=== PATIENT | male | born 1955 | race Caucasian/White ===

== ENCOUNTER 2016-12-20 23:29 | Inpatient (IN) ==
[2016-12-20] MEDS ORDERED: 0.9 % Sodium Chloride 500 ML IVC ONE (23:38)
[2016-12-20] MEDS ORDERED: Ondansetron 4 MG/2 ML VIAL IVP ONE (23:39)
[2016-12-20] MEDS ORDERED: *HR* HYDROmorphone (PF) 1 MG/ML SYRINGE IVP ONE (23:39)
--- NOTE | 2016-12-20 23:40 | Emergency Department Note ---
Disposition Clinical Impression: Combative behavior, Mood disorder, Altered mental status Abdominal pain Qualifiers: Abdominal location: generalized Qualified Code(s): R10.84 - Generalized abdominal pain Alcohol intoxication Qualifiers: Complication of substance-induced condition: uncomplicated Qualified Code(s): F10.120 - Alcohol abuse with intoxication, uncomplicated Disposition: Admitted As Inpatient Condition: Fair Time of Disposition: 03:30 Abdominal Pain HPI - General Stated Complaint: ETOH, R knee pain Time Seen by Provider: 12/20/16 23:35 Nursing Notes Reviewed: Yes Vital Signs Reviewed: Yes - History of Present Illness HPI Narrative: 61-year-old male presented initially with abdominal pain, patient was very loud and angry yelling, stating that he is really triggered his pain. Per EMS brought him in, he had not had any pain or complaints he was initially seen at his right leg hurt, and started complaining of abdominal pain 3 minutes prior to ED arrival. The patient has a history of small bowel obstruction on records review. Also multiple psychiatric issues. The patient then was very loud and angry and agitated in the ER, threatening violence and threatening self-harm, he is transported to the psychiatric side, he proceeded to strip naked, call our nurses and staff, threatening violence Pt Subjective Complaint: abdominal pain Location: diffuse Pain Scale: 10 Quality: cramping, stabbing Radiation: none Improves with: nothing Worsens with: nothing Context: other (hx of SBO, drinking) Associated symptoms: Reports: denies other symptoms Treatments prior to arrival: none - Related Data Previous Rx's Medication Instructions Recorded Acetaminophen/Butalbital/Caffe 1 each PO Q6HR PRN 30 Days 10/04/16 [Fioricet] Aspirin 81 mg PO DAILY 30 Days 10/04/16 Chlordiazepoxide [Librium] 25 mg PO QID 7 Days 10/04/16 Folic Acid 1 mg PO DAILY #30 tablet 10/04/16 Gabapentin [Neurontin] 300 mg PO TID #90 capsule 10/04/16 HydrOXYzine Pamoate 25 - 50 mg PO Q6HR PRN #20 capsule 10/04/16 LORazepam [Lorazepam] 2 mg PO Q4H PRN 7 Days 10/04/16 Lipase/Protease/Amylase [Creon Dr 6 each PO TID 30 Days 10/04/16 6,000 Units Capsule] Quetiapine Fumarate [Seroquel] 200 mg PO HS 30 Days 10/04/16 Thiamine (B-1) [Vitamin B-1] 100 mg PO DAILY #30 tablet 10/04/16 Allergies Allergy/AdvReac Type Severity Reaction Status Date / Time No Known Allergies Allergy Verified 10/12/16 03:54 Limitations: ROS unobtainable due to patients medical condition (Agitated and combative, review of systems was not able to be obtained prior) Cardiovascular: Denies: chest pain Gastrointestinal: Reports: abdominal pain Abdominal Pain PMH - Past Medical History Medical history: Reports: COPD, coronary artery disease, CVA, hyperlipidemia, hypertension, myocardial infarction, TIA, other Male Surgical History: Reports: herniorrhaphy, other Psychiatric history: Reports: anxiety, bipolar, depression, previous psychiatric hospitalization - Social History Smoking status: Current every day smoker Alcohol use: Reports: heavy, recent Drug use: Reports: none, cocaine, marijuana, methamphetamine Physical Exam Constitutional: Presents, agitated and combative patient Resp: Tachypneic CTA bilaterally, no resp distress CV: RRR, no m/g/r GI: Multiple postsurgical changes, abdomen is diffusely tender to palpation which is very distractible Back: normal inspection, no tenderness to palpation Neuro: A&O3, no gross motor or sensory deficits bilaterally MSK: normal inspection, bilateral UE and LE with normal ROM Psych: Agitative, aggressive, threatening suicidal ideation. Skin: No rashes, skin warm, dry, intact - General Limitations: altered mental status (Agitated combative) Course Course Narrative: 61 male with abdominal pain complaint, deteriorated rapidly to combativeness anger, is visibly intoxicated, alcohol on breath, patient is yelling and hostile towards staff moved to the behavioral side of the emergency department chest pain workup ordered - Reevaluation(s) Reevaluation #1: B-52 ordered for agitation, patient took off his clothes, was yelling violently at the tach, a pink slip was already ordered by the attending physician Dr. Gutierres, please documentation. Vital Signs Temperature 97.2 F L 12/20/16 23:36 Pulse Rate 106 12/20/16 23:36 Respiratory Rate 18 12/20/16 23:36 Blood Pressure 169/104 12/20/16 23:36 O2 Sat by Pulse Oximetry 99 12/20/16 23:36 Temperature 0 F L 12/21/16 00:05 Pulse Rate 93 12/21/16 03:07 Respiratory Rate 16 12/21/16 03:07 Blood Pressure 131/96 12/21/16 03:07 O2 Sat by Pulse Oximetry 97 12/21/16 03:07 Oxygen Delivery Oxygen Delivery Room Air Abdominal Pain - MDM Narrative Medical decision making narrative: 52-year-old male requiring medical sedation and restraints, both physical and chemical, with a drill Haldol Ativan, and then Geodon this did result in good sedation of the patient, 11 sitter admitted to medicine service for sobriety and then one a evaluation - Lab Data Result diagrams: 12/21/16 01:01 12/21/16 01:01 Lab Results 12/21/16 12/21/16 12/21/16 Range/Units 01:01 01:01 01:01 WBC 5.1 (4.3-11.1) K/mcL RBC 4.74 (4.19-5.50) M/mcL Hgb 11.7 L (12.9-16.9) g/dL Hct 38.6 (37.5-50.1) % MCV 81.4 L (83.0-100.0) fL MCH 24.7 L (28.0-33.3) pg MCHC 30.3 L (31.6-35.5) g/dL RDW 16.9 H (11.5-14.5) % Plt Count 148 (140-400) K/mcL MPV 9.9 (9.4-12.4) fL Immature Gran % 0.2 (0-4) % Seg Neutrophils % 62.5 % Lymphocytes % 30.0 % Monocytes % 5.3 % Eosinophils % 1.6 % Basophils % 0.4 % Neutrophils # 3.2 (1.6-8.9) K/mcL Lymphocytes # 1.5 (0.6-4.6) K/mcL Monocytes # 0.3 (0.0-1.3) K/mcL Eosinophils # 0.1 (0.0-0.6) K/mcL Basophils # 0.0 (0.0-0.2) K/mcL Platelet Estimate Normal (Normal) Immature Plt Fraction 3.0 (1.1-6.1) % Anisocytosis 1+ A (Not Present) PT 11.5 (9.4-12.1) Seconds INR 1.1 APTT 28.6 (26.0-36.0) Seconds Sodium 142 (136-145) mEq/L Potassium 3.2 L (3.5-4.5) mEq/L Chloride 109 (98-109) mEq/L Carbon Dioxide 19 (19-29) mEq/L BUN 16 (8-26) mg/dL Creatinine 0.92 (0.72-1.25) mg/dL Est GFR ( Amer) > 60 (> 60) Est GFR (Non-Af Amer) > 60 (> 60) BUN/Creatinine Ratio 17 (6-26) Glucose 101 H (70-99) mg/dL Calculated Osmolality 295 (280-300) Calcium 8.1 L (8.6-10.8) mg/dL Total Bilirubin 0.4 (0.2-1.2) mg/dL AST 58 H (5-34) Units/L ALT 50 (0-55) Units/L Alkaline Phosphatase 75 (38-126) Units/L Troponin I (0-0.03) ng/mL Serum Total Protein 7.3 (6.0-8.3) g/dL Albumin 3.8 (3.5-5.0) g/dL Globulin 3.5 (2.4-3.5) g/dL Albumin/Globulin Ratio 1.1 (1.1-2.2) Lipase 36 (8-78) Units/L Salicylates (15-30) mg/dL Acetaminophen (10-30) mcg/mL Ethyl Alcohol (0-10) mg/dL 12/21/16 12/21/16 Range/Units 01:01 01:01 WBC (4.3-11.1) K/mcL RBC (4.19-5.50) M/mcL Hgb (12.9-16.9) g/dL Hct (37.5-50.1) % MCV (83.0-100.0) fL MCH (28.0-33.3) pg MCHC (31.6-35.5) g/dL RDW (11.5-14.5) % Plt Count (140-400) K/mcL MPV (9.4-12.4) fL Immature Gran % (0-4) % Seg Neutrophils % % Lymphocytes % % Monocytes % % Eosinophils % % Basophils % % Neutrophils # (1.6-8.9) K/mcL Lymphocytes # (0.6-4.6) K/mcL Monocytes # (0.0-1.3) K/mcL Eosinophils # (0.0-0.6) K/mcL Basophils # (0.0-0.2) K/mcL Platelet Estimate (Normal) Immature Plt Fraction (1.1-6.1) % Anisocytosis (Not Present) PT (9.4-12.1) Seconds INR APTT (26.0-36.0) Seconds Sodium (136-145) mEq/L Potassium (3.5-4.5) mEq/L Chloride (98-109) mEq/L Carbon Dioxide (19-29) mEq/L BUN (8-26) mg/dL Creatinine (0.72-1.25) mg/dL Est GFR ( Amer) (> 60) Est GFR (Non-Af Amer) (> 60) BUN/Creatinine Ratio (6-26) Glucose (70-99) mg/dL Calculated Osmolality (280-300) Calcium (8.6-10.8) mg/dL Total Bilirubin (0.2-1.2) mg/dL AST (5-34) Units/L ALT (0-55) Units/L Alkaline Phosphatase (38-126) Units/L Troponin I 0.01 (0-0.03) ng/mL Serum Total Protein (6.0-8.3) g/dL Albumin (3.5-5.0) g/dL Globulin (2.4-3.5) g/dL Albumin/Globulin Ratio (1.1-2.2) Lipase (8-78) Units/L Salicylates < 5.0 L (15-30) mg/dL Acetaminophen < 1.0 L (10-30) mcg/mL Ethyl Alcohol 279 H (0-10) mg/dL Critical Care Time Critical Care Time: Yes Total Critical Care Time: 40 Attestation: Critical care performed: Time is exclusive of separately billable procedures. Time includes: direct patient care, patient reassessment, coordination of patient care, interpretation of data (laboratory data, radiology data, and respiratory data), review of patient's medical records, medical consultation and documentation of patient care. Procedures included in critical care time: Procedures excluded from critical care time: Attestation Statement - Attestation Attestation: I, Pito Gutierres MD, personally performed a history and physical exam of the patient and discussed their management with the resident. I reviewed the resident's note and agree with the documented findings, medical decision making , and plan of care. 61-year-old male presents to the emergency department by EMS with a complaint of sudden onset of severe epigastric abdominal pain shortly prior to arrival. Patient had been drinking alcohol. This patient is well known and is seen here frequently. On arrival patient is yelling and screaming and uncooperative. Odor of alcohol on breath and he appears intoxicated. Patient later became more abusive and uncooperative and threatening staff. Patient also making suicidal statements and threats. On examination patient is a well-developed well-nourished male who appears intoxicated. He is awake and alert. No cyanosis or diaphoresis. Chest is nontender to palpation. Breath sounds are equal bilaterally. Heart regular with a mild tachycardia. Abdomen soft with normal bowel sounds. Epigastric tenderness. Labs reviewed and unremarkable other then alcohol level of 279. Troponin normal. No acute changes on EKG. Obstruction series showed a nonspecific nonobstructive bowel gas pattern. Patient had to be physically restrained and received chemical sedation. The hospitalist, Dr. Carranza, was consulted and accepted admission of the patient.
[2016-12-21] MEDS ORDERED: *HR* LORazepam 2 MG/ML VIAL ONE (00:02)
[2016-12-21] MEDS ORDERED: *HR* LORazepam 2 MG/ML VIAL IM ONE (00:02)
[2016-12-21] MEDS ORDERED: Haloperidol Lactate 5 MG/ML VIAL ONE (00:02)
[2016-12-21] MEDS ORDERED: Haloperidol Lactate 5 MG/ML VIAL IM ONE (00:02)
[2016-12-21] MEDS ORDERED: Ziprasidone injection 20 MG/ML VIAL IM ONE ×2 (00:19→00:21)
[2016-12-21 01:09] LABS: Basophils % 0.4 %; Eosinophils # 0.1 K/mcL (0.0-0.6); Eosinophils % 1.6 %; Hematocrit 38.6 % (37.5-50.1); Hemoglobin 11.7 g/dL (12.9-16.9); Immature Granulocytes % 0.2 % (0-4); Lymphocytes # 1.5 K/mcL (0.6-4.6); Mean Corpuscular HGB Conc 30.3 g/dL (31.6-35.5); Mean Corpuscular Hemoglobin 24.7 pg (28.0-33.3); Mean Corpuscular Volume 81.4 fL (83.0-100.0); Mean Platelet Volume 9.9 fL (9.4-12.4); Monocytes # 0.3 K/mcL (0.0-1.3); Monocytes % 5.3 %; Neutrophils # 3.2 K/mcL (1.6-8.9); Platelet Count 148 K/mcL (140-400); Red Blood Count 4.74 M/mcL (4.19-5.50); Red Cell Distribution Width 16.9 % (11.5-14.5); Segmented Neutrophils % 62.5 %
[2016-12-21 01:16] LABS: INR 1.1; Prothrombin Time 11.5 Seconds (9.4-12.1)
[2016-12-21 01:19] LABS: Activated Partial Thrombo Time 28.6 Seconds (26.0-36.0)
[2016-12-21 01:26] LABS: Acetaminophen < 1.0 mcg/mL (10-30); Alanine Aminotransferase 50 Units/L (0-55); Albumin 3.8 g/dL (3.5-5.0); Albumin/Globulin Ratio 1.1 (1.1-2.2); Alkaline Phosphatase 75 Units/L (38-126); Aspartate Amino Transferase 58 Units/L (5-34); BUN/Creatinine Ratio 17 (6-26); Bilirubin,Total 0.4 mg/dL (0.2-1.2); Blood Urea Nitrogen 16 mg/dL (8-26); Calcium 8.1 mg/dL (8.6-10.8); Carbon Dioxide 19 mEq/L (19-29); Chloride 109 mEq/L (98-109); Ethanol 279 mg/dL (0-10); Globulin 3.5 g/dL (2.4-3.5); Glucose 101 mg/dL (70-99); Lipase 36 Units/L (8-78); Osmolality,Calculated 295 (280-300); Potassium 3.2 mEq/L (3.5-4.5); Salicylate < 5.0 mg/dL (15-30); Sodium 142 mEq/L (136-145); Total Protein 7.3 g/dL (6.0-8.3); eGFR For African Americans > 60 (> 60); eGFR For Non-African Americans > 60 (> 60)
[2016-12-21 01:30] LABS: Anisocytosis 1+ (Not Present)
[2016-12-21 01:32] LABS: Platelet Estimate Normal (Normal)
[2016-12-21] MEDS ORDERED: *HR* LORazepam 2 MG/ML VIAL IVP PRN (04:57)
[2016-12-21] MEDS ORDERED: Benzonatate 100 MG CAPSULE PO PRN (04:57)
[2016-12-21] MEDS ORDERED: Ipratropium/Albuterol Neb 3 ML IH PRN (04:57)
[2016-12-21] MEDS ORDERED: Haloperidol Lactate 5 MG/ML VIAL IVP PRN (04:57)
[2016-12-21] MEDS ORDERED: Naloxone 0.4 MG/ML INJ IVP PRN (04:57)
[2016-12-21] MEDS ORDERED: Mag Hydrox/Al Hydrox/Simeth 30 ML UDC PO PRN (04:57)
[2016-12-21] MEDS ORDERED: *HR* Promethazine 25 MG/ML VIAL IVP PRN ×2 (04:57)
[2016-12-21] MEDS ORDERED: *HR* Morphine 2 MG/ML SYRINGE IVP PRN (04:57)
[2016-12-21] MEDS ORDERED: 0.9 % Sodium Chloride 1,000 ML IVC SCH (05:00)
[2016-12-21] MEDS ORDERED: Potassium Chloride 40 MEQ, Lidocaine 1% 2 ML in D5% in Water 500 ML IVPB ONE (05:17)
[2016-12-21] MEDS: *HR* Heparin 5,000 UNIT/ML VIAL SQ SCH ×3 (05:59→23:04)
[2016-12-21 07:35] LABS: Hemoglobin A1C 4.9 %
[2016-12-21 08:11] LABS: Thyroid Stimulating Hormone 1.077 mcIU/mL (0.350-4.840)
[2016-12-21] MEDS: Vitamin B Complex/Vit C/Vit E 1 EACH TABLET PO SCH (08:56)
[2016-12-21] MEDS: Folic Acid 1 MG TABLET PO SCH (08:56)
[2016-12-21] MEDS: Gabapentin 300 MG CAPSULE PO SCH ×3 (08:56→21:44)
[2016-12-21] MEDS: Aspirin 81 MG TAB.CHEW PO SCH (08:56)
[2016-12-21] MEDS: Famotidine 20 MG TABLET PO SCH ×2 (08:56→21:43)
[2016-12-21] MEDS: Thiamine (B-1) 100 MG TABLET PO SCH (08:56)
[2016-12-21] MEDS: *HR* OxyCODONE Immed Rel 5 MG TABLET PO PRN (09:06)
[2016-12-21] MEDS: Thiamine (B-1) 100 MG in D5% in Water 50 ML IVPB SCH (11:28)
[2016-12-21] MEDS: Nicotine 21 MG PATCH.TD24 TD SCH (11:28)
--- NOTE | 2016-12-21 12:44 | Consult Note ---
Date of Encounter: 12/21/16 Time of Encounter: 12:40 Assessment & Recommendation (1) Alcohol dependence Current visit: Yes Status: Acute Assessment & Recommendation: Patient does endorse of having extensive history of alcohol dependence. He is going through some withdrawal and will require detox on the MedSurg floor. Patient is currently denying any suicidal or homicidal ideations. He is an established patient at [facility]. He is planning on calling [facility] tomorrow and setting up rehabilitation treatment appointments for himself. At this point there is no further psychiatric intervention needed. Qualifiers: Substance use status: uncomplicated Qualified Code(s): F10.20 - Alcohol dependence, uncomplicated (2) Alcohol intoxication Current visit: Yes Status: Acute Assessment & Recommendation: Patient is sobered up and cleared and coherent and denies any suicidal or homicidal ideations. Counseled extensively regarding his alcohol use and his psychological and physiological impact and is encouraged to receive outpatient or inpatient rehabilitation treatment from the [facility] as patient is established client over there Qualifiers: Complication of substance-induced condition: uncomplicated Qualified Code(s ): F10.120 - Alcohol abuse with intoxication, uncomplicated (3) Bipolar disorder in remission Current visit: Yes Status: Acute Assessment & Recommendation: Patient bipolar disorders symptoms are under good control. Patient is denying any depression or sulaiman. He is hopeful positive and future oriented. He is denying any suicidal homicidal ideations. He does have a psychiatrist at the [facility] and will continue with his bipolar treatment over there. No further psychiatric intervention is needed. History of Present Illness Patient: known to practice within the last 3 years Requesting Physician: Natty Yuan MD Reason for consult: To assess patient for suicidality History of present illness: Mr. Chen is a 61 year old male He was admitted on a MedSurg floor after he showed up in the emergency department in an intoxicated state. A psychiatry consult was given to assess patient for suicidality since he reported suicidal ideation when he presented in the emergency department and also because patient is noted to have a diagnosis of bipolar disorder. Patient is known to us from prior hospitalization which was last year. He is established patient at the [facility]. He is diagnosed with bipolar disorder and is receiving treatment from the [facility]. Patient also has extensive history of alcohol abuse and dependence. He reported that he has been drinking regularly. He does not remember last minute and reporting suicidal ideations. Upon interview today he is denying any suicidal ideation he appears to be cooperative and in good spirits. He does have some withdrawal symptoms. He is denying any depressive symptoms he feels he is fairly stable on his medications. He did not does share her desire of receiving alcohol treatment from [facility]. Patient reported that he has the phone numbers to call and set up outpatient rehabilitation for himself or alcohol related issues at the [facility]. He is currently denying any suicidal or homicidal ideations she does not appear to be manic or psychotic. He is future oriented and is able to verbalize a safety plan. CC: Natty Yuan MD Past Med Surg Social Fam HX - Past Medical History Medical history: COPD, coronary artery disease, CVA, hyperlipidemia, hypertension, myocardial infarction, TIA, other - Past Psychiatric History Psychiatric history: Reports: bipolar, previous psychiatric hospitalization Family psychiatric history: Yes Family Psychiatric History Details: Aunt suffers from bipolar disorder Family History of Suicide: None - Past Surgical History Surgical History: appendectomy, cholecystectomy, other (Partial Pancreatectomy, surgeries for partial bowel resection, PEG insertion, temporary ileostomy and reversal.) - Social History Smoking Status: Current every day smoker Smokeless Tobacco Status: No Alcohol use: heavy, recent Drug use: none Additional substance use detail: Patient does have a history of drug use cocaine marijuana and amphetamine in the past Occupational status: disabled Current living situation: Home Activity Level: Independent ambulation Recent Out of Country Travel Within the Last 8 Weeks: No Exposure or Possible Exposure to Illness During Travel: No - Family History Mother Family Member Ethnicity: Non- Living Status: Still Living Hx Family Cardiac Disorders: Yes (htn) Hx Family Respiratory Disorders: No Hx Family Cancer: Yes (Colon) Hx Family GI Disorders: No Hx Family Endocrine Disorder: No Hx Family Neuromuscular Disorders: Yes (Neuropathy) Hx Family Neurologic Disorders: No Hx Family HEENT Disorders: No Hx Family Autoimmune Disorders: No Father Living Status: Medications & Allergies Acetaminophen/Butalbital/Caffe [Fioricet] 1 each PO Q6HR PRN 30 Days 10/04/16 [ Rx] Aspirin 81 mg PO DAILY 30 Days 10/04/16 [Rx] Chlordiazepoxide [Librium] 25 mg PO QID 7 Days 10/04/16 [Rx] Folic Acid 1 mg PO DAILY #30 tablet 10/04/16 [Rx] Gabapentin [Neurontin] 300 mg PO TID #90 capsule 10/04/16 [Rx] HydrOXYzine Pamoate 25 - 50 mg PO Q6HR PRN #20 capsule 10/04/16 [Rx] LORazepam [Lorazepam] 2 mg PO Q4H PRN 7 Days 10/04/16 [Rx] Lipase/Protease/Amylase [Creon Dr 6,000 Units Capsule] 6 each PO TID 30 Days [Rx] Quetiapine Fumarate [Seroquel] 200 mg PO HS 30 Days 10/04/16 [Rx] Thiamine (B-1) [Vitamin B-1] 100 mg PO DAILY #30 tablet 10/04/16 [Rx] Allergies No Known Allergies Allergy (Verified 10/12/16 03:54) Mental Status Exam Patient orientation: Yes Person, Yes Time, Yes Place Level of alertness: Alert Patient appearance: Appropriate, Well Groomed Behavior: calm, cooperative Psychomotor activity: Normal Eye contact: Maintains Eye Contact Mood description: Anxious Affect description: congruent with mood, full range Speech pattern: Normal rate, Normal rhythm, Normal tone Speech volume: Normal Thought process: Linear, Goal Oriented Thought content: No Suicidal ideation, No Homicidal ideation, No Overt delusions Perceptual disturbances: No Auditory hallucinations, No Visual hallucinations Attention span: Capable of Focused Attention Memory description: Grossly Intact Patient reliability: Reliable Historian Intelligence estimate: Average Judgment: Limited Insight: Partial Results - Vital Signs Vital signs: Temp Pulse Resp BP Pulse Ox 97.9 F 94 16 166/93 94 L 12/21/16 08:45 12/21/16 08:45 12/21/16 08:45 12/21/16 08:45 12/21/16 09:00 - Labs Labs: Laboratory Last Values WBC 5.1 K/mcL (4.3-11.1) 12/21/16 01:01 RBC 4.74 M/mcL (4.19-5.50) 12/21/16 01:01 Hgb 11.7 g/dL (12.9-16.9) L 12/21/16 01:01 Hct 38.6 % (37.5-50.1) 12/21/16 01:01 MCV 81.4 fL (83.0-100.0) L 12/21/16 01:01 MCH 24.7 pg (28.0-33.3) L 12/21/16 01:01 MCHC 30.3 g/dL (31.6-35.5) L 12/21/16 01:01 RDW 16.9 % (11.5-14.5) H 12/21/16 01:01 Plt Count 148 K/mcL (140-400) 12/21/16 01:01 MPV 9.9 fL (9.4-12.4) 12/21/16 01:01 Immature Gran % 0.2 % (0-4) 12/21/16 01:01 Seg Neutrophils % 62.5 % 12/21/16 01:01 Lymphocytes % 30.0 % 12/21/16 01:01 Monocytes % 5.3 % 12/21/16 01:01 Eosinophils % 1.6 % 12/21/16 01:01 Basophils % 0.4 % 12/21/16 01:01 Neutrophils # 3.2 K/mcL (1.6-8.9) 12/21/16 01:01 Lymphocytes # 1.5 K/mcL (0.6-4.6) 12/21/16 01:01 Monocytes # 0.3 K/mcL (0.0-1.3) 12/21/16 01:01 Eosinophils # 0.1 K/mcL (0.0-0.6) 12/21/16 01:01 Basophils # 0.0 K/mcL (0.0-0.2) 12/21/16 01:01 Platelet Estimate Normal (Normal) 12/21/16 01:01 Immature Plt Fraction 3.0 % (1.1-6.1) 12/21/16 01:01 Anisocytosis 1+ (Not Present) A 12/21/16 01:01 PT 11.5 Seconds (9.4-12.1) 12/21/16 01:01 INR 1.1 12/21/16 01:01 APTT 28.6 Seconds (26.0-36.0) 12/21/16 01:01 Sodium 142 mEq/L (136-145) 12/21/16 01:01 Potassium 3.2 mEq/L (3.5-4.5) L 12/21/16 01:01 Chloride 109 mEq/L (98-109) 12/21/16 01:01 Carbon Dioxide 19 mEq/L (19-29) 12/21/16 01:01 BUN 16 mg/dL (8-26) 12/21/16 01:01 Creatinine 0.92 mg/dL (0.72-1.25) 12/21/16 01:01 Est GFR ( Amer) > 60 (> 60) 12/21/16 01:01 Est GFR (Non-Af Amer) > 60 (> 60) 12/21/16 01:01 BUN/Creatinine Ratio 17 (6-26) 12/21/16 01:01 Glucose 101 mg/dL (70-99) H 12/21/16 01:01 Est Mean Plasma Glucose 94 mg/dl 12/21/16 07:05 Hemoglobin A1c 4.9 % (-5.6) 12/21/16 07:05 Calculated Osmolality 295 (280-300) 12/21/16 01:01 Calcium 8.1 mg/dL (8.6-10.8) L 12/21/16 01:01 Total Bilirubin 0.4 mg/dL (0.2-1.2) 12/21/16 01:01 AST 58 Units/L (5-34) H 12/21/16 01:01 ALT 50 Units/L (0-55) 12/21/16 01:01 Alkaline Phosphatase 75 Units/L (38-126) 12/21/16 01:01 Ammonia 30 mcmol/L (18-72) 12/21/16 07:05 Troponin I 0.01 ng/mL (0-0.03) 12/21/16 01:01 Serum Total Protein 7.3 g/dL (6.0-8.3) 12/21/16 01:01 Albumin 3.8 g/dL (3.5-5.0) 12/21/16 01:01 Globulin 3.5 g/dL (2.4-3.5) 12/21/16 01:01 Albumin/Globulin Ratio 1.1 (1.1-2.2) 12/21/16 01:01 Amylase 66 Units/L (25-125) 12/21/16 07:05 Lipase 131 Units/L (8-78) H 12/21/16 07:05 TSH 1.077 mcIU/mL (0.350-4.840) 12/21/16 07:05 Salicylates < 5.0 mg/dL (15-30) L 12/21/16 01:01 Acetaminophen < 1.0 mcg/mL (10-30) L 12/21/16 01:01 Ethyl Alcohol 279 mg/dL (0-10) H 12/21/16 01:01 Consult Discharge Plan - Plan
[2016-12-21] MEDS: *HR* LORazepam 2 MG/ML VIAL IVP PRN ×2 (13:03→15:14)
[2016-12-21] MEDS ORDERED: MVI, adult with vitamin K 10 ML in 0.9 % Sodium Chloride 1,000 ML IVC ONE (14:03)
--- NOTE | 2016-12-21 14:09 | Internal Med Progress Note ---
Date of Encounter: 12/21/16 Time of Encounter: 14:07 - Assessment and plan (1) Alcohol intoxication Current Visit: Yes Status: Acute Assessment and plan: Mental status at baseline Concern for alcohol withdrawal continue CIWA monitoring Ativan as per CIWA score continue IV fluids (banana bag) Folate and Thiamine Extensive alcohol cessation counseling provided. Patient willing to speak to medical social worker in regards to possible available options for detox programs correction worker eval requested Psychiatry eval appreciated Qualifiers: Complication of substance-induced condition: uncomplicated Qualified Code(s ): F10.120 - Alcohol abuse with intoxication, uncomplicated (2) Alcohol dependence Current Visit: Yes Status: Acute Assessment and plan: plan as listed above Qualifiers: Substance use status: uncomplicated Qualified Code(s): F10.20 - Alcohol dependence, uncomplicated (3) HTN (hypertension) Current Visit: No Status: Chronic Assessment and plan: Noted to have history of hypertension but not on any medications Will start Lisinopril 5mg PO qd Hydralazine 10mg IV q6h prn SBP>150 will continue to closely monitor BP Qualifiers: Hypertension type: essential hypertension Qualified Code(s): I10 - Essential (primary) hypertension (4) Hypokalemia Current Visit: No Status: Acute Assessment and plan: K supplemented will continue to monitor electrolytes and replace as needed (5) COPD (chronic obstructive pulmonary disease) Current Visit: No Status: Chronic Assessment and plan: Not in acute exacerbation will continue bronchodilator support O2 supplementation as needed Qualifiers: COPD type: chronic bronchitis Chronic bronchitis type: unspecified Qualified Code(s): J42 - Unspecified chronic bronchitis (6) Tobacco abuse Current Visit: No Status: Chronic Assessment and plan: Smoking cessation counselling provided patient not ready to quit at this time (7) Bipolar disorder in remission Current Visit: Yes Status: Chronic (8) DVT prophylaxis Current Visit: Yes Status: Acute Assessment and plan: Heparin SQ - Subjective Interval history: Patient is a 61-year-old who was admitted for evaluation of suicidal ideation status post alcohol intoxication. Patient was noted to verbally state that he wanted to hurt himself when he was intoxicated which prompted his admission. At this time, he is resting in bed and appears to be going through alcohol withdrawal. He states he has been trying to quit for years but is not able to get into any rehab program at the [place]. He is interested in learning about the inpatient rehab programs but states he is not 100% sure if he will be able to go to one. At this time he denies any suicidal/homicidal ideation. No pain or sob reported at this time. However noted to have tremors in bilateral upper extremities. - Constitutional Vitals: Temp Pulse Resp BP Pulse Ox 98.4 F 88 16 177/91 100 12/21/16 12:44 12/21/16 12:44 12/21/16 12:44 12/21/16 12:44 12/21/16 12:44 General appearance: Present: disheveled, A&O X 3, no acute distress, answers questions appropriately - Head Head exam: Present: atraumatic, normocephalic - Respiratory Respiratory exam: Present: CTAB. Absent: accessory muscle use, rales, rhonchi, wheezes - Cardiovascular Cardiovascular exam: Present: RRR, +S1, +S2. Absent: diastolic murmur, gallop, rubs, systolic murmur - GI/Abdominal GI/Abdominal exam: Present: normal bowel sounds, soft, no peritoneal signs. Absent: distended, tenderness - Extremities Exam Extremities exam: Present: pedal edema, warm. Absent: calf tenderness, tenderness, radial pulses palpable and symetrical - Neurological Exam Neurological exam: Present: alert, oriented X3 - Psychiatric Psychiatric exam: Present: normal affect, normal mood. Absent: suicidal ideation Internal Medicine: Result - Labs CBC & Chem 7: 12/21/16 01:01 12/21/16 01:01 - ABG Interpretation ABG results: PT/INR, D-dimer PT 11.5 Seconds (9.4-12.1) 12/21/16 01:01 Consult Discharge Plan - Plan Referrals: NO,PCP [Primary Care Provider] -
[2016-12-21] MEDS: MVI, adult with vitamin K 10 ML in 0.9 % Sodium Chloride 1,000 ML IVC SCH ×2 (15:19→23:00)
[2016-12-21] MEDS: Acetaminophen 325 MG TABLET PO PRN (21:43)
[2016-12-22] MEDS: *HR* OxyCODONE Immed Rel 5 MG TABLET PO PRN ×3 (01:59→18:52)
[2016-12-22 04:44] LABS: Basophils % 0.3 %; Eosinophils # 0.1 K/mcL (0.0-0.6); Eosinophils % 1.5 %; Hematocrit 36.6 % (37.5-50.1); Hemoglobin 11.6 g/dL (12.9-16.9); Immature Granulocytes % 0.3 % (0-4); Immature Platelets 3.6 % (1.1-6.1); Lymphocytes # 0.9 K/mcL (0.6-4.6); Lymphocytes % 27.8 %; Mean Corpuscular HGB Conc 31.7 g/dL (31.6-35.5); Mean Corpuscular Hemoglobin 25.7 pg (28.0-33.3); Mean Platelet Volume 11.4 fL (9.4-12.4); Monocytes # 0.3 K/mcL (0.0-1.3); Monocytes % 7.8 %; Neutrophils # 2.1 K/mcL (1.6-8.9); Platelet Count 107 K/mcL (140-400); Red Blood Count 4.52 M/mcL (4.19-5.50); Red Cell Distribution Width 16.9 % (11.5-14.5); Segmented Neutrophils % 62.3 %
[2016-12-22 05:01] LABS: BUN/Creatinine Ratio 13 (6-26); Blood Urea Nitrogen 11 mg/dL (8-26); Calcium 8.4 mg/dL (8.6-10.8); Carbon Dioxide 24 mEq/L (19-29); Chloride 106 mEq/L (98-109); Glucose 96 mg/dL (70-99); Magnesium 1.6 mg/dL (1.6-2.6); Osmolality,Calculated 287 (280-300); Phosphorous 3.2 mg/dL (2.3-4.7); Potassium 3.7 mEq/L (3.5-4.5); Sodium 139 mEq/L (136-145); eGFR For African Americans > 60 (> 60); eGFR For Non-African Americans > 60 (> 60)
[2016-12-22] MEDS: Acetaminophen 325 MG TABLET PO PRN (06:26)
[2016-12-22] MEDS: *HR* Heparin 5,000 UNIT/ML VIAL SQ SCH ×3 (06:27→21:48)
[2016-12-22 07:16] LABS: Amphetamine Screen,Urine Negative ng/mL (Cutoff=1000); Barbiturate Screen,Urine Negative ng/mL (Cutoff=200); Benzodiazepines Screen,Urine Negative ng/mL (Cutoff=200); Cannabinoid Screen,Urine Negative ng/mL (Cutoff = 50); Cocaine Screen,Urine Negative ng/mL (Cutoff= 300); Opiate Screen,Urine Negative ng/mL (Cutoff=300); Phencyclidine Screen,Urine Negative ng/mL (Cutoff=25)
[2016-12-22 07:36] LABS: Bilirubin,Urine Negative (Negative); Blood,Urine Negative (Negative); Clarity,Urine Clear (Clear); Color,Urine Yellow (Yellow); Glucose,Urine (UA) Normal (Normal); Ketones,Urine Negative (Negative); Leukocyte Esterase,Urine Negative (Negative); Nitrite,Urine Negative (Negative); Protein,Urine Negative (Neg-Trace); Specific Gravity,Urine 1.009 (1.010-1.025); Urobilinogen,Urine Normal (Normal)
[2016-12-22] MEDS: Gabapentin 300 MG CAPSULE PO SCH ×4 (08:37→21:05)
[2016-12-22] MEDS: Famotidine 20 MG TABLET PO SCH ×2 (08:37→21:05)
[2016-12-22] MEDS: Nicotine 21 MG PATCH.TD24 TD SCH (08:40)
[2016-12-22] MEDS: Thiamine (B-1) 100 MG TABLET PO SCH ×2 (08:40→18:27)
[2016-12-22] MEDS: Aspirin 81 MG TAB.CHEW PO SCH (08:40)
[2016-12-22] MEDS: Vitamin B Complex/Vit C/Vit E 1 EACH TABLET PO SCH (08:40)
[2016-12-22] MEDS: Folic Acid 1 MG TABLET PO SCH (08:40)
[2016-12-22] MEDS: *HR* LORazepam 2 MG/ML VIAL IVP PRN ×4 (08:41→20:59)
[2016-12-22] MEDS: MVI, adult with vitamin K 10 ML in 0.9 % Sodium Chloride 1,000 ML IVC SCH (08:54)
[2016-12-22] MEDS: Thiamine (B-1) 100 MG in D5% in Water 50 ML IVPB SCH (10:46)
[2016-12-22] MEDS: amLODIPine 5 MG TABLET PO SCH (13:31)
[2016-12-22] MEDS: traZODone 50 MG TABLET PO SCH ×2 (13:31→21:04)
[2016-12-22] MEDS ORDERED: MVI, adult with vitamin K 10 ML in 0.9 % Sodium Chloride 1,000 ML IVC SCH (16:00)
--- NOTE | 2016-12-22 16:00 | Internal Med Progress Note ---
Date of Encounter: 12/22/16 Time of Encounter: 15:00 - Assessment and plan (1) Alcohol intoxication Current Visit: Yes Status: Acute Assessment and plan: Mental status at baseline Concern for alcohol withdrawal continue CIWA monitoring Ativan as per CIWA score continue IV fluids (banana bag) Folate and Thiamine Extensive alcohol cessation counseling provided. Patient willing to speak to social work manager in regards to possible available options for detox programs draw off worker eval requested Psychiatry eval appreciated Qualifiers: Complication of substance-induced condition: uncomplicated Qualified Code(s ): F10.120 - Alcohol abuse with intoxication, uncomplicated (2) Alcohol dependence Current Visit: Yes Status: Acute Assessment and plan: plan as listed above Qualifiers: Substance use status: uncomplicated Qualified Code(s): F10.20 - Alcohol dependence, uncomplicated (3) HTN (hypertension) Current Visit: No Status: Chronic Assessment and plan: Restarted home dose of Amlodipine Increased Metoprolol to 50mg PO q12h Increased Lisinopril to 10mg PO qd Hydralazine 10mg IVP q6h prn SBP>150 Qualifiers: Hypertension type: essential hypertension Qualified Code(s): I10 - Essential (primary) hypertension (4) Hypokalemia Current Visit: No Status: Acute Assessment and plan: Resolved will continue to monitor electrolytes and replace as needed (5) COPD (chronic obstructive pulmonary disease) Current Visit: No Status: Chronic Assessment and plan: Not in acute exacerbation will continue bronchodilator support O2 supplementation as needed Qualifiers: COPD type: chronic bronchitis Chronic bronchitis type: unspecified Qualified Code(s): J42 - Unspecified chronic bronchitis (6) Tobacco abuse Current Visit: No Status: Chronic Assessment and plan: Smoking cessation counselling provided patient not ready to quit at this time (7) Bipolar disorder in remission Current Visit: Yes Status: Chronic (8) DVT prophylaxis Current Visit: Yes Status: Acute Assessment and plan: Heparin SQ - Subjective Interval history: Patient is a 61-year-old who was admitted for evaluation of suicidal ideation status post alcohol intoxication. Patient was noted to verbally state that he wanted to hurt himself when he was intoxicated which prompted his admission. Patient seen and examined, resting in chair. Patient noted to have alcohol withdrawal symptoms starting yesterday requiring Ativan. Symptoms improved today however still continues to require Ativan, however, dosages required today have decreased from the prior day. Reports of taking Imitrex for his headache and states he has been chronically having elevated blood pressure and [facility] As per the social work manager, during patient's last hospitalization, [facility], however patient never followed up. Patient gets agitated when confronted about his noncompliance. - Constitutional Vitals: Temp Pulse Resp BP Pulse Ox 97.5 F L 93 16 175/103 98 12/22/16 11:52 12/22/16 15:35 12/22/16 15:35 12/22/16 15:35 12/22/16 15:35 General appearance: Present: disheveled, A&O X 3, morbidly obese, no acute distress, answers questions appropriately - Head Head exam: Present: atraumatic, normocephalic - Eye Eye exam: Present: PERRL, conjuntiva pink, sclera anicteric - Respiratory Respiratory exam: Present: CTAB. Absent: accessory muscle use, rales, rhonchi, wheezes - Cardiovascular Cardiovascular exam: Present: RRR, +S1, +S2 - GI/Abdominal GI/Abdominal exam: Present: normal bowel sounds, soft. Absent: tenderness - Extremities Exam Extremities exam: Present: warm, radial pulses palpable and symetrical. Absent : calf tenderness, pedal edema - Neurological Exam Neurological exam: Present: alert, oriented X3 - Psychiatric Psychiatric exam: Present: agitated. Absent: suicidal ideation Internal Medicine: Result - Labs CBC & Chem 7: 12/22/16 04:14 12/22/16 04:14 Labs: Short CBC 12/22/16 Range/Units 04:14 WBC 3.4 L (4.3-11.1) K/mcL Hgb 11.6 L (12.9-16.9) g/dL Hct 36.6 L (37.5-50.1) % Plt Count 107 L (140-400) K/mcL Neutrophils # 2.1 (1.6-8.9) K/mcL BMP 12/22/16 04:14 Sodium 139 Potassium 3.7 Chloride 106 Carbon Dioxide 24 BUN 11 Creatinine 0.88 Glucose 96 Calcium 8.4 L Urine 12/22/16 Range/Units 06:30 Urine Color Yellow (Yellow) Urine Clarity Clear (Clear) Urine pH 7.0 (5.0-8.0) pH Units Ur Specific [place] 1.009 L (1.010-1.025) Urine Protein Negative (Neg-Trace) mg/dL Urine Glucose (UA) Normal (Normal) mg/dL - ABG Interpretation ABG results: PT/INR, D-dimer PT 11.5 Seconds (9.4-12.1) 12/21/16 01:01 Consult Discharge Plan - Plan Referrals: NO,PCP [Primary Care Provider] -
[2016-12-22] MEDS: SUMAtriptan 6 MG/0.5 ML SQ PRN ×2 (16:07→22:39)
--- NOTE | 2016-12-22 16:28 | Electrocardiograph Report ---
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
[2016-12-22] MEDS: Thiamine (B-1) 100 MG, Folic Acid 1 MG, MVI, adult with vitamin K 10 ML in 0.9 % Sodi... IVPB SCH (18:45)
[2016-12-22] MEDS: Budesonide/Formoterol 160/4.5 MDI IH SCH (20:01)
[2016-12-22] MEDS ORDERED: Water for inj. (sterile) 10 ML IV ONE (20:55)
[2016-12-22] MEDS: Magnesium Oxide 400 MG TABLET PO SCH (21:04)
[2016-12-22] MEDS: Divalproex (24 HR) 250 MG TABLET PO SCH (21:05)
[2016-12-22] MEDS: Mirtazapine 15 MG TABLET PO SCH (21:06)
[2016-12-23] MEDS: Thiamine (B-1) 100 MG, Folic Acid 1 MG, MVI, adult with vitamin K 10 ML in 0.9 % Sodi... IVPB SCH (04:08)
[2016-12-23] MEDS: *HR* LORazepam 2 MG/ML VIAL IVP PRN ×4 (04:19→12:48)
[2016-12-23] MEDS: *HR* Heparin 5,000 UNIT/ML VIAL SQ SCH ×3 (04:40→21:51)
[2016-12-23 05:17] LABS: Basophils % 0.2 %; Eosinophils # 0.1 K/mcL (0.0-0.6); Eosinophils % 1.7 %; Hematocrit 37.1 % (37.5-50.1); Hemoglobin 11.8 g/dL (12.9-16.9); Immature Granulocytes % 0.4 % (0-4); Mean Corpuscular HGB Conc 31.8 g/dL (31.6-35.5); Mean Corpuscular Hemoglobin 25.4 pg (28.0-33.3); Mean Corpuscular Volume 79.8 fL (83.0-100.0); Mean Platelet Volume 11.5 fL (9.4-12.4); Monocytes # 0.4 K/mcL (0.0-1.3); Monocytes % 8.3 %; Neutrophils # 3.6 K/mcL (1.6-8.9); Platelet Count 131 K/mcL (140-400); Red Blood Count 4.65 M/mcL (4.19-5.50); Red Cell Distribution Width 17.1 % (11.5-14.5); Segmented Neutrophils % 69.4 %
[2016-12-23 05:30] LABS: BUN/Creatinine Ratio 11 (6-26); Blood Urea Nitrogen 12 mg/dL (8-26); Calcium 8.7 mg/dL (8.6-10.8); Carbon Dioxide 18 mEq/L (19-29); Chloride 104 mEq/L (98-109); Glucose 110 mg/dL (70-99); Magnesium 1.9 mg/dL (1.6-2.6); Osmolality,Calculated 280 (280-300); Phosphorous 3.9 mg/dL (2.3-4.7); Potassium 3.8 mEq/L (3.5-4.5); Sodium 135 mEq/L (136-145); eGFR For African Americans > 60 (> 60); eGFR For Non-African Americans > 60 (> 60)
[2016-12-23] MEDS: Folic Acid 1 MG TABLET PO SCH (08:32)
[2016-12-23] MEDS: Vitamin B Complex/Vit C/Vit E 1 EACH TABLET PO SCH (08:32)
[2016-12-23] MEDS: traZODone 50 MG TABLET PO SCH ×3 (08:32→21:50)
[2016-12-23] MEDS: Magnesium Oxide 400 MG TABLET PO SCH ×2 (08:33→21:50)
[2016-12-23] MEDS: Aspirin 81 MG TAB.CHEW PO SCH (08:33)
[2016-12-23] MEDS: Thiamine (B-1) 100 MG TABLET PO SCH ×2 (08:33→08:34)
[2016-12-23] MEDS: Famotidine 20 MG TABLET PO SCH ×2 (08:33→21:49)
[2016-12-23] MEDS: Gabapentin 300 MG CAPSULE PO SCH ×3 (08:33→21:49)
[2016-12-23] MEDS: amLODIPine 5 MG TABLET PO SCH (08:34)
[2016-12-23] MEDS: Nicotine 21 MG PATCH.TD24 TD SCH (08:34)
[2016-12-23] MEDS: Thiamine (B-1) 100 MG in D5% in Water 50 ML IVPB SCH (08:34)
[2016-12-23] MEDS: *HR* OxyCODONE Immed Rel 5 MG TABLET PO PRN ×3 (08:51→23:24)
[2016-12-23] MEDS ORDERED: Water for inj. (sterile) 10 ML IV ONE ×2 (10:50→12:44)
[2016-12-23] MEDS: Budesonide/Formoterol 160/4.5 MDI IH SCH ×2 (11:27→22:13)
[2016-12-23] MEDS: SUMAtriptan 6 MG/0.5 ML SQ PRN (12:49)
--- NOTE | 2016-12-23 17:04 | Internal Med Progress Note ---
Date of Encounter: 12/23/16 Time of Encounter: 16:00 - Assessment and plan (1) Alcohol intoxication Current Visit: Yes Status: Acute Assessment and plan: Mental status at baseline Concern for alcohol withdrawal continue IV fluids Folate and Thiamine D/C Ativan and Started Librium 50mg PO QID Extensive alcohol cessation counseling provided. acid conditioning worker vincent requested Qualifiers: Complication of substance-induced condition: uncomplicated Qualified Code(s ): F10.120 - Alcohol abuse with intoxication, uncomplicated (2) Alcohol dependence Current Visit: Yes Status: Acute Assessment and plan: plan as listed above Qualifiers: Substance use status: uncomplicated Qualified Code(s): F10.20 - Alcohol dependence, uncomplicated (3) HTN (hypertension) Current Visit: No Status: Chronic Assessment and plan: Continue Amlodipine Continue Metoprolol to 50mg PO q12h, Lisinopril to 10mg PO qd Hydralazine 10mg IVP q6h prn SBP>150 Qualifiers: Hypertension type: essential hypertension Qualified Code(s): I10 - Essential (primary) hypertension (4) Hypokalemia Current Visit: No Status: Acute Assessment and plan: Resolved will continue to monitor electrolytes and replace as needed (5) COPD (chronic obstructive pulmonary disease) Current Visit: No Status: Chronic Assessment and plan: Not in acute exacerbation will continue bronchodilator support O2 supplementation as needed Qualifiers: COPD type: chronic bronchitis Chronic bronchitis type: unspecified Qualified Code(s): J42 - Unspecified chronic bronchitis (6) Tobacco abuse Current Visit: No Status: Chronic Assessment and plan: Smoking cessation counselling provided patient not ready to quit at this time (7) Bipolar disorder in remission Current Visit: Yes Status: Chronic (8) DVT prophylaxis Current Visit: Yes Status: Acute Assessment and plan: Heparin SQ - Subjective Interval history: Patient is a 61-year-old who was admitted for evaluation of suicidal ideation status post alcohol intoxication. Patient was noted to verbally state that he wanted to hurt himself when he was intoxicated which prompted his admission. Patient seen and examined, resting in chair. Pt noted to have drug seeking behavior and asking for Ativan and became upset threatening to leave when he was told about transitioning from Ativan to Librium. As per the social welfare research worker, during patient's last hospitalization, [facility] however patient never followed [facility]. Patient gets agitated when confronted about his noncompliance. - Constitutional Vitals: Temp Pulse Resp BP Pulse Ox 97.7 F 89 16 168/97 90 L 12/23/16 07:48 12/23/16 07:48 12/23/16 11:27 12/23/16 07:48 12/23/16 11:27 General appearance: Present: disheveled, A&O X 3, morbidly obese, no acute distress, answers questions appropriately - Head Head exam: Present: atraumatic, normocephalic - Eye Eye exam: Present: conjuntiva pink, sclera anicteric - Respiratory Respiratory exam: Present: CTAB. Absent: respiratory distress, wheezes - Cardiovascular Cardiovascular exam: Present: RRR, +S1, +S2 - GI/Abdominal GI/Abdominal exam: Present: normal bowel sounds, soft. Absent: distended, tenderness - Extremities Exam Extremities exam: Present: warm, radial pulses palpable and symetrical. Absent : calf tenderness, pedal edema - Neurological Exam Neurological exam: Present: alert, oriented X3, no focal deficits - Psychiatric Psychiatric exam: Present: normal affect, normal mood Internal Medicine: Result - Labs CBC & Chem 7: 12/23/16 04:22 12/23/16 04:22 Labs: Short CBC 12/23/16 Range/Units 04:22 WBC 5.2 D (4.3-11.1) K/mcL Hgb 11.8 L (12.9-16.9) g/dL Hct 37.1 L (37.5-50.1) % Plt Count 131 L (140-400) K/mcL Neutrophils # 3.6 (1.6-8.9) K/mcL BMP 12/23/16 04:22 Sodium 135 L Potassium 3.8 Chloride 104 Carbon Dioxide 18 L BUN 12 Creatinine 1.14 Glucose 110 H Calcium 8.7 - ABG Interpretation ABG results: PT/INR, D-dimer PT 11.5 Seconds (9.4-12.1) 12/21/16 01:01 - VTE Documentation of Mechanical Device: Graduated compression elastic hosiery Consult Discharge Plan - Plan Referrals: NO,PCP [Non-Partnered Physician] -
[2016-12-23] MEDS ORDERED: Thiamine (B-1) 100 MG, Folic Acid 1 MG, MVI, adult with vitamin K 10 ML in 0.9 % Sodi... IVPB SCH (18:00)
[2016-12-23 19:54] LABS: Amphetamines NEGATIVE ng/mL (Cutoff 30); Barbiturates NEGATIVE ng/mL (Cutoff 75); Benzodiazepines NEGATIVE ng/mL (Cutoff 75); Cocaine NEGATIVE ng/mL (Cutoff 30); Methadone NEGATIVE ng/mL (Cutoff 40); Methamphetamines NEGATIVE ng/mL (Cutoff 30); Opiates NEGATIVE ng/mL (Cutoff 30); Phencyclidine NEGATIVE ng/mL (Cutoff 15)
[2016-12-23] MEDS: Divalproex (24 HR) 250 MG TABLET PO SCH (21:49)
[2016-12-23] MEDS: Mirtazapine 15 MG TABLET PO SCH (21:51)
[2016-12-24] MEDS: *HR* Heparin 5,000 UNIT/ML VIAL SQ SCH ×2 (05:02→15:43)
[2016-12-24] MEDS: *HR* OxyCODONE Immed Rel 5 MG TABLET PO PRN (05:04)
[2016-12-24 05:25] LABS: Basophils % 0.2 %; Eosinophils # 0.2 K/mcL (0.0-0.6); Eosinophils % 3.7 %; Hematocrit 36.9 % (37.5-50.1); Hemoglobin 11.5 g/dL (12.9-16.9); Immature Granulocytes % 0.6 % (0-4); Lymphocytes # 1.2 K/mcL (0.6-4.6); Lymphocytes % 25.3 %; Mean Corpuscular HGB Conc 31.2 g/dL (31.6-35.5); Mean Corpuscular Hemoglobin 25.5 pg (28.0-33.3); Mean Corpuscular Volume 81.8 fL (83.0-100.0); Mean Platelet Volume 11.7 fL (9.4-12.4); Monocytes # 0.5 K/mcL (0.0-1.3); Monocytes % 9.7 %; Neutrophils # 2.9 K/mcL (1.6-8.9); Platelet Count 120 K/mcL (140-400); Red Blood Count 4.51 M/mcL (4.19-5.50); Red Cell Distribution Width 17.5 % (11.5-14.5); Segmented Neutrophils % 60.5 %
[2016-12-24 05:46] LABS: BUN/Creatinine Ratio 13 (6-26); Blood Urea Nitrogen 13 mg/dL (8-26); Calcium 8.9 mg/dL (8.6-10.8); Carbon Dioxide 21 mEq/L (19-29); Chloride 109 mEq/L (98-109); Glucose 97 mg/dL (70-99); Magnesium 1.9 mg/dL (1.6-2.6); Osmolality,Calculated 286 (280-300); Phosphorous 3.7 mg/dL (2.3-4.7); Potassium 4.2 mEq/L (3.5-4.5); Sodium 138 mEq/L (136-145); eGFR For African Americans > 60 (> 60); eGFR For Non-African Americans > 60 (> 60)
[2016-12-24] MEDS: Budesonide/Formoterol 160/4.5 MDI IH SCH ×2 (07:47→21:35)
--- NOTE | 2016-12-24 08:52 | Internal Med History&Physical ---
Date of Encounter: 12/21/16 (late entry:12/24/16) Time of Encounter: 04:00 (08:48) Assessment and Plan (1) Toxic metabolic encephalopathy Current visit: Yes Status: Acute . (2) Delirium due to conditions classified elsewhere Current visit: Yes Status: Acute . (3) Alcohol abuse with alcohol-induced disorder Current visit: Yes Status: Acute . (4) Alcohol dependence with acute alcoholic intoxication and delirium Current visit: Yes Status: Acute . (5) Alcohol dependence with acute alcoholic intoxication with complication Current visit: Yes Status: Acute . (6) Morbid obesity with BMI of 40.0-44.9, adult Current visit: Yes Status: Chronic . (7) Combative behavior Current visit: Yes Status: Acute . (8) Adjustment reaction with anxiety and depression Current visit: Yes Status: Acute . (9) Bipolar disorder, unspecified Current visit: Yes Status: Chronic . Qualifiers: Active/Remission status: currently active Current bipolar episode type: mixed Current episode severity: unspecified Qualified Code(s): F31.60 - Bipolar disorder, current episode mixed, unspecified (10) COPD (chronic obstructive pulmonary disease) Current visit: No Status: Chronic . Qualifiers: COPD type: chronic bronchitis Chronic bronchitis type: unspecified Qualified Code(s): J42 - Unspecified chronic bronchitis (11) Chronic back pain Current visit: Yes Status: Chronic . Qualifiers: Back pain location: back pain in unspecified location Back pain laterality : unspecified Qualified Code(s): M54.9 - Dorsalgia, unspecified; G89.29 - Other chronic pain (12) Coronary artery disease Current visit: Yes Status: Chronic . Qualifiers: Coronary Disease-Associated Artery/Lesion type: [place] artery [place] vs. transplanted heart: [place] heart Associated angina: without angina Qualified Code(s): I25.10 - Atherosclerotic heart disease of [place] coronary artery without angina pectoris (13) HTN (hypertension) Current visit: Yes Status: Chronic Qualifiers: Hypertension type: essential hypertension Qualified Code(s): I10 - Essential (primary) hypertension (14) Pancreatic insufficiency Current visit: Yes Status: Chronic . (15) Physical deconditioning Current visit: Yes Status: Chronic . (16) Suicidal ideation Current visit: Yes Status: Acute . (17) Toxic effect of alcohol, intentional self-harm Current visit: Yes Status: Acute . Qualifiers: Encounter type: initial encounter Qualified Code(s): T51.92XA - Toxic effect of unspecified alcohol, intentional self-harm, initial encounter Internal Medicine - H&P: HPI Chief complaint: Altered mental status/suicide ideation/intoxication. Admitted From: Emergency Dept Plans for Post Hospital Care: Home History of present illness: Mr. Chen is a 61 year old male [facility] patient with history significant for COPD, CAD/AMI, h/o CVA/TIAs, hypertension, dyslipidemia, alcohol dependency and abuse , pancreatic insuff/partial pancreatectomy, mood disorder/RODY/bipolar dis/ schizophrenia, chronic tension vascular headaches, morbid obesity, nicotine dependency Patient was visited and interviewed and examined. Patient was admitted to the pharmacy via the emergency department when he presented by EMS services with multiple complaints of pain. He reported acute onset of epigastric abdominal pain shortly before his arrival to the ED. He had been drinking alcohol heavily. In the ED the patient became agitated, angry , loud, uncooperative and threatening. He threatened violence to others as well as self. Neurologic right psychiatric evaluation he stripped naked and continued to the nurses and staff. He rated his pain focusing primarily on his abdomen as diffuse and 10/10 severity cramping stabbing. Patient's history was notable for previous resection of small bowel obstruction. The patient also was apparent in overt intoxication of alcohol. Findings in the ED: Temperature 97.2 pulse 93-106 respiration 16-18 BP 131-169/ 96-104. O2 saturation 99% room air. WBC 5.1 hemoglobin 11.7 platelets 148,000. MCV 81.4 MCH 24.7. Differential normal. PT 11.5 INR 1.1 PTT 28.6. Metabolic panel notes a potassium of 3.2. BUN 16 creatinine 0.92. Glucose 101 osmolality 295. Carbon dioxide 19. Calcium 8.1. Hepatic function ast of 58. Albumin 3.8 total 7.3. Lipase 36. Troponin 0.01. Salicylates less than 5 acetaminophen less than 1. Ethyl alcohol 279. Acute abdominal series demonstrated a nonspecific nonobstructive bowel gas pattern. Surgical clips were present within the upper abdomen. No free air identified. Preliminary impression suggests acute on chronic toxic metabolic encephalopathy with delirium in a patient with long-standing complex mood disorder and alcoholism. He presents acutely intoxicated. Uncertain whether or not there has been polysubstance abuse at the time of presentation due to the aggressive pain behaviors requiring medical sedation and restraints. He threatened suicide ideation as well as physical threatening staff. Hospitalized in the past for psychiatric inpatient management as well as acute alcohol intoxication and alcohol withdrawal. He presents further risk for acute clinical decline and morbidity given his present findings and comorbidities. Workup and treatment will proceed comparatively. Cumulative laboratory and radiographic data base was reviewed,considered and discussed. Pertinent ancillary medical records including ECW and PCI documentation was reviewed and considered. Given the patient's presenting concerns, past medical history, clinical findings and symptoms, he is admitted at this time will undergo further evaluation and disposition. Orders were written as per the computerized physician back order clerk system.......................................................................... .................... Consultative opinions will be sought as clinical circumstances justify. Initial consultative opinion has been requested of psychiatry. Pain management needs will be addressed. Laboratory and radiographic data base will be updated as appropriate. Studies include: UA,UDS, ethyl alcohol, ASA, APAP, cardiac injury panel, BNP, CPK, metabolic and hematologic panel, magnesium, phosphorus, ionized calcium, thyroid panel, lipid profile, ammonia, A1c, C-peptide, CRP, sedimentation rate, blood gas, lactic acid, amylase, lipase, serologies, etc. Precautions: Aspiration, fall, seizure, delirium protocol/surveillance initiated. Alcohol withdrawal/detoxification from alcohol/surveillance initiated. CIWA/SAS guidelines. Fluid rehydration therapy with correction of metabolic and acid base deficits. Vitamin supplementation includes B12, folate, thiamine, MVI + minerals. Telemetry with continuous hemodynamic monitoring and pulse oximetry initiated. Orthostatic vital signs. Empiric antibiotic coverage: pending diagnostics/culture data. Special studies: x-ray acute abd series, chest x-ray, telemetry, EKG. Pulmonary toilet: Incentive spirometry, aerosol bronchodilator, mucolytic, antitussive, supplemental oxygen. Corticosteroid therapyPRN. CPAP/BiPAP supplemental oxygenPRN. Aerosol Mucomyst therapyPRN. Fluid and electrolyte repletion efforts will proceed. Careful attention to fluid balance and renal recovery will be emphasized. Avoidance of nephrotoxic exposure and adverse drug drug interaction in the setting of impaired renal function will be monitored closely. Acute coronary syndrome protocol/surveillance initiated. DVT and PUD prophylaxis initiated: PPI therapy, intermittent pneumatic cuffs. Subcutaneous heparin. Early ambulation will be encouraged. Immunization updates recommended. Influenza and pneumococcal vaccinations as part of ongoing preventative healthcare recommendations strongly recommended. Smoking cessation counseling briefly addressed. Patient will receive nicotine substitution during this admission. Advanced care directive discussion briefly addressed. Patient does not declare any healthcare restrictions at this time. Cardiovascular risk appraisal and cardiovascular risk reduction efforts will be emphasized. Physical and occupational therapy may be consulted to evaluate patient's functional capacity and progress mobility if circumstances justify. Nutrition/dietary education counseling may be considered as circumstances justify. Outpatient medication schedules will be reviewed, confirmed and facilitated as appropriate. Reconciliation of home treatments including adjustments, substitutions and reintroduction into the treatment regimen will address necessary maintenance therapies for chronic pre-existing medical conditions. Plan of care has been reviewed and discussed in detail with the patient. Questions addressed. Hospital course dictated by clinical findings, treatment response and potential consultative interventions. Patient is at risk for further acute clinical decline and morbidity due to presenting chief complaints, findings and comorbid conditions. Condition is serious. Prognosis is guarded. CODE STATUS is full.. Past Med Surg Social Fam HX - Past Medical History Source: old records reviewed Medical history: arthritis, COPD, coronary artery disease, CVA, hyperlipidemia, hypertension, migraine, myocardial infarction, TIA, other Psychiatric history: anxiety, bipolar, depression, previous psychiatric hospitalization, other - Past Surgical History Surgical History: appendectomy, cholecystectomy, other (Partial Pancreatectomy, surgeries for partial bowel resection, PEG insertion, temporary ileostomy and reversal.) - Social History Smoking Status: Current every day smoker Packs per day: 1 Smokeless Tobacco Status: No Alcohol use: heavy, recent Drug use: none Occupational status: disabled Current living situation: Home - Independent Activity Level: Independent ambulation, Mostly sedentary Recent Out of Country Travel Within the Last 8 Weeks: No Exposure or Possible Exposure to Illness During Travel: No - Family History Mother Family Member Ethnicity: Non- Living Status: Still Living Hx Family Cardiac Disorders: Yes (htn) Hx Family Respiratory Disorders: No Hx Family Cancer: Yes (Colon) Hx Family GI Disorders: No Hx Family Endocrine Disorder: No Hx Family Neuromuscular Disorders: Yes (Neuropathy) Hx Family Neurologic Disorders: No Hx Family HEENT Disorders: No Hx Family Autoimmune Disorders: No Father Living Status: Internal Medicine - H&P: Meds Albuterol Sulfate [Proair Hfa] 2 puff IH Q6H PRN 12/21/16 [History] Amlodipine Besylate 10 mg PO DAILY 12/21/16 [History] Budesonide/Formoterol 160/4.5 [Symbicort 160/4.5] 1 puff IH BID 12/21/16 [ History] Cholecalciferol (D-3) [Vitamin D] 1,000 unit PO DAILY 12/21/16 [History] Cyanocobalamin (Vitamin B-12) [Vitamin B12] 500 mcg PO DAILY 12/21/16 [History] Divalproex (24 HR) [Depakote ER (24 HR)] 1,250 mg PO HS 12/21/16 [History] Ergocalciferol (VITAMIN D2) [Vitamin D2] 50,000 unit PO QWEEK 12/21/16 [History] Folic Acid 2 mg PO DAILY 12/21/16 [History] Gabapentin [Neurontin] 600 mg PO TID 12/21/16 [History] Lipase/Protease/Amylase [Creon Dr 36,000 Units Capsule] 36,000 unit PO TID 12/21 [History] Magnesium Oxide [Mag-Ox] 400 mg PO BID 12/21/16 [History] Mirtazapine 7.5 mg PO HS 12/21/16 [History] Omeprazole [PriLOSEC] 20 mg PO DAILY 12/21/16 [History] Quetiapine Fumarate [SEROquel] 300 mg PO HS 12/21/16 [History] SUMAtriptan [Imitrex] 6 mg SQ BID PRN 12/21/16 [History] Thiamine (B-1) [Vitamin B-1] 100 mg PO BID 12/21/16 [History] TraZODone 50 mg PO TID 12/21/16 [History] Allergies No Known Allergies Allergy (Verified 10/12/16 03:54) ROS unobtainable: due to mental status All Systems PM: A 10-system review of systems was performed and is negative for pertinent findings except as documented above in the HPI. Patient cannot participate in review of system survey is presenting chief complaint and medical condition. - Constitutional Constitutional: as per HPI - EENT Eyes: as per HPI Ears: as per HPI Nose, mouth and throat: as per HPI - Cardiovascular Cardiovascular ROS IM: as per HPI - Respiratory Respiratory: as per HPI - Gastrointestinal Gastrointestinal: as per HPI - Genitourinary Genitourinary ROS male: as per HPI - Musculoskeletal Musculoskeletal ROS IM: as per HPI - Integumentary Integumentary IM: as per HPI - Neurological Neurological ROS: as per HPI - Psychiatric Psychiatric: as per HPI - Endocrine Endocrine IM: as per HPI - Hematologic/Lymphatic Hematologic/Lymphatic: as per HPI - Allergic/Immunologic Allergic/Immunologic: as per HPI - Constitutional Vitals: Temp Pulse Resp BP Pulse Ox 98.4 F 88 14 116/77 95 12/24/16 08:14 12/24/16 08:14 12/24/16 08:14 12/24/16 08:14 12/24/16 08:14 General appearance: Present: disheveled, A&O X 3, morbidly obese, no acute distress. Absent: cooperative, answers questions appropriately Exam: Patient presented acutely agitated and combative in presentation. He received both medical sedation and restraints in the ED. - Head Head exam: Present: atraumatic, normocephalic - Eye Eye exam: Present: EOMI, PERRL, conjuntiva pink, sclera anicteric Pupils: Present: PERRL - ENT ENT exam: Present: mucous membranes moist, normal oropharynx - Neck Neck exam general surgery: Present: full ROM, supple, trachea midline. Absent: lymphadenopathy - Respiratory Respiratory exam: Present: decreased breath sounds, CTAB. Absent: accessory muscle use, rales, rhonchi, wheezes - Cardiovascular Cardiovascular exam: Present: distant heart sounds, RRR, +S1, +S2. Absent: diastolic murmur, gallop, rubs, systolic murmur - GI/Abdominal GI/Abdominal exam: Present: normal bowel sounds, soft, tenderness, no peritoneal signs. Absent: distended Additional comments: Multiple postsurgical scars apparent - Extremities Exam Extremities exam: Present: full ROM, warm, radial pulses palpable and symetrical. Absent: calf tenderness, cyanotic, pedal edema - Neurological Exam Neurological exam: Present: alert, altered, CN II-XII intact, oriented X3, no focal deficits. Absent: pronater drift, facial droop, speech deficit - Psychiatric Psychiatric exam: Present: agitated, anxious, suicidal ideation - Expanded Psychiatric Exam Focused psych exam: Present: restlessness - Skin Skin exam: Present: dry, intact Internal Med - H&P Results - Labs CBC & Chem 7: 12/24/16 05:13 12/24/16 05:13 Labs: Short CBC 12/24/16 Range/Units 05:13 WBC 4.8 (4.3-11.1) K/mcL Hgb 11.5 L (12.9-16.9) g/dL Hct 36.9 L (37.5-50.1) % Plt Count 120 L (140-400) K/mcL Neutrophils # 2.9 (1.6-8.9) K/mcL BMP 12/24/16 05:13 Sodium 138 Potassium 4.2 Chloride 109 Carbon Dioxide 21 BUN 13 Creatinine 1.01 Glucose 97 Calcium 8.9 - Impressions Vital Signs Temp Pulse Resp BP Pulse Ox 12/24/16 08:14 98.4 F 88 14 116/77 95 12/24/16 07:52 17 98 12/23/16 19:51 97.8 F 96 17 159/99 98 12/23/16 17:53 97.4 F L 95 16 145/95 95 12/23/16 11:27 16 90 L Intake and Output 12/23/16 12/24/16 12/24/16 23:59 07:59 15:59 Intake Total 1640 / 1640 240 / 240 Balance 1640 / 1640 240 / 240 Intake: IV Fluids 1000 / 1000 0.45% Sodium Chloride 1000 / 1000 1000 Ml 1000 Ml 1,000 ML @ 75 mls/hr IVC .[id number] [facility] Rx#:[id number] Oral 640 / 640 240 / 240 Other: Meal Breakfast Percent of Meal Consumed 100% # Voids 1 1 Short CBC 12/24/16 Range/Units 05:13 WBC 4.8 (4.3-11.1) K/mcL Hgb 11.5 L (12.9-16.9) g/dL Hct 36.9 L (37.5-50.1) % Plt Count 120 L (140-400) K/mcL Neutrophils # 2.9 (1.6-8.9) K/mcL BMP 12/24/16 Range/Units 05:13 Sodium 138 (136-145) mEq/L Potassium 4.2 (3.5-4.5) mEq/L Chloride 109 (98-109) mEq/L Carbon Dioxide 21 (19-29) mEq/L BUN 13 (8-26) mg/dL Creatinine 1.01 (0.72-1.25) mg/dL Glucose 97 (70-99) mg/dL Calcium 8.9 (8.6-10.8) mg/dL Abnormal lab results Hgb 11.5 g/dL (12.9-16.9) L 12/24/16 05:13 Hct 36.9 % (37.5-50.1) L 12/24/16 05:13 MCV 81.8 fL (83.0-100.0) L 12/24/16 05:13 MCH 25.5 pg (28.0-33.3) L 12/24/16 05:13 MCHC 31.2 g/dL (31.6-35.5) L 12/24/16 05:13 RDW 17.5 % (11.5-14.5) H 12/24/16 05:13 Plt Count 120 K/mcL (140-400) L 12/24/16 05:13 Anisocytosis 1+ (Not Present) A 12/21/16 01:01 POC Glucose 104 (58-89) H 12/22/16 07:54 AST 58 Units/L (5-34) H 12/21/16 01:01 Lipase 131 Units/L (8-78) H 12/21/16 07:05 Ur Specific [place] 1.009 (1.010-1.025) L 12/22/16 06:30 Salicylates < 5.0 mg/dL (15-30) L 12/21/16 01:01 Acetaminophen < 1.0 mcg/mL (10-30) L 12/21/16 01:01 Ethyl Alcohol 279 mg/dL (0-10) H 12/21/16 01:01 Laboratory Results WBC 4.8 K/mcL (4.3-11.1) 12/24/16 05:13 RBC 4.51 M/mcL (4.19-5.50) 12/24/16 05:13 Hgb 11.5 g/dL (12.9-16.9) L 12/24/16 05:13 Hct 36.9 % (37.5-50.1) L 12/24/16 05:13 MCV 81.8 fL (83.0-100.0) L 12/24/16 05:13 MCH 25.5 pg (28.0-33.3) L 12/24/16 05:13 MCHC 31.2 g/dL (31.6-35.5) L 12/24/16 05:13 RDW 17.5 % (11.5-14.5) H 12/24/16 05:13 Plt Count 120 K/mcL (140-400) L 12/24/16 05:13 MPV 11.7 fL (9.4-12.4) 12/24/16 05:13 Immature Gran % 0.6 % (0-4) 12/24/16 05:13 Seg Neutrophils % 60.5 % 12/24/16 05:13 Lymphocytes % 25.3 % 12/24/16 05:13 Monocytes % 9.7 % 12/24/16 05:13 Eosinophils % 3.7 % 12/24/16 05:13 Basophils % 0.2 % 12/24/16 05:13 Neutrophils # 2.9 K/mcL (1.6-8.9) 12/24/16 05:13 Lymphocytes # 1.2 K/mcL (0.6-4.6) 12/24/16 05:13 Monocytes # 0.5 K/mcL (0.0-1.3) 12/24/16 05:13 Eosinophils # 0.2 K/mcL (0.0-0.6) 12/24/16 05:13 Basophils # 0.0 K/mcL (0.0-0.2) 12/24/16 05:13 Platelet Estimate Normal (Normal) 12/21/16 01:01 Immature Plt Fraction 3.6 % (1.1-6.1) 12/22/16 04:14 Anisocytosis 1+ (Not Present) A 12/21/16 01:01 PT 11.5 Seconds (9.4-12.1) 12/21/16 01:01 INR 1.1 12/21/16 01:01 APTT 28.6 Seconds (26.0-36.0) 12/21/16 01:01 Sodium 138 mEq/L (136-145) 12/24/16 05:13 Potassium 4.2 mEq/L (3.5-4.5) 12/24/16 05:13 Chloride 109 mEq/L (98-109) 12/24/16 05:13 Carbon Dioxide 21 mEq/L (19-29) 12/24/16 05:13 BUN 13 mg/dL (8-26) 12/24/16 05:13 Creatinine 1.01 mg/dL (0.72-1.25) 12/24/16 05:13 Est GFR ( Amer) > 60 (> 60) 12/24/16 05:13 Est GFR (Non-Af Amer) > 60 (> 60) 12/24/16 05:13 BUN/Creatinine Ratio 13 (6-26) 12/24/16 05:13 Glucose 97 mg/dL (70-99) 12/24/16 05:13 POC Glucose 104 (58-89) H 12/22/16 07:54 Est Mean Plasma Glucose 94 mg/dl 12/21/16 07:05 Hemoglobin A1c 4.9 % (-5.6) 12/21/16 07:05 Calculated Osmolality 286 (280-300) 12/24/16 05:13 Calcium 8.9 mg/dL (8.6-10.8) 12/24/16 05:13 Phosphorus 3.7 mg/dL (2.3-4.7) 12/24/16 05:13 Magnesium 1.9 mg/dL (1.6-2.6) 12/24/16 05:13 Total Bilirubin 0.4 mg/dL (0.2-1.2) 12/21/16 01:01 AST 58 Units/L (5-34) H 12/21/16 01:01 ALT 50 Units/L (0-55) 12/21/16 01:01 Alkaline Phosphatase 75 Units/L (38-126) 12/21/16 01:01 Ammonia 30 mcmol/L (18-72) 12/21/16 07:05 Troponin I 0.01 ng/mL (0-0.03) 12/21/16 01:01 Serum Total Protein 7.3 g/dL (6.0-8.3) 12/21/16 01:01 Albumin 3.8 g/dL (3.5-5.0) 12/21/16 01:01 Globulin 3.5 g/dL (2.4-3.5) 12/21/16 01:01 Albumin/Globulin Ratio 1.1 (1.1-2.2) 12/21/16 01:01 Amylase 66 Units/L (25-125) 12/21/16 07:05 Lipase 131 Units/L (8-78) H 12/21/16 07:05 TSH 1.077 mcIU/mL (0.350-4.840) 12/21/16 07:05 Urine Color Yellow (Yellow) 12/22/16 06:30 Urine Clarity Clear (Clear) 12/22/16 06:30 Urine pH 7.0 pH Units (5.0-8.0) 12/22/16 06:30 Ur Specific [place] 1.009 (1.010-1.025) L 12/22/16 06:30 Urine Protein Negative mg/dL (Neg-Trace) 12/22/16 06:30 Urine Glucose (UA) Normal mg/dL (Normal) 12/22/16 06:30 Urine Ketones Negative mg/dL (Negative) 12/22/16 06:30 Urine Blood Negative (Negative) 12/22/16 06:30 Urine Nitrite Negative (Negative) 12/22/16 06:30 Urine Bilirubin Negative (Negative) 12/22/16 06:30 Urine Urobilinogen Normal mg/dL (Normal) 12/22/16 06:30 Ur Leukocyte Esterase Negative (Negative) 12/22/16 06:30 Ur Culture Indicated? NO (NO) 12/22/16 06:30 Salicylates < 5.0 mg/dL (15-30) L 12/21/16 01:01 Blood Opiate Screen NEGATIVE ng/mL (Cutoff 30) 12/21/16 07:05 Urine Opiates Screen Negative ng/mL (Rshhdw=086) 12/22/16 06:30 Buprenorphine & Metab NEGATIVE ng/mL (Cutoff 1) 12/21/16 07:05 Blood Oxycodone Screen POSITIVE ng/mL (Cutoff 30) 12/21/16 07:05 Blood Methadone Screen NEGATIVE ng/mL (Cutoff 40) 12/21/16 07:05 Acetaminophen < 1.0 mcg/mL (10-30) L 12/21/16 01:01 Bld Barbiturates Scrn NEGATIVE ng/mL (Cutoff 75) 12/21/16 07:05 Ur Barbiturates Screen Negative ng/mL (Lxmbnb=048) 12/22/16 06:30 Bld Phencyclidine Scrn NEGATIVE ng/mL (Cutoff 15) 12/21/16 07:05 Ur Phencyclidine Scrn Negative ng/mL (Cutoff=25) 12/22/16 06:30 Bld Amphetamines Scrn NEGATIVE ng/mL (Cutoff 30) 12/21/16 07:05 Ur Amphetamines Screen Negative ng/mL (Rwwqok=9125) 12/22/16 06:30 Bl Methamphetamines Sn NEGATIVE ng/mL (Cutoff 30) 12/21/16 07:05 Bl Benzodiazepine Scrn NEGATIVE ng/mL (Cutoff 75) 12/21/16 07:05 U Benzodiazepines Scrn Negative ng/mL (Frstrm=461) 12/22/16 06:30 Bld Cocaine/Metab Scrn NEGATIVE ng/mL (Cutoff 30) 12/21/16 07:05 Urine Cocaine Screen Negative ng/mL (Cutoff= 300) 12/22/16 06:30 Bld Cannabinoid Screen NEGATIVE ng/mL (Cutoff 30) 12/21/16 07:05 U Marijuana (THC) Screen Negative ng/mL (Cutoff = 50) 12/22/16 06:30 Bld Drug Screen Commnt SEE NOTE 12/21/16 07:05 Ethyl Alcohol 279 mg/dL (0-10) H 12/21/16 01:01 Impressions Chest/Abdomen X-ray 12/21/16 00:00 IMPRESSION: Nonspecific nonobstructive bowel gas pattern. D/ / Scott Lora MD / Scott Lora MD Interpreting Provider: Scott Lora MD - VTE Documentation of Mechanical Device: Graduated compression elastic hosiery
[2016-12-24] MEDS: Aspirin 81 MG TAB.CHEW PO SCH (09:45)
[2016-12-24] MEDS: amLODIPine 5 MG TABLET PO SCH (09:46)
[2016-12-24] MEDS: Thiamine (B-1) 100 MG TABLET PO SCH (09:47)
[2016-12-24] MEDS: Magnesium Oxide 400 MG TABLET PO SCH ×2 (09:47→21:48)
[2016-12-24] MEDS: Folic Acid 1 MG TABLET PO SCH (09:47)
[2016-12-24] MEDS: Famotidine 20 MG TABLET PO SCH ×2 (09:48→21:48)
[2016-12-24] MEDS: Nicotine 21 MG PATCH.TD24 TD SCH (09:48)
[2016-12-24] MEDS: Vitamin B Complex/Vit C/Vit E 1 EACH TABLET PO SCH (09:51)
[2016-12-24] MEDS: Gabapentin 300 MG CAPSULE PO SCH ×2 (09:55→15:46)
[2016-12-24] MEDS: traZODone 50 MG TABLET PO SCH ×2 (09:56→15:46)
--- NOTE | 2016-12-24 15:09 | Internal Med Progress Note ---
Date of Encounter: 12/24/16 Time of Encounter: 13:30 - Assessment and plan (1) Alcohol intoxication Current Visit: Yes Status: Acute Assessment and plan: Mental status at baseline Concern for alcohol withdrawal continue IV fluids Folate and Thiamine Librium prn hold sedative agents given mental statu will obtain CT head to r/o any acute intracranial etiology Extensive alcohol cessation counseling provided. refractory worker vincent appreciated-patient refusing rehab at this time Once mental status stabilizes, will discharge the patient Qualifiers: Complication of substance-induced condition: uncomplicated Qualified Code(s ): F10.120 - Alcohol abuse with intoxication, uncomplicated (2) Alcohol dependence Current Visit: Yes Status: Acute Assessment and plan: plan as listed above Qualifiers: Substance use status: uncomplicated Qualified Code(s): F10.20 - Alcohol dependence, uncomplicated (3) HTN (hypertension) Current Visit: Yes Status: Chronic Assessment and plan: Continue Amlodipine Continue Metoprolol to 50mg PO q12h, Lisinopril 10mg PO qd Hydralazine 10mg IVP q6h prn SBP>150 Qualifiers: Hypertension type: essential hypertension Qualified Code(s): I10 - Essential (primary) hypertension (4) Hypokalemia Current Visit: No Status: Resolved (5) COPD (chronic obstructive pulmonary disease) Current Visit: No Status: Chronic Assessment and plan: Not in acute exacerbation will continue bronchodilator support O2 supplementation as needed Qualifiers: COPD type: chronic bronchitis Chronic bronchitis type: unspecified Qualified Code(s): J42 - Unspecified chronic bronchitis (6) Tobacco abuse Current Visit: No Status: Chronic Assessment and plan: Smoking cessation counselling provided patient not ready to quit at this time (7) Bipolar disorder in remission Current Visit: Yes Status: Chronic (8) DVT prophylaxis Current Visit: Yes Status: Acute Assessment and plan: Heparin SQ - Subjective Interval history: Patient is a 61-year-old who was admitted for evaluation of suicidal ideation status post alcohol intoxication. Patient was noted to verbally state that he wanted to hurt himself when he was intoxicated which prompted his admission. Patient seen and examined. Patient was reported to be lethargic and unsteady all throughout today requiring assistance to go to the bathroom and to ambulate around the room. overnight patient was reported of stating that he is never going to stop drinking and will continue to drink alcohol after discharge, however patient denies making such statements at this time. As per the manager social responsibility, during patient's last hospitalization, [facility] however patient never followed up. Patient gets agitated when confronted about his noncompliance. He is refusing detox at this time as well. - Constitutional Vitals: Temp Pulse Resp BP Pulse Ox 97.6 F 92 14 110/74 96 12/24/16 11:16 12/24/16 11:16 12/24/16 11:16 12/24/16 11:16 12/24/16 11:16 General appearance: Present: disheveled, A&O X 3, morbidly obese, no acute distress. Absent: cooperative, answers questions appropriately - Head Head exam: Present: atraumatic, normocephalic - Eye Eye exam: Present: normal appearance, conjuntiva pink, sclera anicteric - Respiratory Respiratory exam: Present: CTAB. Absent: accessory muscle use, rales, rhonchi, wheezes - Cardiovascular Cardiovascular exam: Present: RRR, +S1, +S2. Absent: diastolic murmur, gallop, rubs, systolic murmur - GI/Abdominal GI/Abdominal exam: Present: normal bowel sounds, soft. Absent: distended, tenderness - Extremities Exam Extremities exam: Present: warm, radial pulses palpable and symetrical. Absent : calf tenderness, cyanotic, pedal edema - Neurological Exam Neurological exam: Present: alert, oriented X3. Absent: normal gait (unsteady gait) - Psychiatric Psychiatric exam: Present: normal affect, normal mood Internal Medicine: Result - Labs CBC & Chem 7: 12/24/16 05:13 12/24/16 05:13 Labs: Short CBC 12/24/16 Range/Units 05:13 WBC 4.8 (4.3-11.1) K/mcL Hgb 11.5 L (12.9-16.9) g/dL Hct 36.9 L (37.5-50.1) % Plt Count 120 L (140-400) K/mcL Neutrophils # 2.9 (1.6-8.9) K/mcL BMP 12/24/16 05:13 Sodium 138 Potassium 4.2 Chloride 109 Carbon Dioxide 21 BUN 13 Creatinine 1.01 Glucose 97 Calcium 8.9 - ABG Interpretation ABG results: PT/INR, D-dimer PT 11.5 Seconds (9.4-12.1) 12/21/16 01:01 - VTE Documentation of Mechanical Device: Graduated compression elastic hosiery Consult Discharge Plan - Plan Referrals: NO,PCP [Non-Partnered Physician] -
[2016-12-24] MEDS: Mirtazapine 15 MG TABLET PO SCH (21:48)
[2016-12-24] MEDS: Divalproex (24 HR) 250 MG TABLET PO SCH (21:48)
[2016-12-24] MEDS: SUMAtriptan 6 MG/0.5 ML SQ PRN (21:49)
[2016-12-25] MEDS: *HR* OxyCODONE Immed Rel 5 MG TABLET PO PRN ×2 (02:11→10:06)
[2016-12-25 02:35] LABS: Basophils % 0.3 %; Eosinophils # 0.2 K/mcL (0.0-0.6); Eosinophils % 2.5 %; Hematocrit 35.9 % (37.5-50.1); Hemoglobin 11.1 g/dL (12.9-16.9); Immature Granulocytes % 0.5 % (0-4); Immature Platelets 6.5 % (1.1-6.1); Lymphocytes # 1.2 K/mcL (0.6-4.6); Lymphocytes % 19.7 %; Mean Corpuscular HGB Conc 30.9 g/dL (31.6-35.5); Mean Corpuscular Hemoglobin 25.2 pg (28.0-33.3); Mean Corpuscular Volume 81.6 fL (83.0-100.0); Mean Platelet Volume 11.5 fL (9.4-12.4); Monocytes # 0.5 K/mcL (0.0-1.3); Monocytes % 8.4 %; Neutrophils # 4.2 K/mcL (1.6-8.9); Platelet Count 114 K/mcL (140-400); Red Cell Distribution Width 17.9 % (11.5-14.5); Segmented Neutrophils % 68.6 %
[2016-12-25 02:46] LABS: BUN/Creatinine Ratio 14 (6-26); Blood Urea Nitrogen 13 mg/dL (8-26); Calcium 9.2 mg/dL (8.6-10.8); Carbon Dioxide 19 mEq/L (19-29); Chloride 110 mEq/L (98-109); Glucose 112 mg/dL (70-99); Magnesium 1.9 mg/dL (1.6-2.6); Osmolality,Calculated 287 (280-300); Phosphorous 4.3 mg/dL (2.3-4.7); Potassium 4.1 mEq/L (3.5-4.5); Sodium 138 mEq/L (136-145); eGFR For African Americans > 60 (> 60); eGFR For Non-African Americans > 60 (> 60)
[2016-12-25] MEDS: *HR* Heparin 5,000 UNIT/ML VIAL SQ SCH ×2 (05:46)
[2016-12-25] MEDS: Budesonide/Formoterol 160/4.5 MDI IH SCH (07:59)
[2016-12-25] MEDS: Vitamin B Complex/Vit C/Vit E 1 EACH TABLET PO SCH (10:04)
[2016-12-25] MEDS: amLODIPine 5 MG TABLET PO SCH (10:05)
[2016-12-25] MEDS: Aspirin 81 MG TAB.CHEW PO SCH (10:05)
[2016-12-25] MEDS: Famotidine 20 MG TABLET PO SCH (10:05)
[2016-12-25] MEDS: Folic Acid 1 MG TABLET PO SCH (10:05)
[2016-12-25] MEDS: Magnesium Oxide 400 MG TABLET PO SCH (10:05)
[2016-12-25] MEDS: Thiamine (B-1) 100 MG TABLET PO SCH (10:05)
[2016-12-25] MEDS: Nicotine 21 MG PATCH.TD24 TD SCH (10:06)
[2016-12-25 11:48] VITALS: BP 129/75
--- NOTE | 2016-12-25 12:07 | Discharge Summary ---
Date of Encounter: 12/25/16 Time of Encounter: 12:03 - Discharge Diagnosis (1) Alcohol intoxication Priority: Primary Status: Acute Qualifiers: Complication of substance-induced condition: uncomplicated Qualified Code(s ): F10.120 - Alcohol abuse with intoxication, uncomplicated (2) Alcohol dependence Priority: Primary Status: Acute Qualifiers: Substance use status: uncomplicated Qualified Code(s): F10.20 - Alcohol dependence, uncomplicated (3) HTN (hypertension) Priority: Secondary Status: Chronic Qualifiers: Hypertension type: essential hypertension Qualified Code(s): I10 - Essential (primary) hypertension (4) Hypokalemia Priority: Secondary Status: Resolved (5) COPD (chronic obstructive pulmonary disease) Priority: Secondary Status: Chronic Qualifiers: COPD type: chronic bronchitis Chronic bronchitis type: unspecified Qualified Code(s): J42 - Unspecified chronic bronchitis (6) Tobacco abuse Priority: Secondary Status: Chronic (7) Bipolar disorder in remission Priority: Secondary Status: Chronic (8) DVT prophylaxis Priority: Secondary Status: Acute - Discharge Medications Prescriptions: Chlordiazepoxide [Librium] 25 mg PO TID PRN #40 capsule PRN Reason: alcohol withdrawal symptoms Lisinopril [Zestril] 10 mg PO DAILY #30 tablet Metoprolol [Lopressor] 50 mg PO BID #30 tablet Home Medications: Albuterol Sulfate [Proair Hfa] 2 puff IH Q6H PRN 12/21/16 [History] Amlodipine Besylate 10 mg PO DAILY 12/21/16 [History] Budesonide/Formoterol 160/4.5 [Symbicort 160/4.5] 1 puff IH BID 12/21/16 [ History] Cholecalciferol (D-3) [Vitamin D] 1,000 unit PO DAILY 12/21/16 [History] Cyanocobalamin (Vitamin B-12) [Vitamin B12] 500 mcg PO DAILY 12/21/16 [History] Divalproex (24 HR) [Depakote ER (24 HR)] 1,250 mg PO HS 12/21/16 [History] Ergocalciferol (VITAMIN D2) [Vitamin D2] 50,000 unit PO QWEEK 12/21/16 [History] Folic Acid 2 mg PO DAILY 12/21/16 [History] Gabapentin [Neurontin] 600 mg PO TID 12/21/16 [History] Lipase/Protease/Amylase [Ananya Kern 36,000 Units Capsule] 36,000 unit PO TID 12/21 [History] Magnesium Oxide [Mag-Ox] 400 mg PO BID 12/21/16 [History] Mirtazapine 7.5 mg PO HS 12/21/16 [History] Omeprazole [PriLOSEC] 20 mg PO DAILY 12/21/16 [History] Quetiapine Fumarate [Seroquel] 300 mg PO HS 12/21/16 [History] SUMAtriptan [Imitrex] 6 mg SQ BID PRN 12/21/16 [History] Thiamine (B-1) [Vitamin B-1] 100 mg PO BID 12/21/16 [History] TraZODone 50 mg PO TID 12/21/16 [History] Chlordiazepoxide [Librium] 25 mg PO TID PRN #40 capsule 12/25/16 [Rx] Lisinopril [Zestril] 10 mg PO DAILY #30 tablet 12/25/16 [Rx] Metoprolol [Lopressor] 50 mg PO BID #30 tablet 12/25/16 [Rx] Allergies/Adverse Reactions: Allergies No Known Allergies Allergy (Verified 10/12/16 03:54) Procedures/tests Complete & Pending: Procedures Performed prior 72 hours Category Date Time Status CT head/brain wo con [CT] Stat Cat Scan 12/24/16 15:07 Completed Date of admission: 12/22/16 16:14 Primary care physician: Scott Fairbanks DO Consults: 12/23/16 08:13 Consult to Invasive Line Access Team [CONS] Routine Reason for Consult: Limited IV accessed on CIWA Line Type: EPIV Discharging clinician: Natty Yuan Anticipated date of discharge: 12/25/16 - Patient Status Disposition: Home, Self-Care Condition: Good Functional capacity at discharge: independent ambulation - Discharge Instructions Instructions: Metoprolol (By mouth), Chlordiazepoxide (By mouth), Lisinopril ( By mouth), Alcohol Intoxication (DC), Abuse of Alcohol (DC) Follow Up With: Emmanuel Gonzalez DO [Resident] - 02/24/17 2:00 pm (The office will mail you a new patient packet. Please arrive 15 minutes early for your appointment, bring a copy of your insurance card, and any current medications you are taking. If you need to cancel your appointment please call 24 hours in advance to notify the office at [phone].) Additional Instructions: Please follow-up with your primary care physician within 5 days after discharge from the hospital. Please do not drink any alcohol after discharge from the hospital. You are given a prescription for Librium, please do not drink alcohol after discharge and do not drink alcohol if you are taking Librium. Your blood pressure medications have been adjusted, metoprolol and lisinopril has been added to your home medications in addition to amlodipine for better blood pressure control Please continue all your home medications as prescribed by her primary care physician - Diet and Activity Activity: resume usual activities as tolerated Diet: advance to your usual diet Hospital course: Mr. Chen is a 61 year old male with history significant for COPD, CAD/AMI, h/o CVA/TIAs, hypertension, dyslipidemia, alcohol dependency and abuse, pancreatic insuff/partial pancreatectomy, mood disorder/RODY/bipolar dis/schizophrenia, chronic tension vascular headaches, morbid obesity, nicotine dependency who was admitted for concern for suicidal ideation with alcohol intoxication. She was evaluated by psychiatry once patient was self referred, at that time patient denies any suicidal ideation or any intent to harm himself. However the patient 's hospital course course was complicated with initiation of alcohol withdrawal symptoms. He was started on Ativan without adequate improvement due to which Ativan was discontinued and Librium was started. Patient was noted to have change in mental status yesterday with unsteady gait due to which all sedative agents were placed on hold. Patient's mental status improved and currently is at baseline. He is hemodynamically stable and will be discharged home. workers compensation legal secretary vincent was also placed for possible arrangement of detox program after discharge. Patient refused group social worker at this time however states he will not drink after discharge and requested a Librium prescription. Patient was also noted to be hypertensive during this hospitalization and his home meds were readjusted. At this time patient is hemodynamically stable and will be discharged to home with follow-up with his PCP. - Time Spent with Patient Total time spent providing and/or coordinating discharge services: Less than 30 minutes - Constitutional Vitals: Temp Pulse Resp BP Pulse Ox 98 F 83 18 129/75 96 12/25/16 11:47 12/25/16 11:47 12/25/16 11:47 12/25/16 11:47 12/25/16 11:47 General appearance: Present: A&O X 3, morbidly obese, no acute distress, answers questions appropriately. Absent: cooperative - Head Head exam: Present: atraumatic, normocephalic - Eye Eye exam: Present: normal appearance, conjuntiva pink, sclera anicteric - Respiratory Respiratory exam: Present: CTAB. Absent: accessory muscle use, rales, rhonchi, wheezes - Cardiovascular Cardiovascular exam: Present: RRR, +S1, +S2. Absent: diastolic murmur, gallop, rubs, systolic murmur - GI/Abdominal GI/Abdominal exam: Present: normal bowel sounds, soft, no peritoneal signs. Absent: distended, tenderness - Extremities Exam Extremities exam: Present: warm, radial pulses palpable and symetrical. Absent : calf tenderness, cyanotic, pedal edema - Neurological Exam Neurological exam: Present: alert, oriented X3, no focal deficits - Psychiatric Psychiatric exam: Present: normal affect, normal mood - VTE Documentation of Mechanical Device: Graduated compression elastic hosiery
[2016-12-25 22:23] LABS: Hydrocodone Confirmation <2 ng/mL
[2016-12-26 07:35] LABS: 6_Acetylmorphine Confirmation <2 ng/mL; Oxymorphone Confirmation <2 ng/mL
== END 2016-12-25 13:26 | disposition home or self-care (01) | DRG 896 ==
LOC: 3BNU 23:29 → EMEROO 23:29 → SUATTDRO 12-21 03:39 → 3BNU 12-21 03:53
PROVIDERS: ADMIT Internal Medicine; ATTEND Internal Medicine

== ENCOUNTER 2017-02-01 18:35 | Inpatient (IN) ==
[2017-02-01] MEDS ORDERED: *HR* LORazepam 2 MG/ML VIAL IVP ONE ×2 (18:45→19:54)
[2017-02-01] MEDS ORDERED: *HR* Morphine 2 MG/ML SYRINGE IVP ONE (18:45)
--- NOTE | 2017-02-01 18:54 | Emergency Department Note ---
Disposition Clinical Impression: Angina at rest, Alcohol withdrawal, Tremor Disposition: Admitted As Inpatient Condition: Critical Referrals: NO,PCP [Primary Care Provider] - Forms: ED Satisfaction Letter Time of Disposition: 20:05 Chest Pain HPI - General Chief Complaint: ED Chest Pain Stated Complaint: chest pain Time Seen by Provider: 02/01/17 18:37 Source: patient, EMS Vital Signs Reviewed: Yes Nursing Notes Reviewed: Yes - History of Present Illness HPI Narrative: 61-year-old male presents from injury of chest pain. Onset last evening. Lasted 45 minutes last night. Returned again this evening. Associated with diaphoresis and nausea and shakiness. Patient states he does not feel well. He denies any documented history of coronary artery disease. He denies any drug use. His last alcohol use was last evening. He does drink alcohol daily. Has not had any alcohol today. The chest pain is substernal. No radiation. No modifying factors. Was given nitroglycerin in route with little relief. He also was given aspirin. Patient denies any illicit drug use. Pt complaint: chest pain Onset (ago): Just [employer] Duration: constant Onset: during rest Pain Location: substernal Severity: moderate Severity scale (1-10): 6 Quality: tightness, aching Pain Radiation: none Improves with: nothing Worsens with: nothing Associated symptoms: Reports: nausea Treatments prior to arrival chest pain: aspirin, nitroglycerin - Related Data Home Medications Medication Instructions Recorded Confirmed Albuterol Sulfate [Proair Hfa] 2 puff IH Q6H PRN 12/21/16 12/21/16 Amlodipine Besylate 10 mg PO DAILY 12/21/16 12/21/16 Budesonide/Formoterol 160/4.5 1 puff IH BID 12/21/16 12/21/16 [Symbicort 160/4.5] Cholecalciferol (D-3) [Vitamin D] 1,000 unit PO DAILY 12/21/16 12/21/16 Cyanocobalamin (Vitamin B-12) 500 mcg PO DAILY 12/21/16 12/21/16 [Vitamin B12] Divalproex (24 HR) [Depakote ER 1,250 mg PO HS 12/21/16 12/21/16 (24 HR)] Ergocalciferol (VITAMIN D2) 50,000 unit PO QWEEK 12/21/16 12/21/16 [Vitamin D2] Folic Acid 2 mg PO DAILY 12/21/16 12/21/16 Gabapentin [Neurontin] 600 mg PO TID 12/21/16 12/21/16 Lipase/Protease/Amylase [[place] Dr 36,000 unit PO TID 12/21/16 12/21/16 36,000 Units Capsule] Magnesium Oxide [Mag-Ox] 400 mg PO BID 12/21/16 12/21/16 Mirtazapine 7.5 mg PO HS 12/21/16 12/21/16 Omeprazole [PriLOSEC] 20 mg PO DAILY 12/21/16 12/21/16 Quetiapine Fumarate [Seroquel] 300 mg PO HS 12/21/16 12/21/16 SUMAtriptan [Imitrex] 6 mg SQ BID PRN 12/21/16 12/21/16 Thiamine (B-1) [Vitamin B-1] 100 mg PO BID 12/21/16 12/21/16 TraZODone 50 mg PO TID 12/21/16 12/21/16 Previous Rx's Medication Instructions Recorded Chlordiazepoxide [Librium] 25 mg PO TID PRN #40 capsule 12/25/16 Lisinopril [Zestril] 10 mg PO DAILY #30 tablet 12/25/16 Metoprolol [Lopressor] 50 mg PO BID #30 tablet 12/25/16 Allergies Allergy/AdvReac Type Severity Reaction Status Date / Time No Known Allergies Allergy Verified 10/12/16 03:54 All systems ED: reviewed and negative except as stated. Constitutional: Reports: as per HPI Eyes: Reports: as per HPI ENT ED: Reports: as per HPI Cardiovascular: Reports: chest pain Respiratory: Reports: as per HPI Gastrointestinal: Reports: as per HPI Genitourinary: Reports: as per HPI Neurological: Reports: as per HPI Psychiatric: Reports: as per HPI Hematological/Lymphatic: Reports: as per HPI Allergic/Immunologic: Reports: as per HPI Chest Pain PMH - Past Medical History Medical history: Reports: arthritis, COPD, coronary artery disease, CVA, hyperlipidemia, hypertension, migraine, myocardial infarction, TIA, other Surgical history: Reports: appendectomy, cholecystectomy, other (Partial Pancreatectomy, surgeries for partial bowel resection, PEG insertion, temporary ileostomy and reversal.) Psychiatric history: Reports: anxiety, bipolar, depression, previous psychiatric hospitalization, other - Social History Smoking Status: Current every day smoker Alcohol use: Reports: heavy, recent Drug use: Reports: none Physical Exam - General Limitations: no limitations - Head Head exam: atraumatic, normocephalic - Chest Chest inspection: Present: normal inspection, symmetric chest wall rise, tenderness - Respiratory Respiratory exam: Present: normal lung sounds bilaterally - Cardiovascular Cardiovascular exam: Present: normal rhythm, tachycardia, normal heart sounds - Abdominal Exam Abdominal exam: Present: soft, Non-Tender. Absent: tenderness, distention - Extremities Exam Extremities exam: Present: normal inspection - Expanded Lower Extremity Exam Hip/Pelvis exam: Present: normal inspection - Back Exam Back exam: Present: normal inspection - Neurological Exam Neurological exam: Present: alert, oriented X3, other (+shakiness to bilat arms) - Psychiatric Psychiatric exam: Present: normal affect, agitated, anxious - Skin Skin exam: Present: warm, intact, normal color, diaphoresis Course Course Narrative: Patient's chest pain and symptoms are likely related to alcohol withdrawal. It has been approximately 24 hours since his last drink. He drinks around 800 mL a day of vodka. His last drink again was last evening around 7 PM. He is now having increasing tremors and shakiness. He is hypertensive. We gave him fluids as well as IV Ativan and some morphine. His heart rate has come down into the high 80s and low 90s. He is alert and oriented. He again is still hypertensive. Patient will need to be admitted for alcohol withdrawal. His EKG does not show any signs of ischemia. His troponins negative. Tox screen and alcohol were also negative Vital Signs Temperature 98.1 F 02/01/17 18:36 Pulse Rate 106 02/01/17 18:36 Respiratory Rate 32 02/01/17 18:36 Blood Pressure 158/107 02/01/17 18:36 O2 Sat by Pulse Oximetry 100 02/01/17 18:36 Temperature 98.1 F 02/01/17 18:36 Pulse Rate 89 02/01/17 19:37 Respiratory Rate 22 02/01/17 19:37 Blood Pressure 160/102 02/01/17 19:37 O2 Sat by Pulse Oximetry 100 02/01/17 19:37 Oxygen Delivery Oxygen Delivery Room Air Chest Pain - MDM Narrative Medical decision making narrative: Patient is on a second dose of IV Ativan and 4 mg. His tremors have improved. He remains hypertensive however his heart rate has come down nicely. Will supplement also with multivitamin and thiamine. Continue to run lactated Ringer 's. - Medical Records Medical records reviewed: Yes I reviewed the patient's medical records. - Lab Data Lab results reviewed: Yes I reviewed the patient's lab results. Result diagrams: 02/01/17 19:13 02/01/17 19:13 Lab Results 02/01/17 02/01/17 02/01/17 Range/Units 19:00 19:13 19:13 WBC 5.8 (4.3-11.1) K/mcL RBC 5.44 (4.19-5.50) M/mcL Hgb 14.1 (12.9-16.9) g/dL Hct 43.8 (37.5-50.1) % MCV 80.5 L (83.0-100.0) fL MCH 25.9 L (28.0-33.3) pg MCHC 32.2 (31.6-35.5) g/dL RDW 20.4 H (11.5-14.5) % Plt Count 198 (140-400) K/mcL MPV 10.2 (9.4-12.4) fL Immature Gran % 0.3 (0-4) % Seg Neutrophils % 63.5 % Lymphocytes % 24.8 % Monocytes % 9.1 % Eosinophils % 1.4 % Basophils % 0.9 % Neutrophils # 3.7 (1.6-8.9) K/mcL Lymphocytes # 1.4 (0.6-4.6) K/mcL Monocytes # 0.5 (0.0-1.3) K/mcL Eosinophils # 0.1 (0.0-0.6) K/mcL Basophils # 0.1 (0.0-0.2) K/mcL Sodium 138 (136-145) mEq/L Potassium 3.8 (3.5-4.5) mEq/L Chloride 102 (98-109) mEq/L Carbon Dioxide 22 (19-29) mEq/L BUN 16 (8-26) mg/dL Creatinine 0.99 (0.72-1.25) mg/dL Est GFR ( Amer) > 60 (> 60) Est GFR (Non-Af Amer) > 60 (> 60) BUN/Creatinine Ratio 16 (6-26) Glucose 101 H (70-99) mg/dL Calculated Osmolality 287 (280-300) Calcium 10.1 (8.6-10.8) mg/dL Troponin I (0-0.03) ng/mL Urine Opiates Screen Negative (Ugoxnp=743) ng/mL Ur Barbiturates Screen Negative (Ktbmfh=522) ng/mL Ur Phencyclidine Scrn Negative (Cutoff=25) ng/mL Ur Amphetamines Screen Negative (Rnspvi=1533) ng/mL U Benzodiazepines Scrn Negative (Tukcti=243) ng/mL Urine Cocaine Screen Negative (Cutoff= 300) ng/mL U Marijuana (THC) Screen Negative (Cutoff = 50) ng/mL Ethyl Alcohol < 10 (0-10) mg/dL 02/01/17 Range/Units 19:13 WBC (4.3-11.1) K/mcL RBC (4.19-5.50) M/mcL Hgb (12.9-16.9) g/dL Hct (37.5-50.1) % MCV (83.0-100.0) fL MCH (28.0-33.3) pg MCHC (31.6-35.5) g/dL RDW (11.5-14.5) % Plt Count (140-400) K/mcL MPV (9.4-12.4) fL Immature Gran % (0-4) % Seg Neutrophils % % Lymphocytes % % Monocytes % % Eosinophils % % Basophils % % Neutrophils # (1.6-8.9) K/mcL Lymphocytes # (0.6-4.6) K/mcL Monocytes # (0.0-1.3) K/mcL Eosinophils # (0.0-0.6) K/mcL Basophils # (0.0-0.2) K/mcL Sodium (136-145) mEq/L Potassium (3.5-4.5) mEq/L Chloride (98-109) mEq/L Carbon Dioxide (19-29) mEq/L BUN (8-26) mg/dL Creatinine (0.72-1.25) mg/dL Est GFR ( Amer) (> 60) Est GFR (Non-Af Amer) (> 60) BUN/Creatinine Ratio (6-26) Glucose (70-99) mg/dL Calculated Osmolality (280-300) Calcium (8.6-10.8) mg/dL Troponin I 0.01 (0-0.03) ng/mL Urine Opiates Screen (Zgqntf=635) ng/mL Ur Barbiturates Screen (Jgdzes=291) ng/mL Ur Phencyclidine Scrn (Cutoff=25) ng/mL Ur Amphetamines Screen (Gpkmqx=1145) ng/mL U Benzodiazepines Scrn (Btzecm=203) ng/mL Urine Cocaine Screen (Cutoff= 300) ng/mL U Marijuana (THC) Screen (Cutoff = 50) ng/mL Ethyl Alcohol (0-10) mg/dL - Radiology Data Radiology results reviewed: Yes I reviewed the patient's radiology results. - EKG Data EKG attestation: Yes I reviewed and interpreted this EKG. EKG results narrative: Review of 87. No sinus rhythm. Left axis deviation. TX interval 144. QRS 70. QT 397. No signs of acute ischemia. EKG shows normal: sinus rhythm Critical Care Time Critical Care Time: Yes Total Critical Care Time: 35 Attestation: Critical care time spent on medical management, fluid resuscitation, tremor management and alcohol withdrawal management.
[2017-02-01] MEDS ORDERED: Ringers Solution, Lactated 1,000 ML IVC ONE (19:03)
[2017-02-01 19:15] LABS: Amphetamine Screen,Urine Negative ng/mL (Cutoff=1000); Barbiturate Screen,Urine Negative ng/mL (Cutoff=200); Benzodiazepines Screen,Urine Negative ng/mL (Cutoff=200); Cannabinoid Screen,Urine Negative ng/mL (Cutoff = 50); Cocaine Screen,Urine Negative ng/mL (Cutoff= 300); Opiate Screen,Urine Negative ng/mL (Cutoff=300); Phencyclidine Screen,Urine Negative ng/mL (Cutoff=25)
[2017-02-01] MEDS ORDERED: Ondansetron 4 MG/2 ML VIAL IVP ONE (19:20)
[2017-02-01 19:46] LABS: Basophils # 0.1 K/mcL (0.0-0.2); Basophils % 0.9 %; Eosinophils # 0.1 K/mcL (0.0-0.6); Eosinophils % 1.4 %; Hematocrit 43.8 % (37.5-50.1); Immature Granulocytes % 0.3 % (0-4); Lymphocytes # 1.4 K/mcL (0.6-4.6); Lymphocytes % 24.8 %; Mean Corpuscular HGB Conc 32.2 g/dL (31.6-35.5); Mean Corpuscular Hemoglobin 25.9 pg (28.0-33.3); Mean Platelet Volume 10.2 fL (9.4-12.4); Monocytes # 0.5 K/mcL (0.0-1.3); Monocytes % 9.1 %; Neutrophils # 3.7 K/mcL (1.6-8.9); Platelet Count 198 K/mcL (140-400); Red Blood Count 5.44 M/mcL (4.19-5.50); Red Cell Distribution Width 20.4 % (11.5-14.5); Segmented Neutrophils % 63.5 %
[2017-02-01 19:47] LABS: BUN/Creatinine Ratio 16 (6-26); Blood Urea Nitrogen 16 mg/dL (8-26); Calcium 10.1 mg/dL (8.6-10.8); Carbon Dioxide 22 mEq/L (19-29); Chloride 102 mEq/L (98-109); Glucose 101 mg/dL (70-99); Osmolality,Calculated 287 (280-300); Potassium 3.8 mEq/L (3.5-4.5); Sodium 138 mEq/L (136-145); eGFR For African Americans > 60 (> 60); eGFR For Non-African Americans > 60 (> 60)
[2017-02-01 19:48] LABS: Ethanol < 10 mg/dL (0-10)
[2017-02-01 19:56] LABS: Hemoglobin 14.1 g/dL (12.9-16.9); Mean Corpuscular Volume 80.5 fL (83.0-100.0)
[2017-02-01 20:12] LABS: Prothrombin Time 11.2 Seconds (9.4-12.1)
[2017-02-01 20:15] LABS: Activated Partial Thrombo Time 28.5 Seconds (26.0-36.0)
[2017-02-01] MEDS ORDERED: Pantoprazole 40 MG VIAL IVP STA (20:15)
[2017-02-01] MEDS ORDERED: *HR* Promethazine 25 MG/ML VIAL IVP PRN ×2 (20:15)
[2017-02-01] MEDS ORDERED: *HR* LORazepam 2 MG/ML VIAL IVP PRN ×2 (20:15)
[2017-02-01] MEDS ORDERED: Mag Hydrox/Al Hydrox/Simeth 30 ML UDC PO PRN (20:15)
[2017-02-01] MEDS ORDERED: Naloxone 0.4 MG/ML INJ IVP PRN (20:15)
[2017-02-01] MEDS ORDERED: Acetaminophen 325 MG TABLET PO PRN (20:15)
[2017-02-01] MEDS ORDERED: Ipratropium/Albuterol Neb 3 ML IH PRN (20:34)
[2017-02-01] MEDS ORDERED: Benzonatate 100 MG CAPSULE PO PRN (20:34)
[2017-02-01] MEDS ORDERED: GI Cocktail 40 ML EACH PO ONE (20:37)
[2017-02-01 21:03] LABS: VBG HCO3 22.4 mEq/L (21-27); VBG PH 7.56 pH Units (7.32-7.42)
[2017-02-01 21:19] LABS: Amylase 35 Units/L (25-125); Chol/HDL Ratio 3.3 (0-4.9); Lipase 39 Units/L (8-78); Magnesium 1.6 mg/dL (1.6-2.6); Phosphorous 2.2 mg/dL (2.3-4.7)
--- NOTE | 2017-02-01 21:45 | Internal Med History&Physical ---
Date of Encounter: 02/01/17 Time of Encounter: 21:00 Assessment and Plan (1) Acute, mixed level of activity, alcohol withdrawal delirium Current visit: Yes Status: Acute . (2) Chest pain, rule out acute myocardial infarction Current visit: Yes Status: Acute . (3) Chest pain with low risk of acute coronary syndrome Current visit: Yes Status: Acute . (4) Acute chest wall pain Current visit: Yes Status: Acute . (5) Gastritis and duodenitis Current visit: Yes Status: Acute . (6) History of substance abuse Current visit: Yes Status: Chronic . (7) Alcoholic encephalopathy Current visit: Yes Status: Chronic . (8) Schizoaffective disorder, bipolar type without good prognostic features Current visit: Yes Status: Chronic . (9) Pancreatic insufficiency Current visit: Yes Status: Chronic . (10) Tobacco abuse Current visit: Yes Status: Chronic . (11) COPD (chronic obstructive pulmonary disease) Current visit: Yes Status: Chronic . Qualifiers: COPD type: unspecified COPD Qualified Code(s): J44.9 - Chronic obstructive pulmonary disease, unspecified (12) Coronary artery disease Current visit: Yes Status: Chronic . Qualifiers: Coronary Disease-Associated Artery/Lesion type: [place] artery Associated angina: with unspecified angina Qualified Code(s): I25.119 - Atherosclerotic heart disease of [place] coronary artery with unspecified angina pectoris (13) Essential hypertension Current visit: Yes Status: Chronic . (14) Toxic metabolic encephalopathy Current visit: Yes Status: Acute . (15) Delirium due to conditions classified elsewhere Current visit: Yes Status: Acute . (16) Alcohol abuse with alcohol-induced disorder Current visit: Yes Status: Acute . (17) Accelerated secondary hypertension Current visit: Yes Status: Acute . (18) DTs (delirium tremens) Current visit: Yes Status: Acute . Internal Medicine - H&P: HPI Chief complaint: Chest Pain Admitted From: Emergency Dept Plans for Post Hospital Care: Home History of present illness: Mr. 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 The patient is admitted to the [facility] to the emergency department when he presents by EMS services from home with complaints of acute onset of chest pain. Said he had the onset of chest pain while at rest that lasted approximately 45 minutes that began the evening prior to presentation. It was associated with diaphoresis nausea shakiness and lightheadedness and persistent malaise after the fact. Intravenous history of multiple risk factors for cardiovascular disease with history of previous acute myocardial infarction. He denies any active recreational drug use. However he is a long standing chronic alcoholic and presents with evidence of acute alcohol withdrawal and delirium tremens. He reports drinking approximately 800 mL 2000 mL of vodka daily. He missed his usual amount to the presentation due to his general malaise and feeling of ill health from his episode of chest pain. When he presented with substernal and had no radiation he denied any modifying factors present EMS services gave him sublingual nitroglycerin in route to the ED which seemed to help but incompletely. He was also given aspirin. Pain upon arrival to the ED was rated as a 6-8/10 severity constant present. Substernal moderate to severe. He described it as a tightness and aching sensation without radiation. The patient seemed to improve but nothing seemed to worsen at one present. It was associated with some nausea and a feeling of lightheadedness and near-syncope. Vital signs at presentation included a temperature of 98.1 pulse 8906 respirations 20-32 BP 160/102 saturation 100% on room air. He was treated acutely in the ED with intravenous Ativan and morphine and fluid rehydration therapy.. Screening studies showed benign CBC with differential and comprehensive metabolic profile and urine drug screen. Troponin was 0.01. EKG showed no acute ischemic changes. Chest x-ray demonstrated no acute or active cardiopulmonary process. The patient acknowledges increased worry and gross personal stressors currently active. Did not elaborate. Preliminary impression suggests chest pain syndrome with typical and atypical features for angina pectoris cardiac origin. Inducible chest pain component compatible with musculoskeletal /costochondral aggravation patient with market acute anxiety, tremulousness and encephalopathy with mild delirium. Prominent histrionics on exam are apparent. The patient presents at risk for further clinical decline and morbidity in this setting presenting concerns, clinical findings and comorbidities. Rule out protocols for ACS/UA received. CIWA/SAS/ acute delirium protocols have been activated. Workup and treatments will proceed comprehensively. The patient was visited and interviewed and examined. Cumulative laboratory and radiographic database was reviewed and considered. Consultative opinion be sought as clinical circumstances justify. Initial consultative opinion has been requested of cardiology. Acute coronary syndrome/unstable angina pectoris treatment protocols/ surveillance initiated. CIWA/SAS protocols/surveillance initiated. Precautions include: Aspiration, fall, seizure, delirium, etc. Plan of care has been discussed in detail with patient. Questions addressed. Issues concerning treatment and diagnoses were discussed. There were no barriers to patient understanding. the explanation was well received by the patient who then verbalized understanding. Hospital course will be dependent upon clinical findings, treatment response and /or potential consultative interventions. Given the patient's presenting concerns, past medical history, clinical findings and symptoms, he is admitted at this time to undergo further evaluation and disposition. Condition is serious. Prognosis is guarded. CODE STATUS is full. Orders written as per the computerized physician order caller system. Past Med Surg Social Fam HX - Past Medical History Source: old records reviewed Medical history: arthritis, cirrhosis, COPD, coronary artery disease, CVA, GERD , hepatitis, hyperlipidemia, hypertension, liver disease, migraine, myocardial infarction, osteoporosis (Vitamin D deficiency.), syncope, TIA, other ( Pancreatic insufficiency. Chronic musculoskeletal pain syndrome. Chronic alcoholism.) Psychiatric history: anxiety, bipolar, depression, schizophrenia, previous psychiatric hospitalization, other - Past Surgical History Surgical History: appendectomy, cholecystectomy, other (Partial Pancreatectomy, surgeries for partial bowel resection, PEG insertion, temporary ileostomy and reversal.) - Social History Smoking Status: Current every day smoker Smokeless Tobacco Status: No Alcohol use: heavy, recent Drug use: none, unknown Occupational status: unemployed Current living situation: Home - Independent Activity Level: Independent ambulation, Mostly sedentary Recent Out of Country Travel Within the Last 8 Weeks: No Exposure or Possible Exposure to Illness During Travel: No - Family History Mother Family Member Ethnicity: Non- Living Status: Still Living Hx Family Cardiac Disorders: Yes (htn) Hx Family Respiratory Disorders: No Hx Family Cancer: Yes (Colon) Hx Family GI Disorders: No Hx Family Endocrine Disorder: No Hx Family Neuromuscular Disorders: Yes (Neuropathy) Hx Family Neurologic Disorders: No Hx Family HEENT Disorders: No Hx Family Autoimmune Disorders: No Father Living Status: Internal Medicine - H&P: Meds RX: Albuterol Sulfate [Proair Hfa] 2 puff IH Q6H PRN 12/21/16 [History] RX: Amlodipine Besylate 10 mg PO DAILY 12/21/16 [History] RX: Budesonide/Formoterol 160/4.5 [Symbicort 160/4.5] 1 puff IH BID 12/21/16 [ History] RX: Cholecalciferol (D-3) [Vitamin D] 1,000 unit PO DAILY 12/21/16 [History] RX: Cyanocobalamin (Vitamin B-12) [Vitamin B12] 500 mcg PO DAILY 12/21/16 [ History] RX: Divalproex (24 HR) [Depakote ER (24 HR)] 1,250 mg PO HS 12/21/16 [History] RX: Ergocalciferol (VITAMIN D2) [Vitamin D2] 50,000 unit PO QWEEK 12/21/16 [ History] RX: Folic Acid 2 mg PO DAILY 12/21/16 [History] RX: Gabapentin [Neurontin] 600 mg PO TID 12/21/16 [History] RX: Lipase/Protease/Amylase [Creon Dr 36,000 Units Capsule] 36,000 unit PO TID 12/21/16 [History] RX: Magnesium Oxide [Mag-Ox] 400 mg PO BID 12/21/16 [History] RX: Mirtazapine 7.5 mg PO HS 12/21/16 [History] RX: Omeprazole [PriLOSEC] 20 mg PO DAILY 12/21/16 [History] RX: Quetiapine Fumarate [Seroquel] 300 mg PO HS 12/21/16 [History] RX: SUMAtriptan [Imitrex] 6 mg SQ BID PRN 12/21/16 [History] RX: Thiamine (B-1) [Vitamin B-1] 100 mg PO BID 12/21/16 [History] RX: TraZODone 50 mg PO TID 12/21/16 [History] Chlordiazepoxide [Librium] 25 mg PO TID PRN #40 capsule 12/25/16 [Rx] RX: Lisinopril [Zestril] 10 mg PO DAILY #30 tablet 12/25/16 [Rx] RX: Metoprolol [Lopressor] 50 mg PO BID #30 tablet 12/25/16 [Rx] Allergies No Known Allergies Allergy (Verified 10/12/16 03:54) All Systems PM: A 10-system review of systems was performed and is negative for pertinent findings except as documented above in the HPI. - Constitutional Constitutional: as per HPI, fatigue, malaise, weakness, other, no chills, no fever(s), no night sweats - EENT Eyes: as per HPI, no change in vision, no discharge, no pain, no photophobia Ears: as per HPI, no ear discharge, no ear pain, no tinnitus Nose, mouth and throat: as per HPI, no dysphagia, no nasal discharge, no neck pain, no sore throat - Cardiovascular Cardiovascular ROS IM: as per HPI, chest pain, dyspnea on exertion, other, no diaphoresis, no dyspnea, no lightheadedness, no palpitations, no syncope - Respiratory Respiratory: as per HPI, no cough, no dyspnea, no wheezing, no excessive phlegm production - Gastrointestinal Gastrointestinal: as per HPI, abdominal pain, bloating, cramping, nausea, vomiting, no coffee ground emesis, no diarrhea, no hematemesis, no hematochezia , no loose stools, no melena - Genitourinary Genitourinary ROS male: as per HPI - Musculoskeletal Musculoskeletal ROS IM: as per HPI, no numbness, no tingling - Integumentary Integumentary IM: as per HPI, no rash, no unusual bruising - Neurological Neurological ROS: as per HPI, frequent falls, weakness, other, no confusion, no convulsions, no focal weakness, no numbness, no tingling, no tremor(s) - Psychiatric Psychiatric: as per HPI, other - Endocrine Endocrine IM: as per HPI - Hematologic/Lymphatic Hematologic/Lymphatic: as per HPI, no easy bruising - Allergic/Immunologic Allergic/Immunologic: as per HPI - Constitutional Vitals: Temp Pulse Resp BP Pulse Ox 98.9 F 104 16 194/119 94 02/01/17 21:04 02/01/17 21:04 02/01/17 21:04 02/01/17 21:04 02/01/17 21:04 Vital Signs Temp Pulse Resp BP Pulse Ox 02/01/17 21:04 98.9 F 104 16 194/119 94 02/01/17 20:49 20 163/121 02/01/17 20:06 86 22 160/102 99 02/01/17 19:37 89 22 160/102 100 02/01/17 18:36 98.1 F 106 32 158/107 100 Intake and Output 02/01/17 02/01/17 02/01/17 07:59 15:59 23:59 Other: Weight 99.926 kg Patient Weight 02/01/17 23:59 Weight 99.926 kg General appearance: Present: cooperative, disheveled, mild distress, A&O X 3, obese, answers questions appropriately - Head Head exam: Present: atraumatic, normocephalic - Eye Eye exam: Present: EOMI, PERRL, conjuntiva pink, sclera anicteric Pupils: Present: normal accommodation, PERRL - ENT ENT exam: Present: mucous membranes moist, normal oropharynx - Neck Neck exam general surgery: Present: full ROM, supple, trachea midline. Absent: lymphadenopathy, nuchal rigidity - Respiratory Respiratory exam: Present: decreased breath sounds, rhonchi, wheezes. Absent: accessory muscle use, CTAB, rales, stridor - Cardiovascular Cardiovascular exam: Present: distant heart sounds, RRR, +S1, +S2, tachycardia. Absent: diastolic murmur, gallop, rubs, systolic murmur - GI/Abdominal GI/Abdominal exam: Present: diminished bowel sounds, normal bowel sounds, soft, no peritoneal signs. Absent: distended, tenderness - Extremities Exam Extremities exam: Present: full ROM, warm, radial pulses palpable and symetrical. Absent: calf tenderness, cyanotic, pedal edema - Neurological Exam Neurological exam: Present: alert, altered, CN II-XII intact, oriented X3, no focal deficits. Absent: pronater drift, facial droop, speech deficit - Expanded Neurological Exam Neurological exam expanded: Present: ataxia, inattentive, protecting the airway , tremor. Absent: expressive aphasia, receptive aphasia Patient oriented to: Present: person, place, time Speech: Present: garbled Coma Scale Eye Opening: Spontaneous Coma Scale Motor Response: Obeys Commands Coma Scale Verbal Response: Oriented Coma Scale Total: 15 - Psychiatric Psychiatric exam: Present: anxious, normal affect, normal mood - Expanded Psychiatric Exam Focused psych exam: Present: restlessness - Skin Skin exam: Present: dry, intact, warm. Absent: petechiae, rash, urticaria, vesicles Internal Med - H&P Results - Labs CBC & Chem 7: 02/03/17 03:14 02/03/17 03:14 Labs: Short CBC 02/01/17 Range/Units 19:13 WBC 5.8 (4.3-11.1) K/mcL Hgb 14.1 (12.9-16.9) g/dL Hct 43.8 (37.5-50.1) % Plt Count 198 (140-400) K/mcL Neutrophils # 3.7 (1.6-8.9) K/mcL BMP 02/01/17 Range/Units 19:13 Sodium 138 (136-145) mEq/L Potassium 3.8 (3.5-4.5) mEq/L Chloride 102 (98-109) mEq/L Carbon Dioxide 22 (19-29) mEq/L BUN 16 (8-26) mg/dL Creatinine 0.99 (0.72-1.25) mg/dL Glucose 101 H (70-99) mg/dL Calcium 10.1 (8.6-10.8) mg/dL Cardiac Enzymes 02/01/17 02/01/17 Range/Units 20:30 19:13 Troponin I 0.01 0.01 (0-0.03) ng/mL Abnormal lab results MCV 80.5 fL (83.0-100.0) L 02/01/17 19:13 MCH 25.9 pg (28.0-33.3) L 02/01/17 19:13 RDW 20.4 % (11.5-14.5) H 02/01/17 19:13 VBG pH 7.56 pH Units (7.32-7.42) H 02/01/17 20:30 VBG pCO2 25 mmHg (41-51) L 02/01/17 20:30 VBG pO2 111 mmHg (25-40) H 02/01/17 20:30 Glucose 101 mg/dL (70-99) H 02/01/17 19:13 Ionized Calcium 1.04 mmol/L (1.15-1.35) L 02/01/17 20:30 Phosphorus 2.2 mg/dL (2.3-4.7) L 02/01/17 20:30 LDL Cholesterol, Calc 119 mg/dL (0-99) H 02/01/17 20:30 Laboratory Results WBC 5.8 K/mcL (4.3-11.1) 02/01/17 19:13 RBC 5.44 M/mcL (4.19-5.50) 02/01/17 19:13 Hgb 14.1 g/dL (12.9-16.9) 02/01/17 19:13 Hct 43.8 % (37.5-50.1) 02/01/17 19:13 MCV 80.5 fL (83.0-100.0) L 02/01/17 19:13 MCH 25.9 pg (28.0-33.3) L 02/01/17 19:13 MCHC 32.2 g/dL (31.6-35.5) 02/01/17 19:13 RDW 20.4 % (11.5-14.5) H 02/01/17 19:13 Plt Count 198 K/mcL (140-400) 02/01/17 19:13 MPV 10.2 fL (9.4-12.4) 02/01/17 19:13 Immature Gran % 0.3 % (0-4) 02/01/17 19:13 Seg Neutrophils % 63.5 % 02/01/17 19:13 Lymphocytes % 24.8 % 02/01/17 19:13 Monocytes % 9.1 % 02/01/17 19:13 Eosinophils % 1.4 % 02/01/17 19:13 Basophils % 0.9 % 02/01/17 19:13 Neutrophils # 3.7 K/mcL (1.6-8.9) 02/01/17 19:13 Lymphocytes # 1.4 K/mcL (0.6-4.6) 02/01/17 19:13 Monocytes # 0.5 K/mcL (0.0-1.3) 02/01/17 19:13 Eosinophils # 0.1 K/mcL (0.0-0.6) 02/01/17 19:13 Basophils # 0.1 K/mcL (0.0-0.2) 02/01/17 19:13 PT 11.2 Seconds (9.4-12.1) 02/01/17 19:13 INR 1.0 02/01/17 19:13 APTT 28.5 Seconds (26.0-36.0) 02/01/17 19:13 VBG pH 7.56 pH Units (7.32-7.42) H 02/01/17 20:30 VBG pCO2 25 mmHg (41-51) L 02/01/17 20:30 VBG pO2 111 mmHg (25-40) H 02/01/17 20:30 VBG HCO3 22.4 mEq/L (21-27) 02/01/17 20:30 Sodium 138 mEq/L (136-145) 02/01/17 19:13 Potassium 3.8 mEq/L (3.5-4.5) 02/01/17 19:13 Chloride 102 mEq/L (98-109) 02/01/17 19:13 Carbon Dioxide 22 mEq/L (19-29) 02/01/17 19:13 BUN 16 mg/dL (8-26) 02/01/17 19:13 Creatinine 0.99 mg/dL (0.72-1.25) 02/01/17 19:13 Est GFR ( Amer) > 60 (> 60) 02/01/17 19:13 Est GFR (Non-Af Amer) > 60 (> 60) 02/01/17 19:13 BUN/Creatinine Ratio 16 (6-26) 02/01/17 19:13 Glucose 101 mg/dL (70-99) H 02/01/17 19:13 Calculated Osmolality 287 (280-300) 02/01/17 19:13 Lactic Acid 1.0 mmol/L (0.5-2.2) 02/01/17 20:30 Calcium 10.1 mg/dL (8.6-10.8) 02/01/17 19:13 Ionized Calcium 1.04 mmol/L (1.15-1.35) L 02/01/17 20:30 Phosphorus 2.2 mg/dL (2.3-4.7) L 02/01/17 20:30 Magnesium 1.6 mg/dL (1.6-2.6) 02/01/17 20:30 Troponin I 0.01 ng/mL (0-0.03) 02/01/17 20:30 Triglycerides 89 mg/dL (< 150) 02/01/17 20:30 Cholesterol 196 mg/dL (< 200) 02/01/17 20:30 LDL Cholesterol, Calc 119 mg/dL (0-99) H 02/01/17 20:30 VLDL Cholesterol, Calc 18 mg/dL (< 31) 02/01/17 20:30 HDL Cholesterol 59 mg/dL (40-59) 02/01/17 20:30 Cholesterol/HDL Ratio 3.3 (0-4.9) 02/01/17 20:30 Amylase 35 Units/L (25-125) 02/01/17 20:30 Lipase 39 Units/L (8-78) 02/01/17 20:30 Urine Opiates Screen Negative ng/mL (Plodfm=741) 02/01/17 19:00 Ur Barbiturates Screen Negative ng/mL (Wkfpvd=649) 02/01/17 19:00 Ur Phencyclidine Scrn Negative ng/mL (Cutoff=25) 02/01/17 19:00 Ur Amphetamines Screen Negative ng/mL (Aoawos=5516) 02/01/17 19:00 U Benzodiazepines Scrn Negative ng/mL (Nptyzc=824) 02/01/17 19:00 Urine Cocaine Screen Negative ng/mL (Cutoff= 300) 02/01/17 19:00 U Marijuana (THC) Screen Negative ng/mL (Cutoff = 50) 02/01/17 19:00 Ethyl Alcohol < 10 mg/dL (0-10) 02/01/17 19:13 Impressions Chest X-Ray 02/01/17 18:44 IMPRESSION: No acute cardiopulmonary disease. D/ / 02/01/2017 19:55:06 Zachariah Macedo MD / jaimie Interpreting Provider: Zachariah Macedo MD - ABG Interpretation ABG results: 02/01/17 20:30 VBG pH 7.56 H VBG pCO2 25 L VBG pO2 111 H VBG HCO3 22.4
[2017-02-01] MEDS: Divalproex (24 HR) 250 MG TABLET PO SCH (22:26)
[2017-02-01] MEDS: Thiamine (B-1) 100 MG TABLET PO SCH (22:28)
[2017-02-01] MEDS: Melatonin 3 MG TABLET PO SCH (22:32)
[2017-02-01] MEDS: Multivit/Ca/Min/Fe/FA 1 TAB TABLET PO SCH (22:32)
[2017-02-01] MEDS: Magnesium Oxide 400 MG TABLET PO SCH (22:32)
[2017-02-01] MEDS: Nicotine 21 MG PATCH.TD24 TD SCH (22:33)
[2017-02-01] MEDS: Thiamine (B-1) 100 MG, Folic Acid 1 MG, MVI, adult with vitamin K 10 ML in 0.9 % Sodi... IVPB SCH (22:34)
[2017-02-01] MEDS: Gabapentin 300 MG CAPSULE PO SCH (22:34)
[2017-02-01] MEDS: *HR* LORazepam 2 MG/ML VIAL IVP PRN (22:42)
[2017-02-01] MEDS: *HR* OxyCODONE Immed Rel 5 MG TABLET PO PRN (22:47)
[2017-02-02 00:44] LABS: Bilirubin,Urine Negative (Negative); Blood,Urine Negative (Negative); Clarity,Urine Clear (Clear); Color,Urine Yellow (Yellow); Glucose,Urine (UA) Normal (Normal); Ketones,Urine Negative (Negative); Leukocyte Esterase,Urine Negative (Negative); Nitrite,Urine Negative (Negative); Protein,Urine Trace mg/dL (Neg-Trace); Specific Gravity,Urine 1.023 (1.010-1.025); Urobilinogen,Urine Normal (Normal)
[2017-02-02 00:45] LABS: Bacteria,Urine None Seen per hpf (None-Few); Hyaline Casts,Urine None Seen per lpf (None-Few); RBC,Urine 0-3 per hpf (0-3); Squamous Epithelial Cell,Urine Moderate per lpf (None-Few); WBC,Urine 0-3 per hpf (0-3)
[2017-02-02] MEDS ORDERED: Sodium Phosphate 30 MMOL in D5% in Water 100 ML IVPB ONE (00:47)
[2017-02-02] MEDS ORDERED: Calcium Gluconate 1,000 MG in D5% in Water 100 ML IVPB STA (00:47)
[2017-02-02] MEDS ORDERED: Magnesium Sulfate 1 GM in D5% in Water 100 ML IVPB STA (00:47)
[2017-02-02] MEDS: *HR* Morphine 2 MG/ML SYRINGE IVP PRN ×3 (02:10→20:53)
[2017-02-02 03:48] LABS: Hemoglobin A1C 4.9 %
[2017-02-02 03:53] LABS: Alanine Aminotransferase 66 Units/L (0-55); Albumin 3.4 g/dL (3.5-5.0); Alkaline Phosphatase 66 Units/L (38-126); Aspartate Amino Transferase 68 Units/L (5-34); BUN/Creatinine Ratio 17 (6-26); Bilirubin,Total 0.8 mg/dL (0.2-1.2); Blood Urea Nitrogen 17 mg/dL (8-26); Calcium 8.8 mg/dL (8.6-10.8); Carbon Dioxide 24 mEq/L (19-29); Chloride 106 mEq/L (98-109); Globulin 3.3 g/dL (2.4-3.5); Glucose 104 mg/dL (70-99); Osmolality,Calculated 288 (280-300); Potassium 3.6 mEq/L (3.5-4.5); Sodium 138 mEq/L (136-145); Total Protein 6.7 g/dL (6.0-8.3); eGFR For African Americans > 60 (> 60); eGFR For Non-African Americans > 60 (> 60)
[2017-02-02 04:13] LABS: Thyroid Stimulating Hormone 5.937 mcIU/mL (0.350-4.840)
[2017-02-02] MEDS: *HR* Enoxaparin 40 MG/0.4 ML SYRINGE SQ SCH (06:18)
[2017-02-02] MEDS: Pantoprazole 40 MG VIAL IVP SCH ×2 (06:18→16:34)
[2017-02-02] MEDS: amLODIPine 5 MG TABLET PO SCH (09:45)
[2017-02-02] MEDS: Thiamine (B-1) 100 MG TABLET PO SCH (09:45)
[2017-02-02] MEDS: Magnesium Oxide 400 MG TABLET PO SCH ×2 (09:45→23:03)
[2017-02-02] MEDS: Multivit/Ca/Min/Fe/FA 1 TAB TABLET PO SCH (09:46)
[2017-02-02] MEDS: Gabapentin 300 MG CAPSULE PO SCH ×3 (09:46→23:04)
[2017-02-02] MEDS: Nicotine 21 MG PATCH.TD24 TD SCH (09:47)
[2017-02-02] MEDS: *HR* OxyCODONE Immed Rel 5 MG TABLET PO PRN ×2 (10:06→16:34)
--- NOTE | 2017-02-02 14:49 | Internal Med Progress Note ---
Date of Encounter: 02/02/17 Time of Encounter: 09:45 - Assessment and plan (1) Chest pain Current Visit: No Status: Resolved Assessment and plan: Patient reports chest pain that he has had previously "from withdrawal". It began while lying in bed last night at about midnight and lasted until 2 AM. Began again at 6:00 yesterday and is current. It is midsternal with radiation to the back. He reports back pain, shortness of breath, and describes the pain as sharp and pressure. He reports nausea and feeling gassy and having diarrhea. His last echocardiogram was February of last year LVEF is 60% mild concentric left ventricular hypertrophy, mild left ventricular diastolic dysfunction, and normal right ventricular structure and function. There was mild aortic regurgitation, [id number] tricuspid regurgitation and no pulmonary hypertension. History of troponins have been negative 3. Patient had been seen here twice yesterday actually, patient left in return. His initial visit here reported chest pain with diaphoresis and nausea and vomiting. Chest x-ray showed no acute cardiopulmonary process. I have ordered another echo. At this time it is not done. Results will probably not be done by this time I leave at 1900. Telemetry Pain medication as needed Monitor labs Monitor vital signs Pending echo Qualifiers: Chest pain type: unspecified Qualified Code(s): R07.9 - Chest pain, unspecified (2) Chronic headaches Current Visit: Yes Status: Acute Assessment and plan: Patient reports chronic migraine since age 7. He currently has a left frontal headache. His normal headaches are unpredictable and apparently migratory. Patient states that they happen in different places. He says he normally takes sumatriptan 10 for his headaches, however he has been out of it due to transportation issues. I have offered the patient Ultram, Tylenol, Motrin, and his sumatriptan for his headache. He says that morphine is the only thing that is helping. We discussed that narcotics are not a first line treatment for chronic headaches. He is upset with me and wishes to speak with the physician who admitted him. He is aware that that physician is not here and will not return until tonight. Qualifiers: Headache type: unspecified Intractability: not intractable Qualified Code (s): R51 - Headache (3) Alcohol withdrawal Current Visit: Yes Status: Acute Assessment and plan: Patient states that he has not had an drink in over 24 hours. He says that he normally drinks cheap vodka. He normally drinks almost a liter a day. Patient is experiencing headaches, chest pain, diarrhea. He is not interested in rehabilitation this time. He says he will take it "one day at a time". [facility] protocol Monitor labs Monitor patient Qualifiers: Complication of substance-induced condition: with unspecified complication Qualified Code(s): F10.239 - Alcohol dependence with withdrawal, unspecified (4) Psychiatric disorder Current Visit: No Status: Chronic Assessment and plan: Chronic. Bipolar disorder. Patient does not appear to be on medications at this time. During the evaluation patient denies suicidal or homicidal ideations. He says though he does feel helpless and hopeless and as if he were better off on many days. He says he has decreased activity and little enjoyment in things that he does. After patient is medically stable, if patient is agreeable 1 a consult. (5) Hypertension Current Visit: No Status: Acute Assessment and plan: Chronic. Continue home medications. Monitor pt labs and CIWA scale. Medicate per CIWA scale. Hydralazine 10mg IVP q6h prn systolic BP > 180mmHg. Qualifiers: Hypertension type: other secondary hypertension Qualified Code(s): I15.8 - Other secondary hypertension - Subjective Interval history: Patient was seen and assessed about 0945 AM this morning. His primary care nurse was in the room during the exam. Patient sitting up on side of bed and reports headache. He says currently it is left frontal however they are chronic and apparently migratory. He says they are all over the place, unpredictable, and in different locations. He says that he normally takes sumatriptan that was [facility] to [facility], however he has been out of it for several weeks due to transportation issues. Patient states he has had migraines since age 7. He says that morphine is the only thing that is helping his headaches. I told him that there is no indication that narcotics are first line treatment for migraines. He immediately begins asking for the physician who admitted him. 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 I told him I would be glad to give him his sumatriptan, tramadol, Tylenol, or Motrin for his headaches, but morphine is not a treatment for chronic headaches. He told the primary nurse after I left the room that he hated me and never wanted me to come back into the room again. He said the only wants to see Dr. Bowens. Patient reports chest pain that he knows his "from withdrawal ". He says he has this every time he decides to stop drinking. He says by the time he got here last night the chest pain had begun and he had not had a drink for 24 hours. The chest pain is substernal with radiation to his back. It began while lying in bed at rest at midnight last night and lasted until 2 AM. It began again at 4:00 and is current. He reports back pain, shortness of breath, and describes the pain as sharp and pressure. He says that he is nauseated and is gassy and has diarrhea. I attempted to discuss with him rehabilitation and he said he will take it "one day at a time". Last time he was in rehabilitation was 2 years ago and he does not want to return at this time. He is unemployed and homeless. He lives at a [place] [address] [place] [facility]. His sole income SSI and disability. 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 He says he feels helpless and hopeless and like he would be better off many days. He denies suicidal or homicidal ideations. - Constitutional Vitals: Temp Pulse Resp BP Pulse Ox 98.1 F 83 16 151/92 95 02/02/17 11:05 02/02/17 11:05 02/02/17 11:05 02/02/17 11:05 02/02/17 11:05 General appearance: Present: cooperative, disheveled, mild distress, A&O X 3, obese, answers questions appropriately. Absent: pleasant - Head Head exam: Present: normal inspection - Eye Eye exam: Present: normal appearance, conjuntiva pink - ENT ENT exam: Present: mucous membranes moist, normal exam - Neck Neck exam general surgery: Present: normal inspection. Absent: lymphadenopathy , tenderness - Respiratory Respiratory exam: Present: CTAB. Absent: chest wall tenderness, rales, rhonchi , wheezes - Cardiovascular Cardiovascular exam: Present: RRR, +S1, +S2. Absent: bradycardia, diastolic murmur, systolic murmur, tachycardia - GI/Abdominal GI/Abdominal exam: Present: normal bowel sounds, soft. Absent: tenderness - Neurological Exam Neurological exam: Present: alert, oriented X3, no focal deficits, strengths equal and symetr throughout. Absent: facial droop, speech deficit Internal Medicine: Result - Labs CBC & Chem 7: 02/01/17 19:13 02/02/17 02:38 Labs: BMP 02/02/17 02:38 Sodium 138 Potassium 3.6 Chloride 106 Carbon Dioxide 24 BUN 17 Creatinine 1.03 Glucose 104 H Calcium 8.8 Cardiac Enzymes 02/01/17 02/02/17 02/02/17 Range/Units 20:30 02:38 09:28 Troponin I 0.01 0.01 0.01 (0-0.03) ng/mL Liver Function 02/02/17 Range/Units 02:38 Total Bilirubin 0.8 (0.2-1.2) mg/dL AST 68 H (5-34) Units/L ALT 66 H (0-55) Units/L Alkaline Phosphatase 66 (38-126) Units/L Albumin 3.4 L (3.5-5.0) g/dL Urine 02/02/17 Range/Units 00:30 Urine Color Yellow (Yellow) Urine Clarity Clear (Clear) Urine pH 7.0 (5.0-8.0) pH Units Ur Specific [place] 1.023 (1.010-1.025) Urine Protein Trace (Neg-Trace) mg/dL Urine Glucose (UA) Normal (Normal) mg/dL - ABG Interpretation ABG results: PT/INR, D-dimer PT 11.2 Seconds (9.4-12.1) 02/01/17 19:13 - VTE Documentation of Mechanical Device: Graduated compression elastic hosiery Consult Discharge Plan - Plan Referrals: Emmanuel Gonzalez DO [Resident] - 02/24/17 2:00 pm
[2017-02-02] MEDS: *HR* LORazepam 2 MG/ML VIAL IVP PRN (16:35)
[2017-02-02] MEDS: Thiamine (B-1) 100 MG, Folic Acid 1 MG, MVI, adult with vitamin K 10 ML in 0.9 % Sodi... IVPB SCH (16:37)
[2017-02-02] MEDS ORDERED: Simethicone 80 MG TAB.CHEW PO PRN (21:28)
[2017-02-02] MEDS: Divalproex (24 HR) 250 MG TABLET PO SCH (23:03)
[2017-02-02] MEDS: Melatonin 3 MG TABLET PO SCH (23:04)
[2017-02-03] MEDS: *HR* LORazepam 2 MG/ML VIAL IVP PRN ×2 (01:19→23:23)
[2017-02-03] MEDS: *HR* Morphine 2 MG/ML SYRINGE IVP PRN ×3 (02:14→16:52)
[2017-02-03 02:53] LABS: Adenovirus F 40/41 PCR Not detected (Not detect); Astrovirus PCR Not detected (Not detect); Campylobacter by PCR Not detected (Not detect); Cryptosporidium by PCR Not detected (Not detect); Cyclospora cayetanensis PCR Not detected (Not detect); E. coli O157 by PCR Not detected (Not detect); Entamoeba histolytica PCR Not detected (Not detect); Enteroaggregative E.coli(EAEC) Not detected (Not detect); Enteropathogenic E.coli(EPEC) Not detected (Not detect); Enterotoxigenic E.coli (ETEC) Not detected (Not detect); Giardia lamblia PCR Not detected (Not detect); Norovirus GI/GII PCR Not detected (Not detect); Plesiomonas shigelloides PCR Not detected (Not detect); Rotavirus A PCR Not detected (Not detect); Salmonella PCR Not detected (Not detect); Sapovirus PCR Not detected (Not detect); Shig/EnteroinvasiveE coli EIEC Not detected (Not detect); Shigalike tox-prod E coli STEC Not detected (Not detect); Vibrio PCR Not detected (Not detect); Vibrio cholerae PCR Not detected (Not detect); Yersinia enterocolitica PCR Not detected (Not detect)
[2017-02-03 05:26] LABS: Basophils % 0.9 %; Eosinophils # 0.1 K/mcL (0.0-0.6); Eosinophils % 3.2 %; Hematocrit 36.8 % (37.5-50.1); Immature Granulocytes % 0.3 % (0-4); Mean Corpuscular HGB Conc 30.7 g/dL (31.6-35.5); Mean Corpuscular Hemoglobin 25.9 pg (28.0-33.3); Mean Corpuscular Volume 84.2 fL (83.0-100.0); Mean Platelet Volume 10.1 fL (9.4-12.4); Monocytes # 0.3 K/mcL (0.0-1.3); Monocytes % 8.1 %; Platelet Count 111 K/mcL (140-400); Red Blood Count 4.37 M/mcL (4.19-5.50); Segmented Neutrophils % 58.5 %
[2017-02-03 05:29] LABS: Hemoglobin 11.3 g/dL (12.9-16.9)
[2017-02-03 05:42] LABS: BUN/Creatinine Ratio 14 (6-26); Blood Urea Nitrogen 13 mg/dL (8-26); Calcium 8.7 mg/dL (8.6-10.8); Carbon Dioxide 22 mEq/L (19-29); Chloride 109 mEq/L (98-109); Glucose 105 mg/dL (70-99); Osmolality,Calculated 290 (280-300); Potassium 3.7 mEq/L (3.5-4.5); Sodium 140 mEq/L (136-145); eGFR For African Americans > 60 (> 60); eGFR For Non-African Americans > 60 (> 60)
--- NOTE | 2017-02-03 06:34 | Electrocardiograph Report ---
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
[2017-02-03] MEDS: *HR* Enoxaparin 40 MG/0.4 ML SYRINGE SQ SCH (06:57)
[2017-02-03] MEDS: Pantoprazole 40 MG VIAL IVP SCH ×2 (06:57→16:41)
[2017-02-03] MEDS: Nicotine 21 MG PATCH.TD24 TD SCH (07:59)
[2017-02-03] MEDS: Multivit/Ca/Min/Fe/FA 1 TAB TABLET PO SCH (08:02)
[2017-02-03] MEDS: Magnesium Oxide 400 MG TABLET PO SCH ×2 (08:02→21:51)
[2017-02-03] MEDS: Thiamine (B-1) 100 MG TABLET PO SCH (08:02)
[2017-02-03] MEDS: Gabapentin 300 MG CAPSULE PO SCH ×3 (08:03→21:52)
[2017-02-03] MEDS: amLODIPine 5 MG TABLET PO SCH (08:04)
[2017-02-03] MEDS: *HR* OxyCODONE Immed Rel 5 MG TABLET PO PRN ×2 (08:21→20:04)
--- NOTE | 2017-02-03 10:57 | ECHO - Doppler Report ---
Echocardiogram Name: Lauri Chen Date of Study: 02/02/2017 Date: 1955 Ht: 72.0 in Medical Record#: [id number] Age: 61 Wt: 225.0 lb Gender: Male BSA: 2.24 Order #: [id number] Location: [facility] Room #: 3B33 Reading Physician: Nima Johnson DO, EITAN LEONARD Fagoter: Gris Gomez Ordering Physician: Bekah Johnson CNP Primary Physician: None Indications: Chest pain Impressions: LVEF 60%. Normal LV chamber size and function. Mild concentric left ventricular hypertrophy. Mild left ventricular diastolic dysfunction. Normal right ventricular structure and function. Mild aortic regurgitation. No evidence of pulmonary hypertension. Left Ventricular Wall Motion: Rest Echo Findings All wall segments showed normal motion. Findings: Study Quality * Technically adequate exam. ECG Findings * Normal sinus rhythm. Left Ventricle * LVEF 60%. * Normal LV chamber size and function. * Mild concentric left ventricular hypertrophy. * Mild left ventricular diastolic dysfunction. Right Ventricle * Normal right ventricular structure and function. Left Atrium * Mildly dilated left atrium. Right Atrium * Mildly dilated right atrium. Interatrial Septum * Interatrial septum not well evaluated. Aortic Valve * Aortic valve not well visualized. Grossly, it appears sclerotic in some views. * Mild aortic regurgitation. * No aortic stenosis. Mitral Valve * Mild mitral annular calcification, especially posteriorly. * No mitral regurgitation. * No mitral stenosis. Tricuspid Valve * Normal tricuspid valve structure and function. * Trace tricuspid regurgitation. * No evidence of pulmonary hypertension. Pulmonic Valve * Normal pulmonic valve structure and function. * No pulmonic regurgitation. Aorta * Normally sized aortic root. Pericardium * The pericardium appears normal. IVC * Normal IVC dimensions and inspiratory collapse. Pulmonary Artery * Normal visualized portions of the main pulmonary artery. History Hypertension History of Smoking Years 40 Packs 1 Family History of CAD Myocardial Infarction 02/25/2016 a Previous Echo was performed. Measurements: BP: 151/ 99 2D Normal Values RVIDd: 3.10 cm <2.7 cm IVSd: 1.30 cm 0.6 - 1.0 cm LVIDd: 5.40 cm 3.7 - 5.6 cm LVPWd: 1.30 cm 0.6 - 1.1 cm LVIDs: 4.10 cm 1.5 - 3.6 cm AO: 2.40 cm < 4.0 cm LA: 3.50 cm 2.0 - 4.0cm %FS: 33.90 cm >25 % LA volume: 57 Mitral Valve Peak E:.74 m/sec Peak A:1.00 m/sec E/A Ratio:0.7 Aortic Valve AI pressure Half-time: 1286.00 msec Tricuspid Valve TV Regurg Peak Grad: 19.00mmHg TV Regurg Peak Sung: 2.20m/sec Updated by Nima Johnson DO, FACYony, EITAN, FASROSANGELA on 02/03/2017 10:50:27 AM electronically signed on 02/03/2017 10:52:04 AM with status of Final Wall Motion Damon: 1=Normal, 2=Hypokinesis, 3=Akinesis, 4=Dyskinesis, 5=Aneurysmal, 6=Hyperkinetic, X=Not Visualized (Blank)=Missing
--- NOTE | 2017-02-03 13:06 | Internal Med Progress Note ---
Date of Encounter: 02/03/17 Time of Encounter: 09:30 - Assessment and plan (1) Abdominal pain Current Visit: No Status: Chronic Assessment and plan: Patient with severe epigastric abdominal pain. He has extensive surgical history on his abdomen including appendectomy, cholecystectomy, partial pancreatectomy and several surgeries for partial bowel resection. He also formerly had a PEG tube. He also had a temporary ileostomy which was reversed. He currently complains of severe epigastric abdominal pain that is worsened with palpation and radiates straight through to his back. LFTs are unremarkable , will repeat. GI brought on board. Patient is a chronic alcoholic and states that he drinks at least a fifth of vodka per day and drinks chocolate milk and that is pretty much his entire intake. Strong suspicion for an ulcer. Possible EGD at GIs discretion. (2) Encephalopathy Current Visit: No Status: Resolved Assessment and plan: Patient alert and oriented 3. (3) Chest pain Current Visit: No Status: Resolved Assessment and plan: Patient denies chest pain at this time but rather focuses on epigastric abdominal pain. ACS has been ruled out. Chest x-ray negative. Troponins negative 4. Echocardiogram with ejection fraction of 60% and mild diastolic dysfunction. Patient euvolemic on examination. ITS Impressions Chest X-Ray 02/01/17 18:44 IMPRESSION: No acute cardiopulmonary disease. D/ / 02/01/2017 19:55:06 Zachariah Macedo MD / jaimie Interpreting Provider: Zachariah Macedo MD Echocardiogram impressions: LVEF 60%. Normal LV chamber size and function. Mild concentric left ventricular hypertrophy. Mild left ventricular diastolic dysfunction. Normal right ventricular structure and function. Mild aortic regurgitation. No evidence of pulmonary hypertension. Qualifiers: Chest pain type: unspecified Qualified Code(s): R07.9 - Chest pain, unspecified (4) Alcohol withdrawal Current Visit: Yes Status: Acute Assessment and plan: Patient stating he last drank on Thursday, risk for DTs approaching low at this point. Patient continues with withdrawal symptoms. Will schedule Librium with Ativan as needed for breakthrough withdrawal symptoms per protocol. He states he is interested in stopping drinking. He states that he plans to go home with his friend Devi Cast and he plans to stay there for couple weeks that he can attend AA meetings stating that he does not drive but he states his friend Devi lives close enough to meeting sites where he could walk. Qualifiers: Complication of substance-induced condition: with unspecified complication Qualified Code(s): F10.239 - Alcohol dependence with withdrawal, unspecified (5) Microcytic anemia Current Visit: No Status: Chronic Assessment and plan: Chronic, currently at the high end of his normal. We will continue to trend. (6) Psychiatric disorder Current Visit: No Status: Chronic Assessment and plan: Chronic. Bipolar disorder. Mood and affect stable although the patient is clearly employing manipulative behavior. Staff will remain vigilant. He has been strongly cautioned against verbal abuse of staff. He continues to state feelings of hopelessness but denies any suicidal or homicidal ideations at this time. There is no indication for acute inpatient psychiatric evaluation. (7) History of alcohol abuse Current Visit: No Status: Chronic (8) History of substance abuse Current Visit: Yes Status: Chronic Assessment and plan: Tox screen negative (9) Schizophrenia Current Visit: No Status: Chronic Qualifiers: Schizophrenia type: unspecified Qualified Code(s): F20.9 - Schizophrenia, unspecified (10) Bipolar disorder, unspecified Current Visit: No Status: Chronic Qualifiers: Active/Remission status: currently active Current bipolar episode type: mixed Current episode severity: unspecified Qualified Code(s): F31.60 - Bipolar disorder, current episode mixed, unspecified (11) Chronic back pain Current Visit: No Status: Chronic Assessment and plan: Checked his [place] report which is negative for any controlled substances since September 2016. Qualifiers: Back pain location: back pain in unspecified location Back pain laterality : unspecified Qualified Code(s): M54.9 - Dorsalgia, unspecified; G89.29 - Other chronic pain (12) DVT prophylaxis Current Visit: No Status: Acute Assessment and plan: Subcutaneous Lovenox (13) Protein malnutrition Current Visit: No Status: Chronic Assessment and plan: We will add ensure 3 times a day with meals. (14) Pancreatic insufficiency Current Visit: No Status: Chronic (15) Tobacco abuse Current Visit: Yes Status: Chronic Assessment and plan: Continues to smoke 1 pack per day. Nicotine patch. Declines counseling. (16) Paresthesias Current Visit: No Status: Chronic Assessment and plan: According to his [place]AR[place] report, patient has not received prescription for Lyrica since March 2016. This medication he states is very helpful to him but he states that he will not take it if he is drinking because he states alcohol helps his paresthesias just as well as Lyrica does. (17) Withdrawal symptoms, alcohol Current Visit: No Status: Acute Qualifiers: Complication of substance-induced condition: uncomplicated Qualified Code(s ): F10.230 - Alcohol dependence with withdrawal, uncomplicated (18) Hypertension Current Visit: No Status: Chronic Assessment and plan: Controlled. We will continue to trend and adjust medications as indicated. Qualifiers: Hypertension type: other secondary hypertension Qualified Code(s): I15.8 - Other secondary hypertension (19) COPD (chronic obstructive pulmonary disease) Current Visit: Yes Status: Acute Assessment and plan: Patient endorses shortness of breath above his norm. He does appear to be in a mild acute exacerbation. Decreased breath sounds throughout with diffuse expiratory wheezing present with fair aeration. Mild respiratory distress, will schedule his DuoNeb's and add by mouth prednisone Qualifiers: COPD type: COPD with acute exacerbation Qualified Code(s): J44.1 - Chronic obstructive pulmonary disease with (acute) exacerbation (20) Alcohol dependence Current Visit: No Status: Chronic (21) Toxic metabolic encephalopathy Current Visit: Yes Status: Resolved (22) Chronic headaches Current Visit: Yes Status: Chronic Assessment and plan: We will continue his home Imitrex. He currently denies headache. Qualifiers: Headache type: unspecified Intractability: not intractable Qualified Code (s): R51 - Headache - Subjective Interval history: Patient seen and examined. On examination, patient sitting upright on the side of his bed. He complains of severe epigastric pain that is now radiating through to his back. He states the pain is sharp and severe. He states he is eating well. He states at home, and he drinks "cheap vodka" and drinks chocolate milk and that is all of his intake per day typically. He is also endorsing shortness of breath above his norm. - Constitutional Vitals: Temp Pulse Resp BP Pulse Ox 98.0 F 87 16 130/86 97 02/03/17 10:46 02/03/17 10:46 02/03/17 10:46 02/03/17 10:46 02/03/17 10:46 General appearance: Present: cooperative, disheveled, mild distress, A&O X 3, obese, answers questions appropriately - Head Head exam: Present: atraumatic, normocephalic - Eye Eye exam: Present: PERRL, conjuntiva pink, sclera anicteric Pupils: Present: PERRL - Neck Neck exam general surgery: Present: supple, trachea midline. Absent: lymphadenopathy - Respiratory Respiratory exam: Present: accessory muscle use, decreased breath sounds, prolonged expiratory phase, respiratory distress (mild), wheezes. Absent: CTAB , rales, rhonchi - Cardiovascular Cardiovascular exam: Present: RRR, +S1, +S2. Absent: diastolic murmur, gallop, rubs, systolic murmur - GI/Abdominal GI/Abdominal exam: Present: distended, normal bowel sounds, soft, tenderness ( epigasgtric), no peritoneal signs - Extremities Exam Extremities exam: Present: warm, radial pulses palpable and symetrical. Absent : calf tenderness, cyanotic, pedal edema - Neurological Exam Neurological exam: Present: alert, CN II-XII intact, oriented X3, no focal deficits, strengths equal and symetr throughout. Absent: pronater drift, facial droop, speech deficit - Skin Skin exam: Present: dry, intact, normal color, warm Internal Medicine: Result - Labs CBC & Chem 7: 02/03/17 03:14 02/03/17 03:14 Labs: Short CBC 02/03/17 Range/Units 03:14 WBC 3.5 L (4.3-11.1) K/mcL Hgb 11.3 L D (12.9-16.9) g/dL Hct 36.8 L (37.5-50.1) % Plt Count 111 L (140-400) K/mcL Neutrophils # 2.0 (1.6-8.9) K/mcL BMP 02/03/17 03:14 Sodium 140 Potassium 3.7 Chloride 109 Carbon Dioxide 22 BUN 13 Creatinine 0.96 Glucose 105 H Calcium 8.7 - ABG Interpretation ABG results: PT/INR, D-dimer PT 11.2 Seconds (9.4-12.1) 02/01/17 19:13 - VTE Documentation of Mechanical Device: Graduated compression elastic hosiery Consult Discharge Plan - Plan Referrals: Emmanuel Gonzalez DO [Resident] - 02/24/17 2:00 pm
[2017-02-03 14:21] LABS: Albumin 3.9 g/dL (3.5-5.0); Bilirubin,Direct 0.2 mg/dL (0.0-0.5); Bilirubin,Indirect 0.4 mg/dL (0.0-1.2); Bilirubin,Total 0.6 mg/dL (0.2-1.2); Total Protein 7.9 g/dL (6.0-8.3)
[2017-02-03] MEDS: predniSONE 20 MG TABLET PO SCH (14:23)
[2017-02-03] MEDS: traZODone 50 MG TABLET PO SCH ×2 (14:24→21:51)
[2017-02-03 14:42] LABS: Triiodothyronine (T3) Free 3.73 pg/mL (1.71-3.71)
[2017-02-03] MEDS: Ipratropium/Albuterol Neb 3 ML IH SCH ×2 (16:11→21:15)
[2017-02-03] MEDS: Budesonide/Formoterol 160/4.5 MDI IH SCH ×2 (16:11→21:15)
[2017-02-03] MEDS: Thiamine (B-1) 100 MG, Folic Acid 1 MG, MVI, adult with vitamin K 10 ML in 0.9 % Sodi... IVPB SCH (16:41)
[2017-02-03] MEDS: Mirtazapine 15 MG TABLET PO SCH (21:51)
[2017-02-03] MEDS: Divalproex (24 HR) 250 MG TABLET PO SCH (21:52)
[2017-02-03] MEDS: Melatonin 3 MG TABLET PO SCH (21:53)
[2017-02-03] MEDS ORDERED: Water for inj. (sterile) 10 ML IV ONE (23:20)
[2017-02-03] MEDS: SUMAtriptan 6 MG/0.5 ML SQ PRN (23:43)
[2017-02-04] MEDS: Ipratropium/Albuterol Neb 3 ML IH SCH ×5 (04:05→23:03)
[2017-02-04] MEDS: *HR* Morphine 2 MG/ML SYRINGE IVP PRN ×2 (04:21→13:42)
[2017-02-04 05:01] LABS: Eosinophils % 0.2 %; Hematocrit 37.4 % (37.5-50.1); Hemoglobin 11.6 g/dL (12.9-16.9); Immature Granulocytes % 0.2 % (0-4); Lymphocytes # 0.8 K/mcL (0.6-4.6); Lymphocytes % 16.5 %; Mean Corpuscular Hemoglobin 26.1 pg (28.0-33.3); Mean Corpuscular Volume 84.2 fL (83.0-100.0); Mean Platelet Volume 10.8 fL (9.4-12.4); Monocytes # 0.3 K/mcL (0.0-1.3); Monocytes % 5.2 %; Neutrophils # 3.9 K/mcL (1.6-8.9); Platelet Count 114 K/mcL (140-400); Red Blood Count 4.44 M/mcL (4.19-5.50); Red Cell Distribution Width 19.7 % (11.5-14.5); Segmented Neutrophils % 77.9 %
[2017-02-04 05:22] LABS: BUN/Creatinine Ratio 16 (6-26); Blood Urea Nitrogen 16 mg/dL (8-26); Calcium 9.1 mg/dL (8.6-10.8); Carbon Dioxide 20 mEq/L (19-29); Chloride 109 mEq/L (98-109); Glucose 133 mg/dL (70-99); Osmolality,Calculated 289 (280-300); Potassium 3.9 mEq/L (3.5-4.5); Sodium 138 mEq/L (136-145); eGFR For African Americans > 60 (> 60); eGFR For Non-African Americans > 60 (> 60)
[2017-02-04] MEDS: *HR* Enoxaparin 40 MG/0.4 ML SYRINGE SQ SCH (05:29)
[2017-02-04] MEDS: Pantoprazole 40 MG VIAL IVP SCH ×2 (05:29→16:43)
[2017-02-04] MEDS: *HR* OxyCODONE Immed Rel 5 MG TABLET PO PRN ×3 (05:36→21:43)
[2017-02-04] MEDS: SUMAtriptan 6 MG/0.5 ML SQ PRN (08:23)
[2017-02-04] MEDS: Gabapentin 300 MG CAPSULE PO SCH ×3 (08:31→21:02)
[2017-02-04] MEDS: Multivit/Ca/Min/Fe/FA 1 TAB TABLET PO SCH (08:31)
[2017-02-04] MEDS: Thiamine (B-1) 100 MG TABLET PO SCH (08:32)
[2017-02-04] MEDS: traZODone 50 MG TABLET PO SCH ×3 (08:32→21:02)
[2017-02-04] MEDS: amLODIPine 5 MG TABLET PO SCH (08:32)
[2017-02-04] MEDS: Magnesium Oxide 400 MG TABLET PO SCH ×2 (08:33→21:01)
[2017-02-04] MEDS: Nicotine 21 MG PATCH.TD24 TD SCH (08:33)
[2017-02-04] MEDS: predniSONE 20 MG TABLET PO SCH (08:33)
[2017-02-04] MEDS: Budesonide/Formoterol 160/4.5 MDI IH SCH ×2 (10:46→23:03)
--- NOTE | 2017-02-04 12:00 | Gastroenterology Consult Note ---
<Hipolito Mays - Last Filed: 02/04/17 11:58> Date of Encounter: 02/04/17 Time of Encounter: 10:50 - Assessment and plan (1) Abdominal pain Current Visit: No Status: Chronic Assessment and plan: Concern for ulcer. Plan for EGD tomorrow to r/o esophagitis, gastritis, duodenitis, PUD, MW tear, or AVM. Keep NPO at midnight. Ok to eat today. Continue PPI. Qualifiers: Abdominal location: epigastric Qualified Code(s): R10.13 - Epigastric pain (2) Anemia Current Visit: No Status: Chronic Assessment and plan: Continue to monitor CBC and transfuse PRBC as needed. Check iron profile and ferritin. Qualifiers: Anemia type: unspecified type Qualified Code(s): D64.9 - Anemia, unspecified (3) History of alcohol abuse Current Visit: No Status: Chronic Assessment and plan: Drinking a fifth of vodka daily. Concern for cirrhosis. Complete liver work up and liver US. Abstain from all forms of alcohol. (4) Pancreatic insufficiency Current Visit: Yes Status: Chronic Assessment and plan: Continue Creon. (5) COPD (chronic obstructive pulmonary disease) Current Visit: Yes Status: Acute Assessment and plan: Management per primary team. Qualifiers: COPD type: COPD with acute exacerbation Qualified Code(s): J44.1 - Chronic obstructive pulmonary disease with (acute) exacerbation - Time Spent With Patient Total time spent is greater than 50% in coordination of care (as documented) at patient's floor/unit and/or counseling patient: GI History of Present Illness - Data of Consult Patient: new to practice Consult date: 02/04/17 Requesting Physician: Ne Colón - Consult Narrative Reason for consult: Epigastric pain, ETOH abuse History of present illness: Mr. Chen is a 61 year old male with PMHx of pancreatic insufficiency, anemia of chronic disease, HTN, HLD, alcoholism, portal HTN with varices, GERD, COPD, CAD who presented with chest pain. Troponins negative. He denies any active recreational drug use. However he is a long standing chronic alcoholic and presents with evidence of acute alcohol withdrawal and delirium tremens. He reports drinking up to 2 L of vodka daily. He reports severe epigastric abdominal pain that is worsened with palpation and radiates straight through to his back. He has extensive surgical history on his abdomen including appendectomy, cholecystectomy, partial pancreatectomy and several surgeries for partial bowel resection. He also formerly had a PEG tube. He also had a temporary ileostomy which was reversed. Procedures: Colonoscopy 07/31/2013 Dr. Cedeno: Hyperplastic polyp EGD 07/31/2013 Dr. Cedeno: Pathology negative for Rodriguez's, gastritis NSAIDs: None Anticoagulation: None Past Med Surg Social Fam HX - Past Medical History Medical history: arthritis, cirrhosis, COPD, coronary artery disease, CVA, GERD , hepatitis, hyperlipidemia, hypertension, liver disease, migraine, myocardial infarction, osteoporosis (Vitamin D deficiency.), syncope, TIA, other ( Pancreatic insufficiency. Chronic musculoskeletal pain syndrome. Chronic alcoholism.) Psychiatric history: anxiety, bipolar, depression, schizophrenia, previous psychiatric hospitalization, other - Past Surgical History Surgical History: appendectomy, cholecystectomy, other (Partial Pancreatectomy, surgeries for partial bowel resection, PEG insertion, temporary ileostomy and reversal.) - Social History Smoking Status: Current every day smoker Smokeless Tobacco Status: No Alcohol use: heavy, recent Drug use: none, unknown - Family History Mother Family Member Ethnicity: Non- Living Status: Still Living Hx Family Cardiac Disorders: Yes (htn) Hx Family Respiratory Disorders: No Hx Family Cancer: Yes (Colon) Hx Family GI Disorders: No Hx Family Endocrine Disorder: No Hx Family Neuromuscular Disorders: Yes (Neuropathy) Hx Family Neurologic Disorders: No Hx Family HEENT Disorders: No Hx Family Autoimmune Disorders: No Father Living Status: - Gastrointestinal Gastrointestinal: Present: as per HPI - Constitutional Constitutional: as per HPI - EENT Eyes: as per HPI Ears: Present: as per HPI Nose, mouth and throat: Present: as per HPI - Cardiovascular Cardiovascular ROS: Present: as per HPI - Respiratory Respiratory IM: Present: as per HPI - Genitourinary Genitourinary: Absent: change in color, Urinary frequency - Neurological ROS Neurological GI: Present: as per HPI - Hematologic/Lymphatic Hematologic/Lymphatic pediatric: Present: as per HPI - Musculoskeletal Musculoskeletal ROS GI: Present: as per HPI - Integumentary Integumentary GI: Present: as per HPI - Psychiatric ROS Psychiatric GI: Present: as per HPI - Endocrine Endocrine IM: Present: as per HPI - Constitutional Vitals: Temp Pulse Resp BP Pulse Ox 97.4 F L 76 16 147/91 98 02/04/17 11:08 02/04/17 11:08 02/04/17 11:08 02/04/17 11:08 02/04/17 11:08 General appearance: Present: cooperative, A&O X 3, no acute distress, answers questions appropriately - Head Head exam: Present: atraumatic, normocephalic - Eye Eye exam: Present: normal appearance, sclera anicteric - ENT ENT exam: Present: mucous membranes dry - Neck Neck exam general surgery: Present: normal inspection, trachea midline - Respiratory Respiratory exam: Present: CTAB. Absent: rales, rhonchi, wheezes - Cardiovascular Cardiovascular exam: Present: RRR, +S1, +S2 - GI/Abdominal GI/Abdominal exam: Present: distended, normal bowel sounds, soft, tenderness ( midepigstric), no peritoneal signs. Absent: firm, guarding Additional comments: Midline surgical scar, LUQ and RUQ surgical scars - Rectal Rectal exam: Present: deferred - Extremities Exam Extremities exam: Present: warm - Neurological Exam Neurological exam: Present: no focal deficits - Psychiatric Psychiatric exam: Present: normal affect, normal mood - Skin Skin exam: Present: dry, intact, normal color, warm Results - Labs CBC & Chem 7: 02/04/17 04:31 02/04/17 04:31 Labs: Last Result Calcium 9.1 mg/dL (8.6-10.8) 02/04/17 04:31 Troponin I 0.01 ng/mL (0-0.03) 02/02/17 09:28 C-Reactive Protein 1 mg/L (Less than 5) 02/02/17 02:38 Triglycerides 89 mg/dL (< 150) 02/01/17 20:30 Urine Opiates Screen Negative ng/mL ([id number]=412) 02/01/17 19:00 Entire Visit Hgb 11.6 g/dL (12.9-16.9) L 02/04/17 04:31 Hct 37.4 % (37.5-50.1) L 02/04/17 04:31 PT 11.2 Seconds (9.4-12.1) 02/01/17 19:13 Total Bilirubin 0.6 mg/dL (0.2-1.2) 02/03/17 13:25 AST 84 Units/L (5-34) H 02/03/17 13:25 ALT 75 Units/L (0-55) H 02/03/17 13:25 Amylase 35 Units/L (25-125) 02/01/17 20:30 Lipase 24 Units/L (8-78) 02/03/17 13:25 - ABG ABG results: PT/INR, D-dimer PT 11.2 Seconds (9.4-12.1) 02/01/17 19:13 Consult Discharge Plan - Plan Referrals: Emmanuel Gonzalez DO [Resident] - 02/24/17 2:00 pm <Elena Joshi - Last Filed: 02/04/17 18:06> Date of Encounter: 02/04/17 Time of Encounter: 14:00 - Time Spent With Patient Total time spent is greater than 50% in coordination of care (as documented) at patient's floor/unit and/or counseling patient: GI History of Present Illness - Data of Consult Requesting Physician: Ne Colón - Consult Narrative History of present illness: Mr. Chen is a 61 year old male - Constitutional Vitals: Temp Pulse Resp BP Pulse Ox 97.8 F 77 16 118/75 98 02/04/17 14:45 02/04/17 14:45 02/04/17 15:51 02/04/17 14:45 02/04/17 15:51 Results - Labs CBC & Chem 7: 02/04/17 04:31 02/04/17 04:31 Labs: Last Result Calcium 9.1 mg/dL (8.6-10.8) 02/04/17 04:31 Iron 68 mcg/dL (65-175) 02/04/17 12:19 % Saturation 14 % (20-55) L 02/04/17 12:19 Transferrin 344 mg/dL (174-364) 02/04/17 12:19 Ferritin 58 ng/ml (22-275) 02/04/17 12:19 Troponin I 0.01 ng/mL (0-0.03) 02/02/17 09:28 C-Reactive Protein 1 mg/L (Less than 5) 02/02/17 02:38 Triglycerides 89 mg/dL (< 150) 02/01/17 20:30 Urine Opiates Screen Negative ng/mL (Rsrofv=586) 02/01/17 19:00 Entire Visit Hgb 11.6 g/dL (12.9-16.9) L 02/04/17 04:31 Hct 37.4 % (37.5-50.1) L 02/04/17 04:31 PT 11.2 Seconds (9.4-12.1) 02/01/17 19:13 Ferritin 58 ng/ml (22-275) 02/04/17 12:19 Total Bilirubin 0.6 mg/dL (0.2-1.2) 02/03/17 13:25 AST 84 Units/L (5-34) H 02/03/17 13:25 ALT 75 Units/L (0-55) H 02/03/17 13:25 Amylase 35 Units/L (25-125) 02/01/17 20:30 Lipase 24 Units/L (8-78) 02/03/17 13:25 - ABG ABG results: PT/INR, D-dimer PT 11.2 Seconds (9.4-12.1) 02/01/17 19:13 - Attending Attestation I examined this patient and my medical decision-making was reviewed with the [employer]/PA/Advanced Practice Nurse/Resident Physician. I agree with the documented findings, disposition and treatment plan as described except to the extent set forth below.
[2017-02-04 12:44] LABS: Valproate Free <7 ug/mL (7-23)
[2017-02-04 13:41] LABS: % Iron Saturation 14 % (20-55); Iron 68 mcg/dL (65-175); Transferrin 344 mg/dL (174-364)
--- NOTE | 2017-02-04 15:04 | Internal Med Progress Note ---
Date of Encounter: 02/04/17 Time of Encounter: 13:30 - Assessment and plan (1) Medication care plan discussed with patient Current Visit: Yes Status: Acute Assessment and plan: Patient is requesting increased doses on his Seroquel, trazodone, and gabapentin. I have requested an official list of the patient's medications from the [place]. I do not see gabapentin on his [place] report. He states that his dosages of Seroquel and trazodone are far below what he was taking. He states he has not taken any medicine for approximately 3 weeks. I suspect this time without medications may be longer than the patient is admitting. We will adjust medications after receiving official report from the [place]. He is currently on 300 mg of Seroquel at bedtime and he is requesting to have 400 mg 3 times a day. Guarding is trazodone, he is currently on 50 mg 3 times a day and he is requesting 100 mg 3 times a day. He is also requesting to reach maximum gabapentin dosage of 3600 mg per day; he is currently on 600 mg 3 times a day. I will increase his Librium for maximum dosage of 300 per day but will not adjust his other medications until medication list from the [place] is obtained. (2) Abdominal pain Current Visit: No Status: Chronic Assessment and plan: Patient with severe epigastric abdominal pain. He has extensive surgical history on his abdomen including appendectomy, cholecystectomy, partial pancreatectomy and several surgeries for partial bowel resection. He also formerly had a PEG tube. He also had a temporary ileostomy which was reversed. He currently complains of severe epigastric abdominal pain that is worsened with palpation and radiates straight through to his back. LFTs are unremarkable. GI brought on board and have ordered a liver ultrasound and plan on an EGD tomorrow. Patient is a chronic alcoholic and states that he drinks at least a fifth of vodka per day and drinks chocolate milk and that is pretty much his entire intake. Strong suspicion for an ulcer. (3) Encephalopathy Current Visit: No Status: Resolved Assessment and plan: Patient alert and oriented 3. (4) Chest pain Current Visit: No Status: Resolved Assessment and plan: Patient denies chest pain at this time but rather focuses on epigastric abdominal pain. ACS has been ruled out. Chest x-ray negative. Troponins negative 4. Echocardiogram with ejection fraction of 60% and mild diastolic dysfunction. Patient euvolemic on examination. ITS Impressions Chest X-Ray 02/01/17 18:44 IMPRESSION: No acute cardiopulmonary disease. D/ / 02/01/2017 19:55:06 Zachariah Macedo MD / jaimie Interpreting Provider: Zachariah Macedo MD Echocardiogram impressions: LVEF 60%. Normal LV chamber size and function. Mild concentric left ventricular hypertrophy. Mild left ventricular diastolic dysfunction. Normal right ventricular structure and function. Mild aortic regurgitation. No evidence of pulmonary hypertension. Qualifiers: Chest pain type: unspecified Qualified Code(s): R07.9 - Chest pain, unspecified (5) Alcohol withdrawal Current Visit: Yes Status: Acute Assessment and plan: Patient stating he last drank on Thursday- now outside the window for DTs provided he has not drank since thursday. Patient continues with very mild withdrawal symptoms- Librium has helped but he continues with mild tremors. Ativan as needed for breakthrough withdrawal symptoms per protocol. He states he is interested in stopping drinking. He states that he plans to go home with his friend Devi Cast and he plans to stay there for couple weeks that he can attend AA meetings stating that he does not drive but he states his friend Devi lives close enough to meeting sites where he could walk. Qualifiers: Complication of substance-induced condition: with unspecified complication Qualified Code(s): F10.239 - Alcohol dependence with withdrawal, unspecified (6) Microcytic anemia Current Visit: No Status: Chronic Assessment and plan: Chronic, currently at the high end of his normal. We will continue to trend. (7) Psychiatric disorder Current Visit: No Status: Chronic Assessment and plan: Chronic. Bipolar disorder. Mood and affect more stable today. His symptoms are currently consistent with manic behavrior. He states that he cannot shut his brain down and states he cannot sleep. He states that he has been self- medicating with alcohol for many years. He is requesting that his most recent doses of his Trazodone, Gabapentin and Seroquel be continued. He states he has been without these medications for a "few weeks." Gabapentin does not show up on his [place] report for the last year. He had a prescription for Lyrica but most recent was March of 2016. He freely admits that he is not good about getting to his PCP appointments citing lack of transportation. His affect is slightly improved today and he was again reminded not to be callus and disrespectful of staff. Recommend outpatient psychiatric followup. (8) History of alcohol abuse Current Visit: No Status: Chronic (9) History of substance abuse Current Visit: Yes Status: Chronic Assessment and plan: Tox screen negative (10) Schizophrenia Current Visit: No Status: Chronic Qualifiers: Schizophrenia type: unspecified Qualified Code(s): F20.9 - Schizophrenia, unspecified (11) Bipolar disorder, unspecified Current Visit: No Status: Chronic Qualifiers: Active/Remission status: currently active Current bipolar episode type: mixed Current episode severity: unspecified Qualified Code(s): F31.60 - Bipolar disorder, current episode mixed, unspecified (12) Chronic back pain Current Visit: No Status: Chronic Assessment and plan: Checked his [place] report which is negative for any controlled substances since September 2016. Qualifiers: Back pain location: back pain in unspecified location Back pain laterality : unspecified Qualified Code(s): M54.9 - Dorsalgia, unspecified; G89.29 - Other chronic pain (13) DVT prophylaxis Current Visit: No Status: Acute Assessment and plan: Subcutaneous Lovenox (14) Protein malnutrition Current Visit: No Status: Chronic Assessment and plan: We will add ensure 3 times a day with meals. He is eating 100% of his meals and asking for snakcs regularly. Strongly suspect malnutrition 2/2 poor PO intake secondary to alcoholism. (15) Pancreatic insufficiency Current Visit: No Status: Chronic (16) Tobacco abuse Current Visit: Yes Status: Chronic Assessment and plan: Continues to smoke 1 pack per day. Nicotine patch. Declines counseling. (17) Paresthesias Current Visit: No Status: Chronic Assessment and plan: According to his [facility] report, patient has not received prescription for Lyrica since March 2016. This medication he states is very helpful to him but he states that he will not take it if he is drinking because he states alcohol helps his paresthesias just as well as Lyrica does. Gabapentin helping- will continue (18) Withdrawal symptoms, alcohol Current Visit: No Status: Acute Qualifiers: Complication of substance-induced condition: uncomplicated Qualified Code(s ): F10.230 - Alcohol dependence with withdrawal, uncomplicated (19) Hypertension Current Visit: No Status: Chronic Assessment and plan: Controlled. We will continue to trend and adjust medications as indicated. Qualifiers: Hypertension type: other secondary hypertension Qualified Code(s): I15.8 - Other secondary hypertension (20) COPD (chronic obstructive pulmonary disease) Current Visit: Yes Status: Acute Assessment and plan: Patient endorses shortness of breath above his norm. He does appear to be in a mild acute exacerbation. Decreased breath sounds throughout with diffuse expiratory wheezing present with fair aeration. Mild respiratory distress, will schedule his DuoNeb's and add by mouth prednisone Qualifiers: COPD type: COPD with acute exacerbation Qualified Code(s): J44.1 - Chronic obstructive pulmonary disease with (acute) exacerbation (21) Alcohol dependence Current Visit: No Status: Chronic (22) Toxic metabolic encephalopathy Current Visit: Yes Status: Resolved (23) Chronic headaches Current Visit: Yes Status: Chronic Assessment and plan: We will continue his home Imitrex. He currently denies headache. Qualifiers: Headache type: unspecified Intractability: not intractable Qualified Code (s): R51 - Headache - Time Spent With Patient Greater than 35 minutes (pt with multiple complaints and requests; also obtaining outside records) - Subjective Interval history: Patient seen and examined. On examination, patient ambulating around his room stating he is too shaky to get comfortable or to sit down. He is requesting increases in his trazodone, gabapentin, and seroquel. He is upset that he is NPO for his liver U/S. - Constitutional Vitals: Temp Pulse Resp BP Pulse Ox 97.8 F 77 16 118/75 98 02/04/17 14:45 02/04/17 14:45 02/04/17 14:45 02/04/17 14:45 02/04/17 14:45 General appearance: Present: cooperative, disheveled, A&O X 3, no acute distress , obese, answers questions appropriately - Head Head exam: Present: atraumatic, normocephalic - Eye Eye exam: Present: PERRL, conjuntiva pink, sclera anicteric Pupils: Present: PERRL - Neck Neck exam general surgery: Present: supple, trachea midline. Absent: lymphadenopathy - Respiratory Respiratory exam: Present: decreased breath sounds. Absent: accessory muscle use, rales, respiratory distress, rhonchi, wheezes - Cardiovascular Cardiovascular exam: Present: RRR, +S1, +S2. Absent: diastolic murmur, gallop, rubs, systolic murmur - GI/Abdominal GI/Abdominal exam: Present: normal bowel sounds, soft, no peritoneal signs. Absent: distended, tenderness - Extremities Exam Extremities exam: Present: warm, radial pulses palpable and symetrical. Absent : calf tenderness, cyanotic, pedal edema - Neurological Exam Neurological exam: Present: alert, CN II-XII intact, normal gait, oriented X3, no focal deficits, strengths equal and symetr throughout. Absent: pronater drift, facial droop, speech deficit - Expanded Neurological Exam Neurological exam expanded: Present: tremor (mild) - Skin Skin exam: Present: dry, intact, pallor, warm Internal Medicine: Result - Labs CBC & Chem 7: 02/04/17 04:31 02/04/17 04:31 Labs: Short CBC 02/04/17 Range/Units 04:31 WBC 5.0 (4.3-11.1) K/mcL Hgb 11.6 L (12.9-16.9) g/dL Hct 37.4 L (37.5-50.1) % Plt Count 114 L (140-400) K/mcL Neutrophils # 3.9 (1.6-8.9) K/mcL BMP 02/04/17 04:31 Sodium 138 Potassium 3.9 Chloride 109 Carbon Dioxide 20 BUN 16 Creatinine 1.02 Glucose 133 H Calcium 9.1 - ABG Interpretation ABG results: PT/INR, D-dimer PT 11.2 Seconds (9.4-12.1) 02/01/17 19:13 - VTE Documentation of Mechanical Device: Graduated compression elastic hosiery Consult Discharge Plan - Plan Referrals: Emmanuel Gonzalez DO [Resident] - 02/24/17 2:00 pm
[2017-02-04 15:10] LABS: Hepatitis A Antibody IgM Nonreactive (Nonreactive); Hepatitis B Core IgM Nonreactive (Nonreactive); Hepatitis B Surface Antigen Nonreactive (Nonreactive)
[2017-02-04 15:13] LABS: Hepatitis C Virus Antibody Reactive (Nonreactive)
[2017-02-04] MEDS: Divalproex (24 HR) 250 MG TABLET PO SCH (20:59)
[2017-02-04] MEDS: Melatonin 3 MG TABLET PO SCH (21:01)
[2017-02-04] MEDS: Mirtazapine 15 MG TABLET PO SCH (21:02)
[2017-02-05] MEDS: Ipratropium/Albuterol Neb 3 ML IH SCH ×4 (03:54→21:07)
[2017-02-05] MEDS: *HR* Enoxaparin 40 MG/0.4 ML SYRINGE SQ SCH (05:36)
[2017-02-05] MEDS ORDERED: Water for inj. (sterile) 10 ML IV ONE ×3 (06:28→10:41)
[2017-02-05] MEDS: *HR* LORazepam 2 MG/ML VIAL IVP PRN ×3 (06:30→21:44)
[2017-02-05] MEDS: Pantoprazole 40 MG VIAL IVP SCH ×2 (06:40→19:04)
[2017-02-05 07:18] LABS: Valproate Total <7 ug/mL (50-125)
[2017-02-05] MEDS: Nicotine 21 MG PATCH.TD24 TD SCH (08:21)
[2017-02-05] MEDS ORDERED: *HR* LORazepam 2 MG/ML VIAL IVP STA (10:04)
[2017-02-05] MEDS ORDERED: *HR* Promethazine 25 MG/ML VIAL IVP ONE ×2 (10:05→17:29)
[2017-02-05] MEDS ORDERED: *HR* Metoprolol 5 MG/5 ML VIAL IVP PRN (10:07)
[2017-02-05] MEDS: Thiamine (B-1) 100 MG TABLET PO SCH (10:38)
[2017-02-05] MEDS: amLODIPine 5 MG TABLET PO SCH (10:38)
[2017-02-05] MEDS: Multivit/Ca/Min/Fe/FA 1 TAB TABLET PO SCH (10:38)
[2017-02-05] MEDS: Magnesium Oxide 400 MG TABLET PO SCH ×2 (10:38→23:32)
[2017-02-05] MEDS: traZODone 50 MG TABLET PO SCH ×3 (10:38→23:32)
[2017-02-05] MEDS: predniSONE 20 MG TABLET PO SCH (10:38)
[2017-02-05] MEDS: Gabapentin 300 MG CAPSULE PO SCH ×3 (10:38→23:33)
[2017-02-05] MEDS: Budesonide/Formoterol 160/4.5 MDI IH SCH ×2 (11:01→21:07)
[2017-02-05] MEDS: *HR* Morphine 2 MG/ML SYRINGE IVP PRN ×3 (14:44→23:30)
[2017-02-05 15:19] LABS: AFP Tumor Marker Non-Pregnant 3 ng/mL (0-9)
[2017-02-05] MEDS ORDERED: 0.9 % Sodium Chloride 1,000 ML IVC SCH (15:30)
[2017-02-05] MEDS ORDERED: Simethicone 40 MG/0.6 ML MLS IR ONE (17:27)
[2017-02-05] MEDS ORDERED: Tetracaine/Benzocaine/Butamben 200MG/SPRAY (100SPY/BOT) MM ONE (17:27)
[2017-02-05] MEDS ORDERED: *HR* Midazolam HCl 5 MG/5 ML VIAL IVP ONE (17:35)
[2017-02-05] MEDS ORDERED: *HR* FentaNYL (PF) 100 MCG/2 ML VIAL ONE (17:36)
[2017-02-05] MEDS ORDERED: *HR* Promethazine 25 MG/ML VIAL ONE (17:36)
--- NOTE | 2017-02-05 17:55 | Internal Med Progress Note ---
Date of Encounter: 02/05/17 Time of Encounter: 08:30 (1230, and 1430) - Assessment and plan (1) Encephalopathy Current Visit: No Status: Acute Assessment and plan: Patient appeared a bit encephalopathic this morning. Unclear etiology given that if the patient is being truthful, this is now day 6 since he has last had alcohol. He did not require any Ativan yesterday and his symptoms were very well controlled yesterday so acute onset of severe withdrawal from alcohol on day 6 would be highly unlikely. Unclear if the patient has been drinking since admission, no alcohol found in his room. No signs of acute infection. Patient remained oriented 3 throughout this episode but would at times saying inappropriate things. Symptoms were treated with Ativan and Phenergan and his vomiting subsided and his mentation improved. We will continue to monitor his mentation. Vital signs are stable. Patient remains alert and oriented 3. (2) Medication care plan discussed with patient Current Visit: Yes Status: Acute Assessment and plan: [facility] and he is on the appropriate dosages for these medications. 02/04/17 Patient is requesting increased doses on his Seroquel, trazodone, and gabapentin. I have requested an official list of the [facility] the [facility]. I do not see gabapentin on his OAR[facility] report. He states that his dosages of Seroquel and trazodone are far below what he was taking. He states he has not taken any medicine for approximately 3 weeks. I suspect this time without medications may be longer than the patient is admitting. We will adjust medications after receiving official report [facility] the [facility]. He is currently on 300 mg of Seroquel at bedtime and he is requesting to have 400 mg 3 times a day. Guarding is trazodone, he is currently on 50 mg 3 times a day and he is requesting 100 mg 3 times a day. He is also requesting to reach maximum gabapentin dosage of 3600 mg per day; he is currently on 600 mg 3 times a day. I will increase his Librium for maximum dosage of 300 per day but will not adjust his other medications until medication list [facility] the [facility] is obtained. (3) Abdominal pain Current Visit: No Status: Chronic Assessment and plan: Patient with severe epigastric abdominal pain. He has extensive surgical history on his abdomen including appendectomy, cholecystectomy, partial pancreatectomy and several surgeries for partial bowel resection. He also formerly had a PEG tube. He also had a temporary ileostomy which was reversed. He continues to complain of severe epigastric abdominal pain that is worsened with palpation and radiates straight through to his back. LFTs are unremarkable. GI brought on board and have ordered a liver ultrasound which was unremarkable and plan for an EGD later today. Patient is a chronic alcoholic and states that he drinks at least a fifth of vodka per day and drinks chocolate milk and that is pretty much his entire intake. Strong suspicion for an ulcer. (4) Chest pain Current Visit: No Status: Resolved Assessment and plan: Patient denies chest pain at this time but rather focuses on epigastric abdominal pain. ACS has been ruled out. Chest x-ray negative. Troponins negative 4. Echocardiogram with ejection fraction of 60% and mild diastolic dysfunction. Patient euvolemic on examination. ITS Impressions Chest X-Ray 02/01/17 18:44 IMPRESSION: No acute cardiopulmonary disease. D/ / 02/01/2017 19:55:06 Zachariah Macedo MD / [email or web address] Interpreting Provider: Zachariah Macedo MD Echocardiogram impressions: LVEF 60%. Normal LV chamber size and function. Mild concentric left ventricular hypertrophy. Mild left ventricular diastolic dysfunction. Normal right ventricular structure and function. Mild aortic regurgitation. No evidence of pulmonary hypertension. Qualifiers: Chest pain type: unspecified Qualified Code(s): R07.9 - Chest pain, unspecified (5) Alcohol withdrawal Current Visit: Yes Status: Acute Assessment and plan: Unclear causation of the patient's episode this morning at which time he became diaphoretic, pale, and vomited several times. Symptoms subsided with Ativan and Phenergan. We will continue to monitor 02/04/17 Patient stating he last drank on Thursday- now outside the window for DTs provided he has not drank since thursday. Patient continues with very mild withdrawal symptoms- Librium has helped but he continues with mild tremors. Ativan as needed for breakthrough withdrawal symptoms per protocol. He states he is interested in stopping drinking. He states that he plans to go home with his friend Devi Cast and he plans to stay there for couple weeks that he can attend AA meetings stating that he does not drive but he states his friend Devi lives close enough to meeting sites where he could walk. Qualifiers: Complication of substance-induced condition: with unspecified complication Qualified Code(s): F10.239 - Alcohol dependence with withdrawal, unspecified (6) Microcytic anemia Current Visit: No Status: Chronic Assessment and plan: Chronic, currently at the high end of his normal. We will continue to trend. (7) Psychiatric disorder Current Visit: No Status: Chronic Assessment and plan: Chronic. Bipolar disorder. Mood and affect more stable today. His symptoms are currently consistent with manic behavior. He states that he cannot shut his brain down and states he cannot sleep. He states that he has been self- medicating with alcohol for many years. He is requesting that his most recent doses of his Trazodone, Gabapentin and Seroquel be continued- he is on all of these medications and dos[facility]. Recommend outpatient psychiatric followup. (8) History of alcohol abuse Current Visit: No Status: Chronic (9) History of substance abuse Current Visit: Yes Status: Chronic Assessment and plan: Tox screen negative (10) Schizophrenia Current Visit: No Status: Chronic Qualifiers: Schizophrenia type: unspecified Qualified Code(s): F20.9 - Schizophrenia, unspecified (11) Bipolar disorder, unspecified Current Visit: No Status: Chronic Qualifiers: Active/Remission status: currently active Current bipolar episode type: mixed Current episode severity: unspecified Qualified Code(s): F31.60 - Bipolar disorder, current episode mixed, unspecified (12) Chronic back pain Current Visit: No Status: Chronic Assessment and plan: Checked his [place] report which is negative for any controlled substances since September 2016. Qualifiers: Back pain location: back pain in unspecified location Back pain laterality : unspecified Qualified Code(s): M54.9 - Dorsalgia, unspecified; G89.29 - Other chronic pain (13) DVT prophylaxis Current Visit: No Status: Acute Assessment and plan: Subcutaneous Lovenox (14) Protein malnutrition Current Visit: No Status: Chronic Assessment and plan: We will add ensure 3 times a day with meals. He is eating 100% of his meals and asking for snakcs regularly. Strongly suspect malnutrition 2/2 poor PO intake secondary to alcoholism. (15) Pancreatic insufficiency Current Visit: No Status: Chronic (16) Tobacco abuse Current Visit: Yes Status: Chronic Assessment and plan: Continues to smoke 1 pack per day. Nicotine patch. Declines counseling. (17) Paresthesias Current Visit: No Status: Chronic Assessment and plan: According to his OARRS report, patient has not received prescription for Lyrica since March 2016. This medication he states is very helpful to him but he states that he will not take it if he is drinking because he states alcohol helps his paresthesias just as well as Lyrica does. Gabapentin helping- will continue (18) Withdrawal symptoms, alcohol Current Visit: No Status: Acute Qualifiers: Complication of substance-induced condition: uncomplicated Qualified Code(s ): F10.230 - Alcohol dependence with withdrawal, uncomplicated (19) Hypertension Current Visit: No Status: Chronic Assessment and plan: Controlled. We will continue to trend and adjust medications as indicated. Qualifiers: Hypertension type: other secondary hypertension Qualified Code(s): I15.8 - Other secondary hypertension (20) COPD (chronic obstructive pulmonary disease) Current Visit: Yes Status: Acute Assessment and plan: Patient endorses shortness of breath above his norm. He does appear to be in a mild acute exacerbation. Decreased breath sounds throughout with diffuse expiratory wheezing present with fair aeration. No respiratory distress on examination. Continue DuoNeb's and by mouth prednisone Qualifiers: COPD type: COPD with acute exacerbation Qualified Code(s): J44.1 - Chronic obstructive pulmonary disease with (acute) exacerbation (21) Alcohol dependence Current Visit: No Status: Chronic (22) Toxic metabolic encephalopathy Current Visit: Yes Status: Resolved (23) Chronic headaches Current Visit: Yes Status: Chronic Assessment and plan: We will continue his home Imitrex though he has been refusing Imitrex today. He has demanded several times that he be given morphine for his headache which he fully knows is not indicated. He states he has had headaches since he was 7 years old. Morphine not indicated. Continue to offer Imitrex. May consider migraine cocktail, we will continue to monitor Qualifiers: Headache type: unspecified Intractability: not intractable Qualified Code (s): R51 - Headache - Subjective Interval history: Patient seen and examined earlier this morning. Nursing reports that the patient had become diaphoretic and more confused. On examination early this morning, patient was diaphoretic and pale and was actively vomiting. He was alert and oriented 3 but would say inappropriate things at times that were unable to be understood. He was tachycardic with a low-grade fever. He was then seen and reexamined shortly thereafter and was asleep and awakened easily to voice. He has been seen and reexamined several times throughout the day and complains of a severe headache and is continually requesting more morphine and more Ativan. He has remained oriented 3. - Constitutional Vitals: Temp Pulse Resp BP Pulse Ox 98.1 F 97 18 132/86 95 02/05/17 15:18 02/05/17 15:18 02/05/17 16:33 02/05/17 15:18 02/05/17 16:33 General appearance: Present: disheveled, A&O X 3, no acute distress, obese, answers questions appropriately. Absent: cooperative - Head Head exam: Present: atraumatic, normocephalic - Eye Eye exam: Present: PERRL, conjuntiva pink, sclera anicteric Pupils: Present: PERRL - Neck Neck exam general surgery: Present: supple, trachea midline. Absent: lymphadenopathy - Respiratory Respiratory exam: Present: decreased breath sounds, wheezes. Absent: accessory muscle use, rales, respiratory distress, rhonchi - Cardiovascular Cardiovascular exam: Present: RRR, +S1, +S2. Absent: diastolic murmur, gallop, rubs, systolic murmur - GI/Abdominal GI/Abdominal exam: Present: distended, normal bowel sounds, soft, no peritoneal signs. Absent: tenderness - Extremities Exam Extremities exam: Present: warm, radial pulses palpable and symetrical. Absent : calf tenderness, cyanotic, pedal edema - Neurological Exam Neurological exam: Present: alert, CN II-XII intact, oriented X3, no focal deficits, strengths equal and symetr throughout. Absent: pronater drift, facial droop, speech deficit - Skin Skin exam: Present: diaphoretic, intact, pallor, warm Internal Medicine: Result - Labs CBC & Chem 7: 02/04/17 04:31 02/04/17 04:31 - ABG Interpretation ABG results: PT/INR, D-dimer PT 11.2 Seconds (9.4-12.1) 02/01/17 19:13 - Impressions Impressions Liver Ultrasound 02/05/17 09:00 IMPRESSION: Fatty liver. Normal size and morphology of the liver. No sonographic signs of cirrhosis. D/ / 02/05/2017 14:18:42 Nidia Easton MD / [email or web address] Interpreting Provider: Nidia Easton MD - VTE Documentation of Mechanical Device: Graduated compression elastic hosiery Consult Discharge Plan - Plan Referrals: Emmanuel Gonzalez DO [Resident] - 02/24/17 2:00 pm
[2017-02-05] MEDS: *HR* Midazolam HCl 5 MG/5 ML VIAL IVP PRN ×2 (18:09→18:11)
[2017-02-05] MEDS: *HR* FentaNYL (PF) 100 MCG/2 ML VIAL IVP PRN ×2 (18:09→18:11)
[2017-02-05] MEDS ORDERED: *HR* Morphine 2 MG/ML SYRINGE IVP ONE (21:18)
[2017-02-05 22:13] LABS: Bilirubin,Urine Negative (Negative); Blood,Urine Negative (Negative); Clarity,Urine Clear (Clear); Color,Urine Yellow (Yellow); Glucose,Urine (UA) Normal (Normal); Ketones,Urine Negative (Negative); Leukocyte Esterase,Urine Negative (Negative); Nitrite,Urine Negative (Negative); PH,Urine 7.5 pH Units (5.0-8.0); Protein,Urine Negative (Neg-Trace); Specific Gravity,Urine 1.013 (1.010-1.025); Urobilinogen,Urine Normal (Normal)
[2017-02-05 22:15] LABS: Amphetamine Screen,Urine Negative ng/mL (Cutoff=1000); Barbiturate Screen,Urine Negative ng/mL (Cutoff=200); Benzodiazepines Screen,Urine Positive ng/mL (Cutoff=200); Cannabinoid Screen,Urine Negative ng/mL (Cutoff = 50); Cocaine Screen,Urine Negative ng/mL (Cutoff= 300); Opiate Screen,Urine Positive ng/mL (Cutoff=300); Phencyclidine Screen,Urine Negative ng/mL (Cutoff=25)
[2017-02-05] MEDS: Melatonin 3 MG TABLET PO SCH (23:32)
[2017-02-05] MEDS: Divalproex (24 HR) 250 MG TABLET PO SCH (23:32)
[2017-02-05] MEDS: Mirtazapine 15 MG TABLET PO SCH (23:33)
[2017-02-06] MEDS ORDERED: *HR* Metoprolol 5 MG/5 ML VIAL IVP ONE (02:01)
[2017-02-06] MEDS: *HR* Morphine 2 MG/ML SYRINGE IVP PRN ×4 (04:16→23:44)
[2017-02-06] MEDS: Ipratropium/Albuterol Neb 3 ML IH SCH ×4 (04:39→20:58)
[2017-02-06 05:29] LABS: Hemoglobin 11.7 g/dL (12.9-16.9)
[2017-02-06 05:31] LABS: Hematocrit 37.7 % (37.5-50.1); Immature Platelets 7.8 % (1.1-6.1); Mean Corpuscular Hemoglobin 26.8 pg (28.0-33.3); Mean Corpuscular Volume 86.3 fL (83.0-100.0); Mean Platelet Volume 12.1 fL (9.4-12.4); Red Blood Count 4.37 M/mcL (4.19-5.50); Red Cell Distribution Width 21.3 % (11.5-14.5)
[2017-02-06 05:41] LABS: BUN/Creatinine Ratio 16 (6-26); Blood Urea Nitrogen 21 mg/dL (8-26); Calcium 9.3 mg/dL (8.6-10.8); Carbon Dioxide 17 mEq/L (19-29); Chloride 108 mEq/L (98-109); Glucose 102 mg/dL (70-99); Osmolality,Calculated 289 (280-300); Potassium 3.3 mEq/L (3.5-4.5); Sodium 138 mEq/L (136-145); eGFR For African Americans > 60 (> 60); eGFR For Non-African Americans 57 (> 60)
[2017-02-06 05:50] LABS: Platelet Count 83 K/mcL (140-400)
[2017-02-06 05:53] LABS: Anisocytosis 2+ (Not Present); Lymphocytes # 1.8 K/mcL (0.6-4.6); Monocytes # 0.5 K/mcL (0.0-1.3); Platelet Estimate Decreased (Normal)
[2017-02-06] MEDS: Pantoprazole 40 MG VIAL IVP SCH (06:43)
[2017-02-06] MEDS: *HR* Enoxaparin 40 MG/0.4 ML SYRINGE SQ SCH (06:43)
[2017-02-06] MEDS ORDERED: 0.9 % Sodium Chloride 1,000 ML IVC ONE (07:24)
[2017-02-06 07:56] LABS: Alpha-1-Antitrypsin 94 mg/dL (90-200); Ceruloplasmin 22 mg/dL (17-54)
[2017-02-06 07:59] LABS: ABG Base Excess -5.1 mEq/L (-2.0 to 3.0); ABG HCO3 18.2 mEQ/L (21-27); ABG Oxygen Saturation 97 % (95-98); ABG PCO2 28 mmHg (35-45); ABG PH 7.42 pH Units (7.32-7.45); ABG PO2 93 mmHg (85-104); ABG TCO2 19.1 mEq/L (20-26)
[2017-02-06 08:00] LABS: Blood Gas FiO2 50 %
[2017-02-06] MEDS ORDERED: Vancomycin 1,500 MG in D5% in Water 250 ML IVPB SCH ×2 (08:00→21:00)
[2017-02-06] MEDS ORDERED: Piperacillin/Tazobactam 3.375 GM in D5% in Water (Mini-Bag+) 100 ML IVPB SCH (08:00)
[2017-02-06 08:04] LABS: Myeloperoxidase Ab 2 AU/mL (0-19); Serine Protease-3 Antibody 1 AU/mL (0-19)
[2017-02-06 08:05] LABS: ANA IgG by ELISA NONE DETECTED (None Detected); F-Actin (sm muscle) Ab IgG 19 Units (0-19)
[2017-02-06] MEDS ORDERED: Acetaminophen IV 1,000 MG/100 ML INFUS..BTL IVPB ONE (08:08)
--- NOTE | 2017-02-06 08:27 | Internal Med Progress Note ---
Date of Encounter: 02/06/17 Time of Encounter: 07:20 (x1 hour) - Assessment and plan (1) Encephalopathy Current Visit: No Status: Acute Assessment and plan: Starting at approximately 7 AM this morning, patient became acutely confused and short of breath according to nursing staff. I saw the patient at 7:15 and he was on a Ventimask at 15 L and was to. Good aeration throughout with decreased breath sounds noted to right anterior and right posterior lung krishna. Patient is diaphoretic and pale. Capillary refill 3 to all 4 extremities. He is able to answer all orientation questions, he is aware of where he is at, the year, the president. He complains of epigastric abdominal pain and shortness of breath. Stat portable chest x-ray and stat ABGs obtained. Portable chest consistent with suspected aspiration pneumonia. Of note, patient was caught by staff several times while he was allegedly nothing by mouth before his EGD, he was caught several times attempting to drink and drinking fluids. EGD revealed reflux esophagitis and a medium amount of food residue in his stomach. His stomach was biopsied. Recommendation daily PPI and Carafate 3 times a day 10 days. Examination this morning consistent with acute sepsis with suspected acute aspiration pneumonia. Patient was on room air until this episode. Other possibilities would include perforation given that his stomach was biopsied, stat CT of his abdomen and chest have been ordered. He had mild acute kidney injury overnight, no contrast was ordered. Another possibility would be alcohol withdrawal however the patient is being truthful, he has not drank in 7 days and he has been on Librium since admission. Examination not consistent with acute alcohol withdrawal. He was given a bolus of 1 L normal saline this morning as well. Nursing also reports that he was incontinent overnight which is new for this patient. Will put in a Boggs and check a UA. Spoke to Hallie Tinoco and Ariana and the patient will be transferred to the ICU. Bedside signout given to Dr Lane and the patient was transferred to ICU service. (2) Sepsis Current Visit: Yes Status: Acute Assessment and plan: See prior note for encephalopathy. Acute onset early this am around 0700. Possible causative factors: Aspiration pneumonia, perforated bowel, alcohol withdrawal, possible UTI. Patient incontinent overnight, placing a Boggs in checking a UA. We will place a central line and obtain blood cultures. ABGs drawn as well. Portable CXR consistent with possible aspiration pneumonia- EGD last night with moderate food residue in stomach. Started on Vanco and Zosyn this morning. Tachycardic and hypotensive. Febrile up to 103F. Mild leukocytosis. Mild acute kidney injury overnight. Lactic acid pending. Currently tolerating Venti mask at 15L however he is tachypneic with moderate respiratory distress and is displaying signs of pending respiratory failure- BiPap ordered. Patient is still alert and oriented and able to answer questions although his is ill/toxic appearing and listless. CT of chest and abdomen ordered. Low suspicion for PE- has been on DVT prophylaxis since admission. Signout to Dr Lane, transferring to ICU service. (3) Medication care plan discussed with patient Current Visit: Yes Status: Acute Assessment and plan: Patient requested increased doses on his Seroquel, trazodone, and gabapentin. I have reviewed the patient's records from the [place] and he is on his regular dosages for these medications. 02/04/17 I have requested an official list of the patient's medications from the [place]. I do not see gabapentin on his [facility] report. He states that his dosages of Seroquel and trazodone are far below what he was taking. He states he has not taken any medicine for approximately 3 weeks. I suspect this time without medications may be longer than the patient is admitting. We will adjust medications after [facility]. He is currently on 300 mg of Seroquel at bedtime and he is requesting to have 400 mg 3 times a day. Guarding is trazodone, he is currently on 50 mg 3 times a day and he is requesting 100 mg 3 times a day. He is also requesting to reach maximum gabapentin dosage of 3600 mg per day; he is currently on 600 mg 3 times a day. I will increase his Librium for maximum dosage of 300 per day but will not adjust his other medications until [facility] is obtained. (4) Abdominal pain Current Visit: No Status: Chronic Assessment and plan: Patient with severe epigastric abdominal pain. He has extensive surgical history on his abdomen including appendectomy, cholecystectomy, partial pancreatectomy and several surgeries for partial bowel resection. He also formerly had a PEG tube. He also had a temporary ileostomy which was reversed. He continues to complain of severe epigastric abdominal pain that is worsened with palpation and radiates straight through to his back. LFTs are unremarkable. GI brought on board and have ordered a liver ultrasound which was unremarkable and performed an EGD last night that revealed reflux esophagitis, medium amount of food residue in the stomach, and his stomach was biopsied. Patient is a chronic alcoholic and states that he drinks at least a fifth of vodka per day and drinks chocolate milk and that is pretty much his entire intake. This morning, patient is acutely septic and encephalopathic and complaining of severe abdominal pain, will obtain abdominal CT without contrast to rule out possible perforation secondary to biopsy. (5) Chest pain Current Visit: No Status: Resolved Assessment and plan: Patient continues to deny chest pain at this time but rather focuses on epigastric abdominal pain. ACS has been ruled out. Chest x-ray negative. Troponins negative 4. Echocardiogram with ejection fraction of 60% and mild diastolic dysfunction. Patient euvolemic on examination. ITS Impressions Chest X-Ray 02/01/17 18:44 IMPRESSION: No acute cardiopulmonary disease. D/ / 02/01/2017 19:55:06 Zachariah Macedo MD / jaimie Interpreting Provider: Zachariah Macedo MD Echocardiogram impressions: LVEF 60%. Normal LV chamber size and function. Mild concentric left ventricular hypertrophy. Mild left ventricular diastolic dysfunction. Normal right ventricular structure and function. Mild aortic regurgitation. No evidence of pulmonary hypertension. Qualifiers: Chest pain type: unspecified Qualified Code(s): R07.9 - Chest pain, unspecified (6) Alcohol withdrawal Current Visit: Yes Status: Acute Assessment and plan: Patient has been on Librium since admission. This is admission day 5 and he states that he has not drank in 7 days since last Thursday. 2 days ago, on his alleged fifth day sober, patient did not require any Ativan and was doing well. The next day, on his alleged sixth day sober, patient became acutely confused in the morning and required Ativan but remained stable throughout the rest of the day. 02/05/17 Unclear causation of the patient's episode this morning at which time he became diaphoretic, pale, and vomited several times. Symptoms subsided with Ativan and Phenergan. We will continue to monitor 02/04/17 Patient stating he last drank on Thursday- now outside the window for DTs provided he has not drank since thursday. Patient continues with very mild withdrawal symptoms- Librium has helped but he continues with mild tremors. Ativan as needed for breakthrough withdrawal symptoms per protocol. He states he is interested in stopping drinking. He states that he plans to go home with his friend Devi Cast and he plans to stay there for couple weeks that he can attend AA meetings stating that he does not drive but he states his friend Devi lives close enough to meeting sites where he could walk. Qualifiers: Complication of substance-induced condition: with unspecified complication Qualified Code(s): F10.239 - Alcohol dependence with withdrawal, unspecified (7) Microcytic anemia Current Visit: No Status: Chronic Assessment and plan: Chronic, currently at the high end of his normal. We will continue to trend. (8) Psychiatric disorder Current Visit: No Status: Chronic Assessment and plan: Chronic. Bipolar disorder. Mood and affect has been mostly stable during this admission. He does get abrasive and manipulative with staff at times but has been respecting firmly set boundaries. His symptoms have been consistent with manic behavior until this am. He states that he cannot shut his brain down and states he cannot sleep. He states that he has been self-medicating with alcohol for many years. He is requesting that his most recent doses of his Trazodone, Gabapentin and Seroquel be continued- he is on all of these medications and [facility]. Recommend outpatient psychiatric followup. He has denied suicidal ideation since admission. (9) History of alcohol abuse Current Visit: No Status: Chronic (10) History of substance abuse Current Visit: Yes Status: Chronic Assessment and plan: Tox screen negative (11) Schizophrenia Current Visit: No Status: Chronic Qualifiers: Schizophrenia type: unspecified Qualified Code(s): F20.9 - Schizophrenia, unspecified (12) Bipolar disorder, unspecified Current Visit: No Status: Chronic Qualifiers: Active/Remission status: currently active Current bipolar episode type: mixed Current episode severity: unspecified Qualified Code(s): F31.60 - Bipolar disorder, current episode mixed, unspecified (13) Chronic back pain Current Visit: No Status: Chronic Assessment and plan: Checked his [place] report which is negative for any controlled substances since September 2016. Qualifiers: Back pain location: back pain in unspecified location Back pain laterality : unspecified Qualified Code(s): M54.9 - Dorsalgia, unspecified; G89.29 - Other chronic pain (14) DVT prophylaxis Current Visit: No Status: Acute Assessment and plan: Subcutaneous Lovenox (15) Protein malnutrition Current Visit: No Status: Chronic Assessment and plan: Ensure 3 times a day with meals added to his regimen. He is eating 100% of his meals and asking for snacks regularly. Strongly suspect malnutrition 2/2 poor PO intake secondary to alcoholism. (16) Pancreatic insufficiency Current Visit: No Status: Chronic (17) Tobacco abuse Current Visit: Yes Status: Chronic Assessment and plan: Continues to smoke 1 pack per day. Nicotine patch. Declines counseling. (18) Paresthesias Current Visit: No Status: Chronic Assessment and plan: According to his OARRS report, patient has not received prescription for Lyrica since March 2016. This medication he states is very helpful to him but he states that he will not take it if he is drinking because he states alcohol helps his paresthesias just as well as Lyrica does. Gabapentin helping- will continue (19) Withdrawal symptoms, alcohol Current Visit: No Status: Acute Qualifiers: Complication of substance-induced condition: uncomplicated Qualified Code(s ): F10.230 - Alcohol dependence with withdrawal, uncomplicated (20) Hypertension Current Visit: No Status: Chronic Assessment and plan: Controlled until he became hypotensive this am. We will continue to trend and adjust medications as indicated. Holding his ACEI 2/2 SHELLEY overnight Qualifiers: Hypertension type: other secondary hypertension Qualified Code(s): I15.8 - Other secondary hypertension (21) COPD (chronic obstructive pulmonary disease) Current Visit: Yes Status: Acute Assessment and plan: Patient endorses shortness of breath above his norm. Earlier in this admission , he did appear to be in a mild acute exacerbation and he was started on DuoNeb' s and by mouth prednisone. He had been on room air up until this morning. Qualifiers: COPD type: COPD with acute exacerbation Qualified Code(s): J44.1 - Chronic obstructive pulmonary disease with (acute) exacerbation (22) Alcohol dependence Current Visit: No Status: Chronic (23) Toxic metabolic encephalopathy Current Visit: Yes Status: Acute (24) Chronic headaches Current Visit: Yes Status: Chronic Assessment and plan: We will continue his home Imitrex though he has been refusing Imitrex. He has demanded several times that he be given morphine for his headache which he fully knows is not indicated. He states he has had headaches since he was 7 years old. Morphine not indicated. Continue to offer Imitrex. May consider migraine cocktail, we will continue to monitor Qualifiers: Headache type: unspecified Intractability: not intractable Qualified Code (s): R51 - Headache - Time Spent With Patient Greater than 35 minutes - Subjective Interval history: Patient seen and examined early this morning as nursing reported he had become acutely confused and his oxygen levels were decreasing. On examination, patient is sitting in high Chapman's and grunting and tachypneic with moderate respiratory distress. He is able to answer questions regarding orientation and is oriented 4. He is complaining of epigastric abdominal pain and difficulty breathing. - Constitutional Vitals: Temp Pulse Resp BP Pulse Ox 103 F H 115 51 106/70 90 02/06/17 08:05 02/06/17 08:05 02/06/17 08:05 02/06/17 08:05 02/06/17 08:05 General appearance: Present: disheveled, A&O X 3, obese, severe distress ( moderate), answers questions appropriately. Absent: cooperative - Head Head exam: Present: atraumatic, normocephalic - Eye Eye exam: Present: PERRL, conjuntiva pink, sclera anicteric Pupils: Present: PERRL - Neck Neck exam general surgery: Present: supple, trachea midline. Absent: lymphadenopathy - Respiratory Respiratory exam: Present: accessory muscle use, decreased breath sounds, rales , respiratory distress, tachypnea. Absent: rhonchi, stridor, wheezes - Cardiovascular Cardiovascular exam: Present: +S1, +S2, tachycardia. Absent: diastolic murmur, gallop, rubs, systolic murmur - GI/Abdominal GI/Abdominal exam: Present: distended, normal bowel sounds, soft, tenderness, no peritoneal signs - Extremities Exam Extremities exam: Present: warm, radial pulses palpable and symetrical. Absent : calf tenderness, cyanotic, pedal edema - Neurological Exam Neurological exam: Present: alert, altered, CN II-XII intact, oriented X3, no focal deficits, strengths equal and symetr throughout. Absent: pronater drift, facial droop, speech deficit - Skin Skin exam: Present: diaphoretic, intact, pallor Internal Medicine: Result - Labs CBC & Chem 7: 02/06/17 05:03 02/06/17 05:03 Labs: Short CBC 02/06/17 Range/Units 05:03 WBC 11.3 H D (4.3-11.1) K/mcL Hgb 11.7 L (12.9-16.9) g/dL Hct 37.7 (37.5-50.1) % Plt Count 83 L (140-400) K/mcL Neutrophils # 9.0 H (1.6-8.9) K/mcL BMP 02/06/17 05:03 Sodium 138 Potassium 3.3 L Chloride 108 Carbon Dioxide 17 L BUN 21 Creatinine 1.29 H Glucose 102 H Calcium 9.3 Urine 02/05/17 Range/Units 21:05 Urine Color Yellow (Yellow) Urine Clarity Clear (Clear) Urine pH 7.5 (5.0-8.0) pH Units Ur Specific [place] 1.013 (1.010-1.025) Urine Protein Negative (Neg-Trace) mg/dL Urine Glucose (UA) Normal (Normal) mg/dL - ABG Interpretation ABG results: ABG ABG pH 7.42 pH Units (7.32-7.45) 02/06/17 07:52 ABG pCO2 28 mmHg (35-45) L 02/06/17 07:52 ABG pO2 93 mmHg (85-104) 02/06/17 07:52 ABG O2 Saturation 97 % (95-98) 02/06/17 07:52 PT/INR, D-dimer PT 11.2 Seconds (9.4-12.1) 02/01/17 19:13 - Impressions Impressions Liver Ultrasound 02/05/17 09:00 IMPRESSION: Fatty liver. Normal size and morphology of the liver. No sonographic signs of cirrhosis. D/ / 02/05/2017 14:18:42 Nidia Easton MD / [facility] Interpre[facility] Provider: Nidia Easton MD Chest X-Ray 02/06/17 07:23 IMPRESSION: Developing air space opacities in the right lung base which could represent edema or infiltrate. Follow up to resolution is suggested. D/ / 02/06/2017 07:49:44 Ignacia Mohr MD / yer Interpreting Provider: Ignacia Mohr MD - VTE Documentation of Mechanical Device: Graduated compression elastic hosiery Consult Discharge Plan - Plan Referrals: Emmanuel Gonzalez DO [Resident] - 02/24/17 2:00 pm
[2017-02-06] MEDS ORDERED: Vancomycin 2,000 MG in D5% in Water 500 ML IVPB ONE (09:00)
--- NOTE | 2017-02-06 09:06 | Pulmonology History & Physical ---
<KwadwoDinh Ming - Last Filed: 02/06/17 12:35> Date of Encounter: 02/06/17 Time of Encounter: 09:30 Assessment and Plan (1) Sepsis Current visit: No Status: Acute 1. Sepsis SIRS (+) - fever, tachycardia, tachypnea Sepsis from pulmonary source - suspected aspiration pneumonia BP hypotensive with systolic 70's, only venous access was a 22ga in right UE. Unable to place powerwand. Received verbal and written consent for central line. Lactic acid 4.6. - Right IJ central line placed - Levophed titration - Hold antihypertensive medications - Vancomycin day 1 - Zosyn day 1 - Follow lactic acid - 2A sodium bicarb in 1L D5 0.45% NS - Switch NS fluids to LR. 2. Acute respiratory failure Likely secondary to aspiration pneumonia Patient failed bedside swallow study. - Consult to speech therapy 3. Encephalopathy An admission diagnosis; likely due to EtOH withdrawl at that time. Patient currently alert to self, situation, location, year, president. 4. Hx EtOH abuse Last drink was 01/30/17. Was in CIWA protocol while on medical floor. No DTs. - Ativan PRN 5. Hepatitis C Liver ultrasound 02/05/17: hepatosteatosis without cirrhosis. Liver enzymes mildly elevated on intake; likely chronic. 6. Pancreatic insufficiency Secondary to previous partial pancreatectomy. - CREON 7. Schizophrenia - continue home medications 8. BiPolar disorder - continue home medications Qualifiers: Sepsis type: sepsis due to unspecified organism Qualified Code(s): A41.9 - Sepsis, unspecified organism (2) Acute respiratory failure Current visit: No Status: Resolved Qualifiers: Respiratory failure complication: hypoxia Qualified Code(s): J96.01 - Acute respiratory failure with hypoxia (3) Encephalopathy Current visit: No Status: Acute (4) History of alcohol abuse Current visit: No Status: Chronic (5) Hepatitis C Current visit: Yes Status: Acute Qualifiers: Qualified Code(s): B19.20 - Unspecified viral hepatitis C without hepatic coma (6) Pancreatic insufficiency Current visit: No Status: Chronic (7) Schizophrenia Current visit: No Status: Chronic Qualifiers: Schizophrenia type: unspecified Qualified Code(s): F20.9 - Schizophrenia, unspecified (8) Bipolar disorder, unspecified Current visit: No Status: Chronic Qualifiers: Active/Remission status: currently active Current bipolar episode type: mixed Current episode severity: unspecified Qualified Code(s): F31.60 - Bipolar disorder, current episode mixed, unspecified History of Present Illness Chief complaint: MARISEL HPI: Mr. Chen is a 61 year old male being transferred from to the ICU with concerns regarding acute dyspnea requiring high flow O2 as well as acute abdominal pain with distention. Patient was transferred from the [place] to [facility] ER with MARISEL and confusion on . Admitted to the medical floor. Treated chiefly for encephalopathy and EtOH withdrawl. Last EtOH intake was last Thursday; 7 days ago. No DTs while inpatient, CIWA protocol followed. Patient was NPO yesterday for EGD. Nursing found him to be sneaking PO intake - water and food. Nursing noted patient had no gag reflex s/p EGD; likely still anesthetized with cetacaine. Unknown if patient has PO intake thereafter, prior to cetacaine wearing off. Previously patient was on RA and full diet without difficulties swallowing. Patient's past abdominal surgical history is significant. He notes abdominal pain in the right epigastrum with radiation to his back. PMH: COPD, Hep C PSH: appendectomy, cholecystectomhy, partial pancreatectomy, bowel resections, hx PEG tube placement and removal. Psychiatric history: BiPolar, Schizophrenia, hx EtOH dependency, hx tobacco dependency, hx other substance abuse Past Med Surg Social Fam HX - Past Medical History Medical history: arthritis, cirrhosis, COPD, coronary artery disease, CVA, GERD , hepatitis, hyperlipidemia, hypertension, liver disease, migraine, myocardial infarction, osteoporosis (Vitamin D deficiency.), syncope, TIA, other ( Pancreatic insufficiency. Chronic musculoskeletal pain syndrome. Chronic alcoholism.) Psychiatric history: anxiety, bipolar, depression, schizophrenia, previous psychiatric hospitalization, other - Past Surgical History Surgical History: appendectomy, cholecystectomy, other (Partial Pancreatectomy, surgeries for partial bowel resection, PEG insertion, temporary ileostomy and reversal.) - Social History Smoking Status: Current every day smoker Smokeless Tobacco Status: No Alcohol use: heavy, recent Drug use: none, unknown - Family History Mother Family Member Ethnicity: Non- Living Status: Still Living Hx Family Cardiac Disorders: Yes (htn) Hx Family Respiratory Disorders: No Hx Family Cancer: Yes (Colon) Hx Family GI Disorders: No Hx Family Endocrine Disorder: No Hx Family Neuromuscular Disorders: Yes (Neuropathy) Hx Family Neurologic Disorders: No Hx Family HEENT Disorders: No Hx Family Autoimmune Disorders: No Father Living Status: Medications and Allergies Albuterol Sulfate [Proair Hfa] 2 puff IH Q6H PRN 12/21/16 [History] Amlodipine Besylate 10 mg PO DAILY 12/21/16 [History] Budesonide/Formoterol 160/4.5 [Symbicort 160/4.5] 1 puff IH BID 12/21/16 [ History] Cholecalciferol (D-3) [Vitamin D] 1,000 unit PO DAILY 12/21/16 [History] Cyanocobalamin (Vitamin B-12) [Vitamin B12] 500 mcg PO DAILY 12/21/16 [History] Divalproex (24 HR) [Depakote ER (24 HR)] 1,250 mg PO HS 12/21/16 [History] Ergocalciferol (VITAMIN D2) [Vitamin D2] 50,000 unit PO QWEEK 12/21/16 [History] Folic Acid 2 mg PO DAILY 12/21/16 [History] Gabapentin [Neurontin] 600 mg PO TID 12/21/16 [History] Lipase/Protease/Amylase [Creon Dr 36,000 Units Capsule] 36,000 unit PO TID 12/21 [History] Magnesium Oxide [Mag-Ox] 400 mg PO BID 12/21/16 [History] Mirtazapine 7.5 mg PO HS 12/21/16 [History] Omeprazole [PriLOSEC] 20 mg PO DAILY 12/21/16 [History] Quetiapine Fumarate [Seroquel] 300 mg PO HS 12/21/16 [History] SUMAtriptan [Imitrex] 6 mg SQ BID PRN 12/21/16 [History] Thiamine (B-1) [Vitamin B-1] 100 mg PO BID 12/21/16 [History] TraZODone 50 mg PO TID 12/21/16 [History] Chlordiazepoxide [Librium] 25 mg PO TID PRN #40 capsule 12/25/16 [Rx] Lisinopril [Zestril] 10 mg PO DAILY #30 tablet 12/25/16 [Rx] Metoprolol [Lopressor] 50 mg PO BID #30 tablet 12/25/16 [Rx] Allergies No Known Allergies Allergy (Verified 10/12/16 03:54) All Systems: A 10-system review of systems was performed and is negative for pertinent findings except as documented above in the HPI. - Constitutional Constitutional: chills, fever(s), headache(s) - Cardiovascular Cardiovascular: dyspnea, no chest pain - Respiratory Respiratory: dyspnea, no cough, no hemoptysis, no pain on inspirtation - Gastrointestinal Gastrointestinal: abdominal pain, fecal incontinence, vomiting - Psychiatric Psychiatric: anxiety, depression, other (BiPolar, Schizophrenia) Physical Examination Vital Signs: Vital Signs, Last 4 Hours Temp Pulse Resp BP Pulse Ox 02/06/17 08:05 103 F H 115 51 106/70 90 02/06/17 07:20 101.9 F H 118 36 88/47 99 02/06/17 05:17 110/53 General appearance: alert, appears uncomfortable Eyes: nonicteric ENT: oropharynx moist Neck: supple Effort: mildly labored Auscultation: right: clear Results - Laboratory Findings CBC and BMP: 02/06/17 05:03 02/06/17 05:03 ABG ABG pH 7.42 pH Units (7.32-7.45) 02/06/17 07:52 ABG pCO2 28 mmHg (35-45) L 02/06/17 07:52 ABG pO2 93 mmHg (85-104) 02/06/17 07:52 ABG O2 Saturation 97 % (95-98) 02/06/17 07:52 PT/INR, D-dimer PT 11.2 Seconds (9.4-12.1) 02/01/17 19:13 Abnormal lab findings: Abnormal lab results WBC 11.3 K/mcL (4.3-11.1) H D 02/06/17 05:03 Hgb 11.7 g/dL (12.9-16.9) L 02/06/17 05:03 MCH 26.8 pg (28.0-33.3) L 02/06/17 05:03 MCHC 31.0 g/dL (31.6-35.5) L 02/06/17 05:03 RDW 21.3 % (11.5-14.5) H 02/06/17 05:03 Plt Count 83 K/mcL (140-400) L 02/06/17 05:03 Neutrophils # 9.0 K/mcL (1.6-8.9) H 02/06/17 05:03 Platelet Estimate Decreased (Normal) L 02/06/17 05:03 Immature Plt Fraction 7.8 % (1.1-6.1) H 02/06/17 05:03 Anisocytosis 2+ (Not Present) A 02/06/17 05:03 ABG pCO2 28 mmHg (35-45) L 02/06/17 07:52 ABG HCO3 18.2 mEQ/L (21-27) L 02/06/17 07:52 ABG Total CO2 19.1 mEq/L (20-26) L 02/06/17 07:52 ABG Base Excess -5.1 mEq/L (-2.0 to 3.0) L 02/06/17 07:52 VBG pH 7.56 pH Units (7.32-7.42) H 02/01/17 20:30 VBG pCO2 25 mmHg (41-51) L 02/01/17 20:30 VBG pO2 111 mmHg (25-40) H 02/01/17 20:30 Potassium 3.3 mEq/L (3.5-4.5) L 02/06/17 05:03 Carbon Dioxide 17 mEq/L (19-29) L 02/06/17 05:03 Creatinine 1.29 mg/dL (0.72-1.25) H 02/06/17 05:03 Est GFR (Non-Af Amer) 57 (> 60) L 02/06/17 05:03 Glucose 102 mg/dL (70-99) H 02/06/17 05:03 POC Glucose 107 (58-89) H 02/05/17 07:40 Ionized Calcium 1.04 mmol/L (1.15-1.35) L 02/01/17 20:30 Phosphorus 2.2 mg/dL (2.3-4.7) L 02/01/17 20:30 % Saturation 14 % (20-55) L 02/04/17 12:19 AST 84 Units/L (5-34) H 02/03/17 13:25 ALT 75 Units/L (0-55) H 02/03/17 13:25 Globulin 4.0 g/dL (2.4-3.5) H 02/03/17 13:25 Albumin/Globulin Ratio 1.0 (1.1-2.2) L 02/03/17 13:25 LDL Cholesterol, Calc 119 mg/dL (0-99) H 02/01/17 20:30 TSH 5.937 mcIU/mL (0.350-4.840) H 02/02/17 02:38 Free T3 3.73 pg/mL (1.71-3.71) H 02/03/17 13:25 Ur Squamous Epith Cells Moderate per lpf (None-Few) H 02/02/17 00:30 Urine Opiates Screen Positive ng/mL (Pklxtp=069) H 02/05/17 21:05 Free Valproic Acid <7 ug/mL (7-23) L 02/01/17 20:30 Total Valproic Acid <7 ug/mL (50-125) L 02/01/17 20:30 U Benzodiazepines Scrn Positive ng/mL (Yoneho=352) H 02/05/17 21:05 Hepatitis C Ab Screen Reactive (Nonreactive) H 02/04/17 12:19 - Diagnostic Findings Chest x-ray: report reviewed, image reviewed CT scan - chest: report reviewed, image reviewed - VTE Documentation of Mechanical Device: Graduated compression elastic hosiery <Ellie Lane - Last Filed: 02/06/17 14:25> Date of Encounter: 02/06/17 History of Present Illness HPI: Mr. Chen is a 61 year old male All Systems: A 10-system review of systems was performed and is negative for pertinent findings except as documented above in the HPI. Physical Examination Vital Signs: Vital Signs, Last 4 Hours Temp Pulse Resp BP Pulse Ox 02/06/17 14:00 108 32 123/76 96 02/06/17 13:00 99.3 F 100 24 94/54 99 02/06/17 12:00 100 28 88/57 100 02/06/17 11:00 108 28 91/50 98 02/06/17 10:34 18 97 Results - Laboratory Findings CBC and BMP: 02/06/17 05:03 02/06/17 05:03 ABG ABG pH 7.42 pH Units (7.32-7.45) 02/06/17 07:52 ABG pCO2 28 mmHg (35-45) L 02/06/17 07:52 ABG pO2 93 mmHg (85-104) 02/06/17 07:52 ABG O2 Saturation 97 % (95-98) 02/06/17 07:52 PT/INR, D-dimer PT 11.2 Seconds (9.4-12.1) 02/01/17 19:13 Abnormal lab findings: Abnormal lab results WBC 11.3 K/mcL (4.3-11.1) H D 02/06/17 05:03 Hgb 11.7 g/dL (12.9-16.9) L 02/06/17 05:03 MCH 26.8 pg (28.0-33.3) L 02/06/17 05:03 MCHC 31.0 g/dL (31.6-35.5) L 02/06/17 05:03 RDW 21.3 % (11.5-14.5) H 02/06/17 05:03 Plt Count 83 K/mcL (140-400) L 02/06/17 05:03 Neutrophils # 9.0 K/mcL (1.6-8.9) H 02/06/17 05:03 Platelet Estimate Decreased (Normal) L 02/06/17 05:03 Immature Plt Fraction 7.8 % (1.1-6.1) H 02/06/17 05:03 Anisocytosis 2+ (Not Present) A 02/06/17 05:03 ABG pCO2 28 mmHg (35-45) L 02/06/17 07:52 ABG HCO3 18.2 mEQ/L (21-27) L 02/06/17 07:52 ABG Total CO2 19.1 mEq/L (20-26) L 02/06/17 07:52 ABG Base Excess -5.1 mEq/L (-2.0 to 3.0) L 02/06/17 07:52 VBG pH 7.56 pH Units (7.32-7.42) H 02/01/17 20:30 VBG pCO2 25 mmHg (41-51) L 02/01/17 20:30 VBG pO2 111 mmHg (25-40) H 02/01/17 20:30 Potassium 3.3 mEq/L (3.5-4.5) L 02/06/17 05:03 Carbon Dioxide 17 mEq/L (19-29) L 02/06/17 05:03 Creatinine 1.29 mg/dL (0.72-1.25) H 02/06/17 05:03 Est GFR (Non-Af Amer) 57 (> 60) L 02/06/17 05:03 Glucose 102 mg/dL (70-99) H 02/06/17 05:03 POC Glucose 107 (58-89) H 02/05/17 07:40 Lactic Acid 4.6 mmol/L (0.5-2.2) H* 02/06/17 11:14 Ionized Calcium 1.04 mmol/L (1.15-1.35) L 02/01/17 20:30 Phosphorus 2.2 mg/dL (2.3-4.7) L 02/01/17 20:30 % Saturation 14 % (20-55) L 02/04/17 12:19 Direct Bilirubin 0.6 mg/dL (0.0-0.5) H 02/06/17 11:14 Albumin 2.9 g/dL (3.5-5.0) L D 02/06/17 11:14 Albumin/Globulin Ratio 0.8 (1.1-2.2) L 02/06/17 11:14 LDL Cholesterol, Calc 119 mg/dL (0-99) H 02/01/17 20:30 Lipase 5 Units/L (8-78) L 02/06/17 11:14 TSH 5.937 mcIU/mL (0.350-4.840) H 02/02/17 02:38 Free T3 3.73 pg/mL (1.71-3.71) H 02/03/17 13:25 Urine Clarity Cloudy (Clear) A 02/06/17 08:31 Urine Protein 30 mg/dL (Neg-Trace) H 02/06/17 08:31 Urine Ketones Trace mg/dL (Negative) H 02/06/17 08:31 Ur Squamous Epith Cells Many per lpf (None-Few) H 02/06/17 08:31 Urine Opiates Screen Positive ng/mL (Srzdbz=253) H 02/05/17 21:05 Free Valproic Acid <7 ug/mL (7-23) L 02/01/17 20:30 Total Valproic Acid <7 ug/mL (50-125) L 02/01/17 20:30 U Benzodiazepines Scrn Positive ng/mL (Dnhpas=156) H 02/05/17 21:05 Hepatitis C Ab Screen Reactive (Nonreactive) H 02/04/17 12:19 - Attending Attestation I examined this patient and my medical decision-making was reviewed with the P[employer] MAN/PA/Advanced Practice Nurse/Resident Physician. I agree with the documented findings, disposition and treatment plan as described except to the extent set forth below. I was called by the primary team to evaluate this patient for respiratory distress and requiring higher FiO2 with mental status change. Patient was evaluated on 3B unit and then in the ICU. Patient seen and examined. Labs, radiology, chart personally reviewed. Agree with resident's history and physical, assessment, plan with following comments: ACCESS CLERK: Patient follows commands, however still have some confusion. I suspect this is multifactorial encephalopathy from a strong history of alcohol abuse as well as could be metabolic. Pulmonary: Patient is not tolerating noninvasive ventilation and also due to his abdominal distention will try high flow oxygen and there is possibility he could deteriorate and may need invasive mechanical ventilation. ABG was done and reviewed.. Patient has respiratory distress with evidence of metabolic acidosis. Cardiovascular: Patient has hypertensive, sepsis related to fluid resuscitation. Since he has history of alcohol abuse we need to make sure it is not cardiac related. ( GI: Nutrition per dietary and GI prophylaxis per routine Heme: DVT prophylaxis per routine ID: Continue antibiotics and plan to de-escalation. Check lactic acid and fluid resuscitation. Renal; urine out put and renal funtion reviewed.bicarbonate infusion Endorcine: blood glucose is monitored Lines: all lines checked and no evidence of infections. Central line was placed due to difficulty having access and also may need vasopressors. Skin: skin care to prevent pressure ulcers per nursing routine care I spent 35 min of Critical Care time with this patient. It involved decision making of high complexity to assess, manipulate, and support vital organ system failure and/or to prevent further life threatening deterioration of the patient' s condition. The time involved in the performance of separately reportable procedures was not counted toward critical care time.
[2017-02-06 10:13] LABS: Bilirubin,Urine Negative (Negative); Blood,Urine Negative (Negative); Clarity,Urine Cloudy (Clear); Color,Urine Dark Yellow (Yellow); Glucose,Urine (UA) Normal (Normal); Ketones,Urine Trace mg/dL (Negative); Leukocyte Esterase,Urine Negative (Negative); Nitrite,Urine Negative (Negative); PH,Urine 6.5 pH Units (5.0-8.0); Protein,Urine 30 mg/dL (Neg-Trace); Specific Gravity,Urine 1.018 (1.010-1.025); Urobilinogen,Urine Normal (Normal)
[2017-02-06 10:14] LABS: Bacteria,Urine None Seen per hpf (None-Few); Hyaline Casts,Urine None Seen per lpf (None-Few); RBC,Urine 0-3 per hpf (0-3); Squamous Epithelial Cell,Urine Many per lpf (None-Few); WBC,Urine 0-3 per hpf (0-3)
[2017-02-06] MEDS: Nicotine 21 MG PATCH.TD24 TD SCH (10:14)
[2017-02-06] MEDS: amLODIPine 5 MG TABLET PO SCH (10:17)
[2017-02-06] MEDS: Budesonide/Formoterol 160/4.5 MDI IH SCH ×2 (10:34→20:58)
[2017-02-06 10:37] LABS: Amorphous Sediment,Urine Few (Few)
[2017-02-06] MEDS ORDERED: SUMAtriptan 6 MG/0.5 ML SQ PRN (10:43)
[2017-02-06] MEDS ORDERED: *HR* LORazepam 2 MG/ML VIAL IVP PRN ×2 (10:43)
[2017-02-06] MEDS ORDERED: Naloxone 0.4 MG/ML INJ IVP PRN (10:43)
[2017-02-06] MEDS ORDERED: 0.9 % Sodium Chloride 1,000 ML IVC SCH (10:43)
[2017-02-06] MEDS ORDERED: Benzonatate 100 MG CAPSULE PO PRN (10:43)
[2017-02-06] MEDS ORDERED: *HR* Promethazine 25 MG/ML VIAL IVP PRN (10:43)
[2017-02-06] MEDS ORDERED: Ringers Solution, Lactated 1,000 ML IVC ONE (11:20)
[2017-02-06] MEDS ORDERED: NACL IVC SCH (11:30)
[2017-02-06] MEDS ORDERED: SODIUM BICARBONATE IVC SCH (11:30)
[2017-02-06] MEDS ORDERED: D5 IVC SCH (11:30)
[2017-02-06] MEDS ORDERED: Norepinephrine 4 MG in D5% in Water 250 ML IVC SCH (11:30)
[2017-02-06 11:39] LABS: Albumin/Globulin Ratio 0.8 (1.1-2.2); Bilirubin,Direct 0.6 mg/dL (0.0-0.5); Bilirubin,Indirect 0.3 mg/dL (0.0-1.2); Bilirubin,Total 0.9 mg/dL (0.2-1.2); Globulin 3.5 g/dL (2.4-3.5); Total Protein 6.4 g/dL (6.0-8.3)
[2017-02-06 11:41] LABS: Albumin 2.9 g/dL (3.5-5.0)
[2017-02-06] MEDS: Bisacodyl 10 MG RECTAL SUPPOSITORY RC SCH (11:53)
--- NOTE | 2017-02-06 12:41 | Electrocardiograph Report ---
[address] [place] [address] Test Date: 2017-02-05 Pat Name: Lauri Chen Department: 113 Room: [facility] Gender: M Implementation Services Analyst: [id number] : 1955 Requested By: Ne Mathew Order Number: [id number] Reading MD: Lisa Dinero Measurements Intervals [place] Rate: 129 P: 48 CO: 157 QRS: -10 QRSD: 87 T: 31 QT: 274 QTc: 350 Interpretive Statements SINUS TACHYCARDIA INFERIOR MYOCARDIAL INFARCTION, PROBABLY OLD WITH POSTERIOR EXTENSION Electronically Signed On 02-06-2017 12:39:22 EDT by Lisa Dinero
[2017-02-06] MEDS: *HR* LORazepam 2 MG/ML VIAL IVP PRN ×2 (14:00→19:18)
[2017-02-06] MEDS: Piperacillin/Tazobactam 3.375 GM in D5% in Water (Mini-Bag+) 100 ML IVPB SCH ×2 (15:56→23:44)
[2017-02-06] MEDS: Acetaminophen 650 MG RECTAL SUPP RC PRN (16:52)
[2017-02-06] MEDS ORDERED: Pantoprazole 40 MG VIAL IVP SCH (18:00)
[2017-02-06] MEDS: Ringers Solution, Lactated 1,000 ML IVC SCH ×2 (19:19→19:51)
[2017-02-06] MEDS: Divalproex (24 HR) 250 MG TABLET PO SCH (20:03)
[2017-02-06 20:48] LABS: ABG Base Excess -3.6 mEq/L (-2.0 to 3.0); ABG HCO3 20.1 mEQ/L (21-27); ABG Oxygen Saturation 97 % (95-98); ABG PCO2 31 mmHg (35-45); ABG PH 7.42 pH Units (7.32-7.45); ABG PO2 90 mmHg (85-104); ABG TCO2 21.1 mEq/L (20-26)
[2017-02-06 20:49] LABS: Blood Gas FiO2 30 %
[2017-02-07] MEDS: *HR* LORazepam 2 MG/ML VIAL IVP PRN ×2 (01:31)
[2017-02-07] MEDS: Ringers Solution, Lactated 1,000 ML IVC SCH ×3 (02:51→17:01)
[2017-02-07 03:42] LABS: BUN/Creatinine Ratio 17 (6-26); Blood Urea Nitrogen 22 mg/dL (8-26); Calcium 8.2 mg/dL (8.6-10.8); Carbon Dioxide 18 mEq/L (19-29); Chloride 105 mEq/L (98-109); Glucose 96 mg/dL (70-99); Hematocrit 32.4 % (37.5-50.1); Mean Corpuscular Volume 85.5 fL (83.0-100.0); Osmolality,Calculated 291 (280-300); Potassium 3.1 mEq/L (3.5-4.5); Red Blood Count 3.79 M/mcL (4.19-5.50); Sodium 139 mEq/L (136-145); eGFR For African Americans > 60 (> 60); eGFR For Non-African Americans 55 (> 60)
[2017-02-07 03:44] LABS: Basophils % 0.3 %; Immature Granulocytes % 14.5 % (0-4); Immature Platelets 8.1 % (1.1-6.1); Lymphocytes # 0.4 K/mcL (0.6-4.6); Lymphocytes % 4.7 %; Mean Corpuscular HGB Conc 30.9 g/dL (31.6-35.5); Mean Corpuscular Hemoglobin 26.4 pg (28.0-33.3); Mean Platelet Volume 11.8 fL (9.4-12.4); Monocytes # 0.9 K/mcL (0.0-1.3); Monocytes % 11.6 %; Neutrophils # 5.3 K/mcL (1.6-8.9); Red Cell Distribution Width 20.7 % (11.5-14.5); Segmented Neutrophils % 68.9 %
[2017-02-07] MEDS ORDERED: 0.9 % Sodium Chloride 1,000 ML IVC ONE ×3 (04:11→10:23)
[2017-02-07] MEDS ORDERED: 0.9 % Sodium Chloride 1,000 ML IVC SCH (04:15)
[2017-02-07 04:18] LABS: Platelet Count 69 K/mcL (140-400)
[2017-02-07 04:20] LABS: Platelet Estimate Marked Decrease (Normal)
[2017-02-07] MEDS: Ipratropium/Albuterol Neb 3 ML IH SCH ×4 (04:32→21:15)
[2017-02-07] MEDS: *HR* Enoxaparin 40 MG/0.4 ML SYRINGE SQ SCH (05:00)
[2017-02-07 05:43] LABS: ABG Base Excess -8.5 mEq/L (-2.0 to 3.0); ABG HCO3 16.2 mEQ/L (21-27); ABG Oxygen Saturation 94 % (95-98); ABG PCO2 30 mmHg (35-45); ABG PH 7.34 pH Units (7.32-7.45); ABG PO2 76 mmHg (85-104); ABG TCO2 17.1 mEq/L (20-26); Blood Gas FiO2 30 %
[2017-02-07] MEDS ORDERED: Sodium Bicarbonate 100 MEQ in D5% in Water 1,000 ML IVC SCH (06:45)
--- NOTE | 2017-02-07 07:31 | Procedure Note ---
<BurkettDinh Rioslas - Last Filed: 02/07/17 07:29> Date of procedure: 02/06/17 Pre-op diagnosis: Hypotension, poor vascular access Post-op diagnosis: same Procedure: <KwadwoDinh Ming - Last Filed: 02/06/17 12:37> Date of procedure: 02/06/17 Pre-op diagnosis: hypotension, poor IV access Post-op diagnosis: same Procedure: Location: Right IJ A time-out was completed verifying correct patient, procedure, site, positioning , and equipment. The patient was placed supine with head rotated left. Ultrasound was used to straw hat brim cutter operator the area looking for anatomic abnormalities - none were found. The patients left neck and clavicle were prepped and draped in sterile fashion. 1% Lidocaine was used to anesthetize the surrounding skin area. Each lumen of the catheter was evacuated of air and flushed with sterile saline. Under ultrasound guidance, access was obtained in the right IJ. The guide wire was advanced, position confirmed with ultrasound. A triple lumen catheter was introduced into the the right internal jugular vein using the Seldinger technique. The catheter was threaded smoothly over the guide wire and appropriate blood return was obtained. The catheter was then sutured in place to the skin and a sterile dressing applied. Perfusion to the extremity distal to the point of catheter insertion was checked and found to be adequate. Dr. Lane was present for the entire procedure. Placement was confirmed via portable CXR. Estimated Blood Loss: 3mL The patient tolerated the procedure well and there were no complications. Surgeon: Dinh Burkett Estimated blood loss (cc): 3 IV fluids (cc): 0 Urine output (cc): 0 Pathology: none sent Condition: stable Disposition: ICU Anesthesia: local Surgeon: Dinh Burkett Estimated blood loss (cc): 3 IV fluids (cc): 0 Urine output (cc): 0 Pathology: none sent Condition: stable Disposition: ICU <Ellie Lane - Last Filed: 02/07/17 12:40> Procedure: I have personally supervised and assisted in placing central line without immediate complications.
[2017-02-07] MEDS: Piperacillin/Tazobactam 3.375 GM in D5% in Water (Mini-Bag+) 100 ML IVPB SCH ×3 (07:34→23:50)
[2017-02-07] MEDS: Pantoprazole 40 MG VIAL IVP SCH (07:49)
[2017-02-07] MEDS: Nicotine 21 MG PATCH.TD24 TD SCH (07:49)
[2017-02-07] MEDS: Bisacodyl 10 MG RECTAL SUPPOSITORY RC SCH (07:50)
[2017-02-07] MEDS: *HR* Morphine 2 MG/ML SYRINGE IVP PRN (08:21)
[2017-02-07] MEDS: Budesonide/Formoterol 160/4.5 MDI IH SCH ×2 (08:42→21:16)
[2017-02-07] MEDS ORDERED: predniSONE 20 MG TABLET PO SCH (09:00)
[2017-02-07] MEDS ORDERED: *HR* FentaNYL (PF) 100 MCG/2 ML VIAL ONE (09:11)
[2017-02-07] MEDS ORDERED: Aminoglycoside Consult 1 EACH MC ONE (09:24)
[2017-02-07] MEDS ORDERED: Dexmedetomidine HCl 400 MCG/100 ML MLS IVC ONE (09:29)
[2017-02-07] MEDS ORDERED: *HR* FentaNYL (PF) 100 MCG/2 ML VIAL IVP ONE (09:33)
[2017-02-07] MEDS ORDERED: *HR* Etomidate 20 MG/10 ML AMPUL IVP ONE (09:33)
[2017-02-07] MEDS ORDERED: *HR* Propofol 200 MG/20 ML VIAL IVP ONE (09:34)
[2017-02-07] MEDS: Dexmedetomidine HCl 400 MCG/100 ML MLS IVC SCH ×4 (09:40→22:53)
[2017-02-07] MEDS: amLODIPine 5 MG TABLET PO SCH (09:55)
[2017-02-07] MEDS: Thiamine (B-1) 100 MG TABLET PO SCH (09:59)
[2017-02-07 10:18] LABS: ABG Base Excess -7.1 mEq/L (-2.0 to 3.0); ABG HCO3 17.3 mEQ/L (21-27); ABG Oxygen Saturation 95 % (95-98); ABG PCO2 30 mmHg (35-45); ABG PH 7.37 pH Units (7.32-7.45); ABG PO2 78 mmHg (85-104); ABG TCO2 18.2 mEq/L (20-26); Blood Gas FiO2 50 %
[2017-02-07] MEDS: MethylPREDNISolone 40 MG/ML VIAL IVP SCH (10:24)
[2017-02-07] MEDS ORDERED: Phenylephrine 10 MG in D5% in Water 250 ML IVC SCH (10:45)
--- NOTE | 2017-02-07 10:50 | Pulmonology Progress Note ---
<Dinh Burkett - Last Filed: 02/07/17 13:07> Date of Encounter: 02/07/17 Assessment and Plan (1) Sepsis Current Visit: No Status: Acute 1. Sepsis SIRS (+) on ICU intake: fever, tachycardia, tachypnea Sepsis from pulmonary source: suspected aspiration pneumonia BP hypotensive with systolic 70's, only venous access was a 22ga in right UE. Unable to place powerwand. Received verbal and written consent for central line. Lactic acid 4.6 > 7.3 > 7.5 Patient decompensated overnight. He continues to refuse BiPap. Sepsis worsening. Approaching multi-organ failure - lungs, liver (hepatitis), worsening renal function. Tachycardic, tachypnic. No leukocytosis. Lactic acidosis with ABG pH 7.34. Labs: - CBC, BMP, lactic acid, ABG Sedation & pain control: - Precedex IV titrate - Fentanyl IV titrate Abx: - Vancomycin day 2 - Zosyn day 2 Fluids: - 1A sodium bicarb - 2L IV bolus - Maintenance IV fluids = LR Misc: - electrolyte protocol - restraints - DVT prophylaxis - Lovenox - PUD prophylaxis - protonix 2. Acute respiratory failure Likely secondary to aspiration pneumonia Patient failed bedside swallow study. - Consult to speech therapy 3. Encephalopathy An admission diagnosis; likely due to EtOH withdrawl at that time. Patient currently alert to self, situation, location, year, president. 4. Hx EtOH abuse Last drink was 01/30/17. Was in CIWA protocol while on medical floor. No DTs. - Ativan PRN 5. Hepatitis C Liver ultrasound 02/05/17: hepatosteatosis without cirrhosis. Liver enzymes mildly elevated on intake; likely chronic. 6. Pancreatic insufficiency Secondary to previous partial pancreatectomy. - CREON 7. Schizophrenia - continue home medications 8. 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 Sepsis SIRS (+) - fever, tachycardia, tachypnea Sepsis from pulmonary source - suspected aspiration pneumonia BP hypotensive with systolic 70's, only venous access was a 22ga in right UE. Unable to place powerwand. Received verbal and written consent for central line. Lactic acid 4.6. - Right IJ central line placed - Levophed titration - Hold antihypertensive medications - Vancomycin day 1 - Zosyn day 1 - Follow lactic acid - 2A sodium bicarb in 1L D5 0.45% NS - Switch NS fluids to LR. 2. Acute respiratory failure Likely secondary to aspiration pneumonia Patient failed bedside swallow study. - Consult to speech therapy 3. Encephalopathy An admission diagnosis; likely due to EtOH withdrawl at that time. Patient currently alert to self, situation, location, year, president. 4. Hx EtOH abuse Last drink was 01/30/17. Was in CIWA protocol while on medical floor. No DTs. - Ativan PRN 5. Hepatitis C Liver ultrasound 02/05/17: hepatosteatosis without cirrhosis. Liver enzymes mildly elevated on intake; likely chronic. 6. Pancreatic insufficiency Secondary to previous partial pancreatectomy. - CREON 7. Schizophrenia - continue home medications 8. BiPolar disorder - continue home medications Qualifiers: Respiratory failure complication: hypoxia Qualified Code(s): J96.01 - Acute respiratory failure with hypoxia (3) Encephalopathy Current Visit: No Status: Acute (4) History of alcohol abuse Current Visit: No Status: Chronic (5) Hepatitis C Current Visit: Yes Status: Acute Qualifiers: Viral hepatitis chronicity: chronic Qualified Code(s): B18.2 - Chronic viral hepatitis C (6) Pancreatic insufficiency Current Visit: No Status: Chronic (7) Schizophrenia Current Visit: No Status: Chronic Qualifiers: Schizophrenia type: unspecified Qualified Code(s): F20.9 - Schizophrenia, unspecified (8) Bipolar disorder, unspecified Current Visit: No Status: Chronic Qualifiers: Active/Remission status: currently active Current bipolar episode type: mixed Current episode severity: unspecified Qualified Code(s): F31.60 - Bipolar disorder, current episode mixed, unspecified Subjective Principal diagnosis: acute respiratory failure Interval history: Mr. Chen is worsening in his clinical course. He is awake but not alert; spontaneously opens eyes, able to answer questions about his health, confused regarding location (asked to be taken to the ER). Objective PUL Vital signs: Last Vital Signs Temp 100.4 F H 02/07/17 07:18 Pulse 141 02/07/17 10:00 Resp 27 02/07/17 10:00 BP 80/48 02/07/17 10:00 Pulse Ox 98 02/07/17 10:00 General appearance: lethargic Eyes: nonicteric ENT: oropharynx dry Neck: supple Effort: mildly labored Auscultation: right: rales, bilateral: diminished breath sounds, wheezes Cardiovascular: regular rate and rhythm Gastrointestinal: normoactive bowel sounds, soft, non-tender, non-distended Integumentary: normal Extremities: no cyanosis, no edema, pink and warm, pulses normal Musculoskeletal: no deformities pupils equal and round affect normal Ventilator Settings Ventilator Settings: Ventilator Settings, Last 8 Hours Ventilator Mode VC+ Ventilator Tidal Volume 550 Setting Ventilator Respiratory Rate 12 Setting Actual Respiratory Rate 25 Positive End Expiratory 5 Pressure Peak Inspiratory Airway 14 Pressure Results - Laboratory Findings CBC and BMP: 02/07/17 03:20 02/07/17 03:20 ABG ABG pH 7.37 pH Units (7.32-7.45) 02/07/17 10:00 ABG pCO2 30 mmHg (35-45) L 02/07/17 10:00 ABG pO2 78 mmHg (85-104) L 02/07/17 10:00 ABG O2 Saturation 95 % (95-98) 02/07/17 10:00 PT/INR, D-dimer PT 11.2 Seconds (9.4-12.1) 02/01/17 19:13 Abnormal lab findings: Abnormal lab results RBC 3.79 M/mcL (4.19-5.50) L 02/07/17 03:20 Hgb 10.0 g/dL (12.9-16.9) L D 02/07/17 03:20 Hct 32.4 % (37.5-50.1) L 02/07/17 03:20 MCH 26.4 pg (28.0-33.3) L 02/07/17 03:20 MCHC 30.9 g/dL (31.6-35.5) L 02/07/17 03:20 RDW 20.7 % (11.5-14.5) H 02/07/17 03:20 Plt Count 69 K/mcL (140-400) L 02/07/17 03:20 Immature Gran % 14.5 % (0-4) H 02/07/17 03:20 Lymphocytes # 0.4 K/mcL (0.6-4.6) L 02/07/17 03:20 Platelet Estimate Marked Decrease (Normal) L 02/07/17 03:20 Immature Plt Fraction 8.1 % (1.1-6.1) H 02/07/17 03:20 Anisocytosis 2+ (Not Present) A 02/06/17 05:03 ABG pCO2 30 mmHg (35-45) L 02/07/17 10:00 ABG pO2 78 mmHg (85-104) L 02/07/17 10:00 ABG HCO3 17.3 mEQ/L (21-27) L 02/07/17 10:00 ABG Total CO2 18.2 mEq/L (20-26) L 02/07/17 10:00 ABG Base Excess -7.1 mEq/L (-2.0 to 3.0) L 02/07/17 10:00 VBG pH 7.56 pH Units (7.32-7.42) H 02/01/17 20:30 VBG pCO2 25 mmHg (41-51) L 02/01/17 20:30 VBG pO2 111 mmHg (25-40) H 02/01/17 20:30 Potassium 3.1 mEq/L (3.5-4.5) L 02/07/17 03:20 Carbon Dioxide 18 mEq/L (19-29) L 02/07/17 03:20 Creatinine 1.33 mg/dL (0.72-1.25) H 02/07/17 03:20 Est GFR (Non-Af Amer) 55 (> 60) L 02/07/17 03:20 POC Glucose 102 (58-89) H 02/06/17 23:25 Lactic Acid 7.5 mmol/L (0.5-2.2) H* 02/07/17 10:00 Calcium 8.2 mg/dL (8.6-10.8) L 02/07/17 03:20 Ionized Calcium 1.04 mmol/L (1.15-1.35) L 02/01/17 20:30 Phosphorus 2.2 mg/dL (2.3-4.7) L 02/01/17 20:30 % Saturation 14 % (20-55) L 02/04/17 12:19 Direct Bilirubin 0.6 mg/dL (0.0-0.5) H 02/06/17 11:14 Albumin 2.9 g/dL (3.5-5.0) L D 02/06/17 11:14 Albumin/Globulin Ratio 0.8 (1.1-2.2) L 02/06/17 11:14 LDL Cholesterol, Calc 119 mg/dL (0-99) H 02/01/17 20:30 Lipase 5 Units/L (8-78) L 02/06/17 11:14 TSH 5.937 mcIU/mL (0.350-4.840) H 02/02/17 02:38 Free T3 3.73 pg/mL (1.71-3.71) H 02/03/17 13:25 Urine Clarity Cloudy (Clear) A 02/06/17 08:31 Urine Protein 30 mg/dL (Neg-Trace) H 02/06/17 08:31 Urine Ketones Trace mg/dL (Negative) H 02/06/17 08:31 Ur Squamous Epith Cells Many per lpf (None-Few) H 02/06/17 08:31 Urine Opiates Screen Positive ng/mL (Ltqazn=891) H 02/05/17 21:05 Free Valproic Acid <7 ug/mL (7-23) L 02/01/17 20:30 Total Valproic Acid <7 ug/mL (50-125) L 02/01/17 20:30 U Benzodiazepines Scrn Positive ng/mL (Ebjuzn=027) H 02/05/17 21:05 Hepatitis C Ab Screen Reactive (Nonreactive) H 02/04/17 12:19 - Clinical Findings Intake & Output: Intake & Output 02/06/17 02/07/17 02/07/17 23:59 07:59 15:59 Intake Total 2100 / 2100 2500 / 2500 853 / 853 Output Total 1275 / 1275 1300 / 1300 0 / 0 Balance 825 / 825 1200 / 1200 853 / 853 Weight 109.2 kg - VTE Documentation of Mechanical Device: Graduated compression elastic hosiery Consult Discharge Plan - Plan Referrals: Emmanuel Gonzalez DO [Resident] - 02/24/17 2:00 pm <Ellie Lane - Last Filed: 02/07/17 18:17> Date of Encounter: 02/07/17 Time of Encounter: 07:30 Objective PUL Vital signs: Last Vital Signs Temp 100.4 F H 02/07/17 07:18 Pulse 141 04/22/17 10:00 Resp 27 02/07/17 10:00 BP 80/48 02/07/17 10:00 Pulse Ox 98 02/07/17 10:00 Ventilator Settings Ventilator Settings: Ventilator Settings, Last 8 Hours Ventilator Mode VC+ Ventilator Tidal Volume 550 Setting Ventilator Respiratory Rate 12 Setting Actual Respiratory Rate 25 Positive End Expiratory 5 Pressure Peak Inspiratory Airway 14 Pressure Results - Laboratory Findings CBC and BMP: 02/07/17 03:20 02/07/17 14:20 ABG ABG pH 7.37 pH Units (7.32-7.45) 02/07/17 10:00 ABG pCO2 30 mmHg (35-45) L 02/07/17 10:00 ABG pO2 78 mmHg (85-104) L 02/07/17 10:00 ABG O2 Saturation 95 % (95-98) 02/07/17 10:00 PT/INR, D-dimer PT 11.2 Seconds (9.4-12.1) 02/01/17 19:13 Abnormal lab findings: Abnormal lab results RBC 3.79 M/mcL (4.19-5.50) L 02/07/17 03:20 Hgb 10.0 g/dL (12.9-16.9) L D 02/07/17 03:20 Hct 32.4 % (37.5-50.1) L 02/07/17 03:20 MCH 26.4 pg (28.0-33.3) L 02/07/17 03:20 MCHC 30.9 g/dL (31.6-35.5) L 02/07/17 03:20 RDW 20.7 % (11.5-14.5) H 02/07/17 03:20 Plt Count 69 K/mcL (140-400) L 02/07/17 03:20 Immature Gran % 14.5 % (0-4) H 02/07/17 03:20 Lymphocytes # 0.4 K/mcL (0.6-4.6) L 02/07/17 03:20 Platelet Estimate Marked Decrease (Normal) L 02/07/17 03:20 Immature Plt Fraction 8.1 % (1.1-6.1) H 02/07/17 03:20 Anisocytosis 2+ (Not Present) A 02/06/17 05:03 ABG pCO2 30 mmHg (35-45) L 02/07/17 10:00 ABG pO2 78 mmHg (85-104) L 02/07/17 10:00 ABG HCO3 17.3 mEQ/L (21-27) L 02/07/17 10:00 ABG Total CO2 18.2 mEq/L (20-26) L 02/07/17 10:00 ABG Base Excess -7.1 mEq/L (-2.0 to 3.0) L 02/07/17 10:00 VBG pH 7.56 pH Units (7.32-7.42) H 02/01/17 20:30 VBG pCO2 25 mmHg (41-51) L 02/01/17 20:30 VBG pO2 111 mmHg (25-40) H 02/01/17 20:30 Potassium 3.1 mEq/L (3.5-4.5) L 02/07/17 03:20 Carbon Dioxide 18 mEq/L (19-29) L 02/07/17 03:20 Creatinine 1.33 mg/dL (0.72-1.25) H 02/07/17 03:20 Est GFR (Non-Af Amer) 55 (> 60) L 02/07/17 03:20 POC Glucose 102 (58-89) H 02/06/17 23:25 Lactic Acid 7.5 mmol/L (0.5-2.2) H* 02/07/17 10:00 Calcium 8.2 mg/dL (8.6-10.8) L 02/07/17 03:20 Ionized Calcium 1.04 mmol/L (1.15-1.35) L 02/01/17 20:30 Phosphorus 2.2 mg/dL (2.3-4.7) L 02/01/17 20:30 % Saturation 14 % (20-55) L 02/04/17 12:19 Direct Bilirubin 0.6 mg/dL (0.0-0.5) H 02/06/17 11:14 Albumin 2.9 g/dL (3.5-5.0) L D 02/06/17 11:14 Albumin/Globulin Ratio 0.8 (1.1-2.2) L 02/06/17 11:14 LDL Cholesterol, Calc 119 mg/dL (0-99) H 02/01/17 20:30 Lipase 5 Units/L (8-78) L 02/06/17 11:14 TSH 5.937 mcIU/mL (0.350-4.840) H 02/02/17 02:38 Free T3 3.73 pg/mL (1.71-3.71) H 02/03/17 13:25 Urine Clarity Cloudy (Clear) A 02/06/17 08:31 Urine Protein 30 mg/dL (Neg-Trace) H 02/06/17 08:31 Urine Ketones Trace mg/dL (Negative) H 02/06/17 08:31 Ur Squamous Epith Cells Many per lpf (None-Few) H 02/06/17 08:31 Urine Opiates Screen Positive ng/mL (Xpdzil=138) H 02/05/17 21:05 Free Valproic Acid <7 ug/mL (7-23) L 02/01/17 20:30 Total Valproic Acid <7 ug/mL (50-125) L 02/01/17 20:30 U Benzodiazepines Scrn Positive ng/mL (Nffpbg=492) H 02/05/17 21:05 Hepatitis C Ab Screen Reactive (Nonreactive) H 02/04/17 12:19 - Clinical Findings Intake & Output: Intake & Output 02/06/17 02/07/17 02/07/17 23:59 07:59 15:59 Intake Total 2100 / 2100 2500 / 2500 2953 / 2953 Output Total 1275 / 1275 1300 / 1300 0 / 0 Balance 825 / 825 1200 / 1200 2953 / 2953 Weight 109.2 kg - Attending Attestation I examined this patient and my medical decision-making was reviewed with the POWERHOUSE MECHANIC SUPERVISOR/PA/Advanced Practice Nurse/Resident Physician. I agree with the documented findings, disposition and treatment plan as described except to the extent set forth below. Patient seen and examined. Labs, radiology, chart personally reviewed. Agree with resident's history and physical, assessment, plan with following comments: TEMPERATURE CONTROL INSPECTOR: Patient follows commands, but confused before intubation, Pulmonary: Patient had difficulty clearing her airways with respiratory distress and confusion with alcohol withdrawal which was difficult to manage the patient and he was not doing incentive spirometry for that reason we decided for intubation and this was explained to the patient and he agreed. Patient was successfully intubated with significant amount of secretion. Cardiovascular: Hemodynamically stable with supraventricular tachycardia and paroxysmal atrial fibrillation which was treated with low-dose Cardizem. Patient also has increased lactic acid with evidence of septic shock. The patient seen on fluid resuscitation as well as broad-spectrum antibiotic. Patient was started on Levophed as well. GI: Nutrition per dietary and GI prophylaxis per routine Heme: DVT prophylaxis per routine ID: Continue antibiotics and plan to de-escalation Renal; urine out put and renal funtion reviewed Endorcine: blood glucose is monitored Lines: all lines checked and no evidence of infections Skin: skin care to prevent pressure ulcers per nursing routine care I spent 40 min of Critical Care time with this patient. It involved decision making of high complexity to assess, manipulate, and support vital organ system failure and/or to prevent further life threatening deterioration of the patient' s condition. The time involved in the performance of separately reportable procedures was not counted toward critical care time.
--- NOTE | 2017-02-07 10:50 | Procedure Note ---
<Dinh Burkett - Last Filed: 02/07/17 12:27> Date of procedure: 02/07/17 Pre-op diagnosis: respiratory failure, sepsis Post-op diagnosis: same Procedure: Respiratory, nursing, and Dr. Lane were bedside. A time-out was completed verifying correct patient, procedure, positioning, and equipment. Prior to sedation, a difficult airway was expected; patient was adententulous, mallampatti of 4, and large circumference neck. The patient was placed in a supine position. Sedation and pain control were obtained using Fentanyl 100mcg IVP, Etomidate 20mg IVP, and profol 20mL. The patients was easily ventilated using an ambu bag using OPA. The Arnold scope with MAC 3 blade was used and inserted into the oropharynx. Pharynx was occluded by copious secretions which were suctioned. Patient was bag-mouth ventilated. A second attempt was made with the glidescope, chords visualized, and a 8.0-cambodian endotracheal tube was inserted and visualized going through the vocal cords. The stylette was removed. Colorimetric change was visualized on the CO2 meter. Breath sounds were heard in both lung krishna equally and not heard in the epigastrum. The endotracheal tube was placed at 24 cm, measured at the lips. Patient's pulse ox remained above 90% at all times during the procedure. Dr. Lane was present for the entire procedure. A chest x-ray was ordered: ET tube placement confirmed 3.8cm cephalad to the fatou, no pneumothorax. Estimated Blood Loss: 0mL The patient tolerated the procedure well and there were no complications. Post-intubation sedation with Precedex IV titrate. Post-intubation pain confrol with fentanyl IV titrate. Anesthesia: MAC Surgeon: Dinh Burkett Estimated blood loss (cc): 0 IV fluids (cc): 0 Urine output (cc): 0 Pathology: none sent Condition: stable Disposition: ICU <Ellie Lane - Last Filed: 02/07/17 12:42> Procedure: I have personally supervised the resident placing ET tube without immediate complications
[2017-02-07] MEDS: FentaNYL (PF) 1,000 MCG in 0.9 % Sodium Chloride 80 ML IVC SCH (11:33)
[2017-02-07] MEDS ORDERED: Magnesium Sulfate 2 GM in D5% in Water 100 ML IVPB PRN (12:58)
[2017-02-07] MEDS ORDERED: Calcium Gluconate 1,000 MG in D5% in Water 100 ML IVPB PRN (12:58)
[2017-02-07] MEDS ORDERED: Sodium Phosphate 30 MMOL in D5% in Water 100 ML IVPB PRN (12:58)
[2017-02-07] MEDS: Phenylephrine 50 MG in D5% in Water 250 ML IVC SCH (13:54)
[2017-02-07 14:45] LABS: Ionized Calcium 1.07 mmol/L (1.15-1.35); Magnesium 1.7 mg/dL (1.6-2.6); Phosphorous 1.5 mg/dL (2.3-4.7); Potassium 3.2 mEq/L (3.5-4.5)
[2017-02-07] MEDS: Potassium Chloride 40 MEQ/200 ML BAG IVPB PRN (16:00)
[2017-02-07] MEDS ORDERED: Ringers Solution, Lactated 1,000 ML IVC ONE (16:05)
[2017-02-07] MEDS: *HR* Metoprolol 5 MG/5 ML VIAL IVP PRN (21:06)
[2017-02-07] MEDS: Divalproex (24 HR) 250 MG TABLET PO SCH (22:30)
[2017-02-08 00:16] LABS: Ionized Calcium 1.1 mmol/L (1.15-1.35)
[2017-02-08 00:25] LABS: Magnesium 2.1 mg/dL (1.6-2.6); Phosphorous 2.2 mg/dL (2.3-4.7); Potassium 3.9 mEq/L (3.5-4.5)
[2017-02-08] MEDS: Ringers Solution, Lactated 1,000 ML IVC SCH ×4 (01:26→19:33)
[2017-02-08] MEDS: FentaNYL (PF) 1,000 MCG in 0.9 % Sodium Chloride 80 ML IVC SCH ×2 (01:33→13:11)
[2017-02-08] MEDS: Dexmedetomidine HCl 400 MCG/100 ML MLS IVC SCH ×3 (02:57→17:45)
[2017-02-08] MEDS: Acetaminophen 650 MG RECTAL SUPP RC PRN (03:17)
[2017-02-08] MEDS: Ipratropium/Albuterol Neb 3 ML IH SCH ×4 (03:45→21:20)
[2017-02-08 04:31] LABS: ABG Base Excess -2.9 mEq/L (-2.0 to 3.0); ABG HCO3 20.2 mEQ/L (21-27); ABG Oxygen Saturation 92 % (95-98); ABG PCO2 29 mmHg (35-45); ABG PH 7.45 pH Units (7.32-7.45); ABG PO2 60 mmHg (85-104); ABG TCO2 21.1 mEq/L (20-26)
[2017-02-08 04:33] LABS: Blood Gas FiO2 30 %
[2017-02-08] MEDS: *HR* Enoxaparin 40 MG/0.4 ML SYRINGE SQ SCH (06:32)
[2017-02-08] MEDS: MethylPREDNISolone 40 MG/ML VIAL IVP SCH (08:19)
[2017-02-08] MEDS: Pantoprazole 40 MG VIAL IVP SCH (08:19)
[2017-02-08] MEDS: amLODIPine 5 MG TABLET PO SCH (08:19)
[2017-02-08] MEDS: Thiamine (B-1) 100 MG TABLET PO SCH (08:19)
[2017-02-08] MEDS: Nicotine 21 MG PATCH.TD24 TD SCH (08:22)
[2017-02-08] MEDS: Piperacillin/Tazobactam 3.375 GM in D5% in Water (Mini-Bag+) 100 ML IVPB SCH ×2 (08:23→15:45)
[2017-02-08] MEDS: Bisacodyl 10 MG RECTAL SUPPOSITORY RC SCH (08:26)
[2017-02-08] MEDS ORDERED: GuaiFENesin Liq 200 MG/10 ML UDC GTUBE PRN (08:47)
[2017-02-08 08:59] LABS: Hematocrit 32.8 % (37.5-50.1); Hemoglobin 10.3 g/dL (12.9-16.9); Immature Platelets 10.9 % (1.1-6.1); Mean Corpuscular HGB Conc 31.4 g/dL (31.6-35.5); Mean Corpuscular Hemoglobin 26.5 pg (28.0-33.3); Mean Corpuscular Volume 84.3 fL (83.0-100.0); Nucleated Red Blood Cells 0.7 /100 WBC (0); Red Blood Count 3.89 M/mcL (4.19-5.50); Red Cell Distribution Width 20.1 % (11.5-14.5)
[2017-02-08 09:00] LABS: Platelet Count 72 K/mcL (140-400)
[2017-02-08 09:11] LABS: BUN/Creatinine Ratio 24 (6-26); Blood Urea Nitrogen 20 mg/dL (8-26); Calcium 8.7 mg/dL (8.6-10.8); Carbon Dioxide 17 mEq/L (19-29); Chloride 109 mEq/L (98-109); Glucose 128 mg/dL (70-99); Osmolality,Calculated 288 (280-300); Sodium 137 mEq/L (136-145); eGFR For African Americans > 60 (> 60); eGFR For Non-African Americans > 60 (> 60)
[2017-02-08] MEDS: Budesonide/Formoterol 160/4.5 MDI IH SCH ×2 (09:29→21:20)
--- NOTE | 2017-02-08 09:41 | Pulmonology Progress Note ---
<Ellie Lane M - Last Filed: 02/08/17 10:08> Date of Encounter: 02/08/17 Objective PUL Vital signs: Last Vital Signs Temp 99.6 F 02/08/17 07:10 Pulse 85 02/08/17 09:00 Resp 26 02/08/17 09:29 BP 125/84 02/08/17 09:29 Pulse Ox 94 02/08/17 09:29 Ventilator Settings Ventilator Settings: Ventilator Settings, Last 8 Hours Ventilator Mode CPAP Ventilator Mode CPAP Ventilator Mode CPAP Ventilator Mode CPAP Ventilator Mode VC+ Ventilator Mode VC+ Ventilator Mode VC+ Ventilator Mode VC+ Ventilator Mode VC+ Ventilator Mode VC+ Ventilator Mode VC+ Ventilator Tidal Volume 550 Setting Ventilator Tidal Volume 550 Setting Ventilator Tidal Volume 550 Setting Ventilator Tidal Volume 550 Setting Ventilator Tidal Volume 550 Setting Ventilator Tidal Volume 550 Setting Ventilator Tidal Volume 550 Setting Ventilator Respiratory Rate 12 Setting Ventilator Respiratory Rate 12 Setting Ventilator Respiratory Rate 12 Setting Ventilator Respiratory Rate 12 Setting Ventilator Respiratory Rate 12 Setting Ventilator Respiratory Rate 12 Setting Ventilator Respiratory Rate 12 Setting Actual Respiratory Rate 28 Actual Respiratory Rate 30 Actual Respiratory Rate 22 Actual Respiratory Rate 22 Actual Respiratory Rate 20 Actual Respiratory Rate 22 Actual Respiratory Rate 24 Actual Respiratory Rate 23 Actual Respiratory Rate 21 Positive End Expiratory 5 Pressure Positive End Expiratory 5 Pressure Positive End Expiratory 5 Pressure Positive End Expiratory 5 Pressure Positive End Expiratory 5 Pressure Positive End Expiratory 5 Pressure Positive End Expiratory 5 Pressure Positive End Expiratory 5 Pressure Positive End Expiratory 5 Pressure Positive End Expiratory 5 Pressure Positive End Expiratory 5 Pressure Peak Inspiratory Airway 17 Pressure Peak Inspiratory Airway 17 Pressure Peak Inspiratory Airway 17 Pressure Peak Inspiratory Airway 17 Pressure Peak Inspiratory Airway 14 Pressure Peak Inspiratory Airway 16 Pressure Peak Inspiratory Airway 16 Pressure Peak Inspiratory Airway 15 Pressure Peak Inspiratory Airway 17 Pressure Peak Inspiratory Airway 16 Pressure Results - Laboratory Findings CBC and BMP: 02/08/17 08:50 02/08/17 08:50 ABG ABG pH 7.45 pH Units (7.32-7.45) 02/08/17 04:23 ABG pCO2 29 mmHg (35-45) L 02/08/17 04:23 ABG pO2 60 mmHg (85-104) L 02/08/17 04:23 ABG O2 Saturation 92 % (95-98) L 02/08/17 04:23 PT/INR, D-dimer PT 11.2 Seconds (9.4-12.1) 02/01/17 19:13 Abnormal lab findings: Abnormal lab results RBC 3.89 M/mcL (4.19-5.50) L 02/08/17 08:50 Hgb 10.3 g/dL (12.9-16.9) L 02/08/17 08:50 Hct 32.8 % (37.5-50.1) L 02/08/17 08:50 MCH 26.5 pg (28.0-33.3) L 02/08/17 08:50 MCHC 31.4 g/dL (31.6-35.5) L 02/08/17 08:50 RDW 20.1 % (11.5-14.5) H 02/08/17 08:50 Plt Count 72 K/mcL (140-400) L 02/08/17 08:50 Immature Gran % 14.5 % (0-4) H 02/07/17 03:20 Lymphocytes # 0.4 K/mcL (0.6-4.6) L 02/07/17 03:20 Nucleated RBCs/100 WBC 0.7 /100 WBC (0) H 02/08/17 08:50 Platelet Estimate Marked Decrease (Normal) L 02/07/17 03:20 Immature Plt Fraction 10.9 % (1.1-6.1) H 02/08/17 08:50 Anisocytosis 2+ (Not Present) A 02/06/17 05:03 ABG pCO2 29 mmHg (35-45) L 02/08/17 04:23 ABG pO2 60 mmHg (85-104) L 02/08/17 04:23 ABG HCO3 20.2 mEQ/L (21-27) L 02/08/17 04:23 ABG O2 Saturation 92 % (95-98) L 02/08/17 04:23 ABG Base Excess -2.9 mEq/L (-2.0 to 3.0) L 02/08/17 04:23 VBG pH 7.56 pH Units (7.32-7.42) H 02/01/17 20:30 VBG pCO2 25 mmHg (41-51) L 02/01/17 20:30 VBG pO2 111 mmHg (25-40) H 02/01/17 20:30 Carbon Dioxide 17 mEq/L (19-29) L 02/08/17 08:50 Glucose 128 mg/dL (70-99) H 02/08/17 08:50 POC Glucose 153 (58-89) H 02/07/17 23:54 Lactic Acid 3.5 mmol/L (0.5-2.2) H 02/08/17 04:51 Ionized Calcium 1.10 mmol/L (1.15-1.35) L 02/08/17 00:00 Phosphorus 2.2 mg/dL (2.3-4.7) L 02/08/17 00:00 % Saturation 14 % (20-55) L 02/04/17 12:19 Direct Bilirubin 0.6 mg/dL (0.0-0.5) H 02/06/17 11:14 Albumin 2.9 g/dL (3.5-5.0) L D 02/06/17 11:14 Albumin/Globulin Ratio 0.8 (1.1-2.2) L 02/06/17 11:14 LDL Cholesterol, Calc 119 mg/dL (0-99) H 02/01/17 20:30 Lipase 5 Units/L (8-78) L 02/06/17 11:14 TSH 5.937 mcIU/mL (0.350-4.840) H 02/02/17 02:38 Free T3 3.73 pg/mL (1.71-3.71) H 02/03/17 13:25 Urine Clarity Cloudy (Clear) A 02/06/17 08:31 Urine Protein 30 mg/dL (Neg-Trace) H 02/06/17 08:31 Urine Ketones Trace mg/dL (Negative) H 02/06/17 08:31 Ur Squamous Epith Cells Many per lpf (None-Few) H 02/06/17 08:31 Urine Opiates Screen Positive ng/mL (Ahzdfe=468) H 02/05/17 21:05 Free Valproic Acid <7 ug/mL (7-23) L 02/01/17 20:30 Total Valproic Acid <7 ug/mL (50-125) L 02/01/17 20:30 U Benzodiazepines Scrn Positive ng/mL (Zhpncn=389) H 02/05/17 21:05 Hepatitis C Ab Screen Reactive (Nonreactive) H 02/04/17 12:19 - Microbiology Findings Microbiology Findings: Microbiology, Last 48 Hours 02/06/17 11:14 Blood Culture - Preliminary Peripheral Venipuncture No growth. - Clinical Findings Intake & Output: Intake & Output 02/07/17 02/08/17 02/08/17 23:59 07:59 15:59 Intake Total 2001 1275 / 1275 1065 / 1065 Output Total 1150 / 1150 750 / 750 Balance 852 / 852 525 / 525 1065 / 1065 Consult Discharge Plan - Plan Referrals: Emmanuel Gonzalez DO [Resident] - 02/24/17 2:00 pm - Attending Attestation I examined this patient and my medical decision-making was reviewed with the SYR[employer] M[employer]ER ASSISTANT/PA/Advanced Practice Nurse/Resident Physician. I agree with the documented findings, disposition and treatment plan as described except to the extent set forth below. Patient seen and examined. Labs, radiology, chart personally reviewed. Agree with resident's history and physical, assessment, plan with following comments: CAR HIKER: Patient does not follows commands, Pulmonary: Acceptable oxygenation and ventilation. Spontaneous breathing trial is done and he is tolerating it, however with mental status change as well as atrial fibrillation with rapid ventricular response which is paroxysmal , we will decide about extubation when he is more awake especially with alcohol withdrawal. Cardiovascular: Paroxysmal A. fib to be not Cardizem and started on oral Cardizem GI: Nutrition per dietary and GI prophylaxis per routine Heme: DVT prophylaxis per routine ID: Continue antibiotics and plan to de-escalation Renal; urine out put and renal funtion reviewed Endorcine: blood glucose is monitored Lines: all lines checked and no evidence of infections Skin: skin care to prevent pressure ulcers per nursing routine care <Dinh Burkett - Last Filed: 02/08/17 10:55> Date of Encounter: 02/08/17 Time of Encounter: 07:30 Assessment and Plan (1) Sepsis Current Visit: No Status: Acute 1. Sepsis SIRS (+) on ICU intake: fever, tachycardia, tachypnea Sepsis from pulmonary source: suspected aspiration pneumonia BP hypotensive with systolic 70's, only venous access was a 22ga in right UE. Unable to place powerwand. Received verbal and written consent for central line. Lactic acid 4.6 > 7.3 > 7.5 > 3.5 Patient was intubated yesterday, ABG 7.45/29/60/20.2. Labs: - CBC, BMP, lactic acid, ABG Sedation & pain control: - Precedex IV titrate - Fentanyl IV titrate Abx: - Vancomycin day 3 - Zosyn day 3 Fluids: - Maintenance IV fluids = LR @ 100mL/hr - Monitoring urine output Misc: - electrolyte protocol - restraints - DVT prophylaxis - Lovenox - PUD prophylaxis - protonix 2. Acute respiratory failure Likely secondary to aspiration pneumonia Patient failed bedside swallow study. - Consult to speech therapy 3. Atrial fibrillation Patient went into A. Fib yesterday. Now NSR with cardizem IV. - Wean cardizem IV - Begin cardizem PO 4. Encephalopathy An admission diagnosis; likely due to EtOH withdrawl at that time. Patient currently alert to self, situation, location, year, president. 5. Hx EtOH abuse Last drink was 01/30/17. Was in CIWA protocol while on medical floor. No DTs. - Ativan PRN 6. Hepatitis C Liver ultrasound 02/05/17: hepatosteatosis without cirrhosis. Liver enzymes mildly elevated on intake; likely chronic. 7. Pancreatic insufficiency Secondary to previous partial pancreatectomy. - CREON 8. Schizophrenia - continue home medications 9. 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 Sepsis SIRS (+) - fever, tachycardia, tachypnea Sepsis from pulmonary source - suspected aspiration pneumonia BP hypotensive with systolic 70's, only venous access was a 22ga in right UE. Unable to place powerwand. Received verbal and written consent for central line. Lactic acid 4.6. - Right IJ central line placed - Levophed titration - Hold antihypertensive medications - Vancomycin day 1 - Zosyn day 1 - Follow lactic acid - 2A sodium bicarb in 1L D5 0.45% NS - Switch NS fluids to LR. 2. Acute respiratory failure Likely secondary to aspiration pneumonia Patient failed bedside swallow study. - Consult to speech therapy 3. Encephalopathy An admission diagnosis; likely due to EtOH withdrawl at that time. Patient currently alert to self, situation, location, year, president. 4. Hx EtOH abuse Last drink was 01/30/17. Was in CIWA protocol while on medical floor. No DTs. - Ativan PRN 5. Hepatitis C Liver ultrasound 02/05/17: hepatosteatosis without cirrhosis. Liver enzymes mildly elevated on intake; likely chronic. 6. Pancreatic insufficiency Secondary to previous partial pancreatectomy. - CREON 7. Schizophrenia - continue home medications 8. BiPolar disorder - continue home medications Qualifiers: Respiratory failure complication: hypoxia Qualified Code(s): J96.01 - Acute respiratory failure with hypoxia (3) Atrial fibrillation Current Visit: Yes Status: Acute Qualifiers: Qualified Code(s): I48.0 - Paroxysmal atrial fibrillation (4) Encephalopathy Current Visit: No Status: Acute (5) History of alcohol abuse Current Visit: No Status: Chronic (6) Hepatitis C Current Visit: Yes Status: Acute Qualifiers: Viral hepatitis chronicity: chronic Qualified Code(s): B18.2 - Chronic viral hepatitis C (7) Pancreatic insufficiency Current Visit: No Status: Chronic (8) Schizophrenia Current Visit: No Status: Chronic Qualifiers: Schizophrenia type: unspecified Qualified Code(s): F20.9 - Schizophrenia, unspecified (9) Bipolar disorder, unspecified Current Visit: No Status: Chronic Qualifiers: Active/Remission status: currently active Current bipolar episode type: mixed Current episode severity: unspecified Qualified Code(s): F31.60 - Bipolar disorder, current episode mixed, unspecified Subjective Principal diagnosis: acute respiratory failure Interval history: Mr. Chen has stabilized. CPAP trial this morning without sedation - patient's RR intermittantly tachypneic without tachycardia. Sedation was off 3+ hrs this morning, he was attempting to exit the bed. He remains sedated and intubated after CPAP trial. Appears comfortable. No family at bedside. Objective PUL Vital signs: Last Vital Signs Temp 99.6 F 02/08/17 07:10 Pulse 88 02/08/17 06:00 Resp 26 02/08/17 09:29 BP 125/84 02/08/17 09:29 Pulse Ox 94 02/08/17 09:29 General appearance: no acute distress Eyes: nonicteric ENT: oropharynx moist Neck: supple Effort: normal Auscultation: right: diminished breath sounds (RLL), bilateral: wheezes Cardiovascular: regular rate and rhythm (rare intermittant short runs of A. Fib. ) Gastrointestinal: hypoactive bowel sounds, soft, non-tender, non-distended Integumentary: normal Extremities: no cyanosis, no edema, no clubbing, pink and warm, pulses normal Musculoskeletal: no deformities unable to assess due to mental status Ventilator Settings Ventilator Settings: Ventilator Settings, Last 8 Hours Ventilator Mode CPAP Ventilator Mode CPAP Ventilator Mode VC+ Ventilator Mode VC+ Ventilator Mode VC+ Ventilator Mode VC+ Ventilator Mode VC+ Ventilator Mode VC+ Ventilator Mode VC+ Ventilator Mode VC+ Ventilator Tidal Volume 550 Setting Ventilator Tidal Volume 550 Setting Ventilator Tidal Volume 550 Setting Ventilator Tidal Volume 550 Setting Ventilator Tidal Volume 550 Setting Ventilator Tidal Volume 550 Setting Ventilator Tidal Volume 550 Setting Ventilator Tidal Volume 550 Setting Ventilator Respiratory Rate 12 Setting Ventilator Respiratory Rate 12 Setting Ventilator Respiratory Rate 12 Setting Ventilator Respiratory Rate 12 Setting Ventilator Respiratory Rate 12 Setting Ventilator Respiratory Rate 12 Setting Ventilator Respiratory Rate 12 Setting Ventilator Respiratory Rate 12 Setting Actual Respiratory Rate 28 Actual Respiratory Rate 22 Actual Respiratory Rate 22 Actual Respiratory Rate 20 Actual Respiratory Rate 22 Actual Respiratory Rate 24 Actual Respiratory Rate 23 Actual Respiratory Rate 21 Actual Respiratory Rate 26 Positive End Expiratory 5 Pressure Positive End Expiratory 5 Pressure Positive End Expiratory 5 Pressure Positive End Expiratory 5 Pressure Positive End Expiratory 5 Pressure Positive End Expiratory 5 Pressure Positive End Expiratory 5 Pressure Positive End Expiratory 5 Pressure Positive End Expiratory 5 Pressure Positive End Expiratory 5 Pressure Peak Inspiratory Airway 17 Pressure Peak Inspiratory Airway 17 Pressure Peak Inspiratory Airway 14 Pressure Peak Inspiratory Airway 16 Pressure Peak Inspiratory Airway 16 Pressure Peak Inspiratory Airway 15 Pressure Peak Inspiratory Airway 17 Pressure Peak Inspiratory Airway 16 Pressure Peak Inspiratory Airway 19 Pressure Results - Laboratory Findings CBC and BMP: 02/08/17 08:50 02/08/17 08:50 ABG ABG pH 7.45 pH Units (7.32-7.45) 02/08/17 04:23 ABG pCO2 29 mmHg (35-45) L 02/08/17 04:23 ABG pO2 60 mmHg (85-104) L 02/08/17 04:23 ABG O2 Saturation 92 % (95-98) L 02/08/17 04:23 PT/INR, D-dimer PT 11.2 Seconds (9.4-12.1) 02/01/17 19:13 Abnormal lab findings: Abnormal lab results RBC 3.89 M/mcL (4.19-5.50) L 02/08/17 08:50 Hgb 10.3 g/dL (12.9-16.9) L 02/08/17 08:50 Hct 32.8 % (37.5-50.1) L 02/08/17 08:50 MCH 26.5 pg (28.0-33.3) L 02/08/17 08:50 MCHC 31.4 g/dL (31.6-35.5) L 02/08/17 08:50 RDW 20.1 % (11.5-14.5) H 02/08/17 08:50 Plt Count 72 K/mcL (140-400) L 02/08/17 08:50 Immature Gran % 14.5 % (0-4) H 02/07/17 03:20 Lymphocytes # 0.4 K/mcL (0.6-4.6) L 02/07/17 03:20 Nucleated RBCs/100 WBC 0.7 /100 WBC (0) H 02/08/17 08:50 Platelet Estimate Marked Decrease (Normal) L 02/07/17 03:20 Immature Plt Fraction 10.9 % (1.1-6.1) H 02/08/17 08:50 Anisocytosis 2+ (Not Present) A 02/06/17 05:03 ABG pCO2 29 mmHg (35-45) L 02/08/17 04:23 ABG pO2 60 mmHg (85-104) L 02/08/17 04:23 ABG HCO3 20.2 mEQ/L (21-27) L 02/08/17 04:23 ABG O2 Saturation 92 % (95-98) L 02/08/17 04:23 ABG Base Excess -2.9 mEq/L (-2.0 to 3.0) L 02/08/17 04:23 VBG pH 7.56 pH Units (7.32-7.42) H 02/01/17 20:30 VBG pCO2 25 mmHg (41-51) L 02/01/17 20:30 VBG pO2 111 mmHg (25-40) H 02/01/17 20:30 Carbon Dioxide 17 mEq/L (19-29) L 02/08/17 08:50 Glucose 128 mg/dL (70-99) H 02/08/17 08:50 POC Glucose 153 (58-89) H 02/07/17 23:54 Lactic Acid 3.5 mmol/L (0.5-2.2) H 02/08/17 04:51 Ionized Calcium 1.10 mmol/L (1.15-1.35) L 02/08/17 00:00 Phosphorus 2.2 mg/dL (2.3-4.7) L 02/08/17 00:00 % Saturation 14 % (20-55) L 02/04/17 12:19 Direct Bilirubin 0.6 mg/dL (0.0-0.5) H 02/06/17 11:14 Albumin 2.9 g/dL (3.5-5.0) L D 02/06/17 11:14 Albumin/Globulin Ratio 0.8 (1.1-2.2) L 02/06/17 11:14 LDL Cholesterol, Calc 119 mg/dL (0-99) H 02/01/17 20:30 Lipase 5 Units/L (8-78) L 02/06/17 11:14 TSH 5.937 mcIU/mL (0.350-4.840) H 02/02/17 02:38 Free T3 3.73 pg/mL (1.71-3.71) H 02/03/17 13:25 Urine Clarity Cloudy (Clear) A 02/06/17 08:31 Urine Protein 30 mg/dL (Neg-Trace) H 02/06/17 08:31 Urine Ketones Trace mg/dL (Negative) H 02/06/17 08:31 Ur Squamous Epith Cells Many per lpf (None-Few) H 02/06/17 08:31 Urine Opiates Screen Positive ng/mL (Taezcc=497) H 02/05/17 21:05 Free Valproic Acid <7 ug/mL (7-23) L 02/01/17 20:30 Total Valproic Acid <7 ug/mL (50-125) L 02/01/17 20:30 U Benzodiazepines Scrn Positive ng/mL (Aghkaw=924) H 02/05/17 21:05 Hepatitis C Ab Screen Reactive (Nonreactive) H 02/04/17 12:19 - Microbiology Findings Microbiology Findings: Microbiology, Last 48 Hours 02/06/17 11:14 Blood Culture - Preliminary Peripheral Venipuncture No growth. - Clinical Findings Intake & Output: Intake & Output 02/07/17 02/08/17 02/08/17 23:59 07:59 15:59 Intake Total 2001 1275 / 1275 1065 / 1065 Output Total 1150 / 1150 750 / 750 Balance 852 / 852 525 / 525 1065 / 1065 - VTE Documentation of Mechanical Device: Graduated compression elastic hosiery
[2017-02-08 10:10] LABS: Lymphocytes # 0.9 K/mcL (0.6-4.6); Monocytes # 0.6 K/mcL (0.0-1.3); Neutrophils # 8.7 K/mcL (1.6-8.9)
[2017-02-08 10:11] LABS: Platelet Estimate Slight Decrease (Normal)
[2017-02-08] MEDS: Phenylephrine 50 MG in D5% in Water 250 ML IVC SCH (13:00)
[2017-02-08] MEDS: Divalproex (24 HR) 250 MG TABLET PO SCH (20:04)
--- NOTE | 2017-02-08 20:18 | Electrocardiograph Report ---
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
[2017-02-09] MEDS: Dexmedetomidine HCl 400 MCG/100 ML MLS IVC SCH ×3 (00:07→08:23)
[2017-02-09] MEDS: FentaNYL (PF) 1,000 MCG in 0.9 % Sodium Chloride 80 ML IVC SCH ×2 (00:09→08:24)
[2017-02-09] MEDS: Piperacillin/Tazobactam 3.375 GM in D5% in Water (Mini-Bag+) 100 ML IVPB SCH ×3 (00:11→15:38)
[2017-02-09] MEDS: Ipratropium/Albuterol Neb 3 ML IH SCH ×4 (03:39→22:13)
[2017-02-09 04:49] LABS: BUN/Creatinine Ratio 27 (6-26); Blood Urea Nitrogen 23 mg/dL (8-26); Calcium 8.4 mg/dL (8.6-10.8); Carbon Dioxide 20 mEq/L (19-29); Chloride 108 mEq/L (98-109); Glucose 138 mg/dL (70-99); Osmolality,Calculated 288 (280-300); Potassium 3.6 mEq/L (3.5-4.5); Sodium 136 mEq/L (136-145); eGFR For African Americans > 60 (> 60); eGFR For Non-African Americans > 60 (> 60)
[2017-02-09 04:52] LABS: Potassium 3.6 mEq/L (3.5-4.5)
[2017-02-09 05:04] LABS: ABG Base Excess -2.4 mEq/L (-2.0 to 3.0); ABG HCO3 20.4 mEQ/L (21-27); ABG Oxygen Saturation 86 % (95-98); ABG PCO2 28 mmHg (35-45); ABG PH 7.47 pH Units (7.32-7.45); ABG PO2 48 mmHg (85-104); ABG TCO2 21.3 mEq/L (20-26); Blood Gas FiO2 30 %
[2017-02-09] MEDS: *HR* Enoxaparin 40 MG/0.4 ML SYRINGE SQ SCH (06:12)
[2017-02-09] MEDS: Ringers Solution, Lactated 1,000 ML IVC SCH (06:13)
[2017-02-09 07:48] LABS: Hematocrit 32.1 % (37.5-50.1); Hemoglobin 10.3 g/dL (12.9-16.9); Mean Corpuscular HGB Conc 32.1 g/dL (31.6-35.5); Mean Corpuscular Hemoglobin 26.3 pg (28.0-33.3); Mean Corpuscular Volume 82.1 fL (83.0-100.0); Mean Platelet Volume 10.8 fL (9.4-12.4); Platelet Count 115 K/mcL (140-400); Red Blood Count 3.91 M/mcL (4.19-5.50); Red Cell Distribution Width 20.1 % (11.5-14.5)
[2017-02-09] MEDS: Nicotine 21 MG PATCH.TD24 TD SCH (08:05)
[2017-02-09] MEDS: Thiamine (B-1) 100 MG TABLET PO SCH (08:05)
[2017-02-09] MEDS: amLODIPine 5 MG TABLET PO SCH (08:05)
[2017-02-09] MEDS: Bisacodyl 10 MG RECTAL SUPPOSITORY RC SCH (08:05)
[2017-02-09] MEDS: MethylPREDNISolone 40 MG/ML VIAL IVP SCH (08:06)
[2017-02-09] MEDS: Pantoprazole 40 MG VIAL IVP SCH (08:06)
[2017-02-09 08:30] LABS: BUN/Creatinine Ratio 17 (6-26); Blood Urea Nitrogen 19 mg/dL (8-26); Calcium 7.7 mg/dL (8.6-10.8); Carbon Dioxide 18 mEq/L (19-29); Chloride 107 mEq/L (98-109); Glucose 207 mg/dL (70-99); Osmolality,Calculated 292 (280-300); Sodium 137 mEq/L (136-145); eGFR For African Americans > 60 (> 60); eGFR For Non-African Americans > 60 (> 60)
--- NOTE | 2017-02-09 08:52 | Pulmonology Progress Note ---
Date of Encounter: 02/09/17 Time of Encounter: 07:30 Assessment and Plan (1) Sepsis Current Visit: No Status: Acute 1. Sepsis SIRS (+) on ICU intake: fever, tachycardia, tachypnea Sepsis from pulmonary source: suspected aspiration pneumonia Central line placed 02/07/17. Patient was intubated 02/07/17. Lactic acid 4.6 > 7.3 > 7.5 > 3.5 > 1.8 Patient appears mildly fluid overloaded. - CPAP trial, goal is extubation today. Sedation & pain control: - Precedex IV titrate - Fentanyl IV titrate Abx: - Vancomycin day 4 - Zosyn day 4 Fluids: - D/C maintenance fluids - IV Lasix IVP - Monitoring urine output Misc: - electrolyte protocol - restraints - DVT prophylaxis - Lovenox - PUD prophylaxis - protonix 2. Acute respiratory failure Likely secondary to aspiration pneumonia Patient failed bedside swallow study. - speech therapy recommended nectar thick 3. Atrial fibrillation Patient went into A. Fib yesterday. Now NSR with cardizem IV. - Continue cardizem PO 4. Encephalopathy An admission diagnosis; likely due to EtOH withdrawl at that time. 5. Hx EtOH abuse Last drink was 01/30/17. Was in CIWA protocol while on medical floor. No DTs. - Ativan 0.5mg PRN 6. Hepatitis C Liver ultrasound 02/05/17: hepatosteatosis without cirrhosis. Liver enzymes mildly elevated on intake; likely chronic. 7. Pancreatic insufficiency Secondary to previous partial pancreatectomy. - CREON 8. Schizophrenia - continue home medications 9. 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 Sepsis SIRS (+) - fever, tachycardia, tachypnea Sepsis from pulmonary source - suspected aspiration pneumonia BP hypotensive with systolic 70's, only venous access was a 22ga in right UE. Unable to place powerwand. Received verbal and written consent for central line. Lactic acid 4.6. - Right IJ central line placed - Levophed titration - Hold antihypertensive medications - Vancomycin day 1 - Zosyn day 1 - Follow lactic acid - 2A sodium bicarb in 1L D5 0.45% NS - Switch NS fluids to LR. 2. Acute respiratory failure Likely secondary to aspiration pneumonia Patient failed bedside swallow study. - Consult to speech therapy 3. Encephalopathy An admission diagnosis; likely due to EtOH withdrawl at that time. Patient currently alert to self, situation, location, year, president. 4. Hx EtOH abuse Last drink was 01/30/17. Was in CIWA protocol while on medical floor. No DTs. - Ativan PRN 5. Hepatitis C Liver ultrasound 02/05/17: hepatosteatosis without cirrhosis. Liver enzymes mildly elevated on intake; likely chronic. 6. Pancreatic insufficiency Secondary to previous partial pancreatectomy. - CREON 7. Schizophrenia - continue home medications 8. BiPolar disorder - continue home medications Qualifiers: Respiratory failure complication: hypoxia Qualified Code(s): J96.01 - Acute respiratory failure with hypoxia (3) Atrial fibrillation Current Visit: Yes Status: Acute Qualifiers: Qualified Code(s): I48.0 - Paroxysmal atrial fibrillation (4) Encephalopathy Current Visit: No Status: Acute (5) History of alcohol abuse Current Visit: No Status: Chronic (6) Hepatitis C Current Visit: Yes Status: Acute Qualifiers: Viral hepatitis chronicity: chronic Hepatic coma status: without hepatic coma Qualified Code(s): B18.2 - Chronic viral hepatitis C (7) Pancreatic insufficiency Current Visit: No Status: Chronic (8) Schizophrenia Current Visit: No Status: Chronic Qualifiers: Schizophrenia type: unspecified Qualified Code(s): F20.9 - Schizophrenia, unspecified (9) Bipolar disorder, unspecified Current Visit: No Status: Chronic Qualifiers: Active/Remission status: currently active Current bipolar episode type: mixed Current episode severity: unspecified Qualified Code(s): F31.60 - Bipolar disorder, current episode mixed, unspecified Subjective Principal diagnosis: acute respiratory failure Interval history: Mr. Chen continues to be stable; no events overnight. Appears comfortable. He remains sedated and intubated. CPAP trial this morning without sedation. No family at bedside. Objective PUL Vital signs: Last Vital Signs Temp 99.9 F H 02/09/17 07:39 Pulse 87 02/09/17 08:00 Resp 25 02/09/17 08:00 BP 134/86 02/09/17 08:00 Pulse Ox 93 02/09/17 08:00 General appearance: no acute distress, other (intubated sedated) Eyes: nonicteric ENT: oropharynx dry Neck: supple Effort: normal Auscultation: bilateral: diminished breath sounds, rales (mild bibasilar) Cardiovascular: regular rate and rhythm Gastrointestinal: normoactive bowel sounds, soft, non-tender, non-distended Integumentary: normal Extremities: no cyanosis, no clubbing, pink and warm, pulses normal, edema ( trace pedal edema, trace hand edema) Musculoskeletal: no deformities pupils equal and round, unable to assess due to mental status mood appropriate, affect normal Ventilator Settings Ventilator Settings: Ventilator Settings, Last 8 Hours Ventilator Mode VC+ Ventilator Mode VC+ Ventilator Mode VC+ Ventilator Mode VC+ Ventilator Mode VC+ Ventilator Mode VC+ Ventilator Mode VC+ Ventilator Mode VC+ Ventilator Mode VC+ Ventilator Mode VC+ Ventilator Mode VC+ Ventilator Tidal Volume 550 Setting Ventilator Tidal Volume 550 Setting Ventilator Tidal Volume 550 Setting Ventilator Tidal Volume 550 Setting Ventilator Tidal Volume 550 Setting Ventilator Tidal Volume 550 Setting Ventilator Tidal Volume 550 Setting Ventilator Tidal Volume 550 Setting Ventilator Tidal Volume 550 Setting Ventilator Tidal Volume 550 Setting Ventilator Tidal Volume 550 Setting Ventilator Respiratory Rate 12 Setting Ventilator Respiratory Rate 12 Setting Ventilator Respiratory Rate 12 Setting Ventilator Respiratory Rate 12 Setting Ventilator Respiratory Rate 12 Setting Ventilator Respiratory Rate 12 Setting Ventilator Respiratory Rate 12 Setting Ventilator Respiratory Rate 12 Setting Ventilator Respiratory Rate 12 Setting Ventilator Respiratory Rate 12 Setting Ventilator Respiratory Rate 12 Setting Actual Respiratory Rate 22 Actual Respiratory Rate 24 Actual Respiratory Rate 24 Actual Respiratory Rate 25 Actual Respiratory Rate 23 Actual Respiratory Rate 23 Actual Respiratory Rate 25 Actual Respiratory Rate 23 Actual Respiratory Rate 27 Actual Respiratory Rate 24 Positive End Expiratory 5 Pressure Positive End Expiratory 5 Pressure Positive End Expiratory 5 Pressure Positive End Expiratory 5 Pressure Positive End Expiratory 5 Pressure Positive End Expiratory 5 Pressure Positive End Expiratory 5 Pressure Positive End Expiratory 5 Pressure Positive End Expiratory 5 Pressure Positive End Expiratory 5 Pressure Positive End Expiratory 5 Pressure Peak Inspiratory Airway 15 Pressure Peak Inspiratory Airway 15 Pressure Peak Inspiratory Airway 16 Pressure Peak Inspiratory Airway 15 Pressure Peak Inspiratory Airway 24 Pressure Peak Inspiratory Airway 24 Pressure Peak Inspiratory Airway 17 Pressure Peak Inspiratory Airway 15 Pressure Peak Inspiratory Airway 17 Pressure Peak Inspiratory Airway 15 Pressure Results - Laboratory Findings CBC and BMP: 02/09/17 07:30 02/09/17 04:11 ABG ABG pH 7.47 pH Units (7.32-7.45) H 02/09/17 04:50 ABG pCO2 28 mmHg (35-45) L 02/09/17 04:50 ABG pO2 48 mmHg (85-104) L* 02/09/17 04:50 ABG O2 Saturation 86 % (95-98) L 02/09/17 04:50 PT/INR, D-dimer PT 11.2 Seconds (9.4-12.1) 02/01/17 19:13 Abnormal lab findings: Abnormal lab results WBC 11.9 K/mcL (4.3-11.1) H 02/09/17 07:30 RBC 3.91 M/mcL (4.19-5.50) L 02/09/17 07:30 Hgb 10.3 g/dL (12.9-16.9) L 02/09/17 07:30 Hct 32.1 % (37.5-50.1) L 02/09/17 07:30 MCV 82.1 fL (83.0-100.0) L 02/09/17 07:30 MCH 26.3 pg (28.0-33.3) L 02/09/17 07:30 RDW 20.1 % (11.5-14.5) H 02/09/17 07:30 Plt Count 115 K/mcL (140-400) L D 02/09/17 07:30 Immature Gran % 14.5 % (0-4) H 02/07/17 03:20 Nucleated RBCs/100 WBC 0.7 /100 WBC (0) H 02/08/17 08:50 Platelet Estimate Slight Decrease (Normal) L 02/08/17 08:50 Immature Plt Fraction 10.9 % (1.1-6.1) H 02/08/17 08:50 Anisocytosis 2+ (Not Present) A 02/06/17 05:03 ABG pH 7.47 pH Units (7.32-7.45) H 02/09/17 04:50 ABG pCO2 28 mmHg (35-45) L 02/09/17 04:50 ABG pO2 48 mmHg (85-104) L* 02/09/17 04:50 ABG HCO3 20.4 mEQ/L (21-27) L 02/09/17 04:50 ABG O2 Saturation 86 % (95-98) L 02/09/17 04:50 ABG Base Excess -2.4 mEq/L (-2.0 to 3.0) L 02/09/17 04:50 VBG pH 7.56 pH Units (7.32-7.42) H 02/01/17 20:30 VBG pCO2 25 mmHg (41-51) L 02/01/17 20:30 VBG pO2 111 mmHg (25-40) H 02/01/17 20:30 BUN/Creatinine Ratio 27 (6-26) H 02/09/17 04:11 Glucose 138 mg/dL (70-99) H 02/09/17 04:11 POC Glucose 127 (58-89) H 02/08/17 23:09 Calcium 8.4 mg/dL (8.6-10.8) L 02/09/17 04:11 Ionized Calcium 1.10 mmol/L (1.15-1.35) L 02/08/17 00:00 Phosphorus 2.0 mg/dL (2.3-4.7) L 02/09/17 04:11 % Saturation 14 % (20-55) L 02/04/17 12:19 Direct Bilirubin 0.6 mg/dL (0.0-0.5) H 02/06/17 11:14 Albumin 2.9 g/dL (3.5-5.0) L D 02/06/17 11:14 Albumin/Globulin Ratio 0.8 (1.1-2.2) L 02/06/17 11:14 LDL Cholesterol, Calc 119 mg/dL (0-99) H 02/01/17 20:30 Lipase 5 Units/L (8-78) L 02/06/17 11:14 TSH 5.937 mcIU/mL (0.350-4.840) H 02/02/17 02:38 Free T3 3.73 pg/mL (1.71-3.71) H 02/03/17 13:25 Urine Clarity Cloudy (Clear) A 02/06/17 08:31 Urine Protein 30 mg/dL (Neg-Trace) H 02/06/17 08:31 Urine Ketones Trace mg/dL (Negative) H 02/06/17 08:31 Ur Squamous Epith Cells Many per lpf (None-Few) H 02/06/17 08:31 Urine Opiates Screen Positive ng/mL (Azgwws=550) H 02/05/17 21:05 Free Valproic Acid <7 ug/mL (7-23) L 02/01/17 20:30 Total Valproic Acid <7 ug/mL (50-125) L 02/01/17 20:30 U Benzodiazepines Scrn Positive ng/mL (Ykohbq=094) H 02/05/17 21:05 Hepatitis C Ab Screen Reactive (Nonreactive) H 02/04/17 12:19 - Microbiology Findings Microbiology Findings: Microbiology, Last 48 Hours 02/06/17 11:14 Blood Culture - Preliminary Peripheral Venipuncture No growth. - Clinical Findings Intake & Output: Intake & Output 02/08/17 02/09/17 02/09/17 23:59 07:59 15:59 Intake Total 3083 / 3083 1442 / 1442 200 / 200 Output Total 1300 / 1300 2325 / 2325 Balance 1783 / 1783 -883 / -883 200 / 200 Weight 111.1 kg - VTE Documentation of Mechanical Device: Graduated compression elastic hosiery Consult Discharge Plan - Plan Referrals: Emmanuel Gonzalez DO [Resident] - 02/24/17 2:00 pm
[2017-02-09] MEDS ORDERED: Docusate Oral Soln 100 MG/10 ML UDC PO PRN (10:03)
[2017-02-09] MEDS: Budesonide/Formoterol 160/4.5 MDI IH SCH ×3 (11:03→22:13)
[2017-02-09] MEDS: Potassium Phosphate 44 MEQ in 0.9 % Sodium Chloride 250 ML IVPB PRN (11:25)
[2017-02-09] MEDS ORDERED: Ringers Solution, Lactated 1,000 ML IVC SCH (11:30)
[2017-02-09] MEDS: Potassium Chloride 40 MEQ/200 ML BAG IVPB PRN (11:31)
[2017-02-09] MEDS: Furosemide 40 MG/4 ML VIAL IVP SCH (12:37)
[2017-02-09] MEDS: SODIUM CHLORIDE 0.9% IVPB SCH ×2 (12:45→22:54)
[2017-02-09] MEDS: VALPROIC ACID IVPB SCH ×2 (12:45→22:54)
--- NOTE | 2017-02-09 12:45 | Event Note ---
Date of Encounter: 02/09/17 Time of Encounter: 08:00 Patient examined, chart and all data reviewed as well as recent imaging studies. The patient is currently intubated and requires low level ventilatory support. He did tolerate spontaneous breathing trial with low level pressure support ventilation modality although apparently did become agitated and hence the nursing staff escalated Precedex infusion as well as a fentanyl infusion. Examination reveals an obese male is orally intubated is responsive to simple questions and moves all extremities he is awake alert in no distress vitals reviewed. He is currently orally intubated. Auscultation of the chest reveals reduced breath sounds with rhonchi right greater than left. Cardiac exam regular rate and rhythm. Abdominal exam central obesity there is no obvious abdominal findings suggesting ascites. His extremities were warm to touch pulses are intact he does have mild edema. The neurologic exam is somewhat limited but the patient does not have focal deficits. Lasix chest imaging reviewed and notable for small right pleural effusion and atelectasis. There is no compelling imaging studies suggesting focal infiltrate. Current microbiological results reveal absence of any organismal growth. Given the patient's tolerance of breathing trial, he will undergo extubation. More likely acute respiratory failure with hypoxemia and this particular individual is likely due to alcohol related encephalopathy. There is also concern for possible aspiration event although there is no compelling evidence to support a diagnosis of pneumonia at this time. Antibiotics which have been provided empirically for treatment of possible pneumonia will be discontinued within the next 24 hours. Given the severity of input relatively output and clinical findings suggesting mild hypervolemia, Lasix will be provided. Urographic patient's home medications will be reviewed and reinstituted as possible particularly in light of the need for mood stabilization given the patient's history of psychiatric disorders. E Cordasco [phone]
[2017-02-09] MEDS: Phenylephrine 50 MG in D5% in Water 250 ML IVC SCH (13:18)
[2017-02-09] MEDS: *HR* Morphine 2 MG/ML SYRINGE IVP PRN ×2 (18:20→23:02)
[2017-02-09 20:28] LABS: Magnesium 1.6 mg/dL (1.6-2.6); Potassium 3.7 mEq/L (3.5-4.5)
[2017-02-09 23:30] LABS: Ionized Calcium 1.13 mmol/L (1.15-1.35)
[2017-02-09 23:33] LABS: Phosphorous 2.9 mg/dL (2.3-4.7)
[2017-02-09] MEDS: *HR* Metoprolol 5 MG/5 ML VIAL IVP PRN (23:52)
[2017-02-10] MEDS: Piperacillin/Tazobactam 3.375 GM in D5% in Water (Mini-Bag+) 100 ML IVPB SCH ×2 (00:09→08:51)
[2017-02-10] MEDS: Dexmedetomidine HCl 400 MCG/100 ML MLS IVC SCH ×4 (01:35→22:27)
[2017-02-10] MEDS: *HR* LORazepam 2 MG/ML VIAL IVP PRN (01:39)
[2017-02-10] MEDS ORDERED: *HR* Metoprolol 5 MG/5 ML VIAL IVP ONE (02:29)
[2017-02-10] MEDS: Ipratropium/Albuterol Neb 3 ML IH SCH ×5 (04:27→21:22)
[2017-02-10 04:39] LABS: Hematocrit 32.3 % (37.5-50.1); Hemoglobin 10.4 g/dL (12.9-16.9); Mean Corpuscular HGB Conc 32.2 g/dL (31.6-35.5); Mean Corpuscular Hemoglobin 26.5 pg (28.0-33.3); Mean Corpuscular Volume 82.2 fL (83.0-100.0); Nucleated Red Blood Cells 0.3 /100 WBC (0); Platelet Count 134 K/mcL (140-400); Red Blood Count 3.93 M/mcL (4.19-5.50); Red Cell Distribution Width 20.7 % (11.5-14.5)
[2017-02-10 04:53] LABS: Alanine Aminotransferase 26 Units/L (0-55); Albumin/Globulin Ratio 0.5 (1.1-2.2); Alkaline Phosphatase 61 Units/L (38-126); Aspartate Amino Transferase 28 Units/L (5-34); BUN/Creatinine Ratio 29 (6-26); Bilirubin,Total 0.5 mg/dL (0.2-1.2); Blood Urea Nitrogen 24 mg/dL (8-26); Calcium 8.6 mg/dL (8.6-10.8); Carbon Dioxide 22 mEq/L (19-29); Chloride 107 mEq/L (98-109); Globulin 4.4 g/dL (2.4-3.5); Glucose 123 mg/dL (70-99); Osmolality,Calculated 293 (280-300); Phosphorous 2.5 mg/dL (2.3-4.7); Potassium 3.6 mEq/L (3.5-4.5); Sodium 139 mEq/L (136-145); Total Protein 6.4 g/dL (6.0-8.3); eGFR For African Americans > 60 (> 60); eGFR For Non-African Americans > 60 (> 60)
[2017-02-10 05:42] LABS: Anisocytosis 2+ (Not Present); Lymphocytes # 1.4 K/mcL (0.6-4.6); Microcytosis Present (Not Present); Neutrophils # 8.2 K/mcL (1.6-8.9)
[2017-02-10 05:43] LABS: Dohle Bodies Present (Not Present); Platelet Estimate Slight Decrease (Normal); Toxic Granulation Present (Not Present)
[2017-02-10] MEDS: Potassium Chloride 40 MEQ/200 ML BAG IVPB PRN (05:52)
[2017-02-10] MEDS: *HR* Enoxaparin 40 MG/0.4 ML SYRINGE SQ SCH (05:54)
[2017-02-10] MEDS: Potassium Phosphate 44 MEQ in 0.9 % Sodium Chloride 250 ML IVPB PRN (08:15)
[2017-02-10] MEDS: MethylPREDNISolone 40 MG/ML VIAL IVP SCH (08:53)
[2017-02-10] MEDS: Pantoprazole 40 MG VIAL IVP SCH (08:53)
[2017-02-10] MEDS: Furosemide 40 MG/4 ML VIAL IVP SCH (08:53)
[2017-02-10] MEDS: *HR* Metoprolol 5 MG/5 ML VIAL IVP PRN ×2 (08:53→17:35)
[2017-02-10] MEDS: Nicotine 21 MG PATCH.TD24 TD SCH (08:53)
[2017-02-10] MEDS: Bisacodyl 10 MG RECTAL SUPPOSITORY RC SCH (08:54)
[2017-02-10] MEDS: SODIUM CHLORIDE 0.9% IVPB SCH (08:54)
[2017-02-10] MEDS: VALPROIC ACID IVPB SCH (08:54)
[2017-02-10] MEDS: Thiamine (B-1) 100 MG TABLET PO SCH (09:16)
[2017-02-10] MEDS: amLODIPine 5 MG TABLET PO SCH (09:16)
[2017-02-10] MEDS: Budesonide/Formoterol 160/4.5 MDI IH SCH ×2 (10:28→21:23)
--- NOTE | 2017-02-10 10:58 | Event Note ---
Date of Encounter: 02/10/17 Time of Encounter: 09:00 Patient examined, chart and all data reviewed. The patient was successfully extubated 02-09-17. The patient remains confused and is currently receiving a Precedex infusion for treatment of agitation. Overnight, the patient also developed atrial fibrillation with rapid ventricular response and was placed on Cardizem infusion. Overnight, the patient had a very robust response to daily Lasix administration. No acute new events were reported per discussion with the nursing staff otherwise. Examination reveals an obese male he is awake alert he does interact with caregivers foot is obviously confused reportedly has bouts of mild agitation. Vitals were reviewed. Head normocephalic eyes the pupils were reactive sclera clear. Oral pharyngeal exam normal mucosa no oral lesions. Neck exam supple there is no adenopathy a central line is noted. Chest exam note mild use of accessory respiratory muscles auscultation reveals reduced breath sounds and crackles bilaterally. Cardiac exam reveals a regular rate and rhythm. Abdominal exam is notable for central obesity, bowel sounds were noted throughout there is no tenderness to palpation. Extremities were warm to touch pulses are intact, mild lower extremity edema is present. Neurologic exam reveals no obvious focal deficits. The patient is oriented to person only. Impressions #1 acute respiratory failure with hypoxia, resolving with current medical therapies(the patient was successfully extubated 02-09-17)#2 mild pulmonary edema following aggressive fluid resuscitation for possible septic shock (etiology of sepsis was presumptive aspiration pneumonia although no verification of the same and patient has completed antibiotic therapy). #3 altered mental status (agitation perhaps mild delirium and note the patient does have an underlying psychiatric history, reinstitute, adjust home medications for the same plu8s Hx of ETOH abuse but clinically not actively withdrawing). Continue daily diuretic likely to be discontinued within the next 24 hours. Continue Cardizem but transitioned to enteral route and readdress the need for anticoagulation therapy if atrial fibrillation persists. Continue all other supportive medical measures. E Cordasco [phone]
[2017-02-10] MEDS: FentaNYL (PF) 1,000 MCG in 0.9 % Sodium Chloride 80 ML IVC SCH (11:50)
[2017-02-10] MEDS: Phenylephrine 50 MG in D5% in Water 250 ML IVC SCH (13:22)
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
[2017-02-10 18:09] LABS: Phosphorous 3.7 mg/dL (2.3-4.7); Potassium 3.6 mEq/L (3.5-4.5)
[2017-02-10] MEDS ORDERED: Divalproex (24 HR) 250 MG TABLET PO SCH (21:00)
[2017-02-11 02:07] LABS: Phosphorous 3.2 mg/dL (2.3-4.7); Potassium 3.8 mEq/L (3.5-4.5)
[2017-02-11] MEDS: Ipratropium/Albuterol Neb 3 ML IH SCH ×4 (03:59→23:54)
[2017-02-11] MEDS: *HR* Enoxaparin 40 MG/0.4 ML SYRINGE SQ SCH (05:40)
[2017-02-11] MEDS: Dexmedetomidine HCl 400 MCG/100 ML MLS IVC SCH (05:41)
[2017-02-11] MEDS: amLODIPine 5 MG TABLET PO SCH (07:21)
[2017-02-11] MEDS: Furosemide 40 MG/4 ML VIAL IVP SCH (07:21)
[2017-02-11] MEDS: Nicotine 21 MG PATCH.TD24 TD SCH (07:22)
[2017-02-11] MEDS: Thiamine (B-1) 100 MG TABLET PO SCH (07:22)
[2017-02-11] MEDS: Pantoprazole 40 MG VIAL IVP SCH (07:22)
[2017-02-11] MEDS: Bisacodyl 10 MG RECTAL SUPPOSITORY RC SCH (07:22)
[2017-02-11] MEDS ORDERED: dilTIAZem HCl 60 MG TABLET PO SCH (08:00)
[2017-02-11] MEDS: *HR* Metoprolol 5 MG/5 ML VIAL IVP PRN ×4 (08:30→20:24)
--- NOTE | 2017-02-11 09:17 | Event Note ---
Date of Encounter: 02/11/17 Time of Encounter: 09:13 Patient examined, chart and all data reviewed as well as recent imaging studies. Overnight, no acute issues were noted per discussion with nursing staff. Patient remains extubated requires low-flow supplemental oxygen to maintain adequate saturation values. Although he is awake and alert and is very difficult to understand his speech. Is able to follow commands however and is currently not agitated. Examination reveals an obese male he is awake and alert no distress vitals reviewed. Head examination unremarkable. Pupils were reactive normal and sclerotic clear. Neck exam is supple there is no jugular venous distention or adenopathy. Chest exam reveals reduced breath sounds with faint bibasilar crackles. Cardiac exam is notable for an irregular rate and rhythm (atrial fibrillation persists with variable ventricular response control). Abdomen is soft bowel sounds are noted throughout. Extremities reveal trace edema pulses are intact. Neurologically, no obvious focal deficits. His sensorium remains blunted and the patient's speech is quite difficult to understand. Infections acute respiratory failure with hypoxia, resolved. #2 sepsis possibly related to pneumonia although source uncertain, resolved and currently free of antibiotic therapy #3 atrial fibrillation with a controlled ventricular response (the patient is not a candidate for anticoagulation given liver disease cirrhosis propensity for bleeding as a result of the same and underlying psychiatric disease) #4 psychiatric disorder. The patient will be transitioned off Precedex infusion. So long as the patient' s clinical mental status and hemodynamic rhythm status remains stable, he may be transferred out of the intensive care unit later today. Medications will be adjusted to enhance atrial fibrillation ventricular response control. [facility] [place] [phone]
[2017-02-11] MEDS: Budesonide/Formoterol 160/4.5 MDI IH SCH ×2 (09:42→23:54)
[2017-02-11] MEDS: FentaNYL (PF) 1,000 MCG in 0.9 % Sodium Chloride 80 ML IVC SCH (10:26)
[2017-02-11] MEDS: *HR* LORazepam 2 MG/ML VIAL IVP PRN (10:56)
[2017-02-11] MEDS: *HR* Morphine 2 MG/ML SYRINGE IVP PRN ×3 (10:59→17:01)
--- NOTE | 2017-02-11 11:12 | Pulmonology Progress Note ---
Date of Encounter: 02/11/17 Time of Encounter: 07:15 Assessment and Plan (1) Sepsis Current Visit: No Status: Acute 1. Sepsis SIRS (+) on ICU intake: fever, tachycardia, tachypnea Sepsis from pulmonary source: suspected aspiration pneumonia Central line placed 02/07/17, removed 02/10/17. Powerwand placed 02/10/17. Intubated 02/07/17, extubated 02/09/17. Lactic acid 4.6 > 7.3 > 7.5 > 3.5 > 1.8 Resolved 02/09/17 Fluids: - IV Lasix IVP - Monitoring urine output and renal function 2. Acute respiratory failure Likely secondary to aspiration pneumonia Antibiotics discontinued - Continue Albuterol, Symbicort - speech therapy recommended nectar thick liq with texture of mechanically altered. - Transfer today to [facility] bed. - Consult PT/OT 3. Atrial fibrillation Patient poor candidate for anticoagulation given history of hepatic disease and psychiatric diagnoses. Non-compliance and fall risk are additional factors. - Start Lopressor 50mg PO BID - Increase to cardizem PO 60mg BID. - Discontinue cardizem drip. 4. Encephalopathy Underlying psychiatric history Hx EtOH abuse; clinically not actively withdrawing - Continue home medications 5. Hx EtOH abuse Last drink was 01/30/17. Was in CIWA protocol while on medical floor. No DTs. - Ativan 0.5mg PRN 6. Hepatitis C Liver ultrasound 02/05/17: hepatosteatosis without cirrhosis. Liver enzymes mildly elevated on intake; likely chronic. 7. Pancreatic insufficiency Secondary to previous partial pancreatectomy. - CREON 8. Schizophrenia - continue home medications 9. BiPolar disorder - continue home medications Other: - DVT prophylaxis - Lovenox - PUD prophylaxis - protonix Qualifiers: Sepsis type: sepsis due to unspecified organism Qualified Code(s): A41.9 - Sepsis, unspecified organism (2) Acute respiratory failure Current Visit: No Status: Acute 1. Sepsis SIRS (+) - fever, tachycardia, tachypnea Sepsis from pulmonary source - suspected aspiration pneumonia BP hypotensive with systolic 70's, only venous access was a 22ga in right UE. Unable to place powerwand. Received verbal and written consent for central line. Lactic acid 4.6. - Right IJ central line placed - Levophed titration - Hold antihypertensive medications - Vancomycin day 1 - Zosyn day 1 - Follow lactic acid - 2A sodium bicarb in 1L D5 0.45% NS - Switch NS fluids to LR. 2. Acute respiratory failure Likely secondary to aspiration pneumonia Patient failed bedside swallow study. - Consult to speech therapy 3. Encephalopathy An admission diagnosis; likely due to EtOH withdrawl at that time. Patient currently alert to self, situation, location, year, president. 4. Hx EtOH abuse Last drink was 01/30/17. Was in CIWA protocol while on medical floor. No DTs. - Ativan PRN 5. Hepatitis C Liver ultrasound 02/05/17: hepatosteatosis without cirrhosis. Liver enzymes mildly elevated on intake; likely chronic. 6. Pancreatic insufficiency Secondary to previous partial pancreatectomy. - CREON 7. Schizophrenia - continue home medications 8. BiPolar disorder - continue home medications Qualifiers: Respiratory failure complication: hypoxia Qualified Code(s): J96.01 - Acute respiratory failure with hypoxia (3) Atrial fibrillation Current Visit: Yes Status: Acute Qualifiers: Atrial fibrillation type: unspecified Qualified Code(s): I48.91 - Unspecified atrial fibrillation (4) Encephalopathy Current Visit: No Status: Acute (5) History of alcohol abuse Current Visit: No Status: Chronic (6) Hepatitis C Current Visit: Yes Status: Acute Qualifiers: Viral hepatitis chronicity: chronic Hepatic coma status: without hepatic coma Qualified Code(s): B18.2 - Chronic viral hepatitis C (7) Pancreatic insufficiency Current Visit: No Status: Chronic (8) Schizophrenia Current Visit: No Status: Chronic Qualifiers: Schizophrenia type: unspecified Qualified Code(s): F20.9 - Schizophrenia, unspecified (9) Bipolar disorder, unspecified Current Visit: No Status: Chronic Qualifiers: Active/Remission status: currently active Current bipolar episode type: mixed Current episode severity: unspecified Qualified Code(s): F31.60 - Bipolar disorder, current episode mixed, unspecified Subjective Principal diagnosis: acute respiratory failure Interval history: ICU day 6. Mr. Chen continues to be stable; no events overnight. He was extubated and remains on 4L supplemental O2. He is alert to self (Lauri Chen), date of (04/30/17), location ([facility]), year (2016) , and president (Gregory). I sympathized with his frustration over his diet. We discussed in detail his progress both systemically as well as his progression of swallowing as well as speech therapy's findings. He understood we are progressing him as quickly as he shows he is capable of progression. He is satisfied and will be cooperative with us in the interim. During my time with him, he becomes sad and cries; he live at home alone, has little to contact with his family, and his only friend and support is Devi who has visited him here in the ICU. Will call Devi and ask her to visit today. Earlier this morning, patient was not oriented; was oriented to self and birthday, location was [facility], year was 2009. Objective PUL Vital signs: Last Vital Signs Temp 96.9 F L 02/11/17 07:38 Pulse 145 02/11/17 10:00 Resp 20 02/11/17 10:00 BP 100/69 02/11/17 10:00 Pulse Ox 95 02/11/17 10:00 General appearance: no acute distress, alert ENT: oropharynx moist Neck: supple Effort: normal Auscultation: bilateral: diminished breath sounds Cardiovascular: irregular rhythm Gastrointestinal: normoactive bowel sounds, soft, non-tender, non-distended Integumentary: normal Extremities: no cyanosis, no edema, no clubbing, pink and warm, pulses normal, no ischemia or petechiae Musculoskeletal: no deformities normal mental status, pupils equal and round mood appropriate, other (Somnolent, speech difficult to understand) Results - Laboratory Findings CBC and BMP: 02/10/17 04:20 02/11/17 01:25 ABG ABG pH 7.47 pH Units (7.32-7.45) H 02/09/17 04:50 ABG pCO2 28 mmHg (35-45) L 02/09/17 04:50 ABG pO2 48 mmHg (85-104) L* 02/09/17 04:50 ABG O2 Saturation 86 % (95-98) L 02/09/17 04:50 PT/INR, D-dimer PT 11.2 Seconds (9.4-12.1) 02/01/17 19:13 Abnormal lab findings: Abnormal lab results RBC 3.93 M/mcL (4.19-5.50) L 02/10/17 04:20 Hgb 10.4 g/dL (12.9-16.9) L 02/10/17 04:20 Hct 32.3 % (37.5-50.1) L 02/10/17 04:20 MCV 82.2 fL (83.0-100.0) L 02/10/17 04:20 MCH 26.5 pg (28.0-33.3) L 02/10/17 04:20 RDW 20.7 % (11.5-14.5) H 02/10/17 04:20 Plt Count 134 K/mcL (140-400) L 02/10/17 04:20 Immature Gran % 14.5 % (0-4) H 02/07/17 03:20 Metamyelocytes % 2.0 % (0) H 02/10/17 04:20 Myelocytes % 2.0 % (0) H 02/10/17 04:20 Nucleated RBCs/100 WBC 0.3 /100 WBC (0) H 02/10/17 04:20 Toxic Granulation Present (Not Present) A 02/10/17 04:20 Dohle Bodies Present (Not Present) A 02/10/17 04:20 Platelet Estimate Slight Decrease (Normal) L 02/10/17 04:20 Immature Plt Fraction 10.9 % (1.1-6.1) H 02/08/17 08:50 Anisocytosis 2+ (Not Present) A 02/10/17 04:20 Microcytosis Present (Not Present) A 02/10/17 04:20 ABG pH 7.47 pH Units (7.32-7.45) H 02/09/17 04:50 ABG pCO2 28 mmHg (35-45) L 02/09/17 04:50 ABG pO2 48 mmHg (85-104) L* 02/09/17 04:50 ABG HCO3 20.4 mEQ/L (21-27) L 02/09/17 04:50 ABG O2 Saturation 86 % (95-98) L 02/09/17 04:50 ABG Base Excess -2.4 mEq/L (-2.0 to 3.0) L 02/09/17 04:50 VBG pH 7.56 pH Units (7.32-7.42) H 02/01/17 20:30 VBG pCO2 25 mmHg (41-51) L 02/01/17 20:30 VBG pO2 111 mmHg (25-40) H 02/01/17 20:30 BUN/Creatinine Ratio 29 (6-26) H 02/10/17 04:20 Glucose 123 mg/dL (70-99) H 02/10/17 04:20 POC Glucose 133 (58-89) H 02/10/17 06:10 Lactic Acid 2.5 mmol/L (0.5-2.2) H 02/10/17 04:20 % Saturation 14 % (20-55) L 02/04/17 12:19 Direct Bilirubin 0.6 mg/dL (0.0-0.5) H 02/06/17 11:14 Albumin 2.0 g/dL (3.5-5.0) L 02/10/17 04:20 Globulin 4.4 g/dL (2.4-3.5) H 02/10/17 04:20 Albumin/Globulin Ratio 0.5 (1.1-2.2) L 02/10/17 04:20 LDL Cholesterol, Calc 119 mg/dL (0-99) H 02/01/17 20:30 Lipase 5 Units/L (8-78) L 02/06/17 11:14 TSH 5.937 mcIU/mL (0.350-4.840) H 02/02/17 02:38 Free T3 3.73 pg/mL (1.71-3.71) H 02/03/17 13:25 Urine Clarity Cloudy (Clear) A 02/06/17 08:31 Urine Protein 30 mg/dL (Neg-Trace) H 02/06/17 08:31 Urine Ketones Trace mg/dL (Negative) H 02/06/17 08:31 Ur Squamous Epith Cells Many per lpf (None-Few) H 02/06/17 08:31 Urine Opiates Screen Positive ng/mL (Gleagq=757) H 02/05/17 21:05 Free Valproic Acid <7 ug/mL (7-23) L 02/01/17 20:30 Total Valproic Acid <7 ug/mL (50-125) L 02/01/17 20:30 U Benzodiazepines Scrn Positive ng/mL (Eefejj=911) H 02/05/17 21:05 Hepatitis C Ab Screen Reactive (Nonreactive) H 02/04/17 12:19 - Microbiology Findings Microbiology Findings: Microbiology, Last 48 Hours 02/06/17 07:41 Blood Culture - Preliminary Peripheral Venipuncture No growth. - Clinical Findings Intake & Output: Intake & Output 02/10/17 02/11/17 02/11/17 23:59 07:59 15:59 Intake Total 335 / 335 366 / 366 465 / 465 Output Total 375 / 375 400 / 400 1600 / 1600 Balance -40 / -40 -34 / -34 -1135 / -1135 Weight 102.648 kg - VTE Documentation of Mechanical Device: Graduated compression elastic hosiery Consult Discharge Plan - Plan Referrals: Emmanuel Gonzalez DO [Resident] - 02/24/17 2:00 pm
[2017-02-11] MEDS ORDERED: traZODone 50 MG TABLET PO SCH (11:30)
[2017-02-11] MEDS ORDERED: SUMAtriptan 6 MG/0.5 ML SQ PRN (11:51)
[2017-02-11] MEDS ORDERED: Potassium Chloride 40 MEQ/200 ML BAG IVPB PRN (11:51)
[2017-02-11] MEDS ORDERED: Docusate Oral Soln 100 MG/10 ML UDC PO PRN (11:51)
[2017-02-11] MEDS ORDERED: *HR* Promethazine 25 MG/ML VIAL IVP PRN (11:51)
[2017-02-11] MEDS ORDERED: Sodium Phosphate 30 MMOL in D5% in Water 100 ML IVPB PRN (11:51)
[2017-02-11] MEDS ORDERED: Ringers Solution, Lactated 1,000 ML IVC SCH (11:51)
[2017-02-11] MEDS ORDERED: Magnesium Sulfate 2 GM in D5% in Water 100 ML IVPB PRN (11:51)
[2017-02-11] MEDS ORDERED: Potassium Phosphate 44 MEQ in 0.9 % Sodium Chloride 250 ML IVPB PRN (11:51)
[2017-02-11] MEDS ORDERED: Naloxone 0.4 MG/ML INJ IVP PRN (11:51)
[2017-02-11] MEDS ORDERED: traZODone 50 MG TABLET PO STA (12:24)
[2017-02-11] MEDS ORDERED: PROMETHAZINE 50 MG/ML IVP PRN (13:41)
[2017-02-11] MEDS ORDERED: Promethazine 12.5 MG in 0.9 % Sodium Chloride 50 ML IVPB PRN (13:47)
[2017-02-11] MEDS ORDERED: *HR* Metoprolol 5 MG/5 ML VIAL IVP PRN (14:17)
--- NOTE | 2017-02-11 14:27 | Event Note ---
Date of Encounter: 02/11/17 Time of Encounter: 14:20 Mr. Chen was sitting on the bedside and notified nursing he wanted to go to a hospital in [place]. I spoke with him and he thought he was [place] the [place]. He asked to go to "[facility]." I informed him he was at [place] and he confirmed that is where he wishes to be. He has no recollection of being intubated despite having had this same conversation twice yesterday. We discussed the severity of his illness and again touched on his progression of diet. He asked for pain medication but did not remember receiving morphine 10 minutes earlier. He asked for his friend, Devi and does not recollect her visiting 2 days ago. Shortly thereafter, Devi entered the room and the patient did not recognize her. Patient's confusion appears to be waxing and waning as this AM he was oriented x3. No clinical indication of withdrawl. May consider imaging patient's brain. Patient already on electrolyte protocol and thiamine. No leukocytosis. Hepatic and renal function unremarkable. No hypoxia on monitor. Recent ABG did not show hypercapnea. Morphine unlikely a contributing factor as dose was 2mg IVP and patient is not opiate naive. Patient in A. Fib with rate in 160's. - Continue cardizem 60mg PO TID. - Increase lopressor from 50mg BID to 75mg BID - Begin Lopressor 5mg IV Q6hr PRN atrial fibrillation with rate > 120.
[2017-02-11] MEDS: *HR* HYDROcodone/Acet 5/325 mg TABLET PO PRN ×2 (14:31→20:23)
[2017-02-11] MEDS: Sucralfate 1 GM TABLET PO SCH (15:38)
[2017-02-11] MEDS: dilTIAZem HCl 60 MG TABLET PO SCH (15:38)
[2017-02-11] MEDS: Divalproex (24 HR) 250 MG TABLET PO SCH (20:22)
[2017-02-11] MEDS: traZODone 50 MG TABLET PO SCH (20:24)
[2017-02-12] MEDS: *HR* Morphine 2 MG/ML SYRINGE IVP PRN ×2 (00:14→08:41)
[2017-02-12] MEDS: *HR* HYDROcodone/Acet 5/325 mg TABLET PO PRN ×2 (00:14→12:16)
[2017-02-12] MEDS: dilTIAZem HCl 60 MG TABLET PO SCH ×3 (00:15→17:14)
[2017-02-12] MEDS: Ipratropium/Albuterol Neb 3 ML IH SCH ×4 (03:59→22:11)
[2017-02-12] MEDS: *HR* Enoxaparin 40 MG/0.4 ML SYRINGE SQ SCH (05:42)
[2017-02-12 05:46] LABS: BUN/Creatinine Ratio 37 (6-26); Blood Urea Nitrogen 33 mg/dL (8-26); Calcium 8.5 mg/dL (8.6-10.8); Carbon Dioxide 17 mEq/L (19-29); Chloride 115 mEq/L (98-109); Glucose 95 mg/dL (70-99); Osmolality,Calculated 303 (280-300); Potassium 4.6 mEq/L (3.5-4.5); Sodium 143 mEq/L (136-145); eGFR For African Americans > 60 (> 60); eGFR For Non-African Americans > 60 (> 60)
[2017-02-12 05:59] LABS: Hematocrit 38.1 % (37.5-50.1); Mean Corpuscular Hemoglobin 26.5 pg (28.0-33.3); Mean Corpuscular Volume 82.6 fL (83.0-100.0); Mean Platelet Volume 11.5 fL (9.4-12.4); Nucleated Red Blood Cells 0.1 /100 WBC (0); Platelet Count 173 K/mcL (140-400); Red Blood Count 4.61 M/mcL (4.19-5.50); Red Cell Distribution Width 22.1 % (11.5-14.5)
[2017-02-12 06:07] LABS: Hemoglobin 12.2 g/dL (12.9-16.9)
[2017-02-12 06:45] LABS: Lymphocytes # 3.1 K/mcL (0.6-4.6); Monocytes # 1.7 K/mcL (0.0-1.3); Neutrophils # 11.8 K/mcL (1.6-8.9); Platelet Estimate Normal (Normal); Toxic Granulation Present (Not Present)
[2017-02-12 06:46] LABS: Microcytosis Present (Not Present)
--- NOTE | 2017-02-12 07:46 | Pulmonology Progress Note ---
<Dinh Burkett Ming - Last Filed: 02/12/17 08:40> Date of Encounter: 02/12/17 Time of Encounter: 07:44 Assessment and Plan (1) Sepsis Current Visit: No Status: Acute 1. Sepsis SIRS (+) on ICU intake: fever, tachycardia, tachypnea Sepsis from pulmonary source: suspected aspiration pneumonia Central line placed 02/07/17, removed 02/10/17. Powerwand placed 02/10/17. Intubated 02/07/17, extubated 02/09/17. Lactic acid 4.6 > 7.3 > 7.5 > 3.5 > 1.8 Resolved 02/09/17 PT recommends placement to SNF for continued therapy. OT has recommended at-home devices. - Working with SW on placement. Fluids: - IV Lasix IVP - Monitoring urine output and renal function 2. Acute respiratory failure Likely secondary to aspiration pneumonia Antibiotics discontinued - Continue Albuterol, Symbicort - speech therapy recommended nectar thick liq with texture of mechanically altered. 3. Atrial fibrillation Patient poor candidate for anticoagulation given history of hepatic disease and psychiatric diagnoses. Non-compliance and fall risk are additional factors. - Lopressor 50mg PO BID - Cardizem PO 60mg BID - Lopressor 5mg IVP PRN tachydysarrhythmia 4. Encephalopathy Underlying psychiatric history Hx EtOH abuse; clinically not actively withdrawing - Continue home medications 5. Hx EtOH abuse Last drink was 01/30/17. Was in CIWA protocol while on medical floor. No DTs. - Ativan 0.5mg PRN 6. Hepatitis C Liver ultrasound 02/05/17: hepatosteatosis without cirrhosis. Liver enzymes mildly elevated on intake; likely chronic. 7. Pancreatic insufficiency Secondary to previous partial pancreatectomy. - CREON 8. Schizophrenia - continue home medications 9. BiPolar disorder - continue home medications Other: - DVT prophylaxis - Lovenox - PUD prophylaxis - protonix Qualifiers: Sepsis type: sepsis due to unspecified organism Qualified Code(s): A41.9 - Sepsis, unspecified organism (2) Acute respiratory failure Current Visit: No Status: Acute 1. Sepsis SIRS (+) - fever, tachycardia, tachypnea Sepsis from pulmonary source - suspected aspiration pneumonia BP hypotensive with systolic 70's, only venous access was a 22ga in right UE. Unable to place powerwand. Received verbal and written consent for central line. Lactic acid 4.6. - Right IJ central line placed - Levophed titration - Hold antihypertensive medications - Vancomycin day 1 - Zosyn day 1 - Follow lactic acid - 2A sodium bicarb in 1L D5 0.45% NS - Switch NS fluids to LR. 2. Acute respiratory failure Likely secondary to aspiration pneumonia Patient failed bedside swallow study. - Consult to speech therapy 3. Encephalopathy An admission diagnosis; likely due to EtOH withdrawl at that time. Patient currently alert to self, situation, location, year, president. 4. Hx EtOH abuse Last drink was 01/30/17. Was in CIWA protocol while on medical floor. No DTs. - Ativan PRN 5. Hepatitis C Liver ultrasound 02/05/17: hepatosteatosis without cirrhosis. Liver enzymes mildly elevated on intake; likely chronic. 6. Pancreatic insufficiency Secondary to previous partial pancreatectomy. - CREON 7. Schizophrenia - continue home medications 8. BiPolar disorder - continue home medications Qualifiers: Respiratory failure complication: hypoxia Qualified Code(s): J96.01 - Acute respiratory failure with hypoxia (3) Atrial fibrillation Current Visit: Yes Status: Acute Qualifiers: Atrial fibrillation type: unspecified Qualified Code(s): I48.91 - Unspecified atrial fibrillation (4) Encephalopathy Current Visit: No Status: Acute (5) History of alcohol abuse Current Visit: No Status: Chronic (6) Hepatitis C Current Visit: Yes Status: Acute Qualifiers: Viral hepatitis chronicity: chronic Hepatic coma status: without hepatic coma Qualified Code(s): B18.2 - Chronic viral hepatitis C (7) Pancreatic insufficiency Current Visit: No Status: Chronic (8) Schizophrenia Current Visit: No Status: Chronic Qualifiers: Schizophrenia type: unspecified Qualified Code(s): F20.9 - Schizophrenia, unspecified (9) Bipolar disorder, unspecified Current Visit: No Status: Chronic Qualifiers: Active/Remission status: currently active Current bipolar episode type: mixed Current episode severity: unspecified Qualified Code(s): F31.60 - Bipolar disorder, current episode mixed, unspecified Subjective Principal diagnosis: acute respiratory failure Interval history: ICU day 7. Patient transferred to step-down w/tele yesterday. Boarding in ICU due to bed availability. Mr. Chen continues to be stable; no events overnight. He was extubated and remains on 4L supplemental O2. Though alert and oriented yesterday morning, he was confused yesterday evening not knowing where he was, why he was here, or any of the previous conversations we have had regarding the same. This morning, he is again alert and oriented. Though he would prefer to go home , he agrees he is not safe to go home. After discussion, he agrees to go to SNF for further therapy. Discussed with nursing. [facility] Objective PUL Vital signs: Last Vital Signs Temp 96.4 F L 02/12/17 07:20 Pulse 86 02/12/17 06:00 Resp 20 02/12/17 06:00 BP 107/61 02/12/17 06:00 Pulse Ox 92 02/12/17 06:00 General appearance: no acute distress, alert Eyes: nonicteric ENT: oropharynx moist Effort: normal Auscultation: bilateral: diminished breath sounds, wheezes (mild) Cardiovascular: regular rate and rhythm Gastrointestinal: normoactive bowel sounds, soft, tender, non-distended Integumentary: normal Extremities: no cyanosis, no edema, no clubbing, pink and warm, pulses normal Musculoskeletal: no deformities pupils equal and round, other (unsure of patient's basline mentation. His thought process is clear, his speech is mumbled and difficult to understand.) mood appropriate, affect normal Results - Laboratory Findings CBC and BMP: 02/12/17 05:23 02/12/17 05:23 ABG ABG pH 7.47 pH Units (7.32-7.45) H 02/09/17 04:50 ABG pCO2 28 mmHg (35-45) L 02/09/17 04:50 ABG pO2 48 mmHg (85-104) L* 02/09/17 04:50 ABG O2 Saturation 86 % (95-98) L 02/09/17 04:50 PT/INR, D-dimer PT 11.2 Seconds (9.4-12.1) 02/01/17 19:13 Abnormal lab findings: Abnormal lab results WBC 17.4 K/mcL (4.3-11.1) H D 02/12/17 05:23 Hgb 12.2 g/dL (12.9-16.9) L D 02/12/17 05:23 MCV 82.6 fL (83.0-100.0) L 02/12/17 05:23 MCH 26.5 pg (28.0-33.3) L 02/12/17 05:23 RDW 22.1 % (11.5-14.5) H 02/12/17 05:23 Immature Gran % 14.5 % (0-4) H 02/07/17 03:20 Band Neutrophils % 12.0 % (0-4) H 02/12/17 05:23 Metamyelocytes % 2.0 % (0) H 02/10/17 04:20 Myelocytes % 2.0 % (0) H 02/10/17 04:20 Promyelocytes % 4.0 % (0) H 02/12/17 05:23 Neutrophils # 11.8 K/mcL (1.6-8.9) H 02/12/17 05:23 Monocytes # 1.7 K/mcL (0.0-1.3) H 02/12/17 05:23 Nucleated RBCs/100 WBC 0.1 /100 WBC (0) H 02/12/17 05:23 Toxic Granulation Present (Not Present) A 02/12/17 05:23 Dohle Bodies Present (Not Present) A 02/10/17 04:20 Immature Plt Fraction 10.9 % (1.1-6.1) H 02/08/17 08:50 Anisocytosis 2+ (Not Present) A 02/10/17 04:20 Microcytosis Present (Not Present) A 02/12/17 05:23 ABG pH 7.47 pH Units (7.32-7.45) H 02/09/17 04:50 ABG pCO2 28 mmHg (35-45) L 02/09/17 04:50 ABG pO2 48 mmHg (85-104) L* 02/09/17 04:50 ABG HCO3 20.4 mEQ/L (21-27) L 02/09/17 04:50 ABG O2 Saturation 86 % (95-98) L 02/09/17 04:50 ABG Base Excess -2.4 mEq/L (-2.0 to 3.0) L 02/09/17 04:50 VBG pH 7.56 pH Units (7.32-7.42) H 02/01/17 20:30 VBG pCO2 25 mmHg (41-51) L 02/01/17 20:30 VBG pO2 111 mmHg (25-40) H 02/01/17 20:30 Potassium 4.6 mEq/L (3.5-4.5) H 02/12/17 05:23 Chloride 115 mEq/L (98-109) H 02/12/17 05:23 Carbon Dioxide 17 mEq/L (19-29) L 02/12/17 05:23 BUN 33 mg/dL (8-26) H 02/12/17 05:23 BUN/Creatinine Ratio 37 (6-26) H 02/12/17 05:23 POC Glucose 133 (58-89) H 02/10/17 06:10 Calculated Osmolality 303 (280-300) H 02/12/17 05:23 Lactic Acid 2.5 mmol/L (0.5-2.2) H 02/10/17 04:20 Calcium 8.5 mg/dL (8.6-10.8) L 02/12/17 05:23 % Saturation 14 % (20-55) L 02/04/17 12:19 Direct Bilirubin 0.6 mg/dL (0.0-0.5) H 02/06/17 11:14 Albumin 2.0 g/dL (3.5-5.0) L 02/10/17 04:20 Globulin 4.4 g/dL (2.4-3.5) H 02/10/17 04:20 Albumin/Globulin Ratio 0.5 (1.1-2.2) L 02/10/17 04:20 LDL Cholesterol, Calc 119 mg/dL (0-99) H 02/01/17 20:30 Lipase 5 Units/L (8-78) L 02/06/17 11:14 TSH 5.937 mcIU/mL (0.350-4.840) H 02/02/17 02:38 Free T3 3.73 pg/mL (1.71-3.71) H 02/03/17 13:25 Urine Clarity Cloudy (Clear) A 02/06/17 08:31 Urine Protein 30 mg/dL (Neg-Trace) H 02/06/17 08:31 Urine Ketones Trace mg/dL (Negative) H 02/06/17 08:31 Ur Squamous Epith Cells Many per lpf (None-Few) H 02/06/17 08:31 Urine Opiates Screen Positive ng/mL (Mobhnh=755) H 02/05/17 21:05 Free Valproic Acid <7 ug/mL (7-23) L 02/01/17 20:30 Total Valproic Acid <7 ug/mL (50-125) L 02/01/17 20:30 U Benzodiazepines Scrn Positive ng/mL (Sbymev=817) H 02/05/17 21:05 Hepatitis C Ab Screen Reactive (Nonreactive) H 02/04/17 12:19 - Microbiology Findings Microbiology Findings: Microbiology, Last 48 Hours 02/06/17 07:41 Blood Culture - Final Peripheral Venipuncture No growth. 02/06/17 11:14 Blood Culture - Final Peripheral Venipuncture No growth. - Clinical Findings Intake & Output: Intake & Output 02/11/17 02/11/17 02/12/17 15:59 23:59 07:59 Intake Total 465 / 465 100 / 100 Output Total 2250 / 2250 800 / 800 Balance -1785 / -1785 -800 / -800 100 / 100 Weight 99.7 kg - VTE Documentation of Mechanical Device: Graduated compression elastic hosiery Consult Discharge Plan - Plan Referrals: Emmanuel Gonzalez DO [Resident] - 02/24/17 2:00 pm <Juanpablo Mcbride - Last Filed: 02/12/17 09:20> Date of Encounter: 02/12/17 Objective PUL Vital signs: Last Vital Signs Temp 96.4 F L 02/12/17 07:20 Pulse 90 02/12/17 08:30 Resp 23 02/12/17 08:30 BP 107/60 02/12/17 08:30 Pulse Ox 92 02/12/17 06:00 Results - Laboratory Findings CBC and BMP: 02/12/17 05:23 02/12/17 05:23 ABG ABG pH 7.47 pH Units (7.32-7.45) H 02/09/17 04:50 ABG pCO2 28 mmHg (35-45) L 02/09/17 04:50 ABG pO2 48 mmHg (85-104) L* 02/09/17 04:50 ABG O2 Saturation 86 % (95-98) L 02/09/17 04:50 PT/INR, D-dimer PT 11.2 Seconds (9.4-12.1) 02/01/17 19:13 Abnormal lab findings: Abnormal lab results WBC 17.4 K/mcL (4.3-11.1) H D 02/12/17 05:23 Hgb 12.2 g/dL (12.9-16.9) L D 02/12/17 05:23 MCV 82.6 fL (83.0-100.0) L 02/12/17 05:23 MCH 26.5 pg (28.0-33.3) L 02/12/17 05:23 RDW 22.1 % (11.5-14.5) H 02/12/17 05:23 Immature Gran % 14.5 % (0-4) H 02/07/17 03:20 Band Neutrophils % 12.0 % (0-4) H 02/12/17 05:23 Metamyelocytes % 2.0 % (0) H 02/10/17 04:20 Myelocytes % 2.0 % (0) H 02/10/17 04:20 Promyelocytes % 4.0 % (0) H 02/12/17 05:23 Neutrophils # 11.8 K/mcL (1.6-8.9) H 02/12/17 05:23 Monocytes # 1.7 K/mcL (0.0-1.3) H 02/12/17 05:23 Nucleated RBCs/100 WBC 0.1 /100 WBC (0) H 02/12/17 05:23 Toxic Granulation Present (Not Present) A 02/12/17 05:23 Dohle Bodies Present (Not Present) A 02/10/17 04:20 Immature Plt Fraction 10.9 % (1.1-6.1) H 02/08/17 08:50 Anisocytosis 2+ (Not Present) A 02/10/17 04:20 Microcytosis Present (Not Present) A 02/12/17 05:23 ABG pH 7.47 pH Units (7.32-7.45) H 02/09/17 04:50 ABG pCO2 28 mmHg (35-45) L 02/09/17 04:50 ABG pO2 48 mmHg (85-104) L* 02/09/17 04:50 ABG HCO3 20.4 mEQ/L (21-27) L 02/09/17 04:50 ABG O2 Saturation 86 % (95-98) L 02/09/17 04:50 ABG Base Excess -2.4 mEq/L (-2.0 to 3.0) L 02/09/17 04:50 VBG pH 7.56 pH Units (7.32-7.42) H 02/01/17 20:30 VBG pCO2 25 mmHg (41-51) L 02/01/17 20:30 VBG pO2 111 mmHg (25-40) H 02/01/17 20:30 Potassium 4.6 mEq/L (3.5-4.5) H 02/12/17 05:23 Chloride 115 mEq/L (98-109) H 02/12/17 05:23 Carbon Dioxide 17 mEq/L (19-29) L 02/12/17 05:23 BUN 33 mg/dL (8-26) H 02/12/17 05:23 BUN/Creatinine Ratio 37 (6-26) H 02/12/17 05:23 POC Glucose 133 (58-89) H 02/10/17 06:10 Calculated Osmolality 303 (280-300) H 02/12/17 05:23 Lactic Acid 2.5 mmol/L (0.5-2.2) H 02/10/17 04:20 Calcium 8.5 mg/dL (8.6-10.8) L 02/12/17 05:23 % Saturation 14 % (20-55) L 02/04/17 12:19 Direct Bilirubin 0.6 mg/dL (0.0-0.5) H 02/06/17 11:14 Albumin 2.0 g/dL (3.5-5.0) L 02/10/17 04:20 Globulin 4.4 g/dL (2.4-3.5) H 02/10/17 04:20 Albumin/Globulin Ratio 0.5 (1.1-2.2) L 02/10/17 04:20 LDL Cholesterol, Calc 119 mg/dL (0-99) H 02/01/17 20:30 Lipase 5 Units/L (8-78) L 02/06/17 11:14 TSH 5.937 mcIU/mL (0.350-4.840) H 02/02/17 02:38 Free T3 3.73 pg/mL (1.71-3.71) H 02/03/17 13:25 Urine Clarity Cloudy (Clear) A 02/06/17 08:31 Urine Protein 30 mg/dL (Neg-Trace) H 02/06/17 08:31 Urine Ketones Trace mg/dL (Negative) H 02/06/17 08:31 Ur Squamous Epith Cells Many per lpf (None-Few) H 02/06/17 08:31 Urine Opiates Screen Positive ng/mL (Ojgdis=781) H 02/05/17 21:05 Free Valproic Acid <7 ug/mL (7-23) L 02/01/17 20:30 Total Valproic Acid <7 ug/mL (50-125) L 02/01/17 20:30 U Benzodiazepines Scrn Positive ng/mL (Owtgrx=495) H 02/05/17 21:05 Hepatitis C Ab Screen Reactive (Nonreactive) H 02/04/17 12:19 - Microbiology Findings Microbiology Findings: Microbiology, Last 48 Hours 02/06/17 07:41 Blood Culture - Final Peripheral Venipuncture No growth. 02/06/17 11:14 Blood Culture - Final Peripheral Venipuncture No growth. - Clinical Findings Intake & Output: Intake & Output 02/11/17 02/12/17 02/12/17 23:59 07:59 15:59 Intake Total 100 / 100 240 / 240 Output Total 800 / 800 250 / 250 Balance -800 / -800 100 / 100 -10 / -10 Weight 99.7 kg
[2017-02-12] MEDS: amLODIPine 5 MG TABLET PO SCH (08:41)
[2017-02-12] MEDS: traZODone 50 MG TABLET PO SCH ×2 (08:42→22:43)
[2017-02-12] MEDS: Sucralfate 1 GM TABLET PO SCH ×3 (08:42→17:14)
[2017-02-12] MEDS: Thiamine (B-1) 100 MG TABLET PO SCH (08:44)
[2017-02-12] MEDS: Nicotine 21 MG PATCH.TD24 TD SCH (08:44)
[2017-02-12] MEDS: Budesonide/Formoterol 160/4.5 MDI IH SCH ×2 (10:29→22:11)
[2017-02-12] MEDS: Ibuprofen 600 MG TABLET PO PRN (17:14)
[2017-02-12] MEDS ORDERED: 0.9 % Sodium Chloride 1,000 ML IVC ONE (21:53)
[2017-02-12] MEDS ORDERED: Acetaminophen 325 MG TABLET PO ONE (21:57)
[2017-02-12] MEDS: Divalproex (24 HR) 250 MG TABLET PO SCH (22:36)
[2017-02-13] MEDS: dilTIAZem HCl 60 MG TABLET PO SCH ×3 (00:25→16:54)
[2017-02-13] MEDS: *HR* Morphine 2 MG/ML SYRINGE IVP PRN (00:38)
[2017-02-13 01:29] LABS: Hemoglobin 10.9 g/dL (12.9-16.9); Immature Platelets 5.2 % (1.1-6.1); Lymphocytes # 1.2 K/mcL (0.6-4.6); Mean Corpuscular HGB Conc 32.1 g/dL (31.6-35.5); Mean Corpuscular Hemoglobin 27.2 pg (28.0-33.3); Mean Corpuscular Volume 84.8 fL (83.0-100.0); Mean Platelet Volume 10.9 fL (9.4-12.4); Platelet Count 260 K/mcL (140-400); Red Blood Count 4.01 M/mcL (4.19-5.50); Red Cell Distribution Width 21.8 % (11.5-14.5)
[2017-02-13 01:40] LABS: BUN/Creatinine Ratio 34 (6-26); Blood Urea Nitrogen 32 mg/dL (8-26); Calcium 8.2 mg/dL (8.6-10.8); Carbon Dioxide 20 mEq/L (19-29); Chloride 113 mEq/L (98-109); Glucose 126 mg/dL (70-99); Magnesium 2.3 mg/dL (1.6-2.6); Osmolality,Calculated 304 (280-300); Phosphorous 3.6 mg/dL (2.3-4.7); Potassium 3.6 mEq/L (3.5-4.5); Sodium 143 mEq/L (136-145); eGFR For African Americans > 60 (> 60); eGFR For Non-African Americans > 60 (> 60)
[2017-02-13 02:20] LABS: Eosinophils # 0.3 K/mcL (0.0-0.6); Monocytes # 1.5 K/mcL (0.0-1.3)
[2017-02-13 02:22] LABS: Large Platelets Present (Not Present); Platelet Clumps Few (Not Present); Toxic Granulation Present (Not Present)
[2017-02-13] MEDS: Ipratropium/Albuterol Neb 3 ML IH SCH ×4 (03:46→22:40)
[2017-02-13] MEDS ORDERED: Nitroglycerin 0.4 MG TAB.SUBL SL PRN (04:27)
[2017-02-13] MEDS: *HR* Enoxaparin 40 MG/0.4 ML SYRINGE SQ SCH (06:26)
[2017-02-13] MEDS: *HR* HYDROcodone/Acet 5/325 mg TABLET PO PRN ×3 (08:30→22:07)
[2017-02-13] MEDS: Sucralfate 1 GM TABLET PO SCH ×3 (08:30→16:54)
[2017-02-13] MEDS: amLODIPine 5 MG TABLET PO SCH (08:31)
[2017-02-13] MEDS: Thiamine (B-1) 100 MG TABLET PO SCH (08:32)
[2017-02-13] MEDS: traZODone 50 MG TABLET PO SCH ×2 (08:32→23:09)
[2017-02-13] MEDS: Nicotine 21 MG PATCH.TD24 TD SCH (08:33)
[2017-02-13] MEDS: Budesonide/Formoterol 160/4.5 MDI IH SCH ×2 (11:41→22:40)
--- NOTE | 2017-02-13 15:46 | Internal Med Progress Note ---
Date of Encounter: 02/13/17 Time of Encounter: 15:44 - Assessment and plan (1) Alcohol abuse with alcohol-induced disorder Current Visit: Yes Status: Acute Assessment and plan: Alcohol withdrawal precautions. Continue with thiamine and folate. (2) COPD (chronic obstructive pulmonary disease) Current Visit: Yes Status: Acute Assessment and plan: I will continue with DuoNeb's and by mouth prednisone. Oxygen supplementation by nasal cannula to maintain saturation above 92%. Qualifiers: COPD type: COPD with acute exacerbation Qualified Code(s): J44.1 - Chronic obstructive pulmonary disease with (acute) exacerbation (3) Toxic metabolic encephalopathy Current Visit: Yes Status: Acute Assessment and plan: Avoid sedative medication. Frequent reorientation. Treat underlying medical disease. (4) Coronary artery disease Current Visit: Yes Status: Chronic Qualifiers: Coronary Disease-Associated Artery/Lesion type: creek artery Associated angina: with unspecified angina Qualified Code(s): I25.119 - Atherosclerotic heart disease of creek coronary artery with unspecified angina pectoris (5) Essential hypertension Current Visit: Yes Status: Chronic Assessment and plan: Continue with amlodipine and metoprolol. (6) Pancreatic insufficiency Current Visit: Yes Status: Chronic Assessment and plan: Continue Creon with meals. (7) DVT prophylaxis Current Visit: No Status: Acute Assessment and plan: Subcutaneous Lovenox (8) Elevated WBCs Current Visit: Yes Status: Acute Assessment and plan: He recently completed a treatment for pneumonia. I am concerned for empyema given his history of pleural effusion. I will obtain a CT scan of the chest without contrast to further delineate the nature of the effusion and evaluate for any possible complications such as lung abscess. Qualifiers: Leukocytosis type: bandemia Qualified Code(s): D72.825 - Bandemia - Subjective Interval history: Pt cannot provide history due to encephalopathy. Denies body pain, moans, sitting up in bed awake, not coherent - Constitutional Vitals: Temp Pulse Resp BP Pulse Ox 99.1 F 85 16 102/65 96 02/13/17 12:18 02/13/17 12:18 02/13/17 12:18 02/13/17 12:18 02/13/17 12:18 General appearance: Present: A&O X 1, disheveled, obese, severe distress ( moderate), answers questions appropriately. Absent: cooperative - Eye Eye exam: Present: PERRL, conjuntiva pink, sclera anicteric Pupils: Present: PERRL - Neck Neck exam general surgery: Present: supple, trachea midline. Absent: lymphadenopathy - Respiratory Respiratory exam: Present: rales (RLL crackles decreased breath sounds at bases) . Absent: accessory muscle use, rhonchi, wheezes - Cardiovascular Cardiovascular exam: Present: RRR, +S1, +S2. Absent: diastolic murmur, gallop, rubs, systolic murmur - GI/Abdominal GI/Abdominal exam: Present: normal bowel sounds, soft, no peritoneal signs. Absent: distended, tenderness - Extremities Exam Extremities exam: Present: warm, radial pulses palpable and symetrical. Absent : calf tenderness, cyanotic, pedal edema - Skin Skin exam: Present: dry, intact Internal Medicine: Result - Labs CBC & Chem 7: 02/13/17 00:35 02/13/17 00:35 Labs: Short CBC 02/13/17 Range/Units 00:35 WBC 15.0 H (4.3-11.1) K/mcL Hgb 10.9 L (12.9-16.9) g/dL Hct 34.0 L (37.5-50.1) % Plt Count 260 D (140-400) K/mcL Neutrophils # 12.0 H (1.6-8.9) K/mcL BMP 02/13/17 00:35 Sodium 143 Potassium 3.6 D Chloride 113 H Carbon Dioxide 20 BUN 32 H Creatinine 0.93 Glucose 126 H Calcium 8.2 L - ABG Interpretation ABG results: ABG ABG pH 7.47 pH Units (7.32-7.45) H 02/09/17 04:50 ABG pCO2 28 mmHg (35-45) L 02/09/17 04:50 ABG pO2 48 mmHg (85-104) L* 02/09/17 04:50 ABG O2 Saturation 86 % (95-98) L 02/09/17 04:50 PT/INR, D-dimer PT 11.2 Seconds (9.4-12.1) 02/01/17 19:13 - VTE Documentation of Mechanical Device: Graduated compression elastic hosiery Consult Discharge Plan - Plan Referrals: Emmanuel Gonzalez DO [Resident] - 02/24/17 2:00 pm
[2017-02-13 16:23] LABS: Bilirubin,Urine Negative (Negative); Blood,Urine Trace (Negative); Clarity,Urine Clear (Clear); Color,Urine Yellow (Yellow); Glucose,Urine (UA) Normal (Normal); Ketones,Urine Negative (Negative); Leukocyte Esterase,Urine Negative (Negative); Nitrite,Urine Negative (Negative); PH,Urine 6.5 pH Units (5.0-8.0); Protein,Urine 30 mg/dL (Neg-Trace); Specific Gravity,Urine 1.021 (1.010-1.025)
[2017-02-13 16:24] LABS: Bacteria,Urine None Seen per hpf (None-Few); Hyaline Casts,Urine None Seen per lpf (None-Few); WBC,Urine 0-3 per hpf (0-3)
[2017-02-13 16:40] LABS: Renal Epithelial Cells,Urine Few per hpf (None-Few); Squamous Epithelial Cell,Urine Few per lpf (None-Few)
[2017-02-13] MEDS: Divalproex (24 HR) 250 MG TABLET PO SCH (22:07)
[2017-02-14] MEDS: dilTIAZem HCl 60 MG TABLET PO SCH ×3 (00:22→18:05)
[2017-02-14] MEDS: Meropenem 1,000 MG in 0.9 % Sodium Chloride Mini Bag 100 ML IVPB SCH ×3 (00:25→15:58)
[2017-02-14] MEDS: Clindamycin 900 MG/50 ML 900 MG/50 ML IV.SOLN IVPB SCH ×2 (01:23→08:40)
[2017-02-14] MEDS: *HR* HYDROcodone/Acet 5/325 mg TABLET PO PRN ×2 (03:44→18:04)
[2017-02-14] MEDS: Ipratropium/Albuterol Neb 3 ML IH SCH ×4 (04:51→22:41)
[2017-02-14] MEDS: *HR* Enoxaparin 40 MG/0.4 ML SYRINGE SQ SCH (05:56)
[2017-02-14] MEDS: Lactobacillus 1 EACH CAP.SPRINK PO SCH ×2 (08:38→21:39)
[2017-02-14] MEDS: amLODIPine 5 MG TABLET PO SCH (08:38)
[2017-02-14] MEDS: Thiamine (B-1) 100 MG TABLET PO SCH (08:38)
[2017-02-14] MEDS: Sucralfate 1 GM TABLET PO SCH ×3 (08:38→18:04)
[2017-02-14] MEDS: traZODone 50 MG TABLET PO SCH ×2 (08:39→21:48)
[2017-02-14] MEDS: Nicotine 21 MG PATCH.TD24 TD SCH (08:40)
[2017-02-14 09:07] LABS: Hematocrit 34.3 % (37.5-50.1); Hemoglobin 10.9 g/dL (12.9-16.9); Mean Corpuscular HGB Conc 31.8 g/dL (31.6-35.5); Mean Corpuscular Hemoglobin 26.9 pg (28.0-33.3); Mean Corpuscular Volume 84.7 fL (83.0-100.0); Mean Platelet Volume 9.9 fL (9.4-12.4); Nucleated Red Blood Cells 0.2 /100 WBC (0); Platelet Count 313 K/mcL (140-400); Red Blood Count 4.05 M/mcL (4.19-5.50); Red Cell Distribution Width 21.4 % (11.5-14.5)
[2017-02-14 09:19] LABS: BUN/Creatinine Ratio 28 (6-26); Blood Urea Nitrogen 22 mg/dL (8-26); Calcium 9.1 mg/dL (8.6-10.8); Carbon Dioxide 21 mEq/L (19-29); Chloride 114 mEq/L (98-109); Glucose 99 mg/dL (70-99); Osmolality,Calculated 299 (280-300); Potassium 3.5 mEq/L (3.5-4.5); Sodium 143 mEq/L (136-145); eGFR For African Americans > 60 (> 60); eGFR For Non-African Americans > 60 (> 60)
[2017-02-14 09:46] LABS: Lymphocytes # 2.2 K/mcL (0.6-4.6); Neutrophils # 12.4 K/mcL (1.6-8.9)
[2017-02-14 09:47] LABS: Anisocytosis 2+ (Not Present); Toxic Granulation Present (Not Present)
[2017-02-14 09:50] LABS: Platelet Estimate Normal (Normal); Polychromasia 1+ (Not Present)
[2017-02-14] MEDS: Budesonide/Formoterol 160/4.5 MDI IH SCH ×2 (11:25→22:41)
[2017-02-14] MEDS ORDERED: *HR* FentaNYL (PF) 100 MCG/2 ML VIAL ONE (13:58)
[2017-02-14] MEDS ORDERED: *HR* FentaNYL (PF) 100 MCG/2 ML VIAL IVP ONE (15:29)
--- NOTE | 2017-02-14 15:36 | Procedure Note ---
Date of procedure: 02/14/17 Pre-op diagnosis: Parapneumonic pleural effusion Post-op diagnosis: same Procedure: The patient has developed a large right pleural effusion with altered radiographic and ultrasound findings suggesting loculation. This is likely parapneumonic effusion. Situation was reviewed with the patient but more importantly the patient's mother was called and she has agreed to chest tube placement. In total, the patient received 100 g of fentanyl to separate pushes. The right hemithorax was evaluated with ultrasound large complex effusion was noted the appropriate interspace was marked. Maximal sterile barrier technique was utilized. The pleural space was entered with a needle guidewire was placed through the needle dilation over the guidewire was subsequently performed. A 16 -Prydeinig tear-away trocar was introduced into the pleural space and through the trocar a 14-Prydeinig pigtail catheter was placed. The device was affixed to the skin obvious suture. The chest tube was attached to a collection chamber. The device was flushed several times, note minimal output from the chest tube. No obvious untoward events noted. A small volume of fluid was sent for microbiological analysis. A chest x-ray will be obtained. It is the intention to instill TPA through the chest tube enhance drainage of the pleural space.
[2017-02-14] MEDS: 0.9 % Sodium Chloride 1,000 ML IVC SCH (15:58)
--- NOTE | 2017-02-14 16:00 | Pulmonology Progress Note ---
Date of Encounter: 02/14/17 Time of Encounter: 02:45 Assessment and Plan (1) Pleural effusion Current Visit: Yes Status: Acute The large right pleural effusion given its configuration from CT scan likely represents a parapneumonic effusion. Ultrasound evaluation of the chest disclosed multiple tentacles and compartments. A small bore chest tube will be placed for provision of intrapleural lytics. Cardiothoracic surgery is been consulted and conceivably the patient may require decortication next week if he has an unfavorable response intrapleural lytics. In the meantime, the patient will be maintained on meropenem. The management was reviewed with the primary service the patient as well as the patient's mother Mrs. Josue via phone call conversation by myself. Code(s): J90 - Pleural effusion, not elsewhere classified SNOMED Code(s): 57173329 Subjective Principal diagnosis: acute respiratory failure Interval history: Patient was recently transferred out of the intensive care unit where he underwent treatment for hypoxemic respiratory failure and sepsis. Since his transition out of the intensive care unit, Mr. olvera is developed recurrent respiratory issues. Imaging study of the chest was obtained which revealed a large right pleural effusion which is seemingly loculated based on its configuration. Given the patient's clinical status, it is likely this represents a parapneumonic effusion and hence chest tube will be placed. The patient may also require surgical intervention for treatment of this parapneumonic process. The patient admits to breathlessness and mild chest discomfort. He notes a nonproductive cough. Objective PUL Vital signs: Last Vital Signs Temp 99.6 F 02/14/17 13:20 Pulse 81 02/14/17 13:20 Resp 16 02/14/17 15:44 BP 110/57 02/14/17 13:20 Pulse Ox 97 02/14/17 15:44 General appearance: no acute distress Eyes: nonicteric ENT: oropharynx moist Auscultation: right: diminished breath sounds Cardiovascular: regular rate and rhythm Gastrointestinal: normoactive bowel sounds Extremities: no cyanosis Musculoskeletal: no deformities normal mental status, non-focal exam Results - Laboratory Findings CBC and BMP: 02/14/17 09:00 02/14/17 09:00 ABG ABG pH 7.47 pH Units (7.32-7.45) H 02/09/17 04:50 ABG pCO2 28 mmHg (35-45) L 02/09/17 04:50 ABG pO2 48 mmHg (85-104) L* 02/09/17 04:50 ABG O2 Saturation 86 % (95-98) L 02/09/17 04:50 PT/INR, D-dimer PT 11.2 Seconds (9.4-12.1) 02/01/17 19:13 Abnormal lab findings: Abnormal lab results WBC 15.9 K/mcL (4.3-11.1) H 02/14/17 09:00 RBC 4.05 M/mcL (4.19-5.50) L 02/14/17 09:00 Hgb 10.9 g/dL (12.9-16.9) L 02/14/17 09:00 Hct 34.3 % (37.5-50.1) L 02/14/17 09:00 MCH 26.9 pg (28.0-33.3) L 02/14/17 09:00 RDW 21.4 % (11.5-14.5) H 02/14/17 09:00 Immature Gran % 14.5 % (0-4) H 02/07/17 03:20 Band Neutrophils % 8.0 % (0-4) H 02/14/17 09:00 Metamyelocytes % 2.0 % (0) H 02/14/17 09:00 Myelocytes % 2.0 % (0) H 02/10/17 04:20 Promyelocytes % 4.0 % (0) H 02/12/17 05:23 Neutrophils # 12.4 K/mcL (1.6-8.9) H 02/14/17 09:00 Nucleated RBCs/100 WBC 0.2 /100 WBC (0) H 02/14/17 09:00 Toxic Granulation Present (Not Present) A 02/14/17 09:00 Dohle Bodies Present (Not Present) A 02/10/17 04:20 Clumped Platelets Few (Not Present) A 02/13/17 00:35 Large Platelets Present (Not Present) A 02/13/17 00:35 Polychromasia 1+ (Not Present) A 02/14/17 09:00 Anisocytosis 2+ (Not Present) A 02/14/17 09:00 Microcytosis Present (Not Present) A 02/12/17 05:23 ABG pH 7.47 pH Units (7.32-7.45) H 02/09/17 04:50 ABG pCO2 28 mmHg (35-45) L 02/09/17 04:50 ABG pO2 48 mmHg (85-104) L* 02/09/17 04:50 ABG HCO3 20.4 mEQ/L (21-27) L 02/09/17 04:50 ABG O2 Saturation 86 % (95-98) L 02/09/17 04:50 ABG Base Excess -2.4 mEq/L (-2.0 to 3.0) L 02/09/17 04:50 VBG pH 7.56 pH Units (7.32-7.42) H 02/01/17 20:30 VBG pCO2 25 mmHg (41-51) L 02/01/17 20:30 VBG pO2 111 mmHg (25-40) H 02/01/17 20:30 Chloride 114 mEq/L (98-109) H 02/14/17 09:00 BUN/Creatinine Ratio 28 (6-26) H 02/14/17 09:00 POC Glucose 133 (58-89) H 02/10/17 06:10 % Saturation 14 % (20-55) L 02/04/17 12:19 Direct Bilirubin 0.6 mg/dL (0.0-0.5) H 02/06/17 11:14 Albumin 2.0 g/dL (3.5-5.0) L 02/10/17 04:20 Globulin 4.4 g/dL (2.4-3.5) H 02/10/17 04:20 Albumin/Globulin Ratio 0.5 (1.1-2.2) L 02/10/17 04:20 LDL Cholesterol, Calc 119 mg/dL (0-99) H 02/01/17 20:30 Lipase 5 Units/L (8-78) L 02/06/17 11:14 TSH 5.937 mcIU/mL (0.350-4.840) H 02/02/17 02:38 Free T3 3.73 pg/mL (1.71-3.71) H 02/03/17 13:25 Urine Protein 30 mg/dL (Neg-Trace) H 02/13/17 16:00 Urine Blood Trace (Negative) H 02/13/17 16:00 Urine Urobilinogen 2.0 mg/dL (Normal) H 02/13/17 16:00 Urine Microscopic RBC 5-15 per hpf (0-3) H 02/13/17 16:00 Urine Opiates Screen Positive ng/mL (Mtyqjy=031) H 02/05/17 21:05 Free Valproic Acid <7 ug/mL (7-23) L 02/01/17 20:30 Total Valproic Acid <7 ug/mL (50-125) L 02/01/17 20:30 U Benzodiazepines Scrn Positive ng/mL (Jltssc=781) H 02/05/17 21:05 Hepatitis C Ab Screen Reactive (Nonreactive) H 02/04/17 12:19 - Microbiology Findings Microbiology Findings: Microbiology, Last 48 Hours 02/13/17 00:35 Blood Culture - Preliminary Peripheral Venipuncture No growth. 02/13/17 00:37 Blood Culture - Preliminary Peripheral Venipuncture No growth. - Clinical Findings Intake & Output: Intake & Output 02/13/17 02/14/17 02/14/17 23:59 07:59 15:59 Intake Total 150 / 150 150 / 150 Output Total 350 / 350 675 / 675 200 / 200 Balance -350 / -350 -525 / -525 -50 / -50 - VTE Documentation of Mechanical Device: Graduated compression elastic hosiery Consult Discharge Plan - Plan Referrals: Emmanuel Gonzalez DO [Resident] - 02/24/17 2:00 pm
[2017-02-14 16:08] LABS: Amylase,Pleural Fluid 14 Units/L (No Ref Range); Glucose,Pleural Fluid 7 mg/dL (No Ref Range); LDH,Pleural Fluid 803 Units/L (No Ref Range); Total Protein,Pleural Fluid 1.6 g/dL (No Ref Range)
[2017-02-14 16:11] LABS: RBC,Pleural Fluid 0.346 M/mcL
[2017-02-14 16:13] LABS: Appearance of Pleural Fl Bloody (Clear)
--- NOTE | 2017-02-14 16:29 | Internal Med Progress Note ---
<Brenden Zuniga - Last Filed: 02/14/17 17:17> Date of Encounter: 02/14/17 Time of Encounter: 16:22 - Assessment and plan (1) Sepsis Current Visit: Yes Status: Acute Assessment and plan: Patient meets sepsis criteria with Leukocytosis with tachycardia. Source is Pulmonary. There are toxic granulations and bandemia. No organ disfunction. normal lactic acid. Currently he is hemodynamically stable. We were concerned about decompensation overnight. discussed the case with Dr. Mcbride and went ahead and placed a Chest tube. Initial Gram stain shows no bacteria and pH of fluid is 7.41 . However the effusion is loculated. We attempted to get the tube to drain more efficiently with saline flush. I believe the fluid was mixed with saline so the results should be interpreted skeptically. Patient developed this complex fluid collection with possible Air fluid levels and is now septic so I think that this is likely an empyema. We have consulted Dr. Adams. Ultimatley patient may need Decortication. I discussed with Dr. Mcbride and we will attampt TPA in order to help drain the effusion. Patient did have one day of Vancomycin and Zosyn in the ICU. He was started on Meropenem and clindamycin. Now day 2. I think that we can use a single agent here. Meropenem has good anaerobic and Gram negative coverage. We will discontinue the Clindamycin and use meropenem as a single agent. Blood cultures were sent. Follow up with cultures from pleural effusion. Order sputum cultures. currently the patient is hem hemodynamically. we will continue to monitor him very closely. (2) Parapneumonic effusion Current Visit: Yes Status: Acute Assessment and plan: as stated above. we do appreciatate the assistance of Pulmonology and CT surgery. (3) ETOH abuse Current Visit: Yes Status: Acute Assessment and plan: continue Librium and ciwa continue Thiamine. (4) COPD (chronic obstructive pulmonary disease) Current Visit: Yes Status: Acute Assessment and plan: Continue duonebs, (5) Pancreatic insufficiency Current Visit: Yes Status: Acute Assessment and plan: creon (6) Leukocytosis Current Visit: Yes Status: Acute (7) Bandemia Current Visit: Yes Status: Acute (8) Metabolic encephalopathy Current Visit: Yes Status: Acute Assessment and plan: Likely from a combination of Sepsis and ETOH abuse. (9) Hypoalbuminemia Current Visit: Yes Status: Acute (10) DVT prophylaxis Current Visit: Yes Status: Acute Assessment and plan: SQ lovenox (11) Anemia Current Visit: Yes Status: Acute Assessment and plan: iron deficiency anemia. trending down some. Likely from Iv fluids and repeated lab draws. continue to follow Iron supplementation - Subjective Interval history: Mr Olvera who is currently on his 13th day of hospital admission. He was a initially admitted for alcohol withdrawal as well as some abdominal pain. He would undergo EGD which found reflux esophagitis otherwise was normal. His hospitalization has been complicated thus far by aspiration and respiratory failure. He would also have the stay in the intensive care unit requiring ventilatory support. He was intubated on 02/07/2017 and was extubated 2016. He was moved to the general medicine floor on February 12. During the ICU admission he was placed on vancomycin and Zosyn. However these were discontinued as the patient was stable at that time and was afebrile. However the patient has developed leukocytosis and fever. He would undergo a CT scan of the chest which would show what appear to be parapneumonic effusion with complex fluid and possible air-fluid level representing a possible empyema or lung abscess. I did discuss the case with our cook fry Dr. Mcbride. He felt that the patient would probably require a chest tube possibly with intrapleural TPA. He did suggest that we consult cardiothoracic surgery. I did discuss the case with Dr. Adams our cardiothoracic surgeon distribution warehouse manager. He is stated that the patient may need to undergo a decortication. However he stated that he was currently unable to put a chest tube in the patient as he had other critical patients. And suggested possibly pulmonology for interventional radiology if the patient were to just need a chest tube. I discussed the case again with and we have placed place a chest tube. The patient also appeared to be septic on today's exam so he was also transferred to the 2 N. unit. Today Mr. olvera is quite confused. He is orientated only to self. As such she is a poor historian. He does complain of right-sided pleuritic chest pain. He also complains of being sick and unwell. However he is unable to give much further information. The patient's mother was phoned and updated. She also gave consent for chest tube insertion. - Constitutional Vitals: Temp Pulse Resp BP Pulse Ox 98.7 F 88 20 115/66 100 02/14/17 15:56 02/14/17 16:13 02/14/17 15:56 02/14/17 15:56 02/14/17 16:13 Exam: General: This is a well-developed well-nourished 61-year-old male. He is currently alert but oriented only to self. He is lying in bed is somewhat of a toxic appearance. He appears diaphoretic. He is in moderate distress at this time. HEENT: The head is cephalic and atraumatic. Pupils equally round react light and accommodation anicteric sclera, normal external appearance of ears nose and eyes. Moist mucous membranes. Very poor dentition. Trachea is midline. No cervical or submandibular lymphadenopathy palpable. Heart: Regular rate and rhythm without murmurs rubs or gallops. Lungs: He has increased effort of breathing. Does have some mild accessory muscles in use. He is somewhat tachypnea. Upon auscultation he is quite diminished in the right lower lung krishna. Also has some mild audible crepitus bilaterally at the lung bases. Abdomen: Multiple surgical scars present. Abdomen is obese, nondistended, bowel sounds positive all quadrants. Nontender to palpation. Musculoskeletal: Grossly normal for age no gross deformities noted. Extremities: No clubbing or cyanosis. He does have mild pedal edema bilaterally. Integument: No rashes or lesions. Internal Medicine: Result - Labs CBC & Chem 7: 02/14/17 09:00 02/14/17 09:00 Labs: Short CBC 02/14/17 Range/Units 09:00 WBC 15.9 H (4.3-11.1) K/mcL Hgb 10.9 L (12.9-16.9) g/dL Hct 34.3 L (37.5-50.1) % Plt Count 313 (140-400) K/mcL Neutrophils # 12.4 H (1.6-8.9) K/mcL BMP 02/14/17 09:00 Sodium 143 Potassium 3.5 Chloride 114 H Carbon Dioxide 21 BUN 22 D Creatinine 0.79 Glucose 99 Calcium 9.1 Urine 02/13/17 Range/Units 16:00 Urine Color Yellow (Yellow) Urine Clarity Clear (Clear) Urine pH 6.5 (5.0-8.0) pH Units Ur Specific [place] 1.021 (1.010-1.025) Urine Protein 30 H (Neg-Trace) mg/dL Urine Glucose (UA) Normal (Normal) mg/dL - ABG Interpretation ABG results: ABG ABG pH 7.47 pH Units (7.32-7.45) H 02/09/17 04:50 ABG pCO2 28 mmHg (35-45) L 02/09/17 04:50 ABG pO2 48 mmHg (85-104) L* 02/09/17 04:50 ABG O2 Saturation 86 % (95-98) L 02/09/17 04:50 PT/INR, D-dimer PT 11.2 Seconds (9.4-12.1) 02/01/17 19:13 - Impressions Impressions Chest CT 02/13/17 15:41 IMPRESSION: Loculated right pleural effusion, concerning for empyema. Area of cavitation in the right lower lobe consolidation may reflect a lung abscess. Left lower lobe infiltrate is unchanged. New, trace left pleural effusion. D/ / 02/13/2017 17:08:44 Norm Ly MD / sanjay Interpreting Provider: Norm Ly MD Chest X-Ray 02/14/17 15:19 IMPRESSION: Interval placement of right pleural catheter. D/ / Denisse Tyler Cha, MD / Denisse Tyler Cha, MD Interpreting Provider: Denisse Tyler Cha, MD - VTE Documentation of Mechanical Device: Graduated compression elastic hosiery Consult Discharge Plan - Plan Referrals: Emmanuel Gonzalez DO [Resident] - 02/24/17 2:00 pm <Davi Lopez - Last Filed: 02/14/17 18:26> Date of Encounter: 02/14/17 - Assessment and plan (1) Alcohol abuse with alcohol-induced disorder Current Visit: Yes Status: Acute (2) COPD (chronic obstructive pulmonary disease) Current Visit: Yes Status: Acute Qualifiers: COPD type: COPD with acute exacerbation Qualified Code(s): J44.1 - Chronic obstructive pulmonary disease with (acute) exacerbation (3) Toxic metabolic encephalopathy Current Visit: Yes Status: Acute (4) Coronary artery disease Current Visit: Yes Status: Chronic Qualifiers: Coronary Disease-Associated Artery/Lesion type: [place] artery Associated angina: with unspecified angina Qualified Code(s): I25.119 - Atherosclerotic heart disease of [place] coronary artery with unspecified angina pectoris (5) Essential hypertension Current Visit: Yes Status: Chronic (6) Pancreatic insufficiency Current Visit: Yes Status: Chronic (7) DVT prophylaxis Current Visit: No Status: Acute (8) Elevated WBCs Current Visit: Yes Status: Acute Qualifiers: Leukocytosis type: bandemia Qualified Code(s): D72.825 - Bandemia - Constitutional Vitals: Temp Pulse Resp BP Pulse Ox 98.7 F 88 20 115/66 100 02/14/17 15:56 02/14/17 16:13 02/14/17 15:56 02/14/17 15:56 02/14/17 16:13 Internal Medicine: Result - Labs CBC & Chem 7: 02/14/17 09:00 02/14/17 09:00 Labs: Short CBC 02/14/17 Range/Units 09:00 WBC 15.9 H (4.3-11.1) K/mcL Hgb 10.9 L (12.9-16.9) g/dL Hct 34.3 L (37.5-50.1) % Plt Count 313 (140-400) K/mcL Neutrophils # 12.4 H (1.6-8.9) K/mcL BMP 02/14/17 09:00 Sodium 143 Potassium 3.5 Chloride 114 H Carbon Dioxide 21 BUN 22 D Creatinine 0.79 Glucose 99 Calcium 9.1 - ABG Interpretation ABG results: ABG ABG pH 7.47 pH Units (7.32-7.45) H 02/09/17 04:50 ABG pCO2 28 mmHg (35-45) L 02/09/17 04:50 ABG pO2 48 mmHg (85-104) L* 02/09/17 04:50 ABG O2 Saturation 86 % (95-98) L 02/09/17 04:50 PT/INR, D-dimer PT 11.2 Seconds (9.4-12.1) 02/01/17 19:13 - Impressions Impressions Chest X-Ray 02/14/17 15:19 IMPRESSION: Interval placement of right pleural catheter. D/ / Denisse Tyler Cha, MD / Denisse Tyler Cha, MD Interpreting Provider: Denisse Tyler Cha, MD - Attending Attestation I examined this patient and my medical decision-making was reviewed with the Resident Physician, Dr. Zuniga. I agree with the documented findings, disposition and treatment plan as described except to the extent set forth below. On exam the patient appears diaphoretic and tremulous, confused. Heart is tachycardic regular S1-S2. Lungs are with diminished breath sounds in the right base and bilateral crackles. Broad spectrum IV antibiotics. Continue meropenem. Hold clindamycin. Follow- up pleural fluid cultures. Consult CT surgery for decortication in case this is complex empyema. He is at high risk for morbidity mortality and complications due to altered mental status, systemic infection and suspected lung and pleural abscess.
[2017-02-14] MEDS ORDERED: *HR* OxyCODONE Immed Rel 5 MG TABLET PO STA (21:00)
[2017-02-14] MEDS ORDERED: Ketorolac 15 MG/ML VIAL IVP PRN (21:03)
[2017-02-14] MEDS: Divalproex (24 HR) 250 MG TABLET PO SCH (21:39)
--- NOTE | 2017-02-14 21:58 | Cardiothoracic Consult Note ---
Date of Encounter: 02/14/17 Time of Encounter: 21:49 Assessment and Plan (1) Pleural effusion Current Visit: Yes Status: Acute The patient is a 61-year-old hypertensive alcoholic man with multiple medical problems who was transferred to [facility] from the [facility] with confusion. The patient is found to be septic with possible aspiration pneumonia. The patient developed acute respiratory distress required intubation. Follow-up chest x-rays and a chest CT performed yesterday revealed loculated right pleural effusion. The patient has cirrhosis with portal hypertension and is not operative candidate. I agree with the chest tube insertion and lytic therapy to open resolve the effusion. The assessment and plan as outlined above was discussed with the patient and/or family members who expressed understanding and agreement. All questions were answered. - History of Present Illness Consult date: 02/14/17 Requesting physician: Juanpablo Mcbride Consult reason: Loculated right pleural effusion. Chief complaint: Shortness of breath History of present illness: Mr. Chen is a 61 year old hypertensive alcoholic man with multiple medical additions including CAD, hypercholesterolemia, cirrhosis with portal hypertension, COPD, cerebrovascular disease, and pancreatic insufficiency. He was transferred to [facility] from the [facility] on February 01, 2017 with confusion. The patient was septic from presumed aspiration pneumonia. He developed acute respiratory failure and required intubation. He also exhibited alcoholic encephalopathy. A follow-up chest CT performed yesterday revealed a loculated right pleural effusion with right lower lobe air-fluid level. I have been asked to evaluate the patient for possible chest tube placement versus thoracotomy and decortication. Past Med Surg Social Fam HX - Past Medical History Medical history: arthritis, cirrhosis, COPD, coronary artery disease, CVA, GERD , hepatitis, hyperlipidemia, hypertension, liver disease, migraine, myocardial infarction, osteoporosis (Vitamin D deficiency.), syncope, TIA, other ( Pancreatic insufficiency. Chronic musculoskeletal pain syndrome. Chronic alcoholism.) Psychiatric history: anxiety, bipolar, depression, schizophrenia, previous psychiatric hospitalization, other - Past Surgical History Surgical History: appendectomy, cholecystectomy, other (Partial Pancreatectomy, surgeries for partial bowel resection, PEG insertion, temporary ileostomy and reversal.) - Social History Smoking Status: Current every day smoker Smokeless Tobacco Status: No Alcohol use: heavy, recent Drug use: none, unknown Occupational status: unemployed Current living situation: Home - Independent Activity Level: Independent ambulation Recent Out of Country Travel Within the Last 8 Weeks: No Exposure or Possible Exposure to Illness During Travel: No - Family History Mother Family Member Ethnicity: Non- Living Status: Still Living Hx Family Cardiac Disorders: Yes (htn) Hx Family Respiratory Disorders: No Hx Family Cancer: Yes (Colon) Hx Family GI Disorders: No Hx Family Endocrine Disorder: No Hx Family Neuromuscular Disorders: Yes (Neuropathy) Hx Family Neurologic Disorders: No Hx Family HEENT Disorders: No Hx Family Autoimmune Disorders: No Father Living Status: Medications and Allergies Albuterol Sulfate [Proair Hfa] 2 puff IH Q6H PRN 12/21/16 [History] Amlodipine Besylate 10 mg PO DAILY 12/21/16 [History] Budesonide/Formoterol 160/4.5 [Symbicort 160/4.5] 1 puff IH BID 12/21/16 [ History] Cholecalciferol (D-3) [Vitamin D] 1,000 unit PO DAILY 12/21/16 [History] Cyanocobalamin (Vitamin B-12) [Vitamin B12] 500 mcg PO DAILY 12/21/16 [History] Divalproex (24 HR) [Depakote ER (24 HR)] 1,250 mg PO HS 12/21/16 [History] Ergocalciferol (VITAMIN D2) [Vitamin D2] 50,000 unit PO QWEEK 12/21/16 [History] Folic Acid 2 mg PO DAILY 12/21/16 [History] Gabapentin [Neurontin] 600 mg PO TID 12/21/16 [History] Lipase/Protease/Amylase [Ananya Kern 36,000 Units Capsule] 36,000 unit PO TID 12/21 [History] Magnesium Oxide [Mag-Ox] 400 mg PO BID 12/21/16 [History] Mirtazapine 7.5 mg PO HS 12/21/16 [History] Omeprazole [PriLOSEC] 20 mg PO DAILY 12/21/16 [History] Quetiapine Fumarate [Seroquel] 300 mg PO HS 12/21/16 [History] SUMAtriptan [Imitrex] 6 mg SQ BID PRN 12/21/16 [History] Thiamine (B-1) [Vitamin B-1] 100 mg PO BID 12/21/16 [History] TraZODone 50 mg PO TID 12/21/16 [History] Chlordiazepoxide [Librium] 25 mg PO TID PRN #40 capsule 12/25/16 [Rx] Lisinopril [Zestril] 10 mg PO DAILY #30 tablet 12/25/16 [Rx] Metoprolol [Lopressor] 50 mg PO BID #30 tablet 12/25/16 [Rx] Allergies No Known Allergies Allergy (Verified 10/12/16 03:54) All Systems Review: A 10-system review of systems was performed and is negative for pertinent findings except as documented above in the HPI. Physical Examination Vital Signs, Last 4 Hours Temp Pulse Resp BP Pulse Ox 02/14/17 19:12 98.0 F 96 18 109/58 02/14/17 18:47 94 20 98 General: Conversant, No Apparent Distress HEENT: Atraumatic, Normocephaly, Trachea midline Neck: No JVD, Normal carotid pulses Cardiac: Reg Rate and Rhythm, Normal S1 and S2, No Murmur Lungs: Normal Breath Sounds (Left lung krishna.), Decreased breath sounds (Right lung krishna.) Neuro: Alert and responsive, No focal deficits noted Vascular: Normal capillary refill Abdomen: Soft, Non-tender Musculoskeletal: No Chest Wall Tenderness Extremities: No Clubbing, No Cyanosis, No Edema Results 02/14/17 09:00 02/14/17 09:00 Lab Results, Last 24 hours 02/14/17 02/14/17 09:00 09:00 WBC 15.9 H Hgb 10.9 L Hct 34.3 L Plt Count 313 Sodium 143 Potassium 3.5 Chloride 114 H Carbon Dioxide 21 BUN 22 D Creatinine 0.79 Glucose 99 Calcium 9.1 - Imaging Chest Xray: image reviewed (Loculated right pleural effusion.) Consult Discharge Plan - Plan Referrals: Emmanuel Gonzalez DO [Resident] - 02/24/17 2:00 pm
[2017-02-15] MEDS: Meropenem 1,000 MG in 0.9 % Sodium Chloride Mini Bag 100 ML IVPB SCH ×4 (00:01→23:34)
[2017-02-15] MEDS: dilTIAZem HCl 60 MG TABLET PO SCH ×4 (00:01→23:35)
[2017-02-15 04:31] LABS: Hemoglobin 10.3 g/dL (12.9-16.9); Mean Corpuscular HGB Conc 32.2 g/dL (31.6-35.5); Mean Corpuscular Hemoglobin 26.7 pg (28.0-33.3); Mean Corpuscular Volume 82.9 fL (83.0-100.0); Platelet Count 395 K/mcL (140-400); Red Blood Count 3.86 M/mcL (4.19-5.50); Red Cell Distribution Width 21.2 % (11.5-14.5)
[2017-02-15] MEDS: Ipratropium/Albuterol Neb 3 ML IH SCH ×4 (04:34→22:07)
[2017-02-15 04:41] LABS: Alanine Aminotransferase 35 Units/L (0-55); Albumin/Globulin Ratio 0.5 (1.1-2.2); Alkaline Phosphatase 103 Units/L (38-126); Aspartate Amino Transferase 37 Units/L (5-34); BUN/Creatinine Ratio 20 (6-26); Bilirubin,Total 0.8 mg/dL (0.2-1.2); Blood Urea Nitrogen 16 mg/dL (8-26); Calcium 8.5 mg/dL (8.6-10.8); Carbon Dioxide 19 mEq/L (19-29); Chloride 113 mEq/L (98-109); Globulin 4.6 g/dL (2.4-3.5); Glucose 102 mg/dL (70-99); Magnesium 1.8 mg/dL (1.6-2.6); Osmolality,Calculated 295 (280-300); Potassium 3.8 mEq/L (3.5-4.5); Sodium 142 mEq/L (136-145); eGFR For African Americans > 60 (> 60); eGFR For Non-African Americans > 60 (> 60)
[2017-02-15 04:42] LABS: Albumin 2.2 g/dL (3.5-5.0); Total Protein 6.8 g/dL (6.0-8.3)
[2017-02-15 04:49] LABS: Lymphocytes # 2.6 K/mcL (0.6-4.6); Monocytes # 1.5 K/mcL (0.0-1.3); Neutrophils # 14.4 K/mcL (1.6-8.9)
[2017-02-15 04:50] LABS: Platelet Estimate Normal (Normal); Reactive Lymphocytes Present (Not Present); Toxic Granulation Present (Not Present)
[2017-02-15 04:51] LABS: Anisocytosis 1+ (Not Present)
[2017-02-15] MEDS: *HR* Enoxaparin 40 MG/0.4 ML SYRINGE SQ SCH (06:38)
[2017-02-15] MEDS: 0.9 % Sodium Chloride 1,000 ML IVC SCH ×2 (06:38→17:40)
[2017-02-15] MEDS: *HR* OxyCODONE Immed Rel 5 MG TABLET PO PRN ×2 (08:02→20:50)
[2017-02-15] MEDS: Nicotine 21 MG PATCH.TD24 TD SCH (08:02)
[2017-02-15] MEDS: traZODone 50 MG TABLET PO SCH ×2 (08:04→20:50)
[2017-02-15] MEDS: Sucralfate 1 GM TABLET PO SCH ×3 (08:04→15:05)
[2017-02-15] MEDS: Lactobacillus 1 EACH CAP.SPRINK PO SCH ×2 (08:04→20:50)
[2017-02-15] MEDS: Thiamine (B-1) 100 MG TABLET PO SCH (08:05)
[2017-02-15] MEDS: amLODIPine 5 MG TABLET PO SCH (08:05)
[2017-02-15] MEDS ORDERED: *HR* HYDROmorphone (PF) 1 MG/ML SYRINGE IVP PRN (08:25)
--- NOTE | 2017-02-15 08:25 | Internal Med Progress Note ---
<Brenden Zuniga - Last Filed: 02/15/17 09:02> Date of Encounter: 02/15/17 Time of Encounter: 08:22 - Assessment and plan (1) Sepsis Current Visit: Yes Status: Acute Assessment and plan: Patient meets sepsis criteria with Leukocytosis with tachycardia. Source is Pulmonary. There are toxic granulations and bandemia. No organ disfunction. normal lactic acid. Currently he is hemodynamically stable. We were concerned about decompensation overnight. discussed the case with Dr. Mcbride and went ahead and placed a Chest tube. Initial Gram stain shows no bacteria and pH of fluid is 7.41 . However the effusion is loculated. We attempted to get the tube to drain more efficiently with saline flush. I believe the fluid was mixed with saline so the results should be interpreted skeptically. Patient developed this complex fluid collection with possible Air fluid levels and is now septic so I think that this is likely an empyema. We have consulted Dr. Adams. Ultimatley patient may need Decortication. I discussed with Dr. Mcbride and we will attampt TPA in order to help drain the effusion. Patient did have one day of Vancomycin and Zosyn in the ICU. He was started on Meropenem and clindamycin. Now day 2. I think that we can use a single agent here. Meropenem has good anaerobic and Gram negative coverage. We will discontinue the Clindamycin and use meropenem as a single agent. Blood cultures were sent. Follow up with cultures from pleural effusion. Order sputum cultures. currently the patient is hem hemodynamically. we will continue to monitor him very closely. 02/15/17 Patient remains stable. WBC trending up with neutrophilia. However bandemia has resolved. Not much drainage from chest tube. Likely loculated. Pulmonology will infuse TPA. Hopefully this will help us resolve this infection. If TPA dose not work would recommend reconsulting CT surgery. Per documentation patient is not a candidate due to cirrhosis/ portal hypertension. However US of the liver shows fatty liver without sonographic evidence of cirrhosis. this may have been entered in the medical record in error. Also patient is not a reliable historian as he is quite confused at this time. Continue Meropenem. Continue IV fluids. Sputum culutres not sent yesterday. I asked Nursing staff to send this AM. I would recommend interpreting results from pleural fluid skeptically as I believe it was mixed with saline. Initial gram stain and culture of pleural are unrevealing. Currently the patient is hemodynamically stable. He is at risk for further decline. We will continue to keep him in 2N. (2) Parapneumonic effusion Current Visit: Yes Status: Acute Assessment and plan: as stated above. we do appreciatate the assistance of Pulmonology and CT surgery. (3) ETOH abuse Current Visit: Yes Status: Acute Assessment and plan: continue Librium and ciwa continue Thiamine. (4) COPD (chronic obstructive pulmonary disease) Current Visit: Yes Status: Acute Assessment and plan: Continue duonebs, (5) Pancreatic insufficiency Current Visit: Yes Status: Acute Assessment and plan: creon (6) Leukocytosis Current Visit: Yes Status: Acute Assessment and plan: up trending. May be secondary to Chest tube insertion vs. worsening infection. treatment as stated above. (7) Bandemia Current Visit: Yes Status: Resolved (8) Metabolic encephalopathy Current Visit: Yes Status: Acute Assessment and plan: Likely from a combination of Sepsis and ETOH abuse. (9) Hypoalbuminemia Current Visit: Yes Status: Acute (10) DVT prophylaxis Current Visit: Yes Status: Acute Assessment and plan: SQ lovenox (11) Anemia Current Visit: Yes Status: Acute Assessment and plan: iron deficiency anemia. trending down some. Likely from Iv fluids and repeated lab draws. continue to follow Iron supplementation small hematoma around chest tube. I do not think this is contributing much. Continue to monitor closely. (12) Atrial fibrillation Current Visit: Yes Status: Acute Assessment and plan: currently rate controlled on cardizem. I agree with previous assesment that he is not a very good candidate for anticoagulation given his metabolic encephalopathy , chronic ETOH abuse, and high fall risk. (13) Chest tube in place Current Visit: Yes Status: Acute (14) Need for management of chest tube Current Visit: Yes Status: Acute Assessment and plan: appreciate Pulmonology following. (15) Hematoma Current Visit: Yes Status: Acute Assessment and plan: very small around chest tube insertion. continue to monitor. Check PT/INR (16) Fatty liver Current Visit: Yes Status: Acute Assessment and plan: weight loss low fat diet ETOH cessation No stigmata of cirrhosis on exam. normal INR and albumin on admission. No sonographic evidence of cirrhosis on US. (17) Hypoalbuminemia Current Visit: Yes Status: Acute Assessment and plan: normal on admission. This likely is secondary to hypermetabolic state in acute illness rather than from liver disease. - Subjective Interval history: No major events overnight. However ,per Nursin staff, the chest tube suction was set up incorrectly and tube as not draining. After this was corrected there was approximately 10 cc's of drainage. Today Mr Chen states that he is still somewhat short of breath. He feels poorly. He still has pleuritic pain in the right chest. He has no further complaints or concerns at this time. - Constitutional Vitals: Temp Pulse Resp BP Pulse Ox 99.2 F 102 20 106/64 95 02/15/17 08:04 02/15/17 08:04 02/15/17 08:04 02/15/17 08:04 02/15/17 08:04 General appearance: Present: A&O X 1, disheveled, obese, severe distress ( moderate), answers questions appropriately. Absent: cooperative - Head Head exam: Present: atraumatic, normal inspection, normocephalic - Eye Eye exam: Present: PERRL, conjuntiva pink, sclera anicteric Pupils: Present: PERRL - ENT ENT exam: Present: mucous membranes moist - Neck Neck exam general surgery: Present: supple, trachea midline. Absent: lymphadenopathy - Respiratory Respiratory exam: Absent: accessory muscle use, rales, rhonchi, wheezes Additional comments: diminished over right lower lung krishna. crackles at the bases. - Cardiovascular Cardiovascular exam: Present: RRR, +S1, +S2. Absent: diastolic murmur, gallop, rubs, systolic murmur - GI/Abdominal GI/Abdominal exam: Present: normal bowel sounds, soft, no peritoneal signs. Absent: distended, tenderness - Extremities Exam Extremities exam: Present: warm, radial pulses palpable and symetrical. Absent : calf tenderness, cyanotic, pedal edema - Skin Skin exam: Present: dry, intact Internal Medicine: Result - Labs CBC & Chem 7: 02/15/17 03:56 02/15/17 03:56 Labs: Short CBC 02/14/17 02/15/17 Range/Units 09:00 03:56 WBC 15.9 H 18.4 H (4.3-11.1) K/mcL Hgb 10.9 L 10.3 L (12.9-16.9) g/dL Hct 34.3 L 32.0 L (37.5-50.1) % Plt Count 313 395 (140-400) K/mcL Neutrophils # 12.4 H 14.4 H (1.6-8.9) K/mcL BMP 02/14/17 02/15/17 09:00 03:56 Sodium 143 142 Potassium 3.5 3.8 Chloride 114 H 113 H Carbon Dioxide 21 19 BUN 22 D 16 Creatinine 0.79 0.82 Glucose 99 102 H Calcium 9.1 8.5 L Liver Function 02/15/17 Range/Units 03:56 Total Bilirubin 0.8 (0.2-1.2) mg/dL AST 37 H (5-34) Units/L ALT 35 (0-55) Units/L Alkaline Phosphatase 103 (38-126) Units/L Albumin 2.2 L (3.5-5.0) g/dL - ABG Interpretation ABG results: ABG ABG pH 7.47 pH Units (7.32-7.45) H 02/09/17 04:50 ABG pCO2 28 mmHg (35-45) L 02/09/17 04:50 ABG pO2 48 mmHg (85-104) L* 02/09/17 04:50 ABG O2 Saturation 86 % (95-98) L 02/09/17 04:50 PT/INR, D-dimer PT 11.2 Seconds (9.4-12.1) 02/01/17 19:13 - Impressions Impressions Chest X-Ray 02/14/17 15:19 IMPRESSION: Interval placement of right pleural catheter. D/ / Denisse Tyler Cha, MD / Denisse Tyler Cha, MD Interpreting Provider: Denisse Tyler Cha, MD - VTE Documentation of Mechanical Device: Graduated compression elastic hosiery Consult Discharge Plan - Plan Referrals: Emmanuel Gonzalez DO [Resident] - 02/24/17 2:00 pm <Davi Lopez - Last Filed: 02/15/17 16:33> Date of Encounter: 02/15/17 - Assessment and plan (1) Alcohol abuse with alcohol-induced disorder Current Visit: Yes Status: Acute (2) COPD (chronic obstructive pulmonary disease) Current Visit: Yes Status: Acute Qualifiers: COPD type: COPD with acute exacerbation Qualified Code(s): J44.1 - Chronic obstructive pulmonary disease with (acute) exacerbation (3) Toxic metabolic encephalopathy Current Visit: Yes Status: Acute (4) Coronary artery disease Current Visit: Yes Status: Chronic Qualifiers: Coronary Disease-Associated Artery/Lesion type: [place] artery Associated angina: with unspecified angina Qualified Code(s): I25.119 - Atherosclerotic heart disease of [place] coronary artery with unspecified angina pectoris (5) Essential hypertension Current Visit: Yes Status: Chronic (6) Pancreatic insufficiency Current Visit: Yes Status: Chronic (7) DVT prophylaxis Current Visit: No Status: Acute (8) Elevated WBCs Current Visit: Yes Status: Acute Qualifiers: Leukocytosis type: bandemia Qualified Code(s): D72.825 - Bandemia - Constitutional Vitals: Temp Pulse Resp BP Pulse Ox 99.8 F H 91 20 98/56 93 02/15/17 15:39 02/15/17 16:00 02/15/17 15:39 02/15/17 15:39 02/15/17 15:39 Internal Medicine: Result - Labs CBC & Chem 7: 02/15/17 03:56 02/15/17 03:56 Labs: Short CBC 02/15/17 Range/Units 03:56 WBC 18.4 H (4.3-11.1) K/mcL Hgb 10.3 L (12.9-16.9) g/dL Hct 32.0 L (37.5-50.1) % Plt Count 395 (140-400) K/mcL Neutrophils # 14.4 H (1.6-8.9) K/mcL BMP 02/15/17 03:56 Sodium 142 Potassium 3.8 Chloride 113 H Carbon Dioxide 19 BUN 16 Creatinine 0.82 Glucose 102 H Calcium 8.5 L Liver Function 02/15/17 Range/Units 03:56 Total Bilirubin 0.8 (0.2-1.2) mg/dL AST 37 H (5-34) Units/L ALT 35 (0-55) Units/L Alkaline Phosphatase 103 (38-126) Units/L Albumin 2.2 L (3.5-5.0) g/dL - ABG Interpretation ABG results: ABG ABG pH 7.47 pH Units (7.32-7.45) H 02/09/17 04:50 ABG pCO2 28 mmHg (35-45) L 02/09/17 04:50 ABG pO2 48 mmHg (85-104) L* 02/09/17 04:50 ABG O2 Saturation 86 % (95-98) L 02/09/17 04:50 PT/INR, D-dimer PT 15.9 Seconds (9.4-12.1) H 02/15/17 09:40 - Impressions Impressions Chest CT 02/15/17 12:36 IMPRESSION: Moderate size right pleural effusion which is partially loculated. The right thoracic pigtail catheter appears to be within the right lower lobe parenchyma. Repositioning may be considered. Right lower lobe infiltrates which may represent pneumonia versus atelectasis. Borderline enlarged mediastinal lymph nodes likely reactive. D/ / 02/15/2017 13:56:21 Delvis Rodriguez MD / terry Interpreting Provider: Delvis Rodriguez MD - Attending Attestation I examined this patient and my medical decision-making was reviewed with the Resident Physician, Dr. Zuniga. I agree with the documented findings, disposition and treatment plan as described except to the extent set forth below. Patient cannot provide reliable history due to encephalopathy. On exam he is awake alert oriented 1, confused. Heart auscultation reveals regular S1-S2, no murmurs. Lung exam reveals diminished breath sounds at the right base. Bibasilar crackles. We will continue broad-spectrum IV antibiotics to cover gram-positive cocci, gram-negative rods and anaerobes. Follow-up pleural fluid studies. I appreciate input from cardiothoracic surgery. Patient currently has a chest tube. May need decortication because of loculated pleural effusion, possible empyema. Chest tube not draining currently. I will obtain repeat CT chest to eval for change in effusion and tube placement. He is at high risk for complication due to sepsis and altered mental status.
[2017-02-15 09:59] LABS: INR 1.5; Prothrombin Time 15.9 Seconds (9.4-12.1)
[2017-02-15] MEDS: Budesonide/Formoterol 160/4.5 MDI IH SCH ×3 (11:24→22:25)
--- NOTE | 2017-02-15 11:59 | Pulmonology Progress Note ---
Date of Encounter: 02/15/17 Time of Encounter: 09:50 Assessment and Plan (1) Pleural effusion Current Visit: Yes Status: Acute The large right pleural effusion given its configuration from CT scan likely represents a parapneumonic effusion. Ultrasound evaluation of the chest disclosed multiple septations and compartments. A small bore chest tube was placed placed for provision of intrapleural lytics. Cardiothoracic surgery has been consulted and conceivably the patient may require decortication next week if he has an unfavorable response intrapleural lytics. In the meantime, the patient will be maintained on meropenem. Code(s): J90 - Pleural effusion, not elsewhere classified SNOMED Code(s): 13258654 Subjective Principal diagnosis: acute respiratory failure Interval history: Patient was recently transferred out of the intensive care unit where he underwent treatment for hypoxemic respiratory failure and sepsis. Since his transition out of the intensive care unit, Mr. olvera is developed recurrent respiratory issues. Imaging study of the chest was obtained which revealed a large right pleural effusion which is seemingly loculated based on its configuration. Given the patient's clinical status, it is likely this represents a parapneumonic effusion and a small bore chest tube was placed by myself on 02/14/2017. Since placement of that chest tube, there has been minimal output from in spite of the fact that it seemingly functions (flushes easily). The patient may also require surgical intervention for treatment of this parapneumonic process and Dr. Adams has been consulted for his opinion.. The patient admits to breathlessness and mild chest discomfort. Objective PUL Vital signs: Last Vital Signs Temp 99.2 F 02/15/17 11:22 Pulse 80 02/15/17 11:22 Resp 20 02/15/17 11:22 BP 114/62 02/15/17 11:22 Pulse Ox 94 02/15/17 11:22 General appearance: no acute distress Eyes: nonicteric ENT: oropharynx moist Auscultation: bilateral: diminished breath sounds (Smallbore chest tube right hemithorax) Cardiovascular: regular rate and rhythm Gastrointestinal: normoactive bowel sounds, non-distended Extremities: no cyanosis Musculoskeletal: no deformities non-focal exam Results - Laboratory Findings CBC and BMP: 02/15/17 03:56 02/15/17 03:56 ABG ABG pH 7.47 pH Units (7.32-7.45) H 02/09/17 04:50 ABG pCO2 28 mmHg (35-45) L 02/09/17 04:50 ABG pO2 48 mmHg (85-104) L* 02/09/17 04:50 ABG O2 Saturation 86 % (95-98) L 02/09/17 04:50 PT/INR, D-dimer PT 15.9 Seconds (9.4-12.1) H 02/15/17 09:40 Abnormal lab findings: Abnormal lab results WBC 18.4 K/mcL (4.3-11.1) H 02/15/17 03:56 RBC 3.86 M/mcL (4.19-5.50) L 02/15/17 03:56 Hgb 10.3 g/dL (12.9-16.9) L 02/15/17 03:56 Hct 32.0 % (37.5-50.1) L 02/15/17 03:56 MCV 82.9 fL (83.0-100.0) L 02/15/17 03:56 MCH 26.7 pg (28.0-33.3) L 02/15/17 03:56 RDW 21.2 % (11.5-14.5) H 02/15/17 03:56 Immature Gran % 14.5 % (0-4) H 02/07/17 03:20 Metamyelocytes % 2.0 % (0) H 02/14/17 09:00 Myelocytes % 2.0 % (0) H 02/10/17 04:20 Promyelocytes % 4.0 % (0) H 02/12/17 05:23 Neutrophils # 14.4 K/mcL (1.6-8.9) H 02/15/17 03:56 Monocytes # 1.5 K/mcL (0.0-1.3) H 02/15/17 03:56 Nucleated RBCs/100 WBC 0.2 /100 WBC (0) H 02/14/17 09:00 Reactive Lymphocytes Present (Not Present) A 02/15/17 03:56 Toxic Granulation Present (Not Present) A 02/15/17 03:56 Dohle Bodies Present (Not Present) A 02/10/17 04:20 Clumped Platelets Few (Not Present) A 02/13/17 00:35 Large Platelets Present (Not Present) A 02/13/17 00:35 Polychromasia 1+ (Not Present) A 02/14/17 09:00 Anisocytosis 1+ (Not Present) A 02/15/17 03:56 Microcytosis Present (Not Present) A 02/12/17 05:23 PT 15.9 Seconds (9.4-12.1) H 02/15/17 09:40 ABG pH 7.47 pH Units (7.32-7.45) H 02/09/17 04:50 ABG pCO2 28 mmHg (35-45) L 02/09/17 04:50 ABG pO2 48 mmHg (85-104) L* 02/09/17 04:50 ABG HCO3 20.4 mEQ/L (21-27) L 02/09/17 04:50 ABG O2 Saturation 86 % (95-98) L 02/09/17 04:50 ABG Base Excess -2.4 mEq/L (-2.0 to 3.0) L 02/09/17 04:50 VBG pH 7.56 pH Units (7.32-7.42) H 02/01/17 20:30 VBG pCO2 25 mmHg (41-51) L 02/01/17 20:30 VBG pO2 111 mmHg (25-40) H 02/01/17 20:30 Chloride 113 mEq/L (98-109) H 02/15/17 03:56 Glucose 102 mg/dL (70-99) H 02/15/17 03:56 POC Glucose 133 (58-89) H 02/10/17 06:10 Calcium 8.5 mg/dL (8.6-10.8) L 02/15/17 03:56 % Saturation 14 % (20-55) L 02/04/17 12:19 Direct Bilirubin 0.6 mg/dL (0.0-0.5) H 02/06/17 11:14 AST 37 Units/L (5-34) H 02/15/17 03:56 Albumin 2.2 g/dL (3.5-5.0) L 02/15/17 03:56 Globulin 4.6 g/dL (2.4-3.5) H 02/15/17 03:56 Albumin/Globulin Ratio 0.5 (1.1-2.2) L 02/15/17 03:56 LDL Cholesterol, Calc 119 mg/dL (0-99) H 02/01/17 20:30 Lipase 5 Units/L (8-78) L 02/06/17 11:14 TSH 5.937 mcIU/mL (0.350-4.840) H 02/02/17 02:38 Free T3 3.73 pg/mL (1.71-3.71) H 02/03/17 13:25 Urine Protein 30 mg/dL (Neg-Trace) H 02/13/17 16:00 Urine Blood Trace (Negative) H 02/13/17 16:00 Urine Urobilinogen 2.0 mg/dL (Normal) H 02/13/17 16:00 Urine Microscopic RBC 5-15 per hpf (0-3) H 02/13/17 16:00 Pleural Appearance Bloody (Clear) A 02/14/17 15:00 Pleural RBC 0.346 M/mcL (0.000-0.002) H 02/14/17 15:00 Urine Opiates Screen Positive ng/mL (Ejnclf=437) H 02/05/17 21:05 Free Valproic Acid <7 ug/mL (7-23) L 02/01/17 20:30 Total Valproic Acid <7 ug/mL (50-125) L 02/01/17 20:30 U Benzodiazepines Scrn Positive ng/mL (Oyvuvv=348) H 02/05/17 21:05 Hepatitis C Ab Screen Reactive (Nonreactive) H 02/04/17 12:19 - Microbiology Findings Microbiology Findings: Microbiology, Last 48 Hours 02/14/17 15:00 Body Fluid Culture - Preliminary Pleural Fluid 02/14/17 15:00 Gram Stain - Final Pleural Fluid 02/13/17 00:35 Blood Culture - Preliminary Peripheral Venipuncture No growth. 02/13/17 00:37 Blood Culture - Preliminary Peripheral Venipuncture No growth. - Clinical Findings Intake & Output: Intake & Output 02/14/17 02/15/17 02/15/17 23:59 07:59 15:59 Intake Total 480 / 480 1100 / 1100 220 / 220 Output Total 1055 / 1055 450 / 450 407 / 407 Balance -575 / -575 650 / 650 -187 / -187 Weight 99.8 kg - VTE Documentation of Mechanical Device: Graduated compression elastic hosiery Consult Discharge Plan - Plan Referrals: Emmanuel Gonzalez DO [Resident] - 02/24/17 2:00 pm
[2017-02-15 12:22] LABS: Activated Partial Thrombo Time 30.8 Seconds (26.0-36.0)
[2017-02-15 13:34] LABS: Lactate Dehydrogenase 155 Units/L (159-327)
[2017-02-15] MEDS ORDERED: 0.9 % Sodium Chloride 1,000 ML IVC ONE ×2 (15:52→17:48)
[2017-02-15] MEDS ORDERED: *HR* FentaNYL (PF) 100 MCG/2 ML VIAL ONE (16:19)
--- NOTE | 2017-02-15 16:33 | Event Note ---
Date of Encounter: 02/15/17 Time of Encounter: 16:31 Reviewed follow up chest CT, chest tube not in appropriate position. No drainage of pleural fluid with retraction hence device removed. Suggest IR placement of device tomorrow, trial IP lytics thereafter.
[2017-02-15] MEDS ORDERED: *HR* FentaNYL (PF) 100 MCG/2 ML VIAL IVP ONE (16:34)
[2017-02-15 16:57] LABS: Hematocrit 30.7 % (37.5-50.1); Hemoglobin 9.9 g/dL (12.9-16.9)
--- NOTE | 2017-02-15 17:29 | Electrocardiograph Report ---
[address] [address] Test Date: 2017-02-12 Pat Name: Lauri Chen Department: 114 Room: 01 Gender: M Night Monitor: : 1955 Requested By: Davi Lopez Order Number: [id number] Reading MD: Lisa Dinero Measurements Intervals [place] Rate: 101 P: 8 NM: 136 QRS: -6 QRSD: 81 T: 29 QT: 344 QTc: 402 Interpretive Statements SINUS TACHYCARDIA ABNORMAL RHYTHM ECG Electronically Signed On 02-15-2017 17:27:32 EDT by Lisa Dinero
[2017-02-15] MEDS: Divalproex (24 HR) 250 MG TABLET PO SCH (20:50)
[2017-02-16 03:07] LABS: Basophils % 0.2 %; Eosinophils # 0.1 K/mcL (0.0-0.6); Eosinophils % 0.4 %; Hematocrit 30.7 % (37.5-50.1); Hemoglobin 9.8 g/dL (12.9-16.9); Immature Granulocytes % 5.7 % (0-4); Lymphocytes % 11.6 %; Mean Corpuscular HGB Conc 31.9 g/dL (31.6-35.5); Mean Corpuscular Volume 84.6 fL (83.0-100.0); Mean Platelet Volume 10.6 fL (9.4-12.4); Monocytes # 1.7 K/mcL (0.0-1.3); Monocytes % 9.8 %; Neutrophils # 12.4 K/mcL (1.6-8.9); Platelet Count 299 K/mcL (140-400); Red Blood Count 3.63 M/mcL (4.19-5.50); Red Cell Distribution Width 21.1 % (11.5-14.5); Segmented Neutrophils % 72.3 %
[2017-02-16 03:22] LABS: BUN/Creatinine Ratio 20 (6-26); Blood Urea Nitrogen 16 mg/dL (8-26); Calcium 8.4 mg/dL (8.6-10.8); Carbon Dioxide 20 mEq/L (19-29); Chloride 113 mEq/L (98-109); Glucose 98 mg/dL (70-99); Osmolality,Calculated 293 (280-300); Potassium 4.2 mEq/L (3.5-4.5); Sodium 141 mEq/L (136-145); eGFR For African Americans > 60 (> 60); eGFR For Non-African Americans > 60 (> 60)
[2017-02-16 03:51] LABS: Platelet Clumps Few (Not Present)
[2017-02-16 03:52] LABS: Anisocytosis 1+ (Not Present)
[2017-02-16] MEDS: Ipratropium/Albuterol Neb 3 ML IH SCH ×3 (04:13→16:16)
[2017-02-16] MEDS: *HR* Enoxaparin 40 MG/0.4 ML SYRINGE SQ SCH (05:58)
[2017-02-16] MEDS: 0.9 % Sodium Chloride 1,000 ML IVC SCH (06:01)
--- NOTE | 2017-02-16 07:04 | Pulmonology Progress Note ---
Date of Encounter: 02/16/17 Time of Encounter: 16:00 Assessment and Plan (1) Empyema lung Current Visit: Yes Status: Acute 61-year-old gentleman with a history of alcohol abuse and liver cirrhosis with concern for underlying portal hypertension who presented with severe sepsis secondary to right and sided empyema status post surgical decortication today. She underwent procedure without any untoward effects he is currently in the ICU for further monitoring. Requiring only minimal ventilatory support at present hemodynamically stable. We will continue sedation with propofol and fentanyl we can add Precedex if needed We will bolus fluid (crystalloid) as needed to support urine output and keep map greater than 60 He is on broad-spectrum antibiotics for coverage of empyema pending speciation and sensitivities for which we will de-escalate We are appreciative of the cardiothoracic surgery service was also following this patient and managing the chest tubes for removal when appropriate Although he has underlying advanced liver dysfunction there is no evidence of acute decompensation We will make sure the nutrition has seen the patient and make recommendations for ongoing management which may include enteral feeding timing based upon ability to liberate from mechanical ventilation Patient has a history of COPD without acute exacerbation recommend cont ICS/ LABA and prn tyesha/cihn every 4-6hours We will continue DVT prophylaxis and GI prophylaxis per standard recommendations (2) Acute respiratory failure Current Visit: No Status: Acute Qualifiers: Respiratory failure complication: hypoxia Qualified Code(s): J96.01 - Acute respiratory failure with hypoxia (3) Protein malnutrition Current Visit: No Status: Chronic (4) Sepsis Current Visit: Yes Status: Acute Qualifiers: Sepsis type: sepsis due to unspecified organism Qualified Code(s): A41.9 - Sepsis, unspecified organism (5) ETOH abuse Current Visit: Yes Status: Acute Subjective Principal diagnosis: acute respiratory failure Interval history: Patient was seen and examined after surgical decortication for empyema. He underwent atop the procedure without any untoward effects. In the ICU he is maintained on sedation and mechanical ventilator there is no evidence of hemodynamic instability and he is requiring very minimal ventilatory support Objective PUL Vital signs: Last Vital Signs Temp 100.3 F H 02/16/17 03:24 Pulse 101 02/16/17 03:24 Resp 16 02/16/17 04:15 BP 116/69 02/16/17 03:24 Pulse Ox 93 02/16/17 04:15 General appearance: other (Sedated for vent. ) Eyes: nonicteric Neck: supple Auscultation: right: diminished breath sounds Cardiovascular: regular rate and rhythm Gastrointestinal: normoactive bowel sounds Extremities: edema (Trace bilateral) non-focal exam, pupils equal and round Results - Laboratory Findings CBC and BMP: 02/16/17 17:02 02/16/17 02:53 ABG ABG pH 7.47 pH Units (7.32-7.45) H 02/09/17 04:50 ABG pCO2 28 mmHg (35-45) L 02/09/17 04:50 ABG pO2 48 mmHg (85-104) L* 02/09/17 04:50 ABG O2 Saturation 86 % (95-98) L 02/09/17 04:50 PT/INR, D-dimer PT 15.9 Seconds (9.4-12.1) H 02/15/17 09:40 Abnormal lab findings: Abnormal lab results WBC 17.1 K/mcL (4.3-11.1) H 02/16/17 02:53 RBC 3.63 M/mcL (4.19-5.50) L 02/16/17 02:53 Hgb 9.8 g/dL (12.9-16.9) L 02/16/17 02:53 Hct 30.7 % (37.5-50.1) L 02/16/17 02:53 MCH 27.0 pg (28.0-33.3) L 02/16/17 02:53 RDW 21.1 % (11.5-14.5) H 02/16/17 02:53 Immature Gran % 5.7 % (0-4) H 02/16/17 02:53 Metamyelocytes % 2.0 % (0) H 02/14/17 09:00 Myelocytes % 2.0 % (0) H 02/10/17 04:20 Promyelocytes % 4.0 % (0) H 02/12/17 05:23 Neutrophils # 12.4 K/mcL (1.6-8.9) H 02/16/17 02:53 Monocytes # 1.7 K/mcL (0.0-1.3) H 02/16/17 02:53 Nucleated RBCs/100 WBC 0.2 /100 WBC (0) H 02/14/17 09:00 Reactive Lymphocytes Present (Not Present) A 02/15/17 03:56 Toxic Granulation Present (Not Present) A 02/15/17 03:56 Dohle Bodies Present (Not Present) A 02/10/17 04:20 Clumped Platelets Few (Not Present) A 02/16/17 02:53 Large Platelets Present (Not Present) A 02/13/17 00:35 Polychromasia 1+ (Not Present) A 02/14/17 09:00 Anisocytosis 1+ (Not Present) A 02/16/17 02:53 Microcytosis Present (Not Present) A 02/12/17 05:23 PT 15.9 Seconds (9.4-12.1) H 02/15/17 09:40 ABG pH 7.47 pH Units (7.32-7.45) H 02/09/17 04:50 ABG pCO2 28 mmHg (35-45) L 02/09/17 04:50 ABG pO2 48 mmHg (85-104) L* 02/09/17 04:50 ABG HCO3 20.4 mEQ/L (21-27) L 02/09/17 04:50 ABG O2 Saturation 86 % (95-98) L 02/09/17 04:50 ABG Base Excess -2.4 mEq/L (-2.0 to 3.0) L 02/09/17 04:50 VBG pH 7.56 pH Units (7.32-7.42) H 02/01/17 20:30 VBG pCO2 25 mmHg (41-51) L 02/01/17 20:30 VBG pO2 111 mmHg (25-40) H 02/01/17 20:30 Chloride 113 mEq/L (98-109) H 02/16/17 02:53 POC Glucose 133 (58-89) H 02/10/17 06:10 Calcium 8.4 mg/dL (8.6-10.8) L 02/16/17 02:53 % Saturation 14 % (20-55) L 02/04/17 12:19 Direct Bilirubin 0.6 mg/dL (0.0-0.5) H 02/06/17 11:14 AST 37 Units/L (5-34) H 02/15/17 03:56 Lactate Dehydrogenase 155 Units/L (159-327) L 02/15/17 03:56 Albumin 2.2 g/dL (3.5-5.0) L 02/15/17 03:56 Globulin 4.6 g/dL (2.4-3.5) H 02/15/17 03:56 Albumin/Globulin Ratio 0.5 (1.1-2.2) L 02/15/17 03:56 LDL Cholesterol, Calc 119 mg/dL (0-99) H 02/01/17 20:30 Lipase 5 Units/L (8-78) L 02/06/17 11:14 TSH 5.937 mcIU/mL (0.350-4.840) H 02/02/17 02:38 Free T3 3.73 pg/mL (1.71-3.71) H 02/03/17 13:25 Urine Protein 30 mg/dL (Neg-Trace) H 02/13/17 16:00 Urine Blood Trace (Negative) H 02/13/17 16:00 Urine Urobilinogen 2.0 mg/dL (Normal) H 02/13/17 16:00 Urine Microscopic RBC 5-15 per hpf (0-3) H 02/13/17 16:00 Pleural Appearance Bloody (Clear) A 02/14/17 15:00 Pleural RBC 0.346 M/mcL (0.000-0.002) H 02/14/17 15:00 Urine Opiates Screen Positive ng/mL (Kkeaap=665) H 02/05/17 21:05 Free Valproic Acid <7 ug/mL (7-23) L 02/01/17 20:30 Total Valproic Acid <7 ug/mL (50-125) L 02/01/17 20:30 U Benzodiazepines Scrn Positive ng/mL (Fkrbdv=564) H 02/05/17 21:05 Hepatitis C Ab Screen Reactive (Nonreactive) H 02/04/17 12:19 - Microbiology Findings Microbiology Findings: Microbiology, Last 48 Hours 02/14/17 15:00 Body Fluid Culture - Preliminary Pleural Fluid 02/14/17 15:00 Gram Stain - Final Pleural Fluid 02/13/17 00:35 Blood Culture - Preliminary Peripheral Venipuncture No growth. 02/13/17 00:37 Blood Culture - Preliminary Peripheral Venipuncture No growth. - Clinical Findings Intake & Output: Intake & Output 02/15/17 02/15/17 02/16/17 15:59 23:59 07:59 Intake Total 947 / 947 2072 1000 / 1000 Output Total 407 / 407 1350 / 1350 Balance 540 / 540 2066 -350 / -350 - VTE Documentation of Mechanical Device: Graduated compression elastic hosiery Consult Discharge Plan - Plan Referrals: Emmanuel Gonzalez DO [Resident] - 02/24/17 2:00 pm
[2017-02-16] MEDS: Sucralfate 1 GM TABLET PO SCH ×3 (09:50→16:39)
[2017-02-16] MEDS: Budesonide/Formoterol 160/4.5 MDI IH SCH ×2 (09:51→21:53)
[2017-02-16] MEDS: Lactobacillus 1 EACH CAP.SPRINK PO SCH ×2 (09:51→21:49)
[2017-02-16] MEDS: dilTIAZem HCl 60 MG TABLET PO SCH ×2 (10:15→16:39)
--- NOTE | 2017-02-16 10:15 | Anesthesia Evaluation PreOp ---
Date of Encounter: 02/17/17 Time of Encounter: 12:00 - Past History Planned Operation: right thoracotomy with decortication Cardiac History: DE (unknown when), HTN, Hyperlipidemia Pulmonary History: Smoker, Pack/yr (1ppd x years), COPD, Other (current asp[ iration pneumonia) [employer] History: CVA (unknown when, no residual), Syncope (unknown cause or frequency), Other (admitted with alcoholic encephalitis) Other Medical History: Hepatic (hepatitis c, cirrhosis, questionable history portal hypertension), GERD, Other (pancreatic insufficiency) Anesthesia History: No Prior Anesthetic Complications, Past Anesthesia (susannah, partial pancreatectomy, partial small bowel resection, appy) Alcohol Use: heavy, recent Drug use: none, unknown Medications and Allergies Albuterol Sulfate [Proair Hfa] 2 puff IH Q6H PRN 12/21/16 [History] Amlodipine Besylate 10 mg PO DAILY 12/21/16 [History] Budesonide/Formoterol 160/4.5 [Symbicort 160/4.5] 1 puff IH BID 12/21/16 [ History] Cholecalciferol (D-3) [Vitamin D] 1,000 unit PO DAILY 12/21/16 [History] Cyanocobalamin (Vitamin B-12) [Vitamin B12] 500 mcg PO DAILY 12/21/16 [History] Divalproex (24 HR) [Depakote ER (24 HR)] 1,250 mg PO HS 12/21/16 [History] Ergocalciferol (VITAMIN D2) [Vitamin D2] 50,000 unit PO QWEEK 12/21/16 [History] Folic Acid 2 mg PO DAILY 12/21/16 [History] Gabapentin [Neurontin] 600 mg PO TID 12/21/16 [History] Lipase/Protease/Amylase [Ananya Kern 36,000 Units Capsule] 36,000 unit PO TID 12/21 [History] Magnesium Oxide [Mag-Ox] 400 mg PO BID 12/21/16 [History] Mirtazapine 7.5 mg PO HS 12/21/16 [History] Omeprazole [PriLOSEC] 20 mg PO DAILY 12/21/16 [History] Quetiapine Fumarate [Seroquel] 300 mg PO HS 12/21/16 [History] SUMAtriptan [Imitrex] 6 mg SQ BID PRN 12/21/16 [History] Thiamine (B-1) [Vitamin B-1] 100 mg PO BID 12/21/16 [History] TraZODone 50 mg PO TID 12/21/16 [History] Chlordiazepoxide [Librium] 25 mg PO TID PRN #40 capsule 12/25/16 [Rx] Lisinopril [Zestril] 10 mg PO DAILY #30 tablet 12/25/16 [Rx] Metoprolol [Lopressor] 50 mg PO BID #30 tablet 12/25/16 [Rx] Allergies No Known Allergies Allergy (Verified 10/12/16 03:54) - Meds/Allergy Pre-op Review Medications Reviewed: Yes Allergies Reviewed: Yes Beta Blockers on Current Med List: Yes If Beta Blockers taken, Date/Time (Last Dose taken): 1015 today Anesthesia Results - Labs 02/16/17 17:02 02/17/17 03:30 - Imaging Additional studies: echo shows EF60%, nl LV function, no valvular disease CT chest shows loculated fluid right side Anesthesia Exam Selected Entries 02/16/17 07:33 Temperature 98.7 F Pulse Rate 102 Respiratory Rate 16 Blood Pressure 126/76 O2 Sat by Pulse Oximetry 96 Oxygen Flow Rate (LPM) 3 Weight: 100kg - HEENT Pupil (Motor): EOMI Mallampati: II Teeth: Edentulous Oral Opening: Greater than 3 - [employer] LOC: Confused (oriented to name, not procedure. No active hallucinations.) [employer] Motor: Normal RUE, Normal LUE, Normal RLE, Normal LLE, Normal Face [employer] Sensory: Normal: RUE, LUE, RLE, LLE, Face - Cardiac Rhythm: Regular (tachy) Murmur: None - Pulmonary Breath Sounds: bilateral Clear (decreased on right) Respiratory Effort: Symmetrical Anesthesia Assess/Plan ASA Score: 4 Anesthetic Plan: General Monitoring Plan: Standard Monitors, A-Line Recovery Plan: ICU
[2017-02-16] MEDS: Thiamine (B-1) 100 MG TABLET PO SCH (10:16)
[2017-02-16] MEDS: Nicotine 21 MG PATCH.TD24 TD SCH (10:16)
[2017-02-16] MEDS: amLODIPine 5 MG TABLET PO SCH (10:16)
[2017-02-16] MEDS: traZODone 50 MG TABLET PO SCH ×2 (10:16→21:49)
--- NOTE | 2017-02-16 10:21 | Internal Med Progress Note ---
<Brenden Zuniga - Last Filed: 02/16/17 10:19> Date of Encounter: 02/16/17 Time of Encounter: 10:19 - Assessment and plan (1) Sepsis Current Visit: Yes Status: Acute Assessment and plan: Patient continues to meet sepsis criteria. He had a Tmax of 100.3 , remains mildly tachycardic. WBC trending down a little. continues to have neutrophils and immature granulocytes on CBC. Source is secondary to aspiration PNA/Empyema. pleural fluid cultures show no growth to date. However this was a poor sample. Blood culutres show NGTD. I will repeat today given his elevated temperature. Lactic acid has not been elevated. Continue Meropenem. Will adjust antibiotics to speciation and sensitivity if we are able to get growth from blood or intraoperative cultures. appreciate the assistance of Pulmonology and CT surgery. (2) Parapneumonic effusion Current Visit: Yes Status: Acute Assessment and plan: as stated above. Exudative given the markedly elevated LDH. we do appreciatate the assistance of Pulmonology and CT surgery. (3) ETOH abuse Current Visit: Yes Status: Acute Assessment and plan: continue Librium and ciwa monitor closely postoperatively. continue Thiamine. (4) COPD (chronic obstructive pulmonary disease) Current Visit: Yes Status: Acute Assessment and plan: Continue duonebs, (5) Pancreatic insufficiency Current Visit: Yes Status: Acute Assessment and plan: creon (6) Leukocytosis Current Visit: Yes Status: Acute Assessment and plan: down trending treatment as stated above. (7) Bandemia Current Visit: Yes Status: Resolved (8) Metabolic encephalopathy Current Visit: Yes Status: Acute Assessment and plan: Likely from a combination of Sepsis and ETOH abuse. improving some. (9) DVT prophylaxis Current Visit: Yes Status: Acute Assessment and plan: SQ lovenox (10) Anemia Current Visit: Yes Status: Acute Assessment and plan: iron deficiency anemia. trending down slightly. Likely from Iv fluids and repeated lab draws. continue to follow Iron supplementation small hematoma around chest tube. I do not think this is contributing much. Continue to monitor closely. (11) Atrial fibrillation Current Visit: Yes Status: Acute Assessment and plan: currently rate controlled on cardizem. I agree with previous assesment that he is not a very good candidate for anticoagulation given his metabolic encephalopathy , chronic ETOH abuse, and high fall risk. (12) Chest tube in place Current Visit: Yes Status: Acute Assessment and plan: Chest tube pulled 02/15/17 (13) Need for management of chest tube Current Visit: Yes Status: Acute Assessment and plan: chest tube DC'd/resolved (14) Hematoma Current Visit: Yes Status: Acute Assessment and plan: Hg stable continue to monitor. (15) Fatty liver Current Visit: Yes Status: Acute Assessment and plan: weight loss low fat diet ETOH cessation No stigmata of cirrhosis on exam. normal INR and albumin on admission. No sonographic evidence of cirrhosis on US. (16) Hypoalbuminemia Current Visit: Yes Status: Acute Assessment and plan: normal on admission. This likely is secondary to hypermetabolic state in acute illness rather than from liver disease. (17) Acute hypoxemic respiratory failure Current Visit: Yes Status: Acute Assessment and plan: secondary to a combination of underlying COPD, Aspiration PNA and empyema. O2 requirements stable. comfortable on todays exam. - Subjective Interval history: Patient had malfunctioning chest tube yesterday and so this was discontinued. I had spoke with Pulmonology this AM anout having IR place a chest tube. However he is now scheduled for a decortication later this afternoon so I will not consult them. The patient remained hemofynamically stable overnight. However he did have a Tmax of 100.3 and remained mildly tachycardic. Today: Mr. Chen complains of continued pain in the right lower chest wall. This is pleuritic in nature. He has continued dyspnea and cough. He states "it hurts too much to take a deep breath however it is much better and tolerable with the pain medications. He has no further complaints or concerns at this time. - Constitutional Vitals: Temp Pulse Resp BP Pulse Ox 98.7 F 102 18 126/76 95 02/16/17 07:33 02/16/17 07:33 02/16/17 09:53 02/16/17 07:33 02/16/17 09:53 General appearance: Present: disheveled, A&O X 2, obese, severe distress ( moderate), answers questions appropriately. Absent: cooperative - Head Head exam: Present: atraumatic, normocephalic - Eye Eye exam: Present: PERRL, conjuntiva pink, sclera anicteric Pupils: Present: PERRL - ENT ENT exam: Present: normal exam - Neck Neck exam general surgery: Present: supple, trachea midline. Absent: lymphadenopathy - Respiratory Respiratory exam: Absent: accessory muscle use, rales, rhonchi, wheezes Additional comments: He has some mild bilateral crepitus at the bases of the lung. Diminished breath sounds in the right lower field. - Cardiovascular Cardiovascular exam: Present: +S1, +S2, tachycardia (regular. Rate 90-low 100s while in the room. ). Absent: diastolic murmur, gallop, rubs, systolic murmur - GI/Abdominal GI/Abdominal exam: Present: normal bowel sounds, soft, no peritoneal signs. Absent: distended, tenderness Additional comments: multiple surgical scars. - Extremities Exam Extremities exam: Present: warm, radial pulses palpable and symetrical. Absent : calf tenderness, cyanotic, pedal edema - Skin Skin exam: Present: dry, intact Internal Medicine: Result - Labs CBC & Chem 7: 02/16/17 02:53 02/16/17 02:53 Labs: Short CBC 02/15/17 02/16/17 Range/Units 16:46 02:53 WBC 17.1 H (4.3-11.1) K/mcL Hgb 9.9 L 9.8 L (12.9-16.9) g/dL Hct 30.7 L 30.7 L (37.5-50.1) % Plt Count 299 (140-400) K/mcL Neutrophils # 12.4 H (1.6-8.9) K/mcL BMP 02/16/17 02:53 Sodium 141 Potassium 4.2 Chloride 113 H Carbon Dioxide 20 BUN 16 Creatinine 0.80 Glucose 98 Calcium 8.4 L - ABG Interpretation ABG results: ABG ABG pH 7.47 pH Units (7.32-7.45) H 02/09/17 04:50 ABG pCO2 28 mmHg (35-45) L 02/09/17 04:50 ABG pO2 48 mmHg (85-104) L* 02/09/17 04:50 ABG O2 Saturation 86 % (95-98) L 02/09/17 04:50 PT/INR, D-dimer PT 15.9 Seconds (9.4-12.1) H 02/15/17 09:40 - Impressions Impressions Chest CT 02/15/17 12:36 IMPRESSION: Moderate size right pleural effusion which is partially loculated. The right thoracic pigtail catheter appears to be within the right lower lobe parenchyma. Repositioning may be considered. Right lower lobe infiltrates which may represent pneumonia versus atelectasis. Borderline enlarged mediastinal lymph nodes likely reactive. D/ / 02/15/2017 13:56:21 Delvis Rodriguez MD / [email or web address] Interpreting Provider: Delvis Rodriguez MD - VTE Documentation of Mechanical Device: Graduated compression elastic hosiery Consult Discharge Plan - Plan Referrals: Emmanuel Gonzalez DO [Resident] - 02/24/17 2:00 pm <Davi Lopez - Last Filed: 02/17/17 07:25> Date of Encounter: 02/17/17 - Assessment and plan (1) Alcohol abuse with alcohol-induced disorder Current Visit: Yes Status: Acute Assessment and plan: Alcohol withdrawal precautions. Continue with thiamine and folate. (2) COPD (chronic obstructive pulmonary disease) Current Visit: Yes Status: Acute Qualifiers: COPD type: COPD with acute exacerbation Qualified Code(s): J44.1 - Chronic obstructive pulmonary disease with (acute) exacerbation (3) Toxic metabolic encephalopathy Current Visit: Yes Status: Acute (4) Coronary artery disease Current Visit: Yes Status: Chronic Qualifiers: Coronary Disease-Associated Artery/Lesion type: [place] artery [place] vs. transplanted heart: [place] heart Associated angina: with unspecified angina Qualified Code(s): I25.119 - Atherosclerotic heart disease of [place] coronary artery with unspecified angina pectoris (5) Essential hypertension Current Visit: Yes Status: Chronic (6) Pancreatic insufficiency Current Visit: Yes Status: Chronic Assessment and plan: Continue Creon with meals. (7) DVT prophylaxis Current Visit: No Status: Acute (8) Elevated WBCs Current Visit: Yes Status: Acute Qualifiers: Leukocytosis type: bandemia Qualified Code(s): D72.825 - Bandemia - Constitutional Vitals: Temp Pulse Resp BP Pulse Ox 98.6 F 94 23 129/57 98 02/16/17 17:00 02/16/17 18:00 02/16/17 18:00 02/16/17 18:00 02/16/17 18:00 - Respiratory Respiratory exam: Present: CTAB. Absent: accessory muscle use, rales, rhonchi, wheezes - Cardiovascular Cardiovascular exam: Present: RRR, +S1, +S2. Absent: diastolic murmur, gallop, rubs, systolic murmur - GI/Abdominal GI/Abdominal exam: Present: normal bowel sounds, soft, no peritoneal signs. Absent: distended, tenderness Internal Medicine: Result - Labs CBC & Chem 7: 02/16/17 17:02 02/17/17 03:30 Labs: Short CBC 02/16/17 02/16/17 Range/Units 02:53 17:02 WBC 17.1 H 21.2 H (4.3-11.1) K/mcL Hgb 9.8 L 8.4 L (12.9-16.9) g/dL Hct 30.7 L 27.7 L (37.5-50.1) % Plt Count 299 411 H (140-400) K/mcL Neutrophils # 12.4 H 17.4 H (1.6-8.9) K/mcL BMP 02/16/17 02:53 Sodium 141 Potassium 4.2 Chloride 113 H Carbon Dioxide 20 BUN 16 Creatinine 0.80 Glucose 98 Calcium 8.4 L - ABG Interpretation ABG results: ABG ABG pH 7.17 pH Units (7.32-7.45) L* 02/16/17 17:31 ABG pCO2 74 mmHg (35-45) H* 02/16/17 17:31 ABG pO2 87 mmHg (85-104) 02/16/17 17:31 ABG O2 Saturation 94 % (95-98) L 02/16/17 17:31 PT/INR, D-dimer PT 15.9 Seconds (9.4-12.1) H 02/15/17 09:40 - Impressions Impressions Chest X-Ray 02/16/17 16:10 IMPRESSION: Findings described. Residual airspace disease right lung base D/ / Jong Colby MD / Jong Colby MD Interpreting Provider: Jong Colby MD X-Ray 02/16/17 16:49 IMPRESSION: NG tube tip and proximal port are within the stomach D/ / Jong Colby MD / Jong Colby MD Interpreting Provider: Jong Colby MD - Attending Attestation I examined this patient on 02/16/2017 and my medical decision-making was reviewed with the Resident Physician, Dr. Zuniga. I agree with the documented findings, disposition and treatment plan as described except to the extent set forth below. Patient is in no acute distress awake alert oriented 2. He appears tachipneic and anxious. Speaking in short sentences. Lung exam reveals diminished breath sounds at the right base. Lower lung crackles. Heart is regular S1-S2. Plan: The patient will go to the ER for thoracotomy due to suspected empyema. We obtained a lactic acid dehydrogenase level fall and the ratio is greater than 5 between the pleural fluid and serum LDH indicating presence of an exudate. Continue broad-spectrum and IV antibiotics with meropenem. He is a high risk for morbidity mortality and complications due to major surgery today.
[2017-02-16] MEDS: Meropenem 1,000 MG in 0.9 % Sodium Chloride Mini Bag 100 ML IVPB SCH ×3 (10:25→23:41)
[2017-02-16] MEDS ORDERED: 0.9 % Sodium Chloride 250 ML ONE (11:07)
[2017-02-16] MEDS ORDERED: *HR* Phenylephrine 10 MG/ML VIAL ONE (11:49)
[2017-02-16] MEDS ORDERED: *HR* Rocuronium Bromide 50 MG/5 ML VIAL ONE ×4 (11:49→15:40)
[2017-02-16] MEDS ORDERED: *HR* Midazolam HCl 5 MG/5 ML VIAL IVP ONE ×3 (11:50→15:44)
[2017-02-16] MEDS ORDERED: *HR* FentaNYL (PF) 250 MCG/5 ML VIAL ONE (11:50)
[2017-02-16] MEDS ORDERED: *HR* Propofol 200 MG/20 ML VIAL IVP ONE (11:50)
[2017-02-16] MEDS ORDERED: Bupivacaine/EPI 1:200k 0.5%PF 30 ML VIAL ONE (12:08)
[2017-02-16] MEDS ORDERED: Heparin 1,000 UNITS/500 mL NS 500 ML ONE (12:17)
[2017-02-16] MEDS ORDERED: Lidocaine 1% 20 ML MDV ONE (12:56)
--- NOTE | 2017-02-16 13:51 | Anesthesia Procedures ---
Date of Encounter: 02/16/17 Time of Encounter: 12:40 Procedures: Anesthesia - Arterial Line Consent obtained: written consent Time out performed: Yes Sedation: Versed (mg): 5 Sedation: Fentanyl (mcg): 150 Supplemental Oxygen via Nasal Cannula (L/min): 2 Local Anesthetic: Lidocaine 1% Amount of Anesthetic used (mls): 2 Size (Gauge): 20 Length (inches): 5 Technique Used: sterile prep, guide wire technique, direct puncture technique Post-Procedure: line sutured into place, dry sterile dressing placed Patient tolerated procedure: well, no complications Complications: none Site: Brachial L Comments: no pulses felt in either upper extremity. Attempt left radial with US without success after several attempts. Able to access artery but can't advance wire. Attempt left brachial, able to access with use of US. 5 inch 20ga catheter placed. - Central Line Placement Right IJ Consent obtained: written consent Time out performed: Yes Patient placed on monitor/pulse ox: Yes Sedation: Versed (mg): 5 Sedation: Fentanyl (mcg): 150 Supplemental Oxygen via Nasal Cannula (L/min): 2 MD prep: mask, gown, gloves Central line prep: Chlorhexidine scrub Ultrasound used for placement: Yes Technique: Seldinger Lumen Inserted: triple Size / Length: 7 Fr / 16 cm Post procedure: sutured in place, good blood return, all ports aspirated, flushed, capped, sterile dressing applied Patient tolerated procedure: well, no complications Complications: none Comments: Patient has no peripheral access. Has a powerwand in the right arm that doesn't flow well enough to use for this procedure. It appears someone tried right IJ access already. Visualized well and placed easily with first attempt.
[2017-02-16] MEDS ORDERED: *HR* Morphine 10 MG/ML VIAL ONE (14:09)
[2017-02-16] MEDS ORDERED: Albumin Human 5% 25.0 GM/500 ML VIAL ONE (14:28)
[2017-02-16] MEDS ORDERED: *HR* OxyCODONE/APAP 5/325 TABLET PO PRN (16:06)
[2017-02-16] MEDS ORDERED: *HR* Morphine 2 MG/ML SYRINGE IVP PRN (16:06)
[2017-02-16] MEDS ORDERED: 0.9 % Sodium Chloride w KCl 20 MEQ/1,000 ML MLS IVC SCH (16:15)
[2017-02-16] MEDS ORDERED: Albuterol 2.5 MG/3 ML NEBULIZER IH SCH (16:15)
--- NOTE | 2017-02-16 16:33 | Operative Note ---
Date of procedure: 02/16/17 Pre-op diagnosis: Right empyema thoracis Post-op diagnosis: same Procedure: 1. Right posterior lateral thoracotomy. 2. Decortication, complete. Implants: None. Complications: None. Anesthesia: RUDY Surgeon: Silver Adams Specimen: 1. Right pleural peel 2. Right pleural effusion (for culture) Condition: stable Disposition: ICU Procedure in Detail: INDICATIONS FOR OPERATION: The patient maranda 61 year old hypertensive alcoholic man with multiple medical additions including CAD, hypercholesterolemia, COPD, cerebrovascular disease, and pancreatic insufficiency. He was transferred to [facility] from the [facility] on February 01, 2017 with confusion. The patient was septic from presumed aspiration pneumonia. He developed acute respiratory failure and required intubation. He also exhibited alcoholic encephalopathy. A follow-up chest CT performed yesterday revealed a loculated right pleural effusion with right lower lobe air-fluid level. The patient was recommended for right thoracotomy and decortication; however, according to the documentation of the chart the patient had cirrhosis with portal hypertension. Initially, the operation was deemed to be too high risk, but after further examination of the chart and review of the EGD which showed no esophageal varices, it was thought that the patient did not have cirrhosis or portal hypertension. The operation was reconsidered and the patient consents to a right thoracotomy with decortication. FINDINGS AT OPERATION: The patient had a thick (5 mm) pleural peel and multiple loculated fluid collections containing a yellow gelatinous material. No jatin pus was observed. The pleural fluid was cultured and sent for aerobic, anaerobic, fungal, and TB cultures. The pleural peel was sent for permanent section. DESCRIPTION OF OPERATION: After obtaining informed Consent from both the patient and the patient's medical power of insurance attorney, he was taken to the operative tumor satisfactory general orotracheal anesthetic was induced. A double-lumen endotracheal tube was inserted as were other appropriate monitoring lines. The patient was then turned in the left lateral decubitus position and his right chest was prepped and draped in a sterile fashion. A standard posterior lateral thoracotomy incision was made through the skin and subcutaneous tissue. The latissimus dorsi muscle group was divided and the serratus anterior muscle group was reflected medially. The fifth intercostal space was identified and opened. Upon entering the right pleural space a thick pleural peel was identified as were multiple loculated fluid collections. These were broken down and the fluid was yellow and gelatinous without evidence of overt infection. A sample of the fluid was sent for aerobic, anaerobic, fungal, and TB cultures. The parietal pleural peel was dissected from the chest wall and removed. The visceral pleural peel was also moved from the right lower lobe, right middle lobe, and right upper lobe of the lung. This was sent for permanent section. The right pleural space was then irrigated with 3 L of warm saline solution. Two 32 Indonesian chest tubes were placed, one anteriorly and one posteriorly. The ribs were reapproximated using #2 Vicryl suture and the serratus anterior muscle group, latissimus dorsi muscle group, and subcutaneous tissue were reapproximated using running Vicryl sutures. The skin edges were reapproximated using chaz. Sterile dressings were applied. The patient was then transferred to the ICU in satisfactory postoperative condition. He remained intubated from the operating room due to poor respiratory effort. There were no intraoperative complications, and the instrument, needle, and sponge count were correct at end of operation.
[2017-02-16] MEDS: Ketorolac 15 MG/ML VIAL IVP SCH ×2 (17:09→23:41)
[2017-02-16 17:10] LABS: Hematocrit 27.7 % (37.5-50.1); Hemoglobin 8.4 g/dL (12.9-16.9); Mean Corpuscular HGB Conc 30.3 g/dL (31.6-35.5); Mean Corpuscular Hemoglobin 26.4 pg (28.0-33.3); Mean Corpuscular Volume 87.1 fL (83.0-100.0); Mean Platelet Volume 9.2 fL (9.4-12.4); Platelet Count 411 K/mcL (140-400); Red Blood Count 3.18 M/mcL (4.19-5.50); Red Cell Distribution Width 20.9 % (11.5-14.5)
[2017-02-16 17:44] LABS: ABG Base Excess -2.3 mEq/L (-2.0 to 3.0); ABG Oxygen Saturation 94 % (95-98); ABG PO2 87 mmHg (85-104); ABG TCO2 29.3 mEq/L (20-26)
[2017-02-16 17:48] LABS: ABG PCO2 74 mmHg (35-45); ABG PH 7.17 pH Units (7.32-7.45); Blood Gas FiO2 50 %
[2017-02-16 17:52] LABS: Lymphocytes # 1.3 K/mcL (0.6-4.6); Monocytes # 2.5 K/mcL (0.0-1.3); Neutrophils # 17.4 K/mcL (1.6-8.9)
[2017-02-16 17:53] LABS: Reactive Lymphocytes Present (Not Present)
[2017-02-16 17:54] LABS: Platelet Estimate Normal (Normal); Toxic Granulation Present (Not Present)
[2017-02-16] MEDS: FentaNYL (PF) 1,000 MCG in 0.9 % Sodium Chloride 80 ML IVC SCH (18:45)
[2017-02-16 19:56] LABS: ABG Base Excess -0.5 mEq/L (-2.0 to 3.0); ABG HCO3 25.8 mEQ/L (21-27); ABG Oxygen Saturation 97 % (95-98); ABG PCO2 49 mmHg (35-45); ABG PH 7.33 pH Units (7.32-7.45); ABG PO2 100 mmHg (85-104); ABG TCO2 27.3 mEq/L (20-26)
[2017-02-16 19:57] LABS: Blood Gas FiO2 50 %
[2017-02-16] MEDS: Dexmedetomidine HCl 400 MCG/100 ML MLS IVC SCH (20:03)
[2017-02-16] MEDS ORDERED: 0.9 % Sodium Chloride 500 ML IVC ONE (23:33)
[2017-02-16] MEDS: Valproic Acid Oral Soln 250 MG/5 ML UDC GTUBE SCH (23:41)
[2017-02-17] MEDS: dilTIAZem HCl 60 MG TABLET PO SCH ×4 (00:07→22:50)
[2017-02-17] MEDS ORDERED: Acetaminophen 650 MG RECTAL SUPP RC PRN (00:36)
[2017-02-17] MEDS: ceFAZolin 2,000 MG in D5% in Water 100 ML IVPB SCH ×2 (01:03→08:52)
[2017-02-17] MEDS ORDERED: Ketorolac 15 MG/ML VIAL IVP STA (01:13)
[2017-02-17] MEDS ORDERED: Norepinephrine 4 MG in D5% in Water 250 ML IVC SCH (01:15)
[2017-02-17] MEDS: FentaNYL (PF) 1,000 MCG in 0.9 % Sodium Chloride 80 ML IVC SCH ×2 (01:21→19:52)
[2017-02-17 03:44] LABS: Ionized Calcium 0.95 mmol/L (1.15-1.35)
[2017-02-17 04:00] LABS: ABG Base Excess -0.4 mEq/L (-2.0 to 3.0); ABG HCO3 24.8 mEQ/L (21-27); ABG Oxygen Saturation 98 % (95-98); ABG PCO2 42 mmHg (35-45); ABG PH 7.38 pH Units (7.32-7.45); ABG PO2 104 mmHg (85-104); ABG TCO2 26.1 mEq/L (20-26); Blood Gas FiO2 40 %
[2017-02-17 04:54] LABS: Alanine Aminotransferase 78 Units/L (0-55); Albumin 2.5 g/dL (3.5-5.0); Albumin/Globulin Ratio 0.7 (1.1-2.2); Alkaline Phosphatase 155 Units/L (38-126); Aspartate Amino Transferase 141 Units/L (5-34); BUN/Creatinine Ratio 20 (6-26); Blood Urea Nitrogen 18 mg/dL (8-26); Calcium 8.3 mg/dL (8.6-10.8); Carbon Dioxide 22 mEq/L (19-29); Chloride 114 mEq/L (98-109); Globulin 3.8 g/dL (2.4-3.5); Glucose 125 mg/dL (70-99); Magnesium 2.2 mg/dL (1.6-2.6); Osmolality,Calculated 299 (280-300); Potassium 4.1 mEq/L (3.5-4.5); Sodium 143 mEq/L (136-145); Total Protein 6.3 g/dL (6.0-8.3); eGFR For African Americans > 60 (> 60); eGFR For Non-African Americans > 60 (> 60)
[2017-02-17] MEDS: *HR* Enoxaparin 40 MG/0.4 ML SYRINGE SQ SCH (05:00)
[2017-02-17] MEDS: Valproic Acid Oral Soln 250 MG/5 ML UDC GTUBE SCH (05:00)
[2017-02-17] MEDS: Ketorolac 15 MG/ML VIAL IVP SCH ×4 (05:00→23:36)
[2017-02-17] MEDS ORDERED: Calcium Gluconate 2,000 MG in D5% in Water 100 ML IVPB ONE (05:17)
[2017-02-17] MEDS: Dexmedetomidine HCl 400 MCG/100 ML MLS IVC SCH ×2 (06:38→16:30)
--- NOTE | 2017-02-17 06:58 | Cardiothoracic Progress Note ---
Date of Encounter: 02/17/17 Time of Encounter: 06:56 - Assessment and plan (1) Pleural effusion Current Visit: Yes Status: Acute The patient remained hemodynamic stable overnight. He is intubated; however, breathing comfortably and will probably be extubated later this morning. The chest tube should remain in place for several days to allow complete drainage of the remaining/ongoing effusion. He may be transferred to the stepdown unit when appropriate. I agree with the chest tube insertion and lytic therapy to open resolve the effusion. The assessment and plan as outlined above was discussed with the patient and/or family members who expressed understanding and agreement. All questions were answered. - Subjective Procedure(s) Performed: POD #1 S/P Right thoracotomy with decortication Interval history: The patient remained him in a stable overnight. He is currently intubated; however, he is awake, appropriate, and breathing comfortably. Vital Signs, Last 4 Hours Temp Pulse Resp BP Pulse Ox 02/17/17 06:11 79 28 138/67 100 02/17/17 05:46 20 117/59 100 02/17/17 05:02 78 27 101/55 100 02/17/17 04:00 98.6 F 80 19 95/49 98 02/17/17 03:39 21 95/48 99 02/17/17 03:30 79 19 98/50 99 Oxgyen Flow Rate Oxygen Flow Rate (LPM) 3 Clinical Data, last 8 Hours Output, Chest Tube Drainage 180 Amount [Right Lateral Chest #2 ] Output, Chest Tube Drainage 12 Amount [Right] Weight 02/15/17 02/16/17 02/17/17 23:59 23:59 23:59 Weight 99.8 kg 95.481 kg - Physical Examination General: Conversant, No Apparent Distress Neck: No JVD, Normal carotid pulses Cardiac: Reg Rate and Rhythm, Normal S1 and S2, No Murmur Incision: No signs of infection, Dry/intact dressing Chest tubes: Minimal drainage, Other (No air leak.) Lungs: Normal Breath Sounds, No Wheeze, Rales, Rhonchi Neuro: Alert and responsive, No focal deficits noted Vascular: Normal capillary refill Extremities: No Clubbing, No Cyanosis, No Edema - Labs 02/16/17 17:02 02/17/17 03:30 Lab Results, Last 24 hours 02/16/17 02/17/17 17:02 03:30 WBC 21.2 H Hgb 8.4 L Hct 27.7 L Plt Count 411 H Sodium 143 Potassium 4.1 Chloride 114 H Carbon Dioxide 22 BUN 18 Creatinine 0.92 Glucose 125 H Calcium 8.3 L Magnesium 2.2 Total Bilirubin 2.0 H D AST 141 H ALT 78 H Alkaline Phosphatase 155 H - Imaging Chest Xray: image reviewed (No pneumothorax. Right lower lobe atelectasis.) - VTE Documentation of Mechanical Device: Intermittent pneumatic compression device Consult Discharge Plan - Plan Referrals: Emmanuel Gonzalez DO [Resident] - 02/24/17 2:00 pm
[2017-02-17] MEDS: Budesonide/Formoterol 160/4.5 MDI IH SCH ×2 (07:52→20:28)
[2017-02-17] MEDS: traZODone 50 MG TABLET PO SCH ×2 (08:00→19:56)
[2017-02-17] MEDS: amLODIPine 5 MG TABLET PO SCH (08:00)
[2017-02-17] MEDS: Sucralfate 1 GM TABLET PO SCH ×3 (08:00→16:31)
[2017-02-17] MEDS: Thiamine (B-1) 100 MG TABLET PO SCH (08:00)
[2017-02-17] MEDS: Lactobacillus 1 EACH CAP.SPRINK PO SCH ×2 (08:00→19:56)
[2017-02-17] MEDS: Meropenem 1,000 MG in 0.9 % Sodium Chloride Mini Bag 100 ML IVPB SCH ×3 (08:51→22:54)
[2017-02-17] MEDS: Ringers Solution, Lactated 1,000 ML IVC SCH ×3 (08:51→22:57)
[2017-02-17] MEDS: Nicotine 21 MG PATCH.TD24 TD SCH (08:52)
[2017-02-17 09:28] LABS: Eosinophils % 0.1 %; Hematocrit 23.4 % (37.5-50.1); Hemoglobin 7.2 g/dL (12.9-16.9); Immature Granulocytes % 2.2 % (0-4); Lymphocytes # 1.1 K/mcL (0.6-4.6); Lymphocytes % 5.2 %; Mean Corpuscular HGB Conc 30.8 g/dL (31.6-35.5); Mean Corpuscular Volume 87.6 fL (83.0-100.0); Mean Platelet Volume 9.9 fL (9.4-12.4); Monocytes # 1.7 K/mcL (0.0-1.3); Monocytes % 8.2 %; Neutrophils # 17.2 K/mcL (1.6-8.9); Platelet Count 363 K/mcL (140-400); Red Blood Count 2.67 M/mcL (4.19-5.50); Red Cell Distribution Width 20.5 % (11.5-14.5); Segmented Neutrophils % 84.3 %
--- NOTE | 2017-02-17 10:02 | Pulmonology Progress Note ---
Date of Encounter: 02/17/17 Time of Encounter: 10:02 Assessment and Plan (1) Empyema lung Current Visit: Yes Status: Acute 61-year-old gentleman with a history of alcohol abuse and liver cirrhosis with concern for underlying portal hypertension who presented with severe sepsis secondary to right and sided empyema status POD1 riight surgical decortication. Neuropsych: Intermittently confused but can be directable. cont to hold sedatives. Pulm: Right empyema status post surgical drainage chest tubes in place managed by cardiothoracic surgery wean FiO2 to keep saturation greater than 89% continue metered-dose inhaler for COPD along with bronchodilators as needed Cards: Hemodynamically stable continue to monitor FEN-GI: Advance diet as tolerated after bedside speech and swallow eval. Slight elevation in liver transaminases at this point we will monitor. History of ethanol abuse with underlying cirrhosis Renal: No evidence of AK appropriate urine output continue to monitor replace lites per protocol ID: Right empyema has undergone decortication persistent leukocytosis but now actually down trending continue on meropenem for coverage cultures thus far without growth Heme/Onc: Continue DVT prophylaxis with Lovenox. Platelets are stable H&H slightly decreased overnight likely postop effect will transfuse for drop below 7.0 Endo: Glucoses monitored Integ/MSK: Continue ICU nursing protocol for her skin care management to prevent skin ulcers CODE: Full (2) Acute respiratory failure Current Visit: No Status: Acute Qualifiers: Respiratory failure complication: hypoxia Qualified Code(s): J96.01 - Acute respiratory failure with hypoxia (3) Protein malnutrition Current Visit: No Status: Chronic (4) Sepsis Current Visit: Yes Status: Acute Qualifiers: Sepsis type: sepsis due to unspecified organism Qualified Code(s): A41.9 - Sepsis, unspecified organism (5) ETOH abuse Current Visit: Yes Status: Acute Subjective Principal diagnosis: acute respiratory failure Interval history: Patient was liberated from the ventilator this morning to noninvasive positive pressure ventilation and subsequently has been weaned to nasal cannula O2. He is able to tolerate some food at this time. He is intermittently confused and agitated although appears to be improving as well he was noted to earlier tear on his central venous catheter. He is still endorsing some pain at the chest tube site chest tubes remain in situ with modest amount of bloody discharge. He remains afebrile Objective PUL Vital signs: Last Vital Signs Temp 98.1 F 02/17/17 08:01 Pulse 75 02/17/17 09:43 Resp 23 02/17/17 09:43 BP 102/48 02/17/17 09:43 Pulse Ox 98 02/17/17 09:43 General appearance: no acute distress ENT: oropharynx dry Auscultation: right: diminished breath sounds Cardiovascular: regular rate and rhythm Gastrointestinal: normoactive bowel sounds, non-tender Extremities: edema non-focal exam, pupils equal and round, other (Alert to person and self he is confused at times) Ventilator Settings Ventilator Settings: Ventilator Settings, Last 8 Hours Ventilator Mode CPAP Ventilator Mode CPAP Ventilator Mode CPAP Ventilator Mode A/C Ventilator Mode CPAP Ventilator Mode CPAP Ventilator Mode A/C Ventilator Mode A/C Ventilator Mode A/C Ventilator Mode A/C Ventilator Mode A/C Ventilator Mode A/C Ventilator Mode A/C Ventilator Tidal Volume 450 Setting Ventilator Tidal Volume 450 Setting Ventilator Tidal Volume 450 Setting Ventilator Tidal Volume 450 Setting Ventilator Tidal Volume 450 Setting Ventilator Tidal Volume 450 Setting Ventilator Tidal Volume 450 Setting Ventilator Tidal Volume 450 Setting Ventilator Respiratory Rate 12 Setting Ventilator Respiratory Rate 16 Setting Ventilator Respiratory Rate 16 Setting Ventilator Respiratory Rate 16 Setting Ventilator Respiratory Rate 16 Setting Ventilator Respiratory Rate 16 Setting Ventilator Respiratory Rate 16 Setting Ventilator Respiratory Rate 16 Setting Actual Respiratory Rate 14 Actual Respiratory Rate 28 Actual Respiratory Rate 20 Actual Respiratory Rate 26 Actual Respiratory Rate 19 Actual Respiratory Rate 21 Actual Respiratory Rate 19 Actual Respiratory Rate 20 Actual Respiratory Rate 18 Positive End Expiratory 5 Pressure Positive End Expiratory 5 Pressure Positive End Expiratory 5 Pressure Positive End Expiratory 5 Pressure Positive End Expiratory 5 Pressure Positive End Expiratory 5 Pressure Positive End Expiratory 5 Pressure Positive End Expiratory 5 Pressure Positive End Expiratory 5 Pressure Positive End Expiratory 5 Pressure Positive End Expiratory 5 Pressure Peak Inspiratory Airway 11 Pressure Peak Inspiratory Airway 15 Pressure Peak Inspiratory Airway 15 Pressure Peak Inspiratory Airway 14 Pressure Peak Inspiratory Airway 14 Pressure Results - Laboratory Findings CBC and BMP: 02/17/17 09:15 02/17/17 03:30 ABG ABG pH 7.38 pH Units (7.32-7.45) 02/17/17 03:43 ABG pCO2 42 mmHg (35-45) 02/17/17 03:43 ABG pO2 104 mmHg (85-104) 02/17/17 03:43 ABG O2 Saturation 98 % (95-98) 02/17/17 03:43 PT/INR, D-dimer PT 15.9 Seconds (9.4-12.1) H 02/15/17 09:40 Abnormal lab findings: Abnormal lab results WBC 20.3 K/mcL (4.3-11.1) H 02/17/17 09:15 RBC 2.67 M/mcL (4.19-5.50) L 02/17/17 09:15 Hgb 7.2 g/dL (12.9-16.9) L 02/17/17 09:15 Hct 23.4 % (37.5-50.1) L 02/17/17 09:15 MCH 27.0 pg (28.0-33.3) L 02/17/17 09:15 MCHC 30.8 g/dL (31.6-35.5) L 02/17/17 09:15 RDW 20.5 % (11.5-14.5) H 02/17/17 09:15 Metamyelocytes % 2.0 % (0) H 02/14/17 09:00 Myelocytes % 2.0 % (0) H 02/10/17 04:20 Promyelocytes % 4.0 % (0) H 02/12/17 05:23 Neutrophils # 17.2 K/mcL (1.6-8.9) H 02/17/17 09:15 Monocytes # 1.7 K/mcL (0.0-1.3) H 02/17/17 09:15 Nucleated RBCs/100 WBC 0.2 /100 WBC (0) H 02/14/17 09:00 Reactive Lymphocytes Present (Not Present) A 02/16/17 17:02 Toxic Granulation Present (Not Present) A 02/16/17 17:02 Dohle Bodies Present (Not Present) A 02/10/17 04:20 Clumped Platelets Few (Not Present) A 02/16/17 02:53 Large Platelets Present (Not Present) A 02/13/17 00:35 Polychromasia 1+ (Not Present) A 02/14/17 09:00 Anisocytosis 1+ (Not Present) A 02/16/17 02:53 Microcytosis Present (Not Present) A 02/12/17 05:23 PT 15.9 Seconds (9.4-12.1) H 02/15/17 09:40 ABG Total CO2 26.1 mEq/L (20-26) H 02/17/17 03:43 VBG pH 7.56 pH Units (7.32-7.42) H 02/01/17 20:30 VBG pCO2 25 mmHg (41-51) L 02/01/17 20:30 VBG pO2 111 mmHg (25-40) H 02/01/17 20:30 Chloride 114 mEq/L (98-109) H 02/17/17 03:30 Glucose 125 mg/dL (70-99) H 02/17/17 03:30 POC Glucose 122 (58-89) H 02/16/17 16:07 Calcium 8.3 mg/dL (8.6-10.8) L 02/17/17 03:30 Ionized Calcium 0.95 mmol/L (1.15-1.35) L 02/17/17 03:30 % Saturation 14 % (20-55) L 02/04/17 12:19 Total Bilirubin 2.0 mg/dL (0.2-1.2) H D 02/17/17 03:30 Direct Bilirubin 0.6 mg/dL (0.0-0.5) H 02/06/17 11:14 AST 141 Units/L (5-34) H 02/17/17 03:30 ALT 78 Units/L (0-55) H 02/17/17 03:30 Alkaline Phosphatase 155 Units/L (38-126) H 02/17/17 03:30 Lactate Dehydrogenase 155 Units/L (159-327) L 02/15/17 03:56 Albumin 2.5 g/dL (3.5-5.0) L 02/17/17 03:30 Globulin 3.8 g/dL (2.4-3.5) H 02/17/17 03:30 Albumin/Globulin Ratio 0.7 (1.1-2.2) L 02/17/17 03:30 LDL Cholesterol, Calc 119 mg/dL (0-99) H 02/01/17 20:30 Lipase 5 Units/L (8-78) L 02/06/17 11:14 TSH 5.937 mcIU/mL (0.350-4.840) H 02/02/17 02:38 Free T3 3.73 pg/mL (1.71-3.71) H 02/03/17 13:25 Urine Protein 30 mg/dL (Neg-Trace) H 02/13/17 16:00 Urine Blood Trace (Negative) H 02/13/17 16:00 Urine Urobilinogen 2.0 mg/dL (Normal) H 02/13/17 16:00 Urine Microscopic RBC 5-15 per hpf (0-3) H 02/13/17 16:00 Pleural Appearance Bloody (Clear) A 02/14/17 15:00 Pleural RBC 0.346 M/mcL (0.000-0.002) H 02/14/17 15:00 Urine Opiates Screen Positive ng/mL (Anrzxb=559) H 02/05/17 21:05 Free Valproic Acid <7 ug/mL (7-23) L 02/01/17 20:30 Total Valproic Acid <7 ug/mL (50-125) L 02/01/17 20:30 U Benzodiazepines Scrn Positive ng/mL (Mhbgke=444) H 02/05/17 21:05 Hepatitis C Ab Screen Reactive (Nonreactive) H 02/04/17 12:19 - Microbiology Findings Microbiology Findings: Microbiology, Last 48 Hours 02/16/17 Unknown Wound Culture - Preliminary Other-Specify in Comments No growth. 02/14/17 15:00 Body Fluid Culture - Preliminary Pleural Fluid 02/15/17 09:40 Blood Culture - Preliminary Peripheral Venipuncture No growth. 02/14/17 09:00 Blood Culture - Preliminary Peripheral Venipuncture No growth. - Clinical Findings Intake & Output: Intake & Output 02/16/17 02/17/17 02/17/17 23:59 07:59 15:59 Intake Total 255 / 255 1467.6 / 1467.6 Output Total 2543 / 2543 602 / 602 425 / 425 Balance -2288 / -2288 865.6 / 865.6 -425 / -425 Weight 95.481 kg - VTE Documentation of Mechanical Device: Intermittent pneumatic compression device Consult Discharge Plan - Plan Referrals: Emmanuel Gonzalez DO [Resident] - 02/24/17 2:00 pm
[2017-02-17] MEDS: Pantoprazole 40 MG VIAL IVP SCH (11:02)
[2017-02-17] MEDS: Valproic Acid INJ 500 MG in 0.9 % Sodium Chloride 100 ML IVPB SCH ×2 (11:52→23:30)
[2017-02-17] MEDS: *HR* Morphine 2 MG/ML SYRINGE IVP PRN ×2 (14:58→18:20)
[2017-02-17] MEDS ORDERED: 0.9 % Sodium Chloride 1,000 ML IVC ONE (19:41)
[2017-02-18 03:43] LABS: Basophils % 0.1 %; Eosinophils # 0.1 K/mcL (0.0-0.6); Eosinophils % 0.3 %; Hematocrit 21.3 % (37.5-50.1); Hemoglobin 6.7 g/dL (12.9-16.9); Immature Granulocytes % 3.4 % (0-4); Lymphocytes # 1.5 K/mcL (0.6-4.6); Lymphocytes % 8.6 %; Mean Corpuscular HGB Conc 31.5 g/dL (31.6-35.5); Mean Corpuscular Hemoglobin 26.7 pg (28.0-33.3); Mean Corpuscular Volume 84.9 fL (83.0-100.0); Mean Platelet Volume 9.7 fL (9.4-12.4); Monocytes # 1.1 K/mcL (0.0-1.3); Monocytes % 6.2 %; Neutrophils # 14.1 K/mcL (1.6-8.9); Platelet Count 393 K/mcL (140-400); Red Blood Count 2.51 M/mcL (4.19-5.50); Red Cell Distribution Width 19.8 % (11.5-14.5); Segmented Neutrophils % 81.4 %
[2017-02-18 03:45] LABS: BUN/Creatinine Ratio 24 (6-26); Blood Urea Nitrogen 16 mg/dL (8-26); Calcium 7.8 mg/dL (8.6-10.8); Carbon Dioxide 22 mEq/L (19-29); Chloride 110 mEq/L (98-109); Glucose 95 mg/dL (70-99); Osmolality,Calculated 287 (280-300); Potassium 3.5 mEq/L (3.5-4.5); Sodium 138 mEq/L (136-145); eGFR For African Americans > 60 (> 60); eGFR For Non-African Americans > 60 (> 60)
[2017-02-18] MEDS: Ibuprofen 600 MG TABLET PO PRN (04:23)
[2017-02-18] MEDS: *HR* Enoxaparin 40 MG/0.4 ML SYRINGE SQ SCH (04:52)
[2017-02-18] MEDS: Ketorolac 15 MG/ML VIAL IVP SCH ×3 (04:52→18:05)
--- NOTE | 2017-02-18 07:20 | Cardiothoracic Progress Note ---
Date of Encounter: 02/18/17 Time of Encounter: 07:18 - Assessment and plan (1) Pleural effusion Current Visit: Yes Status: Acute The patient remained hemodynamic stable overnight. He is extubated and breathing comfortably. The chest tube should remain in place for several days to allow complete drainage of the remaining/ongoing effusion. He may be transferred to the stepdown unit when appropriate. The assessment and plan as outlined above was discussed with the patient and/or family members who expressed understanding and agreement. All questions were answered. - Subjective Procedure(s) Performed: POD #2 S/P Right thoracotomy with decortication Interval history: The patient remained him in a stable overnight. He is currently extubated and breathing comfortably. He has some postoperative incisional discomfort this morning. Vital Signs, Last 4 Hours Temp Pulse Resp BP Pulse Ox 02/18/17 06:00 98 16 99/43 97 02/18/17 04:49 104 24 98/42 97 02/18/17 03:51 101.9 F H 102 25 117/45 96 Oxgyen Flow Rate Oxygen Flow Rate (LPM) 2 Clinical Data, last 8 Hours Output, Chest Tube Drainage 0 Amount [Right Lateral Chest #2 ] Output, Chest Tube Drainage 20 Amount [Right Lateral Chest #2 ] Output, Chest Tube Drainage 50 Amount [Right Lateral Chest #2 ] Output, Chest Tube Drainage 0 Amount [Right] Output, Chest Tube Drainage 0 Amount [Right] Output, Chest Tube Drainage 0 Amount [Right] Output, Urine Amount [Urethral 300 (Boggs)] Output, Urine Amount [Urethral 300 (Boggs)] Weight 02/16/17 02/17/17 02/18/17 23:59 23:59 23:59 Weight 95.481 kg 99.337 kg - Physical Examination General: Conversant, No Apparent Distress Neck: No JVD, Normal carotid pulses Cardiac: Reg Rate and Rhythm, Normal S1 and S2, No Murmur Incision: No signs of infection, Dry/intact dressing Chest tubes: Minimal drainage, Other (No air leak.) Lungs: Normal Breath Sounds, No Wheeze, Rales, Rhonchi Neuro: Alert and responsive, No focal deficits noted Vascular: Normal capillary refill Extremities: No Clubbing, No Cyanosis, No Edema - Labs 02/18/17 03:23 02/18/17 03:23 Lab Results, Last 24 hours 0502/18/17 02/18/17 09:15 03:23 03:23 WBC 20.3 H 17.4 H Hgb 7.2 L 6.7 L Hct 23.4 L 21.3 L Plt Count 363 393 Sodium 138 Potassium 3.5 Chloride 110 H Carbon Dioxide 22 BUN 16 Creatinine 0.67 L Glucose 95 Calcium 7.8 L - Imaging Chest Xray: image reviewed (No pneumothorax. Right lower lobe atelectasis/ infiltrate, unchanged.) - VTE Documentation of Mechanical Device: Intermittent pneumatic compression device Consult Discharge Plan - Plan Referrals: Emmanuel Gonzalez DO [Resident] - 02/24/17 2:00 pm
[2017-02-18] MEDS: Budesonide/Formoterol 160/4.5 MDI IH SCH ×2 (07:49→20:46)
[2017-02-18] MEDS: Meropenem 1,000 MG in 0.9 % Sodium Chloride Mini Bag 100 ML IVPB SCH ×2 (07:57→17:35)
[2017-02-18] MEDS: Pantoprazole 40 MG VIAL IVP SCH (07:57)
[2017-02-18] MEDS: Sucralfate 1 GM TABLET PO SCH ×3 (07:58→16:19)
[2017-02-18] MEDS: amLODIPine 5 MG TABLET PO SCH (07:58)
[2017-02-18] MEDS: Lactobacillus 1 EACH CAP.SPRINK PO SCH ×2 (07:59→19:56)
[2017-02-18] MEDS: traZODone 50 MG TABLET PO SCH (07:59)
[2017-02-18] MEDS: Thiamine (B-1) 100 MG TABLET PO SCH (07:59)
[2017-02-18] MEDS: dilTIAZem HCl 60 MG TABLET PO SCH (07:59)
[2017-02-18] MEDS: Nicotine 21 MG PATCH.TD24 TD SCH (07:59)
[2017-02-18] MEDS: *HR* Morphine 2 MG/ML SYRINGE IVP PRN (08:03)
[2017-02-18] MEDS: Dexmedetomidine HCl 400 MCG/100 ML MLS IVC SCH (09:26)
--- NOTE | 2017-02-18 09:55 | Pulmonology Progress Note ---
Date of Encounter: 02/18/17 Time of Encounter: 09:55 Assessment and Plan (1) Empyema lung Current Visit: Yes Status: Acute 61-year-old gentleman with a history of alcohol abuse and liver cirrhosis with concern for underlying portal hypertension who presented with severe sepsis secondary to right and sided empyema status POD1 riight surgical decortication. Neuropsych: Awake and alert today continue to focus on sleep-wake cycle continue atypical antipsychotics for agitation control no evidence of withdrawal on exam today. Pulm: Right empyema status post surgical drainage chest tubes in place managed by cardiothoracic surgery wean when FiO2 as able and continue bronchodilator therapy Cards: I have held his calcium channel jo ann for viral hypotension this morning can reinstitute on an as-needed basis FEN-GI: Diet advanced. Slight elevation in liver transaminases with right upper quadrant tenderness I suspect the tenderness is likely more related to chest tube placement and empyema but we will repeat his LFTs today could consider a right upper quadrant ultrasound if clinical suspicion remains later in the day. History of ethanol abuse with underlying cirrhosis Renal: No evidence of SHELLEY appropriate urine output continue to monitor replace lytes per protocol ID: Right empyema has undergone decortication WBC count trending down he remains on meropenem Heme/Onc: Continue DVT prophylaxis with Lovenox. Slight drop in H&H overnight without overt signs of bleeding replacing 2 units PRBCs today Endo: Glucose monitored Integ/MSK: Continue ICU nursing protocol for her skin care management to prevent skin ulcers CODE: Full Stable for transfer to stepdown unit for ongoing care (2) Acute respiratory failure Current Visit: No Status: Acute Qualifiers: Respiratory failure complication: hypoxia Qualified Code(s): J96.01 - Acute respiratory failure with hypoxia (3) Protein malnutrition Current Visit: No Status: Chronic (4) Sepsis Current Visit: Yes Status: Acute Qualifiers: Sepsis type: sepsis due to unspecified organism Qualified Code(s): A41.9 - Sepsis, unspecified organism (5) ETOH abuse Current Visit: Yes Status: Acute Subjective Principal diagnosis: acute respiratory failure Interval history: Did relatively well overnight was borderline hypotensive likely related to medication for blood pressure along with IV pain medication. He is still complaining of significant right sided pain related to chest tube placement. Objective PUL Vital signs: Last Vital Signs Temp 97.7 F 02/18/17 08:29 Pulse 78 02/18/17 09:27 Resp 20 02/18/17 09:27 BP 101/50 02/18/17 09:27 Pulse Ox 95 02/18/17 09:27 General appearance: appears uncomfortable Auscultation: right: diminished breath sounds, bilateral: rhonchi Cardiovascular: regular rate and rhythm Gastrointestinal: normoactive bowel sounds, tender (Right upper quadrant) non-focal exam, pupils equal and round, other (I am able to converse with him today and he is appropriate with answering all my questions he still appears to have some mild amount of ongoing delirium) Results - Laboratory Findings CBC and BMP: 02/18/17 03:23 02/18/17 03:23 ABG ABG pH 7.38 pH Units (7.32-7.45) 02/17/17 03:43 ABG pCO2 42 mmHg (35-45) 02/17/17 03:43 ABG pO2 104 mmHg (85-104) 02/17/17 03:43 ABG O2 Saturation 98 % (95-98) 02/17/17 03:43 PT/INR, D-dimer PT 15.9 Seconds (9.4-12.1) H 02/15/17 09:40 Abnormal lab findings: Abnormal lab results WBC 17.4 K/mcL (4.3-11.1) H 02/18/17 03:23 RBC 2.51 M/mcL (4.19-5.50) L 02/18/17 03:23 Hgb 6.7 g/dL (12.9-16.9) L 02/18/17 03:23 Hct 21.3 % (37.5-50.1) L 02/18/17 03:23 MCH 26.7 pg (28.0-33.3) L 02/18/17 03:23 MCHC 31.5 g/dL (31.6-35.5) L 02/18/17 03:23 RDW 19.8 % (11.5-14.5) H 02/18/17 03:23 Metamyelocytes % 2.0 % (0) H 02/14/17 09:00 Myelocytes % 2.0 % (0) H 02/10/17 04:20 Promyelocytes % 4.0 % (0) H 02/12/17 05:23 Neutrophils # 14.1 K/mcL (1.6-8.9) H 02/18/17 03:23 Nucleated RBCs/100 WBC 0.2 /100 WBC (0) H 02/14/17 09:00 Reactive Lymphocytes Present (Not Present) A 02/16/17 17:02 Toxic Granulation Present (Not Present) A 02/16/17 17:02 Dohle Bodies Present (Not Present) A 02/10/17 04:20 Clumped Platelets Few (Not Present) A 02/16/17 02:53 Large Platelets Present (Not Present) A 02/13/17 00:35 Polychromasia 1+ (Not Present) A 02/14/17 09:00 Anisocytosis 1+ (Not Present) A 02/16/17 02:53 Microcytosis Present (Not Present) A 02/12/17 05:23 PT 15.9 Seconds (9.4-12.1) H 02/15/17 09:40 ABG Total CO2 26.1 mEq/L (20-26) H 02/17/17 03:43 VBG pH 7.56 pH Units (7.32-7.42) H 02/01/17 20:30 VBG pCO2 25 mmHg (41-51) L 02/01/17 20:30 VBG pO2 111 mmHg (25-40) H 02/01/17 20:30 Chloride 110 mEq/L (98-109) H 02/18/17 03:23 Creatinine 0.67 mg/dL (0.72-1.25) L 02/18/17 03:23 POC Glucose 109 (58-89) H 02/17/17 15:39 Calcium 7.8 mg/dL (8.6-10.8) L 02/18/17 03:23 Ionized Calcium 0.95 mmol/L (1.15-1.35) L 02/17/17 03:30 % Saturation 14 % (20-55) L 02/04/17 12:19 Total Bilirubin 2.0 mg/dL (0.2-1.2) H D 02/17/17 03:30 Direct Bilirubin 0.6 mg/dL (0.0-0.5) H 02/06/17 11:14 AST 141 Units/L (5-34) H 02/17/17 03:30 ALT 78 Units/L (0-55) H 02/17/17 03:30 Alkaline Phosphatase 155 Units/L (38-126) H 02/17/17 03:30 Lactate Dehydrogenase 155 Units/L (159-327) L 02/15/17 03:56 Albumin 2.5 g/dL (3.5-5.0) L 02/17/17 03:30 Globulin 3.8 g/dL (2.4-3.5) H 02/17/17 03:30 Albumin/Globulin Ratio 0.7 (1.1-2.2) L 02/17/17 03:30 LDL Cholesterol, Calc 119 mg/dL (0-99) H 02/01/17 20:30 Lipase 5 Units/L (8-78) L 02/06/17 11:14 TSH 5.937 mcIU/mL (0.350-4.840) H 02/02/17 02:38 Free T3 3.73 pg/mL (1.71-3.71) H 02/03/17 13:25 Urine Protein 30 mg/dL (Neg-Trace) H 02/13/17 16:00 Urine Blood Trace (Negative) H 02/13/17 16:00 Urine Urobilinogen 2.0 mg/dL (Normal) H 02/13/17 16:00 Urine Microscopic RBC 5-15 per hpf (0-3) H 02/13/17 16:00 Pleural Appearance Bloody (Clear) A 02/14/17 15:00 Pleural RBC 0.346 M/mcL (0.000-0.002) H 02/14/17 15:00 Urine Opiates Screen Positive ng/mL (Eewuog=012) H 02/05/17 21:05 Free Valproic Acid <7 ug/mL (7-23) L 02/01/17 20:30 Total Valproic Acid <7 ug/mL (50-125) L 02/01/17 20:30 U Benzodiazepines Scrn Positive ng/mL (Fjdrmo=362) H 02/05/17 21:05 Hepatitis C Ab Screen Reactive (Nonreactive) H 02/04/17 12:19 - Microbiology Findings Microbiology Findings: Microbiology, Last 48 Hours 02/13/17 00:35 Blood Culture - Final Peripheral Venipuncture No growth. 02/13/17 00:37 Blood Culture - Final Peripheral Venipuncture No growth. 05/01/17 10:43 Blood Culture - Preliminary Peripheral Venipuncture No growth. 02/16/17 10:43 Blood Culture - Preliminary Peripheral Venipuncture No growth. 02/14/17 15:00 Body Fluid Culture - Final Pleural Fluid 02/16/17 Unknown Wound Culture - Preliminary Other-Specify in Comments No growth. 02/15/17 09:40 Blood Culture - Preliminary Peripheral Venipuncture No growth. 02/14/17 09:00 Blood Culture - Preliminary Peripheral Venipuncture No growth. - Clinical Findings Intake & Output: Intake & Output 02/17/17 02/18/17 02/18/17 23:59 07:59 15:59 Intake Total 4420 / 4420 165 / 165 Output Total 1060 / 1060 370 / 370 330 / 330 Balance 3360 / 3360 -205 / -205 -330 / -330 Weight 99.337 kg - VTE Documentation of Mechanical Device: Intermittent pneumatic compression device Consult Discharge Plan - Plan Referrals: Emmanuel Gonzalez DO [Resident] - 02/24/17 2:00 pm
[2017-02-18] MEDS ORDERED: Ringers Solution, Lactated 1,000 ML IVC SCH (10:09)
[2017-02-18] MEDS ORDERED: Acetaminophen 650 MG RECTAL SUPP RC PRN (10:09)
[2017-02-18] MEDS ORDERED: *HR* Morphine 2 MG/ML SYRINGE IVP PRN (10:09)
[2017-02-18] MEDS ORDERED: Naloxone 0.4 MG/ML INJ IVP PRN (10:09)
[2017-02-18] MEDS ORDERED: SUMAtriptan 6 MG/0.5 ML SQ PRN (10:09)
[2017-02-18] MEDS ORDERED: Nitroglycerin 0.4 MG TAB.SUBL SL PRN (10:09)
[2017-02-18] MEDS ORDERED: 0.9 % Sodium Chloride 250 ML ONE (10:30)
[2017-02-18] MEDS: *HR* OxyCODONE/APAP 5/325 TABLET PO PRN ×2 (11:42→18:05)
[2017-02-18 13:51] LABS: ABG HCO3 23.4 mEQ/L (21-27); ABG PCO2 51 mmHg (35-45); ABG PH 7.27 pH Units (7.32-7.45); ABG PO2 60 mmHg (85-104)
[2017-02-18 13:52] LABS: ABG Base Excess -3.7 mEq/L (-2.0 to 3.0); ABG Glucose 103 mg/dL (60-95); ABG Hematocrit 32 % (35-51); ABG Ionized Calcium 1.16 mmol/L (1.15-1.35); ABG Oxygen Saturation 87 % (95-98)
[2017-02-18 13:54] LABS: Alanine Aminotransferase 92 Units/L (0-55); Albumin/Globulin Ratio 0.5 (1.1-2.2); Alkaline Phosphatase 128 Units/L (38-126); Aspartate Amino Transferase 108 Units/L (5-34); Bilirubin,Direct 0.7 mg/dL (0.0-0.5); Bilirubin,Indirect 0.2 mg/dL (0.0-1.2); Globulin 3.8 g/dL (2.4-3.5); Total Protein 5.7 g/dL (6.0-8.3)
[2017-02-18 13:56] LABS: Albumin 1.9 g/dL (3.5-5.0); Bilirubin,Total 0.9 mg/dL (0.2-1.2)
[2017-02-18] MEDS ORDERED: Ibuprofen 600 MG TABLET PO PRN (18:01)
[2017-02-18] MEDS: Valproic Acid INJ 500 MG in 0.9 % Sodium Chloride 100 ML IVPB SCH (18:06)
[2017-02-19] MEDS: Meropenem 1,000 MG in 0.9 % Sodium Chloride Mini Bag 100 ML IVPB SCH ×4 (00:29→23:04)
[2017-02-19] MEDS: Valproic Acid INJ 500 MG in 0.9 % Sodium Chloride 100 ML IVPB SCH (01:05)
[2017-02-19] MEDS: *HR* OxyCODONE/APAP 5/325 TABLET PO PRN ×4 (03:10→23:48)
[2017-02-19 04:40] LABS: Basophils % 0.2 %; Eosinophils % 0.1 %; Hematocrit 27.2 % (37.5-50.1); Hemoglobin 9.1 g/dL (12.9-16.9); Immature Granulocytes % 1.4 % (0-4); Lymphocytes # 1.3 K/mcL (0.6-4.6); Mean Corpuscular HGB Conc 33.5 g/dL (31.6-35.5); Mean Corpuscular Hemoglobin 27.6 pg (28.0-33.3); Mean Corpuscular Volume 82.4 fL (83.0-100.0); Mean Platelet Volume 9.6 fL (9.4-12.4); Monocytes # 0.8 K/mcL (0.0-1.3); Monocytes % 4.8 %; Neutrophils # 14.2 K/mcL (1.6-8.9); Platelet Count 410 K/mcL (140-400); Red Cell Distribution Width 18.1 % (11.5-14.5); Segmented Neutrophils % 85.5 %
[2017-02-19] MEDS: *HR* Enoxaparin 40 MG/0.4 ML SYRINGE SQ SCH (04:44)
--- NOTE | 2017-02-19 08:51 | Cardiothoracic Progress Note ---
Date of Encounter: 02/19/17 Time of Encounter: 08:49 - Assessment and plan (1) Pleural effusion Current Visit: Yes Status: Acute The patient remained hemodynamic stable overnight. He is breathing comfortably. The chest tubes should remain in place for at least 2 more days to allow complete drainage of the effusion. He may be transferred to the stepdown unit when appropriate. The assessment and plan as outlined above was discussed with the patient and/or family members who expressed understanding and agreement. All questions were answered. - Subjective Procedure(s) Performed: POD #3 S/P Right thoracotomy with decortication Interval history: The patient remained him in a stable overnight. He is breathing comfortably. He has some postoperative incisional discomfort this morning. Vital Signs, Last 4 Hours Temp 02/19/17 08:41 97.6 F 02/19/17 04:58 102.2 F H Oxgyen Flow Rate Oxygen Flow Rate (LPM) 2 Weight 02/17/17 02/18/17 02/19/17 23:59 23:59 23:59 Weight 99.337 kg 95.3 kg - Physical Examination General: Conversant, No Apparent Distress Neck: No JVD, Normal carotid pulses Cardiac: Reg Rate and Rhythm Incision: No signs of infection, Dry/intact dressing Chest tubes: Minimal drainage, Other (No air leak.) Lungs: Normal Breath Sounds, No Wheeze, Rales, Rhonchi Neuro: Alert and responsive, No focal deficits noted Vascular: Normal capillary refill Extremities: No Clubbing, No Cyanosis, No Edema - Labs 02/19/17 04:30 02/18/17 03:23 Lab Results, Last 24 hours 02/18/17 02/19/17 03:23 04:30 WBC 16.6 H Hgb 9.1 L D Hct 27.2 L Plt Count 410 H Sodium 138 Potassium 3.5 Chloride 110 H Carbon Dioxide 22 BUN 16 Creatinine 0.67 L Glucose 95 Calcium 7.8 L Total Bilirubin 0.9 D AST 108 H ALT 92 H Alkaline Phosphatase 128 H - Imaging Chest Xray: image reviewed (No pneumothorax. No change in right basilar atelectasis.) - VTE Documentation of Mechanical Device: Intermittent pneumatic compression device Consult Discharge Plan - Plan Referrals: Emmanuel Gonzalez DO [Resident] - 02/24/17 2:00 pm
[2017-02-19] MEDS: Sucralfate 1 GM TABLET PO SCH ×3 (08:54→17:32)
[2017-02-19] MEDS: Lactobacillus 1 EACH CAP.SPRINK PO SCH ×2 (08:54→20:34)
[2017-02-19] MEDS: Nicotine 21 MG PATCH.TD24 TD SCH (08:55)
[2017-02-19] MEDS: Thiamine (B-1) 100 MG TABLET PO SCH (08:55)
[2017-02-19] MEDS: Pantoprazole 40 MG VIAL IVP SCH (08:56)
[2017-02-19] MEDS: amLODIPine 5 MG TABLET PO SCH (08:56)
[2017-02-19] MEDS: Budesonide/Formoterol 160/4.5 MDI IH SCH ×2 (09:55→21:46)
[2017-02-19] MEDS ORDERED: RINGERS LACTATED IVC ONE (11:13)
[2017-02-19] MEDS: Ketorolac 15 MG/ML VIAL IVP SCH ×3 (11:47→23:04)
--- NOTE | 2017-02-19 13:39 | Pulmonology Progress Note ---
Date of Encounter: 02/19/17 Time of Encounter: 13:38 Assessment and Plan (1) Empyema lung Current Visit: Yes Status: Acute 61-year-old gentleman with a history of alcohol abuse and liver cirrhosis right and sided empyema status post right surgical decortication. Neuropsych: Remains delirious intermittently agitated. He is on multiple non- benzodiazepine medications for agitation which I have continued a virtually continues to receive narcotics for pain control and I suspect this is having some impact on his overall mental status which baseline is not the best. Would also focus on reestablishing sleep-wake cycle. Pulm: Right empyema status post surgical drainage chest tubes in place managed by cardiothoracic surgery wean when FiO2 as able and continue bronchodilator therapy. Acceptable oxygenation on minimal FiO2 support Cards: I have held his calcium channel jo ann for viral hypotension this morning can reinstitute on an as-needed basis. His blood pressure is more acceptable today FEN-GI: Diet advanced. Slight elevation in liver transaminases which has resolved Renal: No evidence of SHELLEY appropriate urine output continue to monitor replace lytes per protocol. (-)1.5 liters overnight. Starting crystalloid infusion to match i/o high metabolic demand. Cont to encourage PO intake. ID: Right empyema has undergone decortication WBC count trending down he remains on meropenem He did have a couple episodes of fever will reculture if evidence of further Panorex area could consider broadening out to add MRSA coverage otherwise remains on appropriate antimicrobial coverage continues to spike fever and white count begins to rise would also consider repeat CT scan of the chest Heme/Onc: Continue DVT prophylaxis with Lovenox. H&H stable after PRBC transfusion Endo: Glucose monitored Integ/MSK: Continue ICU nursing protocol for her skin care management to prevent skin ulcers CODE: Full Stable for transfer to stepdown unit for ongoing care (2) Acute respiratory failure Current Visit: No Status: Acute Qualifiers: Respiratory failure complication: hypoxia Qualified Code(s): J96.01 - Acute respiratory failure with hypoxia (3) Protein malnutrition Current Visit: No Status: Chronic (4) Sepsis Current Visit: Yes Status: Acute Qualifiers: Sepsis type: sepsis due to unspecified organism Qualified Code(s): A41.9 - Sepsis, unspecified organism (5) ETOH abuse Current Visit: Yes Status: Acute Subjective Principal diagnosis: acute respiratory failure Interval history: Remains confused at times with intermittent periods of agitation generally he is really orientable. Spiked a fever overnight was given antipyretic no cultures obtained he is no longer febrile this morning. He is relating to me that his grandmother is "coming to pick him up to take him to another hospital" this could not be immediately verified Objective PUL Vital signs: Last Vital Signs Temp 99.1 F 02/19/17 13:03 Pulse 115 02/19/17 13:27 Resp 25 02/19/17 09:55 BP 120/52 02/19/17 09:00 Pulse Ox 97 02/19/17 09:55 General appearance: no acute distress, other Auscultation: right: diminished breath sounds, bilateral: rhonchi Cardiovascular: regular rate and rhythm Gastrointestinal: normoactive bowel sounds non-focal exam, pupils equal and round anxious Results - Laboratory Findings CBC and BMP: 02/19/17 04:30 02/18/17 03:23 ABG ABG pH 7.38 pH Units (7.32-7.45) 02/17/17 03:43 ABG pCO2 42 mmHg (35-45) 02/17/17 03:43 ABG pO2 104 mmHg (85-104) 02/17/17 03:43 ABG O2 Saturation 98 % (95-98) 02/17/17 03:43 PT/INR, D-dimer PT 15.9 Seconds (9.4-12.1) H 02/15/17 09:40 Abnormal lab findings: Abnormal lab results WBC 16.6 K/mcL (4.3-11.1) H 02/19/17 04:30 RBC 3.30 M/mcL (4.19-5.50) L 02/19/17 04:30 Hgb 9.1 g/dL (12.9-16.9) L D 02/19/17 04:30 Hct 27.2 % (37.5-50.1) L 02/19/17 04:30 MCV 82.4 fL (83.0-100.0) L 02/19/17 04:30 MCH 27.6 pg (28.0-33.3) L 02/19/17 04:30 RDW 18.1 % (11.5-14.5) H 02/19/17 04:30 Plt Count 410 K/mcL (140-400) H 02/19/17 04:30 Metamyelocytes % 2.0 % (0) H 02/14/17 09:00 Myelocytes % 2.0 % (0) H 02/10/17 04:20 Promyelocytes % 4.0 % (0) H 02/12/17 05:23 Neutrophils # 14.2 K/mcL (1.6-8.9) H 02/19/17 04:30 Nucleated RBCs/100 WBC 0.2 /100 WBC (0) H 02/14/17 09:00 Reactive Lymphocytes Present (Not Present) A 02/16/17 17:02 Toxic Granulation Present (Not Present) A 02/16/17 17:02 Dohle Bodies Present (Not Present) A 02/10/17 04:20 Clumped Platelets Few (Not Present) A 02/16/17 02:53 Large Platelets Present (Not Present) A 02/13/17 00:35 Polychromasia 1+ (Not Present) A 02/14/17 09:00 Anisocytosis 1+ (Not Present) A 02/16/17 02:53 Microcytosis Present (Not Present) A 02/12/17 05:23 PT 15.9 Seconds (9.4-12.1) H 02/15/17 09:40 ABG Total CO2 26.1 mEq/L (20-26) H 02/17/17 03:43 ABG Hematocrit 32 % (35-51) L 02/16/17 14:29 VBG pH 7.56 pH Units (7.32-7.42) H 02/01/17 20:30 VBG pCO2 25 mmHg (41-51) L 02/01/17 20:30 VBG pO2 111 mmHg (25-40) H 02/01/17 20:30 Glucose 103 mg/dL (60-95) H 02/16/17 14:29 Chloride 110 mEq/L (98-109) H 02/18/17 03:23 Creatinine 0.67 mg/dL (0.72-1.25) L 02/18/17 03:23 POC Glucose 109 (58-89) H 02/17/17 15:39 Calcium 7.8 mg/dL (8.6-10.8) L 02/18/17 03:23 Ionized Calcium 0.95 mmol/L (1.15-1.35) L 02/17/17 03:30 % Saturation 14 % (20-55) L 02/04/17 12:19 Direct Bilirubin 0.7 mg/dL (0.0-0.5) H 02/18/17 03:23 AST 108 Units/L (5-34) H 02/18/17 03:23 ALT 92 Units/L (0-55) H 02/18/17 03:23 Alkaline Phosphatase 128 Units/L (38-126) H 02/18/17 03:23 Lactate Dehydrogenase 155 Units/L (159-327) L 02/15/17 03:56 Serum Total Protein 5.7 g/dL (6.0-8.3) L 02/18/17 03:23 Albumin 1.9 g/dL (3.5-5.0) L D 02/18/17 03:23 Globulin 3.8 g/dL (2.4-3.5) H 02/18/17 03:23 Albumin/Globulin Ratio 0.5 (1.1-2.2) L 02/18/17 03:23 LDL Cholesterol, Calc 119 mg/dL (0-99) H 02/01/17 20:30 Lipase 5 Units/L (8-78) L 02/06/17 11:14 TSH 5.937 mcIU/mL (0.350-4.840) H 02/02/17 02:38 Free T3 3.73 pg/mL (1.71-3.71) H 02/03/17 13:25 Urine Protein 30 mg/dL (Neg-Trace) H 02/13/17 16:00 Urine Blood Trace (Negative) H 02/13/17 16:00 Urine Urobilinogen 2.0 mg/dL (Normal) H 02/13/17 16:00 Urine Microscopic RBC 5-15 per hpf (0-3) H 02/13/17 16:00 Pleural Appearance Bloody (Clear) A 02/14/17 15:00 Pleural RBC 0.346 M/mcL (0.000-0.002) H 02/14/17 15:00 Urine Opiates Screen Positive ng/mL (Jiwtpw=550) H 02/05/17 21:05 Free Valproic Acid <7 ug/mL (7-23) L 02/01/17 20:30 Total Valproic Acid <7 ug/mL (50-125) L 02/01/17 20:30 U Benzodiazepines Scrn Positive ng/mL (Nafixk=447) H 02/05/17 21:05 Hepatitis C Ab Screen Reactive (Nonreactive) H 02/04/17 12:19 - Microbiology Findings Microbiology Findings: Microbiology, Last 48 Hours 02/16/17 Unknown Anaerobic Culture - Preliminary Pleural Fluid At this time, no anaerobic growth is present. The culture will be finalized after 5 days of incubation. 02/16/17 Unknown Wound Culture - Final Other-Specify in Comments No growth. 02/13/17 00:35 Blood Culture - Final Peripheral Venipuncture No growth. 02/13/17 00:37 Blood Culture - Final Peripheral Venipuncture No growth. 02/16/17 10:43 Blood Culture - Preliminary Peripheral Venipuncture No growth. 02/16/17 10:43 Blood Culture - Preliminary Peripheral Venipuncture No growth. 02/14/17 15:00 Body Fluid Culture - Final Pleural Fluid - Clinical Findings Intake & Output: Intake & Output 02/18/17 02/19/17 02/19/17 23:59 07:59 15:59 Intake Total 585 / 585 205 / 205 100 / 100 Output Total 2066 / 2066 1600 / 1600 1050 / 1050 Balance -1481 / -1481 -1395 / -1395 -950 / -950 Weight 95.3 kg - VTE Documentation of Mechanical Device: Intermittent pneumatic compression device Consult Discharge Plan - Plan Referrals: Emmanuel Gonzalez DO [Resident] - 02/24/17 2:00 pm
[2017-02-19] MEDS: *HR* Morphine 2 MG/ML SYRINGE IVP PRN (17:39)
[2017-02-19] MEDS: Divalproex (24 HR) 250 MG TABLET PO SCH (20:34)
[2017-02-20] MEDS ORDERED: *HR* LORazepam 1 MG TABLET PO ONE (05:24)
[2017-02-20] MEDS: Sucralfate 1 GM TABLET PO SCH ×3 (05:33→17:56)
[2017-02-20] MEDS: Pantoprazole 40 MG VIAL IVP SCH (05:33)
[2017-02-20] MEDS: Ketorolac 15 MG/ML VIAL IVP SCH ×3 (05:33→20:43)
[2017-02-20] MEDS: *HR* Enoxaparin 40 MG/0.4 ML SYRINGE SQ SCH (05:34)
[2017-02-20] MEDS: Budesonide/Formoterol 160/4.5 MDI IH SCH ×2 (08:13→22:37)
--- NOTE | 2017-02-20 08:53 | Cardiothoracic Progress Note ---
Date of Encounter: 02/20/17 Time of Encounter: 08:50 - Assessment and plan (1) Chest pain Current Visit: No Status: Resolved The assessment and plan as outlined above was discussed with the patient and/or family members who expressed understanding and agreement. All questions were answered. I took the chest tubes off suction. We will check a chest x-ray tomorrow morning. I will leave the Boggs catheter until the chest tubes are removed. We will ask social service to see the patient concerning his worries about paying his rent. Qualifiers: Chest pain type: unspecified Qualified Code(s): R07.9 - Chest pain, unspecified - Subjective Interval history: The patient has no complaints. His Boggs catheter was reinserted yesterday for urinary retention. He is worried about paying his rent. Vital Signs, Last 4 Hours Temp Pulse Resp BP Pulse Ox 02/20/17 07:32 98.7 F 85 19 118/71 100 Oxgyen Flow Rate Oxygen Flow Rate (LPM) 4 Clinical Data, last 8 Hours Output, Urine Amount [Urethral 500 (Boggs)] Weight 02/18/17 02/19/17 02/20/17 23:59 23:59 23:59 Weight 99.337 kg 95.3 kg Lungs are clear to percussion and auscultation. Heart is in a normal sinus rhythm. Chest tube drainage is minimal and there is no air leak. Chest x-ray reveals no pneumothorax, but does reveal subcutaneous emphysema. - Labs 02/19/17 04:30 02/18/17 03:23 - VTE Documentation of Mechanical Device: Intermittent pneumatic compression device Consult Discharge Plan - Plan Referrals: Emmanuel Gonzalez DO [Resident] - 02/24/17 2:00 pm
[2017-02-20] MEDS: *HR* OxyCODONE/APAP 5/325 TABLET PO PRN ×2 (09:31→23:58)
[2017-02-20] MEDS: Thiamine (B-1) 100 MG TABLET PO SCH (09:31)
[2017-02-20] MEDS: amLODIPine 5 MG TABLET PO SCH (09:32)
[2017-02-20] MEDS: Meropenem 1,000 MG in 0.9 % Sodium Chloride Mini Bag 100 ML IVPB SCH ×2 (09:33→17:56)
[2017-02-20] MEDS: Nicotine 21 MG PATCH.TD24 TD SCH (09:33)
[2017-02-20] MEDS: Lactobacillus 1 EACH CAP.SPRINK PO SCH ×2 (09:33→20:42)
[2017-02-20 10:34] LABS: Basophils % 0.2 %; Eosinophils # 0.1 K/mcL (0.0-0.6); Eosinophils % 0.6 %; Hematocrit 27.9 % (37.5-50.1); Hemoglobin 9.1 g/dL (12.9-16.9); Immature Granulocytes % 1.6 % (0-4); Lymphocytes % 10.9 %; Mean Corpuscular HGB Conc 32.6 g/dL (31.6-35.5); Mean Corpuscular Hemoglobin 27.7 pg (28.0-33.3); Mean Corpuscular Volume 85.1 fL (83.0-100.0); Mean Platelet Volume 10.5 fL (9.4-12.4); Monocytes # 0.4 K/mcL (0.0-1.3); Monocytes % 4.4 %; Neutrophils # 7.3 K/mcL (1.6-8.9); Platelet Count 327 K/mcL (140-400); Red Blood Count 3.28 M/mcL (4.19-5.50); Red Cell Distribution Width 18.5 % (11.5-14.5); Segmented Neutrophils % 82.3 %
[2017-02-20 10:38] LABS: BUN/Creatinine Ratio 24 (6-26); Blood Urea Nitrogen 18 mg/dL (8-26); Calcium 8.1 mg/dL (8.6-10.8); Carbon Dioxide 20 mEq/L (19-29); Chloride 105 mEq/L (98-109); Glucose 86 mg/dL (70-99); Osmolality,Calculated 281 (280-300); Potassium 3.9 mEq/L (3.5-4.5); Sodium 135 mEq/L (136-145); eGFR For African Americans > 60 (> 60); eGFR For Non-African Americans > 60 (> 60)
--- NOTE | 2017-02-20 11:07 | Internal Med Progress Note ---
<Brenden Zuniga - Last Filed: 02/20/17 11:04> Date of Encounter: 02/20/17 Time of Encounter: 11:04 - Assessment and plan (1) Sepsis Current Visit: Yes Status: Acute Assessment and plan: Mark still meets sepsis criteria. He continue s to have leukocytosis, fever, tachycardia, and tachypnea. Spurce is likely from Aspiration pneumonia. Parameters may be elevated secondary to inflamation/ recent surgery. However with new finding of SQ air we will need to r/o gas producing organisms. We will get CT of the chest with contrast to evaluate for abscess/ infection. If only air present likely air leak. We will call CT surgery for recommendations if this is the case If abscess withair formation we will add clindamycin ( for toxin binding) and discuss with surgery Qualifiers: Sepsis type: sepsis due to unspecified organism Qualified Code(s): A41.9 - Sepsis, unspecified organism (2) Parapneumonic effusion Current Visit: Yes Status: Acute Assessment and plan: POD # 4 decroticaiton of right lunbg. Appreciate CT surgery managing chest tubes. (3) ETOH abuse Current Visit: Yes Status: Acute Assessment and plan: continue Librium and ciwa (4) COPD (chronic obstructive pulmonary disease) Current Visit: Yes Status: Acute Assessment and plan: Continue duonebs, (5) Pancreatic insufficiency Current Visit: Yes Status: Acute Assessment and plan: creon (6) Leukocytosis Current Visit: Yes Status: Acute Assessment and plan: down trending however CBC from today pending. (7) Bandemia Current Visit: Yes Status: Resolved (8) Metabolic encephalopathy Current Visit: Yes Status: Acute Assessment and plan: resolved. (9) DVT prophylaxis Current Visit: Yes Status: Acute Assessment and plan: SQ lovenox (10) Anemia Current Visit: Yes Status: Acute Assessment and plan: iron deficiency/ post operative. Received 2 units PRBC in the ICU. Follow up with pending CBC from today. (11) Atrial fibrillation Current Visit: Yes Status: Acute Assessment and plan: currently rate controlled on cardizem. I agree with previous assesment that he is not a very good candidate for anticoagulation given his metabolic encephalopathy , chronic ETOH abuse, and high fall risk. (12) Chest tube in place Current Visit: Yes Status: Acute Assessment and plan: [address] surgery following. (13) Need for management of chest tube Current Visit: Yes Status: Acute Assessment and plan: appreciate CT surgery. (14) Fatty liver Current Visit: Yes Status: Acute (15) Hypoalbuminemia Current Visit: Yes Status: Acute Assessment and plan: normal on admission. This likely is secondary to hypermetabolic state in acute illness rather than from liver disease. (16) Acute hypoxemic respiratory failure Current Visit: Yes Status: Acute Assessment and plan: secondary to a combination of underlying COPD, Aspiration PNA and empyema. O2 requirements stable. comfortable on todays exam. (17) Subcutaneous emphysema Current Visit: Yes Status: Acute Assessment and plan: as stated above. - Subjective Interval history: Patient was transferred from the ICU yesterday. He is Post op Day 4 for decortication of the right lung. Today the patient complains of pain and swelling in the right chest wall. He states the pain is moderate and is increased with palpation. He admits to a non productive cough and fever. He denies any abdominal pain. He has no further complaints or concerns at this time. - Constitutional Vitals: Temp Pulse Resp BP Pulse Ox 98.7 F 85 19 118/71 100 02/20/17 07:32 02/20/17 07:32 02/20/17 07:32 02/20/17 07:32 02/20/17 09:00 General appearance: Present: disheveled, A&O X 2, obese, severe distress (mild) , answers questions appropriately. Absent: cooperative - Head Head exam: Present: atraumatic, normal inspection, normocephalic - Eye Eye exam: Present: PERRL, conjuntiva pink, sclera anicteric Pupils: Present: PERRL - ENT ENT exam: Present: mucous membranes moist - Neck Neck exam general surgery: Present: supple, trachea midline. Absent: lymphadenopathy - Respiratory Respiratory exam: Present: CTAB. Absent: accessory muscle use, rales, rhonchi, wheezes Additional comments: Decrease breath sounds right lower. Chest tubes in place without suction He has notable swelling and subcutaneous emphesyma on exam. - Cardiovascular Cardiovascular exam: Present: RRR, +S1, +S2. Absent: diastolic murmur, gallop, rubs, systolic murmur - GI/Abdominal GI/Abdominal exam: Present: normal bowel sounds, soft, no peritoneal signs. Absent: distended, tenderness - Extremities Exam Extremities exam: Present: pedal edema, warm, radial pulses palpable and symetrical. Absent: calf tenderness, cyanotic Internal Medicine: Result - Labs CBC & Chem 7: 02/19/17 04:30 02/20/17 10:18 Labs: BMP 02/20/17 10:18 Sodium 135 L Potassium 3.9 Chloride 105 Carbon Dioxide 20 BUN 18 Creatinine 0.76 Glucose 86 Calcium 8.1 L - ABG Interpretation ABG results: ABG ABG pH 7.38 pH Units (7.32-7.45) 02/17/17 03:43 ABG pCO2 42 mmHg (35-45) 02/17/17 03:43 ABG pO2 104 mmHg (85-104) 02/17/17 03:43 ABG O2 Saturation 98 % (95-98) 02/17/17 03:43 PT/INR, D-dimer PT 15.9 Seconds (9.4-12.1) H 02/15/17 09:40 - Impressions Impressions Chest X-Ray 02/20/17 06:00 IMPRESSION: 1. No discernible pneumothorax. There is increasing subcutaneous gas in the right chest wall. 2. Stable right basilar airspace disease. D/ / Arben Lyons MD / Arben Lyons MD Interpreting Provider: Arben Lyons MD - VTE Documentation of Mechanical Device: Intermittent pneumatic compression device Consult Discharge Plan - Plan Referrals: Emmanuel Gonzalez DO [Resident] - 02/24/17 2:00 pm <Davi Lopez - Last Filed: 02/20/17 17:36> Date of Encounter: 02/20/17 - Assessment and plan (1) Alcohol abuse with alcohol-induced disorder Current Visit: Yes Status: Acute (2) COPD (chronic obstructive pulmonary disease) Current Visit: Yes Status: Acute Qualifiers: COPD type: COPD with acute exacerbation Qualified Code(s): J44.1 - Chronic obstructive pulmonary disease with (acute) exacerbation (3) Toxic metabolic encephalopathy Current Visit: Yes Status: Acute (4) Coronary artery disease Current Visit: Yes Status: Chronic Qualifiers: Coronary Disease-Associated Artery/Lesion type: [place] artery [place] vs. transplanted heart: [place] heart Associated angina: with unspecified angina Qualified Code(s): I25.119 - Atherosclerotic heart disease of [place] coronary artery with unspecified angina pectoris (5) Essential hypertension Current Visit: Yes Status: Chronic (6) Pancreatic insufficiency Current Visit: Yes Status: Chronic (7) DVT prophylaxis Current Visit: No Status: Acute (8) Elevated WBCs Current Visit: Yes Status: Acute Qualifiers: Leukocytosis type: bandemia Qualified Code(s): D72.825 - Bandemia - Constitutional Vitals: Temp Pulse Resp BP Pulse Ox 100.6 F H 90 17 107/68 100 02/20/17 15:38 02/20/17 15:38 02/20/17 15:38 02/20/17 15:38 02/20/17 15:38 Internal Medicine: Result - Labs CBC & Chem 7: 02/20/17 10:18 02/20/17 10:18 Labs: Short CBC 02/20/17 Range/Units 10:18 WBC 8.9 (4.3-11.1) K/mcL Hgb 9.1 L (12.9-16.9) g/dL Hct 27.9 L (37.5-50.1) % Plt Count 327 (140-400) K/mcL Neutrophils # 7.3 (1.6-8.9) K/mcL BMP 02/20/17 10:18 Sodium 135 L Potassium 3.9 Chloride 105 Carbon Dioxide 20 BUN 18 Creatinine 0.76 Glucose 86 Calcium 8.1 L - ABG Interpretation ABG results: ABG ABG pH 7.38 pH Units (7.32-7.45) 02/17/17 03:43 ABG pCO2 42 mmHg (35-45) 02/17/17 03:43 ABG pO2 104 mmHg (85-104) 02/17/17 03:43 ABG O2 Saturation 98 % (95-98) 02/17/17 03:43 PT/INR, D-dimer PT 15.9 Seconds (9.4-12.1) H 02/15/17 09:40 - Impressions Impressions Chest X-Ray 02/20/17 06:00 IMPRESSION: 1. No discernible pneumothorax. There is increasing subcutaneous gas in the right chest wall. 2. Stable right basilar airspace disease. D/ / Arben Lyons MD / Arben Lyons MD Interpreting Provider: Arben Lyons MD Chest CT 02/20/17 10:48 IMPRESSION: 1. Anterior-lateral right lower lobe approximately 5 cm gas-filled cavity has developed in the area of consolidation on previous CT 02/06/2017. Findings are concerning for lung abscess. There appears to be communication of this cavity into the pleural space, likely accounting for the hydropneumothorax. 2. New 2.5 cm collection in the right lower lobe with fluid and small amount a gas concerning for an additional lung abscess. 3. Small right hydropneumothorax. Mild dependent atelectasis in the right lower lobe. 4. Postoperative changes in the right chest wall. Gas and fluid in the right chest wall soft tissues, deep to the serratus muscle. D/ / 02/20/2017 12:22:26 Good Mendiola MD / terry Interpreting Provider: Good Mendiola MD - Attending Attestation I examined this patient and my medical decision-making was reviewed with the Resident Physician, Dr. Zuniga. I agree with the documented findings, disposition and treatment plan as described except to the extent set forth below. Patient reports right-sided chest pain, worse with movement of his right upper extremity and deep breathing. Moderate shortness of breath associated with it. Denies cough. Exam reveals significant edema of the right side of the chest mainly involving the right pectoral area. There is no significant crepitus palpated over the right upper chest. Chest tubes are in place. Lung auscultation reveals Rales and rhonchi on the right. Plan: Empyema and possible right lower lobe lung abscess: We will continue treatment with antibiotics. I appreciate CT surgery input. I have discussed the case with CT surgery and they recommended reconnecting the chest tube to suction. No further acute intervention was indicated. She remains at high risk for morbidity or mortality and complications due to systemic infection and treatment with IV controlled substances.
[2017-02-20 11:28] LABS: Anisocytosis 1+ (Not Present); Platelet Estimate Normal (Normal); Polychromasia 1+ (Not Present)
[2017-02-20] MEDS: *HR* Morphine 2 MG/ML SYRINGE IVP PRN ×3 (12:10→17:57)
[2017-02-20] MEDS ORDERED: Acetaminophen 325 MG TABLET PO PRN (17:54)
[2017-02-20] MEDS: Divalproex (24 HR) 250 MG TABLET PO SCH (20:42)
[2017-02-20] MEDS: *HR* LORazepam 2 MG/ML VIAL IVP SCH (20:43)
[2017-02-20] MEDS: traZODone 50 MG TABLET PO SCH (23:58)
[2017-02-21] MEDS: Meropenem 1,000 MG in 0.9 % Sodium Chloride Mini Bag 100 ML IVPB SCH ×3 (00:09→16:43)
[2017-02-21] MEDS: *HR* LORazepam 2 MG/ML VIAL IVP SCH ×4 (01:30→12:25)
[2017-02-21] MEDS: Ketorolac 15 MG/ML VIAL IVP SCH ×4 (01:30→18:34)
[2017-02-21] MEDS: *HR* Enoxaparin 40 MG/0.4 ML SYRINGE SQ SCH (05:02)
[2017-02-21 06:20] LABS: Basophils % 0.4 %; Eosinophils % 0.5 %; Hemoglobin 8.7 g/dL (12.9-16.9); Immature Granulocytes % 1.3 % (0-4); Lymphocytes # 1.3 K/mcL (0.6-4.6); Lymphocytes % 15.5 %; Mean Corpuscular HGB Conc 32.2 g/dL (31.6-35.5); Mean Corpuscular Hemoglobin 27.5 pg (28.0-33.3); Mean Corpuscular Volume 85.4 fL (83.0-100.0); Mean Platelet Volume 10.3 fL (9.4-12.4); Monocytes # 0.4 K/mcL (0.0-1.3); Monocytes % 5.3 %; Neutrophils # 6.4 K/mcL (1.6-8.9); Platelet Count 301 K/mcL (140-400); Red Blood Count 3.16 M/mcL (4.19-5.50); Red Cell Distribution Width 18.1 % (11.5-14.5)
[2017-02-21 06:32] LABS: BUN/Creatinine Ratio 22 (6-26); Blood Urea Nitrogen 16 mg/dL (8-26); Calcium 8.2 mg/dL (8.6-10.8); Carbon Dioxide 23 mEq/L (19-29); Chloride 104 mEq/L (98-109); Glucose 89 mg/dL (70-99); Osmolality,Calculated 279 (280-300); Potassium 4.2 mEq/L (3.5-4.5); Sodium 134 mEq/L (136-145); eGFR For African Americans > 60 (> 60); eGFR For Non-African Americans > 60 (> 60)
[2017-02-21 06:40] LABS: Platelet Estimate Normal (Normal); Reactive Lymphocytes Present (Not Present)
[2017-02-21 06:42] LABS: Anisocytosis 1+ (Not Present); Stomatocytes 1+ (Not Present)
[2017-02-21] MEDS: *HR* Morphine 2 MG/ML SYRINGE IVP PRN ×2 (06:49→16:34)
[2017-02-21] MEDS: Nicotine 21 MG PATCH.TD24 TD SCH (08:33)
[2017-02-21] MEDS: amLODIPine 5 MG TABLET PO SCH (08:34)
[2017-02-21] MEDS: traZODone 50 MG TABLET PO SCH ×2 (08:34→21:58)
[2017-02-21] MEDS: Thiamine (B-1) 100 MG TABLET PO SCH (08:34)
[2017-02-21] MEDS: Lactobacillus 1 EACH CAP.SPRINK PO SCH ×2 (08:34→21:58)
[2017-02-21] MEDS: Sucralfate 1 GM TABLET PO SCH ×3 (08:34→16:43)
[2017-02-21] MEDS: Pantoprazole 40 MG VIAL IVP SCH (08:35)
--- NOTE | 2017-02-21 09:35 | Cardiothoracic Progress Note ---
Date of Encounter: 02/21/17 Time of Encounter: 09:31 - Assessment and plan (1) Chest pain Current Visit: No Status: Resolved The CT scan of the chest done yesterday reveals the possibility of a pulmonary abscess. I disagree with this. There is an air-fluid level and air in the possible abscess with to nearby chest tubes, so this is well drained in any event. I feel that this most likely represents trauma either from the initial chest tube placement or from surgery. The patient is afebrile and his white blood cell count is 8000. He has no sputum production. The subcutaneous air and changes on the CT scan should resolve spontaneously. We will leave the Boggs catheter until the chest tubes are removed as it had to be replaced for urinary retention. Qualifiers: Chest pain type: unspecified Qualified Code(s): R07.9 - Chest pain, unspecified - Subjective Interval history: The patient complains of generalized aches and pains. His O2 saturation is 96% on room air. Vital Signs, Last 4 Hours Temp Pulse Resp BP Pulse Ox 02/21/17 08:50 98 02/21/17 07:33 98.7 F 86 20 135/79 98 Oxgyen Flow Rate Oxygen Flow Rate (LPM) 2 Clinical Data, last 8 Hours Output, Chest Tube Drainage 0 Amount [Right Lateral Chest #2 ] Output, Chest Tube Drainage 10 Amount [Right Lateral Chest #2 ] Output, Chest Tube Drainage 0 Amount [Right] Output, Chest Tube Drainage 0 Amount [Right] Weight 02/19/17 02/20/17 02/21/17 23:59 23:59 23:59 Weight 95.3 kg 94.1 kg Lungs are clear to percussion and auscultation. His incision is healing well without signs of infection. He does have some crepitus over his right chest wall which appears stable. Chest tube drainage is minimal and there is no air leak. Chest x-ray reveals subcutaneous air with no pneumothorax. A CT scan of the chest done yesterday for the subcutaneous air reveals what I consider to be the usual postoperative changes. - Labs 02/21/17 06:10 02/21/17 06:10 Lab Results, Last 24 hours 02/20/17 02/20/17 02/21/17 10:18 10:18 06:10 WBC 8.9 8.3 Hgb 9.1 L 8.7 L Hct 27.9 L 27.0 L Plt Count 327 301 Sodium 135 L Potassium 3.9 Chloride 105 Carbon Dioxide 20 BUN 18 Creatinine 0.76 Glucose 86 Calcium 8.1 L 02/21/17 06:10 WBC Hgb Hct Plt Count Sodium 134 L Potassium 4.2 Chloride 104 Carbon Dioxide 23 BUN 16 Creatinine 0.74 Glucose 89 Calcium 8.2 L - VTE Documentation of Mechanical Device: Intermittent pneumatic compression device Consult Discharge Plan - Plan Referrals: Emmanuel Gonzalez DO [Resident] - 02/24/17 2:00 pm
--- NOTE | 2017-02-21 10:35 | Event Note ---
Date of Encounter: 02/21/17 Time of Encounter: 10:33 CT chest reviewed there is concern about right-sided pulmonary abscess. I discussed the case with Dr. Cedric Warren thoracic surgery and I concur with his assessment that pulmonary abscess is much less likely given clinical improvement and this is likely postoperative changes and regardless area has been drained effectively both for surgical decortication and chest tube. Recommend prolonged course of antimicrobials (for PO med Consider Clindamycin or Augmentin) for 3 weeks and repeat imaging at that time. Chest tube management per cardiothoracic surgery Pulmonary will sign off please call with any questions thank you
[2017-02-21] MEDS: Budesonide/Formoterol 160/4.5 MDI IH SCH ×2 (11:30→22:50)
[2017-02-21] MEDS: *HR* OxyCODONE/APAP 5/325 TABLET PO PRN ×2 (14:51→22:09)
[2017-02-21] MEDS: *HR* LORazepam 2 MG/ML VIAL IVP PRN (16:42)
--- NOTE | 2017-02-21 18:47 | Internal Med Progress Note ---
Date of Encounter: 02/21/17 Time of Encounter: 11:00 - Assessment and plan (1) Alcohol abuse with alcohol-induced disorder Current Visit: Yes Status: Acute Assessment and plan: Alcohol withdrawal protocol. Start IV Ativan as needed for anxiety. High risk for morbidity and mortality and complications due to treatment with IV controlled substances. (2) COPD (chronic obstructive pulmonary disease) Current Visit: Yes Status: Acute Assessment and plan: I will continue with DuoNeb's and by mouth prednisone. Oxygen supplementation by nasal cannula to maintain saturation above 92%. Qualifiers: COPD type: COPD with acute exacerbation Qualified Code(s): J44.1 - Chronic obstructive pulmonary disease with (acute) exacerbation (3) Coronary artery disease Current Visit: Yes Status: Chronic Qualifiers: Coronary Disease-Associated Artery/Lesion type: [place] artery [place] vs. transplanted heart: [place] heart Associated angina: with unspecified angina Qualified Code(s): I25.119 - Atherosclerotic heart disease of [place] coronary artery with unspecified angina pectoris (4) Essential hypertension Current Visit: Yes Status: Chronic Assessment and plan: Continue with amlodipine and metoprolol. (5) Pancreatic insufficiency Current Visit: Yes Status: Chronic Assessment and plan: Continue Creon with meals. (6) DVT prophylaxis Current Visit: No Status: Acute Assessment and plan: Subcutaneous Lovenox (7) Chest tube in place Current Visit: Yes Status: Acute Assessment and plan: 2 chest tubes to suction. I have replaced the dressing which was saturated with fluid. Thoracotomy surgical incision is closed with chaz appears clean with no dehiscence no drainage. Dressing change daily. CT surgery following. IV morphine for pain. (8) Empyema lung Current Visit: Yes Status: Acute Assessment and plan: Management chest tube. Appreciate CT surgery input. There is some leak and subcutaneous tissue. No clinically evident or radiological evidence of pneumothorax. We will continue with broad-spectrum IV antibiotics. Follow-up cultures, currently negative. (9) Subcutaneous emphysema Current Visit: Yes Status: Acute Assessment and plan: Conservative management. Monitor clinically. Qualifiers: Encounter type: subsequent encounter Qualified Code(s): T79.7XXD - Traumatic subcutaneous emphysema, subsequent encounter - Subjective Interval history: Patient reports right-sided chest pain, sharp, worse with movement and deep inspiration, improved with IV morphine. Denies cough and sputum production. - Constitutional Vitals: Temp Pulse Resp BP Pulse Ox 97.8 F 88 18 112/67 97 02/21/17 18:32 02/21/17 18:32 02/21/17 18:32 02/21/17 18:32 02/21/17 18:32 General appearance: Present: cooperative, A&O X 3, answers questions appropriately - Head Head exam: Present: atraumatic, normocephalic - Eye Eye exam: Present: PERRL, conjuntiva pink, sclera anicteric Pupils: Present: PERRL - Neck Neck exam general surgery: Present: supple, trachea midline. Absent: lymphadenopathy - Respiratory Respiratory exam: Absent: accessory muscle use, rales, rhonchi, wheezes Additional comments: Right-sided chest tubes connected to suction with insertion site covered with dressing is saturated with serous sanguinous secretions. There is subcutaneous edema and emphysema in the right chest, improved from yesterday. Diminished breath sounds at right base. - Cardiovascular Cardiovascular exam: Present: RRR, +S1, +S2. Absent: diastolic murmur, gallop, rubs, systolic murmur - GI/Abdominal GI/Abdominal exam: Present: normal bowel sounds, soft, no peritoneal signs. Absent: distended, tenderness - Extremities Exam Extremities exam: Present: warm, radial pulses palpable and symetrical. Absent : calf tenderness, cyanotic, pedal edema - Skin Skin exam: Present: dry, intact Internal Medicine: Result - Labs CBC & Chem 7: 02/21/17 06:10 02/21/17 06:10 Labs: Short CBC 02/21/17 Range/Units 06:10 WBC 8.3 (4.3-11.1) K/mcL Hgb 8.7 L (12.9-16.9) g/dL Hct 27.0 L (37.5-50.1) % Plt Count 301 (140-400) K/mcL Neutrophils # 6.4 (1.6-8.9) K/mcL BMP 02/21/17 06:10 Sodium 134 L Potassium 4.2 Chloride 104 Carbon Dioxide 23 BUN 16 Creatinine 0.74 Glucose 89 Calcium 8.2 L - ABG Interpretation ABG results: ABG ABG pH 7.38 pH Units (7.32-7.45) 02/17/17 03:43 ABG pCO2 42 mmHg (35-45) 02/17/17 03:43 ABG pO2 104 mmHg (85-104) 02/17/17 03:43 ABG O2 Saturation 98 % (95-98) 02/17/17 03:43 PT/INR, D-dimer PT 15.9 Seconds (9.4-12.1) H 02/15/17 09:40 - Impressions Impressions Chest X-Ray 02/21/17 00:01 IMPRESSION: Unchanged positioning of right thoracostomy tubes. No definite pneumothorax visualized. D/ / Marco Jackson MD / Marco Jackson MD Interpreting Provider: Marco Jackson MD - VTE Documentation of Mechanical Device: Intermittent pneumatic compression device Consult Discharge Plan - Plan Referrals: Emmanuel Gonzalez DO [Resident] - 02/24/17 2:00 pm
[2017-02-21] MEDS: Divalproex (24 HR) 250 MG TABLET PO SCH (21:58)
[2017-02-22] MEDS: Meropenem 1,000 MG in 0.9 % Sodium Chloride Mini Bag 100 ML IVPB SCH ×3 (02:03→17:29)
[2017-02-22] MEDS: Ketorolac 15 MG/ML VIAL IVP SCH ×2 (02:15→06:41)
[2017-02-22] MEDS: *HR* OxyCODONE/APAP 5/325 TABLET PO PRN ×2 (04:26→22:07)
[2017-02-22 04:54] LABS: Basophils % 0.4 %; Eosinophils # 0.1 K/mcL (0.0-0.6); Eosinophils % 0.7 %; Hematocrit 32.3 % (37.5-50.1); Immature Granulocytes % 1.4 % (0-4); Lymphocytes % 17.6 %; Mean Corpuscular Hemoglobin 26.7 pg (28.0-33.3); Mean Corpuscular Volume 86.4 fL (83.0-100.0); Mean Platelet Volume 10.7 fL (9.4-12.4); Monocytes # 0.4 K/mcL (0.0-1.3); Monocytes % 5.1 %; Neutrophils # 5.3 K/mcL (1.6-8.9); Platelet Count 230 K/mcL (140-400); Red Blood Count 3.74 M/mcL (4.19-5.50); Segmented Neutrophils % 74.8 %
[2017-02-22 05:04] LABS: Lymphocytes # 1.3 K/mcL (0.6-4.6)
[2017-02-22 05:05] LABS: BUN/Creatinine Ratio 19 (6-26); Blood Urea Nitrogen 13 mg/dL (8-26); Calcium 8.5 mg/dL (8.6-10.8); Carbon Dioxide 20 mEq/L (19-29); Chloride 105 mEq/L (98-109); Glucose 91 mg/dL (70-99); Osmolality,Calculated 278 (280-300); Potassium 4.4 mEq/L (3.5-4.5); Sodium 134 mEq/L (136-145); eGFR For African Americans > 60 (> 60); eGFR For Non-African Americans > 60 (> 60)
[2017-02-22 05:31] LABS: Anisocytosis 2+ (Not Present); Microcytosis Present (Not Present)
[2017-02-22 05:33] LABS: Large Platelets Present (Not Present); Platelet Estimate Normal (Normal); Reactive Lymphocytes Present (Not Present)
[2017-02-22] MEDS: Sucralfate 1 GM TABLET PO SCH ×3 (06:40→17:29)
[2017-02-22] MEDS: *HR* Enoxaparin 40 MG/0.4 ML SYRINGE SQ SCH (06:40)
[2017-02-22] MEDS: Pantoprazole 40 MG VIAL IVP SCH (06:40)
--- NOTE | 2017-02-22 08:28 | Cardiothoracic Progress Note ---
Date of Encounter: 02/22/17 Time of Encounter: 08:26 - Assessment and plan (1) Chest pain Current Visit: No Status: Resolved I will leave the chest tubes to suction today. Hopefully, I can take them off suction tomorrow and the chest tubes can be removed on Thursday. We will leave the Boggs in until the chest tubes are removed as the patient had urinary retention requiring replacement of the Boggs. Qualifiers: Chest pain type: unspecified Qualified Code(s): R07.9 - Chest pain, unspecified - Subjective Interval history: The patient complains of generalized weakness and fatigue. Vital Signs, Last 4 Hours Temp Pulse Resp BP 02/22/17 06:00 98.3 F 86 16 119/70 Oxgyen Flow Rate Oxygen Flow Rate (LPM) 2 Weight 02/20/17 02/21/17 02/22/17 23:59 23:59 23:59 Weight 94.1 kg 92.7 kg Lungs are clear to percussion and auscultation. Heart is in a normal sinus rhythm. The incision is healing well without signs of infection. Chest tube drainage is minimal and there is no air leak. Chest x-ray reveals subcutaneous air, but no pneumothorax. - Labs 02/22/17 04:28 02/22/17 04:28 Lab Results, Last 24 hours 02/22/17 02/22/17 04:28 04:28 WBC 7.1 Hgb 10.0 L Hct 32.3 L Plt Count 230 Sodium 134 L Potassium 4.4 Chloride 105 Carbon Dioxide 20 BUN 13 Creatinine 0.69 L Glucose 91 Calcium 8.5 L - VTE Documentation of Mechanical Device: Intermittent pneumatic compression device Consult Discharge Plan - Plan Referrals: Emmanuel Gonzalez DO [Resident] - 02/24/17 2:00 pm
[2017-02-22] MEDS: traZODone 50 MG TABLET PO SCH ×2 (09:14→22:03)
[2017-02-22] MEDS: Lactobacillus 1 EACH CAP.SPRINK PO SCH ×2 (09:14→22:00)
[2017-02-22] MEDS: Thiamine (B-1) 100 MG TABLET PO SCH (09:14)
[2017-02-22] MEDS: amLODIPine 5 MG TABLET PO SCH (09:15)
[2017-02-22] MEDS: Nicotine 21 MG PATCH.TD24 TD SCH (09:16)
[2017-02-22] MEDS: Budesonide/Formoterol 160/4.5 MDI IH SCH ×2 (10:56→21:06)
[2017-02-22] MEDS: *HR* LORazepam 2 MG/ML VIAL IVP PRN ×2 (11:29→19:27)
--- NOTE | 2017-02-22 11:48 | Internal Med Progress Note ---
Date of Encounter: 02/22/17 Time of Encounter: 09:00 - Assessment and plan (1) Alcohol abuse with alcohol-induced disorder Current Visit: Yes Status: Acute Assessment and plan: Alcohol withdrawal protocol. Start IV Ativan as needed for anxiety. High risk for morbidity and mortality and complications due to treatment with IV controlled substances. (2) COPD (chronic obstructive pulmonary disease) Current Visit: Yes Status: Acute Assessment and plan: Not actively wheezing, no acute exacerbation I will continue with DuoNeb's . He completed a course of steroids.. Oxygen supplementation by nasal cannula to maintain saturation above 92%. Qualifiers: COPD type: COPD with acute exacerbation Qualified Code(s): J44.1 - Chronic obstructive pulmonary disease with (acute) exacerbation (3) Essential hypertension Current Visit: Yes Status: Chronic Assessment and plan: Continue with amlodipine and metoprolol. (4) Pancreatic insufficiency Current Visit: Yes Status: Chronic Assessment and plan: Continue Creon with meals. (5) DVT prophylaxis Current Visit: No Status: Acute Assessment and plan: Subcutaneous Lovenox (6) Chest tube in place Current Visit: Yes Status: Acute Assessment and plan: 02/22/2017: Continue chest tube to suction today. Daily dressing changes. Appreciated CT surgery and put. 02/21/2017: 2 chest tubes to suction. I have replaced the dressing which was saturated with fluid. Thoracotomy surgical incision is closed with chaz appears clean with no dehiscence no drainage. Dressing change daily. CT surgery following. IV morphine for pain. He is at high risk for morbidity and complications due to treatment with IV controlled substances for pain and anxiety. (7) Empyema lung Current Visit: Yes Status: Acute Assessment and plan: Appreciate pulmonary input. We will continue with IV antibiotics. Plan for oral antibiotics with a prolonged course and follow-up with pulmonary. Management chest tube. Appreciate CT surgery input. There is some leak and subcutaneous tissue. No clinically evident or radiological evidence of pneumothorax. We will continue with broad-spectrum IV antibiotics. Follow-up cultures, currently negative. (8) Subcutaneous emphysema Current Visit: Yes Status: Acute Assessment and plan: Conservative management. Monitor clinically. Qualifiers: Encounter type: subsequent encounter Qualified Code(s): T79.7XXD - Traumatic subcutaneous emphysema, subsequent encounter - Subjective Interval history: Patient reports right-sided chest pain, sharp, worse with movement and deep inspiration, improved with IV morphine. He reports associated generalized weakness and fatigue. He states that pain gets worse between 2-3 in the morning and a changes with position. Denies subjective fevers and chills. Had urinary retention and Boggs catheter had to be reinserted 2 days ago. - Constitutional Vitals: Temp Pulse Resp BP Pulse Ox 98.3 F 86 16 119/70 92 02/22/17 06:00 02/22/17 06:00 02/22/17 06:00 02/22/17 06:00 02/22/17 02:43 General appearance: Present: cooperative, A&O X 3, answers questions appropriately - Eye Eye exam: Present: PERRL, conjuntiva pink, sclera anicteric Pupils: Present: PERRL - Neck Neck exam general surgery: Present: supple, trachea midline. Absent: lymphadenopathy - Respiratory Respiratory exam: Absent: accessory muscle use, rales, rhonchi, wheezes Additional comments: Decreased breath sounds at the right base. Subcutaneous emphysema and soft tissue swelling of the right chest and right pectoral area. Similar in size as yesterday. Chest tubes are in place covered with dressing. - Cardiovascular Cardiovascular exam: Present: RRR, +S1, +S2. Absent: diastolic murmur, gallop, rubs, systolic murmur - GI/Abdominal GI/Abdominal exam: Present: normal bowel sounds, soft, no peritoneal signs. Absent: distended, tenderness - Extremities Exam Extremities exam: Present: warm, radial pulses palpable and symetrical. Absent : calf tenderness, cyanotic, pedal edema - Neurological Exam Neurological exam: Present: CN II-XII intact, oriented X3, no focal deficits. Absent: pronater drift, facial droop, speech deficit - Skin Skin exam: Present: dry, intact Internal Medicine: Result - Labs CBC & Chem 7: 02/22/17 04:28 02/22/17 04:28 Labs: Short CBC 02/22/17 Range/Units 04:28 WBC 7.1 (4.3-11.1) K/mcL Hgb 10.0 L (12.9-16.9) g/dL Hct 32.3 L (37.5-50.1) % Plt Count 230 (140-400) K/mcL Neutrophils # 5.3 (1.6-8.9) K/mcL BMP 02/22/17 04:28 Sodium 134 L Potassium 4.4 Chloride 105 Carbon Dioxide 20 BUN 13 Creatinine 0.69 L Glucose 91 Calcium 8.5 L - ABG Interpretation ABG results: ABG ABG pH 7.38 pH Units (7.32-7.45) 02/17/17 03:43 ABG pCO2 42 mmHg (35-45) 02/17/17 03:43 ABG pO2 104 mmHg (85-104) 02/17/17 03:43 ABG O2 Saturation 98 % (95-98) 02/17/17 03:43 PT/INR, D-dimer PT 15.9 Seconds (9.4-12.1) H 02/15/17 09:40 - Impressions Impressions Chest X-Ray 02/22/17 00:01 IMPRESSION: Persisting right basilar airspace disease following thoracotomy. No significant pneumothorax with 2 chest tubes remaining in good position. D/ / Kin Rosenberg MD / Kin Rosenberg MD Interpreting Provider: Kin Rosenberg MD - VTE Documentation of Mechanical Device: Intermittent pneumatic compression device Consult Discharge Plan - Plan Referrals: Emmanuel Gonzalez DO [Resident] - 02/24/17 2:00 pm
[2017-02-22] MEDS: *HR* Morphine 2 MG/ML SYRINGE IVP PRN ×3 (14:28→19:27)
[2017-02-22] MEDS: Ipratropium/Albuterol Neb 3 ML IH PRN (16:58)
[2017-02-22] MEDS: Divalproex (24 HR) 250 MG TABLET PO SCH (21:59)
[2017-02-23] MEDS: Meropenem 1,000 MG in 0.9 % Sodium Chloride Mini Bag 100 ML IVPB SCH ×4 (00:46→23:21)
[2017-02-23] MEDS: *HR* LORazepam 2 MG/ML VIAL IVP PRN ×4 (00:51→17:18)
[2017-02-23 05:23] LABS: Hematocrit 29.8 % (37.5-50.1); Hemoglobin 9.5 g/dL (12.9-16.9); Mean Corpuscular HGB Conc 31.9 g/dL (31.6-35.5); Mean Corpuscular Hemoglobin 26.9 pg (28.0-33.3); Mean Corpuscular Volume 84.4 fL (83.0-100.0); Mean Platelet Volume 9.9 fL (9.4-12.4); Platelet Count 250 K/mcL (140-400); Red Blood Count 3.53 M/mcL (4.19-5.50); Red Cell Distribution Width 17.2 % (11.5-14.5)
[2017-02-23 05:48] LABS: BUN/Creatinine Ratio 17 (6-26); Blood Urea Nitrogen 12 mg/dL (8-26); Calcium 8.7 mg/dL (8.6-10.8); Carbon Dioxide 24 mEq/L (19-29); Chloride 101 mEq/L (98-109); Glucose 99 mg/dL (70-99); Osmolality,Calculated 274 (280-300); Potassium 4.2 mEq/L (3.5-4.5); Sodium 132 mEq/L (136-145); eGFR For African Americans > 60 (> 60); eGFR For Non-African Americans > 60 (> 60)
[2017-02-23 06:03] LABS: Monocytes # 0.2 K/mcL (0.0-1.3)
[2017-02-23 06:04] LABS: Anisocytosis 1+ (Not Present); Platelet Estimate Normal (Normal); Reactive Lymphocytes Present (Not Present)
[2017-02-23] MEDS: *HR* Enoxaparin 40 MG/0.4 ML SYRINGE SQ SCH (06:36)
[2017-02-23] MEDS: Sucralfate 1 GM TABLET PO SCH ×3 (06:39→17:18)
[2017-02-23] MEDS: Pantoprazole 40 MG VIAL IVP SCH (06:40)
[2017-02-23] MEDS: *HR* OxyCODONE/APAP 5/325 TABLET PO PRN ×3 (06:46→17:18)
--- NOTE | 2017-02-23 08:39 | Cardiothoracic Progress Note ---
Date of Encounter: 02/23/17 Time of Encounter: 08:37 - Assessment and plan (1) Chest pain Current Visit: No Status: Resolved I discontinued the chest tube suction. We will check a chest x-ray tomorrow morning. Hopefully, the chest tubes and Boggs can be removed tomorrow. The patient is afebrile and his white blood cell count is down to 7000. Qualifiers: Chest pain type: unspecified Qualified Code(s): R07.9 - Chest pain, unspecified - Subjective Interval history: The patient complains of generalized aches and pains. Vital Signs, Last 4 Hours Temp Pulse Resp BP Pulse Ox 02/23/17 08:30 95 02/23/17 07:22 98.0 F 89 18 112/75 95 Oxgyen Flow Rate Oxygen Flow Rate (LPM) 2 Clinical Data, last 8 Hours Output, Chest Tube Drainage 0 Amount [Right Lateral Chest #2 ] Weight 02/21/17 02/22/17 02/23/17 23:59 23:59 23:59 Weight 94.1 kg 92.7 kg Lungs are clear to percussion and auscultation. His subcutaneous emphysema is stable to improved. Chest tubes have minimal drainage and no air leak. - Labs 02/23/17 05:16 02/23/17 05:16 Lab Results, Last 24 hours 02/23/17 02/23/17 05:16 05:16 WBC 7.3 Hgb 9.5 L Hct 29.8 L Plt Count 250 Sodium 132 L Potassium 4.2 Chloride 101 Carbon Dioxide 24 BUN 12 Creatinine 0.71 L Glucose 99 Calcium 8.7 - VTE Documentation of Mechanical Device: Intermittent pneumatic compression device Consult Discharge Plan - Plan Referrals: Emmanuel Gonzalez DO [Resident] - 02/24/17 2:00 pm
[2017-02-23] MEDS: traZODone 50 MG TABLET PO SCH ×2 (08:50→20:01)
[2017-02-23] MEDS: Lactobacillus 1 EACH CAP.SPRINK PO SCH ×2 (08:50→20:01)
[2017-02-23] MEDS: amLODIPine 5 MG TABLET PO SCH (08:50)
[2017-02-23] MEDS: Thiamine (B-1) 100 MG TABLET PO SCH (08:50)
[2017-02-23] MEDS: Nicotine 21 MG PATCH.TD24 TD SCH (08:51)
[2017-02-23] MEDS: *HR* Morphine 2 MG/ML SYRINGE IVP PRN ×6 (08:52→23:26)
[2017-02-23] MEDS ORDERED: *HR* LORazepam 2 MG/ML VIAL IVP ONE (09:31)
[2017-02-23] MEDS: Budesonide/Formoterol 160/4.5 MDI IH SCH ×2 (10:56→21:45)
--- NOTE | 2017-02-23 17:51 | Internal Med Progress Note ---
Date of Encounter: 02/23/17 Time of Encounter: 09:00 - Assessment and plan (1) Alcohol abuse with alcohol-induced disorder Current Visit: Yes Status: Acute Assessment and plan: Alcohol withdrawal protocol. Start IV Ativan as needed for anxiety. High risk for morbidity and mortality and complications due to treatment with IV controlled substances. (2) COPD (chronic obstructive pulmonary disease) Current Visit: Yes Status: Acute Assessment and plan: Not actively wheezing, no acute exacerbation I will continue with DuoNeb's . He completed a course of steroids.. Oxygen supplementation by nasal cannula to maintain saturation above 92%. Qualifiers: COPD type: COPD with acute exacerbation Qualified Code(s): J44.1 - Chronic obstructive pulmonary disease with (acute) exacerbation (3) Essential hypertension Current Visit: Yes Status: Chronic Assessment and plan: Continue with amlodipine and metoprolol. (4) Pancreatic insufficiency Current Visit: Yes Status: Chronic Assessment and plan: Continue Creon with meals. (5) DVT prophylaxis Current Visit: No Status: Acute Assessment and plan: Subcutaneous Lovenox (6) Chest tube in place Current Visit: Yes Status: Acute Assessment and plan: 02/23/2017: Appreciate CT surgery input. The chest tube was water-sealed today. We will obtain chest x-ray in the morning. 02/22/2017: Continue chest tube to suction today. Daily dressing changes. Appreciated CT surgery and put. 02/21/2017: 2 chest tubes to suction. I have replaced the dressing which was saturated with fluid. Thoracotomy surgical incision is closed with chaz appears clean with no dehiscence no drainage. Dressing change daily. CT surgery following. IV morphine for pain. He is at high risk for morbidity and complications due to treatment with IV opiates and benzodiazepines for pain and anxiety respectively. (7) Empyema lung Current Visit: Yes Status: Acute Assessment and plan: 02/23/2017: Day 10 of 14 of meropenem. Last dose on 02/27/2017. Then switch to Augmentin and continue for 1-2 weeks and follow-up with outpatient pulmonary. Patient currently afebrile and white blood cell count has normalized. 02/22/2017: Appreciate pulmonary input. We will continue with IV antibiotics. Plan for oral antibiotics with a prolonged course and follow-up with pulmonary. Management chest tube. Appreciate CT surgery input. There is some leak and subcutaneous tissue. No clinically evident or radiological evidence of pneumothorax. We will continue with broad-spectrum IV antibiotics. Follow-up cultures, currently negative. (8) Subcutaneous emphysema Current Visit: Yes Status: Acute Assessment and plan: Conservative management. Monitor clinically. Qualifiers: Encounter type: subsequent encounter Qualified Code(s): T79.7XXD - Traumatic subcutaneous emphysema, subsequent encounter - Subjective Interval history: 02/23/2017: Patient reports right-sided sharp chest pain, unchanged from yesterday. 02/22/2017: Patient reports right-sided chest pain, sharp, worse with movement and deep inspiration, improved with IV morphine. He reports associated generalized weakness and fatigue. He states that pain gets worse between 2-3 in the morning and a changes with position. Denies subjective fevers and chills. Had urinary retention and Boggs catheter had to be reinserted 2 days ago. - Constitutional Vitals: Temp Pulse Resp BP Pulse Ox 97.9 F 94 18 106/70 93 02/23/17 15:13 02/23/17 15:13 02/23/17 15:13 02/23/17 15:13 02/23/17 15:13 General appearance: Present: cooperative, A&O X 3, answers questions appropriately - Respiratory Respiratory exam: Present: decreased breath sounds (At right base), CTAB. Absent: accessory muscle use, rales, rhonchi, wheezes Additional comments: Chest tubes present in place covered with dressing. - Cardiovascular Cardiovascular exam: Present: RRR, +S1, +S2. Absent: diastolic murmur, gallop, rubs, systolic murmur - GI/Abdominal GI/Abdominal exam: Present: normal bowel sounds, soft, no peritoneal signs. Absent: distended, tenderness - Extremities Exam Extremities exam: Present: warm, radial pulses palpable and symetrical. Absent : calf tenderness, cyanotic, pedal edema - Neurological Exam Neurological exam: Present: CN II-XII intact, oriented X3, no focal deficits. Absent: pronater drift, facial droop, speech deficit - Skin Skin exam: Present: dry, intact Internal Medicine: Result - Labs CBC & Chem 7: 02/23/17 05:16 02/23/17 05:16 Labs: Short CBC 02/23/17 Range/Units 05:16 WBC 7.3 (4.3-11.1) K/mcL Hgb 9.5 L (12.9-16.9) g/dL Hct 29.8 L (37.5-50.1) % Plt Count 250 (140-400) K/mcL Neutrophils # 6.0 (1.6-8.9) K/mcL BMP 02/23/17 05:16 Sodium 132 L Potassium 4.2 Chloride 101 Carbon Dioxide 24 BUN 12 Creatinine 0.71 L Glucose 99 Calcium 8.7 - ABG Interpretation ABG results: ABG ABG pH 7.38 pH Units (7.32-7.45) 02/17/17 03:43 ABG pCO2 42 mmHg (35-45) 02/17/17 03:43 ABG pO2 104 mmHg (85-104) 02/17/17 03:43 ABG O2 Saturation 98 % (95-98) 02/17/17 03:43 PT/INR, D-dimer PT 15.9 Seconds (9.4-12.1) H 02/15/17 09:40 - VTE Documentation of Mechanical Device: Intermittent pneumatic compression device Consult Discharge Plan - Plan Referrals: Emmanuel Gonzalez DO [Resident] - 02/24/17 2:00 pm
[2017-02-23] MEDS: Divalproex (24 HR) 250 MG TABLET PO SCH (20:01)
[2017-02-24] MEDS: *HR* Morphine 2 MG/ML SYRINGE IVP PRN ×6 (02:46→20:21)
[2017-02-24] MEDS: Ipratropium/Albuterol Neb 3 ML IH PRN (03:15)
[2017-02-24 05:24] LABS: Basophils % 0.4 %; Eosinophils # 0.1 K/mcL (0.0-0.6); Hematocrit 29.3 % (37.5-50.1); Hemoglobin 9.3 g/dL (12.9-16.9); Lymphocytes # 1.2 K/mcL (0.6-4.6); Lymphocytes % 16.1 %; Mean Corpuscular HGB Conc 31.7 g/dL (31.6-35.5); Mean Corpuscular Hemoglobin 27.1 pg (28.0-33.3); Mean Corpuscular Volume 85.4 fL (83.0-100.0); Mean Platelet Volume 10.8 fL (9.4-12.4); Monocytes # 0.4 K/mcL (0.0-1.3); Monocytes % 5.3 %; Neutrophils # 5.5 K/mcL (1.6-8.9); Platelet Count 249 K/mcL (140-400); Red Blood Count 3.43 M/mcL (4.19-5.50); Red Cell Distribution Width 17.3 % (11.5-14.5); Segmented Neutrophils % 76.2 %
[2017-02-24 05:35] LABS: BUN/Creatinine Ratio 22 (6-26); Blood Urea Nitrogen 16 mg/dL (8-26); Calcium 8.6 mg/dL (8.6-10.8); Carbon Dioxide 22 mEq/L (19-29); Chloride 102 mEq/L (98-109); Glucose 120 mg/dL (70-99); Osmolality,Calculated 276 (280-300); Potassium 3.8 mEq/L (3.5-4.5); Sodium 132 mEq/L (136-145); eGFR For African Americans > 60 (> 60); eGFR For Non-African Americans > 60 (> 60)
[2017-02-24] MEDS: *HR* Enoxaparin 40 MG/0.4 ML SYRINGE SQ SCH (06:22)
[2017-02-24] MEDS: *HR* LORazepam 2 MG/ML VIAL IVP PRN ×2 (06:51→15:23)
[2017-02-24] MEDS: Budesonide/Formoterol 160/4.5 MDI IH SCH ×2 (07:51→19:59)
[2017-02-24] MEDS: Pantoprazole 40 MG VIAL IVP SCH (09:16)
[2017-02-24] MEDS: Meropenem 1,000 MG in 0.9 % Sodium Chloride Mini Bag 100 ML IVPB SCH ×3 (09:16→23:58)
[2017-02-24] MEDS: Lactobacillus 1 EACH CAP.SPRINK PO SCH ×2 (09:17→20:20)
[2017-02-24] MEDS: traZODone 50 MG TABLET PO SCH ×2 (09:17→20:20)
[2017-02-24] MEDS: Nicotine 21 MG PATCH.TD24 TD SCH (09:17)
[2017-02-24] MEDS: Thiamine (B-1) 100 MG TABLET PO SCH (09:17)
[2017-02-24] MEDS: amLODIPine 5 MG TABLET PO SCH (09:18)
[2017-02-24] MEDS: Sucralfate 1 GM TABLET PO SCH ×3 (09:19→15:23)
--- NOTE | 2017-02-24 16:49 | Cardiothoracic Progress Note ---
Date of Encounter: 02/24/17 Time of Encounter: 16:47 - Assessment and plan (1) Pleural effusion Current Visit: Yes Status: Acute The patient remained stable that evidence of sepsis. The chest tubes on waterseal without evidence of air leak. If the chest tube drainage remains low, the chest tubes will be removed tomorrow morning. The assessment and plan as outlined above was discussed with the patient and/or family members who expressed understanding and agreement. All questions were answered. - Subjective Procedure(s) Performed: POD #8 S/P Right thoracotomy with decortication Interval history: The patient remains hemodynamically stable without evidence of sepsis. He is breathing comfortably. He has some postoperative incisional discomfort. Vital Signs, Last 4 Hours Temp Pulse Resp BP Pulse Ox 02/24/17 16:01 100.9 F H 90 18 130/83 97 Oxgyen Flow Rate Oxygen Flow Rate (LPM) 2 Clinical Data, last 8 Hours Output, Chest Tube Drainage 0 Amount [Right Lateral Chest #2 ] Output, Chest Tube Drainage 10 Amount [Right Lateral Chest #2 ] Output, Chest Tube Drainage 10 Amount [Right] Output, Chest Tube Drainage 20 Amount [Right] Weight 02/22/17 02/23/17 02/24/17 23:59 23:59 23:59 Weight 92.7 kg 91.9 kg - Physical Examination General: Conversant, No Apparent Distress Neck: No JVD, Normal carotid pulses Cardiac: Reg Rate and Rhythm, Normal S1 and S2, No Murmur Incision: No signs of infection, Dry/intact dressing Chest tubes: Minimal drainage, Other (No air leak.) Lungs: Normal Breath Sounds, No Wheeze, Rales, Rhonchi Neuro: Alert and responsive, No focal deficits noted Vascular: Normal capillary refill Extremities: No Clubbing, No Cyanosis, No Edema - Labs 02/24/17 04:53 02/24/17 04:53 Lab Results, Last 24 hours 02/24/17 02/24/17 04:53 04:53 WBC 7.2 Hgb 9.3 L Hct 29.3 L Plt Count 249 Sodium 132 L Potassium 3.8 Chloride 102 Carbon Dioxide 22 BUN 16 Creatinine 0.74 Glucose 120 H Calcium 8.6 - Imaging Chest Xray: image reviewed (No pneumothorax. Resolving right lower lobe infiltrative process.) - VTE Documentation of Mechanical Device: Intermittent pneumatic compression device Consult Discharge Plan - Plan Referrals: Geosling,Emmanuel Hipolito, DO [Resident] - 02/24/17 2:00 pm
[2017-02-24] MEDS: *HR* OxyCODONE Immed Rel 5 MG TABLET PO PRN (16:57)
[2017-02-24 17:44] LABS: ABG Base Excess 5.6 mEq/L (-2.0 to 3.0); ABG Glucose 96 mg/dL (60-95); ABG HCO3 30.6 mEQ/L (21-27); ABG Hematocrit 39 % (35-51); ABG Ionized Calcium 1.17 mmol/L (1.15-1.35); ABG Oxygen Saturation 96 % (95-98); ABG PCO2 45 mmHg (35-45); ABG PH 7.44 pH Units (7.32-7.45); ABG PO2 78 mmHg (85-104)
[2017-02-24 17:48] LABS: ABG Base Excess 8.1 mEq/L (-2.0 to 3.0); ABG Glucose 149 mg/dL (60-95); ABG Hematocrit 25 % (35-51); ABG Ionized Calcium 0.97 mmol/L (1.15-1.35); ABG Oxygen Saturation 100 % (95-98); ABG PCO2 41 mmHg (35-45); ABG PO2 390 mmHg (85-104); ABG TCO2 33.3 mEq/L (20-26)
[2017-02-24 17:48] LABS: ABG Base Excess 6.1 mEq/L (-2.0 to 3.0); ABG Glucose 120 mg/dL (60-95); ABG HCO3 30.6 mEQ/L (21-27); ABG Hematocrit 36 % (35-51); ABG Oxygen Saturation 100 % (95-98); ABG PCO2 43 mmHg (35-45); ABG PH 7.46 pH Units (7.32-7.45); ABG PO2 556 mmHg (85-104); ABG TCO2 31.9 mEq/L (20-26)
[2017-02-24 17:49] LABS: ABG Base Excess 6.2 mEq/L (-2.0 to 3.0); ABG Glucose 129 mg/dL (60-95); ABG HCO3 31.2 mEQ/L (21-27); ABG Hematocrit 26 % (35-51); ABG Ionized Calcium 1.04 mmol/L (1.15-1.35); ABG Oxygen Saturation 100 % (95-98); ABG PCO2 47 mmHg (35-45); ABG PH 7.43 pH Units (7.32-7.45); ABG PO2 258 mmHg (85-104); ABG TCO2 32.6 mEq/L (20-26)
[2017-02-24 17:50] LABS: ABG Base Excess 5.6 mEq/L (-2.0 to 3.0); ABG Glucose 102 mg/dL (60-95); ABG HCO3 29.8 mEQ/L (21-27); ABG Hematocrit 23 % (35-51); ABG Ionized Calcium 1.05 mmol/L (1.15-1.35); ABG Oxygen Saturation 100 % (95-98); ABG PCO2 41 mmHg (35-45); ABG PH 7.47 pH Units (7.32-7.45); ABG PO2 382 mmHg (85-104); ABG TCO2 31.1 mEq/L (20-26)
--- NOTE | 2017-02-24 19:13 | Internal Med Progress Note ---
Date of Encounter: 02/24/17 Time of Encounter: 08:00 - Assessment and plan (1) Empyema lung Current Visit: Yes Status: Acute Assessment and plan: 02/24 - Day 11 of 14 of Merrem. Tolerating medication. Remains afebrile. WBC normal. CTs in place. 02/23/2017: Day 10 of 14 of meropenem. Last dose on 02/27/2017. Then switch to Augmentin and continue for 1-2 weeks and follow-up with outpatient pulmonary. Patient currently afebrile and white blood cell count has normalized. 02/22/2017: Appreciate pulmonary input. We will continue with IV antibiotics. Plan for oral antibiotics with a prolonged course and follow-up with pulmonary. Management chest tube. Appreciate CT surgery input. There is some leak and subcutaneous tissue. No clinically evident or radiological evidence of pneumothorax. We will continue with broad-spectrum IV antibiotics. Follow-up cultures, currently negative. (2) Subcutaneous emphysema Current Visit: Yes Status: Acute Assessment and plan: Conservative management. Monitor clinically. Qualifiers: Encounter type: subsequent encounter Qualified Code(s): T79.7XXD - Traumatic subcutaneous emphysema, subsequent encounter (3) Chest tube in place Current Visit: Yes Status: Acute Assessment and plan: 02/24: Appreciate CT surgery. Plan for removal tomorrow. 02/23/2017: Appreciate CT surgery input. The chest tube was water-sealed today. We will obtain chest x-ray in the morning. 02/22/2017: Continue chest tube to suction today. Daily dressing changes. Appreciated CT surgery and put. 02/21/2017: 2 chest tubes to suction. I have replaced the dressing which was saturated with fluid. Thoracotomy surgical incision is closed with chaz appears clean with no dehiscence no drainage. Dressing change daily. CT surgery following. IV morphine for pain. He is at high risk for morbidity and complications due to treatment with IV opiates and benzodiazepines for pain and anxiety respectively. (4) Pancreatic insufficiency Current Visit: Yes Status: Chronic Assessment and plan: Continue Creon with meals. (5) Essential hypertension Current Visit: Yes Status: Chronic Assessment and plan: Continue with amlodipine and metoprolol. (6) Alcohol abuse with alcohol-induced disorder Current Visit: Yes Status: Acute Assessment and plan: Continue PRN meds for any agitation. - Subjective Interval history: Mr. Chen is currently admitted for acute ETOH withdrawl as well as multiple medical issues. He currently has 2 R side chest tubes. He remains moderate to high risk due to potentially for worsening resp issues. Mr. Chen is only complaining of pain. No dyspnea. No fever or chills. Denies abd pain. Bowels and appetite OK. - Constitutional Vitals: Temp Pulse Resp BP Pulse Ox 100.9 F H 90 18 130/83 97 02/24/17 16:01 02/24/17 16:01 02/24/17 16:01 02/24/17 16:01 02/24/17 16:01 General appearance: Present: cooperative, A&O X 3, answers questions appropriately - Head Head exam: Present: normocephalic - Eye Eye exam: Present: conjuntiva pink - ENT ENT exam: Present: mucous membranes dry - Respiratory Respiratory exam: Present: decreased breath sounds, prolonged expiratory phase, rhonchi - Cardiovascular Cardiovascular exam: Present: distant heart sounds, RRR. Absent: systolic murmur, tachycardia - GI/Abdominal GI/Abdominal exam: Present: soft. Absent: tenderness - Extremities Exam Extremities exam: Present: warm. Absent: tenderness - Neurological Exam Neurological exam: Present: alert, oriented X3 - Skin Skin exam: Present: warm. Absent: rash Internal Medicine: Result - Labs CBC & Chem 7: 02/24/17 04:53 02/24/17 04:53 Labs: Short CBC 02/24/17 Range/Units 04:53 WBC 7.2 (4.3-11.1) K/mcL Hgb 9.3 L (12.9-16.9) g/dL Hct 29.3 L (37.5-50.1) % Plt Count 249 (140-400) K/mcL Neutrophils # 5.5 (1.6-8.9) K/mcL BMP 02/24/17 04:53 Sodium 132 L Potassium 3.8 Chloride 102 Carbon Dioxide 22 BUN 16 Creatinine 0.74 Glucose 120 H Calcium 8.6 - ABG Interpretation ABG results: ABG ABG pH 7.47 pH Units (7.32-7.45) H 02/24/17 10:11 ABG pCO2 41 mmHg (35-45) 02/24/17 10:11 ABG pO2 382 mmHg (85-104) H 02/24/17 10:11 ABG O2 Saturation 100 % (95-98) H 02/24/17 10:11 PT/INR, D-dimer PT 15.9 Seconds (9.4-12.1) H 02/15/17 09:40 - Impressions Impressions Chest CT 02/20/17 10:48 IMPRESSION: 1. Anterior-lateral right lower lobe approximately 5 cm gas-filled cavity has developed in the area of consolidation on previous CT 02/06/2017. Findings are concerning for lung abscess. There appears to be communication of this cavity into the pleural space, likely accounting for the hydropneumothorax. 2. New 2.5 cm collection in the right lower lobe with fluid and small amount a gas concerning for an additional lung abscess. 3. Small right hydropneumothorax. Mild dependent atelectasis in the right lower lobe. 4. Postoperative changes in the right chest wall. Gas and fluid in the right chest wall soft tissues, deep to the serratus muscle. Findings were discussed with Brenden Zuniga at 12:10 p.m. on 02/20/2017 D/ / 02/20/2017 12:22:26 Good Mendiola MD / [email or web address] Interpreting Provider: Good Mendiola MD Chest X-Ray 02/24/17 00:01 IMPRESSION: Improving aeration, right lower lung with mild residual airspace disease. Decreasing right lateral chest wall emphysema. No pneumothorax with 2 chest tubes remaining in good position towards the apex. D/ / Kin Rosenberg MD / Kin Rosenberg MD Interpreting Provider: Kin Rosenberg MD - VTE Documentation of Mechanical Device: Intermittent pneumatic compression device Consult Discharge Plan - Plan Referrals: Emmanuel Gonzalez DO [Resident] - 02/24/17 2:00 pm
[2017-02-24] MEDS ORDERED: Mag Hydrox/Al Hydrox/Simeth 30 ML UDC PO PRN (20:08)
[2017-02-24] MEDS: Divalproex (24 HR) 250 MG TABLET PO SCH (20:17)
[2017-02-24] MEDS: *HR* OxyCODONE/APAP 5/325 TABLET PO PRN (23:59)
[2017-02-25] MEDS: *HR* Morphine 2 MG/ML SYRINGE IVP PRN ×2 (04:28→07:54)
[2017-02-25] MEDS: *HR* Enoxaparin 40 MG/0.4 ML SYRINGE SQ SCH (06:00)
[2017-02-25] MEDS: *HR* OxyCODONE/APAP 5/325 TABLET PO PRN ×3 (06:04→19:51)
[2017-02-25] MEDS: Budesonide/Formoterol 160/4.5 MDI IH SCH ×2 (07:51→21:32)
--- NOTE | 2017-02-25 08:09 | Cardiothoracic Progress Note ---
Date of Encounter: 02/25/17 Time of Encounter: 08:08 - Assessment and plan (1) Pleural effusion Current Visit: Yes Status: Acute The patient remained stable that evidence of sepsis. The chest tubes were removed. The assessment and plan as outlined above was discussed with the patient and/or family members who expressed understanding and agreement. All questions were answered. - Subjective Procedure(s) Performed: POD #9 S/P Right thoracotomy with decortication Interval history: The patient remains hemodynamically stable without evidence of sepsis. He is breathing comfortably. He has some postoperative incisional discomfort. Vital Signs, Last 4 Hours Temp Pulse Resp BP Pulse Ox 02/25/17 07:53 16 98 02/25/17 07:00 84 16 107/70 98 02/25/17 04:28 98.2 F 81 18 104/61 97 Oxgyen Flow Rate Oxygen Flow Rate (LPM) 2 Clinical Data, last 8 Hours Output, Chest Tube Drainage 0 Amount [Right Lateral Chest #2 ] Output, Chest Tube Drainage 0 Amount [Right] Output, Chest Tube Drainage 10 Amount [Right] Weight 02/23/17 02/24/17 02/25/17 23:59 23:59 23:59 Weight 91.9 kg - Physical Examination General: Conversant, No Apparent Distress Neck: No JVD, Normal carotid pulses Cardiac: Reg Rate and Rhythm, Normal S1 and S2, No Murmur Incision: No signs of infection, Dry/intact dressing Chest tubes: Minimal drainage, Other (No air leak.) Lungs: Normal Breath Sounds, No Wheeze, Rales, Rhonchi Neuro: Alert and responsive, No focal deficits noted Vascular: Normal capillary refill Extremities: No Clubbing, No Cyanosis, No Edema - Labs 02/24/17 04:53 02/24/17 04:53 - VTE Documentation of Mechanical Device: Intermittent pneumatic compression device Consult Discharge Plan - Plan Referrals: Emmanuel Gonzalez DO [Resident] - 02/24/17 2:00 pm
[2017-02-25] MEDS: Meropenem 1,000 MG in 0.9 % Sodium Chloride Mini Bag 100 ML IVPB SCH ×2 (09:41→15:21)
[2017-02-25] MEDS: *HR* LORazepam 2 MG/ML VIAL IVP PRN ×3 (09:44→19:50)
[2017-02-25] MEDS: *HR* OxyCODONE Immed Rel 5 MG TABLET PO PRN ×2 (09:44→15:22)
[2017-02-25] MEDS: Thiamine (B-1) 100 MG TABLET PO SCH (09:45)
[2017-02-25] MEDS: Lactobacillus 1 EACH CAP.SPRINK PO SCH ×2 (09:45→19:49)
[2017-02-25] MEDS: amLODIPine 5 MG TABLET PO SCH (09:45)
[2017-02-25] MEDS: traZODone 50 MG TABLET PO SCH ×2 (09:45→19:50)
[2017-02-25] MEDS: Nicotine 21 MG PATCH.TD24 TD SCH (09:46)
[2017-02-25] MEDS: Sucralfate 1 GM TABLET PO SCH ×3 (09:49→15:22)
--- NOTE | 2017-02-25 19:25 | Internal Med Progress Note ---
Date of Encounter: 02/25/17 Time of Encounter: 09:30 - Assessment and plan (1) Empyema lung Current Visit: Yes Status: Acute Assessment and plan: Changed to PO abx. CTs removed today. No new acute symptoms. 02/24 - Day 11 of 12 of Merrem. Tolerating medication. Remains afebrile. WBC normal. CTs in place. 02/23/2017: Day 10 of 14 of meropenem. Last dose on 02/27/2017. Then switch to Augmentin and continue for 1-2 weeks and follow-up with outpatient pulmonary. Patient currently afebrile and white blood cell count has normalized. 02/22/2017: Appreciate pulmonary input. We will continue with IV antibiotics. Plan for oral antibiotics with a prolonged course and follow-up with pulmonary. Management chest tube. Appreciate CT surgery input. There is some leak and subcutaneous tissue. No clinically evident or radiological evidence of pneumothorax. We will continue with broad-spectrum IV antibiotics. Follow-up cultures, currently negative. (2) Subcutaneous emphysema Current Visit: Yes Status: Acute Assessment and plan: Conservative management. Monitor clinically. Qualifiers: Encounter type: subsequent encounter Qualified Code(s): T79.7XXD - Traumatic subcutaneous emphysema, subsequent encounter (3) Chest tube in place Current Visit: Yes Status: Acute Assessment and plan: 02/25 - chest tubes removed. No issue at this time. Continue to monitor. 02/24: Appreciate CT surgery. Plan for removal tomorrow. 02/23/2017: Appreciate CT surgery input. The chest tube was water-sealed today. We will obtain chest x-ray in the morning. 02/22/2017: Continue chest tube to suction today. Daily dressing changes. Appreciated CT surgery and put. 02/21/2017: 2 chest tubes to suction. I have replaced the dressing which was saturated with fluid. Thoracotomy surgical incision is closed with chaz appears clean with no dehiscence no drainage. Dressing change daily. CT surgery following. IV morphine for pain. He is at high risk for morbidity and complications due to treatment with IV opiates and benzodiazepines for pain and anxiety respectively. (4) Pancreatic insufficiency Current Visit: Yes Status: Chronic Assessment and plan: Continue Creon with meals. (5) Essential hypertension Current Visit: Yes Status: Chronic Assessment and plan: Continue with amlodipine and metoprolol. (6) Alcohol abuse with alcohol-induced disorder Current Visit: Yes Status: Acute Assessment and plan: Continue PRN meds for any agitation. PT/OT evals for d/c planning. - Subjective Interval history: Mr. Chen is currently admitted for acute ETOH withdrawl as well as multiple medical issues. He currently has 2 R side chest tubes. He remains moderate to high risk due to potentially for worsening resp issues. Mr. Chen is upset that the IV pain med has been stopped. I explained that the PO is actually stronger. He insists he is going to go home and his 87 year old grandmother is going to care for him. Chest tubes removed today. No fever or chills. Agrees to get up to chair and work with therapy. - Constitutional Vitals: Temp Pulse Resp BP Pulse Ox 98.2 F 95 18 107/72 95 02/25/17 04:28 02/25/17 15:42 02/25/17 15:42 02/25/17 15:42 02/25/17 15:42 General appearance: Present: cooperative, A&O X 3, answers questions appropriately - Head Head exam: Present: normocephalic - Eye Eye exam: Present: conjuntiva pink - ENT ENT exam: Present: mucous membranes moist - Respiratory Respiratory exam: Present: decreased breath sounds, CTAB. Absent: rales, wheezes - Cardiovascular Cardiovascular exam: Present: RRR. Absent: tachycardia - GI/Abdominal GI/Abdominal exam: Present: soft. Absent: tenderness - Extremities Exam Extremities exam: Present: warm. Absent: pedal edema - Neurological Exam Neurological exam: Present: alert, oriented X3 Internal Medicine: Result - Labs CBC & Chem 7: 02/24/17 04:53 02/24/17 04:53 - ABG Interpretation ABG results: ABG ABG pH 7.47 pH Units (7.32-7.45) H 02/24/17 10:11 ABG pCO2 41 mmHg (35-45) 02/24/17 10:11 ABG pO2 382 mmHg (85-104) H 02/24/17 10:11 ABG O2 Saturation 100 % (95-98) H 02/24/17 10:11 PT/INR, D-dimer PT 15.9 Seconds (9.4-12.1) H 02/15/17 09:40 - VTE Documentation of Mechanical Device: Intermittent pneumatic compression device Consult Discharge Plan - Plan Referrals: Emmanuel Gonzalez DO [Resident] - 02/24/17 2:00 pm
[2017-02-25] MEDS: Divalproex (24 HR) 250 MG TABLET PO SCH (19:49)
[2017-02-26] MEDS: *HR* OxyCODONE Immed Rel 5 MG TABLET PO PRN ×3 (00:08→20:59)
[2017-02-26] MEDS: *HR* LORazepam 2 MG/ML VIAL IVP PRN ×3 (00:45→22:48)
[2017-02-26] MEDS: *HR* OxyCODONE/APAP 5/325 TABLET PO PRN ×2 (01:30→09:09)
[2017-02-26] MEDS: *HR* Enoxaparin 40 MG/0.4 ML SYRINGE SQ SCH (05:40)
[2017-02-26] MEDS: Budesonide/Formoterol 160/4.5 MDI IH SCH ×2 (08:24→21:17)
[2017-02-26] MEDS: Sucralfate 1 GM TABLET PO SCH ×3 (09:07→17:29)
[2017-02-26] MEDS: Thiamine (B-1) 100 MG TABLET PO SCH (09:07)
[2017-02-26] MEDS: Nicotine 21 MG PATCH.TD24 TD SCH (09:07)
[2017-02-26] MEDS: amLODIPine 5 MG TABLET PO SCH (09:08)
[2017-02-26] MEDS: Lactobacillus 1 EACH CAP.SPRINK PO SCH ×2 (09:08→20:57)
[2017-02-26] MEDS: traZODone 50 MG TABLET PO SCH ×2 (09:08→20:58)
--- NOTE | 2017-02-26 09:37 | Cardiothoracic Progress Note ---
Date of Encounter: 02/26/17 Time of Encounter: 09:35 - Assessment and plan (1) Pleural effusion Current Visit: Yes Status: Acute The patient remains hemodynamically stable without evidence of sepsis. The patient has chaz in his incision which will need to be removed. He should see me in the office on , March 12, 2017. The assessment and plan as outlined above was discussed with the patient and/or family members who expressed understanding and agreement. All questions were answered. - Subjective Procedure(s) Performed: POD#10 S/P Right thoracotomy with decortication Interval history: The patient remains hemodynamically stable without evidence of sepsis. He is breathing comfortably. He has some postoperative incisional discomfort. Vital Signs, Last 4 Hours Temp Pulse Resp BP Pulse Ox 02/26/17 08:24 12 93 02/26/17 07:05 97.9 F 94 18 119/68 99 Oxgyen Flow Rate Oxygen Flow Rate (LPM) 2 Weight 02/24/17 02/25/17 02/26/17 23:59 23:59 23:59 Weight 91.9 kg - Physical Examination General: Conversant, No Apparent Distress Neck: No JVD, Normal carotid pulses Cardiac: Reg Rate and Rhythm, Normal S1 and S2, No Murmur Incision: No signs of infection, Dry/intact dressing Lungs: Normal Breath Sounds, No Wheeze, Rales, Rhonchi Neuro: Alert and responsive, No focal deficits noted Vascular: Normal capillary refill Extremities: No Clubbing, No Cyanosis, No Edema - Labs 02/24/17 04:53 02/24/17 04:53 - VTE Documentation of Mechanical Device: Intermittent pneumatic compression device Consult Discharge Plan - Plan Referrals: Emmanuel Gonzalez DO [Resident] - 02/24/17 2:00 pm
--- NOTE | 2017-02-26 18:40 | Internal Med Progress Note ---
Date of Encounter: 02/26/17 Time of Encounter: 13:30 - Assessment and plan (1) Empyema lung Current Visit: Yes Status: Acute Assessment and plan: Continues on PO abx. To follow up with CTS. (2) Subcutaneous emphysema Current Visit: Yes Status: Resolved Assessment and plan: Conservative management. Monitor clinically. Qualifiers: Encounter type: subsequent encounter Qualified Code(s): T79.7XXD - Traumatic subcutaneous emphysema, subsequent encounter (3) Chest tube in place Current Visit: Yes Status: Resolved Assessment and plan: No issues after removal of chest tubes. Pain control. (4) Pancreatic insufficiency Current Visit: Yes Status: Chronic Assessment and plan: Continue Creon with meals. (5) Essential hypertension Current Visit: Yes Status: Chronic Assessment and plan: Continue with amlodipine and metoprolol. (6) Alcohol abuse with alcohol-induced disorder Current Visit: Yes Status: Acute Assessment and plan: Continue PRN meds for any agitation. PT/OT evals for d/c planning. Will be going to SNF. Sitter d/c today. - Subjective Interval history: Mr. Chen is currently admitted for acute ETOH withdrawl as well as multiple medical issues. He remains moderate to high risk due to potentially for worsening resp issues. Mr. Chen is having incisional discomfort but otherwise breathing is OK. No GI issues. No fever or chills. Has been getting up to chair. Working on d/c planning. - Constitutional Vitals: Temp Pulse Resp BP Pulse Ox 97.8 F 88 16 104/65 94 02/26/17 16:27 02/26/17 16:27 02/26/17 16:27 02/26/17 16:27 02/26/17 16:27 General appearance: Present: cooperative, A&O X 3, answers questions appropriately - Head Head exam: Present: normocephalic - Eye Eye exam: Present: conjuntiva pink - ENT ENT exam: Present: mucous membranes moist - Respiratory Respiratory exam: Present: decreased breath sounds, CTAB - Cardiovascular Cardiovascular exam: Present: RRR. Absent: tachycardia - GI/Abdominal GI/Abdominal exam: Present: soft. Absent: tenderness - Extremities Exam Extremities exam: Present: warm. Absent: pedal edema - Neurological Exam Neurological exam: Present: alert, oriented X3, no focal deficits - Skin Skin exam: Present: warm. Absent: rash Internal Medicine: Result - Labs CBC & Chem 7: 02/24/17 04:53 02/24/17 04:53 - ABG Interpretation ABG results: ABG ABG pH 7.47 pH Units (7.32-7.45) H 02/24/17 10:11 ABG pCO2 41 mmHg (35-45) 02/24/17 10:11 ABG pO2 382 mmHg (85-104) H 02/24/17 10:11 ABG O2 Saturation 100 % (95-98) H 02/24/17 10:11 PT/INR, D-dimer PT 15.9 Seconds (9.4-12.1) H 02/15/17 09:40 - VTE Documentation of Mechanical Device: Intermittent pneumatic compression device Consult Discharge Plan - Plan Referrals: Emmanuel Gonzalez DO [Resident] - 02/24/17 2:00 pm
[2017-02-26] MEDS: *HR* OxyCODONE/APAP 10/325 TABLET PO PRN (18:41)
[2017-02-26] MEDS: Divalproex (24 HR) 250 MG TABLET PO SCH (20:57)
[2017-02-27] MEDS: *HR* OxyCODONE/APAP 10/325 TABLET PO PRN ×3 (04:16→21:40)
[2017-02-27] MEDS: *HR* Enoxaparin 40 MG/0.4 ML SYRINGE SQ SCH (05:02)
[2017-02-27] MEDS: *HR* LORazepam 2 MG/ML VIAL IVP PRN (08:01)
[2017-02-27] MEDS: Sucralfate 1 GM TABLET PO SCH ×3 (08:01→16:03)
[2017-02-27] MEDS: *HR* OxyCODONE Immed Rel 5 MG TABLET PO PRN ×2 (08:02→16:03)
[2017-02-27] MEDS: traZODone 50 MG TABLET PO SCH ×2 (08:02→21:41)
[2017-02-27] MEDS: Thiamine (B-1) 100 MG TABLET PO SCH (08:02)
[2017-02-27] MEDS: Lactobacillus 1 EACH CAP.SPRINK PO SCH ×2 (08:02→21:42)
[2017-02-27] MEDS: Nicotine 21 MG PATCH.TD24 TD SCH (08:03)
[2017-02-27] MEDS: amLODIPine 5 MG TABLET PO SCH (08:03)
[2017-02-27 09:11] LABS: Alanine Aminotransferase 47 Units/L (0-55); Albumin 2.2 g/dL (3.5-5.0); Albumin/Globulin Ratio 0.3 (1.1-2.2); Alkaline Phosphatase 205 Units/L (38-126); Aspartate Amino Transferase 60 Units/L (5-34); BUN/Creatinine Ratio 17 (6-26); Bilirubin,Total 0.5 mg/dL (0.2-1.2); Blood Urea Nitrogen 13 mg/dL (8-26); Calcium 8.9 mg/dL (8.6-10.8); Carbon Dioxide 22 mEq/L (19-29); Chloride 101 mEq/L (98-109); Globulin 6.6 g/dL (2.4-3.5); Glucose 97 mg/dL (70-99); Magnesium 1.9 mg/dL (1.6-2.6); Osmolality,Calculated 276 (280-300); Potassium 4.1 mEq/L (3.5-4.5); Sodium 133 mEq/L (136-145); Total Protein 8.8 g/dL (6.0-8.3); eGFR For African Americans > 60 (> 60); eGFR For Non-African Americans > 60 (> 60)
[2017-02-27 09:16] LABS: Hematocrit 29.1 % (37.5-50.1); Hemoglobin 9.3 g/dL (12.9-16.9); Mean Corpuscular Hemoglobin 27.3 pg (28.0-33.3); Mean Corpuscular Volume 85.3 fL (83.0-100.0); Mean Platelet Volume 10.9 fL (9.4-12.4); Platelet Count 256 K/mcL (140-400); Red Blood Count 3.41 M/mcL (4.19-5.50)
[2017-02-27] MEDS: Budesonide/Formoterol 160/4.5 MDI IH SCH ×2 (11:53→20:44)
[2017-02-27] MEDS ORDERED: *HR* LORazepam 2 MG/ML VIAL IVP PRN (14:22)
[2017-02-27] MEDS: diazePAM 2 MG TABLET PO PRN (16:03)
--- NOTE | 2017-02-27 17:27 | Internal Med Progress Note ---
Date of Encounter: 02/27/17 Time of Encounter: 13:15 - Assessment and plan (1) Empyema lung Current Visit: Yes Status: Acute Assessment and plan: Continues on PO abx. To follow up with CTS. No acute issues at this time. (2) Chest tube in place Current Visit: Yes Status: Resolved Assessment and plan: No issues after removal of chest tubes. Pain control. (3) Pancreatic insufficiency Current Visit: Yes Status: Chronic Assessment and plan: Continue Creon with meals. (4) Essential hypertension Current Visit: Yes Status: Chronic Assessment and plan: Continue with amlodipine and metoprolol. (5) Alcohol abuse with alcohol-induced disorder Current Visit: Yes Status: Acute Assessment and plan: Continue PRN meds for any agitation. He remains OK without sitter. Plan for d/c to SNF on Thursday if no issues. Low dose PO Valium added. - Subjective Interval history: Mr. Chen is currently admitted for acute ETOH withdrawl as well as multiple medical issues. He remains moderate to high risk due to potentially for worsening resp issues. Mr. Chen has no new issues. Sitter stopped yesterday and he has been OK. Continues to ask for pain meds. Wants Valium. No other complaints at this time. - Constitutional Vitals: Temp Pulse Resp BP Pulse Ox 97.8 F 85 18 116/67 95 02/27/17 16:00 02/27/17 16:00 02/27/17 16:00 02/27/17 16:00 02/27/17 16:00 General appearance: Present: cooperative, A&O X 3, answers questions appropriately - Head Head exam: Present: normocephalic - Eye Eye exam: Present: conjuntiva pink - Respiratory Respiratory exam: Present: decreased breath sounds, CTAB - Cardiovascular Cardiovascular exam: Present: RRR. Absent: tachycardia - GI/Abdominal GI/Abdominal exam: Present: soft. Absent: tenderness - Extremities Exam Extremities exam: Present: warm. Absent: pedal edema, tenderness - Neurological Exam Neurological exam: Present: alert, no focal deficits - Skin Skin exam: Present: warm. Absent: rash Internal Medicine: Result - Labs CBC & Chem 7: 02/27/17 08:51 02/27/17 08:51 Labs: Short CBC 02/27/17 Range/Units 08:51 WBC 6.2 (4.3-11.1) K/mcL Hgb 9.3 L (12.9-16.9) g/dL Hct 29.1 L (37.5-50.1) % Plt Count 256 (140-400) K/mcL BMP 02/27/17 08:51 Sodium 133 L Potassium 4.1 Chloride 101 Carbon Dioxide 22 BUN 13 Creatinine 0.78 Glucose 97 Calcium 8.9 Liver Function 02/27/17 Range/Units 08:51 Total Bilirubin 0.5 (0.2-1.2) mg/dL AST 60 H (5-34) Units/L ALT 47 (0-55) Units/L Alkaline Phosphatase 205 H (38-126) Units/L Albumin 2.2 L (3.5-5.0) g/dL - ABG Interpretation ABG results: ABG ABG pH 7.47 pH Units (7.32-7.45) H 02/24/17 10:11 ABG pCO2 41 mmHg (35-45) 02/24/17 10:11 ABG pO2 382 mmHg (85-104) H 02/24/17 10:11 ABG O2 Saturation 100 % (95-98) H 02/24/17 10:11 PT/INR, D-dimer PT 15.9 Seconds (9.4-12.1) H 02/15/17 09:40 - VTE Documentation of Mechanical Device: Intermittent pneumatic compression device Consult Discharge Plan - Plan Referrals: Emmanuel Gonzalez DO [Resident] - 03/05/17 4:00 pm
[2017-02-27] MEDS: Divalproex (24 HR) 250 MG TABLET PO SCH (21:40)
[2017-02-27] MEDS ORDERED: *HR* Morphine 2 MG/ML SYRINGE IVP ONE (22:20)
[2017-02-28] MEDS: *HR* Enoxaparin 40 MG/0.4 ML SYRINGE SQ SCH (06:48)
[2017-02-28] MEDS: *HR* OxyCODONE/APAP 10/325 TABLET PO PRN (06:49)
[2017-02-28] MEDS: Sucralfate 1 GM TABLET PO SCH ×3 (06:49→16:59)
[2017-02-28] MEDS: Budesonide/Formoterol 160/4.5 MDI IH SCH ×2 (07:51→22:14)
[2017-02-28] MEDS ORDERED: *HR* Morphine 2 MG/ML SYRINGE IVP PRN (08:42)
[2017-02-28] MEDS ORDERED: *HR* OxyCODONE Immed Rel 5 MG TABLET PO PRN (08:46)
--- NOTE | 2017-02-28 09:43 | Internal Med Progress Note ---
Date of Encounter: 02/28/17 Time of Encounter: 08:45 - Assessment and plan (1) Pain Current Visit: Yes Status: Chronic Assessment and plan: Pt continues to have issues with pain (chronic pain as well as pain from thoracotomy and chest tubes). He has hx of substance abuse. I have elected to adjust his PO regimen to Oxy IR 5mg q4h mod pain Oxy IR 10mg q4h severe pain Oxy IR 2.5mg q2h breakthrough pain Morphine 2mg IV q8h unrelieved by PO meds. (2) Empyema lung Current Visit: Yes Status: Acute Assessment and plan: On PO abx. No new acute issues at this time. (3) Chest tube in place Current Visit: Yes Status: Resolved Assessment and plan: Has chaz in place from thoracotomy. Will need to check for when to remove. (4) Pancreatic insufficiency Current Visit: Yes Status: Chronic Assessment and plan: Continue Creon with meals. (5) Essential hypertension Current Visit: Yes Status: Chronic Assessment and plan: Continue with amlodipine and metoprolol. (6) Alcohol abuse with alcohol-induced disorder Current Visit: Yes Status: Chronic Assessment and plan: Continue PRN meds for any agitation. He remains OK without sitter. Plan for d/c to SNF on Thursday if no issues. Low dose PO Valium added. (7) COPD (chronic obstructive pulmonary disease) Current Visit: Yes Status: Chronic Assessment and plan: Continue duonebs, Qualifiers: COPD type: emphysema Emphysema type: panlobular Qualified Code(s): J43.1 - Panlobular emphysema - Subjective Interval history: Mr. Chen is currently admitted for acute ETOH withdrawl as well as multiple medical issues. He remains moderate to high risk due to potentially for worsening resp issues. Mr. Chen medically is unchanged. He had pain last night and was requesting IV meds. Ultimately he received a dose of Morphine. Currently he is resting comfortably. No fever or chills. No GI symptoms. - Constitutional Vitals: Temp Pulse Resp BP Pulse Ox 98.2 F 80 18 103/56 96 02/28/17 07:13 02/28/17 07:13 02/28/17 07:51 02/28/17 07:13 02/28/17 07:51 General appearance: Present: cooperative, A&O X 3, answers questions appropriately - Head Head exam: Present: normocephalic - Eye Eye exam: Present: EOMI, conjuntiva pink - ENT ENT exam: Present: mucous membranes moist - Respiratory Respiratory exam: Present: decreased breath sounds, rales (Scattered on R). Absent: rhonchi, wheezes - Cardiovascular Cardiovascular exam: Absent: tachycardia - GI/Abdominal GI/Abdominal exam: Present: normal bowel sounds, soft - Extremities Exam Extremities exam: Present: warm. Absent: pedal edema, tenderness - Neurological Exam Neurological exam: Present: alert, oriented X3, no focal deficits - Skin Skin exam: Present: dry, warm. Absent: rash Internal Medicine: Result - Labs CBC & Chem 7: 02/27/17 08:51 02/27/17 08:51 - ABG Interpretation ABG results: ABG ABG pH 7.47 pH Units (7.32-7.45) H 02/24/17 10:11 ABG pCO2 41 mmHg (35-45) 02/24/17 10:11 ABG pO2 382 mmHg (85-104) H 02/24/17 10:11 ABG O2 Saturation 100 % (95-98) H 02/24/17 10:11 PT/INR, D-dimer PT 15.9 Seconds (9.4-12.1) H 02/15/17 09:40 - Impressions Impressions Chest X-Ray 02/27/17 22:23 IMPRESSION: Interval removal of 2 right chest tubes. No definite pneumothorax visualized. There is redemonstration of small right effusion with persistent unchanged right mid and lower lung zone airspace opacities. Stable large amount of subcutaneous gas in the right chest wall. D/ / Camden Dobson MD / Camden Dobson MD Interpreting Provider: Camden Dobson MD - VTE Documentation of Mechanical Device: Intermittent pneumatic compression device Consult Discharge Plan - Plan Referrals: Emmanuel Gonzalez DO [Resident] - 03/05/17 4:00 pm
[2017-02-28] MEDS: Thiamine (B-1) 100 MG TABLET PO SCH (10:04)
[2017-02-28] MEDS: Lactobacillus 1 EACH CAP.SPRINK PO SCH ×2 (10:04→21:16)
[2017-02-28] MEDS: Nicotine 21 MG PATCH.TD24 TD SCH (10:05)
[2017-02-28] MEDS: amLODIPine 5 MG TABLET PO SCH (10:05)
[2017-02-28] MEDS: *HR* OxyCODONE Immed Rel 5 MG TABLET PO PRN ×3 (10:15→21:33)
[2017-02-28] MEDS: traZODone 50 MG TABLET PO SCH ×2 (12:10→21:16)
[2017-02-28] MEDS: *HR* Morphine 2 MG/ML SYRINGE IVP PRN ×2 (15:13→23:48)
[2017-02-28] MEDS: Divalproex (24 HR) 250 MG TABLET PO SCH (21:16)
[2017-02-28] MEDS: diazePAM 2 MG TABLET PO PRN (21:16)
[2017-03-01] MEDS: *HR* OxyCODONE Immed Rel 5 MG TABLET PO PRN ×4 (02:29→21:38)
[2017-03-01 03:23] LABS: Hematocrit 28.8 % (37.5-50.1); Mean Corpuscular HGB Conc 31.3 g/dL (31.6-35.5); Mean Corpuscular Hemoglobin 26.8 pg (28.0-33.3); Mean Corpuscular Volume 85.7 fL (83.0-100.0); Mean Platelet Volume 9.8 fL (9.4-12.4); Platelet Count 253 K/mcL (140-400); Red Blood Count 3.36 M/mcL (4.19-5.50)
[2017-03-01 03:32] LABS: Alanine Aminotransferase 38 Units/L (0-55); Albumin 2.2 g/dL (3.5-5.0); Albumin/Globulin Ratio 0.4 (1.1-2.2); Alkaline Phosphatase 176 Units/L (38-126); Aspartate Amino Transferase 42 Units/L (5-34); BUN/Creatinine Ratio 13 (6-26); Bilirubin,Total 0.5 mg/dL (0.2-1.2); Blood Urea Nitrogen 9 mg/dL (8-26); Calcium 8.7 mg/dL (8.6-10.8); Carbon Dioxide 22 mEq/L (19-29); Chloride 102 mEq/L (98-109); Globulin 6.1 g/dL (2.4-3.5); Glucose 95 mg/dL (70-99); Magnesium 1.6 mg/dL (1.6-2.6); Osmolality,Calculated 276 (280-300); Potassium 3.9 mEq/L (3.5-4.5); Sodium 134 mEq/L (136-145); Total Protein 8.3 g/dL (6.0-8.3); eGFR For African Americans > 60 (> 60); eGFR For Non-African Americans > 60 (> 60)
[2017-03-01] MEDS: *HR* Enoxaparin 40 MG/0.4 ML SYRINGE SQ SCH (06:23)
[2017-03-01] MEDS: Budesonide/Formoterol 160/4.5 MDI IH SCH ×2 (07:55→20:22)
[2017-03-01] MEDS: amLODIPine 5 MG TABLET PO SCH (09:23)
[2017-03-01] MEDS: traZODone 50 MG TABLET PO SCH ×2 (09:24→21:38)
[2017-03-01] MEDS: Sucralfate 1 GM TABLET PO SCH ×3 (09:24→18:53)
[2017-03-01] MEDS: Lactobacillus 1 EACH CAP.SPRINK PO SCH ×2 (09:24→21:38)
[2017-03-01] MEDS: Thiamine (B-1) 100 MG TABLET PO SCH (09:24)
[2017-03-01] MEDS: Nicotine 21 MG PATCH.TD24 TD SCH (09:25)
[2017-03-01] MEDS: *HR* Morphine 2 MG/ML SYRINGE IVP PRN ×2 (09:36→17:06)
--- NOTE | 2017-03-01 17:10 | Internal Med Progress Note ---
Date of Encounter: 03/01/17 Time of Encounter: 08:00 - Assessment and plan (1) Pain Current Visit: Yes Status: Chronic Assessment and plan: Pt continues to have issues with pain (chronic pain as well as pain from thoracotomy and chest tubes). He has hx of substance abuse. Continue current pain regimen: Oxy IR 5mg q4h mod pain Oxy IR 10mg q4h severe pain Oxy IR 2.5mg q2h breakthrough pain Morphine 2mg IV q8h unrelieved by PO meds. (2) Empyema lung Current Visit: Yes Status: Acute Assessment and plan: Karthik removed without difficulty yesterday. Incision looked good. (3) Pancreatic insufficiency Current Visit: Yes Status: Chronic Assessment and plan: Continue Creon with meals. (4) Essential hypertension Current Visit: Yes Status: Chronic Assessment and plan: Continue with amlodipine and metoprolol. (5) Alcohol abuse with alcohol-induced disorder Current Visit: Yes Status: Chronic Assessment and plan: Continue PRN meds for any agitation. He remains OK without sitter. Plan for d/c to SNF on Thursday if no issues. Low dose PO Valium added. (6) COPD (chronic obstructive pulmonary disease) Current Visit: Yes Status: Chronic Assessment and plan: Continue duonebs, Qualifiers: COPD type: emphysema Emphysema type: panlobular Qualified Code(s): J43.1 - Panlobular emphysema - Subjective Interval history: Mr. Chen is currently admitted for acute ETOH withdrawl as well as multiple medical issues. He remains moderate to high risk due to potentially for worsening resp issues. Mr. Chen is ok. He is resting comfortably. Karthik out yesterday. Site looked good. No other new issues. - Constitutional Vitals: Temp Pulse Resp BP Pulse Ox 98.5 F 78 18 109/68 94 03/01/17 15:48 03/01/17 15:48 03/01/17 15:48 03/01/17 15:48 03/01/17 15:48 General appearance: Present: cooperative, A&O X 3, answers questions appropriately - Head Head exam: Present: normocephalic - Eye Eye exam: Present: conjuntiva pink - ENT ENT exam: Present: mucous membranes moist - Respiratory Respiratory exam: Present: decreased breath sounds, CTAB - Cardiovascular Cardiovascular exam: Present: RRR. Absent: tachycardia - GI/Abdominal GI/Abdominal exam: Present: soft. Absent: tenderness - Extremities Exam Extremities exam: Present: warm. Absent: tenderness - Neurological Exam Neurological exam: Present: alert, oriented X3 Internal Medicine: Result - Labs CBC & Chem 7: 03/01/17 03:07 03/01/17 03:07 Labs: Short CBC 03/01/17 Range/Units 03:07 WBC 6.1 (4.3-11.1) K/mcL Hgb 9.0 L (12.9-16.9) g/dL Hct 28.8 L (37.5-50.1) % Plt Count 253 (140-400) K/mcL BMP 03/01/17 03:07 Sodium 134 L Potassium 3.9 Chloride 102 Carbon Dioxide 22 BUN 9 Creatinine 0.72 Glucose 95 Calcium 8.7 Liver Function 03/01/17 Range/Units 03:07 Total Bilirubin 0.5 (0.2-1.2) mg/dL AST 42 H (5-34) Units/L ALT 38 (0-55) Units/L Alkaline Phosphatase 176 H (38-126) Units/L Albumin 2.2 L (3.5-5.0) g/dL - ABG Interpretation ABG results: ABG ABG pH 7.47 pH Units (7.32-7.45) H 02/24/17 10:11 ABG pCO2 41 mmHg (35-45) 02/24/17 10:11 ABG pO2 382 mmHg (85-104) H 02/24/17 10:11 ABG O2 Saturation 100 % (95-98) H 02/24/17 10:11 PT/INR, D-dimer PT 15.9 Seconds (9.4-12.1) H 02/15/17 09:40 - VTE Documentation of Mechanical Device: Intermittent pneumatic compression device Consult Discharge Plan - Plan Referrals: Emmanuel Gonzalez DO [Resident] - 03/05/17 4:00 pm
[2017-03-01] MEDS: Divalproex (24 HR) 250 MG TABLET PO SCH (21:37)
[2017-03-01] MEDS: diazePAM 2 MG TABLET PO PRN (21:38)
[2017-03-02] MEDS: *HR* Morphine 2 MG/ML SYRINGE IVP PRN ×3 (01:00→17:35)
[2017-03-02] MEDS: *HR* OxyCODONE Immed Rel 5 MG TABLET PO PRN ×4 (03:35→18:46)
[2017-03-02] MEDS: *HR* Enoxaparin 40 MG/0.4 ML SYRINGE SQ SCH (07:38)
[2017-03-02] MEDS: Budesonide/Formoterol 160/4.5 MDI IH SCH ×2 (08:08→20:06)
[2017-03-02] MEDS: Sucralfate 1 GM TABLET PO SCH ×3 (09:45→15:38)
[2017-03-02] MEDS: Lactobacillus 1 EACH CAP.SPRINK PO SCH ×2 (09:45→21:30)
[2017-03-02] MEDS: Thiamine (B-1) 100 MG TABLET PO SCH (09:46)
[2017-03-02] MEDS: traZODone 50 MG TABLET PO SCH ×2 (09:46→21:30)
[2017-03-02] MEDS: amLODIPine 5 MG TABLET PO SCH (09:46)
[2017-03-02] MEDS: Nicotine 21 MG PATCH.TD24 TD SCH (09:46)
[2017-03-02] MEDS: diazePAM 2 MG TABLET PO PRN ×2 (09:47→18:47)
[2017-03-02] MEDS ORDERED: *HR* OxyCODONE Immed Rel 5 MG TABLET PO PRN ×2 (11:54)
--- NOTE | 2017-03-02 18:33 | Internal Med Progress Note ---
Date of Encounter: 03/02/17 Time of Encounter: 08:15 - Assessment and plan (1) Pain Current Visit: Yes Status: Chronic Assessment and plan: Pt continues to have issues with pain (chronic pain as well as pain from thoracotomy and chest tubes). He has hx of substance abuse. New regimen ordered: Oxy IR 10mg q4h mod pain Oxy IR 15mg q4h severe pain Oxy IR 5mg q2h breakthrough pain Morphine 2mg IV q8h unrelieved by PO meds. (2) Empyema lung Current Visit: Yes Status: Acute Assessment and plan: Repeat CT reviewed. D/W CTS. Will take months to resolve. Pain will be present for weeks. (3) Pancreatic insufficiency Current Visit: Yes Status: Chronic Assessment and plan: Continue Creon with meals. (4) Essential hypertension Current Visit: Yes Status: Chronic Assessment and plan: Continue with amlodipine and metoprolol. (5) Alcohol abuse with alcohol-induced disorder Current Visit: Yes Status: Chronic Assessment and plan: Continue PRN meds for any agitation. He remains OK without sitter. Plan for d/c to SNF. (6) COPD (chronic obstructive pulmonary disease) Current Visit: Yes Status: Chronic Assessment and plan: Continue duonebs, Qualifiers: COPD type: emphysema Emphysema type: panlobular Qualified Code(s): J43.1 - Panlobular emphysema - Subjective Interval history: Mr. Chen is currently admitted for acute ETOH withdrawl as well as multiple medical issues. He remains moderate to high risk due to potentially for worsening resp issues. Mr. Chen is ok. Continues to complain of pain. Pain med to be increased today. - Constitutional Vitals: Temp Pulse Resp BP Pulse Ox 98.2 F 77 20 122/76 96 03/02/17 15:14 03/02/17 16:00 03/02/17 16:00 03/02/17 16:00 03/02/17 16:00 General appearance: Present: cooperative, A&O X 3, answers questions appropriately - Head Head exam: Present: normocephalic - Eye Eye exam: Present: EOMI, conjuntiva pink - ENT ENT exam: Present: mucous membranes moist - Respiratory Respiratory exam: Present: decreased breath sounds, rhonchi - Cardiovascular Cardiovascular exam: Present: RRR. Absent: tachycardia - GI/Abdominal GI/Abdominal exam: Present: soft. Absent: tenderness - Extremities Exam Extremities exam: Present: warm. Absent: tenderness - Neurological Exam Neurological exam: Present: alert, oriented X3 - Skin Skin exam: Present: warm. Absent: rash Internal Medicine: Result - Labs CBC & Chem 7: 03/01/17 03:07 03/01/17 03:07 - ABG Interpretation ABG results: ABG ABG pH 7.47 pH Units (7.32-7.45) H 02/24/17 10:11 ABG pCO2 41 mmHg (35-45) 02/24/17 10:11 ABG pO2 382 mmHg (85-104) H 02/24/17 10:11 ABG O2 Saturation 100 % (95-98) H 02/24/17 10:11 PT/INR, D-dimer PT 15.9 Seconds (9.4-12.1) H 02/15/17 09:40 - Impressions Impressions Abdomen/Pelvis CT 03/01/17 20:30 IMPRESSION: 1. Interval removal of right chest tube. 2. Grossly stable appearance of the complex right hydropneumothorax with thickened rind of enhancing pleura that communicates with a dominant right lower lobe cavity/abscess. 3. The adjacent satellite abscess identified on the prior CT is smaller in size, measuring 17 mm, previously 23 mm. 4. Persistent but decreased areas of right chest wall subcutaneous emphysema and pneumomediastinum. 5. No acute findings within the abdomen pelvis. Stable chronic findings as above. D/ / 03/02/2017 05:27:08 Camden Dobson MD / iva Interpreting Provider: Camden Dobson MD Chest CT 03/01/17 20:30 IMPRESSION: 1. Interval removal of right chest tube. 2. Grossly stable appearance of the complex right hydropneumothorax with thickened rind of enhancing pleura that communicates with a dominant right lower lobe cavity/abscess. 3. The adjacent satellite abscess identified on the prior CT is smaller in size, measuring 17 mm, previously 23 mm. 4. Persistent but decreased areas of right chest wall subcutaneous emphysema and pneumomediastinum. 5. No acute findings within the abdomen pelvis. Stable chronic findings as above. D/ 03/02/2017 05:27:08 Camden Dobson MD / tkyer Interpreting Provider: Camden Dobson MD - VTE Documentation of Mechanical Device: Intermittent pneumatic compression device Consult Discharge Plan - Plan Referrals: Emmanuel Gonzalez DO [Resident] - 03/05/17 4:00 pm
[2017-03-02] MEDS: Divalproex (24 HR) 250 MG TABLET PO SCH (21:28)
[2017-03-03] MEDS: *HR* Morphine 2 MG/ML SYRINGE IVP PRN (02:05)
[2017-03-03] MEDS: *HR* OxyCODONE Immed Rel 5 MG TABLET PO PRN ×2 (05:36→08:53)
[2017-03-03] MEDS: *HR* Enoxaparin 40 MG/0.4 ML SYRINGE SQ SCH (05:36)
[2017-03-03] MEDS: Budesonide/Formoterol 160/4.5 MDI IH SCH (07:59)
[2017-03-03 08:42] VITALS: BP 112/69
[2017-03-03] MEDS: Thiamine (B-1) 100 MG TABLET PO SCH (08:56)
[2017-03-03] MEDS: traZODone 50 MG TABLET PO SCH (08:56)
[2017-03-03] MEDS: Lactobacillus 1 EACH CAP.SPRINK PO SCH (08:56)
[2017-03-03] MEDS: amLODIPine 5 MG TABLET PO SCH (08:56)
[2017-03-03] MEDS: Nicotine 21 MG PATCH.TD24 TD SCH (08:57)
[2017-03-03] MEDS: Sucralfate 1 GM TABLET PO SCH ×2 (08:57→12:11)
--- NOTE | 2017-03-03 10:01 | Discharge Summary ---
Date of Encounter: 03/03/17 Time of Encounter: 09:15 - Discharge Diagnosis (1) Sepsis Priority: Primary Status: Resolved Qualifiers: Sepsis type: sepsis due to unspecified organism Qualified Code(s): A41.9 - Sepsis, unspecified organism (2) Acute hypoxemic respiratory failure Priority: Primary Status: Resolved (3) Alcohol abuse with alcohol-induced disorder Priority: Primary Status: Chronic (4) Empyema lung Priority: Primary Status: Acute (5) Subcutaneous emphysema Priority: Secondary Status: Resolved Qualifiers: Encounter type: subsequent encounter Qualified Code(s): T79.7XXD - Traumatic subcutaneous emphysema, subsequent encounter (6) Pain Priority: Secondary Status: Chronic (7) Pancreatic insufficiency Priority: Secondary Status: Chronic (8) Essential hypertension Priority: Secondary Status: Chronic (9) COPD (chronic obstructive pulmonary disease) Priority: Secondary Status: Chronic Qualifiers: COPD type: emphysema Emphysema type: panlobular Qualified Code(s): J43.1 - Panlobular emphysema (10) Hypoalbuminemia Priority: Secondary Status: Chronic (11) Chest tube in place Priority: Secondary Status: Resolved (12) Hepatitis C Priority: Secondary Status: Chronic Qualifiers: Viral hepatitis chronicity: chronic Hepatic coma status: without hepatic coma Qualified Code(s): B18.2 - Chronic viral hepatitis C (13) Depression Priority: Secondary Status: Chronic Qualifiers: Depression Type: unspecified Qualified Code(s): F32.9 - Major depressive disorder, single episode, unspecified (14) Anemia Priority: Secondary Status: Chronic Qualifiers: Anemia type: other cause Other causes of anemia: chronic disease, other Qualified Code(s): D63.8 - Anemia in other chronic diseases classified elsewhere (15) Protein malnutrition Priority: Secondary Status: Chronic (16) Hypokalemia Priority: Secondary Status: Resolved (17) Hypertension Priority: Secondary Status: Chronic Qualifiers: Hypertension type: other secondary hypertension Qualified Code(s): I15.8 - Other secondary hypertension - Discharge Medications Prescriptions: OxyCODONE Immed Rel [Roxicodone 5 MG] 15 mg PO Q4HR PRN #40 tablet PRN Reason: Severe Pain Amoxicillin/Clavulanate [Augmentin] 875 mg PO BIDWM #20 tablet diazePAM [Valium] 2 mg PO TID PRN #6 tablet PRN Reason: Anxiety Megestrol Acetate [Megace] 400 mg PO BID #4 [facility] [place] Medications: Albuterol Sulfate [Proair Hfa] 2 puff IH Q6H PRN 12/21/16 [History] Amlodipine Besylate 10 mg PO DAILY 12/21/16 [History] Budesonide/Formoterol 160/4.5 [Symbicort 160/4.5] 1 puff IH BID 12/21/16 [ History] Cholecalciferol (D-3) [Vitamin D] 1,000 unit PO DAILY 12/21/16 [History] Cyanocobalamin (Vitamin B-12) [Vitamin B12] 500 mcg PO DAILY 12/21/16 [History] Divalproex (24 HR) [Depakote ER (24 HR)] 1,250 mg PO HS 12/21/16 [History] Ergocalciferol (VITAMIN D2) [Vitamin D2] 50,000 unit PO QWEEK 12/21/16 [History] Folic Acid 2 mg PO DAILY 12/21/16 [History] Gabapentin [Neurontin] 600 mg PO TID 12/21/16 [History] Lipase/Protease/Amylase [Creon Dr 36,000 Units Capsule] 36,000 unit PO TID 12/21 [History] Magnesium Oxide [Mag-Ox] 400 mg PO BID 12/21/16 [History] Mirtazapine 7.5 mg PO HS 12/21/16 [History] Omeprazole [PriLOSEC] 20 mg PO DAILY 12/21/16 [History] Quetiapine Fumarate [Seroquel] 300 mg PO HS 12/21/16 [History] SUMAtriptan [Imitrex] 6 mg SQ BID PRN 12/21/16 [History] Acetaminophen [Tylenol] 650 mg PO Q6HR PRN #0 tablet 03/03/17 [Rx] Amoxicillin/Clavulanate [Augmentin] 875 mg PO BIDWM #20 tablet 03/03/17 [Rx] Docusate [Colace] 100 mg PO BID PRN #0 capsule 03/03/17 [Rx] Ibuprofen [Motrin] 600 mg PO Q6HR PRN #0 tablet 03/03/17 [Rx] Ipratropium/Albuterol Neb [Duoneb] 3 ml IH [id number] PRN #0 inhsol 03/03/17 [Rx] Lactobacillus [Culturelle] 1 each PO BID cap.sprink 03/03/17 [Rx] Lipase/Protease/Amylase [Ananya Kern 6,000 Units Capsule] 6 each PO TIDWM capsule. 03/03/17 [Rx] Megestrol Acetate [Megace] 400 mg PO BID #4 udc 03/03/17 [Rx] Metoprolol [Lopressor] 75 mg PO BID tablet 03/03/17 [Rx] Nicotine Patch [Nicoderm] 21 mg TD DAILY patch.td24 03/03/17 [Rx] Nitroglycerin 0.4 mg SL Q5MIN PRN #0 tab.subl 03/03/17 [Rx] Omeprazole [PriLOSEC] 20 mg PO DAILY@0630 capsule. 03/03/17 [Rx] OxyCODONE Immed Rel [Roxicodone 5 MG] 15 mg PO Q4HR PRN #40 tablet 03/03/17 [Rx] Sucralfate [Carafate] 1 gm PO TIDAC tablet 03/03/17 [Rx] Thiamine (B-1) [Vitamin B-1] 100 mg PO DAILY tablet 03/03/17 [Rx] diazePAM [Valium] 2 mg PO TID PRN #6 tablet 03/03/17 [Rx] traZODone [TraZODone] 50 mg PO BID tablet 03/03/17 [Rx] Allergies/Adverse Reactions: Allergies No Known Allergies Allergy (Verified 10/12/16 03:54) Procedures/tests Complete & Pending: Procedures Performed prior 72 hours Category Date Time Status CT abd pelvis w iv and oral [CT] Routine Cat Scan 03/01/17 20:[address] chest w con [CT] Routine Cat Scan 03/01/17 20:30 Completed Date of admission: 02/02/17 16:30 Primary care physician: PCP NO Consults: 02/06/17 11:41 Consult to Speech Therapy [CONS] Routine Comment: Evaluate, develop and implement POC Reason for Consult: Swallow eval. Failed bedside. Suspected aspiration PNA. Call Completed: No 02/07/17 12:03 consult to leach runner [Consult to Nutrition] [CONS] Routine Comment: Consulting Provider: NUTRITION Reason for Dietary Consult: TF Start and Manage 02/09/17 13:59 Consult to Speech Therapy [CONS] Routine Comment: Evaluate, develop and implement POC Reason for Consult: Patient extubated. Increasing alertness. Formal bedside swallow study please. Call Completed: No 02/11/17 11:30 Consult to Occupational Therapy [CONS] Routine Comment: Evaluate, develop and implement POC Consult to Physical Therapy [CONS] Routine Comment: Evaluate, develop and implement POC 02/14/17 08:59 Consult to Cardiothoracic Surgery [CONS] Routine Consulting Provider: Cardiothoracic Surgery [place] Reason for Consult: Complex fluid collection in the right lung. this developed after aspiration pneumonia. PAtient was also on ventilator for 2 days. Discussed with Pulmonology. Patient will most likely need a chest tube. I have paged Dr. Adams and will discuss with him. Call Completed: Yes Discharging clinician: Shemar Tinoco Anticipated date of discharge: 03/03/17 - Patient Status Disposition: Transfer SNF Condition: Fair Functional capacity at discharge: uses cane/walker Overall status at discharge: patient is progressing back to baseline - Discharge Instructions Instructions: Oxycodone/Acetaminophen (By mouth), Diazepam (By mouth), Amoxicillin/Clavulanate Potassium (By mouth), Megestrol Acetate (By mouth), Atrial Fibrillation (DC), Thoracotomy (DC), Viral Hepatitis C (DC), Viral Hepatitis C (GEN), Gastroenteritis (DC), Chronic Obstructive Pulmonary Disease ( DC), Sepsis (DC), Abuse of Alcohol (DC), Abuse of Alcohol (GEN), Chronic Hypertension (DC), Cigarette Smoking and Your Health, [place] (GEN) Follow Up With: Emmanuel Gonzalez DO [Resident] - 03/05/17 4:00 pm Silver Adams MD [Partnered Physician] - - Diet and Activity Activity: as per physical therapy, increase activity as tolerated Diet: advance to your usual diet Hospital course: Mr. Chen is a 61 year old male with multiple admissions presented to ED with complaints of chest pain. He was evaluated and subsequently admitted. Mr. Chen was initially admitted for acute chest pain r/o NE versus anxiety. CIWA protocol started as well. It was felt that a lot of his pain initially was chest wall and anxiety. His cardiac work up was negative initially and he had multiple pain complaints and requested IV morphine. He began complaining of abdominal pain and was seen by GI service and had EGD showing esophagitis. He was requesting multiple different medications and changes in doses. On 02/05 he appeared to be more confused and by 02/06 he was short of breath and appeared to be septic. He had vomited the day before. At that time he was transferred to the ICU for further care. In ICU he was felt to have aspiration pneumonia. He had central line placed on 02/07 and was intubated on 02/08. He did well and was extubated successfully. He developed atrial fibrillation but not a candidate for anticoagulation due to liver disease, cirrhosis,). He was kept on rate control medications and abx. He was transferred out of the ICU. On 02/13 he was evaluated on [facility] [employer] and due to elevated WBC he underwent a CT of his lungs due to concern for empyema. CT showed large pleural effusion and there was concern for empyema. Chest tube was placed on 02/14. Initially he was managed with intrapleural lytics. He was evaluated by CT surgery and underwent R thoracotomy and decortication on 02/16/17. He remained on the ventilator the first night and then was extubated. On 02/20 he was noted to have subqutaneous air and a CT showed findings consistent with air leak. He was transferred to [facility] with [address] The patient's issue was pain. He was given multiple pain meds during the time the chest tubes were in place. When chest tubes were removed IV morphine was stopped and PO meds used. He was very upset and asking for IV morphine again. His pain medications were adjusted and ultimately he was transitioned to PO abx. It was recommended he go to SNF. It took nearly a week to arrange for somewhere to take him. His pain medications were adjusted. Karthik were removed. on 03/01 (32) without issue. He had repeat CT and will need to be followed for resolution. He remained afebrile with normal WBC. On 03/03 he was hemodynamically stable and afebrile. At that time he was discharged to SNF on PO pain meds and abx. - Time Spent with Patient Total time spent providing and/or coordinating discharge services: 45min - Constitutional Vitals: Temp Pulse Resp BP Pulse Ox 98.0 F 77 14 112/69 93 03/03/17 08:39 03/03/17 08:39 03/03/17 08:39 03/03/17 08:39 03/03/17 08:39 General appearance: Present: cooperative, A&O X 3, answers questions appropriately - Head Head exam: Present: normocephalic - Eye Eye exam: Present: conjuntiva pink - ENT ENT exam: Present: mucous membranes moist - Respiratory Respiratory exam: Present: decreased breath sounds, rhonchi - Cardiovascular Cardiovascular exam: Present: RRR. Absent: tachycardia - GI/Abdominal GI/Abdominal exam: Present: soft. Absent: tenderness - Extremities Exam Extremities exam: Present: warm. Absent: tenderness - Neurological Exam Neurological exam: Present: alert, oriented X3 - Skin Skin exam: Present: warm. Absent: rash - VTE Documentation of Mechanical Device: Intermittent pneumatic compression device
--- NOTE | 2017-03-03 10:11 | Physician Discharge Referral ---
ExtendedCare Referral Info Provider in Charge: Shemar Tinoco DO Provider in Charge after Transfer: PCP Institutional Level of Care: Skilled - Diagnosis (1) Sepsis Priority: Primary Status: Resolved (2) Acute hypoxemic respiratory failure Priority: Primary Status: Resolved (3) Alcohol abuse with alcohol-induced disorder Priority: Primary Status: Chronic (4) Empyema lung Priority: Primary Status: Acute (5) Subcutaneous emphysema Priority: Primary Status: Resolved (6) Pain Priority: Secondary Status: Chronic (7) Pancreatic insufficiency Priority: Secondary Status: Chronic (8) Essential hypertension Priority: Secondary Status: Chronic (9) COPD (chronic obstructive pulmonary disease) Priority: Secondary Status: Chronic (10) Hypoalbuminemia Priority: Secondary Status: Chronic (11) Chest tube in place Priority: Secondary Status: Resolved (12) Hepatitis C Priority: Secondary Status: Chronic (13) Depression Priority: Secondary Status: Chronic (14) Anemia Priority: Secondary Status: Chronic (15) HTN (hypertension) Priority: Secondary Status: Chronic (16) Protein malnutrition Priority: Secondary Status: Chronic (17) Hypokalemia Priority: Secondary Status: Resolved Expected Duration of Placement: Less than 30 days Prognosis: Fair Aware of Diagnosis: Patient Aware of Prognosis: Patient - Transfer Medications Prescriptions: OxyCODONE Immed Rel [Roxicodone 5 MG] 15 mg PO Q4HR PRN #40 tablet PRN Reason: Severe Pain Amoxicillin/Clavulanate [Augmentin] 875 mg PO BIDWM #20 tablet diazePAM [Valium] 2 mg PO TID PRN #6 tablet PRN Reason: Anxiety Megestrol Acetate [Megace] 400 mg PO BID #4 c Home Medications: Albuterol Sulfate [Proair Hfa] 2 puff IH Q6H PRN 12/21/16 [History] Amlodipine Besylate 10 mg PO DAILY 12/21/16 [History] Budesonide/Formoterol 160/4.5 [Symbicort 160/4.5] 1 puff IH BID 12/21/16 [ History] Cholecalciferol (D-3) [Vitamin D] 1,000 unit PO DAILY 12/21/16 [History] Cyanocobalamin (Vitamin B-12) [Vitamin B12] 500 mcg PO DAILY 12/21/16 [History] Divalproex (24 HR) [Depakote ER (24 HR)] 1,250 mg PO HS 12/21/16 [History] Ergocalciferol (VITAMIN D2) [Vitamin D2] 50,000 unit PO QWEEK 12/21/16 [History] Folic Acid 2 mg PO DAILY 12/21/16 [History] Gabapentin [Neurontin] 600 mg PO TID 12/21/16 [History] Lipase/Protease/Amylase [Ananya Kern 36,000 Units Capsule] 36,000 unit PO TID 12/21 [History] Magnesium Oxide [Mag-Ox] 400 mg PO BID 12/21/16 [History] Mirtazapine 7.5 mg PO HS 12/21/16 [History] Omeprazole [PriLOSEC] 20 mg PO DAILY 12/21/16 [History] Quetiapine Fumarate [Seroquel] 300 mg PO HS 12/21/16 [History] SUMAtriptan [Imitrex] 6 mg SQ BID PRN 12/21/16 [History] Acetaminophen [Tylenol] 650 mg PO Q6HR PRN #0 tablet 03/03/17 [Rx] Amoxicillin/Clavulanate [Augmentin] 875 mg PO BIDWM #20 tablet 03/03/17 [Rx] Docusate [Colace] 100 mg PO BID PRN #0 capsule 03/03/17 [Rx] Ibuprofen [Motrin] 600 mg PO Q6HR PRN #0 tablet 03/03/17 [Rx] Ipratropium/Albuterol Neb [Duoneb] 3 ml IH [id number] PRN #0 inhsol 03/03/17 [Rx] Lactobacillus [Culturelle] 1 each PO BID cap.sprink 03/03/17 [Rx] Lipase/Protease/Amylase [Ananya Kern 6,000 Units Capsule] 6 each PO TIDWM capsule. 03/03/17 [Rx] Megestrol Acetate [Megace] 400 mg PO BID #4 udc 03/03/17 [Rx] Metoprolol [Lopressor] 75 mg PO BID tablet 03/03/17 [Rx] Nicotine Patch [Nicoderm] 21 mg TD DAILY patch.td24 03/03/17 [Rx] Nitroglycerin 0.4 mg SL Q5MIN PRN #0 tab.subl 03/03/17 [Rx] Omeprazole [PriLOSEC] 20 mg PO DAILY@0630 capsule.dr 03/03/17 [Rx] OxyCODONE Immed Rel [Roxicodone 5 MG] 15 mg PO Q4HR PRN #40 tablet 03/03/17 [Rx] Sucralfate [Carafate] 1 gm PO TIDAC tablet 03/03/17 [Rx] Thiamine (B-1) [Vitamin B-1] 100 mg PO DAILY tablet 03/03/17 [Rx] diazePAM [Valium] 2 mg PO TID PRN #6 tablet 03/03/17 [Rx] traZODone [TraZODone] 50 mg PO BID tablet 03/03/17 [Rx] Allergies/Adverse Reactions: Allergies No Known Allergies Allergy (Verified 10/12/16 03:54) - Respiratory Orders Oxygen / L per min (Keep saturation greater than 92%) Smoking Cessation: Smoking cessation has been advised. For more information, call the [place] Tobacco Quit Line at 1-832-FFAZ-NOW. - Lab Orders Lab Orders: 2 Step Mantoux Test per State regulation - Ancillary Orders May use pressure relief devices daily prn, May consult with Dentist, Industrial Truck Operator, Nurse Anesthetist PRN - Advance Directives Code Status: Full Code - History and Physical History/Physical reviewed & approved w/add comments: Pt now with healing thoracotomy and chest tube sites on R chest - Mobility Orders Ambulate - Rehabiliation Orders Rehab Potential: Good Rehab Orders: Evaluation for Physical Therapy, Evaluation for Occupational Therapy - Treatments Skin tear care topically daily PRN per policy, May check for fecal impaction rectally daily PRN, Fleet enema rectally every other day PRN cleansing purposes - Diet Orders Regular House Supplement per Dietary: Ensure Clear TID between meals CERTIFICATION: I certify that the transfer of the above named patient to an Extended Care Facility is necessary for the continuing treatment of the diagnosis listed. The above information is true and accurate reflection of patient's current condition. Confidential - Redisclosure prohibited without a patient's written consent.
== END 2017-03-03 13:35 | DRG 981 ==
LOC: 3BNU 18:35 → EMEROO 18:35 → 3BNU 20:50 → SUATTDRO 02-02 16:30 → ICNU 02-06 08:35 → 3NENU 02-12 15:17 → 2NNU 02-14 13:03 → ICNU 02-16 14:28 → 2NENU 02-19 16:29
PROVIDERS: ADMIT Internal Medicine; ATTEND Internal Medicine

== ENCOUNTER 2017-03-15 15:02 | Inpatient (IN) ==
[2017-03-15] MEDS ORDERED: *HR* HYDROmorphone (PF) 1 MG/ML SYRINGE IVP ONE (15:07)
[2017-03-15] MEDS ORDERED: Ondansetron 4 MG/2 ML VIAL IVP ONE (15:07)
--- NOTE | 2017-03-15 15:13 | Emergency Department Note ---
Disposition Clinical Impression: Atypical pneumonia Disposition: Admitted As Inpatient Condition: Good Referrals: NO,PCP [Primary Care Provider] - Forms: ED Satisfaction Letter Time of Disposition: 16:41 Chest Pain HPI - General Chief Complaint: ED Chest Pain Stated Complaint: CP Time Seen by Provider: 03/15/17 15:03 Source: patient, EMS Mode of arrival: EMS Limitations: no limitations Vital Signs Reviewed: Yes Nursing Notes Reviewed: Yes - History of Present Illness HPI Narrative: 61-year-old who 1 month ago had an empyema requiring chest tube. Patient has had chronic pain since. Patient was seen yesterday for similar complaints had a chest x-ray that was negative. Patient continues with the pain in his chest. Pt complaint: chest pain Onset (ago): week(s) Duration: constant (4) Onset: during rest Pain Location: right chest Severity scale (1-10): 10 Quality: aching, sharp Pain Radiation: none Improves with: nothing Worsens with: movement Context: recent surgery - Related Data Home Medications Medication Instructions Recorded Confirmed Albuterol Sulfate [Proair Hfa] 2 puff IH Q6H PRN 12/21/16 03/14/17 Gabapentin [Neurontin] 600 mg PO TID 12/21/16 03/14/17 Quetiapine Fumarate [Seroquel] 300 mg PO HS 12/21/16 03/14/17 SUMAtriptan [Imitrex] 6 mg SQ BID PRN 12/21/16 03/14/17 Previous Rx's Medication Instructions Recorded Ibuprofen [Motrin] 600 mg PO Q6HR PRN #0 tablet 03/03/17 diazePAM [Valium] 2 mg PO TID PRN #6 tablet 03/03/17 Meloxicam [Mobic] 15 mg PO DAILY #7 tab 03/14/17 Allergies Allergy/AdvReac Type Severity Reaction Status Date / Time No Known Allergies Allergy Verified 03/14/17 17:28 Constitutional: Denies: fever, chills, weakness, weight change Eyes: Denies: eye pain, eye discharge, vision change ENT ED: Denies: ear pain, throat pain, dental pain, hearing loss, epistaxis, congestion, dysphagia Cardiovascular: Reports: chest pain. Denies: palpitations, dyspnea on exertion , edema, syncope Respiratory: Denies: cough, dyspnea, wheezes, hemoptysis, stridor Gastrointestinal: Denies: abdominal pain, nausea, vomiting, diarrhea, constipation, hematemesis, melena, hematochezia Genitourinary: Denies: urgency, dysuria, frequency, hematuria Musculoskeletal: Denies: back pain, neck pain, arthralgia, myalgia Integumentary: Denies: rash, abrasion, lesions Neurological: Denies: headache, weakness, numbness, paresthesias, confusion, abnormal gait, vertigo Psychiatric: Denies: anxiety, depression, suicidal thoughts, homicidal thoughts , auditory hallucinations, visual hallucinations Endocrine: Denies: fatigue Hematological/Lymphatic: Denies: easy bleeding, easy bruising Allergic/Immunologic: Denies: facial swelling, urticaria Chest Pain PMH - Past Medical History Medical history: Reports: COPD, CVA, GERD, hypertension, migraine, myocardial infarction, other Surgical history: Reports: appendectomy, cholecystectomy, other (Partial Pancreatectomy, surgeries for partial bowel resection, PEG insertion, temporary ileostomy and reversal.) Psychiatric history: Reports: anxiety, bipolar, depression, schizophrenia, previous psychiatric hospitalization, other - Social History Smoking Status: Current every day smoker Alcohol use: Reports: heavy Drug use: Reports: none Physical Exam - General Limitations: no limitations General appearance: alert, in no apparent distress - Head Head exam: atraumatic, normocephalic, normal inspection - Eye Eye exam: Present: normal appearance, PERRL, EOMI - ENT ENT exam: normal exam, normal oropharynx, mucous membranes moist - Neck Neck exam: Present: normal inspection, full ROM, trachea midline - Chest Chest inspection: Present: normal inspection, symmetric chest wall rise - Respiratory Respiratory exam: Present: normal lung sounds bilaterally - Cardiovascular Cardiovascular exam: Present: regular rate, normal rhythm, normal heart sounds - Abdominal Exam Abdominal exam: Present: soft, Non-Tender. Absent: tenderness, distention, guarding, rebound, rigidity - Extremities Exam Extremities exam: Present: normal inspection, full ROM. Absent: tenderness, pedal edema - Back Exam Back exam: Present: normal inspection, full ROM. Absent: tenderness - Neurological Exam Neurological exam: Present: alert - Psychiatric Psychiatric exam: Present: normal affect, normal mood - Skin Skin exam: Present: warm, dry, intact, normal color Course - Reevaluation(s) Reevaluation #1: 61-year-old who had previous empyema drained by chest tube comes in with some increasing pain in his chest and cough has had some shortness of breath. Patient is not sure whether he's run a fever or not. CT scan shows new multifocal atypical pneumonia. Admitted. Time: 16:40 - Consultations Consultation #1: Discussed with , admit. Time: 16:40 Vital Signs Temperature 98.3 F 03/15/17 15:04 Pulse Rate 94 03/15/17 15:04 Respiratory Rate 14 03/15/17 15:04 Blood Pressure 125/79 03/15/17 15:04 O2 Sat by Pulse Oximetry 96 03/15/17 15:04 Temperature 98.3 F 03/15/17 15:04 Pulse Rate 94 03/15/17 15:04 Respiratory Rate 14 03/15/17 15:04 Blood Pressure 125/79 03/15/17 15:04 O2 Sat by Pulse Oximetry 96 03/15/17 15:09 Oxygen Delivery Oxygen Delivery Room Air Chest Pain - Lab Data Lab results reviewed: Yes I reviewed the patient's lab results. Result diagrams: 03/15/17 15:39 03/15/17 15:39 Lab Results 03/15/17 03/15/17 03/15/17 Range/Units 15:39 15:39 15:39 WBC 8.6 (4.3-11.1) K/mcL RBC 3.91 L (4.19-5.50) M/mcL Hgb 10.2 L (12.9-16.9) g/dL Hct 32.4 L (37.5-50.1) % MCV 82.9 L (83.0-100.0) fL MCH 26.1 L (28.0-33.3) pg MCHC 31.5 L (31.6-35.5) g/dL RDW 19.0 H (11.5-14.5) % Plt Count 256 (140-400) K/mcL MPV 9.1 L (9.4-12.4) fL Seg Neutrophils % 79.0 % Band Neutrophils % 5.0 H (0-4) % Lymphocytes % 14.0 % Monocytes % 2.0 % Neutrophils # 7.2 (1.6-8.9) K/mcL Lymphocytes # 1.2 (0.6-4.6) K/mcL Monocytes # 0.2 (0.0-1.3) K/mcL Nucleated RBCs/100 WBC 0.2 H (0) /100 WBC Platelet Estimate Normal (Normal) PT 14.0 H (9.4-12.1) Seconds INR 1.3 APTT 27.0 (26.0-36.0) Seconds Sodium 137 (136-145) mEq/L Potassium 3.6 (3.5-4.5) mEq/L Chloride 108 (98-109) mEq/L Carbon Dioxide 18 L (19-29) mEq/L BUN 10 (8-26) mg/dL Creatinine 0.79 (0.72-1.25) mg/dL Est GFR ( Amer) > 60 (> 60) Est GFR (Non-Af Amer) > 60 (> 60) BUN/Creatinine Ratio 13 (6-26) Glucose 95 (70-99) mg/dL Calculated Osmolality 283 (280-300) Calcium 8.3 L (8.6-10.8) mg/dL Total Bilirubin (0.2-1.2) mg/dL Direct Bilirubin (0.0-0.5) mg/dL Indirect Bilirubin (0.0-1.2) mg/dL AST (5-34) Units/L ALT (0-55) Units/L Alkaline Phosphatase (38-126) Units/L Troponin I (0-0.03) ng/mL Serum Total Protein (6.0-8.3) g/dL Albumin (3.5-5.0) g/dL Globulin (2.4-3.5) g/dL Albumin/Globulin Ratio (1.1-2.2) Amylase (25-125) Units/L Lipase (8-78) Units/L 03/15/17 03/15/17 Range/Units 15:39 15:39 WBC (4.3-11.1) K/mcL RBC (4.19-5.50) M/mcL Hgb (12.9-16.9) g/dL Hct (37.5-50.1) % MCV (83.0-100.0) fL MCH (28.0-33.3) pg MCHC (31.6-35.5) g/dL RDW (11.5-14.5) % Plt Count (140-400) K/mcL MPV (9.4-12.4) fL Seg Neutrophils % % Band Neutrophils % (0-4) % Lymphocytes % % Monocytes % % Neutrophils # (1.6-8.9) K/mcL Lymphocytes # (0.6-4.6) K/mcL Monocytes # (0.0-1.3) K/mcL Nucleated RBCs/100 WBC (0) /100 WBC Platelet Estimate (Normal) PT (9.4-12.1) Seconds INR APTT (26.0-36.0) Seconds Sodium (136-145) mEq/L Potassium (3.5-4.5) mEq/L Chloride (98-109) mEq/L Carbon Dioxide (19-29) mEq/L BUN (8-26) mg/dL Creatinine (0.72-1.25) mg/dL Est GFR ( Amer) (> 60) Est GFR (Non-Af Amer) (> 60) BUN/Creatinine Ratio (6-26) Glucose (70-99) mg/dL Calculated Osmolality (280-300) Calcium (8.6-10.8) mg/dL Total Bilirubin 0.3 (0.2-1.2) mg/dL Direct Bilirubin 0.2 (0.0-0.5) mg/dL Indirect Bilirubin 0.1 (0.0-1.2) mg/dL AST 35 H (5-34) Units/L ALT 24 (0-55) Units/L Alkaline Phosphatase 111 (38-126) Units/L Troponin I 0.00 (0-0.03) ng/mL Serum Total Protein 8.1 (6.0-8.3) g/dL Albumin 2.1 L (3.5-5.0) g/dL Globulin 6.0 H (2.4-3.5) g/dL Albumin/Globulin Ratio 0.4 L (1.1-2.2) Amylase 92 (25-125) Units/L Lipase 71 (8-78) Units/L - Radiology Data Radiology results reviewed: Yes I reviewed the patient's radiology results. Chest CT 03/15/17 15:10 IMPRESSION: 1. Re- demonstration of loculated right-sided head and pneumothorax, communicating with a right lower lobe cavitation/abscess. These are slightly decreased in size compared to the previous exam of 03/01/2017. 2. Significant interval improvement right-sided chest wall emphysema 3. There has been interval development of numerous, multifocal ground-glass nodular densities scattered throughout both lungs, concerning for an atypical bronchopneumonia. Follow-up recommended to assure resolution 4. Emphysema 5. Splenomegaly, stable D/ / Luke Tellez MD / Luke Tellez MD Interpreting Provider: Luke Tellez MD - EKG Data EKG attestation: Yes I reviewed and interpreted this EKG. EKG shows normal: sinus rhythm Rate: normal Rhythm: NSR Interpretation: no acute changes
[2017-03-15 15:52] LABS: Hematocrit 32.4 % (37.5-50.1); Hemoglobin 10.2 g/dL (12.9-16.9); Mean Corpuscular HGB Conc 31.5 g/dL (31.6-35.5); Mean Corpuscular Hemoglobin 26.1 pg (28.0-33.3); Mean Corpuscular Volume 82.9 fL (83.0-100.0); Mean Platelet Volume 9.1 fL (9.4-12.4); Nucleated Red Blood Cells 0.2 /100 WBC (0); Platelet Count 256 K/mcL (140-400); Red Blood Count 3.91 M/mcL (4.19-5.50)
[2017-03-15 15:58] LABS: INR 1.3
[2017-03-15 16:09] LABS: BUN/Creatinine Ratio 13 (6-26); Blood Urea Nitrogen 10 mg/dL (8-26); Calcium 8.3 mg/dL (8.6-10.8); Carbon Dioxide 18 mEq/L (19-29); Chloride 108 mEq/L (98-109); Glucose 95 mg/dL (70-99); Osmolality,Calculated 283 (280-300); Potassium 3.6 mEq/L (3.5-4.5); Sodium 137 mEq/L (136-145); eGFR For African Americans > 60 (> 60); eGFR For Non-African Americans > 60 (> 60)
[2017-03-15 16:11] LABS: Albumin 2.1 g/dL (3.5-5.0); Albumin/Globulin Ratio 0.4 (1.1-2.2); Bilirubin,Direct 0.2 mg/dL (0.0-0.5); Bilirubin,Indirect 0.1 mg/dL (0.0-1.2); Bilirubin,Total 0.3 mg/dL (0.2-1.2); Total Protein 8.1 g/dL (6.0-8.3)
[2017-03-15 16:13] LABS: Lymphocytes # 1.2 K/mcL (0.6-4.6); Monocytes # 0.2 K/mcL (0.0-1.3); Neutrophils # 7.2 K/mcL (1.6-8.9); Platelet Estimate Normal (Normal)
[2017-03-15] MEDS ORDERED: Piperacillin/Tazobactam 3.375 GM in D5% in Water (Mini-Bag+) 100 ML IVPB ONE (16:31)
[2017-03-15] MEDS ORDERED: *HR* LORazepam 2 MG/ML VIAL IVP PRN (17:25)
[2017-03-15] MEDS ORDERED: Acetaminophen 325 MG TABLET PO PRN (17:27)
[2017-03-15] MEDS ORDERED: Naloxone 0.4 MG/ML INJ IVP PRN (17:27)
--- NOTE | 2017-03-15 17:33 | Internal Med History&Physical ---
Date of Encounter: 03/15/17 Time of Encounter: 17:30 Assessment and Plan (1) Lung abscess Current visit: Yes Status: Acute Right lower lobe cavitation/abscess decreased in size communicating with small right loculated hydropneumothorax, possible atypical pneumonia Order pulmonology consult Blood culture Continue Zosyn and Levaquin, sputum culture Continue IV fluids Omeprazole for GI prophylaxis and subcutaneous heparin for DVT prophylaxis. The patient will be admitted as inpatient. Expected to stay more than 2 midnights. Full code. Time spent on this admission 40 minutes. High risk for complications of lung abscess Qualifiers: Pulmonary abscess pneumonia presence: with pneumonia Laterality: right Lung location: middle lobe of lung Qualified Code(s): J85.1 - Abscess of lung with pneumonia (2) Atypical pneumonia Current visit: Yes Status: Acute (3) Alcohol dependence Current visit: No Status: Acute Continue Ativan as needed per CIWA scale Qualifiers: Substance use status: in withdrawal Complication of substance-induced condition: uncomplicated Qualified Code(s): F10.230 - Alcohol dependence with withdrawal, uncomplicated (4) Atrial fibrillation Current visit: No Status: Acute Stable Qualifiers: Atrial fibrillation type: paroxysmal Qualified Code(s): I48.0 - Paroxysmal atrial fibrillation (5) COPD (chronic obstructive pulmonary disease) Current visit: No Status: Acute No exacerbation Continue duo nebs and oxygen therapy as needed Qualifiers: COPD type: COPD with acute exacerbation Qualified Code(s): J44.1 - Chronic obstructive pulmonary disease with (acute) exacerbation (6) Coronary artery disease Current visit: No Status: Acute Continue aspirin Qualifiers: Coronary Disease-Associated Artery/Lesion type: [place] artery [place] vs. transplanted heart: [place] heart Associated angina: without angina Qualified Code(s): I25.10 - Atherosclerotic heart disease of [place] coronary artery without angina pectoris (7) Bipolar disorder in remission Current visit: No Status: Chronic (8) Hepatitis C Current visit: No Status: Chronic Qualifiers: Viral hepatitis chronicity: chronic Hepatic coma status: without hepatic coma Qualified Code(s): B18.2 - Chronic viral hepatitis C (9) Protein malnutrition Current visit: No Status: Chronic (10) Tobacco abuse Current visit: No Status: Chronic Nicotine patch, smoking cessation counseling given for 5 min Internal Medicine - H&P: HPI Chief complaint: Right-sided pleuritic pain Admitted From: Emergency Dept History of present illness: Mr. Chen is a 61 year old male with a past medical history of alcohol abuse and withdrawal in the past, suicidal ideation, COPD not oxygen dependent recently discharged from the hospital on 03/03/2017 when he was treated for pneumonia and empyema had a chest tube placed. The patient says that he has been complaining of right-sided pleuritic type of pain ever since he was discharged. Denies any fevers or chills but complains of a 10 out of 10 Of pain mainly in the right lower chest. Heart rate is 94. CT scan shows redemonstration of a delayed a small right-sided hydropneumothorax communicating with a right lower lobe cavitation/abscess decreased in size compared to the prior exam of 03/01/2017. Improvement of the right-sided chest wall emphysema. New development of multifocal groundglass nodular densities scattered throughout both lungs concerning for atypical bronchopneumonia. The patient was started on Levaquin and Zosyn in the emergency room. Feels very weak, denies any other complaint at the moment Past Med Surg Social Fam HX - Past Medical History Medical history: COPD (Not oxygen dependent), CVA, GERD, hypertension, migraine , myocardial infarction, other (Alcohol abuse and alcohol withdrawal, acute renal failure, suicidal ideation, COPD, TIAs, CVA, anxiety and bipolar disorder , hepatitis C, neuropathy, migraines, tobacco use, diastolic CHF, schizophrenia , empyema, subcutaneous emphysema, pancreatic insufficiency) Psychiatric history: anxiety, bipolar, depression, schizophrenia, previous psychiatric hospitalization, other - Past Surgical History Surgical History: appendectomy, cholecystectomy, other (Partial Pancreatectomy, surgeries for partial bowel resection, PEG insertion, temporary ileostomy and reversal.) - Social History Smoking Status: Current every day smoker Packs per day: One pack per day Smokeless Tobacco Status: No Alcohol use: heavy (Used to drink 1 pint of vodka but has not drunk recently) Drug use: none - Family History Mother Family Member Ethnicity: Non- Living Status: Still Living Hx Family Cardiac Disorders: Yes (htn) Hx Family Respiratory Disorders: No Hx Family Cancer: Yes (Colon) Hx Family GI Disorders: No Hx Family Endocrine Disorder: No Hx Family Neuromuscular Disorders: Yes (Neuropathy) Hx Family Neurologic Disorders: No Hx Family HEENT Disorders: No Hx Family Autoimmune Disorders: No Father Living Status: - Additional Family History Additional family history: 5 with anxiety and mother with neuropathy Internal Medicine - H&P: Meds Albuterol Sulfate [Proair Hfa] 2 puff IH Q6H PRN 12/21/16 [History] Gabapentin [Neurontin] 600 mg PO TID 12/21/16 [History] Quetiapine Fumarate [Seroquel] 300 mg PO HS 12/21/16 [History] SUMAtriptan [Imitrex] 6 mg SQ AD PRN 12/21/16 [History] Ibuprofen [Motrin] 600 mg PO Q6HR PRN #0 tablet 03/03/17 [Rx] diazePAM [Valium] 2 mg PO TID PRN #6 tablet 03/03/17 [Rx] Divalproex Sodium [Depakote] 250 mg PO TID 03/15/17 [History] Lipase/Protease/Amylase [Creon Dr 12,000 Units Capsule] 3 cap PO TID 03/15/17 [ History] Omeprazole [PriLOSEC] 20 mg PO DAILY 03/15/17 [History] Allergies No Known Allergies Allergy (Verified 03/14/17 17:28) All Systems PM: A 10-system review of systems was performed and is negative for pertinent findings except as documented above in the HPI. Review of systems: Right pleuritic pain, no nausea vomiting or diarrhea no dysuria. Other systems out of the 10 reviewed were negative - Constitutional Vitals: Temp Pulse Resp BP Pulse Ox 98.3 F 94 14 119/79 96 03/15/17 15:04 03/15/17 15:04 03/15/17 17:08 03/15/17 17:08 03/15/17 15:09 General appearance: Present: A&O X 3, underweight - Head Head exam: Present: atraumatic, normocephalic - Eye Eye exam: Present: PERRL, conjuntiva pink, sclera anicteric Pupils: Present: PERRL - Neck Neck exam general surgery: Present: supple, trachea midline. Absent: lymphadenopathy - Respiratory Respiratory exam: Present: decreased breath sounds, CTAB, rales (Fine right basilar crackles). Absent: accessory muscle use, rhonchi, wheezes - Cardiovascular Cardiovascular exam: Present: RRR, +S1, +S2. Absent: diastolic murmur, gallop, rubs, systolic murmur - GI/Abdominal GI/Abdominal exam: Present: normal bowel sounds, soft, no peritoneal signs. Absent: distended, tenderness - Extremities Exam Extremities exam: Present: warm, radial pulses palpable and symetrical. Absent : calf tenderness, cyanotic, pedal edema - Neurological Exam Neurological exam: Present: CN II-XII intact, oriented X3, no focal deficits. Absent: pronater drift, facial droop, speech deficit - Skin Skin exam: Present: dry, intact Internal Med - H&P Results - Labs CBC & Chem 7: 03/15/17 15:39 03/15/17 15:39
[2017-03-15] MEDS: *HR* HYDROmorphone (PF) 1 MG/ML SYRINGE IVP PRN ×2 (17:51→23:33)
[2017-03-15] MEDS: Gabapentin 300 MG CAPSULE PO SCH ×2 (17:51→20:50)
[2017-03-15] MEDS: Folic Acid 1 MG TABLET PO SCH (17:52)
[2017-03-15] MEDS: Aspirin Enteric Coated 81 MG Tablet PO SCH (17:52)
[2017-03-15] MEDS: Vitamin B Complex/Vit C/Vit E 1 EACH TABLET PO SCH (17:52)
[2017-03-15] MEDS: Nicotine 21 MG PATCH.TD24 TD SCH (17:52)
[2017-03-15] MEDS: 0.9 % Sodium Chloride 1,000 ML IVC SCH (17:52)
[2017-03-15] MEDS: *HR* LORazepam 2 MG/ML VIAL IVP PRN (18:06)
[2017-03-15] MEDS: Thiamine (B-1) 100 MG TABLET PO SCH (20:32)
[2017-03-15] MEDS: Divalproex (12 HR) 250 MG TABLET PO SCH (20:32)
[2017-03-15] MEDS: *HR* Heparin 5,000 UNIT/ML VIAL SQ SCH (20:32)
[2017-03-15] MEDS: Ketorolac 30 MG/ML VIAL IVP PRN (20:40)
[2017-03-15] MEDS ORDERED: Ipratropium/Albuterol Neb 3 ML IH SCH (22:00)
[2017-03-16] MEDS: 0.9 % Sodium Chloride 1,000 ML IVC SCH ×2 (02:35→19:57)
[2017-03-16] MEDS ORDERED: Piperacillin/Tazobactam 3.375 GM in D5% in Water (Mini-Bag+) 100 ML IVPB SCH (03:00)
[2017-03-16] MEDS: *HR* HYDROmorphone (PF) 1 MG/ML SYRINGE IVP PRN ×6 (03:15→19:58)
[2017-03-16] MEDS: Ipratropium/Albuterol Neb 3 ML IH SCH ×7 (04:34→23:40)
[2017-03-16] MEDS: *HR* Heparin 5,000 UNIT/ML VIAL SQ SCH ×3 (05:14→21:59)
[2017-03-16] MEDS: Ketorolac 30 MG/ML VIAL IVP PRN ×3 (05:18→21:58)
[2017-03-16] MEDS: *HR* LORazepam 2 MG/ML VIAL IVP PRN ×2 (05:28→20:07)
[2017-03-16] MEDS: Ondansetron 4 MG/2 ML VIAL IVP PRN (05:28)
[2017-03-16 06:10] LABS: Hematocrit 28.7 % (37.5-50.1); Hemoglobin 8.9 g/dL (12.9-16.9); Mean Corpuscular Hemoglobin 25.9 pg (28.0-33.3); Mean Corpuscular Volume 83.4 fL (83.0-100.0); Mean Platelet Volume 8.9 fL (9.4-12.4); Platelet Count 247 K/mcL (140-400); Red Blood Count 3.44 M/mcL (4.19-5.50); Red Cell Distribution Width 19.1 % (11.5-14.5)
[2017-03-16 06:29] LABS: BUN/Creatinine Ratio 16 (6-26); Blood Urea Nitrogen 13 mg/dL (8-26); Calcium 7.9 mg/dL (8.6-10.8); Carbon Dioxide 18 mEq/L (19-29); Chloride 111 mEq/L (98-109); Glucose 112 mg/dL (70-99); Osmolality,Calculated 283 (280-300); Potassium 3.8 mEq/L (3.5-4.5); Sodium 136 mEq/L (136-145); eGFR For African Americans > 60 (> 60); eGFR For Non-African Americans > 60 (> 60)
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
[2017-03-16] MEDS: Folic Acid 1 MG TABLET PO SCH (09:30)
[2017-03-16] MEDS: Gabapentin 300 MG CAPSULE PO SCH ×3 (09:30→19:58)
[2017-03-16] MEDS: Nicotine 21 MG PATCH.TD24 TD SCH (09:31)
[2017-03-16] MEDS: Thiamine (B-1) 100 MG TABLET PO SCH (09:31)
[2017-03-16] MEDS: Vitamin B Complex/Vit C/Vit E 1 EACH TABLET PO SCH (09:31)
[2017-03-16] MEDS: Divalproex (12 HR) 250 MG TABLET PO SCH ×3 (09:31→19:58)
[2017-03-16] MEDS: Aspirin Enteric Coated 81 MG Tablet PO SCH (09:31)
[2017-03-16] MEDS: Levofloxacin 750 MG/150 ML 750 MG/150 ML BAG IVPB SCH (09:33)
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
[2017-03-16] MEDS ORDERED: Melatonin 3 MG TABLET PO PRN (21:57)
[2017-03-17] MEDS: *HR* HYDROmorphone (PF) 1 MG/ML SYRINGE IVP PRN ×6 (00:41→21:21)
[2017-03-17] MEDS: Ipratropium/Albuterol Neb 3 ML IH SCH ×5 (03:28→21:11)
[2017-03-17] MEDS: *HR* Heparin 5,000 UNIT/ML VIAL SQ SCH ×3 (05:11→19:42)
[2017-03-17 05:57] LABS: Basophils % 0.4 %; Eosinophils % 0.4 %; Hematocrit 28.4 % (37.5-50.1); Hemoglobin 8.6 g/dL (12.9-16.9); Immature Granulocytes % 5.9 % (0-4); Lymphocytes % 27.6 %; Mean Corpuscular HGB Conc 30.3 g/dL (31.6-35.5); Mean Corpuscular Hemoglobin 25.7 pg (28.0-33.3); Mean Platelet Volume 9.7 fL (9.4-12.4); Monocytes # 0.5 K/mcL (0.0-1.3); Monocytes % 6.4 %; Neutrophils # 4.3 K/mcL (1.6-8.9); Platelet Count 249 K/mcL (140-400); Red Blood Count 3.34 M/mcL (4.19-5.50); Red Cell Distribution Width 19.1 % (11.5-14.5); Segmented Neutrophils % 59.3 %
[2017-03-17 06:06] LABS: BUN/Creatinine Ratio 11 (6-26); Blood Urea Nitrogen 8 mg/dL (8-26); C-Reactive Protein 21 mg/L (Less than 5); Calcium 8.2 mg/dL (8.6-10.8); Carbon Dioxide 17 mEq/L (19-29); Chloride 114 mEq/L (98-109); Glucose 93 mg/dL (70-99); Osmolality,Calculated 286 (280-300); Potassium 4.1 mEq/L (3.5-4.5); Sodium 139 mEq/L (136-145); eGFR For African Americans > 60 (> 60); eGFR For Non-African Americans > 60 (> 60)
[2017-03-17 06:22] LABS: Platelet Estimate Normal (Normal)
[2017-03-17 06:23] LABS: Anisocytosis 1+ (Not Present); Hypochromasia Present (Not Present); Reactive Lymphocytes Present (Not Present)
[2017-03-17] MEDS: *HR* LORazepam 2 MG/ML VIAL IVP PRN ×2 (07:02→19:42)
[2017-03-17] MEDS: Ketorolac 30 MG/ML VIAL IVP PRN (07:02)
--- NOTE | 2017-03-17 07:38 | History & Physical Report ---
Date of Encounter: 03/17/17 Time of Encounter: 07:50 24 Hour HP Update - Instructions Instructions: If the History and Physical is less than 30 days old and was completed prior to A.M. admission and or procedure and has NOT been updated on calendar day of procedure please complete this update prior to performing procedure. - Update Patient reports changes in Medical Condition: No Changes in examination, assessment, or condition: No Changes in Medication: No Preop tests/diagnostics Reviewed: Yes Surgery Remains Indicated: Yes Consent for Planned Operative Procedure(s) Verified: Yes
[2017-03-17] MEDS ORDERED: Tetracaine/Benzocaine/Butamben 200MG/SPRAY (100SPY/BOT) MM ONE (07:39)
[2017-03-17] MEDS ORDERED: Albuterol 2.5 MG/3 ML NEBULIZER IH ONE (07:39)
[2017-03-17] MEDS ORDERED: *HR* EPINEPHrine 1 MG/10 ML SYRINGE INTRATRACH PRN (07:39)
[2017-03-17] MEDS ORDERED: Lidocaine Viscous Oral Soln 15 ML SOLUTION MM ONE (07:39)
--- NOTE | 2017-03-17 07:39 | Pre-Sedation Evaluation ---
Pre-sedation evaluation - Pre-sedation checklist Date of procedure: 03/17/17 Procedure: Bronchoscopy Recent Vitals: Last Vital Signs Temp 98.8 F 03/17/17 07:04 Pulse 96 03/17/17 07:04 Resp 18 03/17/17 07:04 BP 147/93 03/17/17 07:04 Pulse Ox 97 03/17/17 07:04 H&P (including ROS) documented in medical record: Yes Previous reaction to sedatives/anesthetics: No Dietary Status: NPO after Midnight Possible difficult airway: No ASA Classification *see protocol: CLASS III-Severe systemic disease Plan of Care: Pt appropriate candidate for procedure/moderate/conscious sedation , Risks/benefits of procedure/sedation discussed w/ patient/family
[2017-03-17] MEDS ORDERED: 0.9 % Sodium Chloride 1,000 ML IVC SCH (07:45)
[2017-03-17] MEDS: Nicotine 21 MG PATCH.TD24 TD SCH (08:06)
[2017-03-17] MEDS: Levofloxacin 750 MG/150 ML 750 MG/150 ML BAG IVPB SCH (08:07)
[2017-03-17] MEDS: Divalproex (12 HR) 250 MG TABLET PO SCH ×3 (10:02→19:42)
[2017-03-17] MEDS: Gabapentin 300 MG CAPSULE PO SCH ×3 (10:03→19:42)
[2017-03-17] MEDS ORDERED: *HR* FentaNYL (PF) 100 MCG/2 ML VIAL ONE (12:12)
[2017-03-17] MEDS ORDERED: *HR* Midazolam HCl 5 MG/5 ML VIAL IVP ONE (12:12)
[2017-03-17] MEDS ORDERED: Lidocaine Viscous Oral Soln 15 ML SOLUTION ONE (12:16)
[2017-03-17] MEDS: *HR* FentaNYL (PF) 100 MCG/2 ML VIAL IVP PRN ×4 (12:50→12:55)
[2017-03-17] MEDS: *HR* Midazolam HCl 5 MG/5 ML VIAL IVP PRN ×3 (12:51→12:55)
--- NOTE | 2017-03-17 13:41 | Internal Med Progress Note ---
<Matt Orourke - Last Filed: 03/17/17 16:58> Date of Encounter: 03/17/17 Time of Encounter: 13:40 - Assessment and plan (1) Abnormal CT of the chest Current Visit: Yes Status: Acute Assessment and plan: Seen by Dr. Lane, pulmonology. Patient previously completed course of Augmentin. Fluid collection appears to be improving from prior CT. New ground glass opacities noted, greater in the left lung. Etiologies include infectious vs non infectious etiologies. Patient is a poor historian as well. Started on Zosyn with Levofloxacin for atypical coverage. 03/17/17 Antibiotics day 2-levaquin continued Continue supportive care and pain management. Bronchoscopy this AM: copious, mucopurulent, thick secretions in tracheobronchial tree, mucus plugs in RLL and PEREZ, bronchoalveolar lavage performed. (2) Chest wall pain following surgery Current Visit: No Status: Acute Assessment and plan: Patient had thoracotomy on 02/16/17. Patient states pain is uncontrolled. Currently has tylenol 650mg PO Q6H, dilaudid 1mg IV Q3H, toradol 30mg IV Q6H, and lidocaine patch. REceived fentanyl for bronchoscopy. Pulm suggested post thoracotomy pain syndrome if this persists. However patient reports additional trauma to this area. If pain persist may consider consultating pain management for possible nerve block. (3) Atrial fibrillation Current Visit: No Status: Acute Assessment and plan: stable. Qualifiers: Atrial fibrillation type: paroxysmal Qualified Code(s): I48.0 - Paroxysmal atrial fibrillation (4) COPD (chronic obstructive pulmonary disease) Current Visit: No Status: Chronic Assessment and plan: Stable, no acute exacerbation. Qualifiers: COPD type: emphysema Emphysema type: panlobular Qualified Code(s): J43.1 - Panlobular emphysema (5) Coronary artery disease Current Visit: No Status: Acute Assessment and plan: continue ASA Qualifiers: Coronary Disease-Associated Artery/Lesion type: [place] artery [place] vs. transplanted heart: [place] heart Associated angina: without angina Qualified Code(s): I25.10 - Atherosclerotic heart disease of [place] coronary artery without angina pectoris (6) ETOH abuse Current Visit: Yes Status: Acute Assessment and plan: on CIWA (7) Hepatitis C Current Visit: No Status: Chronic Qualifiers: Viral hepatitis chronicity: chronic Hepatic coma status: without hepatic coma Qualified Code(s): B18.2 - Chronic viral hepatitis C (8) Protein malnutrition Current Visit: No Status: Chronic (9) Tobacco abuse Current Visit: No Status: Chronic Assessment and plan: nicotine patch. - Time Spent With Patient less than 15 minutes - Subjective Interval history: Patient seen and examined sitting on bedside. Patient reports pain in his right laternal chest and RUQ of his abdomen are still present, pain not managed by medication, but slightly better with pain medication. Patient underwent bronchoscopy today, tolerating procedure well. No acute distress currently. - Constitutional Vitals: Temp Pulse Resp BP Pulse Ox 98.3 F 101 18 129/81 93 03/17/17 12:28 03/17/17 13:08 03/17/17 13:08 03/17/17 13:08 03/17/17 13:08 General appearance: Present: cooperative, A&O X 3, underweight, answers questions appropriately - Head Head exam: Present: atraumatic, normocephalic - Eye Eye exam: Present: EOMI, conjuntiva pink - ENT ENT exam: Present: mucous membranes moist - Neck Neck exam general surgery: Present: full ROM - Respiratory Respiratory exam: Present: decreased breath sounds (decreased right lung breath sounds.). Absent: rhonchi, wheezes - Cardiovascular Cardiovascular exam: Present: tachycardia - GI/Abdominal GI/Abdominal exam: Present: soft, tenderness (RUQ). Absent: distended, firm - Back Exam Additional comments: Noted diffuse tenderness of right back and lateral chest. No discoloration noted , no swelling, no ecchymosis, no pus or drainage. Well healing incisions from thoracotomy and chest tube placement in right chest wall. - Neurological Exam Neurological exam: Present: alert, oriented X3, no focal deficits - Skin Skin exam: Present: dry, intact, normal color Internal Medicine: Result - Labs CBC & Chem 7: 03/17/17 05:13 03/17/17 05:13 Labs: Short CBC 03/17/17 Range/Units 05:13 WBC 7.3 (4.3-11.1) K/mcL Hgb 8.6 L (12.9-16.9) g/dL Hct 28.4 L (37.5-50.1) % Plt Count 249 (140-400) K/mcL Neutrophils # 4.3 (1.6-8.9) K/mcL [facility] 03/17/17 05:13 Sodium 139 Potassium 4.1 Chloride 114 H Carbon Dioxide 17 L BUN 8 Creatinine 0.73 Glucose 93 Calcium 8.2 L - ABG Interpretation ABG results: PT/INR, D-dimer PT 14.0 Seconds (9.4-12.1) H 03/15/17 15:39 Consult Discharge Plan - Plan Referrals: NO,PCP [Primary Care Provider] - <Ashwin Pennington P - Last Filed: 03/17/17 17:36> Date of Encounter: 03/17/17 - Constitutional Vitals: Temp Pulse Resp BP Pulse Ox 98.3 F 100 14 137/89 98 03/17/17 16:04 03/17/17 16:04 03/17/17 16:28 03/17/17 16:04 03/17/17 16:28 Internal Medicine: Result - Labs CBC & Chem 7: 03/17/17 05:13 03/17/17 05:13 Labs: Short CBC 03/17/17 Range/Units 05:13 WBC 7.3 (4.3-11.1) K/mcL Hgb 8.6 L (12.9-16.9) g/dL Hct 28.4 L (37.5-50.1) % Plt Count 249 (140-400) K/mcL Neutrophils # 4.3 (1.6-8.9) K/mcL [facility] 03/17/17 05:13 Sodium 139 Potassium 4.1 Chloride 114 H Carbon Dioxide 17 L BUN 8 Creatinine 0.73 Glucose 93 Calcium 8.2 L - ABG Interpretation ABG results: PT/INR, D-dimer PT 14.0 Seconds (9.4-12.1) H 03/15/17 15:39 - Attending Attestation I examined this patient and my medical decision-making was reviewed with the SEMICONDUCTOR ENGINEER/PA/Advanced Practice Nurse/Resident Physician. I agree with the documented findings, disposition and treatment plan as described except to the extent set forth below.
[2017-03-17] MEDS: Aspirin Enteric Coated 81 MG Tablet PO SCH (14:58)
[2017-03-17] MEDS: Folic Acid 1 MG TABLET PO SCH (14:58)
[2017-03-17] MEDS: Thiamine (B-1) 100 MG TABLET PO SCH (14:58)
[2017-03-17] MEDS: Vitamin B Complex/Vit C/Vit E 1 EACH TABLET PO SCH (14:58)
[2017-03-17 15:43] LABS: Appearance of Body Fluid Slightly Hazy (Clear)
[2017-03-17 16:00] LABS: Appearance of Body Fluid Cloudy (Clear); Volume of Body Fluid 24 mL
--- NOTE | 2017-03-17 17:48 | Electrocardiograph Report ---
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
[2017-03-17] MEDS: 0.9 % Sodium Chloride 1,000 ML IVC SCH (18:07)
[2017-03-18] MEDS: Ipratropium/Albuterol Neb 3 ML IH SCH ×8 (00:01→23:07)
[2017-03-18] MEDS: *HR* HYDROmorphone (PF) 1 MG/ML SYRINGE IVP PRN ×6 (00:25→16:52)
[2017-03-18] MEDS: Ketorolac 30 MG/ML VIAL IVP PRN (02:41)
[2017-03-18] MEDS: 0.9 % Sodium Chloride 1,000 ML IVC SCH ×2 (02:43→19:55)
[2017-03-18 04:02] LABS: Basophils % 0.3 %; Eosinophils % 0.4 %; Hematocrit 27.4 % (37.5-50.1); Hemoglobin 8.6 g/dL (12.9-16.9); Immature Granulocytes % 4.2 % (0-4); Lymphocytes # 1.9 K/mcL (0.6-4.6); Lymphocytes % 24.4 %; Mean Corpuscular HGB Conc 31.4 g/dL (31.6-35.5); Mean Corpuscular Hemoglobin 26.1 pg (28.0-33.3); Monocytes # 0.5 K/mcL (0.0-1.3); Monocytes % 6.1 %; Neutrophils # 5.1 K/mcL (1.6-8.9); Platelet Count 246 K/mcL (140-400); Red Cell Distribution Width 19.5 % (11.5-14.5); Segmented Neutrophils % 64.6 %
[2017-03-18 04:15] LABS: BUN/Creatinine Ratio 11 (6-26); Blood Urea Nitrogen 8 mg/dL (8-26); Calcium 8.2 mg/dL (8.6-10.8); Carbon Dioxide 17 mEq/L (19-29); Chloride 113 mEq/L (98-109); Glucose 126 mg/dL (70-99); Osmolality,Calculated 286 (280-300); Potassium 3.7 mEq/L (3.5-4.5); Sodium 138 mEq/L (136-145); eGFR For African Americans > 60 (> 60); eGFR For Non-African Americans > 60 (> 60)
[2017-03-18] MEDS: *HR* Heparin 5,000 UNIT/ML VIAL SQ SCH ×3 (05:01→22:00)
[2017-03-18] MEDS: Thiamine (B-1) 100 MG TABLET PO SCH (08:31)
[2017-03-18] MEDS: Vitamin B Complex/Vit C/Vit E 1 EACH TABLET PO SCH (08:31)
[2017-03-18] MEDS: Divalproex (12 HR) 250 MG TABLET PO SCH ×3 (08:32→19:54)
[2017-03-18] MEDS: Gabapentin 300 MG CAPSULE PO SCH ×3 (08:32→19:54)
[2017-03-18] MEDS: Folic Acid 1 MG TABLET PO SCH (08:32)
[2017-03-18] MEDS: Nicotine 21 MG PATCH.TD24 TD SCH (08:32)
[2017-03-18] MEDS: Aspirin Enteric Coated 81 MG Tablet PO SCH (08:32)
[2017-03-18] MEDS: Levofloxacin 750 MG/150 ML 750 MG/150 ML BAG IVPB SCH (08:38)
--- NOTE | 2017-03-18 11:08 | Pulmonology Progress Note ---
<Brenden Zuniga - Last Filed: 03/18/17 11:15> Date of Encounter: 03/18/17 Time of Encounter: 11:06 Assessment and Plan (1) Abnormal CT of the chest Current Visit: Yes Status: Acute Patient has fluid collection in RLL. this appears to be improving from prior CT. He dose have multiple ground glass opacities> left lung. He has been deescalated to levofloxacin. Blood cultures show NGTD. BAL shows few GPC in the RLL LLL shows WBC but no bacteria on gram stain. ESR elevated 11 RF negative RAOUL pending. AFB and fungal cultures pending. Currently on Room air. Given patients history I doubt this is secondary to an inflamatory condition. I would lean more toward an infectious process. Continue current antibiotic regimen Follow up with culture results. May consider testing for Cdiff if patient has continued loose stools. 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 continue with analgesics and lidoderm patches. would consider pain management referral upon discharge. (3) ETOH abuse Current Visit: Yes Status: Acute on CIWA Subjective Principal diagnosis: Pneumonia Interval history: No major events overnight. Patient complains of continued pain in the right thoracic area. It is worsened by palpation and very deep breathing. He has had some releif with the lidoderm patches and IV pain medications. However eh stated that his pain is still 7-8/10 at times. He complains of having 3-4 loose bowel movements today. Denies any increased dyspnea, cough or wheeze. HE has no further complaints or concerns at this time. Objective PUL Vital signs: Last Vital Signs Temp 96.8 F L 03/18/17 08:18 Pulse 103 03/18/17 08:18 Resp 18 03/18/17 08:18 BP 121/86 03/18/17 08:18 Pulse Ox 97 03/18/17 08:18 General appearance: no acute distress Eyes: nonicteric ENT: oropharynx moist Neck: supple, no lymphadenopathy, no JVD Effort: normal, other (diminished RLL) Auscultation: bilateral: clear Cardiovascular: regular rate and rhythm Gastrointestinal: normoactive bowel sounds, tender (mild RLL. Tender with mild touch to the skin. No rebound or gaurding. ), other (multiple surgical scars. ) Integumentary: normal Extremities: no cyanosis, no edema, no clubbing Musculoskeletal: no deformities Results - Laboratory Findings CBC and BMP: 03/18/17 03:48 03/18/17 03:48 PT/INR, D-dimer PT 14.0 Seconds (9.4-12.1) H 03/15/17 15:39 Abnormal lab findings: Abnormal lab results RBC 3.30 M/mcL (4.19-5.50) L 03/18/17 03:48 Hgb 8.6 g/dL (12.9-16.9) L 03/18/17 03:48 Hct 27.4 % (37.5-50.1) L 03/18/17 03:48 MCH 26.1 pg (28.0-33.3) L 03/18/17 03:48 MCHC 31.4 g/dL (31.6-35.5) L 03/18/17 03:48 RDW 19.5 % (11.5-14.5) H 03/18/17 03:48 MPV 9.0 fL (9.4-12.4) L 03/18/17 03:48 Immature Gran % 4.2 % (0-4) H 03/18/17 03:48 Band Neutrophils % 5.0 % (0-4) H 03/15/17 15:39 Nucleated RBCs/100 WBC 0.2 /100 WBC (0) H 03/15/17 15:39 Reactive Lymphocytes Present (Not Present) A 03/17/17 05:13 Hypochromasia Present (Not Present) A 03/17/17 05:13 Anisocytosis 1+ (Not Present) A 03/17/17 05:13 ESR 111 mm/hr (0-10) H 03/17/17 05:13 PT 14.0 Seconds (9.4-12.1) H 03/15/17 15:39 Chloride 113 mEq/L (98-109) H 03/18/17 03:48 Carbon Dioxide 17 mEq/L (19-29) L 03/18/17 03:48 Creatinine 0.71 mg/dL (0.72-1.25) L 03/18/17 03:48 Glucose 126 mg/dL (70-99) H 03/18/17 03:48 Calcium 8.2 mg/dL (8.6-10.8) L 03/18/17 03:48 AST 35 Units/L (5-34) H 03/15/17 15:39 C-Reactive Protein 21 mg/L (Less than 5) H 03/17/17 05:13 Albumin 2.1 g/dL (3.5-5.0) L 03/15/17 15:39 Globulin 6.0 g/dL (2.4-3.5) H 03/15/17 15:39 Albumin/Globulin Ratio 0.4 (1.1-2.2) L 03/15/17 15:39 Fluid Appearance Cloudy (Clear) A 03/17/17 13:19 - Microbiology Findings Microbiology Findings: Microbiology, Last 48 Hours 03/17/17 13:00 Respiratory Culture - Preliminary Left Lower Lobe Lung Normal upper respiratory tract alexsandra. No apparent pathogens isolated. 03/17/17 13:19 Gram Stain - Final Right Lower Lobe Lung Respiratory Culture - Preliminary Normal upper respiratory tract alexsandra. No apparent pathogens isolated. 03/17/17 13:19 Gram Stain - Final Left Lower Lobe Lung - Clinical Findings Intake & Output: Intake & Output 03/17/17 03/18/17 03/18/17 23:59 07:59 15:59 Intake Total 440 / 440 1960 / 1960 360 / 360 Output Total 1400 / 1400 975 / 975 1000 / 1000 Balance -960 / -960 985 / 985 -640 / -640 Weight 89.5 kg Consult Discharge Plan - Plan Referrals: NO,PCP [Primary Care Provider] - <Ellie Lane - Last Filed: 03/18/17 12:23> Date of Encounter: 03/18/17 Objective PUL Vital signs: Last Vital Signs Temp 96.8 F L 03/18/17 08:18 Pulse 103 03/18/17 08:18 Resp 18 03/18/17 08:18 BP 121/86 03/18/17 08:18 Pulse Ox 97 03/18/17 08:18 Results - Laboratory Findings CBC and BMP: 03/18/17 03:48 03/18/17 03:48 PT/INR, D-dimer PT 14.0 Seconds (9.4-12.1) H 03/15/17 15:39 Abnormal lab findings: Abnormal lab results RBC 3.30 M/mcL (4.19-5.50) L 03/18/17 03:48 Hgb 8.6 g/dL (12.9-16.9) L 03/18/17 03:48 Hct 27.4 % (37.5-50.1) L 03/18/17 03:48 MCH 26.1 pg (28.0-33.3) L 03/18/17 03:48 MCHC 31.4 g/dL (31.6-35.5) L 03/18/17 03:48 RDW 19.5 % (11.5-14.5) H 03/18/17 03:48 MPV 9.0 fL (9.4-12.4) L 03/18/17 03:48 Immature Gran % 4.2 % (0-4) H 03/18/17 03:48 Band Neutrophils % 5.0 % (0-4) H 03/15/17 15:39 Nucleated RBCs/100 WBC 0.2 /100 WBC (0) H 03/15/17 15:39 Reactive Lymphocytes Present (Not Present) A 03/17/17 05:13 Hypochromasia Present (Not Present) A 03/17/17 05:13 Anisocytosis 1+ (Not Present) A 03/17/17 05:13 ESR 111 mm/hr (0-10) H 03/17/17 05:13 PT 14.0 Seconds (9.4-12.1) H 03/15/17 15:39 Chloride 113 mEq/L (98-109) H 03/18/17 03:48 Carbon Dioxide 17 mEq/L (19-29) L 03/18/17 03:48 Creatinine 0.71 mg/dL (0.72-1.25) L 03/18/17 03:48 Glucose 126 mg/dL (70-99) H 03/18/17 03:48 Calcium 8.2 mg/dL (8.6-10.8) L 03/18/17 03:48 AST 35 Units/L (5-34) H 03/15/17 15:39 C-Reactive Protein 21 mg/L (Less than 5) H 03/17/17 05:13 Albumin 2.1 g/dL (3.5-5.0) L 03/15/17 15:39 Globulin 6.0 g/dL (2.4-3.5) H 03/15/17 15:39 Albumin/Globulin Ratio 0.4 (1.1-2.2) L 03/15/17 15:39 Fluid Appearance Cloudy (Clear) A 03/17/17 13:19 - Microbiology Findings Microbiology Findings: Microbiology, Last 48 Hours 03/17/17 13:00 Respiratory Culture - Preliminary Left Lower Lobe Lung Normal upper respiratory tract alexsandra. No apparent pathogens isolated. 03/17/17 13:19 Gram Stain - Final Right Lower Lobe Lung Respiratory Culture - Preliminary Normal upper respiratory tract alexsandra. No apparent pathogens isolated. 03/17/17 13:19 Gram Stain - Final Left Lower Lobe Lung - Clinical Findings Intake & Output: Intake & Output 03/17/17 03/18/17 03/18/17 23:59 07:59 15:59 Intake Total 440 / 440 1960 / 1960 360 / 360 Output Total 1400 / 1400 975 / 975 1000 / 1000 Balance -960 / -960 985 / 985 -640 / -640 Weight 89.5 kg - Attending Attestation I examined this patient and my medical decision-making was reviewed with the KING MAKER/PA/Advanced Practice Nurse/Resident Physician. I agree with the documented findings, disposition and treatment plan as described except to the extent set forth below. Patient seen and examined. Labs, radiology, chart personally reviewed. Agree with resident's history and physical, assessment, plan with following comments: LINE WELDER: Patient follows commands, Pulmonary: Acceptable oxygenation and ventilation. Agree with plan of care and de-escalation with continuation of a course of Levaquin for 7 days.
[2017-03-18] MEDS: Ondansetron 4 MG/2 ML VIAL IVP PRN (12:33)
--- NOTE | 2017-03-18 13:54 | Internal Med Progress Note ---
<Ashwin Pennington - Last Filed: 03/18/17 14:43> Date of Encounter: 03/18/17 - Constitutional Vitals: Temp Pulse Resp BP Pulse Ox 96.8 F L 103 18 121/86 97 03/18/17 08:18 03/18/17 08:18 03/18/17 08:18 03/18/17 08:18 03/18/17 08:18 Internal Medicine: Result - Labs CBC & Chem 7: 03/18/17 03:48 03/18/17 03:48 Labs: Short CBC 03/18/17 Range/Units 03:48 WBC 7.9 (4.3-11.1) K/mcL Hgb 8.6 L (12.9-16.9) g/dL Hct 27.4 L (37.5-50.1) % Plt Count 246 (140-400) K/mcL Neutrophils # 5.1 (1.6-8.9) K/mcL BMP 03/18/17 03:48 Sodium 138 Potassium 3.7 Chloride 113 H Carbon Dioxide 17 L BUN 8 Creatinine 0.71 L Glucose 126 H Calcium 8.2 L - ABG Interpretation ABG results: PT/INR, D-dimer PT 14.0 Seconds (9.4-12.1) H 03/15/17 15:39 Consult Discharge Plan - Plan Referrals: NO,PCP [Primary Care Provider] - - Attending Attestation I examined this patient and my medical decision-making was reviewed with the FISH FARM MANAGER/PA/Advanced Practice Nurse/Resident Physician. I agree with the documented findings, disposition and treatment plan as described except to the extent set forth below. <Matt Orourke - Last Filed: 03/18/17 19:06> Date of Encounter: 03/18/17 Time of Encounter: 10:25 - Assessment and plan (1) Abnormal CT of the chest Current Visit: Yes Status: Acute Assessment and plan: Seen by Dr. Lane, pulmonology. Patient previously completed course of Augmentin. Fluid collection appears to be improving from prior CT. New ground glass opacities noted, greater in the left lung. Etiologies include infectious vs non infectious etiologies. Patient is a poor historian as well. Started on Zosyn with Levofloxacin for atypical coverage. 03/17/17 Antibiotics day 2-levaquin continued Continue supportive care and pain management. Bronchoscopy this AM: copious, mucopurulent, thick secretions in tracheobronchial tree, mucus plugs in RLL and PEREZ, bronchoalveolar lavage performed. 03/18 Antibiotics- levaquin (consider discontinuation tomorrow) Continue supportive care and pain management. Bronchoscopy revealed normal alexsandra (2) Chest wall pain following surgery Current Visit: No Status: Acute Assessment and plan: Pain not well controlled. Patient had thoracotomy on 02/16/17. Also notes physical alternation with his neighbors prior to admission. Patient states pain is slightly better with medication, but that it is uncontrolled because improvement only lasts 1.5-2 hours. Currently has tylenol 650mg PO Q6H, dilaudid 1mg IV Q3H, toradol 30mg IV Q6H, and lidocaine patch. Will switch dilaudid to percocet. Pulm suggested post thoracotomy pain syndrome if this persists. If pain persist may consider consultating pain management for possible nerve block. (3) Atrial fibrillation Current Visit: No Status: Acute Assessment and plan: stable. Qualifiers: Atrial fibrillation type: paroxysmal Qualified Code(s): I48.0 - Paroxysmal atrial fibrillation (4) COPD (chronic obstructive pulmonary disease) Current Visit: No Status: Chronic Assessment and plan: Stable, no acute exacerbation. Qualifiers: COPD type: emphysema Emphysema type: panlobular Qualified Code(s): J43.1 - Panlobular emphysema (5) Coronary artery disease Current Visit: No Status: Acute Assessment and plan: continue ASA Qualifiers: Coronary Disease-Associated Artery/Lesion type: [place] artery [place] vs. transplanted heart: [place] heart Associated angina: without angina Qualified Code(s): I25.10 - Atherosclerotic heart disease of [place] coronary artery without angina pectoris (6) ETOH abuse Current Visit: Yes Status: Acute Assessment and plan: on CIWA (7) Hepatitis C Current Visit: No Status: Chronic Qualifiers: Viral hepatitis chronicity: chronic Hepatic coma status: without hepatic coma Qualified Code(s): B18.2 - Chronic viral hepatitis C (8) Protein malnutrition Current Visit: No Status: Chronic (9) Tobacco abuse Current Visit: No Status: Chronic Assessment and plan: nicotine patch. (10) Diarrhea Current Visit: Yes Status: Acute Assessment and plan: Patient notes new onset diarrhea, black in appearance and approx 5 times in the past 12-18hours. There is no record of bowel movements. Nursing made aware, if patient is having new onset diarrhea we will check for c. diff. and consider occult blood test. Will continue to monitor Hgb. Qualifiers: Diarrhea type: unspecified type Qualified Code(s): R19.7 - Diarrhea, unspecified - Time Spent With Patient less than 15 minutes - Subjective Interval history: Patient seen and examined lying in bed. Patient reports pain in his right laternal chest and RUQ of his abdomen are still present, pain not managed by medication, but slightly better with pain medication. Notes BLE neuropathy ( burning and tingling) worse than his baseline. He noted black diarrhea that began last night, reports approx 5 episodes thus far. - Constitutional Vitals: Temp Pulse Resp BP Pulse Ox 96.8 F L 103 18 121/86 97 03/18/17 08:18 03/18/17 08:18 03/18/17 08:18 03/18/17 08:18 03/18/17 08:18 General appearance: Present: cooperative, A&O X 3, underweight, answers questions appropriately - Head Head exam: Present: atraumatic, normocephalic - Eye Eye exam: Present: EOMI, conjuntiva pink - ENT ENT exam: Present: mucous membranes moist - Respiratory Respiratory exam: Present: chest wall tenderness (diffuse right chest wall tenderness to palpation.), decreased breath sounds (on the right), CTAB. Absent : rhonchi, wheezes - Cardiovascular Cardiovascular exam: Present: tachycardia - GI/Abdominal GI/Abdominal exam: Present: soft, tenderness (RUQ). Absent: firm - Extremities Exam Extremities exam: Absent: cyanotic, pedal edema, tenderness - Neurological Exam Neurological exam: Present: alert, no focal deficits. Absent: speech deficit - Psychiatric Psychiatric exam: Present: anxious, depressed - Skin Skin exam: Present: dry, intact, warm Internal Medicine: Result - Labs CBC & Chem 7: 03/18/17 03:48 03/18/17 03:48 Labs: Short CBC 03/18/17 Range/Units 03:48 WBC 7.9 (4.3-11.1) K/mcL Hgb 8.6 L (12.9-16.9) g/dL Hct 27.4 L (37.5-50.1) % Plt Count 246 (140-400) K/mcL Neutrophils # 5.1 (1.6-8.9) K/mcL BMP 03/18/17 03:48 Sodium 138 Potassium 3.7 Chloride 113 H Carbon Dioxide 17 L BUN 8 Creatinine 0.71 L Glucose 126 H Calcium 8.2 L - ABG Interpretation ABG results: PT/INR, D-dimer PT 14.0 Seconds (9.4-12.1) H 03/15/17 15:39
[2017-03-18] MEDS: *HR* OxyCODONE/APAP 5/325 TABLET PO PRN (19:54)
[2017-03-19] MEDS: *HR* OxyCODONE/APAP 5/325 TABLET PO PRN ×2 (02:41→08:55)
[2017-03-19] MEDS: 0.9 % Sodium Chloride 1,000 ML IVC SCH (02:47)
[2017-03-19] MEDS: Ipratropium/Albuterol Neb 3 ML IH SCH ×3 (04:28→11:16)
[2017-03-19] MEDS: *HR* Heparin 5,000 UNIT/ML VIAL SQ SCH (05:48)
[2017-03-19 06:20] LABS: Basophils % 0.3 %; Eosinophils % 0.7 %; Hematocrit 33.8 % (37.5-50.1); Immature Granulocytes % 3.3 % (0-4); Lymphocytes % 32.2 %; Mean Corpuscular HGB Conc 31.1 g/dL (31.6-35.5); Mean Corpuscular Hemoglobin 26.1 pg (28.0-33.3); Mean Corpuscular Volume 83.9 fL (83.0-100.0); Mean Platelet Volume 8.6 fL (9.4-12.4); Monocytes # 0.4 K/mcL (0.0-1.3); Monocytes % 7.1 %; Neutrophils # 3.4 K/mcL (1.6-8.9); Platelet Count 234 K/mcL (140-400); Red Blood Count 4.03 M/mcL (4.19-5.50); Red Cell Distribution Width 19.7 % (11.5-14.5); Segmented Neutrophils % 56.4 %
[2017-03-19 06:22] LABS: Hemoglobin 10.5 g/dL (12.9-16.9)
[2017-03-19] MEDS: Folic Acid 1 MG TABLET PO SCH (08:55)
[2017-03-19] MEDS: Aspirin Enteric Coated 81 MG Tablet PO SCH (08:55)
[2017-03-19] MEDS: Vitamin B Complex/Vit C/Vit E 1 EACH TABLET PO SCH (08:55)
[2017-03-19] MEDS: Thiamine (B-1) 100 MG TABLET PO SCH (08:55)
[2017-03-19] MEDS: Levofloxacin 750 MG/150 ML 750 MG/150 ML BAG IVPB SCH (08:56)
[2017-03-19] MEDS: Gabapentin 300 MG CAPSULE PO SCH (08:56)
[2017-03-19] MEDS: Divalproex (12 HR) 250 MG TABLET PO SCH (08:57)
[2017-03-19] MEDS: Nicotine 21 MG PATCH.TD24 TD SCH (08:57)
--- NOTE | 2017-03-19 08:58 | Pulmonology Progress Note ---
<Brenden Zuniga - Last Filed: 03/19/17 08:56> Date of Encounter: 03/19/17 Time of Encounter: 08:56 Assessment and Plan (1) Abnormal CT of the chest Current Visit: Yes Status: Acute Patient has fluid collection in RLL. this appears to be improving from prior CT. He dose have multiple ground glass opacities> left lung. He has been deescalated to levofloxacin. Blood cultures show NGTD. BAL shows few GPC in the RLL. Final report states normal repsiratory alexsandra. LLL shows WBC but no bacteria on gram stain. ESR elevated 11 RF negative RAOUL pending. AFB and fungal cultures pending. Currently on Room air. Given patients history I doubt this is secondary to an inflamatory condition. I would lean more toward an infectious process. Continue current antibiotic regimen. Yeast species did grow from BAL. However I think this is likely contaminant as candidal pneumonia is typicall found in the setting of hematogenous spread in patients who are immunocomprimised or have hematologic malignancies. Additionally patient is doing well and is on room air. I would not recommend an antifungal at this time. May consider testing for Cdiff if patient has continued loose stools. However Nursing staff is not reporting bowel movements. Will defer to primary team. 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 continue with analgesics and lidoderm patches. would consider pain management referral upon discharge. (3) ETOH abuse Current Visit: Yes Status: Acute on CIWA Subjective Principal diagnosis: Pneumonia Interval history: No major events overnight. Patient complains of continued pain in the right thoracic area. He states it is worse today after his medications were changed. He complains of having 3 loose bowel movements overnight. complains of bilateral lower abdomonimal pain that is mild and crampy. Denies any increased dyspnea, cough or wheeze. HE has no further complaints or concerns at this time. Objective PUL Vital signs: Last Vital Signs Temp 98.1 F 03/19/17 06:29 Pulse 100 03/19/17 06:29 Resp 16 03/19/17 06:29 BP 103/67 03/19/17 06:29 Pulse Ox 96 03/19/17 06:29 General appearance: no acute distress Eyes: nonicteric ENT: oropharynx moist Neck: supple Effort: normal Auscultation: bilateral: clear Percussion: bilateral: not dull Tactile fremitus: bilateral: normal Cardiovascular: regular rate and rhythm Gastrointestinal: normoactive bowel sounds, tender (mild lower quadrants. ), non -distended Integumentary: normal Extremities: no cyanosis, no edema, no clubbing Musculoskeletal: no deformities, ROM normal Results - Laboratory Findings CBC and BMP: 03/19/17 06:11 03/18/17 03:48 PT/INR, D-dimer PT 14.0 Seconds (9.4-12.1) H 03/15/17 15:39 Abnormal lab findings: Abnormal lab results RBC 4.03 M/mcL (4.19-5.50) L 03/19/17 06:11 Hgb 10.5 g/dL (12.9-16.9) L D 03/19/17 06:11 Hct 33.8 % (37.5-50.1) L 03/19/17 06:11 MCH 26.1 pg (28.0-33.3) L 03/19/17 06:11 MCHC 31.1 g/dL (31.6-35.5) L 03/19/17 06:11 RDW 19.7 % (11.5-14.5) H 03/19/17 06:11 MPV 8.6 fL (9.4-12.4) L 03/19/17 06:11 Band Neutrophils % 5.0 % (0-4) H 03/15/17 15:39 Nucleated RBCs/100 WBC 0.2 /100 WBC (0) H 03/15/17 15:39 Reactive Lymphocytes Present (Not Present) A 03/17/17 05:13 Hypochromasia Present (Not Present) A 03/17/17 05:13 Anisocytosis 1+ (Not Present) A 03/17/17 05:13 ESR 111 mm/hr (0-10) H 03/17/17 05:13 PT 14.0 Seconds (9.4-12.1) H 03/15/17 15:39 Chloride 113 mEq/L (98-109) H 03/18/17 03:48 Carbon Dioxide 17 mEq/L (19-29) L 03/18/17 03:48 Creatinine 0.71 mg/dL (0.72-1.25) L 03/18/17 03:48 Glucose 126 mg/dL (70-99) H 03/18/17 03:48 Calcium 8.2 mg/dL (8.6-10.8) L 03/18/17 03:48 AST 35 Units/L (5-34) H 03/15/17 15:39 C-Reactive Protein 21 mg/L (Less than 5) H 03/17/17 05:13 Albumin 2.1 g/dL (3.5-5.0) L 03/15/17 15:39 Globulin 6.0 g/dL (2.4-3.5) H 03/15/17 15:39 Albumin/Globulin Ratio 0.4 (1.1-2.2) L 03/15/17 15:39 Fluid Appearance Cloudy (Clear) A 03/17/17 13:19 - Microbiology Findings Microbiology Findings: Microbiology, Last 48 Hours 03/17/17 13:19 Acid Fast Stain - Final Right Lower Lobe Lung 03/17/17 13:19 Acid Fast Stain - Final Left Lower Lobe Lung 03/17/17 13:00 Respiratory Culture - Preliminary Left Lower Lobe Lung Yeast Species 03/17/17 13:19 Gram Stain - Final Right Lower Lobe Lung Respiratory Culture - Final Normal upper respiratory tract alexsandra. No apparent pathogens isolated. 03/17/17 13:19 Gram Stain - Final Left Lower Lobe Lung - Clinical Findings Intake & Output: Intake & Output 03/18/17 03/19/17 03/19/17 23:59 07:59 15:59 Intake Total 0 / 0 1000 / 1000 Output Total 2400 / 2400 Balance -2400 / -2400 1000 / 1000 Weight 89.2 kg Consult Discharge Plan - Plan Referrals: NO,PCP [Primary Care Provider] - <Ellie Lane - Last Filed: 03/19/17 12:46> Date of Encounter: 03/19/17 Objective PUL Vital signs: Last Vital Signs Temp 98.5 F 03/19/17 11:46 Pulse 105 03/19/17 11:46 Resp 16 03/19/17 11:46 BP 106/88 03/19/17 11:46 Pulse Ox 97 03/19/17 11:46 Results - Laboratory Findings CBC and BMP: 03/19/17 06:11 03/18/17 03:48 PT/INR, D-dimer PT 14.0 Seconds (9.4-12.1) H 03/15/17 15:39 Abnormal lab findings: Abnormal lab results RBC 4.03 M/mcL (4.19-5.50) L 03/19/17 06:11 Hgb 10.5 g/dL (12.9-16.9) L D 03/19/17 06:11 Hct 33.8 % (37.5-50.1) L 03/19/17 06:11 MCH 26.1 pg (28.0-33.3) L 03/19/17 06:11 MCHC 31.1 g/dL (31.6-35.5) L 03/19/17 06:11 RDW 19.7 % (11.5-14.5) H 03/19/17 06:11 MPV 8.6 fL (9.4-12.4) L 03/19/17 06:11 Band Neutrophils % 5.0 % (0-4) H 03/15/17 15:39 Nucleated RBCs/100 WBC 0.2 /100 WBC (0) H 03/15/17 15:39 Reactive Lymphocytes Present (Not Present) A 03/17/17 05:13 Hypochromasia Present (Not Present) A 03/17/17 05:13 Anisocytosis 1+ (Not Present) A 03/17/17 05:13 ESR 111 mm/hr (0-10) H 03/17/17 05:13 PT 14.0 Seconds (9.4-12.1) H 03/15/17 15:39 Chloride 113 mEq/L (98-109) H 03/18/17 03:48 Carbon Dioxide 17 mEq/L (19-29) L 03/18/17 03:48 Creatinine 0.71 mg/dL (0.72-1.25) L 03/18/17 03:48 Glucose 126 mg/dL (70-99) H 03/18/17 03:48 Calcium 8.2 mg/dL (8.6-10.8) L 03/18/17 03:48 AST 35 Units/L (5-34) H 03/15/17 15:39 C-Reactive Protein 21 mg/L (Less than 5) H 03/17/17 05:13 Albumin 2.1 g/dL (3.5-5.0) L 03/15/17 15:39 Globulin 6.0 g/dL (2.4-3.5) H 03/15/17 15:39 Albumin/Globulin Ratio 0.4 (1.1-2.2) L 03/15/17 15:39 Fluid Appearance Cloudy (Clear) A 03/17/17 13:19 - Microbiology Findings Microbiology Findings: Microbiology, Last 48 Hours 03/17/17 13:19 Acid Fast Stain - Final Right Lower Lobe Lung 03/17/17 13:19 Acid Fast Stain - Final Left Lower Lobe Lung 03/17/17 13:00 Respiratory Culture - Preliminary Left Lower Lobe Lung Yeast Species 03/17/17 13:19 Gram Stain - Final Right Lower Lobe Lung Respiratory Culture - Final Normal upper respiratory tract alexsandra. No apparent pathogens isolated. 03/17/17 13:19 Gram Stain - Final Left Lower Lobe Lung - Clinical Findings Intake & Output: Intake & Output 03/18/17 03/19/17 03/19/17 23:59 07:59 15:59 Intake Total 0 / 0 1240 / 1240 Output Total 2400 / 2400 Balance -2400 / -2400 1240 / 1240 Weight 89.2 kg - Attending Attestation I examined this patient and my medical decision-making was reviewed with the LOCAL COMPANY TANKER DRIVER/PA/Advanced Practice Nurse/Resident Physician. I agree with the documented findings, disposition and treatment plan as described except to the extent set forth below. Patient seen and examined. Labs, radiology, chart personally reviewed. Agree with resident's history and physical, assessment, plan with following comments: MEDICAL BILLING SUPERVISOR: Patient follows commands, Pulmonary: Acceptable oxygenation and ventilation. Patient will need to follow -up CT chest as outpatient in 2-3 months and then follow-up. Follow-up when necessary and thank you for the consult please call for any questions.
[2017-03-19 11:48] VITALS: BP 106/88
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
[2017-03-19 12:15] LABS: ANA IgG by ELISA NONE DETECTED (None Detected)
== END 2017-03-19 14:00 | disposition home or self-care (01) | DRG 166 ==
LOC: 2NENU 15:02 → EMEROO 15:02 → 2NENU 17:20
PROVIDERS: ADMIT Internal Medicine; ATTEND Internal Medicine

== ENCOUNTER 2017-03-27 09:35 | Observation (INO) ==
--- NOTE | 2017-03-27 09:54 | Emergency Department Note ---
Disposition Clinical Impression: Abdominal pain Qualifiers: Abdominal location: right upper quadrant Qualified Code(s): R10.11 - Right upper quadrant pain Disposition: Still a Patient Condition: Fair Referrals: NO,PCP [Primary Care Provider] - Forms: Work/School Release, ED Satisfaction Letter Time of Disposition: 11:08 General Adult HPI - General Chief complaint: ED Abdominal Pain Stated complaint: abdominal pain Time Seen by Provider: 03/27/17 09:44 Source: patient Limitations: no limitations Nursing Notes Reviewed: Yes Vital Signs Reviewed: Yes - History of Present Illness HPI Narrative: Alert and oriented nontoxic appearing 61-year-old male presents to the emergency department by EMS for evaluation of: Right upper quadrant abdominal pain/right anterior chest wall pain, nausea, vomiting, headache that began yesterday evening and has gradually worsened since. He denies any fevers, chills, diarrhea, urinary symptoms, chest pain, cough, or sputum production. He complains of a "bruise" just below his right nipple region. He states that he was drinking vodka yesterday evening and does not remember falling or "running into something" but then goes on to state "that is what it feels like" . He states the pain is worsened with movement, palpation, and deep inspiration. He rates his pain a 10 out of 10 on a 10 point scale describes it as sharp in nature. He denies any blood-tinged or dark colored sputum. He denies any urinary symptoms. He denies any blood in his urine or blood in his stool. He does complain of a slight headache, however states he feels this may be from the recent episodes of vomiting. Pt Subjective Complaint: Abdominal pain, right flank pain, pain with inspiration , shortness of breat Onset (ago): hour(s) (Yesterday evening) Pain Scale: 10 Quality: sharp Consistency: Worsening Improves with: nothing Worsens with: movement, other (Patient, inspiration) Associated symptoms: Reports: headaches, nausea/vomiting. Denies: chest pain, cough, diaphoresis, fever/chills Treatments Prior to Arrival: none - Related Data Home Medications Medication Instructions Recorded Confirmed Albuterol Sulfate [Proair Hfa] 2 puff IH Q6H PRN 12/21/16 03/15/17 Gabapentin [Neurontin] 600 mg PO TID 12/21/16 03/15/17 Quetiapine Fumarate [Seroquel] 300 mg PO HS 12/21/16 03/15/17 SUMAtriptan [Imitrex] 6 mg SQ AD PRN 12/21/16 03/15/17 Divalproex Sodium [Depakote] 250 mg PO TID 03/15/17 03/15/17 Lipase/Protease/Amylase [[place] Dr 3 cap PO TID 03/15/17 03/15/17 12,000 Units Capsule] Omeprazole [PriLOSEC] 20 mg PO DAILY 03/15/17 03/15/17 Previous Rx's Medication Instructions Recorded Ibuprofen [Motrin] 600 mg PO Q6HR PRN #0 tablet 03/03/17 diazePAM [Valium] 2 mg PO TID PRN #6 tablet 03/03/17 Levofloxacin [Levaquin] 750 mg PO DAILY #3 tablet 03/19/17 OxyCODONE/APAP 5/325 [Percocet 1 each PO Q6HR PRN #7 tablet 03/19/17 5/325 MG] Allergies Allergy/AdvReac Type Severity Reaction Status Date / Time No Known Allergies Allergy Verified 03/14/17 17:28 All systems ED: reviewed and negative except as stated. Constitutional: Denies: fever, chills, weakness, weight change Eyes: Denies: eye pain, eye discharge, vision change ENT ED: Denies: ear pain, throat pain, dental pain, hearing loss, epistaxis, congestion, dysphagia Cardiovascular: Denies: chest pain, palpitations, dyspnea on exertion, edema, syncope Respiratory: Denies: cough, dyspnea, wheezes, hemoptysis, stridor Gastrointestinal: Reports: as per HPI, abdominal pain, nausea, vomiting. Denies : diarrhea, constipation, hematemesis, melena, hematochezia Genitourinary: Denies: urgency, dysuria, frequency, hematuria Musculoskeletal: Reports: as per HPI, other (Right anterior chest wall pain). Denies: back pain, neck pain, arthralgia, myalgia Integumentary: Denies: rash, abrasion, lesions Neurological: Denies: headache, weakness, numbness, paresthesias, confusion, abnormal gait, vertigo Psychiatric: Denies: anxiety, depression, suicidal thoughts, homicidal thoughts , auditory hallucinations, visual hallucinations Endocrine: Denies: fatigue Hematological/Lymphatic: Denies: easy bleeding, easy bruising Allergic/Immunologic: Denies: facial swelling, urticaria Past Medical History - Past Medical History Attestation: Yes The following information was validated with the patient. Source: patient, nursing notes reviewed Medical history: Reports: COPD, CVA, GERD, hypertension, migraine, myocardial infarction, other Surgical history: Reports: appendectomy, cholecystectomy, other (Partial Pancreatectomy, surgeries for partial bowel resection, PEG insertion, temporary ileostomy and reversal.) Psychiatric history: Reports: anxiety, bipolar, depression, schizophrenia, previous psychiatric hospitalization, other - Social History Smoking Status: Current every day smoker Smokeless Tobacco Status: No Alcohol use: Reports: heavy Drug use: Reports: none Physical Exam - General Limitations: no limitations General appearance: alert - Head Head exam: atraumatic, normocephalic, normal inspection - Eye Eye exam: Present: normal appearance, PERRL, EOMI. Absent: nystagmus - ENT ENT exam: mucous membranes moist - Neck Neck exam: Present: normal inspection, full ROM, trachea midline - Chest Chest inspection: Present: normal inspection, symmetric chest wall rise, tenderness (The patient is exquisitely tender to palpation of the right anterior /lateral chest wall, below the nipple. No obvious ecchymosis, abrasion, or deformity.). Absent: abscess - Respiratory Respiratory exam: Present: normal lung sounds bilaterally. Absent: respiratory distress, wheezes, stridor, accessory muscle use, prolonged expiratory phase - Cardiovascular Cardiovascular exam: Present: regular rate, normal rhythm, normal heart sounds - Abdominal Exam Abdominal exam: Present: soft, Non-Tender, normal bowel sounds. Absent: tenderness, distention, guarding, rebound, rigidity, organomegaly, Chan's sign , tenderness at McBurney's Point, mass - Extremities Exam Extremities exam: Present: normal inspection, full ROM. Absent: tenderness, pedal edema - Back Exam Back exam: Present: normal inspection, full ROM. Absent: tenderness - Neurological Exam Neurological exam: Present: alert, oriented X3 - Psychiatric Psychiatric exam: Present: normal affect, normal mood - Skin Skin exam: Present: warm, dry, intact, normal color Course Vital Signs Temperature 99.5 F 03/27/17 09:38 Pulse Rate 110 03/27/17 09:38 Respiratory Rate 25 03/27/17 09:38 Blood Pressure 167/110 03/27/17 09:38 O2 Sat by Pulse Oximetry 96 03/27/17 09:38 Temperature 99.5 F 03/27/17 09:38 Pulse Rate 109 03/27/17 11:20 Respiratory Rate 21 03/27/17 11:20 Blood Pressure 167/102 03/27/17 11:20 O2 Sat by Pulse Oximetry 98 03/27/17 11:20 Oxygen Delivery Oxygen Delivery Room Air Medical Decision Making - Medical Records Medical records reviewed: Yes I reviewed the patient's medical records. - Lab Data Lab results reviewed: Yes I reviewed the patient's lab results. Result diagrams: 03/27/17 10:08 03/27/17 10:08 Lab Results 03/27/17 03/27/17 03/27/17 Range/Units 10:08 10:08 10:08 WBC 9.1 (4.3-11.1) K/mcL RBC 4.45 (4.19-5.50) M/mcL Hgb 11.6 L (12.9-16.9) g/dL Hct 36.5 L (37.5-50.1) % MCV 82.0 L (83.0-100.0) fL MCH 26.1 L (28.0-33.3) pg MCHC 31.8 (31.6-35.5) g/dL RDW 18.6 H (11.5-14.5) % Plt Count 231 (140-400) K/mcL MPV 9.2 L (9.4-12.4) fL Immature Gran % 0.2 (0-4) % Seg Neutrophils % 70.6 % Lymphocytes % 24.9 % Monocytes % 3.4 % Eosinophils % 0.3 % Basophils % 0.6 % Neutrophils # 6.4 (1.6-8.9) K/mcL Lymphocytes # 2.3 (0.6-4.6) K/mcL Monocytes # 0.3 (0.0-1.3) K/mcL Eosinophils # 0.0 (0.0-0.6) K/mcL Basophils # 0.1 (0.0-0.2) K/mcL Platelet Estimate Normal (Normal) Immature Plt Fraction 1.3 (1.1-6.1) % Anisocytosis 1+ A (Not Present) D-Dimer 2052 H (0-500) ng/mLFEU Sodium 135 L (136-145) mEq/L Potassium 3.3 L (3.5-4.5) mEq/L Chloride 105 (98-109) mEq/L Carbon Dioxide 15 L (19-29) mEq/L BUN 12 (8-26) mg/dL Creatinine 0.67 L (0.72-1.25) mg/dL Est GFR ( Amer) > 60 (> 60) Est GFR (Non-Af Amer) > 60 (> 60) BUN/Creatinine Ratio 18 (6-26) Glucose 108 H (70-99) mg/dL Calculated Osmolality 280 (280-300) Calcium 8.8 (8.6-10.8) mg/dL Total Bilirubin 0.7 (0.2-1.2) mg/dL Direct Bilirubin 0.4 (0.0-0.5) mg/dL Indirect Bilirubin 0.3 (0.0-1.2) mg/dL AST 74 H (5-34) Units/L ALT 41 (0-55) Units/L Alkaline Phosphatase 285 H (38-126) Units/L Troponin I (0-0.03) ng/mL C-Reactive Protein 4 (Less than 5) mg/L Serum Total Protein 8.6 H (6.0-8.3) g/dL Albumin 3.0 L (3.5-5.0) g/dL Globulin 5.6 H (2.4-3.5) g/dL Albumin/Globulin Ratio 0.5 L (1.1-2.2) Amylase 449 H (25-125) Units/L Lipase 729 H (8-78) Units/L 03/27/17 Range/Units 10:08 WBC (4.3-11.1) K/mcL RBC (4.19-5.50) M/mcL Hgb (12.9-16.9) g/dL Hct (37.5-50.1) % MCV (83.0-100.0) fL MCH (28.0-33.3) pg MCHC (31.6-35.5) g/dL RDW (11.5-14.5) % Plt Count (140-400) K/mcL MPV (9.4-12.4) fL Immature Gran % (0-4) % Seg Neutrophils % % Lymphocytes % % Monocytes % % Eosinophils % % Basophils % % Neutrophils # (1.6-8.9) K/mcL Lymphocytes # (0.6-4.6) K/mcL Monocytes # (0.0-1.3) K/mcL Eosinophils # (0.0-0.6) K/mcL Basophils # (0.0-0.2) K/mcL Platelet Estimate (Normal) Immature Plt Fraction (1.1-6.1) % Anisocytosis (Not Present) D-Dimer (0-500) ng/mLFEU Sodium (136-145) mEq/L Potassium (3.5-4.5) mEq/L Chloride (98-109) mEq/L Carbon Dioxide (19-29) mEq/L BUN (8-26) mg/dL Creatinine (0.72-1.25) mg/dL Est GFR ( Amer) (> 60) Est GFR (Non-Af Amer) (> 60) BUN/Creatinine Ratio (6-26) Glucose (70-99) mg/dL Calculated Osmolality (280-300) Calcium (8.6-10.8) mg/dL Total Bilirubin (0.2-1.2) mg/dL Direct Bilirubin (0.0-0.5) mg/dL Indirect Bilirubin (0.0-1.2) mg/dL AST (5-34) Units/L ALT (0-55) Units/L Alkaline Phosphatase (38-126) Units/L Troponin I 0.00 (0-0.03) ng/mL C-Reactive Protein (Less than 5) mg/L Serum Total Protein (6.0-8.3) g/dL Albumin (3.5-5.0) g/dL Globulin (2.4-3.5) g/dL Albumin/Globulin Ratio (1.1-2.2) Amylase (25-125) Units/L Lipase (8-78) Units/L - Radiology Data Radiology results reviewed: Yes I reviewed the patient's radiology results. - EKG Data EKG #1 EKG attestation: Yes I reviewed and interpreted this EKG. EKG results narrative: EKG reviewed by Dr. John as well. EKG shows a sinus tachycardia at a rate of [address] depression. No ectopy noted. No STEMI. S.B.A.R. - Lanny Transition of Care: Care of this patient has been transferred to Dr. Chowdary due to mid-level shift change. Situation: Demographics, MOA Background: Presenting Complaint, Relevant PMH, Meds, & Allergies Assessment: Vital Signs, Course and respsone to treatment, Exam Concerns, Patient/Family Expectation, Pertinant Lab Results, Outstanding Labs Recommendation: Barrier(s) to disposition, Recommendation based on pending studies, treatments, or consults S.B.Brandan Report Given to: Dr. Ricarda Ca Repor Time: 11:08
[2017-03-27 10:16] LABS: Basophils # 0.1 K/mcL (0.0-0.2); Basophils % 0.6 %; Eosinophils % 0.3 %; Hematocrit 36.5 % (37.5-50.1); Hemoglobin 11.6 g/dL (12.9-16.9); Immature Granulocytes % 0.2 % (0-4); Immature Platelets 1.3 % (1.1-6.1); Lymphocytes # 2.3 K/mcL (0.6-4.6); Lymphocytes % 24.9 %; Mean Corpuscular HGB Conc 31.8 g/dL (31.6-35.5); Mean Corpuscular Hemoglobin 26.1 pg (28.0-33.3); Mean Platelet Volume 9.2 fL (9.4-12.4); Monocytes # 0.3 K/mcL (0.0-1.3); Monocytes % 3.4 %; Neutrophils # 6.4 K/mcL (1.6-8.9); Platelet Count 231 K/mcL (140-400); Red Blood Count 4.45 M/mcL (4.19-5.50); Red Cell Distribution Width 18.6 % (11.5-14.5); Segmented Neutrophils % 70.6 %
[2017-03-27 10:30] LABS: Alanine Aminotransferase 41 Units/L (0-55); Albumin/Globulin Ratio 0.5 (1.1-2.2); Alkaline Phosphatase 285 Units/L (38-126); Amylase 449 Units/L (25-125); Aspartate Amino Transferase 74 Units/L (5-34); BUN/Creatinine Ratio 18 (6-26); Bilirubin,Direct 0.4 mg/dL (0.0-0.5); Bilirubin,Indirect 0.3 mg/dL (0.0-1.2); Bilirubin,Total 0.7 mg/dL (0.2-1.2); Blood Urea Nitrogen 12 mg/dL (8-26); Calcium 8.8 mg/dL (8.6-10.8); Carbon Dioxide 15 mEq/L (19-29); Chloride 105 mEq/L (98-109); Globulin 5.6 g/dL (2.4-3.5); Glucose 108 mg/dL (70-99); Lipase 729 Units/L (8-78); Osmolality,Calculated 280 (280-300); Potassium 3.3 mEq/L (3.5-4.5); Sodium 135 mEq/L (136-145); Total Protein 8.6 g/dL (6.0-8.3); eGFR For African Americans > 60 (> 60); eGFR For Non-African Americans > 60 (> 60)
[2017-03-27 10:36] LABS: Anisocytosis 1+ (Not Present); Platelet Estimate Normal (Normal)
[2017-03-27 11:32] LABS: C-Reactive Protein 4 mg/L (Less than 5)
[2017-03-27] MEDS ORDERED: *HR* LORazepam 2 MG/ML VIAL IVP ONE ×2 (11:58→14:58)
[2017-03-27] MEDS ORDERED: 0.9 % Sodium Chloride 1,000 ML IVC ONE ×2 (12:01→13:17)
--- NOTE | 2017-03-27 12:07 | Emergency Department Note ---
START Narrative - START START: Agree with H&P as documented per APC. 61-year-old male with a history of chronic alcoholism and recent discharged in the hospital reports emergency department complaining of abdominal pain and chest pain. The chest pain is on the right side. Hurts with movement. He also has some abdominal pain which is on the right side. He states he got up late last night and my to fall onto his right side he is not sure. He denies head trauma or neck pain or back pain. He describes right rib and right abdominal pain. There is no history of diarrhea or bloody stool. He is not anticoagulated. The patient states he has had some vomiting. The patient reports he has chronic headaches. No history of convulsion or confusion or any trouble moving the arms or legs independently. No bowel or bladder problems or upper or lower extremity pain or injury. The patient has not had a fever. There is no history of coughing or anterior chest pain. No radiating pain to the arms or jaw. The patient reports he last drank alcohol yesterday. He describes significant anxiety. There is no history of fever. No convulsions or confusion. No unilateral arm or leg weakness or numbness. There is no history of jatin syncope. No leg swelling or pain or coughing up blood. Review of systems a complete review of systems was reviewed and is otherwise negative or noncontributory. Physical exam Gen. this is an age-appropriate male lying supine he appears to be somewhat anxious. He answers questions properly. He does not appear to be in jatin distress. HEENT normocephalic/atraumatic tympanic membrane is clear or mucosa moist neck is supple no pain to palpation of the cervical spinous processes. Inspection of the back revealed no acute trauma no pain to palpation rectal lumbar area or CVA region. Chest wall shows no crepitus step- off or flail chest. No jatin bruising some tenderness right rib area. Exposed skin warm and dry without petechial purpura. Abdomen soft nondistended no rebound rigidity or guarding multiple postsurgical scars are noted. Clean dry intact well healed. Cardiovascular S1 and S2 audible somewhat rapid no JVD or externally cyanosis or edema noted. Lungs clear to auscultation bilaterally without jatin wheezes rhonchi rales or crackles. Neurologic muscle strength and sensation are generally intact in all 4 extremities. Cranial nerves II through XII grossly intact. Extremities show good range of motion throughout the ankles knees and hips Rosa shoulders no evidence of trauma. Impression: Chronic alcoholism Anxiety Pancreatitis Right rib pain Right upper abdominal pain Aortic aneurysm History of multiple abdominal surgeries Anemia Hypokalemia Hematuria CAD COPD Abnormal chest CT suggestive of inflammatory or infectious change The patient is currently stable, he seems to be significantly anxious, Ativan was given in the ED, he may be an early alcohol withdrawal. He does have significant changes on his CT suggestive defamatory or infectious lung disease. He also has evidence of pancreatitis on CT scan or by laboratory analysis. Based on the patient's presentation and findings, I think it would be appropriate to admit the patient to the hospital. Blood cultures were sent. Lactic acid negative. The patient has been somewhat tachycardic and tachypneic which may be secondary to anxiety, pain, or alcohol withdrawal, sepsis could be considered. IV fluids were given as well as broad-spectrum antibiotic coverage. The patient is currently stable pending admission. I reviewed the case with the hospitalist on-call who has accepted the patient to their care.
[2017-03-27] MEDS ORDERED: *HR* Promethazine 25 MG/ML VIAL IVP ONE (12:12)
[2017-03-27] MEDS ORDERED: Levofloxacin 750 MG/150 ML 750 MG/150 ML BAG IVPB ONE (12:29)
[2017-03-27] MEDS ORDERED: Piperacillin/Tazobactam 3.375 GM in D5% in Water (Mini-Bag+) 100 ML IVPB ONE (12:29)
[2017-03-27] MEDS ORDERED: Vancomycin 1,000 MG in D5% in Water 250 ML IVPB ONE (12:29)
[2017-03-27 12:32] LABS: Bilirubin,Urine Negative (Negative); Blood,Urine Negative (Negative); Clarity,Urine Cloudy (Clear); Color,Urine Yellow (Yellow); Glucose,Urine (UA) Normal (Normal); Ketones,Urine Negative (Negative); Leukocyte Esterase,Urine Negative (Negative); Nitrite,Urine Negative (Negative); PH,Urine 6.5 pH Units (5.0-8.0); Protein,Urine 30 mg/dL (Neg-Trace); Specific Gravity,Urine 1.025 (1.010-1.025); Urobilinogen,Urine Normal (Normal)
[2017-03-27 12:36] LABS: Amphetamine Screen,Urine Negative ng/mL (Cutoff=1000); Bacteria,Urine None Seen per hpf (None-Few); Barbiturate Screen,Urine Negative ng/mL (Cutoff=200); Benzodiazepines Screen,Urine Positive ng/mL (Cutoff=200); Cannabinoid Screen,Urine Negative ng/mL (Cutoff = 50); Cocaine Screen,Urine Negative ng/mL (Cutoff= 300); Hyaline Casts,Urine None Seen per lpf (None-Few); Opiate Screen,Urine Negative ng/mL (Cutoff=300); Phencyclidine Screen,Urine Negative ng/mL (Cutoff=25); Squamous Epithelial Cell,Urine Few per lpf (None-Few); WBC,Urine 0-3 per hpf (0-3)
[2017-03-27] MEDS ORDERED: *HR* HYDROmorphone (PF) 1 MG/ML SYRINGE IVP ONE ×2 (13:28→19:44)
[2017-03-27] MEDS ORDERED: Ondansetron 4 MG/2 ML VIAL IVP PRN (14:50)
[2017-03-27] MEDS ORDERED: *HR* LORazepam 2 MG/ML VIAL IVP PRN (14:50)
[2017-03-27] MEDS ORDERED: Naloxone 0.4 MG/ML INJ IVP PRN (14:50)
[2017-03-27] MEDS ORDERED: *HR* Morphine 2 MG/ML SYRINGE IVP PRN (14:50)
[2017-03-27] MEDS ORDERED: Pantoprazole 40 MG VIAL IVP SCH (14:52)
[2017-03-27] MEDS ORDERED: 0.9 % Sodium Chloride 1,000 ML IVC SCH (15:00)
--- NOTE | 2017-03-27 15:36 | Internal Med History&Physical ---
Date of Encounter: 03/27/17 Time of Encounter: 15:46 Assessment and Plan (1) Pancreatitis, alcoholic, acute Current visit: Yes Status: Acute presented with severe ABD pain. 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 Amylase 449, lipase 729. Likely secondary to etoh use. Cont IV fluids, ATB started in the ED. Hx partial pancreatectomy at [facility] 2014. With patient's hx and concern for pancreatic necrosis, decision made to transfer to [facility]. 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 Last drink evening prior to admission. Tremulous and in acute withdrawal on arrival. IV ativan given in the ED. Monitor with CIWA, would have low threshold for precedex. Monitor closely in step down Qualifiers: Complication of substance-induced condition: uncomplicated Qualified Code(s ): F10.230 - Alcohol dependence with withdrawal, uncomplicated (3) Accelerated essential hypertension Current visit: No Status: Acute BP elevated in the ED. Holding home BP medications with NPO. Add IV hydralazine (4) Bipolar disorder, unspecified Current visit: No Status: Chronic per hx. Resume psychiatric medications when able Qualifiers: Active/Remission status: currently active Current bipolar episode type: mixed Current episode severity: unspecified Qualified Code(s): F31.60 - Bipolar disorder, current episode mixed, unspecified Internal Medicine - H&P: HPI Chief complaint: abdominal pain Admitted From: Home Plans for Post Hospital Care: Home History of present illness: Mr. Chen is a 61 year old male with PMH Etoh abuse, cirrhosis, and bipolar who presented to [facility] on 03/26/2017 with complaints of abdominal pain. ABD CT with acute pancreatitis with concern for pancreatic necrosis. Case discussed with Dr. Ziegler and patient had extensive stay at [facility] 2014 requiring multiple abdominal surgeries including partial pancreatectomy, small bowel, and ostomy with reversal. Information obtained form chart review and patient report. Patient says he woke up in the middle of the night and fell, landed on right side. Says he woke up this morning with rideed pain and severe abdominal pain. He is in acute alcohol withdrawal, last drink at 1700 evening prior to admission. Past Med Surg Social Fam HX - Past Medical History Medical history: COPD, CVA, GERD, hypertension, migraine, myocardial infarction , other Psychiatric history: anxiety, bipolar, depression, schizophrenia, previous psychiatric hospitalization, other - Past Surgical History Surgical History: appendectomy, cholecystectomy, other (Partial Pancreatectomy, surgeries for partial bowel resection, PEG insertion, temporary ileostomy and reversal.) - Social History Smoking Status: Current every day smoker Smokeless Tobacco Status: No Alcohol use: heavy Drug use: none - Family History Mother Family Member Ethnicity: Non- Living Status: Still Living Hx Family Cardiac Disorders: Yes (htn) Hx Family Respiratory Disorders: No Hx Family Cancer: Yes (Colon) Hx Family GI Disorders: No Hx Family Endocrine Disorder: No Hx Family Neuromuscular Disorders: Yes (Neuropathy) Hx Family Neurologic Disorders: No Hx Family HEENT Disorders: No Hx Family Autoimmune Disorders: No Father Living Status: Internal Medicine - H&P: Meds Albuterol Sulfate [Proair Hfa] 2 puff IH Q6H PRN 12/21/16 [History] Gabapentin [Neurontin] 600 mg PO TID 12/21/16 [History] Quetiapine Fumarate [Seroquel] 300 mg PO HS 12/21/16 [History] SUMAtriptan [Imitrex] 6 mg SQ AD PRN 12/21/16 [History] Ibuprofen [Motrin] 600 mg PO Q6HR PRN #0 tablet 03/03/17 [Rx] diazePAM [Valium] 2 mg PO TID PRN #6 tablet 03/03/17 [Rx] Divalproex Sodium [Depakote] 250 mg PO TID 03/15/17 [History] Lipase/Protease/Amylase [Creon Dr 12,000 Units Capsule] 3 cap PO TID 03/15/17 [ History] Omeprazole [PriLOSEC] 20 mg PO DAILY 03/15/17 [History] Levofloxacin [Levaquin] 750 mg PO DAILY #3 tablet 03/19/17 [Rx] OxyCODONE/APAP 5/325 [Percocet 5/325 MG] 1 each PO Q6HR PRN #7 tablet 03/19/17 [ Rx] Allergies No Known Allergies Allergy (Verified 03/14/17 17:28) All Systems PM: A 10-system review of systems was performed and is negative for pertinent findings except as documented above in the HPI. - Constitutional Constitutional: no chills, no fever(s), no night sweats - EENT Eyes: no change in vision, no discharge, no pain, no photophobia Ears: no ear discharge, no ear pain, no tinnitus Nose, mouth and throat: no dysphagia, no nasal discharge, no neck pain, no sore throat - Cardiovascular Cardiovascular ROS IM: no chest pain, no diaphoresis, no dyspnea, no lightheadedness, no palpitations, no syncope - Respiratory Respiratory: no cough, no dyspnea, no wheezing, no excessive phlegm production - Gastrointestinal Gastrointestinal: abdominal pain, no diarrhea, no hematemesis, no hematochezia, no melena, no nausea, no vomiting - Musculoskeletal Musculoskeletal ROS IM: no numbness, no tingling Additional comments: right side pain - Integumentary Integumentary IM: no rash, no unusual bruising - Neurological Neurological ROS: no confusion, no convulsions, no focal weakness, no numbness, no tingling, no tremor(s) - Hematologic/Lymphatic Hematologic/Lymphatic: no easy bruising - Constitutional Vitals: Temp Pulse Resp BP Pulse Ox 99.5 F 120 20 170/108 98 03/27/17 09:38 03/27/17 14:00 03/27/17 15:33 03/27/17 15:33 03/27/17 14:00 General appearance: Present: mild distress, A&O X 3 - Head Head exam: Present: atraumatic, normocephalic - Eye Eye exam: Present: PERRL, conjuntiva pink, sclera anicteric Pupils: Present: PERRL - Neck Neck exam general surgery: Present: supple, trachea midline. Absent: lymphadenopathy - Respiratory Respiratory exam: Present: CTAB. Absent: accessory muscle use, rales, rhonchi, wheezes - Cardiovascular Cardiovascular exam: Present: +S1, +S2, tachycardia. Absent: diastolic murmur, gallop, rubs, systolic murmur - GI/Abdominal GI/Abdominal exam: Present: diminished bowel sounds, guarding, normal bowel sounds, soft, tenderness, no peritoneal signs. Absent: distended - Extremities Exam Extremities exam: Present: warm, radial pulses palpable and symetrical. Absent : calf tenderness, cyanotic, pedal edema - Neurological Exam Neurological exam: Present: CN II-XII intact, oriented X3, no focal deficits. Absent: pronater drift, facial droop, speech deficit - Psychiatric Psychiatric exam: Present: anxious - Skin Skin exam: Present: dry, intact Internal Med - H&P Results - Labs CBC & Chem 7: 03/27/17 10:08 03/27/17 10:08
[2017-03-27] MEDS ORDERED: Vancomycin 1,250 MG in D5% in Water 250 ML IVPB SCH (16:00)
[2017-03-27] MEDS ORDERED: Piperacillin/Tazobactam 3.375 GM in D5% in Water (Mini-Bag+) 100 ML IVPB SCH (18:00)
[2017-03-27] MEDS ORDERED: Thiamine (B-1) 100 MG, Folic Acid 1 MG, MVI, adult with vitamin K 10 ML in 0.9 % Sodi... IVPB SCH (18:00)
[2017-03-27] MEDS ORDERED: Ondansetron 4 MG/2 ML VIAL ONE (22:15)
[2017-03-27] MEDS ORDERED: Ondansetron 4 MG/2 ML VIAL IVP ONE (22:25)
[2017-03-27] MEDS ORDERED: Aminoglycoside Consult 1 EACH MC ONE (22:27)
[2017-03-27 22:46] VITALS: BP 128/81
[2017-03-28] MEDS ORDERED: *HR* LORazepam 2 MG/ML VIAL IVP SCH
--- NOTE | 2017-03-29 08:39 | Electrocardiograph Report ---
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
== END 2017-03-27 22:28 | disposition short-term general hospital (02) ==
LOC: EMEROO 09:35 → 2NNU 09:35
PROVIDERS: ADMIT Internal Medicine; ATTEND Family Medicine

== ENCOUNTER 2017-04-23 16:58 | Inpatient (IN) ==
[~2017-04-23 16:58] MED LIST: *HR* LORazepam 2 MG/ML VIAL IVP ONE
--- NOTE | 2017-04-23 17:03 | Emergency Department Note ---
Disposition Clinical Impression: Chest pain Qualifiers: Chest pain type: unspecified Qualified Code(s): R07.9 - Chest pain, unspecified Alcohol intoxication Qualifiers: Complication of substance-induced condition: uncomplicated Qualified Code(s): F10.920 - Alcohol use, unspecified with intoxication, uncomplicated Disposition: Admitted As Inpatient Condition: Fair Referrals: Unassigned,Provider [Non-Partnered Physician] - Forms: ED Satisfaction Letter Time of Disposition: 17:53 Chest Pain HPI - General Chief Complaint: ED Chest Pain Stated Complaint: chest pain Time Seen by Provider: 04/23/17 17:00 Source: patient, EMS Mode of arrival: EMS Limitations: altered mental status (Intoxicated) Vital Signs Reviewed: Yes Nursing Notes Reviewed: Yes - History of Present Illness HPI Narrative: 61-year-old who comes in complaining of chest pain that started yesterday. Patient states he has drank over a fifth of vodka today. Pt complaint: chest pain Onset (ago): day(s) Duration: constant (1) Onset: during rest Pain Location: substernal Severity: moderate Quality: tightness, aching Pain Radiation: none Improves with: nothing Worsens with: nothing Context: recent illness Treatments prior to arrival chest pain: none - Related Data Home Medications Medication Instructions Recorded Confirmed Albuterol Sulfate [Proair Hfa] 2 puff IH Q6H PRN 12/21/16 03/27/17 Gabapentin [Neurontin] 600 mg PO TID 12/21/16 03/27/17 Quetiapine Fumarate [Seroquel] 300 mg PO HS 12/21/16 03/27/17 SUMAtriptan [Imitrex] 6 mg SQ AD PRN 12/21/16 03/27/17 Lipase/Protease/Amylase [Creon Dr 3 cap PO TIDWM 03/15/17 03/27/17 12,000 Units Capsule] Omeprazole [PriLOSEC] 20 mg PO DAILY 03/15/17 03/27/17 Amitriptyline HCl 75 mg PO HS 03/27/17 03/27/17 Amlodipine Besylate 10 mg PO DAILY 03/27/17 03/27/17 Budesonide/Formoterol 160/4.5 1 puff IH BIDR 03/27/17 03/27/17 [Symbicort 160/4.5] Cyanocobalamin (Vitamin B-12) 500 mcg PO DAILY 03/27/17 03/27/17 [Vitamin B-12] Desonide [Tridesilon] 1 appl TP BID PRN 03/27/17 03/27/17 Divalproex (24 HR) [Depakote ER 1,250 mg PO HS 03/27/17 03/27/17 (24 HR)] Folic Acid 2 mg PO DAILY 03/27/17 03/27/17 Hydrocortisone 1% CREAM [Cortaid] 1 appl TP BID PRN 03/27/17 03/27/17 Ketoconazole Shampoo [Nizoral 1 appl TP 3XW 03/27/17 03/27/17 Shampoo] Magnesium Oxide [Mag-Ox] 400 mg PO BID 03/27/17 03/27/17 Propylene Glycol/Peg 400 [Systane 1 drop BOTH EYES QID 03/27/17 03/27/17 0.3-0.4% Eye Drops] Thiamine (B-1) [Vitamin B-1] 100 mg PO BID 03/27/17 03/27/17 traZODone [TraZODone] 50 mg PO TID 03/27/17 03/27/17 Allergies Allergy/AdvReac Type Severity Reaction Status Date / Time Buspirone [From BuSpar] AdvReac See Verified 03/27/17 16:46 Comments tramadol AdvReac See Verified 03/27/17 16:46 Comments Constitutional: Denies: fever, chills, weakness, weight change Eyes: Denies: eye pain, eye discharge, vision change ENT ED: Denies: ear pain, throat pain, dental pain, hearing loss, epistaxis, congestion, dysphagia Cardiovascular: Reports: chest pain. Denies: palpitations, dyspnea on exertion , edema, syncope Respiratory: Denies: cough, dyspnea, wheezes, hemoptysis, stridor Gastrointestinal: Denies: abdominal pain, nausea, vomiting, diarrhea, constipation, hematemesis, melena, hematochezia Genitourinary: Denies: urgency, dysuria, frequency, hematuria Musculoskeletal: Denies: back pain, neck pain, arthralgia, myalgia Integumentary: Denies: rash, abrasion, lesions Neurological: Denies: headache, weakness, numbness, paresthesias, confusion, abnormal gait, vertigo Psychiatric: Denies: anxiety, depression, suicidal thoughts, homicidal thoughts , auditory hallucinations, visual hallucinations Endocrine: Denies: fatigue Hematological/Lymphatic: Denies: easy bleeding, easy bruising Allergic/Immunologic: Denies: facial swelling, urticaria Chest Pain PMH - Past Medical History Medical history: Reports: COPD, CVA, GERD, hypertension, migraine, myocardial infarction, other Surgical history: Reports: appendectomy, cholecystectomy, other Psychiatric history: Reports: anxiety, bipolar, depression, schizophrenia, previous psychiatric hospitalization, other - Social History Smoking Status: Current every day smoker Alcohol use: Reports: heavy Drug use: Reports: none Physical Exam - General Limitations: no limitations General appearance: alert, in no apparent distress - Head Head exam: atraumatic, normocephalic, normal inspection - Eye Eye exam: Present: normal appearance, PERRL, EOMI - ENT ENT exam: normal exam, normal oropharynx, mucous membranes moist - Neck Neck exam: Present: normal inspection - Chest Chest inspection: Present: normal inspection, symmetric chest wall rise - Respiratory Respiratory exam: Present: normal lung sounds bilaterally - Cardiovascular Cardiovascular exam: Present: regular rate, normal rhythm, normal heart sounds - Extremities Exam Extremities exam: Present: normal inspection, full ROM. Absent: tenderness, pedal edema - Expanded Lower Extremity Exam Neurovascular/Tendon exam: Absent: motor deficit, sensory deficit, tendon deficit Gait: observed and normal - Back Exam Back exam: Present: normal inspection, full ROM. Absent: tenderness - Neurological Exam Neurological exam: Present: alert, oriented X3 - Psychiatric Psychiatric exam: Present: normal affect, normal mood - Skin Skin exam: Present: warm, dry, intact, normal color Course - Reevaluation(s) Reevaluation #1: 61-year-old with complaints of chest pain. Workup included a negative troponin nonspecific changes on EKG. Patient was found to have an alcohol level CCCXX. He is a slight elevation in his lipase which may indicate he is developing pancreatitis. Patient did have an episode of pancreatitis 4 years ago. Patient will be admitted for further evaluation and treatment. Time: 18:36 - Consultations Consultation #1: Discussed with Dr. Rodriguez, admit. Time: 18:36 Vital Signs Temperature 98.2 F 04/23/17 17:01 Pulse Rate 114 04/23/17 17:01 Respiratory Rate 16 04/23/17 17:01 Blood Pressure 128/96 04/23/17 17:01 O2 Sat by Pulse Oximetry 93 04/23/17 17:01 Temperature 98.2 F 04/23/17 17:01 Pulse Rate 102 04/23/17 18:24 Respiratory Rate 20 04/23/17 18:24 Blood Pressure 119/86 04/23/17 18:24 O2 Sat by Pulse Oximetry 99 04/23/17 18:24 Oxygen Delivery Oxygen Delivery Nasal Cannula Chest Pain - Lab Data Lab results reviewed: Yes I reviewed the patient's lab results. Result diagrams: 04/23/17 17:21 04/23/17 17:21 Lab Results 04/23/17 04/23/17 04/23/17 Range/Units 17:21 17:21 17:21 WBC 9.0 (4.3-11.1) K/mcL RBC 5.53 H (4.19-5.50) M/mcL Hgb 14.6 (12.9-16.9) g/dL Hct 45.4 (37.5-50.1) % MCV 82.1 L (83.0-100.0) fL MCH 26.4 L (28.0-33.3) pg MCHC 32.2 (31.6-35.5) g/dL RDW 18.0 H (11.5-14.5) % Plt Count 126 L (140-400) K/mcL MPV 9.8 (9.4-12.4) fL Immature Gran % 0.2 (0-4) % Seg Neutrophils % 42.1 % Lymphocytes % 50.4 % Monocytes % 6.7 % Eosinophils % 0.4 % Basophils % 0.2 % Neutrophils # 3.8 (1.6-8.9) K/mcL Lymphocytes # 4.5 (0.6-4.6) K/mcL Monocytes # 0.6 (0.0-1.3) K/mcL Eosinophils # 0.0 (0.0-0.6) K/mcL Basophils # 0.0 (0.0-0.2) K/mcL PT 11.0 (9.4-12.1) Seconds INR 1.0 APTT 32.4 (26.0-36.0) Seconds Sodium 137 (136-145) mEq/L Potassium 2.9 L (3.5-4.5) mEq/L Chloride 95 L (98-109) mEq/L Carbon Dioxide 25 (19-29) mEq/L BUN 10 (8-26) mg/dL Creatinine 0.99 (0.72-1.25) mg/dL Est GFR ( Amer) > 60 (> 60) Est GFR (Non-Af Amer) > 60 (> 60) BUN/Creatinine Ratio 10 (6-26) Glucose 103 H (70-99) mg/dL Calculated Osmolality 283 (280-300) Calcium 9.5 (8.6-10.8) mg/dL Troponin I (0-0.03) ng/mL Amylase 94 (25-125) Units/L Lipase 121 H (8-78) Units/L Ethyl Alcohol 320 H (0-10) mg/dL 04/23/17 Range/Units 17:21 WBC (4.3-11.1) K/mcL RBC (4.19-5.50) M/mcL Hgb (12.9-16.9) g/dL Hct (37.5-50.1) % MCV (83.0-100.0) fL MCH (28.0-33.3) pg MCHC (31.6-35.5) g/dL RDW (11.5-14.5) % Plt Count (140-400) K/mcL MPV (9.4-12.4) fL Immature Gran % (0-4) % Seg Neutrophils % % Lymphocytes % % Monocytes % % Eosinophils % % Basophils % % Neutrophils # (1.6-8.9) K/mcL Lymphocytes # (0.6-4.6) K/mcL Monocytes # (0.0-1.3) K/mcL Eosinophils # (0.0-0.6) K/mcL Basophils # (0.0-0.2) K/mcL PT (9.4-12.1) Seconds INR APTT (26.0-36.0) Seconds Sodium (136-145) mEq/L Potassium (3.5-4.5) mEq/L Chloride (98-109) mEq/L Carbon Dioxide (19-29) mEq/L BUN (8-26) mg/dL Creatinine (0.72-1.25) mg/dL Est GFR ( Amer) (> 60) Est GFR (Non-Af Amer) (> 60) BUN/Creatinine Ratio (6-26) Glucose (70-99) mg/dL Calculated Osmolality (280-300) Calcium (8.6-10.8) mg/dL Troponin I 0.01 (0-0.03) ng/mL Amylase (25-125) Units/L Lipase (8-78) Units/L Ethyl Alcohol (0-10) mg/dL - Radiology Data Radiology results reviewed: Yes I reviewed the patient's radiology results. Chest X-Ray 04/23/17 17:01 IMPRESSION: Blunting of the right costophrenic angle may reflect pleural thickening versus small pleural effusion. D/ / 04/23/2017 17:20:00 Norm Ly MD / [facility] Interpreting Provider: Norm Ly MD - EKG Data EKG attestation: Yes I reviewed and interpreted this EKG. EKG shows normal: sinus rhythm Rate: normal Rhythm: NSR Interpretation: nonspecific ST-T wave changes Heart Score - Score History: Slightly Suspicious EKG: Non Specific repolarisation Disturbance Age: 45-65 Risk Factors: Equal/Greater than 3 risk factor or history of atherosclerotic disease Troponin: Less than normal limit HEART Score Total: 4
[2017-04-23 17:31] LABS: Basophils % 0.2 %; Eosinophils % 0.4 %; Hematocrit 45.4 % (37.5-50.1); Hemoglobin 14.6 g/dL (12.9-16.9); Immature Granulocytes % 0.2 % (0-4); Lymphocytes # 4.5 K/mcL (0.6-4.6); Lymphocytes % 50.4 %; Mean Corpuscular HGB Conc 32.2 g/dL (31.6-35.5); Mean Corpuscular Hemoglobin 26.4 pg (28.0-33.3); Mean Corpuscular Volume 82.1 fL (83.0-100.0); Mean Platelet Volume 9.8 fL (9.4-12.4); Monocytes # 0.6 K/mcL (0.0-1.3); Monocytes % 6.7 %; Neutrophils # 3.8 K/mcL (1.6-8.9); Platelet Count 126 K/mcL (140-400); Red Blood Count 5.53 M/mcL (4.19-5.50); Segmented Neutrophils % 42.1 %
[2017-04-23 17:41] LABS: Activated Partial Thrombo Time 32.4 Seconds (26.0-36.0)
[2017-04-23 17:45] LABS: Amylase 94 Units/L (25-125); BUN/Creatinine Ratio 10 (6-26); Blood Urea Nitrogen 10 mg/dL (8-26); Calcium 9.5 mg/dL (8.6-10.8); Carbon Dioxide 25 mEq/L (19-29); Chloride 95 mEq/L (98-109); Ethanol 320 mg/dL (0-10); Glucose 103 mg/dL (70-99); Lipase 121 Units/L (8-78); Osmolality,Calculated 283 (280-300); Potassium 2.9 mEq/L (3.5-4.5); Sodium 137 mEq/L (136-145); eGFR For African Americans > 60 (> 60); eGFR For Non-African Americans > 60 (> 60)
[2017-04-23] MEDS ORDERED: Potassium Chloride Elixir 20 MEQ/15 ML UDC PO ONE (19:54)
[2017-04-23] MEDS: Magnesium Sulfate 2 GM in D5% in Water 100 ML IVPB SCH ×2 (21:06→22:47)
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
[2017-04-23] MEDS ORDERED: *HR* LORazepam 2 MG/ML VIAL IVP PRN (22:15)
[2017-04-23] MEDS ORDERED: Naloxone 0.4 MG/ML INJ IVP PRN (22:15)
[2017-04-23] MEDS ORDERED: *HR* OxyCODONE Immed Rel 5 MG TABLET PO ONE (22:53)
[2017-04-24] MEDS ORDERED: *HR* Adenosine 6 MG/2 ML VIAL IVP ONE ×2 (01:29→01:31)
[2017-04-24] MEDS ORDERED: *HR* Metoprolol 5 MG/5 ML VIAL IVP ONE ×2 (01:36→01:40)
[2017-04-24] MEDS ORDERED: 0.9 % Sodium Chloride 1,000 ML IVC ONE (01:45)
[2017-04-24] MEDS ORDERED: 0.9 % Sodium Chloride 500 ML IVC ONE ×3 (03:16→06:17)
[2017-04-24] MEDS ORDERED: 0.9 % Sodium Chloride 500 ML ONE (03:17)
[2017-04-24] MEDS ORDERED: Amiodarone Premix 360 MG/200 ML BAG IVC ONE (03:30)
[2017-04-24] MEDS ORDERED: Amiodarone Premix 150 MG/100 ML BAG IVPB ONE (03:39)
--- NOTE | 2017-04-24 03:53 | Event Note ---
<Jameson Chaney - Last Filed: 04/24/17 03:43> Date of Encounter: 04/24/17 Time of Encounter: 01:30 Rapid response called at 1:21 AM on Louisa olvera in room 2A51. Upon arrival to the room Mr. olvera was laying supine in his patient bed with bedside heart monitor exhibiting a heart rate of 169. Nursing staff had an EKG ready at the time of evaluation which demonstrated narrow complex tachycardic rhythm that appeared to be irregular. Crash cart was brought to the patient room the patient was placed on the monitor and pads were placed on the patient. The patient was alert and interactive, blood pressure at the time of initial evaluation was roughly 101 systolically. The patient at baseline is intoxicated and already poorly responsive. 6 mg of amiodarone was administered with slowing of the patient's heart rate demonstrating an underlying rhythm of atrial flutter. The patient was admitted in normal sinus rhythm. After the adenosine administration the patient's heart rate return to 170-212. The patient's systolic blood pressure decreased to the low 90s. The patient is provided 2 mg Ativan and 100 J synchronized shock was applied. The rhythm remained rapid and irregular around 169. 5 mg of Lopressor was administered without any improvement in the patient's heart rate. Following the patient was given 825 mg bolus of Cardizem which improved his heart rate to roughly 140- 150. The patient only had 1 IV access and his blood pressure was hypotensive after the administration of Cardizem. The patient was placed in Trendelenburg and IV access was obtained in his right lower extremity. He was placed on a Cardizem drip and at the same time given a bolus of normal saline. The patient' s heart rate improved to the low 100s. He was transferred to ICU stepdown for further more intensive monitoring and care. Patient was on a Cardizem drip and became hypotensive. Cardiology was consulted and recommended switching to amiodarone drip. Dr. Raghav Cartagena (attending physician) was present during the entirety of the rapid response. <Raghav Cartagena - Last Filed: 04/24/17 04:30> Date of Encounter: 04/24/17
[2017-04-24 04:32] LABS: Alanine Aminotransferase 36 Units/L (0-55); Albumin 3.1 g/dL (3.5-5.0); Albumin/Globulin Ratio 0.8 (1.1-2.2); Alkaline Phosphatase 153 Units/L (38-126); Aspartate Amino Transferase 86 Units/L (5-34); BUN/Creatinine Ratio 13 (6-26); Bilirubin,Total 0.6 mg/dL (0.2-1.2); Blood Urea Nitrogen 11 mg/dL (8-26); Calcium 8.1 mg/dL (8.6-10.8); Carbon Dioxide 20 mEq/L (19-29); Chloride 103 mEq/L (98-109); Chol/HDL Ratio 2.5 (0-4.9); Cholesterol 172 mg/dL (< 200); Globulin 3.9 g/dL (2.4-3.5); Glucose 98 mg/dL (70-99); HDL Cholesterol 70 mg/dL (40-59); LDL Cholesterol,Calculated 71 mg/dL (0-99); Magnesium 2.4 mg/dL (1.6-2.6); Osmolality,Calculated 281 (280-300); Phosphorous 3.1 mg/dL (2.3-4.7); Potassium 3.4 mEq/L (3.5-4.5); Sodium 136 mEq/L (136-145); Triglycerides 154 mg/dL (< 150); eGFR For African Americans > 60 (> 60); eGFR For Non-African Americans > 60 (> 60)
[2017-04-24 05:18] LABS: Basophils % 0.4 %; Eosinophils # 0.1 K/mcL (0.0-0.6); Eosinophils % 1.1 %; Hematocrit 37.7 % (37.5-50.1); Hemoglobin 12.2 g/dL (12.9-16.9); Immature Granulocytes % 1.3 % (0-4); Immature Platelets 4.8 % (1.1-6.1); Lymphocytes # 1.4 K/mcL (0.6-4.6); Lymphocytes % 30.8 %; Mean Corpuscular HGB Conc 32.4 g/dL (31.6-35.5); Mean Corpuscular Hemoglobin 26.9 pg (28.0-33.3); Mean Platelet Volume 9.8 fL (9.4-12.4); Monocytes # 0.3 K/mcL (0.0-1.3); Monocytes % 7.5 %; Neutrophils # 2.7 K/mcL (1.6-8.9); Nucleated Red Blood Cells 0.4 /100 WBC (0); Red Blood Count 4.54 M/mcL (4.19-5.50); Red Cell Distribution Width 17.6 % (11.5-14.5); Segmented Neutrophils % 58.9 %
[2017-04-24 05:20] LABS: Platelet Count 69 K/mcL (140-400)
[2017-04-24] MEDS ORDERED: *HR* Heparin 5,000 UNIT/ML VIAL SQ SCH (06:00)
[2017-04-24] MEDS ORDERED: *HR* LORazepam 2 MG/ML VIAL IVP PRN (09:51)
[2017-04-24] MEDS ORDERED: Thiamine (B-1) 100 MG TABLET PO SCH (10:00)
[2017-04-24] MEDS ORDERED: Folic Acid 1 MG TABLET PO SCH (10:00)
[2017-04-24] MEDS: *HR* LORazepam 2 MG/ML VIAL IVP PRN ×4 (10:12→19:38)
[2017-04-24] MEDS: 0.9 % Sodium Chloride 1,000 ML IVC SCH ×4 (10:30→19:25)
[2017-04-24] MEDS: Amiodarone Premix 360 MG/200 ML BAG IVC SCH ×2 (10:31→21:41)
[2017-04-24] MEDS: Budesonide/Formoterol 160/4.5 MDI IH SCH ×2 (10:57→22:08)
[2017-04-24] MEDS: Thiamine (B-1) 100 MG TABLET PO SCH ×2 (11:22→21:38)
[2017-04-24] MEDS: Folic Acid 1 MG TABLET PO SCH (11:22)
[2017-04-24] MEDS: Nicotine 14 MG PATCH.TD24 TD SCH (11:22)
[2017-04-24] MEDS: traZODone 50 MG TABLET PO SCH ×3 (11:22→21:38)
[2017-04-24] MEDS: Vitamin B Complex/Vit C/Vit E 1 EACH TABLET PO SCH (11:23)
[2017-04-24] MEDS ORDERED: Potassium Chloride 40 MEQ, Lidocaine 1% 2 ML in D5% in Water 500 ML IVPB ONE (11:57)
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
[2017-04-24] MEDS ORDERED: *HR* LORazepam 2 MG/ML VIAL IVP ONE (12:34)
[2017-04-24] MEDS ORDERED: *HR* Adenosine 6 MG/2 ML SYRINGE IVP ONE (12:35)
[2017-04-24] MEDS ORDERED: *HR* Adenosine 12 MG/4 ML VIAL IV ONE (12:35)
[2017-04-24] MEDS: Ibuprofen 400 MG TABLET PO PRN (13:03)
[2017-04-24] MEDS: Pantoprazole 40 MG VIAL IVP SCH (13:04)
[2017-04-24] MEDS ORDERED: *HR* Heparin 5,000 UNIT/ML VIAL IVP PRN ×2 (13:21)
[2017-04-24] MEDS ORDERED: Heparin 25,000 UNIT/500 ML D5W 25,000 UNIT/500 ML MLS IVC SCH (13:30)
[2017-04-24] MEDS ORDERED: Dextrose Gel 15 GM PO PRN ×2 (14:42)
[2017-04-24] MEDS ORDERED: *HR* Dextrose 50 % in Water (Syg) 50 ML SYRINGE IVP PRN (14:42)
[2017-04-24] MEDS ORDERED: D5% in Water 1,000 ML IVC PRN (14:42)
[2017-04-24] MEDS: *HR* HYDROcodone/Acet 5/325 mg TABLET PO PRN ×2 (15:15→21:38)
--- NOTE | 2017-04-24 17:36 | Electrocardiograph Report ---
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
--- NOTE | 2017-04-24 19:21 | Electrocardiograph Report ---
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
[2017-04-24] MEDS: Divalproex (24 HR) 250 MG TABLET PO SCH (21:37)
[2017-04-25] MEDS: *HR* LORazepam 2 MG/ML VIAL IVP PRN ×4 (01:02→21:01)
[2017-04-25] MEDS: 0.9 % Sodium Chloride 1,000 ML IVC SCH ×2 (01:30→09:22)
[2017-04-25 04:37] LABS: Hemoglobin 10.9 g/dL (12.9-16.9); Immature Granulocytes % 0.3 % (0-4)
[2017-04-25 04:39] LABS: Eosinophils # 0.1 K/mcL (0.0-0.6); Eosinophils % 1.4 %; Hematocrit 34.7 % (37.5-50.1); Immature Platelets 4.3 % (1.1-6.1); Lymphocytes # 1.2 K/mcL (0.6-4.6); Lymphocytes % 31.9 %; Mean Corpuscular HGB Conc 31.4 g/dL (31.6-35.5); Mean Corpuscular Hemoglobin 27.3 pg (28.0-33.3); Mean Corpuscular Volume 86.8 fL (83.0-100.0); Mean Platelet Volume 11.5 fL (9.4-12.4); Monocytes # 0.1 K/mcL (0.0-1.3); Monocytes % 3.3 %; Neutrophils # 2.3 K/mcL (1.6-8.9); Red Cell Distribution Width 17.3 % (11.5-14.5); Segmented Neutrophils % 63.1 %
[2017-04-25 04:45] LABS: Platelet Count 49 K/mcL (140-400)
[2017-04-25 04:56] LABS: Alanine Aminotransferase 25 Units/L (0-55); Albumin 2.7 g/dL (3.5-5.0); Albumin/Globulin Ratio 0.8 (1.1-2.2); Alkaline Phosphatase 127 Units/L (38-126); Amylase 41 Units/L (25-125); Aspartate Amino Transferase 44 Units/L (5-34); BUN/Creatinine Ratio 13 (6-26); Bilirubin,Total 0.5 mg/dL (0.2-1.2); Blood Urea Nitrogen 10 mg/dL (8-26); Calcium 7.8 mg/dL (8.6-10.8); Carbon Dioxide 24 mEq/L (19-29); Chloride 110 mEq/L (98-109); Globulin 3.4 g/dL (2.4-3.5); Glucose 111 mg/dL (70-99); Lipase 61 Units/L (8-78); Magnesium 1.4 mg/dL (1.6-2.6); Osmolality,Calculated 290 (280-300); Potassium 3.6 mEq/L (3.5-4.5); Sodium 140 mEq/L (136-145); Total Protein 6.1 g/dL (6.0-8.3); eGFR For African Americans > 60 (> 60); eGFR For Non-African Americans > 60 (> 60)
[2017-04-25] MEDS ORDERED: Magnesium Sulfate 2 GM in D5% in Water 100 ML IVPB ONE ×2 (08:15→09:01)
[2017-04-25] MEDS: Budesonide/Formoterol 160/4.5 MDI IH SCH ×2 (08:43→22:11)
--- NOTE | 2017-04-25 08:54 | Cardiology Progress Note ---
Date of Encounter: 04/25/17 Time of Encounter: 07:40 Assessment and Plan (1) Atrial flutter with rapid ventricular response Current Visit: Yes Status: Acute Suspected new onset atrial fib/flutter with RVR in the setting of ETOH withdraw. ECG from RR reviewed with EP--fib/flutter. Episodes of afib/flutter with RVR noted throughout telemetry review. Will replace Mag today, recommend Mag >2.0, K >4.0 Rate remains poorly controlled--continue to increase cardizem gtt as BP will tolerate, continue amiodarone gtt. BP improved; unable to utilize betablocker therapy d/t polysubstance abuse including cocaine. Increase cardizem gtt to keep HR less than 100 as BP will tolerate. Reports reproducible chest wall/rib pain; anticipate difficulty to control rate with pain and also ETOH withdraw. CHA2Ds Vasc= 1 (HTN). He is a poor candidate for full anticoagulation given ETOH abuse (Fifth vodka every day). Continue asa only for CVA prevention. Will not start AC as inpatient due to acute thrombocytopenia--PLT continue to downtrend, 40's today 126 upon admission). Will defer further work-up to primary service. (2) Alcohol withdrawal Current Visit: Yes Status: Acute CIWA protocol. Defer further mgmt per primary service. Qualifiers: Complication of substance-induced condition: uncomplicated Qualified Code(s ): F10.230 - Alcohol dependence with withdrawal, uncomplicated (3) Chest pain Current Visit: Yes Status: Acute Atypical chest pain; likely musculoskeletal in etiology as pain is reproducible. No ischemic ECG changes upon admission. No further inpatient testing from Cardiology standpoint recommended at this time. Qualifiers: Chest pain type: chest pain on breathing Qualified Code(s): R07.1 - Chest pain on breathing Discussion w patient/family: The assessment and plan as outlined above was discussed with the patient and/or family members who expressed understanding and agreement. All questions were answered. Thank you for involving us in the care of your patient. Please call with any questions. The patient will be discussed and reviewed with Dr. Parra; changes to be made accordingly. Subjective Principal diagnosis: Afib/flutter Interval history: Seen and examined. Continues to have reproducible chest wall tenderness and weakness. Objective Vital Signs, Last 4 Hours Temp Pulse Resp BP Pulse Ox 04/25/17 08:33 98.0 F 120 16 114/90 95 04/25/17 08:00 125 04/25/17 05:00 125 103/76 General: Conversant, Other (disoriented this AM upon exam) HEENT: Atraumatic, Normocephaly Cardiac: Other (irregularly irregular) Lungs: Normal Breath Sounds Neuro: Alert and responsive Abdomen: Soft Skin: No rashes noted on visualized skin Musculoskeletal: Other (chest wall tenderness) Extremities: No Edema, Normal Pulses Results 04/25/17 03:45 04/25/17 03:45 Lab Results 04/24/17 04/25/17 04/25/17 13:25 03:45 03:45 WBC 3.6 L Hgb 10.9 L Hct 34.7 L Plt Count 49 L Sodium 140 Potassium 3.6 Chloride 110 H Carbon Dioxide 24 BUN 10 Creatinine 0.75 Glucose 111 H Calcium 7.8 L Magnesium 1.4 L Total Bilirubin 0.5 AST 44 H ALT 25 Alkaline Phosphatase 127 H Troponin I 0.02 Amylase 41 Lipase 61 - Imaging and Cardiology Echo: report reviewed Other Results: 12 hour tele: avg ML=122 afib/flutter - EKG Interpretation EKG results cardiology: personally reviewed Consult Discharge Plan - Plan Referrals: Terence Barahona MD [Non-Partnered Physician] - 05/06/17 10:00 am (PLEASE SHOW UP 30 MINS EARLY, TAKE PICTURE ID, INSURANCE CARDS, ALL MEDS IN THE BOTTLES. TAKE YOUR DISCHARGE INFORMATION WITH YOU TO YOUR APPOINTMENT. PLEASE TAKE YOUR NEW PATIENT PACKET WITH YOU FILLED OUT TO YOUR APPOINTMENT. THE PACKET WILL BE SENT IN THE MAIL. IF YOU HAVE TO CANCEL PLEASE CALL WITHIN 24 HOURS OF YOUR APPOINTMENT AT [phone]. THIS IS A NEW PATIENT VISIT)
[2017-04-25] MEDS ORDERED: Potassium Chloride 40 MEQ, Lidocaine 1% 2 ML in D5% in Water 500 ML IVPB ONE (09:01)
[2017-04-25] MEDS: Pantoprazole 40 MG VIAL IVP SCH (09:22)
[2017-04-25] MEDS: Amiodarone Premix 360 MG/200 ML BAG IVC SCH ×2 (09:22→21:01)
[2017-04-25] MEDS: Vitamin B Complex/Vit C/Vit E 1 EACH TABLET PO SCH (09:23)
[2017-04-25] MEDS: Folic Acid 1 MG TABLET PO SCH (09:23)
[2017-04-25] MEDS: Thiamine (B-1) 100 MG TABLET PO SCH ×2 (09:23→20:32)
[2017-04-25] MEDS: traZODone 50 MG TABLET PO SCH ×3 (09:23→20:33)
[2017-04-25] MEDS: Nicotine 14 MG PATCH.TD24 TD SCH (09:24)
[2017-04-25] MEDS ORDERED: *HR* Metoprolol 5 MG/5 ML VIAL IVP PRN (09:51)
[2017-04-25] MEDS: *HR* HYDROcodone/Acet 5/325 mg TABLET PO PRN ×2 (12:18→18:43)
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
[2017-04-25] MEDS: Ondansetron ODT 4 MG TAB.RAPDIS SL PRN (15:57)
[2017-04-25] MEDS: Ibuprofen 400 MG TABLET PO PRN (15:57)
[2017-04-25] MEDS: Menthol 9.1 MG LOZENGE PO PRN (15:57)
[2017-04-25] MEDS: Divalproex (24 HR) 250 MG TABLET PO SCH (20:32)
[2017-04-26] MEDS: 0.9 % Sodium Chloride 1,000 ML IVC SCH (04:25)
[2017-04-26 04:58] LABS: Basophils % 0.2 %; Eosinophils # 0.1 K/mcL (0.0-0.6); Eosinophils % 1.8 %; Hematocrit 36.6 % (37.5-50.1); Hemoglobin 11.2 g/dL (12.9-16.9); Immature Granulocytes % 0.4 % (0-4); Immature Platelets 5.9 % (1.1-6.1); Lymphocytes # 1.1 K/mcL (0.6-4.6); Lymphocytes % 23.8 %; Mean Corpuscular HGB Conc 30.6 g/dL (31.6-35.5); Mean Corpuscular Hemoglobin 26.9 pg (28.0-33.3); Mean Corpuscular Volume 87.8 fL (83.0-100.0); Mean Platelet Volume 11.3 fL (9.4-12.4); Monocytes # 0.2 K/mcL (0.0-1.3); Monocytes % 4.7 %; Neutrophils # 3.1 K/mcL (1.6-8.9); Red Blood Count 4.17 M/mcL (4.19-5.50); Red Cell Distribution Width 17.8 % (11.5-14.5); Segmented Neutrophils % 69.1 %
[2017-04-26 05:00] LABS: Platelet Count 55 K/mcL (140-400)
[2017-04-26 05:10] LABS: Alanine Aminotransferase 28 Units/L (0-55); Albumin 2.7 g/dL (3.5-5.0); Albumin/Globulin Ratio 0.7 (1.1-2.2); Alkaline Phosphatase 132 Units/L (38-126); Aspartate Amino Transferase 57 Units/L (5-34); BUN/Creatinine Ratio 9 (6-26); Bilirubin,Total 0.4 mg/dL (0.2-1.2); Blood Urea Nitrogen 7 mg/dL (8-26); Calcium 8.5 mg/dL (8.6-10.8); Carbon Dioxide 26 mEq/L (19-29); Chloride 109 mEq/L (98-109); Globulin 3.9 g/dL (2.4-3.5); Glucose 92 mg/dL (70-99); Magnesium 1.7 mg/dL (1.6-2.6); Osmolality,Calculated 284 (280-300); Sodium 138 mEq/L (136-145); Total Protein 6.6 g/dL (6.0-8.3); eGFR For African Americans > 60 (> 60); eGFR For Non-African Americans > 60 (> 60)
[2017-04-26 05:12] LABS: Potassium 4.2 mEq/L (3.5-4.5)
[2017-04-26] MEDS: traZODone 50 MG TABLET PO SCH ×3 (07:45→20:46)
[2017-04-26] MEDS: Pantoprazole 40 MG VIAL IVP SCH (07:45)
[2017-04-26] MEDS: Thiamine (B-1) 100 MG TABLET PO SCH ×2 (07:45→20:46)
[2017-04-26] MEDS: Nicotine 14 MG PATCH.TD24 TD SCH (07:45)
[2017-04-26] MEDS: Vitamin B Complex/Vit C/Vit E 1 EACH TABLET PO SCH (07:45)
[2017-04-26] MEDS: Folic Acid 1 MG TABLET PO SCH (07:45)
[2017-04-26] MEDS: *HR* HYDROcodone/Acet 5/325 mg TABLET PO PRN ×3 (07:48→20:46)
[2017-04-26] MEDS: Menthol 9.1 MG LOZENGE PO PRN (07:49)
[2017-04-26] MEDS: Amiodarone Premix 360 MG/200 ML BAG IVC SCH (09:03)
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
[2017-04-26] MEDS: Budesonide/Formoterol 160/4.5 MDI IH SCH ×2 (10:39→23:21)
--- NOTE | 2017-04-26 11:09 | Cardiology Progress Note ---
Date of Encounter: 04/26/17 Time of Encounter: 10:20 Assessment and Plan (1) Atrial flutter with rapid ventricular response Current Visit: Yes Status: Acute Suspected new onset atrial fib/flutter with RVR in the setting of polysubstance/ ETOH withdraw. ECG from RR reviewed with EP--fib/flutter. Recommend Mag >2.0, K >4.0. Patient now in SR--stop IV amiodarone gtt and will IV cardizem gtt and change to oral. Unable to utilize betablocker therapy d/t polysubstance abuse including cocaine. Reports reproducible chest wall/rib pain. CHA2Ds Vasc= 1 (HTN). He is a poor candidate for full anticoagulation given ETOH abuse (Fifth vodka every day). Continue asa only for CVA prevention. Will not start AC as inpatient due to acute thrombocytopenia--PLT are stable today, 55 (126 upon admission). Will defer further work-up to primary service. No further inpatient recommendations from Cardiology standpoint. Continue supportive care as per IM. (2) Alcohol withdrawal Current Visit: Yes Status: Acute CIWA protocol. Defer further mgmt per primary service. Qualifiers: Complication of substance-induced condition: uncomplicated Qualified Code(s ): F10.230 - Alcohol dependence with withdrawal, uncomplicated (3) Chest pain Current Visit: Yes Status: Acute Atypical chest pain; likely musculoskeletal in etiology as pain is reproducible. No ischemic ECG changes upon admission. No further inpatient testing from Cardiology standpoint recommended at this time. Qualifiers: Chest pain type: chest pain on breathing Qualified Code(s): R07.1 - Chest pain on breathing Discussion w patient/family: The assessment and plan as outlined above was discussed with the patient and/or family members who expressed understanding and agreement. All questions were answered. Thank you for involving us in the care of your patient. Please call with any questions. The patient was discussed and reviewed with Dr. Parra; Cardiology will sign-off , please call with questions. Subjective Principal diagnosis: Afib/flutter Interval history: Seen and examined. Continues to be confused/disoriented at times. Appears more comfortable today. Continues to have reproducible chest wall tenderness and weakness. Objective Vital Signs, Last 4 Hours Pulse Resp BP Pulse Ox 04/26/17 10:41 18 96 04/26/17 09:00 92 114/78 04/26/17 08:00 88 107/84 04/26/17 07:55 106 General: Conversant, No Apparent Distress HEENT: Atraumatic, Normocephaly, Mucus Membranes Moist Cardiac: Reg Rate and Rhythm, Normal S1 and S2 Lungs: Normal Breath Sounds Neuro: Alert and responsive Abdomen: Soft Skin: No rashes noted on visualized skin Musculoskeletal: No Chest Wall Tenderness Extremities: No Edema, Normal Pulses Results 04/26/17 04:45 04/26/17 04:45 Lab Results 04/26/17 04/26/17 04:45 04:45 WBC 4.5 Hgb 11.2 L Hct 36.6 L Plt Count 55 L Sodium 138 Potassium 4.2 Chloride 109 Carbon Dioxide 26 BUN 7 L Creatinine 0.79 Glucose 92 Calcium 8.5 L Magnesium 1.7 Total Bilirubin 0.4 AST 57 H ALT 28 Alkaline Phosphatase 132 H Active Medications Hydrocodone Bitart/Acetaminophen (Bybee 5-325 Mg) 1 tab PO Q6H PRN PRN Reason: PAIN 4-10 Stop: 10/24/17 14:41 Last Admin: 04/26/17 07:48 Dose: 1 tab Albuterol Sulfate (Albuterol Inhaler) 2 puff IH [id number] ERASMO Stop: 10/24/17 04:01 Last Admin: 04/26/17 10:39 Dose: 2 puff Amitriptyline HCl (Elavil) 75 mg PO HS [facility] Stop: 10/24/17 21:01 Last Admin: 04/25/17 20:33 Dose: 75 mg Lipase/Protease/Amylase (Creon Dr 6,000 Units Capsule) 2 each PO TIDWM [facility] Stop: 10/24/17 08:01 Last Admin: 04/26/17 11:10 Dose: 2 each Budesonide/Formoterol Fumarate (Symbicort) 1 puff IH BIDR ERASMO PRN Reason: Protocol Stop: 10/24/17 10:01 Last Admin: 04/26/17 10:39 Dose: 1 puff Dextrose/Water (Dextrose 50% (Syg)) 25 ml IVP AD PRN PRN Reason: Hypoglycemia Stop: 10/24/17 14:43 Diltiazem HCl (Cardizem Cd) 240 mg PO DAILY [facility] Stop: 10/26/17 11:16 Divalproex Sodium (Depakote Er (24 Hr)) 1,250 mg PO HS ERASMO Stop: 10/24/17 21:01 Last Admin: 04/25/17 20:32 Dose: 1,250 mg Docusate Sodium (Colace) 100 mg PO BID PRN PRN Reason: Constipation Stop: 10/23/17 22:16 Folic Acid (Folic Acid) 2 mg PO DAILY ERASMO Stop: 10/24/17 09:01 Last Admin: 04/26/17 07:45 Dose: 2 mg Glucagon (Glucagen) 1 mg IM ONCE PRN PRN Reason: Hypoglycemia Stop: 10/24/17 14:43 Glucose (Gluctose) 15 gm PO ONCE PRN PRN Reason: Hypoglycemia Stop: 10/24/17 14:43 Glucose (Gluctose) 30 gm PO ONCE PRN PRN Reason: Hypoglycemia Stop: 10/24/17 14:43 Dextrose (Dextrose 5%) 1,000 mls @ 100 mls/hr IVC .Q10H PRN PRN Reason: HYPOGLYCEMIA Stop: 10/24/17 14:43 Ibuprofen (Motrin) 400 mg PO Q6HR PRN PRN Reason: Mild Pain (1-3) Stop: 10/23/17 22:16 Last Admin: 04/25/17 15:57 Dose: 400 mg Lorazepam (Ativan) 1 mg IVP Q1H PRN PRN Reason: Alcohol Withdrawal Stop: 10/23/17 22:16 Last Admin: 04/26/17 11:10 Dose: 1 mg Lorazepam (Ativan) 4 mg IVP Q4HR PRN PRN Reason: CIWA Score of 22-45 Stop: 10/23/17 22:16 Last Admin: 04/24/17 13:10 Dose: 4 mg Lorazepam (Ativan) 2 mg IVP Q4HR PRN PRN Reason: CIWA Score of 10-21 Stop: 10/24/17 14:42 Last Admin: 04/25/17 18:46 Dose: 2 mg Menthol (Cough Drops) 9.1 mg PO Q2H PRN PRN Reason: Cough Stop: 10/25/17 15:36 Last Admin: 04/26/17 07:49 Dose: 9.1 mg Naloxone HCl (Narcan) 0.4 mg IVP Q2MIN PRN PRN Reason: Opioid Reversal Stop: 10/23/17 22:16 Nicotine (Nicoderm) 14 mg TD DAILY ERASMO PRN Reason: Protocol Stop: 10/24/17 09:01 Last Admin: 04/26/17 07:45 Dose: 14 mg Ondansetron HCl (Zofran Odt) 4 mg SL Q8HR PRN PRN Reason: Nausea And Vomiting Stop: 10/23/17 22:16 Last Admin: 04/25/17 15:57 Dose: 4 mg Pantoprazole Sodium (Protonix) 40 mg IVP DAILY ERASMO Stop: 10/24/17 12:16 Last Admin: 04/26/17 07:45 Dose: 40 mg Quetiapine Fumarate (Seroquel) 300 mg PO HS ERASMO PRN Reason: Protocol Stop: 10/23/17 22:31 Last Admin: 04/25/17 20:32 Dose: 300 mg Thiamine HCl (Vitamin B-1) 100 mg PO BID ERASMO Stop: 10/24/17 09:01 Last Admin: 04/26/17 07:45 Dose: 100 mg Trazodone HCl (Trazodone) 50 mg PO TID ERASMO Stop: 10/24/17 09:01 Last Admin: 04/26/17 07:45 Dose: 50 mg Vitamin B Complex/Vit C/Vit E (Stresstab) 1 each PO DAILY ERASMO Stop: 10/24/17 10:01 Last Admin: 04/26/17 07:45 Dose: 1 each - EKG Interpretation EKG results cardiology: personally reviewed Consult Discharge Plan - Plan Referrals: Terence Barahona MD [Non-Partnered Physician] - 05/06/17 10:00 am (PLEASE SHOW UP 30 MINS EARLY, TAKE PICTURE ID, INSURANCE CARDS, ALL MEDS IN THE BOTTLES. TAKE YOUR DISCHARGE INFORMATION WITH YOU TO YOUR APPOINTMENT. PLEASE TAKE YOUR NEW PATIENT PACKET WITH YOU FILLED OUT TO YOUR APPOINTMENT. THE PACKET WILL BE SENT IN THE MAIL. IF YOU HAVE TO CANCEL PLEASE CALL WITHIN 24 HOURS OF YOUR APPOINTMENT AT [phone]. THIS IS A NEW PATIENT VISIT)
[2017-04-26] MEDS: *HR* LORazepam 2 MG/ML VIAL IVP PRN ×3 (11:10→19:33)
[2017-04-26] MEDS: Diltiazem CD (24hr) 240 MG CAPSULE PO SCH (11:15)
[2017-04-26] MEDS: Divalproex (24 HR) 250 MG TABLET PO SCH (20:45)
[2017-04-27 04:47] LABS: Basophils % 0.1 %; Immature Granulocytes % 0.6 % (0-4); Mean Corpuscular HGB Conc 31.7 g/dL (31.6-35.5)
[2017-04-27 04:50] LABS: Eosinophils # 0.1 K/mcL (0.0-0.6); Eosinophils % 1.3 %; Hemoglobin 11.4 g/dL (12.9-16.9); Immature Platelets 5.8 % (1.1-6.1); Lymphocytes # 1.4 K/mcL (0.6-4.6); Mean Corpuscular Hemoglobin 27.5 pg (28.0-33.3); Mean Platelet Volume 11.1 fL (9.4-12.4); Monocytes # 0.5 K/mcL (0.0-1.3); Monocytes % 6.5 %; Neutrophils # 6.1 K/mcL (1.6-8.9); Red Blood Count 4.14 M/mcL (4.19-5.50); Red Cell Distribution Width 18.5 % (11.5-14.5); Segmented Neutrophils % 74.5 %
[2017-04-27 04:53] LABS: Platelet Count 63 K/mcL (140-400)
[2017-04-27 05:05] LABS: Alanine Aminotransferase 31 Units/L (0-55); Albumin 2.9 g/dL (3.5-5.0); Albumin/Globulin Ratio 0.7 (1.1-2.2); Alkaline Phosphatase 129 Units/L (38-126); Aspartate Amino Transferase 52 Units/L (5-34); BUN/Creatinine Ratio 8 (6-26); Blood Urea Nitrogen 6 mg/dL (8-26); Carbon Dioxide 23 mEq/L (19-29); Chloride 104 mEq/L (98-109); Globulin 4.3 g/dL (2.4-3.5); Glucose 81 mg/dL (70-99); Magnesium 1.7 mg/dL (1.6-2.6); Osmolality,Calculated 279 (280-300); Potassium 3.9 mEq/L (3.5-4.5); Sodium 136 mEq/L (136-145); Total Protein 7.2 g/dL (6.0-8.3); eGFR For African Americans > 60 (> 60); eGFR For Non-African Americans > 60 (> 60)
[2017-04-27 05:13] LABS: Bilirubin,Total 0.7 mg/dL (0.2-1.2)
[2017-04-27 05:45] LABS: Platelet Estimate Decreased (Normal); Reactive Lymphocytes Present (Not Present)
[2017-04-27] MEDS: *HR* LORazepam 2 MG/ML VIAL IVP PRN ×3 (08:31→22:02)
[2017-04-27] MEDS: traZODone 50 MG TABLET PO SCH ×3 (08:31→20:20)
[2017-04-27] MEDS: Vitamin B Complex/Vit C/Vit E 1 EACH TABLET PO SCH (08:31)
[2017-04-27] MEDS: Thiamine (B-1) 100 MG TABLET PO SCH ×2 (08:32→20:21)
[2017-04-27] MEDS: Pantoprazole 40 MG VIAL IVP SCH (08:32)
[2017-04-27] MEDS: Nicotine 14 MG PATCH.TD24 TD SCH (08:32)
[2017-04-27] MEDS: Diltiazem CD (24hr) 240 MG CAPSULE PO SCH (08:32)
[2017-04-27] MEDS: Folic Acid 1 MG TABLET PO SCH (08:32)
[2017-04-27] MEDS: Budesonide/Formoterol 160/4.5 MDI IH SCH ×2 (11:03→22:09)
[2017-04-27] MEDS: *HR* HYDROcodone/Acet 5/325 mg TABLET PO PRN ×2 (13:08→20:21)
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
[2017-04-27] MEDS: Divalproex (24 HR) 250 MG TABLET PO SCH (20:20)
[2017-04-27] MEDS: Ondansetron ODT 4 MG TAB.RAPDIS SL PRN (21:12)
[2017-04-27] MEDS ORDERED: Haloperidol Lactate 5 MG/ML VIAL IVP ONE (22:52)
[2017-04-27] MEDS ORDERED: *HR* LORazepam 2 MG/ML VIAL IVP ONE (22:53)
[2017-04-28 07:53] LABS: Hemoglobin 11.4 g/dL (12.9-16.9); Immature Platelets 5.1 % (1.1-6.1); Mean Corpuscular HGB Conc 30.8 g/dL (31.6-35.5); Mean Corpuscular Hemoglobin 26.6 pg (28.0-33.3); Mean Corpuscular Volume 86.4 fL (83.0-100.0); Mean Platelet Volume 10.1 fL (9.4-12.4); Platelet Count 82 K/mcL (140-400); Red Blood Count 4.28 M/mcL (4.19-5.50); Red Cell Distribution Width 18.6 % (11.5-14.5)
[2017-04-28 08:04] LABS: Alanine Aminotransferase 24 Units/L (0-55); Albumin 2.8 g/dL (3.5-5.0); Albumin/Globulin Ratio 0.6 (1.1-2.2); Alkaline Phosphatase 124 Units/L (38-126); Aspartate Amino Transferase 28 Units/L (5-34); BUN/Creatinine Ratio 16 (6-26); Bilirubin,Total 0.8 mg/dL (0.2-1.2); Blood Urea Nitrogen 14 mg/dL (8-26); Calcium 9.2 mg/dL (8.6-10.8); Carbon Dioxide 18 mEq/L (19-29); Chloride 107 mEq/L (98-109); Globulin 4.5 g/dL (2.4-3.5); Glucose 87 mg/dL (70-99); Osmolality,Calculated 278 (280-300); Potassium 4.3 mEq/L (3.5-4.5); Sodium 134 mEq/L (136-145); Total Protein 7.3 g/dL (6.0-8.3); eGFR For African Americans > 60 (> 60); eGFR For Non-African Americans > 60 (> 60)
[2017-04-28 08:40] LABS: Lymphocytes # 1.8 K/mcL (0.6-4.6); Monocytes # 0.9 K/mcL (0.0-1.3); Neutrophils # 6.2 K/mcL (1.6-8.9); Platelet Estimate Slight Decrease (Normal)
[2017-04-28] MEDS: Budesonide/Formoterol 160/4.5 MDI IH SCH ×2 (10:41→21:33)
[2017-04-28] MEDS: Nicotine 14 MG PATCH.TD24 TD SCH (11:06)
[2017-04-28] MEDS: Pantoprazole 40 MG VIAL IVP SCH (11:08)
[2017-04-28] MEDS: Diltiazem CD (24hr) 240 MG CAPSULE PO SCH (11:08)
[2017-04-28] MEDS: Folic Acid 1 MG TABLET PO SCH (11:08)
[2017-04-28] MEDS: Vitamin B Complex/Vit C/Vit E 1 EACH TABLET PO SCH (11:09)
[2017-04-28] MEDS: traZODone 50 MG TABLET PO SCH ×3 (11:09→19:48)
[2017-04-28] MEDS: Thiamine (B-1) 100 MG TABLET PO SCH ×2 (11:09→19:48)
[2017-04-28] MEDS: *HR* HYDROcodone/Acet 5/325 mg TABLET PO PRN (13:39)
[2017-04-28] MEDS: *HR* LORazepam 1 MG TABLET PO PRN ×2 (16:56→22:30)
--- NOTE | 2017-04-28 17:16 | Internal Med Progress Note ---
Date of Encounter: 04/28/17 Time of Encounter: 08:00 - Assessment and plan (1) Atrial fib/flutter, transient Current Visit: Yes Status: Acute Assessment and plan: Resolved doing well on PO Cardizem continue aspirin 81 mg for anticoagulation his current episode could be due to alcohol intoxication and DTs (2) Alcohol withdrawal delirium Current Visit: Yes Status: Acute Assessment and plan: Improving with switch him to PO Ativan as needed continue CIWA assessment (3) Atypical chest pain Current Visit: Yes Status: Acute Assessment and plan: Seems to be atypical chest pain no further work needed continue aspirin (4) Physical deconditioning Current Visit: Yes Status: Acute Assessment and plan: due to DT's improved d/c 1 on 1 sitter cont PT / OT eval (5) Anxiety disorder Current Visit: No Status: Chronic Assessment and plan: Resumed home meds cont Ativan PRN Qualifiers: Anxiety disorder type: unspecified anxiety disorder Qualified Code(s): F41.9 - Anxiety disorder, unspecified (6) DVT prophylaxis Current Visit: No Status: Acute Assessment and plan: on SQ heparin (7) Alcohol dependence Current Visit: No Status: Acute Qualifiers: Substance use status: in withdrawal Complication of substance-induced condition: uncomplicated Qualified Code(s): F10.230 - Alcohol dependence with withdrawal, uncomplicated (8) Alcohol dependence with acute alcoholic intoxication and delirium Current Visit: No Status: Acute Assessment and plan: Counseled to quit drinking cont thiamine, folic acid and MVT (9) COPD (chronic obstructive pulmonary disease) Current Visit: No Status: Chronic Assessment and plan: Stable with home regimen not in exacerbation Qualifiers: COPD type: emphysema Emphysema type: panlobular Qualified Code(s): J43.1 - Panlobular emphysema - Subjective Interval history: This is a 61-year-old gentleman known past medical history of HTN, Asthma, Anxiety / depression, chronic alcohol dependence and tobacco dependence initially admitted to ICU due to severe DT's. No patient was transferred to the regular floor yesterday, since his DT's seems to be improved. Today patient is more alert and oriented to time place person. Patient still has some hand tremors and looks lethargic - Constitutional Vitals: Temp Pulse Resp BP Pulse Ox 98.3 F 100 16 100/61 100 04/28/17 15:16 04/28/17 15:16 04/28/17 15:36 04/28/17 15:16 04/28/17 15:36 General appearance: Present: cooperative, A&O X 3, pleasant, no acute distress, answers questions appropriately - Head Head exam: Present: atraumatic, normal inspection - Respiratory Respiratory exam: Present: CTAB. Absent: accessory muscle use, rales, rhonchi, wheezes - Cardiovascular Cardiovascular exam: Present: RRR, +S1, +S2. Absent: diastolic murmur, gallop, rubs, systolic murmur - GI/Abdominal GI/Abdominal exam: Present: normal bowel sounds, soft. Absent: distended, guarding, rebound, rigid, tenderness - Psychiatric Psychiatric exam: Present: anxious. Absent: suicidal ideation Internal Medicine: Result - Labs CBC & Chem 7: 04/28/17 07:32 04/28/17 07:32 Labs: Short CBC 04/28/17 Range/Units 07:32 WBC 8.8 (4.3-11.1) K/mcL Hgb 11.4 L (12.9-16.9) g/dL Hct 37.0 L (37.5-50.1) % Plt Count 82 L (140-400) K/mcL Neutrophils # 6.2 (1.6-8.9) K/mcL BMP 04/28/17 07:32 Sodium 134 L Potassium 4.3 Chloride 107 Carbon Dioxide 18 L BUN 14 Creatinine 0.86 Glucose 87 Calcium 9.2 Liver Function 04/28/17 Range/Units 07:32 Total Bilirubin 0.8 (0.2-1.2) mg/dL AST 28 (5-34) Units/L ALT 24 (0-55) Units/L Alkaline Phosphatase 124 (38-126) Units/L Albumin 2.8 L (3.5-5.0) g/dL - ABG Interpretation ABG results: PT/INR, D-dimer PT 11.0 Seconds (9.4-12.1) 04/23/17 17:21 Consult Discharge Plan - Plan Referrals: Terence Barahona MD [Non-Partnered Physician] - 05/06/17 10:00 am (PLEASE SHOW UP 30 MINS EARLY, TAKE PICTURE ID, INSURANCE CARDS, ALL MEDS IN THE BOTTLES. TAKE YOUR DISCHARGE INFORMATION WITH YOU TO YOUR APPOINTMENT. PLEASE TAKE YOUR NEW PATIENT PACKET WITH YOU FILLED OUT TO YOUR APPOINTMENT. THE PACKET WILL BE SENT IN THE MAIL. IF YOU HAVE TO CANCEL PLEASE CALL WITHIN 24 HOURS OF YOUR APPOINTMENT AT [phone]. THIS IS A NEW PATIENT VISIT)
[2017-04-28] MEDS: Ibuprofen 400 MG TABLET PO PRN (19:47)
[2017-04-28] MEDS: Divalproex (24 HR) 250 MG TABLET PO SCH (19:48)
[2017-04-29 04:07] LABS: Basophils % 0.2 %; Eosinophils # 0.1 K/mcL (0.0-0.6); Eosinophils % 2.3 %; Hematocrit 34.4 % (37.5-50.1); Hemoglobin 10.5 g/dL (12.9-16.9); Immature Granulocytes % 1.6 % (0-4); Lymphocytes # 1.2 K/mcL (0.6-4.6); Mean Corpuscular HGB Conc 30.5 g/dL (31.6-35.5); Mean Corpuscular Hemoglobin 26.9 pg (28.0-33.3); Mean Platelet Volume 9.4 fL (9.4-12.4); Monocytes # 0.6 K/mcL (0.0-1.3); Monocytes % 11.1 %; Neutrophils # 3.1 K/mcL (1.6-8.9); Red Blood Count 3.91 M/mcL (4.19-5.50); Red Cell Distribution Width 18.3 % (11.5-14.5); Segmented Neutrophils % 60.8 %
[2017-04-29 04:09] LABS: Platelet Count 81 K/mcL (140-400)
[2017-04-29 04:25] LABS: Alanine Aminotransferase 20 Units/L (0-55); Albumin 2.6 g/dL (3.5-5.0); Albumin/Globulin Ratio 0.6 (1.1-2.2); Alkaline Phosphatase 110 Units/L (38-126); Aspartate Amino Transferase 21 Units/L (5-34); BUN/Creatinine Ratio 18 (6-26); Bilirubin,Total 0.4 mg/dL (0.2-1.2); Blood Urea Nitrogen 16 mg/dL (8-26); Calcium 9.3 mg/dL (8.6-10.8); Carbon Dioxide 24 mEq/L (19-29); Chloride 107 mEq/L (98-109); Globulin 4.2 g/dL (2.4-3.5); Glucose 102 mg/dL (70-99); Osmolality,Calculated 287 (280-300); Potassium 3.8 mEq/L (3.5-4.5); Sodium 138 mEq/L (136-145); Total Protein 6.8 g/dL (6.0-8.3); eGFR For African Americans > 60 (> 60); eGFR For Non-African Americans > 60 (> 60)
[2017-04-29] MEDS: Nicotine 14 MG PATCH.TD24 TD SCH (07:43)
[2017-04-29] MEDS: Thiamine (B-1) 100 MG TABLET PO SCH (07:44)
[2017-04-29] MEDS: Diltiazem CD (24hr) 240 MG CAPSULE PO SCH (07:44)
[2017-04-29] MEDS: Pantoprazole 40 MG VIAL IVP SCH (07:44)
[2017-04-29] MEDS: Folic Acid 1 MG TABLET PO SCH (07:44)
[2017-04-29] MEDS: Vitamin B Complex/Vit C/Vit E 1 EACH TABLET PO SCH (07:44)
[2017-04-29] MEDS: traZODone 50 MG TABLET PO SCH (07:44)
[2017-04-29] MEDS: *HR* HYDROcodone/Acet 5/325 mg TABLET PO PRN (07:59)
--- NOTE | 2017-04-29 09:06 | Discharge Summary ---
Date of Encounter: 04/29/17 Time of Encounter: 09:01 - Discharge Diagnosis (1) Alcohol withdrawal delirium Priority: Primary Status: Acute (2) Atrial fib/flutter, transient Priority: Secondary Status: Acute (3) Atypical chest pain Priority: Secondary Status: Acute (4) Physical deconditioning Priority: Secondary Status: Acute (5) Anxiety disorder Priority: Secondary Status: Chronic Qualifiers: Anxiety disorder type: unspecified anxiety disorder Qualified Code(s): F41.9 - Anxiety disorder, unspecified (6) Alcohol dependence Priority: Primary Status: Acute Qualifiers: Substance use status: in withdrawal Complication of substance-induced condition: uncomplicated Qualified Code(s): F10.230 - Alcohol dependence with withdrawal, uncomplicated (7) Alcohol dependence with acute alcoholic intoxication and delirium Priority: Primary Status: Acute (8) COPD (chronic obstructive pulmonary disease) Priority: Secondary Status: Chronic Qualifiers: COPD type: emphysema Emphysema type: panlobular Qualified Code(s): J43.1 - Panlobular emphysema - Discharge Medications Prescriptions: Diltiazem CD (24hr) [Cardizem CD] 240 mg PO DAILY 30 Days LORazepam [Ativan] 0.5 mg PO TID PRN #10 tablet PRN Reason: Alcohol Withdrawal Nicotine Patch [Nicoderm] 14 mg TD DAILY 28 Days Home Medications: Albuterol Sulfate [Proair Hfa] 2 puff IH Q6H PRN 12/21/16 [History] Quetiapine Fumarate [Seroquel] 300 mg PO HS 12/21/16 [History] SUMAtriptan [Imitrex] 6 mg SQ AD PRN 12/21/16 [History] Lipase/Protease/Amylase [Ananya Dr 12,000 Units Capsule] 3 cap PO TIDWM 03/15/17 [History] Omeprazole [PriLOSEC] 20 mg PO DAILY 03/15/17 [History] Amitriptyline HCl 75 mg PO HS 03/27/17 [History] Amlodipine Besylate 10 mg PO DAILY 03/27/17 [History] Budesonide/Formoterol 160/4.5 [Symbicort 160/4.5] 1 puff IH BIDR 03/27/17 [ History] Desonide [Tridesilon] 1 appl TP BID PRN 03/27/17 [History] Divalproex (24 HR) [Depakote ER (24 HR)] 1,250 mg PO HS 03/27/17 [History] Folic Acid 2 mg PO DAILY 03/27/17 [History] Hydrocortisone 1% CREAM [Cortaid] 1 appl TP BID PRN 03/27/17 [History] Magnesium Oxide [Mag-Ox] 400 mg PO BID 03/27/17 [History] Thiamine (B-1) [Vitamin B-1] 100 mg PO BID 03/27/17 [History] traZODone [TraZODone] 50 mg PO TID 03/27/17 [History] Cholecalciferol (Vitamin D3) [Vitamin D3] 1,000 unit PO DAILY 04/23/17 [History] Diltiazem CD (24hr) [Cardizem CD] 240 mg PO DAILY 30 Days 04/29/17 [Rx] Docusate [Colace] 100 mg PO BID PRN #0 capsule 04/29/17 [Rx] LORazepam [Ativan] 0.5 mg PO TID PRN #10 tablet 04/29/17 [Rx] Nicotine Patch [Nicoderm] 14 mg TD DAILY 28 Days 04/29/17 [Rx] Allergies/Adverse Reactions: Allergies Buspirone [From BuSpar] Adverse Reaction (Verified 03/27/17 16:46) See Comments per [facility] list tramadol Adverse Reaction (Verified 03/27/17 16:46) See Comments per va list Date of admission: 04/23/17 19:55 Primary care physician: PCP NO Consults: 04/23/17 20:47 Consult to Nutrition [CONS] Routine Comment: Consulting Provider: NUTRITION Reason for Dietary Consult: MST Score 04/23/17 22:16 Consult to Credit Risk Manager [CONS] Routine Reason for SW Consult: chronic alcohol abuser 04/24/17 03:48 Consult to Cardiology [CONS] Routine Comment: Consulting Provider: Cardiology Jack Reason for Consult: AFlutter RVR, on amio drip Time Notified: 03:48 Call Completed: Yes 04/24/17 09:51 Consult to Credit Risk Manager [CONS] Routine Reason for SW Consult: alcoholism 04/24/17 10:11 Consult to Invasive Line Access Team [CONS] Routine Reason for Consult: poor vascular access Line Type: EPIV 04/27/17 09:20 Consult to Physical Therapy [CONS] Routine Comment: Evaluate, develop and implement POC Reason for Consult: Rehab Assessment OT [Consult to Occupational Therapy] [CONS] Routine Comment: Evaluate, develop and implement POC Reason for Consult: Rehab assessment Anticipated date of discharge: 04/29/17 - Patient Status Disposition: Home Health Service Condition: Fair - Discharge Instructions Follow Up With: Terence Barahona MD [Non-Partnered Physician] - 05/06/17 10:00 am (PLEASE SHOW UP 30 MINS EARLY, TAKE PICTURE ID, INSURANCE CARDS, ALL MEDS IN THE BOTTLES. TAKE YOUR DISCHARGE INFORMATION WITH YOU TO YOUR APPOINTMENT. PLEASE TAKE YOUR NEW PATIENT PACKET WITH YOU FILLED OUT TO YOUR APPOINTMENT. THE PACKET WILL BE SENT IN THE MAIL. IF YOU HAVE TO CANCEL PLEASE CALL WITHIN 24 HOURS OF YOUR APPOINTMENT AT [phone]. THIS IS A NEW PATIENT VISIT) Hospital course: Mr. Chen is a 61-year-old gentleman known past medical history of HTN , Asthma, Anxiety / depression, chronic alcohol dependence and tobacco dependence initially admitted to ICU due to severe DT's. Pt happened to have A fib / atrial flutter with RVR due to severe DT's. Pt was placed on Precedex gtt initially for sedation for his alcohol withdrawl symptoms. His HR was well controlled with Cardizem. he was transferred to telemetry 2 days ago. Since then pt has been doing well, he is off the Precedex for more than 3 days and currently required very little PO ativan only. He does not have tremors any more. PT / OT evaluated him, recommend home health services with PT / OT to d/c home. Will d/c him home today in stable condition - Time Spent with Patient Total time spent providing and/or coordinating discharge services: Greater than 30 minutes (spent 45 minutes on this p's discharge summary due to his multiple medical problems and did required lot of counseling) - Constitutional Vitals: Temp Pulse Resp BP Pulse Ox 98.0 F 72 14 120/79 94 04/29/17 05:58 04/29/17 05:58 04/29/17 05:58 04/29/17 05:58 04/29/17 05:58 General appearance: Present: cooperative, A&O X 3, pleasant, no acute distress, answers questions appropriately - Head Head exam: Present: atraumatic, normal inspection - Respiratory Respiratory exam: Present: CTAB. Absent: accessory muscle use, rales, rhonchi, wheezes - Cardiovascular Cardiovascular exam: Present: RRR, +S1, +S2. Absent: diastolic murmur, gallop, rubs, systolic murmur - GI/Abdominal GI/Abdominal exam: Present: normal bowel sounds, soft. Absent: firm, guarding, tenderness - Psychiatric Psychiatric exam: Present: normal affect, normal mood
[2017-04-29] MEDS: Budesonide/Formoterol 160/4.5 MDI IH SCH (11:14)
[2017-04-29 12:12] VITALS: BP 114/75
[2017-04-29] MEDS: *HR* LORazepam 1 MG TABLET PO PRN (12:21)
--- NOTE | 2017-04-29 13:20 | Physician Discharge Referral ---
Home Health/Hosp Referral Info Transfer to: Home Health Provider in Charge Post Discharge: PCP (Does require home visiting nurse, home PT / OT services) - Diagnosis (1) Alcohol withdrawal delirium Status: Acute (2) Atrial fib/flutter, transient Status: Acute (3) Atypical chest pain Status: Acute (4) Physical deconditioning Status: Acute (5) Anxiety disorder Status: Chronic (6) Alcohol dependence Status: Acute (7) Alcohol dependence with acute alcoholic intoxication and delirium Status: Acute (8) COPD (chronic obstructive pulmonary disease) Status: Chronic - Respiratory Orders Smoking Cessation: Smoking cessation has been advised. For more information, call the [place] Tobacco Quit Line at 7-941-ITFK-NOW. - Transfer Medications Prescriptions: Diltiazem CD (24hr) [Cardizem CD] 240 mg PO DAILY 30 Days LORazepam [Ativan] 0.5 mg PO TID PRN #10 tablet PRN Reason: Alcohol Withdrawal Nicotine Patch [Nicoderm] 14 mg TD DAILY 28 Days Home Medications: Albuterol Sulfate [Proair Hfa] 2 puff IH Q6H PRN 12/21/16 [History] Quetiapine Fumarate [Seroquel] 300 mg PO HS 12/21/16 [History] SUMAtriptan [Imitrex] 6 mg SQ AD PRN 12/21/16 [History] Lipase/Protease/Amylase [Creon Dr 12,000 Units Capsule] 3 cap PO TIDWM 03/15/17 [History] Omeprazole [PriLOSEC] 20 mg PO DAILY 03/15/17 [History] Amitriptyline HCl 75 mg PO HS 03/27/17 [History] Amlodipine Besylate 10 mg PO DAILY 03/27/17 [History] Budesonide/Formoterol 160/4.5 [Symbicort 160/4.5] 1 puff IH BIDR 03/27/17 [ History] Desonide [Tridesilon] 1 appl TP BID PRN 03/27/17 [History] Divalproex (24 HR) [Depakote ER (24 HR)] 1,250 mg PO HS 03/27/17 [History] Folic Acid 2 mg PO DAILY 03/27/17 [History] Hydrocortisone 1% CREAM [Cortaid] 1 appl TP BID PRN 03/27/17 [History] Magnesium Oxide [Mag-Ox] 400 mg PO BID 03/27/17 [History] Thiamine (B-1) [Vitamin B-1] 100 mg PO BID 03/27/17 [History] traZODone [TraZODone] 50 mg PO TID 03/27/17 [History] Cholecalciferol (Vitamin D3) [Vitamin D3] 1,000 unit PO DAILY 04/23/17 [History] Diltiazem CD (24hr) [Cardizem CD] 240 mg PO DAILY 30 Days 04/29/17 [Rx] Docusate [Colace] 100 mg PO BID PRN #0 capsule 04/29/17 [Rx] LORazepam [Ativan] 0.5 mg PO TID PRN #10 tablet 04/29/17 [Rx] Nicotine Patch [Nicoderm] 14 mg TD DAILY 28 Days 04/29/17 [Rx] Allergies/Adverse Reactions: Allergies Buspirone [From BuSpar] Adverse Reaction (Verified 03/27/17 16:46) See Comments per va list tramadol Adverse Reaction (Verified 03/27/17 16:46) See Comments per va list Certification: Further, I certify that my clinical findings support that this patient is homebound (i.e. absences from home require considerable and taxing effort and are for medical reasons or cheondoism services or infrequently or short duration when for other reasons) because: Homebound Reason: Patient requires assistance of a person or device to safely leave home Attestation: My signature below is to certify that this patient is under my care and that I, or nurse practitioner, or a physician's veterinary technician assistant working with me, has a face-to -face encounter with this patient.
== END 2017-04-29 14:42 | disposition home health service (06) | DRG 309 ==
LOC: 2ANU 16:58 → EMEROO 16:58 → 2ANU 20:00 → 2NNU 04-24 02:24 → 3ANU 04-27 17:04
PROVIDERS: ADMIT Family Medicine; ATTEND Internal Medicine

== ENCOUNTER 2017-05-10 18:56 | Inpatient (IN) ==
--- NOTE | 2017-05-10 19:25 | Emergency Department Note ---
Disposition Clinical Impression: Chronic schizophrenia, Suicidal ideation, CAP (community acquired pneumonia) Alcohol intoxication Qualifiers: Complication of substance-induced condition: uncomplicated Qualified Code(s): F10.920 - Alcohol use, unspecified with intoxication, uncomplicated Disposition: Admitted As Inpatient Condition: Fair Referrals: NO,PCP [Primary Care Provider] - Forms: ED Satisfaction Letter Time of Disposition: 21:23 Psych HPI - General Chief Complaint: ED Alcohol Abuse Stated Complaint: ETOH SI Time Seen by Provider: 05/10/17 19:00 Source: patient, EMS Mode of arrival: ambulatory Limitations: no limitations Nursing Notes Reviewed: Yes Vital Signs Reviewed: Yes - History of Present Illness HPI Narrative: 62-year-old male with history of uncontrolled bipolar and schizophrenia presents complaining of suicidal ideation, had a gun to his head, called EMS, was going "blow his brains out" he was crying and drinking heavily, at home he states he has been drinking for the last week and "I just want to end it all, I don't want pain anymore.'" Denies homicidal ideation, denies hallucinations. Patient has been diagnosed with multiple mental health disorders but is noncompliant and states "I do not want to take any medications". He currently reports some reproducible right chest pain. And some right abdominal pain. Denies fever chills, dysuria, hematuria, hematochezia. 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 Duration: intermittent History of similar episodes: Yes - Related Data Home Medications Medication Instructions Recorded Confirmed Albuterol Sulfate [Proair Hfa] 2 puff IH Q6H PRN 12/21/16 04/23/17 Quetiapine Fumarate [Seroquel] 300 mg PO HS 12/21/16 04/23/17 SUMAtriptan succinate [Imitrex] 6 mg SQ AD PRN 12/21/16 04/23/17 Lipase/Protease/Amylase [Ananya Kern 3 cap PO TIDWM 03/15/17 04/23/17 12,000 Units Capsule] Omeprazole [PriLOSEC] 20 mg PO DAILY 03/15/17 04/23/17 Amitriptyline HCl 75 mg PO HS 03/27/17 04/23/17 Amlodipine Besylate 10 mg PO DAILY 03/27/17 04/23/17 Budesonide/Formoterol 160/4.5 1 puff IH BIDR 03/27/17 04/23/17 [Symbicort 160/4.5] Desonide [Tridesilon] 1 appl TP BID PRN 03/27/17 04/23/17 Divalproex (24 HR) [Depakote ER 1,250 mg PO HS 03/27/17 04/23/17 (24 HR)] Folic Acid 2 mg PO DAILY 03/27/17 04/23/17 Hydrocortisone 1% CREAM [Cortaid] 1 appl TP BID PRN 03/27/17 04/23/17 Magnesium Oxide [Mag-Ox] 400 mg PO BID 03/27/17 04/23/17 Thiamine (B-1) [Vitamin B-1] 100 mg PO BID 03/27/17 04/23/17 traZODone [TraZODone] 50 mg PO TID 03/27/17 04/23/17 Cholecalciferol (Vitamin D3) 1,000 unit PO DAILY 04/23/17 04/23/17 [Vitamin D3] Previous Rx's Medication Instructions Recorded Diltiazem CD (24hr) [Cardizem CD] 240 mg PO DAILY 30 Days 04/29/17 Docusate [Colace] 100 mg PO BID PRN #0 capsule 04/29/17 LORazepam [Ativan] 0.5 mg PO TID PRN #10 tablet 04/29/17 Nicotine Patch [Nicoderm] 14 mg TD DAILY 28 Days 04/29/17 Allergies Allergy/AdvReac Type Severity Reaction Status Date / Time Buspirone [From BuSpar] AdvReac See Verified 03/27/17 16:46 Comments tramadol AdvReac See Verified 03/27/17 16:46 Comments All systems ED: reviewed and negative except as stated. Review of Systems: As Per HPI Constitutional: Denies: fever, chills Cardiovascular: Reports: as per HPI, chest pain. Denies: paroxysmal nocturnal dyspnea Respiratory: Denies: cough, dyspnea Gastrointestinal: Reports: as per HPI, abdominal pain. Denies: nausea, vomiting , hematemesis, melena, hematochezia Genitourinary: Denies: urgency, dysuria, frequency Musculoskeletal: Denies: back pain, neck pain Integumentary: Denies: rash Psychiatric: Reports: as per HPI, suicidal thoughts. Denies: homicidal thoughts , auditory hallucinations, visual hallucinations Endocrine: Denies: fatigue Past Medical History - Past Medical History Attestation: Yes The following information was validated with the patient. Source: patient Medical history: Reports: COPD, GERD, hypertension, migraine, myocardial infarction, other Surgical history: Reports: appendectomy, cholecystectomy Psychiatric history: Reports: anxiety, bipolar, depression, schizophrenia, previous psychiatric hospitalization, other - Social History Smoking Status: Current every day smoker Smokeless Tobacco Status: No Alcohol use: Reports: heavy Drug use: Reports: none Physical Exam Constitutional: Tearful middle-aged male appears very uncomfortable and upset Eyes: PERRLA, sclera anicteric ENT & Mouth: NCAT, normal external ears bilaterally, MMM Neck: normal inspection, neck is supple Resp: CTA bilaterally, no resp distress CV: RRR, no m/g/r GI: normal inspection, soft, no guarding or rigidity Back: normal inspection, no tenderness to palpation Neuro: A&O3, CNII-XII grossly intact, DALE Psych: +SI, no HI or hallucinations MSK: no gross deformities, normal ROM UE and LE Skin: on limited exam, skin intact with no rashes or lesions - General Limitations: no limitations General appearance: alert Course Course Narrative: 62-year-old male with suicidal ideation, very high risk considering heavy drinking, uncontrolled mental health disorder, age and male gender, concerning for high risk, we will get a pink slip complaining one A workup and psychiatric eval. - Reevaluation(s) Reevaluation #1: Blood alcohol of 286, admitted to medicine service in stable condition, also has a small right pleural effusion, started empirically on ceftriaxone and azithromycin place an IV line just for pneumonia, needs to have a blood alcohol less than 80 for psychiatric evaluation Time: 21:21 Vital Signs Temperature 99.0 F 05/10/17 18:58 Pulse Rate 90 05/10/17 18:58 Respiratory Rate 18 05/10/17 18:58 Blood Pressure 100/63 05/10/17 18:58 O2 Sat by Pulse Oximetry 96 05/10/17 18:58 Temperature 99.0 F 05/10/17 18:58 Pulse Rate 90 05/10/17 18:58 Respiratory Rate 18 05/10/17 18:58 Blood Pressure 100/63 05/10/17 18:58 O2 Sat by Pulse Oximetry 96 05/10/17 18:58 Oxygen Delivery Oxygen Delivery Room Air Psych - MDM Narrative Medical decision making narrative: 62-year-old male with possible right pleural effusion and leukocytosis, treated for community acquired pneumonia and suicidal ideation, but alcohol is 286. Admission for medical clearance prior to psychiatric admission, pink slipped. - Lab Data Result diagrams: 05/10/17 19:34 05/10/17 19:34 Lab Results 05/10/17 05/10/17 05/10/17 Range/Units 19:34 19:34 19:34 WBC 14.3 H (4.3-11.1) K/mcL RBC 4.42 (4.19-5.50) M/mcL Hgb 12.1 L (12.9-16.9) g/dL Hct 38.8 (37.5-50.1) % MCV 87.8 (83.0-100.0) fL MCH 27.4 L (28.0-33.3) pg MCHC 31.2 L (31.6-35.5) g/dL RDW 18.4 H (11.5-14.5) % Plt Count 286 (140-400) K/mcL MPV 9.2 L (9.4-12.4) fL Immature Gran % 0.4 (0-4) % Seg Neutrophils % 77.5 % Lymphocytes % 16.7 % Monocytes % 4.5 % Eosinophils % 0.6 % Basophils % 0.3 % Neutrophils # 11.1 H (1.6-8.9) K/mcL Lymphocytes # 2.4 (0.6-4.6) K/mcL Monocytes # 0.7 (0.0-1.3) K/mcL Eosinophils # 0.1 (0.0-0.6) K/mcL Basophils # 0.1 (0.0-0.2) K/mcL Sodium 141 (136-145) mEq/L Potassium 3.8 (3.5-4.5) mEq/L Chloride 110 H (98-109) mEq/L Carbon Dioxide 23 (19-29) mEq/L BUN 8 (8-26) mg/dL Creatinine 0.84 (0.72-1.25) mg/dL Est GFR ( Amer) > 60 (> 60) Est GFR (Non-Af Amer) > 60 (> 60) BUN/Creatinine Ratio 10 (6-26) Glucose 91 (70-99) mg/dL Calculated Osmolality 290 (280-300) Calcium 8.6 (8.6-10.8) mg/dL Troponin I 0.00 (0-0.03) ng/mL Urine Color (Yellow) Urine Clarity (Clear) Urine pH (5.0-8.0) pH Units Ur Specific [place] (1.010-1.025) Urine Protein (Neg-Trace) mg/dL Urine Glucose (UA) (Normal) mg/dL Urine Ketones (Negative) mg/dL Urine Blood (Negative) Urine Nitrite (Negative) Urine Bilirubin (Negative) Urine Urobilinogen (Normal) mg/dL Ur Leukocyte Esterase (Negative) Urine Microscopic RBC (0-3) per hpf Urine Microscopic WBC (0-3) per hpf Ur Squamous Epith Cells (None-Few) per lpf Urine Bacteria (None-Few) per hpf Hyaline Casts (None-Few) per lpf Salicylates < 5.0 L (15-30) mg/dL Urine Opiates Screen (Yfoepr=279) ng/mL Acetaminophen < 1.0 L (10-30) mcg/mL Ur Barbiturates Screen (Vdjucy=421) ng/mL Ur Phencyclidine Scrn (Cutoff=25) ng/mL Ur Amphetamines Screen (Avvynt=1589) ng/mL U Benzodiazepines Scrn (Orbfli=944) ng/mL Urine Cocaine Screen (Cutoff= 300) ng/mL U Marijuana (THC) Screen (Cutoff = 50) ng/mL Ethyl Alcohol 286 H (0-10) mg/dL 05/10/17 05/10/17 Range/Units 20:19 20:19 WBC (4.3-11.1) K/mcL RBC (4.19-5.50) M/mcL Hgb (12.9-16.9) g/dL Hct (37.5-50.1) % MCV (83.0-100.0) fL MCH (28.0-33.3) pg MCHC (31.6-35.5) g/dL RDW (11.5-14.5) % Plt Count (140-400) K/mcL MPV (9.4-12.4) fL Immature Gran % (0-4) % Seg Neutrophils % % Lymphocytes % % Monocytes % % Eosinophils % % Basophils % % Neutrophils # (1.6-8.9) K/mcL Lymphocytes # (0.6-4.6) K/mcL Monocytes # (0.0-1.3) K/mcL Eosinophils # (0.0-0.6) K/mcL Basophils # (0.0-0.2) K/mcL Sodium (136-145) mEq/L Potassium (3.5-4.5) mEq/L Chloride (98-109) mEq/L Carbon Dioxide (19-29) mEq/L BUN (8-26) mg/dL Creatinine (0.72-1.25) mg/dL Est GFR ( Amer) (> 60) Est GFR (Non-Af Amer) (> 60) BUN/Creatinine Ratio (6-26) Glucose (70-99) mg/dL Calculated Osmolality (280-300) Calcium (8.6-10.8) mg/dL Troponin I (0-0.03) ng/mL Urine Color Yellow (Yellow) Urine Clarity Clear (Clear) Urine pH 6.0 (5.0-8.0) pH Units Ur Specific [place] 1.012 (1.010-1.025) Urine Protein Negative (Neg-Trace) mg/dL Urine Glucose (UA) Normal (Normal) mg/dL Urine Ketones Negative (Negative) mg/dL Urine Blood Negative (Negative) Urine Nitrite Negative (Negative) Urine Bilirubin Negative (Negative) Urine Urobilinogen Normal (Normal) mg/dL Ur Leukocyte Esterase Trace H (Negative) Urine Microscopic RBC 0-3 (0-3) per hpf Urine Microscopic WBC 3-5 H (0-3) per hpf Ur Squamous Epith Cells Moderate H (None-Few) per lpf Urine Bacteria None Seen (None-Few) per hpf Hyaline Casts None Seen (None-Few) per lpf Salicylates (15-30) mg/dL Urine Opiates Screen Negative (Arnzpq=878) ng/mL Acetaminophen (10-30) mcg/mL Ur Barbiturates Screen Negative (Xkxhtn=324) ng/mL Ur Phencyclidine Scrn Negative (Cutoff=25) ng/mL Ur Amphetamines Screen Negative (Cqcoaq=5263) ng/mL U Benzodiazepines Scrn Negative (Buggor=330) ng/mL Urine Cocaine Screen Negative (Cutoff= 300) ng/mL U Marijuana (THC) Screen Negative (Cutoff = 50) ng/mL Ethyl Alcohol (0-10) mg/dL - EKG Data EKG attestation: Yes I reviewed and interpreted this EKG. EKG shows normal: sinus rhythm (90 bpm DE 159 QRS [address] segment elevations or depressions) Rate: normal Rhythm: NSR (90 bpm, DE 159 QRS 86 QTC within normal limits no ST segment elevations or depressions) Interpretation: no acute changes Psychiatric Medical Clearance - Medical Clearance Checklist Does the patient have a NEW psychiatric condition?: Yes Any abnormalities indicating possible medical illness?: No Any history of medical issues?: No Medical History: No Social History Section defined Any abnormal vital signs prior to transfer?: No Current Vitals: Last Vital Signs Temp 99.0 F 05/10/17 18:58 Pulse 90 05/10/17 18:58 Resp 18 05/10/17 18:58 BP 100/63 05/10/17 18:58 Pulse Ox 96 05/10/17 18:58 Is the patient intoxicated or cognitively impaired?: No Psychiatric Lab Panel: Drug Levels and Toxicity 05/10/17 05/10/17 19:34 20:19 Urine Opiates Screen Negative Acetaminophen < 1.0 L Ur Barbiturates Screen Negative Ur Phencyclidine Scrn Negative Ur Amphetamines Screen Negative U Benzodiazepines Scrn Negative Urine Cocaine Screen Negative U Marijuana (THC) Screen Negative Ethyl Alcohol 286 H Any abnormalities on the physical exam?: No Any abnormal labs?: Yes Abnormal Labs: Abnormal lab results WBC 14.3 K/mcL (4.3-11.1) H 05/10/17 19:34 Hgb 12.1 g/dL (12.9-16.9) L 05/10/17 19:34 MCH 27.4 pg (28.0-33.3) L 05/10/17 19:34 MCHC 31.2 g/dL (31.6-35.5) L 05/10/17 19:34 RDW 18.4 % (11.5-14.5) H 05/10/17 19:34 MPV 9.2 fL (9.4-12.4) L 05/10/17 19:34 Neutrophils # 11.1 K/mcL (1.6-8.9) H 05/10/17 19:34 Chloride 110 mEq/L (98-109) H 05/10/17 19:34 Ur Leukocyte Esterase Trace (Negative) H 05/10/17 20:19 Urine Microscopic WBC 3-5 per hpf (0-3) H 05/10/17 20:19 Ur Squamous Epith Cells Moderate per lpf (None-Few) H 05/10/17 20:19 Salicylates < 5.0 mg/dL (15-30) L 05/10/17 19:34 Acetaminophen < 1.0 mcg/mL (10-30) L 05/10/17 19:34 Ethyl Alcohol 286 mg/dL (0-10) H 05/10/17 19:34 Does the patient require durable medical equiptment?: No Is the patient ambulatory?: Yes Is the patient a fall risk?: Yes Has the patient been medically cleared?: No Any acute medical condition require Tx prior to transfer?: Yes Statement of Medical Clearance: I have evaluated the patient, reviewed diagnostic information, and certify that the patient's medical condition is sufficiently stable that transfer to the psychiatric unit does not pose a significant risk of deterioration.
--- NOTE | 2017-05-10 19:44 | Emergency Department Note ---
START Narrative - START START: I examined this patient and my medical decision-making was reviewed with the TRAFFIC SUPERVISOR/PA/Advanced Practice Nurse/Resident Physician. I agree with the documented findings, disposition and treatment plan as described except to the extent set forth below. ED attending note: Patient seen with emergency medicine resident Dr DENNIS. We independently evaluated the patient. We independently had [id number] contact with the patient. Please see a copy of his note for details of the history and physical, evaluation, management and disposition of this emergency Department patient. 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 Patient is in flat affect hemogram and stable physical examination is otherwise benign awaiting for screening labs and then mental health evaluation. Patient has been pink slipped. Disposition pending.
[2017-05-10 19:53] LABS: Basophils # 0.1 K/mcL (0.0-0.2); Basophils % 0.3 %; Eosinophils # 0.1 K/mcL (0.0-0.6); Eosinophils % 0.6 %; Hematocrit 38.8 % (37.5-50.1); Hemoglobin 12.1 g/dL (12.9-16.9); Immature Granulocytes % 0.4 % (0-4); Lymphocytes # 2.4 K/mcL (0.6-4.6); Lymphocytes % 16.7 %; Mean Corpuscular HGB Conc 31.2 g/dL (31.6-35.5); Mean Corpuscular Hemoglobin 27.4 pg (28.0-33.3); Mean Corpuscular Volume 87.8 fL (83.0-100.0); Mean Platelet Volume 9.2 fL (9.4-12.4); Monocytes # 0.7 K/mcL (0.0-1.3); Monocytes % 4.5 %; Neutrophils # 11.1 K/mcL (1.6-8.9); Platelet Count 286 K/mcL (140-400); Red Blood Count 4.42 M/mcL (4.19-5.50); Red Cell Distribution Width 18.4 % (11.5-14.5); Segmented Neutrophils % 77.5 %
[2017-05-10] MEDS ORDERED: Ketorolac 30 MG/ML VIAL IM ONE (19:53)
[2017-05-10 20:07] LABS: BUN/Creatinine Ratio 10 (6-26); Blood Urea Nitrogen 8 mg/dL (8-26); Calcium 8.6 mg/dL (8.6-10.8); Carbon Dioxide 23 mEq/L (19-29); Chloride 110 mEq/L (98-109); Ethanol 286 mg/dL (0-10); Glucose 91 mg/dL (70-99); Osmolality,Calculated 290 (280-300); Potassium 3.8 mEq/L (3.5-4.5); Sodium 141 mEq/L (136-145); eGFR For African Americans > 60 (> 60); eGFR For Non-African Americans > 60 (> 60)
[2017-05-10 20:08] LABS: Acetaminophen < 1.0 mcg/mL (10-30); Salicylate < 5.0 mg/dL (15-30)
[2017-05-10 20:27] LABS: Bilirubin,Urine Negative (Negative); Blood,Urine Negative (Negative); Clarity,Urine Clear (Clear); Color,Urine Yellow (Yellow); Glucose,Urine (UA) Normal (Normal); Ketones,Urine Negative (Negative); Leukocyte Esterase,Urine Trace (Negative); Nitrite,Urine Negative (Negative); Protein,Urine Negative (Neg-Trace); Specific Gravity,Urine 1.012 (1.010-1.025); Urobilinogen,Urine Normal (Normal)
[2017-05-10] MEDS ORDERED: *HR* FentaNYL (PF) 100 MCG/2 ML VIAL IM ONE (20:28)
[2017-05-10 20:30] LABS: Bacteria,Urine None Seen per hpf (None-Few); Hyaline Casts,Urine None Seen per lpf (None-Few); RBC,Urine 0-3 per hpf (0-3); Squamous Epithelial Cell,Urine Moderate per lpf (None-Few)
[2017-05-10 20:33] LABS: Amphetamine Screen,Urine Negative ng/mL (Cutoff=1000); Barbiturate Screen,Urine Negative ng/mL (Cutoff=200); Benzodiazepines Screen,Urine Negative ng/mL (Cutoff=200); Cannabinoid Screen,Urine Negative ng/mL (Cutoff = 50); Cocaine Screen,Urine Negative ng/mL (Cutoff= 300); Opiate Screen,Urine Negative ng/mL (Cutoff=300); Phencyclidine Screen,Urine Negative ng/mL (Cutoff=25)
[2017-05-10] MEDS ORDERED: Azithromycin 500 MG in D5% in Water 250 ML IVPB ONE (21:20)
[2017-05-10] MEDS ORDERED: CefTRIAXone 1,000 MG VIAL IM ONE (21:46)
[2017-05-10] MEDS ORDERED: Azithromycin 250 MG TABLET PO ONE (21:47)
[2017-05-10] MEDS ORDERED: Lidocaine -MPF 1% 2 ML VIAL ONE (22:00)
[2017-05-10] MEDS ORDERED: Ondansetron 4 MG/2 ML VIAL IVP PRN (22:21)
[2017-05-10] MEDS ORDERED: Naloxone 0.4 MG/ML INJ IVP PRN (22:21)
[2017-05-10] MEDS ORDERED: DESONIDE APPL TP PRN (22:24)
--- NOTE | 2017-05-10 22:31 | Internal Med History&Physical ---
Date of Encounter: 05/10/17 Time of Encounter: 23:30 Assessment and Plan (1) Suicidal ideation Current visit: Yes Status: Acute Suicidal ideation - high risk due to alcohol use, untreated bipolar disorder Patient called EMS stating that he had a gun to his head and was going to blow his brains out Patient has been pink slipped in the ED Blood alcohol level - 286 Continue IV fluids, supportive care, patient sitter Psychiatry consult, transfer to psych unit once medically stable (2) Alcohol dependence Current visit: No Status: Chronic Alcohol intoxication - blood alcohol level XXVI Alcohol abuse, dependence - patient drinks about 1 bottle of vodka daily Counseled about cessation IV fluids, continue IV thiamine, folic acid, IV Ativan when necessary for agitation Qualifiers: Substance use status: in withdrawal Complication of substance-induced condition: with unspecified complication Qualified Code(s): F10.239 - Alcohol dependence with withdrawal, unspecified (3) CAP (community acquired pneumonia) Current visit: Yes Status: Acute Suspicion for community-acquired pneumonia, bacterial, present on admission Continue IV empiric Rocephin and IV azithromycin, DuoNeb breathing treatment Cultures pending Chest x-ray - persistent blunting of right costophrenic angle probable pleural thickening or small pleural effusion (4) Bipolar disorder Current visit: Yes Status: Chronic Bipolar disorder - patient has stopped taking meds almost one year ago Continue Seroquel Consult psychiatry Qualifiers: Active/Remission status: currently active Current bipolar episode type: depressed Psychotic features: without psychotic features Qualified Code(s): F31.4 - Bipolar disorder, current episode depressed, severe, without psychotic features (5) Chronic schizophrenia Current visit: Yes Status: Acute Chronic schizophrenia - patient stopped taking medications about one year ago Continue Seroquel Consult psychiatry (6) COPD (chronic obstructive pulmonary disease) Current visit: No Status: Chronic COPD, stable - not in exacerbation Continue Symbicort, DuoNeb when necessary Qualifiers: COPD type: unspecified COPD Qualified Code(s): J44.9 - Chronic obstructive pulmonary disease, unspecified (7) Essential hypertension Current visit: No Status: Chronic Essential hypertension, controlled, Continue home meds, monitor (8) DVT prophylaxis Current visit: No Status: Acute Continue heparin subcutaneous Internal Medicine - H&P: HPI Chief complaint: Suicidal ideation Admitted From: Emergency Dept Plans for Post Hospital Care: Transfer Psych Facility History of present illness: Mr. Chen is a 62 year old male with past medical history of hypertension, COPD , anxiety, depression, bipolar disorder, schizophrenia and GERD. Patient presents to the ED for suicidal ideation. On examination patient is awake and alert. Not in any distress. Able to provide history. He is emotionally labile and seems anxious. No family members at bedside. Patient states he is he is an alcoholic and drinks 1 bottle of vodka daily. He states that over the past 3 days he has been feeling more depressed. States he has been drinking more alcohol than usual. Today he called the EMS stating that he had a gun to his head and was "going to blow his brains out". Patient has initially stated that "I just want to end it all". Denies homicidal ideation and no hallucinations. Patient states he is not taking any of his meds for his bipolar disorder or schizophrenia in almost one year. He is not followed up with a psychiatrist in almost one year. Patient complains of mild right sided abdominal pain. His injury or fall. No fever or shortness of breath or palpitations or headache or dizziness. Denies fever or vomiting or cough. He initially complained of some right-sided chest pain which seems to have improved. Initial evaluation in the ED revealed alcohol level at 26 and elevated white count. Chest x-ray shows blunting of the right costophrenic angle possible pleural effusion. EKG shows normal sinus rhythm. Patient has been pink slipped in the ED. Patient is being admitted for suicidal ideation and alcohol intoxication. He is at high risk considering alcohol use and uncontrolled bipolar disorder and schizophrenia. Patient will be on IV fluids and supportive care. We will restart his home medications. Psych consult is pending. Transfer to psych unit once patient medically stable. Patient has been explained about his condition and plan of care. Understood and agreed. No unanswered questions. CODE STATUS full code. Past Med Surg Social Fam HX - Past Medical History Medical history: COPD, GERD, hypertension, migraine, myocardial infarction, other Psychiatric history: anxiety, bipolar, depression, schizophrenia, previous psychiatric hospitalization, other - Past Surgical History Surgical History: appendectomy, cholecystectomy, other (History of partial colectomy and pancreas surgery) - Social History Smoking Status: Current every day smoker Smokeless Tobacco Status: No Alcohol use: heavy Drug use: none - Family History Mother Adopted: No Family Member Ethnicity: Non- Living Status: Still Living Hx Family Cardiac Disorders: Yes (htn) Hx Family Respiratory Disorders: No Hx Family Cancer: No Hx Family GI Disorders: No Hx Family Endocrine Disorder: No Hx Family Neuromuscular Disorders: Yes (Neuropathy) Hx Family Neurologic Disorders: No Hx Family HEENT Disorders: No Hx Family Autoimmune Disorders: No Father Living Status: Internal Medicine - H&P: Meds Albuterol Sulfate [Proair Hfa] 2 puff IH Q6H PRN 12/21/16 [History] Quetiapine Fumarate [Seroquel] 300 mg PO HS 12/21/16 [History] SUMAtriptan succinate [Imitrex] 6 mg SQ AD PRN 12/21/16 [History] Lipase/Protease/Amylase [Creon Dr 12,000 Units Capsule] 3 cap PO TIDWM 03/15/17 [History] Omeprazole [PriLOSEC] 20 mg PO DAILY 03/15/17 [History] Amitriptyline HCl 75 mg PO HS 03/27/17 [History] Amlodipine Besylate 10 mg PO DAILY 03/27/17 [History] Budesonide/Formoterol 160/4.5 [Symbicort 160/4.5] 1 puff IH BIDR 03/27/17 [ History] Desonide [Tridesilon] 1 appl TP BID PRN 03/27/17 [History] Divalproex (24 HR) [Depakote ER (24 HR)] 1,250 mg PO HS 03/27/17 [History] Folic Acid 2 mg PO DAILY 03/27/17 [History] Hydrocortisone 1% CREAM [Cortaid] 1 appl TP BID PRN 03/27/17 [History] Magnesium Oxide [Mag-Ox] 400 mg PO BID 03/27/17 [History] Thiamine (B-1) [Vitamin B-1] 100 mg PO BID 03/27/17 [History] traZODone [TraZODone] 50 mg PO TID 03/27/17 [History] Cholecalciferol (Vitamin D3) [Vitamin D3] 1,000 unit PO DAILY 04/23/17 [History] Diltiazem CD (24hr) [Cardizem CD] 240 mg PO DAILY 30 Days 04/29/17 [Rx] Docusate [Colace] 100 mg PO BID PRN #0 capsule 04/29/17 [Rx] LORazepam [Ativan] 0.5 mg PO TID PRN #10 tablet 04/29/17 [Rx] Nicotine Patch [Nicoderm] 14 mg TD DAILY 28 Days 04/29/17 [Rx] Allergies Buspirone [From BuSpar] Adverse Reaction (Verified 03/27/17 16:46) See Comments per [facility] list tramadol Adverse Reaction (Verified 03/27/17 16:46) See Comments per va list All Systems PM: A 10-system review of systems was performed and is negative for pertinent findings except as documented above in the HPI. - Constitutional Constitutional: fatigue, weakness, no fever(s) - EENT Eyes: no blurry vision - Cardiovascular Cardiovascular ROS IM: no chest pain, no dyspnea, no dyspnea on exertion, no edema, no lightheadedness, no orthopnea, no syncope - Respiratory Respiratory: no cough, no dyspnea, no dyspnea on exertion, no wheezing, no chest congestion - Gastrointestinal Gastrointestinal: abdominal pain (Mild right-sided abdominal pain), no bloating , no cramping, no diarrhea, no melena, no nausea, no vomiting - Genitourinary Genitourinary ROS male: no dysuria - Musculoskeletal Musculoskeletal ROS IM: no arthralgias - Neurological Neurological ROS: no abnormal gait, no abnormal speech, no dizziness, no focal weakness, no numbness, no tingling - Psychiatric Psychiatric: anxiety, depression, hopelessness, suicidal ideation - Constitutional Vitals: Temp Pulse Resp BP Pulse Ox 99.0 F 90 18 100/63 96 05/10/17 18:58 05/10/17 18:58 05/10/17 18:58 05/10/17 18:58 05/10/17 18:58 General appearance: Present: A&O X 3, no acute distress, answers questions appropriately Exam: Patient is emotionally labile, seems anxious - Head Head exam: Present: atraumatic - Eye Eye exam: Present: EOMI - ENT ENT exam: Present: mucous membranes dry - Neck Neck exam general surgery: Present: supple - Respiratory Respiratory exam: Present: CTAB. Absent: rales, rhonchi, stridor, wheezes, tachypnea - Cardiovascular Cardiovascular exam: Present: RRR, +S1, +S2 - GI/Abdominal GI/Abdominal exam: Present: soft, no peritoneal signs. Absent: firm, guarding, hernia, rigid, tenderness - Extremities Exam Extremities exam: Present: radial pulses palpable and symetrical. Absent: cyanotic, pedal edema, tenderness - Neurological Exam Neurological exam: Present: alert, oriented X3, no focal deficits. Absent: facial droop, speech deficit - Psychiatric Psychiatric exam: Present: anxious, suicidal ideation Internal Med - H&P Results - Labs CBC & Chem 7: 05/10/17 19:34 05/10/17 19:34
[2017-05-10] MEDS: Nicotine 14 MG PATCH.TD24 TD SCH (23:16)
[2017-05-10] MEDS: 0.9 % Sodium Chloride 1,000 ML IVC SCH (23:17)
[2017-05-10] MEDS: Divalproex (24 HR) 250 MG TABLET PO SCH (23:29)
[2017-05-10] MEDS: Thiamine (B-1) 100 MG in D5% in Water 50 ML IVPB SCH (23:29)
[2017-05-10] MEDS: *HR* LORazepam 2 MG/ML VIAL IVP PRN (23:29)
[2017-05-11 01:15] LABS: Basophils % 0.3 %; Eosinophils # 0.1 K/mcL (0.0-0.6); Eosinophils % 0.7 %; Hematocrit 38.7 % (37.5-50.1); Hemoglobin 11.5 g/dL (12.9-16.9); Immature Granulocytes % 0.3 % (0-4); Lymphocytes # 1.8 K/mcL (0.6-4.6); Lymphocytes % 20.5 %; Mean Corpuscular HGB Conc 29.7 g/dL (31.6-35.5); Mean Corpuscular Hemoglobin 26.1 pg (28.0-33.3); Mean Corpuscular Volume 87.8 fL (83.0-100.0); Mean Platelet Volume 8.9 fL (9.4-12.4); Monocytes # 0.3 K/mcL (0.0-1.3); Monocytes % 3.8 %; Neutrophils # 6.7 K/mcL (1.6-8.9); Platelet Count 262 K/mcL (140-400); Red Blood Count 4.41 M/mcL (4.19-5.50); Red Cell Distribution Width 18.3 % (11.5-14.5); Segmented Neutrophils % 74.4 %
[2017-05-11 01:19] LABS: INR 1.1; Prothrombin Time 11.8 Seconds (9.4-12.1)
[2017-05-11 01:33] LABS: Alanine Aminotransferase 43 Units/L (0-55); Albumin 3.2 g/dL (3.5-5.0); Albumin/Globulin Ratio 0.8 (1.1-2.2); Alkaline Phosphatase 95 Units/L (38-126); Aspartate Amino Transferase 55 Units/L (5-34); BUN/Creatinine Ratio 11 (6-26); Bilirubin,Total 0.3 mg/dL (0.2-1.2); Blood Urea Nitrogen 9 mg/dL (8-26); Calcium 8.6 mg/dL (8.6-10.8); Carbon Dioxide 20 mEq/L (19-29); Chloride 110 mEq/L (98-109); Globulin 4.1 g/dL (2.4-3.5); Glucose 113 mg/dL (70-99); Osmolality,Calculated 293 (280-300); Potassium 3.4 mEq/L (3.5-4.5); Sodium 142 mEq/L (136-145); Total Protein 7.3 g/dL (6.0-8.3); eGFR For African Americans > 60 (> 60); eGFR For Non-African Americans > 60 (> 60)
[2017-05-11] MEDS: Ipratropium/Albuterol Neb 3 ML IH SCH ×4 (03:59→22:20)
[2017-05-11] MEDS: *HR* LORazepam 2 MG/ML VIAL IVP PRN ×3 (05:31→21:41)
[2017-05-11] MEDS: Famotidine 20 MG/2 ML VIAL IVP SCH ×2 (05:32→18:02)
[2017-05-11] MEDS: Ketorolac 30 MG/ML VIAL IVP PRN ×2 (05:32→18:37)
[2017-05-11] MEDS: *HR* Heparin 5,000 UNIT/ML VIAL SQ SCH ×2 (05:32→18:02)
[2017-05-11] MEDS ORDERED: *HR* LORazepam 2 MG/ML VIAL IVP PRN (07:49)
[2017-05-11] MEDS: Nicotine 14 MG PATCH.TD24 TD SCH (08:56)
[2017-05-11] MEDS: Acetaminophen 325 MG TABLET PO PRN ×3 (08:56→21:48)
[2017-05-11] MEDS: Diltiazem CD (24hr) 240 MG CAPSULE PO SCH (08:57)
[2017-05-11] MEDS: Cholecalciferol (D-3) 1,000 UNIT TABLET PO SCH (08:57)
[2017-05-11] MEDS: Folic Acid 1 MG TABLET PO SCH (08:57)
[2017-05-11] MEDS: amLODIPine 5 MG TABLET PO SCH (08:57)
[2017-05-11] MEDS: Magnesium Oxide 400 MG TABLET PO SCH ×2 (08:58→21:12)
[2017-05-11] MEDS: traZODone 50 MG TABLET PO SCH ×3 (08:58→21:12)
[2017-05-11] MEDS: Thiamine (B-1) 100 MG in D5% in Water 50 ML IVPB SCH (08:58)
[2017-05-11] MEDS ORDERED: Azithromycin 250 MG in D5% in Water 250 ML IVPB SCH ×2 (09:00→12:30)
[2017-05-11] MEDS: Budesonide/Formoterol 160/4.5 MDI IH SCH ×2 (10:07→22:21)
[2017-05-11] MEDS ORDERED: Ondansetron 4 MG/2 ML VIAL IVP ONE (11:49)
[2017-05-11] MEDS ORDERED: Ketorolac 30 MG/ML VIAL IVP ONE (11:51)
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
[2017-05-11] MEDS ORDERED: Water for inj. (sterile) 10 ML IV ONE (13:23)
--- NOTE | 2017-05-11 16:22 | Electrocardiograph Report ---
[address] [address] Test Date: 2017-05-10 Pat Name: Lauri Chen Department: 103 Room: 3B Gender: M Pediatric Registered Nurse: KEDAR : 1955 Requested By: Jeancarlos Zavaleta Order Number: [id number] Reading MD: Red Covington MD Measurements Intervals [place] Rate: 90 P: 46 [place]: 159 QRS: -1 QRSD: 86 T: 56 QT: 342 QTc: 390 Interpretive Statements SINUS RHYTHM Electronically Signed On 05-11-2017 16:21:09 EDT by Red Covington MD
--- NOTE | 2017-05-11 17:54 | Consult Note ---
Date of Encounter: 05/11/17 Time of Encounter: 12:10 Assessment & Recommendation (1) Bipolar 1 disorder, depressed, moderate Current visit: Yes Status: Acute (2) Alcohol withdrawal Current visit: No Status: Acute Qualifiers: Complication of substance-induced condition: uncomplicated Qualified Code(s ): F10.230 - Alcohol dependence with withdrawal, uncomplicated (3) Alcohol use disorder Current visit: Yes Status: Acute History of Present Illness Requesting Physician: Bekah Johnson CNP Reason for consult: suicidal ideation and alcohol intoxication History of present illness: Mr. Chen is a 62 year old Single White male evaluated today for suicidal ideations and h/o bipolar and alcohol use disorder. as per notes patient called EMS stating he has gun to his head and was going to blow his brains out. Patient at present examined in his room , he was in his bed , able to give history , had tremors of both hands, somewhat anxious and restless. he has been drinking daily 1 liter of vodka for last 3 months as per him and has multiple hospitalizations for withdrawl stabilization since beginning of this year. he has been drinking since age 16 and excessive since last 1 year. He has h/o bipolar has been treated as per him at [facility] and had been going for 14 years off and on taking psych meds but none for more than a year, admits being feeling sad a lot , anxious, guilty, no motivation, decrease sleep and has no support except one friend. He at present denies any suicide ideation, states he does not even own a gun, he stated he would have killed himself if he wanted to , he needed help, denies any ideation to hurt others and no psychosis. CC: Bekah Johnson CNP Past Med Surg Social Fam HX - Past Medical History Medical history: COPD, GERD, hypertension, migraine, myocardial infarction, other - Past Psychiatric History Psychiatric history: Reports: anxiety, bipolar, other (alcohol use disorder) Family psychiatric history: Yes Family History of Suicide: None (history of substance abuse on paternal side of family.) - Past Surgical History Surgical History: appendectomy, cholecystectomy, other (History of partial colectomy and pancreas surgery) - Social History Smoking Status: Current every day smoker Smokeless Tobacco Status: No Alcohol use: heavy Drug use: none - Family History Mother Adopted: No Family Member Ethnicity: Non- Living Status: Still Living Hx Family Cardiac Disorders: Yes (htn) Hx Family Respiratory Disorders: No Hx Family Cancer: No Hx Family GI Disorders: No Hx Family Endocrine Disorder: No Hx Family Neuromuscular Disorders: Yes (Neuropathy) Hx Family Neurologic Disorders: No Hx Family HEENT Disorders: No Hx Family Autoimmune Disorders: No Father Living Status: Medications & Allergies Albuterol Sulfate [Proair Hfa] 2 puff IH Q6H PRN 12/21/16 [History] Quetiapine Fumarate [Seroquel] 300 mg PO HS 12/21/16 [History] SUMAtriptan succinate [Imitrex] 6 mg SQ AD PRN 12/21/16 [History] Lipase/Protease/Amylase [Creon Dr 12,000 Units Capsule] 3 cap PO TIDWM 03/15/17 [History] Omeprazole [PriLOSEC] 20 mg PO DAILY 03/15/17 [History] Amitriptyline HCl 75 mg PO HS 03/27/17 [History] Amlodipine Besylate 10 mg PO DAILY 03/27/17 [History] Budesonide/Formoterol 160/4.5 [Symbicort 160/4.5] 1 puff IH BIDR 03/27/17 [ History] Desonide [Tridesilon] 1 appl TP BID PRN 03/27/17 [History] Divalproex (24 HR) [Depakote ER (24 HR)] 1,250 mg PO HS 03/27/17 [History] Folic Acid 2 mg PO DAILY 03/27/17 [History] Hydrocortisone 1% CREAM [Cortaid] 1 appl TP BID PRN 03/27/17 [History] Magnesium Oxide [Mag-Ox] 400 mg PO BID 03/27/17 [History] Thiamine (B-1) [Vitamin B-1] 100 mg PO BID 03/27/17 [History] traZODone [TraZODone] 50 mg PO TID 03/27/17 [History] Cholecalciferol (Vitamin D3) [Vitamin D3] 1,000 unit PO DAILY 04/23/17 [History] Diltiazem CD (24hr) [Cardizem CD] 240 mg PO DAILY 30 Days 04/29/17 [Rx] Docusate [Colace] 100 mg PO BID PRN #0 capsule 04/29/17 [Rx] LORazepam [Ativan] 0.5 mg PO TID PRN #10 tablet 04/29/17 [Rx] Nicotine Patch [Nicoderm] 14 mg TD DAILY 28 Days 04/29/17 [Rx] Allergies Buspirone [From BuSpar] Adverse Reaction (Verified 05/11/17 12:41) See Comments ears ringing Review of Systems Psychiatric: Reports: anxiety, abnormal sleep pattern, difficulty concentrating , mood swings Mental Status Exam Patient orientation: Yes Time, Yes Place Level of alertness: Alert Patient appearance: Obese Behavior: nervous, anxious Psychomotor activity: Increased Eye contact: Minimal Contact Mood description: Depressed, Anxious, Irritable Affect description: congruent with mood Speech pattern: Coherent Speech volume: Loud Thought process: Circumstantial Thought content: Yes Intact Attention span: Unable to Sustain Attention Memory description: Recent Impaired Patient reliability: Questionable Historian Intelligence estimate: Average Judgment: Limited Insight: Minimal Results - Vital Signs Vital signs: Temp Pulse Resp BP Pulse Ox 98.2 F 98 18 144/91 97 05/11/17 14:54 05/11/17 14:54 05/11/17 14:54 05/11/17 14:54 05/11/17 14:54 - Labs Labs: Laboratory Last Values WBC 9.0 K/mcL (4.3-11.1) 05/11/17 00:37 RBC 4.41 M/mcL (4.19-5.50) 05/11/17 00:37 Hgb 11.5 g/dL (12.9-16.9) L 05/11/17 00:37 Hct 38.7 % (37.5-50.1) 05/11/17 00:37 MCV 87.8 fL (83.0-100.0) 05/11/17 00:37 MCH 26.1 pg (28.0-33.3) L 05/11/17 00:37 MCHC 29.7 g/dL (31.6-35.5) L 05/11/17 00:37 RDW 18.3 % (11.5-14.5) H 05/11/17 00:37 Plt Count 262 K/mcL (140-400) 05/11/17 00:37 MPV 8.9 fL (9.4-12.4) L 05/11/17 00:37 Immature Gran % 0.3 % (0-4) 05/11/17 00:37 Seg Neutrophils % 74.4 % 05/11/17 00:37 Lymphocytes % 20.5 % 05/11/17 00:37 Monocytes % 3.8 % 05/11/17 00:37 Eosinophils % 0.7 % 05/11/17 00:37 Basophils % 0.3 % 05/11/17 00:37 Neutrophils # 6.7 K/mcL (1.6-8.9) 05/11/17 00:37 Lymphocytes # 1.8 K/mcL (0.6-4.6) 05/11/17 00:37 Monocytes # 0.3 K/mcL (0.0-1.3) 05/11/17 00:37 Eosinophils # 0.1 K/mcL (0.0-0.6) 05/11/17 00:37 Basophils # 0.0 K/mcL (0.0-0.2) 05/11/17 00:37 PT 11.8 Seconds (9.4-12.1) 05/11/17 00:37 INR 1.1 05/11/17 00:37 Sodium 142 mEq/L (136-145) 05/11/17 00:37 Potassium 3.4 mEq/L (3.5-4.5) L 05/11/17 00:37 Chloride 110 mEq/L (98-109) H 05/11/17 00:37 Carbon Dioxide 20 mEq/L (19-29) 05/11/17 00:37 BUN 9 mg/dL (8-26) 05/11/17 00:37 Creatinine 0.84 mg/dL (0.72-1.25) 05/11/17 00:37 Est GFR ( Amer) > 60 (> 60) 05/11/17 00:37 Est GFR (Non-Af Amer) > 60 (> 60) 05/11/17 00:37 BUN/Creatinine Ratio 11 (6-26) 05/11/17 00:37 Glucose 113 mg/dL (70-99) H 05/11/17 00:37 POC Glucose 114 (58-89) H 05/11/17 12:05 Calculated Osmolality 293 (280-300) 05/11/17 00:37 Calcium 8.6 mg/dL (8.6-10.8) 05/11/17 00:37 Total Bilirubin 0.3 mg/dL (0.2-1.2) 05/11/17 00:37 AST 55 Units/L (5-34) H 05/11/17 00:37 ALT 43 Units/L (0-55) 05/11/17 00:37 Alkaline Phosphatase 95 Units/L (38-126) 05/11/17 00:37 Troponin I 0.00 ng/mL (0-0.03) 05/10/17 19:34 Serum Total Protein 7.3 g/dL (6.0-8.3) 05/11/17 00:37 Albumin 3.2 g/dL (3.5-5.0) L 05/11/17 00:37 Globulin 4.1 g/dL (2.4-3.5) H 05/11/17 00:37 Albumin/Globulin Ratio 0.8 (1.1-2.2) L 05/11/17 00:37 Urine Color Yellow (Yellow) 05/10/17 20:19 Urine Clarity Clear (Clear) 05/10/17 20:19 Urine pH 6.0 pH Units (5.0-8.0) 05/10/17 20:19 Ur Specific [place] 1.012 (1.010-1.025) 05/10/17 20:19 Urine Protein Negative mg/dL (Neg-Trace) 05/10/17 20:19 Urine Glucose (UA) Normal mg/dL (Normal) 05/10/17 20:19 Urine Ketones Negative mg/dL (Negative) 05/10/17 20:19 Urine Blood Negative (Negative) 05/10/17 20:19 Urine Nitrite Negative (Negative) 05/10/17 20:19 Urine Bilirubin Negative (Negative) 05/10/17 20:19 Urine Urobilinogen Normal mg/dL (Normal) 05/10/17 20:19 Ur Leukocyte Esterase Trace (Negative) H 05/10/17 20:19 Urine Microscopic RBC 0-3 per hpf (0-3) 05/10/17 20:19 Urine Microscopic WBC 3-5 per hpf (0-3) H 05/10/17 20:19 Ur Squamous Epith Cells Moderate per lpf (None-Few) H 05/10/17 20:19 Urine Bacteria None Seen per hpf (None-Few) 05/10/17 20:19 Hyaline Casts None Seen per lpf (None-Few) 05/10/17 20:19 Salicylates < 5.0 mg/dL (15-30) L 05/10/17 19:34 Urine Opiates Screen Negative ng/mL (Rlxmlb=625) 05/10/17 20:19 Acetaminophen < 1.0 mcg/mL (10-30) L 05/10/17 19:34 Ur Barbiturates Screen Negative ng/mL (Bihpjz=977) 05/10/17 20:19 Ur Phencyclidine Scrn Negative ng/mL (Cutoff=25) 05/10/17 20:19 Ur Amphetamines Screen Negative ng/mL (Yzffwe=7676) 05/10/17 20:19 U Benzodiazepines Scrn Negative ng/mL (Bttdbm=372) 05/10/17 20:19 Urine Cocaine Screen Negative ng/mL (Cutoff= 300) 05/10/17 20:19 U Marijuana (THC) Screen Negative ng/mL (Cutoff = 50) 05/10/17 20:19 Ethyl Alcohol 286 mg/dL (0-10) H 05/10/17 19:34 Consult Discharge Plan - Plan Additional Instructions: Patient at present not having suicidal ideation continue withdrawl stabilzation and medical stabilization . continue seroquel 300 mg hs. will recomend to increase depakote er to 1500 mg hs. continue elavil and trazodone. once medically stabilized will reaccess for psychiatric in patient . Thank you for consult. Referrals: NO,PCP [Primary Care Provider] -
[2017-05-11] MEDS: 0.9 % Sodium Chloride 1,000 ML IVC SCH ×2 (18:01→19:46)
[2017-05-11] MEDS: Divalproex (24 HR) 250 MG TABLET PO SCH (21:12)
[2017-05-12] MEDS: Ketorolac 30 MG/ML VIAL IVP PRN ×3 (00:11→16:29)
[2017-05-12] MEDS: *HR* LORazepam 2 MG/ML VIAL IVP PRN ×5 (03:42→20:25)
[2017-05-12] MEDS: 0.9 % Sodium Chloride 1,000 ML IVC SCH ×2 (03:46→16:27)
[2017-05-12 04:00] LABS: Basophils % 0.8 %; Eosinophils # 0.1 K/mcL (0.0-0.6); Eosinophils % 2.1 %; Hematocrit 34.5 % (37.5-50.1); Hemoglobin 10.6 g/dL (12.9-16.9); Immature Granulocytes % 0.3 % (0-4); Lymphocytes # 1.2 K/mcL (0.6-4.6); Lymphocytes % 30.8 %; Mean Corpuscular HGB Conc 30.7 g/dL (31.6-35.5); Monocytes # 0.2 K/mcL (0.0-1.3); Monocytes % 5.7 %; Platelet Count 215 K/mcL (140-400); Red Blood Count 3.92 M/mcL (4.19-5.50); Red Cell Distribution Width 17.7 % (11.5-14.5); Segmented Neutrophils % 60.3 %
[2017-05-12] MEDS: Acetaminophen/Butalbital/CaffeineTABLET PO PRN ×2 (04:02→20:04)
[2017-05-12 04:03] LABS: Neutrophils # 2.4 K/mcL (1.6-8.9)
[2017-05-12 04:13] LABS: BUN/Creatinine Ratio 12 (6-26); Blood Urea Nitrogen 10 mg/dL (8-26); Calcium 8.6 mg/dL (8.6-10.8); Carbon Dioxide 24 mEq/L (19-29); Chloride 108 mEq/L (98-109); Glucose 98 mg/dL (70-99); Magnesium 1.9 mg/dL (1.6-2.6); Osmolality,Calculated 289 (280-300); Potassium 3.8 mEq/L (3.5-4.5); Sodium 140 mEq/L (136-145); eGFR For African Americans > 60 (> 60); eGFR For Non-African Americans > 60 (> 60)
[2017-05-12] MEDS: Ipratropium/Albuterol Neb 3 ML IH SCH ×4 (04:16→21:31)
[2017-05-12] MEDS: Famotidine 20 MG/2 ML VIAL IVP SCH ×2 (05:50→18:28)
[2017-05-12] MEDS: *HR* Heparin 5,000 UNIT/ML VIAL SQ SCH ×2 (05:50→18:28)
[2017-05-12] MEDS: Cholecalciferol (D-3) 1,000 UNIT TABLET PO SCH (08:08)
[2017-05-12] MEDS: amLODIPine 5 MG TABLET PO SCH (08:08)
[2017-05-12] MEDS: Nicotine 14 MG PATCH.TD24 TD SCH (08:08)
[2017-05-12] MEDS: Folic Acid 1 MG TABLET PO SCH (08:09)
[2017-05-12] MEDS: Diltiazem CD (24hr) 240 MG CAPSULE PO SCH (08:09)
[2017-05-12] MEDS: traZODone 50 MG TABLET PO SCH ×3 (08:09→20:04)
[2017-05-12] MEDS: Magnesium Oxide 400 MG TABLET PO SCH ×2 (08:20→20:05)
[2017-05-12] MEDS ORDERED: Water for inj. (sterile) 10 ML IV ONE (08:21)
[2017-05-12] MEDS: Thiamine (B-1) 100 MG in D5% in Water 50 ML IVPB SCH (08:22)
[2017-05-12] MEDS: Budesonide/Formoterol 160/4.5 MDI IH SCH ×2 (10:30→21:31)
[2017-05-12] MEDS: Azithromycin 250 MG in D5% in Water 250 ML IVPB SCH (13:41)
[2017-05-12] MEDS: Gabapentin 300 MG CAPSULE PO SCH ×2 (15:01→20:05)
--- NOTE | 2017-05-12 17:12 | Internal Med Progress Note ---
Date of Encounter: 05/12/17 Time of Encounter: 10:00 - Assessment and plan (1) Alcohol intoxication Current Visit: Yes Status: Chronic Assessment and plan: Blood alcohol is 286. We will continue to monitor. IV fluids Monitor labs. Patient is more awake alert today. Qualifiers: Complication of substance-induced condition: with delirium Qualified Code(s ): F10.921 - Alcohol use, unspecified with intoxication delirium (2) Psychiatric disorder Current Visit: No Status: Chronic Assessment and plan: Psychiatry consult appreciated. Medication has been adjusted per psych recommendation. (3) History of alcohol abuse Current Visit: No Status: Chronic Assessment and plan: Place patient on CIWA protocol to prevent withdrawal. - Continue thiamine, folate treatment. (4) Suicidal ideation Current Visit: No Status: Acute Assessment and plan: Psychiatry consult saw patient. Patient denies suicidal ideas at this point. May reconsult when patient is medically stabilized. (5) Tobacco abuse Current Visit: Yes Status: Chronic Assessment and plan: We will discuss smoking cessation closer to discharge. (6) DVT prophylaxis Current Visit: No Status: Acute Assessment and plan: Heparin subcutaneously (7) COPD (chronic obstructive pulmonary disease) Current Visit: No Status: Chronic Assessment and plan: Mild exacerbation. Place patient on antibiotic. DuoNeb treatment Qualifiers: COPD type: unspecified COPD Qualified Code(s): J44.9 - Chronic obstructive pulmonary disease, unspecified (8) CAP (community acquired pneumonia) Current Visit: Yes Status: Acute Assessment and plan: Continue azithromycin and Rocephin. Patient has no shortness of breath, no cough. Symptoms has improved. Continue oxygen as needed. (9) Hypertension Current Visit: Yes Status: Acute Assessment and plan: Continue home medications. BP is stable. Qualifiers: Hypertension type: essential hypertension Qualified Code(s): I10 - Essential (primary) hypertension - Time Spent With Patient 25 - 35 minutes - Subjective Interval history: Patient is a 62-year-old male admitted for alcoholism, pneumonia, and suicidal idea. Past medical history is significant for alcoholism, bipolar disorder, chronic schizophrenia, hypertension and COPD. He was seen and examined. He complains of right lower rib pain, which he explains is having injury recently. Vital signs stable. No signs of alcohol withdrawal. - Constitutional Vitals: Temp Pulse Resp BP Pulse Ox 98.3 F 91 16 125/85 99 05/12/17 14:53 05/12/17 14:53 05/12/17 16:05 05/12/17 14:53 05/12/17 16:05 General appearance: Present: cooperative, A&O X 3, pleasant, no acute distress, answers questions appropriately - Head Head exam: Present: atraumatic, normocephalic - Eye Eye exam: Present: PERRL, conjuntiva pink, sclera anicteric Pupils: Present: PERRL - Neck Neck exam general surgery: Present: supple, trachea midline. Absent: lymphadenopathy - Respiratory Respiratory exam: Present: CTAB. Absent: accessory muscle use, rales, rhonchi, wheezes - Cardiovascular Cardiovascular exam: Present: RRR, +S1, +S2. Absent: diastolic murmur, gallop, rubs, systolic murmur - GI/Abdominal GI/Abdominal exam: Present: normal bowel sounds, soft, tenderness (Mild tenderness on right side, no rebound or guarding), no peritoneal signs. Absent : distended - Extremities Exam Extremities exam: Present: warm, radial pulses palpable and symetrical. Absent : calf tenderness, cyanotic, pedal edema - Neurological Exam Neurological exam: Present: CN II-XII intact, oriented X3, no focal deficits. Absent: pronater drift, facial droop, speech deficit - Skin Skin exam: Present: dry, intact Internal Medicine: Result - Labs CBC & Chem 7: 05/12/17 03:52 05/12/17 03:52 Labs: Short CBC 05/12/17 Range/Units 03:52 WBC 3.9 L D (4.3-11.1) K/mcL Hgb 10.6 L (12.9-16.9) g/dL Hct 34.5 L (37.5-50.1) % Plt Count 215 (140-400) K/mcL Neutrophils # 2.4 (1.6-8.9) K/mcL BMP 05/12/17 03:52 Sodium 140 Potassium 3.8 Chloride 108 Carbon Dioxide 24 BUN 10 Creatinine 0.81 Glucose 98 Calcium 8.6 - ABG Interpretation ABG results: PT/INR, D-dimer PT 11.8 Seconds (9.4-12.1) 05/11/17 00:37 Consult Discharge Plan - Plan Additional Instructions: Patient at present not having suicidal ideation continue withdrawl stabilzation and medical stabilization . continue seroquel 300 mg hs. will recomend to increase depakote er to 1500 mg hs. continue elavil and trazodone. once medically stabilized will reaccess for psychiatric in patient . Thank you for consult. Referrals: NO,PCP [Primary Care Provider] -
[2017-05-12] MEDS: Divalproex (24 HR) 250 MG TABLET PO SCH (20:04)
[2017-05-13] MEDS: Ketorolac 30 MG/ML VIAL IVP PRN ×2 (01:05→13:11)
[2017-05-13] MEDS: *HR* LORazepam 2 MG/ML VIAL IVP PRN ×5 (01:06→21:41)
[2017-05-13] MEDS: Ipratropium/Albuterol Neb 3 ML IH SCH ×4 (04:16→23:37)
[2017-05-13] MEDS: 0.9 % Sodium Chloride 1,000 ML IVC SCH (04:42)
[2017-05-13] MEDS: Famotidine 20 MG/2 ML VIAL IVP SCH ×2 (05:04→17:21)
[2017-05-13] MEDS: *HR* Heparin 5,000 UNIT/ML VIAL SQ SCH ×2 (05:04→17:21)
[2017-05-13 05:22] LABS: Basophils % 0.6 %; Eosinophils # 0.1 K/mcL (0.0-0.6); Eosinophils % 3.3 %; Hematocrit 36.5 % (37.5-50.1); Hemoglobin 11.2 g/dL (12.9-16.9); Immature Granulocytes % 0.3 % (0-4); Lymphocytes # 1.1 K/mcL (0.6-4.6); Lymphocytes % 32.4 %; Mean Corpuscular HGB Conc 30.7 g/dL (31.6-35.5); Mean Corpuscular Hemoglobin 27.5 pg (28.0-33.3); Mean Corpuscular Volume 89.7 fL (83.0-100.0); Mean Platelet Volume 9.5 fL (9.4-12.4); Monocytes # 0.2 K/mcL (0.0-1.3); Monocytes % 4.8 %; Platelet Count 187 K/mcL (140-400); Red Blood Count 4.07 M/mcL (4.19-5.50); Red Cell Distribution Width 17.9 % (11.5-14.5); Segmented Neutrophils % 58.6 %
[2017-05-13 05:44] LABS: BUN/Creatinine Ratio 11 (6-26); Blood Urea Nitrogen 10 mg/dL (8-26); Carbon Dioxide 25 mEq/L (19-29); Chloride 110 mEq/L (98-109); Glucose 140 mg/dL (70-99); Osmolality,Calculated 295 (280-300); Potassium 3.9 mEq/L (3.5-4.5); Sodium 142 mEq/L (136-145); eGFR For African Americans > 60 (> 60); eGFR For Non-African Americans > 60 (> 60)
[2017-05-13] MEDS: Magnesium Oxide 400 MG TABLET PO SCH ×2 (10:11→21:40)
[2017-05-13] MEDS: Folic Acid 1 MG TABLET PO SCH (10:11)
[2017-05-13] MEDS: traZODone 50 MG TABLET PO SCH ×3 (10:11→21:40)
[2017-05-13] MEDS: Cholecalciferol (D-3) 1,000 UNIT TABLET PO SCH (10:11)
[2017-05-13] MEDS: amLODIPine 5 MG TABLET PO SCH (10:12)
[2017-05-13] MEDS: Nicotine 14 MG PATCH.TD24 TD SCH (10:12)
[2017-05-13] MEDS: Diltiazem CD (24hr) 240 MG CAPSULE PO SCH (10:12)
[2017-05-13] MEDS: Gabapentin 300 MG CAPSULE PO SCH ×3 (10:12→21:40)
[2017-05-13] MEDS: Budesonide/Formoterol 160/4.5 MDI IH SCH ×2 (10:31→23:37)
[2017-05-13] MEDS: Thiamine (B-1) 100 MG in D5% in Water 50 ML IVPB SCH (13:02)
[2017-05-13] MEDS: Azithromycin 250 MG in D5% in Water 250 ML IVPB SCH (14:46)
[2017-05-13] MEDS: Acetaminophen/Butalbital/CaffeineTABLET PO PRN (14:56)
--- NOTE | 2017-05-13 17:08 | Internal Med Progress Note ---
Date of Encounter: 05/13/17 Time of Encounter: 10:00 - Assessment and plan (1) Alcohol intoxication Current Visit: Yes Status: Chronic Assessment and plan: Blood alcohol is 286 on admission. We will continue to monitor. Monitor labs. Patient is completely awake alert today. Dc IVF. Qualifiers: Complication of substance-induced condition: with delirium Qualified Code(s ): F10.921 - Alcohol use, unspecified with intoxication delirium (2) Psychiatric disorder Current Visit: No Status: Chronic Assessment and plan: Psychiatry consult appreciated. Medication has been adjusted per psych recommendation. (3) History of alcohol abuse Current Visit: No Status: Chronic Assessment and plan: Place patient on CIWA protocol to prevent withdrawal. - Continue thiamine, folate treatment. (4) Suicidal ideation Current Visit: No Status: Acute Assessment and plan: Psychiatry consult saw patient. Patient denies suicidal ideas at this point. May re-consult when patient is medically stabilized. (5) Tobacco abuse Current Visit: Yes Status: Chronic Assessment and plan: We will discuss smoking cessation closer to discharge. (6) DVT prophylaxis Current Visit: No Status: Acute Assessment and plan: Heparin subcutaneously (7) COPD (chronic obstructive pulmonary disease) Current Visit: No Status: Chronic Assessment and plan: No wheezing now. Place patient on antibiotic for pneumonia. DuoNeb treatment as needed Qualifiers: COPD type: unspecified COPD Qualified Code(s): J44.9 - Chronic obstructive pulmonary disease, unspecified (8) CAP (community acquired pneumonia) Current Visit: Yes Status: Acute Assessment and plan: Continue azithromycin and Rocephin. Patient has no shortness of breath, no cough. Symptoms has improved. Continue oxygen as needed. - Repeat a CT chest shows improvement of lung infiltrate and cavity. (9) Hypertension Current Visit: Yes Status: Acute Assessment and plan: Continue home medications. BP is stable. Qualifiers: Hypertension type: essential hypertension Qualified Code(s): I10 - Essential (primary) hypertension - Time Spent With Patient 25 - 35 minutes - Subjective Interval history: Patient is a 62-year-old male admitted for alcoholism, pneumonia, and suicidal idea. Past medical history is significant for alcoholism, bipolar disorder, chronic schizophrenia, hypertension and COPD. He was seen and examined. Pt has mild withdrawal symptoms last night with anxiety. Denies nausea or vomiting or diaphoresis. Vitals are stable. Repeated CAT scan shows right pleural thickening, right lung cavity shrink compare with previous chest CT. Resolution of opacity. Patient in no acute respiratory distress. SpO2 97% in RA. - Constitutional Vitals: Temp Pulse Resp BP Pulse Ox 98.3 F 98 18 135/88 97 05/13/17 15:01 05/13/17 15:01 05/13/17 15:01 05/13/17 15:01 05/13/17 15:01 General appearance: Present: cooperative, A&O X 3, pleasant, no acute distress, answers questions appropriately - Head Head exam: Present: atraumatic, normocephalic - Eye Eye exam: Present: PERRL, conjuntiva pink, sclera anicteric Pupils: Present: PERRL - Neck Neck exam general surgery: Present: supple, trachea midline. Absent: lymphadenopathy - Respiratory Respiratory exam: Present: CTAB. Absent: accessory muscle use, rales, rhonchi, wheezes - Cardiovascular Cardiovascular exam: Present: RRR, +S1, +S2. Absent: diastolic murmur, gallop, rubs, systolic murmur - GI/Abdominal GI/Abdominal exam: Present: normal bowel sounds, soft, no peritoneal signs. Absent: distended, tenderness - Extremities Exam Extremities exam: Present: warm, radial pulses palpable and symetrical. Absent : calf tenderness, cyanotic, pedal edema - Neurological Exam Neurological exam: Present: CN II-XII intact, oriented X3, no focal deficits. Absent: pronater drift, facial droop, speech deficit - Skin Skin exam: Present: dry, intact Internal Medicine: Result - Labs CBC & Chem 7: 05/13/17 05:05 05/13/17 05:05 Labs: Short CBC 05/13/17 Range/Units 05:05 WBC 3.3 L (4.3-11.1) K/mcL Hgb 11.2 L (12.9-16.9) g/dL Hct 36.5 L (37.5-50.1) % Plt Count 187 (140-400) K/mcL Neutrophils # 2.0 (1.6-8.9) K/mcL BMP 05/13/17 05:05 Sodium 142 Potassium 3.9 Chloride 110 H Carbon Dioxide 25 BUN 10 Creatinine 0.92 Glucose 140 H Calcium 9.0 - ABG Interpretation ABG results: PT/INR, D-dimer PT 11.8 Seconds (9.4-12.1) 05/11/17 00:37 - Impressions Impressions Chest CT 05/13/17 09:00 IMPRESSION: 1. There is trace right pleural effusion with pleural thickening. Cavitary lesion in the right lower lobe has decreased in size and is now completely fluid filled. 2. Multifocal bilateral ground-glass infiltrates have the appearance of an atypical infectious process. There has been interval improvement in appearance of diffuse small irregular lung opacities having a typical appearance of bronchiolitis 3. Right nephrolithiasis D/ / Shawn Melton MD / Shawn Melton MD Interpreting Provider: Shawn Melton MD Consult Discharge Plan - Plan Additional Instructions: Patient at present not having suicidal ideation continue withdrawl stabilzation and medical stabilization . continue seroquel 300 mg hs. will recomend to increase depakote er to 1500 mg hs. continue elavil and trazodone. once medically stabilized will reaccess for psychiatric in patient . Thank you for consult. Referrals: NO,PCP [Primary Care Provider] -
[2017-05-13] MEDS: Divalproex (24 HR) 250 MG TABLET PO SCH (21:40)
[2017-05-14] MEDS: *HR* LORazepam 2 MG/ML VIAL IVP PRN ×5 (00:10→21:30)
[2017-05-14] MEDS: Ketorolac 30 MG/ML VIAL IVP PRN ×2 (00:10→08:39)
[2017-05-14 05:04] LABS: Basophils % 1.1 %; Hemoglobin 11.6 g/dL (12.9-16.9); Mean Corpuscular Volume 89.6 fL (83.0-100.0); Platelet Count 165 K/mcL (140-400); Red Cell Distribution Width 17.7 % (11.5-14.5)
[2017-05-14 05:10] LABS: Eosinophils # 0.1 K/mcL (0.0-0.6); Eosinophils % 3.9 %; Hematocrit 38.6 % (37.5-50.1); Immature Granulocytes % 0.6 % (0-4); Immature Platelets 2.3 % (1.1-6.1); Lymphocytes # 1.1 K/mcL (0.6-4.6); Lymphocytes % 30.6 %; Mean Corpuscular HGB Conc 30.1 g/dL (31.6-35.5); Mean Corpuscular Hemoglobin 26.9 pg (28.0-33.3); Mean Platelet Volume 10.2 fL (9.4-12.4); Monocytes # 0.2 K/mcL (0.0-1.3); Monocytes % 5.3 %; Neutrophils # 2.1 K/mcL (1.6-8.9); Red Blood Count 4.31 M/mcL (4.19-5.50); Segmented Neutrophils % 58.5 %
[2017-05-14 05:17] LABS: BUN/Creatinine Ratio 14 (6-26); Blood Urea Nitrogen 12 mg/dL (8-26); Calcium 9.2 mg/dL (8.6-10.8); Carbon Dioxide 23 mEq/L (19-29); Chloride 109 mEq/L (98-109); Glucose 96 mg/dL (70-99); Osmolality,Calculated 288 (280-300); Sodium 139 mEq/L (136-145); eGFR For African Americans > 60 (> 60); eGFR For Non-African Americans > 60 (> 60)
[2017-05-14] MEDS: Ipratropium/Albuterol Neb 3 ML IH SCH ×4 (05:21→22:43)
[2017-05-14 05:28] LABS: Potassium 4.9 mEq/L (3.5-4.5)
[2017-05-14 05:49] LABS: Platelet Clumps Few (Not Present); Platelet Estimate Normal (Normal)
[2017-05-14] MEDS: *HR* Heparin 5,000 UNIT/ML VIAL SQ SCH ×2 (05:57→17:31)
[2017-05-14] MEDS: Famotidine 20 MG/2 ML VIAL IVP SCH (05:58)
[2017-05-14] MEDS: Magnesium Oxide 400 MG TABLET PO SCH ×2 (08:19→21:24)
[2017-05-14] MEDS: amLODIPine 5 MG TABLET PO SCH (08:20)
[2017-05-14] MEDS: Folic Acid 1 MG TABLET PO SCH (08:21)
[2017-05-14] MEDS: traZODone 50 MG TABLET PO SCH ×3 (08:21→21:24)
[2017-05-14] MEDS: Cholecalciferol (D-3) 1,000 UNIT TABLET PO SCH (08:21)
[2017-05-14] MEDS: Diltiazem CD (24hr) 240 MG CAPSULE PO SCH (08:21)
[2017-05-14] MEDS: Gabapentin 300 MG CAPSULE PO SCH ×3 (08:21→21:24)
[2017-05-14] MEDS: Nicotine 14 MG PATCH.TD24 TD SCH (08:22)
[2017-05-14] MEDS: Thiamine (B-1) 100 MG in D5% in Water 50 ML IVPB SCH (08:39)
[2017-05-14] MEDS: Budesonide/Formoterol 160/4.5 MDI IH SCH ×2 (09:16→22:43)
--- NOTE | 2017-05-14 09:20 | Consult Note ---
Date of Encounter: 05/14/17 Time of Encounter: 08:45 Assessment & Recommendation (1) Bipolar 1 disorder, depressed, moderate Current visit: Yes Status: Acute (2) Alcohol withdrawal Current visit: No Status: Acute Qualifiers: Complication of substance-induced condition: uncomplicated Qualified Code(s ): F10.230 - Alcohol dependence with withdrawal, uncomplicated (3) Alcohol use disorder Current visit: Yes Status: Acute History of Present Illness Requesting Physician: Dara Miranda MD History of present illness: Mr. Chen is a 62 year old male seen today for follow up consult, patient states sad about his situation , but denies any other significant depressive symptoms, he denies any suicidal ideation , no psychosis, no sulaiman. some insight in his alcohol use, denies cravings. continue same rx plan and recomend outpatient substance use treatment programme with psychiatric follow up. will discharge patient from psych. thanks for consult. CC: Dara Miranda MD Past Med Surg Social Fam HX - Past Medical History Medical history: COPD, GERD, hypertension, migraine, myocardial infarction, other - Past Surgical History Surgical History: appendectomy, cholecystectomy, other (History of partial colectomy and pancreas surgery) - Social History Smoking Status: Current every day smoker Smokeless Tobacco Status: No Alcohol use: heavy Drug use: none - Family History Mother Adopted: No Family Member Ethnicity: Non- Living Status: Still Living Hx Family Cardiac Disorders: Yes (htn) Hx Family Respiratory Disorders: No Hx Family Cancer: No Hx Family GI Disorders: No Hx Family Endocrine Disorder: No Hx Family Neuromuscular Disorders: Yes (Neuropathy) Hx Family Neurologic Disorders: No Hx Family HEENT Disorders: No Hx Family Autoimmune Disorders: No Father Living Status: Medications & Allergies Albuterol Sulfate [Proair Hfa] 2 puff IH Q6H PRN 12/21/16 [History] Quetiapine Fumarate [Seroquel] 300 mg PO HS 12/21/16 [History] SUMAtriptan succinate [Imitrex] 6 mg SQ AD PRN 12/21/16 [History] Lipase/Protease/Amylase [Ananya Kern 12,000 Units Capsule] 3 cap PO TIDWM 03/15/17 [History] Omeprazole [PriLOSEC] 20 mg PO DAILY 03/15/17 [History] Amitriptyline HCl 75 mg PO HS 03/27/17 [History] Amlodipine Besylate 10 mg PO DAILY 03/27/17 [History] Budesonide/Formoterol 160/4.5 [Symbicort 160/4.5] 1 puff IH BIDR 03/27/17 [ History] Desonide [Tridesilon] 1 appl TP BID PRN 03/27/17 [History] Divalproex (24 HR) [Depakote ER (24 HR)] 1,250 mg PO HS 03/27/17 [History] Folic Acid 2 mg PO DAILY 03/27/17 [History] Hydrocortisone 1% CREAM [Cortaid] 1 appl TP BID PRN 03/27/17 [History] Magnesium Oxide [Mag-Ox] 400 mg PO BID 03/27/17 [History] Thiamine (B-1) [Vitamin B-1] 100 mg PO BID 03/27/17 [History] traZODone [TraZODone] 50 mg PO TID 03/27/17 [History] Cholecalciferol (Vitamin D3) [Vitamin D3] 1,000 unit PO DAILY 04/23/17 [History] Diltiazem CD (24hr) [Cardizem CD] 240 mg PO DAILY 30 Days 04/29/17 [Rx] Docusate [Colace] 100 mg PO BID PRN #0 capsule 04/29/17 [Rx] LORazepam [Ativan] 0.5 mg PO TID PRN #10 tablet 04/29/17 [Rx] Nicotine Patch [Nicoderm] 14 mg TD DAILY 28 Days 04/29/17 [Rx] Allergies Buspirone [From BuSpar] Adverse Reaction (Verified 05/11/17 12:41) See Comments ears ringing Review of Systems Psychiatric: Reports: anxiety, abnormal sleep pattern, difficulty concentrating , mood swings Mental Status Exam Level of alertness: Alert Patient appearance: Appropriate Behavior: cooperative Psychomotor activity: Normal Eye contact: Maintains Eye Contact Mood description: Euthymic/stable Affect description: euthymic Speech pattern: Normal rate Speech volume: Normal Thought process: Intact Thought content: Yes Intact Attention span: Capable of Focused Attention Memory description: Grossly Intact Patient reliability: Questionable Historian Intelligence estimate: Average Judgment: Good Insight: Partial Results - Vital Signs Vital signs: Temp Pulse Resp BP Pulse Ox 96.1 F L 95 16 117/83 97 05/14/17 07:25 05/14/17 07:25 05/14/17 07:25 05/14/17 07:25 05/14/17 07:25 - Labs Labs: Laboratory Last Values WBC 3.6 K/mcL (4.3-11.1) L 05/14/17 04:48 RBC 4.31 M/mcL (4.19-5.50) 05/14/17 04:48 Hgb 11.6 g/dL (12.9-16.9) L 05/14/17 04:48 Hct 38.6 % (37.5-50.1) 05/14/17 04:48 MCV 89.6 fL (83.0-100.0) 05/14/17 04:48 MCH 26.9 pg (28.0-33.3) L 05/14/17 04:48 MCHC 30.1 g/dL (31.6-35.5) L 05/14/17 04:48 RDW 17.7 % (11.5-14.5) H 05/14/17 04:48 Plt Count 165 K/mcL (140-400) 05/14/17 04:48 MPV 10.2 fL (9.4-12.4) 05/14/17 04:48 Immature Gran % 0.6 % (0-4) 05/14/17 04:48 Seg Neutrophils % 58.5 % 05/14/17 04:48 Lymphocytes % 30.6 % 05/14/17 04:48 Monocytes % 5.3 % 05/14/17 04:48 Eosinophils % 3.9 % 05/14/17 04:48 Basophils % 1.1 % 05/14/17 04:48 Neutrophils # 2.1 K/mcL (1.6-8.9) 05/14/17 04:48 Lymphocytes # 1.1 K/mcL (0.6-4.6) 05/14/17 04:48 Monocytes # 0.2 K/mcL (0.0-1.3) 05/14/17 04:48 Eosinophils # 0.1 K/mcL (0.0-0.6) 05/14/17 04:48 Basophils # 0.0 K/mcL (0.0-0.2) 05/14/17 04:48 Platelet Estimate Normal (Normal) 05/14/17 04:48 Clumped Platelets Few (Not Present) A 05/14/17 04:48 Immature Plt Fraction 2.3 % (1.1-6.1) 05/14/17 04:48 PT 11.8 Seconds (9.4-12.1) 05/11/17 00:37 INR 1.1 05/11/17 00:37 Sodium 139 mEq/L (136-145) 05/14/17 04:48 Potassium 4.9 mEq/L (3.5-4.5) H D 05/14/17 04:48 Chloride 109 mEq/L (98-109) 05/14/17 04:48 Carbon Dioxide 23 mEq/L (19-29) 05/14/17 04:48 BUN 12 mg/dL (8-26) 05/14/17 04:48 Creatinine 0.83 mg/dL (0.72-1.25) 05/14/17 04:48 Est GFR ( Amer) > 60 (> 60) 05/14/17 04:48 Est GFR (Non-Af Amer) > 60 (> 60) 05/14/17 04:48 BUN/Creatinine Ratio 14 (6-26) 05/14/17 04:48 Glucose 96 mg/dL (70-99) 05/14/17 04:48 POC Glucose 171 (58-89) H 05/13/17 19:35 Calculated Osmolality 288 (280-300) 05/14/17 04:48 Calcium 9.2 mg/dL (8.6-10.8) 05/14/17 04:48 Magnesium 1.9 mg/dL (1.6-2.6) 05/12/17 03:52 Total Bilirubin 0.3 mg/dL (0.2-1.2) 05/11/17 00:37 AST 55 Units/L (5-34) H 05/11/17 00:37 ALT 43 Units/L (0-55) 05/11/17 00:37 Alkaline Phosphatase 95 Units/L (38-126) 05/11/17 00:37 Troponin I 0.00 ng/mL (0-0.03) 05/10/17 19:34 Serum Total Protein 7.3 g/dL (6.0-8.3) 05/11/17 00:37 Albumin 3.2 g/dL (3.5-5.0) L 05/11/17 00:37 Globulin 4.1 g/dL (2.4-3.5) H 05/11/17 00:37 Albumin/Globulin Ratio 0.8 (1.1-2.2) L 05/11/17 00:37 Urine Color Yellow (Yellow) 05/10/17 20:19 Urine Clarity Clear (Clear) 05/10/17 20:19 Urine pH 6.0 pH Units (5.0-8.0) 05/10/17 20:19 Ur Specific [place] 1.012 (1.010-1.025) 05/10/17 20:19 Urine Protein Negative mg/dL (Neg-Trace) 05/10/17 20:19 Urine Glucose (UA) Normal mg/dL (Normal) 05/10/17 20:19 Urine Ketones Negative mg/dL (Negative) 05/10/17 20:19 Urine Blood Negative (Negative) 05/10/17 20:19 Urine Nitrite Negative (Negative) 05/10/17 20:19 Urine Bilirubin Negative (Negative) 05/10/17 20:19 Urine Urobilinogen Normal mg/dL (Normal) 05/10/17 20:19 Ur Leukocyte Esterase Trace (Negative) H 05/10/17 20:19 Urine Microscopic RBC 0-3 per hpf (0-3) 05/10/17 20:19 Urine Microscopic WBC 3-5 per hpf (0-3) H 05/10/17 20:19 Ur Squamous Epith Cells Moderate per lpf (None-Few) H 05/10/17 20:19 Urine Bacteria None Seen per hpf (None-Few) 05/10/17 20:19 Hyaline Casts None Seen per lpf (None-Few) 05/10/17 20:19 Salicylates < 5.0 mg/dL (15-30) L 05/10/17 19:34 Urine Opiates Screen Negative ng/mL (Nsuxcd=064) 05/10/17 20:19 Acetaminophen < 1.0 mcg/mL (10-30) L 05/10/17 19:34 Ur Barbiturates Screen Negative ng/mL (Nydkkw=470) 05/10/17 20:19 Ur Phencyclidine Scrn Negative ng/mL (Cutoff=25) 05/10/17 20:19 Ur Amphetamines Screen Negative ng/mL (Zdihwj=2890) 05/10/17 20:19 U Benzodiazepines Scrn Negative ng/mL (Ezdygm=396) 05/10/17 20:19 Urine Cocaine Screen Negative ng/mL (Cutoff= 300) 05/10/17 20:19 U Marijuana (THC) Screen Negative ng/mL (Cutoff = 50) 05/10/17 20:19 Ethyl Alcohol 286 mg/dL (0-10) H 05/10/17 19:34 - Impressions Impressions Chest CT 05/13/17 09:00 IMPRESSION: 1. There is trace right pleural effusion with pleural thickening. Cavitary lesion in the right lower lobe has decreased in size and is now completely fluid filled. 2. Multifocal bilateral ground-glass infiltrates have the appearance of an atypical infectious process. There has been interval improvement in appearance of diffuse small irregular lung opacities having a typical appearance of bronchiolitis 3. Right nephrolithiasis D/ / Shawn Melton MD / Shawn Melton MD Interpreting Provider: Shawn Melton MD Consult Discharge Plan - Plan Additional Instructions: Patient at present not having suicidal ideation continue withdrawl stabilzation and medical stabilization . continue seroquel 300 mg hs. will recomend to increase depakote er to 1500 mg hs. continue elavil and trazodone. once medically stabilized will reaccess for psychiatric in patient . Thank you for consult. Referrals: NO,PCP [Primary Care Provider] -
[2017-05-14] MEDS: Azithromycin 250 MG in D5% in Water 250 ML IVPB SCH (11:07)
--- NOTE | 2017-05-14 17:13 | Internal Med Progress Note ---
Date of Encounter: 05/14/17 Time of Encounter: 10:00 - Assessment and plan (1) Alcohol intoxication Current Visit: Yes Status: Chronic Assessment and plan: Blood alcohol is 286 on admission. We will continue to monitor. Monitor labs. Patient is completely awake alert now. Qualifiers: Complication of substance-induced condition: with delirium Qualified Code(s ): F10.921 - Alcohol use, unspecified with intoxication delirium (2) Psychiatric disorder Current Visit: No Status: Chronic Assessment and plan: Psychiatry consult appreciated. Medication has been adjusted per psych recommendation. Pt needs f/u psych as outpatient. (3) History of alcohol abuse Current Visit: No Status: Chronic Assessment and plan: Place patient on CIWA protocol to prevent withdrawal. - Continue thiamine, folate treatment. - Taper down librium (4) Suicidal ideation Current Visit: No Status: Acute Assessment and plan: Psychiatry consult saw patient. Patient denies suicidal ideas at this point. Psych f/u appreciated. Pt need see psychiatrist as outpatient after discharge. (5) Tobacco abuse Current Visit: Yes Status: Chronic Assessment and plan: We will discuss smoking cessation closer to discharge. (6) DVT prophylaxis Current Visit: No Status: Acute Assessment and plan: Heparin subcutaneously (7) COPD (chronic obstructive pulmonary disease) Current Visit: No Status: Chronic Assessment and plan: No wheezing now. Place patient on antibiotic for pneumonia. DuoNeb treatment as needed Qualifiers: COPD type: unspecified COPD Qualified Code(s): J44.9 - Chronic obstructive pulmonary disease, unspecified (8) CAP (community acquired pneumonia) Current Visit: Yes Status: Acute Assessment and plan: Switch abx to po clindamycin, add probiotics to prevent C Diff. Patient has no shortness of breath, no cough. Symptoms has improved. Continue oxygen as needed. - Repeat a CT chest shows improvement of lung infiltrate and cavity. (9) Hypertension Current Visit: Yes Status: Acute Assessment and plan: Continue home medications. BP is stable. Qualifiers: Hypertension type: essential hypertension Qualified Code(s): I10 - Essential (primary) hypertension - Time Spent With Patient 25 - 35 minutes - Subjective Interval history: Patient is a 62-year-old male admitted for alcoholism, pneumonia, and suicidal idea. Past medical history is significant for alcoholism, bipolar disorder, chronic schizophrenia, hypertension and COPD. He was seen and examined. Pt has no withdrawal symptoms last night with anxiety. Denies nausea or vomiting or diaphoresis. C/o right pleural pain c/w CT chest finding. Vitals are stable. Switch abx to po clindamycin as pt possibly has anaerobic infection considering his alcoholism and possibility of aspiration. Psych f/u appreciated. Plan for placement. - Constitutional Vitals: Temp Pulse Resp BP Pulse Ox 97.6 F 97 17 144/88 93 05/14/17 16:37 05/14/17 16:37 05/14/17 16:37 05/14/17 16:37 05/14/17 16:37 General appearance: Present: cooperative, A&O X 3, pleasant, no acute distress, answers questions appropriately - Head Head exam: Present: atraumatic, normocephalic - Eye Eye exam: Present: PERRL, conjuntiva pink, sclera anicteric Pupils: Present: PERRL - Neck Neck exam general surgery: Present: supple, trachea midline. Absent: lymphadenopathy - Respiratory Respiratory exam: Present: CTAB. Absent: accessory muscle use, rales, rhonchi, wheezes - Cardiovascular Cardiovascular exam: Present: RRR, +S1, +S2. Absent: diastolic murmur, gallop, rubs, systolic murmur - GI/Abdominal GI/Abdominal exam: Present: normal bowel sounds, soft, no peritoneal signs. Absent: distended, tenderness - Extremities Exam Extremities exam: Present: warm, radial pulses palpable and symetrical. Absent : calf tenderness, cyanotic, pedal edema - Neurological Exam Neurological exam: Present: CN II-XII intact, oriented X3, no focal deficits. Absent: pronater drift, facial droop, speech deficit - Skin Skin exam: Present: dry, intact Internal Medicine: Result - Labs CBC & Chem 7: 05/14/17 04:48 05/14/17 04:48 Labs: Short CBC 05/14/17 Range/Units 04:48 WBC 3.6 L (4.3-11.1) K/mcL Hgb 11.6 L (12.9-16.9) g/dL Hct 38.6 (37.5-50.1) % Plt Count 165 (140-400) K/mcL Neutrophils # 2.1 (1.6-8.9) K/mcL BMP 05/14/17 04:48 Sodium 139 Potassium 4.9 H D Chloride 109 Carbon Dioxide 23 BUN 12 Creatinine 0.83 Glucose 96 Calcium 9.2 - ABG Interpretation ABG results: PT/INR, D-dimer PT 11.8 Seconds (9.4-12.1) 05/11/17 00:37 Consult Discharge Plan - Plan Additional Instructions: Patient at present not having suicidal ideation continue withdrawl stabilzation and medical stabilization . continue seroquel 300 mg hs. will recomend to increase depakote er to 1500 mg hs. continue elavil and trazodone. once medically stabilized will reaccess for psychiatric in patient . Thank you for consult. Referrals: NO,PCP [Primary Care Provider] -
[2017-05-14] MEDS: Famotidine 20 MG TABLET PO SCH (17:31)
[2017-05-14] MEDS: Lactobacillus 1 EACH CAP.SPRINK PO SCH (17:31)
[2017-05-14] MEDS: Divalproex (24 HR) 250 MG TABLET PO SCH (21:24)
[2017-05-15] MEDS: Ipratropium/Albuterol Neb 3 ML IH SCH ×2 (03:00→11:19)
[2017-05-15] MEDS: *HR* Heparin 5,000 UNIT/ML VIAL SQ SCH (05:56)
[2017-05-15 06:46] LABS: Eosinophils # 0.2 K/mcL (0.0-0.6); Eosinophils % 4.1 %; Hematocrit 39.1 % (37.5-50.1); Hemoglobin 11.7 g/dL (12.9-16.9); Immature Granulocytes % 0.5 % (0-4); Lymphocytes # 1.2 K/mcL (0.6-4.6); Lymphocytes % 29.3 %; Mean Corpuscular HGB Conc 29.9 g/dL (31.6-35.5); Mean Corpuscular Hemoglobin 26.6 pg (28.0-33.3); Mean Corpuscular Volume 88.9 fL (83.0-100.0); Mean Platelet Volume 9.2 fL (9.4-12.4); Monocytes # 0.2 K/mcL (0.0-1.3); Monocytes % 5.3 %; Neutrophils # 2.5 K/mcL (1.6-8.9); Platelet Count 171 K/mcL (140-400); Red Cell Distribution Width 17.6 % (11.5-14.5); Segmented Neutrophils % 59.8 %
[2017-05-15 07:00] LABS: BUN/Creatinine Ratio 18 (6-26); Blood Urea Nitrogen 15 mg/dL (8-26); Calcium 9.4 mg/dL (8.6-10.8); Carbon Dioxide 26 mEq/L (19-29); Chloride 106 mEq/L (98-109); Glucose 130 mg/dL (70-99); Osmolality,Calculated 291 (280-300); Potassium 4.1 mEq/L (3.5-4.5); Sodium 139 mEq/L (136-145); eGFR For African Americans > 60 (> 60); eGFR For Non-African Americans > 60 (> 60)
[2017-05-15] MEDS: Lactobacillus 1 EACH CAP.SPRINK PO SCH (08:28)
[2017-05-15] MEDS: amLODIPine 5 MG TABLET PO SCH (08:29)
[2017-05-15] MEDS: Folic Acid 1 MG TABLET PO SCH (08:29)
[2017-05-15] MEDS: traZODone 50 MG TABLET PO SCH (08:29)
[2017-05-15] MEDS: Nicotine 14 MG PATCH.TD24 TD SCH (08:29)
[2017-05-15] MEDS: *HR* LORazepam 2 MG/ML VIAL IVP PRN ×2 (08:29→11:12)
[2017-05-15] MEDS: Gabapentin 300 MG CAPSULE PO SCH (08:29)
[2017-05-15] MEDS: Cholecalciferol (D-3) 1,000 UNIT TABLET PO SCH (08:29)
[2017-05-15] MEDS: Ketorolac 30 MG/ML VIAL IVP PRN (08:30)
[2017-05-15] MEDS: Diltiazem CD (24hr) 240 MG CAPSULE PO SCH (08:30)
[2017-05-15] MEDS: Famotidine 20 MG TABLET PO SCH (08:30)
[2017-05-15] MEDS: Magnesium Oxide 400 MG TABLET PO SCH (08:30)
[2017-05-15] MEDS: Thiamine (B-1) 100 MG in D5% in Water 50 ML IVPB SCH (08:48)
[2017-05-15] MEDS: Budesonide/Formoterol 160/4.5 MDI IH SCH (11:20)
[2017-05-15 12:06] VITALS: BP 134/84
--- NOTE | 2017-05-15 12:21 | Discharge Summary ---
Date of Encounter: 05/15/17 Time of Encounter: 11:00 - Discharge Diagnosis (1) Alcohol intoxication Priority: Primary Status: Chronic Qualifiers: Complication of substance-induced condition: with delirium Qualified Code(s ): F10.921 - Alcohol use, unspecified with intoxication delirium (2) Psychiatric disorder Priority: Primary Status: Chronic (3) History of alcohol abuse Priority: Primary Status: Chronic (4) Suicidal ideation Priority: Primary Status: Acute (5) Tobacco abuse Priority: Secondary Status: Chronic (6) DVT prophylaxis Priority: Secondary Status: Acute (7) COPD (chronic obstructive pulmonary disease) Priority: Secondary Status: Chronic Qualifiers: COPD type: unspecified COPD Qualified Code(s): J44.9 - Chronic obstructive pulmonary disease, unspecified (8) CAP (community acquired pneumonia) Priority: Primary Status: Acute (9) Hypertension Priority: Secondary Status: Acute Qualifiers: Hypertension type: essential hypertension Qualified Code(s): I10 - Essential (primary) hypertension - Discharge Medications Prescriptions: Clindamycin [Cleocin] 300 mg PO Q8HR #42 Chlordiazepoxide [Librium] 25 mg PO BID #6 Divalproex (24 HR) [Depakote ER (24 HR)] 1,500 mg PO HS #120 Gabapentin [Neurontin] 300 mg PO TID #90 Lactobacillus [Culturelle] 2 each PO DAILY #60 Home Medications: Albuterol Sulfate [Proair Hfa] 2 puff IH Q6H PRN 12/21/16 [History] Quetiapine Fumarate [Seroquel] 300 mg PO HS 12/21/16 [History] SUMAtriptan succinate [Imitrex] 6 mg SQ AD PRN 12/21/16 [History] Lipase/Protease/Amylase [Creon Dr 12,000 Units Capsule] 3 cap PO TIDWM 03/15/17 [History] Omeprazole [PriLOSEC] 20 mg PO DAILY 03/15/17 [History] Amitriptyline HCl 75 mg PO HS 03/27/17 [History] Amlodipine Besylate 10 mg PO DAILY 03/27/17 [History] Budesonide/Formoterol 160/4.5 [Symbicort 160/4.5] 1 puff IH BIDR 03/27/17 [ History] Desonide [Tridesilon] 1 appl TP BID PRN 03/27/17 [History] Folic Acid 2 mg PO DAILY 03/27/17 [History] Hydrocortisone 1% CREAM [Cortaid] 1 appl TP BID PRN 03/27/17 [History] Magnesium Oxide [Mag-Ox] 400 mg PO BID 03/27/17 [History] Thiamine (B-1) [Vitamin B-1] 100 mg PO BID 03/27/17 [History] traZODone [TraZODone] 50 mg PO TID 03/27/17 [History] Cholecalciferol (Vitamin D3) [Vitamin D3] 1,000 unit PO DAILY 04/23/17 [History] Diltiazem CD (24hr) [Cardizem CD] 240 mg PO DAILY 30 Days 04/29/17 [Rx] Docusate [Colace] 100 mg PO BID PRN #0 capsule 04/29/17 [Rx] LORazepam [Ativan] 0.5 mg PO TID PRN #10 tablet 04/29/17 [Rx] Nicotine Patch [Nicoderm] 14 mg TD DAILY 28 Days 04/29/17 [Rx] Chlordiazepoxide [Librium] 25 mg PO BID #6 05/15/17 [Rx] Clindamycin [Cleocin] 300 mg PO Q8HR #42 05/15/17 [Rx] Divalproex (24 HR) [Depakote ER (24 HR)] 1,500 mg PO HS #120 05/15/17 [Rx] Gabapentin [Neurontin] 300 mg PO TID #90 05/15/17 [Rx] Lactobacillus [Culturelle] 2 each PO DAILY #60 05/15/17 [Rx] Allergies/Adverse Reactions: Allergies Buspirone [From BuSpar] Adverse Reaction (Verified 05/11/17 12:41) See Comments ears ringing Procedures/tests Complete & Pending: Procedures Performed prior 72 hours Category Date Time Status CT chest wo con [CT] Routine Cat Scan 05/13/17 09:00 Completed - Notes to Outpatient Provider 1. Continue clindamycin 300 by mouth 3 times a day for 7 more days. Please will follow-up with PCP and to see if needed further treatment. CT Scan shows right-sided cavity shrinked compatible with February 2017. 2. Home medication change: Add gabapentin 300 mg 3 times a day for neuropathy. Librium 25 twice a day for 3 more days (taper down). Depakote ER increased from 1250 mg to 1500mg by mouth daily per psychiatry recommendation. Date of admission: 05/10/17 22:21 Primary care physician: PCP NONE Consults: 05/10/17 22:27 Consult to Psychiatry [CONS] Routine Consulting Provider: Francesca Lara Reason for Consult: Suicidal ideation Call Completed: No 05/11/17 07:47 Consult to Invasive Line Access Team [CONS] Routine Reason for Consult: Limited access Line Type: EPIV 05/11/17 07:49 Consult to Kitchen Cleaner [CONS] Routine Reason for SW Consult: Discharge planning Discharging clinician: Dara Miranda Anticipated date of discharge: 05/15/17 - Patient Status Disposition: Home, Self-Care Condition: Good Functional capacity at discharge: independent ambulation Overall status at discharge: patient is progressing back to baseline - Discharge Instructions Instructions: Alcohol Intoxication (DC), Abuse of Alcohol (DC) Follow Up With: NONE,PCP [Primary Care Provider] - Additional Instructions: Patient at present not having suicidal ideation continue withdrawl stabilzation and medical stabilization . continue seroquel 300 mg hs. will recomend to increase depakote er to 1500 mg hs. continue elavil and trazodone. once medically stabilized will reaccess for psychiatric in patient . Thank you for consult. - Diet and Activity Activity: increase activity as tolerated Diet: low fat, low cholesterol, low salt diet Interval History: HPI: Mr. Chen is a 62 year old male with past medical history of hypertension, COPD , anxiety, depression, bipolar disorder, schizophrenia and GERD. Patient presents to the ED for suicidal ideation. On examination patient is awake and alert. Not in any distress. Able to provide history. He is emotionally labile and seems anxious. No family members at bedside. Patient states he is he is an alcoholic and drinks 1 bottle of vodka daily. He states that over the past 3 days he has been feeling more depressed. States he has been drinking more alcohol than usual. Today he called the EMS stating that he had a gun to his head and was "going to blow his brains out". Patient has initially stated that "I just want to end it all". Denies homicidal ideation and no hallucinations. Patient states he is not taking any of his meds for his bipolar disorder or schizophrenia in almost one year. He is not followed up with a psychiatrist in almost one year. Patient complains of mild right sided abdominal pain. His injury or fall. No fever or shortness of breath or palpitations or headache or dizziness. Denies fever or vomiting or cough. He initially complained of some right-sided chest pain which seems to have improved. Initial evaluation in the ED revealed alcohol level at 26 and elevated white count. Chest x-ray shows blunting of the right costophrenic angle possible pleural effusion. EKG shows normal sinus rhythm. Patient has been pink slipped in the ED. Patient is being admitted for suicidal ideation and alcohol intoxication. He is at high risk considering alcohol use and uncontrolled bipolar disorder and schizophrenia. Patient will be on IV fluids and supportive care. We will restart his home medications. Psych consult is pending. Transfer to psych unit once patient medically stable. Patient has been explained about his condition and plan of care. Understood and agreed. No unanswered questions. CODE STATUS full code. Hospital course: Mr. Chen is a 62 year old male admitted for alcoholism, pneumonia, suicidal idea. Patient was placed on one-to-one sitter, antibiotic, and CIWA protocol. Psychiatry consult was called and the saw patient, and follow-up patient. Patient denies a suicide idea laterly. Patient does not need inpatient psychiatry treatment per psych consult. Patient was treated with antibiotic, and his pneumonia has improved. Patient has minimal withdrawal symptoms, well controlled by medication. Now patient has been hospitalized for 5 days, no further withdrawal symptoms. I saw and examined the patient today. He is awake alert, oriented 3, complaining of minimal right-sided pleural pain. Vitals are stable. No fever. Oxygen saturation 95% in room air. Patient with discharge home with by mouth antibiotic and to follow-up with PCP as outpatient. Patient also needed to follow up with outpatient psychiatry, patient understand and agrees. Time spent discussing smoking cessation with patient: 3 to 10 minutes - Time Spent with Patient Total time spent providing and/or coordinating discharge services: 40 minutes Greater than 30 minutes - Constitutional Vitals: Temp Pulse Resp BP Pulse Ox 97.7 F 103 16 134/84 95 05/15/17 12:04 05/15/17 12:04 05/15/17 12:04 05/15/17 12:04 05/15/17 12:04 General appearance: Present: cooperative, A&O X 3, pleasant, no acute distress, answers questions appropriately - Head Head exam: Present: atraumatic, normocephalic - Eye Eye exam: Present: PERRL, conjuntiva pink, sclera anicteric Pupils: Present: PERRL - Neck Neck exam general surgery: Present: supple, trachea midline. Absent: lymphadenopathy - Respiratory Respiratory exam: Present: CTAB. Absent: accessory muscle use, rales, rhonchi, wheezes - Cardiovascular Cardiovascular exam: Present: RRR, +S1, +S2. Absent: diastolic murmur, gallop, rubs, systolic murmur - GI/Abdominal GI/Abdominal exam: Present: normal bowel sounds, soft, no peritoneal signs. Absent: distended, tenderness - Extremities Exam Extremities exam: Present: warm, radial pulses palpable and symetrical. Absent : calf tenderness, cyanotic, pedal edema - Neurological Exam Neurological exam: Present: CN II-XII intact, oriented X3, no focal deficits. Absent: pronater drift, facial droop, speech deficit - Skin Skin exam: Present: dry, intact
== END 2017-05-15 13:03 | disposition home or self-care (01) | DRG 896 ==
LOC: 3BNU 18:56 → EMEROO 18:56 → SUATTDRO 22:21 → 3BNU 23:21
PROVIDERS: ADMIT Family Medicine; ATTEND Internal Medicine

== ENCOUNTER 2017-06-03 17:48 | Inpatient (IN) ==
[2017-06-03] MEDS ORDERED: *HR* LORazepam 2 MG/ML VIAL IVP ONE ×4 (18:13→22:04)
--- NOTE | 2017-06-03 18:49 | Emergency Department Note ---
Disposition Clinical Impression: Tremor Alcohol dependence Qualifiers: Substance use status: in withdrawal Complication of substance-induced condition : with unspecified complication Qualified Code(s): F10.239 - Alcohol dependence with withdrawal, unspecified Alcohol withdrawal Qualifiers: Complication of substance-induced condition: with unspecified complication Qualified Code(s): F10.239 - Alcohol dependence with withdrawal, unspecified Disposition: Admitted As Inpatient Condition: Fair Referrals: NONE,PCP [Non-Partnered Physician] - Forms: ED Satisfaction Letter Time of Disposition: 21:40 Alcohol HPI - General Chief Complaint: ED Alcohol Abuse Stated Complaint: Alcohol withdrawl Time Seen by Provider: 06/03/17 17:53 Source: patient, EMS Limitations: no limitations Nursing Notes Reviewed: Yes Vital Signs Reviewed: Yes - History of Present Illness HPI Narrative: 62-year-old male history of alcohol abuse presenting for alcohol withdrawal. States he drinks about a 5th of vodka every day for past 30 years or so. Yesterday decided he was going to quit. Currently experiencing tremors started this afternoon. History of delirium tremens in the past. States his last drink was noon yesterday. Currently very tremulous. Denies any other complaints such as headache, chest pain, shortness of breath, abdominal pain, nausea or vomiting. Denies any suicidal or homicidal ideations. Reports seeing some spots but denies any other hallucinations. States been very stress lately he does live alone. He is alert and oriented person place time. Will get medical screening labs and likely need admission. Will reassess and reevaluates, disposition pending workup. Pt Subjective Complaint: alcohol withdrawal, alcohol dependence Last Drink: hours (ago) Alcohol Type: Liquor Chronic Alcohol Use: Yes Previous Visits for Alcohol Intoxication?: Yes Recent Trauma: No - Related Data Home Medications Medication Instructions Recorded Confirmed Albuterol Sulfate [Proair Hfa] 2 puff IH Q4H PRN 12/21/16 06/03/17 Quetiapine Fumarate [Seroquel] 300 mg PO HS 12/21/16 06/03/17 SUMAtriptan succinate [Imitrex] 6 mg SQ AD PRN 12/21/16 06/03/17 Lipase/Protease/Amylase [Creon Dr 3 cap PO TIDWM 03/15/17 06/03/17 12,000 Units Capsule] Omeprazole [PriLOSEC] 20 mg PO DAILY 03/15/17 06/03/17 Amitriptyline HCl 75 mg PO HS 03/27/17 06/03/17 Amlodipine Besylate 10 mg PO DAILY 03/27/17 06/03/17 Budesonide/Formoterol 160/4.5 1 puff IH BIDR 03/27/17 06/03/17 [Symbicort 160/4.5] Desonide [Tridesilon] 1 appl TP BID PRN 03/27/17 06/03/17 Folic Acid 2 mg PO DAILY 03/27/17 06/03/17 Hydrocortisone 1% CREAM [Cortaid] 1 appl TP BID PRN 03/27/17 06/03/17 Magnesium Oxide [Mag-Ox] 400 mg PO BID 03/27/17 06/03/17 Thiamine (B-1) [Vitamin B-1] 100 mg PO BID 03/27/17 06/03/17 traZODone [TraZODone] 50 mg PO TID 03/27/17 06/03/17 Cholecalciferol (Vitamin D3) 1,000 unit PO DAILY 04/23/17 06/03/17 [Vitamin D3] Cyanocobalamin (Vitamin B-12) 500 mcg PO DAILY 06/03/17 06/03/17 [Vitamin B-12] Divalproex (24 HR) [Depakote ER 1,250 mg PO HS 06/03/17 06/03/17 (24 HR)] Gabapentin [Neurontin] 600 mg PO TID 06/03/17 06/03/17 Ketoconazole Shampoo [Nizoral 1 appl TP 2XW 06/03/17 06/03/17 Shampoo] Lactobacillus [Culturelle] 1 each PO BID 06/03/17 06/03/17 Allergies Allergy/AdvReac Type Severity Reaction Status Date / Time Buspirone [From BuSpar] AdvReac See Verified 05/11/17 12:41 Comments tramadol AdvReac See Verified 06/03/17 22:13 Comments All systems ED: reviewed and negative except as stated. Review of Systems: As Per HPI Constitutional: Reports: chills, weakness. Denies: fever Cardiovascular: Reports: palpitations. Denies: chest pain Respiratory: Denies: cough, wheezes Gastrointestinal: Reports: nausea. Denies: abdominal pain, vomiting Genitourinary: Denies: urgency, dysuria Musculoskeletal: Denies: back pain, neck pain Integumentary: Denies: rash, abrasion, lesions Neurological: Reports: weakness. Denies: headache Past Medical History - Past Medical History Attestation: Yes The following information was validated with the patient. Source: patient Medical history: Reports: COPD, GERD, hypertension, migraine, myocardial infarction, other Surgical history: Reports: appendectomy, cholecystectomy, other (History of partial colectomy and pancreas surgery) Psychiatric history: Reports: anxiety, bipolar, other - Social History Smoking Status: Current every day smoker Smokeless Tobacco Status: No Alcohol use: Reports: heavy Drug use: Reports: none Physical Exam - General Limitations: no limitations General appearance: alert, anxious, in distress, other (tremulous) - Head Head exam: atraumatic, normocephalic, normal inspection - Eye Eye exam: Present: normal appearance, PERRL, EOMI - ENT ENT exam: normal exam, normal oropharynx, mucous membranes moist - Neck Neck exam: Present: normal inspection, full ROM, trachea midline - Chest Chest inspection: Present: normal inspection, symmetric chest wall rise - Respiratory Respiratory exam: Present: normal lung sounds bilaterally - Cardiovascular Cardiovascular exam: Present: regular rate, normal rhythm, tachycardia, normal heart sounds - Expanded Cardiovascular Exam Peripheral pulses: 2+: radial (R), radial (L) - Abdominal Exam Abdominal exam: Present: soft, Non-Tender, normal bowel sounds. Absent: tenderness, distention, guarding, rebound, rigidity - Extremities Exam Extremities exam: Present: normal inspection, full ROM, normal capillary refill. Absent: tenderness, pedal edema, calf tenderness - Back Exam Back exam: Present: normal inspection, full ROM. Absent: tenderness - Neurological Exam Neurological exam: Present: alert, oriented X3 - Psychiatric Psychiatric exam: Present: agitated, anxious - Skin Skin exam: Present: warm, dry, intact, normal color Course - Reevaluation(s) Reevaluation #1: Patient continues to be tremulous after a total of 3 mg Ativan with multiple doses. His ethanol level is 22. Urine is positive for benzo. Patient was unable to initially urinate required straight catheterization after receiving benzo. He has a slight elevation in his liver enzymes and bilirubin. He does not have any abdominal tenderness it continues to be soft and nondistended. Due to his severe symptoms he would benefit from admission and monitor for alcohol withdrawal concerning for delirium tremens. Patient is in agreement with this plan. Impression is alcohol withdrawal. He remains alert oriented to person place and time. - Consultations Consultation #1: Spoke with on-call hospitalist lary Canchola to admit for alcohol withdrawal and tremors. Due to the continuous tremors recommends giving a dose of 50 mg Librium at this time. He remains tachycardic. EKG was performed which shows sinus tachycardia 114 bpm. Otherwise no other orders at this time. Time: 21:52 Vital Signs Temperature 98.5 F 06/03/17 17:49 Pulse Rate 123 06/03/17 17:49 Respiratory Rate 18 06/03/17 17:49 Blood Pressure 128/101 06/03/17 17:49 O2 Sat by Pulse Oximetry 96 06/03/17 17:49 Temperature 98.5 F 06/03/17 17:49 Pulse Rate 110 06/03/17 22:40 Respiratory Rate 20 06/03/17 22:40 Blood Pressure 147/108 06/03/17 22:40 O2 Sat by Pulse Oximetry 95 06/03/17 22:40 Oxygen Delivery Oxygen Delivery Room Air Alcohol - Medical Records Medical records reviewed: Yes I reviewed the patient's medical records. - Lab Data Lab results reviewed: Yes I reviewed the patient's lab results. Result diagrams: 06/03/17 19:10 06/03/17 19:10 Lab Results 06/03/17 06/03/17 06/03/17 Range/Units 19:10 19:10 19:10 WBC 6.4 (4.3-11.1) K/mcL RBC 5.56 H (4.19-5.50) M/mcL Hgb 14.9 (12.9-16.9) g/dL Hct 45.7 (37.5-50.1) % MCV 82.2 L D (83.0-100.0) fL MCH 26.8 L (28.0-33.3) pg MCHC 32.6 (31.6-35.5) g/dL RDW 16.0 H (11.5-14.5) % Plt Count 157 (140-400) K/mcL MPV 9.7 (9.4-12.4) fL Immature Gran % 0.2 (0-4) % Seg Neutrophils % 58.6 % Lymphocytes % 30.6 % Monocytes % 9.9 % Eosinophils % 0.2 % Basophils % 0.5 % Neutrophils # 3.7 (1.6-8.9) K/mcL Lymphocytes # 2.0 (0.6-4.6) K/mcL Monocytes # 0.6 (0.0-1.3) K/mcL Eosinophils # 0.0 (0.0-0.6) K/mcL Basophils # 0.0 (0.0-0.2) K/mcL PT 11.4 (9.4-12.1) Seconds INR 1.1 APTT 29.2 (26.0-36.0) Seconds Sodium 137 (136-145) mEq/L Potassium 3.4 L (3.5-4.5) mEq/L Chloride 101 (98-109) mEq/L Carbon Dioxide 16 L (19-29) mEq/L BUN 9 (8-26) mg/dL Creatinine 0.86 (0.72-1.25) mg/dL Est GFR ( Amer) > 60 (> 60) Est GFR (Non-Af Amer) > 60 (> 60) BUN/Creatinine Ratio 10 (6-26) Glucose 92 (70-99) mg/dL Calculated Osmolality 282 (280-300) Calcium 10.1 (8.6-10.8) mg/dL Total Bilirubin 1.5 H (0.2-1.2) mg/dL Direct Bilirubin 0.7 H (0.0-0.5) mg/dL Indirect Bilirubin 0.8 (0.0-1.2) mg/dL AST 76 H (5-34) Units/L ALT 44 (0-55) Units/L Alkaline Phosphatase 122 (38-126) Units/L Serum Total Protein 9.4 H (6.0-8.3) g/dL Albumin 4.7 (3.5-5.0) g/dL Globulin 4.7 H (2.4-3.5) g/dL Albumin/Globulin Ratio 1.0 L (1.1-2.2) Urine Color (Yellow) Urine Clarity (Clear) Urine pH (5.0-8.0) pH Units Ur Specific Calvin (1.010-1.025) Urine Protein (Neg-Trace) mg/dL Urine Glucose (UA) (Normal) mg/dL Urine Ketones (Negative) mg/dL Urine Blood (Negative) Urine Nitrite (Negative) Urine Bilirubin (Negative) Urine Urobilinogen (Normal) mg/dL Ur Leukocyte Esterase (Negative) Urine Microscopic RBC (0-3) per hpf Urine Microscopic WBC (0-3) per hpf Ur Squamous Epith Cells (None-Few) per lpf Urine Bacteria (None-Few) per hpf Hyaline Casts (None-Few) per lpf Ur Culture Indicated? (NO) Urine Opiates Screen (Kgffak=307) ng/mL Ur Barbiturates Screen (Lmwiuz=287) ng/mL Ur Phencyclidine Scrn (Cutoff=25) ng/mL Ur Amphetamines Screen (Rirpio=3223) ng/mL U Benzodiazepines Scrn (Uqedns=221) ng/mL Urine Cocaine Screen (Cutoff= 300) ng/mL U Marijuana (THC) Screen (Cutoff = 50) ng/mL Ethyl Alcohol 22 H (0-10) mg/dL 06/03/17 06/03/17 Range/Units 21:00 21:00 WBC (4.3-11.1) K/mcL RBC (4.19-5.50) M/mcL Hgb (12.9-16.9) g/dL Hct (37.5-50.1) % MCV (83.0-100.0) fL MCH (28.0-33.3) pg MCHC (31.6-35.5) g/dL RDW (11.5-14.5) % Plt Count (140-400) K/mcL MPV (9.4-12.4) fL Immature Gran % (0-4) % Seg Neutrophils % % Lymphocytes % % Monocytes % % Eosinophils % % Basophils % % Neutrophils # (1.6-8.9) K/mcL Lymphocytes # (0.6-4.6) K/mcL Monocytes # (0.0-1.3) K/mcL Eosinophils # (0.0-0.6) K/mcL Basophils # (0.0-0.2) K/mcL PT (9.4-12.1) Seconds INR APTT (26.0-36.0) Seconds Sodium (136-145) mEq/L Potassium (3.5-4.5) mEq/L Chloride (98-109) mEq/L Carbon Dioxide (19-29) mEq/L BUN (8-26) mg/dL Creatinine (0.72-1.25) mg/dL Est GFR ( Amer) (> 60) Est GFR (Non-Af Amer) (> 60) BUN/Creatinine Ratio (6-26) Glucose (70-99) mg/dL Calculated Osmolality (280-300) Calcium (8.6-10.8) mg/dL Total Bilirubin (0.2-1.2) mg/dL Direct Bilirubin (0.0-0.5) mg/dL Indirect Bilirubin (0.0-1.2) mg/dL AST (5-34) Units/L ALT (0-55) Units/L Alkaline Phosphatase (38-126) Units/L Serum Total Protein (6.0-8.3) g/dL Albumin (3.5-5.0) g/dL Globulin (2.4-3.5) g/dL Albumin/Globulin Ratio (1.1-2.2) Urine Color Dark Yellow (Yellow) Urine Clarity Clear (Clear) Urine pH 7.0 (5.0-8.0) pH Units Ur Specific Calvin 1.019 (1.010-1.025) Urine Protein 100 H (Neg-Trace) mg/dL Urine Glucose (UA) Normal (Normal) mg/dL Urine Ketones 80 H (Negative) mg/dL Urine Blood Negative (Negative) Urine Nitrite Negative (Negative) Urine Bilirubin Small H (Negative) Urine Urobilinogen Normal (Normal) mg/dL Ur Leukocyte Esterase Trace H (Negative) Urine Microscopic RBC 5-15 H (0-3) per hpf Urine Microscopic WBC 0-3 (0-3) per hpf Ur Squamous Epith Cells Moderate H (None-Few) per lpf Urine Bacteria None Seen (None-Few) per hpf Hyaline Casts None Seen (None-Few) per lpf Ur Culture Indicated? YES A (NO) Urine Opiates Screen Negative (Tfnedv=224) ng/mL Ur Barbiturates Screen Negative (Wmxczp=147) ng/mL Ur Phencyclidine Scrn Negative (Cutoff=25) ng/mL Ur Amphetamines Screen Negative (Skdxrj=1627) ng/mL U Benzodiazepines Scrn Positive H (Sgwexz=021) ng/mL Urine Cocaine Screen Negative (Cutoff= 300) ng/mL U Marijuana (THC) Screen Negative (Cutoff = 50) ng/mL Ethyl Alcohol (0-10) mg/dL - EKG Data EKG attestation: Yes I reviewed and interpreted this EKG. EKG results narrative: EKG performed 2238 sinus tachycardia 114 bpm, good R-R wave progression, normal axis, there are no ST elevations or depressions, no T-wave inversions. Intervals are within normal limits [place] interval 177 QRS 78 QT QTC 325 392. There is a lot of baseline artifact likely from his tremors. Compared to old EKG performed 05/10/2017 shows consistent findings of sinus rhythm. No acute ischemic changes.
[2017-06-03 19:21] LABS: Basophils % 0.5 %; Eosinophils % 0.2 %; Hematocrit 45.7 % (37.5-50.1); Hemoglobin 14.9 g/dL (12.9-16.9); Immature Granulocytes % 0.2 % (0-4); Lymphocytes % 30.6 %; Mean Corpuscular HGB Conc 32.6 g/dL (31.6-35.5); Mean Corpuscular Hemoglobin 26.8 pg (28.0-33.3); Mean Platelet Volume 9.7 fL (9.4-12.4); Monocytes # 0.6 K/mcL (0.0-1.3); Monocytes % 9.9 %; Neutrophils # 3.7 K/mcL (1.6-8.9); Platelet Count 157 K/mcL (140-400); Red Blood Count 5.56 M/mcL (4.19-5.50); Segmented Neutrophils % 58.6 %
[2017-06-03 19:25] LABS: INR 1.1; Prothrombin Time 11.4 Seconds (9.4-12.1)
[2017-06-03] MEDS ORDERED: Ondansetron 4 MG/2 ML VIAL IVP ONE ×2 (19:25→22:22)
[2017-06-03 19:27] LABS: Mean Corpuscular Volume 82.2 fL (83.0-100.0)
[2017-06-03 19:28] LABS: Activated Partial Thrombo Time 29.2 Seconds (26.0-36.0)
[2017-06-03 19:34] LABS: Alanine Aminotransferase 44 Units/L (0-55); Albumin 4.7 g/dL (3.5-5.0); Alkaline Phosphatase 122 Units/L (38-126); Aspartate Amino Transferase 76 Units/L (5-34); BUN/Creatinine Ratio 10 (6-26); Bilirubin,Direct 0.7 mg/dL (0.0-0.5); Bilirubin,Indirect 0.8 mg/dL (0.0-1.2); Bilirubin,Total 1.5 mg/dL (0.2-1.2); Blood Urea Nitrogen 9 mg/dL (8-26); Calcium 10.1 mg/dL (8.6-10.8); Carbon Dioxide 16 mEq/L (19-29); Chloride 101 mEq/L (98-109); Ethanol 22 mg/dL (0-10); Globulin 4.7 g/dL (2.4-3.5); Glucose 92 mg/dL (70-99); Osmolality,Calculated 282 (280-300); Potassium 3.4 mEq/L (3.5-4.5); Sodium 137 mEq/L (136-145); Total Protein 9.4 g/dL (6.0-8.3); eGFR For African Americans > 60 (> 60); eGFR For Non-African Americans > 60 (> 60)
[2017-06-03 21:07] LABS: Bilirubin,Urine Small (Negative); Blood,Urine Negative (Negative); Clarity,Urine Clear (Clear); Color,Urine Dark Yellow (Yellow); Glucose,Urine (UA) Normal (Normal); Ketones,Urine 80 mg/dL (Negative); Leukocyte Esterase,Urine Trace (Negative); Nitrite,Urine Negative (Negative); Protein,Urine 100 mg/dL (Neg-Trace); Specific Gravity,Urine 1.019 (1.010-1.025); Urobilinogen,Urine Normal (Normal)
[2017-06-03 21:08] LABS: Bacteria,Urine None Seen per hpf (None-Few); Hyaline Casts,Urine None Seen per lpf (None-Few); Squamous Epithelial Cell,Urine Moderate per lpf (None-Few); WBC,Urine 0-3 per hpf (0-3)
[2017-06-03 21:15] LABS: Amphetamine Screen,Urine Negative ng/mL (Cutoff=1000); Barbiturate Screen,Urine Negative ng/mL (Cutoff=200); Benzodiazepines Screen,Urine Positive ng/mL (Cutoff=200); Cannabinoid Screen,Urine Negative ng/mL (Cutoff = 50); Cocaine Screen,Urine Negative ng/mL (Cutoff= 300); Opiate Screen,Urine Negative ng/mL (Cutoff=300); Phencyclidine Screen,Urine Negative ng/mL (Cutoff=25)
--- NOTE | 2017-06-03 21:43 | Emergency Department Note ---
Disposition Clinical Impression: Tremor Alcohol dependence Qualifiers: Substance use status: in withdrawal Complication of substance-induced condition : with unspecified complication Qualified Code(s): F10.239 - Alcohol dependence with withdrawal, unspecified Alcohol withdrawal Qualifiers: Complication of substance-induced condition: with unspecified complication Qualified Code(s): F10.239 - Alcohol dependence with withdrawal, unspecified Disposition: Admitted As Inpatient Condition: Fair Referrals: NONE,PCP [Non-Partnered Physician] - Forms: ED Satisfaction Letter General Adult HPI - General Chief complaint: ED Alcohol Abuse Stated complaint: Alcohol withdrawl Time Seen by Provider: 06/03/17 17:53 Source: patient, EMS Limitations: no limitations - History of Present Illness Pain Scale: 10 - Related Data Home Medications Medication Instructions Recorded Confirmed Albuterol Sulfate [Proair Hfa] 2 puff IH Q6H PRN 12/21/16 04/23/17 Quetiapine Fumarate [Seroquel] 300 mg PO HS 12/21/16 04/23/17 SUMAtriptan succinate [Imitrex] 6 mg SQ AD PRN 12/21/16 04/23/17 Lipase/Protease/Amylase [Creon Dr 3 cap PO TIDWM 03/15/17 05/11/17 12,000 Units Capsule] Omeprazole [PriLOSEC] 20 mg PO DAILY 03/15/17 04/23/17 Amitriptyline HCl 75 mg PO HS 03/27/17 04/23/17 Amlodipine Besylate 10 mg PO DAILY 03/27/17 05/11/17 Budesonide/Formoterol 160/4.5 1 puff IH BIDR 03/27/17 04/23/17 [Symbicort 160/4.5] Desonide [Tridesilon] 1 appl TP BID PRN 03/27/17 04/23/17 Folic Acid 2 mg PO DAILY 03/27/17 04/23/17 Hydrocortisone 1% CREAM [Cortaid] 1 appl TP BID PRN 03/27/17 04/23/17 Magnesium Oxide [Mag-Ox] 400 mg PO BID 03/27/17 04/23/17 Thiamine (B-1) [Vitamin B-1] 100 mg PO BID 03/27/17 04/23/17 traZODone [TraZODone] 50 mg PO TID 03/27/17 04/23/17 Cholecalciferol (Vitamin D3) 1,000 unit PO DAILY 04/23/17 05/11/17 [Vitamin D3] Previous Rx's Medication Instructions Recorded Diltiazem CD (24hr) [Cardizem CD] 240 mg PO DAILY 30 Days 04/29/17 Docusate [Colace] 100 mg PO BID PRN #0 capsule 04/29/17 LORazepam [Ativan] 0.5 mg PO TID PRN #10 tablet 04/29/17 Nicotine Patch [Nicoderm] 14 mg TD DAILY 28 Days 04/29/17 Chlordiazepoxide [Librium] 25 mg PO BID #6 05/15/17 Clindamycin [Cleocin] 300 mg PO Q8HR #42 05/15/17 Divalproex (24 HR) [Depakote ER 1,500 mg PO HS #120 05/15/17 (24 HR)] Gabapentin [Neurontin] 300 mg PO TID #90 05/15/17 Lactobacillus [Culturelle] 2 each PO DAILY #60 05/15/17 Allergies Allergy/AdvReac Type Severity Reaction Status Date / Time Buspirone [From BuSpar] AdvReac See Verified 05/11/17 12:41 Comments Past Medical History - Past Medical History Medical history: Reports: COPD, GERD, hypertension, migraine, myocardial infarction, other Surgical history: Reports: appendectomy, cholecystectomy, other (History of partial colectomy and pancreas surgery) Psychiatric history: Reports: anxiety, bipolar, other - Social History Smoking Status: Current every day smoker Smokeless Tobacco Status: No Alcohol use: Reports: heavy Drug use: Reports: none Physical Exam - General Limitations: no limitations General appearance: alert, in no apparent distress Course - Reevaluation(s) Reevaluation #1: I have been following the patient with the resident, Dr. Ham. Patient presented with a complaint of alcohol withdrawal. He is shown tremulousness. He has been vomiting as well. Both of these things have been witnessed here in the emergency department. We have given several doses of Ativan and anti-medic but patient continues to breakthrough with more tremors and more vomiting. He is to be admitted to the hospital for management of this alcohol withdrawal before it gets worse. We will talk to the hospitalist and arranged admission. Time: 21:42 Vital Signs Temperature 98.5 F 06/03/17 17:49 Pulse Rate 123 06/03/17 17:49 Respiratory Rate 18 06/03/17 17:49 Blood Pressure 128/101 06/03/17 17:49 O2 Sat by Pulse Oximetry 96 06/03/17 17:49 Temperature 98.5 F 06/03/17 17:49 Pulse Rate 118 06/03/17 18:49 Respiratory Rate 18 06/03/17 18:49 Blood Pressure 160/111 06/03/17 18:49 O2 Sat by Pulse Oximetry 97 06/03/17 18:49 Oxygen Delivery Oxygen Delivery Room Air Medical Decision Making - Lab Data Result diagrams: 06/03/17 19:10 06/03/17 19:10 Lab Results 06/03/17 06/03/17 06/03/17 Range/Units 19:10 19:10 19:10 WBC 6.4 (4.3-11.1) K/mcL RBC 5.56 H (4.19-5.50) M/mcL Hgb 14.9 (12.9-16.9) g/dL Hct 45.7 (37.5-50.1) % MCV 82.2 L D (83.0-100.0) fL MCH 26.8 L (28.0-33.3) pg MCHC 32.6 (31.6-35.5) g/dL RDW 16.0 H (11.5-14.5) % Plt Count 157 (140-400) K/mcL MPV 9.7 (9.4-12.4) fL Immature Gran % 0.2 (0-4) % Seg Neutrophils % 58.6 % Lymphocytes % 30.6 % Monocytes % 9.9 % Eosinophils % 0.2 % Basophils % 0.5 % Neutrophils # 3.7 (1.6-8.9) K/mcL Lymphocytes # 2.0 (0.6-4.6) K/mcL Monocytes # 0.6 (0.0-1.3) K/mcL Eosinophils # 0.0 (0.0-0.6) K/mcL Basophils # 0.0 (0.0-0.2) K/mcL PT 11.4 (9.4-12.1) Seconds INR 1.1 APTT 29.2 (26.0-36.0) Seconds Sodium 137 (136-145) mEq/L Potassium 3.4 L (3.5-4.5) mEq/L Chloride 101 (98-109) mEq/L Carbon Dioxide 16 L (19-29) mEq/L BUN 9 (8-26) mg/dL Creatinine 0.86 (0.72-1.25) mg/dL Est GFR ( Amer) > 60 (> 60) Est GFR (Non-Af Amer) > 60 (> 60) BUN/Creatinine Ratio 10 (6-26) Glucose 92 (70-99) mg/dL Calculated Osmolality 282 (280-300) Calcium 10.1 (8.6-10.8) mg/dL Total Bilirubin 1.5 H (0.2-1.2) mg/dL Direct Bilirubin 0.7 H (0.0-0.5) mg/dL Indirect Bilirubin 0.8 (0.0-1.2) mg/dL AST 76 H (5-34) Units/L ALT 44 (0-55) Units/L Alkaline Phosphatase 122 (38-126) Units/L Serum Total Protein 9.4 H (6.0-8.3) g/dL Albumin 4.7 (3.5-5.0) g/dL Globulin 4.7 H (2.4-3.5) g/dL Albumin/Globulin Ratio 1.0 L (1.1-2.2) Urine Color (Yellow) Urine Clarity (Clear) Urine pH (5.0-8.0) pH Units Ur Specific Calvin (1.010-1.025) Urine Protein (Neg-Trace) mg/dL Urine Glucose (UA) (Normal) mg/dL Urine Ketones (Negative) mg/dL Urine Blood (Negative) Urine Nitrite (Negative) Urine Bilirubin (Negative) Urine Urobilinogen (Normal) mg/dL Ur Leukocyte Esterase (Negative) Urine Microscopic RBC (0-3) per hpf Urine Microscopic WBC (0-3) per hpf Ur Squamous Epith Cells (None-Few) per lpf Urine Bacteria (None-Few) per hpf Hyaline Casts (None-Few) per lpf Ur Culture Indicated? (NO) Urine Opiates Screen (Nvufxl=532) ng/mL Ur Barbiturates Screen (Yedkrq=224) ng/mL Ur Phencyclidine Scrn (Cutoff=25) ng/mL Ur Amphetamines Screen (Njywwf=4563) ng/mL U Benzodiazepines Scrn (Jnvhgm=414) ng/mL Urine Cocaine Screen (Cutoff= 300) ng/mL U Marijuana (THC) Screen (Cutoff = 50) ng/mL Ethyl Alcohol 22 H (0-10) mg/dL 06/03/17 06/03/17 Range/Units 21:00 21:00 WBC (4.3-11.1) K/mcL RBC (4.19-5.50) M/mcL Hgb (12.9-16.9) g/dL Hct (37.5-50.1) % MCV (83.0-100.0) fL MCH (28.0-33.3) pg MCHC (31.6-35.5) g/dL RDW (11.5-14.5) % Plt Count (140-400) K/mcL MPV (9.4-12.4) fL Immature Gran % (0-4) % Seg Neutrophils % % Lymphocytes % % Monocytes % % Eosinophils % % Basophils % % Neutrophils # (1.6-8.9) K/mcL Lymphocytes # (0.6-4.6) K/mcL Monocytes # (0.0-1.3) K/mcL Eosinophils # (0.0-0.6) K/mcL Basophils # (0.0-0.2) K/mcL PT (9.4-12.1) Seconds INR APTT (26.0-36.0) Seconds Sodium (136-145) mEq/L Potassium (3.5-4.5) mEq/L Chloride (98-109) mEq/L Carbon Dioxide (19-29) mEq/L BUN (8-26) mg/dL Creatinine (0.72-1.25) mg/dL Est GFR ( Amer) (> 60) Est GFR (Non-Af Amer) (> 60) BUN/Creatinine Ratio (6-26) Glucose (70-99) mg/dL Calculated Osmolality (280-300) Calcium (8.6-10.8) mg/dL Total Bilirubin (0.2-1.2) mg/dL Direct Bilirubin (0.0-0.5) mg/dL Indirect Bilirubin (0.0-1.2) mg/dL AST (5-34) Units/L ALT (0-55) Units/L Alkaline Phosphatase (38-126) Units/L Serum Total Protein (6.0-8.3) g/dL Albumin (3.5-5.0) g/dL Globulin (2.4-3.5) g/dL Albumin/Globulin Ratio (1.1-2.2) Urine Color Dark Yellow (Yellow) Urine Clarity Clear (Clear) Urine pH 7.0 (5.0-8.0) pH Units Ur Specific Calvin 1.019 (1.010-1.025) Urine Protein 100 H (Neg-Trace) mg/dL Urine Glucose (UA) Normal (Normal) mg/dL Urine Ketones 80 H (Negative) mg/dL Urine Blood Negative (Negative) Urine Nitrite Negative (Negative) Urine Bilirubin Small H (Negative) Urine Urobilinogen Normal (Normal) mg/dL Ur Leukocyte Esterase Trace H (Negative) Urine Microscopic RBC 5-15 H (0-3) per hpf Urine Microscopic WBC 0-3 (0-3) per hpf Ur Squamous Epith Cells Moderate H (None-Few) per lpf Urine Bacteria None Seen (None-Few) per hpf Hyaline Casts None Seen (None-Few) per lpf Ur Culture Indicated? YES A (NO) Urine Opiates Screen Negative (Etalnv=633) ng/mL Ur Barbiturates Screen Negative (Msvmvu=348) ng/mL Ur Phencyclidine Scrn Negative (Cutoff=25) ng/mL Ur Amphetamines Screen Negative (Uecrlc=9490) ng/mL U Benzodiazepines Scrn Positive H (Tgkevy=069) ng/mL Urine Cocaine Screen Negative (Cutoff= 300) ng/mL U Marijuana (THC) Screen Negative (Cutoff = 50) ng/mL Ethyl Alcohol (0-10) mg/dL Attestation Statement - Attestation Attestation: I, Dr. Quevedo, examined this patient [id number] and my medical decision- making was reviewed with the Resident Physician, Dr. Ham. I agree with the documented findings, disposition and treatment plan as described except to the extent set forth below. Please see my progress note for details.
[2017-06-03] MEDS ORDERED: 0.9 % Sodium Chloride 1,000 ML IVC ONE (21:51)
[2017-06-03] MEDS ORDERED: Ketorolac 30 MG/ML VIAL IVP PRN (22:59)
[2017-06-03] MEDS ORDERED: Naloxone 0.4 MG/ML INJ IVP PRN (22:59)
[2017-06-03] MEDS ORDERED: *HR* Promethazine 25 MG/ML VIAL IVP PRN (22:59)
[2017-06-03] MEDS ORDERED: Ondansetron 4 MG/2 ML VIAL IVP PRN (22:59)
[2017-06-03] MEDS ORDERED: *HR* LORazepam 2 MG/ML VIAL IVP PRN ×2 (23:01)
[2017-06-03 23:16] LABS: Magnesium 1.8 mg/dL (1.6-2.6)
--- NOTE | 2017-06-03 23:21 | Internal Med History&Physical ---
<Castro Gonzalez - Last Filed: 06/04/17 00:22> Date of Encounter: 06/04/17 Time of Encounter: 23:15 Assessment and Plan (1) Alcohol withdrawal Current visit: Yes Status: Acute 62 y/o male presents with cc of alcohol withdrawal last drink on 06/02 at 12PM drinks 1/5 vodka 40 proof per day reports wanting to quit due to turning 62 and wants to live longer reports diaphoresis, tremors, N/V four hours after stopped drinking denies passing out, seizures, hallucinations fever afebrile, sinus tachycardic. HR 120s, BP 140/100 given 6mg ativan and 50mg libirum in ER GCS 15 plan: [facility] protocol Q4h neuro check, head of bed elevated ativan per ciwa protocol libirum 75mg QID x24 hours which can be then tapered according to ativan required as per ciwa protocol banana bag regular diet GI and DVT prophylaxis Qualifiers: Complication of substance-induced condition: uncomplicated Qualified Code(s ): F10.230 - Alcohol dependence with withdrawal, uncomplicated (2) Bipolar 1 disorder, depressed, moderate Current visit: Yes Status: Acute stable, continue home medications (3) Chronic schizophrenia Current visit: Yes Status: Acute stable, continue home medications (4) DVT prophylaxis Current visit: Yes Status: Acute heparin SQ EPCD (5) Pancreatic insufficiency Current visit: Yes Status: Acute denies abdominal pain on creon regular diet continue creon Internal Medicine - H&P: HPI Chief complaint: alcohol withdraal Admitted From: Home Plans for Post Hospital Care: Home History of present illness: Mr. Chen is a 62 year old male hx of alcohol abuse presents with cc of alcohol withdrawal. Patient is awake, conversing, and tremulous on presentation. Patient drink 1/5 of vodka 40 proof everyday. States he stopped drinking on the afternoon of 06/02/2017. Four hours later he started have tremors, nausea, vomiting, and diaphoresis. N/V transitioned to dry heaving. He denies hematemesis, visual/ auditory hallucination, fevers. He denies chest pain, sob. Reports headache. Reports previous hx of DTs, alcohol withdrawal. Denies passing out, fall. Patient states since he is now 62 he wants to quit so he can live longer life. Previous admission for alcohol withdrawl was complicated by acute respiratory failure 2nd to pneumonia and loculated euffusions, patient was intubated, underwent thoracotomy with decortication. Furthermore, he has had duodenal perforation in the past. Last EGD did not show any signs of esophageal varices. Past Med Surg Social Fam HX - Past Medical History Medical history: COPD, GERD, hypertension, migraine, myocardial infarction, other Psychiatric history: anxiety, bipolar, other - Past Surgical History Surgical History: appendectomy, cholecystectomy, other (History of partial colectomy and pancreas surgery) - Social History Smoking Status: Current every day smoker Smokeless Tobacco Status: No Alcohol use: heavy Drug use: none - Family History Mother Adopted: No Family Member Ethnicity: Non- Living Status: Still Living Hx Family Cardiac Disorders: Yes (htn) Hx Family Respiratory Disorders: No Hx Family Cancer: No Hx Family GI Disorders: No Hx Family Endocrine Disorder: No Hx Family Neuromuscular Disorders: Yes (Neuropathy) Hx Family Neurologic Disorders: No Hx Family HEENT Disorders: No Hx Family Autoimmune Disorders: No Father Living Status: Internal Medicine - H&P: Meds Albuterol Sulfate [Proair Hfa] 2 puff IH Q4H PRN 12/21/16 [History] Quetiapine Fumarate [Seroquel] 300 mg PO HS 12/21/16 [History] SUMAtriptan succinate [Imitrex] 6 mg SQ AD PRN 12/21/16 [History] Lipase/Protease/Amylase [Creon Dr 12,000 Units Capsule] 3 cap PO TIDWM 03/15/17 [History] Omeprazole [PriLOSEC] 20 mg PO DAILY 03/15/17 [History] Amitriptyline HCl 75 mg PO HS 03/27/17 [History] Amlodipine Besylate 10 mg PO DAILY 03/27/17 [History] Budesonide/Formoterol 160/4.5 [Symbicort 160/4.5] 1 puff IH BIDR 03/27/17 [ History] Desonide [Tridesilon] 1 appl TP BID PRN 03/27/17 [History] Folic Acid 2 mg PO DAILY 03/27/17 [History] Hydrocortisone 1% CREAM [Cortaid] 1 appl TP BID PRN 03/27/17 [History] Magnesium Oxide [Mag-Ox] 400 mg PO BID 03/27/17 [History] Thiamine (B-1) [Vitamin B-1] 100 mg PO BID 03/27/17 [History] traZODone [TraZODone] 50 mg PO TID 03/27/17 [History] Cholecalciferol (Vitamin D3) [Vitamin D3] 1,000 unit PO DAILY 04/23/17 [History] Cyanocobalamin (Vitamin B-12) [Vitamin B-12] 500 mcg PO DAILY 06/03/17 [History] Divalproex (24 HR) [Depakote ER (24 HR)] 1,250 mg PO HS 06/03/17 [History] Gabapentin [Neurontin] 600 mg PO TID 06/03/17 [History] Ketoconazole Shampoo [Nizoral Shampoo] 1 appl TP 2XW 06/03/17 [History] Lactobacillus [Culturelle] 1 each PO BID 06/03/17 [History] Buspirone [From BuSpar] Adverse Reaction (Verified 05/11/17 12:41) See Comments ears ringing tramadol Adverse Reaction (Verified 06/03/17 22:13) See Comments va list All Systems PM: A 10-system review of systems was performed and is negative for pertinent findings except as documented above in the HPI. Review of systems: Constitutional: Denies fever, chills, reports diaphoresis, tremors HEENT: Denies vision changes, neck pain, sore throat, rhinorrhea, reports blurry vision Heart: Denies chest pain palpitations Lungs: Denies shortness of breath cough Abdomen: Denies abdominal pain . Reports nausea, vomiting, diarrhea Back: Denies back pain Kidney: Denies dysuria, hematuria Extremities: Denies swelling, pain Neuro: Reports chronic numbness and tingling in bilateral feet and hands. - Constitutional Vitals: Temp Pulse Resp BP Pulse Ox 98.5 F 110 20 147/108 95 06/03/17 17:49 06/03/17 22:40 06/03/17 22:58 06/03/17 22:58 06/03/17 22:40 - Other Additional findings: General: Alert and oriented to place time and situation. Tremulous on appearance, diaphoretic. GCS 15 HEENT: Head atraumatic, normocephalic, EOMI, PERRLA, neck nontender to palpation , dry mucous membranes, Heart: Sinus tachycardia without murmur Lungs: Clear to auscultation bilaterally Chest: previous scarring from chest tubes placement Abdomen: Soft nontender, nondistended positive bowel sounds, no organomegaly, previous scar Xiphoid midline for duodenal perforation surgery Extremities: Absent pedal edema, Neuro: Cranial nerves II through XII intact, sensation equal bilaterally, strength upper and lower extremity 5/5, alert oriented 3 Vascular: Pedal and radialpulses 2 out of 4 Internal Med - H&P Results - Labs CBC & Chem 7: 06/03/17 19:10 06/03/17 19:10 <Bharathi Vasquez - Last Filed: 06/04/17 02:43> Date of Encounter: 06/04/17 Time of Encounter: 00:45 - Constitutional Constitutional: no chills, no fever(s) - EENT Eyes: no blurry vision, no diplopia Ears: no tinnitus - Cardiovascular Cardiovascular ROS IM: diaphoresis, no chest pain, no dyspnea - Respiratory Respiratory: no cough, no dyspnea - Gastrointestinal Gastrointestinal: nausea, no abdominal pain, no diarrhea, no vomiting - Genitourinary Genitourinary ROS male: no dysuria - Neurological Neurological ROS: lack of coordination, tremor(s), weakness, no convulsions, no headache(s) - Psychiatric Psychiatric: abnormal sleep pattern, anxiety, no auditory hallucinations, no visual hallucinations - Endocrine Endocrine IM: no polydipsia, no polyuria - Constitutional Vitals: Temp Pulse Resp BP Pulse Ox 98.6 F 114 18 163/101 97 06/04/17 00:36 06/04/17 00:36 06/04/17 00:36 06/04/17 00:36 06/04/17 00:36 General appearance: Present: cooperative, A&O X 3, severe distress (anxious, nervous, tremulous, agitated but no combative or hallucinating) - Head Head exam: Present: atraumatic - Eye Eye exam: Present: EOMI, normal appearance, PERRL. Absent: scleral icterus Pupils: Present: normal accommodation - ENT ENT exam: Present: mucous membranes dry, normal exam - Neck Neck exam general surgery: Present: supple. Absent: tenderness - Respiratory Respiratory exam: Present: CTAB. Absent: chest wall tenderness, rales, rhonchi , wheezes - Cardiovascular Cardiovascular exam: Present: RRR, +S1, +S2, tachycardia. Absent: diastolic murmur, systolic murmur - GI/Abdominal GI/Abdominal exam: Present: soft. Absent: mass, tenderness - Back Exam Back exam: Absent: CVA tenderness (L), CVA tenderness (R) - Neurological Exam Neurological exam: Present: altered, oriented X3, no focal deficits - Psychiatric Psychiatric exam: Present: agitated, anxious - Skin Skin exam: Present: dry, warm Internal Med - H&P Results - Labs CBC & Chem 7: 06/03/17 19:10 06/03/17 19:10 - Attending Attestation I discussed the patient [place], PMH, ROS, lab data, and exam findings with Dr. Gonzalez. I then saw and examined patient independently as well. I have previously cared for Mr. Chen in the past, and he is currently in a much more severe withdrawal state than previous episodes I've encountered with him. He is hypertensive, tachycardic, and very tremulous. He is not hallucinating, delusional, or febrile. I asked Dr. Gonzalez to increase his scheduled Librium to 100 mg QID and to continue CIWA protocol. We will continue his Folate, Thiamine , and MVI. If his EtOH withdrawal worsens and we can not treat it effectively, he may need continuous IV benzodiazapene infusion in the ICU or step-down unit. For now, we will continue the plan as above and monitor closely. Other than my comments above and noted exam findings, I agree with Dr. Gonzalez's assessment and plan.
[2017-06-04] MEDS: Pantoprazole 40 MG VIAL IVP SCH ×2 (00:10→07:56)
[2017-06-04] MEDS ORDERED: Acetaminophen 325 MG TABLET PO PRN (00:21)
[2017-06-04] MEDS ORDERED: SUMAtriptan 6 MG/0.5 ML SQ PRN (01:41)
[2017-06-04] MEDS ORDERED: *HR* LORazepam 2 MG/ML VIAL IVP PRN (01:41)
[2017-06-04] MEDS: *HR* LORazepam 2 MG/ML VIAL IVP PRN ×5 (02:10→20:15)
[2017-06-04] MEDS ORDERED: *HR* OxyCODONE Immed Rel 5 MG TABLET PO PRN (02:37)
[2017-06-04 04:00] LABS: Basophils % 0.5 %; Eosinophils % 0.5 %; Hematocrit 40.8 % (37.5-50.1); Immature Granulocytes % 0.3 % (0-4); Lymphocytes # 1.8 K/mcL (0.6-4.6); Lymphocytes % 28.7 %; Mean Corpuscular HGB Conc 31.6 g/dL (31.6-35.5); Mean Corpuscular Hemoglobin 26.5 pg (28.0-33.3); Mean Platelet Volume 9.3 fL (9.4-12.4); Monocytes # 0.6 K/mcL (0.0-1.3); Monocytes % 9.5 %; Neutrophils # 3.8 K/mcL (1.6-8.9); Platelet Count 119 K/mcL (140-400); Red Blood Count 4.86 M/mcL (4.19-5.50); Red Cell Distribution Width 15.9 % (11.5-14.5); Segmented Neutrophils % 60.5 %
[2017-06-04 04:07] LABS: Hemoglobin 12.9 g/dL (12.9-16.9)
[2017-06-04 04:13] LABS: Alanine Aminotransferase 34 Units/L (0-55); Alkaline Phosphatase 98 Units/L (38-126); Aspartate Amino Transferase 52 Units/L (5-34); BUN/Creatinine Ratio 15 (6-26); Bilirubin,Total 1.5 mg/dL (0.2-1.2); Blood Urea Nitrogen 12 mg/dL (8-26); Carbon Dioxide 21 mEq/L (19-29); Chloride 104 mEq/L (98-109); Glucose 101 mg/dL (70-99); Osmolality,Calculated 282 (280-300); Sodium 136 mEq/L (136-145); eGFR For African Americans > 60 (> 60); eGFR For Non-African Americans > 60 (> 60)
[2017-06-04 04:19] LABS: Potassium 3.5 mEq/L (3.5-4.5)
[2017-06-04] MEDS: *HR* Heparin 5,000 UNIT/ML VIAL SQ SCH ×3 (05:48→20:09)
[2017-06-04] MEDS: traZODone 50 MG TABLET PO SCH ×3 (07:56→20:08)
[2017-06-04] MEDS: Gabapentin 300 MG CAPSULE PO SCH ×3 (07:56→20:08)
[2017-06-04] MEDS: amLODIPine 5 MG TABLET PO SCH (07:56)
[2017-06-04] MEDS: Magnesium Oxide 400 MG TABLET PO SCH ×2 (07:56→20:07)
[2017-06-04] MEDS ORDERED: *HR* LORazepam 2 MG/ML VIAL IM PRN (08:24)
[2017-06-04] MEDS: Budesonide/Formoterol 160/4.5 MDI IH SCH ×2 (10:48→20:17)
[2017-06-04] MEDS ORDERED: diazePAM 10 MG/2 ML SYRINGE IVP ONE (12:06)
[2017-06-04] MEDS ORDERED: diazePAM 10 MG/2 ML SYRINGE IVP PRN (14:04)
--- NOTE | 2017-06-04 15:36 | Electrocardiograph Report ---
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
--- NOTE | 2017-06-04 16:19 | Internal Med Progress Note ---
Date of Encounter: 06/04/17 Time of Encounter: 16:17 - Assessment and plan (1) Alcohol withdrawal Current Visit: Yes Status: Acute Qualifiers: Complication of substance-induced condition: uncomplicated Qualified Code(s ): F10.230 - Alcohol dependence with withdrawal, uncomplicated (2) Alcohol intoxication Current Visit: Yes Status: Chronic Qualifiers: Complication of substance-induced condition: with delirium Qualified Code(s ): F10.921 - Alcohol use, unspecified with intoxication delirium (3) COPD (chronic obstructive pulmonary disease) Current Visit: No Status: Chronic Qualifiers: COPD type: unspecified COPD Qualified Code(s): J44.9 - Chronic obstructive pulmonary disease, unspecified (4) Psychiatric disorder Current Visit: No Status: Chronic (5) Bipolar disorder, unspecified Current Visit: No Status: Chronic Qualifiers: Active/Remission status: currently active Current bipolar episode type: mixed Current episode severity: unspecified Qualified Code(s): F31.60 - Bipolar disorder, current episode mixed, unspecified (6) Schizophrenia Current Visit: No Status: Chronic Qualifiers: Schizophrenia type: unspecified Qualified Code(s): F20.9 - Schizophrenia, unspecified (7) DVT prophylaxis Current Visit: Yes Status: Acute - Subjective Interval history: Mr. Lauri Temple is a 62-year-old male who has history of alcoholism with several relapses and multiple attempts of rehabilitation. He has returned with the same problem. He is very tremulous shaking badly. He does have a tendency to to exaggerate his symptoms as we know from our. Previous experience. Nursing CIWA scores have been running high in the range of 20-27. I gave him Valium 10 mg IV and that seems to have put him to sleep and he feels calm. I think we can continue using when necessary Ativan according to CIWA but if is a scores are high then Valium can be used. He is on IV fluid and time and multivitamin folic acid. Patient has underlying bipolar disorder and schizophrenia - Constitutional Vitals: Temp Pulse Resp BP Pulse Ox 98.2 F 89 18 126/77 94 06/04/17 15:21 06/04/17 15:21 06/04/17 15:21 06/04/17 15:21 06/04/17 15:21 General appearance: Present: cooperative, A&O X 3, severe distress (anxious, nervous, tremulous, agitated but no combative or hallucinating) - Head Head exam: Present: atraumatic, normocephalic - Eye Eye exam: Present: PERRL, conjuntiva pink, sclera anicteric Pupils: Present: PERRL - Neck Neck exam general surgery: Present: supple, trachea midline. Absent: lymphadenopathy - Respiratory Respiratory exam: Present: CTAB. Absent: accessory muscle use, rales, rhonchi, wheezes - Cardiovascular Cardiovascular exam: Present: RRR, +S1, +S2. Absent: diastolic murmur, gallop, rubs, systolic murmur - GI/Abdominal GI/Abdominal exam: Present: normal bowel sounds, soft, no peritoneal signs. Absent: distended, tenderness Additional comments: Abdomen is slightly firm and mildly tender in lower abdomen but no rebound tenderness bowel sounds active certainly not an acute abdomen - Extremities Exam Extremities exam: Present: warm, radial pulses palpable and symmetrical. Absent : calf tenderness, cyanotic, pedal edema - Neurological Exam Neurological exam: Present: CN II-XII intact, oriented X3, no focal deficits. Absent: pronater drift, facial droop, speech deficit Additional comments: Tremulous bilateral upper extremity tremors DTRs symmetrical awake and alert and oriented to time place and person with no focal finding - Skin Skin exam: Present: dry, intact Internal Medicine: Result - Labs CBC & Chem 7: 06/04/17 03:17 06/04/17 03:17 - ABG Interpretation ABG results: PT/INR, D-dimer PT 11.4 Seconds (9.4-12.1) 06/03/17 19:10 Consult Discharge Plan - Plan Referrals: Terence Barahona MD [Primary Care Provider] - 06/11/17 10:15 am
[2017-06-04] MEDS: 0.9 % Sodium Chloride 1,000 ML IVC SCH (18:01)
[2017-06-04] MEDS: Nicotine 21 MG PATCH.TD24 TD SCH (18:02)
[2017-06-04] MEDS: Thiamine (B-1) 100 MG, Folic Acid 1 MG, MVI, adult with vitamin K 10 ML in 0.9 % Sodi... IVPB SCH (18:02)
[2017-06-04] MEDS: Divalproex (24 HR) 250 MG TABLET PO SCH (20:07)
[2017-06-05 03:28] LABS: Basophils % 0.5 %; Eosinophils # 0.1 K/mcL (0.0-0.6); Eosinophils % 1.6 %; Immature Granulocytes % 0.5 % (0-4); Immature Platelets 3.4 % (1.1-6.1); Lymphocytes # 1.2 K/mcL (0.6-4.6); Lymphocytes % 27.8 %; Mean Corpuscular HGB Conc 30.6 g/dL (31.6-35.5); Mean Corpuscular Hemoglobin 26.7 pg (28.0-33.3); Mean Corpuscular Volume 87.4 fL (83.0-100.0); Mean Platelet Volume 9.3 fL (9.4-12.4); Monocytes # 0.3 K/mcL (0.0-1.3); Monocytes % 6.2 %; Neutrophils # 2.8 K/mcL (1.6-8.9); Red Blood Count 4.12 M/mcL (4.19-5.50); Red Cell Distribution Width 15.6 % (11.5-14.5); Segmented Neutrophils % 63.4 %
[2017-06-05 03:31] LABS: Platelet Count 74 K/mcL (140-400)
[2017-06-05 03:46] LABS: Alanine Aminotransferase 30 Units/L (0-55); Albumin 3.3 g/dL (3.5-5.0); Alkaline Phosphatase 84 Units/L (38-126); Aspartate Amino Transferase 48 Units/L (5-34); BUN/Creatinine Ratio 15 (6-26); Blood Urea Nitrogen 12 mg/dL (8-26); Calcium 8.7 mg/dL (8.6-10.8); Carbon Dioxide 25 mEq/L (19-29); Chloride 106 mEq/L (98-109); Globulin 3.4 g/dL (2.4-3.5); Glucose 87 mg/dL (70-99); Magnesium 1.9 mg/dL (1.6-2.6); Osmolality,Calculated 285 (280-300); Phosphorous 3.5 mg/dL (2.3-4.7); Sodium 138 mEq/L (136-145); Total Protein 6.7 g/dL (6.0-8.3); eGFR For African Americans > 60 (> 60); eGFR For Non-African Americans > 60 (> 60)
[2017-06-05] MEDS: *HR* Heparin 5,000 UNIT/ML VIAL SQ SCH ×3 (06:03→21:00)
[2017-06-05] MEDS: 0.9 % Sodium Chloride 1,000 ML IVC SCH ×2 (06:03→18:44)
[2017-06-05] MEDS: Budesonide/Formoterol 160/4.5 MDI IH SCH ×2 (07:50→20:03)
[2017-06-05] MEDS: amLODIPine 5 MG TABLET PO SCH (10:48)
[2017-06-05] MEDS: Gabapentin 300 MG CAPSULE PO SCH ×3 (10:48→21:03)
[2017-06-05] MEDS: Nicotine 21 MG PATCH.TD24 TD SCH (10:48)
[2017-06-05] MEDS: Pantoprazole 40 MG VIAL IVP SCH (10:49)
[2017-06-05] MEDS: traZODone 50 MG TABLET PO SCH ×3 (10:49→21:03)
[2017-06-05] MEDS: Magnesium Oxide 400 MG TABLET PO SCH ×2 (10:49→21:02)
[2017-06-05 10:53] LABS: Amylase 28 Units/L (25-125); Lipase 25 Units/L (8-78)
[2017-06-05] MEDS: *HR* LORazepam 2 MG/ML VIAL IVP PRN ×3 (11:12→23:11)
[2017-06-05] MEDS ORDERED: Acetaminophen 325 MG TABLET PO PRN (11:37)
[2017-06-05] MEDS ORDERED: *HR* OxyCODONE Immed Rel 5 MG TABLET PO PRN (11:38)
--- NOTE | 2017-06-05 17:57 | Internal Med Progress Note ---
Date of Encounter: 06/05/17 Time of Encounter: 17:55 - Assessment and plan (1) Alcohol withdrawal Current Visit: Yes Status: Acute Qualifiers: Complication of substance-induced condition: uncomplicated Qualified Code(s ): F10.230 - Alcohol dependence with withdrawal, uncomplicated (2) Alcohol intoxication Current Visit: Yes Status: Chronic Qualifiers: Complication of substance-induced condition: with delirium Qualified Code(s ): F10.921 - Alcohol use, unspecified with intoxication delirium (3) COPD (chronic obstructive pulmonary disease) Current Visit: No Status: Chronic Qualifiers: COPD type: unspecified COPD Qualified Code(s): J44.9 - Chronic obstructive pulmonary disease, unspecified (4) Psychiatric disorder Current Visit: No Status: Chronic (5) Bipolar disorder, unspecified Current Visit: No Status: Chronic Qualifiers: Active/Remission status: currently active Current bipolar episode type: mixed Current episode severity: unspecified Qualified Code(s): F31.60 - Bipolar disorder, current episode mixed, unspecified (6) Schizophrenia Current Visit: No Status: Chronic Qualifiers: Schizophrenia type: unspecified Qualified Code(s): F20.9 - Schizophrenia, unspecified (7) DVT prophylaxis Current Visit: Yes Status: Acute - Subjective Interval history: Mr. Lauri Temple is a 62-year-old male who has history of alcoholism with several relapses and multiple attempts of rehabilitation. He has returned with the same problem. He is very tremulous shaking badly. He does have a tendency to to exaggerate his symptoms as we know from our. Previous experience. Nursing CIWA scores have been running high in the range of 20-27. I gave him Valium 10 mg IV and that seems to have put him to sleep and he feels calm. I think we can continue using when necessary Ativan according to CIWA but if is a scores are high then Valium can be used. He is on IV fluid and time and multivitamin folic acid. Patient has underlying bipolar disorder and schizophrenia 06/05 patient sleeping easily arousable complaining of generalized abdominal pain. Amylase and lipase were checked and they are negative. Ultrasound is ordered. He will continue to be in by mouth. His tremulousness has gone and it seems like that he is doing much better regarding his alcohol withdrawal. - Constitutional Vitals: Temp Pulse Resp BP Pulse Ox 97.9 F 84 20 114/72 96 06/05/17 15:10 06/05/17 15:10 06/05/17 15:10 06/05/17 15:10 06/05/17 15:10 General appearance: Present: cooperative, A&O X 3, severe distress (anxious, nervous, tremulous, agitated but no combative or hallucinating) - Head Head exam: Present: atraumatic, normocephalic - Eye Eye exam: Present: PERRL, conjuntiva pink, sclera anicteric Pupils: Present: PERRL - Neck Neck exam general surgery: Present: supple, trachea midline. Absent: lymphadenopathy - Respiratory Respiratory exam: Present: CTAB. Absent: accessory muscle use, rales, rhonchi, wheezes - Cardiovascular Cardiovascular exam: Present: RRR, +S1, +S2. Absent: diastolic murmur, gallop, rubs, systolic murmur - GI/Abdominal GI/Abdominal exam: Present: diminished bowel sounds, soft, tenderness, no peritoneal signs. Absent: distended - Extremities Exam Extremities exam: Present: warm, radial pulses palpable and symmetrical. Absent : calf tenderness, cyanotic, pedal edema - Neurological Exam Neurological exam: Present: CN II-XII intact, oriented X3, no focal deficits. Absent: pronater drift, facial droop, speech deficit - Skin Skin exam: Present: dry, intact Internal Medicine: Result - Labs CBC & Chem 7: 06/05/17 03:20 06/05/17 03:20 Labs: Short CBC 06/05/17 Range/Units 03:20 WBC 4.4 (4.3-11.1) K/mcL Hgb 11.0 L D (12.9-16.9) g/dL Hct 36.0 L (37.5-50.1) % Plt Count 74 L (140-400) K/mcL Neutrophils # 2.8 (1.6-8.9) K/mcL BMP 06/05/17 03:20 Sodium 138 Potassium 3.0 L Chloride 106 Carbon Dioxide 25 BUN 12 Creatinine 0.80 Glucose 87 Calcium 8.7 Liver Function 06/05/17 Range/Units 03:20 Total Bilirubin 1.0 (0.2-1.2) mg/dL AST 48 H (5-34) Units/L ALT 30 (0-55) Units/L Alkaline Phosphatase 84 (38-126) Units/L Albumin 3.3 L (3.5-5.0) g/dL - ABG Interpretation ABG results: PT/INR, D-dimer PT 11.4 Seconds (9.4-12.1) 06/03/17 19:10 Consult Discharge Plan - Plan Referrals: Terence Barahona MD [Primary Care Provider] - 06/11/17 10:15 am
[2017-06-05] MEDS: Thiamine (B-1) 100 MG, Folic Acid 1 MG, MVI, adult with vitamin K 10 ML in 0.9 % Sodi... IVPB SCH (18:42)
[2017-06-05] MEDS: Divalproex (24 HR) 250 MG TABLET PO SCH (21:01)
[2017-06-06 04:19] LABS: Basophils % 0.4 %; Hemoglobin 11.2 g/dL (12.9-16.9); Immature Granulocytes % 0.4 % (0-4); Mean Corpuscular Hemoglobin 26.9 pg (28.0-33.3)
[2017-06-06 04:21] LABS: Eosinophils # 0.1 K/mcL (0.0-0.6); Eosinophils % 3.2 %; Hematocrit 36.5 % (37.5-50.1); Lymphocytes % 36.7 %; Mean Corpuscular HGB Conc 30.7 g/dL (31.6-35.5); Mean Corpuscular Volume 87.7 fL (83.0-100.0); Mean Platelet Volume 10.2 fL (9.4-12.4); Monocytes # 0.2 K/mcL (0.0-1.3); Neutrophils # 1.5 K/mcL (1.6-8.9); Red Blood Count 4.16 M/mcL (4.19-5.50); Red Cell Distribution Width 15.6 % (11.5-14.5); Segmented Neutrophils % 53.3 %
[2017-06-06 04:23] LABS: Platelet Count 69 K/mcL (140-400)
[2017-06-06 04:33] LABS: Alanine Aminotransferase 32 Units/L (0-55); Albumin 3.3 g/dL (3.5-5.0); Albumin/Globulin Ratio 0.9 (1.1-2.2); Alkaline Phosphatase 86 Units/L (38-126); Aspartate Amino Transferase 49 Units/L (5-34); BUN/Creatinine Ratio 9 (6-26); Bilirubin,Total 0.5 mg/dL (0.2-1.2); Blood Urea Nitrogen 7 mg/dL (8-26); Calcium 8.6 mg/dL (8.6-10.8); Carbon Dioxide 23 mEq/L (19-29); Chloride 114 mEq/L (98-109); Globulin 3.5 g/dL (2.4-3.5); Glucose 77 mg/dL (70-99); Magnesium 2.1 mg/dL (1.6-2.6); Osmolality,Calculated 295 (280-300); Phosphorous 3.4 mg/dL (2.3-4.7); Potassium 3.5 mEq/L (3.5-4.5); Sodium 144 mEq/L (136-145); Total Protein 6.8 g/dL (6.0-8.3); eGFR For African Americans > 60 (> 60); eGFR For Non-African Americans > 60 (> 60)
[2017-06-06 04:34] LABS: Amylase 26 Units/L (25-125); Lipase 16 Units/L (8-78)
[2017-06-06] MEDS: *HR* Heparin 5,000 UNIT/ML VIAL SQ SCH ×3 (06:24→21:28)
[2017-06-06] MEDS: Budesonide/Formoterol 160/4.5 MDI IH SCH ×2 (08:00→21:22)
[2017-06-06] MEDS: amLODIPine 5 MG TABLET PO SCH (08:38)
[2017-06-06] MEDS: Magnesium Oxide 400 MG TABLET PO SCH ×2 (08:39→21:27)
[2017-06-06] MEDS: Gabapentin 300 MG CAPSULE PO SCH ×3 (08:39→21:28)
[2017-06-06] MEDS: Nicotine 21 MG PATCH.TD24 TD SCH (08:47)
[2017-06-06] MEDS: Pantoprazole 40 MG VIAL IVP SCH (08:49)
[2017-06-06] MEDS: traZODone 50 MG TABLET PO SCH ×3 (08:50→21:28)
--- NOTE | 2017-06-06 08:50 | Discharge Summary ---
Date of Encounter: 06/06/17 Time of Encounter: 08:47 - Discharge Diagnosis (1) Alcohol withdrawal Priority: Primary Status: Acute Qualifiers: Complication of substance-induced condition: uncomplicated Qualified Code(s ): F10.230 - Alcohol dependence with withdrawal, uncomplicated (2) Alcohol intoxication Priority: Secondary Status: Chronic Qualifiers: Complication of substance-induced condition: with delirium Qualified Code(s ): F10.921 - Alcohol use, unspecified with intoxication delirium (3) COPD (chronic obstructive pulmonary disease) Priority: Secondary Status: Chronic Qualifiers: COPD type: unspecified COPD Qualified Code(s): J44.9 - Chronic obstructive pulmonary disease, unspecified (4) Psychiatric disorder Priority: Secondary Status: Chronic (5) Bipolar disorder, unspecified Priority: Secondary Status: Chronic Qualifiers: Active/Remission status: currently active Current bipolar episode type: mixed Current episode severity: unspecified Qualified Code(s): F31.60 - Bipolar disorder, current episode mixed, unspecified (6) Schizophrenia Priority: Secondary Status: Chronic Qualifiers: Schizophrenia type: unspecified Qualified Code(s): F20.9 - Schizophrenia, unspecified (7) DVT prophylaxis Priority: Secondary Status: Acute - Discharge Medications Home Medications: Albuterol Sulfate [Proair Hfa] 2 puff IH Q4H PRN 12/21/16 [History] Quetiapine Fumarate [Seroquel] 300 mg PO HS 12/21/16 [History] SUMAtriptan succinate [Imitrex] 6 mg SQ AD PRN 12/21/16 [History] Lipase/Protease/Amylase [Creon Dr 12,000 Units Capsule] 3 cap PO TIDWM 03/15/17 [History] Omeprazole [PriLOSEC] 20 mg PO DAILY 03/15/17 [History] Amitriptyline HCl 75 mg PO HS 03/27/17 [History] Amlodipine Besylate 10 mg PO DAILY 03/27/17 [History] Budesonide/Formoterol 160/4.5 [Symbicort 160/4.5] 1 puff IH BIDR 03/27/17 [ History] Desonide [Tridesilon] 1 appl TP BID PRN 03/27/17 [History] Folic Acid 2 mg PO DAILY 03/27/17 [History] Hydrocortisone 1% CREAM [Cortaid] 1 appl TP BID PRN 03/27/17 [History] Magnesium Oxide [Mag-Ox] 400 mg PO BID 03/27/17 [History] Thiamine (B-1) [Vitamin B-1] 100 mg PO BID 03/27/17 [History] traZODone [TraZODone] 50 mg PO TID 03/27/17 [History] Cholecalciferol (Vitamin D3) [Vitamin D3] 1,000 unit PO DAILY 04/23/17 [History] Cyanocobalamin (Vitamin B-12) [Vitamin B-12] 500 mcg PO DAILY 06/03/17 [History] Divalproex (24 HR) [Depakote ER (24 HR)] 1,250 mg PO HS 06/03/17 [History] Gabapentin [Neurontin] 600 mg PO TID 06/03/17 [History] Ketoconazole Shampoo [Nizoral Shampoo] 1 appl TP 2XW 06/03/17 [History] Lactobacillus [Culturelle] 1 each PO BID 06/03/17 [History] Nicotine Patch [Nicoderm] 21 mg TD DAILY 06/06/17 [Rx] Allergies/Adverse Reactions: 3 Allergy/AdvReac Type Severity Reaction Status Date / Time Buspirone [From BuSpar] AdvReac See Verified 05/11/17 12:41 Comments tramadol AdvReac See Verified 06/03/17 22:13 Comments Procedures/tests Complete & Pending: Procedures Performed prior 72 hours Category Date Time Status abdominal ultrasound - limited [US abdomen limited] [US Exams 06/05/17 19:00 Completed ] Routine Date of admission: 06/04/17 03:39 Primary care physician: Terence Barahona MD Consults: 06/04/17 08:20 PICC LINE [Consult to Invasive Line Access Team] [CONS] Stat Reason for Consult: no iv access very poor Line Type: Midline PICC line indications: Limited vascular access Call Completed: No 06/04/17 11:57 Consult to Director Client Services [CONS] Routine Reason for SW Consult: BC ALREADY SPOKE W/RAYMUNDO CAMPUZANO Discharging clinician: Gera Albarran Anticipated date of discharge: 06/06/17 - Patient Status Disposition: Home, Self-Care Condition: Fair Overall status at discharge: patient is progressing back to baseline - Discharge Instructions Follow Up With: Terence Barahona MD [Primary Care Provider] - 06/11/17 10:15 am - Diet and Activity Activity: resume usual activities as tolerated Diet: advance to your usual diet Hospital course: Mr. Lauri Temple is a 62-year-old male who has history of alcoholism with several relapses and multiple attempts of rehabilitation. He has returned with the same problem. He was treated with benzodiazepine and IV fluid and supportive treatment according to [facility] her to call. A banana bag was given every day. Patient has underlying bipolar disorder and schizophrenia. Nursing staff has informed me that he has not have any benzodiazepines since last night and he seems to have recovered reasonably well therefore we will start feeding him and if he tolerates full diet and remain without benzodiazepines for 24 hour he can be discharged. He was complaining of abdominal pain therefore ultrasound and blood chemistries as well as amylase and lipase were checked and they were all unremarkable. Pain has settled down. Counseling provided both regarding alcohol and nicotine. He had multiple failures in the past. He has been given all the necessary outpatient rehabilitation and formation advised to follow-up with his family doctor in this regard for further that. - Time Spent with Patient Total time spent providing and/or coordinating discharge services: Greater than 30 minutes - Constitutional Vitals: Temp Pulse Resp BP Pulse Ox 97.6 F 85 20 127/79 94 06/06/17 07:33 06/06/17 07:33 06/06/17 08:00 06/06/17 07:33 06/06/17 08:00 General appearance: Present: cooperative, A&O X 3, severe distress (anxious, nervous, tremulous, agitated but no combative or hallucinating) - Head Head exam: Present: atraumatic, normocephalic - Eye Eye exam: Present: PERRL, conjuntiva pink, sclera anicteric Pupils: Present: PERRL - Neck Neck exam general surgery: Present: supple, trachea midline. Absent: lymphadenopathy - Respiratory Respiratory exam: Present: CTAB. Absent: accessory muscle use, rales, rhonchi, wheezes - Cardiovascular Cardiovascular exam: Present: RRR, +S1, +S2. Absent: diastolic murmur, gallop, rubs, systolic murmur - GI/Abdominal GI/Abdominal exam: Present: normal bowel sounds, soft, no peritoneal signs. Absent: distended, tenderness - Extremities Exam Extremities exam: Present: warm, radial pulses palpable and symmetrical. Absent : calf tenderness, cyanotic, pedal edema - Neurological Exam Neurological exam: Present: CN II-XII intact, oriented X3, no focal deficits. Absent: pronater drift, facial droop, speech deficit - Skin Skin exam: Present: dry, intact
[2017-06-06] MEDS: 0.9 % Sodium Chloride 1,000 ML IVC SCH (12:34)
[2017-06-06] MEDS: Thiamine (B-1) 100 MG, Folic Acid 1 MG, MVI, adult with vitamin K 10 ML in 0.9 % Sodi... IVPB SCH (17:18)
[2017-06-06] MEDS: Divalproex (24 HR) 250 MG TABLET PO SCH (21:27)
[2017-06-07] MEDS: 0.9 % Sodium Chloride 1,000 ML IVC SCH (02:35)
[2017-06-07] MEDS: *HR* Heparin 5,000 UNIT/ML VIAL SQ SCH ×3 (05:52→21:14)
[2017-06-07] MEDS: Budesonide/Formoterol 160/4.5 MDI IH SCH ×2 (08:00→20:58)
[2017-06-07] MEDS: Nicotine 21 MG PATCH.TD24 TD SCH (08:24)
[2017-06-07] MEDS: Magnesium Oxide 400 MG TABLET PO SCH ×2 (08:24→21:13)
[2017-06-07] MEDS: amLODIPine 5 MG TABLET PO SCH (08:24)
[2017-06-07] MEDS: traZODone 50 MG TABLET PO SCH ×3 (08:24→21:13)
[2017-06-07] MEDS: Gabapentin 300 MG CAPSULE PO SCH ×3 (08:24→21:13)
[2017-06-07] MEDS: Pantoprazole 40 MG VIAL IVP SCH (08:24)
[2017-06-07 08:31] LABS: Basophils % 0.2 %; Eosinophils % 1.9 %; Hematocrit 36.6 % (37.5-50.1); Hemoglobin 11.1 g/dL (12.9-16.9); Immature Granulocytes % 0.2 % (0-4); Lymphocytes % 25.3 %; Mean Corpuscular HGB Conc 30.3 g/dL (31.6-35.5); Mean Corpuscular Volume 89.1 fL (83.0-100.0); Mean Platelet Volume 9.8 fL (9.4-12.4); Monocytes % 5.4 %; Red Blood Count 4.11 M/mcL (4.19-5.50); Red Cell Distribution Width 15.9 % (11.5-14.5)
[2017-06-07 08:32] LABS: Eosinophils # 0.1 K/mcL (0.0-0.6); Lymphocytes # 1.4 K/mcL (0.6-4.6); Monocytes # 0.3 K/mcL (0.0-1.3); Neutrophils # 3.8 K/mcL (1.6-8.9); Platelet Count 71 K/mcL (140-400)
[2017-06-07 08:49] LABS: Amylase 30 Units/L (25-125); Lipase 19 Units/L (8-78)
[2017-06-07 08:50] LABS: Alanine Aminotransferase 29 Units/L (0-55); Albumin 3.4 g/dL (3.5-5.0); Albumin/Globulin Ratio 0.9 (1.1-2.2); Alkaline Phosphatase 85 Units/L (38-126); Aspartate Amino Transferase 39 Units/L (5-34); BUN/Creatinine Ratio 8 (6-26); Bilirubin,Total 0.5 mg/dL (0.2-1.2); Blood Urea Nitrogen 8 mg/dL (8-26); Calcium 9.1 mg/dL (8.6-10.8); Carbon Dioxide 23 mEq/L (19-29); Chloride 112 mEq/L (98-109); Globulin 3.8 g/dL (2.4-3.5); Glucose 84 mg/dL (70-99); Magnesium 1.9 mg/dL (1.6-2.6); Osmolality,Calculated 292 (280-300); Phosphorous 2.4 mg/dL (2.3-4.7); Potassium 3.5 mEq/L (3.5-4.5); Sodium 142 mEq/L (136-145); Total Protein 7.2 g/dL (6.0-8.3); eGFR For African Americans > 60 (> 60); eGFR For Non-African Americans > 60 (> 60)
--- NOTE | 2017-06-07 10:41 | Internal Med Progress Note ---
Date of Encounter: 06/07/17 Time of Encounter: 10:39 - Assessment and plan (1) Alcohol withdrawal Current Visit: Yes Status: Acute Qualifiers: Complication of substance-induced condition: uncomplicated Qualified Code(s ): F10.230 - Alcohol dependence with withdrawal, uncomplicated (2) Alcohol intoxication Current Visit: Yes Status: Chronic Qualifiers: Complication of substance-induced condition: with delirium Qualified Code(s ): F10.921 - Alcohol use, unspecified with intoxication delirium (3) COPD (chronic obstructive pulmonary disease) Current Visit: No Status: Chronic Qualifiers: COPD type: unspecified COPD Qualified Code(s): J44.9 - Chronic obstructive pulmonary disease, unspecified (4) Psychiatric disorder Current Visit: No Status: Chronic (5) Bipolar disorder, unspecified Current Visit: No Status: Chronic Qualifiers: Active/Remission status: currently active Current bipolar episode type: mixed Current episode severity: unspecified Qualified Code(s): F31.60 - Bipolar disorder, current episode mixed, unspecified (6) Schizophrenia Current Visit: No Status: Chronic Qualifiers: Schizophrenia type: unspecified Qualified Code(s): F20.9 - Schizophrenia, unspecified (7) DVT prophylaxis Current Visit: Yes Status: Acute - Subjective Interval history: Mr. Lauri Temple is a 62-year-old male who has history of alcoholism with several relapses and multiple attempts of rehabilitation. He has returned with the same problem. He is very tremulous shaking badly. He does have a tendency to to exaggerate his symptoms as we know from our. Previous experience. Nursing CIWA scores have been running high in the range of 20-27. I gave him Valium 10 mg IV and that seems to have put him to sleep and he feels calm. I think we can continue using when necessary Ativan according to CIWA but if is a scores are high then Valium can be used. He is on IV fluid and time and multivitamin folic acid. Patient has underlying bipolar disorder and schizophrenia 06/05 patient sleeping easily arousable complaining of generalized abdominal pain. Amylase and lipase were checked and they are negative. Ultrasound is ordered. He will continue to be in by mouth. His tremulousness has gone and it seems like that he is doing much better regarding his alcohol withdrawal. 06/06 discharge summary dictated 06/07 Mr. olvera was taken off CIWA protocol yesterday. On our examination he has been doing pretty well and he was discharged however patient has refused to leave claiming that to he is unsteady on his gait. His IV fluids and daily labs will be stopped as he appears quite dehydrated and lab work is quite stable reflecting his stable pancytopenia known to be secondary to alcoholism as well as his LFTs which have also shown improvement. I will stop all benzodiazepines and narcotics to see if his unsteadiness improves and also asked physical therapy to evaluate to see if he is a candidate for rehabilitation. As noted above his WBC count amylase and lipase and ultrasound of the abdomen all were negative and we suspect that his abdominal discomfort was mainly due to dyspepsia related to possible gastritis secondary to alcoholism. His hemoglobin remained stable. - Constitutional Vitals: Temp Pulse Resp BP Pulse Ox 97.7 F 89 16 131/93 97 06/07/17 07:42 06/07/17 07:42 06/07/17 08:00 06/07/17 07:42 06/07/17 08:00 General appearance: Present: cooperative, A&O X 3, severe distress (anxious, nervous, tremulous, agitated but no combative or hallucinating) - Head Head exam: Present: atraumatic, normocephalic - Eye Eye exam: Present: PERRL, conjuntiva pink, sclera anicteric Pupils: Present: PERRL - Neck Neck exam general surgery: Present: supple, trachea midline. Absent: lymphadenopathy - Respiratory Respiratory exam: Present: CTAB. Absent: accessory muscle use, rales, rhonchi, wheezes - Cardiovascular Cardiovascular exam: Present: RRR, +S1, +S2. Absent: diastolic murmur, gallop, rubs, systolic murmur - GI/Abdominal GI/Abdominal exam: Present: normal bowel sounds, soft, no peritoneal signs. Absent: distended, tenderness - Extremities Exam Extremities exam: Present: warm, radial pulses palpable and symmetrical. Absent : calf tenderness, cyanotic, pedal edema - Neurological Exam Neurological exam: Present: CN II-XII intact, oriented X3, no focal deficits. Absent: pronater drift, facial droop, speech deficit - Skin Skin exam: Present: dry, intact Internal Medicine: Result - Labs CBC & Chem 7: 06/07/17 08:14 06/07/17 08:14 Labs: Short CBC 06/07/17 Range/Units 08:14 WBC 5.7 D (4.3-11.1) K/mcL Hgb 11.1 L (12.9-16.9) g/dL Hct 36.6 L (37.5-50.1) % Plt Count 71 L (140-400) K/mcL Neutrophils # 3.8 (1.6-8.9) K/mcL BMP 06/07/17 08:14 Sodium 142 Potassium 3.5 Chloride 112 H Carbon Dioxide 23 BUN 8 Creatinine 0.96 Glucose 84 Calcium 9.1 Liver Function 06/07/17 Range/Units 08:14 Total Bilirubin 0.5 (0.2-1.2) mg/dL AST 39 H (5-34) Units/L ALT 29 (0-55) Units/L Alkaline Phosphatase 85 (38-126) Units/L Albumin 3.4 L (3.5-5.0) g/dL - ABG Interpretation ABG results: PT/INR, D-dimer PT 11.4 Seconds (9.4-12.1) 06/03/17 19:10 Consult Discharge Plan - Plan Instructions: Atrial Fibrillation (DC), Chronic Obstructive Pulmonary Disease ( DC), Alcohol Intoxication (DC), Alcohol Intoxication (GEN), Abuse of Alcohol (DC ), Abuse of Alcohol (GEN), Chronic Hypertension (DC) Referrals: Terence Barahona MD [Primary Care Provider] - 06/11/17 10:15 am
[2017-06-07] MEDS: Divalproex (24 HR) 250 MG TABLET PO SCH (22:47)
[2017-06-08] MEDS: *HR* Heparin 5,000 UNIT/ML VIAL SQ SCH ×3 (05:42→21:45)
[2017-06-08] MEDS: Budesonide/Formoterol 160/4.5 MDI IH SCH ×2 (07:43→20:17)
--- NOTE | 2017-06-08 14:18 | Internal Med Progress Note ---
Date of Encounter: 06/08/17 Time of Encounter: 14:16 - Assessment and plan (1) Alcohol withdrawal Current Visit: Yes Status: Acute Qualifiers: Complication of substance-induced condition: uncomplicated Qualified Code(s ): F10.230 - Alcohol dependence with withdrawal, uncomplicated (2) Alcohol intoxication Current Visit: Yes Status: Chronic Qualifiers: Complication of substance-induced condition: with delirium Qualified Code(s ): F10.921 - Alcohol use, unspecified with intoxication delirium (3) COPD (chronic obstructive pulmonary disease) Current Visit: No Status: Chronic Qualifiers: COPD type: unspecified COPD Qualified Code(s): J44.9 - Chronic obstructive pulmonary disease, unspecified (4) Psychiatric disorder Current Visit: No Status: Chronic (5) Bipolar disorder, unspecified Current Visit: No Status: Chronic Qualifiers: Active/Remission status: currently active Current bipolar episode type: mixed Current episode severity: unspecified Qualified Code(s): F31.60 - Bipolar disorder, current episode mixed, unspecified (6) Schizophrenia Current Visit: No Status: Chronic Qualifiers: Schizophrenia type: unspecified Qualified Code(s): F20.9 - Schizophrenia, unspecified (7) DVT prophylaxis Current Visit: Yes Status: Acute - Subjective Interval history: Mr. Lauri Temple is a 62-year-old male who has history of alcoholism with several relapses and multiple attempts of rehabilitation. He has returned with the same problem. He is very tremulous shaking badly. He does have a tendency to to exaggerate his symptoms as we know from our. Previous experience. Nursing CIWA scores have been running high in the range of 20-27. I gave him Valium 10 mg IV and that seems to have put him to sleep and he feels calm. I think we can continue using when necessary Ativan according to CIWA but if is a scores are high then Valium can be used. He is on IV fluid and time and multivitamin folic acid. Patient has underlying bipolar disorder and schizophrenia 06/05 patient sleeping easily arousable complaining of generalized abdominal pain. Amylase and lipase were checked and they are negative. Ultrasound is ordered. He will continue to be in by mouth. His tremulousness has gone and it seems like that he is doing much better regarding his alcohol withdrawal. 06/06 discharge summary dictated 06/07 Mr. olvera was taken off CIWA protocol yesterday. On our examination he has been doing pretty well and he was discharged however patient has refused to leave claiming that to he is unsteady on his gait. His IV fluids and daily labs will be stopped as he appears quite dehydrated and lab work is quite stable reflecting his stable pancytopenia known to be secondary to alcoholism as well as his LFTs which have also shown improvement. I will stop all benzodiazepines and narcotics to see if his unsteadiness improves and also asked physical therapy to evaluate to see if he is a candidate for rehabilitation. As noted above his WBC count amylase and lipase and ultrasound of the abdomen all were negative and we suspect that his abdominal discomfort was mainly due to dyspepsia related to possible gastritis secondary to alcoholism. His hemoglobin remained stable. 06/08 patient is very sleepy he would open his eyes after several time I called him and noted to have food in his mouth. But he is hemodynamically stable and breathing okay and we did a CT head this morning which is negative. He seems to withdraw his extremities well. Lab work is okay. Except for his scheduled medicine he did not get any benzodiazepine sedatives or pain medicines. At this point we are observing will check on him again. - Constitutional Vitals: Temp Pulse Resp BP Pulse Ox 98.3 F 86 19 102/71 96 06/08/17 11:52 06/08/17 11:52 06/08/17 11:52 06/08/17 11:52 06/08/17 11:52 Exam: Very sleepy and groggy - Head Head exam: Present: atraumatic, normocephalic - Eye Eye exam: Present: PERRL, conjuntiva pink, sclera anicteric Pupils: Present: PERRL - Neck Neck exam general surgery: Present: supple, trachea midline. Absent: lymphadenopathy - Respiratory Respiratory exam: Present: CTAB. Absent: accessory muscle use, rales, rhonchi, wheezes - Cardiovascular Cardiovascular exam: Present: RRR, +S1, +S2. Absent: diastolic murmur, gallop, rubs, systolic murmur - GI/Abdominal GI/Abdominal exam: Present: normal bowel sounds, soft, no peritoneal signs. Absent: distended, tenderness - Extremities Exam Extremities exam: Present: warm, radial pulses palpable and symmetrical. Absent : calf tenderness, cyanotic, pedal edema - Neurological Exam Neurological exam: Present: CN II-XII intact, oriented X3, no focal deficits. Absent: pronater drift, facial droop, speech deficit - Skin Skin exam: Present: dry, intact Internal Medicine: Result - Labs CBC & Chem 7: 06/07/17 08:14 06/07/17 08:14 - ABG Interpretation ABG results: PT/INR, D-dimer PT 11.4 Seconds (9.4-12.1) 06/03/17 19:10 - Impressions Impressions Head CT 06/08/17 09:07 IMPRESSION: 1. No acute intracranial abnormality. 2. Diffuse cerebral atrophy. D/ / Abdirashid Sosa MD / Abdirashid Sosa MD Interpreting Provider: Abdirashid Sosa MD Consult Discharge Plan - Plan Instructions: Atrial Fibrillation (DC), Chronic Obstructive Pulmonary Disease ( DC), Alcohol Intoxication (DC), Alcohol Intoxication (GEN), Abuse of Alcohol (DC ), Abuse of Alcohol (GEN), Chronic Hypertension (DC) Referrals: Terence Barahona MD [Primary Care Provider] - 06/11/17 10:15 am
[2017-06-08] MEDS: Gabapentin 300 MG CAPSULE PO SCH ×3 (14:44→21:39)
[2017-06-08] MEDS: amLODIPine 5 MG TABLET PO SCH (14:44)
[2017-06-08] MEDS: Nicotine 21 MG PATCH.TD24 TD SCH (14:44)
[2017-06-08] MEDS: Magnesium Oxide 400 MG TABLET PO SCH ×2 (14:44→21:39)
[2017-06-08] MEDS: traZODone 50 MG TABLET PO SCH ×3 (14:44→21:41)
[2017-06-08] MEDS: Divalproex (24 HR) 250 MG TABLET PO SCH (21:34)
[2017-06-09] MEDS: *HR* Heparin 5,000 UNIT/ML VIAL SQ SCH ×3 (05:22→22:26)
[2017-06-09] MEDS: Budesonide/Formoterol 160/4.5 MDI IH SCH ×2 (07:43→21:30)
[2017-06-09 09:41] LABS: Basophils % 0.4 %; Eosinophils # 0.1 K/mcL (0.0-0.6); Eosinophils % 3.1 %; Hematocrit 35.3 % (37.5-50.1); Hemoglobin 10.9 g/dL (12.9-16.9); Immature Granulocytes % 0.4 % (0-4); Lymphocytes # 1.4 K/mcL (0.6-4.6); Lymphocytes % 30.2 %; Mean Corpuscular HGB Conc 30.9 g/dL (31.6-35.5); Mean Corpuscular Hemoglobin 27.3 pg (28.0-33.3); Mean Corpuscular Volume 88.3 fL (83.0-100.0); Mean Platelet Volume 10.3 fL (9.4-12.4); Monocytes # 0.3 K/mcL (0.0-1.3); Monocytes % 7.4 %; Neutrophils # 2.6 K/mcL (1.6-8.9); Red Cell Distribution Width 16.2 % (11.5-14.5); Segmented Neutrophils % 58.5 %
[2017-06-09 09:42] LABS: Platelet Count 88 K/mcL (140-400)
[2017-06-09 09:58] LABS: Alanine Aminotransferase 26 Units/L (0-55); Albumin 3.2 g/dL (3.5-5.0); Albumin/Globulin Ratio 0.8 (1.1-2.2); Alkaline Phosphatase 76 Units/L (38-126); Aspartate Amino Transferase 32 Units/L (5-34); BUN/Creatinine Ratio 12 (6-26); Bilirubin,Total 0.5 mg/dL (0.2-1.2); Blood Urea Nitrogen 10 mg/dL (8-26); Calcium 9.1 mg/dL (8.6-10.8); Carbon Dioxide 24 mEq/L (19-29); Chloride 110 mEq/L (98-109); Globulin 3.9 g/dL (2.4-3.5); Glucose 78 mg/dL (70-99); Osmolality,Calculated 288 (280-300); Potassium 3.7 mEq/L (3.5-4.5); Sodium 140 mEq/L (136-145); Total Protein 7.1 g/dL (6.0-8.3); eGFR For African Americans > 60 (> 60); eGFR For Non-African Americans > 60 (> 60)
[2017-06-09] MEDS: Magnesium Oxide 400 MG TABLET PO SCH ×2 (11:57→22:27)
[2017-06-09] MEDS: Gabapentin 300 MG CAPSULE PO SCH (11:57)
[2017-06-09] MEDS: Nicotine 21 MG PATCH.TD24 TD SCH (11:57)
[2017-06-09] MEDS: amLODIPine 5 MG TABLET PO SCH (11:57)
[2017-06-09] MEDS: traZODone 50 MG TABLET PO SCH (11:58)
--- NOTE | 2017-06-09 16:19 | Internal Med Progress Note ---
Date of Encounter: 06/09/17 Time of Encounter: 16:17 - Assessment and plan (1) Alcohol withdrawal Current Visit: Yes Status: Acute Qualifiers: Complication of substance-induced condition: uncomplicated Qualified Code(s ): F10.230 - Alcohol dependence with withdrawal, uncomplicated (2) Alcohol intoxication Current Visit: Yes Status: Chronic Qualifiers: Complication of substance-induced condition: with delirium Qualified Code(s ): F10.921 - Alcohol use, unspecified with intoxication delirium (3) COPD (chronic obstructive pulmonary disease) Current Visit: No Status: Chronic Qualifiers: COPD type: unspecified COPD Qualified Code(s): J44.9 - Chronic obstructive pulmonary disease, unspecified (4) Psychiatric disorder Current Visit: No Status: Chronic (5) Bipolar disorder, unspecified Current Visit: No Status: Chronic Qualifiers: Active/Remission status: currently active Current bipolar episode type: mixed Current episode severity: unspecified Qualified Code(s): F31.60 - Bipolar disorder, current episode mixed, unspecified (6) Schizophrenia Current Visit: No Status: Chronic Qualifiers: Schizophrenia type: unspecified Qualified Code(s): F20.9 - Schizophrenia, unspecified (7) DVT prophylaxis Current Visit: Yes Status: Acute - Subjective Interval history: Mr. Lauri Temple is a 62-year-old male who has history of alcoholism with several relapses and multiple attempts of rehabilitation. He has returned with the same problem. He is very tremulous shaking badly. He does have a tendency to to exaggerate his symptoms as we know from our. Previous experience. Nursing CIWA scores have been running high in the range of 20-27. I gave him Valium 10 mg IV and that seems to have put him to sleep and he feels calm. I think we can continue using when necessary Ativan according to CIWA but if is a scores are high then Valium can be used. He is on IV fluid and time and multivitamin folic acid. Patient has underlying bipolar disorder and schizophrenia 06/05 patient sleeping easily arousable complaining of generalized abdominal pain. Amylase and lipase were checked and they are negative. Ultrasound is ordered. He will continue to be in by mouth. His tremulousness has gone and it seems like that he is doing much better regarding his alcohol withdrawal. 06/06 discharge summary dictated 06/07 Mr. olvera was taken off CIWA protocol yesterday. On our examination he has been doing pretty well and he was discharged however patient has refused to leave claiming that to he is unsteady on his gait. His IV fluids and daily labs will be stopped as he appears quite dehydrated and lab work is quite stable reflecting his stable pancytopenia known to be secondary to alcoholism as well as his LFTs which have also shown improvement. I will stop all benzodiazepines and narcotics to see if his unsteadiness improves and also asked physical therapy to evaluate to see if he is a candidate for rehabilitation. As noted above his WBC count amylase and lipase and ultrasound of the abdomen all were negative and we suspect that his abdominal discomfort was mainly due to dyspepsia related to possible gastritis secondary to alcoholism. His hemoglobin remained stable. 06/08 patient is very sleepy he would open his eyes after several time I called him and noted to have food in his mouth. But he is hemodynamically stable and breathing okay and we did a CT head this morning which is negative. He seems to withdraw his extremities well. Lab work is okay. Except for his scheduled medicine he did not get any benzodiazepine sedatives or pain medicines. At this point we are observing will check on him again. 06/09 is still quite drowsy. Arousable with verbal command. Seems otherwise quite comfortable and hemodynamically stable. Stop trazodone and amytryptaline. - Constitutional Vitals: Temp Pulse Resp BP Pulse Ox 97.7 F 82 16 122/86 98 06/09/17 04:04 06/09/17 16:00 06/09/17 16:00 06/09/17 16:00 06/09/17 16:00 General appearance: Present: cooperative, A&O X 3, severe distress (anxious, nervous, tremulous, agitated but no combative or hallucinating) - Head Head exam: Present: atraumatic, normocephalic - Eye Eye exam: Present: PERRL, conjuntiva pink, sclera anicteric Pupils: Present: PERRL - Neck Neck exam general surgery: Present: supple, trachea midline. Absent: lymphadenopathy - Respiratory Respiratory exam: Present: CTAB. Absent: accessory muscle use, rales, rhonchi, wheezes - Cardiovascular Cardiovascular exam: Present: RRR, +S1, +S2. Absent: diastolic murmur, gallop, rubs, systolic murmur - GI/Abdominal GI/Abdominal exam: Present: normal bowel sounds, soft, no peritoneal signs. Absent: distended, tenderness - Extremities Exam Extremities exam: Present: warm, radial pulses palpable and symmetrical. Absent : calf tenderness, cyanotic, pedal edema - Neurological Exam Neurological exam: Present: no focal deficits. Absent: pronater drift, facial droop, speech deficit Additional comments: Somnolent otherwise nonfocal exam - Skin Skin exam: Present: dry, intact Internal Medicine: Result - Labs CBC & Chem 7: 06/09/17 09:39 06/09/17 09:39 Labs: Short CBC 06/09/17 Range/Units 09:39 WBC 4.5 (4.3-11.1) K/mcL Hgb 10.9 L (12.9-16.9) g/dL Hct 35.3 L (37.5-50.1) % Plt Count 88 L (140-400) K/mcL Neutrophils # 2.6 (1.6-8.9) K/mcL BMP 06/09/17 09:39 Sodium 140 Potassium 3.7 Chloride 110 H Carbon Dioxide 24 BUN 10 Creatinine 0.82 Glucose 78 Calcium 9.1 Liver Function 06/09/17 Range/Units 09:39 Total Bilirubin 0.5 (0.2-1.2) mg/dL AST 32 (5-34) Units/L ALT 26 (0-55) Units/L Alkaline Phosphatase 76 (38-126) Units/L Albumin 3.2 L (3.5-5.0) g/dL - ABG Interpretation ABG results: PT/INR, D-dimer PT 11.4 Seconds (9.4-12.1) 06/03/17 19:10 Consult Discharge Plan - Plan Instructions: Atrial Fibrillation (DC), Chronic Obstructive Pulmonary Disease ( DC), Alcohol Intoxication (DC), Alcohol Intoxication (GEN), Abuse of Alcohol (DC ), Abuse of Alcohol (GEN), Chronic Hypertension (DC) Referrals: Terence Barahona MD [Primary Care Provider] - 06/11/17 10:15 am
[2017-06-09] MEDS: Folic Acid 1 MG TABLET PO SCH (17:30)
[2017-06-09] MEDS: Vitamin B Complex/Vit C/Vit E 1 EACH TABLET PO SCH (17:30)
[2017-06-09] MEDS: Thiamine (B-1) 100 MG TABLET PO SCH (17:30)
[2017-06-09] MEDS: Divalproex (24 HR) 250 MG TABLET PO SCH (22:26)
[2017-06-10] MEDS: *HR* Heparin 5,000 UNIT/ML VIAL SQ SCH (06:46)
[2017-06-10] MEDS: Thiamine (B-1) 100 MG TABLET PO SCH (08:37)
[2017-06-10] MEDS: amLODIPine 5 MG TABLET PO SCH (08:37)
[2017-06-10] MEDS: Magnesium Oxide 400 MG TABLET PO SCH (08:37)
[2017-06-10] MEDS: Vitamin B Complex/Vit C/Vit E 1 EACH TABLET PO SCH (08:38)
[2017-06-10] MEDS: Nicotine 21 MG PATCH.TD24 TD SCH (08:38)
[2017-06-10] MEDS: Folic Acid 1 MG TABLET PO SCH (08:38)
[2017-06-10] MEDS: Budesonide/Formoterol 160/4.5 MDI IH SCH (11:20)
[2017-06-10 11:32] VITALS: BP 122/83
--- NOTE | 2017-06-10 14:44 | Discharge Summary ---
Date of Encounter: 06/10/17 Time of Encounter: 14:36 - Discharge Diagnosis (1) Alcohol withdrawal Priority: Primary Status: Acute Qualifiers: Complication of substance-induced condition: uncomplicated Qualified Code(s ): F10.230 - Alcohol dependence with withdrawal, uncomplicated (2) Alcohol intoxication Priority: Secondary Status: Chronic Qualifiers: Complication of substance-induced condition: with delirium Qualified Code(s ): F10.921 - Alcohol use, unspecified with intoxication delirium (3) COPD (chronic obstructive pulmonary disease) Priority: Secondary Status: Chronic Qualifiers: COPD type: unspecified COPD Qualified Code(s): J44.9 - Chronic obstructive pulmonary disease, unspecified (4) Psychiatric disorder Priority: Secondary Status: Chronic (5) Bipolar disorder, unspecified Priority: Secondary Status: Chronic Qualifiers: Active/Remission status: currently active Current bipolar episode type: mixed Current episode severity: unspecified Qualified Code(s): F31.60 - Bipolar disorder, current episode mixed, unspecified (6) Schizophrenia Priority: Secondary Status: Chronic Qualifiers: Schizophrenia type: unspecified Qualified Code(s): F20.9 - Schizophrenia, unspecified (7) DVT prophylaxis Priority: Secondary Status: Acute - Discharge Medications Home Medications: Albuterol Sulfate [Proair Hfa] 2 puff IH Q4H PRN 12/21/16 [History] Quetiapine Fumarate [Seroquel] 300 mg PO HS 12/21/16 [History] SUMAtriptan succinate [Imitrex] 6 mg SQ AD PRN 12/21/16 [History] Lipase/Protease/Amylase [Creon Dr 12,000 Units Capsule] 3 cap PO TIDWM 03/15/17 [History] Omeprazole [PriLOSEC] 20 mg PO DAILY 03/15/17 [History] Amitriptyline HCl 75 mg PO HS 03/27/17 [History] Amlodipine Besylate 10 mg PO DAILY 03/27/17 [History] Budesonide/Formoterol 160/4.5 [Symbicort 160/4.5] 1 puff IH BIDR 03/27/17 [ History] Desonide [Tridesilon] 1 appl TP BID PRN 03/27/17 [History] Folic Acid 2 mg PO DAILY 03/27/17 [History] Hydrocortisone 1% CREAM [Cortaid] 1 appl TP BID PRN 03/27/17 [History] Magnesium Oxide [Mag-Ox] 400 mg PO BID 03/27/17 [History] Thiamine (B-1) [Vitamin B-1] 100 mg PO BID 03/27/17 [History] traZODone [TraZODone] 50 mg PO TID 03/27/17 [History] Cholecalciferol (Vitamin D3) [Vitamin D3] 1,000 unit PO DAILY 04/23/17 [History] Cyanocobalamin (Vitamin B-12) [Vitamin B-12] 500 mcg PO DAILY 06/03/17 [History] Divalproex (24 HR) [Depakote ER (24 HR)] 1,250 mg PO HS 06/03/17 [History] Gabapentin [Neurontin] 600 mg PO TID 06/03/17 [History] Ketoconazole Shampoo [Nizoral Shampoo] 1 appl TP 2XW 06/03/17 [History] Lactobacillus [Culturelle] 1 each PO BID 06/03/17 [History] Nicotine Patch [Nicoderm] 21 mg TD DAILY 06/06/17 [Rx] Allergies/Adverse Reactions: 3 Allergy/AdvReac Type Severity Reaction Status Date / Time Buspirone [From BuSpar] AdvReac See Verified 05/11/17 12:41 Comments tramadol AdvReac See Verified 06/03/17 22:13 Comments Procedures/tests Complete & Pending: Procedures Performed prior 72 hours Category Date Time Status CT head/brain wo con [CT] Stat Cat Scan 06/08/17 09:07 Completed Date of admission: 06/04/17 03:39 Primary care physician: Terence Barahona MD Consults: 06/04/17 08:20 PICC LINE [Consult to Invasive Line Access Team] [CONS] Stat Reason for Consult: no iv access very poor Line Type: Midline PICC line indications: Limited vascular access Call Completed: No 06/04/17 11:57 Consult to [employer] Sales Director [CONS] Routine Reason for SW Consult: BC ALREADY SPOKE W/TATIANNA,SW 06/07/17 07:49 PT [Consult to Physical Therapy] [CONS] Routine Comment: Evaluate, develop and implement POC Reason for Consult: Patient states he is weak and does not feel safe going home. 06/07/17 10:33 Consult to Physical Therapy [CONS] Routine Comment: Evaluate, develop and implement POC Reason for Consult: Patient claims that he is unsteady on his gait and concern about his safety please evaluate and treat 06/08/17 09:01 OT [Consult to Occupational Therapy] [CONS] Routine Comment: Evaluate, develop and implement POC Reason for Consult: Patient having difficulty with ADL's Discharging clinician: Gera Albarran Anticipated date of discharge: 06/10/17 - Patient Status Disposition: Transfer SNF Condition: Fair Overall status at discharge: patient is progressing back to baseline - Discharge Instructions Instructions: Atrial Fibrillation (DC), Chronic Obstructive Pulmonary Disease ( DC), Alcohol Intoxication (DC), Alcohol Intoxication (GEN), Abuse of Alcohol (DC ), Abuse of Alcohol (GEN), Chronic Hypertension (DC) Follow Up With: Terence Barahona MD [Primary Care Provider] - 06/11/17 10:15 am - Diet and Activity Activity: as per physical therapy Diet: advance to your usual diet Hospital course: Mr. Lauri Temple is a 62-year-old male who has history of alcoholism with several relapses and multiple attempts of rehabilitation. He has returned with the same problem. Patient was treated conservatively according to CIWA scale. Patient condition improved. He complained of some abdominal pain and therefore amylase lipase and ultrasound of the abdomen done which were unremarkable. As he improved his own medication was started but he becomes very drowsy therefore we had to stop trazodone and nortriptyline. He is quite stable on Seroquel. He was complaining of weakness therefore be due to liver was obtained and is recommended to go to nursing facility. - Time Spent with Patient Total time spent providing and/or coordinating discharge services: Greater than 30 minutes - Constitutional Vitals: Temp Pulse Resp BP Pulse Ox 97.6 F 84 14 122/83 92 06/10/17 11:27 06/10/17 11:27 06/10/17 11:27 06/10/17 11:27 06/10/17 11:27 General appearance: Present: cooperative, A&O X 3, severe distress (anxious, nervous, tremulous, agitated but no combative or hallucinating) - Head Head exam: Present: atraumatic, normocephalic - Eye Eye exam: Present: PERRL, conjuntiva pink, sclera anicteric Pupils: Present: PERRL - Neck Neck exam general surgery: Present: supple, trachea midline. Absent: lymphadenopathy - Respiratory Respiratory exam: Present: CTAB. Absent: accessory muscle use, rales, rhonchi, wheezes - Cardiovascular Cardiovascular exam: Present: RRR, +S1, +S2. Absent: diastolic murmur, gallop, rubs, systolic murmur - GI/Abdominal GI/Abdominal exam: Present: normal bowel sounds, soft, no peritoneal signs. Absent: distended, tenderness - Extremities Exam Extremities exam: Present: warm, radial pulses palpable and symmetrical. Absent : calf tenderness, cyanotic, pedal edema - Neurological Exam Neurological exam: Present: CN II-XII intact, oriented X3, no focal deficits. Absent: pronater drift, facial droop, speech deficit - Skin Skin exam: Present: dry, intact
--- NOTE | 2017-06-10 14:52 | Physician Discharge Referral ---
ExtendedCare Referral Info Transfer To: SNF Provider in Charge: jayme Provider in Charge after Transfer: PCP Institutional Level of Care: Skilled - Diagnosis (1) Alcohol withdrawal Status: Acute (2) Alcohol intoxication Status: Chronic (3) COPD (chronic obstructive pulmonary disease) Status: Chronic (4) Psychiatric disorder Status: Chronic (5) Bipolar disorder, unspecified Status: Chronic (6) Schizophrenia Status: Chronic (7) DVT prophylaxis Status: Acute - Transfer Medications Home Medications: Albuterol Sulfate [Proair Hfa] 2 puff IH Q4H PRN 12/21/16 [History] Quetiapine Fumarate [Seroquel] 300 mg PO HS 12/21/16 [History] SUMAtriptan succinate [Imitrex] 6 mg SQ AD PRN 12/21/16 [History] Lipase/Protease/Amylase [Creon Dr 12,000 Units Capsule] 3 cap PO TIDWM 03/15/17 [History] Omeprazole [PriLOSEC] 20 mg PO DAILY 03/15/17 [History] Amlodipine Besylate 10 mg PO DAILY 03/27/17 [History] Budesonide/Formoterol 160/4.5 [Symbicort 160/4.5] 1 puff IH BIDR 03/27/17 [ History] Desonide [Tridesilon] 1 appl TP BID PRN 03/27/17 [History] Folic Acid 2 mg PO DAILY 03/27/17 [History] Hydrocortisone 1% CREAM [Cortaid] 1 appl TP BID PRN 03/27/17 [History] Magnesium Oxide [Mag-Ox] 400 mg PO BID 03/27/17 [History] Thiamine (B-1) [Vitamin B-1] 100 mg PO BID 03/27/17 [History] Cholecalciferol (Vitamin D3) [Vitamin D3] 1,000 unit PO DAILY 04/23/17 [History] Cyanocobalamin (Vitamin B-12) [Vitamin B-12] 500 mcg PO DAILY 06/03/17 [History] Divalproex (24 HR) [Depakote ER (24 HR)] 1,250 mg PO HS 06/03/17 [History] Gabapentin [Neurontin] 600 mg PO TID 06/03/17 [History] Ketoconazole Shampoo [Nizoral Shampoo] 1 appl TP 2XW 06/03/17 [History] Lactobacillus [Culturelle] 1 each PO BID 06/03/17 [History] Nicotine Patch [Nicoderm] 21 mg TD DAILY 06/06/17 [Rx] Omeprazole [PriLOSEC] 20 mg PO DAILY@0730 06/10/17 [Rx] Allergies/Adverse Reactions: 3 Allergy/AdvReac Type Severity Reaction Status Date / Time Buspirone [From BuSpar] AdvReac See Verified 05/11/17 12:41 Comments tramadol AdvReac See Verified 06/03/17 22:13 Comments - Respiratory Orders Smoking Cessation: Smoking cessation has been advised. For more information, call the [place] Tobacco Quit Line at 6-793-QZEV-NOW. - Rehabiliation Orders Rehab Orders: ROM Exercises, Evaluation for Physical Therapy, Evaluation for Occupational Therapy, Evaluation for Speech Therapy CERTIFICATION: I certify that the transfer of the above named patient to an Extended Care Facility is necessary for the continuing treatment of the diagnosis listed. The above information is true and accurate reflection of patient's current condition. Confidential - Redisclosure prohibited without a patient's written consent.
== END 2017-06-10 17:52 | DRG 897 ==
LOC: EMEROO 17:48 → 2NENU 17:48
PROVIDERS: ADMIT Internal Medicine; ATTEND Internal Medicine

== ENCOUNTER 2017-06-28 15:52 | Inpatient (IN) ==
[2017-06-28] MEDS ORDERED: Nitroglycerin 0.4 MG TAB.SUBL SL ONE (15:54)
[2017-06-28] MEDS ORDERED: Aspirin 81 MG TAB.CHEW PO ONE (15:54)
[2017-06-28] MEDS ORDERED: Thiamine (B-1) 100 MG in D5% in Water 50 ML IVPB ONE (16:05)
[2017-06-28] MEDS ORDERED: Folic Acid 1 MG in D5% in Water 50 ML IVPB ONE (16:05)
[2017-06-28] MEDS ORDERED: *HR* LORazepam 2 MG/ML VIAL IVP ONE (16:05)
[2017-06-28] MEDS ORDERED: MVI, adult with vitamin K 10 ML in 0.9 % Sodium Chloride 1,000 ML IVC ONE (16:05)
--- NOTE | 2017-06-28 16:18 | Emergency Department Note ---
Disposition Clinical Impression: Alcohol withdrawal Qualifiers: Complication of substance-induced condition: with unspecified complication Qualified Code(s): F10.239 - Alcohol dependence with withdrawal, unspecified Chest pain Qualifiers: Chest pain type: unspecified Qualified Code(s): R07.9 - Chest pain, unspecified Disposition: Admitted As Inpatient Condition: Good Forms: ED Satisfaction Letter Time of Disposition: 17:39 Chest Pain HPI - General Chief Complaint: ED Chest Pain Stated Complaint: Chest Pain Time Seen by Provider: 06/28/17 15:53 Source: patient, EMS Limitations: no limitations Vital Signs Reviewed: Yes Nursing Notes Reviewed: Yes - History of Present Illness HPI Narrative: 62 year old male who is a chronic alcoholic presents to the ED after having about 4 beers last night and states that he is having incresed midsternal chest pain. He states that he has a pancretic stent as well for his pancreatitis. He states that it assocaited with shortness of breath adn that is pain is sharp and radiates into this back and is associated with nausea and not vomitting. Denies fever, cough, cold, congestion, or increased abdominal pain. Upon review of old records he was mosr recntly admitted for a simliar presentation which was alcohol withdrawl in addition to atrial fibrillation with RVR during his stay at the hospital which reqiuired a cardiology consult. he state he also had cardiac srugery in 2008 without any stents placed. Severity scale (1-10): 9 - Related Data Home Medications Medication Instructions Recorded Confirmed Albuterol Sulfate [Proair Hfa] 2 puff IH Q4H PRN 12/21/16 06/03/17 Quetiapine Fumarate [Seroquel] 300 mg PO HS 12/21/16 06/03/17 SUMAtriptan succinate [Imitrex] 6 mg SQ AD PRN 12/21/16 06/03/17 Lipase/Protease/Amylase [Joeon Dr 3 cap PO TIDWM 03/15/17 06/03/17 12,000 Units Capsule] Omeprazole [PriLOSEC] 20 mg PO DAILY 03/15/17 06/03/17 Amlodipine Besylate 10 mg PO DAILY 03/27/17 06/03/17 Budesonide/Formoterol 160/4.5 1 puff IH BIDR 03/27/17 06/03/17 [Symbicort 160/4.5] Desonide [Tridesilon] 1 appl TP BID PRN 03/27/17 06/03/17 Folic Acid 2 mg PO DAILY 03/27/17 06/03/17 Hydrocortisone 1% CREAM [Cortaid] 1 appl TP BID PRN 03/27/17 06/03/17 Magnesium Oxide [Mag-Ox] 400 mg PO BID 03/27/17 06/03/17 Thiamine (B-1) [Vitamin B-1] 100 mg PO BID 03/27/17 06/03/17 Cholecalciferol (Vitamin D3) 1,000 unit PO DAILY 04/23/17 06/03/17 [Vitamin D3] Cyanocobalamin (Vitamin B-12) 500 mcg PO DAILY 06/03/17 06/03/17 [Vitamin B-12] Divalproex (24 HR) [Depakote ER 1,250 mg PO HS 06/03/17 06/03/17 (24 HR)] Gabapentin [Neurontin] 600 mg PO TID 06/03/17 06/03/17 Ketoconazole Shampoo [Nizoral 1 appl TP 2XW 06/03/17 06/03/17 Shampoo] Lactobacillus [Culturelle] 1 each PO BID 06/03/17 06/03/17 Previous Rx's Medication Instructions Recorded Nicotine Patch [Nicoderm] 21 mg TD DAILY 06/06/17 Omeprazole [PriLOSEC] 20 mg PO DAILY@0730 06/10/17 Allergies Allergy/AdvReac Type Severity Reaction Status Date / Time Buspirone [From BuSpar] AdvReac See Verified 05/11/17 12:41 Comments tramadol AdvReac See Verified 06/03/17 22:13 Comments Constitutional: Reports: weakness. Denies: fever, chills, weight change Eyes: Denies: eye pain, eye discharge, vision change ENT ED: Denies: ear pain, throat pain, dental pain, hearing loss, epistaxis, congestion, dysphagia Cardiovascular: Reports: chest pain, palpitations, dyspnea on exertion. Denies : edema, syncope Respiratory: Denies: cough, dyspnea, wheezes, hemoptysis, stridor Gastrointestinal: Reports: nausea. Denies: abdominal pain, vomiting, diarrhea, constipation, hematemesis, melena, hematochezia Genitourinary: Denies: urgency, dysuria, frequency, hematuria Musculoskeletal: Denies: back pain, neck pain, arthralgia, myalgia Integumentary: Denies: rash, abrasion, lesions Neurological: Denies: headache, weakness, numbness, paresthesias, confusion, abnormal gait, vertigo Psychiatric: Denies: anxiety, depression, suicidal thoughts, homicidal thoughts , auditory hallucinations, visual hallucinations Endocrine: Denies: fatigue Hematological/Lymphatic: Denies: easy bleeding, easy bruising Allergic/Immunologic: Denies: facial swelling, urticaria Chest Pain PMH - Past Medical History Medical history: Reports: COPD, GERD, hypertension, migraine, myocardial infarction, other Surgical history: Reports: appendectomy, cholecystectomy, other (History of partial colectomy and pancreas surgery) Psychiatric history: Reports: anxiety, bipolar, other - Social History Smoking Status: Current every day smoker Alcohol use: Reports: heavy Drug use: Reports: none Physical Exam - General Limitations: no limitations General appearance: alert, in no apparent distress, appears intoxicated - Head Head exam: atraumatic, normocephalic, normal inspection - Eye Eye exam: Present: normal appearance, PERRL, EOMI - Expanded Eye Exam Pupils: Left: reactive - ENT ENT exam: normal exam, normal oropharynx, mucous membranes moist - Expanded ENT Exam External ear exam: Present: normal external inspection Mouth exam: Present: normal external inspection Teeth exam: Present: normal inspection Throat exam: Present: normal inspection - Neck Neck exam: Present: normal inspection, full ROM, trachea midline - Chest Chest inspection: Present: normal inspection, symmetric chest wall rise - Respiratory Respiratory exam: Present: normal lung sounds bilaterally - Cardiovascular Cardiovascular exam: Present: normal rhythm, tachycardia, normal heart sounds - Abdominal Exam Abdominal exam: Present: soft, tenderness, normal bowel sounds. Absent: Non- Tender, distention, guarding, rebound, rigidity, Chan's sign, Rovsing's sign, tenderness at McBurney's Point Abdominal tenderness: Present: epigastrium - Extremities Exam Extremities exam: Present: normal inspection, full ROM. Absent: tenderness, pedal edema - Expanded Upper Extremity Exam Shoulder exam: Present: normal inspection, full ROM Arm exam: Present: normal inspection, full ROM Elbow exam: Present: normal inspection, full ROM Forearm/Wrist exam: Present: normal inspection, full ROM Hand exam: Present: normal inspection, full ROM Vascular exam: Normal: capillary refill, radial pulse - Expanded Lower Extremity Exam Hip/Pelvis exam: Present: normal inspection, full ROM Upper leg exam: Present: normal inspection, full ROM Knee exam: Present: normal inspection, full ROM Lower leg exam: Present: normal inspection, full ROM Ankle exam: Present: normal inspection, full ROM Foot/toe exam: Present: normal inspection, full ROM Neurovascular/Tendon exam: Absent: motor deficit, sensory deficit, tendon deficit - Back Exam Back exam: Present: normal inspection, full ROM. Absent: tenderness - Neurological Exam Neurological exam: Present: alert, oriented X3 - Expanded Neurological Exam Patient oriented to: Present: person, place, time Coma Scale Eye Opening: Spontaneous Coma Scale Motor Response: Obeys Commands Coma Scale Verbal Response: Oriented Coma Scale Total: 15 - Psychiatric Psychiatric exam: Present: normal affect, normal mood - Skin Skin exam: Present: warm, dry, intact, normal color Course Course Narrative: we will do a cardiac workup and treat with banana bag and Multivitamins. - Reevaluation(s) Reevaluation #1: updated patinet and he is agrreable to admission Time: 17:39 - Consultations Consultation #1: discussed case with AARON Sun and he has accepted patinet to medicine service Time: 17:38 Vital Signs Temperature 98.3 F 06/28/17 15:55 Pulse Rate 117 06/28/17 15:55 Respiratory Rate 22 06/28/17 15:55 Blood Pressure 106/95 06/28/17 15:55 O2 Sat by Pulse Oximetry 96 06/28/17 15:55 Temperature 98.3 F 06/28/17 15:55 Pulse Rate 112 06/28/17 17:37 Respiratory Rate 22 06/28/17 15:55 Blood Pressure 145/85 06/28/17 17:37 O2 Sat by Pulse Oximetry 98 06/28/17 17:37 Oxygen Delivery Oxygen Delivery Room Air Chest Pain - Lab Data Result diagrams: 06/28/17 16:20 06/28/17 16:20 Lab Results 06/28/17 06/28/17 06/28/17 Range/Units 16:20 16:20 16:20 WBC (4.3-11.1) K/mcL RBC (4.19-5.50) M/mcL Hgb (12.9-16.9) g/dL Hct (37.5-50.1) % MCV (83.0-100.0) fL MCH (28.0-33.3) pg MCHC (31.6-35.5) g/dL RDW (11.5-14.5) % Plt Count (140-400) K/mcL MPV (9.4-12.4) fL Immature Gran % (0-4) % Seg Neutrophils % % Lymphocytes % % Monocytes % % Eosinophils % % Basophils % % Neutrophils # (1.6-8.9) K/mcL Lymphocytes # (0.6-4.6) K/mcL Monocytes # (0.0-1.3) K/mcL Eosinophils # (0.0-0.6) K/mcL Basophils # (0.0-0.2) K/mcL PT 11.8 (9.4-12.1) Seconds INR 1.1 APTT 31.0 (26.0-36.0) Seconds Sodium 136 (136-145) mEq/L Potassium 3.7 (3.5-4.5) mEq/L Chloride 96 L (98-109) mEq/L Carbon Dioxide 19 (19-29) mEq/L BUN 10 (8-26) mg/dL Creatinine 1.06 (0.72-1.25) mg/dL Est GFR ( Amer) > 60 (> 60) Est GFR (Non-Af Amer) > 60 (> 60) BUN/Creatinine Ratio 9 (6-26) Glucose 87 (70-99) mg/dL Calculated Osmolality 280 (280-300) Calcium 9.8 (8.6-10.8) mg/dL Total Bilirubin 1.3 H (0.2-1.2) mg/dL Direct Bilirubin 0.5 (0.0-0.5) mg/dL Indirect Bilirubin 0.8 (0.0-1.2) mg/dL AST 75 H (5-34) Units/L ALT 63 H (0-55) Units/L Alkaline Phosphatase 119 (38-126) Units/L Troponin I (0-0.03) ng/mL B-Natriuretic Peptide 30 (0-100) pg/mL Serum Total Protein 8.8 H (6.0-8.3) g/dL Albumin 4.1 (3.5-5.0) g/dL Globulin 4.7 H (2.4-3.5) g/dL Albumin/Globulin Ratio 0.9 L (1.1-2.2) Lipase < 10 (8-78) Units/L 06/28/17 06/28/17 Range/Units 16:20 16:20 WBC 4.6 (4.3-11.1) K/mcL RBC 4.66 (4.19-5.50) M/mcL Hgb 12.6 L (12.9-16.9) g/dL Hct 39.3 (37.5-50.1) % MCV 84.3 (83.0-100.0) fL MCH 27.0 L (28.0-33.3) pg MCHC 32.1 (31.6-35.5) g/dL RDW 14.8 H (11.5-14.5) % Plt Count 145 (140-400) K/mcL MPV 9.3 L (9.4-12.4) fL Immature Gran % 0.2 (0-4) % Seg Neutrophils % 67.1 % Lymphocytes % 23.2 % Monocytes % 7.9 % Eosinophils % 0.9 % Basophils % 0.7 % Neutrophils # 3.1 (1.6-8.9) K/mcL Lymphocytes # 1.1 (0.6-4.6) K/mcL Monocytes # 0.4 (0.0-1.3) K/mcL Eosinophils # 0.0 (0.0-0.6) K/mcL Basophils # 0.0 (0.0-0.2) K/mcL PT (9.4-12.1) Seconds INR APTT (26.0-36.0) Seconds Sodium (136-145) mEq/L Potassium (3.5-4.5) mEq/L Chloride (98-109) mEq/L Carbon Dioxide (19-29) mEq/L BUN (8-26) mg/dL Creatinine (0.72-1.25) mg/dL Est GFR ( Amer) (> 60) Est GFR (Non-Af Amer) (> 60) BUN/Creatinine Ratio (6-26) Glucose (70-99) mg/dL Calculated Osmolality (280-300) Calcium (8.6-10.8) mg/dL Total Bilirubin (0.2-1.2) mg/dL Direct Bilirubin (0.0-0.5) mg/dL Indirect Bilirubin (0.0-1.2) mg/dL AST (5-34) Units/L ALT (0-55) Units/L Alkaline Phosphatase (38-126) Units/L Troponin I 0.00 (0-0.03) ng/mL B-Natriuretic Peptide (0-100) pg/mL Serum Total Protein (6.0-8.3) g/dL Albumin (3.5-5.0) g/dL Globulin (2.4-3.5) g/dL Albumin/Globulin Ratio (1.1-2.2) Lipase (8-78) Units/L - EKG Data EKG attestation: Yes I reviewed and interpreted this EKG. EKG results narrative: sinus tachycardia wit rate of 117. NO STEMI. normal interval \. no change from 1555 Heart Score - Score History: Slightly Suspicious EKG: Normal Age: 45-65 Risk Factors: Equal/Greater than 3 risk factor or history of atherosclerotic disease Troponin: Less than normal limit HEART Score Total: 3
[2017-06-28 16:31] LABS: Basophils % 0.7 %; Eosinophils % 0.9 %; Hematocrit 39.3 % (37.5-50.1); Hemoglobin 12.6 g/dL (12.9-16.9); Immature Granulocytes % 0.2 % (0-4); Lymphocytes # 1.1 K/mcL (0.6-4.6); Lymphocytes % 23.2 %; Mean Corpuscular HGB Conc 32.1 g/dL (31.6-35.5); Mean Corpuscular Volume 84.3 fL (83.0-100.0); Mean Platelet Volume 9.3 fL (9.4-12.4); Monocytes # 0.4 K/mcL (0.0-1.3); Monocytes % 7.9 %; Neutrophils # 3.1 K/mcL (1.6-8.9); Platelet Count 145 K/mcL (140-400); Red Blood Count 4.66 M/mcL (4.19-5.50); Red Cell Distribution Width 14.8 % (11.5-14.5); Segmented Neutrophils % 67.1 %
[2017-06-28 16:35] LABS: INR 1.1; Prothrombin Time 11.8 Seconds (9.4-12.1)
[2017-06-28] MEDS ORDERED: Ondansetron 4 MG/2 ML VIAL IVP ONE (16:42)
[2017-06-28 16:44] LABS: Alanine Aminotransferase 63 Units/L (0-55); Albumin 4.1 g/dL (3.5-5.0); Albumin/Globulin Ratio 0.9 (1.1-2.2); Alkaline Phosphatase 119 Units/L (38-126); Aspartate Amino Transferase 75 Units/L (5-34); BUN/Creatinine Ratio 9 (6-26); Bilirubin,Direct 0.5 mg/dL (0.0-0.5); Bilirubin,Indirect 0.8 mg/dL (0.0-1.2); Bilirubin,Total 1.3 mg/dL (0.2-1.2); Blood Urea Nitrogen 10 mg/dL (8-26); Calcium 9.8 mg/dL (8.6-10.8); Carbon Dioxide 19 mEq/L (19-29); Chloride 96 mEq/L (98-109); Globulin 4.7 g/dL (2.4-3.5); Glucose 87 mg/dL (70-99); Lipase < 10 Units/L (8-78); Osmolality,Calculated 280 (280-300); Potassium 3.7 mEq/L (3.5-4.5); Sodium 136 mEq/L (136-145); Total Protein 8.8 g/dL (6.0-8.3); eGFR For African Americans > 60 (> 60); eGFR For Non-African Americans > 60 (> 60)
[2017-06-28 17:51] LABS: Ethanol < 10 mg/dL (0-10)
[2017-06-28] MEDS ORDERED: Naloxone 0.4 MG/ML INJ IVP PRN (18:50)
[2017-06-28] MEDS ORDERED: *HR* LORazepam 2 MG/ML VIAL IVP PRN ×2 (18:50)
[2017-06-28] MEDS ORDERED: *HR* Promethazine 25 MG/ML VIAL IVP PRN (18:50)
[2017-06-28] MEDS ORDERED: SUMAtriptan 6 MG/0.5 ML SQ PRN (19:36)
--- NOTE | 2017-06-28 19:48 | Internal Med History&Physical ---
Date of Encounter: 06/28/17 Time of Encounter: 19:43 Assessment and Plan (1) Chest pain Current visit: Yes Status: Acute Patient admits that he is doing experiencing chest pain since 3 AM this morning is sharp in intensity and increases with respiration. Additionally he admits to some shortness of breath, nausea. Troponin in the emergency department negative at 0.00. Chest x-ray no acute pulmonary process. Does have a history of prior IA and coronary artery disease. Continue to monitor cardiac status and rule out ACS Continuous telemetry Serial troponins first negative at 0.00; chest pain appears to be pleuritic but will continue to rule out IA D-dimer to assess PE risk Oxygen therapy; titrate to maintain SPO2 greater than 92% Qualifiers: Chest pain type: chest pain on breathing Qualified Code(s): R07.1 - Chest pain on breathing (2) Alcohol withdrawal Current visit: Yes Status: Acute Acute etoh withdrawal without delerium at this time. Visible tremmors anxiety and agitation prevalent upon examination. Last drink was 3 beers last evening, but the patient is a chronic 0.5 to 1L/day liquor drinker. ETOH was <10 per ED labs. Metabolic panel and CBC unremarkable in ED. Start CIWA protocol, ativan for management glucose per protocol Banana bag hung in ED. Start daily thiamine, folic acid and B vitamin PO Promethazine for nausea falls precautions as he fell at home x3 episodes today. Qualifiers: Complication of substance-induced condition: uncomplicated Qualified Code(s ): F10.230 - Alcohol dependence with withdrawal, uncomplicated (3) COPD (chronic obstructive pulmonary disease) Current visit: Yes Status: Chronic Chronic h/o COPD. Complains of some acute dyspnea worsening over the last few hours and worse with exertion. Continuous pulse ox, oxygen therapy titrate to maintain SPO2 greater than 92% Continuous telemetry Duo nebs every 4 hours scheduled Assessment d-dimer to assess for risk of PE Qualifiers: COPD type: unspecified COPD Qualified Code(s): J44.9 - Chronic obstructive pulmonary disease, unspecified (4) Fall Current visit: Yes Status: Acute Fell at home x3 episodes today, denies hitting his head, however he has been drinking Ct head without contrast to r/o head trauma. falls precautions CIWA as withdrawal is likely the culprit for the fall continuous cardiac monitoring Qualifiers: Qualified Code(s): W19.XXXA - Unspecified fall, initial encounter (5) DVT prophylaxis Current visit: Yes Status: Acute At risk for DVT d/t hospital stay and prolonged immobility. Start lovenox 40mg sc daily Internal Medicine - H&P: HPI Chief complaint: chest pain, HTN, withdrawal Admitted From: Home Plans for Post Hospital Care: Home History of present illness: Mr. Chen is a 62 year old male with past medical history of pancreatitis with pancreatic stent, small bowel obstruction, alcohol abuse, migraines, coronary artery disease, GERD, COPD, IA. Patient reports that this morning around 3 AM he again experiencing sharp midsternal chest pain with radiation to the mid back is ongoing. He notes that chest pain was accompanied with shortness of breath and nausea. Denied any diaphoresis, cough, fevers or increased abdominal pain. Workup in the emergency department revealed a stable chest x- ray, normal troponin at 0.00, unremarkable CBC and metabolic panel. Additionally, the patient appears to be going to alcoholic withdrawal, noting tremors, nausea, and agitation. Reports drinking 4 beers this past evening but admits to drinking much more. Was given Ativan in the emergency department which helped decrease the agitation. However upon this assessment the patient appears to be very agitated with obvious tremors, denies any auditory or visual hallucinations. Being admitted to [facility] for further workup and monitoring for ACS rule out and alcohol withdrawal Past Med Surg Social Fam HX - Past Medical History Medical history: COPD, GERD, hypertension, migraine, myocardial infarction, other Psychiatric history: anxiety, bipolar, depression, schizophrenia - Past Surgical History Surgical History: appendectomy, cholecystectomy, other - Social History Smoking Status: Current every day smoker Packs per day: 1 Smokeless Tobacco Status: No Alcohol use: heavy Drug use: none - Family History Mother Adopted: No Family Member Ethnicity: Non- Living Status: Still Living Hx Family Cardiac Disorders: Yes (htn) Hx Family Respiratory Disorders: No Hx Family Cancer: No Hx Family GI Disorders: No Hx Family Endocrine Disorder: No Hx Family Neuromuscular Disorders: Yes (Neuropathy) Hx Family Neurologic Disorders: No Hx Family HEENT Disorders: No Hx Family Autoimmune Disorders: No Father Living Status: Internal Medicine - H&P: Meds Albuterol Sulfate [Proair Hfa] 2 puff IH Q4H PRN 12/21/16 [History] Quetiapine Fumarate [Seroquel] 300 mg PO HS 12/21/16 [History] SUMAtriptan succinate [Imitrex] 6 mg SQ AD PRN 12/21/16 [History] Lipase/Protease/Amylase [Ananya Kern 12,000 Units Capsule] 3 cap PO TIDWM 03/15/17 [History] Omeprazole [PriLOSEC] 20 mg PO DAILY 03/15/17 [History] Amlodipine Besylate 10 mg PO DAILY 03/27/17 [History] Budesonide/Formoterol 160/4.5 [Symbicort 160/4.5] 1 puff IH BIDR 03/27/17 [ History] Desonide [Tridesilon] 1 appl TP BID PRN 03/27/17 [History] Folic Acid 2 mg PO DAILY 03/27/17 [History] Hydrocortisone 1% CREAM [Cortaid] 1 appl TP BID PRN 03/27/17 [History] Magnesium Oxide [Mag-Ox] 400 mg PO BID 03/27/17 [History] Thiamine (B-1) [Vitamin B-1] 100 mg PO BID 03/27/17 [History] Cholecalciferol (Vitamin D3) [Vitamin D3] 1,000 unit PO DAILY 04/23/17 [History] Cyanocobalamin (Vitamin B-12) [Vitamin B-12] 500 mcg PO DAILY 06/03/17 [History] Divalproex (24 HR) [Depakote ER (24 HR)] 1,250 mg PO HS 06/03/17 [History] Gabapentin [Neurontin] 600 mg PO TID 06/03/17 [History] Ketoconazole Shampoo [Nizoral Shampoo] 1 appl TP 2XW 06/03/17 [History] Lactobacillus [Culturelle] 1 each PO BID 06/03/17 [History] Nicotine Patch [Nicoderm] 21 mg TD DAILY 06/06/17 [Rx] Omeprazole [PriLOSEC] 20 mg PO DAILY@0730 06/10/17 [Rx] 3 Allergy/AdvReac Type Severity Reaction Status Date / Time Buspirone [From BuSpar] AdvReac See Verified 05/11/17 12:41 Comments tramadol AdvReac See Verified 06/03/17 22:13 Comments All Systems PM: A 10-system review of systems was performed and is negative for pertinent findings except as documented above in the HPI. - Constitutional Constitutional: fatigue, falls (3 at home today), lethargy, weakness, no chills , no fever(s), no night sweats, no weight gain, no weight loss - EENT Eyes: no change in vision, no discharge, no pain, no photophobia Ears: no ear discharge, no ear pain, no tinnitus Nose, mouth and throat: no dysphagia, no nasal discharge, no neck pain, no sore throat - Cardiovascular Cardiovascular ROS IM: as per HPI, chest pain, dyspnea, lightheadedness, no diaphoresis, no edema, no irregular heart rhythm, no palpitations, no syncope - Respiratory Respiratory: no cough, no dyspnea, no wheezing, no excessive phlegm production - Gastrointestinal Gastrointestinal: diarrhea (Last 24 hours reports 4-6 episodes), nausea (Denies vomiting however), no abdominal pain, no fecal incontinence, no hematemesis, no hematochezia, no melena, no vomiting - Musculoskeletal Musculoskeletal ROS IM: no numbness, no tingling - Integumentary Integumentary IM: no rash, no unusual bruising - Neurological Neurological ROS: disequilibrium, dizziness, no confusion, no convulsions, no focal weakness, no headache(s), no numbness, no tingling, no tremor(s) - Hematologic/Lymphatic Hematologic/Lymphatic: no easy bruising - Constitutional Vitals: Temp Pulse Resp BP Pulse Ox 98.6 F 116 16 113/74 96 06/28/17 18:33 06/28/17 18:33 06/28/17 18:33 06/28/17 18:33 06/28/17 18:33 General appearance: Present: cooperative, mild distress, A&O X 3, answers questions appropriately - Head Head exam: Present: atraumatic, normocephalic - Eye Eye exam: Present: EOMI, PERRL, conjuntiva pink, sclera anicteric Pupils: Present: PERRL - Neck Neck exam general surgery: Present: supple, trachea midline. Absent: lymphadenopathy - Respiratory Respiratory exam: Present: decreased breath sounds, CTAB. Absent: accessory muscle use, rales, rhonchi, wheezes - Cardiovascular Cardiovascular exam: Present: RRR, +S1, +S2. Absent: diastolic murmur, gallop, rubs, systolic murmur - GI/Abdominal GI/Abdominal exam: Present: normal bowel sounds, soft, no peritoneal signs. Absent: distended, tenderness - Extremities Exam Extremities exam: Present: warm, radial pulses palpable and symmetrical. Absent : calf tenderness, cyanotic, pedal edema - Neurological Exam Neurological exam: Present: alert, CN II-XII intact, oriented X3, no focal deficits, strengths equal and symetr throughout. Absent: pronater drift, facial droop, speech deficit Additional comments: The patient has tremor to bilateral hands. And appears anxious upon exam - Expanded Neurological Exam Patient oriented to: Present: person, place, time Coma Scale Eye Opening: Spontaneous Coma Scale Motor Response: Obeys Commands Coma Scale Verbal Response: Oriented Coma Scale Total: 15 - Psychiatric Psychiatric exam: Present: anxious - Skin Skin exam: Present: dry, intact Internal Med - H&P Results - Labs CBC & Chem 7: 06/28/17 16:20 06/28/17 16:20 - Diagnostic Studies Chest x-ray Additional comments: Negative for acute pulmonary process
[2017-06-28] MEDS: SUMAtriptan succinate 50 MG TABLET PO PRN (20:45)
[2017-06-28] MEDS: *HR* LORazepam 2 MG/ML VIAL IVP PRN (20:53)
[2017-06-28] MEDS: Magnesium Oxide 400 MG TABLET PO SCH (21:09)
[2017-06-28] MEDS: Lactobacillus 1 EACH CAP.SPRINK PO SCH (21:09)
[2017-06-28] MEDS: Gabapentin 300 MG CAPSULE PO SCH (21:09)
[2017-06-28] MEDS: Ipratropium/Albuterol Neb 3 ML IH SCH ×2 (21:10→23:28)
[2017-06-28] MEDS: Divalproex (24 HR) 250 MG TABLET PO SCH (21:10)
[2017-06-28] MEDS ORDERED: Ketorolac 30 MG/ML VIAL IVP ONE (22:31)
[2017-06-29] MEDS: *HR* LORazepam 2 MG/ML VIAL IVP PRN ×6 (00:45→20:27)
[2017-06-29 01:17] LABS: Bilirubin,Urine Large (Negative); Blood,Urine Negative (Negative); Clarity,Urine Clear (Clear); Color,Urine Dark Yellow (Yellow); Glucose,Urine (UA) Normal (Normal); Ketones,Urine 80 mg/dL (Negative); Leukocyte Esterase,Urine Small (Negative); Nitrite,Urine Negative (Negative); Protein,Urine 100 mg/dL (Neg-Trace); Specific Gravity,Urine 1.025 (1.010-1.025); Urobilinogen,Urine Normal (Normal)
[2017-06-29 01:26] LABS: Hyaline Casts,Urine Few per lpf (None-Few); Mucus,Urine Few (Few)
[2017-06-29 01:27] LABS: Bacteria,Urine None Seen per hpf (None-Few); RBC,Urine 0-3 per hpf (0-3); Squamous Epithelial Cell,Urine Few per lpf (None-Few)
[2017-06-29 03:23] LABS: Basophils % 0.3 %; Eosinophils # 0.1 K/mcL (0.0-0.6); Hematocrit 36.5 % (37.5-50.1); Hemoglobin 11.6 g/dL (12.9-16.9); Immature Granulocytes % 0.3 % (0-4); Lymphocytes % 28.6 %; Mean Corpuscular HGB Conc 31.8 g/dL (31.6-35.5); Mean Corpuscular Hemoglobin 26.7 pg (28.0-33.3); Mean Corpuscular Volume 84.1 fL (83.0-100.0); Mean Platelet Volume 9.2 fL (9.4-12.4); Monocytes # 0.3 K/mcL (0.0-1.3); Monocytes % 7.6 %; Neutrophils # 2.2 K/mcL (1.6-8.9); Platelet Count 110 K/mcL (140-400); Red Blood Count 4.34 M/mcL (4.19-5.50); Red Cell Distribution Width 14.7 % (11.5-14.5); Segmented Neutrophils % 61.2 %
[2017-06-29 03:37] LABS: Alanine Aminotransferase 47 Units/L (0-55); Albumin 3.6 g/dL (3.5-5.0); Albumin/Globulin Ratio 0.9 (1.1-2.2); Alkaline Phosphatase 102 Units/L (38-126); Aspartate Amino Transferase 50 Units/L (5-34); BUN/Creatinine Ratio 13 (6-26); Bilirubin,Total 0.9 mg/dL (0.2-1.2); Blood Urea Nitrogen 16 mg/dL (8-26); Calcium 9.3 mg/dL (8.6-10.8); Carbon Dioxide 27 mEq/L (19-29); Chloride 102 mEq/L (98-109); Globulin 4.1 g/dL (2.4-3.5); Glucose 103 mg/dL (70-99); Osmolality,Calculated 293 (280-300); Potassium 3.2 mEq/L (3.5-4.5); Sodium 141 mEq/L (136-145); Total Protein 7.7 g/dL (6.0-8.3); eGFR For African Americans > 60 (> 60); eGFR For Non-African Americans > 60 (> 60)
[2017-06-29] MEDS: Ipratropium/Albuterol Neb 3 ML IH SCH ×6 (04:00→23:58)
[2017-06-29] MEDS ORDERED: Acetaminophen/Butalbital/CaffeineTABLET PO ONE (05:01)
[2017-06-29] MEDS: Gabapentin 300 MG CAPSULE PO SCH ×3 (07:48→20:25)
[2017-06-29] MEDS: Cholecalciferol (D-3) 1,000 UNIT TABLET PO SCH (07:49)
[2017-06-29] MEDS: amLODIPine 5 MG TABLET PO SCH (07:49)
[2017-06-29] MEDS: Folic Acid 1 MG TABLET PO SCH (07:49)
[2017-06-29] MEDS: Lactobacillus 1 EACH CAP.SPRINK PO SCH ×2 (07:49→20:27)
[2017-06-29] MEDS: Thiamine (B-1) 100 MG TABLET PO SCH (07:49)
[2017-06-29] MEDS: Vitamin B Complex/Vit C/Vit E 1 EACH TABLET PO SCH (07:49)
[2017-06-29] MEDS: Magnesium Oxide 400 MG TABLET PO SCH ×2 (07:49→20:26)
[2017-06-29] MEDS: Nicotine 21 MG PATCH.TD24 TD SCH (07:52)
[2017-06-29] MEDS: Acetaminophen/Butalbital/CaffeineTABLET PO PRN ×2 (10:49→20:25)
[2017-06-29] MEDS: SUMAtriptan succinate 50 MG TABLET PO PRN (14:12)
[2017-06-29] MEDS ORDERED: Simethicone 80 MG TAB.CHEW PO PRN (14:30)
--- NOTE | 2017-06-29 15:32 | Internal Med Progress Note ---
Date of Encounter: 06/29/17 Time of Encounter: 09:15 - Assessment and plan (1) Alcohol withdrawal Current Visit: Yes Status: Acute Assessment and plan: No signs of delirium at this time. Continue symptomatic care per [facility] protocol with IV Ativan as needed. Will also place patient on Librium scheduled to help ameliorate symptoms. High-risk for complications due to use of intravenous Ativan. Qualifiers: Complication of substance-induced condition: uncomplicated Qualified Code(s ): F10.230 - Alcohol dependence with withdrawal, uncomplicated (2) Acute chest wall pain Current Visit: Yes Status: Acute Assessment and plan: Right sided anterior chest wall pain in the lower ribs. From recent trauma. Symptomatic treatment. Reviewed prior x-rays from April from the time of injury which did not show any acute rib fracture. (3) Chest pain Current Visit: Yes Status: Acute Assessment and plan: Patient reports chest pain anterior chest wall but does also report some burning pain in substernal region. Most likely related to gastric reflux or alcoholic gastritis. Troponins have been negative. D-dimer is also negative. We will treat with PPI Qualifiers: Chest pain type: chest pain on breathing Qualified Code(s): R07.1 - Chest pain on breathing (4) COPD (chronic obstructive pulmonary disease) Current Visit: Yes Status: Chronic Assessment and plan: With mild exacerbation. Continue scheduled bronchodilators. Qualifiers: COPD type: emphysema Emphysema type: panlobular Qualified Code(s): J43.1 - Panlobular emphysema (5) Fall Current Visit: Yes Status: Acute Assessment and plan: Fall precautions. Likely due to alcohol intoxication. Qualifiers: Encounter type: subsequent encounter Qualified Code(s): W19.XXXD - Unspecified fall, subsequent encounter (6) Hypertension Current Visit: Yes Status: Chronic Assessment and plan: Blood pressure elevated this morning. Could be due to due to anxiety and alcohol withdrawal. On amlodipine. If blood pressure remains elevated, will start patient on carvedilol. Qualifiers: Hypertension type: essential hypertension Qualified Code(s): I10 - Essential (primary) hypertension (7) DVT prophylaxis Current Visit: No Status: Acute Assessment and plan: With SCD and subcutaneous Lovenox. Monitor platelet counts - Subjective Interval history: Patient sitting up in chair. Complains of anxiety and increased tremors. No hallucinations or seizure-like activity. Complains of epigastric pain. No hematemesis or melena. - Constitutional Vitals: Temp Pulse Resp BP Pulse Ox 97.5 F L 101 17 147/95 95 06/29/17 11:53 06/29/17 11:53 06/29/17 11:53 06/29/17 11:53 06/29/17 11:53 General appearance: Present: cooperative, mild distress, A&O X 3, answers questions appropriately - Neck Neck exam general surgery: Present: supple, trachea midline. Absent: lymphadenopathy - Respiratory Respiratory exam: Present: CTAB. Absent: accessory muscle use, rales, rhonchi, wheezes - Cardiovascular Cardiovascular exam: Present: RRR, +S1, +S2, tachycardia. Absent: diastolic murmur, gallop, rubs, systolic murmur - GI/Abdominal GI/Abdominal exam: Present: normal bowel sounds, soft, no peritoneal signs. Absent: distended, tenderness - Extremities Exam Extremities exam: Present: warm, radial pulses palpable and symmetrical. Absent : calf tenderness, cyanotic, pedal edema - Neurological Exam Neurological exam: Present: alert, oriented X3, no focal deficits. Absent: facial droop, speech deficit - Skin Skin exam: Present: dry, intact Internal Medicine: Result - Labs CBC & Chem 7: 06/29/17 03:10 06/29/17 03:10 Labs: Short CBC 06/29/17 Range/Units 03:10 WBC 3.6 L (4.3-11.1) K/mcL Hgb 11.6 L (12.9-16.9) g/dL Hct 36.5 L (37.5-50.1) % Plt Count 110 L (140-400) K/mcL Neutrophils # 2.2 (1.6-8.9) K/mcL BMP 06/29/17 03:10 Sodium 141 Potassium 3.2 L Chloride 102 Carbon Dioxide 27 BUN 16 Creatinine 1.21 Glucose 103 H Calcium 9.3 Cardiac Enzymes 06/28/17 06/29/17 Range/Units 22:12 03:10 Troponin I 0.00 0.01 (0-0.03) ng/mL Liver Function 06/29/17 Range/Units 03:10 Total Bilirubin 0.9 (0.2-1.2) mg/dL AST 50 H (5-34) Units/L ALT 47 (0-55) Units/L Alkaline Phosphatase 102 (38-126) Units/L Albumin 3.6 (3.5-5.0) g/dL Urine 06/29/17 Range/Units 00:55 Urine Color Dark Yellow (Yellow) Urine Clarity Clear (Clear) Urine pH 7.0 (5.0-8.0) pH Units Ur Specific [place] 1.025 (1.010-1.025) Urine Protein 100 H (Neg-Trace) mg/dL Urine Glucose (UA) Normal (Normal) mg/dL - ABG Interpretation ABG results: PT/INR, D-dimer PT 11.8 Seconds (9.4-12.1) 06/28/17 16:20 D-Dimer 450 ng/mLFEU (0-500) 06/28/17 22:12 - Impressions Impressions Head CT 06/28/17 19:39 IMPRESSION: 1. No acute intracranial abnormality. D/ / Earnest Hutchins MD / Earnest Hutchins MD Interpreting Provider: Earnest Hutchins MD - VTE Documentation of Mechanical Device: Intermittent pneumatic compression device Consult Discharge Plan - Plan Referrals: NONE,PCP [Primary Care Provider] -
[2017-06-29] MEDS: 0.9 % Sodium Chloride w KCl 20 MEQ/1,000 ML MLS IVC SCH (16:08)
[2017-06-29] MEDS ORDERED: Bisacodyl 10 MG RECTAL SUPPOSITORY RC PRN (17:43)
--- NOTE | 2017-06-29 17:46 | Electrocardiograph Report ---
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
[2017-06-29] MEDS ORDERED: Water for inj. (sterile) 10 ML IV ONE (20:22)
[2017-06-29] MEDS: Divalproex (24 HR) 250 MG TABLET PO SCH (20:26)
[2017-06-30] MEDS: 0.9 % Sodium Chloride w KCl 20 MEQ/1,000 ML MLS IVC SCH ×3 (01:45→23:40)
[2017-06-30] MEDS: *HR* LORazepam 2 MG/ML VIAL IVP PRN ×2 (02:27→06:36)
[2017-06-30] MEDS: Ipratropium/Albuterol Neb 3 ML IH SCH ×6 (03:32→23:21)
[2017-06-30] MEDS: Acetaminophen/Butalbital/CaffeineTABLET PO PRN (06:13)
[2017-06-30] MEDS: *HR* Enoxaparin 40 MG/0.4 ML SYRINGE SQ SCH (06:14)
[2017-06-30] MEDS: Folic Acid 1 MG TABLET PO SCH (09:07)
[2017-06-30] MEDS: Gabapentin 300 MG CAPSULE PO SCH ×3 (09:07→21:38)
[2017-06-30] MEDS: Vitamin B Complex/Vit C/Vit E 1 EACH TABLET PO SCH (09:07)
[2017-06-30] MEDS: Lactobacillus 1 EACH CAP.SPRINK PO SCH ×2 (09:07→21:38)
[2017-06-30] MEDS: amLODIPine 5 MG TABLET PO SCH (09:07)
[2017-06-30] MEDS: Thiamine (B-1) 100 MG TABLET PO SCH (09:07)
[2017-06-30] MEDS: Cholecalciferol (D-3) 1,000 UNIT TABLET PO SCH (09:08)
[2017-06-30] MEDS: Nicotine 21 MG PATCH.TD24 TD SCH (09:08)
[2017-06-30] MEDS: Magnesium Oxide 400 MG TABLET PO SCH ×2 (09:08→21:40)
--- NOTE | 2017-06-30 18:47 | Internal Med Progress Note ---
Date of Encounter: 06/30/17 Time of Encounter: 18:45 - Assessment and plan (1) Chest pain Current Visit: Yes Status: Acute Qualifiers: Chest pain type: unspecified Qualified Code(s): R07.9 - Chest pain, unspecified (2) Alcohol use disorder Current Visit: No Status: Acute (3) Atrial fibrillation and flutter Current Visit: No Status: Acute (4) Fatty liver Current Visit: No Status: Acute (5) Hypertension Current Visit: Yes Status: Chronic Qualifiers: Hypertension type: essential hypertension Qualified Code(s): I10 - Essential (primary) hypertension (6) Bipolar 1 disorder, depressed, moderate Current Visit: No Status: Acute (7) Hypertension Current Visit: No Status: Acute Qualifiers: Hypertension type: essential hypertension Qualified Code(s): I10 - Essential (primary) hypertension - Subjective Interval history: Mr. Lauri Diggs is well known to our service due to his repeated admissions. Presentation is similar as a jatin himself and came with the nonspecific complain of chest pain. He has underlying GERD and cirrhosis of liver. I saw him this morning is not going through withdrawals. He denies any chest pain shortness of breath nausea vomiting or any other symptoms otherwise. He was concerned about his upper extremity shakes but as I look at it it appears to me that he is intentionally shaking his upper body and when attention was diverted shakes slowed down. He was seen by cardiology in the past and he had detailed cardiac workup in recent past. - Constitutional Vitals: Temp Pulse Resp BP Pulse Ox 97.9 F 102 18 130/89 97 06/30/17 07:08 06/30/17 07:08 06/30/17 11:25 06/30/17 07:08 06/30/17 11:25 General appearance: Present: cooperative, mild distress, A&O X 3, answers questions appropriately - Head Head exam: Present: atraumatic, normocephalic - Eye Eye exam: Present: PERRL, conjuntiva pink, sclera anicteric Pupils: Present: PERRL - Neck Neck exam general surgery: Present: supple, trachea midline. Absent: lymphadenopathy - Respiratory Respiratory exam: Present: CTAB. Absent: accessory muscle use, rales, rhonchi, wheezes - Cardiovascular Cardiovascular exam: Present: RRR, +S1, +S2. Absent: diastolic murmur, gallop, rubs, systolic murmur - GI/Abdominal GI/Abdominal exam: Present: normal bowel sounds, soft, no peritoneal signs. Absent: distended, tenderness - Extremities Exam Extremities exam: Present: warm, radial pulses palpable and symmetrical. Absent : calf tenderness, cyanotic, pedal edema - Neurological Exam Neurological exam: Present: CN II-XII intact, oriented X3, no focal deficits. Absent: pronater drift, facial droop, speech deficit - Skin Skin exam: Present: dry, intact Internal Medicine: Result - Labs CBC & Chem 7: 06/29/17 03:10 06/29/17 03:10 - ABG Interpretation ABG results: PT/INR, D-dimer PT 11.8 Seconds (9.4-12.1) 06/28/17 16:20 D-Dimer 450 ng/mLFEU (0-500) 06/28/17 22:12 - VTE Documentation of Mechanical Device: Intermittent pneumatic compression device Consult Discharge Plan - Plan Referrals: NONE,PCP [Primary Care Provider] -
[2017-06-30] MEDS: Divalproex (24 HR) 250 MG TABLET PO SCH (21:38)
[2017-07-01] MEDS: Acetaminophen/Butalbital/CaffeineTABLET PO PRN (00:41)
[2017-07-01] MEDS: Ipratropium/Albuterol Neb 3 ML IH SCH ×3 (03:58→11:02)
[2017-07-01 05:27] LABS: Mean Corpuscular Volume 86.3 fL (83.0-100.0)
[2017-07-01 05:29] LABS: Basophils % 0.7 %; Eosinophils # 0.1 K/mcL (0.0-0.6); Eosinophils % 3.8 %; Hematocrit 34.7 % (37.5-50.1); Hemoglobin 10.6 g/dL (12.9-16.9); Immature Granulocytes % 0.3 % (0-4); Immature Platelets 3.9 % (1.1-6.1); Lymphocytes # 0.9 K/mcL (0.6-4.6); Lymphocytes % 30.4 %; Mean Corpuscular HGB Conc 30.5 g/dL (31.6-35.5); Mean Corpuscular Hemoglobin 26.4 pg (28.0-33.3); Monocytes # 0.2 K/mcL (0.0-1.3); Monocytes % 6.6 %; Neutrophils # 1.7 K/mcL (1.6-8.9); Red Blood Count 4.02 M/mcL (4.19-5.50); Red Cell Distribution Width 15.3 % (11.5-14.5); Segmented Neutrophils % 58.2 %
[2017-07-01 05:32] LABS: Platelet Count 96 K/mcL (140-400)
[2017-07-01 05:51] LABS: Alanine Aminotransferase 43 Units/L (0-55); Albumin 3.2 g/dL (3.5-5.0); Albumin/Globulin Ratio 0.8 (1.1-2.2); Alkaline Phosphatase 87 Units/L (38-126); Aspartate Amino Transferase 47 Units/L (5-34); BUN/Creatinine Ratio 14 (6-26); Bilirubin,Total 0.3 mg/dL (0.2-1.2); Blood Urea Nitrogen 12 mg/dL (8-26); Calcium 9.3 mg/dL (8.6-10.8); Carbon Dioxide 17 mEq/L (19-29); Chloride 111 mEq/L (98-109); Globulin 4.2 g/dL (2.4-3.5); Glucose 114 mg/dL (70-99); Osmolality,Calculated 289 (280-300); Potassium 3.6 mEq/L (3.5-4.5); Sodium 139 mEq/L (136-145); Total Protein 7.4 g/dL (6.0-8.3); eGFR For African Americans > 60 (> 60); eGFR For Non-African Americans > 60 (> 60)
[2017-07-01] MEDS: 0.9 % Sodium Chloride w KCl 20 MEQ/1,000 ML MLS IVC SCH (06:42)
[2017-07-01 07:21] VITALS: BP 161/93
[2017-07-01] MEDS: *HR* Enoxaparin 40 MG/0.4 ML SYRINGE SQ SCH (09:05)
[2017-07-01] MEDS: Folic Acid 1 MG TABLET PO SCH (09:13)
[2017-07-01] MEDS: Vitamin B Complex/Vit C/Vit E 1 EACH TABLET PO SCH (09:13)
[2017-07-01] MEDS: Lactobacillus 1 EACH CAP.SPRINK PO SCH (09:13)
[2017-07-01] MEDS: Thiamine (B-1) 100 MG TABLET PO SCH (09:13)
[2017-07-01] MEDS: amLODIPine 5 MG TABLET PO SCH (09:14)
[2017-07-01] MEDS: Cholecalciferol (D-3) 1,000 UNIT TABLET PO SCH (09:14)
[2017-07-01] MEDS: Magnesium Oxide 400 MG TABLET PO SCH (09:14)
[2017-07-01] MEDS: Nicotine 21 MG PATCH.TD24 TD SCH (09:14)
[2017-07-01] MEDS: Gabapentin 300 MG CAPSULE PO SCH (09:14)
--- NOTE | 2017-07-01 09:25 | Discharge Summary ---
Date of Encounter: 07/01/17 Time of Encounter: 09:18 - Discharge Diagnosis (1) Chest pain Priority: Secondary Status: Acute Qualifiers: Chest pain type: unspecified Qualified Code(s): R07.9 - Chest pain, unspecified (2) Alcohol use disorder Priority: Primary Status: Acute (3) Atrial fibrillation and flutter Priority: Secondary Status: Acute (4) Fatty liver Priority: Secondary Status: Acute (5) Hypertension Priority: Secondary Status: Chronic Qualifiers: Hypertension type: essential hypertension Qualified Code(s): I10 - Essential (primary) hypertension (6) Bipolar 1 disorder, depressed, moderate Priority: Secondary Status: Acute (7) Hypertension Priority: Secondary Status: Acute Qualifiers: Hypertension type: essential hypertension Qualified Code(s): I10 - Essential (primary) hypertension - Discharge Medications Prescriptions: Carvedilol [Coreg] 3.125 mg PO BIDWM #60 tab Home Medications: Albuterol Sulfate [Proair Hfa] 2 puff IH Q4H PRN 12/21/16 [History] Quetiapine Fumarate [Seroquel] 300 mg PO HS 12/21/16 [History] SUMAtriptan succinate [Imitrex] 6 mg SQ AD PRN 12/21/16 [History] Lipase/Protease/Amylase [Creon Dr 12,000 Units Capsule] 3 cap PO TIDWM 03/15/17 [History] Omeprazole [PriLOSEC] 20 mg PO DAILY 03/15/17 [History] Amlodipine Besylate 10 mg PO DAILY 03/27/17 [History] Budesonide/Formoterol 160/4.5 [Symbicort 160/4.5] 1 puff IH BIDR 03/27/17 [ History] Desonide [Tridesilon] 1 appl TP BID PRN 03/27/17 [History] Folic Acid 2 mg PO DAILY 03/27/17 [History] Hydrocortisone 1% CREAM [Cortaid] 1 appl TP BID PRN 03/27/17 [History] Magnesium Oxide [Mag-Ox] 400 mg PO BID 03/27/17 [History] Thiamine (B-1) [Vitamin B-1] 100 mg PO BID 03/27/17 [History] Cholecalciferol (Vitamin D3) [Vitamin D3] 1,000 unit PO DAILY 04/23/17 [History] Cyanocobalamin (Vitamin B-12) [Vitamin B-12] 500 mcg PO DAILY 06/03/17 [History] Divalproex (24 HR) [Depakote ER (24 HR)] 1,250 mg PO HS 06/03/17 [History] Gabapentin [Neurontin] 600 mg PO TID 06/03/17 [History] Ketoconazole Shampoo [Nizoral Shampoo] 1 appl TP 2XW 06/03/17 [History] Lactobacillus [Culturelle] 1 each PO BID 06/03/17 [History] Amitriptyline [Elavil] 75 mg PO HS 06/29/17 [History] Lipase/Protease/Amylase [Creon Dr 12,000 Units Capsule] 3 cap PO TID 06/29/17 [ History] traZODone [TraZODone] 50 mg PO TID 06/29/17 [History] Carvedilol [Coreg] 3.125 mg PO BIDWM #60 tab 07/01/17 [Rx] Nicotine Patch [Nicoderm] 21 mg TD DAILY 07/01/17 [Rx] Allergies/Adverse Reactions: 3 Allergy/AdvReac Type Severity Reaction Status Date / Time Buspirone [From BuSpar] AdvReac See Verified 05/11/17 12:41 Comments tramadol AdvReac See Verified 06/03/17 22:13 Comments Date of admission: 06/29/17 18:29 Primary care physician: PCP NONE Discharging clinician: Gera Albarran Anticipated date of discharge: 07/01/17 - Patient Status Disposition: Home, Self-Care Condition: Good Overall status at discharge: patient is progressing back to baseline - Discharge Instructions Instructions: Alcohol Intoxication (DC), At-Risk Alcohol Use (DC) Follow Up With: NONE,PCP [Primary Care Provider] - - Diet and Activity Activity: resume usual activities as tolerated Diet: advance to your usual diet, low fat, low cholesterol, low salt diet Hospital course: Mr. Lauri Chen is well known to our service due to his repeated admissions for alcoholism and alcohol withdrawal . He came in with the complaint of alcohol withdrawal and nonspecific chest wall pain.. He has underlying GERD and cirrhosis of liver. He was seen by cardiology for similar symptoms last month and after an echocardiogram and careful evaluation cardiology felt that he has noncardiac chest wall pain. His cardiac enzymes were negative during this admission. EKG did not show any ischemic changes. he did not go through the full withdrawal this time as it was anticipated and he was given some benzodiazepines. Now he is without any need of medication for last 24 hours or more and very eager to get out of hospital. He has been provided outpatient resources for alcohol and substance rehabilitation and to follow-up with them. Unfortunately he has very poor compliance. - Time Spent with Patient Total time spent providing and/or coordinating discharge services: Greater than 30 minutes - Constitutional Vitals: Temp Pulse Resp BP Pulse Ox 97.4 F L 91 18 161/93 98 07/01/17 07:15 07/01/17 07:15 07/01/17 07:15 07/01/17 07:15 07/01/17 07:15 General appearance: Present: cooperative, A&O X 3, no acute distress, answers questions appropriately - Head Head exam: Present: atraumatic, normocephalic - Eye Eye exam: Present: PERRL, conjuntiva pink, sclera anicteric Pupils: Present: PERRL - Neck Neck exam general surgery: Present: supple, trachea midline. Absent: lymphadenopathy - Respiratory Respiratory exam: Present: CTAB. Absent: accessory muscle use, rales, rhonchi, wheezes - Cardiovascular Cardiovascular exam: Present: RRR, +S1, +S2. Absent: diastolic murmur, gallop, rubs, systolic murmur - GI/Abdominal GI/Abdominal exam: Present: normal bowel sounds, soft, no peritoneal signs. Absent: distended, tenderness - Extremities Exam Extremities exam: Present: warm, radial pulses palpable and symmetrical. Absent : calf tenderness, cyanotic, pedal edema - Neurological Exam Neurological exam: Present: CN II-XII intact, oriented X3, no focal deficits. Absent: pronater drift, facial droop, speech deficit - Skin Skin exam: Present: dry, intact - VTE Documentation of Mechanical Device: Intermittent pneumatic compression device
== END 2017-07-01 11:43 | disposition home or self-care (01) | DRG 897 ==
LOC: EMEROO 15:52 → 3BNU 15:52 → SUATTDRO 17:57 → 3BNU 18:20
PROVIDERS: ADMIT Nurse Practitioner; ATTEND Internal Medicine

== ENCOUNTER 2017-08-08 05:04 | Inpatient (IN) ==
[2017-08-08] MEDS ORDERED: *HR* LORazepam 2 MG/ML VIAL IVP ONE (05:05)
[2017-08-08] MEDS ORDERED: Thiamine (B-1) 100 MG, Folic Acid 1 MG, MVI, adult with vitamin K 10 ML in 0.9 % Sodi... IVPB ONE (05:11)
--- NOTE | 2017-08-08 05:12 | Emergency Department Note ---
Disposition Clinical Impression: Alcohol withdrawal Qualifiers: Complication of substance-induced condition: with unspecified complication Qualified Code(s): F10.239 - Alcohol dependence with withdrawal, unspecified Disposition: Admitted As Inpatient Condition: Fair Time of Disposition: 06:34 Alcohol HPI - General Chief Complaint: ED Alcohol Abuse Stated Complaint: ETOH Time Seen by Provider: 08/08/17 05:05 Source: patient, EMS Mode of arrival: EMS Limitations: no limitations Nursing Notes Reviewed: Yes Vital Signs Reviewed: Yes - History of Present Illness HPI Narrative: Patient is a 62-year-old male with past medical history of chronic alcohol use. He presents today due to alcohol withdrawal symptoms, tremors, headache. He states that he ran out of money and cannot afford alcohol. His last drink was which is approximately 2 days ago. He usually drinks a fifth of vodka or liquor a day. He admits to a headache as well. Denies any chest pain, shortness breath, nausea, vomiting, diarrhea, change in bowel or bladder habits. - Related Data Home Medications Medication Instructions Recorded Confirmed Albuterol Sulfate [Proair Hfa] 2 puff IH Q4H PRN 12/21/16 06/29/17 Quetiapine Fumarate [Seroquel] 300 mg PO HS 12/21/16 06/29/17 SUMAtriptan succinate [Imitrex] 6 mg SQ AD PRN 12/21/16 06/29/17 Lipase/Protease/Amylase [Ananya Kern 3 cap PO TIDWM 03/15/17 06/29/17 12,000 Units Capsule] Omeprazole [PriLOSEC] 20 mg PO DAILY 03/15/17 06/29/17 Amlodipine Besylate 10 mg PO DAILY 03/27/17 06/29/17 Budesonide/Formoterol 160/4.5 1 puff IH BIDR 03/27/17 06/29/17 [Symbicort 160/4.5] Desonide [Tridesilon] 1 appl TP BID PRN 03/27/17 06/29/17 Folic Acid 2 mg PO DAILY 03/27/17 06/29/17 Hydrocortisone 1% CREAM [Cortaid] 1 appl TP BID PRN 03/27/17 06/29/17 Magnesium Oxide [Mag-Ox] 400 mg PO BID 03/27/17 06/29/17 Thiamine (B-1) [Vitamin B-1] 100 mg PO BID 03/27/17 06/29/17 Cholecalciferol (Vitamin D3) 1,000 unit PO DAILY 04/23/17 06/29/17 [Vitamin D3] Cyanocobalamin (Vitamin B-12) 500 mcg PO DAILY 06/03/17 06/29/17 [Vitamin B-12] Divalproex (24 HR) [Depakote ER 1,250 mg PO HS 06/03/17 06/29/17 (24 HR)] Gabapentin [Neurontin] 600 mg PO TID 06/03/17 06/29/17 Ketoconazole Shampoo [Nizoral 1 appl TP 2XW 06/03/17 06/29/17 Shampoo] Lactobacillus [Culturelle] 1 each PO BID 06/03/17 06/29/17 Amitriptyline [Elavil] 75 mg PO HS 06/29/17 06/29/17 Lipase/Protease/Amylase [Ananya Dr 3 cap PO TID 06/29/17 06/29/17 12,000 Units Capsule] traZODone [TraZODone] 50 mg PO TID 06/29/17 06/29/17 Previous Rx's Medication Instructions Recorded Carvedilol [Coreg] 3.125 mg PO BIDWM #60 tab 07/01/17 Nicotine Patch [Nicoderm] 21 mg TD DAILY 07/01/17 Allergies Allergy/AdvReac Type Severity Reaction Status Date / Time Buspirone [From BuSpar] AdvReac See Verified 08/08/17 05:06 Comments tramadol AdvReac See Verified 08/08/17 05:06 Comments All systems ED: reviewed and negative except as stated. Constitutional: Denies: fever Cardiovascular: Denies: chest pain Respiratory: Denies: cough, dyspnea Gastrointestinal: Denies: abdominal pain, nausea, vomiting, diarrhea Neurological: Reports: headache, other (Shaking). Denies: weakness, numbness, paresthesias Past Medical History - Past Medical History Attestation: Yes The following information was validated with the patient. Source: patient Medical history: Reports: COPD, GERD, hypertension, migraine, myocardial infarction, other Surgical history: Reports: appendectomy, cholecystectomy, other Psychiatric history: Reports: anxiety, bipolar, depression, schizophrenia - Social History Smoking Status: Current every day smoker Smokeless Tobacco Status: No Alcohol use: Reports: heavy Drug use: Reports: none Physical Exam - General Limitations: no limitations General appearance: alert, in no apparent distress - Head Head exam: atraumatic, normocephalic, normal inspection - Eye Eye exam: Present: normal appearance, PERRL, EOMI - ENT ENT exam: normal exam, normal oropharynx, mucous membranes moist - Neck Neck exam: Present: normal inspection, full ROM, trachea midline - Chest Chest inspection: Present: normal inspection, symmetric chest wall rise - Respiratory Respiratory exam: Present: normal lung sounds bilaterally - Cardiovascular Cardiovascular exam: Present: regular rate, normal rhythm, normal heart sounds - Abdominal Exam Abdominal exam: Present: soft, Non-Tender. Absent: tenderness, distention, guarding, rebound, rigidity - Extremities Exam Extremities exam: Present: normal inspection, full ROM. Absent: tenderness, pedal edema - Neurological Exam Neurological exam: Present: alert, oriented X3, CN II-XII intact, other ( tremors of all extremities). Absent: motor sensory deficit - Psychiatric Psychiatric exam: Present: normal affect, anxious - Skin Skin exam: Present: warm, dry, intact, normal color Course Course Narrative: Vitals within normal limits. On physical exam, patient has tremors of all extremities. Otherwise, the rest of the physical exam was benign. No focal neurologic deficits. Heart regular rate and rhythm, lungs clear to auscultation , abdomen soft and nontender. We will obtain basic labs, EKG, chest x-ray, troponin, CT of the head to assess for headache. We will give the patient Ativan for symptomatic control tremors. Will also give banana bag. 06:15 No major abnormality in labs. Troponin negative. EKG normal sinus rhythm without acute ST changes. Head CT negative for any acute intracranial abnormality. We will admit the patient for alcohol withdrawal and further care. Head CT 08/08/17 05:23 IMPRESSION: No acute intracranial abnormality. D/ / Leslie Larson MD / Leslie Larson MD Interpreting Provider: Leslie Larson MD Vital Signs Temperature 98 F 08/08/17 05:06 Pulse Rate 83 08/08/17 05:06 Respiratory Rate 20 08/08/17 05:06 Blood Pressure 123/97 08/08/17 05:06 O2 Sat by Pulse Oximetry 100 08/08/17 05:06 Temperature 98 F 08/08/17 05:06 Pulse Rate 63 08/08/17 05:54 Respiratory Rate 18 08/08/17 05:54 Blood Pressure 110/89 08/08/17 05:54 O2 Sat by Pulse Oximetry 94 08/08/17 05:54 Oxygen Delivery Oxygen Delivery Room Air Alcohol - MDM Narrative Medical decision making narrative: No major abnormality in labs. Troponin negative. EKG normal sinus rhythm without acute ST changes. Head CT negative for any acute intracranial abnormality. We will admit the patient for alcohol withdrawal and further care. - Medical Records Medical records reviewed: Yes I reviewed the patient's medical records. - Lab Data Lab results reviewed: Yes I reviewed the patient's lab results. Result diagrams: 08/08/17 05:40 08/08/17 05:40 Lab Results 08/08/17 08/08/17 08/08/17 Range/Units 05:40 05:40 05:40 WBC 4.8 (4.3-11.1) K/mcL RBC 4.89 (4.19-5.50) M/mcL Hgb 13.1 (12.9-16.9) g/dL Hct 40.4 (37.5-50.1) % MCV 82.6 L (83.0-100.0) fL MCH 26.8 L (28.0-33.3) pg MCHC 32.4 (31.6-35.5) g/dL RDW 15.7 H (11.5-14.5) % Plt Count 178 (140-400) K/mcL MPV 9.2 L (9.4-12.4) fL Immature Gran % 0.2 (0-4) % Seg Neutrophils % 62.6 % Lymphocytes % 27.3 % Monocytes % 8.7 % Eosinophils % 0.6 % Basophils % 0.6 % Neutrophils # 3.0 (1.6-8.9) K/mcL Lymphocytes # 1.3 (0.6-4.6) K/mcL Monocytes # 0.4 (0.0-1.3) K/mcL Eosinophils # 0.0 (0.0-0.6) K/mcL Basophils # 0.0 (0.0-0.2) K/mcL PT 11.2 (9.4-12.1) Seconds INR 1.0 APTT 30.6 (26.0-36.0) Seconds Sodium 137 (136-145) mEq/L Potassium 3.3 L (3.5-4.5) mEq/L Chloride 100 (98-109) mEq/L Carbon Dioxide 20 (19-29) mEq/L BUN 10 (8-26) mg/dL Creatinine 0.83 (0.72-1.25) mg/dL Est GFR ( Amer) > 60 (> 60) Est GFR (Non-Af Amer) > 60 (> 60) BUN/Creatinine Ratio 12 (6-26) Glucose 105 H (70-99) mg/dL Calculated Osmolality 283 (280-300) Calcium 9.6 (8.6-10.8) mg/dL Phosphorus 1.4 L (2.3-4.7) mg/dL Magnesium 1.4 L (1.6-2.6) mg/dL Troponin I (0-0.03) ng/mL 08/08/17 Range/Units 05:40 WBC (4.3-11.1) K/mcL RBC (4.19-5.50) M/mcL Hgb (12.9-16.9) g/dL Hct (37.5-50.1) % MCV (83.0-100.0) fL MCH (28.0-33.3) pg MCHC (31.6-35.5) g/dL RDW (11.5-14.5) % Plt Count (140-400) K/mcL MPV (9.4-12.4) fL Immature Gran % (0-4) % Seg Neutrophils % % Lymphocytes % % Monocytes % % Eosinophils % % Basophils % % Neutrophils # (1.6-8.9) K/mcL Lymphocytes # (0.6-4.6) K/mcL Monocytes # (0.0-1.3) K/mcL Eosinophils # (0.0-0.6) K/mcL Basophils # (0.0-0.2) K/mcL PT (9.4-12.1) Seconds INR APTT (26.0-36.0) Seconds Sodium (136-145) mEq/L Potassium (3.5-4.5) mEq/L Chloride (98-109) mEq/L Carbon Dioxide (19-29) mEq/L BUN (8-26) mg/dL Creatinine (0.72-1.25) mg/dL Est GFR ( Amer) (> 60) Est GFR (Non-Af Amer) (> 60) BUN/Creatinine Ratio (6-26) Glucose (70-99) mg/dL Calculated Osmolality (280-300) Calcium (8.6-10.8) mg/dL Phosphorus (2.3-4.7) mg/dL Magnesium (1.6-2.6) mg/dL Troponin I 0.00 (0-0.03) ng/mL - Radiology Data Radiology results reviewed: Yes I reviewed the patient's radiology results. - EKG Data EKG attestation: Yes I reviewed and interpreted this EKG. EKG results narrative: 08/08/2017 at 05:08. Normal sinus rhythm. Rate 81. MS 149. QRS 78. QTC 402. Left axis deviation. Peaked T waves in lead V3, V4, V5 S.B.A.R. - S.Avani.A.Lucian Situation: Demographics, MOA Background: Presenting Complaint, Relevant PMH, Meds, & Allergies Assessment: Vital Signs, Course and respsone to treatment, Exam Concerns, Patient/Family Expectation, Pertinant Lab Results Recommendation: Barrier(s) to disposition, Recommendation based on pending studies, treatments, or consults S.B.AAmelie Report Given to: Dr. Hao Ca Repor Time: 06:33
--- NOTE | 2017-08-08 05:33 | Emergency Department Note ---
START Narrative - START START: I examined this patient and my medical decision-making was reviewed with the Resident Physician. I agree with the documented findings, disposition and treatment plan as described except to the extent set forth below. 62 year old male known alcoholic states that he has been without alcohol since thrusday because he has didnt have any money to buy alcohol. Patient states that he has had tremors, a headache, and nausea/vomitting for the past 24 hours and is going through withdrawls. WE will start CIWA protocol and HCT and admit to medicne.
[2017-08-08 05:50] LABS: Basophils % 0.6 %; Eosinophils % 0.6 %; Hematocrit 40.4 % (37.5-50.1); Hemoglobin 13.1 g/dL (12.9-16.9); Immature Granulocytes % 0.2 % (0-4); Lymphocytes # 1.3 K/mcL (0.6-4.6); Lymphocytes % 27.3 %; Mean Corpuscular HGB Conc 32.4 g/dL (31.6-35.5); Mean Corpuscular Hemoglobin 26.8 pg (28.0-33.3); Mean Corpuscular Volume 82.6 fL (83.0-100.0); Mean Platelet Volume 9.2 fL (9.4-12.4); Monocytes # 0.4 K/mcL (0.0-1.3); Monocytes % 8.7 %; Platelet Count 178 K/mcL (140-400); Red Blood Count 4.89 M/mcL (4.19-5.50); Red Cell Distribution Width 15.7 % (11.5-14.5); Segmented Neutrophils % 62.6 %
[2017-08-08 05:56] LABS: Prothrombin Time 11.2 Seconds (9.4-12.1)
[2017-08-08 05:58] LABS: Activated Partial Thrombo Time 30.6 Seconds (26.0-36.0)
[2017-08-08] MEDS ORDERED: Ondansetron 4 MG/2 ML VIAL IVP ONE (06:00)
[2017-08-08 06:01] LABS: BUN/Creatinine Ratio 12 (6-26); Blood Urea Nitrogen 10 mg/dL (8-26); Calcium 9.6 mg/dL (8.6-10.8); Carbon Dioxide 20 mEq/L (19-29); Chloride 100 mEq/L (98-109); Glucose 105 mg/dL (70-99); Magnesium 1.4 mg/dL (1.6-2.6); Osmolality,Calculated 283 (280-300); Phosphorous 1.4 mg/dL (2.3-4.7); Potassium 3.3 mEq/L (3.5-4.5); Sodium 137 mEq/L (136-145); eGFR For African Americans > 60 (> 60); eGFR For Non-African Americans > 60 (> 60)
[2017-08-08] MEDS ORDERED: *HR* LORazepam 2 MG/ML VIAL IVP STA (08:05)
--- NOTE | 2017-08-08 09:56 | Internal Med History&Physical ---
Date of Encounter: 08/08/17 Time of Encounter: 09:53 Assessment and Plan (1) Hypomagnesemia Current visit: Yes Status: Acute We will replete magnesium, phosphorus and potassium and recheck levels this afternoon. (2) Hypophosphatemia Current visit: Yes Status: Acute We will replete magnesium, phosphorus and potassium and recheck levels this afternoon. He is at high risk for cardiac arrhythmia and further complications due to alcoholism and electrolyte imbalance. (3) Tobacco abuse Current visit: No Status: Chronic We will provide nicotine replacement therapy. (4) DVT prophylaxis Current visit: No Status: Acute Encourage early ambulation. I will avoid antithrombotic state to high fall risk. (5) ETOH abuse Current visit: No Status: Acute social service consult for outpatient alcohol detox advice. (6) Bipolar disorder Current visit: No Status: Chronic Continue chronic psych meds. Qualifiers: Active/Remission status: currently active Current bipolar episode type: depressed Psychotic features: without psychotic features Qualified Code(s): F31.4 - Bipolar disorder, current episode depressed, severe, without psychotic features (7) Hypertension Current visit: No Status: Acute We will continue Norvasc and Coreg Qualifiers: Hypertension type: essential hypertension Qualified Code(s): I10 - Essential (primary) hypertension (8) Alcohol withdrawal Current visit: Yes Status: Acute He has severe alcohol withdrawal symptoms with excessive tremors, tachycardia and anxiety. He has had severe alcohol withdrawal in the past. He requires medical admission to control his alcohol withdrawal symptoms with IV benzodiazepines. We will start alcohol withdrawal protocol and treat him with oral and IV Ativan. Additionally would start oral Librium scheduled. We will add treatment with IV folate and thiamine and B12. Qualifiers: Complication of substance-induced condition: with unspecified complication Qualified Code(s): F10.239 - Alcohol dependence with withdrawal, unspecified Internal Medicine - H&P: HPI Chief complaint: Alcohol withdrawal symptoms Admitted From: Emergency Dept Plans for Post Hospital Care: Home History of present illness: Mr. Chen is a 62 year old male with history of alcoholism, aspiration pneumonia and empyema who presented to the emergency department for alcohol withdrawal symptoms. Mr. chen reports that he stopped drinking on 3 days ago because he ran out of money to buy alcohol. Yesterday he started experiencing increasing tremors, palpitations and anxiety which have progressively got worse and today his symptoms became severe and he decided to present to the hospital. He also reports bi-temporal migraine headache which is severe, with no aggravating or alleviating factors. Denies nausea vomiting diarrhea and chest pain. Denies cough or shortness of breath. Denies fever. A 10 point review of systems was negative except as above. Past medical history as above. Social history: He smokes one pack of cigarettes a day; reports drinking one fifth of cheap vodka daily, denies IV drug use. Past Med Surg Social Fam HX - Past Medical History Medical history: COPD, GERD, hypertension, migraine, myocardial infarction, other Psychiatric history: anxiety, bipolar, depression, schizophrenia - Past Surgical History Surgical History: appendectomy, cholecystectomy, other - Social History Smoking Status: Current every day smoker Smokeless Tobacco Status: No Alcohol use: heavy Drug use: none - Family History Mother Adopted: No Family Member Ethnicity: Non- Living Status: Still Living Hx Family Cardiac Disorders: Yes (htn) Hx Family Respiratory Disorders: No Hx Family Cancer: No Hx Family GI Disorders: No Hx Family Endocrine Disorder: No Hx Family Neuromuscular Disorders: Yes (Neuropathy) Hx Family Neurologic Disorders: No Hx Family HEENT Disorders: No Hx Family Autoimmune Disorders: No Father Living Status: Internal Medicine - H&P: Meds Albuterol Sulfate [Proair Hfa] 2 puff IH Q4H PRN 12/21/16 [History] Quetiapine Fumarate [Seroquel] 300 mg PO HS 12/21/16 [History] SUMAtriptan succinate [Imitrex] 6 mg SQ AD PRN 12/21/16 [History] Lipase/Protease/Amylase [Ananya Kern 12,000 Units Capsule] 3 cap PO TIDWM 03/15/17 [History] Omeprazole [PriLOSEC] 20 mg PO DAILY 03/15/17 [History] Amlodipine Besylate 10 mg PO DAILY 03/27/17 [History] Budesonide/Formoterol 160/4.5 [Symbicort 160/4.5] 1 puff IH BIDR 03/27/17 [ History] Desonide [Tridesilon] 1 appl TP BID PRN 03/27/17 [History] Folic Acid 2 mg PO DAILY 03/27/17 [History] Hydrocortisone 1% CREAM [Cortaid] 1 appl TP BID PRN 03/27/17 [History] Magnesium Oxide [Mag-Ox] 400 mg PO BID 03/27/17 [History] Thiamine (B-1) [Vitamin B-1] 100 mg PO BID 03/27/17 [History] Cholecalciferol (Vitamin D3) [Vitamin D3] 1,000 unit PO DAILY 04/23/17 [History] Cyanocobalamin (Vitamin B-12) [Vitamin B-12] 500 mcg PO DAILY 06/03/17 [History] Divalproex (24 HR) [Depakote ER (24 HR)] 1,250 mg PO HS 06/03/17 [History] Gabapentin [Neurontin] 600 mg PO TID 06/03/17 [History] Ketoconazole Shampoo [Nizoral Shampoo] 1 appl TP 2XW 06/03/17 [History] Lactobacillus [Culturelle] 1 each PO BID 06/03/17 [History] Amitriptyline [Elavil] 75 mg PO HS 06/29/17 [History] Lipase/Protease/Amylase [Creon Dr 12,000 Units Capsule] 3 cap PO TID 06/29/17 [ History] traZODone [TraZODone] 50 mg PO TID 06/29/17 [History] Carvedilol [Coreg] 3.125 mg PO BIDWM #60 tab 07/01/17 [Rx] Nicotine Patch [Nicoderm] 21 mg TD DAILY 07/01/17 [Rx] 3 Allergy/AdvReac Type Severity Reaction Status Date / Time Buspirone [From BuSpar] AdvReac See Verified 08/08/17 05:06 Comments tramadol AdvReac See Verified 08/08/17 05:06 Comments All Systems PM: A 10-system review of systems was performed and is negative for pertinent findings except as documented above in the HPI. - Constitutional Vitals: Temp Pulse Resp BP Pulse Ox 99.0 F 87 15 178/130 96 08/08/17 08:39 08/08/17 08:39 08/08/17 08:39 08/08/17 08:39 08/08/17 08:39 General appearance: Present: disheveled, mild distress, A&O X 3 - Eye Eye exam: Present: PERRL, conjuntiva pink, sclera anicteric Pupils: Present: PERRL - Respiratory Respiratory exam: Present: CTAB. Absent: accessory muscle use, rales, rhonchi, wheezes - Cardiovascular Cardiovascular exam: Present: RRR, +S1, +S2. Absent: diastolic murmur, gallop, rubs, systolic murmur - GI/Abdominal GI/Abdominal exam: Present: normal bowel sounds, soft, no peritoneal signs. Absent: distended, tenderness - Extremities Exam Extremities exam: Present: warm, radial pulses palpable and symmetrical. Absent : calf tenderness, cyanotic, pedal edema - Neurological Exam Neurological exam: Present: CN II-XII intact, oriented X3, no focal deficits. Absent: facial droop, speech deficit Additional comments: Upper extremity tremors - Skin Skin exam: Present: dry, intact Internal Med - H&P Results - Labs CBC & Chem 7: 08/08/17 05:40 08/08/17 05:40 - EKG Data -: EKG Interpreted by Myself EKG shows normal: sinus rhythm (88 bpm), intervals, QRS complexes, ST-T waves
[2017-08-08] MEDS ORDERED: *HR* Promethazine 25 MG/ML VIAL IVP PRN (10:11)
[2017-08-08] MEDS ORDERED: Naloxone 0.4 MG/ML INJ IVP PRN (10:11)
[2017-08-08] MEDS ORDERED: Ondansetron 4 MG/2 ML VIAL IVP PRN (10:11)
[2017-08-08] MEDS ORDERED: Magnesium Sulfate 2 GM in D5% in Water 100 ML IVPB ONE (10:19)
[2017-08-08] MEDS ORDERED: Potassium Phosphate 44 MEQ in 0.9 % Sodium Chloride 250 ML IVPB ONE (10:20)
[2017-08-08] MEDS: Famotidine 20 MG/2 ML VIAL IVP SCH ×2 (11:48→18:02)
[2017-08-08] MEDS: Acetaminophen 325 MG TABLET PO PRN ×2 (11:48→20:28)
[2017-08-08] MEDS: Pantoprazole 40 MG VIAL IVP SCH (11:48)
[2017-08-08] MEDS: *HR* LORazepam 2 MG/ML VIAL IVP PRN ×3 (11:57→20:38)
[2017-08-08] MEDS: Gabapentin 300 MG CAPSULE PO SCH ×2 (15:36→20:29)
[2017-08-08] MEDS: SUMAtriptan 6 MG/0.5 ML SQ PRN (18:03)
[2017-08-08] MEDS ORDERED: *HR* Metoprolol 5 MG/5 ML VIAL IVP PRN (19:40)
[2017-08-08] MEDS: amLODIPine 5 MG TABLET PO SCH (20:27)
[2017-08-08] MEDS: Budesonide/Formoterol 160/4.5 MDI IH SCH (20:27)
[2017-08-08] MEDS: Magnesium Oxide 400 MG TABLET PO SCH (20:28)
[2017-08-08 20:41] LABS: Magnesium 1.4 mg/dL (1.6-2.6); Potassium 3.1 mEq/L (3.5-4.5)
[2017-08-08 20:57] LABS: Phosphorous 3.9 mg/dL (2.3-4.7)
[2017-08-08] MEDS: Divalproex (24 HR) 250 MG TABLET PO SCH (20:58)
[2017-08-08] MEDS ORDERED: Gabapentin 300 MG CAPSULE PO SCH (21:00)
[2017-08-08] MEDS ORDERED: Divalproex (24 HR) 500 MG TABLET PO SCH (21:00)
[2017-08-08] MEDS ORDERED: Divalproex (24 HR) 250 MG TABLET PO SCH (21:00)
[2017-08-09 02:15] LABS: Basophils % 0.9 %; Eosinophils # 0.1 K/mcL (0.0-0.6); Eosinophils % 1.5 %; Hematocrit 39.6 % (37.5-50.1); Hemoglobin 12.7 g/dL (12.9-16.9); Immature Granulocytes % 0.3 % (0-4); Lymphocytes # 1.3 K/mcL (0.6-4.6); Lymphocytes % 38.7 %; Mean Corpuscular HGB Conc 32.1 g/dL (31.6-35.5); Mean Corpuscular Hemoglobin 26.8 pg (28.0-33.3); Mean Corpuscular Volume 83.7 fL (83.0-100.0); Mean Platelet Volume 9.3 fL (9.4-12.4); Monocytes # 0.3 K/mcL (0.0-1.3); Monocytes % 9.8 %; Neutrophils # 1.6 K/mcL (1.6-8.9); Platelet Count 124 K/mcL (140-400); Red Blood Count 4.73 M/mcL (4.19-5.50); Red Cell Distribution Width 15.6 % (11.5-14.5); Segmented Neutrophils % 48.8 %
[2017-08-09 02:30] LABS: Alanine Aminotransferase 45 Units/L (0-55); Albumin 3.9 g/dL (3.5-5.0); Albumin/Globulin Ratio 0.9 (1.1-2.2); Alkaline Phosphatase 95 Units/L (38-126); Aspartate Amino Transferase 64 Units/L (5-34); BUN/Creatinine Ratio 13 (6-26); Bilirubin,Total 0.8 mg/dL (0.2-1.2); Blood Urea Nitrogen 16 mg/dL (8-26); Calcium 9.1 mg/dL (8.6-10.8); Carbon Dioxide 25 mEq/L (19-29); Chloride 102 mEq/L (98-109); Globulin 4.2 g/dL (2.4-3.5); Glucose 131 mg/dL (70-99); Magnesium 2.6 mg/dL (1.6-2.6); Osmolality,Calculated 289 (280-300); Phosphorous 4.2 mg/dL (2.3-4.7); Potassium 2.9 mEq/L (3.5-4.5); Sodium 138 mEq/L (136-145); Total Protein 8.1 g/dL (6.0-8.3); eGFR For African Americans > 60 (> 60); eGFR For Non-African Americans 59 (> 60)
[2017-08-09] MEDS ORDERED: Potassium Effervescent 25 MEQ TABLET.EFF PO ONE (03:14)
[2017-08-09] MEDS ORDERED: Potassium Chloride 40 MEQ, Lidocaine 1% 2 ML in D5% in Water 500 ML IVPB ONE ×2 (03:30→08:01)
[2017-08-09] MEDS: Ipratropium/Albuterol Neb 3 ML IH SCH ×6 (03:50→23:14)
--- NOTE | 2017-08-09 05:48 | Event Note ---
Date of Encounter: 08/09/17 Time of Encounter: 01:43 Notified by RN at 01:39 that patient is very lethargic and hard to arouse after receiving his evening doses of Seroquel and Elavil. He is on Librium for ETOH withdrawal and has not had any Ativan per CIWA since 20:45. He also had a significant drop in BP from 192/134 to 103/75 during the night. He was not given any pain medication. On exam, patient is arousable to sternal rub, appears somnolent, but is protecting his airway without difficulty. Lung auscultation revealed diffuse wheezing and good air movement. Heart rate was tachycardic with pulse 110. CT brain negative earlier in the day and CXR revealed pleural thickening in the right base. Patient denied fever, chills, CP, SOB, abd pain, or productive cough. Labs revealed pancytopenia, negative lactic acid, and hypokalemia. Potassium was given, Duonebs ordered, and sedative meds put on hold. Recommend continued aspiration precautions, CIWA assessments, and close monitoring. Head CT 08/08/17 05:23 IMPRESSION: No acute intracranial abnormality. D/ / Leslie Larson MD / Leslie Larson MD Interpreting Provider: Leslie Larson MD Chest X-Ray 08/09/17 01:56 IMPRESSION: Questionable density in the right lung base with pleural thickening which could be fluid. Follow up to resolution is suggested. CT could better evaluate lung parenchyma if indicated. D/ / Ignacia Mohr MD / Ignacia Mohr MD Interpreting Provider: Ignacia Mohr MD
[2017-08-09] MEDS: Famotidine 20 MG/2 ML VIAL IVP SCH ×2 (06:28→17:24)
[2017-08-09] MEDS: Budesonide/Formoterol 160/4.5 MDI IH SCH ×2 (07:38→19:43)
[2017-08-09] MEDS: Gabapentin 300 MG CAPSULE PO SCH ×2 (08:12→16:07)
[2017-08-09] MEDS: Pantoprazole 40 MG VIAL IVP SCH (08:12)
[2017-08-09] MEDS: Magnesium Oxide 400 MG TABLET PO SCH ×2 (08:13→20:16)
[2017-08-09] MEDS: amLODIPine 5 MG TABLET PO SCH (08:13)
[2017-08-09] MEDS: Nicotine 21 MG PATCH.TD24 TD SCH (08:13)
[2017-08-09] MEDS: *HR* LORazepam 2 MG/ML VIAL IVP PRN ×3 (08:25→18:16)
[2017-08-09] MEDS: SUMAtriptan 6 MG/0.5 ML SQ PRN (11:20)
[2017-08-09] MEDS: Thiamine (B-1) 100 MG, Folic Acid 1 MG, MVI, adult with vitamin K 10 ML in 0.9 % Sodi... IVPB SCH ×2 (11:33→18:21)
[2017-08-09] MEDS: Acetaminophen 325 MG TABLET PO PRN (14:08)
[2017-08-09 15:30] LABS: Amphetamine Screen,Urine Negative ng/mL (Cutoff=1000); Barbiturate Screen,Urine Negative ng/mL (Cutoff=200); Benzodiazepines Screen,Urine Positive ng/mL (Cutoff=200); Cannabinoid Screen,Urine Negative ng/mL (Cutoff = 50); Cocaine Screen,Urine Negative ng/mL (Cutoff= 300); Opiate Screen,Urine Negative ng/mL (Cutoff=300); Phencyclidine Screen,Urine Negative ng/mL (Cutoff=25)
--- NOTE | 2017-08-09 17:49 | Internal Med Progress Note ---
Date of Encounter: 08/09/17 Time of Encounter: 07:30 - Assessment and plan (1) Alcohol withdrawal Current Visit: No Status: Acute Assessment and plan: Currently on scheduled Librium and CIWA. Will decrease Librium starting tomorrow. Continue supportive care for now. Qualifiers: Complication of substance-induced condition: uncomplicated Qualified Code(s ): F10.230 - Alcohol dependence with withdrawal, uncomplicated (2) Anemia Current Visit: No Status: Chronic Assessment and plan: H/H relatively stable at this time. He appears to have some marrow suppression from ETOH. Qualifiers: Anemia type: other cause Other causes of anemia: chronic disease, other Qualified Code(s): D63.8 - Anemia in other chronic diseases classified elsewhere (3) Tobacco abuse Current Visit: No Status: Chronic Assessment and plan: Cessation counselling. (4) Hypokalemia Current Visit: No Status: Resolved Assessment and plan: Recheck in AM. (5) Hypomagnesemia Current Visit: Yes Status: Acute Assessment and plan: Recheck in AM. (6) Hypertension Current Visit: No Status: Chronic Assessment and plan: Continue home meds. Qualifiers: Hypertension type: essential hypertension Qualified Code(s): I10 - Essential (primary) hypertension (7) Schizoaffective disorder, bipolar type without good prognostic features Current Visit: No Status: Chronic Assessment and plan: Continue home meds. - Subjective Interval history: Mr Chen is currently admitted for acute alcohol abuse and withdrawal. He remains moderate to high risk due to potential for worsening resp status. Mr Chen was very sedated on his meds last night. He now admits that he has not been taking all of them due to the alcohol. He has no new complaints at this time. No fever or chills. - Constitutional Vitals: Temp Pulse Resp BP Pulse Ox 97.7 F 98 14 145/98 96 08/09/17 15:56 08/09/17 15:56 08/09/17 15:56 08/09/17 15:56 08/09/17 15:56 General appearance: Present: disheveled, A&O X 3 - Head Head exam: Present: normocephalic - Eye Eye exam: Present: EOMI, conjuntiva pink - ENT ENT exam: Present: mucous membranes dry - Respiratory Respiratory exam: Present: decreased breath sounds, CTAB - Cardiovascular Cardiovascular exam: Present: RRR. Absent: tachycardia - GI/Abdominal GI/Abdominal exam: Present: soft. Absent: tenderness - Extremities Exam Extremities exam: Present: warm - Neurological Exam Neurological exam: Present: alert, oriented X3 - Skin Skin exam: Present: warm Internal Medicine: Result - Labs CBC & Chem 7: 08/09/17 02:08 08/09/17 08:51 Labs: Short CBC 08/09/17 Range/Units 02:08 WBC 3.4 L (4.3-11.1) K/mcL Hgb 12.7 L (12.9-16.9) g/dL Hct 39.6 (37.5-50.1) % Plt Count 124 L (140-400) K/mcL Neutrophils # 1.6 (1.6-8.9) K/mcL BMP 08/08/17 08/09/17 08/09/17 20:24 02:08 08:51 Sodium 138 Potassium 3.1 L 2.9 L 4.3 D Chloride 102 Carbon Dioxide 25 BUN 16 Creatinine 1.24 Glucose 131 H Calcium 9.1 Liver Function 08/09/17 Range/Units 02:08 Total Bilirubin 0.8 (0.2-1.2) mg/dL AST 64 H (5-34) Units/L ALT 45 (0-55) Units/L Alkaline Phosphatase 95 (38-126) Units/L Albumin 3.9 (3.5-5.0) g/dL - ABG Interpretation ABG results: PT/INR, D-dimer PT 11.2 Seconds (9.4-12.1) 08/08/17 05:40 - Impressions Impressions Chest X-Ray 08/09/17 01:56 IMPRESSION: Questionable density in the right lung base with pleural thickening which could be fluid. Follow up to resolution is suggested. CT could better evaluate lung parenchyma if indicated. D/ / 08/09/2017 08:45:45 Ignacia Mohr MD / iva Interpreting Provider: Ignacia Mohr MD Consult Discharge Plan - Plan Referrals: NONE,PCP [Primary Care Provider] -
[2017-08-09] MEDS: Divalproex (24 HR) 250 MG TABLET PO SCH (20:17)
[2017-08-09] MEDS: Gabapentin 400 MG CAPSULE PO SCH (20:18)
[2017-08-10] MEDS: *HR* LORazepam 2 MG/ML VIAL IVP PRN ×4 (00:43→20:26)
[2017-08-10] MEDS: Ipratropium/Albuterol Neb 3 ML IH SCH ×2 (03:56→07:35)
[2017-08-10] MEDS: Famotidine 20 MG/2 ML VIAL IVP SCH (05:52)
--- NOTE | 2017-08-10 06:19 | Electrocardiograph Report ---
[place] [id number] Test Date: 2017-08-08 Pat Name: Lauri Chen Department: 103 Room: [id number] Gender: M [employer]: LIAM : 1955 Requested By: Ghanshyam Barron Order Number: [id number] Reading MD: Red Covington MD Measurements Intervals [place] Rate: 81 P: 41 NC: 149 QRS: -5 QRSD: 78 T: 44 QT: 364 QTc: 402 Interpretive Statements SINUS RHYTHM BASELINE ARTIFACT COMPLICATES ACCURATE INTERPRETATION Electronically Signed On 08-10-2017 6:17:38 EDT by Red Covington MD
[2017-08-10] MEDS: Budesonide/Formoterol 160/4.5 MDI IH SCH ×2 (07:35→22:33)
[2017-08-10] MEDS: Magnesium Oxide 400 MG TABLET PO SCH ×2 (08:08→20:12)
[2017-08-10] MEDS: Gabapentin 400 MG CAPSULE PO SCH ×3 (08:08→21:00)
[2017-08-10] MEDS: amLODIPine 5 MG TABLET PO SCH (08:09)
[2017-08-10] MEDS: Nicotine 21 MG PATCH.TD24 TD SCH (08:09)
[2017-08-10] MEDS: Pantoprazole 40 MG VIAL IVP SCH (10:01)
[2017-08-10] MEDS: SUMAtriptan 6 MG/0.5 ML SQ PRN (15:11)
--- NOTE | 2017-08-10 16:45 | Internal Med Progress Note ---
Date of Encounter: 08/10/17 Time of Encounter: 12:00 - Assessment and plan (1) Alcohol withdrawal Current Visit: No Status: Acute Assessment and plan: Continue to decrease Librium. Continue CIWA. Change to PO vitamins. Qualifiers: Complication of substance-induced condition: uncomplicated Qualified Code(s ): F10.230 - Alcohol dependence with withdrawal, uncomplicated (2) Anemia Current Visit: No Status: Chronic Assessment and plan: H/H relatively stable at this time. Recheck tomorrow. Qualifiers: Anemia type: other cause Other causes of anemia: chronic disease, other Qualified Code(s): D63.8 - Anemia in other chronic diseases classified elsewhere (3) Tobacco abuse Current Visit: No Status: Chronic Assessment and plan: Cessation counselling. (4) Hypokalemia Current Visit: No Status: Resolved Assessment and plan: Recheck in AM. (5) Hypomagnesemia Current Visit: Yes Status: Acute Assessment and plan: Recheck in AM. (6) Hypertension Current Visit: No Status: Chronic Assessment and plan: Continue home meds. Qualifiers: Hypertension type: essential hypertension Qualified Code(s): I10 - Essential (primary) hypertension (7) Schizoaffective disorder, bipolar type without good prognostic features Current Visit: No Status: Chronic Assessment and plan: Continue home meds. - Subjective Interval history: Mr Chen is currently admitted for acute alcohol abuse and withdrawal. He remains moderate to high risk due to potential for worsening resp status. Mr Chen is eating lunch. He is still shaky. No fever or chills. No SOB. Sleeping OK. No GI issues. - Constitutional Vitals: Temp Pulse Resp BP Pulse Ox 97.8 F 102 15 142/93 97 08/10/17 15:00 08/10/17 15:00 08/10/17 15:00 08/10/17 15:00 08/10/17 15:00 General appearance: Present: disheveled, A&O X 3 - Head Head exam: Present: normocephalic - Eye Eye exam: Present: conjuntiva pink - ENT ENT exam: Present: mucous membranes moist - Respiratory Respiratory exam: Present: decreased breath sounds. Absent: rales, rhonchi, wheezes - Cardiovascular Cardiovascular exam: Present: RRR. Absent: tachycardia - GI/Abdominal GI/Abdominal exam: Present: soft. Absent: tenderness - Extremities Exam Extremities exam: Present: warm. Absent: tenderness - Neurological Exam Neurological exam: Present: alert Additional comments: Tremor noted at rest. - Skin Skin exam: Present: warm. Absent: rash Internal Medicine: Result - Labs CBC & Chem 7: 08/09/17 02:08 08/09/17 08:51 - ABG Interpretation ABG results: PT/INR, D-dimer PT 11.2 Seconds (9.4-12.1) 08/08/17 05:40 Consult Discharge Plan - Plan Referrals: NONE,PCP [Primary Care Provider] -
[2017-08-10] MEDS: Divalproex (24 HR) 250 MG TABLET PO SCH (20:10)
[2017-08-10] MEDS: Acetaminophen 325 MG TABLET PO PRN (20:14)
[2017-08-11] MEDS ORDERED: Artificial Tears SOLN 15 ML BOTTLE BOTH EYES PRN (05:27)
[2017-08-11 05:51] LABS: Hematocrit 38.2 % (37.5-50.1); Hemoglobin 11.9 g/dL (12.9-16.9); Mean Corpuscular HGB Conc 31.2 g/dL (31.6-35.5); Mean Corpuscular Hemoglobin 26.7 pg (28.0-33.3); Mean Corpuscular Volume 85.7 fL (83.0-100.0); Mean Platelet Volume 10.3 fL (9.4-12.4); Platelet Count 110 K/mcL (140-400); Red Blood Count 4.46 M/mcL (4.19-5.50); Red Cell Distribution Width 16.5 % (11.5-14.5)
[2017-08-11] MEDS: *HR* LORazepam 2 MG/ML VIAL IVP PRN ×4 (06:12→22:14)
[2017-08-11 06:14] LABS: Alanine Aminotransferase 43 Units/L (0-55); Albumin 3.5 g/dL (3.5-5.0); Albumin/Globulin Ratio 0.8 (1.1-2.2); Alkaline Phosphatase 84 Units/L (38-126); Aspartate Amino Transferase 54 Units/L (5-34); BUN/Creatinine Ratio 18 (6-26); Bilirubin,Total 0.4 mg/dL (0.2-1.2); Blood Urea Nitrogen 16 mg/dL (8-26); Calcium 9.5 mg/dL (8.6-10.8); Carbon Dioxide 19 mEq/L (19-29); Chloride 109 mEq/L (98-109); Globulin 4.4 g/dL (2.4-3.5); Glucose 102 mg/dL (70-99); Osmolality,Calculated 289 (280-300); Sodium 139 mEq/L (136-145); Total Protein 7.9 g/dL (6.0-8.3); eGFR For African Americans > 60 (> 60); eGFR For Non-African Americans > 60 (> 60)
[2017-08-11 06:21] LABS: Potassium 3.9 mEq/L (3.5-4.5)
[2017-08-11] MEDS: Magnesium Oxide 400 MG TABLET PO SCH ×2 (08:22→20:21)
[2017-08-11] MEDS: amLODIPine 5 MG TABLET PO SCH (08:22)
[2017-08-11] MEDS: Gabapentin 400 MG CAPSULE PO SCH ×3 (08:23→20:21)
[2017-08-11] MEDS: Nicotine 21 MG PATCH.TD24 TD SCH (08:23)
[2017-08-11] MEDS: SUMAtriptan 6 MG/0.5 ML SQ PRN ×2 (09:37→17:39)
[2017-08-11] MEDS: Budesonide/Formoterol 160/4.5 MDI IH SCH ×2 (11:20→20:52)
--- NOTE | 2017-08-11 17:58 | Internal Med Progress Note ---
Date of Encounter: 08/11/17 Time of Encounter: 17:55 - Assessment and plan (1) Alcohol withdrawal Current Visit: No Status: Acute Assessment and plan: CIWA 8 will follow protocol Oral vitamins. right upper extremity has swelling and will get US Qualifiers: Complication of substance-induced condition: uncomplicated Qualified Code(s ): F10.230 - Alcohol dependence with withdrawal, uncomplicated (2) Anemia Current Visit: No Status: Chronic Assessment and plan: H/H relatively stable at this time. Recheck tomorrow. 08/11/2017 stable Hb and Hct Qualifiers: Anemia type: other cause Other causes of anemia: chronic disease, other Qualified Code(s): D63.8 - Anemia in other chronic diseases classified elsewhere (3) Hypertension Current Visit: No Status: Chronic Assessment and plan: Continue home meds. Qualifiers: Hypertension type: essential hypertension Qualified Code(s): I10 - Essential (primary) hypertension - Subjective Interval history: seen and examined. chart reviewed. no new complaints except swelling on right arm - Constitutional Vitals: Temp Pulse Resp BP Pulse Ox 98 F 88 18 151/103 96 08/11/17 15:00 08/11/17 15:00 08/11/17 15:00 08/11/17 15:00 08/11/17 15:00 General appearance: Present: disheveled, A&O X 3 - Head Head exam: Present: atraumatic, normocephalic - Eye Eye exam: Present: PERRL, conjuntiva pink, sclera anicteric Pupils: Present: PERRL - Neck Neck exam general surgery: Present: supple, trachea midline. Absent: lymphadenopathy - Respiratory Respiratory exam: Present: CTAB. Absent: accessory muscle use, rales, rhonchi, wheezes - Cardiovascular Cardiovascular exam: Present: RRR, +S1, +S2. Absent: diastolic murmur, gallop, rubs, systolic murmur - GI/Abdominal GI/Abdominal exam: Present: normal bowel sounds, soft, no peritoneal signs. Absent: distended, tenderness - Extremities Exam Extremities exam: Present: warm, radial pulses palpable and symmetrical. Absent : calf tenderness, cyanotic, pedal edema - Neurological Exam Neurological exam: Present: CN II-XII intact, oriented X3, no focal deficits. Absent: pronater drift, facial droop, speech deficit - Skin Skin exam: Present: dry, intact Internal Medicine: Result - Labs CBC & Chem 7: 08/11/17 05:27 08/11/17 05:27 Labs: Short CBC 08/11/17 Range/Units 05:27 WBC 4.3 (4.3-11.1) K/mcL Hgb 11.9 L (12.9-16.9) g/dL Hct 38.2 (37.5-50.1) % Plt Count 110 L (140-400) K/mcL BMP 08/11/17 05:27 Sodium 139 Potassium 3.9 Chloride 109 Carbon Dioxide 19 BUN 16 Creatinine 0.90 Glucose 102 H Calcium 9.5 Liver Function 08/11/17 Range/Units 05:27 Total Bilirubin 0.4 (0.2-1.2) mg/dL AST 54 H (5-34) Units/L ALT 43 (0-55) Units/L Alkaline Phosphatase 84 (38-126) Units/L Albumin 3.5 (3.5-5.0) g/dL - ABG Interpretation ABG results: PT/INR, D-dimer PT 11.2 Seconds (9.4-12.1) 08/08/17 05:40 Consult Discharge Plan - Plan Instructions: Atrial Fibrillation (DC), Pancreatitis (DC), Viral Hepatitis C ( DC), Gastroenteritis (DC), Chronic Obstructive Pulmonary Disease (DC), Sepsis ( DC), Alcohol Intoxication (DC), Alcohol Intoxication (GEN), Abuse of Alcohol (DC ), Abuse of Alcohol (GEN), Chronic Hypertension (DC), Anemia (GEN), Fall Prevention (DC) Referrals: Scott Fairbanks DO [Resident] - (call their office to make an appointment in 1- 2 weeks if any problems call your doctor or go to er ) NONE,PCP [Primary Care Provider] -
[2017-08-11] MEDS: Divalproex (24 HR) 250 MG TABLET PO SCH (20:22)
[2017-08-12 05:14] LABS: Basophils % 0.4 %; Eosinophils # 0.1 K/mcL (0.0-0.6); Hematocrit 38.4 % (37.5-50.1); Immature Granulocytes % 1.2 % (0-4); Lymphocytes # 1.6 K/mcL (0.6-4.6); Mean Corpuscular HGB Conc 31.3 g/dL (31.6-35.5); Mean Corpuscular Volume 86.3 fL (83.0-100.0); Mean Platelet Volume 10.4 fL (9.4-12.4); Monocytes # 0.4 K/mcL (0.0-1.3); Monocytes % 7.7 %; Neutrophils # 3.1 K/mcL (1.6-8.9); Platelet Count 119 K/mcL (140-400); Red Blood Count 4.45 M/mcL (4.19-5.50); Red Cell Distribution Width 16.6 % (11.5-14.5); Segmented Neutrophils % 58.7 %
[2017-08-12 05:37] LABS: Alanine Aminotransferase 53 Units/L (0-55); Albumin 3.5 g/dL (3.5-5.0); Albumin/Globulin Ratio 0.8 (1.1-2.2); Alkaline Phosphatase 89 Units/L (38-126); Aspartate Amino Transferase 60 Units/L (5-34); BUN/Creatinine Ratio 17 (6-26); Bilirubin,Total 0.4 mg/dL (0.2-1.2); Blood Urea Nitrogen 16 mg/dL (8-26); Calcium 9.6 mg/dL (8.6-10.8); Carbon Dioxide 19 mEq/L (19-29); Chloride 107 mEq/L (98-109); Globulin 4.4 g/dL (2.4-3.5); Glucose 131 mg/dL (70-99); Osmolality,Calculated 287 (280-300); Potassium 3.9 mEq/L (3.5-4.5); Sodium 137 mEq/L (136-145); Total Protein 7.9 g/dL (6.0-8.3); eGFR For African Americans > 60 (> 60); eGFR For Non-African Americans > 60 (> 60)
[2017-08-12] MEDS: Budesonide/Formoterol 160/4.5 MDI IH SCH ×2 (07:40→21:42)
[2017-08-12] MEDS: amLODIPine 5 MG TABLET PO SCH (08:40)
[2017-08-12] MEDS: Magnesium Oxide 400 MG TABLET PO SCH ×2 (08:40→22:37)
[2017-08-12] MEDS: Gabapentin 400 MG CAPSULE PO SCH ×3 (08:40→22:37)
[2017-08-12] MEDS: Nicotine 21 MG PATCH.TD24 TD SCH (08:40)
[2017-08-12] MEDS: *HR* LORazepam 2 MG/ML VIAL IVP PRN ×3 (08:42→23:48)
[2017-08-12] MEDS ORDERED: *HR* LORazepam 2 MG/ML VIAL IVP PRN (11:45)
[2017-08-12] MEDS: SUMAtriptan 6 MG/0.5 ML SQ PRN (15:50)
--- NOTE | 2017-08-12 18:17 | Internal Med Progress Note ---
Date of Encounter: 08/12/17 Time of Encounter: 18:13 - Assessment and plan (1) Alcohol withdrawal Current Visit: No Status: Acute Assessment and plan: CIWA 8 will follow protocol Oral vitamins. right upper extremity has swelling and will get US 08/12/2017 Positive superficial basilic vein and cephalic vein mid bicep area. Negative deep vein thrombosis. Patient feels much better as compared to yesterday. Patient still has occasional tremors. Case discussed with hematology Dr. Olguin Updated regarding superficial venous thrombosis. Informed there is no dependent thrombosis. Discussed regarding alcohol habits of the patient and multiple admissions for alcohol withdrawal. As per hematology: His patient has a increased fall risk and is not suitable candidate for complete anticoagulation. Recommended local wound care and aspirin low-dose. Reassess in 2-3 days. Qualifiers: Complication of substance-induced condition: uncomplicated Qualified Code(s ): F10.230 - Alcohol dependence with withdrawal, uncomplicated (2) Anemia Current Visit: No Status: Chronic Assessment and plan: H/H relatively stable at this time. Recheck tomorrow. 08/11/2017 stable Hb and Hct Qualifiers: Anemia type: other cause Other causes of anemia: chronic disease, other Qualified Code(s): D63.8 - Anemia in other chronic diseases classified elsewhere (3) Hypertension Current Visit: No Status: Chronic Assessment and plan: Continue home meds. Qualifiers: Hypertension type: essential hypertension Qualified Code(s): I10 - Essential (primary) hypertension - Subjective Interval history: seen and examined. chart reviewed. no new complaints except swelling on right arm 08/12/2017. Patient seen and examined. Chart reviewed. Patient is comfortably lying in the bed. Patient denies any chest pain, shortness of breath, nausea, vomiting, abdominal pain and diarrhea. - Constitutional Vitals: Temp Pulse Resp BP Pulse Ox 98.3 F 100 18 153/105 97 08/12/17 15:00 08/12/17 15:00 08/12/17 15:00 08/12/17 15:00 08/12/17 15:00 General appearance: Present: disheveled, A&O X 3 - Head Head exam: Present: atraumatic, normocephalic - Eye Eye exam: Present: PERRL, conjuntiva pink, sclera anicteric Pupils: Present: PERRL - Neck Neck exam general surgery: Present: supple, trachea midline. Absent: lymphadenopathy - Respiratory Respiratory exam: Present: CTAB. Absent: accessory muscle use, rales, rhonchi, wheezes - Cardiovascular Cardiovascular exam: Present: RRR, +S1, +S2. Absent: diastolic murmur, gallop, rubs, systolic murmur - GI/Abdominal GI/Abdominal exam: Present: normal bowel sounds, soft, no peritoneal signs. Absent: distended, tenderness - Extremities Exam Extremities exam: Present: warm, radial pulses palpable and symmetrical. Absent : calf tenderness, cyanotic, pedal edema - Neurological Exam Neurological exam: Present: CN II-XII intact, oriented X3, no focal deficits. Absent: pronater drift, facial droop, speech deficit - Skin Skin exam: Present: dry, intact Internal Medicine: Result - Labs CBC & Chem 7: 08/12/17 04:39 08/12/17 04:39 Labs: Short CBC 08/12/17 Range/Units 04:39 WBC 5.2 (4.3-11.1) K/mcL Hgb 12.0 L (12.9-16.9) g/dL Hct 38.4 (37.5-50.1) % Plt Count 119 L (140-400) K/mcL Neutrophils # 3.1 (1.6-8.9) K/mcL BMP 08/12/17 04:39 Sodium 137 Potassium 3.9 Chloride 107 Carbon Dioxide 19 BUN 16 Creatinine 0.95 Glucose 131 H Calcium 9.6 Liver Function 08/12/17 Range/Units 04:39 Total Bilirubin 0.4 (0.2-1.2) mg/dL AST 60 H (5-34) Units/L ALT 53 (0-55) Units/L Alkaline Phosphatase 89 (38-126) Units/L Albumin 3.5 (3.5-5.0) g/dL - ABG Interpretation ABG results: PT/INR, D-dimer PT 11.2 Seconds (9.4-12.1) 08/08/17 05:40 Consult Discharge Plan - Plan Instructions: Atrial Fibrillation (DC), Pancreatitis (DC), Viral Hepatitis C ( DC), Gastroenteritis (DC), Chronic Obstructive Pulmonary Disease (DC), Sepsis ( DC), Alcohol Intoxication (DC), Alcohol Intoxication (GEN), Abuse of Alcohol (DC ), Abuse of Alcohol (GEN), Chronic Hypertension (DC), Anemia (GEN), Fall Prevention (DC) Referrals: Scott Fairbanks DO [Resident] - (call their office to make an appointment in 1- 2 weeks if any problems call your doctor or go to er ) NONE,PCP [Primary Care Provider] -
[2017-08-12] MEDS: Aspirin Enteric Coated 81 MG Tablet PO SCH (22:37)
[2017-08-12] MEDS: Divalproex (24 HR) 250 MG TABLET PO SCH (22:37)
[2017-08-13 05:28] LABS: Alanine Aminotransferase 71 Units/L (0-55); Albumin 3.6 g/dL (3.5-5.0); Albumin/Globulin Ratio 0.8 (1.1-2.2); Alkaline Phosphatase 88 Units/L (38-126); Aspartate Amino Transferase 87 Units/L (5-34); BUN/Creatinine Ratio 13 (6-26); Bilirubin,Total 0.4 mg/dL (0.2-1.2); Blood Urea Nitrogen 13 mg/dL (8-26); Calcium 9.8 mg/dL (8.6-10.8); Carbon Dioxide 21 mEq/L (19-29); Chloride 105 mEq/L (98-109); Globulin 4.3 g/dL (2.4-3.5); Glucose 105 mg/dL (70-99); Osmolality,Calculated 288 (280-300); Sodium 139 mEq/L (136-145); Total Protein 7.9 g/dL (6.0-8.3); eGFR For African Americans > 60 (> 60); eGFR For Non-African Americans > 60 (> 60)
[2017-08-13 05:37] LABS: Potassium 3.9 mEq/L (3.5-4.5)
[2017-08-13 06:09] LABS: Basophils % 0.7 %; Eosinophils # 0.1 K/mcL (0.0-0.6); Eosinophils % 1.5 %; Hematocrit 40.7 % (37.5-50.1); Hemoglobin 12.6 g/dL (12.9-16.9); Immature Granulocytes % 1.7 % (0-4); Immature Platelets 4.6 % (1.1-6.1); Lymphocytes # 1.6 K/mcL (0.6-4.6); Lymphocytes % 29.1 %; Mean Corpuscular Hemoglobin 27.2 pg (28.0-33.3); Mean Corpuscular Volume 87.9 fL (83.0-100.0); Mean Platelet Volume 11.5 fL (9.4-12.4); Monocytes # 0.6 K/mcL (0.0-1.3); Monocytes % 10.8 %; Red Blood Count 4.63 M/mcL (4.19-5.50); Red Cell Distribution Width 16.9 % (11.5-14.5); Segmented Neutrophils % 56.2 %
[2017-08-13 06:13] LABS: Platelet Count 126 K/mcL (140-400)
[2017-08-13 06:14] LABS: Platelet Estimate Decreased (Normal)
[2017-08-13] MEDS: Nicotine 21 MG PATCH.TD24 TD SCH (08:23)
[2017-08-13] MEDS: Magnesium Oxide 400 MG TABLET PO SCH ×2 (08:24→22:48)
[2017-08-13] MEDS: amLODIPine 5 MG TABLET PO SCH (08:24)
[2017-08-13] MEDS: Gabapentin 400 MG CAPSULE PO SCH ×3 (08:24→22:47)
[2017-08-13] MEDS: Aspirin Enteric Coated 81 MG Tablet PO SCH (08:25)
[2017-08-13] MEDS: *HR* LORazepam 2 MG/ML VIAL IVP PRN ×2 (08:30→16:20)
[2017-08-13] MEDS: Budesonide/Formoterol 160/4.5 MDI IH SCH ×2 (10:37→19:37)
--- NOTE | 2017-08-13 18:15 | Internal Med Progress Note ---
Date of Encounter: 08/13/17 Time of Encounter: 18:13 - Assessment and plan (1) Alcohol withdrawal Current Visit: No Status: Acute Assessment and plan: CIWA 8 will follow protocol Oral vitamins. right upper extremity has swelling and will get US 08/12/2017 Positive superficial basilic vein and cephalic vein mid bicep area. Negative deep vein thrombosis. Patient feels much better as compared to yesterday. Patient still has occasional tremors. Case discussed with hematology Dr. Olguin Updated regarding superficial venous thrombosis. Informed there is no dependent thrombosis. Discussed regarding alcohol habits of the patient and multiple admissions for alcohol withdrawal. As per hematology: His patient has a increased fall risk and is not suitable candidate for complete anticoagulation. Recommended local wound care and aspirin low-dose. Reassess in 2-3 days. 08/13/2017. Right arm swelling is getting better. No new secondary changes. Patient is feeling better Patient is afebrile. We will watch him closely. Plan: Likely home tomorrow. Qualifiers: Complication of substance-induced condition: uncomplicated Qualified Code(s ): F10.230 - Alcohol dependence with withdrawal, uncomplicated (2) Anemia Current Visit: No Status: Chronic Assessment and plan: H/H relatively stable at this time. Recheck tomorrow. 08/11/2017 stable Hb and Hct Qualifiers: Anemia type: other cause Other causes of anemia: chronic disease, other Qualified Code(s): D63.8 - Anemia in other chronic diseases classified elsewhere (3) Hypertension Current Visit: No Status: Chronic Assessment and plan: Continue home meds. Qualifiers: Hypertension type: essential hypertension Qualified Code(s): I10 - Essential (primary) hypertension - Subjective Interval history: seen and examined. chart reviewed. no new complaints except swelling on right arm 08/12/2017. Patient seen and examined. Chart reviewed. Patient is comfortably lying in the bed. Patient denies any chest pain, shortness of breath, nausea, vomiting, abdominal pain and diarrhea. 08/13/2017. Patient seen and examined. Chart reviewed. Patient is comfortably lying in bed. Patient denies chest pain, shortness of breath, nausea, vomiting, abdominal pain and diarrhea. - Constitutional Vitals: Temp Pulse Resp BP Pulse Ox 97.6 F 99 18 129/92 97 08/13/17 15:50 08/13/17 15:50 08/13/17 15:50 08/13/17 15:50 08/13/17 15:50 General appearance: Present: disheveled, A&O X 3 - Head Head exam: Present: atraumatic, normocephalic - Eye Eye exam: Present: PERRL, conjuntiva pink, sclera anicteric Pupils: Present: PERRL - Neck Neck exam general surgery: Present: supple, trachea midline. Absent: lymphadenopathy - Respiratory Respiratory exam: Present: CTAB. Absent: accessory muscle use, rales, rhonchi, wheezes - Cardiovascular Cardiovascular exam: Present: RRR, +S1, +S2. Absent: diastolic murmur, gallop, rubs, systolic murmur - GI/Abdominal GI/Abdominal exam: Present: normal bowel sounds, soft, no peritoneal signs. Absent: distended, tenderness - Extremities Exam Extremities exam: Present: warm, radial pulses palpable and symmetrical. Absent : calf tenderness, cyanotic, pedal edema - Neurological Exam Neurological exam: Present: CN II-XII intact, oriented X3, no focal deficits. Absent: pronater drift, facial droop, speech deficit - Skin Skin exam: Present: dry, intact Internal Medicine: Result - Labs CBC & Chem 7: 08/13/17 03:49 08/13/17 03:49 Labs: Short CBC 08/13/17 Range/Units 03:49 WBC 5.4 (4.3-11.1) K/mcL Hgb 12.6 L (12.9-16.9) g/dL Hct 40.7 (37.5-50.1) % Plt Count 126 L (140-400) K/mcL Neutrophils # 3.0 (1.6-8.9) K/mcL BMP 08/13/17 03:49 Sodium 139 Potassium 3.9 Chloride 105 Carbon Dioxide 21 BUN 13 Creatinine 1.01 Glucose 105 H Calcium 9.8 Liver Function 08/13/17 Range/Units 03:49 Total Bilirubin 0.4 (0.2-1.2) mg/dL AST 87 H (5-34) Units/L ALT 71 H (0-55) Units/L Alkaline Phosphatase 88 (38-126) Units/L Albumin 3.6 (3.5-5.0) g/dL - ABG Interpretation ABG results: PT/INR, D-dimer PT 11.2 Seconds (9.4-12.1) 08/08/17 05:40 Consult Discharge Plan - Plan Instructions: Atrial Fibrillation (DC), Pancreatitis (DC), Viral Hepatitis C ( DC), Gastroenteritis (DC), Chronic Obstructive Pulmonary Disease (DC), Sepsis ( DC), Alcohol Intoxication (DC), Alcohol Intoxication (GEN), Abuse of Alcohol (DC ), Abuse of Alcohol (GEN), Chronic Hypertension (DC), Anemia (GEN), Fall Prevention (DC) Referrals: Scott Fairbanks DO [Resident] - (call their office to make an appointment in 1- 2 weeks if any problems call your doctor or go to er ) NONE,PCP [Primary Care Provider] -
[2017-08-13] MEDS: Divalproex (24 HR) 250 MG TABLET PO SCH (22:48)
[2017-08-14] MEDS: Acetaminophen 325 MG TABLET PO PRN ×3 (05:37→22:15)
[2017-08-14] MEDS: amLODIPine 5 MG TABLET PO SCH (08:30)
[2017-08-14] MEDS: Aspirin Enteric Coated 81 MG Tablet PO SCH (08:30)
[2017-08-14] MEDS: Magnesium Oxide 400 MG TABLET PO SCH ×2 (08:30→22:16)
[2017-08-14] MEDS: Nicotine 21 MG PATCH.TD24 TD SCH (08:30)
[2017-08-14] MEDS: Gabapentin 400 MG CAPSULE PO SCH ×3 (08:30→22:16)
[2017-08-14] MEDS: Budesonide/Formoterol 160/4.5 MDI IH SCH ×2 (12:10→20:15)
--- NOTE | 2017-08-14 17:40 | Internal Med Progress Note ---
Date of Encounter: 08/14/17 Time of Encounter: 17:38 - Assessment and plan (1) Alcohol withdrawal Current Visit: No Status: Acute Assessment and plan: CIWA 8 will follow protocol Oral vitamins. right upper extremity has swelling and will get US 08/12/2017 Positive superficial basilic vein and cephalic vein mid bicep area. Negative deep vein thrombosis. Patient feels much better as compared to yesterday. Patient still has occasional tremors. Case discussed with hematology Dr. Olguin Updated regarding superficial venous thrombosis. Informed there is no dependent thrombosis. Discussed regarding alcohol habits of the patient and multiple admissions for alcohol withdrawal. As per hematology: His patient has a increased fall risk and is not suitable candidate for complete anticoagulation. Recommended local wound care and aspirin low-dose. Reassess in 2-3 days. 08/13/2017. Right arm swelling is getting better. No new secondary changes. Patient is feeling better Patient is afebrile. We will watch him closely. Plan: Likely home tomorrow. 08/14/2017. Patient is ready to go home. Patient does not want to go home. We will talk to him again tomorrow. Qualifiers: Complication of substance-induced condition: uncomplicated Qualified Code(s ): F10.230 - Alcohol dependence with withdrawal, uncomplicated (2) Anemia Current Visit: No Status: Chronic Assessment and plan: H/H relatively stable at this time. Recheck tomorrow. 08/11/2017 stable Hb and Hct Qualifiers: Anemia type: other cause Other causes of anemia: chronic disease, other Qualified Code(s): D63.8 - Anemia in other chronic diseases classified elsewhere (3) Hypertension Current Visit: No Status: Chronic Assessment and plan: Continue home meds. Qualifiers: Hypertension type: essential hypertension Qualified Code(s): I10 - Essential (primary) hypertension - Subjective Interval history: seen and examined. chart reviewed. no new complaints except swelling on right arm 08/12/2017. Patient seen and examined. Chart reviewed. Patient is comfortably lying in the bed. Patient denies any chest pain, shortness of breath, nausea, vomiting, abdominal pain and diarrhea. 08/13/2017. Patient seen and examined. Chart reviewed. Patient is comfortably lying in bed. Patient denies chest pain, shortness of breath, nausea, vomiting, abdominal pain and diarrhea. 08/14/2017. patient seen and examined. Chart reviewed. Patient is comfortably walking around the unit. Patient denies any complaints. Patient does not want to go home. - Constitutional Vitals: Temp Pulse Resp BP Pulse Ox 97.9 F 94 18 143/95 97 08/14/17 08:24 08/14/17 08:24 08/14/17 12:10 08/14/17 08:24 08/14/17 12:10 General appearance: Present: disheveled, A&O X 3 - Head Head exam: Present: atraumatic, normocephalic - Eye Eye exam: Present: PERRL, conjuntiva pink, sclera anicteric Pupils: Present: PERRL - Neck Neck exam general surgery: Present: supple, trachea midline. Absent: lymphadenopathy - Respiratory Respiratory exam: Present: CTAB. Absent: accessory muscle use, rales, rhonchi, wheezes - Cardiovascular Cardiovascular exam: Present: RRR, +S1, +S2. Absent: diastolic murmur, gallop, rubs, systolic murmur - GI/Abdominal GI/Abdominal exam: Present: normal bowel sounds, soft, no peritoneal signs. Absent: distended, tenderness - Extremities Exam Extremities exam: Present: warm, radial pulses palpable and symmetrical. Absent : calf tenderness, cyanotic, pedal edema - Neurological Exam Neurological exam: Present: CN II-XII intact, oriented X3, no focal deficits. Absent: pronater drift, facial droop, speech deficit - Skin Skin exam: Present: dry, intact Internal Medicine: Result - Labs CBC & Chem 7: 08/13/17 03:49 08/13/17 03:49 - ABG Interpretation ABG results: PT/INR, D-dimer PT 11.2 Seconds (9.4-12.1) 08/08/17 05:40 Consult Discharge Plan - Plan Instructions: Atrial Fibrillation (DC), Pancreatitis (DC), Viral Hepatitis C ( DC), Gastroenteritis (DC), Chronic Obstructive Pulmonary Disease (DC), Sepsis ( DC), Alcohol Intoxication (DC), Alcohol Intoxication (GEN), Abuse of Alcohol (DC ), Abuse of Alcohol (GEN), Chronic Hypertension (DC), Anemia (GEN), Fall Prevention (DC) Referrals: Scott Fairbanks DO [Resident] - (call their office to make an appointment in 1- 2 weeks if any problems call your doctor or go to er ) NONE,PCP [Primary Care Provider] -
[2017-08-14] MEDS ORDERED: *HR* LORazepam 0.5 MG TABLET PO ONE (21:23)
[2017-08-14] MEDS: Divalproex (24 HR) 250 MG TABLET PO SCH (22:16)
[2017-08-15] MEDS: Budesonide/Formoterol 160/4.5 MDI IH SCH ×2 (08:28→20:02)
[2017-08-15] MEDS: Aspirin Enteric Coated 81 MG Tablet PO SCH (10:09)
[2017-08-15] MEDS: Gabapentin 400 MG CAPSULE PO SCH ×3 (10:09→20:28)
[2017-08-15] MEDS: Magnesium Oxide 400 MG TABLET PO SCH ×2 (10:09→20:28)
[2017-08-15] MEDS: amLODIPine 5 MG TABLET PO SCH (10:11)
[2017-08-15] MEDS: Nicotine 21 MG PATCH.TD24 TD SCH (10:11)
[2017-08-15] MEDS: Acetaminophen 325 MG TABLET PO PRN ×2 (10:16→16:25)
[2017-08-15] MEDS ORDERED: *HR* LORazepam 0.5 MG TABLET PO ONE (15:05)
--- NOTE | 2017-08-15 18:00 | Internal Med Progress Note ---
Date of Encounter: 08/15/17 Time of Encounter: 17:58 - Assessment and plan (1) Alcohol withdrawal Current Visit: No Status: Acute Assessment and plan: CIWA 8 will follow protocol Oral vitamins. right upper extremity has swelling and will get US 08/12/2017 Positive superficial basilic vein and cephalic vein mid bicep area. Negative deep vein thrombosis. Patient feels much better as compared to yesterday. Patient still has occasional tremors. Case discussed with hematology Dr. Olguin Updated regarding superficial venous thrombosis. Informed there is no dependent thrombosis. Discussed regarding alcohol habits of the patient and multiple admissions for alcohol withdrawal. As per hematology: His patient has a increased fall risk and is not suitable candidate for complete anticoagulation. Recommended local wound care and aspirin low-dose. Reassess in 2-3 days. 08/13/2017. Right arm swelling is getting better. No new secondary changes. Patient is feeling better Patient is afebrile. We will watch him closely. Plan: Likely home tomorrow. 08/14/2017. Patient is ready to go home. Patient does not want to go home. We will talk to him again tomorrow. 08/15/2017. Patient is medically stable and he is stable enough to go home. Patient walks around the unit. Patient is not keen to go home. Patient claims that he would like to stay under 1 or 2 days more. Qualifiers: Complication of substance-induced condition: uncomplicated Qualified Code(s ): F10.230 - Alcohol dependence with withdrawal, uncomplicated (2) Anemia Current Visit: No Status: Chronic Assessment and plan: H/H relatively stable at this time. Recheck tomorrow. 08/11/2017 stable Hb and Hct Qualifiers: Anemia type: other cause Other causes of anemia: chronic disease, other Qualified Code(s): D63.8 - Anemia in other chronic diseases classified elsewhere (3) Hypertension Current Visit: No Status: Chronic Assessment and plan: Continue home meds. Qualifiers: Hypertension type: essential hypertension Qualified Code(s): I10 - Essential (primary) hypertension - Subjective Interval history: seen and examined. chart reviewed. no new complaints except swelling on right arm 08/12/2017. Patient seen and examined. Chart reviewed. Patient is comfortably lying in the bed. Patient denies any chest pain, shortness of breath, nausea, vomiting, abdominal pain and diarrhea. 08/13/2017. Patient seen and examined. Chart reviewed. Patient is comfortably lying in bed. Patient denies chest pain, shortness of breath, nausea, vomiting, abdominal pain and diarrhea. 08/14/2017. patient seen and examined. Chart reviewed. Patient is comfortably walking around the unit. Patient denies any complaints. Patient does not want to go home. 08/07/2017. Patient seen and examined. Chart reviewed. Patient is comfortably walking around the unit he does not have any complaints. - Constitutional Vitals: Temp Pulse Resp BP Pulse Ox 97.7 F 91 15 142/88 98 08/15/17 16:19 08/15/17 16:19 08/15/17 16:19 08/15/17 16:19 08/15/17 16:19 General appearance: Present: disheveled, A&O X 3 - Head Head exam: Present: atraumatic, normocephalic - Eye Eye exam: Present: PERRL, conjuntiva pink, sclera anicteric Pupils: Present: PERRL - Neck Neck exam general surgery: Present: supple, trachea midline. Absent: lymphadenopathy - Respiratory Respiratory exam: Present: CTAB. Absent: accessory muscle use, rales, rhonchi, wheezes - Cardiovascular Cardiovascular exam: Present: RRR, +S1, +S2. Absent: diastolic murmur, gallop, rubs, systolic murmur - GI/Abdominal GI/Abdominal exam: Present: normal bowel sounds, soft, no peritoneal signs. Absent: distended, tenderness - Extremities Exam Extremities exam: Present: warm, radial pulses palpable and symmetrical. Absent : calf tenderness, cyanotic, pedal edema - Neurological Exam Neurological exam: Present: CN II-XII intact, oriented X3, no focal deficits. Absent: pronater drift, facial droop, speech deficit - Skin Skin exam: Present: dry, intact Internal Medicine: Result - Labs CBC & Chem 7: 08/13/17 03:49 08/13/17 03:49 - ABG Interpretation ABG results: PT/INR, D-dimer PT 11.2 Seconds (9.4-12.1) 08/08/17 05:40 Consult Discharge Plan - Plan Instructions: Atrial Fibrillation (DC), Pancreatitis (DC), Viral Hepatitis C ( DC), Gastroenteritis (DC), Chronic Obstructive Pulmonary Disease (DC), Sepsis ( DC), Alcohol Intoxication (DC), Alcohol Intoxication (GEN), Abuse of Alcohol (DC ), Abuse of Alcohol (GEN), Chronic Hypertension (DC), Anemia (GEN), Fall Prevention (DC) Referrals: Scott Fairbanks DO [Resident] - (call their office to make an appointment in 1- 2 weeks if any problems call your doctor or go to er ) NONE,PCP [Primary Care Provider] -
[2017-08-15] MEDS: Divalproex (24 HR) 250 MG TABLET PO SCH (20:28)
[2017-08-16 03:23] LABS: Alanine Aminotransferase 104 Units/L (0-55); Albumin 3.4 g/dL (3.5-5.0); Albumin/Globulin Ratio 0.9 (1.1-2.2); Alkaline Phosphatase 91 Units/L (38-126); Aspartate Amino Transferase 86 Units/L (5-34); BUN/Creatinine Ratio 13 (6-26); Bilirubin,Total 0.3 mg/dL (0.2-1.2); Blood Urea Nitrogen 13 mg/dL (8-26); Calcium 9.1 mg/dL (8.6-10.8); Carbon Dioxide 23 mEq/L (19-29); Chloride 108 mEq/L (98-109); Globulin 3.9 g/dL (2.4-3.5); Glucose 184 mg/dL (70-99); Osmolality,Calculated 293 (280-300); Potassium 4.1 mEq/L (3.5-4.5); Sodium 139 mEq/L (136-145); Total Protein 7.3 g/dL (6.0-8.3); eGFR For African Americans > 60 (> 60); eGFR For Non-African Americans > 60 (> 60)
[2017-08-16 03:26] LABS: Basophils % 0.5 %; Eosinophils # 0.1 K/mcL (0.0-0.6); Eosinophils % 1.7 %; Immature Granulocytes % 1.7 % (0-4); Lymphocytes # 1.3 K/mcL (0.6-4.6); Mean Corpuscular HGB Conc 30.6 g/dL (31.6-35.5); Mean Corpuscular Hemoglobin 26.6 pg (28.0-33.3); Mean Platelet Volume 10.8 fL (9.4-12.4); Monocytes # 0.6 K/mcL (0.0-1.3); Monocytes % 9.8 %; Neutrophils # 3.7 K/mcL (1.6-8.9); Platelet Count 158 K/mcL (140-400); Red Blood Count 4.14 M/mcL (4.19-5.50); Red Cell Distribution Width 16.5 % (11.5-14.5); Segmented Neutrophils % 63.3 %
[2017-08-16] MEDS: Gabapentin 400 MG CAPSULE PO SCH ×3 (08:14→20:30)
[2017-08-16] MEDS: Magnesium Oxide 400 MG TABLET PO SCH ×2 (08:14→20:30)
[2017-08-16] MEDS: Nicotine 21 MG PATCH.TD24 TD SCH (08:15)
[2017-08-16] MEDS: Aspirin Enteric Coated 81 MG Tablet PO SCH (08:15)
[2017-08-16] MEDS: amLODIPine 5 MG TABLET PO SCH (08:15)
[2017-08-16] MEDS: Budesonide/Formoterol 160/4.5 MDI IH SCH ×2 (08:37→20:26)
--- NOTE | 2017-08-16 17:35 | Internal Med Progress Note ---
Date of Encounter: 08/16/17 Time of Encounter: 17:33 - Assessment and plan (1) Alcohol withdrawal Current Visit: No Status: Acute Assessment and plan: CIWA 8 will follow protocol Oral vitamins. right upper extremity has swelling and will get US 08/12/2017 Positive superficial basilic vein and cephalic vein mid bicep area. Negative deep vein thrombosis. Patient feels much better as compared to yesterday. Patient still has occasional tremors. Case discussed with hematology Dr. Olguin Updated regarding superficial venous thrombosis. Informed there is no dependent thrombosis. Discussed regarding alcohol habits of the patient and multiple admissions for alcohol withdrawal. As per hematology: His patient has a increased fall risk and is not suitable candidate for complete anticoagulation. Recommended local wound care and aspirin low-dose. Reassess in 2-3 days. 08/13/2017. Right arm swelling is getting better. No new secondary changes. Patient is feeling better Patient is afebrile. We will watch him closely. Plan: Likely home tomorrow. 08/14/2017. Patient is ready to go home. Patient does not want to go home. We will talk to him again tomorrow. 08/15/2017. Patient is medically stable and he is stable enough to go home. Patient walks around the unit. Patient is not keen to go home. Patient claims that he would like to stay under 1 or 2 days more. 08/16/2017 Patient is medically stable. Patient is not keen to go home today. Patient claims that his right is not here today. We will try to get case management social worker involved tomorrow. Qualifiers: Complication of substance-induced condition: uncomplicated Qualified Code(s ): F10.230 - Alcohol dependence with withdrawal, uncomplicated (2) Anemia Current Visit: No Status: Chronic Assessment and plan: H/H relatively stable at this time. Recheck tomorrow. 08/11/2017 stable Hb and Hct Qualifiers: Anemia type: other cause Other causes of anemia: chronic disease, other Qualified Code(s): D63.8 - Anemia in other chronic diseases classified elsewhere (3) Hypertension Current Visit: No Status: Chronic Assessment and plan: Continue home meds. Qualifiers: Hypertension type: essential hypertension Qualified Code(s): I10 - Essential (primary) hypertension - Subjective Interval history: seen and examined. chart reviewed. no new complaints except swelling on right arm 08/12/2017. Patient seen and examined. Chart reviewed. Patient is comfortably lying in the bed. Patient denies any chest pain, shortness of breath, nausea, vomiting, abdominal pain and diarrhea. 08/13/2017. Patient seen and examined. Chart reviewed. Patient is comfortably lying in bed. Patient denies chest pain, shortness of breath, nausea, vomiting, abdominal pain and diarrhea. 08/14/2017. patient seen and examined. Chart reviewed. Patient is comfortably walking around the unit. Patient denies any complaints. Patient does not want to go home. 08/15/2017. Patient seen and examined. Chart reviewed. Patient is comfortably walking around the unit he does not have any complaints. 08/16/2017 Patient seen and examined. Chart reviewed. Patient is comfortable in walking around the unit. Patient does not have any complaints. Patient does not want to go home today. Patient claims that his right is not here today. - Constitutional Vitals: Temp Pulse Resp BP Pulse Ox 98.2 F 91 18 136/96 98 08/16/17 15:00 08/16/17 15:00 08/16/17 15:00 08/16/17 15:00 08/16/17 15:00 General appearance: Present: disheveled, A&O X 3 - Head Head exam: Present: atraumatic, normocephalic - Eye Eye exam: Present: PERRL, conjuntiva pink, sclera anicteric Pupils: Present: PERRL - Neck Neck exam general surgery: Present: supple, trachea midline. Absent: lymphadenopathy - Respiratory Respiratory exam: Present: CTAB. Absent: accessory muscle use, rales, rhonchi, wheezes - Cardiovascular Cardiovascular exam: Present: RRR, +S1, +S2. Absent: diastolic murmur, gallop, rubs, systolic murmur - GI/Abdominal GI/Abdominal exam: Present: normal bowel sounds, soft, no peritoneal signs. Absent: distended, tenderness - Extremities Exam Extremities exam: Present: warm, radial pulses palpable and symmetrical. Absent : calf tenderness, cyanotic, pedal edema - Neurological Exam Neurological exam: Present: CN II-XII intact, oriented X3, no focal deficits. Absent: pronater drift, facial droop, speech deficit - Skin Skin exam: Present: dry, intact Internal Medicine: Result - Labs CBC & Chem 7: 08/16/17 02:39 08/16/17 02:39 Labs: Short CBC 08/16/17 Range/Units 02:39 WBC 5.8 (4.3-11.1) K/mcL Hgb 11.0 L D (12.9-16.9) g/dL Hct 36.0 L (37.5-50.1) % Plt Count 158 (140-400) K/mcL Neutrophils # 3.7 (1.6-8.9) K/mcL BMP 08/16/17 02:39 Sodium 139 Potassium 4.1 Chloride 108 Carbon Dioxide 23 BUN 13 Creatinine 1.01 Glucose 184 H Calcium 9.1 Liver Function 08/16/17 Range/Units 02:39 Total Bilirubin 0.3 (0.2-1.2) mg/dL AST 86 H (5-34) Units/L ALT 104 H (0-55) Units/L Alkaline Phosphatase 91 (38-126) Units/L Albumin 3.4 L (3.5-5.0) g/dL - ABG Interpretation ABG results: PT/INR, D-dimer PT 11.2 Seconds (9.4-12.1) 08/08/17 05:40 Consult Discharge Plan - Plan Instructions: Atrial Fibrillation (DC), Pancreatitis (DC), Viral Hepatitis C ( DC), Gastroenteritis (DC), Chronic Obstructive Pulmonary Disease (DC), Sepsis ( DC), Alcohol Intoxication (DC), Alcohol Intoxication (GEN), Abuse of Alcohol (DC ), Abuse of Alcohol (GEN), Chronic Hypertension (DC), Anemia (GEN), Fall Prevention (DC) Referrals: Scott Fairbanks DO [Resident] - (call their office to make an appointment in 1- 2 weeks if any problems call your doctor or go to er ) NONE,PCP [Primary Care Provider] -
[2017-08-16] MEDS: Acetaminophen 325 MG TABLET PO PRN (18:10)
[2017-08-16] MEDS: Divalproex (24 HR) 250 MG TABLET PO SCH (20:30)
[2017-08-17 04:16] LABS: Basophils # 0.1 K/mcL (0.0-0.2); Basophils % 0.9 %; Eosinophils # 0.1 K/mcL (0.0-0.6); Eosinophils % 1.7 %; Hematocrit 40.4 % (37.5-50.1); Hemoglobin 12.3 g/dL (12.9-16.9); Immature Granulocytes % 2.4 % (0-4); Lymphocytes # 1.3 K/mcL (0.6-4.6); Lymphocytes % 23.6 %; Mean Corpuscular HGB Conc 30.4 g/dL (31.6-35.5); Mean Corpuscular Hemoglobin 26.6 pg (28.0-33.3); Mean Corpuscular Volume 87.3 fL (83.0-100.0); Mean Platelet Volume 11.1 fL (9.4-12.4); Monocytes # 0.6 K/mcL (0.0-1.3); Monocytes % 11.2 %; Neutrophils # 3.2 K/mcL (1.6-8.9); Platelet Count 189 K/mcL (140-400); Red Blood Count 4.63 M/mcL (4.19-5.50); Red Cell Distribution Width 16.4 % (11.5-14.5); Segmented Neutrophils % 60.2 %
[2017-08-17 04:33] LABS: Alanine Aminotransferase 123 Units/L (0-55); Albumin 3.6 g/dL (3.5-5.0); Albumin/Globulin Ratio 0.9 (1.1-2.2); Alkaline Phosphatase 94 Units/L (38-126); Aspartate Amino Transferase 100 Units/L (5-34); BUN/Creatinine Ratio 17 (6-26); Bilirubin,Total 0.2 mg/dL (0.2-1.2); Blood Urea Nitrogen 17 mg/dL (8-26); Calcium 9.7 mg/dL (8.6-10.8); Carbon Dioxide 24 mEq/L (19-29); Chloride 104 mEq/L (98-109); Globulin 4.2 g/dL (2.4-3.5); Glucose 178 mg/dL (70-99); Osmolality,Calculated 292 (280-300); Potassium 4.1 mEq/L (3.5-4.5); Sodium 138 mEq/L (136-145); Total Protein 7.8 g/dL (6.0-8.3); eGFR For African Americans > 60 (> 60); eGFR For Non-African Americans > 60 (> 60)
[2017-08-17] MEDS: Budesonide/Formoterol 160/4.5 MDI IH SCH (07:45)
[2017-08-17] MEDS: Aspirin Enteric Coated 81 MG Tablet PO SCH (08:30)
[2017-08-17] MEDS: amLODIPine 5 MG TABLET PO SCH (08:30)
[2017-08-17] MEDS: Magnesium Oxide 400 MG TABLET PO SCH (08:30)
[2017-08-17] MEDS: Gabapentin 400 MG CAPSULE PO SCH (08:30)
[2017-08-17] MEDS: Nicotine 21 MG PATCH.TD24 TD SCH (08:31)
[2017-08-17] MEDS: Acetaminophen 325 MG TABLET PO PRN (08:32)
[2017-08-17 11:27] VITALS: BP 135/86
--- NOTE | 2017-08-17 12:31 | Discharge Summary ---
Date of Encounter: 08/17/17 Time of Encounter: 12:27 - Discharge Diagnosis (1) Alcohol withdrawal Priority: Primary Status: Acute Qualifiers: Complication of substance-induced condition: uncomplicated Qualified Code(s ): F10.230 - Alcohol dependence with withdrawal, uncomplicated (2) Anemia Priority: Secondary Status: Chronic Qualifiers: Anemia type: other cause Other causes of anemia: chronic disease, other Qualified Code(s): D63.8 - Anemia in other chronic diseases classified elsewhere (3) Hypertension Priority: Secondary Status: Chronic Qualifiers: Hypertension type: essential hypertension Qualified Code(s): I10 - Essential (primary) hypertension - Discharge Medications Prescriptions: Amitriptyline [Elavil] 25 mg PO HS #30 tablet Aspirin Enteric Coated [Aspirin EC] 81 mg PO DAILY #30 tablet. Gabapentin [Neurontin] 400 mg PO TID #30 capsule Home Medications: Albuterol Sulfate [Proair Hfa] 2 puff IH Q4H PRN 12/21/16 [History] Quetiapine Fumarate [Seroquel] 300 mg PO HS 12/21/16 [History] SUMAtriptan succinate [Imitrex] 6 mg SQ AD PRN 12/21/16 [History] Lipase/Protease/Amylase [Ananya Kern 12,000 Units Capsule] 3 cap PO TIDWM 03/15/17 [History] Omeprazole [PriLOSEC] 20 mg PO DAILY 03/15/17 [History] Amlodipine Besylate 10 mg PO DAILY 03/27/17 [History] Budesonide/Formoterol 160/4.5 [Symbicort 160/4.5] 1 puff IH BIDR 03/27/17 [ History] Desonide [Tridesilon] 1 appl TP BID PRN 03/27/17 [History] Folic Acid 2 mg PO DAILY 03/27/17 [History] Hydrocortisone 1% CREAM [Cortaid] 1 appl TP BID PRN 03/27/17 [History] Magnesium Oxide [Mag-Ox] 400 mg PO BID 03/27/17 [History] Thiamine (B-1) [Vitamin B-1] 100 mg PO BID 03/27/17 [History] Cholecalciferol (Vitamin D3) [Vitamin D3] 1,000 unit PO DAILY 04/23/17 [History] Cyanocobalamin (Vitamin B-12) [Vitamin B-12] 500 mcg PO DAILY 06/03/17 [History] Divalproex (24 HR) [Depakote ER (24 HR)] 1,250 mg PO HS 06/03/17 [History] Ketoconazole Shampoo [Nizoral Shampoo] 1 appl TP 2XW 06/03/17 [History] Lactobacillus [Culturelle] 1 cap PO BID 06/03/17 [History] traZODone [TraZODone] 50 mg PO TID 06/29/17 [History] Amitriptyline [Elavil] 25 mg PO HS #30 tablet 08/17/17 [Rx] Aspirin Enteric Coated [Aspirin EC] 81 mg PO DAILY #30 tablet.dr 08/17/17 [Rx] Gabapentin [Neurontin] 400 mg PO TID #30 capsule 08/17/17 [Rx] Nicotine Patch [Nicoderm] 21 mg TD DAILY patch.td24 08/17/17 [Rx] Allergies/Adverse Reactions: 3 Allergy/AdvReac Type Severity Reaction Status Date / Time Buspirone [From BuSpar] AdvReac See Verified 08/08/17 05:06 Comments tramadol AdvReac See Verified 08/08/17 05:06 Comments Date of admission: 08/08/17 11:07 Primary care physician: PCP NONE Consults: 08/08/17 15:55 Consult to Nutrition [CONS] Routine Comment: Consulting Provider: NUTRITION Reason for Dietary Consult: MST Score Discharging clinician: Ashwin Pennington - Patient Status Disposition: Home, Self-Care Condition: Fair Functional capacity at discharge: independent ambulation Overall status at discharge: patient is progressing back to baseline - Discharge Instructions Instructions: Atrial Fibrillation (DC), Pancreatitis (DC), Viral Hepatitis C ( DC), Gastroenteritis (DC), Chronic Obstructive Pulmonary Disease (DC), Sepsis ( DC), Alcohol Intoxication (DC), Alcohol Intoxication (GEN), Abuse of Alcohol (DC ), Abuse of Alcohol (GEN), Chronic Hypertension (DC), Anemia (GEN), Fall Prevention (DC) Follow Up With: Caroline Barber CNP [Advanced Practice Nurse] - 09/04/17 9:30 am - Diet and Activity Activity: as per physical therapy Diet: low fat, low cholesterol Interval History: Mr. Olvera is a 62 year old male with history of alcoholism, aspiration pneumonia and empyema who presented to the emergency department for alcohol withdrawal symptoms. Mr. olvera reports that he stopped drinking on 3 days ago because he ran out of money to buy alcohol. Yesterday he started experiencing increasing tremors, palpitations and anxiety which have progressively got worse and today his symptoms became severe and he decided to present to the hospital. He also reports bi-temporal migraine headache which is severe, with no aggravating or alleviating factors. Denies nausea vomiting diarrhea and chest pain. Denies cough or shortness of breath. Denies fever. Hospital course: Patient had a ETOH withdrawal. Patient was managed as per [facility] protocol. Patient was started on Librium/to lorazepam. Patient tolerated this treatment very well. Patient everyday was giving some excuse not to go home. Finally today patient told us that he is willing to go home. Patient had a multiple admissions in last 6 months for alcohol withdrawal. Plan: Patient can go home today. Follow-up with the PCP for anemia workup. We did change his medication ie amitriptyline and gabapentin. Reason for change in medication is because patient was too drowsy during the Admission/hospitalization He verbalized understanding of the change of the medication All questions answered. - Time Spent with Patient Total time spent providing and/or coordinating discharge services: - Constitutional Vitals: Temp Pulse Resp BP Pulse Ox 97.8 F 85 18 135/86 97 08/17/17 11:26 08/17/17 11:26 08/17/17 11:26 08/17/17 11:26 08/17/17 11:26 General appearance: Present: disheveled, A&O X 3 - Head Head exam: Present: atraumatic, normocephalic - Eye Eye exam: Present: PERRL, conjuntiva pink, sclera anicteric Pupils: Present: PERRL - Neck Neck exam general surgery: Present: supple, trachea midline. Absent: lymphadenopathy - Respiratory Respiratory exam: Present: CTAB. Absent: accessory muscle use, rales, rhonchi, wheezes - Cardiovascular Cardiovascular exam: Present: RRR, +S1, +S2. Absent: diastolic murmur, gallop, rubs, systolic murmur - GI/Abdominal GI/Abdominal exam: Present: normal bowel sounds, soft, no peritoneal signs. Absent: distended, tenderness - Extremities Exam Extremities exam: Present: warm, radial pulses palpable and symmetrical. Absent : calf tenderness, cyanotic, pedal edema - Neurological Exam Neurological exam: Present: CN II-XII intact, oriented X3, no focal deficits. Absent: pronater drift, facial droop, speech deficit - Skin Skin exam: Present: dry, intact - VTE Documentation of Mechanical Device: Intermittent pneumatic compression device
== END 2017-08-17 13:50 | disposition home or self-care (01) | DRG 897 ==
LOC: 2NENU 05:04 → EMEROO 05:04 → 2NENU 07:30 → SUATTDRO 11:07
PROVIDERS: ADMIT Hospitalist; ATTEND Internal Medicine

== ENCOUNTER 2017-09-13 06:39 | Inpatient (IN) ==
[2017-09-13 07:17] LABS: Basophils % 0.5 %; Eosinophils # 0.2 K/mcL (0.0-0.6); Eosinophils % 3.1 %; Hematocrit 43.6 % (37.5-50.1); Hemoglobin 14.3 g/dL (12.9-16.9); Immature Granulocytes % 0.2 % (0-4); Lymphocytes # 1.7 K/mcL (0.6-4.6); Lymphocytes % 29.7 %; Mean Corpuscular HGB Conc 32.8 g/dL (31.6-35.5); Mean Corpuscular Hemoglobin 27.1 pg (28.0-33.3); Mean Corpuscular Volume 82.7 fL (83.0-100.0); Mean Platelet Volume 10.2 fL (9.4-12.4); Monocytes # 0.5 K/mcL (0.0-1.3); Monocytes % 9.2 %; Neutrophils # 3.3 K/mcL (1.6-8.9); Platelet Count 145 K/mcL (140-400); Red Blood Count 5.27 M/mcL (4.19-5.50); Segmented Neutrophils % 57.3 %
[2017-09-13] MEDS ORDERED: *HR* LORazepam 2 MG/ML VIAL IVP ONE ×3 (07:21→13:03)
[2017-09-13 07:32] LABS: Albumin 4.4 g/dL (3.5-5.0); Albumin/Globulin Ratio 0.9 (1.1-2.2); Bilirubin,Total 1.2 mg/dL (0.2-1.2); Calcium 9.8 mg/dL (8.6-10.8); Globulin 4.8 g/dL (2.4-3.5); Magnesium 2.1 mg/dL (1.6-2.6); Phosphorous 3.4 mg/dL (2.3-4.7); Potassium 3.1 mEq/L (3.5-4.5); Total Protein 9.2 g/dL (6.0-8.3)
--- NOTE | 2017-09-13 07:42 | Emergency Department Note ---
Disposition Clinical Impression: Alcohol withdrawal Disposition: Admitted As Inpatient Condition: Fair Referrals: NONE,PCP [Primary Care Provider] - Forms: ED Satisfaction Letter, Work/School Release General Adult HPI - General Chief complaint: ED Abdominal Pain Stated complaint: "alcohol withdrawl" Time Seen by Provider: 09/13/17 06:45 Source: patient, EMS Limitations: no limitations - History of Present Illness HPI Narrative: This is a 62-year-old male who states that he is here for acute alcohol withdrawal. He is having shaking and his last drink was approximately 3 days ago. He drinks a fifth of vodka every day normally and was not able to do so this weekend. He has had previous admission for DTs. He states that his withdrawal symptoms do get severe at times. He reports multiple episodes of vomiting Pain Scale: 9 - Related Data Home Medications Medication Instructions Recorded Confirmed Albuterol Sulfate [Proair Hfa] 2 puff IH Q4H PRN 12/21/16 08/08/17 Quetiapine Fumarate [Seroquel] 300 mg PO HS 12/21/16 08/08/17 SUMAtriptan succinate [Imitrex] 6 mg SQ AD PRN 12/21/16 08/08/17 Lipase/Protease/Amylase [Creon Dr 3 cap PO TIDWM 03/15/17 08/08/17 12,000 Units Capsule] Omeprazole [PriLOSEC] 20 mg PO DAILY 03/15/17 08/08/17 Amlodipine Besylate 10 mg PO DAILY 03/27/17 08/08/17 Budesonide/Formoterol 160/4.5 1 puff IH BIDR 03/27/17 08/08/17 [Symbicort 160/4.5] Desonide [Tridesilon] 1 appl TP BID PRN 03/27/17 08/08/17 Folic Acid 2 mg PO DAILY 03/27/17 08/08/17 Hydrocortisone 1% CREAM [Cortaid] 1 appl TP BID PRN 03/27/17 08/08/17 Magnesium Oxide [Mag-Ox] 400 mg PO BID 03/27/17 08/08/17 Thiamine (B-1) [Vitamin B-1] 100 mg PO BID 03/27/17 08/08/17 Cholecalciferol (Vitamin D3) 1,000 unit PO DAILY 04/23/17 08/08/17 [Vitamin D3] Cyanocobalamin (Vitamin B-12) 500 mcg PO DAILY 06/03/17 08/08/17 [Vitamin B-12] Divalproex (24 HR) [Depakote ER 1,250 mg PO HS 06/03/17 08/08/17 (24 HR)] Ketoconazole Shampoo [Nizoral 1 appl TP 2XW 06/03/17 08/08/17 Shampoo] Lactobacillus [Culturelle] 1 cap PO BID 06/03/17 08/08/17 traZODone [TraZODone] 50 mg PO TID 06/29/17 08/08/17 Previous Rx's Medication Instructions Recorded Amitriptyline [Elavil] 25 mg PO HS #30 tablet 08/17/17 Aspirin Enteric Coated [Aspirin EC] 81 mg PO DAILY #30 tablet. 08/17/17 Gabapentin [Neurontin] 400 mg PO TID #30 capsule 08/17/17 Nicotine Patch [Nicoderm] 21 mg TD DAILY patch.td24 08/17/17 Allergies Allergy/AdvReac Type Severity Reaction Status Date / Time Buspirone [From BuSpar] AdvReac See Verified 09/13/17 06:46 Comments tramadol AdvReac See Verified 09/13/17 06:46 Comments All systems ED: reviewed and negative except as stated. Constitutional: Denies: fever Cardiovascular: Denies: chest pain Respiratory: Denies: dyspnea Gastrointestinal: Reports: abdominal pain, nausea, vomiting Musculoskeletal: Reports: back pain Past Medical History - Past Medical History Attestation: Yes The following information was validated with the patient. Medical history: Reports: COPD, GERD, hypertension, migraine, myocardial infarction, other Surgical history: Reports: appendectomy, cholecystectomy, other Psychiatric history: Reports: anxiety, bipolar, depression, schizophrenia - Social History Smoking Status: Current every day smoker Smokeless Tobacco Status: No Alcohol use: Reports: heavy Drug use: Reports: none Physical Exam - General Limitations: no limitations General appearance: alert - Head Head exam: atraumatic - Eye Eye exam: Present: PERRL, EOMI - ENT ENT exam: mucous membranes dry - Neck Neck exam: Present: full ROM - Respiratory Respiratory exam: Present: normal lung sounds bilaterally - Cardiovascular Cardiovascular exam: Present: regular rate, tachycardia - Abdominal Exam Abdominal exam: Present: other (old midline urgical scar) - Extremities Exam Extremities exam: Present: normal inspection - Skin Skin exam: Present: warm, dry Course Course Narrative: This patient presents with shaking and appears to have symptoms of early withdrawal. He still has a barely detectable alcohol level. However it is low enough that it is consistent with his presentation. He has multiple electrolyte abnormalities including sodium and potassium. I discussed the case with the hospitalist to arrange for admission. We have ordered a banana bag with thiamine and multivitamin folate. 2 mg of Ativan so far Vital Signs Temperature 98.1 F 09/13/17 06:41 Pulse Rate 101 09/13/17 06:41 Respiratory Rate 20 09/13/17 06:41 Blood Pressure 116/90 09/13/17 06:41 O2 Sat by Pulse Oximetry 95 09/13/17 06:41 Temperature 98.1 F 09/13/17 06:41 Pulse Rate 92 09/13/17 08:05 Respiratory Rate 20 09/13/17 08:05 Blood Pressure 98/76 09/13/17 08:05 O2 Sat by Pulse Oximetry 97 09/13/17 08:05 Oxygen Delivery Oxygen Delivery Room Air Medical Decision Making - Lab Data Result diagrams: 09/13/17 07:10 09/13/17 07:10 Lab Results 09/13/17 09/13/17 Range/Units 07:10 07:10 WBC 5.8 (4.3-11.1) K/mcL RBC 5.27 (4.19-5.50) M/mcL Hgb 14.3 (12.9-16.9) g/dL Hct 43.6 (37.5-50.1) % MCV 82.7 L (83.0-100.0) fL MCH 27.1 L (28.0-33.3) pg MCHC 32.8 (31.6-35.5) g/dL RDW 16.0 H (11.5-14.5) % Plt Count 145 (140-400) K/mcL MPV 10.2 (9.4-12.4) fL Immature Gran % 0.2 (0-4) % Seg Neutrophils % 57.3 % Lymphocytes % 29.7 % Monocytes % 9.2 % Eosinophils % 3.1 % Basophils % 0.5 % Neutrophils # 3.3 (1.6-8.9) K/mcL Lymphocytes # 1.7 (0.6-4.6) K/mcL Monocytes # 0.5 (0.0-1.3) K/mcL Eosinophils # 0.2 (0.0-0.6) K/mcL Basophils # 0.0 (0.0-0.2) K/mcL Sodium 131 L (136-145) mEq/L Potassium 3.1 L (3.5-4.5) mEq/L Chloride 96 L (98-109) mEq/L Carbon Dioxide 10 L* (19-29) mEq/L BUN 29 H (8-26) mg/dL Creatinine 1.48 H (0.72-1.25) mg/dL Est GFR ( Amer) 59 L (> 60) Est GFR (Non-Af Amer) 48 L (> 60) BUN/Creatinine Ratio 20 (6-26) Glucose 69 L (70-99) mg/dL Calculated Osmolality 276 L (280-300) Calcium 9.8 (8.6-10.8) mg/dL Phosphorus 3.4 (2.3-4.7) mg/dL Magnesium 2.1 (1.6-2.6) mg/dL Total Bilirubin 1.2 (0.2-1.2) mg/dL AST 109 H (5-34) Units/L ALT 107 H (0-55) Units/L Alkaline Phosphatase 116 (38-126) Units/L Serum Total Protein 9.2 H (6.0-8.3) g/dL Albumin 4.4 (3.5-5.0) g/dL Globulin 4.8 H (2.4-3.5) g/dL Albumin/Globulin Ratio 0.9 L (1.1-2.2) Lipase 29 (8-78) Units/L Ethyl Alcohol 33 H (0-10) mg/dL - EKG Data EKG #1 EKG attestation: Yes I reviewed and interpreted this EKG. EKG results narrative: EKG interpreted by me showing sinus rhythm at a rate of 93, QRS of 80, QTC of 415 axis 191. Multiple supraventricular complexes noted
[2017-09-13] MEDS: Thiamine (B-1) 100 MG, Folic Acid 1 MG, MVI, adult with vitamin K 10 ML in 0.9 % Sodi... IVPB SCH (08:47)
[2017-09-13] MEDS ORDERED: Naloxone 0.4 MG/ML INJ IVP PRN (13:08)
[2017-09-13] MEDS ORDERED: *HR* LORazepam 2 MG/ML VIAL IVP PRN ×2 (13:15)
--- NOTE | 2017-09-13 13:24 | Internal Med History&Physical ---
Date of Encounter: 09/13/17 Time of Encounter: 13:24 Assessment and Plan (1) Alcohol withdrawal Current visit: Yes Status: Acute 62/male Patient admitted with alcohol withdrawal syndrome. Patient's alcohol level is 33. Patient's creatinine is 1.48. His previous creatinine was 1.02. His potassium is 3.1 Magnesium/phosphorus is within normal limits. AST/ALT elevated but that is consistent with the chronic alcohol use. Patient's lipase is within normal limits. Plan: Admit to the inpatient. We will start CIWA protocol. We will follow the recommendations as per rebekaer". We will replace the potassium. Patient is on IV fluids. We will repeat labs tomorrow. Close monitoring of the patient. Fall precautions. Qualifiers: Complication of substance-induced condition: with unspecified complication Qualified Code(s): F10.239 - Alcohol dependence with withdrawal, unspecified (2) SHELLEY (acute kidney injury) Current visit: Yes Status: Acute Acute kidney injury is likely secondary to dehydration. Patient is presently on IV fluids. We will repeat labs tomorrow. (3) Acute alcohol intoxication Current visit: No Status: Acute Patient has previously multiple admissions for all Intoxication. Present: Level is 33 We will follow-up very closely Qualifiers: Complication of substance-induced condition: with unspecified complication Qualified Code(s): F10.929 - Alcohol use, unspecified with intoxication, unspecified (4) Alcohol dependence Current visit: No Status: Acute Multiple attempts in the past has been done to get this patient to call rehabilitation program. tar worker was actively involved with this patient. Patient refuses to go to the cold rehabilitation program. Qualifiers: Substance use status: in withdrawal Complication of substance-induced condition: uncomplicated Qualified Code(s): F10.230 - Alcohol dependence with withdrawal, uncomplicated (5) Alcohol withdrawal delirium Current visit: No Status: Acute This is likely alcohol withdrawal delirium. We will monitor patient very closely. (6) Bipolar 1 disorder, depressed, moderate Current visit: No Status: Acute (7) DVT prophylaxis Current visit: Yes Status: Acute SCD Medical decision making: This patient has a moderate to severe risk of worsening in spite of being on appropriate medications due to the underlying complex medical conditions. Internal Medicine - H&P: HPI Chief complaint: Alcohol withdrawal Admitted From: Emergency Dept Plans for Post Hospital Care: Home History of present illness: Mr. 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 Mr. chen reported that he stopped drinking 36 hours back and in last 6-8 hours he is worsening in terms of his shakes and experiencing more and more hallucinations. When I asked Mr. Chen in the emergency room why he came to Hospital: His reply was I am having a very withdrawal from alcohol. patient denies chest pain, nausea, abdominal pain, short of breath, diarrhea or dizziness. Reason for hospitalization: Management of a cold withdrawal. Past Med Surg Social Fam HX - Past Medical History Medical history: COPD, GERD, hypertension, migraine, myocardial infarction, other Psychiatric history: anxiety, bipolar, depression, schizophrenia - Past Surgical History Surgical History: appendectomy, cholecystectomy, other - Social History Smoking Status: Current every day smoker Smokeless Tobacco Status: No Alcohol use: heavy Drug use: none - Family History Mother Adopted: No Family Member Ethnicity: Non- Living Status: Still Living Hx Family Cardiac Disorders: Yes Hx Family Respiratory Disorders: No Hx Family Cancer: No Hx Family GI Disorders: No Hx Family Endocrine Disorder: No Hx Family Neuromuscular Disorders: No Hx Family Neurologic Disorders: Yes Hx Family HEENT Disorders: No Hx Family Autoimmune Disorders: No Father Living Status: Internal Medicine - H&P: Meds Albuterol Sulfate [Proair Hfa] 2 puff IH Q4H PRN 12/21/16 [History] Quetiapine Fumarate [Seroquel] 300 mg PO HS 12/21/16 [History] Lipase/Protease/Amylase [Creon Dr 12,000 Units Capsule] 3 cap PO TIDWM 03/15/17 [History] Omeprazole [PriLOSEC] 20 mg PO DAILY 03/15/17 [History] Amlodipine Besylate 10 mg PO DAILY 03/27/17 [History] Budesonide/Formoterol 160/4.5 [Symbicort 160/4.5] 1 puff IH BIDR 03/27/17 [ History] Cyanocobalamin (Vitamin B-12) [Vitamin B-12] 500 mcg PO DAILY 06/03/17 [History] Divalproex (24 HR) [Depakote ER (24 HR)] 1,250 mg PO HS 06/03/17 [History] traZODone [TraZODone] 50 mg PO TID 06/29/17 [History] Amitriptyline [Elavil] 25 mg PO HS #30 tablet 08/17/17 [Rx] Gabapentin [Neurontin] 400 mg PO TID #30 capsule 08/17/17 [Rx] Pregabalin [Lyrica] 150 mg PO BID 09/13/17 [History] 3 Allergy/AdvReac Type Severity Reaction Status Date / Time Buspirone [From BuSpar] AdvReac See Verified 09/13/17 06:46 Comments tramadol AdvReac See Verified 09/13/17 06:46 Comments All Systems PM: A 10-system review of systems was performed and is negative for pertinent findings except as documented above in the HPI. - Constitutional Constitutional: chills, excessive sweating, lethargy, night sweats, weakness, no fever(s) - EENT Eyes: no change in vision, no discharge, no pain, no photophobia Ears: no ear discharge, no ear pain, no tinnitus Nose, mouth and throat: no dysphagia, no nasal discharge, no neck pain, no sore throat - Cardiovascular Cardiovascular ROS IM: no chest pain, no diaphoresis, no dyspnea, no lightheadedness, no palpitations, no syncope - Respiratory Respiratory: no cough, no dyspnea, no wheezing, no excessive phlegm production - Gastrointestinal Gastrointestinal: no abdominal pain, no diarrhea, no hematemesis, no hematochezia, no melena, no nausea, no vomiting - Musculoskeletal Musculoskeletal ROS IM: no numbness, no tingling - Integumentary Integumentary IM: no rash, no unusual bruising - Neurological Neurological ROS: no confusion, no convulsions, no focal weakness, no numbness, no tingling, no tremor(s) - Hematologic/Lymphatic Hematologic/Lymphatic: no easy bruising - Constitutional Vitals: Temp Pulse Resp BP Pulse Ox 98.2 F 93 24 137/79 99 09/13/17 10:09 09/13/17 10:09 09/13/17 10:09 09/13/17 10:09 09/13/17 10:09 General appearance: Present: mild distress, A&O X 3, pleasant, answers questions appropriately - Head Head exam: Present: atraumatic, normocephalic - Eye Eye exam: Present: PERRL, conjuntiva pink, sclera anicteric Pupils: Present: PERRL - Neck Neck exam general surgery: Present: supple, trachea midline. Absent: lymphadenopathy - Respiratory Respiratory exam: Present: CTAB. Absent: accessory muscle use, rales, rhonchi, wheezes - Cardiovascular Cardiovascular exam: Present: RRR, +S1, +S2. Absent: diastolic murmur, gallop, rubs, systolic murmur - GI/Abdominal GI/Abdominal exam: Present: normal bowel sounds, soft, no peritoneal signs. Absent: distended, tenderness - Extremities Exam Extremities exam: Present: warm, radial pulses palpable and symmetrical. Absent : calf tenderness, cyanotic, pedal edema - Neurological Exam Neurological exam: Present: CN II-XII intact, oriented X3, no focal deficits. Absent: pronater drift, facial droop, speech deficit - Skin Skin exam: Present: dry, intact Internal Med - H&P Results - Labs CBC & Chem 7: 09/13/17 07:10 09/13/17 07:10
[2017-09-13 14:14] LABS: Bilirubin,Urine Moderate (Negative); Blood,Urine Negative (Negative); Clarity,Urine Clear (Clear); Color,Urine Dark Yellow (Yellow); Glucose,Urine (UA) Normal (Normal); Ketones,Urine 40 mg/dL (Negative); Leukocyte Esterase,Urine Negative (Negative); Nitrite,Urine Negative (Negative); PH,Urine 6.5 pH Units (5.0-8.0); Protein,Urine 100 mg/dL (Neg-Trace); Specific Gravity,Urine 1.028 (1.010-1.025); Urobilinogen,Urine Normal (Normal)
[2017-09-13 14:16] LABS: Bacteria,Urine None Seen per hpf (None-Few); Squamous Epithelial Cell,Urine Many per lpf (None-Few)
[2017-09-13 14:24] LABS: Amphetamine Screen,Urine Negative ng/mL (Cutoff=1000); Barbiturate Screen,Urine Positive ng/mL (Cutoff=200); Benzodiazepines Screen,Urine Positive ng/mL (Cutoff=200); Cannabinoid Screen,Urine Negative ng/mL (Cutoff = 50); Cocaine Screen,Urine Negative ng/mL (Cutoff= 300); Opiate Screen,Urine Negative ng/mL (Cutoff=300); Phencyclidine Screen,Urine Negative ng/mL (Cutoff=25)
[2017-09-13] MEDS: Gabapentin 400 MG CAPSULE PO SCH ×2 (14:55→21:27)
[2017-09-13] MEDS: traZODone 50 MG TABLET PO SCH ×2 (14:55→21:27)
[2017-09-13] MEDS: *HR* LORazepam 2 MG/ML VIAL IVP PRN ×2 (14:55→18:42)
[2017-09-13] MEDS ORDERED: Thiamine (B-1) 100 MG, Folic Acid 1 MG, MVI, adult with vitamin K 10 ML in 0.9 % Sodi... IVPB SCH (18:00)
[2017-09-13] MEDS: Pregabalin 75 MG CAPSULE PO SCH (21:27)
[2017-09-13] MEDS: Divalproex (24 HR) 250 MG TABLET PO SCH (21:28)
[2017-09-14 04:19] LABS: Activated Partial Thrombo Time 21.1 Seconds (26.0-36.0)
[2017-09-14 04:24] LABS: Alanine Aminotransferase 78 Units/L (0-55); Albumin 3.9 g/dL (3.5-5.0); Alkaline Phosphatase 95 Units/L (38-126); Aspartate Amino Transferase 70 Units/L (5-34); BUN/Creatinine Ratio 29 (6-26); Bilirubin,Total 0.7 mg/dL (0.2-1.2); Blood Urea Nitrogen 33 mg/dL (8-26); Calcium 9.9 mg/dL (8.6-10.8); Carbon Dioxide 22 mEq/L (19-29); Chloride 103 mEq/L (98-109); Glucose 118 mg/dL (70-99); Magnesium 2.3 mg/dL (1.6-2.6); Osmolality,Calculated 288 (280-300); Phosphorous 3.8 mg/dL (2.3-4.7); Sodium 135 mEq/L (136-145); Total Protein 7.9 g/dL (6.0-8.3); eGFR For African Americans > 60 (> 60); eGFR For Non-African Americans > 60 (> 60)
[2017-09-14 04:25] LABS: Basophils % 0.3 %; Eosinophils # 0.1 K/mcL (0.0-0.6); Eosinophils % 1.8 %; Hematocrit 38.4 % (37.5-50.1); Hemoglobin 12.5 g/dL (12.9-16.9); Immature Granulocytes % 0.3 % (0-4); Immature Platelets 5.1 % (1.1-6.1); Lymphocytes # 1.3 K/mcL (0.6-4.6); Lymphocytes % 18.7 %; Mean Corpuscular HGB Conc 32.6 g/dL (31.6-35.5); Mean Corpuscular Hemoglobin 26.7 pg (28.0-33.3); Mean Corpuscular Volume 81.9 fL (83.0-100.0); Mean Platelet Volume 10.3 fL (9.4-12.4); Monocytes # 0.4 K/mcL (0.0-1.3); Neutrophils # 5.2 K/mcL (1.6-8.9); Platelet Count 102 K/mcL (140-400); Red Blood Count 4.69 M/mcL (4.19-5.50); Segmented Neutrophils % 72.9 %
[2017-09-14 04:31] LABS: Potassium 3.3 mEq/L (3.5-4.5)
[2017-09-14] MEDS: *HR* LORazepam 2 MG/ML VIAL IVP PRN ×4 (06:35→19:45)
[2017-09-14] MEDS ORDERED: Potassium Chloride Elixir 20 MEQ/15 ML UDC PO ONE (08:08)
--- NOTE | 2017-09-14 08:11 | Internal Med Progress Note ---
Date of Encounter: 09/14/17 Time of Encounter: 08:09 - Assessment and plan (1) Alcohol withdrawal Current Visit: Yes Status: Acute Assessment and plan: Patient is admitted with alcohol withdrawal. Today's a day 2 of his auscultation. We are following [facility] protocol. Patient is getting his medication as per protocol. Patient feels much better as compared to yesterday. We will continue the same management at this point. Qualifiers: Complication of substance-induced condition: with unspecified complication Qualified Code(s): F10.239 - Alcohol dependence with withdrawal, unspecified (2) SHELLEY (acute kidney injury) Current Visit: Yes Status: Acute Assessment and plan: Patient's creatinine improved significantly. We will continue IV fluids today. We will monitor labs closely. (3) Acute alcohol intoxication Current Visit: No Status: Acute Assessment and plan: Patient's acute intoxication is subsided. Patient has again about acute alcohol intoxication. He promises that he will not drink again. Qualifiers: Complication of substance-induced condition: with unspecified complication Qualified Code(s): F10.929 - Alcohol use, unspecified with intoxication, unspecified (4) Alcohol dependence Current Visit: No Status: Acute Assessment and plan: Patient is alcoholic dependence. Patient might need inpatient rehabilitation for alcohol withdrawal symptoms Qualifiers: Substance use status: in withdrawal Complication of substance-induced condition: uncomplicated Qualified Code(s): F10.230 - Alcohol dependence with withdrawal, uncomplicated (5) Alcohol withdrawal delirium Current Visit: No Status: Acute Assessment and plan: Improving (6) Bipolar 1 disorder, depressed, moderate Current Visit: No Status: Acute Assessment and plan: Stable (7) DVT prophylaxis Current Visit: Yes Status: Acute Assessment and plan: Continue same - Subjective Interval history: Patient seen and examined. Chart reviewed. Patient is comfortably lying in the bed. Patient's shakes have decreased in intensity. Patient feels that he is feeling little better as compared to yesterday. - Constitutional Vitals: Temp Pulse Resp BP Pulse Ox 97.7 F 107 18 129/86 90 09/14/17 07:03 09/14/17 07:03 09/14/17 07:03 09/14/17 07:03 09/14/17 07:03 General appearance: Present: mild distress, A&O X 3, pleasant, answers questions appropriately - Head Head exam: Present: atraumatic, normocephalic - Eye Eye exam: Present: PERRL, conjuntiva pink, sclera anicteric Pupils: Present: PERRL - Neck Neck exam general surgery: Present: supple, trachea midline. Absent: lymphadenopathy - Respiratory Respiratory exam: Present: CTAB. Absent: accessory muscle use, rales, rhonchi, wheezes - Cardiovascular Cardiovascular exam: Present: RRR, +S1, +S2. Absent: diastolic murmur, gallop, rubs, systolic murmur - GI/Abdominal GI/Abdominal exam: Present: normal bowel sounds, soft, no peritoneal signs. Absent: distended, tenderness - Extremities Exam Extremities exam: Present: warm, radial pulses palpable and symmetrical. Absent : calf tenderness, cyanotic, pedal edema - Neurological Exam Neurological exam: Present: CN II-XII intact, oriented X3, no focal deficits. Absent: pronater drift, facial droop, speech deficit - Skin Skin exam: Present: dry, intact Internal Medicine: Result - Labs CBC & Chem 7: 09/14/17 03:57 09/14/17 03:57 Labs: Short CBC 09/14/17 Range/Units 03:57 WBC 7.1 (4.3-11.1) K/mcL Hgb 12.5 L D (12.9-16.9) g/dL Hct 38.4 (37.5-50.1) % Plt Count 102 L (140-400) K/mcL Neutrophils # 5.2 (1.6-8.9) K/mcL BMP 09/14/17 03:57 Sodium 135 L Potassium 3.3 L Chloride 103 Carbon Dioxide 22 BUN 33 H Creatinine 1.15 Glucose 118 H Calcium 9.9 Liver Function 09/14/17 Range/Units 03:57 Total Bilirubin 0.7 (0.2-1.2) mg/dL AST 70 H (5-34) Units/L ALT 78 H (0-55) Units/L Alkaline Phosphatase 95 (38-126) Units/L Albumin 3.9 (3.5-5.0) g/dL Urine 09/13/17 Range/Units 14:05 Urine Color Dark Yellow (Yellow) Urine Clarity Clear (Clear) Urine pH 6.5 (5.0-8.0) pH Units Ur Specific [place] 1.028 H (1.010-1.025) Urine Protein 100 H (Neg-Trace) mg/dL Urine Glucose (UA) Normal (Normal) mg/dL - ABG Interpretation ABG results: PT/INR, D-dimer PT 11.0 Seconds (9.4-12.1) 09/14/17 03:57 Consult Discharge Plan - Plan Referrals: NONE,PCP [Primary Care Provider] -
[2017-09-14] MEDS ORDERED: Folic Acid 1 MG TABLET PO SCH (09:00)
[2017-09-14] MEDS ORDERED: Thiamine (B-1) 100 MG TABLET PO SCH (09:00)
[2017-09-14] MEDS: Gabapentin 400 MG CAPSULE PO SCH ×3 (10:08→19:54)
[2017-09-14] MEDS: Vitamin B Complex/Vit C/Vit E 1 EACH TABLET PO SCH (10:08)
[2017-09-14] MEDS: Pregabalin 75 MG CAPSULE PO SCH ×2 (10:08→19:54)
[2017-09-14] MEDS: amLODIPine 5 MG TABLET PO SCH (10:08)
[2017-09-14] MEDS: traZODone 50 MG TABLET PO SCH ×3 (10:08→19:55)
[2017-09-14] MEDS: Thiamine (B-1) 100 MG, Folic Acid 1 MG, MVI, adult with vitamin K 10 ML in 0.9 % Sodi... IVPB SCH (10:15)
[2017-09-14] MEDS ORDERED: Water for inj. (sterile) 10 ML IV ONE (19:40)
[2017-09-14] MEDS: Divalproex (24 HR) 250 MG TABLET PO SCH (19:53)
--- NOTE | 2017-09-14 20:04 | Electrocardiograph Report ---
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
[2017-09-14] MEDS: Nicotine 21 MG PATCH.TD24 TD SCH (21:29)
[2017-09-15] MEDS: *HR* LORazepam 2 MG/ML VIAL IVP PRN ×6 (00:09→21:45)
[2017-09-15 05:05] LABS: Basophils % 0.3 %; Immature Granulocytes % 0.3 % (0-4)
[2017-09-15 05:07] LABS: Eosinophils # 0.1 K/mcL (0.0-0.6); Eosinophils % 2.7 %; Hematocrit 34.8 % (37.5-50.1); Immature Platelets 6.8 % (1.1-6.1); Lymphocytes # 1.2 K/mcL (0.6-4.6); Lymphocytes % 32.5 %; Mean Corpuscular HGB Conc 31.6 g/dL (31.6-35.5); Mean Corpuscular Hemoglobin 26.9 pg (28.0-33.3); Mean Corpuscular Volume 85.1 fL (83.0-100.0); Mean Platelet Volume 12.3 fL (9.4-12.4); Monocytes # 0.3 K/mcL (0.0-1.3); Neutrophils # 2.1 K/mcL (1.6-8.9); Red Blood Count 4.09 M/mcL (4.19-5.50); Red Cell Distribution Width 16.1 % (11.5-14.5); Segmented Neutrophils % 57.2 %
[2017-09-15 05:23] LABS: Alanine Aminotransferase 74 Units/L (0-55); Albumin 3.2 g/dL (3.5-5.0); Albumin/Globulin Ratio 0.8 (1.1-2.2); Alkaline Phosphatase 87 Units/L (38-126); Aspartate Amino Transferase 73 Units/L (5-34); BUN/Creatinine Ratio 21 (6-26); Bilirubin,Total 0.4 mg/dL (0.2-1.2); Blood Urea Nitrogen 19 mg/dL (8-26); Calcium 8.7 mg/dL (8.6-10.8); Carbon Dioxide 21 mEq/L (19-29); Chloride 110 mEq/L (98-109); Globulin 3.8 g/dL (2.4-3.5); Glucose 86 mg/dL (70-99); Osmolality,Calculated 290 (280-300); Potassium 3.4 mEq/L (3.5-4.5); Sodium 139 mEq/L (136-145); eGFR For African Americans > 60 (> 60); eGFR For Non-African Americans > 60 (> 60)
[2017-09-15 05:25] LABS: Platelet Count 64 K/mcL (140-400)
[2017-09-15] MEDS: Gabapentin 400 MG CAPSULE PO SCH ×3 (08:38→19:54)
[2017-09-15] MEDS: amLODIPine 5 MG TABLET PO SCH (08:38)
[2017-09-15] MEDS: Vitamin B Complex/Vit C/Vit E 1 EACH TABLET PO SCH (08:38)
[2017-09-15] MEDS: Pregabalin 75 MG CAPSULE PO SCH ×2 (08:39→19:53)
[2017-09-15] MEDS: Nicotine 21 MG PATCH.TD24 TD SCH (08:39)
[2017-09-15] MEDS: traZODone 50 MG TABLET PO SCH ×3 (08:39→19:53)
[2017-09-15] MEDS: Thiamine (B-1) 100 MG, Folic Acid 1 MG, MVI, adult with vitamin K 10 ML in 0.9 % Sodi... IVPB SCH (09:52)
[2017-09-15] MEDS ORDERED: Acetaminophen 325 MG TABLET PO PRN (13:18)
--- NOTE | 2017-09-15 14:16 | Internal Med Progress Note ---
Date of Encounter: 09/15/17 Time of Encounter: 14:14 - Assessment and plan (1) Alcohol intoxication Current Visit: No Status: Chronic Assessment and plan: clinically better Qualifiers: Complication of substance-induced condition: with delirium Qualified Code(s ): F10.921 - Alcohol use, unspecified with intoxication delirium (2) Alcohol withdrawal Current Visit: No Status: Acute Assessment and plan: day # 3 clinically better Qualifiers: Complication of substance-induced condition: uncomplicated Qualified Code(s ): F10.230 - Alcohol dependence with withdrawal, uncomplicated (3) History of substance abuse Current Visit: No Status: Chronic Assessment and plan: chronic - Subjective Interval history: Patient with history of COPD, multiple admissions for alcohol related problems patient was admitted due to alcohol withdrawal and intoxication . on alcohol withdrawal protocol Today the patient says he feels better still shaking had a chest x-ray which was unremarkable noted no fracture no pneumonia - Constitutional Vitals: Temp Pulse Resp BP Pulse Ox 97.7 F 96 18 142/87 96 09/15/17 07:34 09/15/17 07:34 09/15/17 07:34 09/15/17 07:34 09/15/17 07:34 General appearance: Present: mild distress, A&O X 3, pleasant, answers questions appropriately - Head Head exam: Present: atraumatic, normocephalic - Eye Eye exam: Present: PERRL, conjuntiva pink, sclera anicteric Pupils: Present: PERRL - Respiratory Respiratory exam: Present: CTAB. Absent: accessory muscle use, rales, rhonchi, wheezes - Cardiovascular Cardiovascular exam: Present: RRR, +S1, +S2. Absent: diastolic murmur, gallop, rubs, systolic murmur - GI/Abdominal GI/Abdominal exam: Present: normal bowel sounds, soft, no peritoneal signs. Absent: distended, tenderness - Extremities Exam Extremities exam: Present: warm, radial pulses palpable and symmetrical. Absent : calf tenderness, cyanotic, pedal edema Internal Medicine: Result - Labs CBC & Chem 7: 09/15/17 04:45 09/15/17 04:45 Labs: Short CBC 09/15/17 Range/Units 04:45 WBC 3.7 L (4.3-11.1) K/mcL Hgb 11.0 L D (12.9-16.9) g/dL Hct 34.8 L (37.5-50.1) % Plt Count 64 L (140-400) K/mcL Neutrophils # 2.1 (1.6-8.9) K/mcL BMP 09/15/17 04:45 Sodium 139 Potassium 3.4 L Chloride 110 H Carbon Dioxide 21 BUN 19 D Creatinine 0.92 Glucose 86 Calcium 8.7 Liver Function 09/15/17 Range/Units 04:45 Total Bilirubin 0.4 (0.2-1.2) mg/dL AST 73 H (5-34) Units/L ALT 74 H (0-55) Units/L Alkaline Phosphatase 87 (38-126) Units/L Albumin 3.2 L (3.5-5.0) g/dL - ABG Interpretation ABG results: PT/INR, D-dimer PT 11.0 Seconds (9.4-12.1) 09/14/17 03:57 - Impressions Impressions Chest X-Ray 09/15/17 10:53 IMPRESSION: Mild bibasilar atelectasis. No acute cardiopulmonary process. D/ : / 09/15/2017 12:39:49 Norm Ly MD / [email or web address] Interpreting Provider: Norm Ly MD Consult Discharge Plan - Plan Referrals: NONE,PCP [Primary Care Provider] -
[2017-09-15] MEDS: Divalproex (24 HR) 250 MG TABLET PO SCH (19:52)
[2017-09-15] MEDS ORDERED: Ipratropium/Albuterol Neb 3 ML IH PRN (22:35)
[2017-09-16 04:51] LABS: Basophils % 0.2 %; Immature Granulocytes % 0.4 % (0-4)
[2017-09-16 04:53] LABS: Eosinophils # 0.1 K/mcL (0.0-0.6); Eosinophils % 2.4 %; Hemoglobin 11.1 g/dL (12.9-16.9); Immature Platelets 7.3 % (1.1-6.1); Lymphocytes # 1.3 K/mcL (0.6-4.6); Lymphocytes % 26.4 %; Mean Corpuscular HGB Conc 30.8 g/dL (31.6-35.5); Mean Corpuscular Hemoglobin 26.6 pg (28.0-33.3); Mean Corpuscular Volume 86.3 fL (83.0-100.0); Mean Platelet Volume 11.1 fL (9.4-12.4); Monocytes # 0.4 K/mcL (0.0-1.3); Monocytes % 7.8 %; Red Blood Count 4.17 M/mcL (4.19-5.50); Red Cell Distribution Width 16.2 % (11.5-14.5); Segmented Neutrophils % 62.8 %
[2017-09-16 05:01] LABS: Alanine Aminotransferase 108 Units/L (0-55); Albumin 3.7 g/dL (3.5-5.0); Alkaline Phosphatase 89 Units/L (38-126); Aspartate Amino Transferase 109 Units/L (5-34); BUN/Creatinine Ratio 14 (6-26); Bilirubin,Total 0.5 mg/dL (0.2-1.2); Blood Urea Nitrogen 14 mg/dL (8-26); Calcium 9.9 mg/dL (8.6-10.8); Carbon Dioxide 20 mEq/L (19-29); Chloride 107 mEq/L (98-109); Globulin 3.8 g/dL (2.4-3.5); Glucose 102 mg/dL (70-99); Osmolality,Calculated 287 (280-300); Potassium 3.7 mEq/L (3.5-4.5); Sodium 138 mEq/L (136-145); Total Protein 7.5 g/dL (6.0-8.3); eGFR For African Americans > 60 (> 60); eGFR For Non-African Americans > 60 (> 60)
[2017-09-16 05:02] LABS: Neutrophils # 3.1 K/mcL (1.6-8.9); Platelet Count 78 K/mcL (140-400)
[2017-09-16] MEDS: *HR* LORazepam 2 MG/ML VIAL IVP PRN ×2 (05:17→09:23)
[2017-09-16] MEDS: traZODone 50 MG TABLET PO SCH (09:23)
[2017-09-16] MEDS: Gabapentin 400 MG CAPSULE PO SCH (09:23)
[2017-09-16] MEDS: Vitamin B Complex/Vit C/Vit E 1 EACH TABLET PO SCH (09:23)
[2017-09-16] MEDS: Nicotine 21 MG PATCH.TD24 TD SCH (09:23)
[2017-09-16] MEDS: amLODIPine 5 MG TABLET PO SCH (09:23)
[2017-09-16] MEDS: Thiamine (B-1) 100 MG, Folic Acid 1 MG, MVI, adult with vitamin K 10 ML in 0.9 % Sodi... IVPB SCH (09:24)
[2017-09-16] MEDS: Pregabalin 75 MG CAPSULE PO SCH (09:24)
[2017-09-16 11:26] VITALS: BP 146/84
--- NOTE | 2017-09-16 11:47 | Discharge Summary ---
Date of Encounter: 09/16/17 Time of Encounter: 11:45 - Discharge Diagnosis (1) Alcohol intoxication Priority: Primary Status: Chronic Comments: clinically better Qualifiers: Complication of substance-induced condition: with delirium Qualified Code(s ): F10.921 - Alcohol use, unspecified with intoxication delirium (2) Alcohol withdrawal Priority: Secondary Status: Acute Comments: now returned back to baseline Qualifiers: Complication of substance-induced condition: uncomplicated Qualified Code(s ): F10.230 - Alcohol dependence with withdrawal, uncomplicated (3) History of substance abuse Priority: Secondary Status: Chronic - Discharge Medications Home Medications: Albuterol Sulfate [Proair Hfa] 2 puff IH Q4H PRN 12/21/16 [History] Quetiapine Fumarate [Seroquel] 300 mg PO HS 12/21/16 [History] Lipase/Protease/Amylase [Creon Dr 12,000 Units Capsule] 3 cap PO TIDWM 03/15/17 [History] Omeprazole [PriLOSEC] 20 mg PO DAILY 03/15/17 [History] Amlodipine Besylate 10 mg PO DAILY 03/27/17 [History] Budesonide/Formoterol 160/4.5 [Symbicort 160/4.5] 1 puff IH BIDR 03/27/17 [ History] Cyanocobalamin (Vitamin B-12) [Vitamin B-12] 500 mcg PO DAILY 06/03/17 [History] Divalproex (24 HR) [Depakote ER (24 HR)] 1,250 mg PO HS 06/03/17 [History] traZODone [TraZODone] 50 mg PO TID 06/29/17 [History] Amitriptyline [Elavil] 25 mg PO HS #30 tablet 08/17/17 [Rx] Gabapentin [Neurontin] 400 mg PO TID #30 capsule 08/17/17 [Rx] Pregabalin [Lyrica] 150 mg PO BID 09/13/17 [History] Allergies/Adverse Reactions: 3 Allergy/AdvReac Type Severity Reaction Status Date / Time Buspirone [From BuSpar] AdvReac See Verified 09/13/17 06:46 Comments tramadol AdvReac See Verified 09/13/17 06:46 Comments Date of admission: 09/13/17 13:08 Primary care physician: PCP NONE Consults: 09/13/17 13:15 Consult to [facility] [CONS] Routine Reason for SW Consult: Alcohol withdrawal Discharging clinician: Hilario De Los Santos Anticipated date of discharge: 09/16/17 - Patient Status Disposition: Home, Self-Care Condition: Good Overall status at discharge: patient is progressing back to baseline - Discharge Instructions Follow Up With: NONE,PCP [Primary Care Provider] - Hospital course: Mr. Chen is a 62 year old male - Time Spent with Patient Total time spent providing and/or coordinating discharge services: - Constitutional Vitals: Temp Pulse Resp BP Pulse Ox 97.3 F L 92 18 146/84 97 09/16/17 11:24 09/16/17 11:24 09/16/17 11:24 09/16/17 11:24 09/16/17 11:24 General appearance: Present: mild distress, A&O X 3, pleasant, answers questions appropriately
== END 2017-09-16 12:20 | disposition home or self-care (01) | DRG 897 ==
LOC: 3BNU 06:39 → EMEROO 06:39 → 3BNU 10:16
PROVIDERS: ADMIT Internal Medicine; ATTEND Registered Nurse

== ENCOUNTER 2017-09-27 10:14 | Inpatient (IN) ==
[2017-09-27] MEDS ORDERED: Beer can PO ONE (10:20)
--- NOTE | 2017-09-27 10:26 | Emergency Department Note ---
Disposition Clinical Impression: Transaminitis Alcohol withdrawal Qualifiers: Complication of substance-induced condition: uncomplicated Qualified Code(s): F10.230 - Alcohol dependence with withdrawal, uncomplicated Disposition: Admitted As Inpatient Condition: Good General Adult HPI - General Chief complaint: ED Chest Pain Stated complaint: alcohol withdrawl/chest pain/MARISEL Time Seen by Provider: 09/27/17 10:19 Source: patient Mode of arrival: EMS Limitations: no limitations Nursing Notes Reviewed: Yes Vital Signs Reviewed: Yes - History of Present Illness HPI Narrative: 62-year-old male who drinks half a gallon of vodka daily. He reports he is out of money and has not drank any alcohol for 2 days. He does not have any desire to quit drinking but is just out of money currently. He reports that he is shaking and is now having right sided lower chest discomfort. He does not have any cardiac history. He has no stents or open heart bypass. He has had part of his pancreas removed along with a piece of the small bowel due to complications from pancreatitis. He denies taking any current medications. Denies any fever. Has not had vomiting. He denies having a cough. Radiation: non-radiation Pain Severity: moderate Consistency: constant Improves with: nothing Worsens with: nothing Associated symptoms: Reports: denies other symptoms Treatments Prior to Arrival: none - Related Data Home Medications Medication Instructions Recorded Confirmed Albuterol Sulfate [Proair Hfa] 2 puff IH Q4H PRN 12/21/16 09/27/17 Quetiapine Fumarate [Seroquel] 300 mg PO HS 12/21/16 09/27/17 Lipase/Protease/Amylase [Ananya Kern 3 cap PO TIDWM 03/15/17 09/27/17 12,000 Units Capsule] Omeprazole [PriLOSEC] 20 mg PO DAILY 03/15/17 09/27/17 Amlodipine Besylate 10 mg PO DAILY 03/27/17 09/27/17 Budesonide/Formoterol 160/4.5 1 puff IH BIDR 03/27/17 09/27/17 [Symbicort 160/4.5] Cyanocobalamin (Vitamin B-12) 500 mcg PO DAILY 06/03/17 09/27/17 [Vitamin B-12] Divalproex (24 HR) [Depakote ER 1,250 mg PO HS 06/03/17 09/27/17 (24 HR)] traZODone [TraZODone] 50 mg PO TID 06/29/17 09/27/17 Gabapentin [Neurontin] 300 mg PO TID 09/27/17 09/27/17 Previous Rx's Medication Instructions Recorded Amitriptyline [Elavil] 25 mg PO HS #30 tablet 08/17/17 Allergies Allergy/AdvReac Type Severity Reaction Status Date / Time Buspirone [From BuSpar] AdvReac See Verified 09/13/17 06:46 Comments tramadol AdvReac See Verified 09/13/17 06:46 Comments All systems ED: reviewed and negative except as stated. Constitutional: Denies: fever Cardiovascular: Reports: chest pain Respiratory: Denies: cough, dyspnea Gastrointestinal: Denies: abdominal pain, diarrhea Musculoskeletal: Denies: back pain Integumentary: Denies: rash Past Medical History - Past Medical History Medical history: Reports: COPD, GERD, hypertension, migraine, myocardial infarction, other Surgical history: Reports: appendectomy, cholecystectomy, other Psychiatric history: Reports: anxiety, bipolar, depression, schizophrenia - Social History Smoking Status: Current every day smoker Smokeless Tobacco Status: No Alcohol use: Reports: heavy Drug use: Reports: none Physical Exam - General Limitations: no limitations General appearance: alert, anxious - Head Head exam: atraumatic - Eye Eye exam: Present: normal appearance - ENT ENT exam: normal exam - Neck Neck exam: Present: normal inspection - Chest Chest inspection: Present: normal inspection - Respiratory Respiratory exam: Present: normal lung sounds bilaterally. Absent: respiratory distress - Cardiovascular Cardiovascular exam: Present: normal rhythm, tachycardia - Abdominal Exam Abdominal exam: Present: soft, Non-Tender, other (numerous surgical scars in upper abdomen) - Extremities Exam Extremities exam: Present: normal inspection - Back Exam Back exam: Present: normal inspection - Neurological Exam Neurological exam: Present: alert, other (confusion as to the year. Knows the month and season and general events.) - Psychiatric Psychiatric exam: Present: agitated, anxious - Skin Skin exam: Present: warm, dry Course Course Narrative: CIWA of 16. Moderate withdrawal. No hx of DT's. Last drink was 48 hours ago. Will give beer and ativan as needed. Significant improvement in symptoms and tremors after 4mg of ativan and a beer. Will admit for alcohol with drawal. ETOH level drawn after beer was given. Vital Signs Temperature 97.8 F 09/27/17 10:22 Pulse Rate 91 09/27/17 10:22 Respiratory Rate 24 09/27/17 10:22 Blood Pressure 98/76 09/27/17 10:22 O2 Sat by Pulse Oximetry 98 09/27/17 10:22 Temperature 98.4 F 09/27/17 15:49 Pulse Rate 77 09/27/17 15:49 Respiratory Rate 16 09/27/17 15:49 Blood Pressure 184/95 09/27/17 15:49 O2 Sat by Pulse Oximetry 95 09/27/17 15:49 Oxygen Delivery Oxygen Delivery Nasal Cannula Medical Decision Making - Medical Records Medical records reviewed: Yes I reviewed the patient's medical records. - Lab Data Lab results reviewed: Yes I reviewed the patient's lab results. Result diagrams: 09/27/17 10:50 09/27/17 11:13 Lab Results 09/27/17 09/27/17 09/27/17 Range/Units 10:50 10:50 11:13 WBC 5.3 (4.3-11.1) K/mcL RBC 5.09 (4.19-5.50) M/mcL Hgb 13.5 (12.9-16.9) g/dL Hct 41.7 (37.5-50.1) % MCV 81.9 L (83.0-100.0) fL MCH 26.5 L (28.0-33.3) pg MCHC 32.4 (31.6-35.5) g/dL RDW 17.2 H (11.5-14.5) % Plt Count 223 (140-400) K/mcL MPV 8.9 L (9.4-12.4) fL Immature Gran % 0.2 (0-4) % Seg Neutrophils % 52.6 % Lymphocytes % 39.8 % Monocytes % 5.1 % Eosinophils % 1.5 % Basophils % 0.8 % Neutrophils # 2.8 (1.6-8.9) K/mcL Lymphocytes # 2.1 (0.6-4.6) K/mcL Monocytes # 0.3 (0.0-1.3) K/mcL Eosinophils # 0.1 (0.0-0.6) K/mcL Basophils # 0.0 (0.0-0.2) K/mcL Sodium 138 (136-145) mEq/L Potassium 3.5 (3.5-4.5) mEq/L Chloride 105 (98-109) mEq/L Carbon Dioxide 15 L (19-29) mEq/L BUN 7 L (8-26) mg/dL Creatinine 0.87 (0.72-1.25) mg/dL Est GFR ( Amer) > 60 (> 60) Est GFR (Non-Af Amer) > 60 (> 60) BUN/Creatinine Ratio 8 (6-26) Glucose 86 (70-99) mg/dL Calculated Osmolality 283 (280-300) Calcium 9.0 (8.6-10.8) mg/dL Total Bilirubin 0.7 (0.2-1.2) mg/dL Direct Bilirubin 0.3 (0.0-0.5) mg/dL Indirect Bilirubin 0.4 (0.0-1.2) mg/dL AST 181 H (5-34) Units/L ALT 132 H (0-55) Units/L Alkaline Phosphatase 113 (38-126) Units/L Troponin I (0-0.03) ng/mL Serum Total Protein 8.7 H (6.0-8.3) g/dL Albumin 4.2 (3.5-5.0) g/dL Globulin 4.5 H (2.4-3.5) g/dL Albumin/Globulin Ratio 0.9 L (1.1-2.2) Urine Color (Yellow) Urine Clarity (Clear) Urine pH (5.0-8.0) pH Units Ur Specific [place] (1.010-1.025) Urine Protein (Neg-Trace) mg/dL Urine Glucose (UA) (Normal) mg/dL Urine Ketones (Negative) mg/dL Urine Blood (Negative) Urine Nitrite (Negative) Urine Bilirubin (Negative) Urine Urobilinogen (Normal) mg/dL Ur Leukocyte Esterase (Negative) Ur Culture Indicated? (NO) Urine Opiates Screen (Spviax=257) ng/mL Ur Barbiturates Screen (Wzbvsq=370) ng/mL Ur Phencyclidine Scrn (Cutoff=25) ng/mL Ur Amphetamines Screen (Cnzlcb=3132) ng/mL U Benzodiazepines Scrn (Zlyttl=079) ng/mL Urine Cocaine Screen (Cutoff= 300) ng/mL U Marijuana (THC) Screen (Cutoff = 50) ng/mL Ethyl Alcohol 106 H (0-10) mg/dL Specimen Rejected Hemolyzed 09/27/17 09/27/17 09/27/17 Range/Units 11:13 11:25 11:25 WBC (4.3-11.1) K/mcL RBC (4.19-5.50) M/mcL Hgb (12.9-16.9) g/dL Hct (37.5-50.1) % MCV (83.0-100.0) fL MCH (28.0-33.3) pg MCHC (31.6-35.5) g/dL RDW (11.5-14.5) % Plt Count (140-400) K/mcL MPV (9.4-12.4) fL Immature Gran % (0-4) % Seg Neutrophils % % Lymphocytes % % Monocytes % % Eosinophils % % Basophils % % Neutrophils # (1.6-8.9) K/mcL Lymphocytes # (0.6-4.6) K/mcL Monocytes # (0.0-1.3) K/mcL Eosinophils # (0.0-0.6) K/mcL Basophils # (0.0-0.2) K/mcL Sodium (136-145) mEq/L Potassium (3.5-4.5) mEq/L Chloride (98-109) mEq/L Carbon Dioxide (19-29) mEq/L BUN (8-26) mg/dL Creatinine (0.72-1.25) mg/dL Est GFR ( Amer) (> 60) Est GFR (Non-Af Amer) (> 60) BUN/Creatinine Ratio (6-26) Glucose (70-99) mg/dL Calculated Osmolality (280-300) Calcium (8.6-10.8) mg/dL Total Bilirubin (0.2-1.2) mg/dL Direct Bilirubin (0.0-0.5) mg/dL Indirect Bilirubin (0.0-1.2) mg/dL AST (5-34) Units/L ALT (0-55) Units/L Alkaline Phosphatase (38-126) Units/L Troponin I 0.01 (0-0.03) ng/mL Serum Total Protein (6.0-8.3) g/dL Albumin (3.5-5.0) g/dL Globulin (2.4-3.5) g/dL Albumin/Globulin Ratio (1.1-2.2) Urine Color Yellow (Yellow) Urine Clarity Clear (Clear) Urine pH 7.0 (5.0-8.0) pH Units Ur Specific [place] 1.008 L (1.010-1.025) Urine Protein Negative (Neg-Trace) mg/dL Urine Glucose (UA) Normal (Normal) mg/dL Urine Ketones Trace H (Negative) mg/dL Urine Blood Negative (Negative) Urine Nitrite Negative (Negative) Urine Bilirubin Negative (Negative) Urine Urobilinogen Normal (Normal) mg/dL Ur Leukocyte Esterase Negative (Negative) Ur Culture Indicated? NO (NO) Urine Opiates Screen Negative (Yyeyev=643) ng/mL Ur Barbiturates Screen Negative (Puokrc=509) ng/mL Ur Phencyclidine Scrn Negative (Cutoff=25) ng/mL Ur Amphetamines Screen Negative (Pofxuh=1413) ng/mL U Benzodiazepines Scrn Positive H (Ngzcxt=586) ng/mL Urine Cocaine Screen Negative (Cutoff= 300) ng/mL U Marijuana (THC) Screen Negative (Cutoff = 50) ng/mL Ethyl Alcohol (0-10) mg/dL Specimen Rejected - Radiology Data Radiology results reviewed: Yes I reviewed the patient's radiology results. - EKG Data EKG #1 EKG attestation: Yes I reviewed and interpreted this EKG. EKG shows normal: sinus rhythm Rate: normal Rhythm: NSR [place]/QRS: normal When compared to previous EKG there are: no significant changes Interpretation: no acute changes Attestation Statement - Attestation Attestation: I examined this patient and my medical decision-making was reviewed with the Resident Physician. I agree with the documented findings, disposition and treatment plan as described except to the extent set forth below. Patient presents with concern for alcohol L. He has no desire to quit drinking at this time. He had a recent admission for detoxification. The only reason he is here today is because he has no access to alcohol because he has insufficient funds to purchase alcohol. He does drink a significant amount of alcohol. He was given a beer on arrival to combat symptoms of early withdrawal. Given his large quantity of alcohol intake he was transitioned to lorazepam. He will be admitted for monitoring of alcohol withdrawal.
[2017-09-27] MEDS ORDERED: 0.9 % Sodium Chloride 1,000 ML IVC ONE (10:28)
[2017-09-27] MEDS ORDERED: Thiamine (B-1) 100 MG in D5% in Water 50 ML IVPB ONE (10:34)
[2017-09-27] MEDS ORDERED: *HR* LORazepam 2 MG/ML VIAL IVP ONE ×2 (10:44→11:15)
[2017-09-27 10:57] LABS: Basophils % 0.8 %; Eosinophils # 0.1 K/mcL (0.0-0.6); Eosinophils % 1.5 %; Hematocrit 41.7 % (37.5-50.1); Hemoglobin 13.5 g/dL (12.9-16.9); Immature Granulocytes % 0.2 % (0-4); Lymphocytes # 2.1 K/mcL (0.6-4.6); Lymphocytes % 39.8 %; Mean Corpuscular HGB Conc 32.4 g/dL (31.6-35.5); Mean Corpuscular Hemoglobin 26.5 pg (28.0-33.3); Mean Corpuscular Volume 81.9 fL (83.0-100.0); Mean Platelet Volume 8.9 fL (9.4-12.4); Monocytes # 0.3 K/mcL (0.0-1.3); Monocytes % 5.1 %; Neutrophils # 2.8 K/mcL (1.6-8.9); Platelet Count 223 K/mcL (140-400); Red Blood Count 5.09 M/mcL (4.19-5.50); Red Cell Distribution Width 17.2 % (11.5-14.5); Segmented Neutrophils % 52.6 %
[2017-09-27] MEDS ORDERED: Ibuprofen 600 MG TABLET PO ONE (11:10)
[2017-09-27] MEDS: Renal Vitamin 1 MG CAPSULE PO SCH (11:27)
[2017-09-27 11:32] LABS: Alanine Aminotransferase 132 Units/L (0-55); Albumin 4.2 g/dL (3.5-5.0); Albumin/Globulin Ratio 0.9 (1.1-2.2); Alkaline Phosphatase 113 Units/L (38-126); Aspartate Amino Transferase 181 Units/L (5-34); BUN/Creatinine Ratio 8 (6-26); Bilirubin,Direct 0.3 mg/dL (0.0-0.5); Bilirubin,Indirect 0.4 mg/dL (0.0-1.2); Bilirubin,Total 0.7 mg/dL (0.2-1.2); Blood Urea Nitrogen 7 mg/dL (8-26); Carbon Dioxide 15 mEq/L (19-29); Chloride 105 mEq/L (98-109); Ethanol 106 mg/dL (0-10); Globulin 4.5 g/dL (2.4-3.5); Glucose 86 mg/dL (70-99); Osmolality,Calculated 283 (280-300); Potassium 3.5 mEq/L (3.5-4.5); Sodium 138 mEq/L (136-145); Total Protein 8.7 g/dL (6.0-8.3); eGFR For African Americans > 60 (> 60); eGFR For Non-African Americans > 60 (> 60)
[2017-09-27 11:34] LABS: Bilirubin,Urine Negative (Negative); Blood,Urine Negative (Negative); Clarity,Urine Clear (Clear); Color,Urine Yellow (Yellow); Glucose,Urine (UA) Normal (Normal); Ketones,Urine Trace mg/dL (Negative); Leukocyte Esterase,Urine Negative (Negative); Nitrite,Urine Negative (Negative); Protein,Urine Negative (Neg-Trace); Specific Gravity,Urine 1.008 (1.010-1.025); Urobilinogen,Urine Normal (Normal)
[2017-09-27 11:40] LABS: Amphetamine Screen,Urine Negative ng/mL (Cutoff=1000); Barbiturate Screen,Urine Negative ng/mL (Cutoff=200); Benzodiazepines Screen,Urine Positive ng/mL (Cutoff=200); Cannabinoid Screen,Urine Negative ng/mL (Cutoff = 50); Cocaine Screen,Urine Negative ng/mL (Cutoff= 300); Opiate Screen,Urine Negative ng/mL (Cutoff=300); Phencyclidine Screen,Urine Negative ng/mL (Cutoff=25)
--- NOTE | 2017-09-27 13:26 | Internal Med History&Physical ---
Date of Encounter: 09/27/17 Time of Encounter: 13:00 Assessment and Plan (1) Alcohol withdrawal Current visit: Yes Status: Acute -Patient reports of shaking with difficulty ambulating/ataxia and falls. -Patient reports of drinking a half a gallon of 40% proof vodka per day. -Will place patient on CIWA protocol. -Discussed with patient about entering alcohol rehabilitation program again at the [facility]; social work consulted. Qualifiers: Complication of substance-induced condition: uncomplicated Qualified Code(s ): F10.230 - Alcohol dependence with withdrawal, uncomplicated (2) Transaminitis Current visit: Yes Status: Acute -Secondary to alcohol dependence/abuse. -Right upper quadrant ultrasound on 05/2017 showed Fatty infiltration of the liver. (3) COPD (chronic obstructive pulmonary disease) Current visit: No Status: Chronic -Stable; continue medications. Qualifiers: Emphysema type: unspecified Qualified Code(s): J43.9 - Emphysema, unspecified (4) Essential hypertension Current visit: No Status: Chronic -Blood pressure elevated but suspect secondary to alcohol withdrawal. -Patient also admits of not taking blood pressure medications as directed. -Continue home medications. (5) Tobacco abuse Current visit: No Status: Chronic (6) Mood disorder Current visit: No Status: Acute -Continue home medications. (7) DVT prophylaxis Current visit: No Status: Acute -Subcutaneous heparin. Internal Medicine - H&P: HPI History of present illness: Mr. Chen is a 62 year old male Past Med Surg Social Fam HX - Past Medical History Medical history: COPD, GERD, hypertension, migraine, myocardial infarction, other Psychiatric history: anxiety, bipolar, depression, schizophrenia - Past Surgical History Surgical History: appendectomy, cholecystectomy, other - Social History Smoking Status: Current every day smoker Smokeless Tobacco Status: No Alcohol use: heavy Drug use: none - Family History Mother Adopted: No Family Member Ethnicity: Non- Living Status: Still Living Hx Family Cardiac Disorders: Yes Hx Family Respiratory Disorders: No Hx Family Cancer: No Hx Family GI Disorders: No Hx Family Endocrine Disorder: No Hx Family Neuromuscular Disorders: No Hx Family Neurologic Disorders: Yes Hx Family HEENT Disorders: No Hx Family Autoimmune Disorders: No Father Living Status: Internal Medicine - H&P: Meds Albuterol Sulfate [Proair Hfa] 2 puff IH Q4H PRN 12/21/16 [History] Quetiapine Fumarate [Seroquel] 300 mg PO HS 12/21/16 [History] Lipase/Protease/Amylase [[place] Dr 12,000 Units Capsule] 3 cap PO TIDWM 03/15/17 [History] Omeprazole [PriLOSEC] 20 mg PO DAILY 03/15/17 [History] Amlodipine Besylate 10 mg PO DAILY 03/27/17 [History] Budesonide/Formoterol 160/4.5 [Symbicort 160/4.5] 1 puff IH BIDR 03/27/17 [ History] Cyanocobalamin (Vitamin B-12) [Vitamin B-12] 500 mcg PO DAILY 06/03/17 [History] Divalproex (24 HR) [Depakote ER (24 HR)] 1,250 mg PO HS 06/03/17 [History] traZODone [TraZODone] 50 mg PO TID 06/29/17 [History] Amitriptyline [Elavil] 25 mg PO HS #30 tablet 08/17/17 [Rx] Gabapentin [Neurontin] 400 mg PO TID #30 capsule 08/17/17 [Rx] Pregabalin [Lyrica] 150 mg PO BID 09/13/17 [History] 3 Allergy/AdvReac Type Severity Reaction Status Date / Time Buspirone [From BuSpar] AdvReac See Verified 09/13/17 06:46 Comments tramadol AdvReac See Verified 09/13/17 06:46 Comments All Systems PM: A 10-system review of systems was performed and is negative for pertinent findings except as documented above in the HPI. - Constitutional Vitals: Temp Pulse Resp BP Pulse Ox 97.8 F 89 16 161/91 97 09/27/17 13:00 09/27/17 11:37 09/27/17 13:00 09/27/17 13:00 09/27/17 11:37 General appearance: Present: A&O X 3, no acute distress - Head Head exam: Present: atraumatic - Eye Eye exam: Present: normal appearance - ENT ENT exam: Present: mucous membranes dry - Respiratory Respiratory exam: Present: CTAB. Absent: accessory muscle use, rales, rhonchi, wheezes - Cardiovascular Cardiovascular exam: Present: RRR, +S1, +S2. Absent: diastolic murmur, gallop, rubs, systolic murmur - GI/Abdominal GI/Abdominal exam: Present: normal bowel sounds, soft, no peritoneal signs. Absent: distended, tenderness - Extremities Exam Extremities exam: Absent: pedal edema - Neurological Exam Neurological exam: Present: CN II-XII intact, oriented X3 - Psychiatric Psychiatric exam: Present: normal mood - Skin Skin exam: Present: normal color Internal Med - H&P Results - Labs CBC & Chem 7: 09/27/17 10:50 09/27/17 11:13
[2017-09-27] MEDS ORDERED: Naloxone 0.4 MG/ML INJ IVP PRN (13:44)
[2017-09-27] MEDS ORDERED: NON-FORMULARY MEDICATION 1 EACH EACH (Pregabalin [Lyrica] 150 MG) PO SCH (13:45)
[2017-09-27] MEDS: *HR* LORazepam 2 MG/ML VIAL IVP PRN ×2 (14:29→19:36)
[2017-09-27] MEDS: Nicotine 21 MG PATCH.TD24 TD SCH (14:29)
[2017-09-27] MEDS: *HR* Heparin 5,000 UNIT/ML VIAL SQ SCH ×2 (14:29→20:58)
[2017-09-27] MEDS: amLODIPine 5 MG TABLET PO SCH (14:30)
[2017-09-27] MEDS: Thiamine (B-1) 100 MG TABLET PO SCH (14:30)
[2017-09-27] MEDS: traZODone 50 MG TABLET PO SCH ×2 (14:30→20:45)
[2017-09-27] MEDS: Vitamin B Complex/Vit C/Vit E 1 EACH TABLET PO SCH (14:30)
[2017-09-27] MEDS: Budesonide/Formoterol 160/4.5 MDI IH SCH ×2 (15:32→19:50)
[2017-09-27] MEDS ORDERED: Ketorolac 30 MG/ML VIAL IVP ONE (15:36)
[2017-09-27] MEDS: Gabapentin 300 MG CAPSULE PO SCH ×2 (17:34→20:45)
[2017-09-27] MEDS: Divalproex (24 HR) 250 MG TABLET PO SCH (20:41)
[2017-09-28] MEDS: *HR* Heparin 5,000 UNIT/ML VIAL SQ SCH ×3 (05:59→21:18)
[2017-09-28] MEDS ORDERED: Water for inj. (sterile) 10 ML IV ONE ×2 (07:52→14:50)
[2017-09-28] MEDS: Cyanocobalamin (B-12) 1,000 MCG TABLET PO SCH (08:02)
[2017-09-28] MEDS: Renal Vitamin 1 MG CAPSULE PO SCH (08:02)
[2017-09-28] MEDS: Vitamin B Complex/Vit C/Vit E 1 EACH TABLET PO SCH (08:02)
[2017-09-28] MEDS: Gabapentin 300 MG CAPSULE PO SCH ×3 (08:03→19:59)
[2017-09-28] MEDS: *HR* LORazepam 2 MG/ML VIAL IVP PRN ×3 (08:03→23:06)
[2017-09-28] MEDS: traZODone 50 MG TABLET PO SCH ×3 (08:03→19:59)
[2017-09-28] MEDS: Thiamine (B-1) 100 MG TABLET PO SCH (08:03)
[2017-09-28] MEDS: amLODIPine 5 MG TABLET PO SCH (08:03)
[2017-09-28] MEDS: Folic Acid 1 MG TABLET PO SCH (08:03)
[2017-09-28] MEDS: Nicotine 21 MG PATCH.TD24 TD SCH (08:14)
[2017-09-28] MEDS: Budesonide/Formoterol 160/4.5 MDI IH SCH ×2 (08:14→20:10)
[2017-09-28] MEDS: hydrOXYzine pamoate 25 MG CAPSULE PO PRN ×2 (11:21→23:35)
[2017-09-28] MEDS: *HR* Promethazine 25 MG/ML VIAL IVP PRN (11:25)
--- NOTE | 2017-09-28 15:22 | Electrocardiograph Report ---
[address] [address] Test Date: 2017-09-27 Pat Name: Lauri Chen Department: 104 Room: 3B21 Gender: M Cop Breaker: : 1955 Requested By: Jeff Petersen Order Number: [id number] Reading MD: Kenyon Dinero Measurements Intervals [place] Rate: 86 P: 38 CO: 174 QRS: -11 QRSD: 78 T: 43 QT: 354 QTc: 397 Interpretive Statements SINUS RHYTHM Electronically Signed On 09-28-2017 15:20:59 EST by Kenyon Dinero
[2017-09-28] MEDS ORDERED: *HR* Morphine 2 MG/ML SYRINGE IVP ONE (19:33)
[2017-09-28] MEDS: Divalproex (24 HR) 250 MG TABLET PO SCH (19:59)
--- NOTE | 2017-09-29 00:33 | Internal Med Progress Note ---
Date of Encounter: 09/28/17 Time of Encounter: 12:30 - Assessment and plan (1) Alcohol withdrawal Current Visit: No Status: Acute Assessment and plan: Continue CIWA protocol. Still having tremors despite Ativan. Will add Vistaril prn. Qualifiers: Complication of substance-induced condition: uncomplicated Qualified Code(s ): F10.230 - Alcohol dependence with withdrawal, uncomplicated (2) Bipolar disorder Current Visit: No Status: Chronic Assessment and plan: continue home medications Qualifiers: Active/Remission status: currently active Current bipolar episode type: depressed Psychotic features: without psychotic features Qualified Code(s): F31.4 - Bipolar disorder, current episode depressed, severe, without psychotic features (3) COPD (chronic obstructive pulmonary disease) Current Visit: No Status: Chronic Qualifiers: Emphysema type: unspecified Qualified Code(s): J43.9 - Emphysema, unspecified (4) Coronary artery disease Current Visit: No Status: Chronic Qualifiers: Coronary Disease-Associated Artery/Lesion type: [place] artery [place] vs. transplanted heart: [place] heart Associated angina: with unspecified angina Qualified Code(s): I25.119 - Atherosclerotic heart disease of [place] coronary artery with unspecified angina pectoris (5) Essential hypertension Current Visit: No Status: Chronic (6) Transaminitis Current Visit: Yes Status: Acute Assessment and plan: Secondary to alcohol abuse. - Subjective Interval history: Patient is a 62 year old male who is a heavy drinker presents in alcohol withdrawal. Patient was given beer in ED for early signs of withdrawal and then started on lorazepam CIWA protocol. Today patient complains of most symptoms resolving except uncontrolled tremors and anxiety. He denies any hallucinations, LOC, n/v, diarrhea. - Constitutional Vitals: Temp Pulse Resp BP Pulse Ox 97.5 F L 73 16 128/81 95 09/28/17 23:40 09/28/17 23:40 09/28/17 23:40 09/28/17 23:40 09/28/17 23:40 General appearance: Present: A&O X 3, no acute distress Exam: - Head Head exam: Present: atraumatic - Eye Eye exam: Present: normal appearance - ENT ENT exam: Present: mucous membranes dry - Respiratory Respiratory exam: Present: CTAB. Absent: accessory muscle use, rales, rhonchi, wheezes - Cardiovascular Cardiovascular exam: Present: RRR, +S1, +S2. Absent: diastolic murmur, gallop, rubs, systolic murmur - GI/Abdominal GI/Abdominal exam: Present: normal bowel sounds, soft, no peritoneal signs. Absent: distended, tenderness - Extremities Exam Extremities exam: Absent: pedal edema - Neurological Exam Neurological exam: Present: CN II-XII intact, oriented X3 Tremors of bilateral upper extremities at rest that worsen with arm usage. - Psychiatric Psychiatric exam: Present: normal mood - Skin Skin exam: Present: normal color Internal Medicine: Result - Labs CBC & Chem 7: 09/27/17 10:50 09/27/17 11:13 Consult Discharge Plan - Plan Referrals: NONE,PCP [Primary Care Provider] -
[2017-09-29] MEDS: *HR* Heparin 5,000 UNIT/ML VIAL SQ SCH ×3 (06:10→21:55)
[2017-09-29] MEDS: hydrOXYzine pamoate 25 MG CAPSULE PO PRN ×2 (06:14→12:01)
[2017-09-29] MEDS: Budesonide/Formoterol 160/4.5 MDI IH SCH ×2 (07:24→19:54)
[2017-09-29] MEDS: Vitamin B Complex/Vit C/Vit E 1 EACH TABLET PO SCH (09:12)
[2017-09-29] MEDS: Gabapentin 300 MG CAPSULE PO SCH ×3 (09:12→21:52)
[2017-09-29] MEDS: Nicotine 21 MG PATCH.TD24 TD SCH (09:12)
[2017-09-29] MEDS: amLODIPine 5 MG TABLET PO SCH (09:12)
[2017-09-29] MEDS: Cyanocobalamin (B-12) 1,000 MCG TABLET PO SCH (09:13)
[2017-09-29] MEDS: Folic Acid 1 MG TABLET PO SCH (09:13)
[2017-09-29] MEDS: Thiamine (B-1) 100 MG TABLET PO SCH (09:13)
[2017-09-29] MEDS: Renal Vitamin 1 MG CAPSULE PO SCH (09:13)
[2017-09-29] MEDS: traZODone 50 MG TABLET PO SCH ×3 (09:13→21:53)
--- NOTE | 2017-09-29 13:41 | Internal Med Progress Note ---
Date of Encounter: 09/29/17 Time of Encounter: 08:00 - Assessment and plan (1) Alcohol withdrawal Current Visit: No Status: Acute Assessment and plan: Continue CIWA protocol. Still having tremors and headaches. He is on Vistaril as well. Continue with folic acid multivitamins and thiamine. Qualifiers: Complication of substance-induced condition: uncomplicated Qualified Code(s ): F10.230 - Alcohol dependence with withdrawal, uncomplicated (2) Pancreatic insufficiency Current Visit: No Status: Chronic Assessment and plan: Continue with Creon. (3) Hypertension Current Visit: No Status: Chronic Assessment and plan: Blood pressure stable. Continue with Norvasc. Qualifiers: Hypertension type: other secondary hypertension Qualified Code(s): I15.8 - Other secondary hypertension (4) COPD (chronic obstructive pulmonary disease) Current Visit: No Status: Chronic Assessment and plan: Patient is not in exacerbation. We will keep him on his inhalers. He is on albuterol and Symbicort Qualifiers: Emphysema type: unspecified Qualified Code(s): J43.9 - Emphysema, unspecified (5) DVT prophylaxis Current Visit: No Status: Acute Assessment and plan: Heparin subcutaneous - Subjective Interval history: Patient is being treated for a cold girl. This morning is complaining of right sided flank pain. It is very tender to palpate. He has been afebrile. I have asked him if he had a fall but he is not aware. However the patient has a history of alcohol intoxication and I am not exactly sure if he had fell while intoxicated and neither is the patient aware of anything like that. - Constitutional Vitals: Temp Pulse Resp BP Pulse Ox 98.3 F 93 17 131/84 97 09/29/17 10:43 09/29/17 10:43 09/29/17 10:43 09/29/17 10:43 09/29/17 10:43 General appearance: Present: A&O X 3, no acute distress Exam: GEN: NAD CVS: RRR. S1, S2, No m/r/g RESP: CTAB ABD: Soft, NT, ND, +BS EXT: No edema. 2+ DP, No rashes. He is very tender to palpate at the right side of the chest towards the axilla NEURO: Nonfocal Internal Medicine: Result - Labs CBC & Chem 7: 09/27/17 10:50 09/27/17 11:13 - Impressions Impressions Ribs X-Ray 09/29/17 08:03 IMPRESSION: 1. No right rib fracture. 2. Small right pleural effusion. D/ / Bro Rayo MD / Bro Rayo MD Interpreting Provider: Bro Rayo MD Consult Discharge Plan - Plan Referrals: NONE,PCP [Primary Care Provider] -
[2017-09-29] MEDS: *HR* LORazepam 2 MG/ML VIAL IVP PRN ×2 (14:42→22:09)
[2017-09-29] MEDS: Divalproex (24 HR) 250 MG TABLET PO SCH (21:53)
[2017-09-30] MEDS: *HR* Heparin 5,000 UNIT/ML VIAL SQ SCH ×3 (04:33→21:10)
[2017-09-30 05:03] LABS: Immature Granulocytes % 0.3 % (0-4); Mean Corpuscular HGB Conc 31.3 g/dL (31.6-35.5); Mean Corpuscular Hemoglobin 26.9 pg (28.0-33.3); Mean Platelet Volume 9.7 fL (9.4-12.4); Platelet Count 110 K/mcL (140-400); Red Blood Count 4.42 M/mcL (4.19-5.50); Red Cell Distribution Width 17.4 % (11.5-14.5); Segmented Neutrophils % 64.1 %
[2017-09-30 05:04] LABS: Basophils % 0.3 %; Eosinophils # 0.1 K/mcL (0.0-0.6); Eosinophils % 1.8 %; Lymphocytes # 0.9 K/mcL (0.6-4.6); Monocytes # 0.2 K/mcL (0.0-1.3); Monocytes % 5.5 %; Neutrophils # 2.1 K/mcL (1.6-8.9)
[2017-09-30 05:05] LABS: Hemoglobin 11.9 g/dL (12.9-16.9)
[2017-09-30 05:13] LABS: BUN/Creatinine Ratio 17 (6-26); Blood Urea Nitrogen 16 mg/dL (8-26); Calcium 9.4 mg/dL (8.6-10.8); Carbon Dioxide 18 mEq/L (19-29); Chloride 107 mEq/L (98-109); Glucose 115 mg/dL (70-99); Osmolality,Calculated 286 (280-300); Sodium 137 mEq/L (136-145); eGFR For African Americans > 60 (> 60); eGFR For Non-African Americans > 60 (> 60)
[2017-09-30] MEDS: Budesonide/Formoterol 160/4.5 MDI IH SCH ×2 (07:47→20:07)
[2017-09-30] MEDS ORDERED: *HR* LORazepam 2 MG/ML VIAL IVP PRN (08:27)
[2017-09-30] MEDS: Folic Acid 1 MG TABLET PO SCH (09:15)
[2017-09-30] MEDS: Cyanocobalamin (B-12) 1,000 MCG TABLET PO SCH (09:15)
[2017-09-30] MEDS: Vitamin B Complex/Vit C/Vit E 1 EACH TABLET PO SCH (09:15)
[2017-09-30] MEDS: Renal Vitamin 1 MG CAPSULE PO SCH (09:15)
[2017-09-30] MEDS: Thiamine (B-1) 100 MG TABLET PO SCH (09:15)
[2017-09-30] MEDS: Gabapentin 300 MG CAPSULE PO SCH ×3 (09:16→21:09)
[2017-09-30] MEDS: traZODone 50 MG TABLET PO SCH ×3 (09:16→21:09)
[2017-09-30] MEDS: Nicotine 21 MG PATCH.TD24 TD SCH (09:16)
[2017-09-30] MEDS: amLODIPine 5 MG TABLET PO SCH (09:16)
[2017-09-30] MEDS ORDERED: Water for inj. (sterile) 10 ML IV ONE (09:23)
--- NOTE | 2017-09-30 12:46 | Internal Med Progress Note ---
Date of Encounter: 09/30/17 Time of Encounter: 12:43 - Assessment and plan (1) Alcohol withdrawal Current Visit: Yes Status: Acute Assessment and plan: Discontinue Ativan, change to Librium. Patient reports taking Vistaril at home because he believes he does not work. Educated about compliance. Continue with folic acid, multivitamins and thiamine.. Qualifiers: Complication of substance-induced condition: uncomplicated Qualified Code(s ): F10.230 - Alcohol dependence with withdrawal, uncomplicated (2) COPD (chronic obstructive pulmonary disease) Current Visit: Yes Status: Chronic Assessment and plan: Not in exacerbation. Continue inhalers. Qualifiers: COPD type: unspecified COPD Qualified Code(s): J44.9 - Chronic obstructive pulmonary disease, unspecified (3) DVT prophylaxis Current Visit: Yes Status: Acute Assessment and plan: Heparin subcutaneous (4) Hypertension Current Visit: Yes Status: Chronic Assessment and plan: Blood pressure stable. Continue with Norvasc. Qualifiers: Hypertension type: essential hypertension Qualified Code(s): I10 - Essential (primary) hypertension (5) Pancreatic insufficiency Current Visit: Yes Status: Chronic Assessment and plan: Continue with Creon. (6) Rib pain on right side Current Visit: No Status: Acute - Subjective Interval history: 62-year-old male admitted and being managed for alcohol withdrawal. He has a past medical history of COPD and pancreatic insufficiency. He denies new complaints. We will discontinue intravenous Ativan as his requirement for rate has decreased. We will start on Librium Labs show chronic stable pancytopenia, as well as chronic mild metabolic acidosis - Constitutional Vitals: Temp Pulse Resp BP Pulse Ox 97.7 F 93 17 128/83 96 09/30/17 11:51 09/30/17 11:51 09/30/17 11:51 09/30/17 11:51 09/30/17 11:51 General appearance: Present: A&O X 3, pleasant, no acute distress - Head Head exam: Present: atraumatic, normocephalic - Eye Eye exam: Present: PERRL, conjuntiva pink, sclera anicteric Pupils: Present: PERRL - Neck Neck exam general surgery: Present: supple, trachea midline. Absent: lymphadenopathy - Respiratory Respiratory exam: Present: CTAB. Absent: accessory muscle use, rales, rhonchi, wheezes - Cardiovascular Cardiovascular exam: Present: RRR, +S1, +S2. Absent: diastolic murmur, gallop, rubs, systolic murmur - GI/Abdominal GI/Abdominal exam: Present: normal bowel sounds, soft, no peritoneal signs. Absent: distended, tenderness - Extremities Exam Extremities exam: Present: warm, radial pulses palpable and symmetrical. Absent : calf tenderness, cyanotic, pedal edema - Neurological Exam Neurological exam: Present: alert, CN II-XII intact, oriented X3, no focal deficits. Absent: pronater drift, facial droop, speech deficit - Skin Skin exam: Present: dry, intact Internal Medicine: Result - Labs CBC & Chem 7: 09/30/17 04:49 09/30/17 04:49 Labs: Short CBC 09/30/17 Range/Units 04:49 WBC 3.3 L (4.3-11.1) K/mcL Hgb 11.9 L D (12.9-16.9) g/dL Hct 38.0 (37.5-50.1) % Plt Count 110 L D (140-400) K/mcL Neutrophils # 2.1 (1.6-8.9) K/mcL BMP 09/30/17 04:49 Sodium 137 Potassium 4.0 Chloride 107 Carbon Dioxide 18 L BUN 16 Creatinine 0.94 Glucose 115 H Calcium 9.4 Consult Discharge Plan - Plan Referrals: NONE,PCP [Primary Care Provider] -
[2017-09-30] MEDS ORDERED: Simethicone 80 MG TAB.CHEW PO ONE ×2 (17:23→17:40)
[2017-09-30] MEDS: hydrOXYzine pamoate 25 MG CAPSULE PO PRN (17:53)
[2017-09-30] MEDS: *HR* Promethazine 25 MG/ML VIAL IVP PRN (21:09)
[2017-09-30] MEDS: Divalproex (24 HR) 250 MG TABLET PO SCH (21:09)
[2017-09-30] MEDS ORDERED: Ketorolac 15 MG/ML VIAL IVP ONE (23:29)
[2017-09-30] MEDS ORDERED: Ondansetron 4 MG/2 ML VIAL IVP ONE (23:48)
[2017-10-01] MEDS ORDERED: Water for inj. (sterile) 10 ML IV ONE (00:04)
[2017-10-01] MEDS: *HR* LORazepam 2 MG/ML VIAL IVP PRN ×2 (00:06→09:55)
[2017-10-01] MEDS: *HR* Promethazine 25 MG/ML VIAL IVP PRN ×3 (01:43→10:53)
[2017-10-01 05:05] LABS: Basophils % 0.2 %; Eosinophils # 0.1 K/mcL (0.0-0.6); Eosinophils % 1.4 %; Hematocrit 40.5 % (37.5-50.1); Hemoglobin 12.7 g/dL (12.9-16.9); Immature Granulocytes % 0.4 % (0-4); Lymphocytes # 1.2 K/mcL (0.6-4.6); Lymphocytes % 22.6 %; Mean Corpuscular HGB Conc 31.4 g/dL (31.6-35.5); Mean Corpuscular Volume 86.2 fL (83.0-100.0); Mean Platelet Volume 9.7 fL (9.4-12.4); Monocytes # 0.4 K/mcL (0.0-1.3); Monocytes % 6.8 %; Neutrophils # 3.5 K/mcL (1.6-8.9); Platelet Count 114 K/mcL (140-400); Red Cell Distribution Width 17.6 % (11.5-14.5); Segmented Neutrophils % 68.6 %
[2017-10-01 05:11] LABS: BUN/Creatinine Ratio 18 (6-26); Blood Urea Nitrogen 19 mg/dL (8-26); Carbon Dioxide 23 mEq/L (19-29); Chloride 103 mEq/L (98-109); Glucose 99 mg/dL (70-99); Magnesium 2.1 mg/dL (1.6-2.6); Osmolality,Calculated 284 (280-300); Potassium 4.2 mEq/L (3.5-4.5); Sodium 136 mEq/L (136-145); eGFR For African Americans > 60 (> 60); eGFR For Non-African Americans > 60 (> 60)
[2017-10-01] MEDS: *HR* Heparin 5,000 UNIT/ML VIAL SQ SCH ×3 (05:19→21:19)
[2017-10-01] MEDS: Budesonide/Formoterol 160/4.5 MDI IH SCH ×2 (07:46→19:57)
[2017-10-01] MEDS: amLODIPine 5 MG TABLET PO SCH (08:28)
[2017-10-01] MEDS: Cyanocobalamin (B-12) 1,000 MCG TABLET PO SCH (08:28)
[2017-10-01] MEDS: Folic Acid 1 MG TABLET PO SCH (08:29)
[2017-10-01] MEDS: traZODone 50 MG TABLET PO SCH ×3 (08:29→21:16)
[2017-10-01] MEDS: Gabapentin 300 MG CAPSULE PO SCH ×3 (08:29→21:16)
[2017-10-01] MEDS: Thiamine (B-1) 100 MG TABLET PO SCH (08:29)
[2017-10-01] MEDS: Renal Vitamin 1 MG CAPSULE PO SCH (08:29)
[2017-10-01] MEDS: Vitamin B Complex/Vit C/Vit E 1 EACH TABLET PO SCH (08:30)
[2017-10-01] MEDS: Nicotine 21 MG PATCH.TD24 TD SCH (08:30)
[2017-10-01] MEDS ORDERED: Ondansetron 4 MG/2 ML VIAL IVP PRN (12:27)
--- NOTE | 2017-10-01 12:31 | Internal Med Progress Note ---
Date of Encounter: 10/01/17 Time of Encounter: 12:29 - Assessment and plan (1) Alcohol withdrawal Current Visit: Yes Status: Resolved Assessment and plan: D/C CIWA protocol Continue librium NO fever, tachycardia, no elevated blood pressure, no tongue tremors Continue M/T/F Per , patient has declined detox/rehab Qualifiers: Complication of substance-induced condition: uncomplicated Qualified Code(s ): F10.230 - Alcohol dependence with withdrawal, uncomplicated (2) COPD (chronic obstructive pulmonary disease) Current Visit: Yes Status: Chronic Assessment and plan: Not in exacerbation. Continue inhalers. Qualifiers: COPD type: unspecified COPD Qualified Code(s): J44.9 - Chronic obstructive pulmonary disease, unspecified (3) DVT prophylaxis Current Visit: Yes Status: Acute Assessment and plan: Heparin subcutaneous (4) Hypertension Current Visit: Yes Status: Chronic Assessment and plan: Blood pressure stable. Continue with Norvasc. Qualifiers: Hypertension type: essential hypertension Qualified Code(s): I10 - Essential (primary) hypertension (5) Pancreatic insufficiency Current Visit: Yes Status: Chronic Assessment and plan: Continue with Creon. (6) Rib pain on right side Current Visit: Yes Status: Acute Assessment and plan: Xray negative Tylenol prn (7) Gastritis Current Visit: Yes Status: Acute Assessment and plan: Patient with nausea/vomiting Continue supportive care with IVF and antiemetics Diet as tolerated Obtain abdomen/pelvis CT No indication for antibiotics as at now, no diarrhea, continue to monitor Qualifiers: Gastritis type: unspecified gastritis Chronicity: unspecified Gastritis bleeding: without bleeding Qualified Code(s): K29.70 - Gastritis, unspecified , without bleeding - Subjective Interval history: 62-year-old male admitted and being managed for alcohol withdrawal. He has a past medical history of COPD and pancreatic insufficiency. He denies new complaints. Today, patient is having nausea and vomiting, he also states he us having headaches No photophobia, no neck stiffness, no skin rash He is also complaining o RLQ pain, he is tender to palpation, no diarrhea, no fever, no guarding, no evidence of peritonitis His labs this morning are normal , including Mag - Constitutional Vitals: Temp Pulse Resp BP Pulse Ox 98.4 F 93 16 131/91 95 10/01/17 11:42 10/01/17 11:42 10/01/17 11:42 10/01/17 11:42 10/01/17 11:42 General appearance: Present: mild distress, A&O X 3, pleasant - Head Head exam: Present: atraumatic, normocephalic - Eye Eye exam: Present: PERRL, conjuntiva pink, sclera anicteric Pupils: Present: PERRL - Neck Neck exam general surgery: Present: supple, trachea midline. Absent: lymphadenopathy - Respiratory Respiratory exam: Present: CTAB. Absent: accessory muscle use, rales, rhonchi, wheezes - GI/Abdominal GI/Abdominal exam: Absent: distended, guarding, hernia Additional comments: RLQ and suprapubic tenderness. NO masses palpable BS present in all quadrants - Extremities Exam Extremities exam: Present: warm, radial pulses palpable and symmetrical. Absent : calf tenderness, cyanotic, pedal edema - Neurological Exam Neurological exam: Present: alert, CN II-XII intact, oriented X3, no focal deficits. Absent: pronater drift, facial droop, speech deficit - Skin Skin exam: Present: dry, intact Internal Medicine: Result - Labs CBC & Chem 7: 10/01/17 04:39 10/01/17 04:39 Labs: Short CBC 10/01/17 Range/Units 04:39 WBC 5.1 D (4.3-11.1) K/mcL Hgb 12.7 L (12.9-16.9) g/dL Hct 40.5 (37.5-50.1) % Plt Count 114 L (140-400) K/mcL Neutrophils # 3.5 (1.6-8.9) K/mcL BMP 10/01/17 04:39 Sodium 136 Potassium 4.2 Chloride 103 Carbon Dioxide 23 BUN 19 Creatinine 1.06 Glucose 99 Calcium 10.0 Consult Discharge Plan - Plan Referrals: NONE,PCP [Primary Care Provider] -
[2017-10-01] MEDS: 0.9 % Sodium Chloride 1,000 ML IVC SCH (13:53)
[2017-10-01] MEDS ORDERED: *HR* Morphine 2 MG/ML SYRINGE IVP ONE (14:42)
[2017-10-01] MEDS: hydrOXYzine pamoate 25 MG CAPSULE PO PRN (17:17)
[2017-10-01] MEDS: Divalproex (24 HR) 250 MG TABLET PO SCH (21:16)
[2017-10-02] MEDS: 0.9 % Sodium Chloride 1,000 ML IVC SCH ×2 (05:02→07:52)
[2017-10-02] MEDS: *HR* Heparin 5,000 UNIT/ML VIAL SQ SCH ×3 (05:03→20:26)
[2017-10-02] MEDS: Budesonide/Formoterol 160/4.5 MDI IH SCH ×2 (07:52→19:41)
[2017-10-02] MEDS: Nicotine 21 MG PATCH.TD24 TD SCH (07:53)
[2017-10-02] MEDS: Cyanocobalamin (B-12) 1,000 MCG TABLET PO SCH (07:54)
[2017-10-02] MEDS: Gabapentin 300 MG CAPSULE PO SCH ×3 (07:54→20:26)
[2017-10-02] MEDS: Renal Vitamin 1 MG CAPSULE PO SCH (07:55)
[2017-10-02] MEDS: Vitamin B Complex/Vit C/Vit E 1 EACH TABLET PO SCH (07:55)
[2017-10-02] MEDS: amLODIPine 5 MG TABLET PO SCH (07:55)
[2017-10-02] MEDS: Thiamine (B-1) 100 MG TABLET PO SCH (07:55)
[2017-10-02] MEDS: traZODone 50 MG TABLET PO SCH ×3 (07:55→20:26)
[2017-10-02] MEDS: Folic Acid 1 MG TABLET PO SCH (07:55)
--- NOTE | 2017-10-02 10:20 | Internal Med Progress Note ---
Date of Encounter: 10/02/17 Time of Encounter: 09:35 - Assessment and plan (1) Alcohol withdrawal Current Visit: Yes Status: Resolved Assessment and plan: D/C CIWA protocol Continue librium NO fever, tachycardia, no elevated blood pressure, no tongue tremors Continue M/T/F Per , patient has declined detox/rehab Qualifiers: Complication of substance-induced condition: uncomplicated Qualified Code(s ): F10.230 - Alcohol dependence with withdrawal, uncomplicated (2) COPD (chronic obstructive pulmonary disease) Current Visit: Yes Status: Chronic Assessment and plan: Not in exacerbation. Continue inhalers. Qualifiers: COPD type: unspecified COPD Qualified Code(s): J44.9 - Chronic obstructive pulmonary disease, unspecified (3) DVT prophylaxis Current Visit: Yes Status: Acute Assessment and plan: Heparin subcutaneous (4) Hypertension Current Visit: Yes Status: Chronic Assessment and plan: Blood pressure stable. Continue with Norvasc. Qualifiers: Hypertension type: essential hypertension Qualified Code(s): I10 - Essential (primary) hypertension (5) Pancreatic insufficiency Current Visit: Yes Status: Chronic Assessment and plan: Continue with Creon. (6) Rib pain on right side Current Visit: Yes Status: Acute Assessment and plan: Xray negative Tylenol prn (7) Gastritis Current Visit: Yes Status: Resolved Assessment and plan: Resolved D/C IVF Observe for one more day Qualifiers: Gastritis type: unspecified gastritis Chronicity: unspecified Gastritis bleeding: without bleeding Qualified Code(s): K29.70 - Gastritis, unspecified , without bleeding (8) Gastroenteritis Current Visit: Yes Status: Resolved Assessment and plan: Possibly viral Will send stool for work up NO diarrhea at this time - Subjective Interval history: 62-year-old male admitted and being managed for alcohol withdrawal. He has a past medical history of COPD and pancreatic insufficiency. His work up with abd/pelvis CT showed gstroenteritis He reports this morning, he is able to tolerate po His headaches have resolved and he is able to keep his feeds down Labs are unremarkable Anticipate d/c a.m, if patient continues to improve - Constitutional Vitals: Temp Pulse Resp BP Pulse Ox 97.7 F 89 12 108/73 95 10/02/17 07:25 10/02/17 07:25 10/02/17 07:53 10/02/17 07:25 10/02/17 07:53 General appearance: Present: A&O X 3, pleasant, no acute distress - Head Head exam: Present: atraumatic, normocephalic - Eye Eye exam: Present: PERRL, conjuntiva pink, sclera anicteric Pupils: Present: PERRL - Neck Neck exam general surgery: Present: supple, trachea midline. Absent: lymphadenopathy - Respiratory Respiratory exam: Present: CTAB. Absent: accessory muscle use, rales, rhonchi, wheezes - Cardiovascular Cardiovascular exam: Present: RRR, +S1, +S2. Absent: diastolic murmur, gallop, rubs, systolic murmur - GI/Abdominal GI/Abdominal exam: Present: normal bowel sounds, soft, no peritoneal signs. Absent: distended, tenderness - Extremities Exam Extremities exam: Present: warm, radial pulses palpable and symmetrical. Absent : calf tenderness, cyanotic, pedal edema - Neurological Exam Neurological exam: Present: alert, CN II-XII intact, oriented X3, no focal deficits. Absent: pronater drift, facial droop, speech deficit - Skin Skin exam: Present: dry, intact Internal Medicine: Result - Labs CBC & Chem 7: 10/01/17 04:39 10/01/17 04:39 - Impressions Impressions Abdomen/Pelvis CT 10/01/17 14:15 IMPRESSION: Gastroenteritis. Right nephrolithiasis. D/ / Evaristo Hines MD / Evaristo Hines MD Interpreting Provider: Evaristo Hines MD Consult Discharge Plan - Plan Referrals: NONE,PCP [Primary Care Provider] -
[2017-10-02] MEDS: hydrOXYzine pamoate 25 MG CAPSULE PO PRN (12:05)
[2017-10-02] MEDS ORDERED: Ibuprofen 400 MG TABLET PO ONE (17:59)
[2017-10-02] MEDS: Divalproex (24 HR) 250 MG TABLET PO SCH (20:26)
[2017-10-03] MEDS: *HR* Heparin 5,000 UNIT/ML VIAL SQ SCH (05:19)
[2017-10-03 07:05] VITALS: BP 116/74
[2017-10-03] MEDS: Gabapentin 300 MG CAPSULE PO SCH (08:48)
[2017-10-03] MEDS: Renal Vitamin 1 MG CAPSULE PO SCH (08:48)
[2017-10-03] MEDS: Vitamin B Complex/Vit C/Vit E 1 EACH TABLET PO SCH (08:49)
[2017-10-03] MEDS: Thiamine (B-1) 100 MG TABLET PO SCH (08:49)
[2017-10-03] MEDS: Folic Acid 1 MG TABLET PO SCH (08:49)
[2017-10-03] MEDS: amLODIPine 5 MG TABLET PO SCH (08:49)
[2017-10-03] MEDS: Cyanocobalamin (B-12) 1,000 MCG TABLET PO SCH (08:49)
[2017-10-03] MEDS: traZODone 50 MG TABLET PO SCH (08:50)
[2017-10-03] MEDS: Nicotine 21 MG PATCH.TD24 TD SCH (08:50)
--- NOTE | 2017-10-03 09:44 | Discharge Summary ---
Date of Encounter: 10/03/17 Time of Encounter: 09:43 - Discharge Diagnosis (1) Alcohol withdrawal Priority: Primary Status: Resolved Qualifiers: Complication of substance-induced condition: uncomplicated Qualified Code(s ): F10.230 - Alcohol dependence with withdrawal, uncomplicated (2) COPD (chronic obstructive pulmonary disease) Priority: Secondary Status: Chronic Qualifiers: COPD type: unspecified COPD Qualified Code(s): J44.9 - Chronic obstructive pulmonary disease, unspecified (3) DVT prophylaxis Priority: Secondary Status: Acute (4) Hypertension Priority: Secondary Status: Chronic Qualifiers: Hypertension type: essential hypertension Qualified Code(s): I10 - Essential (primary) hypertension (5) Pancreatic insufficiency Priority: Secondary Status: Chronic (6) Rib pain on right side Priority: Primary Status: Acute (7) Gastritis Priority: Secondary Status: Resolved Qualifiers: Gastritis type: unspecified gastritis Chronicity: unspecified Gastritis bleeding: without bleeding Qualified Code(s): K29.70 - Gastritis, unspecified , without bleeding (8) Gastroenteritis Priority: Secondary Status: Resolved - Discharge Medications Prescriptions: Chlordiazepoxide [Librium] 10 mg PO TID #30 capsule Folic Acid 1 mg PO DAILY #30 tablet Renal Vitamin [Renal Caps Softgel] 1 mg PO DAILY #30 capsule Thiamine (B-1) [Vitamin B-1] 100 mg PO DAILY #30 tablet Vitamin B Complex/Vit C/Vit E [Stresstab] 1 each PO DAILY #30 tablet Home Medications: Albuterol Sulfate [Proair Hfa] 2 puff IH Q4H PRN 12/21/16 [History] Quetiapine Fumarate [Seroquel] 300 mg PO HS 12/21/16 [History] Lipase/Protease/Amylase [Creon Dr 12,000 Units Capsule] 3 cap PO TIDWM 03/15/17 [History] Omeprazole [PriLOSEC] 20 mg PO DAILY 03/15/17 [History] Amlodipine Besylate 10 mg PO DAILY 03/27/17 [History] Budesonide/Formoterol 160/4.5 [Symbicort 160/4.5] 1 puff IH BIDR 03/27/17 [ History] Cyanocobalamin (Vitamin B-12) [Vitamin B-12] 500 mcg PO DAILY 06/03/17 [History] Divalproex (24 HR) [Depakote ER (24 HR)] 1,250 mg PO HS 06/03/17 [History] traZODone [TraZODone] 50 mg PO TID 06/29/17 [History] Amitriptyline [Elavil] 25 mg PO HS #30 tablet 08/17/17 [Rx] Gabapentin [Neurontin] 300 mg PO TID 09/27/17 [History] Chlordiazepoxide [Librium] 10 mg PO TID #30 capsule 10/03/17 [Rx] Folic Acid 1 mg PO DAILY #30 tablet 10/03/17 [Rx] Renal Vitamin [Renal Caps Softgel] 1 mg PO DAILY #30 capsule 10/03/17 [Rx] Thiamine (B-1) [Vitamin B-1] 100 mg PO DAILY #30 tablet 10/03/17 [Rx] Vitamin B Complex/Vit C/Vit E [Stresstab] 1 each PO DAILY #30 tablet 10/03/17 [ Rx] Allergies/Adverse Reactions: 3 Allergy/AdvReac Type Severity Reaction Status Date / Time Buspirone [From BuSpar] AdvReac See Verified 09/13/17 06:46 Comments tramadol AdvReac See Verified 09/13/17 06:46 Comments Procedures/tests Complete & Pending: Procedures Performed prior 72 hours Category Date Time Status CT abd pelvis wo no iv no oral [CT] Routine Cat Scan 10/01/17 14:15 Completed Date of admission: 09/29/17 13:38 Primary care physician: PCP NONE Consults: 09/29/17 15:34 Consult to Invasive Line Access Team [CONS] Routine Reason for Consult: Limited IV access Line Type: EPIV Discharging clinician: Bhupinder Zambrano Anticipated date of discharge: 10/03/17 - Patient Status Disposition: Home, Self-Care Condition: Good Functional capacity at discharge: independent ambulation Overall status at discharge: patient is back to baseline - Discharge Instructions Instructions: Abuse of Alcohol (DC), Chronic Hypertension (DC) Follow Up With: NONE,PCP [Primary Care Provider] - Additional Instructions: Follow-up appointments: If there is not an appointment listed below, please call your physician and schedule a follow-up appointment. If you have congestive heart failure and your symptoms return, make an appointment with your physician. Medication List: Carry an up to date list of medications you are taking at all time. We have given you an updated medication list including any new medications that you have been prescribed. Please provide that list to your primary provider Symptoms: If your condition changes or you experience any of the following symptoms, notify your physician immediately: Unusual or worsening pain, fever, persistent nausea and vomiting, bleeding, increase in swelling (especially in your legs), sudden weight gain, extreme dizziness, chest pain, increased drainage or redness from a wound or incision. Go to the emergency department if you experience a problem with breathing. Weights: If you have a history of swelling or shortness of breath, weigh yourself daily and notify your physician if you have a weight gain of two or more pounds in one day or 5 or more pounds in a week. If you experience any of the warning signs for stroke: Sudden numbness or weakness of the face, arm or leg; especially on one side of the body, sudden confusion, trouble speaking or understanding, sudden trouble seeing in one or both eyes, sudden trouble walking, dizziness, loss of balance or coordination, sudden sever headache with no cause; Call 911 or go to the emergency room. Stroke is a medical emergency. Some risk factors for stroke: Age, cigarette smoking, diabetes, excessive alcohol consumption, family history , high blood pressure, overweight, physical inactivity, prior stroke, heart attack, diagnosis of carotid artery stenosis or other artery disease. If you smoke, STOP: Smoking or tobacco use significantly increases your risk of heart and lung disease. Your chance of disease greatly increases if you continue to smoke. For more information, call the [place] tobacco quit line for smoking cessation QUIT-NOW ( ) - Diet and Activity Activity: resume usual activities as tolerated Diet: low salt diet Interval History: See below Hospital course: Mr. Chen is a 62 year old male with medical history of COPD, chronic alcohol abuse with pancreatic insufficiency, hypertension and depression. He was admitted for management of alcohol withdrawal. He has since been doing well without any requirements for short-acting benzodiazepines. Hospital stay complicated by an episode of gastritis and gastroenteritis which have resolved. Abdomen CT scan done during this episode of gastroenteritis was unremarkable for any acute processes. Patient has declined inpatient detox or rehabilitation for his alcoholism. he is seen and evaluated at the bedside this morning, ambulatory, in no form of distress, denies new complains, tolerating po. encouraged to titrate librium, alcohol cessation encouraged He is stable medically to be discharged home. Follow-up with primary care doctor. - Time Spent with Patient Total time spent providing and/or coordinating discharge services: Less than 30 minutes - Constitutional Vitals: Temp Pulse Resp BP Pulse Ox 97.7 F 83 16 116/74 98 10/03/17 06:56 10/03/17 06:56 10/03/17 06:56 10/03/17 06:56 10/03/17 06:56 General appearance: Present: A&O X 3, pleasant, no acute distress - Head Head exam: Present: atraumatic, normocephalic - Eye Eye exam: Present: PERRL, conjuntiva pink, sclera anicteric Pupils: Present: PERRL - Neck Neck exam general surgery: Present: supple, trachea midline. Absent: lymphadenopathy - Respiratory Respiratory exam: Present: CTAB. Absent: accessory muscle use, rales, rhonchi, wheezes - Cardiovascular Cardiovascular exam: Present: RRR, +S1, +S2. Absent: diastolic murmur, gallop, rubs, systolic murmur - GI/Abdominal GI/Abdominal exam: Present: normal bowel sounds, soft, no peritoneal signs. Absent: distended, tenderness - Extremities Exam Extremities exam: Present: warm, radial pulses palpable and symmetrical. Absent : calf tenderness, cyanotic, pedal edema - Neurological Exam Neurological exam: Present: alert, CN II-XII intact, oriented X3, no focal deficits. Absent: pronater drift, facial droop, speech deficit - Skin Skin exam: Present: dry, intact
[2017-10-03] MEDS: Budesonide/Formoterol 160/4.5 MDI IH SCH (11:14)
== END 2017-10-03 11:56 | disposition home or self-care (01) | DRG 897 ==
LOC: EMEROO 10:14 → 3BNU 10:14 → SUATTDRO 12:12 → 3BNU 13:05 → SUATTDRO 09-29 13:38
PROVIDERS: ADMIT Hospitalist; ATTEND Internal Medicine

== ENCOUNTER 2017-10-15 09:07 | Inpatient (IN) ==
[2017-10-15] MEDS ORDERED: *HR* LORazepam 2 MG/ML VIAL IVP ONE ×3 (09:10→11:37)
[2017-10-15] MEDS ORDERED: 0.9 % Sodium Chloride 1,000 ML IVC ONE ×2 (09:10→11:37)
--- NOTE | 2017-10-15 09:21 | Emergency Department Note ---
Disposition Clinical Impression: Alcohol withdrawal Qualifiers: Complication of substance-induced condition: uncomplicated Qualified Code(s): F10.230 - Alcohol dependence with withdrawal, uncomplicated Disposition: Admitted As Inpatient Condition: Good Alcohol HPI - General Chief Complaint: ED Fall Stated Complaint: fall/DTs Time Seen by Provider: 10/15/17 09:10 Source: patient, EMS Mode of arrival: EMS Limitations: no limitations Nursing Notes Reviewed: Yes Vital Signs Reviewed: Yes - History of Present Illness HPI Narrative: 62-year-old male history of chronic alcohol abuse presents to the ER for alcohol withdrawal. Patient reports he has not had a drink for 2 days because of financial issues. He states that he has quit cold turkey before. Denies any history of alcohol withdrawal seizures. States that this morning he passed out at home and is unsure what happened. He had no prodromal symptoms. He is unsure how long he was out for. He got up and went to his neighbor's house who called 911. He currently endorses periumbilical abdominal pain reported a prior history of pancreatitis. Is also complaining of a headache. He denies any chest pain, shortness of breath, nausea, vomiting or diarrhea. Denies any other illicit drug use. No other complaints. Pt Subjective Complaint: alcohol withdrawal Last Drink: days (ago) Alcohol Type: Liquor Amount of alcohol consumed: A 5th Chronic Alcohol Use: Yes Previous Visits for Alcohol Intoxication?: Yes Recent Trauma: Yes Associated symptoms: Reports: syncope, tremors, abdominal pain. Denies: nausea , vomiting Treatments prior to arrival: none - Related Data Home Medications Medication Instructions Recorded Confirmed Albuterol Sulfate [Proair Hfa] 2 puff IH Q4H PRN 12/21/16 09/27/17 Quetiapine Fumarate [Seroquel] 300 mg PO HS 12/21/16 09/27/17 Lipase/Protease/Amylase [Creon Dr 3 cap PO TIDWM 03/15/17 09/27/17 12,000 Units Capsule] Omeprazole [PriLOSEC] 20 mg PO DAILY 03/15/17 09/27/17 Amlodipine Besylate 10 mg PO DAILY 03/27/17 09/27/17 Budesonide/Formoterol 160/4.5 1 puff IH BIDR 03/27/17 09/27/17 [Symbicort 160/4.5] Cyanocobalamin (Vitamin B-12) 500 mcg PO DAILY 06/03/17 09/27/17 [Vitamin B-12] Divalproex (24 HR) [Depakote ER 1,250 mg PO HS 06/03/17 09/27/17 (24 HR)] traZODone [TraZODone] 50 mg PO TID 06/29/17 09/27/17 Gabapentin [Neurontin] 300 mg PO TID 09/27/17 09/27/17 Previous Rx's Medication Instructions Recorded Amitriptyline [Elavil] 25 mg PO HS #30 tablet 08/17/17 Chlordiazepoxide [Librium] 10 mg PO TID #30 capsule 10/03/17 Folic Acid 1 mg PO DAILY #30 tablet 10/03/17 Renal Vitamin [Renal Caps Softgel] 1 mg PO DAILY #30 capsule 10/03/17 Thiamine (B-1) [Vitamin B-1] 100 mg PO DAILY #30 tablet 10/03/17 Vitamin B Complex/Vit C/Vit E 1 each PO DAILY #30 tablet 10/03/17 [Stresstab] Allergies Allergy/AdvReac Type Severity Reaction Status Date / Time Buspirone [From BuSpar] AdvReac See Verified 09/13/17 06:46 Comments tramadol AdvReac See Verified 09/13/17 06:46 Comments All systems ED: reviewed and negative except as stated. Constitutional: Denies: fever Cardiovascular: Denies: chest pain Respiratory: Denies: dyspnea Gastrointestinal: Reports: abdominal pain. Denies: nausea, vomiting, diarrhea Neurological: Reports: other (Tremors) Past Medical History - Past Medical History Attestation: Yes The following information was validated with the patient. Source: patient Medical history: Reports: COPD, GERD, hypertension, migraine, myocardial infarction, other Surgical history: Reports: appendectomy, cholecystectomy, other Psychiatric history: Reports: anxiety, bipolar, depression, schizophrenia - Social History Smoking Status: Current every day smoker Smokeless Tobacco Status: No Alcohol use: Reports: heavy Drug use: Reports: none Physical Exam - General Limitations: no limitations General appearance: alert, anxious - Head Head exam: atraumatic, normocephalic - Eye Eye exam: Present: normal appearance - ENT ENT exam: normal exam - Neck Neck exam: Present: normal inspection, full ROM - Chest Chest inspection: Present: normal inspection, symmetric chest wall rise - Respiratory Respiratory exam: Present: normal lung sounds bilaterally - Cardiovascular Cardiovascular exam: Present: normal rhythm, tachycardia, normal heart sounds - Abdominal Exam Abdominal exam: Present: soft, tenderness (Patient has moderate periumbilical abdominal pain). Absent: distention, guarding, rigidity - Extremities Exam Extremities exam: Present: normal inspection, full ROM - Expanded Upper Extremity Exam Shoulder exam: Present: normal inspection, full ROM Arm exam: Present: normal inspection, full ROM Elbow exam: Present: normal inspection, full ROM Forearm/Wrist exam: Present: normal inspection, full ROM Hand exam: Present: normal inspection, full ROM - Expanded Lower Extremity Exam Hip/Pelvis exam: Present: normal inspection, full ROM Upper leg exam: Present: normal inspection, full ROM Knee exam: Present: normal inspection, full ROM Lower leg exam: Present: normal inspection, full ROM Ankle exam: Present: normal inspection, full ROM Foot/toe exam: Present: normal inspection, full ROM Neurovascular/Tendon exam: Absent: motor deficit, sensory deficit - Neurological Exam Neurological exam: Present: alert, oriented X3, other (GCS 15. Nonfocal exam. Moves all extremity is equally. Tremulous on exam.) - Psychiatric Psychiatric exam: Present: anxious - Skin Skin exam: Present: warm, dry Course Course Narrative: Patient seen and examined. Vital signs reviewed. He is currently tremulous with no seizure-like activity nor does he report prior seizure-like activity. We will obtain IV access given 1 mg of Ativan as well as fluids, seizure precautions as well as an EKG, labs, CT scan of the head given his syncopal episode and head injury unwitnessed as well as CT scan of the abdomen and pelvis. - Reevaluation(s) Reevaluation #1: Patient ordered an additional milligram of Ativan for tremor. Reevaluation #2: Patient back from CT. Third milligram of Ativan ordered. Vital Signs Temperature 97.5 F L 10/15/17 09:09 Pulse Rate 95 10/15/17 09:09 Respiratory Rate 20 10/15/17 09:09 Blood Pressure 182/112 10/15/17 09:09 O2 Sat by Pulse Oximetry 100 10/15/17 09:09 Temperature 97.5 F L 10/15/17 09:09 Pulse Rate 98 10/15/17 11:45 Respiratory Rate 16 10/15/17 11:45 Blood Pressure 169/102 10/15/17 11:45 O2 Sat by Pulse Oximetry 96 10/15/17 11:45 Oxygen Delivery Oxygen Delivery Room Air Alcohol - MDM Narrative Medical decision making narrative: 62-year-old male presents to the ER due to alcohol withdrawal. Today since last drink. Has been unable to afford it. Denies any seizure. No history of delirium tremens. He is alert and nonfocal here. Did have tremors upon arrival. Given a dose of 3 mg of Ativan in total. CT scan had abdomen without acute findings. Patient admitted to the hospitalist service. - Lab Data Lab results reviewed: Yes I reviewed the patient's lab results. Result diagrams: 10/15/17 10:09 10/15/17 09:37 Lab Results 10/15/17 10/15/17 10/15/17 Range/Units 09:37 09:37 09:54 WBC (4.3-11.1) K/mcL RBC (4.19-5.50) M/mcL Hgb (12.9-16.9) g/dL Hct (37.5-50.1) % MCV (83.0-100.0) fL MCH (28.0-33.3) pg MCHC (31.6-35.5) g/dL RDW (11.5-14.5) % Plt Count (140-400) K/mcL MPV (9.4-12.4) fL Immature Gran % (0-4) % Seg Neutrophils % % Lymphocytes % % Monocytes % % Eosinophils % % Basophils % % Neutrophils # (1.6-8.9) K/mcL Lymphocytes # (0.6-4.6) K/mcL Monocytes # (0.0-1.3) K/mcL Eosinophils # (0.0-0.6) K/mcL Basophils # (0.0-0.2) K/mcL Sodium 139 (136-145) mEq/L Potassium 4.3 (3.5-5.1) mEq/L Chloride 104 (98-107) mEq/L Carbon Dioxide 13 L (23-29) mEq/L BUN 12 (8-23) mg/dL Creatinine 0.97 (0.70-1.30) mg/dL Est GFR ( Amer) > 60 (> 60) Est GFR (Non-Af Amer) > 60 (> 60) BUN/Creatinine Ratio 12 (6-26) Glucose 74 (70-105) mg/dL Calculated Osmolality 286 (280-300) Calcium 9.8 (8.6-10.3) mg/dL Total Bilirubin 0.9 (0.3-1.0) mg/dL AST 94 H (13-39) Units/L ALT 76 H (7-52) Units/L Alkaline Phosphatase 108 H (34-104) Units/L Troponin I < 0.03 (< 0.04) ng/mL Serum Total Protein 8.1 (6.4-8.9) g/dL Albumin 4.7 (3.5-5.7) g/dL Globulin 3.4 (2.4-3.5) g/dL Albumin/Globulin Ratio 1.4 (1.1-2.2) Lipase 21 (11-82) Units/L Urine Opiates Screen (Pllpgp=380) ng/mL Ur Barbiturates Screen (Xdvnou=711) ng/mL Ur Phencyclidine Scrn (Cutoff=25) ng/mL Ur Amphetamines Screen (Fylwzs=7378) ng/mL U Benzodiazepines Scrn (Pzsgud=225) ng/mL Urine Cocaine Screen (Cutoff= 300) ng/mL U Marijuana (THC) Screen (Cutoff = 50) ng/mL Ethyl Alcohol 61 H (0-10) mg/dL Specimen Rejected Volume 10/15/17 10/15/17 Range/Units 10:09 10:20 WBC 4.4 (4.3-11.1) K/mcL RBC 4.92 (4.19-5.50) M/mcL Hgb 13.4 (12.9-16.9) g/dL Hct 41.4 (37.5-50.1) % MCV 84.1 (83.0-100.0) fL MCH 27.2 L (28.0-33.3) pg MCHC 32.4 (31.6-35.5) g/dL RDW 16.5 H (11.5-14.5) % Plt Count 164 (140-400) K/mcL MPV 10.0 (9.4-12.4) fL Immature Gran % 1.6 (0-4) % Seg Neutrophils % 63.2 % Lymphocytes % 24.9 % Monocytes % 8.2 % Eosinophils % 1.4 % Basophils % 0.7 % Neutrophils # 2.8 (1.6-8.9) K/mcL Lymphocytes # 1.1 (0.6-4.6) K/mcL Monocytes # 0.4 (0.0-1.3) K/mcL Eosinophils # 0.1 (0.0-0.6) K/mcL Basophils # 0.0 (0.0-0.2) K/mcL Sodium (136-145) mEq/L Potassium (3.5-5.1) mEq/L Chloride (98-107) mEq/L Carbon Dioxide (23-29) mEq/L BUN (8-23) mg/dL Creatinine (0.70-1.30) mg/dL Est GFR ( Amer) (> 60) Est GFR (Non-Af Amer) (> 60) BUN/Creatinine Ratio (6-26) Glucose (70-105) mg/dL Calculated Osmolality (280-300) Calcium (8.6-10.3) mg/dL Total Bilirubin (0.3-1.0) mg/dL AST (13-39) Units/L ALT (7-52) Units/L Alkaline Phosphatase (34-104) Units/L Troponin I (< 0.04) ng/mL Serum Total Protein (6.4-8.9) g/dL Albumin (3.5-5.7) g/dL Globulin (2.4-3.5) g/dL Albumin/Globulin Ratio (1.1-2.2) Lipase (11-82) Units/L Urine Opiates Screen Negative (Ixvjnx=942) ng/mL Ur Barbiturates Screen Negative (Ynrpsh=178) ng/mL Ur Phencyclidine Scrn Negative (Cutoff=25) ng/mL Ur Amphetamines Screen Negative (Slssuu=9320) ng/mL U Benzodiazepines Scrn Positive H (Iyfybm=886) ng/mL Urine Cocaine Screen Negative (Cutoff= 300) ng/mL U Marijuana (THC) Screen Negative (Cutoff = 50) ng/mL Ethyl Alcohol (0-10) mg/dL Specimen Rejected - Radiology Data Radiology results reviewed: Yes I reviewed the patient's radiology results. Head CT 10/15/17 09:11 IMPRESSION: No acute intracranial abnormality. Minimal parenchymal volume loss. D/ / Flakito Kerns MD / Flakito Kerns MD Interpreting Provider: Flakito Kerns MD Abdomen/Pelvis CT 10/15/17 09:24 IMPRESSION: 1. No acute intra- abdominal abnormality to explain the patient's symptoms. 2. Severe hepatic steatosis. 3. Nonobstructing right nephrolithiasis. 4. Mild splenomegaly. 5. Status post cholecystectomy and right hemicolectomy. D/ / Kathy Larsen MD / Kathy Larsen MD Interpreting Provider: Kathy Larsen MD - EKG Data EKG attestation: Yes I reviewed and interpreted this EKG. EKG results narrative: EKG demonstrates sinus rhythm with rate of 93 bpm. Left axis deviation. Normal intervals. Normal R-wave progression. No gross ST elevations or depressions. No acute ischemic findings. S.B.A.R. - S.B.A.R. Situation: Demographics, MOA Background: Presenting Complaint, Relevant PMH, Meds, & Allergies Assessment: Course and respsone to treatment, Exam Concerns, Patient/Family Expectation, Pertinant Lab Results Recommendation: Barrier(s) to disposition, Recommendation based on pending studies, treatments, or consults S.B.A.R. Report Given to: Dr. Brownlee
[2017-10-15] MEDS ORDERED: Folic Acid 1 MG TABLET PO ONE (09:26)
[2017-10-15] MEDS ORDERED: Multivit/Ca/Min/Fe/FA 1 TAB TABLET PO ONE (09:26)
[2017-10-15] MEDS ORDERED: Thiamine (B-1) 100 MG TABLET PO ONE (09:26)
--- NOTE | 2017-10-15 09:33 | Emergency Department Note ---
START Narrative - START START: I examined this patient and my medical decision-making was reviewed with the INSPECTOR FILTERS/PA/Advanced Practice Nurse/Resident Physician. I agree with the documented findings, disposition and treatment plan as described except to the extent set forth below. ED attending: Patient's emergency medicine resident Dr. Kevin Leavitt. Please see copy of this note for H&P evaluation and management and ED disposition. We both had independent ufyu-ko-ohon time in contact with this patient. Briefly: 62-year-old male by EMS long-standing history of ethanol abuse and dependency presents "alcohol withdrawal". Patient said he stopped drinking about 2 or 3 days ago due to not having enough money to buy alcohol. Stays been shaking but has not had a seizure. He has some mild epigastric pain nausea but no vomiting fevers chills weakness or numbness shortness of breath or chest pain. Patient is hypertensive and tremulous and slightly agitated. Cooperative. Patient getting parenteral Ativan screening labs IV fluids and folate and magnesium IV with multivitamins orally. Disposition pending.
[2017-10-15 10:22] LABS: Basophils % 0.7 %; Eosinophils # 0.1 K/mcL (0.0-0.6); Eosinophils % 1.4 %; Hematocrit 41.4 % (37.5-50.1); Hemoglobin 13.4 g/dL (12.9-16.9); Immature Granulocytes % 1.6 % (0-4); Lymphocytes # 1.1 K/mcL (0.6-4.6); Lymphocytes % 24.9 %; Mean Corpuscular HGB Conc 32.4 g/dL (31.6-35.5); Mean Corpuscular Hemoglobin 27.2 pg (28.0-33.3); Mean Corpuscular Volume 84.1 fL (83.0-100.0); Monocytes # 0.4 K/mcL (0.0-1.3); Monocytes % 8.2 %; Neutrophils # 2.8 K/mcL (1.6-8.9); Platelet Count 164 K/mcL (140-400); Red Blood Count 4.92 M/mcL (4.19-5.50); Red Cell Distribution Width 16.5 % (11.5-14.5); Segmented Neutrophils % 63.2 %
[2017-10-15 10:28] LABS: Ethanol 61 mg/dL (0-10)
[2017-10-15 10:42] LABS: Alanine Aminotransferase 76 Units/L (7-52); Albumin 4.7 g/dL (3.5-5.7); Albumin/Globulin Ratio 1.4 (1.1-2.2); Alkaline Phosphatase 108 Units/L (34-104); Aspartate Amino Transferase 94 Units/L (13-39); BUN/Creatinine Ratio 12 (6-26); Bilirubin,Total 0.9 mg/dL (0.3-1.0); Blood Urea Nitrogen 12 mg/dL (8-23); Calcium 9.8 mg/dL (8.6-10.3); Carbon Dioxide 13 mEq/L (23-29); Chloride 104 mEq/L (98-107); Globulin 3.4 g/dL (2.4-3.5); Glucose 74 mg/dL (70-105); Lipase 21 Units/L (11-82); Osmolality,Calculated 286 (280-300); Potassium 4.3 mEq/L (3.5-5.1); Sodium 139 mEq/L (136-145); Total Protein 8.1 g/dL (6.4-8.9); eGFR For African Americans > 60 (> 60); eGFR For Non-African Americans > 60 (> 60)
[2017-10-15 11:18] LABS: Amphetamine Screen,Urine Negative ng/mL (Cutoff=1000); Barbiturate Screen,Urine Negative ng/mL (Cutoff=200); Benzodiazepines Screen,Urine Positive ng/mL (Cutoff=200); Cannabinoid Screen,Urine Negative ng/mL (Cutoff = 50); Cocaine Screen,Urine Negative ng/mL (Cutoff= 300); Opiate Screen,Urine Negative ng/mL (Cutoff=300); Phencyclidine Screen,Urine Negative ng/mL (Cutoff=25)
[2017-10-15] MEDS ORDERED: Naloxone 0.4 MG/ML INJ IVP PRN (13:07)
[2017-10-15] MEDS ORDERED: Acetaminophen 325 MG TABLET PO PRN (13:07)
[2017-10-15] MEDS ORDERED: Ondansetron ODT 4 MG TAB.RAPDIS SL PRN (13:07)
--- NOTE | 2017-10-15 13:21 | Internal Med History&Physical ---
<Windy Boone - Last Filed: 10/15/17 13:54> Date of Encounter: 10/15/17 Time of Encounter: 13:18 Assessment and Plan (1) DTs (delirium tremens) Status: Acute - Last drink was 2 days ago, symptoms of early DT. - received ativan, thiamine at ED. -continue CIWA with ativan and Zofran PRN - Tele monitoring. - aspiration and seizure precaution. (2) Alcohol intoxication Status: Acute - SW consult and refer to AA. Qualifiers: Complication of substance-induced condition: with delirium Qualified Code(s ): F10.921 - Alcohol use, unspecified with intoxication delirium (3) Alcohol withdrawal Status: Acute same as above. Qualifiers: Complication of substance-induced condition: uncomplicated Qualified Code(s ): F10.230 - Alcohol dependence with withdrawal, uncomplicated (4) Alcoholic hepatitis Status: Acute - Mildly elevated AST and ALT, HX of Hep C. -HLP slightly elevated. No signs of biliary obstruction. - monitoring and trending AST/ALT. Qualifiers: Ascites presence: without ascites Qualified Code(s): K70.10 - Alcoholic hepatitis without ascites (5) History of substance abuse Status: Chronic -Urine drug screen + for ETOH and Benzo. (6) COPD (chronic obstructive pulmonary disease) Status: Chronic - No acute respiratory distress, continue home meds. Qualifiers: Emphysema type: unspecified Qualified Code(s): J43.9 - Emphysema, unspecified (7) Coronary artery disease Status: Chronic - No chest pain, Tele monitoring, continue home meds. Qualifiers: Coronary Disease-Associated Artery/Lesion type: [place] artery [place] vs. transplanted heart: [place] heart Associated angina: with unspecified angina Qualified Code(s): I25.119 - Atherosclerotic heart disease of [place] coronary artery with unspecified angina pectoris (8) Hepatitis C Status: Chronic - mildly elevated AST AND ALT. - will trend. Qualifiers: Viral hepatitis chronicity: chronic Hepatic coma status: without hepatic coma Qualified Code(s): B18.2 - Chronic viral hepatitis C (9) Pancreatic insufficiency Status: Chronic - stable, Lipase normal. Internal Medicine - H&P: HPI History of present illness: Mr. Chen is a 62 year old male with history of chronic alcohol abuse presents to the ER for alcohol withdrawal. Patient reports he has not had a drink for 2 days because of financial issues. He states that he has quit cold turkey before. Denies any history of alcohol withdrawal seizures. States that this morning he passed out at home and is unsure what happened. He had no prodromal symptoms. He is unsure how long he was out for. He got up and went to his neighbor's house who called 911. He currently endorses periumbilical abdominal pain reported a prior history of pancreatitis. Is also complaining of a headache. He denies any chest pain, shortness of breath, nausea, vomiting or diarrhea. Denies any other illicit drug use. No other complaints. At the ED, he experienced agitation requiring several doses of Ativan. He also received IV fluid, folate, and thiamine. Due to signs and symptoms of delirium tremens, he will be admitted to the inpatient service with telemetry. Past Med Surg Social Fam HX - Past Medical History Medical history: COPD, GERD, hypertension, migraine, myocardial infarction, other Psychiatric history: anxiety, bipolar, depression, schizophrenia - Past Surgical History Surgical History: appendectomy, cholecystectomy, other - Social History Smoking Status: Current every day smoker Smokeless Tobacco Status: No Alcohol use: heavy Drug use: none - Family History Mother Adopted: No Family Member Ethnicity: Non- Living Status: Still Living Hx Family Cardiac Disorders: Yes Hx Family Respiratory Disorders: No Hx Family Cancer: No Hx Family GI Disorders: No Hx Family Endocrine Disorder: No Hx Family Neuromuscular Disorders: No Hx Family Neurologic Disorders: Yes Hx Family HEENT Disorders: No Hx Family Autoimmune Disorders: No Father Living Status: Internal Medicine - H&P: Meds Albuterol Sulfate [Proair Hfa] 2 puff IH Q4H PRN 12/21/16 [History] Lipase/Protease/Amylase [Ananya Kern 12,000 Units Capsule] 3 cap PO TIDWM 03/15/17 [History] Omeprazole [PriLOSEC] 20 mg PO DAILY 03/15/17 [History] Amlodipine Besylate 10 mg PO DAILY 03/27/17 [History] Budesonide/Formoterol 160/4.5 [Symbicort 160/4.5] 1 puff IH BIDR 03/27/17 [ History] Cyanocobalamin (Vitamin B-12) [Vitamin B-12] 500 mcg PO DAILY 06/03/17 [History] Amitriptyline [Elavil] 25 mg PO HS #30 tablet 08/17/17 [Rx] Folic Acid 1 mg PO DAILY #30 tablet 10/18/17 [Rx] Thiamine (B-1) [Vitamin B-1] 100 mg PO DAILY #30 tablet 10/18/17 [Rx] Cholecalciferol (D-3) [Vitamin D] 1,000 unit PO DAILY 10/26/17 [History] Lactobacillus Acidophilus [Acidophilus] 1 each PO BID 10/26/17 [History] Magnesium Oxide [Mag-Ox] 400 mg PO DAILY 10/26/17 [History] Pregabalin [Lyrica] 150 mg PO BID 10/26/17 [History] SUMAtriptan succinate [Imitrex] 6 mg SQ AD PRN 10/26/17 [History] Aspirin Enteric Coated [Aspirin EC] 81 mg PO DAILY #30 tablet. 10/29/17 [Rx] Chlordiazepoxide [Librium] 25 mg PO TID #12 capsule 10/29/17 [Rx] Nicotine Patch [Nicoderm] 21 mg TD DAILY #30 patch.td24 10/29/17 [Rx] 3 Allergy/AdvReac Type Severity Reaction Status Date / Time Buspirone [From BuSpar] AdvReac See Verified 10/26/17 14:20 Comments tramadol AdvReac See Verified 10/26/17 14:20 Comments All Systems PM: A 10-system review of systems was performed and is negative for pertinent findings except as documented above in the HPI. Review of systems: REVIEW OF SYSTEMS: CONSTITUTIONAL: No weight loss, fever, chills, weakness or fatigue. HEENT: Eyes: No visual loss, blurred vision, double vision or yellow sclerae. Ears, Nose, Throat: No hearing loss, sneezing, congestion, runny nose or sore throat. SKIN: No rash or itching. CARDIOVASCULAR: No chest pain, chest pressure or chest discomfort. No palpitations or edema. RESPIRATORY: No shortness of breath, cough or sputum. GASTROINTESTINAL: positive for anorexia, nausea, denies vomiting or diarrhea. No abdominal pain or blood. GENITOURINARY: No dysuria, urgency, or frequency. NEUROLOGICAL: No headache, dizziness, syncope, paralysis, ataxia, numbness or tingling in the extremities. No change in bowel or bladder control. MUSCULOSKELETAL: No muscle, back pain, joint pain or stiffness. HEMATOLOGIC: No anemia, bleeding or bruising. LYMPHATICS: No enlarged nodes. No history of splenectomy. PSYCHIATRIC: No history of depression or anxiety. ENDOCRINOLOGIC: No reports of sweating, cold or heat intolerance. No polyuria or polydipsia. - Constitutional Vitals: Temp Pulse Resp BP Pulse Ox 97.5 F L 98 18 180/119 96 10/15/17 09:09 10/15/17 11:45 10/15/17 13:14 10/15/17 13:14 10/15/17 11:45 Exam: PHYSICAL EXAMINATION: GENERAL APPEARANCE: The patient is alert, oriented and in no acute distress. HEENT: Head is normocephalic. The sinuses are nontender. Pupils are equal and reactive. The nares are patent. Oropharynx clear without lesions. NECK: Supple without lymphadenopathy. HEART: Regular rate and rhythm. LUNGS: No crackles or wheezes are heard. ABDOMEN: Soft, mildly diffusely tender, nondistended with good bowel sounds heard. Inguinal area is normal. EXTREMITIES: Without cyanosis, clubbing or edema. NEUROLOGICAL: tremor noted on extremities. SKIN: Warm and dry without any rash. Internal Med - H&P Results - Labs CBC & Chem 7: 10/15/17 10:09 10/15/17 09:37 <Miladys Brownlee - Last Filed: 11/13/17 09:05> Date of Encounter: 11/13/17 Internal Medicine - H&P: HPI History of present illness: Mr. Chen is a 62 year old male All Systems PM: A 10-system review of systems was performed and is negative for pertinent findings except as documented above in the HPI. - Constitutional Vitals: Temp Pulse Resp BP Pulse Ox 99.6 F 91 16 162/98 96 10/18/17 06:51 10/18/17 06:51 10/18/17 07:37 10/18/17 06:51 10/18/17 07:37 Internal Med - H&P Results - Labs CBC & Chem 7: 10/18/17 06:55 10/18/17 06:55 - Attending Attestation I personally and independently interviewed and examined the patient with FLIGHT ENGINEER MANAGER, and I reviewed the patient's medical record with her. I am in agreement with the assessment and proposed treatment plan. I discussed my findings and recommendation with the patient and answer all questions. The patient's medical records were edited to accurately reflect this encounter.
[2017-10-15] MEDS ORDERED: Water for inj. (sterile) 10 ML IV ONE (15:14)
[2017-10-15] MEDS: traZODone 50 MG TABLET PO SCH ×2 (15:17→20:03)
[2017-10-15] MEDS: 0.9 % Sodium Chloride 1,000 ML IVC SCH (15:17)
[2017-10-15] MEDS: Gabapentin 300 MG CAPSULE PO SCH ×2 (15:17→20:04)
[2017-10-15] MEDS: *HR* LORazepam 2 MG/ML VIAL IVP PRN ×2 (15:18→20:04)
[2017-10-15] MEDS: Budesonide/Formoterol 160/4.5 MDI IH SCH (20:02)
[2017-10-15] MEDS: Divalproex (24 HR) 250 MG TABLET PO SCH (20:04)
[2017-10-15] MEDS ORDERED: Ondansetron 4 MG/2 ML VIAL IVP PRN (22:09)
[2017-10-16] MEDS: 0.9 % Sodium Chloride 1,000 ML IVC SCH (00:28)
[2017-10-16] MEDS: *HR* LORazepam 2 MG/ML VIAL IVP PRN ×7 (00:29→23:04)
[2017-10-16 05:44] LABS: Hematocrit 37.3 % (37.5-50.1); Hemoglobin 12.1 g/dL (12.9-16.9); Immature Platelets 3.6 % (1.1-6.1); Mean Corpuscular HGB Conc 32.4 g/dL (31.6-35.5); Mean Corpuscular Hemoglobin 27.4 pg (28.0-33.3); Mean Corpuscular Volume 84.4 fL (83.0-100.0); Mean Platelet Volume 9.7 fL (9.4-12.4); Red Blood Count 4.42 M/mcL (4.19-5.50); Red Cell Distribution Width 16.2 % (11.5-14.5)
[2017-10-16 06:02] LABS: INR 1.1; Prothrombin Time 11.5 Seconds (9.4-12.1)
[2017-10-16 06:07] LABS: BUN/Creatinine Ratio 16 (6-26); Blood Urea Nitrogen 14 mg/dL (8-23); Calcium 8.8 mg/dL (8.6-10.3); Carbon Dioxide 24 mEq/L (23-29); Chloride 108 mEq/L (98-107); Glucose 114 mg/dL (70-105); Magnesium 1.8 mg/dL (1.6-2.6); Osmolality,Calculated 289 (280-300); Potassium 3.1 mEq/L (3.5-5.1); Sodium 139 mEq/L (136-145); eGFR For African Americans > 60 (> 60); eGFR For Non-African Americans > 60 (> 60)
[2017-10-16] MEDS: Vitamin B Complex/Vit C/Vit E 1 EACH TABLET PO SCH (07:34)
[2017-10-16] MEDS: Folic Acid 1 MG TABLET PO SCH (07:34)
[2017-10-16] MEDS: Gabapentin 300 MG CAPSULE PO SCH ×3 (07:34→19:42)
[2017-10-16] MEDS: Cyanocobalamin (B-12) 1,000 MCG TABLET PO SCH (07:34)
[2017-10-16] MEDS: Thiamine (B-1) 100 MG TABLET PO SCH (07:34)
[2017-10-16] MEDS: traZODone 50 MG TABLET PO SCH ×3 (07:34→19:42)
[2017-10-16] MEDS: amLODIPine 5 MG TABLET PO SCH (07:35)
[2017-10-16] MEDS: Renal Vitamin 1 MG CAPSULE PO SCH (07:38)
--- NOTE | 2017-10-16 09:24 | Electrocardiograph Report ---
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
[2017-10-16] MEDS: D5% in 0.45% NACL w KCl 20 MEQ/1,000 ML MLS IVC SCH ×2 (11:17→19:27)
--- NOTE | 2017-10-16 11:33 | Internal Med Progress Note ---
Date of Encounter: 10/16/17 Time of Encounter: 11:31 - Assessment and plan (1) Alcohol intoxication Current Visit: Yes Status: Acute Qualifiers: Complication of substance-induced condition: with delirium Qualified Code(s ): F10.921 - Alcohol use, unspecified with intoxication delirium (2) Opioid intoxication Current Visit: No Status: Acute Qualifiers: Complication of substance-induced condition: uncomplicated Qualified Code(s ): F11.920 - Opioid use, unspecified with intoxication, uncomplicated (3) Alcohol withdrawal Current Visit: Yes Status: Acute Qualifiers: Complication of substance-induced condition: uncomplicated Qualified Code(s ): F10.230 - Alcohol dependence with withdrawal, uncomplicated (4) Accelerated essential hypertension Current Visit: No Status: Acute (5) Schizophrenia Current Visit: No Status: Chronic Qualifiers: Schizophrenia type: unspecified Qualified Code(s): F20.9 - Schizophrenia, unspecified (6) Bipolar disorder, unspecified Current Visit: No Status: Chronic Qualifiers: Active/Remission status: currently active Current bipolar episode type: mixed Current episode severity: unspecified Qualified Code(s): F31.60 - Bipolar disorder, current episode mixed, unspecified (7) Hypokalemia Current Visit: No Status: Acute Assessment and plan: CONTINUE CLOSE MONITORING, CIWA PROTOCOL CONTINUE GENLE IV HYDRATION CONTINUE THIAMINE AND FOLATE CONTINUE SEROQUEL REPLACE ELECTROLYTES - Subjective Interval history: NO COMPLAINS - Constitutional Vitals: Temp Pulse Resp BP Pulse Ox 97.9 F 86 16 120/79 96 10/16/17 10:33 10/16/17 10:33 10/16/17 10:33 10/16/17 10:33 10/16/17 10:33 General appearance: Present: A&O X 3 - Head Head exam: Present: atraumatic, normocephalic - Eye Eye exam: Present: PERRL, conjuntiva pink, sclera anicteric Pupils: Present: PERRL - Neck Neck exam general surgery: Present: supple, trachea midline. Absent: lymphadenopathy - Respiratory Respiratory exam: Present: CTAB. Absent: accessory muscle use, rales, rhonchi, wheezes - Cardiovascular Cardiovascular exam: Present: RRR, +S1, +S2. Absent: diastolic murmur, gallop, rubs, systolic murmur - GI/Abdominal GI/Abdominal exam: Present: normal bowel sounds, soft, no peritoneal signs. Absent: distended, tenderness - Extremities Exam Extremities exam: Present: warm, radial pulses palpable and symmetrical. Absent : calf tenderness, cyanotic, pedal edema - Neurological Exam Neurological exam: Present: CN II-XII intact, oriented X3, no focal deficits. Absent: pronater drift, facial droop, speech deficit - Skin Skin exam: Present: dry, intact Internal Medicine: Result - Labs CBC & Chem 7: 10/16/17 05:33 10/16/17 05:33 Labs: Short CBC 10/16/17 Range/Units 05:33 WBC 3.0 L (4.3-11.1) K/mcL Hgb 12.1 L (12.9-16.9) g/dL Hct 37.3 L (37.5-50.1) % Plt Count 115 L (140-400) K/mcL BMP 10/16/17 05:33 Sodium 139 Potassium 3.1 L D Chloride 108 H Carbon Dioxide 24 BUN 14 Creatinine 0.85 Glucose 114 H Calcium 8.8 - ABG Interpretation ABG results: PT/INR, D-dimer PT 11.5 Seconds (9.4-12.1) 10/16/17 05:33 Consult Discharge Plan - Plan Referrals: NONE,PCP [Primary Care Provider] -
[2017-10-16] MEDS: Budesonide/Formoterol 160/4.5 MDI IH SCH ×2 (11:39→20:45)
[2017-10-16] MEDS: Divalproex (24 HR) 250 MG TABLET PO SCH (19:42)
[2017-10-17] MEDS: D5% in 0.45% NACL w KCl 20 MEQ/1,000 ML MLS IVC SCH ×3 (03:05→20:32)
[2017-10-17] MEDS: *HR* LORazepam 2 MG/ML VIAL IVP PRN ×2 (03:05→20:33)
[2017-10-17] MEDS: Cyanocobalamin (B-12) 1,000 MCG TABLET PO SCH (07:58)
[2017-10-17] MEDS: Folic Acid 1 MG TABLET PO SCH (07:58)
[2017-10-17] MEDS: Thiamine (B-1) 100 MG TABLET PO SCH (07:58)
[2017-10-17] MEDS: traZODone 50 MG TABLET PO SCH ×3 (07:58→20:31)
[2017-10-17] MEDS: Gabapentin 300 MG CAPSULE PO SCH ×3 (07:59→20:32)
[2017-10-17] MEDS: Renal Vitamin 1 MG CAPSULE PO SCH (07:59)
[2017-10-17] MEDS: amLODIPine 5 MG TABLET PO SCH (07:59)
[2017-10-17] MEDS: Vitamin B Complex/Vit C/Vit E 1 EACH TABLET PO SCH (07:59)
[2017-10-17] MEDS: Budesonide/Formoterol 160/4.5 MDI IH SCH ×2 (08:03→20:14)
--- NOTE | 2017-10-17 18:32 | Internal Med Progress Note ---
Date of Encounter: 10/17/17 Time of Encounter: 10:50 - Assessment and plan (1) Alcohol withdrawal Current Visit: Yes Status: Acute Assessment and plan: Acute alcohol withdrawal with possible DTs - symptoms now improving Continue IV Thiamine, Folic Acid, CIWA protocol, IV Zofran IV Ativan as needed for seizures and withdrawal symptoms Aspiration precaution, seizure precaution Cardiac telemetry, lives in a.m., monitor closely Qualifiers: Complication of substance-induced condition: uncomplicated Qualified Code(s ): F10.230 - Alcohol dependence with withdrawal, uncomplicated (2) Alcohol dependence Current Visit: Yes Status: Chronic Assessment and plan: History of chronic alcohol abuse with alcohol dependence Counseling about cessation Qualifiers: Substance use status: in withdrawal Complication of substance-induced condition: uncomplicated Qualified Code(s): F10.230 - Alcohol dependence with withdrawal, uncomplicated (3) Hepatitis C Current Visit: Yes Status: Chronic Qualifiers: Viral hepatitis chronicity: chronic Hepatic coma status: without hepatic coma Qualified Code(s): B18.2 - Chronic viral hepatitis C (4) Hypertension Current Visit: Yes Status: Chronic Assessment and plan: Essential hypertension, controlled Continue Norvasc Qualifiers: Hypertension type: essential hypertension Qualified Code(s): I10 - Essential (primary) hypertension (5) Pancreatic insufficiency Current Visit: Yes Status: Chronic Assessment and plan: Chronic, continue Lipase/Protease/Amylase With chronic malnutrition (6) Schizophrenia Current Visit: Yes Status: Chronic Assessment and plan: Stable, continue Depakote and Seroquel Qualifiers: Schizophrenia type: unspecified Qualified Code(s): F20.9 - Schizophrenia, unspecified - Time Spent With Patient 25 - 35 minutes - Subjective Interval history: Examined this morning. Awake and alert. Not in any distress. Denies chest pain or shortness of breath. Tolerating oral diet well. No fever. Hemodynamically stable. Patient continues to request more doses of IV Ativan. He is also on Librium. No acute events or complaints. Patient admitted for probable alcohol withdrawal. Currently stable. - Constitutional Vitals: Temp Pulse Resp BP Pulse Ox 97.7 F 92 16 128/85 96 10/17/17 15:46 10/17/17 15:46 10/17/17 15:46 10/17/17 15:46 10/17/17 15:46 General appearance: Present: cooperative, A&O X 3, no acute distress, answers questions appropriately - Head Head exam: Present: atraumatic - Eye Eye exam: Present: EOMI - ENT ENT exam: Present: mucous membranes moist - Respiratory Respiratory exam: Present: CTAB. Absent: accessory muscle use, chest wall tenderness, rales, respiratory distress, rhonchi, wheezes, tachypnea - Cardiovascular Cardiovascular exam: Present: RRR, +S1, +S2 - GI/Abdominal GI/Abdominal exam: Present: soft. Absent: distended, firm, guarding, tenderness - Extremities Exam Extremities exam: Present: radial pulses palpable and symmetrical. Absent: calf tenderness, cyanotic, pedal edema - Neurological Exam Neurological exam: Present: alert, oriented X3, no focal deficits. Absent: facial droop, speech deficit Internal Medicine: Result - Labs CBC & Chem 7: 10/16/17 05:33 10/16/17 05:33 - ABG Interpretation ABG results: PT/INR, D-dimer PT 11.5 Seconds (9.4-12.1) 10/16/17 05:33 Consult Discharge Plan - Plan Referrals: NONE,PCP [Primary Care Provider] -
[2017-10-17] MEDS: Divalproex (24 HR) 250 MG TABLET PO SCH (20:32)
[2017-10-17] MEDS ORDERED: Melatonin 3 MG TABLET PO PRN (23:19)
[2017-10-18] MEDS: *HR* LORazepam 2 MG/ML VIAL IVP PRN ×2 (00:58→05:50)
[2017-10-18] MEDS: D5% in 0.45% NACL w KCl 20 MEQ/1,000 ML MLS IVC SCH (02:19)
[2017-10-18 06:52] VITALS: BP 162/98
[2017-10-18 07:10] LABS: Hemoglobin 11.4 g/dL (12.9-16.9); Immature Granulocytes % 0.5 % (0-4)
[2017-10-18 07:12] LABS: Basophils % 0.5 %; Eosinophils # 0.2 K/mcL (0.0-0.6); Eosinophils % 4.1 %; Hematocrit 36.4 % (37.5-50.1); Immature Platelets 5.8 % (1.1-6.1); Lymphocytes % 24.1 %; Mean Corpuscular HGB Conc 31.3 g/dL (31.6-35.5); Mean Corpuscular Hemoglobin 27.3 pg (28.0-33.3); Mean Corpuscular Volume 87.1 fL (83.0-100.0); Mean Platelet Volume 10.5 fL (9.4-12.4); Monocytes # 0.2 K/mcL (0.0-1.3); Monocytes % 5.1 %; Neutrophils # 2.6 K/mcL (1.6-8.9); Platelet Count 104 K/mcL (140-400); Red Blood Count 4.18 M/mcL (4.19-5.50); Red Cell Distribution Width 16.2 % (11.5-14.5); Segmented Neutrophils % 65.7 %
[2017-10-18 07:15] LABS: Lymphocytes # 0.9 K/mcL (0.6-4.6)
[2017-10-18 07:17] LABS: BUN/Creatinine Ratio 9 (6-26); Blood Urea Nitrogen 9 mg/dL (8-23); Carbon Dioxide 22 mEq/L (23-29); Chloride 111 mEq/L (98-107); Glucose 90 mg/dL (70-105); Osmolality,Calculated 286 (280-300); Potassium 3.7 mEq/L (3.5-5.1); Sodium 139 mEq/L (136-145); eGFR For African Americans > 60 (> 60); eGFR For Non-African Americans > 60 (> 60)
[2017-10-18] MEDS: Budesonide/Formoterol 160/4.5 MDI IH SCH (07:37)
[2017-10-18] MEDS: amLODIPine 5 MG TABLET PO SCH (09:04)
[2017-10-18] MEDS: Vitamin B Complex/Vit C/Vit E 1 EACH TABLET PO SCH (09:04)
[2017-10-18] MEDS: Renal Vitamin 1 MG CAPSULE PO SCH (09:04)
[2017-10-18] MEDS: Gabapentin 300 MG CAPSULE PO SCH (09:04)
[2017-10-18] MEDS: Folic Acid 1 MG TABLET PO SCH (09:04)
[2017-10-18] MEDS: traZODone 50 MG TABLET PO SCH (09:05)
[2017-10-18] MEDS: Thiamine (B-1) 100 MG TABLET PO SCH (09:05)
[2017-10-18] MEDS: Cyanocobalamin (B-12) 1,000 MCG TABLET PO SCH (09:05)
--- NOTE | 2017-10-18 11:03 | Discharge Summary ---
Date of Encounter: 10/18/17 Time of Encounter: 10:00 - Discharge Diagnosis (1) Alcohol withdrawal Priority: Primary Status: Acute Comments: Acute alcohol withdrawal with possible DTs - symptoms now improved Continue Thiamine, Folic Acid, Librium Ativan as needed for seizures and withdrawal symptoms Aspiration precaution, seizure precaution Return if symptoms worsen, follow-up with PCP Advised alcohol cessation Qualifiers: Complication of substance-induced condition: uncomplicated Qualified Code(s ): F10.230 - Alcohol dependence with withdrawal, uncomplicated (2) Alcohol dependence Priority: Primary Status: Chronic Comments: History of chronic alcohol abuse with alcohol dependence Counseling about cessation Qualifiers: Substance use status: in withdrawal Complication of substance-induced condition: uncomplicated Qualified Code(s): F10.230 - Alcohol dependence with withdrawal, uncomplicated (3) Hepatitis C Priority: Primary Status: Chronic Qualifiers: Viral hepatitis chronicity: chronic Hepatic coma status: without hepatic coma Qualified Code(s): B18.2 - Chronic viral hepatitis C (4) Hypertension Priority: Primary Status: Chronic Comments: Essential hypertension, controlled Continue Norvasc Qualifiers: Hypertension type: essential hypertension Qualified Code(s): I10 - Essential (primary) hypertension (5) Pancreatic insufficiency Priority: Primary Status: Chronic Comments: Chronic, continue Lipase/Protease/Amylase With chronic malnutrition (6) Schizophrenia Priority: Primary Status: Chronic Comments: Stable, continue Depakote and Seroquel Qualifiers: Schizophrenia type: unspecified Qualified Code(s): F20.9 - Schizophrenia, unspecified - Discharge Medications Prescriptions: Folic Acid 1 mg PO DAILY #30 tablet Thiamine (B-1) [Vitamin B-1] 100 mg PO DAILY #30 tablet Home Medications: Albuterol Sulfate [Proair Hfa] 2 puff IH Q4H PRN 12/21/16 [History] Quetiapine Fumarate [Seroquel] 300 mg PO HS 12/21/16 [History] Lipase/Protease/Amylase [Creon Dr 12,000 Units Capsule] 3 cap PO TIDWM 03/15/17 [History] Omeprazole [PriLOSEC] 20 mg PO DAILY 03/15/17 [History] Amlodipine Besylate 10 mg PO DAILY 03/27/17 [History] Budesonide/Formoterol 160/4.5 [Symbicort 160/4.5] 1 puff IH BIDR 03/27/17 [ History] Cyanocobalamin (Vitamin B-12) [Vitamin B-12] 500 mcg PO DAILY 06/03/17 [History] Divalproex (24 HR) [Depakote ER (24 HR)] 1,250 mg PO HS 06/03/17 [History] traZODone [TraZODone] 50 mg PO TID 06/29/17 [History] Amitriptyline [Elavil] 25 mg PO HS #30 tablet 08/17/17 [Rx] Gabapentin [Neurontin] 300 mg PO TID 09/27/17 [History] Renal Vitamin [Renal Caps Softgel] 1 mg PO DAILY #30 capsule 10/03/17 [Rx] Vitamin B Complex/Vit C/Vit E [Stresstab] 1 each PO DAILY #30 tablet 10/03/17 [ Rx] Folic Acid 1 mg PO DAILY #30 tablet 10/18/17 [Rx] Thiamine (B-1) [Vitamin B-1] 100 mg PO DAILY #30 tablet 10/18/17 [Rx] Allergies/Adverse Reactions: 3 Allergy/AdvReac Type Severity Reaction Status Date / Time Buspirone [From BuSpar] AdvReac See Verified 09/13/17 06:46 Comments tramadol AdvReac See Verified 09/13/17 06:46 Comments Date of admission: 10/15/17 13:07 Primary care physician: PCP NONE Anticipated date of discharge: 10/18/17 - Patient Status Disposition: Home, Self-Care Condition: Good Functional capacity at discharge: independent ambulation Overall status at discharge: patient is back to baseline - Discharge Instructions Instructions: Thiamine (Vitamin B-1) (By mouth), Folic Acid (By mouth), Chronic Hypertension (DC), Alcohol Withdrawal (DC) Follow Up With: NONE,PCP [Primary Care Provider] - - Diet and Activity Activity: increase activity as tolerated, resume usual activities as tolerated Diet: advance to your usual diet Hospital course: Mr. Chen is a 62 year old male with past medical history of COPD, chronic alcohol abuse, pancreatic insufficiency, hypertension and depression. Admitted for management of alcohol withdrawal and DTs. Patient was on CIWA protocol. He was continued on Librium. He was also on IV Ativan as needed. We continued IV thiamine and folic acid. Patient is also on Zofran and Protonix. Patient states that he did not have a drink for about 2 days because of financial issues. Patient did not have any other acute events or complications during his stay. He has been counseled about smoking cessation and also advised to abstain from alcohol. Advised return if symptoms worsen. He is currently tolerating oral diet well and ambulating well. Patient has been explained about his condition and plan of care in detail. He understood and agreed. No unanswered questions. Time spent discussing smoking cessation with patient: 3 to 10 minutes - Time Spent with Patient Total time spent providing and/or coordinating discharge services: Less than 30 minutes - Constitutional Vitals: Temp Pulse Resp BP Pulse Ox 99.6 F 91 16 162/98 96 10/18/17 06:51 10/18/17 06:51 10/18/17 07:37 10/18/17 06:51 10/18/17 07:37 General appearance: Present: cooperative, A&O X 3, pleasant, no acute distress, answers questions appropriately - Head Head exam: Present: atraumatic - Eye Eye exam: Present: EOMI - ENT ENT exam: Present: mucous membranes moist - Respiratory Respiratory exam: Present: CTAB. Absent: accessory muscle use, chest wall tenderness, rales, respiratory distress, rhonchi, wheezes, tachypnea - Cardiovascular Cardiovascular exam: Present: RRR, +S1, +S2 - GI/Abdominal GI/Abdominal exam: Present: soft. Absent: distended, firm, guarding, tenderness - Extremities Exam Extremities exam: Present: radial pulses palpable and symmetrical. Absent: calf tenderness, cyanotic, pedal edema - Neurological Exam Neurological exam: Present: alert, oriented X3, no focal deficits. Absent: facial droop, speech deficit
== END 2017-10-18 12:30 | disposition home or self-care (01) | DRG 897 ==
LOC: 3BNU 09:07 → EMEROO 09:07 → 3BNU 13:51
PROVIDERS: ADMIT Internal Medicine Nephrology; ATTEND Registered Nurse

== ENCOUNTER 2017-10-26 14:08 | Inpatient (IN) ==
[2017-10-26] MEDS ORDERED: Thiamine (B-1) 100 MG TABLET PO ONE (15:15)
[2017-10-26] MEDS ORDERED: Renal Vitamin 1 MG CAPSULE PO ONE (15:15)
[2017-10-26] MEDS ORDERED: *HR* LORazepam 2 MG/ML VIAL IVP ONE ×4 (15:16→20:06)
--- NOTE | 2017-10-26 15:26 | Emergency Department Note ---
Disposition Clinical Impression: Alcohol withdrawal Qualifiers: Complication of substance-induced condition: uncomplicated Qualified Code(s): F10.230 - Alcohol dependence with withdrawal, uncomplicated Disposition: Admitted As Inpatient Condition: Good Forms: ED Satisfaction Letter General Adult HPI - General Chief complaint: ED Alcohol Abuse Stated complaint: detoxing, chest pain Time Seen by Provider: 10/26/17 15:04 Source: patient, EMS Limitations: no limitations Nursing Notes Reviewed: Yes Vital Signs Reviewed: Yes - History of Present Illness HPI Narrative: 62-year-old male who reports that he normally drinks half a gallon of vodka daily. He ran out of money and said that he also wants to quit drinking. His last drink was on Thursday. He reports no alcohol site from one beer which she drank earlier today which she drank to try and get rid of the withdrawal symptoms. He admits to shaking all over with nausea and vomiting and feeling unwell. He denies any other medical history, but according to his medical history review he has alcoholic hepatitis with potentially coronary arterial disease and COPD. He denies taking any current medications. He was just admitted 1 week ago for the same. He reports that he did have mild improvement of symptoms after drinking the beer. Radiation: non-radiation Pain Severity: severe Pain Scale: 9 Consistency: constant Worsens with: nothing Associated symptoms: Reports: denies other symptoms Treatments Prior to Arrival: none - Related Data Home Medications Medication Instructions Recorded Confirmed Albuterol Sulfate [Proair Hfa] 2 puff IH Q4H PRN 12/21/16 10/15/17 Quetiapine Fumarate [Seroquel] 300 mg PO HS 12/21/16 10/15/17 Lipase/Protease/Amylase [Ananya Kern 3 cap PO TIDWM 03/15/17 10/15/17 12,000 Units Capsule] Omeprazole [PriLOSEC] 20 mg PO DAILY 03/15/17 10/15/17 Amlodipine Besylate 10 mg PO DAILY 03/27/17 10/15/17 Budesonide/Formoterol 160/4.5 1 puff IH BIDR 03/27/17 10/15/17 [Symbicort 160/4.5] Cyanocobalamin (Vitamin B-12) 500 mcg PO DAILY 06/03/17 10/15/17 [Vitamin B-12] Divalproex (24 HR) [Depakote ER 1,250 mg PO HS 06/03/17 10/15/17 (24 HR)] traZODone [TraZODone] 50 mg PO TID 06/29/17 10/15/17 Gabapentin [Neurontin] 300 mg PO TID 09/27/17 10/15/17 Previous Rx's Medication Instructions Recorded Amitriptyline [Elavil] 25 mg PO HS #30 tablet 08/17/17 Renal Vitamin [Renal Caps Softgel] 1 mg PO DAILY #30 capsule 10/03/17 Vitamin B Complex/Vit C/Vit E 1 each PO DAILY #30 tablet 10/03/17 [Stresstab] Folic Acid 1 mg PO DAILY #30 tablet 10/18/17 Thiamine (B-1) [Vitamin B-1] 100 mg PO DAILY #30 tablet 10/18/17 Allergies Allergy/AdvReac Type Severity Reaction Status Date / Time Buspirone [From BuSpar] AdvReac See Verified 10/26/17 14:20 Comments tramadol AdvReac See Verified 10/26/17 14:20 Comments All systems ED: reviewed and negative except as stated. Constitutional: Denies: fever Cardiovascular: Denies: chest pain Respiratory: Denies: cough, dyspnea Gastrointestinal: Reports: nausea. Denies: abdominal pain Integumentary: Denies: rash Neurological: Reports: headache Past Medical History - Past Medical History Medical history: Reports: COPD, GERD, hypertension, migraine, myocardial infarction, other Surgical history: Reports: appendectomy, cholecystectomy, other Psychiatric history: Reports: anxiety, bipolar, depression, schizophrenia - Social History Smoking Status: Current every day smoker Smokeless Tobacco Status: No Alcohol use: Reports: heavy Drug use: Reports: none Physical Exam - General Limitations: no limitations General appearance: alert, anxious - Head Head exam: atraumatic - Eye Eye exam: Present: normal appearance, PERRL - ENT ENT exam: normal exam, normal oropharynx - Neck Neck exam: Present: normal inspection - Chest Chest inspection: Present: normal inspection - Respiratory Respiratory exam: Present: normal lung sounds bilaterally. Absent: respiratory distress - Cardiovascular Cardiovascular exam: Present: normal rhythm, tachycardia - Extremities Exam Extremities exam: Present: normal inspection - Neurological Exam Neurological exam: Present: alert, oriented X3, CN II-XII intact - Psychiatric Psychiatric exam: Present: anxious - Skin Skin exam: Present: warm, dry Course Course Narrative: Initial CIWA was 18. Labwork is negative for acute disease. After 4mg of ativan his symptoms have improved markedly. Will admit. Vital Signs Temperature 98.0 F 10/26/17 14:18 Pulse Rate 106 10/26/17 14:18 Respiratory Rate 22 10/26/17 14:18 Blood Pressure 172/98 10/26/17 14:18 O2 Sat by Pulse Oximetry 100 10/26/17 14:18 Temperature 98.0 F 10/26/17 14:18 Pulse Rate 105 10/26/17 17:04 Respiratory Rate 17 10/26/17 17:04 Blood Pressure 189/113 10/26/17 17:04 O2 Sat by Pulse Oximetry 96 10/26/17 17:04 Oxygen Delivery Oxygen Delivery Room Air Medical Decision Making - Medical Records Medical records reviewed: Yes I reviewed the patient's medical records. - Lab Data Lab results reviewed: Yes I reviewed the patient's lab results. Result diagrams: 10/26/17 15:35 10/26/17 15:35 Lab Results 10/26/17 10/26/17 Range/Units 15:35 15:35 WBC 5.2 (4.3-11.1) K/mcL RBC 5.13 (4.19-5.50) M/mcL Hgb 14.1 (12.9-16.9) g/dL Hct 44.4 (37.5-50.1) % MCV 86.5 (83.0-100.0) fL MCH 27.5 L (28.0-33.3) pg MCHC 31.8 (31.6-35.5) g/dL RDW 16.5 H (11.5-14.5) % Plt Count 141 (140-400) K/mcL MPV 9.3 L (9.4-12.4) fL Immature Gran % 0.4 (0-4) % Seg Neutrophils % 58.0 % Lymphocytes % 28.2 % Monocytes % 11.5 % Eosinophils % 1.1 % Basophils % 0.8 % Neutrophils # 3.0 (1.6-8.9) K/mcL Lymphocytes # 1.5 (0.6-4.6) K/mcL Monocytes # 0.6 (0.0-1.3) K/mcL Eosinophils # 0.1 (0.0-0.6) K/mcL Basophils # 0.0 (0.0-0.2) K/mcL Sodium 141 (136-145) mEq/L Potassium 4.1 (3.5-5.1) mEq/L Chloride 104 (98-107) mEq/L Carbon Dioxide 18 L (23-29) mEq/L BUN 12 (8-23) mg/dL Creatinine 0.98 (0.70-1.30) mg/dL Est GFR ( Amer) > 60 (> 60) Est GFR (Non-Af Amer) > 60 (> 60) BUN/Creatinine Ratio 12 (6-26) Glucose 80 (70-105) mg/dL Calculated Osmolality 291 (280-300) Calcium 10.0 (8.6-10.3) mg/dL Magnesium 1.6 (1.6-2.6) mg/dL Total Bilirubin 0.7 (0.3-1.0) mg/dL Direct Bilirubin 0.2 (0.0-0.2) mg/dL Indirect Bilirubin 0.5 (0.0-1.2) mg/dL AST 135 H (13-39) Units/L ALT 153 H (7-52) Units/L Alkaline Phosphatase 116 H (34-104) Units/L Serum Total Protein 8.8 (6.4-8.9) g/dL Albumin 5.0 (3.5-5.7) g/dL Globulin 3.8 H (2.4-3.5) g/dL Albumin/Globulin Ratio 1.3 (1.1-2.2) Lipase 9 L (11-82) Units/L Ethyl Alcohol 17 H (0-10) mg/dL
[2017-10-26 15:47] LABS: Basophils % 0.8 %; Eosinophils # 0.1 K/mcL (0.0-0.6); Eosinophils % 1.1 %; Hematocrit 44.4 % (37.5-50.1); Hemoglobin 14.1 g/dL (12.9-16.9); Immature Granulocytes % 0.4 % (0-4); Lymphocytes # 1.5 K/mcL (0.6-4.6); Lymphocytes % 28.2 %; Mean Corpuscular HGB Conc 31.8 g/dL (31.6-35.5); Mean Corpuscular Hemoglobin 27.5 pg (28.0-33.3); Mean Corpuscular Volume 86.5 fL (83.0-100.0); Mean Platelet Volume 9.3 fL (9.4-12.4); Monocytes # 0.6 K/mcL (0.0-1.3); Monocytes % 11.5 %; Platelet Count 141 K/mcL (140-400); Red Blood Count 5.13 M/mcL (4.19-5.50); Red Cell Distribution Width 16.5 % (11.5-14.5)
[2017-10-26 15:54] LABS: Bilirubin,Direct 0.2 mg/dL (0.0-0.2); Bilirubin,Indirect 0.5 mg/dL (0.0-1.2); Bilirubin,Total 0.7 mg/dL (0.3-1.0); Carbon Dioxide 18 mEq/L (23-29); Chloride 104 mEq/L (98-107); Magnesium 1.6 mg/dL (1.6-2.6); Potassium 4.1 mEq/L (3.5-5.1); Sodium 141 mEq/L (136-145)
[2017-10-26 15:57] LABS: Ethanol 17 mg/dL (0-10)
[2017-10-26 16:01] LABS: Alanine Aminotransferase 153 Units/L (7-52); Albumin/Globulin Ratio 1.3 (1.1-2.2); Alkaline Phosphatase 116 Units/L (34-104); Aspartate Amino Transferase 135 Units/L (13-39); BUN/Creatinine Ratio 12 (6-26); Blood Urea Nitrogen 12 mg/dL (8-23); Globulin 3.8 g/dL (2.4-3.5); Glucose 80 mg/dL (70-105); Lipase 9 Units/L (11-82); Osmolality,Calculated 291 (280-300); Total Protein 8.8 g/dL (6.4-8.9); eGFR For African Americans > 60 (> 60); eGFR For Non-African Americans > 60 (> 60)
--- NOTE | 2017-10-26 17:05 | Emergency Department Note ---
START Narrative - START START: I examined this patient and my medical decision-making was reviewed with the Resident Physician. I agree with the documented findings, disposition and treatment plan as described except to the extent set forth below. 62 year old male who is a chronic alcoholic and drinks about a galloon of liquor a day and most recently stopped on Thursday. he has been admited to the hospital for mutliple time for alcohol withdrawl. It appears he has ran out of money for alcohol. We will admit to medicine for ETOH withdrawl
[2017-10-26] MEDS ORDERED: *HR* LORazepam 2 MG/ML VIAL IVP PRN (19:50)
[2017-10-26] MEDS ORDERED: Naloxone 0.4 MG/ML INJ IVP PRN (20:18)
[2017-10-26] MEDS ORDERED: *HR* OxyCODONE Immed Rel 5 MG TABLET PO PRN (20:18)
--- NOTE | 2017-10-26 20:23 | Internal Med History&Physical ---
Date of Encounter: 10/26/17 Time of Encounter: 20:21 Assessment and Plan (1) Alcohol withdrawal Current visit: Yes Status: Acute Acute alcohol withdrawal Start Librium, Ativan in high doses per CIWA scale Consider Precedex, and consider ICU admission if worse Aspiration and fall precautions Check a chest x-ray due to history of empyema/lung abscess and pneumonia Omeprazole for GI prophylaxis and subcutaneous heparin for DVT prophylaxis. The patient will be admitted as inpatient, expected to stay more than 2 midnights. Full code. Time spent on this admission 40 minutes Qualifiers: Complication of substance-induced condition: with perceptual disturbance Qualified Code(s): F10.232 - Alcohol dependence with withdrawal with perceptual disturbance (2) Atrial fibrillation Current visit: No Status: Acute Stable Qualifiers: Atrial fibrillation type: paroxysmal Qualified Code(s): I48.0 - Paroxysmal atrial fibrillation (3) Transaminitis Current visit: No Status: Acute Secondary to alcohol abuse, history of alcoholic hepatitis (4) Tremor Current visit: No Status: Acute (5) Bipolar disorder Current visit: No Status: Chronic Qualifiers: Active/Remission status: currently active Current bipolar episode type: depressed Psychotic features: without psychotic features Qualified Code(s): F31.4 - Bipolar disorder, current episode depressed, severe, without psychotic features (6) COPD (chronic obstructive pulmonary disease) Current visit: No Status: Chronic Stable, no exacerbation Qualifiers: Emphysema type: unspecified Qualified Code(s): J43.9 - Emphysema, unspecified (7) HTN (hypertension) Current visit: No Status: Chronic Accelerated hypertension, secondary to alcohol withdrawal Use hydralazine IV as needed, continue amlodipine Qualifiers: Hypertension type: essential hypertension Qualified Code(s): I10 - Essential (primary) hypertension (8) Hepatitis C Current visit: No Status: Chronic Qualifiers: Viral hepatitis chronicity: chronic Hepatic coma status: without hepatic coma Qualified Code(s): B18.2 - Chronic viral hepatitis C (9) Morbid obesity with BMI of 40.0-44.9, adult Current visit: No Status: Chronic (10) Pancreatic insufficiency Current visit: No Status: Chronic Pancreatic enzymes (11) Tobacco abuse Current visit: No Status: Chronic Smoking cessation counseling, nicotine patch Internal Medicine - H&P: HPI Chief complaint: Alcohol withdrawal Admitted From: Emergency Dept History of present illness: Mr. Chen is a 62 year old male with past medical history of alcoholic hepatitis , alcohol abuse and prior withdrawals, CVAs, TIAs, bipolar disorder, schizophrenia who was discharged from this hospital on 10/18/2017 where he was treated for the same problem, alcohol withdrawal. Patient says that he has been drinking 1/5 of vodka every day up until Thursday, his alcohol level is 17 but he said he drank a beer today just to stop shaking. CO2 is 18 AST is 135 ALT is 153 alkaline phosphatase 116. Heart rate is 107, blood pressure 190/ 107. The patient needs shaking constantly, very anxious, complaining of nausea vomiting and abdominal pain. Denies any cough but he has history of recurrent pneumonia Past Med Surg Social Fam HX - Past Medical History Medical history: COPD (Not oxygen dependent), GERD, hyperlipidemia, hypertension , migraine, myocardial infarction, other (CAD, pancreatic insufficiency, lung abscess, neuropathy, migraines, hepatitis C, bipolar disorder, CVAs and TIAs, suicidal ideation, empyema, tobacco use, alcohol abuse and withdrawal, schizophrenia) Psychiatric history: anxiety, bipolar, depression, schizophrenia - Past Surgical History Surgical History: appendectomy, cholecystectomy, other (Partial pancreatectomy, bowel resection, prior PEG tube, temporary ileostomy and reversal) - Social History Smoking Status: Current every day smoker Packs per day: 1 pack per day Smokeless Tobacco Status: No Alcohol use: heavy (1 fifth of vodka daily) Drug use: none - Family History Mother Adopted: No Family Member Ethnicity: Non- Living Status: Still Living Hx Family Cardiac Disorders: Yes Hx Family Respiratory Disorders: No Hx Family Cancer: No Hx Family GI Disorders: No Hx Family Endocrine Disorder: No Hx Family Neuromuscular Disorders: No Hx Family Neurologic Disorders: Yes Hx Family HEENT Disorders: No Hx Family Autoimmune Disorders: No Father Living Status: - Additional Family History Additional family history: Mother with neuropathy, colon cancer and hypertension Internal Medicine - H&P: Meds Albuterol Sulfate [Proair Hfa] 2 puff IH Q4H PRN 12/21/16 [History] Lipase/Protease/Amylase [Ananya Dr 12,000 Units Capsule] 3 cap PO TIDWM 03/15/17 [History] Omeprazole [PriLOSEC] 20 mg PO DAILY 03/15/17 [History] Amlodipine Besylate 10 mg PO DAILY 03/27/17 [History] Budesonide/Formoterol 160/4.5 [Symbicort 160/4.5] 1 puff IH BIDR 03/27/17 [ History] Cyanocobalamin (Vitamin B-12) [Vitamin B-12] 500 mcg PO DAILY 06/03/17 [History] Amitriptyline [Elavil] 25 mg PO HS #30 tablet 08/17/17 [Rx] Folic Acid 1 mg PO DAILY #30 tablet 10/18/17 [Rx] Thiamine (B-1) [Vitamin B-1] 100 mg PO DAILY #30 tablet 10/18/17 [Rx] Cholecalciferol (D-3) [Vitamin D] 1,000 unit PO DAILY 10/26/17 [History] Lactobacillus Acidophilus [Acidophilus] 1 each PO BID 10/26/17 [History] Magnesium Oxide [Mag-Ox] 400 mg PO DAILY 10/26/17 [History] Pregabalin [Lyrica] 150 mg PO BID 10/26/17 [History] SUMAtriptan succinate [Imitrex] 6 mg SQ AD PRN 10/26/17 [History] 3 Allergy/AdvReac Type Severity Reaction Status Date / Time Buspirone [From BuSpar] AdvReac See Verified 10/26/17 14:20 Comments tramadol AdvReac See Verified 10/26/17 14:20 Comments All Systems PM: A 10-system review of systems was performed and is negative for pertinent findings except as documented above in the HPI. Review of systems: No fevers or chills, other systems out of the 10 review were negative - Constitutional Vitals: Temp Pulse Resp BP Pulse Ox 98.0 F 102 20 185/110 99 10/26/17 14:18 10/26/17 18:23 10/26/17 18:23 10/26/17 18:23 10/26/17 18:23 General appearance: Present: A&O X 3 - Head Head exam: Present: atraumatic, normocephalic - Eye Eye exam: Present: PERRL, conjuntiva pink, sclera anicteric Pupils: Present: PERRL - Neck Neck exam general surgery: Present: supple, trachea midline. Absent: lymphadenopathy - Respiratory Respiratory exam: Present: decreased breath sounds, CTAB. Absent: accessory muscle use, rales, rhonchi, wheezes - Cardiovascular Cardiovascular exam: Present: RRR, +S1, +S2, tachycardia. Absent: diastolic murmur, gallop, rubs, systolic murmur - GI/Abdominal GI/Abdominal exam: Present: normal bowel sounds, soft, no peritoneal signs. Absent: distended, tenderness - Extremities Exam Extremities exam: Present: warm, radial pulses palpable and symmetrical. Absent : calf tenderness, cyanotic, pedal edema - Neurological Exam Neurological exam: Present: CN II-XII intact, oriented X3, no focal deficits. Absent: pronater drift, facial droop, speech deficit Additional comments: Persistent resting tremors - Skin Skin exam: Present: dry, intact Internal Med - H&P Results - Labs CBC & Chem 7: 10/26/17 15:35 10/26/17 15:35
[2017-10-26] MEDS ORDERED: Ipratropium/Albuterol Neb 3 ML IH PRN (20:30)
[2017-10-26] MEDS: 0.9 % Sodium Chloride 1,000 ML IVC SCH (22:11)
[2017-10-26] MEDS: *HR* LORazepam 2 MG/ML VIAL IVP PRN ×2 (22:11→23:50)
[2017-10-26] MEDS: amLODIPine 5 MG TABLET PO SCH (23:19)
[2017-10-26] MEDS: *HR* Heparin 5,000 UNIT/ML VIAL SQ SCH (23:19)
[2017-10-26] MEDS: Pregabalin 75 MG CAPSULE PO SCH (23:19)
[2017-10-26] MEDS: Acetaminophen 325 MG TABLET PO PRN (23:21)
[2017-10-26] MEDS: Nicotine 21 MG PATCH.TD24 TD SCH (23:21)
[2017-10-27] MEDS: Ondansetron 4 MG/2 ML VIAL IVP PRN ×2 (00:15→09:53)
[2017-10-27] MEDS: *HR* LORazepam 2 MG/ML VIAL IVP PRN ×10 (01:10→23:27)
[2017-10-27] MEDS: Acetaminophen 325 MG TABLET PO PRN ×2 (05:40→21:17)
[2017-10-27 07:25] LABS: Alanine Aminotransferase 106 Units/L (7-52); Albumin/Globulin Ratio 1.2 (1.1-2.2); Alkaline Phosphatase 97 Units/L (34-104); Aspartate Amino Transferase 82 Units/L (13-39); BUN/Creatinine Ratio 16 (6-26); Bilirubin,Total 0.7 mg/dL (0.3-1.0); Blood Urea Nitrogen 16 mg/dL (8-23); Calcium 9.3 mg/dL (8.6-10.3); Carbon Dioxide 22 mEq/L (23-29); Chloride 105 mEq/L (98-107); Globulin 3.3 g/dL (2.4-3.5); Glucose 125 mg/dL (70-105); Magnesium 1.8 mg/dL (1.6-2.6); Osmolality,Calculated 287 (280-300); Phosphorous 3.7 mg/dL (2.7-4.5); Potassium 3.7 mEq/L (3.5-5.1); Sodium 137 mEq/L (136-145); Total Protein 7.3 g/dL (6.4-8.9); eGFR For African Americans > 60 (> 60); eGFR For Non-African Americans > 60 (> 60)
[2017-10-27] MEDS: Pregabalin 75 MG CAPSULE PO SCH ×2 (08:21→21:14)
[2017-10-27] MEDS: Aspirin Enteric Coated 81 MG Tablet PO SCH (08:21)
[2017-10-27] MEDS: Thiamine (B-1) 100 MG TABLET PO SCH (08:21)
[2017-10-27] MEDS: amLODIPine 5 MG TABLET PO SCH (08:21)
[2017-10-27] MEDS: Cyanocobalamin (B-12) 1,000 MCG TABLET PO SCH (08:22)
[2017-10-27] MEDS: *HR* Heparin 5,000 UNIT/ML VIAL SQ SCH ×3 (08:22→23:27)
[2017-10-27] MEDS: Folic Acid 1 MG TABLET PO SCH (08:22)
[2017-10-27] MEDS: Nicotine 21 MG PATCH.TD24 TD SCH (08:22)
[2017-10-27] MEDS: Magnesium Oxide 400 MG TABLET PO SCH (08:22)
[2017-10-27] MEDS: 0.9 % Sodium Chloride 1,000 ML IVC SCH (08:33)
--- NOTE | 2017-10-27 10:15 | Internal Med Progress Note ---
<Matheus Gamble - Last Filed: 10/27/17 16:17> Date of Encounter: 10/27/17 Time of Encounter: 09:15 - Assessment and plan (1) Alcohol withdrawal Current Visit: No Status: Acute Assessment and plan: - Well-known history of alcohol abuse and associated acute withdrawal. - Continue CIWA protocol but will increase Librium to 25 mg QID and decrease dosage of as needed Ativan. - Continue multi-vitamin supplement. - Aspiration and fall precautions. - Continue close monitoring. Qualifiers: Complication of substance-induced condition: uncomplicated Qualified Code(s ): F10.230 - Alcohol dependence with withdrawal, uncomplicated (2) Tremor Current Visit: No Status: Acute Assessment and plan: - On CIWA protocol. (3) Transaminitis Current Visit: No Status: Acute Assessment and plan: - AST 135, AL 153 and alkaline phosphatase 116 on admission. - Improves as AST 82, ALT 106 and alkaline phosphatase 97 today. (4) Atrial fibrillation Current Visit: No Status: Acute Assessment and plan: - Currently rate-controlled. Qualifiers: Atrial fibrillation type: paroxysmal Qualified Code(s): I48.0 - Paroxysmal atrial fibrillation (5) Bipolar disorder Current Visit: No Status: Chronic Assessment and plan: - Continue home psychiatric medications. Qualifiers: Active/Remission status: in remission of unspecified degree Qualified Code( s): F31.70 - Bipolar disorder, currently in remission, most recent episode unspecified (6) COPD (chronic obstructive pulmonary disease) Current Visit: No Status: Chronic Assessment and plan: - Continue Duoneb. Qualifiers: Emphysema type: unspecified Qualified Code(s): J43.9 - Emphysema, unspecified (7) Essential hypertension Current Visit: No Status: Chronic Assessment and plan: - Continue Norvasc and prn hydralazine for blood pressure control. (8) Hepatitis C Current Visit: No Status: Chronic Assessment and plan: - Known history of hepatitis C. Qualifiers: Viral hepatitis chronicity: chronic Hepatic coma status: without hepatic coma Qualified Code(s): B18.2 - Chronic viral hepatitis C (9) Pancreatic insufficiency Current Visit: No Status: Chronic Assessment and plan: - Continue Creon. (10) Tobacco abuse Current Visit: No Status: Chronic Assessment and plan: - Smoking cessation counseling. - Continue nicotine patch. (11) DVT prophylaxis Current Visit: No Status: Acute Assessment and plan: - Continue SQ heparin. - Subjective Interval history: Patient was seen and examined this morning. Patient complains of some abdominal pain and tremor. Patient admits last alcohol use was 1/5 of Vodka on Thursday. Patient denies nausea, vomiting, diarrhea at this time. - Constitutional Vitals: Temp Pulse Resp BP Pulse Ox 98.0 F 89 17 143/98 95 10/27/17 07:14 10/27/17 08:41 10/27/17 07:14 10/27/17 07:14 10/27/17 07:14 General appearance: Present: A&O X 3, no acute distress - Head Head exam: Present: normal inspection - Eye Eye exam: Present: EOMI, conjuntiva pink, sclera anicteric - Neck Neck exam general surgery: Present: normal inspection, supple, trachea midline - Respiratory Respiratory exam: Present: CTAB. Absent: accessory muscle use - Cardiovascular Cardiovascular exam: Present: RRR, +S1, +S2 - GI/Abdominal GI/Abdominal exam: Present: normal bowel sounds, soft, tenderness (lower quadrants), no peritoneal signs. Absent: guarding - Extremities Exam Extremities exam: Present: warm. Absent: cyanotic, pedal edema - Neurological Exam Neurological exam: Present: alert. Absent: facial droop, speech deficit - Skin Skin exam: Present: dry, warm Internal Medicine: Result - Labs CBC & Chem 7: 10/26/17 15:35 10/27/17 05:57 Labs: BMP 10/27/17 05:57 Sodium 137 Potassium 3.7 Chloride 105 Carbon Dioxide 22 L BUN 16 Creatinine 0.99 Glucose 125 H Calcium 9.3 Liver Function 10/27/17 Range/Units 05:57 Total Bilirubin 0.7 (0.3-1.0) mg/dL AST 82 H (13-39) Units/L ALT 106 H (7-52) Units/L Alkaline Phosphatase 97 (34-104) Units/L Albumin 4.0 (3.5-5.7) g/dL Consult Discharge Plan - Plan Referrals: Kenyon Matias [Non-Partnered Physician] - 11/04/17 9:00 am (THIS IS LOCATED ACROSS FROM THE [facility]) NONE,PCP [Primary Care Provider] - <Seth Farooq - Last Filed: 10/27/17 18:50> Date of Encounter: 10/27/17 - Constitutional Vitals: Temp Pulse Resp BP Pulse Ox 97.8 F 89 17 158/104 98 10/27/17 16:59 10/27/17 16:59 10/27/17 16:59 10/27/17 16:59 10/27/17 16:59 Internal Medicine: Result - Labs CBC & Chem 7: 10/26/17 15:35 10/27/17 05:57 Labs: BMP 10/27/17 05:57 Sodium 137 Potassium 3.7 Chloride 105 Carbon Dioxide 22 L BUN 16 Creatinine 0.99 Glucose 125 H Calcium 9.3 Liver Function 10/27/17 Range/Units 05:57 Total Bilirubin 0.7 (0.3-1.0) mg/dL AST 82 H (13-39) Units/L ALT 106 H (7-52) Units/L Alkaline Phosphatase 97 (34-104) Units/L Albumin 4.0 (3.5-5.7) g/dL - Attending Attestation I examined this patient and my medical decision-making was reviewed with the Resident Physician Dr. Gamble. I agree with the documented findings, disposition and treatment plan as described except to the extent set forth below. Mr. Chen is a 62 year old male with past medical history of alcoholic hepatitis , alcohol abuse and prior withdrawals, CVAs, TIAs, bipolar disorder, schizophrenia who was discharged from this hospital on 10/18/2017 presented to ER with alcohol withdrawl symptoms. Now he is more alert, awake. No tremors noticed Gen: A, A, O x3 Chest: No wheezing no crackles Heart : S1 S2 + RRR a/p 1. Acute alcohol intoxication 2. Acute alcohol withdrawal symptoms counseled to quit drinking not willing go to rehab cont CIWA started tapering Librium
[2017-10-27] MEDS: *HR* LORazepam 0.5 MG TABLET PO PRN (15:53)
[2017-10-28] MEDS: *HR* LORazepam 0.5 MG TABLET PO PRN ×3 (02:29→22:05)
[2017-10-28] MEDS: *HR* LORazepam 2 MG/ML VIAL IVP PRN ×2 (04:59→09:08)
[2017-10-28 05:13] LABS: Basophils % 0.7 %; Eosinophils # 0.2 K/mcL (0.0-0.6); Eosinophils % 3.7 %; Hematocrit 43.5 % (37.5-50.1); Immature Granulocytes % 0.2 % (0-4); Lymphocytes # 1.1 K/mcL (0.6-4.6); Lymphocytes % 28.2 %; Mean Corpuscular HGB Conc 32.2 g/dL (31.6-35.5); Mean Corpuscular Hemoglobin 27.8 pg (28.0-33.3); Mean Corpuscular Volume 86.3 fL (83.0-100.0); Mean Platelet Volume 10.4 fL (9.4-12.4); Monocytes # 0.3 K/mcL (0.0-1.3); Monocytes % 7.9 %; Neutrophils # 2.4 K/mcL (1.6-8.9); Platelet Count 111 K/mcL (140-400); Red Blood Count 5.04 M/mcL (4.19-5.50); Red Cell Distribution Width 16.3 % (11.5-14.5); Segmented Neutrophils % 59.3 %
[2017-10-28 05:30] LABS: Alanine Aminotransferase 122 Units/L (7-52); Albumin 4.5 g/dL (3.5-5.7); Albumin/Globulin Ratio 1.2 (1.1-2.2); Alkaline Phosphatase 109 Units/L (34-104); Aspartate Amino Transferase 104 Units/L (13-39); BUN/Creatinine Ratio 16 (6-26); Bilirubin,Total 0.5 mg/dL (0.3-1.0); Blood Urea Nitrogen 15 mg/dL (8-23); Calcium 9.8 mg/dL (8.6-10.3); Carbon Dioxide 24 mEq/L (23-29); Chloride 107 mEq/L (98-107); Globulin 3.7 g/dL (2.4-3.5); Glucose 102 mg/dL (70-105); Osmolality,Calculated 285 (280-300); Sodium 137 mEq/L (136-145); Total Protein 8.2 g/dL (6.4-8.9); eGFR For African Americans > 60 (> 60); eGFR For Non-African Americans > 60 (> 60)
[2017-10-28] MEDS: Cyanocobalamin (B-12) 1,000 MCG TABLET PO SCH (09:06)
[2017-10-28] MEDS: Thiamine (B-1) 100 MG TABLET PO SCH (09:06)
[2017-10-28] MEDS: amLODIPine 5 MG TABLET PO SCH (09:06)
[2017-10-28] MEDS: Folic Acid 1 MG TABLET PO SCH (09:06)
[2017-10-28] MEDS: Pregabalin 75 MG CAPSULE PO SCH ×2 (09:07→21:01)
[2017-10-28] MEDS: Magnesium Oxide 400 MG TABLET PO SCH (09:07)
[2017-10-28] MEDS: Aspirin Enteric Coated 81 MG Tablet PO SCH (09:07)
[2017-10-28] MEDS: Nicotine 21 MG PATCH.TD24 TD SCH (09:07)
[2017-10-28] MEDS: *HR* Heparin 5,000 UNIT/ML VIAL SQ SCH ×2 (09:08→15:23)
--- NOTE | 2017-10-28 14:53 | Internal Med Progress Note ---
Date of Encounter: 10/28/17 Time of Encounter: 08:30 - Assessment and plan (1) Alcohol withdrawal Current Visit: No Status: Acute Assessment and plan: Counseled to quit drinking pt refused to go to rehab he would like to try tapering dose of Librium improving slowly Cont Librium Cont Atiavn PRN on CIWA d/c IVF Qualifiers: Complication of substance-induced condition: uncomplicated Qualified Code(s ): F10.230 - Alcohol dependence with withdrawal, uncomplicated (2) Alcohol intoxication Current Visit: No Status: Acute Qualifiers: Complication of substance-induced condition: with delirium Qualified Code(s ): F10.921 - Alcohol use, unspecified with intoxication delirium (3) Atrial fibrillation Current Visit: No Status: Acute Assessment and plan: Paroxysmal afib rate fairly controlled will start him on Metoporlol not a good candidate to for anticoag due high risk with falls Qualifiers: Atrial fibrillation type: paroxysmal Qualified Code(s): I48.0 - Paroxysmal atrial fibrillation (4) COPD (chronic obstructive pulmonary disease) Current Visit: No Status: Chronic Assessment and plan: stable with hoe regimen not in exacerbation Qualifiers: COPD type: unspecified COPD Qualified Code(s): J44.9 - Chronic obstructive pulmonary disease, unspecified (5) Transaminitis Current Visit: No Status: Acute Assessment and plan: Due to alcohol improving (6) DVT prophylaxis Current Visit: No Status: Acute Assessment and plan: SCD's - Subjective Interval history: Mr. Chen is a 62 year old male with past medical history of alcoholic hepatitis , alcohol abuse and prior withdrawals, CVAs, TIAs, bipolar disorder, schizophrenia who was discharged from this hospital on 10/18/2017 presented to ER with alcohol withdrawl symptoms. He got admitted here for alcohol withdrawl symptoms. He was placed on CIWA scale. Pt stated he is feeling little better today,s till has some tremors and shakiness. Denied any CP / SOB - Constitutional Vitals: Temp Pulse Resp BP Pulse Ox 98.0 F 88 18 137/101 96 10/28/17 13:36 10/28/17 13:36 10/28/17 13:36 10/28/17 13:36 10/28/17 13:36 General appearance: Present: A&O X 3, no acute distress - Head Head exam: Present: atraumatic, normal inspection - Neck Neck exam general surgery: Present: supple - Respiratory Respiratory exam: Present: decreased breath sounds. Absent: rales, respiratory distress, rhonchi, wheezes - Cardiovascular Cardiovascular exam: Present: RRR, +S1, +S2 - GI/Abdominal GI/Abdominal exam: Present: soft. Absent: rebound, rigid, tenderness - Extremities Exam Extremities exam: Absent: calf tenderness, pedal edema, tenderness - Neurological Exam Neurological exam: Present: alert, oriented X3 - Psychiatric Psychiatric exam: Present: anxious Internal Medicine: Result - Labs CBC & Chem 7: 10/28/17 04:55 10/28/17 04:55 Labs: Short CBC 10/28/17 Range/Units 04:55 WBC 4.0 L (4.3-11.1) K/mcL Hgb 14.0 (12.9-16.9) g/dL Hct 43.5 (37.5-50.1) % Plt Count 111 L (140-400) K/mcL Neutrophils # 2.4 (1.6-8.9) K/mcL BMP 10/28/17 04:55 Sodium 137 Potassium 4.0 Chloride 107 Carbon Dioxide 24 BUN 15 Creatinine 0.94 Glucose 102 Calcium 9.8 Liver Function 10/28/17 Range/Units 04:55 Total Bilirubin 0.5 (0.3-1.0) mg/dL AST 104 H (13-39) Units/L ALT 122 H (7-52) Units/L Alkaline Phosphatase 109 H (34-104) Units/L Albumin 4.5 (3.5-5.7) g/dL Consult Discharge Plan - Plan Referrals: Kenyon Matias [Non-Partnered Physician] - 11/04/17 9:00 am (THIS IS LOCATED [facility]CROSS FROM THE [facility]) NONE,PCP [Primary Care Provider] -
[2017-10-29] MEDS: *HR* Heparin 5,000 UNIT/ML VIAL SQ SCH ×2 (00:42→08:51)
[2017-10-29] MEDS: *HR* LORazepam 2 MG/ML VIAL IVP PRN (00:48)
[2017-10-29] MEDS: *HR* LORazepam 0.5 MG TABLET PO PRN (06:21)
[2017-10-29 06:36] LABS: Basophils % 0.6 %; Eosinophils # 0.2 K/mcL (0.0-0.6); Eosinophils % 3.1 %; Hematocrit 40.8 % (37.5-50.1); Immature Granulocytes % 0.6 % (0-4); Lymphocytes # 1.4 K/mcL (0.6-4.6); Mean Corpuscular HGB Conc 31.9 g/dL (31.6-35.5); Mean Corpuscular Hemoglobin 27.9 pg (28.0-33.3); Mean Corpuscular Volume 87.6 fL (83.0-100.0); Mean Platelet Volume 10.1 fL (9.4-12.4); Monocytes # 0.3 K/mcL (0.0-1.3); Monocytes % 6.2 %; Platelet Count 105 K/mcL (140-400); Red Blood Count 4.66 M/mcL (4.19-5.50); Red Cell Distribution Width 16.4 % (11.5-14.5); Segmented Neutrophils % 61.5 %
[2017-10-29 06:59] VITALS: BP 128/87
[2017-10-29 07:15] LABS: Alanine Aminotransferase 147 Units/L (7-52); Albumin 4.3 g/dL (3.5-5.7); Albumin/Globulin Ratio 1.3 (1.1-2.2); Alkaline Phosphatase 98 Units/L (34-104); Aspartate Amino Transferase 144 Units/L (13-39); BUN/Creatinine Ratio 16 (6-26); Bilirubin,Total 0.5 mg/dL (0.3-1.0); Blood Urea Nitrogen 16 mg/dL (8-23); Calcium 9.6 mg/dL (8.6-10.3); Carbon Dioxide 23 mEq/L (23-29); Chloride 108 mEq/L (98-107); Globulin 3.3 g/dL (2.4-3.5); Glucose 112 mg/dL (70-105); Magnesium 1.9 mg/dL (1.6-2.6); Osmolality,Calculated 284 (280-300); Potassium 4.1 mEq/L (3.5-5.1); Sodium 136 mEq/L (136-145); Total Protein 7.6 g/dL (6.4-8.9); eGFR For African Americans > 60 (> 60); eGFR For Non-African Americans > 60 (> 60)
[2017-10-29] MEDS: Thiamine (B-1) 100 MG TABLET PO SCH (08:51)
[2017-10-29] MEDS: Nicotine 21 MG PATCH.TD24 TD SCH (08:51)
[2017-10-29] MEDS: Aspirin Enteric Coated 81 MG Tablet PO SCH (08:51)
[2017-10-29] MEDS: Folic Acid 1 MG TABLET PO SCH (08:52)
[2017-10-29] MEDS: Pregabalin 75 MG CAPSULE PO SCH (08:52)
[2017-10-29] MEDS: amLODIPine 5 MG TABLET PO SCH (08:52)
[2017-10-29] MEDS: Magnesium Oxide 400 MG TABLET PO SCH (08:52)
[2017-10-29] MEDS: Cyanocobalamin (B-12) 1,000 MCG TABLET PO SCH (08:52)
--- NOTE | 2017-10-29 08:56 | Discharge Summary ---
Date of Encounter: 10/29/17 Time of Encounter: 08:52 - Discharge Diagnosis (1) Alcohol withdrawal Priority: Primary Status: Acute Qualifiers: Complication of substance-induced condition: uncomplicated Qualified Code(s ): F10.230 - Alcohol dependence with withdrawal, uncomplicated (2) Alcohol intoxication Priority: Primary Status: Acute Qualifiers: Complication of substance-induced condition: with delirium Qualified Code(s ): F10.921 - Alcohol use, unspecified with intoxication delirium (3) Atrial fibrillation Priority: Secondary Status: Acute Qualifiers: Atrial fibrillation type: paroxysmal Qualified Code(s): I48.0 - Paroxysmal atrial fibrillation (4) COPD (chronic obstructive pulmonary disease) Priority: Secondary Status: Chronic Qualifiers: COPD type: unspecified COPD Qualified Code(s): J44.9 - Chronic obstructive pulmonary disease, unspecified (5) Transaminitis Priority: Secondary Status: Acute (6) DVT prophylaxis Priority: Secondary Status: Acute - Discharge Medications Prescriptions: Aspirin Enteric Coated [Aspirin EC] 81 mg PO DAILY #30 tablet. Chlordiazepoxide [Librium] 25 mg PO TID #12 capsule Nicotine Patch [Nicoderm] 21 mg TD DAILY #30 patch.td24 Home Medications: Albuterol Sulfate [Proair Hfa] 2 puff IH Q4H PRN 12/21/16 [History] Lipase/Protease/Amylase [Ananya Kern 12,000 Units Capsule] 3 cap PO TIDWM 03/15/17 [History] Omeprazole [PriLOSEC] 20 mg PO DAILY 03/15/17 [History] Amlodipine Besylate 10 mg PO DAILY 03/27/17 [History] Budesonide/Formoterol 160/4.5 [Symbicort 160/4.5] 1 puff IH BIDR 03/27/17 [ History] Cyanocobalamin (Vitamin B-12) [Vitamin B-12] 500 mcg PO DAILY 06/03/17 [History] Amitriptyline [Elavil] 25 mg PO HS #30 tablet 08/17/17 [Rx] Folic Acid 1 mg PO DAILY #30 tablet 10/18/17 [Rx] Thiamine (B-1) [Vitamin B-1] 100 mg PO DAILY #30 tablet 10/18/17 [Rx] Cholecalciferol (D-3) [Vitamin D] 1,000 unit PO DAILY 10/26/17 [History] Lactobacillus Acidophilus [Acidophilus] 1 each PO BID 10/26/17 [History] Magnesium Oxide [Mag-Ox] 400 mg PO DAILY 10/26/17 [History] Pregabalin [Lyrica] 150 mg PO BID 10/26/17 [History] SUMAtriptan succinate [Imitrex] 6 mg SQ AD PRN 10/26/17 [History] Aspirin Enteric Coated [Aspirin EC] 81 mg PO DAILY #30 tablet. 10/29/17 [Rx] Chlordiazepoxide [Librium] 25 mg PO TID #12 capsule 10/29/17 [Rx] Nicotine Patch [Nicoderm] 21 mg TD DAILY #30 patch.td24 10/29/17 [Rx] Allergies/Adverse Reactions: 3 Allergy/AdvReac Type Severity Reaction Status Date / Time Buspirone [From BuSpar] AdvReac See Verified 10/26/17 14:20 Comments tramadol AdvReac See Verified 10/26/17 14:20 Comments Date of admission: 10/26/17 20:18 Primary care physician: PCP NONE - Patient Status Disposition: Home, Self-Care Condition: Good Overall status at discharge: patient is back to baseline - Discharge Instructions Follow Up With: Kenyon Matias [Non-Partnered Physician] - 11/04/17 9:00 am (THIS IS LOCATED [facility]CROSS FROM THE [facility]) NONE,PCP [Primary Care Provider] - - Diet and Activity Activity: increase activity as tolerated Diet: low salt diet Hospital course: Mr. Chen is a 62 year old male with past medical history of alcoholic hepatitis , alcohol abuse and prior withdrawals, CVAs, TIAs, bipolar disorder, schizophrenia and paroxysmal afib, who was discharged from this hospital on for alcohol withdrawal symptoms presented to ER with alcohol withdrawal symptoms. Pt was admitted here and placed him on patient monitor and CIWA protocol. He was given Ativan PRN and Librium tapering dose. His symptoms started improving slowly. He refused to go to alcohol rehab centers, however he would like to quit drinking alcohol this time. He wanted to try Librium tapering dose, also he is going to stay with his grand mother this time. So will d/c him in stable condition today. Recommended him to f/u with PCP in one week. - Time Spent with Patient Total time spent providing and/or coordinating discharge services: - Constitutional Vitals: Temp Pulse Resp BP Pulse Ox 98.7 F 97 17 128/87 98 10/29/17 06:57 10/29/17 06:57 10/29/17 06:57 10/29/17 06:57 10/29/17 06:57 General appearance: Present: A&O X 3, no acute distress - Head Head exam: Present: atraumatic, normal inspection - Neck Neck exam general surgery: Present: supple - Respiratory Respiratory exam: Present: decreased breath sounds. Absent: rales, respiratory distress, rhonchi, wheezes - Cardiovascular Cardiovascular exam: Present: RRR, +S1, +S2. Absent: tachycardia - GI/Abdominal GI/Abdominal exam: Present: normal bowel sounds, soft. Absent: rebound, rigid, tenderness - Extremities Exam Extremities exam: Absent: calf tenderness, pedal edema, tenderness - Back Exam Back exam: Absent: CVA tenderness (L), CVA tenderness (R) - Neurological Exam Neurological exam: Present: alert, oriented X3 - Psychiatric Psychiatric exam: Present: normal affect, normal mood
== END 2017-10-29 10:35 | disposition home or self-care (01) | DRG 897 ==
LOC: EMEROO 14:08 → 3BNU 14:08 → 2NNU 20:13 → SUATTDRO 20:18 → 2NNU 23:00
PROVIDERS: ADMIT Registered Nurse; ATTEND Family Medicine

== ENCOUNTER 2017-11-14 11:13 | Inpatient (IN) ==
[2017-11-14] MEDS ORDERED: *HR* LORazepam 2 MG/ML VIAL IVP ONE ×3 (11:19→13:55)
[2017-11-14] MEDS ORDERED: 0.9 % Sodium Chloride 1,000 ML IVC ONE (11:19)
[2017-11-14] MEDS ORDERED: Ondansetron 4 MG/2 ML VIAL IVP ONE (11:21)
--- NOTE | 2017-11-14 11:44 | Emergency Department Note ---
Disposition Clinical Impression: Rib pain on right side, Essential hypertension, Transaminitis, Tobacco abuse Alcohol withdrawal Qualifiers: Complication of substance-induced condition: uncomplicated Qualified Code(s): F10.230 - Alcohol dependence with withdrawal, uncomplicated Alcohol dependence Qualifiers: Substance use status: unspecified alcohol-induced disorder Qualified Code(s): F10.29 - Alcohol dependence with unspecified alcohol-induced disorder Disposition: Admitted As Inpatient Condition: Fair Referrals: NONE,PCP [Primary Care Provider] - Forms: ED Satisfaction Letter, Work/School Release Alcohol HPI - General Chief Complaint: ED General Medical Stated Complaint: ETOH WITHDRAWAL Time Seen by Provider: 11/14/17 11:17 Source: patient, EMS Mode of arrival: EMS Limitations: no limitations Nursing Notes Reviewed: Yes Vital Signs Reviewed: Yes - History of Present Illness HPI Narrative: 62-year-old male well-known to this facility presents to the ER via EMS with a chief complaint of alcohol withdrawal and right chest wall pain. Reports usually drinks a fifth of liquor daily. Last drink was 2 days ago. States he ran out of money. He reports that he has been shaking since yesterday. No seizure-like activity. He has been admitted multiple times for withdrawal in the past. States that he woke up today and the right side of his chest was hurting. He denies any trauma that he is aware of. He did have one episode of dark brown emesis just prior to arrival. Reports a prior history of pancreatitis with multiple procedures but no abdominal pain today. No other complaints. Pt Subjective Complaint: alcohol withdrawal Last Drink: days (ago) Alcohol Type: Liquor Amount of alcohol consumed: A fifth Chronic Alcohol Use: Yes Previous Visits for Alcohol Intoxication?: Yes Recent Trauma: No Associated symptoms: Reports: nausea, vomiting Treatments prior to arrival: none - Related Data Home Medications Medication Instructions Recorded Confirmed Albuterol Sulfate [Proair Hfa] 2 puff IH Q4H PRN 12/21/16 10/26/17 Lipase/Protease/Amylase [Ananya Kern 3 cap PO TIDWM 03/15/17 11/14/17 12,000 Units Capsule] Omeprazole [PriLOSEC] 20 mg PO DAILY 03/15/17 11/14/17 Amlodipine Besylate 10 mg PO DAILY 03/27/17 11/14/17 Budesonide/Formoterol 160/4.5 1 puff IH BIDR 03/27/17 11/14/17 [Symbicort 160/4.5] Cyanocobalamin (Vitamin B-12) 500 mcg PO DAILY 06/03/17 10/26/17 [Vitamin B-12] Cholecalciferol (D-3) [Vitamin D] 1,000 unit PO DAILY 10/26/17 10/26/17 Lactobacillus Acidophilus 1 each PO BID 10/26/17 10/26/17 [Acidophilus] Magnesium Oxide [Mag-Ox] 400 mg PO DAILY 10/26/17 11/14/17 Pregabalin [Lyrica] 150 mg PO BID 10/26/17 11/14/17 SUMAtriptan succinate [Imitrex] 6 mg SQ AD PRN 10/26/17 10/26/17 Previous Rx's Medication Instructions Recorded Amitriptyline [Elavil] 25 mg PO HS #30 tablet 08/17/17 Folic Acid 1 mg PO DAILY #30 tablet 10/18/17 Thiamine (B-1) [Vitamin B-1] 100 mg PO DAILY #30 tablet 10/18/17 Aspirin Enteric Coated [Aspirin EC] 81 mg PO DAILY #30 tablet. 10/29/17 Chlordiazepoxide [Librium] 25 mg PO TID #12 capsule 10/29/17 Nicotine Patch [Nicoderm] 21 mg TD DAILY #30 patch.td24 10/29/17 Allergies Allergy/AdvReac Type Severity Reaction Status Date / Time Buspirone [From BuSpar] AdvReac See Verified 11/14/17 14:01 Comments tramadol AdvReac See Verified 11/14/17 14:01 Comments All systems ED: reviewed and negative except as stated. Cardiovascular: Reports: chest pain (R rib pain) Respiratory: Denies: dyspnea Gastrointestinal: Reports: vomiting. Denies: abdominal pain, nausea, diarrhea Past Medical History - Past Medical History Attestation: Yes The following information was validated with the patient. Source: patient Medical history: Reports: COPD, GERD, hyperlipidemia, hypertension, migraine, myocardial infarction, other Surgical history: Reports: appendectomy, cholecystectomy, other Psychiatric history: Reports: anxiety, bipolar, depression, schizophrenia - Social History Smoking Status: Current every day smoker Smokeless Tobacco Status: No Alcohol use: Reports: heavy Drug use: Reports: none Physical Exam - General Limitations: no limitations General appearance: alert, anxious - Head Head exam: atraumatic, normocephalic - Eye Eye exam: Present: normal appearance - ENT ENT exam: normal exam - Neck Neck exam: Present: normal inspection, full ROM - Chest Chest inspection: Present: normal inspection, symmetric chest wall rise, tenderness (Right lateral tenderness to palpation over the R ribs. No overlying soft tissue changes.) - Respiratory Respiratory exam: Present: normal lung sounds bilaterally - Cardiovascular Cardiovascular exam: Present: regular rate, normal rhythm, normal heart sounds - Abdominal Exam Abdominal exam: Present: soft, Non-Tender, other (There are multiple prior old incisions). Absent: tenderness, distention, guarding, rigidity - Extremities Exam Extremities exam: Present: normal inspection, full ROM - Expanded Upper Extremity Exam Shoulder exam: Present: normal inspection, full ROM Arm exam: Present: normal inspection, full ROM Elbow exam: Present: normal inspection, full ROM Forearm/Wrist exam: Present: normal inspection, full ROM Hand exam: Present: normal inspection, full ROM - Expanded Lower Extremity Exam Hip/Pelvis exam: Present: normal inspection, full ROM Upper leg exam: Present: normal inspection, full ROM Knee exam: Present: normal inspection, full ROM Lower leg exam: Present: normal inspection, full ROM Ankle exam: Present: normal inspection, full ROM Foot/toe exam: Present: normal inspection, full ROM - Neurological Exam Neurological exam: Present: alert, other (Appears anxious. GCS 15. Answers questions appropriately. Tremulous on exam.) - Psychiatric Psychiatric exam: Present: anxious - Skin Skin exam: Present: warm, dry Course Course Narrative: Patient seen and examined. No history of DT. We will place him on seizure precautions. He is noted to be hypertensive here. We will give him 2 g of IV Ativan, check an EKG, chest x-ray with right rib series as well as basic labs and urinalysis. - Reevaluation(s) Reevaluation #1: Patient still having tremors after 2 mg of Ativan. An additional 2 mg is ordered. Reevaluation #2: Patient complaining of tremors again. Additional 1 mg ordered. Chest x-ray shows concern for right lower lobe hospital effusion. We obtained a CT of his chest to evaluate for potential aspiration. Reported as scarring. Vital Signs Temperature 98.4 F 11/14/17 11:14 Pulse Rate 92 11/14/17 11:14 Respiratory Rate 18 11/14/17 11:14 Blood Pressure 176/126 11/14/17 11:14 O2 Sat by Pulse Oximetry 99 11/14/17 11:14 Temperature 98.4 F 11/14/17 11:14 Pulse Rate 94 11/14/17 13:31 Respiratory Rate 20 11/14/17 12:05 Blood Pressure 176/111 11/14/17 13:31 O2 Sat by Pulse Oximetry 96 11/14/17 13:31 Oxygen Delivery Oxygen Delivery Room Air Alcohol - MDM Narrative Medical decision making narrative: 8-year-old male presents to the ER. Alcohol withdrawal. Previous visits for this. Last drink was 2 days ago. Reports he drinks a fifth of liquor a day. He was tremulous here upon arrival. He was given a total 5 mg of Ativan. X- ray with concern for right pleural effusion. CT shows scarring as per radiology read. He is admitted to the hospitalist service for alcohol withdrawal. - Lab Data Lab results reviewed: Yes I reviewed the patient's lab results. Result diagrams: 11/14/17 11:40 11/14/17 11:40 Lab Results 11/14/17 11/14/17 11/14/17 Range/Units 11:40 11:40 11:40 WBC 3.9 L (4.3-11.1) K/mcL RBC 4.66 (4.19-5.50) M/mcL Hgb 12.8 L (12.9-16.9) g/dL Hct 39.2 (37.5-50.1) % MCV 84.1 (83.0-100.0) fL MCH 27.5 L (28.0-33.3) pg MCHC 32.7 (31.6-35.5) g/dL RDW 15.2 H (11.5-14.5) % Plt Count 138 L (140-400) K/mcL MPV 10.0 (9.4-12.4) fL Immature Gran % 0.3 (0-4) % Seg Neutrophils % 64.8 % Lymphocytes % 25.5 % Monocytes % 7.3 % Eosinophils % 1.6 % Basophils % 0.5 % Neutrophils # 2.5 (1.6-8.9) K/mcL Lymphocytes # 1.0 (0.6-4.6) K/mcL Monocytes # 0.3 (0.0-1.3) K/mcL Eosinophils # 0.1 (0.0-0.6) K/mcL Basophils # 0.0 (0.0-0.2) K/mcL Immature Plt Fraction 4.2 (1.1-6.1) % PT (9.4-12.1) Seconds INR Sodium 138 (136-145) mEq/L Potassium 3.5 (3.5-5.1) mEq/L Chloride 99 (98-107) mEq/L Carbon Dioxide 20 L (23-29) mEq/L BUN 9 (8-23) mg/dL Creatinine 0.86 (0.70-1.30) mg/dL Est GFR ( Amer) > 60 (> 60) Est GFR (Non-Af Amer) > 60 (> 60) BUN/Creatinine Ratio 10 (6-26) Glucose 133 H (70-105) mg/dL Calculated Osmolality 287 (280-300) Calcium 9.7 (8.6-10.3) mg/dL Magnesium 1.6 (1.6-2.6) mg/dL Total Bilirubin 1.2 H (0.3-1.0) mg/dL AST 139 H (13-39) Units/L ALT 114 H (7-52) Units/L Alkaline Phosphatase 111 H (34-104) Units/L Troponin I < 0.03 (< 0.04) ng/mL Serum Total Protein 8.6 (6.4-8.9) g/dL Albumin 5.1 (3.5-5.7) g/dL Globulin 3.5 (2.4-3.5) g/dL Albumin/Globulin Ratio 1.5 (1.1-2.2) Lipase 26 (11-82) Units/L Urine Color (Yellow) Urine Clarity (Clear) Urine pH (5.0-8.0) pH Units Ur Specific [place] (1.010-1.025) Urine Protein (Neg-Trace) mg/dL Urine Glucose (UA) (Normal) mg/dL Urine Ketones (Negative) mg/dL Urine Blood (Negative) Urine Nitrite (Negative) Urine Bilirubin (Negative) Urine Urobilinogen (Normal) mg/dL Ur Leukocyte Esterase (Negative) Urine Microscopic RBC (0-3) per hpf Urine Microscopic WBC (0-3) per hpf Ur Squamous Epith Cells (None-Few) per lpf Urine Bacteria (None-Few) per hpf Hyaline Casts (None-Few) per lpf Urine Opiates Screen (Eahzad=710) ng/mL Ur Barbiturates Screen (Afeind=250) ng/mL Ur Phencyclidine Scrn (Cutoff=25) ng/mL Ur Amphetamines Screen (Frftka=7777) ng/mL U Benzodiazepines Scrn ([place]od[place]=403) ng/mL Urine Cocaine Screen (Cutoff= 300) ng/mL U Marijuana (THC) Screen (Cutoff = 50) ng/mL Ethyl Alcohol 24 H (0-10) mg/dL 11/14/17 11/14/17 11/14/17 Range/Units 11:40 12:35 12:35 WBC (4.3-11.1) K/mcL RBC (4.19-5.50) M/mcL Hgb (12.9-16.9) g/dL Hct (37.5-50.1) % MCV (83.0-100.0) fL MCH (28.0-33.3) pg MCHC (31.6-35.5) g/dL RDW (11.5-14.5) % Plt Count (140-400) K/mcL MPV (9.4-12.4) fL Immature Gran % (0-4) % Seg Neutrophils % % Lymphocytes % % Monocytes % % Eosinophils % % Basophils % % Neutrophils # (1.6-8.9) K/mcL Lymphocytes # (0.6-4.6) K/mcL Monocytes # (0.0-1.3) K/mcL Eosinophils # (0.0-0.6) K/mcL Basophils # (0.0-0.2) K/mcL Immature Plt Fraction (1.1-6.1) % PT 11.4 (9.4-12.1) Seconds INR 1.1 Sodium (136-145) mEq/L Potassium (3.5-5.1) mEq/L Chloride (98-107) mEq/L Carbon Dioxide (23-29) mEq/L BUN (8-23) mg/dL Creatinine (0.70-1.30) mg/dL Est GFR ( Amer) (> 60) Est GFR (Non-Af Amer) (> 60) BUN/Creatinine Ratio (6-26) Glucose (70-105) mg/dL Calculated Osmolality (280-300) Calcium (8.6-10.3) mg/dL Magnesium (1.6-2.6) mg/dL Total Bilirubin (0.3-1.0) mg/dL AST (13-39) Units/L ALT (7-52) Units/L Alkaline Phosphatase (34-104) Units/L Troponin I (< 0.04) ng/mL Serum Total Protein (6.4-8.9) g/dL Albumin (3.5-5.7) g/dL Globulin (2.4-3.5) g/dL Albumin/Globulin Ratio (1.1-2.2) Lipase (11-82) Units/L Urine Color Yellow (Yellow) Urine Clarity Clear (Clear) Urine pH 7.0 (5.0-8.0) pH Units Ur Specific [place] 1.015 (1.010-1.025) Urine Protein 100 H (Neg-Trace) mg/dL Urine Glucose (UA) Normal (Normal) mg/dL Urine Ketones 40 H (Negative) mg/dL Urine Blood Trace H (Negative) Urine Nitrite Negative (Negative) Urine Bilirubin Negative (Negative) Urine Urobilinogen Normal (Normal) mg/dL Ur Leukocyte Esterase Negative (Negative) Urine Microscopic RBC 3-5 H (0-3) per hpf Urine Microscopic WBC 0-3 (0-3) per hpf Ur Squamous Epith Cells Few (None-Few) per lpf Urine Bacteria None Seen (None-Few) per hpf Hyaline Casts None Seen (None-Few) per lpf Urine Opiates Screen Negative (Wqyrgr=429) ng/mL Ur Barbiturates Screen Negative (Dbtusv=042) ng/mL Ur Phencyclidine Scrn Negative (Cutoff=25) ng/mL Ur Amphetamines Screen Negative (Trulth=8054) ng/mL U Benzodiazepines Scrn Positive H (Kdhqei=646) ng/mL Urine Cocaine Screen Negative (Cutoff= 300) ng/mL U Marijuana (THC) Screen Negative (Cutoff = 50) ng/mL Ethyl Alcohol (0-10) mg/dL - Radiology Data Radiology results reviewed: Yes I reviewed the patient's radiology results. Ribs w/Chest X-Ray 11/14/17 11:20 IMPRESSION: No definite rib fractures are identified. Persistent small right pleural effusion. Findings suggestive of mild pulmonary interstitial edema. Correlate with volume status. D/ / Esa Ly MD / Esa Ly MD Interpreting Provider: Esa Ly MD Chest CT 11/14/17 12:41 IMPRESSION: No acute intrathoracic process identified. Right lateral basilar scarring accounting for the chest x-ray abnormality. Fatty infiltration of the liver. D/ / Denisse Tyler Cha, MD / Denisse Tyler Cha, MD Interpreting Provider: Denisse Tyler Cha, MD - EKG Data EKG attestation: Yes I reviewed and interpreted this EKG. EKG results narrative: EKG demonstrates sinus rhythm with a rate of 89 bpm. Normal axis. Normal intervals. Normal R-wave progression. No gross ST elevations or depressions. No acute ischemic findings. S.B.A.R. - S.Avani.A.Lucian Situation: Demographics, MOA Background: Presenting Complaint, Relevant PMH, Meds, & Allergies Assessment: Vital Signs, Course and respsone to treatment, Exam Concerns, Patient/Family Expectation, Pertinant Lab Results, Outstanding Labs Recommendation: Barrier(s) to disposition, Recommendation based on pending studies, treatments, or consults S.B.A.RSumeet Report Given to: Dr. Kenya Ca Repor Time: 14:30 Attestation Statement - Attestation Attestation: I examined this patient and my medical decision-making was reviewed with the Resident Physician, Dr. Leavitt. I agree with the documented findings, disposition and treatment plan as described except to the extent set forth below. She is a 62-year-old white male with a history of chronic alcohol abuse and alcoholic liver disease who presents to the emergency department today with concern for withdrawal. Patient having visible shaking and tremors and states his last drink was 72 hours ago. Patient reports that he typically drinks a fifth of alcohol a day and due to an inability to afford any alcohol use not had a drink in the last 72 hours. Patient denies any alcohol withdrawal seizures, but he has been seen numerous times in the emergency department and has had multiple prior admissions for alcohol withdrawal. Patient's also complaining of some right lateral rib pain but denies any history of loss of consciousness falls or syncopal episodes. Denies any history of trauma. Patient denies any anterior chest wall pain, no diaphoresis, no shortness of breath, no cough or hemoptysis. Patient did have an episode of emesis that was nonbloody and routes to the emergency department today. Patient denies any abdominal pain. I agree with patient's physical exam findings as documented. Patient was tachycardic and hypertensive on arrival. Patient's tremulous but in no acute distress. Patient's EKG was negative for any acute ischemia and unchanged from prior EKGs. Patient had IV fluids instituted with thiamine and multivitamins administered. Patient was given Ativan on arrival for his withdrawal symptoms. Labs were drawn and sent and portal chest x-ray was obtained. Laboratory values show a chronic thrombo-cytopenia and transaminitis secondary to his alcoholic liver disease. Patient's chest x-ray shows small right pleural effusion. Patient with chronic right lower lobe changes on prior imaging with prior episodes of pneumonia. Since this is the area that is clinically painful for the patient we will obtain CT imaging for further evaluation for possible pneumonia. CTA of the chest was negative for PE, no consolidation, no effusions study was unremarkable. Due to the CT findings will hold off on any additional antibiotics at this time. Patient has had a repeat dose of Ativan here and is resting comfortably at this time at bedside. Patient will be admitted for further management of his alcohol withdrawal case was discussed with hospitalist who accepted patient for admission.
[2017-11-14 11:47] LABS: Basophils % 0.5 %; Eosinophils # 0.1 K/mcL (0.0-0.6); Eosinophils % 1.6 %; Hematocrit 39.2 % (37.5-50.1); Hemoglobin 12.8 g/dL (12.9-16.9); Immature Granulocytes % 0.3 % (0-4); Immature Platelets 4.2 % (1.1-6.1); Lymphocytes % 25.5 %; Mean Corpuscular HGB Conc 32.7 g/dL (31.6-35.5); Mean Corpuscular Hemoglobin 27.5 pg (28.0-33.3); Mean Corpuscular Volume 84.1 fL (83.0-100.0); Monocytes # 0.3 K/mcL (0.0-1.3); Monocytes % 7.3 %; Neutrophils # 2.5 K/mcL (1.6-8.9); Platelet Count 138 K/mcL (140-400); Red Blood Count 4.66 M/mcL (4.19-5.50); Red Cell Distribution Width 15.2 % (11.5-14.5); Segmented Neutrophils % 64.8 %
[2017-11-14 11:53] LABS: INR 1.1; Prothrombin Time 11.4 Seconds (9.4-12.1)
[2017-11-14 11:57] LABS: Albumin 5.1 g/dL (3.5-5.7); Bilirubin,Total 1.2 mg/dL (0.3-1.0); Calcium 9.7 mg/dL (8.6-10.3); Carbon Dioxide 20 mEq/L (23-29); Chloride 99 mEq/L (98-107); Magnesium 1.6 mg/dL (1.6-2.6); Potassium 3.5 mEq/L (3.5-5.1); Sodium 138 mEq/L (136-145)
[2017-11-14 12:02] LABS: Ethanol 24 mg/dL (0-10)
[2017-11-14 12:03] LABS: Alanine Aminotransferase 114 Units/L (7-52); Albumin/Globulin Ratio 1.5 (1.1-2.2); Alkaline Phosphatase 111 Units/L (34-104); Aspartate Amino Transferase 139 Units/L (13-39); BUN/Creatinine Ratio 10 (6-26); Blood Urea Nitrogen 9 mg/dL (8-23); Globulin 3.5 g/dL (2.4-3.5); Glucose 133 mg/dL (70-105); Lipase 26 Units/L (11-82); Osmolality,Calculated 287 (280-300); Total Protein 8.6 g/dL (6.4-8.9); eGFR For African Americans > 60 (> 60); eGFR For Non-African Americans > 60 (> 60)
[2017-11-14] MEDS ORDERED: Thiamine (B-1) 100 MG in D5% in Water 50 ML IVPB ONE (12:40)
[2017-11-14] MEDS ORDERED: Folic Acid 1 MG TABLET PO ONE (12:41)
[2017-11-14 12:43] LABS: Bilirubin,Urine Negative (Negative); Blood,Urine Trace (Negative); Clarity,Urine Clear (Clear); Color,Urine Yellow (Yellow); Glucose,Urine (UA) Normal (Normal); Ketones,Urine 40 mg/dL (Negative); Leukocyte Esterase,Urine Negative (Negative); Nitrite,Urine Negative (Negative); Protein,Urine 100 mg/dL (Neg-Trace); Specific Gravity,Urine 1.015 (1.010-1.025); Urobilinogen,Urine Normal (Normal)
[2017-11-14 12:46] LABS: Bacteria,Urine None Seen per hpf (None-Few); Hyaline Casts,Urine None Seen per lpf (None-Few); Squamous Epithelial Cell,Urine Few per lpf (None-Few); WBC,Urine 0-3 per hpf (0-3)
[2017-11-14 12:49] LABS: Amphetamine Screen,Urine Negative ng/mL (Cutoff=1000); Barbiturate Screen,Urine Negative ng/mL (Cutoff=200); Benzodiazepines Screen,Urine Positive ng/mL (Cutoff=200); Cannabinoid Screen,Urine Negative ng/mL (Cutoff = 50); Cocaine Screen,Urine Negative ng/mL (Cutoff= 300); Opiate Screen,Urine Negative ng/mL (Cutoff=300); Phencyclidine Screen,Urine Negative ng/mL (Cutoff=25)
[2017-11-14] MEDS ORDERED: Thiamine (B-1) 100 MG in 0.9 % Sodium Chloride 50 ML IVPB ONE (13:45)
[2017-11-14] MEDS ORDERED: Acetaminophen 325 MG TABLET PO ONE (14:31)
[2017-11-14] MEDS ORDERED: Ondansetron 4 MG/2 ML VIAL IVP PRN (15:09)
[2017-11-14] MEDS ORDERED: Naloxone 0.4 MG/ML INJ IVP PRN (15:09)
[2017-11-14] MEDS ORDERED: *HR* LORazepam 2 MG/ML VIAL IVP PRN ×2 (15:09)
[2017-11-14] MEDS ORDERED: Ipratropium/Albuterol Neb 3 ML IH PRN (15:15)
--- NOTE | 2017-11-14 15:18 | Internal Med History&Physical ---
Date of Encounter: 11/14/17 Time of Encounter: 15:15 Assessment and Plan (1) Alcohol withdrawal Current visit: Yes Status: Acute Acute alcohol withdrawal Start Librium 4 times a day 50 mg oral, hold if sedated Order Ativan IV per CIWA scale Fall precautions Omeprazole for GI prophylaxis and subcutaneous heparin for DVT prophylaxis. The patient will be admitted for observation. Full code. Time spent on this admission 40 minutes Qualifiers: Complication of substance-induced condition: uncomplicated Qualified Code(s ): F10.230 - Alcohol dependence with withdrawal, uncomplicated (2) Chronic leukopenia Current visit: Yes Status: Acute Monitor (3) Transaminitis Current visit: Yes Status: Acute Likely related to alcohol (4) Essential hypertension Current visit: Yes Status: Chronic Hydralazine IV as needed (5) Tobacco abuse Current visit: Yes Status: Chronic (6) Atrial fibrillation Current visit: No Status: Acute Stable Qualifiers: Atrial fibrillation type: paroxysmal Qualified Code(s): I48.0 - Paroxysmal atrial fibrillation (7) COPD (chronic obstructive pulmonary disease) Current visit: No Status: Chronic No exacerbation Qualifiers: COPD type: unspecified COPD Qualified Code(s): J44.9 - Chronic obstructive pulmonary disease, unspecified (8) Pancreatic insufficiency Current visit: No Status: Chronic Internal Medicine - H&P: HPI Chief complaint: Tremors and alcohol withdrawal Admitted From: Emergency Dept History of present illness: Mr. Chen is a 62 year old male with a past medical history of alcohol abuse, recently discharged from the hospital on 2017. During last hospitalization the patient was admitted for the same reason which was alcohol withdrawal. He said that he ran out of money and could not get a drink since yesterday for which she started shaking, he came to the emergency room complaining of some right chest discomfort that is resoled but he is shaking constantly. His alcohol level was 24 white blood cell count is 3.9, CO2 20, glucose 133, AST [address] scan did not show any acute cardiac pulmonary disease. Patient was given doses of Ativan at the emergency room but he is a still withdrawing actively. Is not hallucinating, has some nausea and vomiting. Currently she is oriented Past Med Surg Social Fam HX - Past Medical History Medical history: COPD, GERD, hyperlipidemia, hypertension, migraine, myocardial infarction, other (Chronic leukopenia, hepatitis C, tobacco abuse, alcohol abuse , pancreatic insufficiency is/pancreatitis, bipolar disorder, migraines, schizophrenia, depression, paroxysmal atrial fibrillation not on anticoagulation , fatty liver disease, neuropathy, CVAs/TIAs, suicidal ideation in the past) Psychiatric history: anxiety, bipolar, depression, schizophrenia - Past Surgical History Surgical History: appendectomy, cholecystectomy, other (Partial pancreatectomy, bowel resection, PEG tube in the past, temporary ileostomy and reversal) - Social History Smoking Status: Current every day smoker Packs per day: One pack per day Smokeless Tobacco Status: No Alcohol use: heavy (1/5 of vodka daily) Drug use: none - Family History Mother Adopted: No Family Member Ethnicity: Non- Living Status: Still Living Hx Family Cardiac Disorders: Yes (HTN) Hx Family Respiratory Disorders: No Hx Family Cancer: No Hx Family GI Disorders: No Hx Family Endocrine Disorder: No Hx Family Neuromuscular Disorders: No Hx Family Neurologic Disorders: Yes (neuropathy) Hx Family HEENT Disorders: No Hx Family Autoimmune Disorders: No Father Living Status: - Additional Family History Additional family history: Mother with neuropathy, colon cancer and hypertension Internal Medicine - H&P: Meds Albuterol Sulfate [Proair Hfa] 2 puff IH Q4H PRN 12/21/16 [History] Lipase/Protease/Amylase [Creon Dr 12,000 Units Capsule] 3 cap PO TIDWM 03/15/17 [History] Omeprazole [PriLOSEC] 20 mg PO DAILY 03/15/17 [History] Amlodipine Besylate 10 mg PO DAILY 03/27/17 [History] Budesonide/Formoterol 160/4.5 [Symbicort 160/4.5] 1 puff IH BIDR 03/27/17 [ History] Cyanocobalamin (Vitamin B-12) [Vitamin B-12] 500 mcg PO DAILY 06/03/17 [History] Amitriptyline [Elavil] 25 mg PO HS #30 tablet 08/17/17 [Rx] Folic Acid 1 mg PO DAILY #30 tablet 10/18/17 [Rx] Thiamine (B-1) [Vitamin B-1] 100 mg PO DAILY #30 tablet 10/18/17 [Rx] Cholecalciferol (D-3) [Vitamin D] 1,000 unit PO DAILY 10/26/17 [History] Lactobacillus Acidophilus [Acidophilus] 1 each PO BID 10/26/17 [History] Magnesium Oxide [Mag-Ox] 400 mg PO DAILY 10/26/17 [History] Pregabalin [Lyrica] 150 mg PO BID 10/26/17 [History] SUMAtriptan succinate [Imitrex] 6 mg SQ AD PRN 10/26/17 [History] Aspirin Enteric Coated [Aspirin EC] 81 mg PO DAILY #30 tablet. 10/29/17 [Rx] Chlordiazepoxide [Librium] 25 mg PO TID #12 capsule 10/29/17 [Rx] Nicotine Patch [Nicoderm] 21 mg TD DAILY #30 patch.td24 10/29/17 [Rx] 3 Allergy/AdvReac Type Severity Reaction Status Date / Time Buspirone [From BuSpar] AdvReac See Verified 11/14/17 14:01 Comments tramadol AdvReac See Verified 11/14/17 14:01 Comments All Systems PM: A 10-system review of systems was performed and is negative for pertinent findings except as documented above in the HPI. Review of systems: No shortness of breath, no fevers, no dysuria. Other systems out of the 10 reviewed were negative - Constitutional Vitals: Temp Pulse Resp BP Pulse Ox 98.4 F 94 20 178/110 96 11/14/17 11:14 11/14/17 13:31 11/14/17 15:06 11/14/17 15:06 11/14/17 13:31 General appearance: Present: A&O X 3 Exam: Constant resting tremors - Head Head exam: Present: atraumatic, normocephalic - Eye Eye exam: Present: PERRL, conjuntiva pink, sclera anicteric Pupils: Present: PERRL - Neck Neck exam general surgery: Present: supple, trachea midline. Absent: lymphadenopathy - Respiratory Respiratory exam: Present: CTAB. Absent: accessory muscle use, rales, rhonchi, wheezes - Cardiovascular Cardiovascular exam: Present: RRR, +S1, +S2. Absent: diastolic murmur, gallop, rubs, systolic murmur - GI/Abdominal GI/Abdominal exam: Present: normal bowel sounds, soft, no peritoneal signs. Absent: distended, tenderness - Extremities Exam Extremities exam: Present: warm, radial pulses palpable and symmetrical. Absent : calf tenderness, cyanotic, pedal edema - Neurological Exam Neurological exam: Present: CN II-XII intact, oriented X3, no focal deficits. Absent: pronater drift, facial droop, speech deficit - Skin Skin exam: Present: dry, intact Internal Med - H&P Results - Labs CBC & Chem 7: 11/14/17 11:40 11/14/17 11:40
[2017-11-14] MEDS: *HR* LORazepam 2 MG/ML VIAL IVP PRN ×2 (16:01→19:48)
[2017-11-14] MEDS: 0.9 % Sodium Chloride 1,000 ML IVC SCH (16:01)
[2017-11-14] MEDS: *HR* Heparin 5,000 UNIT/ML VIAL SQ SCH ×2 (16:01→22:03)
[2017-11-14] MEDS: Nicotine 21 MG PATCH.TD24 TD SCH (16:02)
[2017-11-14] MEDS: amLODIPine 5 MG TABLET PO SCH (16:02)
[2017-11-14] MEDS: Aspirin Enteric Coated 81 MG Tablet PO SCH (16:03)
[2017-11-14] MEDS: *HR* OxyCODONE Immed Rel 5 MG TABLET PO PRN (17:09)
[2017-11-14] MEDS ORDERED: *HR* OxyCODONE Immed Rel 5 MG TABLET PO ONE (20:52)
[2017-11-14] MEDS: Pregabalin 75 MG CAPSULE PO SCH (22:03)
[2017-11-15] MEDS: *HR* OxyCODONE Immed Rel 5 MG TABLET PO PRN ×4 (00:19→18:22)
[2017-11-15] MEDS: *HR* LORazepam 2 MG/ML VIAL IVP PRN ×4 (00:41→20:07)
[2017-11-15] MEDS ORDERED: Ondansetron 4 MG/2 ML VIAL IVP ONE (01:46)
[2017-11-15] MEDS: Acetaminophen 325 MG TABLET PO PRN ×2 (02:06→20:06)
[2017-11-15] MEDS: 0.9 % Sodium Chloride 1,000 ML IVC SCH (04:32)
[2017-11-15 05:32] LABS: Alanine Aminotransferase 90 Units/L (7-52); Albumin 4.9 g/dL (3.5-5.7); Albumin/Globulin Ratio 1.5 (1.1-2.2); Alkaline Phosphatase 103 Units/L (34-104); Aspartate Amino Transferase 96 Units/L (13-39); BUN/Creatinine Ratio 13 (6-26); Bilirubin,Total 1.3 mg/dL (0.3-1.0); Blood Urea Nitrogen 11 mg/dL (8-23); Calcium 9.7 mg/dL (8.6-10.3); Carbon Dioxide 24 mEq/L (23-29); Chloride 98 mEq/L (98-107); Globulin 3.2 g/dL (2.4-3.5); Glucose 106 mg/dL (70-105); Magnesium 1.5 mg/dL (1.6-2.6); Osmolality,Calculated 278 (280-300); Phosphorous 2.9 mg/dL (2.7-4.5); Potassium 3.3 mEq/L (3.5-5.1); Sodium 134 mEq/L (136-145); Total Protein 8.1 g/dL (6.4-8.9); eGFR For African Americans > 60 (> 60); eGFR For Non-African Americans > 60 (> 60)
[2017-11-15] MEDS: *HR* Heparin 5,000 UNIT/ML VIAL SQ SCH ×3 (06:07→21:24)
[2017-11-15] MEDS: Magnesium Oxide 400 MG TABLET PO SCH (07:45)
[2017-11-15] MEDS: amLODIPine 5 MG TABLET PO SCH (07:45)
[2017-11-15] MEDS: Folic Acid 1 MG TABLET PO SCH (07:45)
[2017-11-15] MEDS: Pregabalin 75 MG CAPSULE PO SCH ×2 (07:46→20:02)
[2017-11-15] MEDS: Nicotine 21 MG PATCH.TD24 TD SCH (07:46)
[2017-11-15] MEDS: Thiamine (B-1) 100 MG TABLET PO SCH (07:46)
[2017-11-15] MEDS: Aspirin Enteric Coated 81 MG Tablet PO SCH (07:46)
--- NOTE | 2017-11-15 17:31 | Internal Med Progress Note ---
Date of Encounter: 11/15/17 Time of Encounter: 09:45 - Assessment and plan (1) Alcohol withdrawal Current Visit: Yes Status: Acute Assessment and plan: Known history of alcohol abuse. Has had multiple hospitalizations due to alcohol withdrawal. Patient states he has desire to quit drinking however unable to cope with home stressors. Appears to be a mild withdrawal on 11/15 exam. BAL 24. Cont to monitor with CIWA. Scheduled librium Qualifiers: Complication of substance-induced condition: uncomplicated Qualified Code(s ): F10.230 - Alcohol dependence with withdrawal, uncomplicated (2) Abdominal pain Current Visit: No Status: Chronic Qualifiers: Abdominal location: epigastric Qualified Code(s): R10.13 - Epigastric pain (3) Acute diastolic (congestive) heart failure Current Visit: Yes Status: Acute Assessment and plan: 04/2017 TTE with EF 60% and mild diastolic dysfunction. CXR with mild pleural effusion and concerning for pulmonary congestion. One-time dose IV Lasix, repeat echo (4) Atrial fibrillation Current Visit: No Status: Acute Assessment and plan: per hx. rate controlled. Not on anticoagulation presumably due to history of liver disease and coagulopathy. Monitor on telemetry. Qualifiers: Atrial fibrillation type: paroxysmal Qualified Code(s): I48.0 - Paroxysmal atrial fibrillation (5) Transaminitis Current Visit: Yes Status: Acute Assessment and plan: secondary to known liver disease. LFTs trending down. (6) DVT prophylaxis Current Visit: No Status: Acute Assessment and plan: heparin - Subjective Interval history: Seen and examined at bedside. Information obtained from chart review and patient report. Says he is in alcohol withdrawal, feels shaky and jittery. He also is complaining of right sided chest and abdominal pain which she said is been there for 3-4 weeks and is secondary to physical salt. Had a long discussion with patient regarding alcohol sensation and his desire to quit drinking. Patient says he wants to stop drinking however unable to cope with stressors at home. - Constitutional Vitals: Temp Pulse Resp BP Pulse Ox 98.4 F 102 18 121/85 95 11/15/17 15:03 11/15/17 15:03 11/15/17 15:03 11/15/17 15:03 11/15/17 15:03 General appearance: Present: disheveled, A&O X 3, morbidly obese - Head Head exam: Present: atraumatic, normocephalic - Eye Eye exam: Present: PERRL, conjuntiva pink, sclera anicteric Pupils: Present: PERRL - Neck Neck exam general surgery: Present: supple, trachea midline. Absent: lymphadenopathy - Respiratory Respiratory exam: Present: CTAB. Absent: accessory muscle use, rales, rhonchi, wheezes - Cardiovascular Cardiovascular exam: Present: RRR, +S1, +S2. Absent: diastolic murmur, gallop, rubs, systolic murmur - GI/Abdominal GI/Abdominal exam: Present: normal bowel sounds, soft, tenderness, no peritoneal signs. Absent: distended Additional comments: Irregular contour - Extremities Exam Extremities exam: Present: warm, radial pulses palpable and symmetrical. Absent : calf tenderness, cyanotic, pedal edema - Neurological Exam Neurological exam: Present: CN II-XII intact, oriented X3, no focal deficits. Absent: pronater drift, facial droop, speech deficit - Skin Skin exam: Present: dry, intact Internal Medicine: Result - Labs CBC & Chem 7: 11/14/17 11:40 11/15/17 03:49 Labs: BMP 11/15/17 03:49 Sodium 134 L Potassium 3.3 L Chloride 98 Carbon Dioxide 24 BUN 11 Creatinine 0.82 Glucose 106 H Calcium 9.7 Liver Function 11/15/17 Range/Units 03:49 Total Bilirubin 1.3 H (0.3-1.0) mg/dL AST 96 H (13-39) Units/L ALT 90 H (7-52) Units/L Alkaline Phosphatase 103 (34-104) Units/L Albumin 4.9 (3.5-5.7) g/dL - ABG Interpretation ABG results: PT/INR, D-dimer PT 11.4 Seconds (9.4-12.1) 11/14/17 11:40 Consult Discharge Plan - Plan Referrals: NONE,PCP [Primary Care Provider] -
[2017-11-15] MEDS ORDERED: Furosemide 40 MG/4 ML VIAL IVP ONE (17:38)
[2017-11-16] MEDS: *HR* OxyCODONE Immed Rel 5 MG TABLET PO PRN ×2 (02:08→08:46)
[2017-11-16] MEDS ORDERED: *HR* FentaNYL (PF) 100 MCG/2 ML VIAL IVP PRN (05:43)
[2017-11-16] MEDS ORDERED: 0.9 % Sodium Chloride w KCl 20 MEQ/1,000 ML MLS IVC SCH (05:45)
[2017-11-16] MEDS: *HR* Heparin 5,000 UNIT/ML VIAL SQ SCH ×2 (05:47→13:06)
[2017-11-16] MEDS: *HR* LORazepam 2 MG/ML VIAL IVP PRN ×3 (05:47→13:05)
[2017-11-16] MEDS: Nicotine 21 MG PATCH.TD24 TD SCH (08:30)
[2017-11-16] MEDS: MetroNIDAZOLE 500 MG/100 ML 500 MG/100 ML BAG IVPB SCH ×2 (08:31→16:36)
[2017-11-16] MEDS: Thiamine (B-1) 100 MG TABLET PO SCH (08:31)
[2017-11-16] MEDS: Folic Acid 1 MG TABLET PO SCH (08:32)
[2017-11-16] MEDS: amLODIPine 5 MG TABLET PO SCH (08:32)
[2017-11-16] MEDS: Magnesium Oxide 400 MG TABLET PO SCH (08:32)
[2017-11-16] MEDS: Aspirin Enteric Coated 81 MG Tablet PO SCH (08:32)
[2017-11-16] MEDS: Pregabalin 75 MG CAPSULE PO SCH (08:32)
[2017-11-16 09:30] LABS: Alanine Aminotransferase 105 Units/L (7-52); Albumin 4.4 g/dL (3.5-5.7); Albumin/Globulin Ratio 1.5 (1.1-2.2); Alkaline Phosphatase 91 Units/L (34-104); Aspartate Amino Transferase 143 Units/L (13-39); BUN/Creatinine Ratio 16 (6-26); Bilirubin,Total 0.7 mg/dL (0.3-1.0); Blood Urea Nitrogen 16 mg/dL (8-23); Calcium 9.3 mg/dL (8.6-10.3); Carbon Dioxide 18 mEq/L (23-29); Chloride 103 mEq/L (98-107); Globulin 2.9 g/dL (2.4-3.5); Glucose 96 mg/dL (70-105); Osmolality,Calculated 279 (280-300); Potassium 3.7 mEq/L (3.5-5.1); Sodium 134 mEq/L (136-145); Total Protein 7.3 g/dL (6.4-8.9); eGFR For African Americans > 60 (> 60); eGFR For Non-African Americans > 60 (> 60)
--- NOTE | 2017-11-16 09:39 | Internal Med Progress Note ---
Date of Encounter: 11/16/17 Time of Encounter: 09:38 - Assessment and plan (1) Diverticulitis Current Visit: Yes Status: Acute Assessment and plan: c/o [place] pain for the last 3-[address] with mild, acute diverticulitis. NPO. Continue IV Cipro, Flagyl. CBC, lactic acid pending (2) Alcohol withdrawal Current Visit: Yes Status: Acute Assessment and plan: Known history of alcohol abuse. Has had multiple hospitalizations due to alcohol withdrawal. Patient states he has desire to quit drinking however unable to cope with home stressors. Appears to be a mild withdrawal on 11/15 exam. BAL 24. Cont to monitor with CIWA. Scheduled librium Qualifiers: Complication of substance-induced condition: uncomplicated Qualified Code(s ): F10.230 - Alcohol dependence with withdrawal, uncomplicated (3) Acute diastolic (congestive) heart failure Current Visit: Yes Status: Acute Assessment and plan: 04/2017 TTE with EF 60% and mild diastolic dysfunction. CXR with mild pleural effusion and concerning for pulmonary congestion. One-time dose IV Lasix, repeat echo (4) Atrial fibrillation Current Visit: No Status: Acute Assessment and plan: per hx. rate controlled. Not on anticoagulation presumably due to history of liver disease and coagulopathy. Monitor on telemetry. Qualifiers: Atrial fibrillation type: paroxysmal Qualified Code(s): I48.0 - Paroxysmal atrial fibrillation (5) Transaminitis Current Visit: Yes Status: Acute Assessment and plan: secondary to known liver disease. LFTs trending down. (6) DVT prophylaxis Current Visit: No Status: Acute Assessment and plan: heparin - Subjective Interval history: Seen and examined at bedside; still with complaint of right-sided abdominal and chest pain. Nothing makes pain better or worse. He feels he is in mild alcohol withdrawal, feels shaky and jittery. - Constitutional Vitals: Temp Pulse Resp BP Pulse Ox 98.6 F 102 18 119/74 96 11/16/17 07:47 11/16/17 07:47 11/16/17 07:47 11/16/17 07:47 11/16/17 07:47 General appearance: Present: disheveled, A&O X 3, morbidly obese - Head Head exam: Present: atraumatic, normocephalic - Eye Eye exam: Present: PERRL, conjuntiva pink, sclera anicteric Pupils: Present: PERRL - Neck Neck exam general surgery: Present: supple, trachea midline. Absent: lymphadenopathy - Respiratory Respiratory exam: Present: CTAB. Absent: accessory muscle use, rales, rhonchi, wheezes - Cardiovascular Cardiovascular exam: Present: RRR, +S1, +S2. Absent: diastolic murmur, gallop, rubs, systolic murmur - GI/Abdominal GI/Abdominal exam: Present: normal bowel sounds, soft, no peritoneal signs. Absent: distended, tenderness - Extremities Exam Extremities exam: Present: warm, radial pulses palpable and symmetrical. Absent : calf tenderness, cyanotic, pedal edema - Neurological Exam Neurological exam: Present: CN II-XII intact, oriented X3, no focal deficits. Absent: pronater drift, facial droop, speech deficit Additional comments: Tremulous - Skin Skin exam: Present: dry, intact Internal Medicine: Result - Labs CBC & Chem 7: 11/14/17 11:40 11/16/17 04:47 Labs: BMP 11/16/17 04:47 Sodium 134 L Potassium 3.7 Chloride 103 Carbon Dioxide 18 L BUN 16 Creatinine 1.03 Glucose 96 Calcium 9.3 Liver Function 11/16/17 Range/Units 04:47 Total Bilirubin 0.7 (0.3-1.0) mg/dL AST 143 H (13-39) Units/L ALT 105 H (7-52) Units/L Alkaline Phosphatase 91 (34-104) Units/L Albumin 4.4 (3.5-5.7) g/dL - ABG Interpretation ABG results: PT/INR, D-dimer PT 11.4 Seconds (9.4-12.1) 11/14/17 11:40 - Impressions Impressions Abdomen/Pelvis CT 11/16/17 04:16 IMPRESSION: There is minimal focal wall thickening and adjacent inflammatory changes at the junction of the distal descending colon/ proximal sigmoid consistent with minimal acute uncomplicated diverticulitis. D/ / Leslie Larson MD / Leslie Larson MD Interpreting Provider: Leslie Larson MD Consult Discharge Plan - Plan Referrals: NONE,PCP [Primary Care Provider] -
[2017-11-16 10:24] LABS: Hematocrit 40.6 % (37.5-50.1); Hemoglobin 12.8 g/dL (12.9-16.9); Mean Corpuscular HGB Conc 31.5 g/dL (31.6-35.5); Mean Corpuscular Hemoglobin 27.6 pg (28.0-33.3); Mean Corpuscular Volume 87.7 fL (83.0-100.0); Platelet Count 104 K/mcL (140-400); Red Blood Count 4.63 M/mcL (4.19-5.50); Red Cell Distribution Width 15.4 % (11.5-14.5)
--- NOTE | 2017-11-16 15:02 | Internal Med Progress Note ---
Date of Encounter: 11/16/17 Time of Encounter: 08:30 - Assessment and plan (1) Diverticulitis Current Visit: Yes Status: Acute (2) Alcohol withdrawal Current Visit: Yes Status: Acute Qualifiers: Complication of substance-induced condition: uncomplicated Qualified Code(s ): F10.230 - Alcohol dependence with withdrawal, uncomplicated (3) Acute diastolic (congestive) heart failure Current Visit: Yes Status: Acute (4) Atrial fibrillation Current Visit: No Status: Acute Qualifiers: Atrial fibrillation type: paroxysmal Qualified Code(s): I48.0 - Paroxysmal atrial fibrillation (5) Transaminitis Current Visit: Yes Status: Acute (6) DVT prophylaxis Current Visit: No Status: Acute - Subjective Interval history: Seen and examined at bedside; says he had a rough night. Reports worsening abdominal pain. Still feels like he is in withdrawal shaky and tremulous. Able to eat and drink. He is requesting Ativan. No chest pain or shortness of breath. - Constitutional Vitals: Temp Pulse Resp BP Pulse Ox 97.9 F 103 16 126/77 94 11/16/17 11:56 11/16/17 11:56 11/16/17 11:56 11/16/17 11:56 11/16/17 11:56 General appearance: Present: disheveled, A&O X 3, morbidly obese - Head Head exam: Present: atraumatic, normocephalic - Eye Eye exam: Present: PERRL, conjuntiva pink, sclera anicteric Pupils: Present: PERRL - Neck Neck exam general surgery: Present: supple, trachea midline. Absent: lymphadenopathy - Respiratory Respiratory exam: Present: CTAB. Absent: accessory muscle use, rales, rhonchi, wheezes - Cardiovascular Cardiovascular exam: Present: RRR, +S1, +S2. Absent: diastolic murmur, gallop, rubs, systolic murmur - GI/Abdominal GI/Abdominal exam: Present: normal bowel sounds, soft, no peritoneal signs. Absent: distended, tenderness - Extremities Exam Extremities exam: Present: warm, radial pulses palpable and symmetrical. Absent : calf tenderness, cyanotic, pedal edema - Neurological Exam Neurological exam: Present: CN II-XII intact, oriented X3, no focal deficits. Absent: pronater drift, facial droop, speech deficit - Skin Skin exam: Present: dry, intact Internal Medicine: Result - Labs CBC & Chem 7: 11/16/17 10:11 11/16/17 04:47 Labs: Short CBC 11/16/17 Range/Units 10:11 WBC 4.9 (4.3-11.1) K/mcL Hgb 12.8 L (12.9-16.9) g/dL Hct 40.6 (37.5-50.1) % Plt Count 104 L (140-400) K/mcL BMP 11/16/17 04:47 Sodium 134 L Potassium 3.7 Chloride 103 Carbon Dioxide 18 L BUN 16 Creatinine 1.03 Glucose 96 Calcium 9.3 Liver Function 11/16/17 Range/Units 04:47 Total Bilirubin 0.7 (0.3-1.0) mg/dL AST 143 H (13-39) Units/L ALT 105 H (7-52) Units/L Alkaline Phosphatase 91 (34-104) Units/L Albumin 4.4 (3.5-5.7) g/dL - ABG Interpretation ABG results: PT/INR, D-dimer PT 11.4 Seconds (9.4-12.1) 11/14/17 11:40 - Impressions Impressions Abdomen/Pelvis CT 11/16/17 04:16 IMPRESSION: There is minimal focal wall thickening and adjacent inflammatory changes at the junction of the distal descending colon/ proximal sigmoid consistent with minimal acute uncomplicated diverticulitis. D/ / Leslie Larson MD / Leslie Larson MD Interpreting Provider: Leslie Larson MD Echocardiogram 11/16/17 17:38 Impressions: LVEF 60-65%. Mild left ventricular diastolic dysfunction. Normal right ventricular structure and function. No significant valvular dysfunction. No pulmonary hypertension. Left Ventricular Wall Motion: Rest Echo Findings The mid inferior lateral and basal inferior lateral macias were not visualized. All other wall segments showed normal motion. Findings: Study Quality * Technically adequate exam. ECG Findings * Sinus tachycardia. Left Ventricle * Normal LV chamber size. * Probably mild increased LV wall thickness. * LVEF 60-65%. * Mild left ventricular diastolic dysfunction. Right Ventricle * Normal right ventricular structure and function. Left Atrium * Normal left atrial size. Right Atrium * Normal right atrial size. Mitral Valve * Normal mitral valve structure. * Mild mitral annular calcification * No mitral regurgitation. * No mitral stenosis. Aortic Valve * Aortic valve not well visualized. * No aortic stenosis. * Trace aortic regurgitation. Tricuspid Valve * Tricuspid valve not well visualized. * No tricuspid regurgitation. Pulmonic Valve * Pulmonic valve is not well visualized. * No pulmonic stenosis. * No pulmonic regurgitation. Pulmonary Artery * Pulmonary artery not well visualized. Aorta * Normally sized aortic root. * Ascending aorta is not well visualized. Pericardium * There is no pericardial effusion present. Interatrial Septum * Interatrial septum not well evaluated. IVC * The IVC is not well evaluated. Consult Discharge Plan - Plan Referrals: NONE,PCP [Primary Care Provider] -
[2017-11-16 18:53] VITALS: BP 98/63
--- NOTE | 2017-11-17 17:04 | Electrocardiograph Report ---
[place] [id number] Test Date: 2017-11-14 Pat Name: Lauri Chen Department: 104 Room: 3B Gender: M Orthopedics Nurse: : 1955 Requested By: Kevin Leavitt Order Number: [id number] Reading MD: Kenyon Dinero Measurements Intervals [place] Rate: 89 P: 53 [place]: 136 QRS: 16 QRSD: 78 T: 66 QT: 382 QTc: 428 Interpretive Statements SINUS RHYTHM Electronically Signed On 11-17-2017 17:03:00 EST by Kenyon Dinero
--- NOTE | 2017-11-29 08:47 | Discharge Summary ---
Date of Encounter: 11/16/17 Time of Encounter: 18:00 - Discharge Diagnosis (1) Diverticulitis Priority: Primary Status: Chronic (2) Alcohol withdrawal Priority: Primary Status: Resolved Qualifiers: Complication of substance-induced condition: with unspecified complication Qualified Code(s): F10.239 - Alcohol dependence with withdrawal, unspecified (3) Acute diastolic (congestive) heart failure Priority: Secondary Status: Acute (4) Atrial fibrillation Priority: Secondary Status: Acute Qualifiers: Atrial fibrillation type: paroxysmal Qualified Code(s): I48.0 - Paroxysmal atrial fibrillation (5) Transaminitis Priority: Secondary Status: Acute - Discharge Medications Home Medications: Albuterol Sulfate [Proair Hfa] 2 puff IH Q4H PRN 12/21/16 [History] Lipase/Protease/Amylase [Creon Dr 12,000 Units Capsule] 3 cap PO TIDWM 03/15/17 [History] Omeprazole [PriLOSEC] 20 mg PO DAILY 03/15/17 [History] Amlodipine Besylate 10 mg PO DAILY 03/27/17 [History] Budesonide/Formoterol 160/4.5 [Symbicort 160/4.5] 1 puff IH BIDR 03/27/17 [ History] Cyanocobalamin (Vitamin B-12) [Vitamin B-12] 500 mcg PO DAILY 06/03/17 [History] Folic Acid 1 mg PO DAILY #30 tablet 10/18/17 [Rx] Thiamine (B-1) [Vitamin B-1] 100 mg PO DAILY #30 tablet 10/18/17 [Rx] Cholecalciferol (D-3) [Vitamin D] 1,000 unit PO DAILY 10/26/17 [History] Lactobacillus Acidophilus [Acidophilus] 1 each PO BID 10/26/17 [History] Magnesium Oxide [Mag-Ox] 400 mg PO DAILY 10/26/17 [History] Pregabalin [Lyrica] 150 mg PO BID 10/26/17 [History] SUMAtriptan succinate [Imitrex] 6 mg SQ AD PRN 10/26/17 [History] Amitriptyline HCl 75 mg PO HS 11/25/17 [History] Tamsulosin [Flomax] 0.4 mg PO DAILY #30 capsule 11/29/17 [Rx] Allergies/Adverse Reactions: 3 Allergy/AdvReac Type Severity Reaction Status Date / Time Buspirone [From BuSpar] AdvReac See Verified 11/25/17 11:16 Comments tramadol AdvReac See Verified 11/25/17 11:16 Comments Date of admission: 11/15/17 17:29 Primary care physician: PCP NONE Discharging clinician: Karyn Hansen Anticipated date of discharge: 11/16/17 - Patient Status Disposition: Left Against Medical Advice Condition: Fair - Discharge Instructions Follow Up With: NONE,PCP [Primary Care Provider] - Interval History: Please see 11/16/17 progress note for details. Hospital course: In summary Mr. Chen is a 62 year-old male with past medical history alcohol abuse is well known to [facility] with multiple admissions for alcohol withdrawal. He presented on 11/14/17 and alcohol withdrawal again and was admitted for further workup and treatment. He was found to have diverticulitis as well was started on IV antibiotics. He left AGAINST MEDICAL ADVICE on 11/16/17. - Time Spent with Patient Total time spent providing and/or coordinating discharge services: - Constitutional Vitals: Temp Pulse Resp BP Pulse Ox 98.1 F 99 16 98/63 93 11/16/17 18:47 11/16/17 18:47 11/16/17 18:47 11/16/17 18:47 11/16/17 18:47 General appearance: Present: disheveled, A&O X 3, morbidly obese - Head Head exam: Present: atraumatic, normocephalic - Eye Eye exam: Present: PERRL, conjuntiva pink, sclera anicteric Pupils: Present: PERRL - Neck Neck exam general surgery: Present: supple, trachea midline. Absent: lymphadenopathy - Respiratory Respiratory exam: Present: CTAB. Absent: accessory muscle use, rales, rhonchi, wheezes - Cardiovascular Cardiovascular exam: Present: RRR, +S1, +S2. Absent: diastolic murmur, gallop, rubs, systolic murmur - GI/Abdominal GI/Abdominal exam: Present: normal bowel sounds, soft, no peritoneal signs. Absent: distended, tenderness - Extremities Exam Extremities exam: Present: warm, radial pulses palpable and symmetrical. Absent : calf tenderness, cyanotic, pedal edema - Neurological Exam Neurological exam: Present: CN II-XII intact, oriented X3, no focal deficits. Absent: pronater drift, facial droop, speech deficit - Skin Skin exam: Present: dry, intact
== END 2017-11-16 19:40 | disposition left against medical advice (07) | DRG 894 ==
LOC: 3BNU 11:13 → EMEROO 11:13 → 3BNU 15:18
PROVIDERS: ADMIT Registered Nurse; ATTEND Registered Nurse

== ENCOUNTER 2017-11-25 10:56 | Inpatient (IN) ==
[2017-11-25] MEDS ORDERED: 0.9 % Sodium Chloride 500 ML IVC ONE (11:09)
[2017-11-25] MEDS ORDERED: *HR* LORazepam 2 MG/ML VIAL IVP ONE ×2 (11:09→13:18)
--- NOTE | 2017-11-25 11:22 | Emergency Department Note ---
Disposition Clinical Impression: Chest pain Qualifiers: Chest pain type: unspecified Qualified Code(s): R07.9 - Chest pain, unspecified Alcohol withdrawal Qualifiers: Complication of substance-induced condition: with unspecified complication Qualified Code(s): F10.239 - Alcohol dependence with withdrawal, unspecified Disposition: Admitted As Inpatient Condition: Fair Time of Disposition: 15:01 General Adult HPI - General Chief complaint: ED Chest Pain Stated complaint: cp into back/active DT's Time Seen by Provider: 11/25/17 10:59 Source: patient, EMS Mode of arrival: EMS Limitations: no limitations Nursing Notes Reviewed: Yes Vital Signs Reviewed: Yes - History of Present Illness HPI Narrative: 62-year-old male history of A. fib, chronic alcohol abuse, recent diverticulitis ekes ago, presents complaining of shaking and trembling, things that he is starting to go into withdrawal from alcohol. He states plastering was yesterday morning. He called EMS because he was shaking he is also feeling nauseated, and having 6 out of 10 cramping chest pain going into his back pain. Patient states that he was recently treated for diverticulitis and discharge from hospital records review shows that this was on 11/16 2017. He admits to drinking profusely since his discharge, but ran out of money yesterday morning, he summoned to the hospital multiple times for alcohol withdrawal. Patient has gone into withdrawal multiple times in previous admissions, was recently treated with CIWA protocol and records review during his last hospitalization last week. Location: chest, back Radiation: back Pain Severity: moderate Pain Scale: 4 Quality: aching Consistency: constant Improves with: nothing Worsens with: nothing Associated symptoms: Denies: confusion, chest pain, cough, diaphoresis, headaches - Related Data Home Medications Medication Instructions Recorded Confirmed Albuterol Sulfate [Proair Hfa] 2 puff IH Q4H PRN 12/21/16 11/14/17 Lipase/Protease/Amylase [Ananya Kern 3 cap PO TIDWM 03/15/17 11/14/17 12,000 Units Capsule] Omeprazole [PriLOSEC] 20 mg PO DAILY 03/15/17 11/14/17 Amlodipine Besylate 10 mg PO DAILY 03/27/17 11/14/17 Budesonide/Formoterol 160/4.5 1 puff IH BIDR 03/27/17 11/14/17 [Symbicort 160/4.5] Cyanocobalamin (Vitamin B-12) 500 mcg PO DAILY 06/03/17 11/14/17 [Vitamin B-12] Cholecalciferol (D-3) [Vitamin D] 1,000 unit PO DAILY 10/26/17 11/14/17 Lactobacillus Acidophilus 1 each PO BID 10/26/17 11/14/17 [Acidophilus] Magnesium Oxide [Mag-Ox] 400 mg PO DAILY 10/26/17 11/14/17 Pregabalin [Lyrica] 150 mg PO BID 10/26/17 11/14/17 SUMAtriptan succinate [Imitrex] 6 mg SQ AD PRN 10/26/17 11/14/17 Previous Rx's Medication Instructions Recorded Amitriptyline [Elavil] 25 mg PO HS #30 tablet 08/17/17 Folic Acid 1 mg PO DAILY #30 tablet 10/18/17 Thiamine (B-1) [Vitamin B-1] 100 mg PO DAILY #30 tablet 10/18/17 Allergies Allergy/AdvReac Type Severity Reaction Status Date / Time Buspirone [From BuSpar] AdvReac See Verified 11/25/17 11:16 Comments tramadol AdvReac See Verified 11/25/17 11:16 Comments All systems ED: reviewed and negative except as stated. Review of Systems: As Per HPI Constitutional: Denies: fever, chills Eyes: Denies: eye pain ENT ED: Denies: ear pain Cardiovascular: Reports: as per HPI, chest pain. Denies: palpitations Respiratory: Denies: cough, dyspnea Gastrointestinal: Denies: abdominal pain Genitourinary: Denies: urgency Musculoskeletal: Denies: back pain Integumentary: Denies: rash Neurological: Denies: headache Psychiatric: Reports: as per HPI, anxiety Endocrine: Denies: fatigue Past Medical History - Past Medical History Attestation: Yes The following information was validated with the patient. Source: patient Medical history: Reports: COPD, GERD, hyperlipidemia, hypertension, migraine, myocardial infarction, other Surgical history: Reports: appendectomy, cholecystectomy, other Psychiatric history: Reports: anxiety, bipolar, depression, schizophrenia - Social History Smoking Status: Current every day smoker Smokeless Tobacco Status: No Alcohol use: Reports: heavy Drug use: Reports: none Physical Exam - General General appearance: anxious - Head Head exam: atraumatic - Eye Eye exam: Present: normal appearance, PERRL - ENT ENT exam: normal exam - Neck Neck exam: Present: normal inspection, full ROM - Chest Chest inspection: Present: normal inspection, symmetric chest wall rise - Respiratory Respiratory exam: Present: normal lung sounds bilaterally - Cardiovascular Cardiovascular exam: Present: regular rate, normal rhythm - Abdominal Exam Abdominal exam: Present: soft, Non-Tender - Extremities Exam Extremities exam: Present: normal inspection, full ROM - Neurological Exam Neurological exam: Present: alert, oriented X3, CN II-XII intact - Psychiatric Psychiatric exam: Present: normal affect - Skin Skin exam: Present: warm Course Course Narrative: 62-year-old male with history of delirium tremens complaint of chest pain and back pain, plan is for chest x-ray EKG basic lab work, Ativan IV fluids, normal discussed patient with meets criteria for admission versus discharge disease with had multiple hospitalizations for the same, is unclear. Plans to stop drinking. - Reevaluation(s) Reevaluation #1: After review of CTA of the chest, there is evidence for possible ascending Igo A aortic dissection, patient's blood pressures in the 150 systolic, ordering a small push and drip, additional large-bore IV access, as well as type and screen the patient, plan for CT surgery consult, but are heard formal report from radiology to plan to discuss Time: 14:22 - Consultations Consultation #1: Consultation with Dr Melton Radiologist to discuss concerning thoracic aorta, radiologist reviewed the imaging again, and states that likely the procedure regularities in the ascending aorta are due to motion artifact. Initially a small was ordered, however after review with radiologist, this was discontinued , the patient was treated with fentanyl for pain, Ativan for withdrawal symptoms , admitted to the hospital service Dr De Los Santos accepting. Vital Signs Temperature 98 F 11/25/17 11:04 Pulse Rate 86 11/25/17 11:04 Respiratory Rate 20 11/25/17 11:04 Blood Pressure 157/85 11/25/17 11:04 O2 Sat by Pulse Oximetry 94 11/25/17 11:04 Temperature 98 F 11/25/17 11:04 Pulse Rate 91 11/25/17 14:48 Respiratory Rate 20 11/25/17 14:48 Blood Pressure 168/110 11/25/17 14:48 O2 Sat by Pulse Oximetry 92 11/25/17 14:48 Oxygen Delivery Oxygen Delivery Room Air Medical Decision Making - MDM Narrative Medical decision making narrative: 62-year-old male with chest pain, CTA and chest x-ray negative, troponin negative acute ischemic changes, given aspirin admitted to the hospitalist service, for concern for alcohol withdrawal chest pain. - Medical Records Medical records reviewed: Yes I reviewed the patient's medical records. - Lab Data Lab results reviewed: Yes I reviewed the patient's lab results. Result diagrams: 11/25/17 11:45 11/25/17 11:45 Lab Results 11/25/17 11/25/17 11/25/17 Range/Units 11:45 11:45 11:45 WBC 3.7 L (4.3-11.1) K/mcL RBC 4.74 (4.19-5.50) M/mcL Hgb 12.7 L (12.9-16.9) g/dL Hct 40.4 (37.5-50.1) % MCV 85.2 (83.0-100.0) fL MCH 26.8 L (28.0-33.3) pg MCHC 31.4 L (31.6-35.5) g/dL RDW 15.8 H (11.5-14.5) % Plt Count 158 (140-400) K/mcL MPV 9.5 (9.4-12.4) fL Immature Gran % 0.3 (0-4) % Seg Neutrophils % 36.8 % Lymphocytes % 50.5 % Monocytes % 10.0 % Eosinophils % 1.6 % Basophils % 0.8 % Neutrophils # 1.4 L (1.6-8.9) K/mcL Lymphocytes # 1.9 (0.6-4.6) K/mcL Monocytes # 0.4 (0.0-1.3) K/mcL Eosinophils # 0.1 (0.0-0.6) K/mcL Basophils # 0.0 (0.0-0.2) K/mcL Sodium 139 (136-145) mEq/L Potassium 3.5 (3.5-5.1) mEq/L Chloride 104 (98-107) mEq/L Carbon Dioxide 24 (23-29) mEq/L BUN 8 (8-23) mg/dL Creatinine 0.84 (0.70-1.30) mg/dL Est GFR ( Amer) > 60 (> 60) Est GFR (Non-Af Amer) > 60 (> 60) BUN/Creatinine Ratio 10 (6-26) Glucose 102 (70-105) mg/dL Calculated Osmolality 287 (280-300) Calcium 9.3 (8.6-10.3) mg/dL Troponin I < 0.03 (< 0.04) ng/mL - Radiology Data Radiology results reviewed: Yes I reviewed the patient's radiology results. Chest X-Ray 11/25/17 11:04 IMPRESSION: Pulmonary vascular congestion with prominent vascular markings in the mid and lower lung krishna bilaterally which may represent mild dependent edema. There is also a questionable trace right pleural effusion at the costophrenic angle. D/ / Luke Krause MD / Luke Krause MD Interpreting Provider: Luke Krause MD Chest CTA 11/25/17 11:37 IMPRESSION: 1. No evidence of pulmonary embolism or acute infiltrate 2. Pulmonary emphysema with right lower lobe scarring 3. Calcific Coronary atherosclerosis D/ / Shawn Melton MD / Shawn Melton MD Interpreting Provider: Shawn Melton MD - EKG Data EKG #1 EKG attestation: Yes I reviewed and interpreted this EKG. EKG shows normal: sinus rhythm Rate: normal (91 bpm ME 164 QRS 80 QTc 412 no acute ischemic changes.) Rhythm: NSR Leander/QRS: normal Attestation Statement - Attestation Attestation: I, Mannie Perdomo DO, examined this patient [id number] and my medical decision-making was reviewed with Dr. Jeancarlos Zavaleta, Resident Physician. I agree with the documented findings, disposition and treatment plan as described except to the extent set forth below. Please see my progress notes for details. 62-year-old male well known to this facility presents to emergency room for evaluation of shaking and tremors. Patient also has significant midsternal chest pain that radiates to his back. Patient has a history of significant alcohol abuse was concerning E go into withdrawals. Also concerned about chest pain. Patient has no specific cardiac history. Denies any history of dissection or aneurysm. Patient is currently intermittently tearful. His lungs are clear is regularly has no reproducible symptoms or palpable masses in the abdominal wall this time. Cardiac evaluation will be completed with EKG chest x-ray. Chest x-ray was reviewed and is not show any widening of the mediastinum. Patient still complaining of persistent midsternal chest pain that radiates into his back. Patient with CT angiography the chest and abdomen. Pain medication be provided. Aspirin murmurs are to given by EMS. Patient does not clinically look like he is having a myocardial infarction because of the withdrawals of the subjective whether or not he is having other symptoms including retching syndrome perforation of esophagus or possible aortic dissection or aneurysm. These issues will be addressed at this time. Patient's blood pressure and vital signs will be monitored closely at this point. Patient is otherwise hemodynamically stable. Routine monitoring as a treatment course is completed. See detailed documentation of the physical exam , medical intervention, medical decision-making and disposition in the resident physician's note. Patient's physical exam otherwise are unremarkable on my evaluation. Currently no critical care provider this patient's treatment course 1425 CT scan reviewed by myself and there is concern for possible ascending dissection. Official read has not been called back to the emergency room yet at this time. Patient will be started on esmolol and a second IV will be established. Bedside monitor ultrasound to be utilized. Critical care plan to the patient at this time. 1500 CT imaging as well as negative for dissection. Patient will be treated ACS at this time. Initial EKG and troponin were both negative. Patient does have some aspect of alcohol withdrawal this point it could be exacerbating his symptoms. Otherwise patient will be evaluated in the inpatient setting for cardiac related disease and illness. See detailed documentation of the physical exam. No critical care applied
[2017-11-25 11:56] LABS: Basophils % 0.8 %; Eosinophils # 0.1 K/mcL (0.0-0.6); Eosinophils % 1.6 %; Hematocrit 40.4 % (37.5-50.1); Hemoglobin 12.7 g/dL (12.9-16.9); Immature Granulocytes % 0.3 % (0-4); Lymphocytes # 1.9 K/mcL (0.6-4.6); Lymphocytes % 50.5 %; Mean Corpuscular HGB Conc 31.4 g/dL (31.6-35.5); Mean Corpuscular Hemoglobin 26.8 pg (28.0-33.3); Mean Corpuscular Volume 85.2 fL (83.0-100.0); Mean Platelet Volume 9.5 fL (9.4-12.4); Monocytes # 0.4 K/mcL (0.0-1.3); Neutrophils # 1.4 K/mcL (1.6-8.9); Platelet Count 158 K/mcL (140-400); Red Blood Count 4.74 M/mcL (4.19-5.50); Red Cell Distribution Width 15.8 % (11.5-14.5); Segmented Neutrophils % 36.8 %
[2017-11-25 12:08] LABS: Calcium 9.3 mg/dL (8.6-10.3); Carbon Dioxide 24 mEq/L (23-29); Chloride 104 mEq/L (98-107); Potassium 3.5 mEq/L (3.5-5.1); Sodium 139 mEq/L (136-145)
[2017-11-25 12:14] LABS: BUN/Creatinine Ratio 10 (6-26); Blood Urea Nitrogen 8 mg/dL (8-23); Glucose 102 mg/dL (70-105); Osmolality,Calculated 287 (280-300); eGFR For African Americans > 60 (> 60); eGFR For Non-African Americans > 60 (> 60)
[2017-11-25] MEDS ORDERED: Ondansetron 4 MG/2 ML VIAL IVP ONE (13:04)
[2017-11-25] MEDS ORDERED: Esmolol 2.5 GM/250 ML MLS IVC SCH (14:30)
[2017-11-25] MEDS ORDERED: *HR* FentaNYL (PF) 100 MCG/2 ML VIAL IVP ONE (14:31)
[2017-11-25] MEDS ORDERED: Aspirin 81 MG TAB.CHEW PO ONE (14:59)
--- NOTE | 2017-11-25 15:25 | Internal Med History&Physical ---
Date of Encounter: 11/25/17 Time of Encounter: 15:14 Assessment and Plan (1) Alcohol withdrawal Current visit: Yes Status: Acute Alcohol withdrawal this has been recurrent metastatic this time patient states he would like to get some help we will place him C-wire protocol and consult social work instructor Qualifiers: Complication of substance-induced condition: with unspecified complication Qualified Code(s): F10.239 - Alcohol dependence with withdrawal, unspecified (2) Chest pain Current visit: Yes Status: Acute Chest pain constant for 3 days most likely noncardiac with troponin CT of the chest negative for PE or dissection Qualifiers: Chest pain type: unspecified Qualified Code(s): R07.9 - Chest pain, unspecified (3) Anemia Current visit: No Status: Chronic Chronic hemoglobin is stable Qualifiers: Anemia type: unspecified type Qualified Code(s): D64.9 - Anemia, unspecified (4) Mood disorder Current visit: No Status: Chronic Chronic resume home medication (5) COPD (chronic obstructive pulmonary disease) Current visit: No Status: Chronic Chronic no active wheezing Qualifiers: COPD type: emphysema Emphysema type: unspecified Qualified Code(s): J43.9 - Emphysema, unspecified Internal Medicine - H&P: HPI Chief complaint: alcohol withdrawal Admitted From: Emergency Dept Plans for Post Hospital Care: Home History of present illness: Mr. Chen is a 62 year old male Patient with history of alcoholism with several admission for withdrawal syndrome, atrial flutter in the past, hypertension, drug abuse, COPD, history of lung abscess with decortication, depression and schizophrenia, smoking history, pancreatic insufficiency. Patient been drinking heavily then ran out of money and having shaking and trembling so he knows that he is having withdrawal syndrome and came into the emergency room also has localized chest pain going to his back constant for about 3 days. No relationship to activity in the ER had a CT of the chest which was negative, no PE , no dissection patient will be admitted and placed on withdrawal protocol I will add lipase and amylase to his labs Exam is unremarkable except for obvious withdrawal shaking and trembling . Past Med Surg Social Fam HX - Past Medical History Medical history: COPD, GERD, hyperlipidemia, hypertension, migraine, myocardial infarction, other Psychiatric history: anxiety, bipolar, depression, schizophrenia - Past Surgical History Surgical History: appendectomy, cholecystectomy, other - Social History Smoking Status: Current every day smoker Smokeless Tobacco Status: No Alcohol use: heavy Drug use: none - Family History Mother Adopted: No Family Member Ethnicity: Non- Living Status: Still Living Hx Family Cardiac Disorders: Yes (HTN) Hx Family Respiratory Disorders: No Hx Family Cancer: No Hx Family GI Disorders: No Hx Family Endocrine Disorder: No Hx Family Neuromuscular Disorders: No Hx Family Neurologic Disorders: Yes (neuropathy) Hx Family HEENT Disorders: No Hx Family Autoimmune Disorders: No Father Living Status: Internal Medicine - H&P: Meds Albuterol Sulfate [Proair Hfa] 2 puff IH Q4H PRN 12/21/16 [History] Lipase/Protease/Amylase [Creon Dr 12,000 Units Capsule] 3 cap PO TIDWM 03/15/17 [History] Omeprazole [PriLOSEC] 20 mg PO DAILY 03/15/17 [History] Amlodipine Besylate 10 mg PO DAILY 03/27/17 [History] Budesonide/Formoterol 160/4.5 [Symbicort 160/4.5] 1 puff IH BIDR 03/27/17 [ History] Cyanocobalamin (Vitamin B-12) [Vitamin B-12] 500 mcg PO DAILY 06/03/17 [History] Amitriptyline [Elavil] 25 mg PO HS #30 tablet 08/17/17 [Rx] Folic Acid 1 mg PO DAILY #30 tablet 10/18/17 [Rx] Thiamine (B-1) [Vitamin B-1] 100 mg PO DAILY #30 tablet 10/18/17 [Rx] Cholecalciferol (D-3) [Vitamin D] 1,000 unit PO DAILY 10/26/17 [History] Lactobacillus Acidophilus [Acidophilus] 1 each PO BID 10/26/17 [History] Magnesium Oxide [Mag-Ox] 400 mg PO DAILY 10/26/17 [History] Pregabalin [Lyrica] 150 mg PO BID 10/26/17 [History] SUMAtriptan succinate [Imitrex] 6 mg SQ AD PRN 10/26/17 [History] 3 Allergy/AdvReac Type Severity Reaction Status Date / Time Buspirone [From BuSpar] AdvReac See Verified 11/25/17 11:16 Comments tramadol AdvReac See Verified 11/25/17 11:16 Comments All Systems PM: A 10-system review of systems was performed and is negative for pertinent findings except as documented above in the HPI. - Constitutional Constitutional: lethargy - EENT Eyes: no change in vision, no discharge, no pain, no photophobia Ears: no ear discharge, no ear pain, no tinnitus Nose, mouth and throat: no dysphagia, no nasal discharge, no neck pain, no sore throat - Cardiovascular Cardiovascular ROS IM: no chest pain, no diaphoresis, no dyspnea, no lightheadedness, no palpitations, no syncope - Respiratory Respiratory: no cough, no dyspnea, no wheezing, no excessive phlegm production - Gastrointestinal Gastrointestinal: nausea - Musculoskeletal Musculoskeletal ROS IM: no numbness, no tingling - Constitutional Vitals: Temp Pulse Resp BP Pulse Ox 98 F 91 20 168/110 92 11/25/17 11:04 11/25/17 14:48 11/25/17 14:48 11/25/17 14:48 11/25/17 14:48 General appearance: Present: disheveled, A&O X 3 - Eye Eye exam: Present: PERRL, conjuntiva pink, sclera anicteric Pupils: Present: PERRL - Neck Neck exam general surgery: Present: supple, trachea midline. Absent: lymphadenopathy - Respiratory Respiratory exam: Present: rhonchi - Cardiovascular Cardiovascular exam: Present: RRR, +S1, +S2. Absent: diastolic murmur, gallop, rubs, systolic murmur - GI/Abdominal GI/Abdominal exam: Present: normal bowel sounds, soft, no peritoneal signs. Absent: distended, tenderness Internal Med - H&P Results - Labs CBC & Chem 7: 11/25/17 11:45 11/25/17 11:45 Labs: Short CBC 11/25/17 Range/Units 11:45 WBC 3.7 L (4.3-11.1) K/mcL Hgb 12.7 L (12.9-16.9) g/dL Hct 40.4 (37.5-50.1) % Plt Count 158 (140-400) K/mcL Neutrophils # 1.4 L (1.6-8.9) K/mcL BMP 11/25/17 11:45 Sodium 139 Potassium 3.5 Chloride 104 Carbon Dioxide 24 BUN 8 Creatinine 0.84 Glucose 102 Calcium 9.3 Cardiac Enzymes 11/25/17 Range/Units 11:45 Troponin I < 0.03 (< 0.04) ng/mL - Impressions ITS Impressions Chest X-Ray 11/25/17 11:04 IMPRESSION: Pulmonary vascular congestion with prominent vascular markings in the mid and lower lung krishna bilaterally which may represent mild dependent edema. There is also a questionable trace right pleural effusion at the costophrenic angle. D/ / Luke Krause MD / Luke Krause MD Interpreting Provider: Luke Krause MD Chest CTA 11/25/17 11:37 IMPRESSION: 1. No evidence of pulmonary embolism or acute infiltrate 2. Pulmonary emphysema with right lower lobe scarring 3. Calcific Coronary atherosclerosis D/ / Shawn Melton MD / Shawn Melton MD Interpreting Provider: Shawn Melton MD
[2017-11-25] MEDS ORDERED: Naloxone 0.4 MG/ML INJ IVP PRN (15:29)
[2017-11-25] MEDS ORDERED: *HR* Promethazine 25 MG/ML VIAL IVP PRN (15:37)
[2017-11-25] MEDS ORDERED: diazePAM 10 MG/2 ML SYRINGE IVP PRN (15:37)
[2017-11-25 16:17] LABS: Lipase 31 Units/L (11-82)
--- NOTE | 2017-11-25 16:48 | Electrocardiograph Report ---
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
[2017-11-25] MEDS: traMADol 50 MG TABLET PO PRN (18:25)
[2017-11-25] MEDS: 0.9 % Sodium Chloride 1,000 ML IVC SCH (18:25)
[2017-11-25] MEDS: Budesonide/Formoterol 160/4.5 MDI IH SCH (19:40)
[2017-11-25] MEDS ORDERED: *HR* LORazepam 2 MG/ML VIAL IVP PRN ×2 (20:27)
[2017-11-25] MEDS: Pregabalin 75 MG CAPSULE PO SCH (21:22)
[2017-11-25] MEDS: Lactobacillus 1 EACH CAP.SPRINK PO SCH (21:22)
[2017-11-25] MEDS: Nicotine 21 MG PATCH.TD24 TD SCH (21:22)
[2017-11-25] MEDS: Acetaminophen 325 MG TABLET PO PRN (21:24)
[2017-11-26 00:50] LABS: Eosinophils # 0.1 K/mcL (0.0-0.6); Hemoglobin 12.4 g/dL (12.9-16.9); Immature Granulocytes % 0.3 % (0-4); Lymphocytes # 0.9 K/mcL (0.6-4.6); Lymphocytes % 30.2 %; Mean Corpuscular HGB Conc 32.6 g/dL (31.6-35.5); Mean Corpuscular Hemoglobin 27.6 pg (28.0-33.3); Mean Corpuscular Volume 84.6 fL (83.0-100.0); Mean Platelet Volume 9.7 fL (9.4-12.4); Monocytes # 0.3 K/mcL (0.0-1.3); Monocytes % 10.6 %; Neutrophils # 1.7 K/mcL (1.6-8.9); Platelet Count 124 K/mcL (140-400); Red Blood Count 4.49 M/mcL (4.19-5.50); Red Cell Distribution Width 15.7 % (11.5-14.5); Segmented Neutrophils % 55.9 %
[2017-11-26 01:15] LABS: Alanine Aminotransferase 96 Units/L (7-52); Albumin 4.4 g/dL (3.5-5.7); Albumin/Globulin Ratio 1.3 (1.1-2.2); Alkaline Phosphatase 94 Units/L (34-104); Aspartate Amino Transferase 131 Units/L (13-39); BUN/Creatinine Ratio 10 (6-26); Blood Urea Nitrogen 9 mg/dL (8-23); Calcium 8.8 mg/dL (8.6-10.3); Carbon Dioxide 23 mEq/L (23-29); Chloride 102 mEq/L (98-107); Chol/HDL Ratio 2.8 (0-4.9); Cholesterol 215 mg/dL (< 200); Globulin 3.3 g/dL (2.4-3.5); Glucose 95 mg/dL (70-105); HDL Cholesterol 77 mg/dL (40-59); LDL Cholesterol,Calculated 118 mg/dL (0-99); Magnesium 1.7 mg/dL (1.6-2.6); Osmolality,Calculated 280 (280-300); Potassium 3.4 mEq/L (3.5-5.1); Sodium 136 mEq/L (136-145); Total Protein 7.7 g/dL (6.4-8.9); Triglycerides 99 mg/dL (< 150); eGFR For African Americans > 60 (> 60); eGFR For Non-African Americans > 60 (> 60)
[2017-11-26 01:44] LABS: Ethanol < 10 mg/dL (0-10)
[2017-11-26] MEDS: *HR* Enoxaparin 40 MG/0.4 ML SYRINGE SQ SCH (05:16)
[2017-11-26] MEDS: *HR* LORazepam 2 MG/ML VIAL IVP PRN ×4 (05:23→20:17)
[2017-11-26] MEDS: Budesonide/Formoterol 160/4.5 MDI IH SCH ×2 (07:59→23:04)
[2017-11-26] MEDS: Pregabalin 75 MG CAPSULE PO SCH ×2 (08:06→20:16)
[2017-11-26] MEDS: Cholecalciferol (D-3) 1,000 UNIT TABLET PO SCH (08:07)
[2017-11-26] MEDS: amLODIPine 5 MG TABLET PO SCH (08:07)
[2017-11-26] MEDS: Magnesium Oxide 400 MG TABLET PO SCH (08:07)
[2017-11-26] MEDS: Thiamine (B-1) 100 MG TABLET PO SCH (08:07)
[2017-11-26] MEDS: Folic Acid 1 MG TABLET PO SCH (08:07)
[2017-11-26] MEDS: Cyanocobalamin (B-12) 1,000 MCG TABLET PO SCH (08:08)
[2017-11-26] MEDS: Nicotine 21 MG PATCH.TD24 TD SCH (08:08)
[2017-11-26] MEDS: Lactobacillus 1 EACH CAP.SPRINK PO SCH ×2 (08:08→20:16)
[2017-11-26] MEDS: 0.9 % Sodium Chloride 1,000 ML IVC SCH (08:08)
[2017-11-26] MEDS: Acetaminophen 325 MG TABLET PO PRN (12:18)
[2017-11-26] MEDS: traMADol 50 MG TABLET PO PRN (15:05)
--- NOTE | 2017-11-26 15:35 | Internal Med Progress Note ---
Date of Encounter: 11/26/17 Time of Encounter: 10:30 - Assessment and plan (1) Alcohol withdrawal Current Visit: Yes Status: Acute Assessment and plan: Patient is well-known to hospital service. History of alcoholism and frequent admissions for alcohol withdrawal. Cont to monitor with CIWA, librium, thiamine. Qualifiers: Complication of substance-induced condition: with unspecified complication Qualified Code(s): F10.239 - Alcohol dependence with withdrawal, unspecified (2) Anemia Current Visit: No Status: Chronic Assessment and plan: per hx. Hgb stable, no active bleeding. Cont to monitor Qualifiers: Anemia type: other cause Other causes of anemia: chronic disease, other Qualified Code(s): D63.8 - Anemia in other chronic diseases classified elsewhere (3) Chest pain Current Visit: Yes Status: Acute Assessment and plan: Suspect musculoskeletal. CXR negative, serial troponins negative EKG without acute ST changes. Chest CTA negative for pulmonary embolism. Patient reports repetitive activity with recently painting apartment. Supportive care. Qualifiers: Chest pain type: unspecified Qualified Code(s): R07.9 - Chest pain, unspecified (4) COPD (chronic obstructive pulmonary disease) Current Visit: No Status: Chronic Assessment and plan: per hx. No evidence of exacerbation. Cont home inhalers Qualifiers: COPD type: emphysema Emphysema type: unspecified Qualified Code(s): J43.9 - Emphysema, unspecified (5) DVT prophylaxis Current Visit: No Status: Acute Assessment and plan: Lovenox - Subjective Interval history: Seen and examined at bedside; patient is known to me from previous admission. Says he is uncomfortable and currently in withdrawal. Feels shaky and jittery. Has some mild right abdominal pain. Some nausea, no vomiting. - Constitutional Vitals: Temp Pulse Resp BP Pulse Ox 101.0 F H 104 16 153/105 95 11/26/17 12:08 11/26/17 12:08 11/26/17 12:08 11/26/17 12:08 11/26/17 12:08 General appearance: Present: disheveled, mild distress, A&O X 3 - Head Head exam: Present: atraumatic, normocephalic - Eye Eye exam: Present: PERRL, conjuntiva pink, sclera anicteric Pupils: Present: PERRL - Neck Neck exam general surgery: Present: supple, trachea midline. Absent: lymphadenopathy - Respiratory Respiratory exam: Present: CTAB. Absent: accessory muscle use, rales, rhonchi, wheezes - Cardiovascular Cardiovascular exam: Present: RRR, +S1, +S2. Absent: diastolic murmur, gallop, rubs, systolic murmur - GI/Abdominal GI/Abdominal exam: Present: normal bowel sounds, soft, no peritoneal signs. Absent: distended, tenderness - Extremities Exam Extremities exam: Present: warm, radial pulses palpable and symmetrical. Absent : calf tenderness, cyanotic, pedal edema - Neurological Exam Neurological exam: Present: CN II-XII intact, oriented X3, no focal deficits. Absent: pronater drift, facial droop, speech deficit - Psychiatric Psychiatric exam: Present: anxious - Skin Skin exam: Present: dry, intact Internal Medicine: Result - Labs CBC & Chem 7: 11/26/17 00:28 11/26/17 00:28 Labs: Short CBC 11/26/17 Range/Units 00:28 WBC 3.0 L (4.3-11.1) K/mcL Hgb 12.4 L (12.9-16.9) g/dL Hct 38.0 (37.5-50.1) % Plt Count 124 L (140-400) K/mcL Neutrophils # 1.7 (1.6-8.9) K/mcL BMP 11/26/17 00:28 Sodium 136 Potassium 3.4 L Chloride 102 Carbon Dioxide 23 BUN 9 Creatinine 0.88 Glucose 95 Calcium 8.8 Cardiac Enzymes 11/25/17 11/26/17 11/26/17 Range/Units 17:48 00:28 06:26 Troponin I < 0.03 < 0.03 < 0.03 (< 0.04) ng/mL Liver Function 11/26/17 Range/Units 00:28 Total Bilirubin 1.0 (0.3-1.0) mg/dL AST 131 H (13-39) Units/L ALT 96 H (7-52) Units/L Alkaline Phosphatase 94 (34-104) Units/L Albumin 4.4 (3.5-5.7) g/dL Consult Discharge Plan - Plan Referrals: NONE,PCP [Primary Care Provider] -
[2017-11-26] MEDS ORDERED: Water for inj. (sterile) 10 ML IV ONE (20:09)
[2017-11-27] MEDS: *HR* LORazepam 2 MG/ML VIAL IVP PRN ×6 (02:20→23:42)
[2017-11-27] MEDS: *HR* Enoxaparin 40 MG/0.4 ML SYRINGE SQ SCH (05:25)
[2017-11-27] MEDS: Budesonide/Formoterol 160/4.5 MDI IH SCH ×2 (08:04→19:54)
[2017-11-27] MEDS: Lactobacillus 1 EACH CAP.SPRINK PO SCH ×2 (08:41→19:50)
[2017-11-27] MEDS: Nicotine 21 MG PATCH.TD24 TD SCH (08:41)
[2017-11-27] MEDS: Cholecalciferol (D-3) 1,000 UNIT TABLET PO SCH (08:41)
[2017-11-27] MEDS: Thiamine (B-1) 100 MG TABLET PO SCH (08:41)
[2017-11-27] MEDS: amLODIPine 5 MG TABLET PO SCH (08:42)
[2017-11-27] MEDS: Magnesium Oxide 400 MG TABLET PO SCH (08:42)
[2017-11-27] MEDS: Pregabalin 75 MG CAPSULE PO SCH ×2 (08:42→19:53)
[2017-11-27] MEDS: Folic Acid 1 MG TABLET PO SCH (08:42)
[2017-11-27] MEDS: Cyanocobalamin (B-12) 1,000 MCG TABLET PO SCH (08:42)
--- NOTE | 2017-11-27 13:43 | Internal Med Progress Note ---
Date of Encounter: 11/27/17 Time of Encounter: 10:30 - Assessment and plan (1) Alcohol withdrawal Current Visit: Yes Status: Acute Assessment and plan: Patient is well-known to hospital service. History of alcoholism and frequent admissions for alcohol withdrawal. Cont to monitor with CIWA, librium, thiamine. Qualifiers: Complication of substance-induced condition: with unspecified complication Qualified Code(s): F10.239 - Alcohol dependence with withdrawal, unspecified (2) Anemia Current Visit: No Status: Chronic Assessment and plan: per hx. Hgb stable, no active bleeding. Cont to monitor Qualifiers: Anemia type: other cause Other causes of anemia: chronic disease, other Qualified Code(s): D63.8 - Anemia in other chronic diseases classified elsewhere (3) Chest pain Current Visit: Yes Status: Acute Assessment and plan: Suspect musculoskeletal. CXR negative, serial troponins negative EKG without acute ST changes. Chest CTA negative for pulmonary embolism. Patient reports repetitive activity with recently painting apartment. Supportive care. Qualifiers: Chest pain type: unspecified Qualified Code(s): R07.9 - Chest pain, unspecified (4) COPD (chronic obstructive pulmonary disease) Current Visit: No Status: Chronic Assessment and plan: per hx. No evidence of exacerbation. Cont home inhalers Qualifiers: COPD type: emphysema Emphysema type: unspecified Qualified Code(s): J43.9 - Emphysema, unspecified (5) Diverticulitis Current Visit: No Status: Acute Assessment and plan: History recent diverticulitis last hospitalization; treated with Cipro and Flagyl at that time. Of note patient left AMA and did not complete treatment. Now with right-sided abdominal pain. ABD CT pending. (6) DVT prophylaxis Current Visit: No Status: Acute Assessment and plan: Lovenox - Subjective Interval history: Seen and examined at bedside; says he feels a little better from yesterday. Still with some mild withdrawal symptoms. He also reports right-sided abdominal pain. Some nausea, no vomiting. No loose stools. Says he feels like he needs 1 more day in the hospital. No chest pain or shortness of breath. - Constitutional Vitals: Temp Pulse Resp BP Pulse Ox 97.9 F 90 16 143/83 98 11/27/17 10:50 11/27/17 10:50 11/27/17 10:50 11/27/17 10:50 11/27/17 10:50 General appearance: Present: disheveled, mild distress, A&O X 3 - Head Head exam: Present: atraumatic, normocephalic - Eye Eye exam: Present: PERRL, conjuntiva pink, sclera anicteric Pupils: Present: PERRL - Neck Neck exam general surgery: Present: supple, trachea midline. Absent: lymphadenopathy - Respiratory Respiratory exam: Present: CTAB. Absent: accessory muscle use, rales, rhonchi, wheezes - Cardiovascular Cardiovascular exam: Present: RRR, +S1, +S2. Absent: diastolic murmur, gallop, rubs, systolic murmur - GI/Abdominal GI/Abdominal exam: Present: normal bowel sounds, soft, no peritoneal signs. Absent: distended, tenderness - Extremities Exam Extremities exam: Present: warm, radial pulses palpable and symmetrical. Absent : calf tenderness, cyanotic, pedal edema - Neurological Exam Neurological exam: Present: CN II-XII intact, oriented X3, no focal deficits. Absent: pronater drift, facial droop, speech deficit - Skin Skin exam: Present: dry, intact Internal Medicine: Result - Labs CBC & Chem 7: 11/26/17 00:28 11/26/17 00:28 Consult Discharge Plan - Plan Referrals: NONE,PCP [Primary Care Provider] -
[2017-11-27] MEDS ORDERED: *HR* OxyCODONE Immed Rel 5 MG TABLET PO ONE (16:21)
--- NOTE | 2017-11-27 17:24 | Urology - Consult Note ---
Date of Encounter: 11/27/17 Time of Encounter: 17:22 - Assessment and Plan (1) Urinary retention Current Visit: Yes Status: Acute Assessment and plan: Patient was prepped and draped in normal sterile fashion. I then placed an 18- Cypriot coude catheter with some moderate resistance around the patient's prostate. 1 L of urine was returned from the patient's bladder. The urine was clear. Plan to keep the catheter in place for 1 week. We will start the patient on Flomax. This will need to be continued upon discharge. Patient will follow up with my partner Dr. Porter next for voiding trial. 12/03/17 at 1pm. Urology CN:HPI Consult date: 11/27/17 Reason for consult Urology: Other (urinary retention) Requesting physician: Karyn Hansen History of present illness: Lauri is a 62-year-old male with a history of admission secondary to chest pain. Patient states he was unable to void today since 6 AM. He states this happened one time before approximately 8 years ago. He was seen by a urologist at that time and the patient states that no cause was found. Patient has never taken Flomax for his prostate. Multiple attempts of catheter placement which were unsuccessful were attempted earlier today. He did have a bladder scan which showed a significantly distended bladder. Patient does admit to severe lower abdominal pain 10 out of 10 in nature with some radiation down his penis. No nausea or vomiting. No fevers. Past Med Surg Social Fam HX - Past Medical History Medical history: COPD, GERD, hyperlipidemia, hypertension, migraine, myocardial infarction, other Psychiatric history: anxiety, bipolar, depression, schizophrenia - Past Surgical History Surgical History: appendectomy, cholecystectomy, other - Social History Smoking Status: Current every day smoker Packs per day: 1 Smokeless Tobacco Status: No Alcohol use: heavy Drug use: none - Family History Mother Adopted: No Family Member Ethnicity: Non- Living Status: Still Living Hx Family Cardiac Disorders: Yes (HTN) Hx Family Respiratory Disorders: No Hx Family Cancer: No Hx Family GI Disorders: No Hx Family Endocrine Disorder: No Hx Family Neuromuscular Disorders: No Hx Family Neurologic Disorders: Yes (neuropathy) Hx Family HEENT Disorders: No Hx Family Autoimmune Disorders: No Father Living Status: Medications and Allergies Albuterol Sulfate [Proair Hfa] 2 puff IH Q4H PRN 12/21/16 [History] Lipase/Protease/Amylase [Creon Dr 12,000 Units Capsule] 3 cap PO TIDWM 03/15/17 [History] Omeprazole [PriLOSEC] 20 mg PO DAILY 03/15/17 [History] Amlodipine Besylate 10 mg PO DAILY 03/27/17 [History] Budesonide/Formoterol 160/4.5 [Symbicort 160/4.5] 1 puff IH BIDR 03/27/17 [ History] Cyanocobalamin (Vitamin B-12) [Vitamin B-12] 500 mcg PO DAILY 06/03/17 [History] Folic Acid 1 mg PO DAILY #30 tablet 10/18/17 [Rx] Thiamine (B-1) [Vitamin B-1] 100 mg PO DAILY #30 tablet 10/18/17 [Rx] Cholecalciferol (D-3) [Vitamin D] 1,000 unit PO DAILY 10/26/17 [History] Lactobacillus Acidophilus [Acidophilus] 1 each PO BID 10/26/17 [History] Magnesium Oxide [Mag-Ox] 400 mg PO DAILY 10/26/17 [History] Pregabalin [Lyrica] 150 mg PO BID 10/26/17 [History] SUMAtriptan succinate [Imitrex] 6 mg SQ AD PRN 10/26/17 [History] Amitriptyline HCl 75 mg PO HS 11/25/17 [History] 3 Allergy/AdvReac Type Severity Reaction Status Date / Time Buspirone [From BuSpar] AdvReac See Verified 11/25/17 11:16 Comments tramadol AdvReac See Verified 11/25/17 11:16 Comments Review of Systems - Constitutional no fever(s) - EENT Nose, mouth and throat: no dizziness - Cardiovascular chest pain - Respiratory no cough - Gastrointestinal abdominal pain - Genitourinary as per HPI - Integumentary no erythema - Neurological no confusion - Psychiatric no confusion Exam Initial Vital Signs Temp Pulse Resp BP Pulse Ox 98 F 86 20 157/85 94 11/25/17 11:04 11/25/17 11:04 11/25/17 11:04 11/25/17 11:04 11/25/17 11:04 - General physical appearance Present: well developed, well nourished - Eyes Absent: icteric - Neck Present: no lymphadenopathy - Respiratory Present: normal respiratory effort - Cardiovascular Cardiovascular exam IM: RRR - Abdomen Abdomen: Present: soft, suprapubic tenderness - Genitourinary normal penis with no external lesions Urology Results - Labs 11/26/17 00:28 11/26/17 00:28 Abnormal lab results WBC 3.0 K/mcL (4.3-11.1) L 11/26/17 00:28 Hgb 12.4 g/dL (12.9-16.9) L 11/26/17 00:28 MCH 27.6 pg (28.0-33.3) L 11/26/17 00:28 RDW 15.7 % (11.5-14.5) H 11/26/17 00:28 Plt Count 124 K/mcL (140-400) L 11/26/17 00:28 Potassium 3.4 mEq/L (3.5-5.1) L 11/26/17 00:28 AST 131 Units/L (13-39) H 11/26/17 00:28 ALT 96 Units/L (7-52) H 11/26/17 00:28 Cholesterol 215 mg/dL (< 200) H 11/26/17 00:28 LDL Cholesterol, Calc 118 mg/dL (0-99) H 11/26/17 00:28 HDL Cholesterol 77 mg/dL (40-59) H 11/26/17 00:28 All other labs normal. Consult Discharge Plan - Plan Referrals: NONE,PCP [Primary Care Provider] -
[2017-11-27] MEDS: traMADol 50 MG TABLET PO PRN (19:52)
[2017-11-27] MEDS ORDERED: Ketorolac 30 MG/ML VIAL IVP ONE (23:33)
[2017-11-28] MEDS: *HR* LORazepam 2 MG/ML VIAL IVP PRN ×5 (03:56→23:22)
[2017-11-28 04:51] LABS: BUN/Creatinine Ratio 11 (6-26); Blood Urea Nitrogen 15 mg/dL (8-23); Calcium 9.7 mg/dL (8.6-10.3); Carbon Dioxide 19 mEq/L (23-29); Chloride 105 mEq/L (98-107); Glucose 115 mg/dL (70-105); Osmolality,Calculated 280 (280-300); Potassium 4.2 mEq/L (3.5-5.1); Sodium 134 mEq/L (136-145); eGFR For African Americans > 60 (> 60); eGFR For Non-African Americans 56 (> 60)
[2017-11-28] MEDS: traMADol 50 MG TABLET PO PRN (06:25)
[2017-11-28] MEDS: *HR* Enoxaparin 40 MG/0.4 ML SYRINGE SQ SCH (06:25)
[2017-11-28] MEDS ORDERED: 0.9 % Sodium Chloride 500 ML IVC ONE (08:11)
[2017-11-28] MEDS: Cyanocobalamin (B-12) 1,000 MCG TABLET PO SCH (08:13)
[2017-11-28] MEDS: Magnesium Oxide 400 MG TABLET PO SCH (08:14)
[2017-11-28] MEDS: Thiamine (B-1) 100 MG TABLET PO SCH (08:14)
[2017-11-28] MEDS: Nicotine 21 MG PATCH.TD24 TD SCH (08:15)
[2017-11-28] MEDS: Lactobacillus 1 EACH CAP.SPRINK PO SCH ×2 (08:15→20:47)
[2017-11-28] MEDS: amLODIPine 5 MG TABLET PO SCH (08:15)
[2017-11-28] MEDS: Cholecalciferol (D-3) 1,000 UNIT TABLET PO SCH (08:15)
[2017-11-28] MEDS: Pregabalin 75 MG CAPSULE PO SCH ×2 (08:15→20:47)
[2017-11-28] MEDS: Folic Acid 1 MG TABLET PO SCH (08:15)
--- NOTE | 2017-11-28 08:17 | Urology Progress Note ---
Date of Encounter: 11/28/17 Time of Encounter: 08:16 - Assessment and Plan (1) Urinary retention Current Visit: Yes Status: Acute Assessment and plan: Continue with Flomax and catheter at this time. Call with any questions. Patient has appointment next for voiding trial. Progress Note Narrative: Patient seen this a.m. Patient states that the catheter is bothering him. It is draining clear urine. Objective Initial Vital Signs Temp Pulse Resp BP Pulse Ox 98 F 86 20 157/85 94 11/25/17 11:04 11/25/17 11:04 11/25/17 11:04 11/25/17 11:04 11/25/17 11:04 - General physical appearance Present: well developed - Abdomen Present: soft - Genitourinary Present: other (Clear urine in tubing) - Labs 11/26/17 00:28 11/28/17 04:12 Diabetes panel 11/28/17 Range/Units 04:12 Sodium 134 L (136-145) mEq/L Potassium 4.2 (3.5-5.1) mEq/L Chloride 105 (98-107) mEq/L Carbon Dioxide 19 L (23-29) mEq/L BUN 15 (8-23) mg/dL Creatinine 1.31 H (0.70-1.30) mg/dL Glucose 115 H (70-105) mg/dL Calcium 9.7 (8.6-10.3) mg/dL Calcium panel 11/28/17 Range/Units 04:12 Calcium 9.7 (8.6-10.3) mg/dL Pituitary panel 11/28/17 Range/Units 04:12 Sodium 134 L (136-145) mEq/L Potassium 4.2 (3.5-5.1) mEq/L Chloride 105 (98-107) mEq/L Carbon Dioxide 19 L (23-29) mEq/L BUN 15 (8-23) mg/dL Creatinine 1.31 H (0.70-1.30) mg/dL Glucose 115 H (70-105) mg/dL Calcium 9.7 (8.6-10.3) mg/dL Adrenal panel 11/28/17 Range/Units 04:12 Sodium 134 L (136-145) mEq/L Potassium 4.2 (3.5-5.1) mEq/L Chloride 105 (98-107) mEq/L Carbon Dioxide 19 L (23-29) mEq/L BUN 15 (8-23) mg/dL Creatinine 1.31 H (0.70-1.30) mg/dL Glucose 115 H (70-105) mg/dL Calcium 9.7 (8.6-10.3) mg/dL Consult Discharge Plan - Plan Referrals: NONE,PCP [Primary Care Provider] -
[2017-11-28] MEDS: Acetaminophen 325 MG TABLET PO PRN ×3 (08:27→20:53)
[2017-11-28] MEDS: Budesonide/Formoterol 160/4.5 MDI IH SCH ×2 (10:54→22:10)
[2017-11-28] MEDS: *HR* OxyCODONE Immed Rel 5 MG TABLET PO PRN ×2 (12:29→23:29)
--- NOTE | 2017-11-28 16:45 | Internal Med Progress Note ---
Date of Encounter: 11/28/17 Time of Encounter: 16:43 - Assessment and plan (1) Urinary retention Current Visit: Yes Status: Acute Assessment and plan: Unable to void on 11/27/17. Bladder scan showed greater than 500 mL. Nursing staff unsuccessful at placing Boggs catheter. Boggs catheter placed by urology. Will need to leave in for 1 week with outpatient urology follow-up/ voiding trial. Continue Flomax. (2) SHELLEY (acute kidney injury) Current Visit: No Status: Acute Assessment and plan: Cr 1.3; baseline normal. Suspect secondary to urinary retention. Provide gentle bolus, avoid nephrotoxic agents as possible. Monitor repeat renal function. (3) Alcohol withdrawal Current Visit: Yes Status: Acute Assessment and plan: Patient is well-known to hospital service. History of alcoholism and frequent admissions for alcohol withdrawal. Cont to monitor with CIWA, librium, thiamine. Qualifiers: Complication of substance-induced condition: with unspecified complication Qualified Code(s): F10.239 - Alcohol dependence with withdrawal, unspecified (4) Anemia Current Visit: No Status: Chronic Assessment and plan: per hx. Hgb stable, no active bleeding. Cont to monitor Qualifiers: Anemia type: other cause Other causes of anemia: chronic disease, other Qualified Code(s): D63.8 - Anemia in other chronic diseases classified elsewhere (5) Chest pain Current Visit: Yes Status: Acute Assessment and plan: Suspect musculoskeletal. CXR negative, serial troponins negative EKG without acute ST changes. Chest CTA negative for pulmonary embolism. Patient reports repetitive activity with recently painting apartment. Supportive care. Qualifiers: Chest pain type: unspecified Qualified Code(s): R07.9 - Chest pain, unspecified (6) COPD (chronic obstructive pulmonary disease) Current Visit: No Status: Chronic Assessment and plan: per hx. No evidence of exacerbation. Cont home inhalers Qualifiers: COPD type: emphysema Emphysema type: unspecified Qualified Code(s): J43.9 - Emphysema, unspecified (7) Diverticulitis Current Visit: No Status: Acute Assessment and plan: History recent diverticulitis last hospitalization; treated with Cipro and Flagyl at that time. Of note patient left AMA and did not complete treatment. Now with right-sided abdominal pain. ABD CT pending. (8) DVT prophylaxis Current Visit: No Status: Acute Assessment and plan: Lovenox - Subjective Interval history: Seen and examined at bedside; says he feels back to same. Feels like he is still in withdrawal but improved from yesterday. He thinks he needs 1 more night in the hospital. He complains of discomfort catheter insertion site. - Constitutional Vitals: Temp Pulse Resp BP Pulse Ox 98.9 F 103 18 141/95 95 11/28/17 15:29 11/28/17 15:29 11/28/17 15:29 11/28/17 15:29 11/28/17 15:29 General appearance: Present: disheveled, mild distress, A&O X 3 - Head Head exam: Present: atraumatic, normocephalic - Eye Eye exam: Present: PERRL, conjuntiva pink, sclera anicteric Pupils: Present: PERRL - Neck Neck exam general surgery: Present: supple, trachea midline. Absent: lymphadenopathy - Respiratory Respiratory exam: Present: CTAB. Absent: accessory muscle use, rales, rhonchi, wheezes - Cardiovascular Cardiovascular exam: Present: RRR, +S1, +S2. Absent: diastolic murmur, gallop, rubs, systolic murmur - GI/Abdominal GI/Abdominal exam: Present: normal bowel sounds, soft, no peritoneal signs. Absent: distended, tenderness - Extremities Exam Extremities exam: Present: warm, radial pulses palpable and symmetrical. Absent : calf tenderness, cyanotic, pedal edema - Neurological Exam Neurological exam: Present: CN II-XII intact, oriented X3, no focal deficits. Absent: pronater drift, facial droop, speech deficit - Psychiatric Psychiatric exam: Present: anxious - Skin Skin exam: Present: dry, intact Internal Medicine: Result - Labs CBC & Chem 7: 11/26/17 00:28 11/28/17 04:12 Labs: BMP 11/28/17 04:12 Sodium 134 L Potassium 4.2 Chloride 105 Carbon Dioxide 19 L BUN 15 Creatinine 1.31 H Glucose 115 H Calcium 9.7 Consult Discharge Plan - Plan Referrals: NONE,PCP [Primary Care Provider] -
[2017-11-29] MEDS: *HR* Enoxaparin 40 MG/0.4 ML SYRINGE SQ SCH (05:10)
[2017-11-29 05:19] LABS: BUN/Creatinine Ratio 13 (6-26); Blood Urea Nitrogen 16 mg/dL (8-23); Calcium 9.6 mg/dL (8.6-10.3); Carbon Dioxide 19 mEq/L (23-29); Chloride 106 mEq/L (98-107); Glucose 97 mg/dL (70-105); Osmolality,Calculated 281 (280-300); Potassium 3.9 mEq/L (3.5-5.1); Sodium 135 mEq/L (136-145); eGFR For African Americans > 60 (> 60); eGFR For Non-African Americans > 60 (> 60)
[2017-11-29 07:22] VITALS: BP 142/96
[2017-11-29] MEDS: Budesonide/Formoterol 160/4.5 MDI IH SCH (07:43)
[2017-11-29] MEDS: Nicotine 21 MG PATCH.TD24 TD SCH (08:07)
[2017-11-29] MEDS: Thiamine (B-1) 100 MG TABLET PO SCH (08:07)
[2017-11-29] MEDS: Cyanocobalamin (B-12) 1,000 MCG TABLET PO SCH (08:07)
[2017-11-29] MEDS: amLODIPine 5 MG TABLET PO SCH (08:08)
[2017-11-29] MEDS: Pregabalin 75 MG CAPSULE PO SCH (08:08)
[2017-11-29] MEDS: Magnesium Oxide 400 MG TABLET PO SCH (08:08)
[2017-11-29] MEDS: Cholecalciferol (D-3) 1,000 UNIT TABLET PO SCH (08:08)
[2017-11-29] MEDS: Folic Acid 1 MG TABLET PO SCH (08:08)
[2017-11-29] MEDS: Lactobacillus 1 EACH CAP.SPRINK PO SCH (08:09)
[2017-11-29] MEDS: *HR* LORazepam 2 MG/ML VIAL IVP PRN (08:16)
--- NOTE | 2017-11-29 08:26 | Discharge Summary ---
Date of Encounter: 11/29/17 Time of Encounter: 08:24 - Discharge Diagnosis (1) Urinary retention Priority: Primary Status: Acute Comments: Unable to void on 11/27/17. Bladder scan showed greater than 500 mL. Nursing staff unsuccessful at placing Terrell catheter. Terrell catheter placed by urology. Discharge home with Terrell catheter; follow-up with urology 12/03/17 for voiding trial. Continue Flomax. (2) SHELLEY (acute kidney injury) Priority: Primary Status: Resolved Comments: Cr 1.3; baseline normal. Suspect secondary to urinary retention. Cr normalized with IV fluids and terrell catheter placement. Recommend repeat CMP within 1-2 weeks with PCP. (3) Alcohol withdrawal Priority: Primary Status: Resolved Comments: Patient is well-known to hospital service. History of alcoholism and frequent admissions for alcohol withdrawal. He was monitored with CIWA and treated with Librium/thymine. No evidence of withdrawal at time of discharge. Alcohol cessation strongly encouraged unlikely. Qualifiers: Complication of substance-induced condition: with unspecified complication Qualified Code(s): F10.239 - Alcohol dependence with withdrawal, unspecified (4) Anemia Priority: Secondary Status: Chronic Comments: per hx. Hgb stable, no active bleeding. Recommend repeat CBC within 1 week with PCP Qualifiers: Anemia type: other cause Other causes of anemia: chronic disease, other Qualified Code(s): D63.8 - Anemia in other chronic diseases classified elsewhere (5) Chest pain Priority: Secondary Status: Acute Comments: Suspect musculoskeletal. CXR negative, serial troponins negative EKG without acute ST changes. Chest CTA negative for pulmonary embolism. Patient reports repetitive activity with recently painting apartment. No chest pain recurrence while inpatient. Qualifiers: Chest pain type: unspecified Qualified Code(s): R07.9 - Chest pain, unspecified (6) COPD (chronic obstructive pulmonary disease) Priority: Secondary Status: Chronic Comments: per hx. No evidence of exacerbation. Cont home inhalers Qualifiers: COPD type: emphysema Emphysema type: unspecified Qualified Code(s): J43.9 - Emphysema, unspecified (7) Diverticulitis Priority: Secondary Status: Chronic Comments: History recent diverticulitis last hospitalization; treated with Cipro and Flagyl at that time. Of note patient left AMA and did not complete treatment. Repeat ABD CT non-acute. Further workup indicated. - Discharge Medications Prescriptions: Tamsulosin [Flomax] 0.4 mg PO DAILY #30 capsule Home Medications: Albuterol Sulfate [Proair Hfa] 2 puff IH Q4H PRN 12/21/16 [History] Lipase/Protease/Amylase [Ananya Kern 12,000 Units Capsule] 3 cap PO TIDWM 03/15/17 [History] Omeprazole [PriLOSEC] 20 mg PO DAILY 03/15/17 [History] Amlodipine Besylate 10 mg PO DAILY 03/27/17 [History] Budesonide/Formoterol 160/4.5 [Symbicort 160/4.5] 1 puff IH BIDR 03/27/17 [ History] Cyanocobalamin (Vitamin B-12) [Vitamin B-12] 500 mcg PO DAILY 06/03/17 [History] Folic Acid 1 mg PO DAILY #30 tablet 10/18/17 [Rx] Thiamine (B-1) [Vitamin B-1] 100 mg PO DAILY #30 tablet 10/18/17 [Rx] Cholecalciferol (D-3) [Vitamin D] 1,000 unit PO DAILY 10/26/17 [History] Lactobacillus Acidophilus [Acidophilus] 1 each PO BID 10/26/17 [History] Magnesium Oxide [Mag-Ox] 400 mg PO DAILY 10/26/17 [History] Pregabalin [Lyrica] 150 mg PO BID 10/26/17 [History] SUMAtriptan succinate [Imitrex] 6 mg SQ AD PRN 10/26/17 [History] Amitriptyline HCl 75 mg PO HS 11/25/17 [History] Tamsulosin [Flomax] 0.4 mg PO DAILY #30 capsule 11/29/17 [Rx] Allergies/Adverse Reactions: 3 Allergy/AdvReac Type Severity Reaction Status Date / Time Buspirone [From BuSpar] AdvReac See Verified 11/25/17 11:16 Comments tramadol AdvReac See Verified 11/25/17 11:16 Comments Procedures/tests Complete & Pending: Procedures Performed prior 72 hours Category Date Time Status CT abd pelvis w iv no oral [CT] Routine Cat Scan 11/27/17 13:50 Completed Date of admission: 11/25/17 15:29 Primary care physician: PCP NONE Consults: 11/27/17 16:08 Consult to Urology [CONS] Routine Consulting Provider: Urology Jane Reason for Consult: urine retention monse called Call Completed: Yes Discharging clinician: Karyn Hansen Anticipated date of discharge: 11/29/17 - Patient Status Disposition: Home, Self-Care Condition: Good Functional capacity at discharge: independent ambulation Overall status at discharge: patient is back to baseline - Discharge Instructions Instructions: Terrell Catheter Placement and Care (DC), Tamsulosin (By mouth), Alcohol Withdrawal (DC), Alcohol Use Disorder (DC), Alcohol Dependence (GEN) Follow Up With: Bro Porter MD [Partnered Physician] - 12/03/17 1:00 pm NONE,PCP [Primary Care Provider] - (Please follow-up with your PCP within 1-2 weeks.) - Diet and Activity Activity: increase activity as tolerated Diet: advance to your usual diet Interval History: Seen and examined at bedside. Patient says he feels better today will like to go home. Does not feel that he is in withdrawal anymore. Educated on catheter care and need to follow-up with urology on 12/03/17. Patient will be sent home with urinary catheter supplies. Verbalizes understanding and need to follow-up with urology as scheduled. Besides wanting to leave he has no complaints at this time. No chest pain, no shortness of breath no abdominal pain. Hospital course: See assessment and plan for hospital course. - Time Spent with Patient Total time spent providing and/or coordinating discharge services: - Constitutional Vitals: Temp Pulse Resp BP Pulse Ox 98.1 F 119 17 142/96 95 11/29/17 07:21 11/29/17 07:21 11/29/17 07:45 11/29/17 07:21 11/29/17 07:45 General appearance: Present: disheveled, A&O X 3 - Head Head exam: Present: atraumatic, normocephalic - Eye Eye exam: Present: PERRL, conjuntiva pink, sclera anicteric Pupils: Present: PERRL - Neck Neck exam general surgery: Present: supple, trachea midline. Absent: lymphadenopathy - Respiratory Respiratory exam: Present: CTAB. Absent: accessory muscle use, rales, rhonchi, wheezes - Cardiovascular Cardiovascular exam: Present: RRR, +S1, +S2. Absent: diastolic murmur, gallop, rubs, systolic murmur - GI/Abdominal GI/Abdominal exam: Present: normal bowel sounds, soft, no peritoneal signs. Absent: distended, tenderness Additional comments: Abnormal contour - Additional comments: terrell catheter - Extremities Exam Extremities exam: Present: warm, radial pulses palpable and symmetrical. Absent : calf tenderness, cyanotic, pedal edema - Neurological Exam Neurological exam: Present: CN II-XII intact, oriented X3, no focal deficits. Absent: pronater drift, facial droop, speech deficit - Skin Skin exam: Present: dry, intact
== END 2017-11-29 10:02 | disposition home or self-care (01) | DRG 897 ==
LOC: 3BNU 10:56 → EMEROO 10:56 → 3BNU 16:20
PROVIDERS: ADMIT Internal Medicine Cardiovascular Disease; ATTEND Registered Nurse

== ENCOUNTER 2017-12-05 16:08 | Observation (INO) ==
[2017-12-05] MEDS ORDERED: MVI, adult with vitamin K 10 ML in 0.9 % Sodium Chloride 1,000 ML IVC ONE (16:27)
--- NOTE | 2017-12-05 16:32 | Emergency Department Note ---
Disposition Clinical Impression: Suicidal ideation, Alcohol intoxication Disposition: Admitted As Inpatient Condition: Good Referrals: NONE,PCP [Primary Care Provider] - Forms: ED Satisfaction Letter Time of Disposition: 17:44 General Adult HPI - General Chief complaint: ED Psychiatric Symptoms Stated complaint: SI Time Seen by Provider: 12/05/17 16:08 Source: patient Limitations: no limitations Nursing Notes Reviewed: Yes Vital Signs Reviewed: Yes - History of Present Illness HPI Narrative: Mr Chen is a 62 yo M well known to [facility] presents with suicidal ideation. Patient reports drinking 1/5th of vodka a day. Today he's had 2 cups. Patient denies history of withdrawal or seizure like symptoms but has been admitted multiple times for CIWA protocol. Patient was last here two days ago with similar symptoms. He's attempted to quit multiple times by himself with minimal success. He reports he does not have social support around him. Patient denies f/c/n/v/sob/cp. Pain Scale: 10 - Related Data Home Medications Medication Instructions Recorded Confirmed Unable To Obtain [Unable to Obtain] 11/29/17 11/29/17 Allergies Allergy/AdvReac Type Severity Reaction Status Date / Time Buspirone [From BuSpar] AdvReac See Verified 11/25/17 11:16 Comments tramadol AdvReac See Verified 11/25/17 11:16 Comments All systems ED: reviewed and negative except as stated. Review of Systems: As Per HPI Past Medical History - Past Medical History Attestation: Yes The following information was validated with the patient. Medical history: Reports: COPD, GERD, hyperlipidemia, hypertension, migraine, myocardial infarction, other Surgical history: Reports: appendectomy, cholecystectomy, other Psychiatric history: Reports: anxiety, bipolar, depression, schizophrenia - Social History Smoking Status: Current every day smoker Smokeless Tobacco Status: No Alcohol use: Reports: heavy, recent Drug use: Reports: none Physical Exam - General Limitations: no limitations General appearance: alert, in no apparent distress - Head Head exam: atraumatic, normocephalic, normal inspection - Eye Eye exam: Present: normal appearance, PERRL, EOMI - Chest Chest inspection: Present: normal inspection, symmetric chest wall rise - Respiratory Respiratory exam: Present: normal lung sounds bilaterally - Cardiovascular Cardiovascular exam: Present: regular rate, normal rhythm, normal heart sounds - Abdominal Exam Abdominal exam: Present: soft, Non-Tender, scar (midline 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 Absent: tenderness, distention, guarding, rebound, rigidity - Male exam: Present: other (terrell cath in place with minimal drainage) - Extremities Exam Extremities exam: Present: normal inspection, full ROM. Absent: tenderness, pedal edema Course Course Narrative: Patient placed on CIWA protocol and Banana bag hanged. Labs ordered. Will admit patient for psych hold for SI ideation and alcohol withdrawal monitoring. - Reevaluation(s) Reevaluation #1: CBC and BMP returned - hgb 12.9 and K+ 3.1. Patient remains on CIWA protocol, has received a banana bag, and remains stable. Patient will be admitted for suicidial ideation and etoh withdrawal observation. Time: 17:40 Vital Signs Temperature 97.8 F 12/05/17 16:12 Pulse Rate 94 12/05/17 16:12 Respiratory Rate 16 12/05/17 16:12 Blood Pressure 122/75 12/05/17 16:12 O2 Sat by Pulse Oximetry 95 12/05/17 16:12 Temperature 97.8 F 12/05/17 16:12 Pulse Rate 94 12/05/17 16:12 Respiratory Rate 16 12/05/17 16:12 Blood Pressure 122/75 12/05/17 16:12 O2 Sat by Pulse Oximetry 95 12/05/17 16:12 Oxygen Delivery Oxygen Delivery Room Air Medical Decision Making - [facility] Narrative Medical decision making narrative: Patient expresses suicidal ideation. Patient is well known alcoholic and was placed on CIWA protocol and given banana bag on admission. Patient showed no signs of withdrawal during his time in the ED. Patients blood alcohol is 247. patient is found to be slightly anemic and hypokalemic. Patient admitted for SI and etoh withdrawal. - Medical Records Medical records reviewed: Yes I reviewed the patient's medical records. - Lab Data Lab results reviewed: Yes I reviewed the patient's lab results. Result diagrams: 12/05/17 16:48 12/05/17 16:48 Lab Results 12/05/17 12/05/17 Range/Units 16:48 16:48 WBC 4.3 (4.3-11.1) K/mcL RBC 4.51 (4.19-5.50) M/mcL Hgb 12.3 L (12.9-16.9) g/dL Hct 39.7 (37.5-50.1) % MCV 88.0 (83.0-100.0) fL MCH 27.3 L (28.0-33.3) pg MCHC 31.0 L (31.6-35.5) g/dL RDW 15.9 H (11.5-14.5) % Plt Count 144 (140-400) K/mcL MPV 10.6 (9.4-12.4) fL Immature Gran % 0.2 (0-4) % Seg Neutrophils % 51.1 % Lymphocytes % 33.0 % Monocytes % 11.3 % Eosinophils % 3.2 % Basophils % 1.2 % Neutrophils # 2.2 (1.6-8.9) K/mcL Lymphocytes # 1.4 (0.6-4.6) K/mcL Monocytes # 0.5 (0.0-1.3) K/mcL Eosinophils # 0.1 (0.0-0.6) K/mcL Basophils # 0.1 (0.0-0.2) K/mcL Sodium 140 (136-145) mEq/L Potassium 3.1 L (3.5-5.1) mEq/L Chloride 106 (98-107) mEq/L Carbon Dioxide 25 (23-29) mEq/L BUN 8 (8-23) mg/dL Creatinine 0.87 (0.70-1.30) mg/dL Est GFR ( Amer) > 60 (> 60) Est GFR (Non-Af Amer) > 60 (> 60) BUN/Creatinine Ratio 9 (6-26) Glucose 104 (70-105) mg/dL Calculated Osmolality 289 (280-300) Calcium 9.0 (8.6-10.3) mg/dL Salicylates < 5.0 L (15.0-30.0) mg/dL Acetaminophen < 1.0 L (10-30) mcg/mL Ethyl Alcohol 247 H (0-10) mg/dL
[2017-12-05 17:09] LABS: Basophils # 0.1 K/mcL (0.0-0.2); Basophils % 1.2 %; Eosinophils # 0.1 K/mcL (0.0-0.6); Eosinophils % 3.2 %; Hematocrit 39.7 % (37.5-50.1); Hemoglobin 12.3 g/dL (12.9-16.9); Immature Granulocytes % 0.2 % (0-4); Lymphocytes # 1.4 K/mcL (0.6-4.6); Mean Corpuscular Hemoglobin 27.3 pg (28.0-33.3); Mean Platelet Volume 10.6 fL (9.4-12.4); Monocytes # 0.5 K/mcL (0.0-1.3); Monocytes % 11.3 %; Neutrophils # 2.2 K/mcL (1.6-8.9); Platelet Count 144 K/mcL (140-400); Red Blood Count 4.51 M/mcL (4.19-5.50); Red Cell Distribution Width 15.9 % (11.5-14.5); Segmented Neutrophils % 51.1 %
--- NOTE | 2017-12-05 17:16 | Emergency Department Note ---
START Narrative - START START: I examined this patient and my medical decision-making was reviewed with the Resident Physician. I agree with the documented findings, disposition and treatment plan as described except to the extent set forth below. 62 year old male presntse to the ED with ETOH withdrawl. He is familiar to our system. He frequently runs f of money and can no longer buy alochol and then abruptly goe through etoh withdrawl, which causes him to become suicidial. Babatunde will be admitted to medicine for ETOH withdrawl for medicaly clearnce and then 1A consult
[2017-12-05 17:24] LABS: Ethanol 247 mg/dL (0-10)
[2017-12-05 17:25] LABS: BUN/Creatinine Ratio 9 (6-26); Blood Urea Nitrogen 8 mg/dL (8-23); Carbon Dioxide 25 mEq/L (23-29); Chloride 106 mEq/L (98-107); Glucose 104 mg/dL (70-105); Osmolality,Calculated 289 (280-300); Potassium 3.1 mEq/L (3.5-5.1); Sodium 140 mEq/L (136-145); eGFR For African Americans > 60 (> 60); eGFR For Non-African Americans > 60 (> 60)
[2017-12-05 17:26] LABS: Acetaminophen < 1.0 mcg/mL (10-30); Salicylate < 5.0 mg/dL (15.0-30.0)
[2017-12-05 18:06] LABS: Bilirubin,Urine Negative (Negative); Blood,Urine Large (Negative); Clarity,Urine Cloudy (Clear); Color,Urine Yellow (Yellow); Glucose,Urine (UA) Normal (Normal); Ketones,Urine Negative (Negative); Leukocyte Esterase,Urine Trace (Negative); Nitrite,Urine Positive (Negative); PH,Urine 6.5 pH Units (5.0-8.0); Protein,Urine 30 mg/dL (Neg-Trace); Specific Gravity,Urine 1.008 (1.010-1.025); Urobilinogen,Urine Normal (Normal)
[2017-12-05 18:08] LABS: Bacteria,Urine Moderate per hpf (None-Few); Hyaline Casts,Urine None Seen per lpf (None-Few); Squamous Epithelial Cell,Urine Few per lpf (None-Few); WBC,Urine 0-3 per hpf (0-3)
[2017-12-05 18:13] LABS: Amphetamine Screen,Urine Negative ng/mL (Cutoff=1000); Barbiturate Screen,Urine Negative ng/mL (Cutoff=200); Benzodiazepines Screen,Urine Positive ng/mL (Cutoff=200); Cannabinoid Screen,Urine Negative ng/mL (Cutoff = 50); Cocaine Screen,Urine Negative ng/mL (Cutoff= 300); Opiate Screen,Urine Negative ng/mL (Cutoff=300); Phencyclidine Screen,Urine Negative ng/mL (Cutoff=25)
--- NOTE | 2017-12-05 22:47 | General Surg History&Physical ---
Date of Encounter: 12/06/17 Time of Encounter: 21:45 Assessment and Plan (1) Alcohol intoxication Current Visit: Yes Status: Acute Acute alcohol intoxication -monitor overnight for symptoms and signs of alcohol withdrawal -replace fluids and electrolytes -thiamine Qualifiers: (2) Suicidal ideation Current Visit: Yes Status: Acute Passive suicidal ideation. No intent of self harm. Previous h/o SI and attempted suicide. - (3) Tobacco abuse Current Visit: No Status: Chronic 1/2 to 3/4 ppd. requesting nicotine patch History of Present Illness Chief complaint: suicidal ideation HPI: Mr. Chen is a 62 year old male Past Med Surg Social Fam HX - Past Medical History Medical history: COPD, GERD, hyperlipidemia, hypertension, migraine, myocardial infarction, other Psychiatric history: anxiety, bipolar, depression, schizophrenia - Past Surgical History Surgical History: appendectomy, cholecystectomy, other - Social History Smoking Status: Current every day smoker Packs per day: 1/2 Smokeless Tobacco Status: No Alcohol use: heavy, recent Drug use: none - Family History Mother Adopted: No Family Member Ethnicity: Non- Living Status: Still Living Age at : 82 Hx Family Cardiac Disorders: Yes (HTN) Hx Family Respiratory Disorders: No Hx Family Cancer: No Hx Family GI Disorders: No Hx Family Endocrine Disorder: No Hx Family Neuromuscular Disorders: No Hx Family Neurologic Disorders: Yes (neuropathy) Hx Family HEENT Disorders: No Hx Family Autoimmune Disorders: No Father Living Status: Age at : 33 Cause of : Drown Medications and Allergies Unable To Obtain [Unable to Obtain] 11/29/17 [History] 3 Allergy/AdvReac Type Severity Reaction Status Date / Time Buspirone [From BuSpar] AdvReac See Verified 11/25/17 11:16 Comments tramadol AdvReac See Verified 11/25/17 11:16 Comments Review of Systems All systems PM: A 10-system review of systems was performed and is negative for pertinent findings except as documented above in the HPI. General Surgery Exam Initial Vital Signs Temp Pulse Resp BP Pulse Ox 97.8 F 94 16 122/75 95 12/05/17 16:12 12/05/17 16:12 12/05/17 16:12 12/05/17 16:12 12/05/17 16:12 Results - Labs 12/05/17 16:48 12/05/17 16:48 Abnormal lab results Hgb 12.3 g/dL (12.9-16.9) L 12/05/17 16:48 MCH 27.3 pg (28.0-33.3) L 12/05/17 16:48 MCHC 31.0 g/dL (31.6-35.5) L 12/05/17 16:48 RDW 15.9 % (11.5-14.5) H 12/05/17 16:48 Potassium 3.1 mEq/L (3.5-5.1) L 12/05/17 16:48 Urine Clarity Cloudy (Clear) A 12/05/17 17:55 Ur Specific [place] 1.008 (1.010-1.025) L 12/05/17 17:55 Urine Protein 30 mg/dL (Neg-Trace) H 12/05/17 17:55 Urine Blood Large (Negative) H 12/05/17 17:55 Urine Nitrite Positive (Negative) A 12/05/17 17:55 Ur Leukocyte Esterase Trace (Negative) H 12/05/17 17:55 Urine Microscopic RBC 5-15 per hpf (0-3) H 12/05/17 17:55 Urine Bacteria Moderate per hpf (None-Few) H 12/05/17 17:55 Salicylates < 5.0 mg/dL (15.0-30.0) L 12/05/17 16:48 Acetaminophen < 1.0 mcg/mL (10-30) L 12/05/17 16:48 U Benzodiazepines Scrn Positive ng/mL (Yswiwa=241) H 12/05/17 17:55 Ethyl Alcohol 247 mg/dL (0-10) H 12/05/17 16:48 All other labs normal.
[2017-12-05] MEDS ORDERED: diazePAM 10 MG/2 ML SYRINGE IVP PRN (23:35)
[2017-12-05] MEDS ORDERED: Naloxone 0.4 MG/ML INJ IVP PRN (23:41)
[2017-12-06] MEDS: Nicotine 14 MG PATCH.TD24 TD SCH ×2 (00:06→07:49)
--- NOTE | 2017-12-06 00:21 | Internal Med History&Physical ---
<Patricia Alvarado - Last Filed: 12/06/17 01:46> Date of Encounter: 12/06/17 Time of Encounter: 21:40 Assessment and Plan (1) Alcohol intoxication Current visit: Yes Status: Acute Blood EtOH 247 on presentation. Well known h/o alcohol abuse and seen numerous times at [facility] for alcohol intoxication. Banana bag started in ED for replacement of electrolytes. Observing for signs/symptoms of EtOH withdrawal. Placed on CIWA protocol. Ativan 2mg PO BID ordered due to supply shortage of valium. Fall precautions. Qualifiers: Complication of substance-induced condition: uncomplicated Qualified Code(s ): F10.920 - Alcohol use, unspecified with intoxication, uncomplicated (2) Suicidal ideation Current visit: Yes Status: Acute Passive suicidal ideation without intent or plan to kill himself. Suicide precautions with sitter outside of room. (3) Hypokalemia Current visit: No Status: Acute Potassium 3.1 on presentation, banana bag started in ED. Will recheck with morning labs. (4) Tobacco abuse Current visit: Yes Status: Chronic half to 3/4 ppd. Nicotine patch ordered per pt request. (5) DVT prophylaxis Current visit: No Status: Acute Heparin 5,000 units suQ q12h Internal Medicine - H&P: HPI Chief complaint: suicidal ideation History of present illness: Mr. Chen is a 62 year old male with PMH of COPD, GERD, HTN, HLD, ID, EtOH abuse who is well acquainted with [facility] and presents today for suicidal ideation. Pt says today he began to feel he'd be better off if he was "not here " and wished he would "fade away" or "disappear." He denies suicide plan, states he could "never go through with it" due to his [employer] beliefs. States he wants to quit drinking. Last alcoholic drink was around 3 to 4 pm and he had "2 cups" of vodka, each cup approximately the size of small styrofoam cup at bedside. Admits to past h/o suicidal ideation and attempted suicide by slashing wrist @ age 18. He admits past h/o alcohol withdrawal, but denies seizures or loss of consciousness. Denies chest pain, N/V, fever, chills, diarrhea, constipation, tremor, hallucinations but admits feels quite anxious. Past Med Surg Social Fam HX - Past Medical History Medical history: COPD, GERD, hyperlipidemia, hypertension, migraine, myocardial infarction, other Psychiatric history: anxiety, bipolar, depression, schizophrenia - Past Surgical History Surgical History: appendectomy, cholecystectomy, other - Social History Smoking Status: Current every day smoker Packs per day: 1/2 Smokeless Tobacco Status: No Alcohol use: heavy, recent Drug use: none - Family History Mother Adopted: No Family Member Ethnicity: Non- Living Status: Still Living Age at : 82 Hx Family Cardiac Disorders: Yes (HTN) Hx Family Respiratory Disorders: No Hx Family Cancer: No Hx Family GI Disorders: No Hx Family Endocrine Disorder: No Hx Family Neuromuscular Disorders: No Hx Family Neurologic Disorders: Yes (neuropathy) Hx Family HEENT Disorders: No Hx Family Autoimmune Disorders: No Father Living Status: Age at : 33 Cause of : Drown Internal Medicine - H&P: Meds Unable To Obtain [Unable to Obtain] 11/29/17 [History] 3 Allergy/AdvReac Type Severity Reaction Status Date / Time Buspirone [From BuSpar] AdvReac See Verified 11/25/17 11:16 Comments tramadol AdvReac See Verified 11/25/17 11:16 Comments All Systems PM: A 10-system review of systems was performed and is negative for pertinent findings except as documented above in the HPI. - Constitutional Vitals: Temp Pulse Resp BP Pulse Ox 97.8 F 85 16 143/85 94 12/05/17 22:59 12/05/17 22:59 12/05/17 22:59 12/05/17 22:59 12/05/17 22:59 General appearance: Present: cooperative, A&O X 3, no acute distress, answers questions appropriately - Head Head exam: Present: atraumatic, normocephalic - Eye Eye exam: Present: EOMI, normal appearance. Absent: scleral icterus - Neck Neck exam general surgery: Present: full ROM, supple - Respiratory Respiratory exam: Present: CTAB. Absent: rales, respiratory distress, rhonchi, wheezes - Cardiovascular Cardiovascular exam: Present: RRR, +S1, +S2. Absent: diastolic murmur, systolic murmur - GI/Abdominal GI/Abdominal exam: Present: normal bowel sounds. 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 Absent: pedal edema - Neurological Exam Neurological exam: Present: alert, oriented X3, no focal deficits, strengths equal and symetr throughout. Absent: altered Additional comments: no tremor - Psychiatric Psychiatric exam: Present: depressed Additional comments: denies tactile, auditory, or visual hallucinations Internal Med - H&P Results - Labs CBC & Chem 7: 12/05/17 16:48 12/05/17 16:48 <Ashwin Pennington P - Last Filed: 12/06/17 02:43> Date of Encounter: 12/06/17 Internal Medicine - H&P: HPI History of present illness: Mr. Chen is a 62 year old male All Systems PM: A 10-system review of systems was performed and is negative for pertinent findings except as documented above in the HPI. - Constitutional Vitals: Temp Pulse Resp BP Pulse Ox 97.8 F 85 16 143/85 94 12/05/17 22:59 12/05/17 22:59 12/05/17 22:59 12/05/17 22:59 12/05/17 22:59 Internal Med - H&P Results - Labs CBC & Chem 7: 12/05/17 16:48 12/05/17 16:48 - Attending Attestation I examined this patient and my medical decision-making was reviewed with the Resident Physician. I agree with the documented findings, disposition and treatment plan as described except to the extent set forth below. I have examined this patient in person. I agree with evaluation and management plan drawn by resident. Need home medications.
[2017-12-06] MEDS ORDERED: *HR* LORazepam 1 MG TABLET PO PRN (00:45)
[2017-12-06] MEDS ORDERED: *HR* LORazepam 2 MG/ML VIAL IVP PRN (01:35)
[2017-12-06] MEDS: *HR* LORazepam 2 MG/ML VIAL IVP PRN ×5 (02:01→19:55)
[2017-12-06 03:29] LABS: Hematocrit 39.4 % (37.5-50.1); Hemoglobin 12.3 g/dL (12.9-16.9); Mean Corpuscular HGB Conc 31.2 g/dL (31.6-35.5); Mean Corpuscular Hemoglobin 26.9 pg (28.0-33.3); Mean Platelet Volume 10.1 fL (9.4-12.4); Platelet Count 133 K/mcL (140-400); Red Blood Count 4.58 M/mcL (4.19-5.50); Red Cell Distribution Width 15.6 % (11.5-14.5)
[2017-12-06 03:51] LABS: BUN/Creatinine Ratio 10 (6-26); Blood Urea Nitrogen 8 mg/dL (8-23); Carbon Dioxide 25 mEq/L (23-29); Chloride 106 mEq/L (98-107); Glucose 99 mg/dL (70-105); Osmolality,Calculated 284 (280-300); Potassium 3.3 mEq/L (3.5-5.1); Sodium 138 mEq/L (136-145); eGFR For African Americans > 60 (> 60); eGFR For Non-African Americans > 60 (> 60)
[2017-12-06] MEDS: Pregabalin 75 MG CAPSULE PO SCH ×3 (03:59→21:16)
[2017-12-06] MEDS: *HR* Heparin 5,000 UNIT/ML VIAL SQ SCH ×2 (06:29→18:43)
[2017-12-06] MEDS ORDERED: Potassium Chloride Elixir 20 MEQ/15 ML UDC PO ONE (06:56)
[2017-12-06] MEDS: Thiamine (B-1) 100 MG TABLET PO SCH (07:48)
[2017-12-06] MEDS: Vitamin B Complex/Vit C/Vit E 1 EACH TABLET PO SCH (07:48)
[2017-12-06] MEDS: Folic Acid 1 MG TABLET PO SCH (07:48)
--- NOTE | 2017-12-06 13:16 | Internal Med Progress Note ---
Date of Encounter: 12/06/17 Time of Encounter: 09:30 - Assessment and plan (1) Alcohol intoxication Current Visit: Yes Status: Acute Assessment and plan: Chronic. EtOH level 247 on arrival. Repeat blood alcohol pending. Monitor for signs of withdrawal. CIWA protocol in place. Qualifiers: Complication of substance-induced condition: uncomplicated Qualified Code(s ): F10.920 - Alcohol use, unspecified with intoxication, uncomplicated (2) Suicidal ideation Current Visit: Yes Status: Acute Assessment and plan: Patient denies suicidal ideation today. States he does not have a plan and states that he would not ever be able to follow through with killing himself. Sitter at bedside. Psych consult in and pending. (3) Tobacco abuse Current Visit: Yes Status: Chronic Assessment and plan: Chronic. Nicotine patch (4) Alcohol withdrawal Current Visit: Yes Status: Acute Assessment and plan: Plan as above. Qualifiers: Complication of substance-induced condition: uncomplicated Qualified Code(s ): F10.230 - Alcohol dependence with withdrawal, uncomplicated (5) Hypokalemia Current Visit: Yes Status: Acute Assessment and plan: Potassium 3.3. Supplements with KCl 20meq po BID. Monitor labs until corrected. (6) DVT prophylaxis Current Visit: Yes Status: Acute Assessment and plan: Heparin SQ BID. - Time Spent With Patient less than 15 minutes - Subjective Interval history: Pt was seen and assessed at 0930. Pt is drowsy, arouses easily to verbal stiimuli. Pt is pleasant and alert, states that he is hungry and denies SI. He states that he told the ER staff that he wanted "it all to end", meaning his alcoholism. Pt denies needs currently. CIWA in place. - Constitutional Vitals: Temp Pulse Resp BP Pulse Ox 98 F 93 17 146/94 98 12/06/17 11:21 12/06/17 11:21 12/06/17 11:21 12/06/17 11:21 12/06/17 11:21 General appearance: Present: cooperative, disheveled, A&O X 3, pleasant, no acute distress, answers questions appropriately - Head Head exam: Present: atraumatic, normal inspection, normocephalic - Eye Eye exam: Present: normal appearance, conjuntiva pink, sclera anicteric - Neck Neck exam general surgery: Present: normal inspection, supple, trachea midline. Absent: lymphadenopathy, tenderness - Respiratory Respiratory exam: Present: decreased breath sounds, CTAB. Absent: accessory muscle use, chest wall tenderness, rales, respiratory distress, rhonchi, wheezes - Cardiovascular Cardiovascular exam: Present: RRR, +S1, +S2. Absent: diastolic murmur, gallop, rubs, systolic murmur - GI/Abdominal GI/Abdominal exam: Present: normal bowel sounds, soft, no peritoneal signs. Absent: distended, hepatomegaly, tenderness - Extremities Exam Extremities exam: Present: normal capillary refill, warm, radial pulses palpable and symmetrical. Absent: calf tenderness, cyanotic, pedal edema, tenderness - Neurological Exam Neurological exam: Present: alert, oriented X3, no focal deficits. Absent: facial droop, speech deficit - Skin Skin exam: Present: dry, intact, normal color, warm. Absent: rash Internal Medicine: Result - Labs CBC & Chem 7: 12/06/17 03:23 12/06/17 03:23 Labs: Short CBC 12/06/17 Range/Units 03:23 WBC 4.3 (4.3-11.1) K/mcL Hgb 12.3 L (12.9-16.9) g/dL Hct 39.4 (37.5-50.1) % Plt Count 133 L (140-400) K/mcL [facility] 12/06/17 03:23 Sodium 138 Potassium 3.3 L Chloride 106 Carbon Dioxide 25 BUN 8 Creatinine 0.81 Glucose 99 Calcium 9.0 Consult Discharge Plan - Plan Referrals: NONE,PCP [Primary Care Provider] -
--- NOTE | 2017-12-06 14:03 | Consult Note ---
Date of Encounter: 12/06/17 Time of Encounter: 13:55 Assessment & Recommendation (1) Alcohol withdrawal Current visit: Yes Status: Acute Assessment & Recommendation: [facility] once acute withdrawals have passed. Will need inpatient rehab and outpatient mental health. Would likely benefit from antidepressants down the road but medications are likely to be ineffective until acute withdrawal period is over. Can restart treatment for depression during rehab program. Qualifiers: Complication of substance-induced condition: uncomplicated Qualified Code(s ): F10.230 - Alcohol dependence with withdrawal, uncomplicated History of Present Illness Requesting Physician: Bekah Johnson CNP Reason for consult: suicidal ideation History of present illness: Mr. Chen is a 62 year old male who presented to the ER secondary to alcohol withdrawal and passive SI. Client states today he is not suicidal and that his words were taken out of context. He admits to SI in the past but claims he would never make an attempt now. One attempt at age [age] and none since. Has been treated for depression in the past through the [facility] but has not been seen in over a year. Has gone through E[facility] rehab in the past as well-three times through the [facility] and once in [place]. Some success with rehab in the past. Willing to do it again. Sees Etoh use as his biggest problem. Tries to stop on his own but cannot handle the withdrawals. Using a fifth of vodka daily. Denies any other drug use. 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 [facility]. Needs to see a Psychiatrist to manage depression but also needs to get alcohol use under control first. Once acute withdrawals have passed would recommend going through the [facility] for rehab and relinkage with mental health care. CC: Bekah Johnson CNP Past Med Surg Social Fam HX - Past Medical History Medical history: COPD, GERD, hyperlipidemia, hypertension, migraine, myocardial infarction, other - Past Psychiatric History Psychiatric history: Reports: depression, prior suicide attempt, previous psychiatric hospitalization Family psychiatric history: Unknown Family History of Suicide: Unknown - Past Surgical History Surgical History: appendectomy, cholecystectomy, other - Social History Smoking Status: Current every day smoker Smokeless Tobacco Status: No Alcohol use: heavy, recent Drug use: none - Family History Mother Adopted: No Family Member Ethnicity: Non- Living Status: Still Living Age at : 82 Hx Family Cardiac Disorders: Yes (HTN) Hx Family Respiratory Disorders: No Hx Family Cancer: No Hx Family GI Disorders: No Hx Family Endocrine Disorder: No Hx Family Neuromuscular Disorders: No Hx Family Neurologic Disorders: Yes (neuropathy) Hx Family HEENT Disorders: No Hx Family Autoimmune Disorders: No Father Living Status: Age at : 33 Cause of : Drown Medications & Allergies Amitriptyline [Elavil] 75 mg PO HS 12/06/17 [History] Amlodipine Besylate [Amlodipine Besylate] 10 mg PO DAILY 12/06/17 [History] Budesonide/Formoterol 160/4.5 [Symbicort 160/4.5] 2 puff IH BID 12/06/17 [ History] Lipase/Protease/Amylase [Ananya Kern 12,000 Units Capsule] 2 cap PO TIDWM 12/06/17 [History] Omeprazole [PriLOSEC] 20 mg PO DAILY 12/06/17 [History] Pregabalin [Lyrica] 150 mg PO BID 12/06/17 [History] 3 Allergy/AdvReac Type Severity Reaction Status Date / Time Buspirone [From BuSpar] AdvReac See Verified 11/25/17 11:16 Comments tramadol AdvReac See Verified 11/25/17 11:16 Comments Review of Systems Constitutional: Reports: weakness Eyes: Denies: eye pain, vision change Ears, Nose, Throat: Denies: ear pain, throat pain, dental pain, hearing loss, congestion Cardiovascular: Denies: chest pain, palpitations, dyspnea on exertion Respiratory: Denies: cough, dyspnea, wheezes Gastrointestinal: Reports: abdominal pain Genitourinary male: Denies: urgency, dysuria, frequency, genital lesions Genitourinary female: Denies: urgency, dysuria, frequency, abnormal menses, dyspareunia Musculoskeletal: Reports: myalgia Integumentary: Denies: rash, lesions, pruritus Neurological: Reports: weakness, numbness Endocrine: Denies: fatigue, heat or cold intolerance Hematologic/Lymphatic: Denies: easy bruising, lymphadenopathy Allergic/Immunologic: Denies: urticaria, itchy eyes Mental Status Exam Patient orientation: Yes Person, Yes Time, Yes Place Level of alertness: Alert Patient appearance: Appropriate Behavior: calm, cooperative Psychomotor activity: Increased Eye contact: Maintains Eye Contact Mood description: Depressed Affect description: congruent with mood Speech pattern: Normal rate, Normal rhythm, Normal tone Speech volume: Normal Thought process: Linear Thought content: No Suicidal ideation, No Homicidal ideation, No Overt delusions Perceptual disturbances: No Auditory hallucinations, No Visual hallucinations Attention span: Capable of Focused Attention Memory description: Grossly Intact Patient reliability: Reliable Historian Intelligence estimate: Average Judgment: Limited Insight: Partial Results - Vital Signs Vital signs: Temp Pulse Resp BP Pulse Ox 98 F 93 17 146/94 98 12/06/17 11:21 12/06/17 11:21 12/06/17 11:21 12/06/17 11:21 12/06/17 11:21 - Labs Labs: Laboratory Last Values WBC 4.3 K/mcL (4.3-11.1) 12/06/17 03:23 RBC 4.58 M/mcL (4.19-5.50) 12/06/17 03:23 Hgb 12.3 g/dL (12.9-16.9) L 12/06/17 03:23 Hct 39.4 % (37.5-50.1) 12/06/17 03:23 MCV 86.0 fL (83.0-100.0) 12/06/17 03:23 MCH 26.9 pg (28.0-33.3) L 12/06/17 03:23 MCHC 31.2 g/dL (31.6-35.5) L 12/06/17 03:23 RDW 15.6 % (11.5-14.5) H 12/06/17 03:23 Plt Count 133 K/mcL (140-400) L 12/06/17 03:23 MPV 10.1 fL (9.4-12.4) 12/06/17 03:23 Immature Gran % 0.2 % (0-4) 12/05/17 16:48 Seg Neutrophils % 51.1 % 12/05/17 16:48 Lymphocytes % 33.0 % 12/05/17 16:48 Monocytes % 11.3 % 12/05/17 16:48 Eosinophils % 3.2 % 12/05/17 16:48 Basophils % 1.2 % 12/05/17 16:48 Neutrophils # 2.2 K/mcL (1.6-8.9) 12/05/17 16:48 Lymphocytes # 1.4 K/mcL (0.6-4.6) 12/05/17 16:48 Monocytes # 0.5 K/mcL (0.0-1.3) 12/05/17 16:48 Eosinophils # 0.1 K/mcL (0.0-0.6) 12/05/17 16:48 Basophils # 0.1 K/mcL (0.0-0.2) 12/05/17 16:48 Sodium 138 mEq/L (136-145) 12/06/17 03:23 Potassium 3.3 mEq/L (3.5-5.1) L 12/06/17 03:23 Chloride 106 mEq/L (98-107) 12/06/17 03:23 Carbon Dioxide 25 mEq/L (23-29) 12/06/17 03:23 BUN 8 mg/dL (8-23) 12/06/17 03:23 Creatinine 0.81 mg/dL (0.70-1.30) 12/06/17 03:23 Est GFR ( Amer) > 60 (> 60) 12/06/17 03:23 Est GFR (Non-Af Amer) > 60 (> 60) 12/06/17 03:23 BUN/Creatinine Ratio 10 (6-26) 12/06/17 03:23 Glucose 99 mg/dL (70-105) 12/06/17 03:23 Calculated Osmolality 284 (280-300) 12/06/17 03:23 Calcium 9.0 mg/dL (8.6-10.3) 12/06/17 03:23 Urine Color Yellow (Yellow) 12/05/17 17:55 Urine Clarity Cloudy (Clear) A 12/05/17 17:55 Urine pH 6.5 pH Units (5.0-8.0) 12/05/17 17:55 Ur Specific [place] 1.008 (1.010-1.025) L 12/05/17 17:55 Urine Protein 30 mg/dL (Neg-Trace) H 12/05/17 17:55 Urine Glucose (UA) Normal mg/dL (Normal) 12/05/17 17:55 Urine Ketones Negative mg/dL (Negative) 12/05/17 17:55 Urine Blood Large (Negative) H 12/05/17 17:55 Urine Nitrite Positive (Negative) A 12/05/17 17:55 Urine Bilirubin Negative (Negative) 12/05/17 17:55 Urine Urobilinogen Normal mg/dL (Normal) 12/05/17 17:55 Ur Leukocyte Esterase Trace (Negative) H 18 17:55 Urine Microscopic RBC 5-15 per hpf (0-3) H 18 17:55 Urine Microscopic WBC 0-3 per hpf (0-3) 12/05/17 17:55 Ur Squamous Epith Cells Few per lpf (None-Few) 18 17:55 Urine Bacteria Moderate per hpf (None-Few) H 12/05/17 17:55 Hyaline Casts None Seen per lpf (None-Few) 12/05/17 17:55 Salicylates < 5.0 mg/dL (15.0-30.0) L 12/05/17 16:48 Urine Opiates Screen Negative ng/mL (Zbyewt=641) 12/05/17 17:55 Acetaminophen < 1.0 mcg/mL (10-30) L 12/05/17 16:48 Ur Barbiturates Screen Negative ng/mL (Awvuob=708) 18 17:55 Ur Phencyclidine Scrn Negative ng/mL (Cutoff=25) 18 17:55 Ur Amphetamines Screen Negative ng/mL (Nyoyns=7606) 18 17:55 U Benzodiazepines Scrn Positive ng/mL (Iobmgl=656) H 18 17:55 Urine Cocaine Screen Negative ng/mL (Cutoff= 300) 12/05/17 17:55 U Marijuana (THC) Screen Negative ng/mL (Cutoff = 50) 18 17:55 Ethyl Alcohol 247 mg/dL (0-10) H 18 16:48 Consult Discharge Plan - Plan Referrals: NONE,PCP [Primary Care Provider] -
[2017-12-06] MEDS ORDERED: Acetaminophen 325 MG TABLET PO PRN (19:56)
[2017-12-06 21:46] LABS: Albumin 4.4 g/dL (3.5-5.7); Albumin/Globulin Ratio 1.4 (1.1-2.2); Bilirubin,Direct 0.2 mg/dL (0.0-0.2); Bilirubin,Indirect 0.4 mg/dL (0.0-1.2); Bilirubin,Total 0.6 mg/dL (0.3-1.0); Globulin 3.2 g/dL (2.4-3.5); Total Protein 7.6 g/dL (6.4-8.9)
[2017-12-06] MEDS: Ibuprofen 600 MG TABLET PO PRN (23:02)
[2017-12-07] MEDS: *HR* LORazepam 2 MG/ML VIAL IVP PRN ×3 (00:27→08:29)
[2017-12-07 05:46] LABS: Eosinophils # 0.1 K/mcL (0.0-0.6); Eosinophils % 3.6 %; Hematocrit 39.9 % (37.5-50.1); Hemoglobin 12.4 g/dL (12.9-16.9); Immature Granulocytes % 0.3 % (0-4); Lymphocytes # 1.1 K/mcL (0.6-4.6); Lymphocytes % 28.5 %; Mean Corpuscular HGB Conc 31.1 g/dL (31.6-35.5); Mean Corpuscular Hemoglobin 27.3 pg (28.0-33.3); Mean Corpuscular Volume 87.7 fL (83.0-100.0); Mean Platelet Volume 11.3 fL (9.4-12.4); Monocytes # 0.4 K/mcL (0.0-1.3); Monocytes % 9.7 %; Neutrophils # 2.2 K/mcL (1.6-8.9); Platelet Count 141 K/mcL (140-400); Red Blood Count 4.55 M/mcL (4.19-5.50); Red Cell Distribution Width 15.6 % (11.5-14.5); Segmented Neutrophils % 56.9 %
[2017-12-07] MEDS: *HR* Heparin 5,000 UNIT/ML VIAL SQ SCH (06:05)
[2017-12-07 06:08] LABS: BUN/Creatinine Ratio 15 (6-26); Blood Urea Nitrogen 14 mg/dL (8-23); Calcium 9.7 mg/dL (8.6-10.3); Carbon Dioxide 23 mEq/L (23-29); Chloride 104 mEq/L (98-107); Glucose 101 mg/dL (70-105); Osmolality,Calculated 281 (280-300); Potassium 3.7 mEq/L (3.5-5.1); Sodium 135 mEq/L (136-145); eGFR For African Americans > 60 (> 60); eGFR For Non-African Americans > 60 (> 60)
[2017-12-07] MEDS: Pregabalin 75 MG CAPSULE PO SCH (08:28)
[2017-12-07] MEDS: Vitamin B Complex/Vit C/Vit E 1 EACH TABLET PO SCH (08:28)
[2017-12-07] MEDS: Thiamine (B-1) 100 MG TABLET PO SCH (08:28)
[2017-12-07] MEDS: Nicotine 14 MG PATCH.TD24 TD SCH (08:28)
[2017-12-07] MEDS: Folic Acid 1 MG TABLET PO SCH (08:29)
[2017-12-07] MEDS: Ibuprofen 600 MG TABLET PO PRN (08:29)
[2017-12-07 12:53] VITALS: BP 166/93
--- NOTE | 2017-12-07 14:33 | Discharge Summary ---
Date of Encounter: 12/07/17 Time of Encounter: 08:45 - Discharge Diagnosis (1) Alcohol intoxication Priority: Secondary Status: Resolved Comments: Chronic. Patient was getting C1 protocol. He did not score high enough to continue today. She reports initially that he wanted to go to the [facility] for [facility]. Now he does not want to go and wants to go home. Qualifiers: Complication of substance-induced condition: uncomplicated Qualified Code(s ): F10.920 - Alcohol use, unspecified with intoxication, uncomplicated (2) Suicidal ideation Priority: Secondary Status: Resolved Comments: Pt was initially admitted for suicidal ideation. Patient then states that he did not mean he wanted to end it, he states that he wanted his alcoholism to end. He was evaluated by psychiatry, acknowledge patient was not suicidal. He was not pink slipped while he was here. (3) Tobacco abuse Priority: Secondary Status: Chronic Comments: Chronic. Nicotine patch. Pt denies need for home. (4) Alcohol withdrawal Priority: Secondary Status: Acute Comments: Plan as above. Qualifiers: Complication of substance-induced condition: uncomplicated Qualified Code(s ): F10.230 - Alcohol dependence with withdrawal, uncomplicated (5) Hypokalemia Priority: Secondary Status: Acute Comments: Potassium 3.3. Supplemented with KCl 20meq po BID during admission . Resolved (6) DVT prophylaxis Priority: Secondary Status: Acute Comments: Pt is ambulatory. - Discharge Medications Home Medications: Amitriptyline [Elavil] 75 mg PO HS 12/06/17 [History] Amlodipine Besylate 10 mg PO DAILY 12/06/17 [History] Budesonide/Formoterol 160/4.5 [Symbicort 160/4.5] 2 puff IH BID 12/06/17 [ History] Lipase/Protease/Amylase [Ananya Kern 12,000 Units Capsule] 2 cap PO TIDWM 12/06/17 [History] Omeprazole [PriLOSEC] 20 mg PO DAILY 12/06/17 [History] Pregabalin [Lyrica] 150 mg PO BID 12/06/17 [History] Allergies/Adverse Reactions: 3 Allergy/AdvReac Type Severity Reaction Status Date / Time Buspirone [From BuSpar] AdvReac See Verified 11/25/17 11:16 Comments tramadol AdvReac See Verified 11/25/17 11:16 Comments Date of admission: 12/05/17 17:56 Primary care physician: PCP NONE Consults: 12/05/17 20:07 Consult to [facility] Supervisor [CONS] Routine Reason for SW Consult: mental health/substance abuse 12/06/17 07:52 Consult to Psychiatry [CONS] Routine Consulting Provider: Francesca Lara Reason for Consult: SI, etoh withdrawl Time Notified: 07:53 Call Completed: No Discharging clinician: Bekah Johnson Anticipated date of discharge: 12/07/17 - Patient Status Disposition: Home, Self-Care Condition: Good Functional capacity at discharge: independent ambulation Overall status at discharge: patient is back to baseline - Discharge Instructions Follow Up With: NONE,PCP [Primary Care Provider] - Additional Instructions: Please follow up with your Dr in the next 7-10 days. Please try to attend AA meetings or return to the [facility] abuse treatment plan at the [facility] Please follow up with psychiatry and get restarted on your medications. Hospital course: Mr. Chen is a 62 year old male with significant medical history and is well known to [facility] and this unit for prior visits. Patient was admitted for suicidal ideations, alcohol withdrawal, alcoholic intoxication. Patient states in the emergency department his words were twisted around and that he was not suicidal. He was evaluated by psychiatry, found to not be suicidal. Patient initially reported that he wanted to go to the [facility] for inpatient treatment for therapy and psychiatry. Today during evaluation, patient states that he did not want to do any of that and that he wants to go home. Patient was unable to score on the CIWA scale for Ativan, at this point patient states that he wanted to go home. Patient is being discharged at his request. He was not pink-slipped and denies SI. - Time Spent with Patient Total time spent providing and/or coordinating discharge services: Greater than 30 minutes (I spent at least 30 min in pt's room discussing treatment options this a.m.) - Constitutional Vitals: Temp Pulse Resp BP Pulse Ox 97.9 F 79 19 166/93 96 12/07/17 11:25 12/07/17 11:25 12/07/17 11:25 12/07/17 12:50 12/07/17 11:25 General appearance: Present: cooperative, disheveled, A&O X 3, pleasant, no acute distress, answers questions appropriately - Head Head exam: Present: atraumatic, normal inspection, normocephalic - Eye Eye exam: Present: normal appearance, conjuntiva pink, sclera anicteric - Neck Neck exam general surgery: Present: normal inspection, supple, trachea midline. Absent: lymphadenopathy, tenderness - Respiratory Respiratory exam: Present: CTAB. Absent: accessory muscle use, rales, respiratory distress, rhonchi, wheezes - Cardiovascular Cardiovascular exam: Present: RRR, +S1, +S2. Absent: diastolic murmur, gallop, rubs, systolic murmur - GI/Abdominal GI/Abdominal exam: Present: normal bowel sounds, soft. Absent: distended, hepatomegaly, tenderness - Extremities Exam Extremities exam: Present: normal capillary refill, normal inspection, warm, radial pulses palpable and symmetrical. Absent: calf tenderness, cyanotic, pedal edema, tenderness - Neurological Exam Neurological exam: Present: alert, oriented X3, no focal deficits. Absent: facial droop, speech deficit - Skin Skin exam: Present: dry, intact, normal color, warm. Absent: rash
== END 2017-12-07 14:50 | disposition home or self-care (01) ==
LOC: EMEROO 16:08 → 3BNU 16:08
PROVIDERS: ADMIT Internal Medicine; ATTEND Registered Nurse

== ENCOUNTER 2017-12-13 13:55 | Inpatient (IN) ==
[2017-12-13] MEDS ORDERED: *HR* LORazepam 2 MG/ML VIAL IVP ONE ×2 (14:15→15:28)
[2017-12-13] MEDS ORDERED: MVI, adult with vitamin K 10 ML in 0.9 % Sodium Chloride 1,000 ML IVC ONE (14:15)
[2017-12-13] MEDS ORDERED: 0.9 % Sodium Chloride 1,000 ML IVC ONE (14:15)
[2017-12-13] MEDS ORDERED: Thiamine (B-1) 100 MG in D5% in Water 50 ML IVPB ONE (14:15)
[2017-12-13] MEDS ORDERED: Folic Acid 1 MG in D5% in Water 50 ML IVPB ONE (14:15)
--- NOTE | 2017-12-13 14:23 | Emergency Department Note ---
Disposition Clinical Impression: Alcohol dependence with withdrawal with complication Alcohol withdrawal Qualifiers: Complication of substance-induced condition: with unspecified complication Qualified Code(s): F10.239 - Alcohol dependence with withdrawal, unspecified Alcohol dependence Qualifiers: Substance use status: unspecified alcohol-induced disorder Qualified Code(s): F10.29 - Alcohol dependence with unspecified alcohol-induced disorder Disposition: Admitted As Inpatient Condition: Fair Referrals: NONE,PCP [Primary Care Provider] - Forms: ED Satisfaction Letter Time of Disposition: 16:30 Alcohol HPI - General Chief Complaint: ED Alcohol Abuse Stated Complaint: ETOH withdrawal Time Seen by Provider: 12/13/17 14:01 Source: patient, EMS Limitations: no limitations Nursing Notes Reviewed: Yes Vital Signs Reviewed: Yes - History of Present Illness HPI Narrative: Mr Chen is a 62 yo M with known hx of alcohol abuse presents with alcohol withdrawal last drink yesterday morning. He normally drinks a 1/5th a day. He reports "passing out", and really bad shakes. Pt Subjective Complaint: alcohol withdrawal Last Drink: days (ago) (1.5) Alcohol Type: Liquor Amount of alcohol consumed: 1/5th a day Chronic Alcohol Use: Yes Previous Visits for Alcohol Intoxication?: Yes Recent Trauma: No Associated symptoms: Reports: nausea, tremors. Denies: vomiting, syncope, seizure, diaphoresis, abdominal pain - Related Data Home Medications Medication Instructions Recorded Confirmed Amlodipine Besylate 10 mg PO DAILY 12/06/17 12/13/17 Budesonide/Formoterol 160/4.5 2 puff IH BID 12/06/17 12/13/17 [Symbicort 160/4.5] Lipase/Protease/Amylase [Creon Dr 3 cap PO TIDWM 12/06/17 12/13/17 12,000 Units Capsule] Omeprazole [PriLOSEC] 20 mg PO DAILY 12/06/17 12/13/17 Pregabalin [Lyrica] 150 mg PO BID 12/06/17 12/13/17 Albuterol Sulfate [Albuterol 2 puff IH Q4H PRN 12/13/17 12/13/17 Inhaler] Cholecalciferol (D-3) [Vitamin D] 1,000 unit PO DAILY 12/13/17 12/13/17 Cyanocobalamin (Vitamin B-12) 500 mcg PO DAILY 12/13/17 12/13/17 [Vitamin B-12] Folic Acid 1 mg PO DAILY 12/13/17 12/13/17 L. Acidophilus/Pectin, Spicer 1 each PO BID 12/13/17 12/13/17 [Acidophilus Probiotic Capsule] Magnesium Oxide [Mag-Ox] 400 mg PO DAILY 12/13/17 12/13/17 SUMAtriptan succinate [Imitrex] 6 mg SQ Q2H PRN MDD 12 mg 12/13/17 12/13/17 Thiamine (B-1) [Vitamin B-1] 100 mg PO DAILY 12/13/17 12/13/17 Allergies Allergy/AdvReac Type Severity Reaction Status Date / Time Buspirone [From BuSpar] AdvReac See Verified 11/25/17 11:16 Comments tramadol AdvReac See Verified 11/25/17 11:16 Comments All systems ED: reviewed and negative except as stated. Review of Systems: As Per HPI Constitutional: Reports: weakness, other (patient is visibly shaking). Denies: fever, chills, weight change, night sweats Cardiovascular: Denies: chest pain, palpitations, dyspnea on exertion, orthopnea , edema, syncope, paroxysmal nocturnal dyspnea Respiratory: Denies: cough, dyspnea, wheezes, hemoptysis, stridor, sputum production Gastrointestinal: Denies: abdominal pain, nausea, vomiting, diarrhea, constipation, hematemesis, melena, hematochezia Musculoskeletal: Denies: back pain, neck pain, arthralgia, myalgia Neurological: Denies: headache, weakness, numbness, paresthesias, confusion, abnormal gait, vertigo Psychiatric: Denies: anxiety, depression, suicidal thoughts, homicidal thoughts , auditory hallucinations, visual hallucinations Past Medical History - Past Medical History Attestation: Yes The following information was validated with the patient. Medical history: Reports: COPD, GERD, hyperlipidemia, hypertension, migraine, myocardial infarction, other Surgical history: Reports: appendectomy, cholecystectomy, other Psychiatric history: Reports: depression, prior suicide attempt, previous psychiatric hospitalization - Social History Smoking Status: Current every day smoker Smokeless Tobacco Status: No Alcohol use: Reports: heavy, recent Drug use: Reports: none Physical Exam - General Limitations: no limitations General appearance: alert, anxious - Head Head exam: atraumatic, normocephalic, normal inspection - Eye Eye exam: Present: normal appearance, PERRL, EOMI. Absent: nystagmus - ENT ENT exam: normal exam, normal oropharynx, mucous membranes moist - Neck Neck exam: Present: normal inspection, full ROM, trachea midline - Chest Chest inspection: Present: normal inspection, symmetric chest wall rise - Respiratory Respiratory exam: Present: normal lung sounds bilaterally. Absent: respiratory distress, wheezes, stridor, accessory muscle use - Cardiovascular Cardiovascular exam: Present: normal rhythm, tachycardia, normal heart sounds. Absent: irregular rhythm, systolic murmur, diastolic murmur, clicks, JVD - Abdominal Exam Abdominal exam: Present: soft, Non-Tender. Absent: tenderness, distention, guarding, rebound, rigidity - Extremities Exam Extremities exam: Present: normal inspection, full ROM, normal capillary refill. Absent: tenderness, pedal edema Course Course Narrative: Patient will be started on Alcohol withdrawal precautions. Administered lorazepam. - Reevaluation(s) Reevaluation #1: Patient continues to shake but remains vitally stable. Will give 2 gm of loarzepam more. Time: 15:30 Vital Signs Temperature 98.0 F 12/13/17 13:58 Pulse Rate 91 12/13/17 13:58 Respiratory Rate 20 12/13/17 13:58 Blood Pressure 173/118 12/13/17 13:58 O2 Sat by Pulse Oximetry 98 12/13/17 13:58 Temperature 98.0 F 12/13/17 13:58 Pulse Rate 89 12/13/17 15:28 Respiratory Rate 18 12/13/17 15:28 Blood Pressure 103/83 12/13/17 15:28 O2 Sat by Pulse Oximetry 99 12/13/17 15:28 Oxygen Delivery Oxygen Delivery Room Air Alcohol - Lab Data Result diagrams: 12/13/17 14:23 12/13/17 14:23 Lab Results 12/13/17 12/13/17 12/13/17 Range/Units 14:23 14:23 14:23 WBC 4.4 (4.3-11.1) K/mcL RBC 4.96 (4.19-5.50) M/mcL Hgb 13.5 (12.9-16.9) g/dL Hct 42.2 (37.5-50.1) % MCV 85.1 (83.0-100.0) fL MCH 27.2 L (28.0-33.3) pg MCHC 32.0 (31.6-35.5) g/dL RDW 15.8 H (11.5-14.5) % Plt Count 175 (140-400) K/mcL MPV 10.6 (9.4-12.4) fL Immature Gran % 0.7 (0-4) % Seg Neutrophils % 56.0 % Lymphocytes % 27.7 % Monocytes % 11.3 % Eosinophils % 3.2 % Basophils % 1.1 % Neutrophils # 2.5 (1.6-8.9) K/mcL Lymphocytes # 1.2 (0.6-4.6) K/mcL Monocytes # 0.5 (0.0-1.3) K/mcL Eosinophils # 0.1 (0.0-0.6) K/mcL Basophils # 0.1 (0.0-0.2) K/mcL PT 11.6 (9.4-12.1) Seconds INR 1.1 Sodium 131 L (136-145) mEq/L Potassium 3.3 L (3.5-5.1) mEq/L Chloride 100 (98-107) mEq/L Carbon Dioxide 22 L (23-29) mEq/L BUN 10 (8-23) mg/dL Creatinine 0.80 (0.70-1.30) mg/dL Est GFR ( Amer) > 60 (> 60) Est GFR (Non-Af Amer) > 60 (> 60) BUN/Creatinine Ratio 13 (6-26) Glucose 99 (70-105) mg/dL Calculated Osmolality 271 L (280-300) Calcium 9.8 (8.6-10.3) mg/dL Magnesium 1.7 (1.6-2.6) mg/dL Total Bilirubin 0.6 (0.3-1.0) mg/dL AST 197 H (13-39) Units/L ALT 142 H (7-52) Units/L Alkaline Phosphatase 158 H (34-104) Units/L Serum Total Protein 8.9 (6.4-8.9) g/dL Albumin 4.7 (3.5-5.7) g/dL Globulin 4.2 H (2.4-3.5) g/dL Albumin/Globulin Ratio 1.1 (1.1-2.2) Lipase 21 (11-82) Units/L Ethyl Alcohol < 10 (0-10) mg/dL - Radiology Data Radiology results reviewed: Yes I reviewed the patient's radiology results. - EKG Data EKG attestation: Yes I reviewed and interpreted this EKG. EKG results narrative: EKG had a lot of artifacts. Interpretation: no acute changes, other Critical Care Time Critical Care Time: Yes Total Critical Care Time: 35 Attestation: Critical care time 35 minutes managing patient's alcohol withdrawal. Attestation Statement - Attestation Attestation: Patient was seen with resident physician. I reviewed the history, physical, assessment and plan, and agree with the findings. I also personally evaluated this patient and had [id number] time with this patient. 62-year-old male presents to emergency part with alcohol withdrawal. Patient ran out of money and alcohol approximately 1.5 days ago. Usually he drinks at least a fifth of hard alcohol per day. He is now visibly shaking and is concerned that he is withdrawing. Denies other symptoms. On exam signs he is tachycardic and hypertensive. ENT is unremarkable. Heart tachycardic. Lungs clear. Abdomen soft nontender. Extremities unremarkable. Neurologically visibly tremulous. No seizure activity. Psych anxious. Skin no obvious rashes. ED course will treat for alcohol withdrawal while in the emergency department including benzodiazepines and a full workup multivitamins as well. We will plan on admitting to the hospital for additional treatment. Critical care time 35 minutes. Agree with resident physician assessment and plan.
[2017-12-13] MEDS ORDERED: WATER IVPB ONE (14:30)
[2017-12-13] MEDS ORDERED: FOLIC ACID IVPB ONE (14:30)
[2017-12-13] MEDS ORDERED: D5 IVPB ONE (14:30)
[2017-12-13] MEDS ORDERED: Thiamine (B-1) 100 MG in D5% in Water 100 ML IVPB ONE (14:30)
[2017-12-13 14:33] LABS: Hematocrit 42.2 % (37.5-50.1); Hemoglobin 13.5 g/dL (12.9-16.9); Immature Granulocytes % 0.7 % (0-4); Lymphocytes % 27.7 %; Mean Corpuscular Hemoglobin 27.2 pg (28.0-33.3); Mean Corpuscular Volume 85.1 fL (83.0-100.0); Mean Platelet Volume 10.6 fL (9.4-12.4); Platelet Count 175 K/mcL (140-400); Red Blood Count 4.96 M/mcL (4.19-5.50); Red Cell Distribution Width 15.8 % (11.5-14.5)
[2017-12-13 14:34] LABS: Basophils # 0.1 K/mcL (0.0-0.2); Basophils % 1.1 %; Eosinophils # 0.1 K/mcL (0.0-0.6); Eosinophils % 3.2 %; Lymphocytes # 1.2 K/mcL (0.6-4.6); Monocytes # 0.5 K/mcL (0.0-1.3); Monocytes % 11.3 %; Neutrophils # 2.5 K/mcL (1.6-8.9)
[2017-12-13 14:39] LABS: INR 1.1; Prothrombin Time 11.6 Seconds (9.4-12.1)
[2017-12-13 14:50] LABS: Alanine Aminotransferase 142 Units/L (7-52); Albumin 4.7 g/dL (3.5-5.7); Albumin/Globulin Ratio 1.1 (1.1-2.2); Alkaline Phosphatase 158 Units/L (34-104); Aspartate Amino Transferase 197 Units/L (13-39); BUN/Creatinine Ratio 13 (6-26); Bilirubin,Total 0.6 mg/dL (0.3-1.0); Blood Urea Nitrogen 10 mg/dL (8-23); Calcium 9.8 mg/dL (8.6-10.3); Carbon Dioxide 22 mEq/L (23-29); Chloride 100 mEq/L (98-107); Globulin 4.2 g/dL (2.4-3.5); Glucose 99 mg/dL (70-105); Lipase 21 Units/L (11-82); Magnesium 1.7 mg/dL (1.6-2.6); Osmolality,Calculated 271 (280-300); Potassium 3.3 mEq/L (3.5-5.1); Sodium 131 mEq/L (136-145); Total Protein 8.9 g/dL (6.4-8.9); eGFR For Non-African Americans > 60 (> 60)
[2017-12-13 14:54] LABS: Ethanol < 10 mg/dL (0-10)
[2017-12-13] MEDS ORDERED: Naloxone 0.4 MG/ML INJ IVP PRN (16:20)
[2017-12-13] MEDS ORDERED: *HR* LORazepam 2 MG/ML VIAL IVP PRN (16:20)
[2017-12-13] MEDS ORDERED: Ondansetron 4 MG/2 ML VIAL IVP ONE (16:23)
--- NOTE | 2017-12-13 16:34 | Internal Med History&Physical ---
<Karyn Hansen J - Last Filed: 12/13/17 16:26> Date of Encounter: 12/13/17 Time of Encounter: 16:26 Assessment and Plan (1) Alcohol withdrawal Current visit: No Status: Acute has known history of alcoholism and well-known to hospitalist group and [facility]. Reports he is in withdrawal on arrival. Last drink 12/12/17 morning. Appears restless and tremulous on arrival and received IV Ativan in ED. Blood alcohol level less than 10. Remains tremulous on my exam. Monitor with CIWA. Continue banana bag, seizure precautions. Qualifiers: Complication of substance-induced condition: uncomplicated Qualified Code(s ): F10.230 - Alcohol dependence with withdrawal, uncomplicated (2) Transaminitis Current visit: No Status: Acute LFTs chronically elevated however appear to be slightly more elevated than baseline. Multifactorial with known hep C and alcohol abuse. With ABD pain on exam. ABD CT pending (3) Urinary retention Current visit: No Status: Acute Was recently discharged home with Boggs catheter secondary to urinary retention. Bladder scan PRN no void and or bladder scan for PVR. (4) COPD (chronic obstructive pulmonary disease) Current visit: No Status: Chronic per hx. No evidence of exacerbation. Cont home inhaler Qualifiers: COPD type: emphysema Emphysema type: unspecified Qualified Code(s): J43.9 - Emphysema, unspecified (5) Essential hypertension Current visit: No Status: Chronic per hx. BP uncontrolled on arrival. Secondary to acute alcohol withdrawal. BP improved after receiving IV Ativan. Continue home BP medication. Monitor BP and titrate PRN (6) DVT prophylaxis Current visit: No Status: Acute heparin Internal Medicine - H&P: HPI Chief complaint: alcohol w/d Admitted From: Home Plans for Post Hospital Care: Home History of present illness: Mr. Chen is a 62 year old male with PMH of COPD, GERD, HTN, HLD, FL, EtOH abuse who is well known to Hospital screw presented to [facility] on 12/13/2017 and alcohol withdrawal. He was found to be tremulous on arrival was given IV Ativan in ED. He was placed in observation status for further workup and treatment. Information obtained mostly from chart review as patient is quite uncomfortable and does not provide details. Says he is here for alcohol withdrawal, last drink yesterday morning. Says he ran out of money and cannot for more alcohol. He does complain of abdominal pain. No chest pain or shortness of breath. Past Med Surg Social Fam HX - Past Medical History Medical history: COPD, GERD, hyperlipidemia, hypertension, migraine, myocardial infarction, other Psychiatric history: depression, prior suicide attempt, previous psychiatric hospitalization - Past Surgical History Surgical History: appendectomy, cholecystectomy, other - Social History Smoking Status: Current every day smoker Smokeless Tobacco Status: No Alcohol use: heavy, recent Drug use: none - Family History Mother Adopted: No Family Member Ethnicity: Non- Living Status: Still Living Hx Family Cardiac Disorders: Yes (HTN) Hx Family Respiratory Disorders: No Hx Family Cancer: No Hx Family GI Disorders: No Hx Family Endocrine Disorder: No Hx Family Neuromuscular Disorders: No Hx Family Neurologic Disorders: Yes (neuropathy) Hx Family HEENT Disorders: No Hx Family Autoimmune Disorders: No Father Living Status: Internal Medicine - H&P: Meds Amlodipine Besylate 10 mg PO DAILY 12/06/17 [History] Budesonide/Formoterol 160/4.5 [Symbicort 160/4.5] 2 puff IH BID 12/06/17 [ History] Lipase/Protease/Amylase [Creon Dr 12,000 Units Capsule] 3 cap PO TIDWM 12/06/17 [History] Omeprazole [PriLOSEC] 20 mg PO DAILY 12/06/17 [History] Pregabalin [Lyrica] 150 mg PO BID 12/06/17 [History] Albuterol Sulfate [Albuterol Inhaler] 2 puff IH Q4H PRN 12/13/17 [History] Cholecalciferol (D-3) [Vitamin D] 1,000 unit PO DAILY 12/13/17 [History] Cyanocobalamin (Vitamin B-12) [Vitamin B-12] 500 mcg PO DAILY 12/13/17 [History] Folic Acid 1 mg PO DAILY 12/13/17 [History] L. Acidophilus/Pectin, [place] [Acidophilus Probiotic Capsule] 1 each PO BID [History] Magnesium Oxide [Mag-Ox] 400 mg PO DAILY 12/13/17 [History] SUMAtriptan succinate [Imitrex] 6 mg SQ Q2H PRN MDD 12 mg 12/13/17 [History] Thiamine (B-1) [Vitamin B-1] 100 mg PO DAILY 12/13/17 [History] 3 Allergy/AdvReac Type Severity Reaction Status Date / Time Buspirone [From BuSpar] AdvReac See Verified 11/25/17 11:16 Comments tramadol AdvReac See Verified 11/25/17 11:16 Comments All Systems PM: A 10-system review of systems was performed and is negative for pertinent findings except as documented above in the HPI. - Constitutional Constitutional: excessive sweating, no chills, no fever(s), no night sweats - EENT Eyes: no change in vision, no discharge, no pain, no photophobia Ears: no ear discharge, no ear pain, no tinnitus Nose, mouth and throat: no dysphagia, no nasal discharge, no neck pain, no sore throat - Cardiovascular Cardiovascular ROS IM: no chest pain, no diaphoresis, no dyspnea, no lightheadedness, no palpitations, no syncope - Respiratory Respiratory: no cough, no dyspnea, no wheezing, no excessive phlegm production - Gastrointestinal Gastrointestinal: abdominal pain, no diarrhea, no hematemesis, no hematochezia, no melena, no nausea, no vomiting - Musculoskeletal Musculoskeletal ROS IM: no numbness, no tingling - Integumentary Integumentary IM: no rash, no unusual bruising - Neurological Neurological ROS: lack of coordination, no confusion, no convulsions, no focal weakness, no numbness, no tingling, no tremor(s) - Psychiatric Psychiatric: anxiety - Hematologic/Lymphatic Hematologic/Lymphatic: no easy bruising - Constitutional Vitals: Temp Pulse Resp BP Pulse Ox 98.0 F 89 18 103/83 99 12/13/17 13:58 12/13/17 15:28 12/13/17 15:28 12/13/17 15:28 12/13/17 15:28 General appearance: Present: mild distress, A&O X 3 - Head Head exam: Present: atraumatic, normocephalic - Eye Eye exam: Present: PERRL, conjuntiva pink, sclera anicteric Pupils: Present: PERRL - Neck Neck exam general surgery: Present: supple, trachea midline. Absent: lymphadenopathy - Respiratory Respiratory exam: Present: CTAB. Absent: accessory muscle use, rales, rhonchi, wheezes - Cardiovascular Cardiovascular exam: Present: RRR, +S1, +S2, tachycardia. Absent: diastolic murmur, gallop, rubs, systolic murmur - GI/Abdominal GI/Abdominal exam: Present: normal bowel sounds, soft, tenderness, no peritoneal signs. Absent: distended - Extremities Exam Extremities exam: Present: warm, radial pulses palpable and symmetrical. Absent : calf tenderness, cyanotic, pedal edema - Neurological Exam Neurological exam: Present: CN II-XII intact, oriented X3, no focal deficits. Absent: pronater drift, facial droop, speech deficit - Skin Skin exam: Present: dry, intact Internal Med - H&P Results - Labs CBC & Chem 7: 12/13/17 14:23 12/13/17 14:23 <Seth Faoroq - Last Filed: 12/13/17 18:00> Date of Encounter: 12/13/17 Internal Medicine - H&P: HPI History of present illness: Mr. Chen is a 62 year old male All Systems PM: A 10-system review of systems was performed and is negative for pertinent findings except as documented above in the HPI. - Constitutional Vitals: Temp Pulse Resp BP Pulse Ox 98.7 F 99 17 192/107 97 12/13/17 16:56 12/13/17 16:56 12/13/17 16:56 12/13/17 16:56 12/13/17 16:56 Internal Med - H&P Results - Labs CBC & Chem 7: 12/13/17 14:23 12/13/17 14:23 - Impressions ITS Impressions Abdomen/Pelvis CT 12/13/17 16:22 IMPRESSION: Mild hepatosplenomegaly with diffuse hepatic steatosis. Postsurgical changes from prior right hemicolectomy again noted. No acute abnormality appreciated of the GI tract. Nonobstructing right renal calculus. D/ / 12/13/2017 17:02:18 Ramiro Crisostomo MD / [facility] Interpreting Provider: Ramiro Crisostomo MD - Attending Attestation I have personally performed a face to face evaluation on this patient. I have reviewed and agree with the care plan provided by PIPE INSULATOR HELPER Karyn Hansen. History and Exam by me shows: Mr. Chen is a 62 year old male with PMH of COPD, GERD, HTN, HLD, FL, EtOH abuse who is well known to our service presented to ER with Alcohol withdrawl sympotms. He states he had last alcohol y/d morning. Gen: A, A, O x 3.. Shivering, tremors + Chest: Diminished BS Heart: Mild sinus tachy a/p 1. Acute alcohol withdrawl IV hydration CIWA protocol will give Librium ERASMO
[2017-12-13] MEDS: *HR* LORazepam 2 MG/ML VIAL IVP PRN ×4 (16:54→23:35)
[2017-12-13] MEDS ORDERED: Ibuprofen 400 MG TABLET PO ONE (17:09)
[2017-12-13 18:33] LABS: Bilirubin,Urine Negative (Negative); Blood,Urine Negative (Negative); Clarity,Urine Clear (Clear); Color,Urine Yellow (Yellow); Glucose,Urine (UA) Normal (Normal); Ketones,Urine Negative (Negative); Leukocyte Esterase,Urine Small (Negative); Nitrite,Urine Negative (Negative); PH,Urine 7.5 pH Units (5.0-8.0); Protein,Urine Trace mg/dL (Neg-Trace); Specific Gravity,Urine 1.019 (1.010-1.025); Urobilinogen,Urine Normal (Normal)
[2017-12-13 18:36] LABS: Bacteria,Urine None Seen per hpf (None-Few); Hyaline Casts,Urine None Seen per lpf (None-Few); Squamous Epithelial Cell,Urine Few per lpf (None-Few); WBC,Urine 15-30 per hpf (0-3)
[2017-12-13] MEDS: *HR* Heparin 5,000 UNIT/ML VIAL SQ SCH (18:49)
[2017-12-13] MEDS: 0.9 % Sodium Chloride 1,000 ML IVC SCH (20:06)
[2017-12-13] MEDS: *HR* OxyCODONE Immed Rel 5 MG TABLET PO PRN (20:10)
[2017-12-13] MEDS: Pregabalin 75 MG CAPSULE PO SCH (21:22)
[2017-12-14] MEDS: Gabapentin 300 MG CAPSULE PO SCH ×3 (00:07→19:50)
[2017-12-14 00:57] LABS: Amphetamine Screen,Urine Negative ng/mL (Cutoff=1000); Barbiturate Screen,Urine Negative ng/mL (Cutoff=200); Benzodiazepines Screen,Urine Positive ng/mL (Cutoff=200); Cannabinoid Screen,Urine Negative ng/mL (Cutoff = 50); Cocaine Screen,Urine Negative ng/mL (Cutoff= 300); Opiate Screen,Urine Negative ng/mL (Cutoff=300); Phencyclidine Screen,Urine Negative ng/mL (Cutoff=25)
[2017-12-14] MEDS: *HR* OxyCODONE Immed Rel 5 MG TABLET PO PRN ×2 (02:35→13:01)
[2017-12-14] MEDS: *HR* LORazepam 2 MG/ML VIAL IVP PRN ×7 (02:41→23:35)
[2017-12-14] MEDS: *HR* Heparin 5,000 UNIT/ML VIAL SQ SCH ×2 (05:15→17:46)
[2017-12-14] MEDS: 0.9 % Sodium Chloride 1,000 ML IVC SCH (05:16)
[2017-12-14 05:34] LABS: Alanine Aminotransferase 104 Units/L (7-52); Albumin/Globulin Ratio 1.1 (1.1-2.2); Alkaline Phosphatase 128 Units/L (34-104); Aspartate Amino Transferase 131 Units/L (13-39); BUN/Creatinine Ratio 16 (6-26); Bilirubin,Total 0.6 mg/dL (0.3-1.0); Blood Urea Nitrogen 13 mg/dL (8-23); Carbon Dioxide 23 mEq/L (23-29); Chloride 105 mEq/L (98-107); Globulin 3.6 g/dL (2.4-3.5); Glucose 93 mg/dL (70-105); Osmolality,Calculated 280 (280-300); Potassium 3.5 mEq/L (3.5-5.1); Sodium 135 mEq/L (136-145); Total Protein 7.6 g/dL (6.4-8.9); eGFR For Non-African Americans > 60 (> 60)
[2017-12-14 05:54] LABS: Hematocrit 40.2 % (37.5-50.1); Hemoglobin 12.5 g/dL (12.9-16.9); Mean Corpuscular HGB Conc 31.1 g/dL (31.6-35.5); Mean Corpuscular Hemoglobin 26.5 pg (28.0-33.3); Mean Corpuscular Volume 85.4 fL (83.0-100.0); Mean Platelet Volume 11.3 fL (9.4-12.4); Platelet Count 171 K/mcL (140-400); Red Blood Count 4.71 M/mcL (4.19-5.50)
[2017-12-14] MEDS: amLODIPine 5 MG TABLET PO SCH (07:51)
[2017-12-14] MEDS: Pregabalin 75 MG CAPSULE PO SCH ×2 (07:51→19:49)
[2017-12-14] MEDS: Magnesium Oxide 400 MG TABLET PO SCH (07:51)
[2017-12-14] MEDS: Thiamine (B-1) 100 MG TABLET PO SCH (07:51)
[2017-12-14] MEDS: Folic Acid 1 MG TABLET PO SCH (07:52)
[2017-12-14] MEDS: Nicotine 21 MG PATCH.TD24 TD SCH (17:47)
--- NOTE | 2017-12-14 18:29 | Internal Med Progress Note ---
Date of Encounter: 12/14/17 Time of Encounter: 18:26 - Assessment and plan (1) Alcohol withdrawal Current Visit: Yes Status: Acute Assessment and plan: Patient has been on CIWA protocol. Getting Ativan. Also on Librium. No worsening symptoms or signs at this time. Closely monitor for symptoms of DT . He wants to consider alcohol rehabilitation. Qualifiers: Complication of substance-induced condition: uncomplicated Qualified Code(s ): F10.230 - Alcohol dependence with withdrawal, uncomplicated (2) Anemia Current Visit: Yes Status: Chronic Assessment and plan: Has a history of anemia. Likely associated with alcoholism. Hemoglobin is stable. Qualifiers: Anemia type: other cause Other causes of anemia: chronic disease, other Qualified Code(s): D63.8 - Anemia in other chronic diseases classified elsewhere (3) History of substance abuse Current Visit: No Status: Chronic Assessment and plan: Has a history of polysubstance abuse. Has used marijuana. And stated that he has not used alcohol for 3 days. But he has been repeatedly coming with alcohol withdrawal syndrome. Has been noncompliant. (4) Hepatitis C Current Visit: No Status: Chronic Assessment and plan: He has chronic hepatitis C. He is liver enzymes are elevated. Also possibly he has alcoholic hepatitis as well. He will benefit from follow up with lead developer as an outpatient after discharge. Qualifiers: Viral hepatitis chronicity: chronic Hepatic coma status: without hepatic coma Qualified Code(s): B18.2 - Chronic viral hepatitis C - Subjective Interval history: He was presented with alcohol withdrawal syndrome. He reported that he did not drink alcohol for 3 days. He complains of anxiety-like feelings and tremors. Stated that he is weak. He has been on CIWA protocol. Also on Librium. With current treatment he is feeling better. He wants to see whether he can go to alcohol detox. He has had multiple admissions with alcohol withdrawal syndrome in the past. He lives alone. He is noncompliant with medical follow-up or stopping drinking alcohol. He has chronic hepatitis C and alcoholic hepatitis as well. - Constitutional Vitals: Temp Pulse Resp BP Pulse Ox 97.8 F 91 18 160/89 98 12/14/17 15:28 12/14/17 15:28 12/14/17 15:28 12/14/17 15:28 12/14/17 15:28 General appearance: Present: mild distress, A&O X 3 Exam: Middle-age male. Normal respiratory distress. No dyspnea orthopnea at rest. Has some mild pallor. No jaundice. No cyanosis. Neck without any cervical or supraclavicular lymphadenopathy. CVS, S1-S2 regular. No murmur. Respiratory system, decreased entry bilaterally no crepitations or rhonchi. Abdomen obese multiple scars present nontender. Extremities no pedal edema. No calf asymmetry or tenderness. Hands, no clubbing. Mild tremor. RUBBER PROCESS HAND, no confusion. No focal neurological deficit. Internal Medicine: Result - Labs CBC & Chem 7: 12/14/17 04:46 12/14/17 04:46 - ABG Interpretation ABG results: PT/INR, D-dimer PT 11.6 Seconds (9.4-12.1) 12/13/17 14:23 Consult Discharge Plan - Plan Referrals: NONE,PCP [Primary Care Provider] -
[2017-12-15] MEDS: *HR* LORazepam 2 MG/ML VIAL IVP PRN (01:45)
[2017-12-15] MEDS: *HR* OxyCODONE Immed Rel 5 MG TABLET PO PRN (03:48)
[2017-12-15] MEDS: *HR* Heparin 5,000 UNIT/ML VIAL SQ SCH (05:35)
[2017-12-15 07:35] VITALS: BP 156/93
[2017-12-15] MEDS: Thiamine (B-1) 100 MG TABLET PO SCH (07:50)
[2017-12-15] MEDS: Pregabalin 75 MG CAPSULE PO SCH (07:51)
[2017-12-15] MEDS: Magnesium Oxide 400 MG TABLET PO SCH (07:52)
[2017-12-15] MEDS: Gabapentin 300 MG CAPSULE PO SCH (07:52)
[2017-12-15] MEDS: amLODIPine 5 MG TABLET PO SCH (07:53)
[2017-12-15] MEDS: Nicotine 21 MG PATCH.TD24 TD SCH (07:53)
[2017-12-15] MEDS: Folic Acid 1 MG TABLET PO SCH (07:53)
[2017-12-15] MEDS ORDERED: hydrOXYzine pamoate 25 MG CAPSULE PO ONE (09:48)
--- NOTE | 2017-12-15 09:51 | Discharge Summary ---
- NOTES TO OUTPATIENT PROVIDER Notes to Outpatient Provider: Pt has no PCP. Date of Encounter: 12/15/17 Time of Encounter: 09:35 - Discharge Diagnosis (1) Alcohol withdrawal Priority: Primary Status: Acute Comments: She reports that he was in withdrawal on arrival and admission to the hospital. Last drink was 12/12/17 in the morning. Patient apparently did not score for CIWA protocol this morning and immediately said that he be discharged immediately. Patient called rapid response to his room stating that the nurse refused to give him any of his medications. He is alert, calm, cooperative, with very mild hand tremors. His vital signs are within normal limits minus some mild hypertension which appears to be normal for him. I have offered him hydroxyzine 50 mg by mouth once prior to discharge. He states that he is ready to go home and his grandmother will be picking him up in 2 hours. Qualifiers: Complication of substance-induced condition: uncomplicated Qualified Code(s ): F10.230 - Alcohol dependence with withdrawal, uncomplicated (2) COPD (chronic obstructive pulmonary disease) Priority: Secondary Status: Chronic Comments: Patient with faint rhonchi heard in posterior bases, clears with cough. No acute exacerbation at this time. He is not requiring supplemental oxygen. Continue albuterol and Symbicort at home. Qualifiers: COPD type: emphysema Emphysema type: unspecified Qualified Code(s): J43.9 - Emphysema, unspecified (3) Essential hypertension Priority: Secondary Status: Chronic Comments: Chronic. Continue home medications. (4) Transaminitis Priority: Secondary Status: Chronic Comments: Chronically elevated transaminases due to chronic alcoholism. Levels improving. AST 131, AST 104. To try to avoid alcohol, patient does not have PCP. Will try to establish with PCP in his area. (5) Hepatitis C Priority: Secondary Status: Chronic Comments: Chronic hepatitis C. Transaminases elevated, most likely due to alcoholic hepatitis. Patient has no primary care provider and could benefit with follow- up from barmaid, though I doubt compliance with attending appointments. Qualifiers: Viral hepatitis chronicity: chronic Hepatic coma status: without hepatic coma Qualified Code(s): B18.2 - Chronic viral hepatitis C (6) Substance abuse Priority: Secondary Status: Chronic Comments: History of polysubstance abuse. Patient is hospitalized usually monthly for alcohol withdrawal towards the end of every month. Patient reports that he has been in multiple rehabs, counseling, twelve-step programs without any change in his situation. He states he does not want to seek treatment this time and that he feels that these are all useless. Patient has been given multiple list of resources and last admission 2 weeks ago, patient was going to go to [place] for treatment. He still has all of the contact information and is able [facility] if he needs [facility]. Hospital course: Mr. Chen is a 62 year old male with past medical history of hepatitis C, substance abuse, anemia, chronic withdrawal, COPD. Patient admitted for alcohol withdrawal. He reports that he had a drink for 3 days prior to admission. She is admitted frequently for same complaints, mostly at the end of every month. Patient's labs are stable, vitals are stable and within his normal limits. Patient is not scoring for CIWA protocol today and demanded to be discharged. He called a rapid response to his room due to the fact that nurse gave him none of his medications. Patient has a ride home and was given hydroxyzine 50 mg by mouth 1 prior to discharge due to anxiety. Patient is stable and appropriate for discharge. Discharge discussed with: patient - Time Spent with Patient Total time spent providing and/or coordinating discharge services: Less than 30 minutes - Discharge Medications Home Medications: Amlodipine Besylate 10 mg PO DAILY 12/06/17 [History] Budesonide/Formoterol 160/4.5 [Symbicort 160/4.5] 2 puff IH BID 12/06/17 [ History] Lipase/Protease/Amylase [Ananya Kern 12,000 Units Capsule] 3 cap PO TIDWM 12/06/17 [History] Omeprazole [PriLOSEC] 20 mg PO DAILY 12/06/17 [History] Pregabalin [Lyrica] 150 mg PO BID 12/06/17 [History] Albuterol Sulfate [Albuterol Inhaler] 2 puff IH Q4H PRN 12/13/17 [History] Cholecalciferol (D-3) [Vitamin D] 1,000 unit PO DAILY 12/13/17 [History] Cyanocobalamin (Vitamin B-12) [Vitamin B-12] 500 mcg PO DAILY 12/13/17 [History] Folic Acid 1 mg PO DAILY 12/13/17 [History] L. Acidophilus/Pectin, [place] [Acidophilus Probiotic Capsule] 1 each PO BID [History] Magnesium Oxide [Mag-Ox] 400 mg PO DAILY 12/13/17 [History] SUMAtriptan succinate [Imitrex] 6 mg SQ Q2H PRN MDD 12 mg 12/13/17 [History] Thiamine (B-1) [Vitamin B-1] 100 mg PO DAILY 12/13/17 [History] Allergies/Adverse Reactions: 3 Allergy/AdvReac Type Severity Reaction Status Date / Time Buspirone [From BuSpar] AdvReac See Verified 11/25/17 11:16 Comments tramadol AdvReac See Verified 11/25/17 11:16 Comments Date of admission: 12/14/17 15:30 Primary care physician: PCP NONE Discharging clinician: Bekah Johnson Anticipated date of discharge: 12/15/17 - Constitutional Vitals: Temp Pulse Resp BP Pulse Ox 98.1 F 88 18 156/93 98 12/15/17 07:33 12/15/17 07:33 12/15/17 07:33 12/15/17 07:33 12/15/17 07:33 General appearance: Present: mild distress, A&O X 3, pleasant, answers questions appropriately - Head Head exam: Present: atraumatic, normal inspection, normocephalic - Eye Eye exam: Present: normal appearance, conjuntiva pink, sclera anicteric - Neck Neck exam general surgery: Present: supple, trachea midline. Absent: lymphadenopathy, tenderness - Respiratory Respiratory exam: Present: CTAB, rhonchi. Absent: accessory muscle use, rales, respiratory distress Additional comments: Cleared with cough. [place] in bilateral bases. - Cardiovascular Cardiovascular exam: Present: RRR, +S1, +S2. Absent: diastolic murmur, gallop, rubs, systolic murmur - GI/Abdominal GI/Abdominal exam: Present: normal bowel sounds, soft. Absent: distended, hepatomegaly, tenderness - Extremities Exam Extremities exam: Present: normal capillary refill, normal inspection, warm, radial pulses palpable and symmetrical. Absent: calf tenderness, cyanotic, pedal edema, tenderness - Neurological Exam Neurological exam: Present: alert, oriented X3, no focal deficits. Absent: facial droop, speech deficit - Skin Skin exam: Present: dry, intact, normal color, warm. Absent: rash - Patient Status Disposition: Home, Self-Care Condition: Good Functional capacity at discharge: independent ambulation Overall status at discharge: patient is back to baseline - Discharge Instructions Follow Up With: NONE,PCP [Primary Care Provider] - Additional Instructions: We are attempting to get you established with a PCP, it would be good to follow up for your liver and for your COPD. Take your normal medications as directed. Please try to stop drinking. REturn to the ER as needed for any other problems or concerns. Return to your normal diet as tolerated. Please refer to your prior resources that you have been given to [facility] if you should decide to enter a treatment program. - Diet and Activity Activity: increase activity as tolerated Diet: advance to your usual diet
--- NOTE | 2017-12-15 18:36 | Electrocardiograph Report ---
[address] [place] [address] Test Date: 2017-12-13 Pat Name: Lauri Chen Department: 103 Room: 3B32 Gender: M Acid Cutter: : 1955 Requested By: Marco Hyatt Order Number: [id number] Reading MD: Kenyon Dinero Measurements Intervals [place] Rate: 90 P: NE: 0 QRS: -17 QRSD: 78 T: 38 QT: 359 QTc: 407 Interpretive Statements ATRIAL FLUTTER/TACHYCARDIA INFERIOR MYOCARDIAL INFARCTION, PROBABLY OLD Electronically Signed On 12-15-2017 18:34:35 EST by Kenyon Dinero
== END 2017-12-15 10:41 | disposition home or self-care (01) | DRG 897 ==
LOC: 3BNU 13:55 → EMEROO 13:55 → 3BNU 16:33
PROVIDERS: ADMIT Registered Nurse; ATTEND Registered Nurse

== ENCOUNTER 2017-12-21 02:04 | Inpatient (IN) ==
[2017-12-21 02:39] LABS: Bilirubin,Urine Negative (Negative); Blood,Urine Negative (Negative); Clarity,Urine Clear (Clear); Color,Urine Yellow (Yellow); Glucose,Urine (UA) Normal (Normal); Ketones,Urine Negative (Negative); Leukocyte Esterase,Urine Negative (Negative); Nitrite,Urine Negative (Negative); Protein,Urine Negative (Neg-Trace); Specific Gravity,Urine 1.012 (1.010-1.025); Urobilinogen,Urine Normal (Normal)
[2017-12-21 02:44] LABS: Amphetamine Screen,Urine Negative ng/mL (Cutoff=1000); Barbiturate Screen,Urine Negative ng/mL (Cutoff=200); Benzodiazepines Screen,Urine Positive ng/mL (Cutoff=200); Cannabinoid Screen,Urine Negative ng/mL (Cutoff = 50); Cocaine Screen,Urine Negative ng/mL (Cutoff= 300); Opiate Screen,Urine Negative ng/mL (Cutoff=300); Phencyclidine Screen,Urine Negative ng/mL (Cutoff=25)
--- NOTE | 2017-12-21 02:59 | Emergency Department Note ---
Disposition Clinical Impression: Suicidal ideation, Abrasion of left wrist Disposition: Still a Patient Condition: Good Referrals: NONE,PCP [Primary Care Provider] - Forms: ED Satisfaction Letter Time of Disposition: 07:32 Psych HPI - General Chief Complaint: ED Psychiatric Symptoms Stated Complaint: psych eval Time Seen by Provider: 12/21/17 02:07 Source: patient Nursing Notes Reviewed: Yes Vital Signs Reviewed: Yes - History of Present Illness HPI Narrative: 62-year-old male history of psychiatric illness depression bipolar presents after episode of drinking and states he tried to slice his left wrist patient's had multiple suicidal times the past. Patient denies homicidal ideation auditory or visual hallucinations. Denies chest pain abdominal pain towards breath fever chills. Pt complaint: suicidal ideation Onset (ago): minute(s) Duration: constant History of similar episodes: No Improves with: none Worsens with: none Alleged intoxication: Yes Associated Psychiatric Symptoms: depression, suicidal ideation Associated symptoms: Reports: denies other symptoms Treatments prior to arrival: none Self harm or harm to others: admits thoughts of self harm - Related Data Home Medications Medication Instructions Recorded Confirmed Amlodipine Besylate 10 mg PO DAILY 12/06/17 12/13/17 Budesonide/Formoterol 160/4.5 2 puff IH BID 12/06/17 12/13/17 [Symbicort 160/4.5] Lipase/Protease/Amylase [Creon Dr 3 cap PO TIDWM 12/06/17 12/13/17 12,000 Units Capsule] Omeprazole [PriLOSEC] 20 mg PO DAILY 12/06/17 12/13/17 Pregabalin [Lyrica] 150 mg PO BID 12/06/17 12/13/17 Albuterol Sulfate [Albuterol 2 puff IH Q4H PRN 12/13/17 12/13/17 Inhaler] Cholecalciferol (D-3) [Vitamin D] 1,000 unit PO DAILY 12/13/17 12/13/17 Cyanocobalamin (Vitamin B-12) 500 mcg PO DAILY 12/13/17 12/13/17 [Vitamin B-12] Folic Acid 1 mg PO DAILY 12/13/17 12/13/17 L. Acidophilus/Pectin, [place] 1 each PO BID 12/13/17 12/13/17 [Acidophilus Probiotic Capsule] Magnesium Oxide [Mag-Ox] 400 mg PO DAILY 12/13/17 12/13/17 SUMAtriptan succinate [Imitrex] 6 mg SQ Q2H PRN MDD 12 mg 12/13/17 12/13/17 Thiamine (B-1) [Vitamin B-1] 100 mg PO DAILY 12/13/17 12/13/17 Allergies Allergy/AdvReac Type Severity Reaction Status Date / Time Buspirone [From BuSpar] AdvReac See Verified 11/25/17 11:16 Comments tramadol AdvReac See Verified 11/25/17 11:16 Comments All systems ED: reviewed and negative except as stated. Review of Systems: As Per HPI Constitutional: Denies: fever, chills Eyes: Denies: eye pain ENT ED: Denies: ear pain Cardiovascular: Denies: chest pain Respiratory: Denies: cough Gastrointestinal: Denies: abdominal pain Genitourinary: Denies: urgency Musculoskeletal: Denies: back pain Integumentary: Denies: rash Neurological: Denies: headache Psychiatric: Reports: as per HPI, anxiety, suicidal thoughts. Denies: homicidal thoughts Past Medical History - Past Medical History Attestation: Yes The following information was validated with the patient. Source: patient Medical history: Reports: COPD, GERD, hyperlipidemia, hypertension, migraine, myocardial infarction, other Surgical history: Reports: appendectomy, cholecystectomy, other Psychiatric history: Reports: depression, prior suicide attempt, previous psychiatric hospitalization - Social History Smoking Status: Current every day smoker Smokeless Tobacco Status: No Alcohol use: Reports: heavy, recent Drug use: Reports: none Physical Exam Constitutional: NAD, vital signs reviewed and wnl Eyes: PERRLA, sclera anicteric ENT & Mouth: MMM Neck: normal inspection, neck is supple Resp: CTA bilaterally, no resp distress CV: RRR, no m/g/r GI: normal inspection, soft, no guarding or rigidity Neuro: A&O3, CNII-XII grossly intact, DALE Psych: +SI Skin: left wrist abrasion - General Limitations: no limitations General appearance: alert, in no apparent distress Course Course Narrative: Patient is a 62-year-old male with depression and suicidal ideation and attempt with left wrist abrasion to evidence of laceration was cleaned with no gaping patient up-to-date on tetanus shot will be medically cleared after labwork CBC BMP ethanol salicylates and drug screen. - Reevaluation(s) Reevaluation #1: Patient had an alcohol 152 recheck alcohol at 8:00 care was signed out to Dr. Nura Christiansen pending alcohol level I suspect the patient will be a evaluate by one A for placement required some ativan for sedation. Time: 07:31 Vital Signs Temperature 97.9 F 12/21/17 02:06 Pulse Rate 91 12/21/17 02:06 Respiratory Rate 18 12/21/17 02:06 Blood Pressure 167/95 12/21/17 02:06 O2 Sat by Pulse Oximetry 97 12/21/17 02:06 Temperature 97.9 F 12/21/17 02:06 Pulse Rate 81 12/21/17 05:42 Respiratory Rate 16 12/21/17 05:42 Blood Pressure 150/91 12/21/17 05:42 O2 Sat by Pulse Oximetry 95 12/21/17 05:42 Oxygen Delivery Oxygen Delivery Room Air Psych - Lab Data Result diagrams: 12/21/17 03:21 12/21/17 03:21 Lab Results 12/21/17 12/21/17 12/21/17 Range/Units 02:20 02:20 03:21 WBC 4.5 (4.3-11.1) K/mcL RBC 4.63 (4.19-5.50) M/mcL Hgb 12.6 L (12.9-16.9) g/dL Hct 40.7 (37.5-50.1) % MCV 87.9 (83.0-100.0) fL MCH 27.2 L (28.0-33.3) pg MCHC 31.0 L (31.6-35.5) g/dL RDW 16.5 H (11.5-14.5) % Plt Count 182 (140-400) K/mcL MPV 10.2 (9.4-12.4) fL Immature Gran % 0.9 (0-4) % Seg Neutrophils % 53.0 % Lymphocytes % 33.8 % Monocytes % 7.9 % Eosinophils % 4.0 % Basophils % 0.4 % Neutrophils # 2.4 (1.6-8.9) K/mcL Lymphocytes # 1.5 (0.6-4.6) K/mcL Monocytes # 0.4 (0.0-1.3) K/mcL Eosinophils # 0.2 (0.0-0.6) K/mcL Basophils # 0.0 (0.0-0.2) K/mcL Nucleated RBCs/100 WBC 0.4 H (0) /100 WBC Sodium (136-145) mEq/L Potassium (3.5-5.1) mEq/L Chloride (98-107) mEq/L Carbon Dioxide (23-29) mEq/L BUN (8-23) mg/dL Creatinine (0.70-1.30) mg/dL Est GFR ( Amer) (> 60) Est GFR (Non-Af Amer) (> 60) BUN/Creatinine Ratio (6-26) Glucose (70-105) mg/dL Calculated Osmolality (280-300) Calcium (8.6-10.3) mg/dL Urine Color Yellow (Yellow) Urine Clarity Clear (Clear) Urine pH 7.0 (5.0-8.0) pH Units Ur Specific [place] 1.012 (1.010-1.025) Urine Protein Negative (Neg-Trace) mg/dL Urine Glucose (UA) Normal (Normal) mg/dL Urine Ketones Negative (Negative) mg/dL Urine Blood Negative (Negative) Urine Nitrite Negative (Negative) Urine Bilirubin Negative (Negative) Urine Urobilinogen Normal (Normal) mg/dL Ur Leukocyte Esterase Negative (Negative) Salicylates (15.0-30.0) mg/dL Urine Opiates Screen Negative (Lhshdx=590) ng/mL Acetaminophen (10-30) mcg/mL Ur Barbiturates Screen Negative (Timiye=193) ng/mL Ur Phencyclidine Scrn Negative (Cutoff=25) ng/mL Ur Amphetamines Screen Negative (Gumoum=6719) ng/mL U Benzodiazepines Scrn Positive H (Wwiesa=466) ng/mL Urine Cocaine Screen Negative (Cutoff= 300) ng/mL U Marijuana (THC) Screen Negative (Cutoff = 50) ng/mL Ethyl Alcohol (0-10) mg/dL 12/21/17 Range/Units 03:21 WBC (4.3-11.1) K/mcL RBC (4.19-5.50) M/mcL Hgb (12.9-16.9) g/dL Hct (37.5-50.1) % MCV (83.0-100.0) fL MCH (28.0-33.3) pg MCHC (31.6-35.5) g/dL RDW (11.5-14.5) % Plt Count (140-400) K/mcL MPV (9.4-12.4) fL Immature Gran % (0-4) % Seg Neutrophils % % Lymphocytes % % Monocytes % % Eosinophils % % Basophils % % Neutrophils # (1.6-8.9) K/mcL Lymphocytes # (0.6-4.6) K/mcL Monocytes # (0.0-1.3) K/mcL Eosinophils # (0.0-0.6) K/mcL Basophils # (0.0-0.2) K/mcL Nucleated RBCs/100 WBC (0) /100 WBC Sodium 140 (136-145) mEq/L Potassium 3.3 L (3.5-5.1) mEq/L Chloride 108 H (98-107) mEq/L Carbon Dioxide 22 L (23-29) mEq/L BUN 8 (8-23) mg/dL Creatinine 0.84 (0.70-1.30) mg/dL Est GFR ( Amer) > 60 (> 60) Est GFR (Non-Af Amer) > 60 (> 60) BUN/Creatinine Ratio 10 (6-26) Glucose 113 H (70-105) mg/dL Calculated Osmolality 289 (280-300) Calcium 9.4 (8.6-10.3) mg/dL Urine Color (Yellow) Urine Clarity (Clear) Urine pH (5.0-8.0) pH Units Ur Specific [place] (1.010-1.025) Urine Protein (Neg-Trace) mg/dL Urine Glucose (UA) (Normal) mg/dL Urine Ketones (Negative) mg/dL Urine Blood (Negative) Urine Nitrite (Negative) Urine Bilirubin (Negative) Urine Urobilinogen (Normal) mg/dL Ur Leukocyte Esterase (Negative) Salicylates < 5.0 L (15.0-30.0) mg/dL Urine Opiates Screen (Bwwaqi=624) ng/mL Acetaminophen < 1.0 L (10-30) mcg/mL Ur Barbiturates Screen (Tceskq=799) ng/mL Ur Phencyclidine Scrn (Cutoff=25) ng/mL Ur Amphetamines Screen (Gzrije=5562) ng/mL U Benzodiazepines Scrn (Xbbsvg=651) ng/mL Urine Cocaine Screen (Cutoff= 300) ng/mL U Marijuana (THC) Screen (Cutoff = 50) ng/mL Ethyl Alcohol 152 H (0-10) mg/dL Psychiatric Medical Clearance - Medical Clearance Checklist Does the patient have a NEW psychiatric condition?: Yes Any abnormalities indicating possible medical illness?: No Any history of medical issues?: No Medical History: Alcohol intoxication (Resolved) Altered mental state (Resolved) Opioid intoxication (Acute) Microcytic anemia (Chronic) Iron deficiency anemia (Chronic) Respiratory acidosis (Resolved) Alcohol withdrawal (Acute) Chest pain (Acute) Psychiatric disorder (Chronic) Gastritis and duodenitis (Acute) Mood disorder (Chronic) Accelerated essential hypertension (Acute) Altered mental status (Acute) History of alcohol abuse (Chronic) Anemia (Chronic) Acute kidney injury (Resolved) Marijuana abuse (Acute) History of substance abuse (Chronic) Acute respiratory failure (Acute) Overdose (Acute) Rhabdomyolysis (Acute) Encephalopathy (Acute) Tracheobronchitis (Acute) Schizophrenia (Chronic) Bipolar disorder, unspecified (Chronic) Injury of left foot including toes (Acute) Fracture of left great toe (Acute) HTN (hypertension) (Chronic) Anxiety disorder (Chronic) Infected nailbed of toe (Acute) Suicidal ideation (Resolved) Alcohol intoxication (Resolved) Toxic effect of alcohol, intentional self-harm (Acute) Adjustment reaction with anxiety and depression (Acute) Alcoholic encephalopathy (Chronic) Chronic back pain (Chronic) Failure to thrive syndrome, adult (Chronic) Hypotension (Acute) Schizoaffective disorder, bipolar type without good prognostic features (Chronic ) Perforated abdominal viscus (Acute) Sepsis (Acute) Pancytopenia (Acute) Hypoxemia (Resolved) Encephalopathy (Acute) Hypokalemia (Acute) Protein malnutrition (Chronic) Substance abuse (Chronic) Physical deconditioning (Chronic) Pancreatic insufficiency (Chronic) Pancreatic insufficiency (Chronic) Chest pain (Acute) Acute kidney injury (Resolved) Chest pain (Acute) Nausea & vomiting (Resolved) Hand paresthesia (Acute) Drug abuse (Chronic) Tobacco abuse (Chronic) Paresthesias (Chronic) Microcytic hypochromic anemia (Acute) HTN (hypertension) (Chronic) Withdrawal symptoms, alcohol (Acute) Hypertension (Chronic) DVT prophylaxis (Acute) Fall (Acute) Encephalopathy acute (Acute) SHELLEY (acute kidney injury) (Resolved) NSTEMI (non-ST elevated myocardial infarction) (Acute) Encephalopathy chronic (Acute) Hypokalemia (Acute) Elevated troponin (Acute) COPD (chronic obstructive pulmonary disease) (Chronic) Depression (Chronic) Alcohol withdrawal (Acute) SHELLEY (acute kidney injury) (Acute) Coronary artery disease (Chronic) Essential hypertension (Chronic) Alcohol dependence (Chronic) Combative behavior (Acute) Abdominal pain (Acute) Alcohol intoxication (Acute) Alcohol dependence (Chronic) Bipolar disorder in remission (Chronic) DVT prophylaxis (Acute) Toxic metabolic encephalopathy (Acute) Delirium due to conditions classified elsewhere (Acute) Alcohol abuse with alcohol-induced disorder (Chronic) Alcohol dependence with acute alcoholic intoxication and delirium (Acute) Alcohol dependence with acute alcoholic intoxication with complication (Acute) Morbid obesity with BMI of 40.0-44.9, adult (Chronic) Angina at rest (Acute) Alcohol withdrawal (Acute) Tremor (Acute) Acute, mixed level of activity, alcohol withdrawal delirium (Acute) Chest pain, rule out acute myocardial infarction (Acute) Chest pain with low risk of acute coronary syndrome (Acute) Acute chest wall pain (Acute) Accelerated secondary hypertension (Acute) DTs (delirium tremens) (Acute) Chronic headaches (Chronic) Medication care plan discussed with patient (Acute) Sepsis (Acute) Hepatitis C (Chronic) Atrial fibrillation (Acute) Elevated WBCs (Acute) Pleural effusion (Acute) Sepsis (Resolved) Parapneumonic effusion (Acute) ETOH abuse (Acute) COPD (chronic obstructive pulmonary disease) (Chronic) Pancreatic insufficiency (Chronic) Coronary artery disease (Acute) DVT prophylaxis (Acute) Leukocytosis (Acute) Bandemia (Resolved) Metabolic encephalopathy (Acute) Hypoalbuminemia (Acute) Anemia (Chronic) Chest tube in place (Resolved) Need for management of chest tube (Acute) Hematoma (Acute) Fatty liver (Acute) Hypoalbuminemia (Chronic) Acute hypoxemic respiratory failure (Resolved) Empyema lung (Acute) Subcutaneous emphysema (Resolved) Pain (Chronic) Atypical pneumonia (Acute) Lung abscess (Chronic) Abnormal CT of the chest (Acute) ETOH abuse (Acute) Metabolic acidosis (Acute) Diarrhea (Acute) Abdominal pain (Acute) Pancreatitis, alcoholic, acute (Acute) Chest pain (Acute) Alcohol intoxication (Acute) Pancreatitis (Chronic) Hypertension (Chronic) Acute alcohol intoxication (Acute) Lung mass (Acute) Atrial fibrillation and flutter (Acute) Atrial flutter with rapid ventricular response (Acute) Atrial fib/flutter, transient (Acute) Alcohol withdrawal delirium (Acute) Atypical chest pain (Acute) Physical deconditioning (Acute) Alcohol intoxication (Acute) Chronic schizophrenia (Acute) Suicidal ideation (Acute) CAP (community acquired pneumonia) (Acute) Bipolar disorder (Chronic) Rib pain on right side (Acute) Bipolar 1 disorder, depressed, moderate (Acute) Alcohol use disorder (Acute) Hypertension (Chronic) Alcohol withdrawal (Resolved) Alcohol withdrawal (Resolved) Chest pain (Acute) DVT prophylaxis (Acute) COPD (chronic obstructive pulmonary disease) (Chronic) Fall (Acute) Hypomagnesemia (Acute) Hypophosphatemia (Acute) DVT prophylaxis (Acute) Transaminitis (Chronic) Gastritis (Resolved) Gastroenteritis (Resolved) Alcoholic hepatitis (Acute) Chronic leukopenia (Acute) Acute diastolic (congestive) heart failure (Acute) Diverticulitis (Chronic) Urinary retention (Acute) Hepatitis C (Chronic) Abrasion of left wrist (Acute) Abdominal pain (Inactive) Abdominal pain (Inactive) Abnormal liver function tests (Inactive) Acute anxiety (Inactive) Acute retention of urine (Inactive) Alcohol abuse (Inactive) Alcohol abuse (Inactive) Alcohol dependence (Inactive) Alcohol intoxication (Inactive) Alcohol intoxication (Inactive) Alcohol intoxication (Inactive) Alcohol withdrawal (Inactive) Alcoholic intoxication (Inactive) Alcoholism (Inactive) Alcoholism /alcohol abuse (Inactive) Anemia (Inactive) Atypical chest pain (Inactive) COPD (chronic obstructive pulmonary disease) (Inactive) Cellulitis (Inactive) Cellulitis of forearm, left (Inactive) Chest pain (Inactive) Chest pain (Inactive) Chest wall pain following surgery (Inactive) Chronic renal failure (Inactive) Closed fracture of left distal radius (Inactive) Depression (Inactive) Depression (Inactive) Elevated blood pressure reading without diagnosis of hypertension (Inactive) Boggs catheter in place (Inactive) Fracture of wrist (Inactive) Fracture of wrist (Inactive) Leukopenia (Inactive) Localized swelling of both lower extremities (Inactive) Lung infiltrate on CT (Inactive) Migraine (Inactive) Pedal edema (Inactive) Problem with Boggs catheter (Inactive) Pruritus (Inactive) Pruritus (Inactive) Radial fracture (Inactive) Suicidal ideation (Inactive) No Social History Section defined Any abnormal vital signs prior to transfer?: No Current Vitals: Last Vital Signs Temp 97.9 F 12/21/17 02:06 Pulse 81 12/21/17 05:42 Resp 16 12/21/17 05:42 BP 150/91 12/21/17 05:42 Pulse Ox 95 12/21/17 05:42 Is the patient intoxicated or cognitively impaired?: No Psychiatric Lab Panel: Drug Levels and Toxicity 12/21/17 12/21/17 02:20 03:21 Urine Opiates Screen Negative Acetaminophen < 1.0 L Ur Barbiturates Screen Negative Ur Phencyclidine Scrn Negative Ur Amphetamines Screen Negative U Benzodiazepines Scrn Positive H Urine Cocaine Screen Negative U Marijuana (THC) Screen Negative Ethyl Alcohol 152 H Any abnormalities on the physical exam?: No Any abnormal labs?: No Abnormal Labs: Abnormal lab results Hgb 12.6 g/dL (12.9-16.9) L 12/21/17 03:21 MCH 27.2 pg (28.0-33.3) L 12/21/17 03:21 MCHC 31.0 g/dL (31.6-35.5) L 12/21/17 03:21 RDW 16.5 % (11.5-14.5) H 12/21/17 03:21 Nucleated RBCs/100 WBC 0.4 /100 WBC (0) H 12/21/17 03:21 Potassium 3.3 mEq/L (3.5-5.1) L 12/21/17 03:21 Chloride 108 mEq/L (98-107) H 12/21/17 03:21 Carbon Dioxide 22 mEq/L (23-29) L 12/21/17 03:21 Glucose 113 mg/dL (70-105) H 12/21/17 03:21 Salicylates < 5.0 mg/dL (15.0-30.0) L 12/21/17 03:21 Acetaminophen < 1.0 mcg/mL (10-30) L 12/21/17 03:21 U Benzodiazepines Scrn Positive ng/mL (Wvkyms=454) H 12/21/17 02:20 Ethyl Alcohol 152 mg/dL (0-10) H 12/21/17 03:21 Does the patient require durable medical equiptment?: No Is the patient ambulatory?: Yes Is the patient a fall risk?: No Has the patient been medically cleared?: Yes Any acute medical condition require Tx prior to transfer?: No S.B.A.R. - S.B.A.R. Transition of Care: 1A after repeat alcohol Situation: Demographics, MOA Background: Presenting Complaint, Relevant PMH, Meds, & Allergies Assessment: Vital Signs, Course and respsone to treatment, Exam Concerns, Patient/Family Expectation, Pertinant Lab Results, Outstanding Labs Recommendation: Barrier(s) to disposition, Recommendation based on pending studies, treatments, or consults S.B.A.RSumeet Report Given to: Simón Christiansen Repor Time: 07:31 Attestation Statement - Attestation Attestation: I, Pito Gutierres MD, personally evaluated this patient and discussed their management with the resident physician. I reviewed the resident's note and agree with the documented findings, medical decision making, and plan of care. 62-year-old male who is seen here frequently presents complaining of suicidal ideation. He has a self-inflicted laceration to the left wrist. This is very superficial and minor. Patient smells of alcohol and does admit to drinking alcohol yesterday. He denies homicidal ideation. He denies hallucinations. He does complain of some headache. On examination patient is a well-developed well-nourished male in no acute distress. He is alert and oriented 3. There is no cyanosis or diaphoresis. Sounds are clear and equal bilaterally. Heart regular rate and rhythm. Abdomen soft and nontender with normal bowel sounds. No gross focal neurological deficits. Labs reviewed. Alcohol level 152. Patient will need a repeat alcohol level to be medically cleared for psychiatric evaluation. At shift change [facility] Dr. Christiansen and Dr. Gr.
[2017-12-21] MEDS ORDERED: Ketorolac 30 MG/ML VIAL IM ONE (03:22)
[2017-12-21 03:34] LABS: Basophils % 0.4 %; Eosinophils # 0.2 K/mcL (0.0-0.6); Hematocrit 40.7 % (37.5-50.1); Hemoglobin 12.6 g/dL (12.9-16.9); Immature Granulocytes % 0.9 % (0-4); Lymphocytes # 1.5 K/mcL (0.6-4.6); Lymphocytes % 33.8 %; Mean Corpuscular Hemoglobin 27.2 pg (28.0-33.3); Mean Corpuscular Volume 87.9 fL (83.0-100.0); Mean Platelet Volume 10.2 fL (9.4-12.4); Monocytes # 0.4 K/mcL (0.0-1.3); Monocytes % 7.9 %; Neutrophils # 2.4 K/mcL (1.6-8.9); Nucleated Red Blood Cells 0.4 /100 WBC (0); Platelet Count 182 K/mcL (140-400); Red Blood Count 4.63 M/mcL (4.19-5.50); Red Cell Distribution Width 16.5 % (11.5-14.5)
[2017-12-21 03:53] LABS: Ethanol 152 mg/dL (0-10)
[2017-12-21 03:54] LABS: Acetaminophen < 1.0 mcg/mL (10-30); Salicylate < 5.0 mg/dL (15.0-30.0)
[2017-12-21 03:57] LABS: BUN/Creatinine Ratio 10 (6-26); Blood Urea Nitrogen 8 mg/dL (8-23); Calcium 9.4 mg/dL (8.6-10.3); Carbon Dioxide 22 mEq/L (23-29); Chloride 108 mEq/L (98-107); Glucose 113 mg/dL (70-105); Osmolality,Calculated 289 (280-300); Potassium 3.3 mEq/L (3.5-5.1); Sodium 140 mEq/L (136-145); eGFR For African Americans > 60 (> 60); eGFR For Non-African Americans > 60 (> 60)
[2017-12-21] MEDS ORDERED: *HR* OxyCODONE/APAP 5/325 TABLET PO ONE (05:39)
[2017-12-21] MEDS ORDERED: *HR* LORazepam 2 MG/ML VIAL IM ONE ×2 (06:11→10:14)
[2017-12-21] MEDS ORDERED: *HR* LORazepam 2 MG/ML VIAL ONE (06:13)
--- NOTE | 2017-12-21 07:46 | Emergency Department Note ---
Disposition Clinical Impression: Suicidal ideation, Abrasion of left wrist Disposition: Still a Patient Condition: Good Referrals: NONE,PCP [Primary Care Provider] - Forms: ED Satisfaction Letter General Adult HPI - General Chief complaint: ED Psychiatric Symptoms Stated complaint: psych eval Time Seen by Provider: 12/21/17 02:07 Source: patient Limitations: no limitations Nursing Notes Reviewed: Yes Vital Signs Reviewed: Yes - History of Present Illness Pain Scale: 10 - Related Data Home Medications Medication Instructions Recorded Confirmed Amlodipine Besylate 10 mg PO DAILY 12/06/17 12/13/17 Budesonide/Formoterol 160/4.5 2 puff IH BID 12/06/17 12/13/17 [Symbicort 160/4.5] Lipase/Protease/Amylase [Creon Dr 3 cap PO TIDWM 12/06/17 12/13/17 12,000 Units Capsule] Omeprazole [PriLOSEC] 20 mg PO DAILY 12/06/17 12/13/17 Pregabalin [Lyrica] 150 mg PO BID 12/06/17 12/13/17 Albuterol Sulfate [Albuterol 2 puff IH Q4H PRN 12/13/17 12/13/17 Inhaler] Cholecalciferol (D-3) [Vitamin D] 1,000 unit PO DAILY 12/13/17 12/13/17 Cyanocobalamin (Vitamin B-12) 500 mcg PO DAILY 12/13/17 12/13/17 [Vitamin B-12] Folic Acid 1 mg PO DAILY 12/13/17 12/13/17 L. Acidophilus/Pectin, [place] 1 each PO BID 12/13/17 12/13/17 [Acidophilus Probiotic Capsule] Magnesium Oxide [Mag-Ox] 400 mg PO DAILY 12/13/17 12/13/17 SUMAtriptan succinate [Imitrex] 6 mg SQ Q2H PRN MDD 12 mg 12/13/17 12/13/17 Thiamine (B-1) [Vitamin B-1] 100 mg PO DAILY 12/13/17 12/13/17 Allergies Allergy/AdvReac Type Severity Reaction Status Date / Time Buspirone [From BuSpar] AdvReac See Verified 11/25/17 11:16 Comments tramadol AdvReac See Verified 11/25/17 11:16 Comments Constitutional: Denies: fever, chills Eyes: Denies: eye pain ENT ED: Denies: ear pain Cardiovascular: Denies: chest pain Respiratory: Denies: cough Gastrointestinal: Denies: abdominal pain Genitourinary: Denies: urgency Musculoskeletal: Denies: back pain Integumentary: Denies: rash Neurological: Denies: headache Psychiatric: Reports: as per HPI, anxiety, suicidal thoughts. Denies: homicidal thoughts Past Medical History - Past Medical History Medical history: Reports: COPD, GERD, hyperlipidemia, hypertension, migraine, myocardial infarction, other Surgical history: Reports: appendectomy, cholecystectomy, other Psychiatric history: Reports: depression, prior suicide attempt, previous psychiatric hospitalization - Social History Smoking Status: Current every day smoker Smokeless Tobacco Status: No Alcohol use: Reports: heavy, recent Drug use: Reports: none Physical Exam - General Limitations: no limitations General appearance: alert, in no apparent distress Course Vital Signs Temperature 97.9 F 12/21/17 02:06 Pulse Rate 91 12/21/17 02:06 Respiratory Rate 18 12/21/17 02:06 Blood Pressure 167/95 12/21/17 02:06 O2 Sat by Pulse Oximetry 97 12/21/17 02:06 Temperature 97.9 F 12/21/17 02:06 Pulse Rate 81 12/21/17 05:42 Respiratory Rate 16 12/21/17 05:42 Blood Pressure 150/91 12/21/17 05:42 O2 Sat by Pulse Oximetry 95 12/21/17 05:42 Oxygen Delivery Oxygen Delivery Room Air Medical Decision Making - MDM Narrative Medical decision making narrative: This documentation is done with the assistance of Dragon dictation. Despite efforts made to ensure accuracy, there may be inaccuracies in millinery teacher or spelling and typographical errors. I examined this patient and my medical decision-making was reviewed with the Resident Physician. I agree with the documented findings, disposition and treatment plan as described except to the extent set forth below. She was a sign out from the evening ER team, patient is waiting on sobriety for alcohol and then reevaluation by 1A. He seen today by Dr. Christiansen and myself, agree with his evaluation management plan supervise care the patient's stay. Patient' s comfortable here at this time. He did not get Ativan earlier. Once his alcohol level is redrawn we will speak with one a to evaluate him. At this time he is not certain whether he suicidal or not. He is cooperative Is 0930 hrs.: Pts repeat blood alcohol level is 24. Weight consult 1A to evaluate. 1016 hrs.: Patient is starting to have some withdrawal symptoms were and admit him medically given Ativan here he is a tough IV stick so we will go ahead and start a midline on him and then admit medically. And then one a can evaluate him and patient also. He is in agreement with this plan. - Lab Data Result diagrams: 12/21/17 03:21 12/21/17 03:21 Lab Results 12/21/17 12/21/17 12/21/17 Range/Units 02:20 02:20 03:21 WBC 4.5 (4.3-11.1) K/mcL RBC 4.63 (4.19-5.50) M/mcL Hgb 12.6 L (12.9-16.9) g/dL Hct 40.7 (37.5-50.1) % MCV 87.9 (83.0-100.0) fL MCH 27.2 L (28.0-33.3) pg MCHC 31.0 L (31.6-35.5) g/dL RDW 16.5 H (11.5-14.5) % Plt Count 182 (140-400) K/mcL MPV 10.2 (9.4-12.4) fL Immature Gran % 0.9 (0-4) % Seg Neutrophils % 53.0 % Lymphocytes % 33.8 % Monocytes % 7.9 % Eosinophils % 4.0 % Basophils % 0.4 % Neutrophils # 2.4 (1.6-8.9) K/mcL Lymphocytes # 1.5 (0.6-4.6) K/mcL Monocytes # 0.4 (0.0-1.3) K/mcL Eosinophils # 0.2 (0.0-0.6) K/mcL Basophils # 0.0 (0.0-0.2) K/mcL Nucleated RBCs/100 WBC 0.4 H (0) /100 WBC Sodium (136-145) mEq/L Potassium (3.5-5.1) mEq/L Chloride (98-107) mEq/L Carbon Dioxide (23-29) mEq/L BUN (8-23) mg/dL Creatinine (0.70-1.30) mg/dL Est GFR ( Amer) (> 60) Est GFR (Non-Af Amer) (> 60) BUN/Creatinine Ratio (6-26) Glucose (70-105) mg/dL Calculated Osmolality (280-300) Calcium (8.6-10.3) mg/dL Urine Color Yellow (Yellow) Urine Clarity Clear (Clear) Urine pH 7.0 (5.0-8.0) pH Units Ur Specific [place] 1.012 (1.010-1.025) Urine Protein Negative (Neg-Trace) mg/dL Urine Glucose (UA) Normal (Normal) mg/dL Urine Ketones Negative (Negative) mg/dL Urine Blood Negative (Negative) Urine Nitrite Negative (Negative) Urine Bilirubin Negative (Negative) Urine Urobilinogen Normal (Normal) mg/dL Ur Leukocyte Esterase Negative (Negative) Salicylates (15.0-30.0) mg/dL Urine Opiates Screen Negative (Vpfrse=124) ng/mL Acetaminophen (10-30) mcg/mL Ur Barbiturates Screen Negative (Fbxgnr=184) ng/mL Ur Phencyclidine Scrn Negative (Cutoff=25) ng/mL Ur Amphetamines Screen Negative (Hmrvqe=6721) ng/mL U Benzodiazepines Scrn Positive H (Zrfgsy=795) ng/mL Urine Cocaine Screen Negative (Cutoff= 300) ng/mL U Marijuana (THC) Screen Negative (Cutoff = 50) ng/mL Ethyl Alcohol (0-10) mg/dL 12/21/17 12/21/17 Range/Units 03:21 08:31 WBC (4.3-11.1) K/mcL RBC (4.19-5.50) M/mcL Hgb (12.9-16.9) g/dL Hct (37.5-50.1) % MCV (83.0-100.0) fL MCH (28.0-33.3) pg MCHC (31.6-35.5) g/dL RDW (11.5-14.5) % Plt Count (140-400) K/mcL MPV (9.4-12.4) fL Immature Gran % (0-4) % Seg Neutrophils % % Lymphocytes % % Monocytes % % Eosinophils % % Basophils % % Neutrophils # (1.6-8.9) K/mcL Lymphocytes # (0.6-4.6) K/mcL Monocytes # (0.0-1.3) K/mcL Eosinophils # (0.0-0.6) K/mcL Basophils # (0.0-0.2) K/mcL Nucleated RBCs/100 WBC (0) /100 WBC Sodium 140 (136-145) mEq/L Potassium 3.3 L (3.5-5.1) mEq/L Chloride 108 H (98-107) mEq/L Carbon Dioxide 22 L (23-29) mEq/L BUN 8 (8-23) mg/dL Creatinine 0.84 (0.70-1.30) mg/dL Est GFR ( Amer) > 60 (> 60) Est GFR (Non-Af Amer) > 60 (> 60) BUN/Creatinine Ratio 10 (6-26) Glucose 113 H (70-105) mg/dL Calculated Osmolality 289 (280-300) Calcium 9.4 (8.6-10.3) mg/dL Urine Color (Yellow) Urine Clarity (Clear) Urine pH (5.0-8.0) pH Units Ur Specific [place] (1.010-1.025) Urine Protein (Neg-Trace) mg/dL Urine Glucose (UA) (Normal) mg/dL Urine Ketones (Negative) mg/dL Urine Blood (Negative) Urine Nitrite (Negative) Urine Bilirubin (Negative) Urine Urobilinogen (Normal) mg/dL Ur Leukocyte Esterase (Negative) Salicylates < 5.0 L (15.0-30.0) mg/dL Urine Opiates Screen (Czxfhd=321) ng/mL Acetaminophen < 1.0 L (10-30) mcg/mL Ur Barbiturates Screen (Gjrcfv=537) ng/mL Ur Phencyclidine Scrn (Cutoff=25) ng/mL Ur Amphetamines Screen (Caemds=2903) ng/mL U Benzodiazepines Scrn (Abpmmf=140) ng/mL Urine Cocaine Screen (Cutoff= 300) ng/mL U Marijuana (THC) Screen (Cutoff = 50) ng/mL Ethyl Alcohol 152 H 24 H (0-10) mg/dL
--- NOTE | 2017-12-21 10:35 | Emergency Department Note ---
Disposition Clinical Impression: Suicidal ideation Abrasion of left wrist Qualifiers: Encounter type: initial encounter Qualified Code(s): S60.812A - Abrasion of left wrist, initial encounter Alcohol withdrawal Qualifiers: Complication of substance-induced condition: uncomplicated Qualified Code(s): F10.230 - Alcohol dependence with withdrawal, uncomplicated Disposition: Admitted As Inpatient Condition: Good Referrals: NONE,PCP [Primary Care Provider] - Forms: ED Satisfaction Letter General Adult HPI - General Chief complaint: ED Psychiatric Symptoms Stated complaint: psych eval Time Seen by Provider: 12/21/17 02:07 Source: patient Limitations: no limitations - History of Present Illness Pain Scale: 10 - Related Data Home Medications Medication Instructions Recorded Confirmed Amlodipine Besylate 10 mg PO DAILY 12/06/17 12/13/17 Budesonide/Formoterol 160/4.5 2 puff IH BID 12/06/17 12/13/17 [Symbicort 160/4.5] Lipase/Protease/Amylase [Creon Dr 3 cap PO TIDWM 12/06/17 12/13/17 12,000 Units Capsule] Omeprazole [PriLOSEC] 20 mg PO DAILY 12/06/17 12/13/17 Pregabalin [Lyrica] 150 mg PO BID 12/06/17 12/13/17 Albuterol Sulfate [Albuterol 2 puff IH Q4H PRN 12/13/17 12/13/17 Inhaler] Cholecalciferol (D-3) [Vitamin D] 1,000 unit PO DAILY 12/13/17 12/13/17 Cyanocobalamin (Vitamin B-12) 500 mcg PO DAILY 12/13/17 12/13/17 [Vitamin B-12] Folic Acid 1 mg PO DAILY 12/13/17 12/13/17 L. Acidophilus/Pectin, [place] 1 each PO BID 12/13/17 12/13/17 [Acidophilus Probiotic Capsule] Magnesium Oxide [Mag-Ox] 400 mg PO DAILY 12/13/17 12/13/17 SUMAtriptan succinate [Imitrex] 6 mg SQ Q2H PRN MDD 12 mg 12/13/17 12/13/17 Thiamine (B-1) [Vitamin B-1] 100 mg PO DAILY 12/13/17 12/13/17 Allergies Allergy/AdvReac Type Severity Reaction Status Date / Time Buspirone [From BuSpar] AdvReac See Verified 11/25/17 11:16 Comments tramadol AdvReac See Verified 11/25/17 11:16 Comments Constitutional: Denies: fever, chills Eyes: Denies: eye pain ENT ED: Denies: ear pain Cardiovascular: Denies: chest pain Respiratory: Denies: cough Gastrointestinal: Denies: abdominal pain Genitourinary: Denies: urgency Musculoskeletal: Denies: back pain Integumentary: Denies: rash Neurological: Denies: headache Psychiatric: Reports: as per HPI, anxiety, suicidal thoughts. Denies: homicidal thoughts Past Medical History - Past Medical History Medical history: Reports: COPD, GERD, hyperlipidemia, hypertension, migraine, myocardial infarction, other Surgical history: Reports: appendectomy, cholecystectomy, other Psychiatric history: Reports: depression, prior suicide attempt, previous psychiatric hospitalization - Social History Smoking Status: Current every day smoker Smokeless Tobacco Status: No Alcohol use: Reports: heavy, recent Drug use: Reports: none Physical Exam - General Limitations: no limitations General appearance: alert, in no apparent distress Course Course Narrative: Patient has been taken over at sign out from Dr. Zavaleta. The patient is complaining of a headache and has a rag on his head. He states that he went commit suicide yesterday and cut his arm to kill himself. No laceration repair required. The patient also has a history of chronic alcohol use. Upon my evaluation he has received Ativan for shaking. The patient will be evaluated by 1A for placement. Upon 1A evaluation the patient's withdrawals have been getting worse. Patient does have active suicidal thoughts and stating that he wants to kill himself in order to feel better. The patient will need to undergo medical admission for detox as well as psychiatric evaluation of suicidal intent. Discussed with the hospitalist. Dr. Lopez. Patient admitted for further evaluation. Vital Signs Temperature 97.9 F 12/21/17 02:06 Pulse Rate 91 12/21/17 02:06 Respiratory Rate 18 12/21/17 02:06 Blood Pressure 167/95 12/21/17 02:06 O2 Sat by Pulse Oximetry 97 12/21/17 02:06 Temperature 97.9 F 12/21/17 02:06 Pulse Rate 86 12/21/17 10:37 Respiratory Rate 16 12/21/17 10:37 Blood Pressure 179/104 12/21/17 10:37 O2 Sat by Pulse Oximetry 96 12/21/17 10:37 Oxygen Delivery Oxygen Delivery Room Air Medical Decision Making - Lab Data Result diagrams: 12/21/17 03:21 12/21/17 03:21 Lab Results 12/21/17 12/21/17 12/21/17 Range/Units 02:20 02:20 03:21 WBC 4.5 (4.3-11.1) K/mcL RBC 4.63 (4.19-5.50) M/mcL Hgb 12.6 L (12.9-16.9) g/dL Hct 40.7 (37.5-50.1) % MCV 87.9 (83.0-100.0) fL MCH 27.2 L (28.0-33.3) pg MCHC 31.0 L (31.6-35.5) g/dL RDW 16.5 H (11.5-14.5) % Plt Count 182 (140-400) K/mcL MPV 10.2 (9.4-12.4) fL Immature Gran % 0.9 (0-4) % Seg Neutrophils % 53.0 % Lymphocytes % 33.8 % Monocytes % 7.9 % Eosinophils % 4.0 % Basophils % 0.4 % Neutrophils # 2.4 (1.6-8.9) K/mcL Lymphocytes # 1.5 (0.6-4.6) K/mcL Monocytes # 0.4 (0.0-1.3) K/mcL Eosinophils # 0.2 (0.0-0.6) K/mcL Basophils # 0.0 (0.0-0.2) K/mcL Nucleated RBCs/100 WBC 0.4 H (0) /100 WBC Sodium (136-145) mEq/L Potassium (3.5-5.1) mEq/L Chloride (98-107) mEq/L Carbon Dioxide (23-29) mEq/L BUN (8-23) mg/dL Creatinine (0.70-1.30) mg/dL Est GFR ( Amer) (> 60) Est GFR (Non-Af Amer) (> 60) BUN/Creatinine Ratio (6-26) Glucose (70-105) mg/dL Calculated Osmolality (280-300) Calcium (8.6-10.3) mg/dL Urine Color Yellow (Yellow) Urine Clarity Clear (Clear) Urine pH 7.0 (5.0-8.0) pH Units Ur Specific [place] 1.012 (1.010-1.025) Urine Protein Negative (Neg-Trace) mg/dL Urine Glucose (UA) Normal (Normal) mg/dL Urine Ketones Negative (Negative) mg/dL Urine Blood Negative (Negative) Urine Nitrite Negative (Negative) Urine Bilirubin Negative (Negative) Urine Urobilinogen Normal (Normal) mg/dL Ur Leukocyte Esterase Negative (Negative) Salicylates (15.0-30.0) mg/dL Urine Opiates Screen Negative (Ihobjm=943) ng/mL Acetaminophen (10-30) mcg/mL Ur Barbiturates Screen Negative (Dxptjx=561) ng/mL Ur Phencyclidine Scrn Negative (Cutoff=25) ng/mL Ur Amphetamines Screen Negative (Gjykgy=4136) ng/mL U Benzodiazepines Scrn Positive H (Wskcsn=901) ng/mL Urine Cocaine Screen Negative (Cutoff= 300) ng/mL U Marijuana (THC) Screen Negative (Cutoff = 50) ng/mL Ethyl Alcohol (0-10) mg/dL 12/21/17 12/21/17 Range/Units 03:21 08:31 WBC (4.3-11.1) K/mcL RBC (4.19-5.50) M/mcL Hgb (12.9-16.9) g/dL Hct (37.5-50.1) % MCV (83.0-100.0) fL MCH (28.0-33.3) pg MCHC (31.6-35.5) g/dL RDW (11.5-14.5) % Plt Count (140-400) K/mcL MPV (9.4-12.4) fL Immature Gran % (0-4) % Seg Neutrophils % % Lymphocytes % % Monocytes % % Eosinophils % % Basophils % % Neutrophils # (1.6-8.9) K/mcL Lymphocytes # (0.6-4.6) K/mcL Monocytes # (0.0-1.3) K/mcL Eosinophils # (0.0-0.6) K/mcL Basophils # (0.0-0.2) K/mcL Nucleated RBCs/100 WBC (0) /100 WBC Sodium 140 (136-145) mEq/L Potassium 3.3 L (3.5-5.1) mEq/L Chloride 108 H (98-107) mEq/L Carbon Dioxide 22 L (23-29) mEq/L BUN 8 (8-23) mg/dL Creatinine 0.84 (0.70-1.30) mg/dL Est GFR ( Amer) > 60 (> 60) Est GFR (Non-Af Amer) > 60 (> 60) BUN/Creatinine Ratio 10 (6-26) Glucose 113 H (70-105) mg/dL Calculated Osmolality 289 (280-300) Calcium 9.4 (8.6-10.3) mg/dL Urine Color (Yellow) Urine Clarity (Clear) Urine pH (5.0-8.0) pH Units Ur Specific [place] (1.010-1.025) Urine Protein (Neg-Trace) mg/dL Urine Glucose (UA) (Normal) mg/dL Urine Ketones (Negative) mg/dL Urine Blood (Negative) Urine Nitrite (Negative) Urine Bilirubin (Negative) Urine Urobilinogen (Normal) mg/dL Ur Leukocyte Esterase (Negative) Salicylates < 5.0 L (15.0-30.0) mg/dL Urine Opiates Screen ([place]=546) ng/mL Acetaminophen < 1.0 L (10-30) mcg/mL Ur Barbiturates Screen (Fycyhu=486) ng/mL Ur Phencyclidine Scrn (Cutoff=25) ng/mL Ur Amphetamines Screen (Qxhffz=8673) ng/mL U Benzodiazepines Scrn (Vteddh=596) ng/mL Urine Cocaine Screen (Cutoff= 300) ng/mL U Marijuana (THC) Screen (Cutoff = 50) ng/mL Ethyl Alcohol 152 H 24 H (0-10) mg/dL
--- NOTE | 2017-12-21 11:37 | Internal Med History&Physical ---
<Cassius Gallegos - Last Filed: 12/21/17 14:09> Date of Encounter: 12/21/17 Time of Encounter: 11:31 Assessment and Plan (1) Suicidal behavior with attempted self-injury Current visit: Yes Status: Acute Patient attempted to commit suicide this morning. -Says that "He wasn't thinking right," and that he "chickened out" after he cut his wrist. -Has a superficial injury to the left wrist. -Psychiatry has been consulted (2) Alcohol withdrawal Current visit: Yes Status: Acute -Patient has been on CIWA protocol -Patient was given Ketorolac 30 mg IM ONCE, Ativan 2 mg IM twice -Toxicology demonstrated Ethy alcohol 24 and + benzodiazepines -Librium 50 mg Q6 -Consider alcohol rehabilitation -Alcohol withdrawal protocol Qualifiers: Complication of substance-induced condition: uncomplicated Qualified Code(s ): F10.230 - Alcohol dependence with withdrawal, uncomplicated (3) Anemia Current visit: Yes Status: Acute -Patient has a known history of anemia -Likely 2/2 alcoholism -Hemoglobin is stable at this time Qualifiers: Qualified Code(s): D64.9 - Anemia, unspecified (4) History of substance abuse Current visit: Yes Status: Acute -Patient has a known history of polysubstance abuse -Has used marijuana in the past -Multiple previous admissions for alcohol withdrawal syndrome (5) Hepatitis C Current visit: Yes Status: Acute -Patient has known history of chronic hepatitis C -He is liver enzymes are elevated -Also possibly he has alcoholic hepatitis as well -He will benefit from follow up with product representative as an outpatient after discharge Qualifiers: Qualified Code(s): B19.20 - Unspecified viral hepatitis C without hepatic coma (6) Migraine Current visit: Yes Status: Acute pain control Qualifiers: Qualified Code(s): G43.909 - Migraine, unspecified, not intractable, without status migrainosus Internal Medicine - H&P: HPI Chief complaint: Suicide attempt Admitted From: Home History of present illness: Mr. Chen is a 62 year old male with a PMH of COPD, GERD, hyperlipidemia, hypertension, migraine, myocardial infarction, ploysubstance abuse, and depression who presented to [facility] after an episode of drinking and a suicide attempt. Patient attempted to commit suicide by slicing his left wrist. Says that "He wasn't thinking right," and that he "chickened out" after he cut his wrist. Wound is superficial and minor. Smells of alcohol. Multiple suicide attempts in the past. Multiple previous admissions for alcohol withdrawal. Admitted for psychiatric evaluation and medical treatment for alcohol withdrawal. Patient complains of a headache; has a towel over his face. Also complains of L sided abdominal pain. Patient requests his home lyrica for neuropathic pain. Past Med Surg Social Fam HX - Past Medical History Medical history: COPD, GERD, hyperlipidemia, hypertension, migraine, myocardial infarction, other Psychiatric history: depression, prior suicide attempt, previous psychiatric hospitalization - Past Surgical History Surgical History: appendectomy, cholecystectomy, other - Social History Smoking Status: Current every day smoker Smokeless Tobacco Status: No Alcohol use: heavy, recent Drug use: none - Family History Mother Adopted: No Family Member Ethnicity: Non- Living Status: Still Living Hx Family Cardiac Disorders: Yes (HTN) Hx Family Respiratory Disorders: No Hx Family Cancer: No Hx Family GI Disorders: No Hx Family Endocrine Disorder: No Hx Family Neuromuscular Disorders: No Hx Family Neurologic Disorders: Yes (neuropathy) Hx Family HEENT Disorders: No Hx Family Autoimmune Disorders: No Father Living Status: Internal Medicine - H&P: Meds Amlodipine Besylate 10 mg PO DAILY 12/06/17 [History] Budesonide/Formoterol 160/4.5 [Symbicort 160/4.5] 2 puff IH BID 12/06/17 [ History] Lipase/Protease/Amylase [Creon Dr 12,000 Units Capsule] 3 cap PO TIDWM 12/06/17 [History] Omeprazole [PriLOSEC] 20 mg PO DAILY 12/06/17 [History] Pregabalin [Lyrica] 150 mg PO BID 12/06/17 [History] Albuterol Sulfate [Albuterol Inhaler] 2 puff IH Q4H PRN 12/13/17 [History] Cholecalciferol (D-3) [Vitamin D] 1,000 unit PO DAILY 12/13/17 [History] Cyanocobalamin (Vitamin B-12) [Vitamin B-12] 500 mcg PO DAILY 12/13/17 [History] Folic Acid 1 mg PO DAILY 12/13/17 [History] L. Acidophilus/Pectin, [place] [Acidophilus Probiotic Capsule] 1 each PO BID [History] Magnesium Oxide [Mag-Ox] 400 mg PO DAILY 12/13/17 [History] SUMAtriptan succinate [Imitrex] 6 mg SQ Q2H PRN MDD 12 mg 12/13/17 [History] Thiamine (B-1) [Vitamin B-1] 100 mg PO DAILY 12/13/17 [History] Amitriptyline [Elavil] 75 mg PO HS 12/21/17 [History] 3 Allergy/AdvReac Type Severity Reaction Status Date / Time Buspirone [From BuSpar] AdvReac See Verified 11/25/17 11:16 Comments tramadol AdvReac See Verified 11/25/17 11:16 Comments All Systems PM: A 10-system review of systems was performed and is negative for pertinent findings except as documented above in the HPI. - Constitutional Constitutional: no fatigue, no fever(s), no lethargy, no night sweats, no weakness - Cardiovascular Cardiovascular ROS IM: no chest pain, no dyspnea - Respiratory Respiratory: no cough, no dyspnea, no hemoptysis - Gastrointestinal Gastrointestinal: abdominal pain - Psychiatric Psychiatric: anxiety, depression, suicidal ideation - Constitutional Vitals: Temp Pulse Resp BP Pulse Ox 97.9 F 86 16 179/104 96 12/21/17 02:06 12/21/17 10:37 12/21/17 10:37 12/21/17 10:37 12/21/17 10:37 General appearance: Present: A&O X 3, answers questions appropriately - Head Head exam: Present: atraumatic, normocephalic - Neck Neck exam general surgery: Absent: lymphadenopathy - Respiratory Respiratory exam: Present: CTAB. Absent: accessory muscle use, rales, rhonchi, wheezes - Cardiovascular Cardiovascular exam: Present: RRR, +S1, +S2. Absent: diastolic murmur, gallop, rubs, systolic murmur - GI/Abdominal GI/Abdominal exam: Present: distended, firm, hepatomegaly, rigid, tenderness, no peritoneal signs Additional comments: multiple scars observed on the abdomen. - Extremities Exam Extremities exam: Present: warm, radial pulses palpable and symmetrical. Absent : calf tenderness, cyanotic, pedal edema - Neurological Exam Neurological exam: Absent: pronater drift, facial droop, speech deficit - Psychiatric Psychiatric exam: Present: depressed, suicidal ideation - Skin Skin exam: Present: dry, intact Internal Med - H&P Results - Labs CBC & Chem 7: 12/21/17 03:21 12/21/17 03:21 Labs: Short CBC 12/21/17 Range/Units 03:21 WBC 4.5 (4.3-11.1) K/mcL Hgb 12.6 L (12.9-16.9) g/dL Hct 40.7 (37.5-50.1) % Plt Count 182 (140-400) K/mcL Neutrophils # 2.4 (1.6-8.9) K/mcL BMP 12/21/17 03:21 Sodium 140 Potassium 3.3 L Chloride 108 H Carbon Dioxide 22 L BUN 8 Creatinine 0.84 Glucose 113 H Calcium 9.4 Urine 12/21/17 Range/Units 02:20 Urine Color Yellow (Yellow) Urine Clarity Clear (Clear) Urine pH 7.0 (5.0-8.0) pH Units Ur Specific [place] 1.012 (1.010-1.025) Urine Protein Negative (Neg-Trace) mg/dL Urine Glucose (UA) Normal (Normal) mg/dL <Davi Lopez - Last Filed: 12/21/17 14:23> Date of Encounter: 12/21/17 Internal Medicine - H&P: HPI History of present illness: Mr. Chen is a 62 year old male All Systems PM: A 10-system review of systems was performed and is negative for pertinent findings except as documented above in the HPI. - Constitutional Vitals: Temp Pulse Resp BP Pulse Ox 97.9 F 90 18 191/107 98 12/21/17 02:06 12/21/17 13:44 12/21/17 13:44 12/21/17 13:44 12/21/17 13:44 Internal Med - H&P Results - Labs CBC & Chem 7: 12/21/17 03:21 12/21/17 03:21 Labs: Short CBC 12/21/17 Range/Units 03:21 WBC 4.5 (4.3-11.1) K/mcL Hgb 12.6 L (12.9-16.9) g/dL Hct 40.7 (37.5-50.1) % Plt Count 182 (140-400) K/mcL Neutrophils # 2.4 (1.6-8.9) K/mcL BMP 12/21/17 03:21 Sodium 140 Potassium 3.3 L Chloride 108 H Carbon Dioxide 22 L BUN 8 Creatinine 0.84 Glucose 113 H Calcium 9.4 Urine 12/21/17 Range/Units 02:20 Urine Color Yellow (Yellow) Urine Clarity Clear (Clear) Urine pH 7.0 (5.0-8.0) pH Units Ur Specific [place] 1.012 (1.010-1.025) Urine Protein Negative (Neg-Trace) mg/dL Urine Glucose (UA) Normal (Normal) mg/dL - Attending Attestation I examined this patient and my medical decision-making was reviewed with the Resident Physician, Dr Gallegos. I agree with the documented findings, disposition and treatment plan as described except to the extent set forth below. Patient presented to the hospital due to suicidal ideation and depression. He states that he try to hurt himself by cutting his wrist with a knife this morning. He states that he is very depressed. Currently he reports severe migraine headache. On exam he is in moderate distress due to headache. Heart is regular. Lungs are clear. There is a superficial laceration of the left wrist Assessment: Suicidal ideation, alcohol abuse with withdrawal symptoms, migraine, Plan: Continue safety observation, psychiatry consult, CITX protocol, Fioricet for migraine. He is at high risk for mortality and complications due to suicidal ideation.
[2017-12-21] MEDS ORDERED: *HR* LORazepam 2 MG/ML VIAL IVP ONE (12:52)
[2017-12-21] MEDS ORDERED: *HR* OxyCODONE Immed Rel 5 MG TABLET PO ONE (13:13)
[2017-12-21] MEDS ORDERED: Acetaminophen/Butalbital/CaffeineTABLET PO ONE (13:59)
[2017-12-21] MEDS ORDERED: Nicotine 21 MG PATCH.TD24 TD STA (14:05)
[2017-12-21] MEDS ORDERED: SUMAtriptan 6 MG/0.5 ML SQ PRN (14:26)
[2017-12-21] MEDS ORDERED: Nicotine 21 MG PATCH.TD24 TD ONE (14:52)
[2017-12-21] MEDS: *HR* LORazepam 2 MG/ML VIAL IVP PRN ×4 (17:09→23:28)
[2017-12-21] MEDS: amLODIPine 5 MG TABLET PO SCH (18:14)
[2017-12-21] MEDS: Budesonide/Formoterol 160/4.5 MDI IH SCH (20:27)
[2017-12-21] MEDS: Pregabalin 75 MG CAPSULE PO SCH (20:34)
[2017-12-21] MEDS: *HR* OxyCODONE/APAP 5/325 TABLET PO PRN (20:35)
[2017-12-22] MEDS: *HR* OxyCODONE/APAP 5/325 TABLET PO PRN ×3 (02:22→21:33)
[2017-12-22] MEDS: Acetaminophen/Butalbital/CaffeineTABLET PO PRN ×2 (08:25→18:43)
[2017-12-22] MEDS: Thiamine (B-1) 100 MG TABLET PO SCH (08:26)
[2017-12-22] MEDS: Magnesium Oxide 400 MG TABLET PO SCH (08:27)
[2017-12-22] MEDS: amLODIPine 5 MG TABLET PO SCH (08:27)
[2017-12-22] MEDS: Pregabalin 75 MG CAPSULE PO SCH ×2 (08:27→21:34)
[2017-12-22] MEDS: *HR* LORazepam 2 MG/ML VIAL IVP PRN ×4 (08:27→21:41)
[2017-12-22] MEDS ORDERED: Thiamine (B-1) 100 MG TABLET PO SCH (09:00)
[2017-12-22] MEDS: Budesonide/Formoterol 160/4.5 MDI IH SCH ×2 (11:10→22:27)
--- NOTE | 2017-12-22 14:37 | Consult Note ---
Date of Encounter: 12/22/17 Time of Encounter: 14:00 Assessment & Recommendation (1) Bipolar disorder, unspecified Current visit: No Status: Chronic Assessment & Recommendation: will start medication and education and counselling given to patient. Qualifiers: Active/Remission status: currently active Current bipolar episode type: depressed Current episode severity: unspecified Qualified Code(s): F31.30 - Bipolar disorder, current episode depressed, mild or moderate severity, unspecified (2) Alcohol withdrawal Current visit: No Status: Acute Qualifiers: Complication of substance-induced condition: uncomplicated Qualified Code(s ): F10.230 - Alcohol dependence with withdrawal, uncomplicated (3) History of alcohol abuse Current visit: No Status: Chronic (4) Suicidal behavior with attempted self-injury Current visit: Yes Status: Resolved Assessment & Recommendation: patient not suicidal or homicidal at present. History of Present Illness Patient: known to practice within the last 3 years Requesting Physician: Davi Lopez MD Reason for consult: suicidal attempt , history of bipolar . History of present illness: Mr. Chen is a 62 year old male with h/o bipolar and alcohol dependence. CONSULTED TODAY as he had cut his wrist superficially intentionally after drinking episode Chart was reviewed and he has been [facility] for suicidal ideation and attempts and non compliant with his bipolar treatment. He at present stating I need help , i do not want to hurt my self. He has been living alone , his family has disowned him as he is [place] and he feels lonely , depress and sad, states i drink so i feel better, he is drinking daily and denies any other drug , has used marijuana in past. At present he feels depress , sad , poor sleep and anxious ,denies any suicidal ideation ,no homicidal ideation , no psychosis, h/o sulaiman and depression. h/o psych inpatient and multiple rehab , [facility] and no soberity only when in treatment. he has taken in past lithium , seroquel , antidepressants . medical PMH of COPD, GERD, hyperlipidemia, hypertension, migraine, myocardial infarction , ploysubstance abuse, and depression who presented to [facility] after an episode of drinking and a suicide attempt. Patient attempted to commit suicide by slicing his left wrist. Says that "He wasn't thinking right," and that he "chickened out " after he cut his wrist. A/P h/o Bipolar affective disorder unspecified Alcohol dependence and withdrawl stabilization. At present patient is not in imenent danger to self/others. Please continue the withdrawl protocol. Start seroquel 100 mg hs escitalopram 10 mg am. inpatient rehab for continuity of soberity out patient follow up. Thank you for consult. CC: Davi oLpez MD Past Med Surg Social Fam HX - Past Medical History Medical history: COPD, GERD, hyperlipidemia, hypertension, migraine, myocardial infarction, other - Past Psychiatric History Psychiatric history: Reports: anxiety, bipolar, prior suicide attempt, previous psychiatric hospitalization Family psychiatric history: Unknown Family History of Suicide: Unknown - Past Surgical History Surgical History: appendectomy, cholecystectomy, other - Social History Smoking Status: Current every day smoker Smokeless Tobacco Status: No Alcohol use: heavy, recent Drug use: none - Family History Mother Adopted: No Family Member Ethnicity: Non- Living Status: Still Living Hx Family Cardiac Disorders: Yes (HTN) Hx Family Respiratory Disorders: No Hx Family Cancer: No Hx Family GI Disorders: No Hx Family Endocrine Disorder: No Hx Family Neuromuscular Disorders: No Hx Family Neurologic Disorders: Yes (neuropathy) Hx Family HEENT Disorders: No Hx Family Autoimmune Disorders: No Father Living Status: Medications & Allergies Amlodipine Besylate 10 mg PO DAILY 12/06/17 [History] Budesonide/Formoterol 160/4.5 [Symbicort 160/4.5] 2 puff IH BID 12/06/17 [ History] Lipase/Protease/Amylase [Creon Dr 12,000 Units Capsule] 3 cap PO TIDWM 12/06/17 [History] Omeprazole [PriLOSEC] 20 mg PO DAILY 12/06/17 [History] Pregabalin [Lyrica] 150 mg PO BID 12/06/17 [History] Albuterol Sulfate [Albuterol Inhaler] 2 puff IH Q4H PRN 12/13/17 [History] Cholecalciferol (D-3) [Vitamin D] 1,000 unit PO DAILY 12/13/17 [History] Cyanocobalamin (Vitamin B-12) [Vitamin B-12] 500 mcg PO DAILY 12/13/17 [History] Folic Acid 1 mg PO DAILY 12/13/17 [History] L. Acidophilus/Pectin, [place] [Acidophilus Probiotic Capsule] 1 each PO BID [History] Magnesium Oxide [Mag-Ox] 400 mg PO DAILY 12/13/17 [History] SUMAtriptan succinate [Imitrex] 6 mg SQ Q2H PRN MDD 12 mg 12/13/17 [History] Thiamine (B-1) [Vitamin B-1] 100 mg PO DAILY 12/13/17 [History] Amitriptyline [Elavil] 75 mg PO HS 12/21/17 [History] 3 Allergy/AdvReac Type Severity Reaction Status Date / Time Buspirone [From BuSpar] AdvReac See Verified 11/25/17 11:16 Comments tramadol AdvReac See Verified 11/25/17 11:16 Comments Review of Systems Psychiatric: Reports: depression, anxiety, abnormal sleep pattern, suicidal ideation, mood swings Mental Status Exam Patient orientation: Yes Person, Yes Time, Yes Place Level of alertness: Alert Patient appearance: Appropriate Behavior: cooperative, anxious Psychomotor activity: Normal Eye contact: Maintains Eye Contact Mood description: Depressed, Anxious Affect description: congruent with mood Speech pattern: Coherent Speech volume: Normal Thought process: Logical Thought content: Yes Intact Attention span: Capable of Sustained Attention Memory description: Grossly Intact Patient reliability: Reliable Historian Intelligence estimate: Average Judgment: Fair Insight: Partial Results - Vital Signs Vital signs: Temp Pulse Resp BP Pulse Ox 98.7 F 85 17 161/105 96 12/22/17 10:25 12/22/17 10:25 12/22/17 11:15 12/22/17 11:15 12/22/17 11:15 - Labs Labs: Laboratory Last Values WBC 4.5 K/mcL (4.3-11.1) 12/21/17 03:21 RBC 4.63 M/mcL (4.19-5.50) 12/21/17 03:21 Hgb 12.6 g/dL (12.9-16.9) L 12/21/17 03:21 Hct 40.7 % (37.5-50.1) 12/21/17 03:21 MCV 87.9 fL (83.0-100.0) 12/21/17 03:21 MCH 27.2 pg (28.0-33.3) L 12/21/17 03:21 MCHC 31.0 g/dL (31.6-35.5) L 12/21/17 03:21 RDW 16.5 % (11.5-14.5) H 12/21/17 03:21 Plt Count 182 K/mcL (140-400) 12/21/17 03:21 MPV 10.2 fL (9.4-12.4) 12/21/17 03:21 Immature Gran % 0.9 % (0-4) 12/21/17 03:21 Seg Neutrophils % 53.0 % 12/21/17 03:21 Lymphocytes % 33.8 % 12/21/17 03:21 Monocytes % 7.9 % 12/21/17 03:21 Eosinophils % 4.0 % 12/21/17 03:21 Basophils % 0.4 % 12/21/17 03:21 Neutrophils # 2.4 K/mcL (1.6-8.9) 12/21/17 03:21 Lymphocytes # 1.5 K/mcL (0.6-4.6) 12/21/17 03:21 Monocytes # 0.4 K/mcL (0.0-1.3) 12/21/17 03:21 Eosinophils # 0.2 K/mcL (0.0-0.6) 12/21/17 03:21 Basophils # 0.0 K/mcL (0.0-0.2) 12/21/17 03:21 Nucleated RBCs/100 WBC 0.4 /100 WBC (0) H 12/21/17 03:21 Sodium 140 mEq/L (136-145) 12/21/17 03:21 Potassium 3.3 mEq/L (3.5-5.1) L 12/21/17 03:21 Chloride 108 mEq/L (98-107) H 12/21/17 03:21 Carbon Dioxide 22 mEq/L (23-29) L 12/21/17 03:21 BUN 8 mg/dL (8-23) 12/21/17 03:21 Creatinine 0.84 mg/dL (0.70-1.30) 12/21/17 03:21 Est GFR ( Amer) > 60 (> 60) 12/21/17 03:21 Est GFR (Non-Af Amer) > 60 (> 60) 12/21/17 03:21 BUN/Creatinine Ratio 10 (6-26) 12/21/17 03:21 Glucose 113 mg/dL (70-105) H 12/21/17 03:21 POC Glucose 106 (58-89) H 12/22/17 11:10 Calculated Osmolality 289 (280-300) 12/21/17 03:21 Calcium 9.4 mg/dL (8.6-10.3) 12/21/17 03:21 Urine Color Yellow (Yellow) 12/21/17 02:20 Urine Clarity Clear (Clear) 12/21/17 02:20 Urine pH 7.0 pH Units (5.0-8.0) 12/21/17 02:20 Ur Specific [place] 1.012 (1.010-1.025) 12/21/17 02:20 Urine Protein Negative mg/dL (Neg-Trace) 12/21/17 02:20 Urine Glucose (UA) Normal mg/dL (Normal) 12/21/17 02:20 Urine Ketones Negative mg/dL (Negative) 12/21/17 02:20 Urine Blood Negative (Negative) 12/21/17 02:20 Urine Nitrite Negative (Negative) 12/21/17 02:20 Urine Bilirubin Negative (Negative) 12/21/17 02:20 Urine Urobilinogen Normal mg/dL (Normal) 12/21/17 02:20 Ur Leukocyte Esterase Negative (Negative) 12/21/17 02:20 Salicylates < 5.0 mg/dL (15.0-30.0) L 12/21/17 03:21 Urine Opiates Screen Negative ng/mL (Gyrfsf=397) 12/21/17 02:20 Acetaminophen < 1.0 mcg/mL (10-30) L 12/21/17 03:21 Ur Barbiturates Screen Negative ng/mL (Vegmxz=228) 12/21/17 02:20 Ur Phencyclidine Scrn Negative ng/mL (Cutoff=25) 12/21/17 02:20 Ur Amphetamines Screen Negative ng/mL (Kuogav=9878) 12/21/17 02:20 U Benzodiazepines Scrn Positive ng/mL (Gtasyq=134) H 12/21/17 02:20 Urine Cocaine Screen Negative ng/mL (Cutoff= 300) 12/21/17 02:20 U Marijuana (THC) Screen Negative ng/mL (Cutoff = 50) 12/21/17 02:20 Ethyl Alcohol 24 mg/dL (0-10) H 12/21/17 08:31 Consult Discharge Plan - Plan Referrals: NONE,PCP [Primary Care Provider] -
--- NOTE | 2017-12-22 16:28 | Internal Med Progress Note ---
Date of Encounter: 12/22/17 Time of Encounter: 13:00 - Assessment and plan (1) Suicidal ideation Current Visit: Yes Status: Acute Assessment and plan: I appreciate psychiatry recommendations. We will start Seroquel and Lexapro per psychiatry. (2) Suicidal behavior with attempted self-injury Current Visit: Yes Status: Resolved Assessment and plan: Denies suicidal ideation. He was cleared by psychiatry. We will discontinue sitter. (3) Abdominal pain Current Visit: No Status: Acute Assessment and plan: History of alcoholism with his history of alcoholism abdominal pain likely secondary to acute gastritis versus pancreatitis. We will check lipase. Per chart review he had elevated lipase 1 year ago consistent with acute pancreatitis. Qualifiers: Abdominal location: periumbilical Qualified Code(s): R10.33 - Periumbilical pain (4) Alcohol withdrawal Current Visit: No Status: Acute Assessment and plan: CIWA protocol. Continue with thiamine and folic acid. Multivitamins. Librium taper. Qualifiers: Complication of substance-induced condition: uncomplicated Qualified Code(s ): F10.230 - Alcohol dependence with withdrawal, uncomplicated (5) Bipolar disorder with severe depression Current Visit: Yes Status: Acute Assessment and plan: He is severely depressed. We will start antidepressants. Appreciate psychiatry recommendations. He does not require inpatient psychiatric admission. - Subjective Interval history: Patient reports moderate, periumbilical abdominal pain. Denies nausea vomiting. Denies fever. He presented with suicidal ideation yesterday. Currently he reports that he feels depressed but denies suicidal and homicidal ideation. - Constitutional Vitals: Temp Pulse Resp BP Pulse Ox 98.3 F 96 18 159/105 94 12/22/17 15:42 12/22/17 15:42 12/22/17 15:42 12/22/17 15:42 12/22/17 15:42 General appearance: Present: A&O X 3, answers questions appropriately - Respiratory Respiratory exam: Present: CTAB. Absent: accessory muscle use, rales, rhonchi, wheezes - Cardiovascular Cardiovascular exam: Present: RRR, +S1, +S2. Absent: diastolic murmur, gallop, rubs, systolic murmur - GI/Abdominal GI/Abdominal exam: Present: normal bowel sounds, soft, no peritoneal signs. Absent: distended, tenderness - Neurological Exam Neurological exam: Present: CN II-XII intact, oriented X3, no focal deficits. Absent: pronater drift, facial droop, speech deficit - Psychiatric Psychiatric exam: Present: depressed. Absent: homicidal ideation, suicidal ideation - Skin Skin exam: Present: dry, intact Internal Medicine: Result - Labs CBC & Chem 7: 12/21/17 03:21 18 03:21 Consult Discharge Plan - Plan Referrals: NONE,PCP [Primary Care Provider] -
[2017-12-22] MEDS: Nicotine 21 MG PATCH.TD24 TD SCH (16:43)
[2017-12-22] MEDS: Temazepam 15 MG CAPSULE PO PRN (21:34)
[2017-12-23] MEDS: *HR* OxyCODONE/APAP 5/325 TABLET PO PRN ×3 (04:32→18:03)
[2017-12-23] MEDS: *HR* LORazepam 2 MG/ML VIAL IVP PRN ×4 (04:34→21:55)
[2017-12-23] MEDS: Budesonide/Formoterol 160/4.5 MDI IH SCH ×2 (08:06→21:29)
[2017-12-23] MEDS: Nicotine 21 MG PATCH.TD24 TD SCH (08:20)
[2017-12-23] MEDS: Thiamine (B-1) 100 MG TABLET PO SCH (08:21)
[2017-12-23] MEDS: Pregabalin 75 MG CAPSULE PO SCH ×2 (08:21→20:00)
[2017-12-23] MEDS: Acetaminophen/Butalbital/CaffeineTABLET PO PRN (08:21)
[2017-12-23] MEDS: amLODIPine 5 MG TABLET PO SCH (08:22)
[2017-12-23] MEDS: Magnesium Oxide 400 MG TABLET PO SCH (08:22)
--- NOTE | 2017-12-23 16:04 | Internal Med Progress Note ---
Date of Encounter: 12/23/17 Time of Encounter: 16:02 - Assessment and plan (1) Suicidal behavior with attempted self-injury Current Visit: Yes Status: Resolved Assessment and plan: presneted with self-inflicted superficial wrist laceration. Evaluated by psychiatry who did not feel patient was arm to self or others. Continue Seroquel and Lexapro per psychiatry recommendations. (2) Suicidal ideation Current Visit: Yes Status: Acute Assessment and plan: presented with SI after drinking. He was evaluated by psychiatry who did not feel he was imminent danger to himself or others. music worker assisting with inpatient placement (3) Bipolar disorder with severe depression Current Visit: Yes Status: Acute Assessment and plan: He is severely depressed. We will start antidepressants. Appreciate psychiatry recommendations. He does not require inpatient psychiatric admission. (4) Abdominal pain Current Visit: No Status: Acute Assessment and plan: History of alcoholism with his history of alcoholism abdominal pain likely secondary to acute gastritis. Lipase normal. Cont PPI. Qualifiers: Abdominal location: periumbilical Qualified Code(s): R10.33 - Periumbilical pain (5) Alcohol withdrawal Current Visit: Yes Status: Acute Assessment and plan: CIWA protocol. Continue with thiamine and folic acid. Multivitamins. Librium taper. Qualifiers: Complication of substance-induced condition: uncomplicated Qualified Code(s ): F10.230 - Alcohol dependence with withdrawal, uncomplicated (6) DVT prophylaxis Current Visit: No Status: Acute Assessment and plan: ambulation - Subjective Interval history: Seen and examined at bedside. Patient is known to me from multiple previous admissions. Says he feels better and is requesting discharge home. Advised patient that he started [place] and required Ativan and he would not be discharge at this time. Strongly encouraged patient to allow transfer to inpatient [place] drug rehabilitation however patient is refusing. Discussed with school social worker and patient apparently is agreeable to looking into other treatment options. - Constitutional Vitals: Temp Pulse Resp BP Pulse Ox 96.7 F L 88 18 124/85 96 12/23/17 11:23 12/23/17 11:23 12/23/17 11:23 12/23/17 11:23 12/23/17 11:23 General appearance: Present: A&O X 3, morbidly obese, answers questions appropriately - Head Head exam: Present: atraumatic, normocephalic - Eye Eye exam: Present: PERRL, conjuntiva pink, sclera anicteric Pupils: Present: PERRL - Neck Neck exam general surgery: Present: supple, trachea midline. Absent: lymphadenopathy - Respiratory Respiratory exam: Present: CTAB. Absent: accessory muscle use, rales, rhonchi, wheezes - Cardiovascular Cardiovascular exam: Present: RRR, +S1, +S2. Absent: diastolic murmur, gallop, rubs, systolic murmur - GI/Abdominal GI/Abdominal exam: Present: normal bowel sounds, soft, no peritoneal signs. Absent: distended, tenderness - Extremities Exam Extremities exam: Present: warm, radial pulses palpable and symmetrical. Absent : calf tenderness, cyanotic, pedal edema - Neurological Exam Neurological exam: Present: CN II-XII intact, oriented X3, no focal deficits. Absent: pronater drift, facial droop, speech deficit - Skin Skin exam: Present: dry, intact Internal Medicine: Result - Labs CBC & Chem 7: 12/21/17 03:21 12/21/17 03:21 Consult Discharge Plan - Plan Referrals: NONE,PCP [Primary Care Provider] -
[2017-12-23] MEDS: Temazepam 15 MG CAPSULE PO PRN (20:00)
[2017-12-24] MEDS: *HR* OxyCODONE/APAP 5/325 TABLET PO PRN ×3 (01:36→14:45)
[2017-12-24 05:02] LABS: Hematocrit 40.5 % (37.5-50.1); Hemoglobin 12.3 g/dL (12.9-16.9); Mean Corpuscular HGB Conc 30.4 g/dL (31.6-35.5); Mean Corpuscular Hemoglobin 27.1 pg (28.0-33.3); Mean Corpuscular Volume 89.2 fL (83.0-100.0); Platelet Count 123 K/mcL (140-400); Red Blood Count 4.54 M/mcL (4.19-5.50); Red Cell Distribution Width 16.7 % (11.5-14.5)
[2017-12-24 05:29] LABS: BUN/Creatinine Ratio 10 (6-26); Blood Urea Nitrogen 10 mg/dL (8-23); Calcium 9.5 mg/dL (8.6-10.3); Carbon Dioxide 25 mEq/L (23-29); Chloride 105 mEq/L (98-107); Glucose 116 mg/dL (70-105); Osmolality,Calculated 284 (280-300); Potassium 4.1 mEq/L (3.5-5.1); Sodium 137 mEq/L (136-145); eGFR For African Americans > 60 (> 60); eGFR For Non-African Americans > 60 (> 60)
[2017-12-24] MEDS: Budesonide/Formoterol 160/4.5 MDI IH SCH (08:07)
[2017-12-24] MEDS: Pregabalin 75 MG CAPSULE PO SCH (08:45)
[2017-12-24] MEDS: amLODIPine 5 MG TABLET PO SCH (08:45)
[2017-12-24] MEDS: Magnesium Oxide 400 MG TABLET PO SCH (08:45)
[2017-12-24] MEDS: Thiamine (B-1) 100 MG TABLET PO SCH (08:46)
[2017-12-24] MEDS: Nicotine 21 MG PATCH.TD24 TD SCH (08:47)
[2017-12-24] MEDS: *HR* LORazepam 2 MG/ML VIAL IVP PRN ×2 (09:02→14:47)
[2017-12-24 15:26] VITALS: BP 124/77
--- NOTE | 2017-12-24 15:33 | Discharge Summary ---
Date of Encounter: 12/24/17 Time of Encounter: 15:30 - Discharge Diagnosis (1) Suicidal behavior with attempted self-injury Priority: Primary Status: Resolved (2) Suicidal ideation Priority: Primary Status: Resolved (3) Bipolar disorder with severe depression Priority: Primary Status: Acute (4) Abdominal pain Priority: Secondary Status: Chronic Qualifiers: Abdominal location: periumbilical Qualified Code(s): R10.33 - Periumbilical pain (5) Alcohol withdrawal Priority: Primary Status: Acute Qualifiers: Complication of substance-induced condition: uncomplicated Qualified Code(s ): F10.230 - Alcohol dependence with withdrawal, uncomplicated Hospital course: Mr. Chen is a 62 year old male with PMH of COPD, GERD, hyperlipidemia, hypertension, migraine, myocardial infarction, ploysubstance abuse, depression and alcohol abuse who is well known to [facility] for recurrent admissions related to alcohol intoxication who presented to [facility] on 12/21/17 with suicidal ideation and an apparent suicidal attempt by cutting wrist. He is also found to be acutely intoxicated. He was evaluated by psychiatry who did not feel he was admitted direct himself or others. He was started on Seroquel and Lexapro per psychiatry recommendations. Regarding his alcohol intoxication he was monitored with CINJ protocol. He returned to his baseline on 12/24/17 and requested discharge home. I had multiple discussions with patient regarding the importance of inpatient alcohol/drug rehabilitation; patient was agreeable at first however he ultimately decided to discharge home with [facility]. He is at high risk for readmission due to noncompliance and continued substance/alcohol use. - Time Spent with Patient Total time spent providing and/or coordinating discharge services: - Discharge Medications Prescriptions: Escitalopram [Lexapro] 10 mg PO DAILY #30 tablet Quetiapine Fumarate [Seroquel] 100 mg PO HS #30 tablet Home Medications: Amlodipine Besylate 10 mg PO DAILY 12/06/17 [History] Budesonide/Formoterol 160/4.5 [Symbicort 160/4.5] 2 puff IH BID 12/06/17 [ History] Lipase/Protease/Amylase [Ananya Kern 12,000 Units Capsule] 3 cap PO TIDWM 12/06/17 [History] Omeprazole [PriLOSEC] 20 mg PO DAILY 12/06/17 [History] Pregabalin [Lyrica] 150 mg PO BID 12/06/17 [History] Albuterol Sulfate [Albuterol Inhaler] 2 puff IH Q4H PRN 12/13/17 [History] Cholecalciferol (D-3) [Vitamin D] 1,000 unit PO DAILY 12/13/17 [History] Cyanocobalamin (Vitamin B-12) [Vitamin B-12] 500 mcg PO DAILY 12/13/17 [History] Folic Acid 1 mg PO DAILY 12/13/17 [History] L. Acidophilus/Pectin, [place] [Acidophilus Probiotic Capsule] 1 each PO BID [History] Magnesium Oxide [Mag-Ox] 400 mg PO DAILY 12/13/17 [History] SUMAtriptan succinate [Imitrex] 6 mg SQ Q2H PRN MDD 12 mg 12/13/17 [History] Thiamine (B-1) [Vitamin B-1] 100 mg PO DAILY 12/13/17 [History] Amitriptyline [Elavil] 75 mg PO HS 12/21/17 [History] Escitalopram [Lexapro] 10 mg PO DAILY #30 tablet 12/24/17 [Rx] Quetiapine Fumarate [Seroquel] 100 mg PO HS #30 tablet 12/24/17 [Rx] Allergies/Adverse Reactions: 3 Allergy/AdvReac Type Severity Reaction Status Date / Time Buspirone [From BuSpar] AdvReac See Verified 11/25/17 11:16 Comments tramadol AdvReac See Verified 11/25/17 11:16 Comments Date of admission: 12/21/17 17:25 Primary care physician: PCP NONE Discharging clinician: Karyn Hansen Anticipated date of discharge: 12/24/17 - Constitutional Vitals: Temp Pulse Resp BP Pulse Ox 97.4 F L 86 16 124/77 95 12/24/17 15:25 12/24/17 15:25 12/24/17 15:25 12/24/17 15:25 12/24/17 15:25 General appearance: Present: A&O X 3, morbidly obese, answers questions appropriately - Patient Status Disposition: Home, Self-Care Condition: Good Functional capacity at discharge: independent ambulation Overall status at discharge: patient is back to baseline - Discharge Instructions Instructions: Abuse of Alcohol (DC), Quetiapine (By mouth), Escitalopram (By mouth), Suicide Prevention for Adults (DC), Depression (DC) Follow Up With: NONE,PCP [Primary Care Provider] - [place],PCP [Non-Partnered Physician] - 12/29/17 12:30 pm (Transport will pick you up at 12pm- Call them with questions at [phone].) - Diet and Activity Activity: increase activity as tolerated Diet: advance to your usual diet
== END 2017-12-24 16:36 | disposition home or self-care (01) | DRG 897 ==
LOC: 3BNU 02:04 → EMEROO 02:04 → SUATTDRO 17:25 → 3BNU 17:44
PROVIDERS: ADMIT Internal Medicine; ATTEND Internal Medicine

== ENCOUNTER 2018-01-06 22:09 | Observation (INO) ==
[2018-01-06 22:41] LABS: Bilirubin,Urine Negative (Negative); Blood,Urine Negative (Negative); Clarity,Urine Clear (Clear); Color,Urine Yellow (Yellow); Glucose,Urine (UA) Normal (Normal); Ketones,Urine Negative (Negative); Leukocyte Esterase,Urine Trace (Negative); Nitrite,Urine Negative (Negative); PH,Urine 6.5 pH Units (5.0-8.0); Protein,Urine Negative (Neg-Trace); Specific Gravity,Urine 1.015 (1.010-1.025); Urobilinogen,Urine Normal (Normal)
[2018-01-06 22:43] LABS: Bacteria,Urine None Seen per hpf (None-Few); Hyaline Casts,Urine None Seen per lpf (None-Few); Squamous Epithelial Cell,Urine None Seen per lpf (None-Few)
[2018-01-06 22:44] LABS: Basophils # 0.1 K/mcL (0.0-0.2); Eosinophils # 0.2 K/mcL (0.0-0.6); Eosinophils % 4.7 %; Hemoglobin 13.5 g/dL (12.9-16.9); Immature Granulocytes % 0.6 % (0-4); Lymphocytes # 1.8 K/mcL (0.6-4.6); Lymphocytes % 35.4 %; Mean Corpuscular HGB Conc 31.4 g/dL (31.6-35.5); Mean Corpuscular Hemoglobin 26.8 pg (28.0-33.3); Mean Corpuscular Volume 85.5 fL (83.0-100.0); Mean Platelet Volume 10.1 fL (9.4-12.4); Monocytes # 0.4 K/mcL (0.0-1.3); Monocytes % 7.3 %; Neutrophils # 2.6 K/mcL (1.6-8.9); Platelet Count 147 K/mcL (140-400); Red Blood Count 5.03 M/mcL (4.19-5.50)
[2018-01-06 22:46] LABS: Amphetamine Screen,Urine Negative ng/mL (Cutoff=1000); Barbiturate Screen,Urine Negative ng/mL (Cutoff=200); Benzodiazepines Screen,Urine Positive ng/mL (Cutoff=200); Cannabinoid Screen,Urine Negative ng/mL (Cutoff = 50); Cocaine Screen,Urine Negative ng/mL (Cutoff= 300); Opiate Screen,Urine Negative ng/mL (Cutoff=300); Phencyclidine Screen,Urine Negative ng/mL (Cutoff=25)
[2018-01-06] MEDS ORDERED: *HR* LORazepam 1 MG TABLET PO ONE (22:49)
[2018-01-06] MEDS ORDERED: Thiamine (B-1) 200 MG/2 ML VIAL IM ONE (22:50)
--- NOTE | 2018-01-06 22:57 | Emergency Department Note ---
Disposition Clinical Impression: Suicidal ideation Disposition: Still a Patient Condition: Undetermined Referrals: NONE,PCP [Primary Care Provider] - Forms: ED Satisfaction Letter Psych HPI - General Chief Complaint: ED Psychiatric Symptoms Stated Complaint: SI Time Seen by Provider: 01/06/18 22:17 Source: EMS Mode of arrival: EMS Limitations: no limitations Nursing Notes Reviewed: Yes Vital Signs Reviewed: Yes - History of Present Illness HPI Narrative: 62-year-old patient with a history of EtOH abuse, polysubstance abuse, anemia, psychiatric disorders, schizophrenia, bipolar, hypertension, pancreatitis, suicidal ideation/suicidal attempts, acute kidney injury, and A. fib RVR presents emergency department for suicidal ideation. Patient states today he drank a fifth of liquor from the grocery store and started having abdominal pain which led him feel be better off if he were committing suicide, he got scared that he was thinking these thoughts [facility] recovery [facility] and EMS to bring him here for psychiatric evaluation. Patient states he still feels suicidal and thinks it would be better if he were no longer living. He states he has had chest pain off and on for 6 months, severe abdominal pain which is reminiscent of pancreatic insufficiency and abdominal surgeries, and on top of his schizophrenia and bipolar makes him no longer wants to live. His last drink was at 1930 today. Patient is very well-known to facilities. He has had many admissions for both EtOH withdrawal and suicidal ideation. Pt complaint: suicidal ideation, feels depressed, other (EtOH intoxication) If medical clearance, reason: psychiatric condition Onset (ago): Just [employer] Duration: constant, changing over time History of similar episodes: Yes Improves with: medication Worsens with: alcohol, drug use Context: recent alcohol abuse, recent drug abuse Alleged intoxication: Yes Associated Psychiatric Symptoms: suicidal ideation Associated symptoms: Reports: nausea Traumatic symptoms: denies traumatic injury Treatments prior to arrival: none Self harm or harm to others: admits thoughts of self harm, has plan - Related Data Home Medications Medication Instructions Recorded Confirmed Amlodipine Besylate 10 mg PO DAILY 12/06/17 12/21/17 Budesonide/Formoterol 160/4.5 2 puff IH BID 12/06/17 12/21/17 [Symbicort 160/4.5] Lipase/Protease/Amylase [Ananya Kern 3 cap PO TIDWM 12/06/17 12/21/17 12,000 Units Capsule] Omeprazole [PriLOSEC] 20 mg PO DAILY 12/06/17 12/21/17 Pregabalin [Lyrica] 150 mg PO BID 12/06/17 12/21/17 Albuterol Sulfate [Albuterol 2 puff IH Q4H PRN 12/13/17 12/21/17 Inhaler] Cholecalciferol (D-3) [Vitamin D] 1,000 unit PO DAILY 12/13/17 12/21/17 Cyanocobalamin (Vitamin B-12) 500 mcg PO DAILY 12/13/17 12/21/17 [Vitamin B-12] Folic Acid 1 mg PO DAILY 12/13/17 12/21/17 L. Acidophilus/Pectin, [place] 1 each PO BID 12/13/17 12/21/17 [Acidophilus Probiotic Capsule] Magnesium Oxide [Mag-Ox] 400 mg PO DAILY 12/13/17 12/21/17 SUMAtriptan succinate [Imitrex] 6 mg SQ Q2H PRN MDD 12 mg 12/13/17 12/21/17 Thiamine (B-1) [Vitamin B-1] 100 mg PO DAILY 12/13/17 12/21/17 Amitriptyline [Elavil] 75 mg PO HS 12/21/17 12/21/17 Previous Rx's Medication Instructions Recorded Escitalopram [Lexapro] 10 mg PO DAILY #30 tablet 12/24/17 Quetiapine Fumarate [Seroquel] 100 mg PO HS #30 tablet 12/24/17 Allergies Allergy/AdvReac Type Severity Reaction Status Date / Time Buspirone [From BuSpar] AdvReac See Verified 11/25/17 11:16 Comments tramadol AdvReac See Verified 11/25/17 11:16 Comments All systems ED: reviewed and negative except as stated. Review of Systems: As Per HPI Constitutional: Denies: fever, chills, weakness ENT ED: Denies: ear pain, throat pain, dental pain, dysphagia Cardiovascular: Reports: chest pain. Denies: palpitations, edema, syncope Respiratory: Denies: cough, dyspnea, wheezes, hemoptysis, stridor Gastrointestinal: Reports: abdominal pain, nausea. Denies: vomiting, diarrhea, constipation Neurological: Reports: headache. Denies: weakness, numbness, paresthesias, confusion, abnormal gait Psychiatric: Reports: suicidal thoughts Past Medical History - Past Medical History Attestation: Yes The following information was validated with the patient. Source: patient Medical history: Reports: COPD, GERD, hyperlipidemia, hypertension, migraine, myocardial infarction, other Surgical history: Reports: appendectomy, cholecystectomy, other Psychiatric history: Reports: anxiety, bipolar, prior suicide attempt, previous psychiatric hospitalization - Social History Smoking Status: Current every day smoker Smokeless Tobacco Status: No Alcohol use: Reports: heavy, recent Drug use: Reports: none Physical Exam - General Limitations: no limitations General appearance: alert Course Course Narrative: 62-year-old patient with a history of EtOH abuse, polysubstance abuse, anemia, psychiatric disorders, schizophrenia, bipolar, hypertension, pancreatitis, suicidal ideation/suicidal attempts, acute kidney injury, and A. fib RVR presents emergency department for suicidal ideation. Patient states today he drank a fifth of liquor from the grocery store and started having abdominal pain which led him feel be better off if he were committing suicide, he got scared that he was thinking these thoughts and [facility] and recovery technician and EMS to bring him here for psychiatric evaluation. Patient states he still feels suicidal and thinks it would be better if he were no longer living. He states he has had chest pain off and on for 6 months, severe abdominal pain which is reminiscent of pancreatic insufficiency and abdominal surgeries, and on top of his schizophrenia and bipolar makes him no longer wants to live. His last drink was at 1930 today. Assessment unremarkable. Patient appears intoxicated, mumbling incoherently at times but is alert and oriented 3. Denies any real complaints right now he states he previously had abdominal pain, chest pain over months it is intermittent. We will obtain basic labs as well as CT of the abdomen and pelvis and chest x- ray for medical clearance. We will reevaluate after. - Reevaluation(s) Reevaluation #1: Patient now complaining of headache. Declined acetaminophen and Benadryl. Patient states he rather just leave. Went and spoke with patient, patient states that he was calling somebody leave. I asked patient why he was going [facility] and he said drink more alcohol last and after that and he stated "kill myself" the patient will be on no less than 4 separate times during this interaction that he still maintains suicidal ideation. Patient was attempting to leave. At this point we decided to pink slip patient for his own safety 2 mg of lorazepam IM ordered. Prior to giving the Ativan patient became very aggressive and violent towards staff requiring restraining. He is attempting to strike at staff, leave the premises. Antipsychotic ordered as well as the Ativan to assist with withdrawal. Patient remains in restraints. All labs, CT, chest x-ray benign. Patient medically cleared. We will await EtOH level to be decidual range prior to notifying psychiatric services. Time: 00:20 Reevaluation #2: Patient resting quietly at this time. Still remains at bedside. No acute distress noted. Time: 01:29 Reevaluation #3: Patient has rested comfortably on my. No further behavioral disturbances. One he has been notified to come and see patient, they state he is still too sedated. Report given to Mehrdad WALKER for [facility] shift change. Time: 06:00 Vital Signs Temperature 98.4 F 01/06/18 22:12 Pulse Rate 81 01/06/18 22:12 Respiratory Rate 16 01/06/18 22:12 Blood Pressure 141/92 01/06/18 22:12 O2 Sat by Pulse Oximetry 95 01/06/18 22:12 Temperature 98.4 F 01/06/18 22:12 Pulse Rate 96 01/07/18 04:35 Respiratory Rate 14 01/07/18 04:35 Blood Pressure 180/98 01/07/18 04:35 O2 Sat by Pulse Oximetry 95 01/07/18 04:35 Oxygen Delivery Oxygen Delivery Room Air Psych - Lab Data Result diagrams: 01/06/18 22:33 01/06/18 22:33 Lab Results 01/06/18 01/06/18 01/06/18 Range/Units 22:31 22:31 22:33 WBC 5.1 (4.3-11.1) K/mcL RBC 5.03 (4.19-5.50) M/mcL Hgb 13.5 (12.9-16.9) g/dL Hct 43.0 (37.5-50.1) % MCV 85.5 (83.0-100.0) fL MCH 26.8 L (28.0-33.3) pg MCHC 31.4 L (31.6-35.5) g/dL RDW 17.0 H (11.5-14.5) % Plt Count 147 (140-400) K/mcL MPV 10.1 (9.4-12.4) fL Immature Gran % 0.6 (0-4) % Seg Neutrophils % 51.0 % Lymphocytes % 35.4 % Monocytes % 7.3 % Eosinophils % 4.7 % Basophils % 1.0 % Neutrophils # 2.6 (1.6-8.9) K/mcL Lymphocytes # 1.8 (0.6-4.6) K/mcL Monocytes # 0.4 (0.0-1.3) K/mcL Eosinophils # 0.2 (0.0-0.6) K/mcL Basophils # 0.1 (0.0-0.2) K/mcL Sodium (136-145) mEq/L Potassium (3.5-5.1) mEq/L Chloride (98-107) mEq/L Carbon Dioxide (23-29) mEq/L BUN (8-23) mg/dL Creatinine (0.70-1.30) mg/dL Est GFR ( Amer) (> 60) Est GFR (Non-Af Amer) (> 60) BUN/Creatinine Ratio (6-26) Glucose (70-105) mg/dL Calculated Osmolality (280-300) Lactic Acid (0.5-2.2) mmol/L Calcium (8.6-10.3) mg/dL Troponin I (< 0.04) ng/mL Lipase (11-82) Units/L Urine Color Yellow (Yellow) Urine Clarity Clear (Clear) Urine pH 6.5 (5.0-8.0) pH Units Ur Specific Red Level 1.015 (1.010-1.025) Urine Protein Negative (Neg-Trace) mg/dL Urine Glucose (UA) Normal (Normal) mg/dL Urine Ketones Negative (Negative) mg/dL Urine Blood Negative (Negative) Urine Nitrite Negative (Negative) Urine Bilirubin Negative (Negative) Urine Urobilinogen Normal (Normal) mg/dL Ur Leukocyte Esterase Trace H (Negative) Urine Microscopic RBC 5-15 H (0-3) per hpf Urine Microscopic WBC 3-5 H (0-3) per hpf Ur Squamous Epith Cells None Seen (None-Few) per lpf Urine Bacteria None Seen (None-Few) per hpf Hyaline Casts None Seen (None-Few) per lpf Salicylates (15.0-30.0) mg/dL Urine Opiates Screen Negative (Egxeyy=464) ng/mL Acetaminophen (10-30) mcg/mL Ur Barbiturates Screen Negative (Kutdye=713) ng/mL Ur Phencyclidine Scrn Negative (Cutoff=25) ng/mL Ur Amphetamines Screen Negative (Jdzylo=8582) ng/mL U Benzodiazepines Scrn Positive H (Wxudet=714) ng/mL Urine Cocaine Screen Negative (Cutoff= 300) ng/mL U Marijuana (THC) Screen Negative (Cutoff = 50) ng/mL Ethyl Alcohol (0-10) mg/dL 01/06/18 01/06/18 01/06/18 Range/Units 22:33 23:06 23:06 WBC (4.3-11.1) K/mcL RBC (4.19-5.50) M/mcL Hgb (12.9-16.9) g/dL Hct (37.5-50.1) % MCV (83.0-100.0) fL MCH (28.0-33.3) pg MCHC (31.6-35.5) g/dL RDW (11.5-14.5) % Plt Count (140-400) K/mcL MPV (9.4-12.4) fL Immature Gran % (0-4) % Seg Neutrophils % % Lymphocytes % % Monocytes % % Eosinophils % % Basophils % % Neutrophils # (1.6-8.9) K/mcL Lymphocytes # (0.6-4.6) K/mcL Monocytes # (0.0-1.3) K/mcL Eosinophils # (0.0-0.6) K/mcL Basophils # (0.0-0.2) K/mcL Sodium 138 (136-145) mEq/L Potassium 3.9 (3.5-5.1) mEq/L Chloride 106 (98-107) mEq/L Carbon Dioxide 21 L (23-29) mEq/L BUN 8 (8-23) mg/dL Creatinine 0.87 (0.70-1.30) mg/dL Est GFR ( Amer) > 60 (> 60) Est GFR (Non-Af Amer) > 60 (> 60) BUN/Creatinine Ratio 9 (6-26) Glucose 100 (70-105) mg/dL Calculated Osmolality 284 (280-300) Lactic Acid 1.9 (0.5-2.2) mmol/L Calcium 9.5 (8.6-10.3) mg/dL Troponin I (< 0.04) ng/mL Lipase 23 (11-82) Units/L Urine Color (Yellow) Urine Clarity (Clear) Urine pH (5.0-8.0) pH Units Ur Specific Red Level (1.010-1.025) Urine Protein (Neg-Trace) mg/dL Urine Glucose (UA) (Normal) mg/dL Urine Ketones (Negative) mg/dL Urine Blood (Negative) Urine Nitrite (Negative) Urine Bilirubin (Negative) Urine Urobilinogen (Normal) mg/dL Ur Leukocyte Esterase (Negative) Urine Microscopic RBC (0-3) per hpf Urine Microscopic WBC (0-3) per hpf Ur Squamous Epith Cells (None-Few) per lpf Urine Bacteria (None-Few) per hpf Hyaline Casts (None-Few) per lpf Salicylates < 5.0 L (15.0-30.0) mg/dL Urine Opiates Screen (Ruavgd=770) ng/mL Acetaminophen < 1.0 L (10-30) mcg/mL Ur Barbiturates Screen (Vvzbqh=075) ng/mL Ur Phencyclidine Scrn (Cutoff=25) ng/mL Ur Amphetamines Screen (Bzvvqv=4115) ng/mL U Benzodiazepines Scrn (Hamhnw=228) ng/mL Urine Cocaine Screen (Cutoff= 300) ng/mL U Marijuana (THC) Screen (Cutoff = 50) ng/mL Ethyl Alcohol 203 H (0-10) mg/dL 01/06/18 01/07/18 Range/Units 23:06 02:48 WBC (4.3-11.1) K/mcL RBC (4.19-5.50) M/mcL Hgb (12.9-16.9) g/dL Hct (37.5-50.1) % MCV (83.0-100.0) fL MCH (28.0-33.3) pg MCHC (31.6-35.5) g/dL RDW (11.5-14.5) % Plt Count (140-400) K/mcL MPV (9.4-12.4) fL Immature Gran % (0-4) % Seg Neutrophils % % Lymphocytes % % Monocytes % % Eosinophils % % Basophils % % Neutrophils # (1.6-8.9) K/mcL Lymphocytes # (0.6-4.6) K/mcL Monocytes # (0.0-1.3) K/mcL Eosinophils # (0.0-0.6) K/mcL Basophils # (0.0-0.2) K/mcL Sodium (136-145) mEq/L Potassium (3.5-5.1) mEq/L Chloride (98-107) mEq/L Carbon Dioxide (23-29) mEq/L BUN (8-23) mg/dL Creatinine (0.70-1.30) mg/dL Est GFR ( Amer) (> 60) Est GFR (Non-Af Amer) (> 60) BUN/Creatinine Ratio (6-26) Glucose (70-105) mg/dL Calculated Osmolality (280-300) Lactic Acid (0.5-2.2) mmol/L Calcium (8.6-10.3) mg/dL Troponin I < 0.03 (< 0.04) ng/mL Lipase (11-82) Units/L Urine Color (Yellow) Urine Clarity (Clear) Urine pH (5.0-8.0) pH Units Ur Specific Red Level (1.010-1.025) Urine Protein (Neg-Trace) mg/dL Urine Glucose (UA) (Normal) mg/dL Urine Ketones (Negative) mg/dL Urine Blood (Negative) Urine Nitrite (Negative) Urine Bilirubin (Negative) Urine Urobilinogen (Normal) mg/dL Ur Leukocyte Esterase (Negative) Urine Microscopic RBC (0-3) per hpf Urine Microscopic WBC (0-3) per hpf Ur Squamous Epith Cells (None-Few) per lpf Urine Bacteria (None-Few) per hpf Hyaline Casts (None-Few) per lpf Salicylates (15.0-30.0) mg/dL Urine Opiates Screen (Svmeql=660) ng/mL Acetaminophen (10-30) mcg/mL Ur Barbiturates Screen (Oyakkg=575) ng/mL Ur Phencyclidine Scrn (Cutoff=25) ng/mL Ur Amphetamines Screen (Zirbua=5696) ng/mL U Benzodiazepines Scrn (Dfezgw=211) ng/mL Urine Cocaine Screen (Cutoff= 300) ng/mL U Marijuana (THC) Screen (Cutoff = 50) ng/mL Ethyl Alcohol 77 H (0-10) mg/dL Psychiatric Medical Clearance - Medical Clearance Checklist Medical History: Alcohol intoxication (Resolved) Altered mental state (Resolved) Opioid intoxication (Acute) Microcytic anemia (Chronic) Iron deficiency anemia (Chronic) Respiratory acidosis (Resolved) Alcohol withdrawal (Acute) Chest pain (Acute) Psychiatric disorder (Chronic) Gastritis and duodenitis (Acute) Mood disorder (Chronic) Accelerated essential hypertension (Acute) Altered mental status (Acute) History of alcohol abuse (Chronic) Anemia (Chronic) Acute kidney injury (Resolved) Marijuana abuse (Acute) History of substance abuse (Chronic) Acute respiratory failure (Acute) Overdose (Acute) Rhabdomyolysis (Acute) Encephalopathy (Acute) Tracheobronchitis (Acute) Schizophrenia (Chronic) Bipolar disorder, unspecified (Chronic) Injury of left foot including toes (Acute) Fracture of left great toe (Acute) HTN (hypertension) (Chronic) Anxiety disorder (Chronic) Infected nailbed of toe (Acute) Suicidal ideation (Resolved) Alcohol intoxication (Resolved) Toxic effect of alcohol, intentional self-harm (Acute) Adjustment reaction with anxiety and depression (Acute) Alcoholic encephalopathy (Chronic) Chronic back pain (Chronic) Failure to thrive syndrome, adult (Chronic) Hypotension (Acute) Schizoaffective disorder, bipolar type without good prognostic features (Chronic ) Perforated abdominal viscus (Acute) Sepsis (Acute) Pancytopenia (Acute) Hypoxemia (Resolved) Encephalopathy (Acute) Hypokalemia (Acute) Protein malnutrition (Chronic) Substance abuse (Chronic) Physical deconditioning (Chronic) Pancreatic insufficiency (Chronic) Pancreatic insufficiency (Chronic) Chest pain (Acute) Acute kidney injury (Resolved) Chest pain (Acute) Nausea & vomiting (Resolved) Hand paresthesia (Acute) Drug abuse (Chronic) Tobacco abuse (Chronic) Paresthesias (Chronic) Microcytic hypochromic anemia (Acute) HTN (hypertension) (Chronic) Withdrawal symptoms, alcohol (Acute) Hypertension (Chronic) DVT prophylaxis (Acute) Fall (Acute) Encephalopathy acute (Acute) SHELLEY (acute kidney injury) (Resolved) NSTEMI (non-ST elevated myocardial infarction) (Acute) Encephalopathy chronic (Acute) Hypokalemia (Acute) Elevated troponin (Acute) COPD (chronic obstructive pulmonary disease) (Chronic) Depression (Chronic) Alcohol withdrawal (Acute) SHELLEY (acute kidney injury) (Acute) Coronary artery disease (Chronic) Essential hypertension (Chronic) Alcohol dependence (Chronic) Combative behavior (Acute) Abdominal pain (Acute) Alcohol intoxication (Acute) Alcohol dependence (Chronic) Bipolar disorder in remission (Chronic) Toxic metabolic encephalopathy (Acute) Delirium due to conditions classified elsewhere (Acute) Alcohol abuse with alcohol-induced disorder (Chronic) Alcohol dependence with acute alcoholic intoxication and delirium (Acute) Alcohol dependence with acute alcoholic intoxication with complication (Acute) Morbid obesity with BMI of 40.0-44.9, adult (Chronic) Angina at rest (Acute) Alcohol withdrawal (Acute) Tremor (Acute) Acute, mixed level of activity, alcohol withdrawal delirium (Acute) Chest pain, rule out acute myocardial infarction (Acute) Chest pain with low risk of acute coronary syndrome (Acute) Acute chest wall pain (Acute) Accelerated secondary hypertension (Acute) DTs (delirium tremens) (Acute) Chronic headaches (Chronic) Medication care plan discussed with patient (Acute) Sepsis (Acute) Hepatitis C (Chronic) Atrial fibrillation (Acute) Elevated WBCs (Acute) Pleural effusion (Acute) Sepsis (Resolved) Parapneumonic effusion (Acute) ETOH abuse (Acute) COPD (chronic obstructive pulmonary disease) (Chronic) Pancreatic insufficiency (Chronic) Coronary artery disease (Acute) DVT prophylaxis (Acute) Leukocytosis (Acute) Bandemia (Resolved) Metabolic encephalopathy (Acute) Hypoalbuminemia (Acute) Anemia (Chronic) Chest tube in place (Resolved) Need for management of chest tube (Acute) Hematoma (Acute) Fatty liver (Acute) Hypoalbuminemia (Chronic) Acute hypoxemic respiratory failure (Resolved) Empyema lung (Acute) Subcutaneous emphysema (Resolved) Pain (Chronic) Atypical pneumonia (Acute) Lung abscess (Chronic) Abnormal CT of the chest (Acute) ETOH abuse (Acute) Metabolic acidosis (Acute) Diarrhea (Acute) Abdominal pain (Chronic) Pancreatitis, alcoholic, acute (Acute) Chest pain (Acute) Alcohol intoxication (Acute) Pancreatitis (Chronic) Hypertension (Chronic) Acute alcohol intoxication (Acute) Lung mass (Acute) Atrial fibrillation and flutter (Acute) Atrial flutter with rapid ventricular response (Acute) Atrial fib/flutter, transient (Acute) Alcohol withdrawal delirium (Acute) Atypical chest pain (Acute) Physical deconditioning (Acute) Alcohol intoxication (Acute) Chronic schizophrenia (Acute) Suicidal ideation (Resolved) CAP (community acquired pneumonia) (Acute) Bipolar disorder (Chronic) Rib pain on right side (Acute) Alcohol use disorder (Acute) Hypertension (Chronic) Alcohol withdrawal (Resolved) Alcohol withdrawal (Resolved) Chest pain (Acute) DVT prophylaxis (Acute) COPD (chronic obstructive pulmonary disease) (Chronic) Fall (Acute) Hypomagnesemia (Acute) Hypophosphatemia (Acute) DVT prophylaxis (Acute) Transaminitis (Chronic) Gastritis (Resolved) Gastroenteritis (Resolved) Alcoholic hepatitis (Acute) Chronic leukopenia (Acute) Acute diastolic (congestive) heart failure (Acute) Diverticulitis (Chronic) Urinary retention (Acute) Hepatitis C (Chronic) Abrasion of left wrist (Acute) Suicidal behavior with attempted self-injury (Resolved) Anemia (Acute) History of substance abuse (Acute) Hepatitis C (Acute) Migraine (Acute) Bipolar disorder with severe depression (Acute) Abdominal pain (Inactive) Abdominal pain (Inactive) Abnormal liver function tests (Inactive) Acute anxiety (Inactive) Acute retention of urine (Inactive) Alcohol abuse (Inactive) Alcohol abuse (Inactive) Alcohol dependence (Inactive) Alcohol intoxication (Inactive) Alcohol intoxication (Inactive) Alcohol intoxication (Inactive) Alcohol withdrawal (Inactive) Alcoholic intoxication (Inactive) Alcoholism (Inactive) Alcoholism /alcohol abuse (Inactive) Anemia (Inactive) Atypical chest pain (Inactive) COPD (chronic obstructive pulmonary disease) (Inactive) Cellulitis (Inactive) Cellulitis of forearm, left (Inactive) Chest pain (Inactive) Chest pain (Inactive) Chest wall pain following surgery (Inactive) Chronic renal failure (Inactive) Closed fracture of left distal radius (Inactive) Depression (Inactive) Depression (Inactive) Elevated blood pressure reading without diagnosis of hypertension (Inactive) Boggs catheter in place (Inactive) Fracture of wrist (Inactive) Fracture of wrist (Inactive) Leukopenia (Inactive) Localized swelling of both lower extremities (Inactive) Lung infiltrate on CT (Inactive) Migraine (Inactive) Pedal edema (Inactive) Problem with Boggs catheter (Inactive) Pruritus (Inactive) Pruritus (Inactive) Radial fracture (Inactive) Suicidal ideation (Inactive) No Social History Section defined Current Vitals: Last Vital Signs Temp 98.4 F 01/06/18 22:12 Pulse 96 01/07/18 04:35 Resp 14 01/07/18 04:35 BP 180/98 01/07/18 04:35 Pulse Ox 95 01/07/18 04:35 Psychiatric Lab Panel: Drug Levels and Toxicity 01/06/18 01/06/18 01/07/18 22:31 22:33 02:48 Urine Opiates Screen Negative Acetaminophen < 1.0 L Ur Barbiturates Screen Negative Ur Phencyclidine Scrn Negative Ur Amphetamines Screen Negative U Benzodiazepines Scrn Positive H Urine Cocaine Screen Negative U Marijuana (THC) Screen Negative Ethyl Alcohol 203 H 77 H Abnormal Labs: Abnormal lab results MCH 26.8 pg (28.0-33.3) L 01/06/18 22:33 MCHC 31.4 g/dL (31.6-35.5) L 01/06/18 22:33 RDW 17.0 % (11.5-14.5) H 01/06/18 22:33 Carbon Dioxide 21 mEq/L (23-29) L 01/06/18 22:33 Ur Leukocyte Esterase Trace (Negative) H 01/06/18 22:31 Urine Microscopic RBC 5-15 per hpf (0-3) H 01/06/18 22:31 Urine Microscopic WBC 3-5 per hpf (0-3) H 01/06/18 22:31 Salicylates < 5.0 mg/dL (15.0-30.0) L 01/06/18 22:33 Acetaminophen < 1.0 mcg/mL (10-30) L 01/06/18 22:33 U Benzodiazepines Scrn Positive ng/mL (Cacngg=113) H 01/06/18 22:31 Ethyl Alcohol 77 mg/dL (0-10) H 01/07/18 02:48 Statement of Medical Clearance: I have evaluated the patient, reviewed diagnostic information, and certify that the patient's medical condition is sufficiently stable that transfer to the psychiatric unit does not pose a significant risk of deterioration. S.B.Brandan - S.B.A.Lucian Situation: Demographics, MOA Background: Presenting Complaint, Relevant PMH, Meds, & Allergies Assessment: Vital Signs, Course and respsone to treatment, Exam Concerns, Patient/Family Expectation, Pertinant Lab Results, Outstanding Labs Recommendation: Barrier(s) to disposition, Recommendation based on pending studies, treatments, or consults S.B.A.R. Report Given to: Alexander Ca Repor Time: 06:00
[2018-01-06] MEDS ORDERED: Multivit/Ca/Min/Fe/FA 1 TAB TABLET PO ONE (23:00)
[2018-01-06 23:02] LABS: Ethanol 203 mg/dL (0-10)
[2018-01-06 23:08] LABS: BUN/Creatinine Ratio 9 (6-26); Blood Urea Nitrogen 8 mg/dL (8-23); Calcium 9.5 mg/dL (8.6-10.3); Carbon Dioxide 21 mEq/L (23-29); Chloride 106 mEq/L (98-107); Glucose 100 mg/dL (70-105); Osmolality,Calculated 284 (280-300); Potassium 3.9 mEq/L (3.5-5.1); Sodium 138 mEq/L (136-145); eGFR For African Americans > 60 (> 60); eGFR For Non-African Americans > 60 (> 60)
[2018-01-06 23:16] LABS: Acetaminophen < 1.0 mcg/mL (10-30); Salicylate < 5.0 mg/dL (15.0-30.0)
--- NOTE | 2018-01-06 23:33 | Emergency Department Note ---
Disposition Clinical Impression: Suicidal ideation Disposition: Admitted As Inpatient Condition: Good General Adult HPI - General Chief complaint: ED Psychiatric Symptoms Stated complaint: SI Time Seen by Provider: 01/06/18 22:17 Source: EMS Mode of arrival: EMS Limitations: no limitations - History of Present Illness Pain Scale: 9 - Related Data Home Medications Medication Instructions Recorded Confirmed Amlodipine Besylate 10 mg PO DAILY 12/06/17 01/07/18 Budesonide/Formoterol 160/4.5 2 puff IH BID 12/06/17 01/07/18 [Symbicort 160/4.5] Lipase/Protease/Amylase [Creon Dr 3 cap PO TIDWM 12/06/17 01/07/18 12,000 Units Capsule] Omeprazole [PriLOSEC] 20 mg PO DAILY 12/06/17 01/07/18 Albuterol Sulfate [Albuterol 2 puff IH Q4H PRN 12/13/17 01/07/18 Inhaler] Cholecalciferol (D-3) [Vitamin D] 1,000 unit PO DAILY 12/13/17 01/07/18 Cyanocobalamin (Vitamin B-12) 500 mcg PO DAILY 12/13/17 01/07/18 [Vitamin B-12] Folic Acid 1 mg PO DAILY 12/13/17 01/07/18 L. Acidophilus/Pectin, [place] 1 each PO BID 12/13/17 01/07/18 [Acidophilus Probiotic Capsule] Magnesium Oxide [Mag-Ox] 400 mg PO DAILY 12/13/17 01/07/18 SUMAtriptan succinate [Imitrex] 6 mg SQ Q2H PRN MDD 12 mg 12/13/17 01/07/18 Thiamine (B-1) [Vitamin B-1] 100 mg PO DAILY 12/13/17 01/07/18 Gabapentin [Neurontin] 600 mg PO TID 01/07/18 01/07/18 SUMAtriptan succinate [Imitrex] 25 mg PO Q2H PRN 01/07/18 01/07/18 Previous Rx's Medication Instructions Recorded Escitalopram [Lexapro] 10 mg PO DAILY #30 tablet 12/24/17 Quetiapine Fumarate [Seroquel] 100 mg PO HS #30 tablet 12/24/17 Allergies Allergy/AdvReac Type Severity Reaction Status Date / Time Buspirone [From BuSpar] AdvReac See Verified 11/25/17 11:16 Comments tramadol AdvReac See Verified 11/25/17 11:16 Comments Past Medical History - Past Medical History Medical history: Reports: COPD, GERD, hyperlipidemia, hypertension, migraine, myocardial infarction, other Surgical history: Reports: appendectomy, cholecystectomy, other Psychiatric history: Reports: anxiety, bipolar, prior suicide attempt, previous psychiatric hospitalization - Social History Smoking Status: Current every day smoker Smokeless Tobacco Status: No Alcohol use: Reports: heavy, recent Drug use: Reports: none Physical Exam - General Limitations: no limitations General appearance: alert Course Vital Signs Temperature 98.4 F 01/06/18 22:12 Pulse Rate 81 01/06/18 22:12 Respiratory Rate 16 01/06/18 22:12 Blood Pressure 141/92 01/06/18 22:12 O2 Sat by Pulse Oximetry 95 01/06/18 22:12 Temperature 97.5 F L 01/07/18 21:00 Pulse Rate 94 01/07/18 21:00 Respiratory Rate 20 01/07/18 21:00 Blood Pressure 174/118 01/07/18 21:00 O2 Sat by Pulse Oximetry 96 01/07/18 11:18 Oxygen Delivery Oxygen Delivery Room Air Medical Decision Making - Lab Data Result diagrams: 01/06/18 22:33 01/06/18 22:33 Lab Results 01/06/18 01/06/18 01/06/18 Range/Units 22:31 22:31 22:33 WBC 5.1 (4.3-11.1) K/mcL RBC 5.03 (4.19-5.50) M/mcL Hgb 13.5 (12.9-16.9) g/dL Hct 43.0 (37.5-50.1) % MCV 85.5 (83.0-100.0) fL MCH 26.8 L (28.0-33.3) pg MCHC 31.4 L (31.6-35.5) g/dL RDW 17.0 H (11.5-14.5) % Plt Count 147 (140-400) K/mcL MPV 10.1 (9.4-12.4) fL Immature Gran % 0.6 (0-4) % Seg Neutrophils % 51.0 % Lymphocytes % 35.4 % Monocytes % 7.3 % Eosinophils % 4.7 % Basophils % 1.0 % Neutrophils # 2.6 (1.6-8.9) K/mcL Lymphocytes # 1.8 (0.6-4.6) K/mcL Monocytes # 0.4 (0.0-1.3) K/mcL Eosinophils # 0.2 (0.0-0.6) K/mcL Basophils # 0.1 (0.0-0.2) K/mcL Sodium (136-145) mEq/L Potassium (3.5-5.1) mEq/L Chloride (98-107) mEq/L Carbon Dioxide (23-29) mEq/L BUN (8-23) mg/dL Creatinine (0.70-1.30) mg/dL Est GFR ( Amer) (> 60) Est GFR (Non-Af Amer) (> 60) BUN/Creatinine Ratio (6-26) Glucose (70-105) mg/dL Calculated Osmolality (280-300) Lactic Acid (0.5-2.2) mmol/L Calcium (8.6-10.3) mg/dL Troponin I (< 0.04) ng/mL Lipase (11-82) Units/L Urine Color Yellow (Yellow) Urine Clarity Clear (Clear) Urine pH 6.5 (5.0-8.0) pH Units Ur Specific [place] 1.015 (1.010-1.025) Urine Protein Negative (Neg-Trace) mg/dL Urine Glucose (UA) Normal (Normal) mg/dL Urine Ketones Negative (Negative) mg/dL Urine Blood Negative (Negative) Urine Nitrite Negative (Negative) Urine Bilirubin Negative (Negative) Urine Urobilinogen Normal (Normal) mg/dL Ur Leukocyte Esterase Trace H (Negative) Urine Microscopic RBC 5-15 H (0-3) per hpf Urine Microscopic WBC 3-5 H (0-3) per hpf Ur Squamous Epith Cells None Seen (None-Few) per lpf Urine Bacteria None Seen (None-Few) per hpf Hyaline Casts None Seen (None-Few) per lpf Salicylates (15.0-30.0) mg/dL Urine Opiates Screen Negative (Dajtlb=346) ng/mL Acetaminophen (10-30) mcg/mL Ur Barbiturates Screen Negative (Itvurk=648) ng/mL Ur Phencyclidine Scrn Negative (Cutoff=25) ng/mL Ur Amphetamines Screen Negative (Ehckcv=4880) ng/mL U Benzodiazepines Scrn Positive H (Zadhyx=493) ng/mL Urine Cocaine Screen Negative (Cutoff= 300) ng/mL U Marijuana (THC) Screen Negative (Cutoff = 50) ng/mL Ethyl Alcohol (0-10) mg/dL 01/06/18 01/06/18 01/06/18 Range/Units 22:33 23:06 23:06 WBC (4.3-11.1) K/mcL RBC (4.19-5.50) M/mcL Hgb (12.9-16.9) g/dL Hct (37.5-50.1) % MCV (83.0-100.0) fL MCH (28.0-33.3) pg MCHC (31.6-35.5) g/dL RDW (11.5-14.5) % Plt Count (140-400) K/mcL MPV (9.4-12.4) fL Immature Gran % (0-4) % Seg Neutrophils % % Lymphocytes % % Monocytes % % Eosinophils % % Basophils % % Neutrophils # (1.6-8.9) K/mcL Lymphocytes # (0.6-4.6) K/mcL Monocytes # (0.0-1.3) K/mcL Eosinophils # (0.0-0.6) K/mcL Basophils # (0.0-0.2) K/mcL Sodium 138 (136-145) mEq/L Potassium 3.9 (3.5-5.1) mEq/L Chloride 106 (98-107) mEq/L Carbon Dioxide 21 L (23-29) mEq/L BUN 8 (8-23) mg/dL Creatinine 0.87 (0.70-1.30) mg/dL Est GFR ( Amer) > 60 (> 60) Est GFR (Non-Af Amer) > 60 (> 60) BUN/Creatinine Ratio 9 (6-26) Glucose 100 (70-105) mg/dL Calculated Osmolality 284 (280-300) Lactic Acid 1.9 (0.5-2.2) mmol/L Calcium 9.5 (8.6-10.3) mg/dL Troponin I (< 0.04) ng/mL Lipase 23 (11-82) Units/L Urine Color (Yellow) Urine Clarity (Clear) Urine pH (5.0-8.0) pH Units Ur Specific [place] (1.010-1.025) Urine Protein (Neg-Trace) mg/dL Urine Glucose (UA) (Normal) mg/dL Urine Ketones (Negative) mg/dL Urine Blood (Negative) Urine Nitrite (Negative) Urine Bilirubin (Negative) Urine Urobilinogen (Normal) mg/dL Ur Leukocyte Esterase (Negative) Urine Microscopic RBC (0-3) per hpf Urine Microscopic WBC (0-3) per hpf Ur Squamous Epith Cells (None-Few) per lpf Urine Bacteria (None-Few) per hpf Hyaline Casts (None-Few) per lpf Salicylates < 5.0 L (15.0-30.0) mg/dL Urine Opiates Screen (Ialkgv=110) ng/mL Acetaminophen < 1.0 L (10-30) mcg/mL Ur Barbiturates Screen (Xdlbac=026) ng/mL Ur Phencyclidine Scrn (Cutoff=25) ng/mL Ur Amphetamines Screen (Hxrcmy=7945) ng/mL U Benzodiazepines Scrn (Fmepzk=248) ng/mL Urine Cocaine Screen (Cutoff= 300) ng/mL U Marijuana (THC) Screen (Cutoff = 50) ng/mL Ethyl Alcohol 203 H (0-10) mg/dL 01/06/18 01/07/18 Range/Units 23:06 02:48 WBC (4.3-11.1) K/mcL RBC (4.19-5.50) M/mcL Hgb (12.9-16.9) g/dL Hct (37.5-50.1) % MCV (83.0-100.0) fL MCH (28.0-33.3) pg MCHC (31.6-35.5) g/dL RDW (11.5-14.5) % Plt Count (140-400) K/mcL MPV (9.4-12.4) fL Immature Gran % (0-4) % Seg Neutrophils % % Lymphocytes % % Monocytes % % Eosinophils % % Basophils % % Neutrophils # (1.6-8.9) K/mcL Lymphocytes # (0.6-4.6) K/mcL Monocytes # (0.0-1.3) K/mcL Eosinophils # (0.0-0.6) K/mcL Basophils # (0.0-0.2) K/mcL Sodium (136-145) mEq/L Potassium (3.5-5.1) mEq/L Chloride (98-107) mEq/L Carbon Dioxide (23-29) mEq/L BUN (8-23) mg/dL Creatinine (0.70-1.30) mg/dL Est GFR ( Amer) (> 60) Est GFR (Non-Af Amer) (> 60) BUN/Creatinine Ratio (6-26) Glucose (70-105) mg/dL Calculated Osmolality (280-300) Lactic Acid (0.5-2.2) mmol/L Calcium (8.6-10.3) mg/dL Troponin I < 0.03 (< 0.04) ng/mL Lipase (11-82) Units/L Urine Color (Yellow) Urine Clarity (Clear) Urine pH (5.0-8.0) pH Units Ur Specific [place] (1.010-1.025) Urine Protein (Neg-Trace) mg/dL Urine Glucose (UA) (Normal) mg/dL Urine Ketones (Negative) mg/dL Urine Blood (Negative) Urine Nitrite (Negative) Urine Bilirubin (Negative) Urine Urobilinogen (Normal) mg/dL Ur Leukocyte Esterase (Negative) Urine Microscopic RBC (0-3) per hpf Urine Microscopic WBC (0-3) per hpf Ur Squamous Epith Cells (None-Few) per lpf Urine Bacteria (None-Few) per hpf Hyaline Casts (None-Few) per lpf Salicylates (15.0-30.0) mg/dL Urine Opiates Screen (Cnfbbt=508) ng/mL Acetaminophen (10-30) mcg/mL Ur Barbiturates Screen (Kkaneu=280) ng/mL Ur Phencyclidine Scrn (Cutoff=25) ng/mL Ur Amphetamines Screen (Jdyhha=0431) ng/mL U Benzodiazepines Scrn (Ojrcml=069) ng/mL Urine Cocaine Screen (Cutoff= 300) ng/mL U Marijuana (THC) Screen (Cutoff = 50) ng/mL Ethyl Alcohol 77 H (0-10) mg/dL Attestation Statement - Attestation Attestation: For this encounter, I have reviewed the [employer] or PA documentation, treatment plan, and medical decision making; and I have had face to face time with this patient. [id number] time provided Patient sleeping at the time of my exam. We are attempting to clear the patient medically for behavioral evaluation but he is objectively intoxicated. At this time we will plan a repeat blood alcohol level with eventual plans to have the patient evaluated by the behavioral service
[2018-01-06] MEDS ORDERED: Acetaminophen 325 MG TABLET PO ONE (23:54)
[2018-01-07] MEDS ORDERED: *HR* LORazepam 2 MG/ML VIAL IM ONE (00:23)
[2018-01-07] MEDS ORDERED: Ziprasidone injection 20 MG/ML VIAL IM ONE (00:29)
--- NOTE | 2018-01-07 06:32 | Emergency Department Note ---
Disposition Clinical Impression: Suicidal ideation Disposition: Admitted As Inpatient Condition: Good Referrals: NONE,PCP [Primary Care Provider] - Forms: ED Satisfaction Letter Time of Disposition: 09:09 Psych HPI - General Chief Complaint: ED Psychiatric Symptoms Stated Complaint: SI Time Seen by Provider: 01/06/18 22:17 Source: EMS Mode of arrival: EMS - History of Present Illness Duration: constant, changing over time Improves with: medication Worsens with: alcohol, drug use Associated symptoms: Reports: nausea Treatments prior to arrival: none - Related Data Home Medications Medication Instructions Recorded Confirmed Amlodipine Besylate 10 mg PO DAILY 12/06/17 12/21/17 Budesonide/Formoterol 160/4.5 2 puff IH BID 12/06/17 12/21/17 [Symbicort 160/4.5] Lipase/Protease/Amylase [Creon Dr 3 cap PO TIDWM 12/06/17 12/21/17 12,000 Units Capsule] Omeprazole [PriLOSEC] 20 mg PO DAILY 12/06/17 12/21/17 Pregabalin [Lyrica] 150 mg PO BID 12/06/17 12/21/17 Albuterol Sulfate [Albuterol 2 puff IH Q4H PRN 12/13/17 12/21/17 Inhaler] Cholecalciferol (D-3) [Vitamin D] 1,000 unit PO DAILY 12/13/17 12/21/17 Cyanocobalamin (Vitamin B-12) 500 mcg PO DAILY 12/13/17 12/21/17 [Vitamin B-12] Folic Acid 1 mg PO DAILY 12/13/17 12/21/17 L. Acidophilus/Pectin, [place] 1 each PO BID 12/13/17 12/21/17 [Acidophilus Probiotic Capsule] Magnesium Oxide [Mag-Ox] 400 mg PO DAILY 12/13/17 12/21/17 SUMAtriptan succinate [Imitrex] 6 mg SQ Q2H PRN MDD 12 mg 12/13/17 12/21/17 Thiamine (B-1) [Vitamin B-1] 100 mg PO DAILY 12/13/17 12/21/17 Amitriptyline [Elavil] 75 mg PO HS 12/21/17 12/21/17 Previous Rx's Medication Instructions Recorded Escitalopram [Lexapro] 10 mg PO DAILY #30 tablet 12/24/17 Quetiapine Fumarate [Seroquel] 100 mg PO HS #30 tablet 12/24/17 Allergies Allergy/AdvReac Type Severity Reaction Status Date / Time Buspirone [From BuSpar] AdvReac See Verified 11/25/17 11:16 Comments tramadol AdvReac See Verified 11/25/17 11:16 Comments Constitutional: Denies: fever, chills, weakness ENT ED: Denies: ear pain, throat pain, dental pain, dysphagia Cardiovascular: Reports: chest pain. Denies: palpitations, edema, syncope Respiratory: Denies: cough, dyspnea, wheezes, hemoptysis, stridor Gastrointestinal: Reports: abdominal pain, nausea. Denies: vomiting, diarrhea, constipation Neurological: Reports: headache. Denies: weakness, numbness, paresthesias, confusion, abnormal gait Psychiatric: Reports: suicidal thoughts Past Medical History - Past Medical History Medical history: Reports: COPD, GERD, hyperlipidemia, hypertension, migraine, myocardial infarction, other Surgical history: Reports: appendectomy, cholecystectomy, other Psychiatric history: Reports: anxiety, bipolar, prior suicide attempt, previous psychiatric hospitalization - Social History Smoking Status: Current every day smoker Smokeless Tobacco Status: No Alcohol use: Reports: heavy, recent Drug use: Reports: none Physical Exam - General Limitations: no limitations General appearance: alert Course Course Narrative: 0600: I have assumed care of this patient from [facility] due to mid-level shift change. Please see Ginny's documentation for care performed prior to my arrival. Briefly, this is more and oriented 62-year-old male that presented or alcohol intoxication. After he was medically cleared, he began to make threats of suicidal intent. A [facility] consult was ordered however when the [facility] came to the department to evaluate this patient, they found him to be too sedated. During the night, he had to be pharmacologically sedated due to behavioral outburst. At this time, we are pending formal evaluation by the inpatient psychiatric unit. Disposition pending at this time. 0900: I spoke with EVELYNE Gomez from [facility]. Jason states that Dr. Joseph will admit the patient to [facility] for further inpatient psychiatric evaluation pending bed availability. Vital Signs Temperature 98.4 F 01/06/18 22:12 Pulse Rate 81 01/06/18 22:12 Respiratory Rate 16 01/06/18 22:12 Blood Pressure 141/92 01/06/18 22:12 O2 Sat by Pulse Oximetry 95 01/06/18 22:12 Temperature 98.4 F 01/06/18 22:12 Pulse Rate 96 01/07/18 04:35 Respiratory Rate 14 01/07/18 04:35 Blood Pressure 180/98 01/07/18 04:35 O2 Sat by Pulse Oximetry 95 01/07/18 04:35 Oxygen Delivery Oxygen Delivery Room Air Psych - Lab Data Lab results reviewed: Yes I reviewed the patient's lab results. Lab results narrative: Laboratory Last Values WBC 5.1 K/mcL (4.3-11.1) 01/06/18 22:33 RBC 5.03 M/mcL (4.19-5.50) 01/06/18 22:33 Hgb 13.5 g/dL (12.9-16.9) 01/06/18 22:33 Hct 43.0 % (37.5-50.1) 01/06/18 22:33 MCV 85.5 fL (83.0-100.0) 01/06/18 22:33 MCH 26.8 pg (28.0-33.3) L 01/06/18 22:33 MCHC 31.4 g/dL (31.6-35.5) L 01/06/18 22:33 RDW 17.0 % (11.5-14.5) H 01/06/18 22:33 Plt Count 147 K/mcL (140-400) 01/06/18 22:33 MPV 10.1 fL (9.4-12.4) 01/06/18 22:33 Immature Gran % 0.6 % (0-4) 01/06/18 22:33 Seg Neutrophils % 51.0 % 01/06/18 22:33 Lymphocytes % 35.4 % 01/06/18 22:33 Monocytes % 7.3 % 01/06/18 22:33 Eosinophils % 4.7 % 01/06/18 22:33 Basophils % 1.0 % 01/06/18 22:33 Neutrophils # 2.6 K/mcL (1.6-8.9) 01/06/18 22: Lymphocytes # 1.8 K/mcL (0.6-4.6) 01/06/18 22:33 Monocytes # 0.4 K/mcL (0.0-1.3) 01/06/18 22:33 Eosinophils # 0.2 K/mcL (0.0-0.6) 01/06/18 22:33 Basophils # 0.1 K/mcL (0.0-0.2) 01/06/18 22:33 Sodium 138 mEq/L (136-145) 01/06/18 22:33 Potassium 3.9 mEq/L (3.5-5.1) 01/06/18 22:33 Chloride 106 mEq/L (98-107) 01/06/18 22:33 Carbon Dioxide 21 mEq/L (23-29) L 01/06/18 22:33 BUN 8 mg/dL (8-23) 01/06/18 22:33 Creatinine 0.87 mg/dL (0.70-1.30) 01/06/18 22:33 Est GFR ( Amer) > 60 (> 60) 01/06/18 22:33 Est GFR (Non-Af Amer) > 60 (> 60) 01/06/18 22:33 BUN/Creatinine Ratio 9 (6-26) 01/06/18 22:33 Glucose 100 mg/dL (70-105) 01/06/18 22:33 Calculated Osmolality 284 (280-300) 01/06/18 22:33 Lactic Acid 1.9 mmol/L (0.5-2.2) 01/06/18 23:06 Calcium 9.5 mg/dL (8.6-10.3) 01/06/18 22:33 Troponin I < 0.03 ng/mL (< 0.04) 01/06/18 23:06 Lipase 23 Units/L (11-82) 01/06/18 23:06 Urine Color Yellow (Yellow) 01/06/18 22:31 Urine Clarity Clear (Clear) 01/06/18 22:31 Urine pH 6.5 pH Units (5.0-8.0) 01/06/18 22:31 Ur Specific [place] 1.015 (1.010-1.025) 01/06/18 22:31 Urine Protein Negative mg/dL (Neg-Trace) 01/06/18 22: Urine Glucose (UA) Normal mg/dL (Normal) 01/06/18 22: Urine Ketones Negative mg/dL (Negative) 01/06/18 22:31 Urine Blood Negative (Negative) 01/06/18 22:31 Urine Nitrite Negative (Negative) 01/06/18 22:31 Urine Bilirubin Negative (Negative) 01/06/18 22:31 Urine Urobilinogen Normal mg/dL (Normal) 01/06/18 22:31 Ur Leukocyte Esterase Trace (Negative) H 01/06/18 22:31 Urine Microscopic RBC 5-15 per hpf (0-3) H 01/06/18 22:31 Urine Microscopic WBC 3-5 per hpf (0-3) H 01/06/18 22:31 Ur Squamous Epith Cells None Seen per lpf (None-Few) 01/06/18 22:31 Urine Bacteria None Seen per hpf (None-Few) 01/06/18 22: Hyaline Casts None Seen per lpf (None-Few) 01/06/18 22:31 Salicylates < 5.0 mg/dL (15.0-30.0) L 01/06/18 22:33 Urine Opiates Screen Negative ng/mL (Ofqolp=437) 01/06/18 22:31 Acetaminophen < 1.0 mcg/mL (10-30) L 01/06/18 22:33 Ur Barbiturates Screen Negative ng/mL (Agknvn=486) 01/06/18 22:31 Ur Phencyclidine Scrn Negative ng/mL (Cutoff=25) 01/06/18 22:31 Ur Amphetamines Screen Negative ng/mL (Oqvzkr=1753) 01/06/18 22:31 U Benzodiazepines Scrn Positive ng/mL (Rbadmc=410) H 01/06/18 22:31 Urine Cocaine Screen Negative ng/mL (Cutoff= 300) 01/06/18 22:31 U Marijuana (THC) Screen Negative ng/mL (Cutoff = 50) 01/06/18 22:31 Ethyl Alcohol 77 mg/dL (0-10) H 01/07/18 02:48 Result diagrams: 01/06/18 22:33 01/06/18 22:33 Lab Results 01/06/18 01/06/18 01/06/18 Range/Units 22:31 22:31 22:33 WBC 5.1 (4.3-11.1) K/mcL RBC 5.03 (4.19-5.50) M/mcL Hgb 13.5 (12.9-16.9) g/dL Hct 43.0 (37.5-50.1) % MCV 85.5 (83.0-100.0) fL MCH 26.8 L (28.0-33.3) pg MCHC 31.4 L (31.6-35.5) g/dL RDW 17.0 H (11.5-14.5) % Plt Count 147 (140-400) K/mcL MPV 10.1 (9.4-12.4) fL Immature Gran % 0.6 (0-4) % Seg Neutrophils % 51.0 % Lymphocytes % 35.4 % Monocytes % 7.3 % Eosinophils % 4.7 % Basophils % 1.0 % Neutrophils # 2.6 (1.6-8.9) K/mcL Lymphocytes # 1.8 (0.6-4.6) K/mcL Monocytes # 0.4 (0.0-1.3) K/mcL Eosinophils # 0.2 (0.0-0.6) K/mcL Basophils # 0.1 (0.0-0.2) K/mcL Sodium (136-145) mEq/L Potassium (3.5-5.1) mEq/L Chloride (98-107) mEq/L Carbon Dioxide (23-29) mEq/L BUN (8-23) mg/dL Creatinine (0.70-1.30) mg/dL Est GFR ( Amer) (> 60) Est GFR (Non-Af Amer) (> 60) BUN/Creatinine Ratio (6-26) Glucose (70-105) mg/dL Calculated Osmolality (280-300) Lactic Acid (0.5-2.2) mmol/L Calcium (8.6-10.3) mg/dL Troponin I (< 0.04) ng/mL Lipase (11-82) Units/L Urine Color Yellow (Yellow) Urine Clarity Clear (Clear) Urine pH 6.5 (5.0-8.0) pH Units Ur Specific [place] 1.015 (1.010-1.025) Urine Protein Negative (Neg-Trace) mg/dL Urine Glucose (UA) Normal (Normal) mg/dL Urine Ketones Negative (Negative) mg/dL Urine Blood Negative (Negative) Urine Nitrite Negative (Negative) Urine Bilirubin Negative (Negative) Urine Urobilinogen Normal (Normal) mg/dL Ur Leukocyte Esterase Trace H (Negative) Urine Microscopic RBC 5-15 H (0-3) per hpf Urine Microscopic WBC 3-5 H (0-3) per hpf Ur Squamous Epith Cells None Seen (None-Few) per lpf Urine Bacteria None Seen (None-Few) per hpf Hyaline Casts None Seen (None-Few) per lpf Salicylates (15.0-30.0) mg/dL Urine Opiates Screen Negative (Mrvntr=212) ng/mL Acetaminophen (10-30) mcg/mL Ur Barbiturates Screen Negative (Xpnejs=346) ng/mL Ur Phencyclidine Scrn Negative (Cutoff=25) ng/mL Ur Amphetamines Screen Negative (Jtxfnd=0880) ng/mL U Benzodiazepines Scrn Positive H (Zhnmca=677) ng/mL Urine Cocaine Screen Negative (Cutoff= 300) ng/mL U Marijuana (THC) Screen Negative (Cutoff = 50) ng/mL Ethyl Alcohol (0-10) mg/dL 01/06/18 01/06/18 01/06/18 Range/Units 22:33 23:06 23:06 WBC (4.3-11.1) K/mcL RBC (4.19-5.50) M/mcL Hgb (12.9-16.9) g/dL Hct (37.5-50.1) % MCV (83.0-100.0) fL MCH (28.0-33.3) pg MCHC (31.6-35.5) g/dL RDW (11.5-14.5) % Plt Count (140-400) K/mcL MPV (9.4-12.4) fL Immature Gran % (0-4) % Seg Neutrophils % % Lymphocytes % % Monocytes % % Eosinophils % % Basophils % % Neutrophils # (1.6-8.9) K/mcL Lymphocytes # (0.6-4.6) K/mcL Monocytes # (0.0-1.3) K/mcL Eosinophils # (0.0-0.6) K/mcL Basophils # (0.0-0.2) K/mcL Sodium 138 (136-145) mEq/L Potassium 3.9 (3.5-5.1) mEq/L Chloride 106 (98-107) mEq/L Carbon Dioxide 21 L (23-29) mEq/L BUN 8 (8-23) mg/dL Creatinine 0.87 (0.70-1.30) mg/dL Est GFR ( Amer) > 60 (> 60) Est GFR (Non-Af Amer) > 60 (> 60) BUN/Creatinine Ratio 9 (6-26) Glucose 100 (70-105) mg/dL Calculated Osmolality 284 (280-300) Lactic Acid 1.9 (0.5-2.2) mmol/L Calcium 9.5 (8.6-10.3) mg/dL Troponin I (< 0.04) ng/mL Lipase 23 (11-82) Units/L Urine Color (Yellow) Urine Clarity (Clear) Urine pH (5.0-8.0) pH Units Ur Specific [place] (1.010-1.025) Urine Protein (Neg-Trace) mg/dL Urine Glucose (UA) (Normal) mg/dL Urine Ketones (Negative) mg/dL Urine Blood (Negative) Urine Nitrite (Negative) Urine Bilirubin (Negative) Urine Urobilinogen (Normal) mg/dL Ur Leukocyte Esterase (Negative) Urine Microscopic RBC (0-3) per hpf Urine Microscopic WBC (0-3) per hpf Ur Squamous Epith Cells (None-Few) per lpf Urine Bacteria (None-Few) per hpf Hyaline Casts (None-Few) per lpf Salicylates < 5.0 L (15.0-30.0) mg/dL Urine Opiates Screen (Apmbny=766) ng/mL Acetaminophen < 1.0 L (10-30) mcg/mL Ur Barbiturates Screen (Iqhwkx=965) ng/mL Ur Phencyclidine Scrn (Cutoff=25) ng/mL Ur Amphetamines Screen (Rounep=4249) ng/mL U Benzodiazepines Scrn (Epjnuk=310) ng/mL Urine Cocaine Screen (Cutoff= 300) ng/mL U Marijuana (THC) Screen (Cutoff = 50) ng/mL Ethyl Alcohol 203 H (0-10) mg/dL 01/06/18 01/07/18 Range/Units 23:06 02:48 WBC (4.3-11.1) K/mcL RBC (4.19-5.50) M/mcL Hgb (12.9-16.9) g/dL Hct (37.5-50.1) % MCV (83.0-100.0) fL MCH (28.0-33.3) pg MCHC (31.6-35.5) g/dL RDW (11.5-14.5) % Plt Count (140-400) K/mcL MPV (9.4-12.4) fL Immature Gran % (0-4) % Seg Neutrophils % % Lymphocytes % % Monocytes % % Eosinophils % % Basophils % % Neutrophils # (1.6-8.9) K/mcL Lymphocytes # (0.6-4.6) K/mcL Monocytes # (0.0-1.3) K/mcL Eosinophils # (0.0-0.6) K/mcL Basophils # (0.0-0.2) K/mcL Sodium (136-145) mEq/L Potassium (3.5-5.1) mEq/L Chloride (98-107) mEq/L Carbon Dioxide (23-29) mEq/L BUN (8-23) mg/dL Creatinine (0.70-1.30) mg/dL Est GFR ( Amer) (> 60) Est GFR (Non-Af Amer) (> 60) BUN/Creatinine Ratio (6-26) Glucose (70-105) mg/dL Calculated Osmolality (280-300) Lactic Acid (0.5-2.2) mmol/L Calcium (8.6-10.3) mg/dL Troponin I < 0.03 (< 0.04) ng/mL Lipase (11-82) Units/L Urine Color (Yellow) Urine Clarity (Clear) Urine pH (5.0-8.0) pH Units Ur Specific [place] (1.010-1.025) Urine Protein (Neg-Trace) mg/dL Urine Glucose (UA) (Normal) mg/dL Urine Ketones (Negative) mg/dL Urine Blood (Negative) Urine Nitrite (Negative) Urine Bilirubin (Negative) Urine Urobilinogen (Normal) mg/dL Ur Leukocyte Esterase (Negative) Urine Microscopic RBC (0-3) per hpf Urine Microscopic WBC (0-3) per hpf Ur Squamous Epith Cells (None-Few) per lpf Urine Bacteria (None-Few) per hpf Hyaline Casts (None-Few) per lpf Salicylates (15.0-30.0) mg/dL Urine Opiates Screen (Jxpclk=072) ng/mL Acetaminophen (10-30) mcg/mL Ur Barbiturates Screen (Ouiuws=664) ng/mL Ur Phencyclidine Scrn (Cutoff=25) ng/mL Ur Amphetamines Screen (Dcvgcx=4329) ng/mL U Benzodiazepines Scrn (Udtnco=568) ng/mL Urine Cocaine Screen (Cutoff= 300) ng/mL U Marijuana (THC) Screen (Cutoff = 50) ng/mL Ethyl Alcohol 77 H (0-10) mg/dL Psychiatric Medical Clearance - Medical Clearance Checklist Medical History: Alcohol intoxication (Resolved) Altered mental state (Resolved) Opioid intoxication (Acute) Microcytic anemia (Chronic) Iron deficiency anemia (Chronic) Respiratory acidosis (Resolved) Alcohol withdrawal (Acute) Chest pain (Acute) Psychiatric disorder (Chronic) Gastritis and duodenitis (Acute) Mood disorder (Chronic) Accelerated essential hypertension (Acute) Altered mental status (Acute) History of alcohol abuse (Chronic) Anemia (Chronic) Acute kidney injury (Resolved) Marijuana abuse (Acute) History of substance abuse (Chronic) Acute respiratory failure (Acute) Overdose (Acute) Rhabdomyolysis (Acute) Encephalopathy (Acute) Tracheobronchitis (Acute) Schizophrenia (Chronic) Bipolar disorder, unspecified (Chronic) Injury of left foot including toes (Acute) Fracture of left great toe (Acute) HTN (hypertension) (Chronic) Anxiety disorder (Chronic) Infected nailbed of toe (Acute) Suicidal ideation (Resolved) Alcohol intoxication (Resolved) Toxic effect of alcohol, intentional self-harm (Acute) Adjustment reaction with anxiety and depression (Acute) Alcoholic encephalopathy (Chronic) Chronic back pain (Chronic) Failure to thrive syndrome, adult (Chronic) Hypotension (Acute) Schizoaffective disorder, bipolar type without good prognostic features (Chronic ) Perforated abdominal viscus (Acute) Sepsis (Acute) Pancytopenia (Acute) Hypoxemia (Resolved) Encephalopathy (Acute) Hypokalemia (Acute) Protein malnutrition (Chronic) Substance abuse (Chronic) Physical deconditioning (Chronic) Pancreatic insufficiency (Chronic) Pancreatic insufficiency (Chronic) Chest pain (Acute) Acute kidney injury (Resolved) Chest pain (Acute) Nausea & vomiting (Resolved) Hand paresthesia (Acute) Drug abuse (Chronic) Tobacco abuse (Chronic) Paresthesias (Chronic) Microcytic hypochromic anemia (Acute) HTN (hypertension) (Chronic) Withdrawal symptoms, alcohol (Acute) Hypertension (Chronic) DVT prophylaxis (Acute) Fall (Acute) Encephalopathy acute (Acute) SHELLEY (acute kidney injury) (Resolved) NSTEMI (non-ST elevated myocardial infarction) (Acute) Encephalopathy chronic (Acute) Hypokalemia (Acute) Elevated troponin (Acute) COPD (chronic obstructive pulmonary disease) (Chronic) Depression (Chronic) Alcohol withdrawal (Acute) SHELLEY (acute kidney injury) (Acute) Coronary artery disease (Chronic) Essential hypertension (Chronic) Alcohol dependence (Chronic) Combative behavior (Acute) Abdominal pain (Acute) Alcohol intoxication (Acute) Alcohol dependence (Chronic) Bipolar disorder in remission (Chronic) Toxic metabolic encephalopathy (Acute) Delirium due to conditions classified elsewhere (Acute) Alcohol abuse with alcohol-induced disorder (Chronic) Alcohol dependence with acute alcoholic intoxication and delirium (Acute) Alcohol dependence with acute alcoholic intoxication with complication (Acute) Morbid obesity with BMI of 40.0-44.9, adult (Chronic) Angina at rest (Acute) Alcohol withdrawal (Acute) Tremor (Acute) Acute, mixed level of activity, alcohol withdrawal delirium (Acute) Chest pain, rule out acute myocardial infarction (Acute) Chest pain with low risk of acute coronary syndrome (Acute) Acute chest wall pain (Acute) Accelerated secondary hypertension (Acute) DTs (delirium tremens) (Acute) Chronic headaches (Chronic) Medication care plan discussed with patient (Acute) Sepsis (Acute) Hepatitis C (Chronic) Atrial fibrillation (Acute) Elevated WBCs (Acute) Pleural effusion (Acute) Sepsis (Resolved) Parapneumonic effusion (Acute) ETOH abuse (Acute) COPD (chronic obstructive pulmonary disease) (Chronic) Pancreatic insufficiency (Chronic) Coronary artery disease (Acute) DVT prophylaxis (Acute) Leukocytosis (Acute) Bandemia (Resolved) Metabolic encephalopathy (Acute) Hypoalbuminemia (Acute) Anemia (Chronic) Chest tube in place (Resolved) Need for management of chest tube (Acute) Hematoma (Acute) Fatty liver (Acute) Hypoalbuminemia (Chronic) Acute hypoxemic respiratory failure (Resolved) Empyema lung (Acute) Subcutaneous emphysema (Resolved) Pain (Chronic) Atypical pneumonia (Acute) Lung abscess (Chronic) Abnormal CT of the chest (Acute) ETOH abuse (Acute) Metabolic acidosis (Acute) Diarrhea (Acute) Abdominal pain (Chronic) Pancreatitis, alcoholic, acute (Acute) Chest pain (Acute) Alcohol intoxication (Acute) Pancreatitis (Chronic) Hypertension (Chronic) Acute alcohol intoxication (Acute) Lung mass (Acute) Atrial fibrillation and flutter (Acute) Atrial flutter with rapid ventricular response (Acute) Atrial fib/flutter, transient (Acute) Alcohol withdrawal delirium (Acute) Atypical chest pain (Acute) Physical deconditioning (Acute) Alcohol intoxication (Acute) Chronic schizophrenia (Acute) Suicidal ideation (Resolved) CAP (community acquired pneumonia) (Acute) Bipolar disorder (Chronic) Rib pain on right side (Acute) Alcohol use disorder (Acute) Hypertension (Chronic) Alcohol withdrawal (Resolved) Alcohol withdrawal (Resolved) Chest pain (Acute) DVT prophylaxis (Acute) COPD (chronic obstructive pulmonary disease) (Chronic) Fall (Acute) Hypomagnesemia (Acute) Hypophosphatemia (Acute) DVT prophylaxis (Acute) Transaminitis (Chronic) Gastritis (Resolved) Gastroenteritis (Resolved) Alcoholic hepatitis (Acute) Chronic leukopenia (Acute) Acute diastolic (congestive) heart failure (Acute) Diverticulitis (Chronic) Urinary retention (Acute) Hepatitis C (Chronic) Abrasion of left wrist (Acute) Suicidal behavior with attempted self-injury (Resolved) Anemia (Acute) History of substance abuse (Acute) Hepatitis C (Acute) Migraine (Acute) Bipolar disorder with severe depression (Acute) Suicidal ideation (Acute) Abdominal pain (Inactive) Abdominal pain (Inactive) Abnormal liver function tests (Inactive) Acute anxiety (Inactive) Acute retention of urine (Inactive) Alcohol abuse (Inactive) Alcohol abuse (Inactive) Alcohol dependence (Inactive) Alcohol intoxication (Inactive) Alcohol intoxication (Inactive) Alcohol intoxication (Inactive) Alcohol withdrawal (Inactive) Alcoholic intoxication (Inactive) Alcoholism (Inactive) Alcoholism /alcohol abuse (Inactive) Anemia (Inactive) Atypical chest pain (Inactive) COPD (chronic obstructive pulmonary disease) (Inactive) Cellulitis (Inactive) Cellulitis of forearm, left (Inactive) Chest pain (Inactive) Chest pain (Inactive) Chest wall pain following surgery (Inactive) Chronic renal failure (Inactive) Closed fracture of left distal radius (Inactive) Depression (Inactive) Depression (Inactive) Elevated blood pressure reading without diagnosis of hypertension (Inactive) Boggs catheter in place (Inactive) Fracture of wrist (Inactive) Fracture of wrist (Inactive) Leukopenia (Inactive) Localized swelling of both lower extremities (Inactive) Lung infiltrate on CT (Inactive) Migraine (Inactive) Pedal edema (Inactive) Problem with Boggs catheter (Inactive) Pruritus (Inactive) Pruritus (Inactive) Radial fracture (Inactive) Suicidal ideation (Inactive) No Social History Section defined Current Vitals: Last Vital Signs Temp 98.4 F 03/21/18 22:12 Pulse 96 01/07/18 04:35 Resp 14 01/07/18 04:35 BP 180/98 01/07/18 04:35 Pulse Ox 95 01/07/18 04:35 Psychiatric Lab Panel: Drug Levels and Toxicity 01/06/18 01/06/18 01/07/18 22:31 22:33 02:48 Urine Opiates Screen Negative Acetaminophen < 1.0 L Ur Barbiturates Screen Negative Ur Phencyclidine Scrn Negative Ur Amphetamines Screen Negative U Benzodiazepines Scrn Positive H Urine Cocaine Screen Negative U Marijuana (THC) Screen Negative Ethyl Alcohol 203 H 77 H Abnormal Labs: Abnormal lab results MCH 26.8 pg (28.0-33.3) L 01/06/18 22:33 MCHC 31.4 g/dL (31.6-35.5) L 01/06/18 22:33 RDW 17.0 % (11.5-14.5) H 01/06/18 22:33 Carbon Dioxide 21 mEq/L (23-29) L 01/06/18 22:33 Ur Leukocyte Esterase Trace (Negative) H 01/06/18 22:31 Urine Microscopic RBC 5-15 per hpf (0-3) H 01/06/18 22:31 Urine Microscopic WBC 3-5 per hpf (0-3) H 01/06/18 22:31 Salicylates < 5.0 mg/dL (15.0-30.0) L 01/06/18 22:33 Acetaminophen < 1.0 mcg/mL (10-30) L 01/06/18 22:33 U Benzodiazepines Scrn Positive ng/mL (Sqymmz=132) H 01/06/18 22:31 Ethyl Alcohol 77 mg/dL (0-10) H 01/07/18 02:48 Statement of Medical Clearance: I have evaluated the patient, reviewed diagnostic information, and certify that the patient's medical condition is sufficiently stable that transfer to the psychiatric unit does not pose a significant risk of deterioration.
[2018-01-07] MEDS ORDERED: *HR* LORazepam 1 MG TABLET PO ONE ×3 (11:11→14:45)
[2018-01-07] MEDS ORDERED: traZODone 50 MG TABLET PO PRN (12:05)
[2018-01-07] MEDS ORDERED: *HR* LORazepam 1 MG TABLET PO PRN (12:05)
[2018-01-07] MEDS ORDERED: Mag Hydrox/Al Hydrox/Simeth 30 ML UDC PO PRN (12:05)
[2018-01-07] MEDS ORDERED: hydrOXYzine pamoate 25 MG CAPSULE PO PRN (12:05)
[2018-01-07] MEDS ORDERED: MOM Conc 10 ML UD.LIQ PO PRN (12:05)
[2018-01-07] MEDS ORDERED: *HR* LORazepam 2 MG/ML VIAL IM PRN (12:05)
[2018-01-07] MEDS ORDERED: Haloperidol Lactate 5 MG/ML VIAL IM PRN (12:05)
[2018-01-07] MEDS ORDERED: Ibuprofen 400 MG TABLET PO PRN (12:05)
[2018-01-07] MEDS ORDERED: Nicotine 21 MG PATCH.TD24 TD SCH (12:15)
[2018-01-07] MEDS ORDERED: amLODIPine 5 MG TABLET PO SCH (12:30)
[2018-01-07] MEDS ORDERED: Folic Acid 1 MG TABLET PO SCH (12:30)
[2018-01-07] MEDS: Gabapentin 300 MG CAPSULE PO SCH ×2 (14:51→21:16)
--- NOTE | 2018-01-07 15:37 | Discharge Summary ---
Date of Encounter: 01/07/18 Time of Encounter: 14:00 History of Present Illness Chief complaint: Wanting get help Admitted From: Emergency Dept History of Present Illness: Mr. Chen is a 62 year old male The patient is known to me from the past 15-20 years where he is been treated in the [facility] by psychiatry. 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 This is been treated as bipolar disorder and at times is been accompanied by severe dissociation suicide attempts including overdoses and some self cutting. The patient was living in his usual residence but 1 month ago his father then he started drinking one fifth per day. This was purchased at a grocery store and not of high grade. The patient was seen in the emergency room and was treated he gradually had a reduction in alcohol and reported no suicidal ideation. Upon coming to the unit the patient was shaking tremulousness and sweating with rapid heartbeat area the patient also has hypertension and his blood pressure was up. The patient gives hopelessness helplessness worthlessness and low mood is low self-esteem diminished interest guilt but no current suicidal plan. He also has a sleep disturbance he also has an essential tremor. 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 Treating alcohol will help but the patient's noncompliance with some missing medical appointments. He is failed Lyrica He is in alcohol withdrawal was willing to consider transfer to the [facility]. He is previously been treated on the medical unit Past Med Surg Social Fam HX - Past Medical History Source: patient, old records reviewed Medical history: COPD, GERD, hyperlipidemia, hypertension, migraine, myocardial infarction - Past Psychiatric History Psychiatric history: Reports: bipolar, prior suicide attempt, previous psychiatric hospitalization Family psychiatric history: Yes Family History of Suicide: Unknown - Past Surgical History Surgical History: appendectomy, cholecystectomy, other - Social History Smoking Status: Current every day smoker Smokeless Tobacco Status: No Alcohol use: heavy, recent Drug use: none Occupational status: disabled Current living situation: Home - Independent Activity Level: Independent ambulation Recent Out of Country Travel Within the Last 8 Weeks: No Exposure or Possible Exposure to Illness During Travel: No - Family History Mother Adopted: No Family Member Ethnicity: Non- Living Status: Still Living Hx Family Cardiac Disorders: Yes (HTN) Hx Family Respiratory Disorders: No Hx Family Cancer: No Hx Family GI Disorders: No Hx Family Endocrine Disorder: No Hx Family Neuromuscular Disorders: No Hx Family Neurologic Disorders: Yes (neuropathy) Hx Family HEENT Disorders: No Hx Family Autoimmune Disorders: No Father History Unknown: Yes Name: Miquel Family Member Ethnicity: Non- Living Status: Age at : 33 Hx Family Cardiac Disorders: No Hx Family Respiratory Disorders: No Hx Family Cancer: No Hx Family GI Disorders: No Hx Family Genitourinary Disorders: No Hx Family Endocrine Disorder: No Hx Family Musculoskeletal Disorders: No Hx Family Neuromuscular Disorders: No Hx Family Neurologic Disorders: No Hx Family HEENT Disorders: No Hx Family Autoimmune Disorders: No Hx Family Reproductive Disorders: No Hx Family Psychosocial Disorders: No Hx Family Medical Disorders: No Medications - Discharge Medications Amlodipine Besylate 10 mg PO DAILY 12/06/17 [History] Budesonide/Formoterol 160/4.5 [Symbicort 160/4.5] 2 puff IH BID 12/06/17 [ History] Lipase/Protease/Amylase [Creon Dr 12,000 Units Capsule] 3 cap PO TIDWM 12/06/17 [History] Omeprazole [PriLOSEC] 20 mg PO DAILY 12/06/17 [History] Albuterol Sulfate [Albuterol Inhaler] 2 puff IH Q4H PRN 12/13/17 [History] Cholecalciferol (D-3) [Vitamin D] 1,000 unit PO DAILY 12/13/17 [History] Cyanocobalamin (Vitamin B-12) [Vitamin B-12] 500 mcg PO DAILY 12/13/17 [History] Folic Acid 1 mg PO DAILY 12/13/17 [History] L. Acidophilus/Pectin, [place] [Acidophilus Probiotic Capsule] 1 each PO BID [History] Magnesium Oxide [Mag-Ox] 400 mg PO DAILY 12/13/17 [History] SUMAtriptan succinate [Imitrex] 6 mg SQ Q2H PRN MDD 12 mg 12/13/17 [History] Thiamine (B-1) [Vitamin B-1] 100 mg PO DAILY 12/13/17 [History] Escitalopram [Lexapro] 10 mg PO DAILY #30 tablet 12/24/17 [Rx] Quetiapine Fumarate [Seroquel] 100 mg PO HS #30 tablet 12/24/17 [Rx] Gabapentin [Neurontin] 600 mg PO TID 01/07/18 [History] SUMAtriptan succinate [Imitrex] 25 mg PO Q2H PRN 01/07/18 [History] 3 Allergy/AdvReac Type Severity Reaction Status Date / Time Buspirone [From BuSpar] AdvReac See Verified 11/25/17 11:16 Comments tramadol AdvReac See Verified 11/25/17 11:16 Comments Review of Systems Constitutional: Reports: night sweats Ears, Nose, Throat: Reports: congestion Cardiovascular: Reports: palpitations Respiratory: Reports: wheezes Gastrointestinal: Reports: abdominal pain (None current), diarrhea Genitourinary male: Denies: urgency, dysuria, frequency, genital lesions Musculoskeletal: Reports: back pain Integumentary: Denies: rash, lesions, pruritus Neurological: Reports: headache, paresthesias Psychiatric: Reports: depression, abnormal sleep pattern, difficulty concentrating, hopelessness, mood swings Endocrine: Reports: polyuria Exam - HEENT Head exam IM: Present: atraumatic Eye exam IM: Present: EOMI, normal appearance ENT exam IM: Present: mucous membranes moist, TM's normal bilaterally - Neurological Neurological exam: Present: CN II-XII intact - Respiratory Respiratory exam IM: Present: accessory muscle use, rhonchi, wheezes - GI/Abdominal GI/Abdominal exam IM: Present: normal bowel sounds, soft, no peritoneal signs - Extremities Extremities exam IM: Present: calf tenderness, full ROM - Skin Skin exam IM: Present: warm - Constitutional Vitals: Temp Pulse Resp BP Pulse Ox 98.4 F 106 14 197/117 96 01/06/18 22:12 01/07/18 11:18 01/07/18 04:35 01/07/18 11:18 01/07/18 11:18 General appearance: unkempt - Musculoskeletal Gait: slow Station: stooped Strength & Tone: normal for patient - Psychiatric Patient Orientation: Yes Person, Yes Time, Yes Place, Yes Circumstance Level of alertness: Alert Behavior: calm Psychomotor activity: Normal Eye Contact: Maintains Eye Contact Mood Description: Anxious Affect description: dysphoric Speech Volume: Normal Speech pattern: normal rhythm Language & Vocabulary: consistent with education Thought Process: Intact Thought Content: Yes Phobic Perceptual Disturbances: No Auditory hallucinations, No Visual hallucinations Attention Span Ability: Capable of Focused Attention Memory Description: Grossly Intact Patient Reliability: Reliable Historian Fund of knowledge: Yes abstraction ability, Yes average, Yes aware of current events Intelligence Estimate: Above [place] Judgment: Fair Insight: Partial Results - Labs Labs: Laboratory Last Values WBC 5.1 K/mcL (4.3-11.1) 01/06/18 22:33 RBC 5.03 M/mcL (4.19-5.50) 01/06/18 22:33 Hgb 13.5 g/dL (12.9-16.9) 01/06/18 22: Hct 43.0 % (37.5-50.1) 01/06/18 22: MCV 85.5 fL (83.0-100.0) 01/06/18 22: MCH 26.8 pg (28.0-33.3) L 01/06/18 22: MCHC 31.4 g/dL (31.6-35.5) L 01/06/18 22: RDW 17.0 % (11.5-14.5) H 01/06/18 22:33 Plt Count 147 K/mcL (140-400) 01/06/18 22: MPV 10.1 fL (9.4-12.4) 01/06/18 22: Immature Gran % 0.6 % (0-4) 01/06/18 22: Seg Neutrophils % 51.0 % 01/06/18 22:33 Lymphocytes % 35.4 % 01/06/18 22:33 Monocytes % 7.3 % 01/06/18 22: Eosinophils % 4.7 % 01/06/18 22: Basophils % 1.0 % 01/06/18 22:33 Neutrophils # 2.6 K/mcL (1.6-8.9) 01/06/18 22: Lymphocytes # 1.8 K/mcL (0.6-4.6) 01/06/18 22: Monocytes # 0.4 K/mcL (0.0-1.3) 01/06/18 22:33 Eosinophils # 0.2 K/mcL (0.0-0.6) 01/06/18 22: Basophils # 0.1 K/mcL (0.0-0.2) 01/06/18 22: Sodium 138 mEq/L (136-145) 01/06/18 22:33 Potassium 3.9 mEq/L (3.5-5.1) 01/06/18 22:33 Chloride 106 mEq/L (98-107) 01/06/18 22:33 Carbon Dioxide 21 mEq/L (23-29) L 01/06/18 22:33 BUN 8 mg/dL (8-23) 01/06/18 22:33 Creatinine 0.87 mg/dL (0.70-1.30) 01/06/18 22:33 Est GFR ( Amer) > 60 (> 60) 01/06/18 22:33 Est GFR (Non-Af Amer) > 60 (> 60) 01/06/18 22:33 BUN/Creatinine Ratio 9 (6-26) 01/06/18 22: Glucose 100 mg/dL (70-105) 01/06/18 22:33 Calculated Osmolality 284 (280-300) 01/06/18 22:33 Lactic Acid 1.9 mmol/L (0.5-2.2) 01/06/18 23:06 Calcium 9.5 mg/dL (8.6-10.3) 01/06/18 22:33 Troponin I < 0.03 ng/mL (< 0.04) 01/06/18 23:06 Lipase 23 Units/L (11-82) 01/06/18 23:06 Urine Color Yellow (Yellow) 01/06/18 22:31 Urine Clarity Clear (Clear) 01/06/18 22:31 Urine pH 6.5 pH Units (5.0-8.0) 01/06/18 22:31 Ur Specific [place] 1.015 (1.010-1.025) 01/06/18 22:31 Urine Protein Negative mg/dL (Neg-Trace) 01/06/18 22:31 Urine Glucose (UA) Normal mg/dL (Normal) 01/06/18 22:31 Urine Ketones Negative mg/dL (Negative) 01/06/18 22:31 Urine Blood Negative (Negative) 01/06/18 22:31 Urine Nitrite Negative (Negative) 01/06/18 22:31 Urine Bilirubin Negative (Negative) 01/06/18 22:31 Urine Urobilinogen Normal mg/dL (Normal) 01/06/18 22:31 Ur Leukocyte Esterase Trace (Negative) H 01/06/18 22:31 Urine Microscopic RBC 5-15 per hpf (0-3) H 01/06/18 22:31 Urine Microscopic WBC 3-5 per hpf (0-3) H 18 22:31 Ur Squamous Epith Cells None Seen per lpf (None-Few) 18 22:31 Urine Bacteria None Seen per hpf (None-Few) 01/06/18 22:31 Hyaline Casts None Seen per lpf (None-Few) 01/06/18 22:31 Salicylates < 5.0 mg/dL (15.0-30.0) L 01/06/18 22:33 Urine Opiates Screen Negative ng/mL (Kmdmuv=128) 01/06/18 22:31 Acetaminophen < 1.0 mcg/mL (10-30) L 01/06/18 22:33 Ur Barbiturates Screen Negative ng/mL (Oektlp=055) 01/06/18 22:31 Ur Phencyclidine Scrn Negative ng/mL (Cutoff=25) 01/06/18 22:31 Ur Amphetamines Screen Negative ng/mL (Upgeel=1276) 01/06/18 22:31 U Benzodiazepines Scrn Positive ng/mL (Mmqswb=532) H 18 22:31 Urine Cocaine Screen Negative ng/mL (Cutoff= 300) 01/06/18 22:31 U Marijuana (THC) Screen Negative ng/mL (Cutoff = 50) 01/06/18 22:31 Ethyl Alcohol 77 mg/dL (0-10) H 01/07/18 02:48 Diagnosis - Discharge Diagnosis (1) Cyclothymic disorder Priority: Primary Status: Acute (2) Alcohol dependence with withdrawal Priority: Secondary Status: Acute Qualifiers: Complication of substance-induced condition: uncomplicated Qualified Code(s ): F10.230 - Alcohol dependence with withdrawal, uncomplicated (3) Alcohol dependence with uncomplicated intoxication Status: Resolved Assessment and Plan - Patient/Caregiver Discharge Instructions Activity: increase activity as tolerated Diet: regular diet - Follow up Plan Follow up with: NONE,PCP [Primary Care Provider] - Functional capacity at discharge: independent ambulation Overall status at discharge: patient is not back to baseline Disposition: Transfer [facility] Provider Date of admission: 01/07/18 11:20 Primary care physician: PCP NONE Hospital Course Hospital course: Mr. Chen is a 62 year old male - Time Spent with Patient Total time spent providing and/or coordinating discharge services: Quality - Multiple Antipsychotics Patient discharged on 2 or more antipsychotic medications: No
[2018-01-07] MEDS ORDERED: cloNIDine HCl 0.1 MG TABLET PO STA (20:24)
[2018-01-07 22:26] VITALS: BP 174/118
--- NOTE | 2018-01-07 22:58 | Electrocardiograph Report ---
[address] [place] [address] Test Date: 2018-01-06 Pat Name: Lauri Chen Department: 102 Room: 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
== END 2018-01-07 21:28 ==
LOC: EMEROO 22:09 → 1ANU 22:09
PROVIDERS: ADMIT Psychiatry & Neurology Forensic Psychiatry; ATTEND Psychiatry & Neurology Forensic Psychiatry

== ENCOUNTER 2018-02-17 03:42 | Observation (INO) ==
[2018-02-17 04:23] LABS: Basophils % 0.9 %; Immature Granulocytes % 0.3 % (0-4); Mean Corpuscular HGB Conc 33.2 g/dL (31.6-35.5); Mean Corpuscular Hemoglobin 28.1 pg (28.0-33.3); Mean Corpuscular Volume 84.5 fL (83.0-100.0)
[2018-02-17 04:24] LABS: Eosinophils # 0.1 K/mcL (0.0-0.6); Eosinophils % 1.5 %; Hematocrit 38.8 % (37.5-50.1); Hemoglobin 12.9 g/dL (12.9-16.9); Immature Platelets 4.4 % (1.1-6.1); Lymphocytes # 1.5 K/mcL (0.6-4.6); Lymphocytes % 45.2 %; Mean Platelet Volume 10.5 fL (9.4-12.4); Monocytes # 0.3 K/mcL (0.0-1.3); Neutrophils # 1.4 K/mcL (1.6-8.9); Red Blood Count 4.59 M/mcL (4.19-5.50); Red Cell Distribution Width 18.5 % (11.5-14.5); Segmented Neutrophils % 43.1 %
[2018-02-17] MEDS ORDERED: Ondansetron 4 MG/2 ML VIAL IVP ONE (04:24)
[2018-02-17] MEDS ORDERED: *HR* LORazepam 2 MG/ML VIAL IVP ONE ×2 (04:27→05:43)
[2018-02-17 04:28] LABS: Platelet Count 90 K/mcL (140-400)
[2018-02-17 04:44] LABS: BUN/Creatinine Ratio 10 (6-26); Blood Urea Nitrogen 8 mg/dL (8-23); Calcium 9.4 mg/dL (8.6-10.3); Carbon Dioxide 20 mEq/L (23-29); Chloride 106 mEq/L (98-107); Glucose 114 mg/dL (70-105); Osmolality,Calculated 289 (280-300); Potassium 3.3 mEq/L (3.5-5.1); Sodium 140 mEq/L (136-145); eGFR For African Americans > 60 (> 60); eGFR For Non-African Americans > 60 (> 60)
[2018-02-17 04:45] LABS: Troponin I < 0.03 ng/mL (< 0.04)
--- NOTE | 2018-02-17 05:50 | Emergency Department Note ---
Disposition Clinical Impression: Alcohol intoxication Qualifiers: Complication of substance-induced condition: uncomplicated Qualified Code(s): F10.920 - Alcohol use, unspecified with intoxication, uncomplicated Chest pain Qualifiers: Chest pain type: unspecified Qualified Code(s): R07.9 - Chest pain, unspecified Disposition: Home, Self-Care Condition: Good Referrals: NONE,PCP [Primary Care Provider] - Forms: ED Satisfaction Letter Time of Disposition: 05:55 General Adult HPI - General Chief complaint: ED Chest Pain Stated complaint: chest pain Time Seen by Provider: 02/17/18 04:05 Source: EMS Limitations: altered mental status Nursing Notes Reviewed: Yes Vital Signs Reviewed: Yes - History of Present Illness HPI Narrative: 62-year-old male smoker presents with chest pain. He mentions is that started earlier in the morning which was approximately 17 hours prior to his arrival. He mentions nothing is making it worse, nothing is made better. He denies any shortness of breath, nausea, extremity or neck pain, back pain, abdominal pain, hemoptysis, cough. Pain Scale: 8 - Related Data Home Medications Medication Instructions Recorded Confirmed Amlodipine Besylate 10 mg PO DAILY 12/06/17 01/07/18 Budesonide/Formoterol 160/4.5 2 puff IH BID 12/06/17 01/07/18 [Symbicort 160/4.5] Lipase/Protease/Amylase [Creon Dr 3 cap PO TIDWM 12/06/17 01/07/18 12,000 Units Capsule] Omeprazole [PriLOSEC] 20 mg PO DAILY 12/06/17 01/07/18 Albuterol Sulfate [Albuterol 2 puff IH Q4H PRN 12/13/17 01/07/18 Inhaler] Cholecalciferol (D-3) [Vitamin D] 1,000 unit PO DAILY 12/13/17 01/07/18 Cyanocobalamin (Vitamin B-12) 500 mcg PO DAILY 12/13/17 01/07/18 [Vitamin B-12] Folic Acid 1 mg PO DAILY 12/13/17 01/07/18 L. Acidophilus/Pectin, [place] 1 each PO BID 12/13/17 01/07/18 [Acidophilus Probiotic Capsule] Magnesium Oxide [Mag-Ox] 400 mg PO DAILY 12/13/17 01/07/18 SUMAtriptan succinate [Imitrex] 6 mg SQ Q2H PRN MDD 12 mg 12/13/17 01/07/18 Thiamine (B-1) [Vitamin B-1] 100 mg PO DAILY 12/13/17 01/07/18 Gabapentin [Neurontin] 600 mg PO TID 01/07/18 01/07/18 SUMAtriptan succinate [Imitrex] 25 mg PO Q2H PRN 01/07/18 01/07/18 Previous Rx's Medication Instructions Recorded Escitalopram [Lexapro] 10 mg PO DAILY #30 tablet 12/24/17 Quetiapine Fumarate [Seroquel] 100 mg PO HS #30 tablet 12/24/17 Allergies Allergy/AdvReac Type Severity Reaction Status Date / Time Buspirone [From BuSpar] AdvReac See Verified 11/25/17 11:16 Comments tramadol AdvReac See Verified 11/25/17 11:16 Comments Review of Systems: All systems ED: reviewed and negative except as stated. Constitutional: Denies: fever, chills ENT ED: Denies: throat pain Cardiovascular: Denies: palpitations Respiratory: Denies: dyspnea, wheezes Gastrointestinal: Denies: nausea, vomiting Musculoskeletal: Denies: back pain, neck pain Integumentary: Denies: rash Neurological: Denies: headache, weakness Endocrine: Denies: fatigue Hematological/Lymphatic: Denies: easy bleeding Allergic/Immunologic: Denies: facial swelling All systems ED: reviewed and negative except as stated. Review of Systems: As Per HPI Past Medical History - Past Medical History Medical history: Reports: COPD, CVA, GERD, hyperlipidemia, hypertension, migraine, myocardial infarction, other Surgical history: Reports: appendectomy, cholecystectomy, other Psychiatric history: Reports: anxiety, bipolar, prior suicide attempt, previous psychiatric hospitalization - Social History Smoking Status: Current every day smoker Smokeless Tobacco Status: No Alcohol use: Reports: heavy, recent Drug use: Reports: none Physical Exam - General Limitations: no limitations General appearance: alert, in no apparent distress, appears intoxicated - Head Head exam: atraumatic, normocephalic - Eye Eye exam: Present: EOMI - ENT ENT exam: normal oropharynx, mucous membranes moist - Neck Neck exam: Present: normal inspection, full ROM - Chest Chest inspection: Present: normal inspection. Absent: symmetric chest wall rise - Respiratory Respiratory exam: Present: normal lung sounds bilaterally. Absent: respiratory distress - Cardiovascular Cardiovascular exam: Present: regular rate, normal rhythm - Abdominal Exam Abdominal exam: Present: soft, Non-Tender, scar - Extremities Exam Extremities exam: Present: normal inspection, full ROM, normal capillary refill - Back Exam Back exam: Present: full ROM - Neurological Exam Neurological exam: Present: alert - Psychiatric Psychiatric exam: Present: normal affect, normal mood - Skin Skin exam: Present: warm, dry, intact, normal color. Absent: rash, cyanosis, diaphoresis, erythema Course Course Narrative: Patient is a 62-year-old male that arrives via squad with complaint of chest pain. Patient was given aspirin via squad. He does have a history of hypertension, hyperlipidemia. He mentions a history of stroke. His medical records mentions a history of [place]. He does admit to drinking alcohol today, and is apparently a daily drinker. His last drink was just prior to arrival. He tells me his chest pain does not worsen with walking. It is not accompanied with nausea, back pain, radiation to his neck or extremities. He tells me that he has no shortness of breath. On examination he is slightly hypertensive, otherwise his vitals within normal limits. His pain does appear to be reproducible with palpation. His lungs clear to auscultation and his heart regular rate and rhythm. Patient does have a past psychiatric history including depression, suicidal ideation, but he denies any concerns or suicide today. He is alert. No evidence of any disorganized thoughts or sulaiman. He does appear to be anxious and intoxicated. We will plan a chest x-ray, routine cardiac workup patient has received aspirin. Ativan has been ordered as nausea and anxiety. - Reevaluation(s) Reevaluation #1: Patient does have a elevated blood alcohol content. Otherwise his workup is unremarkable. His vital signs remained within normal limits. He is currently chest pain-free. He is denying suicidal ideation. At this point is the end of my shift. Care of this patient will be transferred over to day shift provider Barb Rodriguez CNP, please see her documentation for details. At this point I feel if patient remains chest pain-free, and denies any psychiatric issues, he likely can be discharged home for outpatient follow- up. However please see Barb Rodriguez CNP documentation for final details and disposition. Time: 06:21 Vital Signs Temperature 98.1 F 02/17/18 03:47 Pulse Rate 87 02/17/18 03:47 Respiratory Rate 10 02/17/18 03:47 Blood Pressure 164/107 02/17/18 03:47 O2 Sat by Pulse Oximetry 95 02/17/18 03:47 Temperature 98.1 F 02/17/18 03:47 Pulse Rate 84 02/17/18 05:45 Respiratory Rate 22 02/17/18 05:45 Blood Pressure 150/85 02/17/18 05:45 O2 Sat by Pulse Oximetry 97 02/17/18 05:45 Oxygen Delivery Oxygen Delivery Room Air Medical Decision Making - Lab Data Lab results reviewed: Yes I reviewed the patient's lab results. Result diagrams: 02/17/18 04:06 02/17/18 04:06 Lab Results 02/17/18 02/17/18 02/17/18 Range/Units 04:06 04:06 04:06 WBC 3.3 L (4.3-11.1) K/mcL RBC 4.59 (4.19-5.50) M/mcL Hgb 12.9 (12.9-16.9) g/dL Hct 38.8 (37.5-50.1) % MCV 84.5 (83.0-100.0) fL MCH 28.1 (28.0-33.3) pg MCHC 33.2 (31.6-35.5) g/dL RDW 18.5 H (11.5-14.5) % Plt Count 90 L (140-400) K/mcL MPV 10.5 (9.4-12.4) fL Immature Gran % 0.3 (0-4) % Seg Neutrophils % 43.1 % Lymphocytes % 45.2 % Monocytes % 9.0 % Eosinophils % 1.5 % Basophils % 0.9 % Neutrophils # 1.4 L (1.6-8.9) K/mcL Lymphocytes # 1.5 (0.6-4.6) K/mcL Monocytes # 0.3 (0.0-1.3) K/mcL Eosinophils # 0.1 (0.0-0.6) K/mcL Basophils # 0.0 (0.0-0.2) K/mcL Immature Plt Fraction 4.4 (1.1-6.1) % Sodium 140 (136-145) mEq/L Potassium 3.3 L (3.5-5.1) mEq/L Chloride 106 (98-107) mEq/L Carbon Dioxide 20 L (23-29) mEq/L BUN 8 (8-23) mg/dL Creatinine 0.84 (0.70-1.30) mg/dL Est GFR ( Amer) > 60 (> 60) Est GFR (Non-Af Amer) > 60 (> 60) BUN/Creatinine Ratio 10 (6-26) Glucose 114 H (70-105) mg/dL Calculated Osmolality 289 (280-300) Calcium 9.4 (8.6-10.3) mg/dL Troponin I < 0.03 (< 0.04) ng/mL Ethyl Alcohol 455 H (Less than 10) mg/dL - Radiology Data Radiology results reviewed: Yes I reviewed the patient's radiology results. - EKG Data EKG #1 EKG attestation: Yes I reviewed and interpreted this EKG. EKG shows normal: sinus rhythm Rate: normal When compared to previous EKG there are: no significant changes Interpretation: no acute changes
[2018-02-17] MEDS ORDERED: Naloxone 0.4 MG/ML INJ IVP PRN ×2 (06:43→08:47)
--- NOTE | 2018-02-17 06:52 | Emergency Department Note ---
Disposition Clinical Impression: Alcohol intoxication Qualifiers: Complication of substance-induced condition: uncomplicated Qualified Code(s): F10.920 - Alcohol use, unspecified with intoxication, uncomplicated Chest pain Qualifiers: Chest pain type: unspecified Qualified Code(s): R07.9 - Chest pain, unspecified Disposition: Admitted As Inpatient Condition: Fair Chest Pain HPI - General Chief Complaint: ED Chest Pain Stated Complaint: chest pain Time Seen by Provider: 02/17/18 04:05 Source: EMS Limitations: no limitations - History of Present Illness Severity scale (1-10): 0 - Related Data Home Medications Medication Instructions Recorded Confirmed Amlodipine Besylate 10 mg PO DAILY 12/06/17 01/07/18 Budesonide/Formoterol 160/4.5 2 puff IH BID 12/06/17 01/07/18 [Symbicort 160/4.5] Lipase/Protease/Amylase [Creon Dr 3 cap PO TIDWM 12/06/17 01/07/18 12,000 Units Capsule] Omeprazole [PriLOSEC] 20 mg PO DAILY 12/06/17 01/07/18 Albuterol Sulfate [Albuterol 2 puff IH Q4H PRN 12/13/17 01/07/18 Inhaler] Cholecalciferol (D-3) [Vitamin D] 1,000 unit PO DAILY 12/13/17 01/07/18 Cyanocobalamin (Vitamin B-12) 500 mcg PO DAILY 12/13/17 01/07/18 [Vitamin B-12] Folic Acid 1 mg PO DAILY 12/13/17 01/07/18 L. Acidophilus/Pectin, [place] 1 each PO BID 12/13/17 01/07/18 [Acidophilus Probiotic Capsule] Magnesium Oxide [Mag-Ox] 400 mg PO DAILY 12/13/17 01/07/18 SUMAtriptan succinate [Imitrex] 6 mg SQ Q2H PRN MDD 12 mg 12/13/17 01/07/18 Thiamine (B-1) [Vitamin B-1] 100 mg PO DAILY 12/13/17 01/07/18 Gabapentin [Neurontin] 600 mg PO TID 01/07/18 01/07/18 SUMAtriptan succinate [Imitrex] 25 mg PO Q2H PRN 01/07/18 01/07/18 Previous Rx's Medication Instructions Recorded Escitalopram [Lexapro] 10 mg PO DAILY #30 tablet 12/24/17 Quetiapine Fumarate [Seroquel] 100 mg PO HS #30 tablet 12/24/17 Allergies Allergy/AdvReac Type Severity Reaction Status Date / Time Buspirone [From BuSpar] AdvReac See Verified 11/25/17 11:16 Comments tramadol AdvReac See Verified 11/25/17 11:16 Comments Chest Pain PMH - Past Medical History Medical history: Reports: COPD, CVA, GERD, hyperlipidemia, hypertension, migraine, myocardial infarction, other Surgical history: Reports: appendectomy, cholecystectomy, other Psychiatric history: Reports: anxiety, bipolar, prior suicide attempt, previous psychiatric hospitalization - Social History Smoking Status: Current every day smoker Alcohol use: Reports: heavy, recent Drug use: Reports: none Physical Exam - General Limitations: no limitations General appearance: alert, in no apparent distress, appears intoxicated Course Vital Signs Temperature 98.1 F 02/17/18 03:47 Pulse Rate 87 02/17/18 03:47 Respiratory Rate 10 02/17/18 03:47 Blood Pressure 164/107 02/17/18 03:47 O2 Sat by Pulse Oximetry 95 02/17/18 03:47 Temperature 98.1 F 02/17/18 03:47 Pulse Rate 112 02/17/18 07:32 Respiratory Rate 14 02/17/18 07:32 Blood Pressure 147/92 02/17/18 07:32 O2 Sat by Pulse Oximetry 95 02/17/18 07:32 Oxygen Delivery Oxygen Delivery Nasal Cannula Chest Pain - [facility] Narrative Medical decision making narrative: Received report from Shubham Evans: 62 year old male with history of alcohol abuse, stroke. Presents with constant chest pain since yesterday, associate with shortness of breath. pt reported that it is the worst chest pain he ever had. Pt is not on any medications. Pt had Echo in 10/2017 which was negative. Today's EKG and Troponin negative. Plan: considering pt's history and presentation today, will admit pt for Chest pain observation. Dr. Foster is on board and agrees the plan. 06:30 am pt waked up and reported the chest pain is still there. - Lab Data Result diagrams: 02/17/18 04:06 02/17/18 04:06 Lab Results 02/17/18 02/17/1818 Range/Units 04:06 04:06 04:06 WBC 3.3 L (4.3-11.1) K/mcL RBC 4.59 (4.19-5.50) M/mcL Hgb 12.9 (12.9-16.9) g/dL Hct 38.8 (37.5-50.1) % MCV 84.5 (83.0-100.0) fL MCH 28.1 (28.0-33.3) pg MCHC 33.2 (31.6-35.5) g/dL RDW 18.5 H (11.5-14.5) % Plt Count 90 L (140-400) K/mcL MPV 10.5 (9.4-12.4) fL Immature Gran % 0.3 (0-4) % Seg Neutrophils % 43.1 % Lymphocytes % 45.2 % Monocytes % 9.0 % Eosinophils % 1.5 % Basophils % 0.9 % Neutrophils # 1.4 L (1.6-8.9) K/mcL Lymphocytes # 1.5 (0.6-4.6) K/mcL Monocytes # 0.3 (0.0-1.3) K/mcL Eosinophils # 0.1 (0.0-0.6) K/mcL Basophils # 0.0 (0.0-0.2) K/mcL Immature Plt Fraction 4.4 (1.1-6.1) % Sodium 140 (136-145) mEq/L Potassium 3.3 L (3.5-5.1) mEq/L Chloride 106 (98-107) mEq/L Carbon Dioxide 20 L (23-29) mEq/L BUN 8 (8-23) mg/dL Creatinine 0.84 (0.70-1.30) mg/dL Est GFR ( Amer) > 60 (> 60) Est GFR (Non-Af Amer) > 60 (> 60) BUN/Creatinine Ratio 10 (6-26) Glucose 114 H (70-105) mg/dL Calculated Osmolality 289 (280-300) Calcium 9.4 (8.6-10.3) mg/dL Troponin I < 0.03 (< 0.04) ng/mL Ethyl Alcohol 455 H (Less than 10) mg/dL 02/17/18 Range/Units 06:48 WBC (4.3-11.1) K/mcL RBC (4.19-5.50) M/mcL Hgb (12.9-16.9) g/dL Hct (37.5-50.1) % MCV (83.0-100.0) fL MCH (28.0-33.3) pg MCHC (31.6-35.5) g/dL RDW (11.5-14.5) % Plt Count (140-400) K/mcL MPV (9.4-12.4) fL Immature Gran % (0-4) % Seg Neutrophils % % Lymphocytes % % Monocytes % % Eosinophils % % Basophils % % Neutrophils # (1.6-8.9) K/mcL Lymphocytes # (0.6-4.6) K/mcL Monocytes # (0.0-1.3) K/mcL Eosinophils # (0.0-0.6) K/mcL Basophils # (0.0-0.2) K/mcL Immature Plt Fraction (1.1-6.1) % Sodium (136-145) mEq/L Potassium (3.5-5.1) mEq/L Chloride (98-107) mEq/L Carbon Dioxide (23-29) mEq/L BUN (8-23) mg/dL Creatinine (0.70-1.30) mg/dL Est GFR ( Amer) (> 60) Est GFR (Non-Af Amer) (> 60) BUN/Creatinine Ratio (6-26) Glucose (70-105) mg/dL Calculated Osmolality (280-300) Calcium (8.6-10.3) mg/dL Troponin I < 0.03 (< 0.04) ng/mL Ethyl Alcohol (Less than 10) mg/dL
[2018-02-17] MEDS: Nitroglycerin 0.4 MG TAB.SUBL SL PRN ×3 (07:07→07:34)
--- NOTE | 2018-02-17 08:58 | Internal Med History&Physical ---
Date of Encounter: 02/17/18 Time of Encounter: 08:53 Internal Medicine - H&P: HPI Chief complaint: dizziness Admitted From: Emergency Dept Plans for Post Hospital Care: Home History of present illness: Mr. Chen is a 62 year old male who has background medical history of for COPD, hypertension, hyperlipidemia, GERD, had a previous coronary artery disease. Patient is known to have a multiple admissions in the past for ethanol/alcohol history consumption. Patient came to emergency room with complaining of dizziness along with the chest pain. Noted that patient had a slurred speech and that is likely secondary to recent alcohol consumption. Patient denies shortness of breath, abdominal pain, vomiting and diarrhea. Workup in the emergency room: Patient was evaluated in the emergency room. Baseline labs are drawn. Chest x-ray was done. Reason for admission: Alcohol intoxication/chest pain to rule out ACS. Past Med Surg Social Fam HX - Past Medical History Medical history: COPD, CVA, GERD, hyperlipidemia, hypertension, migraine, myocardial infarction, other Psychiatric history: anxiety, bipolar, prior suicide attempt, previous psychiatric hospitalization - Past Surgical History Surgical History: appendectomy, cholecystectomy, other - Social History Smoking Status: Current every day smoker Smokeless Tobacco Status: No Alcohol use: heavy, recent Drug use: none - Family History Mother Adopted: No Family Member Ethnicity: Non- Living Status: Still Living Hx Family Cardiac Disorders: Yes (HTN) Hx Family Respiratory Disorders: No Hx Family Cancer: No Hx Family GI Disorders: No Hx Family Endocrine Disorder: No Hx Family Neuromuscular Disorders: No Hx Family Neurologic Disorders: Yes (neuropathy) Hx Family HEENT Disorders: No Hx Family Autoimmune Disorders: No Father Family Member Ethnicity: Non- Living Status: Hx Family Cardiac Disorders: No Hx Family Respiratory Disorders: No Hx Family Cancer: No Hx Family GI Disorders: No Hx Family Endocrine Disorder: No Hx Family Neuromuscular Disorders: No Hx Family Neurologic Disorders: No Hx Family HEENT Disorders: No Hx Family Autoimmune Disorders: No Internal Medicine - H&P: Meds Amlodipine Besylate 10 mg PO DAILY 12/06/17 [History] Budesonide/Formoterol 160/4.5 [Symbicort 160/4.5] 2 puff IH BID 12/06/17 [ History] Lipase/Protease/Amylase [Ananya Kern 12,000 Units Capsule] 3 cap PO TIDWM 12/06/17 [History] Omeprazole [PriLOSEC] 20 mg PO DAILY 12/06/17 [History] Albuterol Sulfate [Albuterol Inhaler] 2 puff IH Q4H PRN 12/13/17 [History] Cholecalciferol (D-3) [Vitamin D] 1,000 unit PO DAILY 12/13/17 [History] Cyanocobalamin (Vitamin B-12) [Vitamin B-12] 500 mcg PO DAILY 12/13/17 [History] Folic Acid 1 mg PO DAILY 12/13/17 [History] L. Acidophilus/Pectin, [place] [Acidophilus Probiotic Capsule] 1 each PO BID [History] Magnesium Oxide [Mag-Ox] 400 mg PO DAILY 12/13/17 [History] Thiamine (B-1) [Vitamin B-1] 100 mg PO DAILY 12/13/17 [History] Escitalopram [Lexapro] 10 mg PO DAILY #30 tablet 12/24/17 [Rx] Quetiapine Fumarate [Seroquel] 100 mg PO HS #30 tablet 12/24/17 [Rx] Gabapentin [Neurontin] 600 mg PO TID 01/07/18 [History] SUMAtriptan succinate [Imitrex] 25 mg PO Q2H PRN 01/07/18 [History] 3 Allergy/AdvReac Type Severity Reaction Status Date / Time Buspirone [From BuSpar] AdvReac See Verified 11/25/17 11:16 Comments tramadol AdvReac See Verified 11/25/17 11:16 Comments All Systems PM: A 10-system review of systems was performed and is negative for pertinent findings except as documented above in the HPI. - Constitutional Constitutional: no chills, no fever(s), no night sweats - EENT Eyes: no change in vision, no discharge, no pain, no photophobia Ears: no ear discharge, no ear pain, no tinnitus Nose, mouth and throat: no dysphagia, no nasal discharge, no neck pain, no sore throat - Cardiovascular Cardiovascular ROS IM: no chest pain, no diaphoresis, no dyspnea, no lightheadedness, no palpitations, no syncope - Respiratory Respiratory: no cough, no dyspnea, no wheezing, no excessive phlegm production - Gastrointestinal Gastrointestinal: no abdominal pain, no diarrhea, no hematemesis, no hematochezia, no melena, no nausea, no vomiting - Musculoskeletal Musculoskeletal ROS IM: no numbness, no tingling - Integumentary Integumentary IM: no rash, no unusual bruising - Neurological Neurological ROS: no confusion, no convulsions, no focal weakness, no numbness, no tingling, no tremor(s) - Hematologic/Lymphatic Hematologic/Lymphatic: no easy bruising - Constitutional Vitals: Temp Pulse Resp BP Pulse Ox 97.8 F 96 18 157/97 95 02/17/18 08:28 02/17/18 08:28 02/17/18 08:28 02/17/18 08:28 02/17/18 08:28 General appearance: Present: A&O X 3, pleasant, no acute distress, answers questions appropriately - Head Head exam: Present: atraumatic, normocephalic - Eye Eye exam: Present: PERRL, conjuntiva pink, sclera anicteric Pupils: Present: PERRL - Neck Neck exam general surgery: Present: supple, trachea midline. Absent: lymphadenopathy - Respiratory Respiratory exam: Present: CTAB. Absent: accessory muscle use, rales, rhonchi, wheezes - Cardiovascular Cardiovascular exam: Present: RRR, +S1, +S2. Absent: diastolic murmur, gallop, rubs, systolic murmur - GI/Abdominal GI/Abdominal exam: Present: normal bowel sounds, soft, no peritoneal signs. Absent: distended, tenderness - Extremities Exam Extremities exam: Present: warm, radial pulses palpable and symmetrical. Absent : calf tenderness, cyanotic, pedal edema - Neurological Exam Neurological exam: Present: CN II-XII intact, oriented X3, no focal deficits. Absent: pronater drift, facial droop, speech deficit - Skin Skin exam: Present: dry, intact Internal Med - H&P Results - Labs CBC & Chem 7: 02/17/18 04:06 02/17/18 04:06 - Assessment and plan (1) Alcohol intoxication Current Visit: No Status: Resolved Assessment and plan: Patient has a frequent visits in terms of her alcohol intoxication. Noted that patient's alcohol level was 455. We will follow the protocol in terms of alcohol intoxication/withdrawal. Close monitoring of the patient. If clinically worsens then call ICU. Qualifiers: Complication of substance-induced condition: uncomplicated Qualified Code(s ): F10.920 - Alcohol use, unspecified with intoxication, uncomplicated (2) Chest pain Current Visit: No Status: Acute Assessment and plan: Patient complains of occasional chest pain. Patient has previous workup for his coronary artery disease in the past. At this point we will cycle troponin. If it clinically will worsen/elevated troponin: We will get cardiology Qualifiers: Chest pain type: chest pain on breathing Qualified Code(s): R07.1 - Chest pain on breathing (3) Psychiatric disorder Current Visit: No Status: Chronic Assessment and plan: Patient is stable from a psychiatric point of view at this point. Next time we will monitor him very closely. If clinically worsens/behaves abnormally: We will get opinion from psychiatry (4) Accelerated essential hypertension Current Visit: No Status: Acute Assessment and plan: Patient is known to have hypertension. At this point patient's blood pressure is within acceptable range. We will resume home medication. (5) Bipolar disorder, unspecified Current Visit: No Status: Chronic Assessment and plan: Patient does have a bipolar disorder. We will continue the home medications for now. If clinically worsens then we will get opinion from psychiatry that at this point we will observe very closely. Qualifiers: Active/Remission status: currently active Current bipolar episode type: depressed Current episode severity: unspecified Qualified Code(s): F31.30 - Bipolar disorder, current episode depressed, mild or moderate severity, unspecified (6) DVT prophylaxis Current Visit: No Status: Acute Assessment and plan: Heparin Rectal decision making: This patient has a moderate to severe risk of worsening in spite of being on appropriate medication/treatment due to the underlying complex medical condition. - Time Spent With Patient Total time spent is greater than 50% in coordination of care (as documented) at patient's floor/unit and/or counseling patient:
[2018-02-17] MEDS ORDERED: *HR* LORazepam 2 MG/ML VIAL IVP PRN ×2 (09:07→12:10)
[2018-02-17] MEDS: Gabapentin 300 MG CAPSULE PO SCH ×3 (09:11→20:17)
[2018-02-17] MEDS: Cholecalciferol (D-3) 1,000 UNIT TABLET PO SCH (09:11)
[2018-02-17] MEDS: Thiamine (B-1) 100 MG TABLET PO SCH (09:11)
[2018-02-17] MEDS: Folic Acid 1 MG TABLET PO SCH (09:11)
[2018-02-17] MEDS: Lactobacillus 1 EACH CAP.SPRINK PO SCH ×2 (09:11→20:17)
[2018-02-17] MEDS: Magnesium Oxide 400 MG TABLET PO SCH (09:11)
[2018-02-17] MEDS: 0.9 % Sodium Chloride 1,000 ML IVC SCH (09:12)
[2018-02-17] MEDS: amLODIPine 5 MG TABLET PO SCH (09:12)
[2018-02-17] MEDS: Cyanocobalamin (B-12) 1,000 MCG TABLET PO SCH (09:12)
[2018-02-17] MEDS: Acetaminophen 325 MG TABLET PO PRN (09:17)
[2018-02-17] MEDS: SUMAtriptan succinate 25 MG TABLET PO PRN ×2 (10:26→18:37)
[2018-02-17] MEDS: Ondansetron 4 MG/2 ML VIAL IVP PRN (12:10)
[2018-02-17] MEDS: *HR* LORazepam 2 MG/ML VIAL IVP PRN ×4 (12:24→18:37)
--- NOTE | 2018-02-17 12:33 | Electrocardiograph Report ---
[address] [place] [address] Test Date: 2018-02-17 Pat Name: Lauri Chen Department: 102 Room: [facility] Gender: M [employer] Fe[employer]: Iftikhar : 1955 Requested By: Jourdan Evans Order Number: [id number] Reading MD: Nima Johnson Measurements Intervals [place] Rate: 87 P: 30 MI: 176 QRS: -21 QRSD: 86 T: 33 QT: 372 QTc: 417 Interpretive Statements SINUS RHYTHM INFERIOR MYOCARDIAL INFARCTION, OF INDETERMINATE AGE Electronically Signed On 02-17-2018 12:32:05 EDT by Nima Johnson
[2018-02-17] MEDS: Budesonide/Formoterol 160/4.5 MDI IH SCH ×2 (12:50→20:44)
[2018-02-17] MEDS: *HR* Heparin 5,000 UNIT/ML VIAL SQ SCH ×2 (13:14→22:04)
[2018-02-18 01:56] LABS: Immature Granulocytes % 0.4 % (0-4); Lymphocytes % 30.9 %; Mean Corpuscular Hemoglobin 27.9 pg (28.0-33.3)
[2018-02-18 01:58] LABS: Basophils % 0.4 %; Eosinophils # 0.1 K/mcL (0.0-0.6); Hematocrit 38.7 % (37.5-50.1); Hemoglobin 12.7 g/dL (12.9-16.9); Immature Platelets 5.2 % (1.1-6.1); Lymphocytes # 0.8 K/mcL (0.6-4.6); Mean Corpuscular HGB Conc 32.8 g/dL (31.6-35.5); Mean Corpuscular Volume 85.1 fL (83.0-100.0); Mean Platelet Volume 10.4 fL (9.4-12.4); Monocytes # 0.2 K/mcL (0.0-1.3); Monocytes % 8.6 %; Neutrophils # 1.5 K/mcL (1.6-8.9); Nucleated Red Blood Cells 0.8 /100 WBC (0); Red Blood Count 4.55 M/mcL (4.19-5.50); Red Cell Distribution Width 18.4 % (11.5-14.5); Segmented Neutrophils % 57.7 %
[2018-02-18 02:00] LABS: Platelet Count 54 K/mcL (140-400)
[2018-02-18 02:18] LABS: Platelet Estimate Decreased (Normal)
[2018-02-18 02:19] LABS: Alanine Aminotransferase 100 Units/L (7-52); Albumin 4.5 g/dL (3.5-5.7); Albumin/Globulin Ratio 1.3 (1.1-2.2); Alkaline Phosphatase 115 Units/L (34-104); Anisocytosis 1+ (Not Present); Aspartate Amino Transferase 188 Units/L (13-39); BUN/Creatinine Ratio 15 (6-26); Bilirubin,Total 1.8 mg/dL (0.3-1.0); Blood Urea Nitrogen 9 mg/dL (8-23); Calcium 9.5 mg/dL (8.6-10.3); Carbon Dioxide 24 mEq/L (23-29); Chloride 100 mEq/L (98-107); Globulin 3.6 g/dL (2.4-3.5); Glucose 106 mg/dL (70-105); Microcytosis Present (Not Present); Osmolality,Calculated 279 (280-300); Potassium 3.5 mEq/L (3.5-5.1); Sodium 135 mEq/L (136-145); Total Protein 8.1 g/dL (6.4-8.9); eGFR For African Americans > 60 (> 60); eGFR For Non-African Americans > 60 (> 60)
[2018-02-18] MEDS: *HR* LORazepam 2 MG/ML VIAL IVP PRN ×7 (03:12→21:26)
[2018-02-18] MEDS: *HR* Heparin 5,000 UNIT/ML VIAL SQ SCH (05:23)
[2018-02-18] MEDS: SUMAtriptan succinate 25 MG TABLET PO PRN ×3 (05:56→22:22)
[2018-02-18] MEDS: Gabapentin 300 MG CAPSULE PO SCH ×3 (07:28→21:26)
[2018-02-18] MEDS: Thiamine (B-1) 100 MG TABLET PO SCH ×2 (07:28→07:29)
[2018-02-18] MEDS: Vitamin B Complex/Vit C/Vit E 1 EACH TABLET PO SCH (07:29)
[2018-02-18] MEDS: Magnesium Oxide 400 MG TABLET PO SCH (07:29)
[2018-02-18] MEDS: amLODIPine 5 MG TABLET PO SCH (07:29)
[2018-02-18] MEDS: Lactobacillus 1 EACH CAP.SPRINK PO SCH ×2 (07:29→21:25)
[2018-02-18] MEDS: Folic Acid 1 MG TABLET PO SCH (07:29)
[2018-02-18] MEDS: Cholecalciferol (D-3) 1,000 UNIT TABLET PO SCH (07:29)
[2018-02-18] MEDS: Budesonide/Formoterol 160/4.5 MDI IH SCH ×2 (08:09→20:13)
[2018-02-18] MEDS ORDERED: *HR* LORazepam 2 MG/ML VIAL IVP ONE (09:57)
[2018-02-18] MEDS ORDERED: *HR* LORazepam 2 MG/ML VIAL IVP PRN (10:00)
--- NOTE | 2018-02-18 10:03 | Internal Med Progress Note ---
Date of Encounter: 02/18/18 Time of Encounter: 10:01 - Assessment and plan (1) Alcohol intoxication Current Visit: No Status: Resolved Assessment and plan: Alcohol withdrawal Noted that patient's alcohol level was 455. Start Librium 100 mg 3 times a day, hold if sedated Ativan IV as needed Consider transferring to either [address] [place] [address] or ICU if worse. Qualifiers: Complication of substance-induced condition: uncomplicated Qualified Code(s ): F10.920 - Alcohol use, unspecified with intoxication, uncomplicated (2) Chest pain Current Visit: No Status: Acute Assessment and plan: Likely pleuritic possibly related to coughing and mild acute COPD exacerbation Troponins were normal, EKG unremarkable Order echocardiogram to assess wall motion abnormalities Start prednisone and taper for acute COPD exacerbation Qualifiers: Chest pain type: chest pain on breathing Qualified Code(s): R07.1 - Chest pain on breathing (3) Psychiatric disorder Current Visit: No Status: Chronic Assessment and plan: Stable (4) Accelerated essential hypertension Current Visit: No Status: Acute Assessment and plan: Start hydralazine IV as needed Start lisinopril (5) Bipolar disorder, unspecified Current Visit: No Status: Chronic Assessment and plan: Patient does have a bipolar disorder. We will continue the home medications for now. I Qualifiers: Active/Remission status: currently active Current bipolar episode type: depressed Current episode severity: unspecified Qualified Code(s): F31.30 - Bipolar disorder, current episode depressed, mild or moderate severity, unspecified (6) Atrial fib/flutter, transient Current Visit: No Status: Acute Assessment and plan: History of paroxysmal A. fib/flutter Start metoprolol (7) Pancytopenia Current Visit: No Status: Acute Assessment and plan: Likely related to a whole Discontinue heparin and start SCDs (8) COPD (chronic obstructive pulmonary disease) Current Visit: No Status: Chronic Assessment and plan: Acute COPD exacerbation possibly secondary to acute viral bronchitis Taper prednisone Qualifiers: COPD type: emphysema Emphysema type: panlobular Qualified Code(s): J43.1 - Panlobular emphysema - Time Spent With Patient Total time spent is greater than 50% in coordination of care (as documented) at patient's floor/unit and/or counseling patient: - Subjective Interval history: Complains of some shortness of breath, chest pain mainly when he breathes in or moves around, sharp midsternal with no radiation, no nausea or vomiting. Initially shaking constantly, anxious, denies any abdominal pain diarrhea or dysuria - Constitutional Vitals: Temp Pulse Resp BP Pulse Ox 98.7 F 98 18 158/96 97 02/18/18 07:52 02/18/18 07:52 02/18/18 08:09 02/18/18 07:52 02/18/18 08:09 General appearance: Present: A&O X 3, pleasant, no acute distress, answers questions appropriately - Head Head exam: Present: atraumatic, normocephalic - Eye Eye exam: Present: PERRL, conjuntiva pink, sclera anicteric Pupils: Present: PERRL - Neck Neck exam general surgery: Present: supple, trachea midline. Absent: lymphadenopathy - Respiratory Respiratory exam: Present: CTAB. Absent: accessory muscle use, rales, rhonchi, wheezes - Cardiovascular Cardiovascular exam: Present: RRR, +S1, +S2. Absent: diastolic murmur, gallop, rubs, systolic murmur - GI/Abdominal GI/Abdominal exam: Present: normal bowel sounds, soft, no peritoneal signs. Absent: distended, tenderness - Extremities Exam Extremities exam: Present: warm, radial pulses palpable and symmetrical. Absent : calf tenderness, cyanotic, pedal edema - Neurological Exam Neurological exam: Present: CN II-XII intact, oriented X3, no focal deficits. Absent: pronater drift, facial droop, speech deficit Additional comments: Tremors - Skin Skin exam: Present: dry, intact Internal Medicine: Result - Labs CBC & Chem 7: 02/18/18 01:39 02/18/18 01:39 Labs: Short CBC 02/18/18 Range/Units 01:39 WBC 2.6 L (4.3-11.1) K/mcL Hgb 12.7 L (12.9-16.9) g/dL Hct 38.7 (37.5-50.1) % Plt Count 54 L (140-400) K/mcL Neutrophils # 1.5 L (1.6-8.9) K/mcL BMP 02/18/18 01:39 Sodium 135 L Potassium 3.5 Chloride 100 Carbon Dioxide 24 BUN 9 Creatinine 0.60 L Glucose 106 H Calcium 9.5 Cardiac Enzymes 02/17/18 02/17/18 02/18/18 Range/Units 12:26 18:51 01:39 Troponin I < 0.03 < 0.03 < 0.03 (< 0.04) ng/mL Liver Function 02/18/18 Range/Units 01:39 Total Bilirubin 1.8 H (0.3-1.0) mg/dL AST 188 H (13-39) Units/L ALT 100 H (7-52) Units/L Alkaline Phosphatase 115 H (34-104) Units/L Albumin 4.5 (3.5-5.7) g/dL Consult Discharge Plan - Plan Referrals: NONE,PCP [Primary Care Provider] -
[2018-02-18] MEDS: Cyanocobalamin (B-12) 1,000 MCG TABLET PO SCH (10:31)
[2018-02-18] MEDS: Nicotine 21 MG PATCH.TD24 TD SCH (10:31)
[2018-02-18] MEDS: predniSONE 20 MG TABLET PO SCH (10:31)
[2018-02-18] MEDS: 0.9 % Sodium Chloride 1,000 ML IVC SCH (11:44)
[2018-02-19] MEDS: *HR* LORazepam 2 MG/ML VIAL IVP PRN ×5 (05:06→14:49)
[2018-02-19] MEDS: Ondansetron 4 MG/2 ML VIAL IVP PRN ×2 (05:06→11:28)
[2018-02-19 05:22] LABS: Hemoglobin 12.1 g/dL (12.9-16.9)
[2018-02-19 05:24] LABS: Hematocrit 37.1 % (37.5-50.1); Immature Platelets 10.4 % (1.1-6.1); Mean Corpuscular HGB Conc 32.6 g/dL (31.6-35.5); Mean Corpuscular Hemoglobin 27.8 pg (28.0-33.3); Mean Corpuscular Volume 85.3 fL (83.0-100.0); Mean Platelet Volume 11.8 fL (9.4-12.4); Red Blood Count 4.35 M/mcL (4.19-5.50); Red Cell Distribution Width 18.2 % (11.5-14.5)
[2018-02-19 05:41] LABS: BUN/Creatinine Ratio 19 (6-26); Blood Urea Nitrogen 16 mg/dL (8-23); Calcium 9.7 mg/dL (8.6-10.3); Carbon Dioxide 22 mEq/L (23-29); Chloride 104 mEq/L (98-107); Glucose 118 mg/dL (70-105); Osmolality,Calculated 284 (280-300); Potassium 3.4 mEq/L (3.5-5.1); Sodium 136 mEq/L (136-145); eGFR For African Americans > 60 (> 60); eGFR For Non-African Americans > 60 (> 60)
[2018-02-19] MEDS: SUMAtriptan succinate 25 MG TABLET PO PRN (06:20)
[2018-02-19] MEDS: Budesonide/Formoterol 160/4.5 MDI IH SCH (07:52)
[2018-02-19] MEDS: Thiamine (B-1) 100 MG TABLET PO SCH ×2 (08:13→08:16)
[2018-02-19] MEDS: Cyanocobalamin (B-12) 1,000 MCG TABLET PO SCH (08:15)
[2018-02-19] MEDS: Lactobacillus 1 EACH CAP.SPRINK PO SCH (08:16)
[2018-02-19] MEDS: Nicotine 21 MG PATCH.TD24 TD SCH (08:16)
[2018-02-19] MEDS: Acetaminophen 325 MG TABLET PO PRN (08:16)
[2018-02-19] MEDS: Magnesium Oxide 400 MG TABLET PO SCH (08:16)
[2018-02-19] MEDS: Vitamin B Complex/Vit C/Vit E 1 EACH TABLET PO SCH (08:16)
[2018-02-19] MEDS: Gabapentin 300 MG CAPSULE PO SCH ×2 (08:16→14:49)
[2018-02-19] MEDS: amLODIPine 5 MG TABLET PO SCH (08:17)
[2018-02-19] MEDS: Cholecalciferol (D-3) 1,000 UNIT TABLET PO SCH (08:17)
[2018-02-19] MEDS: Folic Acid 1 MG TABLET PO SCH (08:17)
[2018-02-19] MEDS: predniSONE 20 MG TABLET PO SCH (08:17)
[2018-02-19] MEDS ORDERED: Nicotine 21 MG PATCH.TD24 TD SCH (09:27)
[2018-02-19 10:28] VITALS: BP 126/84
--- NOTE | 2018-02-19 11:20 | Internal Med Progress Note ---
Date of Encounter: 02/19/18 Time of Encounter: 11:18 - Assessment and plan (1) Alcohol intoxication Current Visit: No Status: Resolved Assessment and plan: Alcohol withdrawal Noted that patient's alcohol level was 455 Librium 100 mg 3 times a day, hold if sedated, start tapering in the morning Ativan IV as needed Consider transferring to either [address] [place] [address] or ICU if worse. Qualifiers: Complication of substance-induced condition: uncomplicated Qualified Code(s ): F10.920 - Alcohol use, unspecified with intoxication, uncomplicated (2) COPD (chronic obstructive pulmonary disease) Current Visit: No Status: Chronic Assessment and plan: Acute COPD exacerbation possibly secondary to acute viral bronchitis Taper prednisone Qualifiers: COPD type: emphysema Emphysema type: panlobular Qualified Code(s): J43.1 - Panlobular emphysema (3) Chest pain Current Visit: No Status: Acute Assessment and plan: Likely pleuritic possibly related to coughing and mild acute COPD exacerbation Troponins were normal, EKG unremarkable Order echocardiogram to assess wall motion abnormalities Started prednisone and taper for acute COPD exacerbation Now complaining of abdominal pain. Order CT scan of the abdomen with oral contrast only Qualifiers: Chest pain type: chest pain on breathing Qualified Code(s): R07.1 - Chest pain on breathing (4) Psychiatric disorder Current Visit: No Status: Chronic Assessment and plan: Stable (5) Accelerated essential hypertension Current Visit: No Status: Acute Assessment and plan: Started hydralazine IV as needed Started lisinopril (6) Bipolar disorder, unspecified Current Visit: No Status: Chronic Assessment and plan: Patient does have a bipolar disorder. We will continue the home medications for now. I Qualifiers: Active/Remission status: currently active Current bipolar episode type: depressed Current episode severity: unspecified Qualified Code(s): F31.30 - Bipolar disorder, current episode depressed, mild or moderate severity, unspecified (7) Atrial fib/flutter, transient Current Visit: No Status: Acute Assessment and plan: History of paroxysmal A. fib/flutter Started metoprolol (8) Pancytopenia Current Visit: No Status: Acute Assessment and plan: Likely related to a whole Discontinue heparin and start SCDs - Time Spent With Patient Total time spent is greater than 50% in coordination of care (as documented) at patient's floor/unit and/or counseling patient: - Subjective Interval history: Complains of severe abdominal pain, diffuse. Diffuse tenderness. Complains of some shortness of breath, chest pain mainly when he breathes in or moves around, sharp midsternal with no radiation, no nausea or vomiting. Initially shaking constantly, anxious, denies diarrhea or dysuria - Constitutional Vitals: Temp Pulse Resp BP Pulse Ox 98.4 F 78 16 126/84 96 02/19/18 10:28 02/19/18 10:28 02/19/18 10:28 02/19/18 10:28 02/19/18 10:28 General appearance: Present: A&O X 3, pleasant, no acute distress, answers questions appropriately Exam: - Head Head exam: Present: atraumatic, normocephalic - Eye Eye exam: Present: PERRL, conjuntiva pink, sclera anicteric Pupils: Present: PERRL - Neck Neck exam general surgery: Present: supple, trachea midline. Absent: lymphadenopathy - Respiratory Respiratory exam: Present: CTAB. Absent: accessory muscle use, rales, rhonchi, wheezes - Cardiovascular Cardiovascular exam: Present: RRR, +S1, +S2. Absent: diastolic murmur, gallop, rubs, systolic murmur - GI/Abdominal GI/Abdominal exam: Present: normal bowel sounds, soft, no peritoneal signs. Absent: distended, tenderness - Extremities Exam Extremities exam: Present: warm, radial pulses palpable and symmetrical. Absent : calf tenderness, cyanotic, pedal edema - Neurological Exam Neurological exam: Present: CN II-XII intact, oriented X3, no focal deficits. Absent: pronater drift, facial droop, speech deficit Additional comments: Tremors Internal Medicine: Result - Labs CBC & Chem 7: 02/19/18 04:00 02/19/18 04:00 Labs: Short CBC 02/19/18 Range/Units 04:00 WBC 3.5 L (4.3-11.1) K/mcL Hgb 12.1 L (12.9-16.9) g/dL Hct 37.1 L (37.5-50.1) % Plt Count 57 L (140-400) K/mcL BMP 02/19/18 04:00 Sodium 136 Potassium 3.4 L Chloride 104 Carbon Dioxide 22 L BUN 16 Creatinine 0.86 Glucose 118 H Calcium 9.7 - Impressions Impressions Echocardiogram Limited Views 02/18/18 09:55 Impressions: LVEF 50%. Left Ventricular Wall Motion: Rest Echo Findings All wall segments showed normal motion. Findings: Left Ventricle * LVEF 50%. Left Atrium * Normal left atrial size. Aorta * Normally sized aortic root. - VTE Documentation of Mechanical Device: Intermittent pneumatic compression device Consult Discharge Plan - Plan Referrals: NONE,PCP [Primary Care Provider] -
--- NOTE | 2018-02-19 16:00 | Discharge Summary ---
Date of Encounter: 02/19/18 Time of Encounter: 15:58 - Discharge Diagnosis (1) Alcohol intoxication Priority: Primary Status: Resolved Assessment and Plan: acute Alcohol withdrawal . Qualifiers: Complication of substance-induced condition: uncomplicated Qualified Code(s ): F10.920 - Alcohol use, unspecified with intoxication, uncomplicated (2) COPD (chronic obstructive pulmonary disease) Priority: Secondary Status: Chronic Assessment and Plan: Acute COPD exacerbation possibly secondary to acute viral bronchitis was on prednisone Qualifiers: COPD type: emphysema Emphysema type: panlobular Qualified Code(s): J43.1 - Panlobular emphysema (3) Chest pain Priority: Secondary Status: Acute Assessment and Plan: Likely pleuritic possibly related to coughing and mild acute COPD exacerbation Qualifiers: Chest pain type: chest pain on breathing Qualified Code(s): R07.1 - Chest pain on breathing (4) Psychiatric disorder Priority: Secondary Status: Chronic (5) Accelerated essential hypertension Priority: Secondary Status: Acute (6) Bipolar disorder, unspecified Priority: Secondary Status: Chronic Qualifiers: Active/Remission status: currently active Current bipolar episode type: depressed Current episode severity: unspecified Qualified Code(s): F31.30 - Bipolar disorder, current episode depressed, mild or moderate severity, unspecified (7) Atrial fib/flutter, transient Priority: Secondary Status: Acute (8) Pancytopenia Priority: Secondary Status: Acute Hospital course: Mr. Chen is a 62 year old male medical history of for COPD, hypertension, hyperlipidemia, GERD, had a previous coronary artery disease. Patient is known to have a multiple admissions in the past for ethanol/alcohol history consumption. Patient came to emergency room with complaining of dizziness along with the chest pain. Noted that patient had a slurred speech and that is likely secondary to recent alcohol consumption. Noted that patient's alcohol level was 455 Was being treated with Librium and Ativan IV as needed Troponins were normal, EKG unremarkable Ordered echocardiogram to assess wall motion abnormalities, EF was normal 50%, no wall motion abnormalities were evidenced. Started prednisone and taper for acute COPD exacerbation Now complaining of abdominal pain. Ordered CT scan of the abdomen with oral contrast only, but the patient refused to have it done. I was made aware that the patient left the floor AGAINST MEDICAL ADVICE, did not want to wait for me to talk to him. Time spent discussing smoking cessation with patient: 3 to 10 minutes - Time Spent with Patient Total time spent providing and/or coordinating discharge services: Greater than 30 minutes - Discharge Medications Home Medications: Amlodipine Besylate 10 mg PO DAILY 12/06/17 [History] Budesonide/Formoterol 160/4.5 [Symbicort 160/4.5] 2 puff IH BID 12/06/17 [ History] Lipase/Protease/Amylase [Creon Dr 12,000 Units Capsule] 3 cap PO TIDWM 12/06/17 [History] Omeprazole [PriLOSEC] 20 mg PO DAILY 12/06/17 [History] Albuterol Sulfate [Albuterol Inhaler] 2 puff IH Q4H PRN 12/13/17 [History] Cholecalciferol (D-3) [Vitamin D] 1,000 unit PO DAILY 12/13/17 [History] Cyanocobalamin (Vitamin B-12) [Vitamin B-12] 500 mcg PO DAILY 12/13/17 [History] Folic Acid 1 mg PO DAILY 12/13/17 [History] L. Acidophilus/Pectin, [place] [Acidophilus Probiotic Capsule] 1 each PO BID [History] Magnesium Oxide [Mag-Ox] 400 mg PO DAILY 12/13/17 [History] Thiamine (B-1) [Vitamin B-1] 100 mg PO DAILY 12/13/17 [History] Escitalopram [Lexapro] 10 mg PO DAILY #30 tablet 12/24/17 [Rx] Quetiapine Fumarate [Seroquel] 100 mg PO HS #30 tablet 12/24/17 [Rx] Gabapentin [Neurontin] 600 mg PO TID 01/07/18 [History] SUMAtriptan succinate [Imitrex] 25 mg PO Q2H PRN 01/07/18 [History] Allergies/Adverse Reactions: 3 Allergy/AdvReac Type Severity Reaction Status Date / Time Buspirone [From BuSpar] AdvReac See Verified 11/25/17 11:16 Comments tramadol AdvReac See Verified 11/25/17 11:16 Comments Date of admission: 02/17/18 07:04 Primary care physician: PCP NONE Consults: 02/17/18 09:07 Consult to Aircraft Load Controller [CONS] Routine Reason for SW Consult: leg swelling and epigastric pain: etoh intoxication - Constitutional Vitals: Temp Pulse Resp BP Pulse Ox 98.4 F 78 16 126/84 96 02/19/18 10:28 02/19/18 10:28 02/19/18 10:28 02/19/18 10:28 02/19/18 10:28 General appearance: Present: A&O X 3, pleasant, no acute distress, answers questions appropriately - Patient Status Disposition: Left Against Medical Advice Condition: Fair - Discharge Instructions Follow Up With: NONE,PCP [Primary Care Provider] - - VTE Documentation of Mechanical Device: Intermittent pneumatic compression device
== END 2018-02-19 15:34 | disposition left against medical advice (07) ==
LOC: 3NENU 03:42 → EMEROO 03:42 → 3NENU 07:55
PROVIDERS: ADMIT Internal Medicine; ATTEND Internal Medicine

== ENCOUNTER 2018-02-22 12:39 | Observation (INO) ==
[2018-02-22] MEDS ORDERED: 0.9 % Sodium Chloride 1,000 ML IVC ONE (12:49)
[2018-02-22] MEDS ORDERED: Aspirin 81 MG TAB.CHEW PO STA (12:49)
--- NOTE | 2018-02-22 12:56 | Emergency Department Note ---
Disposition Clinical Impression: Coronary artery disease, Abdominal pain, Alcohol intoxication, Chest pain, rule out acute myocardial infarction Disposition: Admitted As Inpatient Condition: Fair Referrals: NONE,PCP [Primary Care Provider] - Forms: ED Satisfaction Letter Time of Disposition: 13:57 Alcohol HPI - General Chief Complaint: ED Alcohol Abuse Stated Complaint: alcohol intoxication Time Seen by Provider: 02/22/18 12:42 Source: patient, EMS Mode of arrival: EMS Limitations: altered mental status Nursing Notes Reviewed: Yes Vital Signs Reviewed: Yes - History of Present Illness HPI Narrative: Patient presents to the ED via EMS, intoxicated. States that he drank a fifth of vodka this morning. Started complaining of chest pain, so he called EMS. States he has a headache and lower abdominal pain. No vomiting, shortness of breath, fever, other concerns currently. Patient is inebriated - Related Data Home Medications Medication Instructions Recorded Confirmed Amlodipine Besylate 10 mg PO DAILY 12/06/17 02/17/18 Budesonide/Formoterol 160/4.5 2 puff IH BID 12/06/17 02/17/18 [Symbicort 160/4.5] Lipase/Protease/Amylase [Creon Dr 3 cap PO TIDWM 12/06/17 02/17/18 12,000 Units Capsule] Omeprazole [PriLOSEC] 20 mg PO DAILY 12/06/17 02/17/18 Albuterol Sulfate [Albuterol 2 puff IH Q4H PRN 12/13/17 02/17/18 Inhaler] Cholecalciferol (D-3) [Vitamin D] 1,000 unit PO DAILY 12/13/17 02/17/18 Cyanocobalamin (Vitamin B-12) 500 mcg PO DAILY 12/13/17 02/17/18 [Vitamin B-12] Folic Acid 1 mg PO DAILY 12/13/17 02/17/18 L. Acidophilus/Pectin, [place] 1 each PO BID 12/13/17 02/17/18 [Acidophilus Probiotic Capsule] Magnesium Oxide [Mag-Ox] 400 mg PO DAILY 12/13/17 02/17/18 Thiamine (B-1) [Vitamin B-1] 100 mg PO DAILY 12/13/17 02/17/18 Gabapentin [Neurontin] 600 mg PO TID 01/07/18 02/17/18 SUMAtriptan succinate [Imitrex] 25 mg PO Q2H PRN 01/07/18 02/17/18 Previous Rx's Medication Instructions Recorded Escitalopram [Lexapro] 10 mg PO DAILY #30 tablet 12/24/17 Quetiapine Fumarate [Seroquel] 100 mg PO HS #30 tablet 12/24/17 Allergies Allergy/AdvReac Type Severity Reaction Status Date / Time Buspirone [From BuSpar] AdvReac See Verified 11/25/17 11:16 Comments tramadol AdvReac See Verified 11/25/17 11:16 Comments Review of Systems: As reviewed in the HPI. All other systems reviewed are negative or normal. Past Medical History - Past Medical History Attestation: Yes The following information was validated with the patient. Source: patient, old records reviewed Medical history: Reports: COPD, CVA, GERD, hyperlipidemia, hypertension, kidney stones, migraine, myocardial infarction, other Surgical history: Reports: appendectomy, cholecystectomy, other Psychiatric history: Reports: anxiety, bipolar, PTSD, prior suicide attempt, previous psychiatric hospitalization - Social History Smoking Status: Current every day smoker Smokeless Tobacco Status: No Alcohol use: Reports: heavy, recent Drug use: Reports: none Physical Exam CONSTITUTIONAL: [Intoxicated, in no acute distress] SKIN: [Warm, dry, and intact without rash] EYES: [extraocular movements are grossly intact, clear conjunctiva] HENT: [Normocephalic, atraumatic, moist mucus membranes, smells heavily of alcohol] NECK: [no obvious swelling, normal range of motion] PULMONARY: [normal chest rise and fall, no respiratory distress or stridor CARDIOVASCULAR: [regular rate, distal extremities are warm and well perfused] GASTROINSTESTINAL: [nondistended, non-tender, multiple surgical scars that are well-healed, no erythema] GENITOURINARY: [deferred] NEUROLOGIC: [Intoxicated with slurred speech, moves all extremities, GCS 15] MUSCULOSKELETAL: [no gross deformities, atraumatic] PSYCHIATRIC: [Intoxicated, laughing, flight of ideas] - General Limitations: no limitations General appearance: alert Course Course Narrative: Patient presenting to the ED intoxicated. Complaining of a headache and lower abdominal pain. Exam is unremarkable other than being drunk. He has had withdrawal symptoms before, so we will monitor for those. We will check labs. May likely have to admit him for medical clearance. He said multiple coingestions in the past requiring ICU stays. Currently alert and oriented now. We will rehydrate him. - Reevaluation(s) Reevaluation #1: Labs look okay. Just awaiting lipase result. Troponin was normal. EKG is not acutely changed. Patient be admitted to the hospitalist service and accepted by Dr. Pennington Reevaluation #2: Patient's lipase is elevated but less than 3 times upper limit of normal. Difficult to tell if his abdominal pain is localized to his epigastrium. We will continue IV fluids and patient will be admitted. The radiologist reading service is down currently. However, after reviewing his chest x-ray does look okay. Vital Signs Temperature 97.8 F 02/22/18 12:42 Pulse Rate 91 02/22/18 12:42 Respiratory Rate 16 02/22/18 12:42 Blood Pressure 115/77 02/22/18 12:42 O2 Sat by Pulse Oximetry 93 02/22/18 12:42 Temperature 97.8 F 02/22/18 12:42 Pulse Rate 91 02/22/18 12:42 Respiratory Rate 16 02/22/18 12:42 Blood Pressure 115/77 02/22/18 12:42 O2 Sat by Pulse Oximetry 93 02/22/18 12:42 Oxygen Delivery Oxygen Delivery Room Air Alcohol - Medical Records Medical records reviewed: Yes I reviewed the patient's medical records. - Lab Data Lab results reviewed: Yes I reviewed the patient's lab results. Result diagrams: 02/22/18 13:17 02/22/18 13:17 Lab Results 02/22/18 02/22/18 02/22/18 Range/Units 13:17 13:17 13:17 WBC (4.3-11.1) K/mcL RBC (4.19-5.50) M/mcL Hgb (12.9-16.9) g/dL Hct (37.5-50.1) % MCV (83.0-100.0) fL MCH (28.0-33.3) pg MCHC (31.6-35.5) g/dL RDW (11.5-14.5) % Plt Count (140-400) K/mcL MPV (9.4-12.4) fL Immature Gran % (0-4) % Seg Neutrophils % % Lymphocytes % % Monocytes % % Eosinophils % % Basophils % % Neutrophils # (1.6-8.9) K/mcL Lymphocytes # (0.6-4.6) K/mcL Monocytes # (0.0-1.3) K/mcL Eosinophils # (0.0-0.6) K/mcL Basophils # (0.0-0.2) K/mcL Nucleated RBCs/100 WBC (0) /100 WBC PT 11.8 (9.4-12.1) Seconds INR 1.1 APTT 29.6 (26.0-36.0) Seconds VBG pH (7.32-7.42) pH Units VBG pCO2 (41-51) mmHg VBG pO2 (25-50) mmHg VBG HCO3 (21-27) mEq/L Sodium (136-145) mEq/L Potassium (3.5-5.1) mEq/L Chloride (98-107) mEq/L Carbon Dioxide (23-29) mEq/L BUN (8-23) mg/dL Creatinine (0.70-1.30) mg/dL Est GFR ( Amer) (> 60) Est GFR (Non-Af Amer) (> 60) BUN/Creatinine Ratio (6-26) Glucose (70-105) mg/dL Calculated Osmolality (280-300) Calcium (8.6-10.3) mg/dL Troponin I (< 0.04) ng/mL B-Natriuretic Peptide 25 (Less than 100) pg/mL Lipase (11-82) Units/L Beta-Hydroxybutyric Acd < 0.10 (0.02-0.27) mmol/L Urine Color (Yellow) Urine Clarity (Clear) Urine pH (5.0-8.0) pH Units Ur Specific [place] (1.010-1.025) Urine Protein (Neg-Trace) mg/dL Urine Glucose (UA) (Normal) mg/dL Urine Ketones (Negative) mg/dL Urine Blood (Negative) Urine Nitrite (Negative) Urine Bilirubin (Negative) Urine Urobilinogen (Normal) mg/dL Ur Leukocyte Esterase (Negative) Urine Microscopic RBC (0-3) per hpf Urine Microscopic WBC (0-3) per hpf Ur Squamous Epith Cells (None-Few) per lpf Urine Bacteria (None-Few) per hpf Hyaline Casts (None-Few) per lpf Ur Culture Indicated? (NO) 02/22/18 02/22/18 02/22/18 Range/Units 13:17 13:17 13:31 WBC 4.2 L (4.3-11.1) K/mcL RBC 4.15 L (4.19-5.50) M/mcL Hgb 12.1 L (12.9-16.9) g/dL Hct 36.6 L (37.5-50.1) % MCV 88.2 (83.0-100.0) fL MCH 29.2 (28.0-33.3) pg MCHC 33.1 (31.6-35.5) g/dL RDW 18.9 H (11.5-14.5) % Plt Count 106 L D (140-400) K/mcL MPV 10.8 (9.4-12.4) fL Immature Gran % 0.5 (0-4) % Seg Neutrophils % 55.6 % Lymphocytes % 29.2 % Monocytes % 11.6 % Eosinophils % 2.1 % Basophils % 1.0 % Neutrophils # 2.3 (1.6-8.9) K/mcL Lymphocytes # 1.2 (0.6-4.6) K/mcL Monocytes # 0.5 (0.0-1.3) K/mcL Eosinophils # 0.1 (0.0-0.6) K/mcL Basophils # 0.0 (0.0-0.2) K/mcL Nucleated RBCs/100 WBC 0.5 H (0) /100 WBC PT (9.4-12.1) Seconds INR APTT (26.0-36.0) Seconds VBG pH (7.32-7.42) pH Units VBG pCO2 (41-51) mmHg VBG pO2 (25-50) mmHg VBG HCO3 (21-27) mEq/L Sodium 139 (136-145) mEq/L Potassium 3.2 L (3.5-5.1) mEq/L Chloride 106 (98-107) mEq/L Carbon Dioxide 23 (23-29) mEq/L BUN 10 (8-23) mg/dL Creatinine 0.81 (0.70-1.30) mg/dL Est GFR ( Amer) > 60 (> 60) Est GFR (Non-Af Amer) > 60 (> 60) BUN/Creatinine Ratio 12 (6-26) Glucose 115 H (70-105) mg/dL Calculated Osmolality 288 (280-300) Calcium 9.5 (8.6-10.3) mg/dL Troponin I < 0.03 (< 0.04) ng/mL B-Natriuretic Peptide (Less than 100) pg/mL Lipase 128 H (11-82) Units/L Beta-Hydroxybutyric Acd (0.02-0.27) mmol/L Urine Color Yellow (Yellow) Urine Clarity Cloudy A (Clear) Urine pH 6.5 (5.0-8.0) pH Units Ur Specific [place] 1.014 (1.010-1.025) Urine Protein Trace (Neg-Trace) mg/dL Urine Glucose (UA) Normal (Normal) mg/dL Urine Ketones Negative (Negative) mg/dL Urine Blood Negative (Negative) Urine Nitrite Negative (Negative) Urine Bilirubin Negative (Negative) Urine Urobilinogen Normal (Normal) mg/dL Ur Leukocyte Esterase Negative (Negative) Urine Microscopic RBC 0-3 (0-3) per hpf Urine Microscopic WBC 0-3 (0-3) per hpf Ur Squamous Epith Cells Few (None-Few) per lpf Urine Bacteria None Seen (None-Few) per hpf Hyaline Casts None Seen (None-Few) per lpf Ur Culture Indicated? NO (NO) 02/22/18 Range/Units 13:36 WBC (4.3-11.1) K/mcL RBC (4.19-5.50) M/mcL Hgb (12.9-16.9) g/dL Hct (37.5-50.1) % MCV (83.0-100.0) fL MCH (28.0-33.3) pg MCHC (31.6-35.5) g/dL RDW (11.5-14.5) % Plt Count (140-400) K/mcL MPV (9.4-12.4) fL Immature Gran % (0-4) % Seg Neutrophils % % Lymphocytes % % Monocytes % % Eosinophils % % Basophils % % Neutrophils # (1.6-8.9) K/mcL Lymphocytes # (0.6-4.6) K/mcL Monocytes # (0.0-1.3) K/mcL Eosinophils # (0.0-0.6) K/mcL Basophils # (0.0-0.2) K/mcL Nucleated RBCs/100 WBC (0) /100 WBC PT (9.4-12.1) Seconds INR APTT (26.0-36.0) Seconds VBG pH 7.39 (7.32-7.42) pH Units VBG pCO2 37 L (41-51) mmHg VBG pO2 178 H (25-50) mmHg VBG HCO3 22 (21-27) mEq/L Sodium (136-145) mEq/L Potassium (3.5-5.1) mEq/L Chloride (98-107) mEq/L Carbon Dioxide (23-29) mEq/L BUN (8-23) mg/dL Creatinine (0.70-1.30) mg/dL Est GFR ( Amer) (> 60) Est GFR (Non-Af Amer) (> 60) BUN/Creatinine Ratio (6-26) Glucose (70-105) mg/dL Calculated Osmolality (280-300) Calcium (8.6-10.3) mg/dL Troponin I (< 0.04) ng/mL B-Natriuretic Peptide (Less than 100) pg/mL Lipase (11-82) Units/L Beta-Hydroxybutyric Acd (0.02-0.27) mmol/L Urine Color (Yellow) Urine Clarity (Clear) Urine pH (5.0-8.0) pH Units Ur Specific [place] (1.010-1.025) Urine Protein (Neg-Trace) mg/dL Urine Glucose (UA) (Normal) mg/dL Urine Ketones (Negative) mg/dL Urine Blood (Negative) Urine Nitrite (Negative) Urine Bilirubin (Negative) Urine Urobilinogen (Normal) mg/dL Ur Leukocyte Esterase (Negative) Urine Microscopic RBC (0-3) per hpf Urine Microscopic WBC (0-3) per hpf Ur Squamous Epith Cells (None-Few) per lpf Urine Bacteria (None-Few) per hpf Hyaline Casts (None-Few) per lpf Ur Culture Indicated? (NO) - Radiology Data Radiology results reviewed: Yes I reviewed the patient's radiology results. - EKG Data EKG attestation: Yes I reviewed and interpreted this EKG. EKG results narrative: Sinus rhythm, rate 91, TX interval 145, QRS 86, QTC 381, left axis deviation, no acute ischemic changes. Attestation Statement - Attestation Attestation: I, Mannie Perdomo DO, examined this patient [id number] and my medical decision-making was reviewed with Dr. Shorty Farr, Resident Physician. I agree with the documented findings, disposition and treatment plan as described except to the extent set forth below. Please see my progress notes for details.
[2018-02-22 13:40] LABS: VBG HCO3 22 mEq/L (21-27); VBG PCO2 37 mmHg (41-51); VBG PH 7.39 pH Units (7.32-7.42); VBG PO2 178 mmHg (25-50)
--- NOTE | 2018-02-22 13:41 | Emergency Department Note ---
Disposition Clinical Impression: Chest pain, rule out acute myocardial infarction Coronary artery disease Qualifiers: Coronary Disease-Associated Artery/Lesion type: nond[place] artery [place] vs. transplanted heart: nond[place]ton heart Associated angina: without angina Qualified Code(s): I25.10 - Atherosclerotic heart disease of nondalton coronary artery without angina pectoris Abdominal pain Qualifiers: Abdominal location: periumbilical Qualified Code(s): R10.33 - Periumbilical pain Alcohol intoxication Qualifiers: Complication of substance-induced condition: uncomplicated Qualified Code(s): F10.920 - Alcohol use, unspecified with intoxication, uncomplicated Disposition: Admitted As Inpatient Condition: Fair Referrals: NONE,PCP [Non-Partnered Physician] - Forms: ED Satisfaction Letter Time of Disposition: 14:05 General Adult HPI - General Chief complaint: ED Alcohol Abuse Stated complaint: alcohol intoxication Time Seen by Provider: 02/22/18 12:42 Source: patient, EMS Mode of arrival: EMS Limitations: no limitations - History of Present Illness Pain Scale: 10 - Related Data Home Medications Medication Instructions Recorded Confirmed Amlodipine Besylate 10 mg PO DAILY 12/06/17 02/17/18 Budesonide/Formoterol 160/4.5 2 puff IH BID 12/06/17 02/17/18 [Symbicort 160/4.5] Lipase/Protease/Amylase [Creon Dr 3 cap PO TIDWM 12/06/17 02/17/18 12,000 Units Capsule] Omeprazole [PriLOSEC] 20 mg PO DAILY 12/06/17 02/17/18 Albuterol Sulfate [Albuterol 2 puff IH Q4H PRN 12/13/17 02/17/18 Inhaler] Cholecalciferol (D-3) [Vitamin D] 1,000 unit PO DAILY 12/13/17 02/17/18 Cyanocobalamin (Vitamin B-12) 500 mcg PO DAILY 12/13/17 02/17/18 [Vitamin B-12] Folic Acid 1 mg PO DAILY 12/13/17 02/17/18 L. Acidophilus/Pectin, [place] 1 each PO BID 12/13/17 02/17/18 [Acidophilus Probiotic Capsule] Magnesium Oxide [Mag-Ox] 400 mg PO DAILY 12/13/17 02/17/18 Thiamine (B-1) [Vitamin B-1] 100 mg PO DAILY 12/13/17 02/17/18 Gabapentin [Neurontin] 600 mg PO TID 01/07/18 02/17/18 SUMAtriptan succinate [Imitrex] 25 mg PO Q2H PRN 01/07/18 02/17/18 Previous Rx's Medication Instructions Recorded Escitalopram [Lexapro] 10 mg PO DAILY #30 tablet 12/24/17 Quetiapine Fumarate [Seroquel] 100 mg PO HS #30 tablet 12/24/17 Allergies Allergy/AdvReac Type Severity Reaction Status Date / Time Buspirone [From BuSpar] AdvReac See Verified 11/25/17 11:16 Comments tramadol AdvReac See Verified 11/25/17 11:16 Comments Past Medical History - Past Medical History Medical history: Reports: COPD, CVA, GERD, hyperlipidemia, hypertension, kidney stones, migraine, myocardial infarction, other Surgical history: Reports: appendectomy, cholecystectomy, other Psychiatric history: Reports: anxiety, bipolar, PTSD, prior suicide attempt, previous psychiatric hospitalization - Social History Smoking Status: Current every day smoker Smokeless Tobacco Status: No Alcohol use: Reports: heavy, recent Drug use: Reports: none Physical Exam - General Limitations: no limitations General appearance: alert Course Vital Signs Temperature 97.8 F 02/22/18 12:42 Pulse Rate 91 02/22/18 12:42 Respiratory Rate 16 02/22/18 12:42 Blood Pressure 115/77 02/22/18 12:42 O2 Sat by Pulse Oximetry 93 02/22/18 12:42 Temperature 97.8 F 02/22/18 12:42 Pulse Rate 91 02/22/18 12:42 Respiratory Rate 16 02/22/18 12:42 Blood Pressure 115/77 02/22/18 12:42 O2 Sat by Pulse Oximetry 93 02/22/18 12:42 Oxygen Delivery Oxygen Delivery Room Air Medical Decision Making - Lab Data Result diagrams: 02/22/18 13:17 02/22/18 13:17 Lab Results 02/22/18 02/22/18 02/22/18 Range/Units 13:17 13:17 13:17 WBC (4.3-11.1) K/mcL RBC (4.19-5.50) M/mcL Hgb (12.9-16.9) g/dL Hct (37.5-50.1) % MCV (83.0-100.0) fL MCH (28.0-33.3) pg MCHC (31.6-35.5) g/dL RDW (11.5-14.5) % Plt Count (140-400) K/mcL MPV (9.4-12.4) fL Immature Gran % (0-4) % Seg Neutrophils % % Lymphocytes % % Monocytes % % Eosinophils % % Basophils % % Neutrophils # (1.6-8.9) K/mcL Lymphocytes # (0.6-4.6) K/mcL Monocytes # (0.0-1.3) K/mcL Eosinophils # (0.0-0.6) K/mcL Basophils # (0.0-0.2) K/mcL Nucleated RBCs/100 WBC (0) /100 WBC PT 11.8 (9.4-12.1) Seconds INR 1.1 APTT 29.6 (26.0-36.0) Seconds VBG pH (7.32-7.42) pH Units VBG pCO2 (41-51) mmHg VBG pO2 (25-50) mmHg VBG HCO3 (21-27) mEq/L Sodium (136-145) mEq/L Potassium (3.5-5.1) mEq/L Chloride (98-107) mEq/L Carbon Dioxide (23-29) mEq/L BUN (8-23) mg/dL Creatinine (0.70-1.30) mg/dL Est GFR ( Amer) (> 60) Est GFR (Non-Af Amer) (> 60) BUN/Creatinine Ratio (6-26) Glucose (70-105) mg/dL Calculated Osmolality (280-300) Calcium (8.6-10.3) mg/dL Troponin I (< 0.04) ng/mL B-Natriuretic Peptide 25 (Less than 100) pg/mL Lipase (11-82) Units/L Beta-Hydroxybutyric Acd < 0.10 (0.02-0.27) mmol/L Urine Color (Yellow) Urine Clarity (Clear) Urine pH (5.0-8.0) pH Units Ur Specific [place] (1.010-1.025) Urine Protein (Neg-Trace) mg/dL Urine Glucose (UA) (Normal) mg/dL Urine Ketones (Negative) mg/dL Urine Blood (Negative) Urine Nitrite (Negative) Urine Bilirubin (Negative) Urine Urobilinogen (Normal) mg/dL Ur Leukocyte Esterase (Negative) Urine Microscopic RBC (0-3) per hpf Urine Microscopic WBC (0-3) per hpf Ur Squamous Epith Cells (None-Few) per lpf Urine Bacteria (None-Few) per hpf Hyaline Casts (None-Few) per lpf Ur Culture Indicated? (NO) 02/22/18 02/22/18 02/22/18 Range/Units 13:17 13:17 13:31 WBC 4.2 L (4.3-11.1) K/mcL RBC 4.15 L (4.19-5.50) M/mcL Hgb 12.1 L (12.9-16.9) g/dL Hct 36.6 L (37.5-50.1) % MCV 88.2 (83.0-100.0) fL MCH 29.2 (28.0-33.3) pg MCHC 33.1 (31.6-35.5) g/dL RDW 18.9 H (11.5-14.5) % Plt Count 106 L D (140-400) K/mcL MPV 10.8 (9.4-12.4) fL Immature Gran % 0.5 (0-4) % Seg Neutrophils % 55.6 % Lymphocytes % 29.2 % Monocytes % 11.6 % Eosinophils % 2.1 % Basophils % 1.0 % Neutrophils # 2.3 (1.6-8.9) K/mcL Lymphocytes # 1.2 (0.6-4.6) K/mcL Monocytes # 0.5 (0.0-1.3) K/mcL Eosinophils # 0.1 (0.0-0.6) K/mcL Basophils # 0.0 (0.0-0.2) K/mcL Nucleated RBCs/100 WBC 0.5 H (0) /100 WBC PT (9.4-12.1) Seconds INR APTT (26.0-36.0) Seconds VBG pH (7.32-7.42) pH Units VBG pCO2 (41-51) mmHg VBG pO2 (25-50) mmHg VBG HCO3 (21-27) mEq/L Sodium 139 (136-145) mEq/L Potassium 3.2 L (3.5-5.1) mEq/L Chloride 106 (98-107) mEq/L Carbon Dioxide 23 (23-29) mEq/L BUN 10 (8-23) mg/dL Creatinine 0.81 (0.70-1.30) mg/dL Est GFR ( Amer) > 60 (> 60) Est GFR (Non-Af Amer) > 60 (> 60) BUN/Creatinine Ratio 12 (6-26) Glucose 115 H (70-105) mg/dL Calculated Osmolality 288 (280-300) Calcium 9.5 (8.6-10.3) mg/dL Troponin I < 0.03 (< 0.04) ng/mL B-Natriuretic Peptide (Less than 100) pg/mL Lipase 128 H (11-82) Units/L Beta-Hydroxybutyric Acd (0.02-0.27) mmol/L Urine Color Yellow (Yellow) Urine Clarity Cloudy A (Clear) Urine pH 6.5 (5.0-8.0) pH Units Ur Specific [place] 1.014 (1.010-1.025) Urine Protein Trace (Neg-Trace) mg/dL Urine Glucose (UA) Normal (Normal) mg/dL Urine Ketones Negative (Negative) mg/dL Urine Blood Negative (Negative) Urine Nitrite Negative (Negative) Urine Bilirubin Negative (Negative) Urine Urobilinogen Normal (Normal) mg/dL Ur Leukocyte Esterase Negative (Negative) Urine Microscopic RBC 0-3 (0-3) per hpf Urine Microscopic WBC 0-3 (0-3) per hpf Ur Squamous Epith Cells Few (None-Few) per lpf Urine Bacteria None Seen (None-Few) per hpf Hyaline Casts None Seen (None-Few) per lpf Ur Culture Indicated? NO (NO) 02/22/18 Range/Units 13:36 WBC (4.3-11.1) K/mcL RBC (4.19-5.50) M/mcL Hgb (12.9-16.9) g/dL Hct (37.5-50.1) % MCV (83.0-100.0) fL MCH (28.0-33.3) pg MCHC (31.6-35.5) g/dL RDW (11.5-14.5) % Plt Count (140-400) K/mcL MPV (9.4-12.4) fL Immature Gran % (0-4) % Seg Neutrophils % % Lymphocytes % % Monocytes % % Eosinophils % % Basophils % % Neutrophils # (1.6-8.9) K/mcL Lymphocytes # (0.6-4.6) K/mcL Monocytes # (0.0-1.3) K/mcL Eosinophils # (0.0-0.6) K/mcL Basophils # (0.0-0.2) K/mcL Nucleated RBCs/100 WBC (0) /100 WBC PT (9.4-12.1) Seconds INR APTT (26.0-36.0) Seconds VBG pH 7.39 (7.32-7.42) pH Units VBG pCO2 37 L (41-51) mmHg VBG pO2 178 H (25-50) mmHg VBG HCO3 22 (21-27) mEq/L Sodium (136-145) mEq/L Potassium (3.5-5.1) mEq/L Chloride (98-107) mEq/L Carbon Dioxide (23-29) mEq/L BUN (8-23) mg/dL Creatinine (0.70-1.30) mg/dL Est GFR ( Amer) (> 60) Est GFR (Non-Af Amer) (> 60) BUN/Creatinine Ratio (6-26) Glucose (70-105) mg/dL Calculated Osmolality (280-300) Calcium (8.6-10.3) mg/dL Troponin I (< 0.04) ng/mL B-Natriuretic Peptide (Less than 100) pg/mL Lipase (11-82) Units/L Beta-Hydroxybutyric Acd (0.02-0.27) mmol/L Urine Color (Yellow) Urine Clarity (Clear) Urine pH (5.0-8.0) pH Units Ur Specific [place] (1.010-1.025) Urine Protein (Neg-Trace) mg/dL Urine Glucose (UA) (Normal) mg/dL Urine Ketones (Negative) mg/dL Urine Blood (Negative) Urine Nitrite (Negative) Urine Bilirubin (Negative) Urine Urobilinogen (Normal) mg/dL Ur Leukocyte Esterase (Negative) Urine Microscopic RBC (0-3) per hpf Urine Microscopic WBC (0-3) per hpf Ur Squamous Epith Cells (None-Few) per lpf Urine Bacteria (None-Few) per hpf Hyaline Casts (None-Few) per lpf Ur Culture Indicated? (NO) Attestation Statement - Attestation Attestation: I, Mannie Perdomo DO, examined this patient [id number] and my medical decision-making was reviewed with Dr. Shorty Farr Resident Physician. I agree with the documented findings, disposition and treatment plan as described except to the extent set forth below. Please see my progress notes for details. 62-year-old male presents to the emergency room intoxicated and complaining of chest pain. Patient denies any fevers or chills nausea vomiting or diarrhea. Denies any headache or vision change. Denies any shortness of breath. Severe left-sided chest pain that is clutching his chest and time. Patient has been seen and evaluated multiple times in this emergency room. Detailed cardiac workup will be completed along the chest x-ray EKG labs including CBC chemistry troponin coagulation studies as well as a lipase. Fluid aspirated will be given at this time. Patient is visibly intoxicated and discloses drinking approximately 1/5 of vodka here today. Patient has risk factors as well as multiple evaluations for diabetic ketoacidosis and diabetes related illness and dehydration. Patient will be evaluated for these issues as well. Lungs are clear heart is regular abdomen is soft he is describing chest pain or is clutching the left side of his chest pain has no reproducible symptoms on exam. Patient does not show any acute signs of trauma or injury. He has multiple bruises across his abdominal wall related doses insulin injections. Patient will most likely require admission once a full workup and treatment course are established. See detailed documentation of the physical exam, medical intervention, medical decision-making disposition the resident physician's note. Approximately 10 minutes after the patient arrived here in the emergency room he rolled over the side and went to sleep. He is no longer describing any symptoms or pain. Disposition to be determined. 1400 Patient lives at baseline here today. His platelet count is actually higher than what it was previously. Patient does not have an elevated troponin and has stable electrolytes. Findings: Will be given as well as checking a magnesium. Lipase is normal. Patient is currently sleeping and denies any other symptoms. Admission process to be completed for ACS evaluation rule out. Hospitalist Dr. lofton reviewed the presentation symptoms and had no other recommendations or concerns at this point.
[2018-02-22 13:42] LABS: Bilirubin,Urine Negative (Negative); Blood,Urine Negative (Negative); Clarity,Urine Cloudy (Clear); Color,Urine Yellow (Yellow); Glucose,Urine (UA) Normal (Normal); Ketones,Urine Negative (Negative); Leukocyte Esterase,Urine Negative (Negative); Nitrite,Urine Negative (Negative); PH,Urine 6.5 pH Units (5.0-8.0); Protein,Urine Trace mg/dL (Neg-Trace); Specific Gravity,Urine 1.014 (1.010-1.025); Urobilinogen,Urine Normal (Normal)
[2018-02-22 13:44] LABS: INR 1.1; Prothrombin Time 11.8 Seconds (9.4-12.1)
[2018-02-22 13:45] LABS: Bacteria,Urine None Seen per hpf (None-Few); Hyaline Casts,Urine None Seen per lpf (None-Few); RBC,Urine 0-3 per hpf (0-3); Squamous Epithelial Cell,Urine Few per lpf (None-Few); WBC,Urine 0-3 per hpf (0-3)
[2018-02-22 13:46] LABS: Eosinophils # 0.1 K/mcL (0.0-0.6); Eosinophils % 2.1 %; Hematocrit 36.6 % (37.5-50.1); Hemoglobin 12.1 g/dL (12.9-16.9); Immature Granulocytes % 0.5 % (0-4); Lymphocytes # 1.2 K/mcL (0.6-4.6); Lymphocytes % 29.2 %; Mean Corpuscular HGB Conc 33.1 g/dL (31.6-35.5); Mean Corpuscular Hemoglobin 29.2 pg (28.0-33.3); Mean Corpuscular Volume 88.2 fL (83.0-100.0); Mean Platelet Volume 10.8 fL (9.4-12.4); Monocytes # 0.5 K/mcL (0.0-1.3); Monocytes % 11.6 %; Neutrophils # 2.3 K/mcL (1.6-8.9); Nucleated Red Blood Cells 0.5 /100 WBC (0); Platelet Count 106 K/mcL (140-400); Red Blood Count 4.15 M/mcL (4.19-5.50); Red Cell Distribution Width 18.9 % (11.5-14.5); Segmented Neutrophils % 55.6 %
[2018-02-22 13:47] LABS: Activated Partial Thrombo Time 29.6 Seconds (26.0-36.0)
[2018-02-22 13:48] LABS: BUN/Creatinine Ratio 12 (6-26); Blood Urea Nitrogen 10 mg/dL (8-23); Calcium 9.5 mg/dL (8.6-10.3); Carbon Dioxide 23 mEq/L (23-29); Chloride 106 mEq/L (98-107); Glucose 115 mg/dL (70-105); Osmolality,Calculated 288 (280-300); Potassium 3.2 mEq/L (3.5-5.1); Sodium 139 mEq/L (136-145); Troponin I < 0.03 ng/mL (< 0.04); eGFR For African Americans > 60 (> 60); eGFR For Non-African Americans > 60 (> 60)
[2018-02-22 13:59] LABS: Lipase 128 Units/L (11-82)
[2018-02-22] MEDS: *HR* LORazepam 2 MG/ML VIAL IVP PRN (14:37)
[2018-02-22] MEDS ORDERED: Naloxone 0.4 MG/ML INJ IVP PRN ×2 (14:38→14:39)
[2018-02-22] MEDS ORDERED: Isovue-370 500 ML INFUS..BTL IV ONE (14:39)
[2018-02-22 14:40] LABS: Magnesium 2.1 mg/dL (1.6-2.6); Phosphorous 3.7 mg/dL (2.7-4.5)
[2018-02-22] MEDS ORDERED: Piperacillin/Tazobactam 3.375 GM in 0.9 % Sodium Chloride Mini Bag 100 ML IVPB ONE (14:41)
--- NOTE | 2018-02-22 14:57 | Internal Med History&Physical ---
<Windy Boone - Last Filed: 02/22/18 14:50> Date of Encounter: 02/22/18 Time of Encounter: 14:50 Internal Medicine - H&P: HPI Admitted From: Home Plans for Post Hospital Care: Home History of present illness: Mr. Chne is a 62 year old male with multiple comorbidities significant for CAD , COPD, hypertension, migraine, and alcohol abuse presented with chest pain and headache. Patient stated that he drank 1/5 bottles of Vodka and started to have severe headache and chest pain. Patient has been well-known to this institute because of frequent visits of ER. He has been admitted several times in the past for alcohol abuse and polysubstance ingestion. He also has history of suicidal. Patient describes the chest pain as left-sided located, clutching, intermittent , without radiation, without obvious alleviating factors. Patient denies any fevers or chills nausea vomiting or diarrhea. Denies any shortness of breath. His vital signs are the ER were stable, labs revealed hypokalemia, troponin was normal, EKG no ST-T change, chest x-ray unremarkable. He will be admitted as inpatient for further management. Past Med Surg Social Fam HX - Past Medical History Medical history: COPD, CVA, GERD, hyperlipidemia, hypertension, kidney stones, migraine, myocardial infarction, other Psychiatric history: anxiety, bipolar, PTSD, prior suicide attempt, previous psychiatric hospitalization - Past Surgical History Surgical History: appendectomy, cholecystectomy, other - Social History Smoking Status: Current every day smoker Smokeless Tobacco Status: No Alcohol use: heavy, recent Drug use: none - Family History Mother Adopted: No Family Member Ethnicity: Non- Living Status: Still Living Hx Family Cardiac Disorders: Yes (HTN) Hx Family Respiratory Disorders: No Hx Family Cancer: Yes Hx Family GI Disorders: No Hx Family Endocrine Disorder: No Hx Family Neuromuscular Disorders: No Hx Family Neurologic Disorders: Yes (neuropathy) Hx Family HEENT Disorders: No Hx Family Autoimmune Disorders: No Father Family Member Ethnicity: Non- Living Status: Hx Family Cardiac Disorders: No Hx Family Respiratory Disorders: No Hx Family Cancer: No Hx Family GI Disorders: No Hx Family Endocrine Disorder: No Hx Family Neuromuscular Disorders: No Hx Family Neurologic Disorders: No Hx Family HEENT Disorders: No Hx Family Autoimmune Disorders: No Internal Medicine - H&P: Meds Amlodipine Besylate 10 mg PO DAILY 12/06/17 [History] Budesonide/Formoterol 160/4.5 [Symbicort 160/4.5] 2 puff IH BID 12/06/17 [ History] Lipase/Protease/Amylase [Creon Dr 12,000 Units Capsule] 36,000 cap PO TIDWM [History] Omeprazole [PriLOSEC] 20 mg PO DAILY 12/06/17 [History] Albuterol Sulfate [Albuterol Inhaler] 2 puff IH Q4H PRN 12/13/17 [History] Cholecalciferol (D-3) [Vitamin D] 1,000 unit PO DAILY 12/13/17 [History] Cyanocobalamin (Vitamin B-12) [Vitamin B-12] 500 mcg PO DAILY 12/13/17 [History] Folic Acid 1 mg PO DAILY 12/13/17 [History] L. Acidophilus/Pectin, [place] [Acidophilus Probiotic Capsule] 1 each PO BID [History] Magnesium Oxide [Mag-Ox] 400 mg PO DAILY 12/13/17 [History] Thiamine (B-1) [Vitamin B-1] 100 mg PO DAILY 12/13/17 [History] Escitalopram [Lexapro] 10 mg PO DAILY #30 tablet 12/24/17 [Rx] Quetiapine Fumarate [Seroquel] 100 mg PO HS #30 tablet 12/24/17 [Rx] Gabapentin [Neurontin] 600 mg PO TID 01/07/18 [History] SUMAtriptan succinate [Imitrex] 25 mg PO Q2H PRN 01/07/18 [History] 3 Allergy/AdvReac Type Severity Reaction Status Date / Time Buspirone [From BuSpar] AdvReac See Verified 11/25/17 11:16 Comments tramadol AdvReac See Verified 11/25/17 11:16 Comments All Systems PM: A 10-system review of systems was performed and is negative for pertinent findings except as documented above in the HPI. Review of systems: REVIEW OF SYSTEMS: CONSTITUTIONAL: No weight loss, fever, chills, weakness or fatigue. HEENT: Eyes: No visual loss, blurred vision, double vision or yellow sclerae. Ears, Nose, Throat: No hearing loss, sneezing, congestion, runny nose or sore throat. SKIN: No rash or itching. CARDIOVASCULAR: see HPI. RESPIRATORY: see HPI. GASTROINTESTINAL: No anorexia, nausea, vomiting or diarrhea. No abdominal pain or blood. GENITOURINARY: No dysuria, urgency, or frequency. NEUROLOGICAL: No headache, dizziness, syncope, paralysis, ataxia, numbness or tingling in the extremities. No change in bowel or bladder control. MUSCULOSKELETAL: No muscle, back pain, joint pain or stiffness. HEMATOLOGIC: No anemia, bleeding or bruising. LYMPHATICS: No enlarged nodes. No history of splenectomy. PSYCHIATRIC: No history of depression or anxiety. ENDOCRINOLOGIC: No reports of sweating, cold or heat intolerance. No polyuria or polydipsia. - Constitutional Vitals: Temp Pulse Resp BP Pulse Ox 97.8 F 93 18 137/81 97 02/22/18 12:42 02/22/18 14:13 02/22/18 14:13 02/22/18 14:13 02/22/18 14:13 General appearance: Present: A&O X 3 Exam: PHYSICAL EXAMINATION: GENERAL APPEARANCE: The patient is alert, oriented and in no acute distress. HEENT: Head is normocephalic. The sinuses are nontender. Pupils are equal and reactive. The nares are patent. Oropharynx clear without lesions. NECK: Supple without lymphadenopathy. HEART: Regular rate and rhythm. LUNGS: No crackles or wheezes are heard. ABDOMEN: Soft, nontender, nondistended with good bowel sounds heard. Inguinal area is normal. EXTREMITIES: Without cyanosis, clubbing or edema. NEUROLOGICAL: Gross nonfocal. SKIN: Warm and dry without any rash. Internal Med - H&P Results - Labs CBC & Chem 7: 02/22/18 13:17 02/22/18 13:17 - Assessment and plan (1) Chest pain Current Visit: No Status: Acute Assessment and plan: 62-year-old male with past medical history of CAD, hypertension, migraine, COPD , and all alcohol abuse presented with acute onset of headache and chest pain. - ER workup including troponin, EKG, chest x-ray were all normal. Low risk of ACS. Chest pain likely related to alcohol abuse/severe migraine. - Continue aspirin, continue telemetry monitoring, continue cycle troponin. - Chest x-ray questionable widening mediastinum, CTA ordered. Qualifiers: Chest pain type: chest pain on breathing Qualified Code(s): R07.1 - Chest pain on breathing (2) Chronic headaches Current Visit: Yes Status: Chronic Assessment and plan: - Patient has history of severe migraine, takes Imitrex as needed home, Imitrex ordered. Qualifiers: Headache type: unspecified Intractability: not intractable Qualified Code (s): R51 - Headache (3) Alcohol intoxication Current Visit: Yes Status: Acute Assessment and plan: - History of multiple times of alcohol abuse/withdrawal, several times admission in the past with suicidal thoughts. - Patient has symptoms of alcohol intoxication, serum alcohol level pending. - Received thiamine IV at the ED, and 2 new home thiamine, folate. - CIWA scale, Ativan as needed. Qualifiers: Complication of substance-induced condition: uncomplicated Qualified Code(s ): F10.920 - Alcohol use, unspecified with intoxication, uncomplicated (4) Bipolar disorder, unspecified Current Visit: No Status: Chronic Assessment and plan: - Denies suicidal ideation, denies hallucinations, continue home medications. Qualifiers: Active/Remission status: currently active Current bipolar episode type: depressed Current episode severity: unspecified Qualified Code(s): F31.30 - Bipolar disorder, current episode depressed, mild or moderate severity, unspecified (5) Pancytopenia Current Visit: No Status: Acute Assessment and plan: - History of pancytopenia, most likely caused by chronic alcohol abuse, continue monitoring. (6) Hypokalemia Current Visit: Yes Status: Acute Assessment and plan: - Replaced, check BMP in a.m. (7) Pancreatic insufficiency Current Visit: No Status: Chronic Assessment and plan: - Continue home medication. (8) COPD (chronic obstructive pulmonary disease) Current Visit: No Status: Chronic Assessment and plan: - Stable, Continue home medication. Qualifiers: COPD type: emphysema Emphysema type: unspecified Qualified Code(s): J43.9 - Emphysema, unspecified (9) Accelerated essential hypertension Current Visit: No Status: Chronic Assessment and plan: - Repeat controlled, continue home medication. - Time Spent With Patient Total time spent is greater than 50% in coordination of care (as documented) at patient's floor/unit and/or counseling patient: Greater than 35 minutes <Ashwin Pennington P - Last Filed: 02/23/18 19:38> Date of Encounter: 02/23/18 Internal Medicine - H&P: HPI History of present illness: Mr. Chen is a 62 year old male All Systems PM: A 10-system review of systems was performed and is negative for pertinent findings except as documented above in the HPI. - Constitutional Vitals: Temp Pulse Resp BP Pulse Ox 97.5 F L 87 16 149/88 98 02/23/18 18:53 02/23/18 18:53 02/23/18 18:53 02/23/18 18:53 02/23/18 18:53 Internal Med - H&P Results - Labs CBC & Chem 7: 02/23/18 05:24 02/23/18 01:02 Labs: Short CBC 02/23/18 Range/Units 05:24 WBC 3.2 L (4.3-11.1) K/mcL Hgb 11.1 L (12.9-16.9) g/dL Hct 33.8 L (37.5-50.1) % Plt Count 107 L (140-400) K/mcL Neutrophils # 2.0 (1.6-8.9) K/mcL BMP 02/23/18 01:02 Sodium 140 Potassium 3.7 Chloride 109 H Carbon Dioxide 17 L BUN 9 Creatinine 0.72 Glucose 106 H Calcium 8.7 Cardiac Enzymes 02/23/18 Range/Units 01:02 Troponin I < 0.03 (< 0.04) ng/mL - Impressions ITS Impressions Chest CTA 02/22/18 14:39 IMPRESSION: 1. No acute pulmonary emboli. 2. Aortic and coronary atherosclerosis. 3. No acute thoracic abnormality. Stable right lung base scarring. 4. Stable mild paraseptal emphysema. D/ / 02/22/2018 21:10:53 Pravin Mayes MD / hernandez Interpreting Provider: Pravin Mayes MD - Attending Attestation I examined this patient and my medical decision-making was reviewed with the Resident Physician. I agree with the documented findings, disposition and treatment plan as described except to the extent set forth below. seen and examined will follow CIWA protocol. potential for AMA signing off. - Assessment and plan (1) Alcohol intoxication Current Visit: Yes Status: Acute Qualifiers: Complication of substance-induced condition: uncomplicated Qualified Code(s ): F10.920 - Alcohol use, unspecified with intoxication, uncomplicated (2) Chest pain Current Visit: No Status: Acute Qualifiers: Chest pain type: chest pain on breathing Qualified Code(s): R07.1 - Chest pain on breathing (3) Accelerated essential hypertension Current Visit: No Status: Chronic (4) Bipolar disorder, unspecified Current Visit: No Status: Chronic Qualifiers: Active/Remission status: currently active Current bipolar episode type: depressed Current episode severity: unspecified Qualified Code(s): F31.30 - Bipolar disorder, current episode depressed, mild or moderate severity, unspecified (5) Pancytopenia Current Visit: No Status: Acute (6) Hypokalemia Current Visit: Yes Status: Acute (7) Pancreatic insufficiency Current Visit: No Status: Chronic (8) COPD (chronic obstructive pulmonary disease) Current Visit: No Status: Chronic Qualifiers: COPD type: emphysema Emphysema type: unspecified Qualified Code(s): J43.9 - Emphysema, unspecified (9) Chronic headaches Current Visit: Yes Status: Chronic Qualifiers: Headache type: unspecified Intractability: not intractable Qualified Code (s): R51 - Headache - Time Spent With Patient Total time spent is greater than 50% in coordination of care (as documented) at patient's floor/unit and/or counseling patient:
[2018-02-22 15:05] LABS: Ethanol 343 mg/dL (Less than 10)
[2018-02-22] MEDS: Gabapentin 300 MG CAPSULE PO SCH ×2 (16:01→20:34)
[2018-02-22] MEDS: Ringers Solution, Lactated 1,000 ML IVC SCH (16:02)
[2018-02-22] MEDS: SUMAtriptan succinate 25 MG TABLET PO PRN ×2 (16:02→20:59)
[2018-02-22] MEDS: Acetaminophen 325 MG TABLET PO PRN (16:02)
[2018-02-22] MEDS: Thiamine (B-1) 100 MG, Folic Acid 1 MG, MVI, adult with vitamin K 10 ML in 0.9 % Sodi... IVPB SCH (17:17)
[2018-02-22] MEDS: *HR* Heparin 5,000 UNIT/ML VIAL SQ SCH (17:17)
[2018-02-22] MEDS: Lactobacillus 1 EACH CAP.SPRINK PO SCH (20:34)
[2018-02-22] MEDS: Budesonide/Formoterol 160/4.5 MDI IH SCH (20:38)
[2018-02-22 23:33] LABS: Amphetamine Screen,Urine Negative ng/mL (Cutoff=1000); Barbiturate Screen,Urine Negative ng/mL (Cutoff=200); Benzodiazepines Screen,Urine Positive ng/mL (Cutoff=200); Cannabinoid Screen,Urine Negative ng/mL (Cutoff = 50); Cocaine Screen,Urine Negative ng/mL (Cutoff= 300); Opiate Screen,Urine Negative ng/mL (Cutoff=300); Phencyclidine Screen,Urine Negative ng/mL (Cutoff=25)
[2018-02-23 01:51] LABS: BUN/Creatinine Ratio 13 (6-26); Blood Urea Nitrogen 9 mg/dL (8-23); Calcium 8.7 mg/dL (8.6-10.3); Carbon Dioxide 17 mEq/L (23-29); Chloride 109 mEq/L (98-107); Glucose 106 mg/dL (70-105); Osmolality,Calculated 289 (280-300); Potassium 3.7 mEq/L (3.5-5.1); Sodium 140 mEq/L (136-145); eGFR For African Americans > 60 (> 60); eGFR For Non-African Americans > 60 (> 60)
[2018-02-23] MEDS: SUMAtriptan succinate 25 MG TABLET PO PRN ×3 (04:53→20:46)
[2018-02-23] MEDS: *HR* LORazepam 2 MG/ML VIAL IVP PRN ×2 (06:21→17:47)
[2018-02-23] MEDS: *HR* Heparin 5,000 UNIT/ML VIAL SQ SCH ×2 (06:21→17:35)
[2018-02-23] MEDS: Budesonide/Formoterol 160/4.5 MDI IH SCH ×2 (07:45→20:20)
[2018-02-23 07:58] LABS: Basophils % 0.6 %; Eosinophils # 0.1 K/mcL (0.0-0.6); Eosinophils % 1.9 %; Hematocrit 33.8 % (37.5-50.1); Hemoglobin 11.1 g/dL (12.9-16.9); Immature Granulocytes % 1.6 % (0-4); Lymphocytes # 0.6 K/mcL (0.6-4.6); Lymphocytes % 18.8 %; Mean Corpuscular HGB Conc 32.8 g/dL (31.6-35.5); Mean Corpuscular Hemoglobin 28.6 pg (28.0-33.3); Mean Corpuscular Volume 87.1 fL (83.0-100.0); Mean Platelet Volume 11.1 fL (9.4-12.4); Monocytes # 0.5 K/mcL (0.0-1.3); Monocytes % 14.7 %; Nucleated Red Blood Cells 0.6 /100 WBC (0); Platelet Count 107 K/mcL (140-400); Red Blood Count 3.88 M/mcL (4.19-5.50); Red Cell Distribution Width 18.9 % (11.5-14.5); Segmented Neutrophils % 62.4 %
[2018-02-23] MEDS: Gabapentin 300 MG CAPSULE PO SCH ×3 (08:27→20:46)
[2018-02-23] MEDS: Cholecalciferol (D-3) 1,000 UNIT TABLET PO SCH (08:27)
[2018-02-23] MEDS: Lactobacillus 1 EACH CAP.SPRINK PO SCH ×2 (08:27→20:46)
[2018-02-23] MEDS: Magnesium Oxide 400 MG TABLET PO SCH (08:27)
[2018-02-23] MEDS: Ringers Solution, Lactated 1,000 ML IVC SCH (08:27)
[2018-02-23] MEDS: Folic Acid 1 MG TABLET PO SCH (08:27)
[2018-02-23] MEDS: Cyanocobalamin (B-12) 1,000 MCG TABLET PO SCH (08:27)
[2018-02-23] MEDS: Thiamine (B-1) 100 MG TABLET PO SCH (08:27)
[2018-02-23] MEDS: amLODIPine 5 MG TABLET PO SCH (08:27)
[2018-02-23] MEDS ORDERED: *HR* LORazepam 2 MG/ML VIAL IVP PRN ×2 (10:18)
--- NOTE | 2018-02-23 10:31 | Internal Med Progress Note ---
Date of Encounter: 02/23/18 Time of Encounter: 10:31 - Assessment and plan (1) Alcohol intoxication Current Visit: Yes Status: Acute Assessment and plan: - History of multiple times of alcohol abuse/withdrawal, several times admission in the past with suicidal thoughts. Upon admission EtOH was 343- presently he is alert and appropriate no signs or symptoms of withdrawals at this time Converted thiamine folate to oral - CIWA scale, Ativan as needed. Qualifiers: Complication of substance-induced condition: uncomplicated Qualified Code(s ): F10.920 - Alcohol use, unspecified with intoxication, uncomplicated (2) Chest pain Current Visit: No Status: Acute Assessment and plan: 62-year-old male with past medical history of CAD, hypertension, migraine, COPD , and all alcohol abuse presented to the emergency department with acute onset of headache and chest pain. - ER workup including troponin, EKG, chest x-ray were all normal. - Continue aspirin, continue telemetry monitoring, continue cycle troponin. - Chest x-ray questionable widening mediastinum, CTA ordered. No acute pulmonary emboli no acute thoracic abnormality We will make patient nothing by mouth after midnight and patient will undergo stress test in a.m. Qualifiers: Chest pain type: chest pain on breathing Qualified Code(s): R07.1 - Chest pain on breathing (3) Accelerated essential hypertension Current Visit: No Status: Chronic Assessment and plan: - This has improved, continue home medication. (4) Bipolar disorder, unspecified Current Visit: No Status: Chronic Assessment and plan: - Denies suicidal ideation, denies hallucinations, continue home medications. Qualifiers: Active/Remission status: currently active Current bipolar episode type: depressed Current episode severity: unspecified Qualified Code(s): F31.30 - Bipolar disorder, current episode depressed, mild or moderate severity, unspecified (5) Pancytopenia Current Visit: No Status: Acute Assessment and plan: -Stable at this time History of pancytopenia, most likely caused by chronic alcohol abuse, continue monitoring. (6) Hypokalemia Current Visit: Yes Status: Acute Assessment and plan: - Improved after being replace we will continue to monitor (7) Pancreatic insufficiency Current Visit: No Status: Chronic Assessment and plan: - Continue home medication. (8) COPD (chronic obstructive pulmonary disease) Current Visit: No Status: Chronic Assessment and plan: - Stable, Continue home medication. Qualifiers: COPD type: emphysema Emphysema type: unspecified Qualified Code(s): J43.9 - Emphysema, unspecified (9) Chronic headaches Current Visit: Yes Status: Chronic Assessment and plan: - Patient has history of severe migraine, takes Imitrex as needed home, Imitrex ordered.-Lance stable with no complaints of headaches Qualifiers: Headache type: unspecified Intractability: not intractable Qualified Code (s): R51 - Headache - Time Spent With Patient Total time spent is greater than 50% in coordination of care (as documented) at patient's floor/unit and/or counseling patient: - Constitutional Vitals: Temp Pulse Resp BP Pulse Ox 98.6 F 80 17 171/102 95 02/23/18 06:50 02/23/18 06:50 02/23/18 06:50 02/23/18 06:50 02/23/18 08:25 General appearance: Present: A&O X 3 Internal Medicine: Result - Labs CBC & Chem 7: 02/23/18 05:24 02/23/18 01:02 Labs: Short CBC 02/23/18 Range/Units 05:24 WBC 3.2 L (4.3-11.1) K/mcL Hgb 11.1 L (12.9-16.9) g/dL Hct 33.8 L (37.5-50.1) % Plt Count 107 L (140-400) K/mcL Neutrophils # 2.0 (1.6-8.9) K/mcL BMP 02/23/18 01:02 Sodium 140 Potassium 3.7 Chloride 109 H Carbon Dioxide 17 L BUN 9 Creatinine 0.72 Glucose 106 H Calcium 8.7 Cardiac Enzymes 02/22/18 02/23/18 Range/Units 18:57 01:02 Troponin I < 0.03 < 0.03 (< 0.04) ng/mL - ABG Interpretation ABG results: PT/INR, D-dimer PT 11.8 Seconds (9.4-12.1) 02/22/18 13:17 - Impressions Impressions Chest CTA 02/22/18 14:39 IMPRESSION: 1. No acute pulmonary emboli. 2. Aortic and coronary atherosclerosis. 3. No acute thoracic abnormality. Stable right lung base scarring. 4. Stable mild paraseptal emphysema. D/ / 02/22/2018 21:10:53 Pravin Mayes MD / hernandez Interpreting Provider: Pravin Mayes MD Consult Discharge Plan - Plan Referrals: Ramiro Dexter DO [Resident] - 04/14/18 9:00 am (OUR OFFICE WILL SEND A PACKET IN THE MAIL. PLEASE FILL OUT ALL INFORMATION AND FOLLOW ALL INSTRUCTIONS BEFORE ARRIVAL.CONTACT IF ANY QUESTIONS. [facility] ON THE RIGHT AT ENTRANCE OF HOSPITAL. [address] ) NONE,PCP [Primary Care Provider] -
[2018-02-23] MEDS: Ondansetron 4 MG/2 ML VIAL IVP PRN ×2 (11:12→17:35)
[2018-02-23] MEDS: Nicotine 14 MG PATCH.TD24 TD SCH (11:12)
--- NOTE | 2018-02-23 16:24 | Electrocardiograph Report ---
[address] [place] [address] Test Date: 2018-02-22 Pat Name: Lauri Chen Department: 103 Room: 3B22 Gender: M Director Of Assisted Living: FLIP : 1955 Requested By: Mannie Perdomo Order Number: [id number] Reading MD: Jenelle Parra Measurements Intervals [place] Rate: 91 P: 55 [place]: 145 QRS: -17 QRSD: 86 T: 56 QT: 332 QTc: 381 Interpretive Statements SINUS RHYTHM INFERIOR MYOCARDIAL INFARCTION, OLD Electronically Signed On 02-23-2018 16:23:04 EDT by Jenelle Parra
[2018-02-23] MEDS: Thiamine (B-1) 100 MG, Folic Acid 1 MG, MVI, adult with vitamin K 10 ML in 0.9 % Sodi... IVPB SCH (17:36)
[2018-02-23] MEDS: Acetaminophen 325 MG TABLET PO PRN (17:47)
[2018-02-24] MEDS: *HR* Heparin 5,000 UNIT/ML VIAL SQ SCH (06:10)
[2018-02-24] MEDS ORDERED: Regadenoson 0.4 MG/5 ML SYRINGE IVP ONE (06:14)
[2018-02-24] MEDS ORDERED: Vitamin B Complex/Vit C/Vit E 1 EACH TABLET PO SCH (09:00)
[2018-02-24] MEDS: Thiamine (B-1) 100 MG TABLET PO SCH (09:21)
[2018-02-24] MEDS: Gabapentin 300 MG CAPSULE PO SCH (09:21)
[2018-02-24] MEDS: Nicotine 14 MG PATCH.TD24 TD SCH (09:22)
[2018-02-24] MEDS: Lactobacillus 1 EACH CAP.SPRINK PO SCH (09:22)
[2018-02-24] MEDS: Folic Acid 1 MG TABLET PO SCH (09:22)
[2018-02-24] MEDS: amLODIPine 5 MG TABLET PO SCH (09:22)
[2018-02-24] MEDS: Cholecalciferol (D-3) 1,000 UNIT TABLET PO SCH (09:22)
[2018-02-24] MEDS: Magnesium Oxide 400 MG TABLET PO SCH (09:22)
[2018-02-24] MEDS: Cyanocobalamin (B-12) 1,000 MCG TABLET PO SCH (09:22)
[2018-02-24] MEDS: Budesonide/Formoterol 160/4.5 MDI IH SCH (10:36)
--- NOTE | 2018-02-24 10:48 | Discharge Summary ---
- NOTES TO OUTPATIENT PROVIDER Notes to Outpatient Provider: Nuclear pharmacological cardiac stress test negative for any ischemia or infarct Orders not resulted at time of discharge: Pending orders 02/23/18 18:15 NM marky perf SPECT multi [NM] Routine Date of Encounter: 02/24/18 Time of Encounter: 10:46 - Discharge Diagnosis (1) Alcohol intoxication Priority: Primary Status: Acute Qualifiers: Complication of substance-induced condition: uncomplicated Qualified Code(s ): F10.920 - Alcohol use, unspecified with intoxication, uncomplicated (2) Chest pain Priority: Primary Status: Acute Qualifiers: Chest pain type: chest pain on breathing Qualified Code(s): R07.1 - Chest pain on breathing (3) Accelerated essential hypertension Priority: Secondary Status: Chronic (4) Bipolar disorder, unspecified Priority: Secondary Status: Chronic Qualifiers: Active/Remission status: currently active Current bipolar episode type: depressed Current episode severity: unspecified Qualified Code(s): F31.30 - Bipolar disorder, current episode depressed, mild or moderate severity, unspecified (5) Pancytopenia Priority: Secondary Status: Acute (6) Hypokalemia Priority: Secondary Status: Acute (7) Pancreatic insufficiency Priority: Secondary Status: Chronic (8) COPD (chronic obstructive pulmonary disease) Priority: Secondary Status: Chronic Qualifiers: COPD type: emphysema Emphysema type: unspecified Qualified Code(s): J43.9 - Emphysema, unspecified (9) Chronic headaches Priority: Secondary Status: Chronic Qualifiers: Headache type: unspecified Intractability: not intractable Qualified Code (s): R51 - Headache Hospital course: Mr. Chen is a 62 year old male past medical history CAD COPD hypertension migraines alcohol abuse presented to [facility] ER with chest pain and headache patient stated he drank a fifth of vodka started to have severe headache and chest pain. Describing the chest pain as left-sided intermittent without radiation there are no alleviating factors. On presentation patient's alcohol level was 343 Troponins were normal [address]-T wave abnormality echocardiogram with EF of 50% he underwent a pharmalogical nuclear cardiac stress test which was negative for any ischemia or infarct. Patient was advised to follow-up with PCP since this provider knows him best and can adjust medications as needed. I did place patient on lisinopril since his blood pressure was also elevated. I reviewed medications answered patient's questions to the best my ability. He is hemodynamically stable at this time ready for discharge. Discharge discussed with: patient - Time Spent with Patient Total time spent providing and/or coordinating discharge services: - Discharge Medications Prescriptions: Lisinopril 2.5 mg PO DAILY #30 tablet Home Medications: Amlodipine Besylate 10 mg PO DAILY 12/06/17 [History] Budesonide/Formoterol 160/4.5 [Symbicort 160/4.5] 2 puff IH BID 12/06/17 [ History] Lipase/Protease/Amylase [Creon Dr 12,000 Units Capsule] 36,000 cap PO TIDWM [History] Omeprazole [PriLOSEC] 20 mg PO DAILY 12/06/17 [History] Albuterol Sulfate [Albuterol Inhaler] 2 puff IH Q4H PRN 12/13/17 [History] Cholecalciferol (D-3) [Vitamin D] 1,000 unit PO DAILY 12/13/17 [History] Cyanocobalamin (Vitamin B-12) [Vitamin B-12] 500 mcg PO DAILY 12/13/17 [History] Folic Acid 1 mg PO DAILY 12/13/17 [History] L. Acidophilus/Pectin, [place] [Acidophilus Probiotic Capsule] 1 each PO BID [History] Magnesium Oxide [Mag-Ox] 400 mg PO DAILY 12/13/17 [History] Thiamine (B-1) [Vitamin B-1] 100 mg PO DAILY 12/13/17 [History] Escitalopram [Lexapro] 10 mg PO DAILY #30 tablet 12/24/17 [Rx] Quetiapine Fumarate [Seroquel] 100 mg PO HS #30 tablet 12/24/17 [Rx] Gabapentin [Neurontin] 600 mg PO TID 01/07/18 [History] SUMAtriptan succinate [Imitrex] 25 mg PO Q2H PRN 01/07/18 [History] Lisinopril 2.5 mg PO DAILY #30 tablet 02/24/18 [Rx] Allergies/Adverse Reactions: 3 Allergy/AdvReac Type Severity Reaction Status Date / Time Buspirone [From BuSpar] AdvReac See Verified 11/25/17 11:16 Comments tramadol AdvReac See Verified 11/25/17 11:16 Comments Date of admission: 02/22/18 14:22 Primary care physician: PCP NONE Discharging clinician: Beatriz Kumar Anticipated date of discharge: 02/24/18 - Constitutional Vitals: Temp Pulse Resp BP Pulse Ox 97.7 F 76 16 167/111 97 02/24/18 06:31 02/24/18 06:31 02/24/18 10:36 02/24/18 06:31 02/24/18 10:36 General appearance: Present: A&O X 3 - Head Head exam: Present: atraumatic, normocephalic - Eye Eye exam: Present: PERRL, conjuntiva pink, sclera anicteric Pupils: Present: PERRL - Neck Neck exam general surgery: Present: supple, trachea midline. Absent: lymphadenopathy - Respiratory Respiratory exam: Present: CTAB. Absent: accessory muscle use, rales, rhonchi, wheezes - Cardiovascular Cardiovascular exam: Present: RRR, +S1, +S2. Absent: diastolic murmur, gallop, rubs, systolic murmur - GI/Abdominal GI/Abdominal exam: Present: normal bowel sounds, soft, no peritoneal signs. Absent: distended, tenderness - Extremities Exam Extremities exam: Present: warm, radial pulses palpable and symmetrical. Absent : calf tenderness, cyanotic, pedal edema - Neurological Exam Neurological exam: Present: CN II-XII intact, oriented X3, no focal deficits. Absent: pronater drift, facial droop, speech deficit - Skin Skin exam: Present: dry, intact - Patient Status Disposition: Home, Self-Care Condition: Fair Functional capacity at discharge: independent ambulation - Discharge Instructions Instructions: Chest Pain (DC) Follow Up With: Ramiro Dexter DO [Resident] - 04/14/18 9:00 am (OUR OFFICE WILL SEND A PACKET IN THE MAIL. PLEASE FILL OUT ALL INFORMATION AND FOLLOW ALL INSTRUCTIONS BEFORE ARRIVAL.CONTACT IF ANY QUESTIONS. [facility] ON THE RIGHT AT ENTRANCE OF HOSPITAL. [address]. ) NONE,PCP [Primary Care Provider] - - Diet and Activity Activity: increase activity as tolerated Diet: advance to your usual diet
[2018-02-24] MEDS: *HR* LORazepam 2 MG/ML VIAL IVP PRN (11:15)
[2018-02-24] MEDS: Acetaminophen 325 MG TABLET PO PRN (13:13)
[2018-02-24 14:45] VITALS: BP 154/95
--- NOTE | 2018-02-24 15:41 | Event Note ---
Date of Encounter: 02/24/18 Time of Encounter: 15:34 Patient has been discharged and was waiting for ride. I was notified per nursing staff the patient was found lying in the bathroom he states that his legs gave out and he slid down the wall he denies he loss of consciousness. He states that he did hit his head. There were no physical findings of trauma on patient's head. No other signs of physical trauma. No focal deficits, real nurse 2 through 12 are intact. I did obtain a CT of head noncontrast which was negative for any acute findings. I did discuss this case with Dr. John patient is to continue with discharge and follow-up with PCP as outpatient. I reviewed treatment plan with patient who verbalized understanding.
--- NOTE | 2018-02-25 05:22 | Electrocardiograph Report ---
[place] [address] Test Date: 2018-02-23 Pat Name: Lauri Chen Department: 113 Room: 3B22 Gender: M Senior It Engineer: INA : 1955 Requested By: Beatriz Kumar Order Number: [id number] Reading MD: Nima Johnson Measurements Intervals [place] Rate: 81 P: 38 [place]: 173 QRS: -16 QRSD: 81 T: 38 QT: 361 QTc: 398 Interpretive Statements SINUS RHYTHM INFERIOR MYOCARDIAL INFARCTION, PROBABLY OLD Electronically Signed On 02-25-2018 5:21:01 EDT by Nima Johnson
== END 2018-02-24 17:00 | disposition home or self-care (01) ==
LOC: 3BNU 12:39 → EMEROO 12:39 → 3BNU 14:49
PROVIDERS: ADMIT Internal Medicine; ATTEND Internal Medicine

== ENCOUNTER 2018-03-01 18:43 | Inpatient (IN) ==
[2018-03-01 19:22] LABS: Basophils % 0.8 %; Eosinophils # 0.1 K/mcL (0.0-0.6); Hematocrit 37.6 % (37.5-50.1); Hemoglobin 12.4 g/dL (12.9-16.9); Immature Granulocytes % 0.8 % (0-4); Lymphocytes % 22.4 %; Mean Corpuscular Hemoglobin 29.4 pg (28.0-33.3); Mean Corpuscular Volume 89.1 fL (83.0-100.0); Mean Platelet Volume 9.9 fL (9.4-12.4); Monocytes # 0.4 K/mcL (0.0-1.3); Monocytes % 8.4 %; Neutrophils # 3.4 K/mcL (1.6-8.9); Nucleated Red Blood Cells 0.4 /100 WBC (0); Platelet Count 129 K/mcL (140-400); Red Blood Count 4.22 M/mcL (4.19-5.50); Red Cell Distribution Width 19.5 % (11.5-14.5); Segmented Neutrophils % 66.6 %
[2018-03-01 19:23] LABS: Lymphocytes # 1.1 K/mcL (0.6-4.6)
[2018-03-01 19:42] LABS: Acetaminophen < 10 mcg/mL (10-20); BUN/Creatinine Ratio 10 (6-26); Blood Urea Nitrogen 7 mg/dL (8-23); Calcium 9.3 mg/dL (8.6-10.3); Carbon Dioxide 24 mEq/L (23-29); Chloride 100 mEq/L (98-107); Ethanol 286 mg/dL (Less than 10); Glucose 105 mg/dL (70-105); Osmolality,Calculated 286 (280-300); Potassium 3.5 mEq/L (3.5-5.1); Salicylate < 2.5 mg/dL (15.0-30.0); Sodium 139 mEq/L (136-145); eGFR For African Americans > 60 (> 60); eGFR For Non-African Americans > 60 (> 60)
--- NOTE | 2018-03-01 19:48 | Emergency Department Note ---
Disposition Clinical Impression: Alcohol intoxication, Suicidal ideation Disposition: Still a Patient Condition: Fair Referrals: NONE,PCP [Primary Care Provider] - Forms: ED Satisfaction Letter Psych HPI - General Chief Complaint: ED Medical Clearance Stated Complaint: SI/CHEST PAIN Time Seen by Provider: 03/01/18 18:47 Source: EMS Mode of arrival: ambulatory Limitations: no limitations Nursing Notes Reviewed: Yes Vital Signs Reviewed: Yes - History of Present Illness HPI Narrative: 62-year-old male presents emergency department for concerns of suicidal ideation and chest pain. Patient states his chest pain is present for the past 13 hours, described as a constant ache across the lower part of his chest. He denies associated diaphoresis or nausea or palpitations or near syncopal symptoms. Patient has multiple cardiac has risk factors. Patient states he has thoughts of suicide secondary to a of a good friend one week ago. Patient states he has thoughts about cutting his wrists which she has performed in the past. - Related Data Home Medications Medication Instructions Recorded Confirmed Amlodipine Besylate 10 mg PO DAILY 12/06/17 02/22/18 Budesonide/Formoterol 160/4.5 2 puff IH BID 12/06/17 02/22/18 [Symbicort 160/4.5] Lipase/Protease/Amylase [Creon Dr 36,000 cap PO TIDWM 12/06/17 02/22/18 12,000 Units Capsule] Omeprazole [PriLOSEC] 20 mg PO DAILY 12/06/17 02/22/18 Albuterol Sulfate [Albuterol 2 puff IH Q4H PRN 12/13/17 02/22/18 Inhaler] Cholecalciferol (D-3) [Vitamin D] 1,000 unit PO DAILY 12/13/17 02/22/18 Cyanocobalamin (Vitamin B-12) 500 mcg PO DAILY 12/13/17 02/22/18 [Vitamin B-12] Folic Acid 1 mg PO DAILY 12/13/17 02/22/18 L. Acidophilus/Pectin, [place] 1 each PO BID 12/13/17 02/22/18 [Acidophilus Probiotic Capsule] Magnesium Oxide [Mag-Ox] 400 mg PO DAILY 12/13/17 02/22/18 Thiamine (B-1) [Vitamin B-1] 100 mg PO DAILY 12/13/17 02/22/18 Gabapentin [Neurontin] 600 mg PO TID 01/07/18 02/22/18 SUMAtriptan succinate [Imitrex] 25 mg PO Q2H PRN 01/07/18 02/22/18 Previous Rx's Medication Instructions Recorded Escitalopram [Lexapro] 10 mg PO DAILY #30 tablet 12/24/17 Quetiapine Fumarate [Seroquel] 100 mg PO HS #30 tablet 12/24/17 Lisinopril 2.5 mg PO DAILY #30 tablet 02/24/18 Allergies Allergy/AdvReac Type Severity Reaction Status Date / Time Buspirone [From BuSpar] AdvReac See Verified 03/01/18 18:57 Comments tramadol AdvReac See Verified 03/01/18 18:57 Comments All systems ED: reviewed and negative except as stated. Review of Systems: As Per [facility] Past Medical History - Past Medical History Attestation: Yes The following information was validated with the patient. Source: patient Medical history: Reports: COPD, CVA, GERD, hyperlipidemia, hypertension, kidney stones, migraine, myocardial infarction, other Surgical history: Reports: appendectomy, cholecystectomy, other Psychiatric history: Reports: anxiety, bipolar, PTSD, prior suicide attempt, previous psychiatric hospitalization - Social History Smoking Status: Current every day smoker Smokeless Tobacco Status: No Alcohol use: Reports: heavy, recent Drug use: Reports: none Physical Exam General: Alert, anxious, visibly intoxicated Skin: Warm, dry, intact Head: Normocephalic and atraumatic Neck: Supple, trachea midline and no tenderness Cardiovascular: RRR, no murmur, normal perfusion Respiratory: CTAB, no wheezing, cough, or respiratory distress Musculoskeletal: Normal strength, no tenderness, swelling or deformity GI: Soft, nontender, nondistended. Bowel sounds present Neuro: A&O to person, place, time and situation. No focal deficits noted on exam - General Limitations: altered mental status General appearance: alert, anxious Course Vital Signs Temperature 98.6 F 03/01/18 18:48 Pulse Rate 97 03/01/18 18:48 Respiratory Rate 16 03/01/18 18:48 Blood Pressure 150/90 03/01/18 18:48 O2 Sat by Pulse Oximetry 95 03/01/18 18:48 Temperature 98.6 F 03/01/18 18:48 Pulse Rate 89 03/01/18 22:12 Respiratory Rate 19 03/01/18 22:12 Blood Pressure 114/75 03/01/18 22:12 O2 Sat by Pulse Oximetry 95 03/01/18 21:23 Oxygen Delivery Oxygen Delivery Room Air Psych - MDM Narrative Medical decision making narrative: Patient will be medically cleared and evaluated by [facility]. Patient' s alcohol significantly elevated and he will require multiple hours of observation before he is medically cleared. Patient had a negative initial troponin. His chest pain has been present for greater than 12 hours and constant. He had a stress test performed one week ago which was negative for ischemia at target heart rate. Patient care will be transferred to Dr. Foster pending further care and evaluation and disposition. - Lab Data Result diagrams: 03/01/18 19:07 03/01/18 19:07 Lab Results 03/01/18 03/01/18 03/01/18 Range/Units 19:07 19:07 19:21 WBC 5.1 D (4.3-11.1) K/mcL RBC 4.22 (4.19-5.50) M/mcL Hgb 12.4 L (12.9-16.9) g/dL Hct 37.6 (37.5-50.1) % MCV 89.1 (83.0-100.0) fL MCH 29.4 (28.0-33.3) pg MCHC 33.0 (31.6-35.5) g/dL RDW 19.5 H (11.5-14.5) % Plt Count 129 L (140-400) K/mcL MPV 9.9 (9.4-12.4) fL Immature Gran % 0.8 (0-4) % Seg Neutrophils % 66.6 % Lymphocytes % 22.4 % Monocytes % 8.4 % Eosinophils % 1.0 % Basophils % 0.8 % Neutrophils # 3.4 (1.6-8.9) K/mcL Lymphocytes # 1.1 (0.6-4.6) K/mcL Monocytes # 0.4 (0.0-1.3) K/mcL Eosinophils # 0.1 (0.0-0.6) K/mcL Basophils # 0.0 (0.0-0.2) K/mcL Nucleated RBCs/100 WBC 0.4 H (0) /100 WBC D-Dimer (0-500) ng/mLFEU Sodium 139 (136-145) mEq/L Potassium 3.5 (3.5-5.1) mEq/L Chloride 100 (98-107) mEq/L Carbon Dioxide 24 (23-29) mEq/L BUN 7 L (8-23) mg/dL Creatinine 0.72 (0.70-1.30) mg/dL Est GFR ( Amer) > 60 (> 60) Est GFR (Non-Af Amer) > 60 (> 60) BUN/Creatinine Ratio 10 (6-26) Glucose 105 (70-105) mg/dL Calculated Osmolality 286 (280-300) Calcium 9.3 (8.6-10.3) mg/dL Troponin I < 0.03 (< 0.04) ng/mL Urine Color Yellow (Yellow) Urine Clarity Clear (Clear) Urine pH 7.0 (5.0-8.0) pH Units Ur Specific Wing 1.010 (1.010-1.025) Urine Protein Negative (Neg-Trace) mg/dL Urine Glucose (UA) Normal (Normal) mg/dL Urine Ketones Negative (Negative) mg/dL Urine Blood Negative (Negative) Urine Nitrite Negative (Negative) Urine Bilirubin Negative (Negative) Urine Urobilinogen Normal (Normal) mg/dL Ur Leukocyte Esterase Negative (Negative) Salicylates < 2.5 L (15.0-30.0) mg/dL Urine Opiates Screen (Xnsovm=593) ng/mL Acetaminophen < 10 L (10-20) mcg/mL Ur Barbiturates Screen (Qpzxbd=208) ng/mL Ur Phencyclidine Scrn (Cutoff=25) ng/mL Ur Amphetamines Screen (Kzphma=3510) ng/mL U Benzodiazepines Scrn (Qgnnig=962) ng/mL Urine Cocaine Screen (Cutoff= 300) ng/mL U Marijuana (THC) Screen (Cutoff = 50) ng/mL Ethyl Alcohol 286 H (Less than 10) mg/dL 03/01/18 03/01/18 Range/Units 19:21 20:17 WBC (4.3-11.1) K/mcL RBC (4.19-5.50) M/mcL Hgb (12.9-16.9) g/dL Hct (37.5-50.1) % MCV (83.0-100.0) fL MCH (28.0-33.3) pg MCHC (31.6-35.5) g/dL RDW (11.5-14.5) % Plt Count (140-400) K/mcL MPV (9.4-12.4) fL Immature Gran % (0-4) % Seg Neutrophils % % Lymphocytes % % Monocytes % % Eosinophils % % Basophils % % Neutrophils # (1.6-8.9) K/mcL Lymphocytes # (0.6-4.6) K/mcL Monocytes # (0.0-1.3) K/mcL Eosinophils # (0.0-0.6) K/mcL Basophils # (0.0-0.2) K/mcL Nucleated RBCs/100 WBC (0) /100 WBC D-Dimer 337 (0-500) ng/mLFEU Sodium (136-145) mEq/L Potassium (3.5-5.1) mEq/L Chloride (98-107) mEq/L Carbon Dioxide (23-29) mEq/L BUN (8-23) mg/dL Creatinine (0.70-1.30) mg/dL Est GFR ( Amer) (> 60) Est GFR (Non-Af Amer) (> 60) BUN/Creatinine Ratio (6-26) Glucose (70-105) mg/dL Calculated Osmolality (280-300) Calcium (8.6-10.3) mg/dL Troponin I (< 0.04) ng/mL Urine Color (Yellow) Urine Clarity (Clear) Urine pH (5.0-8.0) pH Units Ur Specific Wing (1.010-1.025) Urine Protein (Neg-Trace) mg/dL Urine Glucose (UA) (Normal) mg/dL Urine Ketones (Negative) mg/dL Urine Blood (Negative) Urine Nitrite (Negative) Urine Bilirubin (Negative) Urine Urobilinogen (Normal) mg/dL Ur Leukocyte Esterase (Negative) Salicylates (15.0-30.0) mg/dL Urine Opiates Screen Negative (Kvegfz=657) ng/mL Acetaminophen (10-20) mcg/mL Ur Barbiturates Screen Negative (Tqndtu=462) ng/mL Ur Phencyclidine Scrn Negative (Cutoff=25) ng/mL Ur Amphetamines Screen Negative (Ucjtgj=4579) ng/mL U Benzodiazepines Scrn Positive H (Hjmewe=028) ng/mL Urine Cocaine Screen Negative (Cutoff= 300) ng/mL U Marijuana (THC) Screen Negative (Cutoff = 50) ng/mL Ethyl Alcohol (Less than 10) mg/dL Psychiatric Medical Clearance - Medical Clearance Checklist Medical History: No Social History Section defined Current Vitals: Last Vital Signs Temp 98.6 F 03/01/18 18:48 Pulse 89 03/01/18 22:12 Resp 19 03/01/18 22:12 BP 114/75 03/01/18 22:12 Pulse Ox 95 03/01/18 21:23 Psychiatric Lab Panel: Drug Levels and Toxicity 03/01/18 03/01/18 19:07 19:21 Urine Opiates Screen Negative Acetaminophen < 10 L Ur Barbiturates Screen Negative Ur Phencyclidine Scrn Negative Ur Amphetamines Screen Negative U Benzodiazepines Scrn Positive H Urine Cocaine Screen Negative U Marijuana (THC) Screen Negative Ethyl Alcohol 286 H Abnormal Labs: Abnormal lab results Hgb 12.4 g/dL (12.9-16.9) L 03/01/18 19:07 RDW 19.5 % (11.5-14.5) H 03/01/18 19:07 Plt Count 129 K/mcL (140-400) L 03/01/18 19:07 Nucleated RBCs/100 WBC 0.4 /100 WBC (0) H 03/01/18 19:07 BUN 7 mg/dL (8-23) L 03/01/18 19:07 Salicylates < 2.5 mg/dL (15.0-30.0) L 03/01/18 19:07 Acetaminophen < 10 mcg/mL (10-20) L 03/01/18 19:07 U Benzodiazepines Scrn Positive ng/mL (Fohweb=677) H 03/01/18 19:21 Ethyl Alcohol 286 mg/dL (Less than 10) H 03/01/18 19:07 Statement of Medical Clearance: I have evaluated the patient, reviewed diagnostic information, and certify that the patient's medical condition is sufficiently stable that transfer to the psychiatric unit does not pose a significant risk of deterioration.
[2018-03-01 19:51] LABS: Bilirubin,Urine Negative (Negative); Blood,Urine Negative (Negative); Clarity,Urine Clear (Clear); Color,Urine Yellow (Yellow); Glucose,Urine (UA) Normal (Normal); Ketones,Urine Negative (Negative); Leukocyte Esterase,Urine Negative (Negative); Nitrite,Urine Negative (Negative); Protein,Urine Negative (Neg-Trace); Urobilinogen,Urine Normal (Normal)
[2018-03-01 19:52] LABS: Amphetamine Screen,Urine Negative ng/mL (Cutoff=1000); Barbiturate Screen,Urine Negative ng/mL (Cutoff=200); Benzodiazepines Screen,Urine Positive ng/mL (Cutoff=200); Cannabinoid Screen,Urine Negative ng/mL (Cutoff = 50); Cocaine Screen,Urine Negative ng/mL (Cutoff= 300); Opiate Screen,Urine Negative ng/mL (Cutoff=300); Phencyclidine Screen,Urine Negative ng/mL (Cutoff=25)
[2018-03-01] MEDS ORDERED: Ketorolac 30 MG/ML VIAL IM ONE (20:19)
[2018-03-01 20:20] LABS: Troponin I < 0.03 ng/mL (< 0.04)
[2018-03-01] MEDS ORDERED: *HR* LORazepam 1 MG TABLET PO ONE (21:14)
[2018-03-02] MEDS ORDERED: Haloperidol Lactate 5 MG/ML VIAL IM ONE (00:12)
[2018-03-02] MEDS ORDERED: Magnesium Sulfate 2 GM/100 ML PIGGYBACK IVPB ONE ×2 (00:54→01:45)
[2018-03-02] MEDS ORDERED: Valproic Acid INJ 500 MG in 0.9 % Sodium Chloride 100 ML IVPB ONE (00:55)
[2018-03-02] MEDS ORDERED: diazePAM 10 MG TABLET PO ONE (03:27)
[2018-03-02] MEDS ORDERED: *HR* LORazepam 2 MG/ML VIAL IVP PRN (03:39)
[2018-03-02] MEDS ORDERED: *HR* Promethazine 25 MG/ML VIAL IVP PRN (03:39)
--- NOTE | 2018-03-02 03:43 | Emergency Department Note ---
START Narrative - START START: Patient will be admitted for alcohol withdrawal. He did have DTs while in the department. He was given Valium. I did do CT scan of his head. He will be admitted for further management
[2018-03-02] MEDS: *HR* LORazepam 2 MG/ML VIAL IVP PRN ×4 (05:41→17:46)
[2018-03-02] MEDS: 0.9 % Sodium Chloride 1,000 ML IVC SCH ×2 (05:41→12:22)
--- NOTE | 2018-03-02 07:12 | Electrocardiograph Report ---
[address] [place] [address] Test Date: 2018-03-01 Pat Name: Lauri Chen Department: 102 Room: [facility] Gender: M Advanced Seal Delivery System: Ekp : 1955 Requested By: Kenyon John Order Number: [id number] Reading MD: Nima Johnson Measurements Intervals [place] Rate: 92 P: 16 [place]: 143 QRS: -23 QRSD: 82 T: 28 QT: 347 QTc: 397 Interpretive Statements SINUS RHYTHM INFERIOR MYOCARDIAL INFARCTION, OF INDETERMINATE AGE Electronically Signed On 03-02-2018 7:10:50 EDT by Nima Johnson
--- NOTE | 2018-03-02 11:00 | Internal Med History&Physical ---
Date of Encounter: 03/02/18 Time of Encounter: 10:54 Internal Medicine - H&P: HPI Chief complaint: Not feeling good going and withdrawal, chest pain Admitted From: Home Plans for Post Hospital Care: Home History of present illness: Mr. Chen is a 62 year old male with history of CAD, hypertension, hyperlipidemia, COPD, depression with suicidal ideation in the past, status post pancreatectomy, chronic alcohol abuse with multiple admission and frequent visitor to ER presented with complaint of atypical chest pain substernal bilateral nonradiating 5/10 not associated with lightheadedness, diaphoresis, nausea, vomiting. Patient drank alcohol last on Thursday night 2 days ago. Yesterday he started to feel shakiness withdrawal symptoms and also had suicidal thoughts therefore decided to come to ER. Initial troponin negative with no acute ST-T wave changes in the EKG but raised alcohol level. During my evaluation patient denied chest pain. During last admission patient had ischemic workup on 02/24/2018 -echocardiogram with EF 50% and nuclear stress tests negative for any ischemia or infarct Patient denies fever, chills, vomiting, no new change in headache but has chronic headache, abdominal pain, urinary or bowel complaint. Patient complained of slight nausea. Past Med Surg Social Fam HX - Past Medical History Medical history: COPD, CVA, GERD, hyperlipidemia, hypertension, kidney stones, migraine, myocardial infarction, other Psychiatric history: anxiety, bipolar, PTSD, prior suicide attempt, previous psychiatric hospitalization - Past Surgical History Surgical History: appendectomy, cholecystectomy, other - Social History Smoking Status: Current every day smoker Smokeless Tobacco Status: No Alcohol use: heavy, recent Drug use: none - Family History Mother Adopted: No Family Member Ethnicity: Non- Living Status: Still Living Hx Family Cardiac Disorders: Yes (HTN) Hx Family Respiratory Disorders: No Hx Family Cancer: Yes Hx Family GI Disorders: No Hx Family Endocrine Disorder: No Hx Family Neuromuscular Disorders: No Hx Family Neurologic Disorders: Yes (neuropathy) Hx Family HEENT Disorders: No Hx Family Autoimmune Disorders: No Father Family Member Ethnicity: Non- Living Status: Hx Family Cardiac Disorders: No Hx Family Respiratory Disorders: No Hx Family Cancer: No Hx Family GI Disorders: No Hx Family Endocrine Disorder: No Hx Family Neuromuscular Disorders: No Hx Family Neurologic Disorders: No Hx Family HEENT Disorders: No Hx Family Autoimmune Disorders: No Internal Medicine - H&P: Meds Amlodipine Besylate 10 mg PO DAILY 12/06/17 [History] Budesonide/Formoterol 160/4.5 [Symbicort 160/4.5] 2 puff IH BID 12/06/17 [ History] Lipase/Protease/Amylase [Creon Dr 12,000 Units Capsule] 36,000 cap PO TIDWM [History] Omeprazole [PriLOSEC] 20 mg PO DAILY 12/06/17 [History] Albuterol Sulfate [Albuterol Inhaler] 2 puff IH Q4H PRN 12/13/17 [History] Cholecalciferol (D-3) [Vitamin D] 1,000 unit PO DAILY 12/13/17 [History] Cyanocobalamin (Vitamin B-12) [Vitamin B-12] 500 mcg PO DAILY 12/13/17 [History] Folic Acid 1 mg PO DAILY 12/13/17 [History] L. Acidophilus/Pectin, [place] [Acidophilus Probiotic Capsule] 1 each PO BID [History] Magnesium Oxide [Mag-Ox] 400 mg PO DAILY 12/13/17 [History] Thiamine (B-1) [Vitamin B-1] 100 mg PO DAILY 12/13/17 [History] Escitalopram [Lexapro] 10 mg PO DAILY #30 tablet 12/24/17 [Rx] Quetiapine Fumarate [Seroquel] 100 mg PO HS #30 tablet 12/24/17 [Rx] Gabapentin [Neurontin] 600 mg PO TID 01/07/18 [History] SUMAtriptan succinate [Imitrex] 25 mg PO Q2H PRN 01/07/18 [History] Lisinopril 2.5 mg PO DAILY #30 tablet 02/24/18 [Rx] 3 Allergy/AdvReac Type Severity Reaction Status Date / Time Buspirone [From BuSpar] AdvReac See Verified 03/01/18 18:57 Comments tramadol AdvReac See Verified 03/01/18 18:57 Comments All Systems PM: as documented above in the HPI. - Constitutional Vitals: Temp Pulse Resp BP Pulse Ox 98.9 F 98 18 181/102 99 03/02/18 07:11 03/02/18 07:11 03/02/18 07:11 03/02/18 07:11 03/02/18 07:11 Exam: General appearance:flushed face, appearing anxious. Sitter at bedside Head exam: Atraumatic Eye exam: EOMI, PERRLA ENT exam: Moist oral mucosa Neck nontender, supple Respiratory exam: Clear to auscultation bilaterally Cardiovascular exam: Regular rhythm with slight tachycardia, no systolic murmur Abdominal exam: Soft, nontender, nondistended, positive bowel sounds. Multiple old surgical scar. Extremities exam: No calf tenderness, no pedal edema Present. Fine tremor both hands Skin-no rash, warm, dry, intact Neurological exam: Alert, awake, oriented 3, CN II-XII intact, no focal deficits. No facial droop. Normal speech. Normal gait. Internal Med - H&P Results - Labs CBC & Chem 7: 03/01/18 19:07 03/01/18 19:07 - Assessment and plan (1) Alcohol withdrawal Current Visit: Yes Status: Acute Assessment and plan: Chronic alcohol abuser with history of DTs in the past. Got multiple admission in the past. Active DTs at this time. Raised alcohol level. Continue ciwa protocol. Precaution fall, seizure, aspiration ordered. Will keep patient in ICU or stepdown ICU for close monitoring. Continue banana bag. Qualifiers: Complication of substance-induced condition: with unspecified complication Qualified Code(s): F10.239 - Alcohol dependence with withdrawal, unspecified (2) Chest pain Current Visit: Yes Status: Acute Assessment and plan: Atypical chest pain. Recently echocardiogram and a stress tests with no acute finding. Will keep patient in telemetry and serial troponin. Will continue aspirin, beta jo ann, statin, nitroglycerin, oxygen. If any concern that will consult armature rewinder. Qualifiers: Chest pain type: unspecified Qualified Code(s): R07.9 - Chest pain, unspecified (3) Depression with suicidal ideation Current Visit: Yes Status: Acute Assessment and plan: Patient had suicidal thoughts but no plan within a right to ER. At this time he denies but also it fluctuate. Suicide precaution. Sitter at the bedside. Will consult inpatient psychiatrist once medically cleared. Continue home medicine. (4) Hypertension Current Visit: Yes Status: Chronic Assessment and plan: Monitor BP. Continue home medicine. Hydralazine when necessary if needed Qualifiers: Hypertension type: essential hypertension Qualified Code(s): I10 - Essential (primary) hypertension (5) DVT prophylaxis Current Visit: Yes Status: Acute Assessment and plan: SCDs. - Time Spent With Patient Total time spent is greater than 50% in coordination of care (as documented) at patient's floor/unit and/or counseling patient: 25 - 35 minutes
[2018-03-02] MEDS ORDERED: Naloxone 0.4 MG/ML INJ IVP PRN (11:07)
[2018-03-02] MEDS ORDERED: 0.9 % Sodium Chloride 1,000 ML IV ONE (11:12)
[2018-03-02] MEDS ORDERED: Nitroglycerin 0.4 MG TAB.SUBL SL PRN (11:28)
[2018-03-02] MEDS: Gabapentin 300 MG CAPSULE PO SCH ×2 (14:59→22:53)
[2018-03-02] MEDS: Thiamine (B-1) 100 MG, Folic Acid 1 MG, MVI, adult with vitamin K 10 ML in 0.9 % Sodi... IVPB SCH (17:33)
[2018-03-02] MEDS: SUMAtriptan succinate 25 MG TABLET PO PRN (18:35)
[2018-03-02] MEDS: Budesonide/Formoterol 160/4.5 MDI IH SCH (20:37)
[2018-03-02] MEDS: Lactobacillus 1 EACH CAP.SPRINK PO SCH (22:52)
[2018-03-03] MEDS: SUMAtriptan succinate 25 MG TABLET PO PRN ×3 (00:52→21:02)
[2018-03-03] MEDS: *HR* LORazepam 2 MG/ML VIAL IVP PRN ×4 (03:52→21:03)
[2018-03-03 06:49] LABS: Basophils % 0.6 %; Eosinophils # 0.1 K/mcL (0.0-0.6); Eosinophils % 1.6 %; Hemoglobin 12.4 g/dL (12.9-16.9); Lymphocytes # 1.1 K/mcL (0.6-4.6); Lymphocytes % 21.7 %; Mean Corpuscular HGB Conc 33.5 g/dL (31.6-35.5); Mean Corpuscular Hemoglobin 29.6 pg (28.0-33.3); Mean Corpuscular Volume 88.3 fL (83.0-100.0); Monocytes # 0.4 K/mcL (0.0-1.3); Neutrophils # 3.4 K/mcL (1.6-8.9); Nucleated Red Blood Cells 0.8 /100 WBC (0); Platelet Count 143 K/mcL (140-400); Red Blood Count 4.19 M/mcL (4.19-5.50); Red Cell Distribution Width 19.2 % (11.5-14.5); Segmented Neutrophils % 66.1 %
[2018-03-03] MEDS: Magnesium Oxide 400 MG TABLET PO SCH (11:17)
[2018-03-03] MEDS: Thiamine (B-1) 100 MG TABLET PO SCH (11:17)
[2018-03-03] MEDS: Gabapentin 300 MG CAPSULE PO SCH ×3 (11:17→21:01)
[2018-03-03] MEDS: Aspirin 81 MG TAB.CHEW PO SCH (11:17)
[2018-03-03] MEDS: Cyanocobalamin (B-12) 1,000 MCG TABLET PO SCH (11:17)
[2018-03-03] MEDS: Folic Acid 1 MG TABLET PO SCH (11:17)
[2018-03-03] MEDS: amLODIPine 5 MG TABLET PO SCH (11:17)
[2018-03-03] MEDS: Cholecalciferol (D-3) 1,000 UNIT TABLET PO SCH (11:17)
[2018-03-03] MEDS: Lactobacillus 1 EACH CAP.SPRINK PO SCH ×2 (11:17→21:02)
[2018-03-03] MEDS: Nicotine 21 MG PATCH.TD24 TD SCH (15:02)
[2018-03-03] MEDS ORDERED: cloNIDine HCl 0.1 MG TABLET PO PRN (16:38)
[2018-03-03] MEDS: Thiamine (B-1) 100 MG, Folic Acid 1 MG, MVI, adult with vitamin K 10 ML in 0.9 % Sodi... IVPB SCH (17:56)
--- NOTE | 2018-03-03 21:35 | Internal Med Progress Note ---
Date of Encounter: 03/03/18 Time of Encounter: 13:15 - Assessment and plan (1) Alcohol withdrawal Current Visit: Yes Status: Acute Assessment and plan: serum alcohol level at admission was 286; now <10; signs and symptoms of withdrawal noted; continue CIWA protocol with PRN IV Ativan and PO Clonidine for uncontrolled HTN and tachycardia; supportive care; Thiamine and folate supplements; perinatal social worker consult; patient has multiple recurrent admissions for alcohol withdrawal, depression and suicidal ideation; Qualifiers: Complication of substance-induced condition: with unspecified complication Qualified Code(s): F10.239 - Alcohol dependence with withdrawal, unspecified (2) Depression with suicidal ideation Current Visit: Yes Status: Acute Assessment and plan: continue 1:1 sitter for patient safety; Psychiatry consult when medically stable ; he has been a patient at [facility]; clearly not working for him; (3) Hypertension Current Visit: Yes Status: Chronic Assessment and plan: uncontrolled, partly due to alcohol withdrawal; continue home meds- ACEI and Norvasc and use PRN PO Clonidine for appropriate BP control; Qualifiers: Hypertension type: essential hypertension Qualified Code(s): I10 - Essential (primary) hypertension (4) DVT prophylaxis Current Visit: Yes Status: Acute (5) Chest pain Current Visit: Yes Status: Acute Assessment and plan: likely related to alcoholic gastritis; continue Telemetry, recent stress testing negative; continue PPI; Qualifiers: Chest pain type: unspecified Qualified Code(s): R07.9 - Chest pain, unspecified (6) Coronary artery disease Current Visit: Yes Status: Chronic Qualifiers: Coronary Disease-Associated Artery/Lesion type: [place] artery [place] vs. transplanted heart: [place] heart Associated angina: without angina Qualified Code(s): I25.10 - Atherosclerotic heart disease of [place] coronary artery without angina pectoris (7) COPD (chronic obstructive pulmonary disease) Current Visit: Yes Status: Chronic Qualifiers: COPD type: emphysema Emphysema type: unspecified Qualified Code(s): J43.9 - Emphysema, unspecified - Time Spent With Patient Total time spent is greater than 50% in coordination of care (as documented) at patient's floor/unit and/or counseling patient: - Subjective Interval history: Reports nausea and headache; noted to have tremors and anxiety; also has some chest pain; cannot provide detailed history due to not feeling well; - Constitutional Vitals: Temp Pulse Resp BP Pulse Ox 98.2 F 97 18 162/106 97 03/03/18 19:04 03/03/18 19:04 03/03/18 19:04 03/03/18 19:04 03/03/18 19:04 General appearance: Present: mild distress, A&O X 3, answers questions appropriately - Respiratory Respiratory exam: Present: CTAB. Absent: accessory muscle use, rales, rhonchi, wheezes - Cardiovascular Cardiovascular exam: Present: RRR, +S1, +S2, tachycardia. Absent: diastolic murmur, gallop, rubs, systolic murmur - GI/Abdominal GI/Abdominal exam: Present: normal bowel sounds, soft (obese), no peritoneal signs. Absent: distended, tenderness - Extremities Exam Extremities exam: Present: full ROM, warm, radial pulses palpable and symmetrical. Absent: calf tenderness, cyanotic, pedal edema Additional comments: B/L UE tremors - Neurological Exam Neurological exam: Present: CN II-XII intact, oriented X3, no focal deficits. Absent: pronater drift, facial droop, speech deficit Internal Medicine: Result - Labs CBC & Chem 7: 03/03/18 06:31 03/01/18 19:07 Labs: Short CBC 03/03/18 Range/Units 06:31 WBC 5.1 (4.3-11.1) K/mcL Hgb 12.4 L (12.9-16.9) g/dL Hct 37.0 L (37.5-50.1) % Plt Count 143 (140-400) K/mcL Neutrophils # 3.4 (1.6-8.9) K/mcL - ABG Interpretation ABG results: PT/INR, D-dimer D-Dimer 337 ng/mLFEU (0-500) 03/01/18 20:17 Consult Discharge Plan - Plan Referrals: NONE,PCP [Primary Care Provider] -
[2018-03-04] MEDS: Budesonide/Formoterol 160/4.5 MDI IH SCH ×3 (00:04→10:55)
[2018-03-04] MEDS: 0.9 % Sodium Chloride 1,000 ML IVC SCH (01:04)
[2018-03-04] MEDS: *HR* LORazepam 2 MG/ML VIAL IVP PRN ×2 (01:05→09:37)
[2018-03-04] MEDS: *HR* Heparin 5,000 UNIT/ML VIAL SQ SCH ×2 (01:11→05:57)
--- NOTE | 2018-03-04 06:01 | Electrocardiograph Report ---
[facility] Test Date: 2018-03-02 Pat Name: Lauri Chen Department: 104 Room: 2SH25 Gender: M Sink Cutter: : 1955 Requested By: Anika Oates Order Number: [id number] Reading MD: Jameson Duron Measurements Intervals [place] Rate: 90 P: 52 NC: 177 QRS: -17 QRSD: 77 T: 40 QT: 366 QTc: 414 Interpretive Statements SINUS RHYTHM INFERIOR MYOCARDIAL INFARCTION [40+ ms Q WAVE AND/OR ST/T ABNORMALITY IN II/aVF], PROBABLY OLD WITH POSTERIOR EXTENSION [PROMIN Electronically Signed On 03-04-2018 5:59:56 EDT by Jameson Duron
[2018-03-04 06:12] LABS: Basophils % 0.7 %; Eosinophils # 0.1 K/mcL (0.0-0.6); Eosinophils % 1.8 %; Hematocrit 36.8 % (37.5-50.1); Hemoglobin 11.7 g/dL (12.9-16.9); Immature Granulocytes % 0.5 % (0-4); Lymphocytes # 0.7 K/mcL (0.6-4.6); Lymphocytes % 15.5 %; Mean Corpuscular HGB Conc 31.8 g/dL (31.6-35.5); Mean Corpuscular Volume 91.3 fL (83.0-100.0); Mean Platelet Volume 10.5 fL (9.4-12.4); Monocytes # 0.3 K/mcL (0.0-1.3); Monocytes % 7.7 %; Neutrophils # 3.2 K/mcL (1.6-8.9); Platelet Count 108 K/mcL (140-400); Red Blood Count 4.03 M/mcL (4.19-5.50); Red Cell Distribution Width 19.2 % (11.5-14.5); Segmented Neutrophils % 73.8 %
[2018-03-04 06:31] LABS: Alanine Aminotransferase 144 Units/L (7-52); Albumin 4.1 g/dL (3.5-5.7); Albumin/Globulin Ratio 1.1 (1.1-2.2); Alkaline Phosphatase 159 Units/L (34-104); Aspartate Amino Transferase 278 Units/L (13-39); BUN/Creatinine Ratio 16 (6-26); Bilirubin,Indirect 0.8 mg/dL (0.0-1.2); Bilirubin,Total 1.8 mg/dL (0.3-1.0); Blood Urea Nitrogen 13 mg/dL (8-23); Calcium 9.1 mg/dL (8.6-10.3); Carbon Dioxide 17 mEq/L (23-29); Chloride 108 mEq/L (98-107); Globulin 3.6 g/dL (2.4-3.5); Glucose 89 mg/dL (70-105); Magnesium 2.1 mg/dL (1.6-2.6); Osmolality,Calculated 282 (280-300); Potassium 3.7 mEq/L (3.5-5.1); Sodium 136 mEq/L (136-145); Total Protein 7.7 g/dL (6.4-8.9); eGFR For African Americans > 60 (> 60); eGFR For Non-African Americans > 60 (> 60)
[2018-03-04] MEDS: Nicotine 21 MG PATCH.TD24 TD SCH (09:35)
[2018-03-04] MEDS: Lactobacillus 1 EACH CAP.SPRINK PO SCH (09:36)
[2018-03-04] MEDS: Thiamine (B-1) 100 MG TABLET PO SCH (09:36)
[2018-03-04] MEDS: amLODIPine 5 MG TABLET PO SCH (09:36)
[2018-03-04] MEDS: Cholecalciferol (D-3) 1,000 UNIT TABLET PO SCH (09:36)
[2018-03-04] MEDS: Aspirin 81 MG TAB.CHEW PO SCH (09:36)
[2018-03-04] MEDS: Cyanocobalamin (B-12) 1,000 MCG TABLET PO SCH (09:36)
[2018-03-04] MEDS: Folic Acid 1 MG TABLET PO SCH (09:36)
[2018-03-04] MEDS: Magnesium Oxide 400 MG TABLET PO SCH (09:37)
[2018-03-04] MEDS: Gabapentin 300 MG CAPSULE PO SCH (09:37)
[2018-03-04 11:56] VITALS: BP 166/104
--- NOTE | 2018-03-04 12:09 | Electrocardiograph Report ---
[facility] Test Date: 2018-03-03 Pat Name: Lauri Chen Department: 104 Room: 2SH25 Gender: M Loftsman/Woman: : 1955 Requested By: Radha Alvarez Order Number: [id number] Reading MD: Jameson Duron Measurements Intervals [place] Rate: 84 P: 34 TN: 160 QRS: -17 QRSD: 78 T: 37 QT: 361 QTc: 402 Interpretive Statements SINUS RHYTHM INFERIOR MYOCARDIAL INFARCTION [40+ ms Q WAVE AND/OR ST/T ABNORMALITY IN II/aVF], PROBABLY OLD WITH POSTERIOR EXTENSION [PROMIN Electronically Signed On 03-04-2018 12:07:40 EDT by Jameson Duron
--- NOTE | 2018-03-04 12:37 | Consult Note ---
Date of Encounter: 03/04/18 Time of Encounter: 12:15 Assessment & Recommendation (1) Alcohol intoxication Current visit: Yes Status: Acute Qualifiers: Complication of substance-induced condition: uncomplicated Qualified Code(s ): F10.920 - Alcohol use, unspecified with intoxication, uncomplicated (2) Alcohol withdrawal Current visit: Yes Status: Acute Qualifiers: Complication of substance-induced condition: uncomplicated Qualified Code(s ): F10.230 - Alcohol dependence with withdrawal, uncomplicated (3) Mood disorder Current visit: Yes Status: Chronic (4) Altered mental status Current visit: Yes Status: Acute Qualifiers: Altered mental status type: unspecified Qualified Code(s): R41.82 - Altered mental status, unspecified (5) Suicidal ideation Current visit: Yes Status: Resolved History of Present Illness Requesting Physician: Gretel Alvarez MD History of present illness: Pt is a 62 yo,, male, who presents for Alcohol use D/O and Depressive D /O rule out subsance induced. Pt noted upon admission he was intoxicated and stated he was suicidal. Pt noted he is not suicidal anymore however feels that he is doing better. Pt noted a hx of depression. Pt noted he was intrested in starting acamprosate, pt was educated on the risks benifits and side effects of the medication and agreed to start it. Pt noted that he feels he feels safe and comfortable for discharge home. Pt denied any side effects to current medications Pt was in agreement with current treatment plan. Pt noted that he is doing alright today. Pt noted he slept alright last night. Pt noted his appetite is "better. Pt rated his depression a 6, on a scale of zero to ten with ten being the worst and zero being none. Pt rate his anxiety a 6, on the same scale. Pt denied any auditory or visiual hallucinations. Pt denied any current thoughts to harm himself or anyone else. Tobacco: 1 ppd Alcohol: fifth of Krogers vodka per day. Street: Denies any current Caffeine: 2-3 drinks per day Pt denies any hx of HIV, Hep C, TBI or Seizures. MSE: Alert and Oriented x4 Appearance: neatly groomed dressed in appropriate hopsital attire Behavior: friendly, courteous, polite Speech: Fluent, normal tone, normal rate Mood: okay Affect: mood congruent Thought content: no HI noted, no SI noted, No delusions noted Psychosis: no psychosis noted, currently not responding to internal stimuli.. Thought Process: Linear coherent goal directed Judgment: Intact. Insight: Intact. 1.Interval hx 2.Continue current medications 3.Review current labs 4.Pt had an opportunity to ask questions and discuss current treatment plan. 5.Supportive therapy was provided 6.Pt encouraged to consider group or individual therapy 7.Pt was in agreement with treatment plan. 8.Pt was educated on the risks benefits and side effects of current medications. 9. Abstain from any alcohol or illicit substances 10. Follow up with all scheduled appointments 11. Take all medications as prescribed. 12. Pt educated on substance abuse treatment progams and continues to refuse 13. Recommend start Acamprosate 666 mg PO TID for Alcohol use d/o pt was educated on the risks benifits and side effects of medications and agreed to initate medication. 14. Pt educated on 90 meetings in 90 day, staying sober and finding a sponsor 15. Pt Clear for D/C home once medically stable. CC: Gretel Alvarez MD Past Med Surg Social Fam HX - Past Medical History Medical history: COPD, CVA, GERD, hyperlipidemia, hypertension, kidney stones, migraine, myocardial infarction, other - Past Psychiatric History Psychiatric history: Reports: depression, other (substance abuse hx alcohol specifit) Family psychiatric history: Unknown Family History of Suicide: Unknown - Past Surgical History Surgical History: appendectomy, cholecystectomy, other - Social History Smoking Status: Current every day smoker Smokeless Tobacco Status: No Alcohol use: heavy, recent Drug use: none - Family History Mother Adopted: No Family Member Ethnicity: Non- Living Status: Still Living Hx Family Cardiac Disorders: Yes (HTN) Hx Family Respiratory Disorders: No Hx Family Cancer: Yes Hx Family GI Disorders: No Hx Family Endocrine Disorder: No Hx Family Neuromuscular Disorders: No Hx Family Neurologic Disorders: Yes (neuropathy) Hx Family HEENT Disorders: No Hx Family Autoimmune Disorders: No Father Family Member Ethnicity: Non- Living Status: Hx Family Cardiac Disorders: No Hx Family Respiratory Disorders: No Hx Family Cancer: No Hx Family GI Disorders: No Hx Family Endocrine Disorder: No Hx Family Neuromuscular Disorders: No Hx Family Neurologic Disorders: No Hx Family HEENT Disorders: No Hx Family Autoimmune Disorders: No Medications & Allergies Amlodipine Besylate 10 mg PO DAILY 12/06/17 [History] Budesonide/Formoterol 160/4.5 [Symbicort 160/4.5] 2 puff IH BID 12/06/17 [ History] Lipase/Protease/Amylase [Creon Dr 12,000 Units Capsule] 3 cap PO TIDWM 12/06/17 [History] Omeprazole [PriLOSEC] 20 mg PO DAILY 12/06/17 [History] Albuterol Sulfate [Albuterol Inhaler] 2 puff IH Q4H PRN 12/13/17 [History] Cholecalciferol (D-3) [Vitamin D] 1,000 unit PO DAILY 12/13/17 [History] Cyanocobalamin (Vitamin B-12) [Vitamin B-12] 500 mcg PO DAILY 12/13/17 [History] Folic Acid 1 mg PO DAILY 12/13/17 [History] L. Acidophilus/Pectin, [place] [Acidophilus Probiotic Capsule] 1 each PO BID [History] Magnesium Oxide [Mag-Ox] 400 mg PO DAILY 12/13/17 [History] Thiamine (B-1) [Vitamin B-1] 100 mg PO DAILY 12/13/17 [History] Escitalopram [Lexapro] 10 mg PO DAILY #30 tablet 12/24/17 [Rx] Quetiapine Fumarate [Seroquel] 100 mg PO HS #30 tablet 12/24/17 [Rx] Gabapentin [Neurontin] 600 mg PO TID 01/07/18 [History] SUMAtriptan succinate [Imitrex] 25 mg PO Q2H PRN 01/07/18 [History] Lisinopril 2.5 mg PO DAILY #30 tablet 02/24/18 [Rx] 3 Allergy/AdvReac Type Severity Reaction Status Date / Time Buspirone [From BuSpar] AdvReac See Verified 03/01/18 18:57 Comments tramadol AdvReac See Verified 03/01/18 18:57 Comments Review of Systems Constitutional: Denies: fever, chills, weakness, weight change Eyes: Denies: eye pain, vision change Ears, Nose, Throat: Denies: ear pain, throat pain, dental pain, hearing loss, congestion Cardiovascular: Denies: chest pain, palpitations, dyspnea on exertion Respiratory: Denies: cough, dyspnea, wheezes Gastrointestinal: Denies: abdominal pain, nausea, vomiting, diarrhea, constipation Genitourinary male: Denies: urgency, dysuria, frequency, genital lesions Musculoskeletal: Denies: joint swelling, joint pain Integumentary: Denies: rash, lesions, pruritus Neurological: Denies: headache, weakness, numbness, memory loss Psychiatric: Reports: depression Endocrine: Denies: fatigue, heat or cold intolerance Hematologic/Lymphatic: Denies: easy bruising, lymphadenopathy Allergic/Immunologic: Denies: urticaria, itchy eyes Psychiatry Exam - Constitutional Vitals: Temp Pulse Resp BP Pulse Ox 98.0 F 86 18 166/104 98 03/04/18 11:52 03/04/18 11:52 03/04/18 11:52 03/04/18 11:52 03/04/18 11:52 General appearance: age & developmentally appropriate - Musculoskeletal Gait: normal Strength & Tone: normal for patient - Psychiatric Patient Orientation: Yes Person, Yes Time, Yes Place, Yes Circumstance Level of alertness: Alert Behavior: calm, cooperative Psychomotor activity: Normal Eye Contact: Maintains Eye Contact Mood Description: Euthymic/stable Affect description: congruent with mood Speech Volume: Normal Speech pattern: normal rate, normal rhythm, normal tone, fluent Language & Vocabulary: consistent with education Thought Process: Intact, Logical, Linear, Goal Oriented Thought Content: Yes Intact Attention Span Ability: Capable of Sustained Attention Memory Description: Grossly Intact Patient Reliability: Reliable Historian Fund of knowledge: Yes average Intelligence Estimate: Average Judgment: Fair Insight: Full Results - Labs Labs: Laboratory Last Values WBC 4.4 K/mcL (4.3-11.1) 03/04/18 06:00 RBC 4.03 M/mcL (4.19-5.50) L 03/04/18 06:00 Hgb 11.7 g/dL (12.9-16.9) L 03/04/18 06:00 Hct 36.8 % (37.5-50.1) L 03/04/18 06:00 MCV 91.3 fL (83.0-100.0) 03/04/18 06:00 MCH 29.0 pg (28.0-33.3) 03/04/18 06:00 MCHC 31.8 g/dL (31.6-35.5) 03/04/18 06:00 RDW 19.2 % (11.5-14.5) H 03/04/18 06:00 Plt Count 108 K/mcL (140-400) L 03/04/18 06:00 MPV 10.5 fL (9.4-12.4) 03/04/18 06:00 Immature Gran % 0.5 % (0-4) 03/04/18 06:00 Seg Neutrophils % 73.8 % 03/04/18 06:00 Lymphocytes % 15.5 % 03/04/18 06:00 Monocytes % 7.7 % 03/04/18 06:00 Eosinophils % 1.8 % 03/04/18 06:00 Basophils % 0.7 % 03/04/18 06:00 Neutrophils # 3.2 K/mcL (1.6-8.9) 03/04/18 06:00 Lymphocytes # 0.7 K/mcL (0.6-4.6) 03/04/18 06:00 Monocytes # 0.3 K/mcL (0.0-1.3) 03/04/18 06:00 Eosinophils # 0.1 K/mcL (0.0-0.6) 03/04/18 06:00 Basophils # 0.0 K/mcL (0.0-0.2) 03/04/18 06:00 Nucleated RBCs/100 WBC 0.8 /100 WBC (0) H 03/03/18 06:31 D-Dimer 337 ng/mLFEU (0-500) 03/01/18 20:17 Sodium 136 mEq/L (136-145) 03/04/18 06:00 Potassium 3.7 mEq/L (3.5-5.1) 03/04/18 06:00 Chloride 108 mEq/L (98-107) H 03/04/18 06:00 Carbon Dioxide 17 mEq/L (23-29) L 03/04/18 06:00 BUN 13 mg/dL (8-23) 03/04/18 06:00 Creatinine 0.81 mg/dL (0.70-1.30) 03/04/18 06:00 Est GFR ( Amer) > 60 (> 60) 03/04/18 06:00 Est GFR (Non-Af Amer) > 60 (> 60) 03/04/18 06:00 BUN/Creatinine Ratio 16 (6-26) 03/04/18 06:00 Glucose 89 mg/dL (70-105) 03/04/18 06:00 POC Glucose 104 mg/dL (70-99) H 03/04/18 07:39 Calculated Osmolality 282 (280-300) 03/04/18 06:00 Calcium 9.1 mg/dL (8.6-10.3) 03/04/18 06:00 Magnesium 2.1 mg/dL (1.6-2.6) 03/04/18 06:00 Total Bilirubin 1.8 mg/dL (0.3-1.0) H 03/04/18 06:00 Direct Bilirubin 1.0 mg/dL (0.0-0.2) H 03/04/18 06:00 Indirect Bilirubin 0.8 mg/dL (0.0-1.2) 03/04/18 06:00 AST 278 Units/L (13-39) H 03/04/18 06:00 ALT 144 Units/L (7-52) H 03/04/18 06:00 Alkaline Phosphatase 159 Units/L (34-104) H 03/04/18 06:00 Troponin I 0.03 ng/mL (< 0.04) 03/02/18 17:36 Serum Total Protein 7.7 g/dL (6.4-8.9) 03/04/18 06:00 Albumin 4.1 g/dL (3.5-5.7) 03/04/18 06:00 Globulin 3.6 g/dL (2.4-3.5) H 03/04/18 06:00 Albumin/Globulin Ratio 1.1 (1.1-2.2) 03/04/18 06:00 Urine Color Yellow (Yellow) 03/01/18 19:21 Urine Clarity Clear (Clear) 03/01/18 19: Urine pH 7.0 pH Units (5.0-8.0) 03/01/18 19: Ur Specific [place] 1.010 (1.010-1.025) 03/01/18 19:21 Urine Protein Negative mg/dL (Neg-Trace) 03/01/18 19: Urine Glucose (UA) Normal mg/dL (Normal) 03/01/18 19: Urine Ketones Negative mg/dL (Negative) 03/01/18 19:21 Urine Blood Negative (Negative) 03/01/18 19:21 Urine Nitrite Negative (Negative) 03/01/18 19:21 Urine Bilirubin Negative (Negative) 03/01/18 19:21 Urine Urobilinogen Normal mg/dL (Normal) 03/01/18 19:21 Ur Leukocyte Esterase Negative (Negative) 03/01/18 19:21 Salicylates < 2.5 mg/dL (15.0-30.0) L 03/01/18 19:07 Urine Opiates Screen Negative ng/mL (Vybysr=757) 03/01/18 19:21 Acetaminophen < 10 mcg/mL (10-20) L 03/01/18 19:07 Ur Barbiturates Screen Negative ng/mL (Vpdnwg=590) 03/01/18 19:21 Ur Phencyclidine Scrn Negative ng/mL (Cutoff=25) 03/01/18 19:21 Ur Amphetamines Screen Negative ng/mL (Ztdaaf=7591) 03/01/18 19:21 U Benzodiazepines Scrn Positive ng/mL (Gbiewd=831) H 03/01/18 19:21 Urine Cocaine Screen Negative ng/mL (Cutoff= 300) 03/01/18 19:21 U Marijuana (THC) Screen Negative ng/mL (Cutoff = 50) 03/01/18 19:21 Ethyl Alcohol < 10 mg/dL (Less than 10) 03/02/18 06:05 Consult Discharge Plan - Plan Referrals: NONE,PCP [Primary Care Provider] -
--- NOTE | 2018-03-04 14:55 | Discharge Summary ---
- NOTES TO OUTPATIENT PROVIDER Notes to Outpatient Provider: recurrent admission for alcohol withdrawal and SI Date of Encounter: 03/04/18 Time of Encounter: 11:30 - Discharge Diagnosis (1) Alcohol withdrawal Priority: Primary Status: Acute Qualifiers: Complication of substance-induced condition: with unspecified complication Qualified Code(s): F10.239 - Alcohol dependence with withdrawal, unspecified (2) Depression with suicidal ideation Priority: Primary Status: Acute (3) Hypertension Priority: Secondary Status: Chronic Qualifiers: Hypertension type: essential hypertension Qualified Code(s): I10 - Essential (primary) hypertension (4) Chest pain Priority: Primary Status: Acute Qualifiers: Chest pain type: unspecified Qualified Code(s): R07.9 - Chest pain, unspecified (5) Coronary artery disease Priority: Secondary Status: Chronic Qualifiers: Coronary Disease-Associated Artery/Lesion type: [place] artery [place] vs. transplanted heart: [place] heart Associated angina: without angina Qualified Code(s): I25.10 - Atherosclerotic heart disease of [place] coronary artery without angina pectoris (6) COPD (chronic obstructive pulmonary disease) Priority: Secondary Status: Chronic Qualifiers: COPD type: emphysema Emphysema type: unspecified Qualified Code(s): J43.9 - Emphysema, unspecified Hospital course: Mr. Chen is a 62 year old male with the above medical problems, admitted with feeling sick and suicidal ideation. Patient was noted to have high alcohol level initially but quickly went into alcohol withdrawal, started on CIWA protocol with PRN IV Ativna and PO Clonidine. He was placed on 1:1 sitter for safety. He improved on this regimen; Psychiatry evaluation was done, recommended Acamprosate and cleared for discharge. Patient insists on being discharged today as he feels quite well, he is otherwise medically stable, with improved BP and HR. Discharge discussed with: patient, nurse - Time Spent with Patient Total time spent providing and/or coordinating discharge services: Greater than 30 minutes (40 min) - Discharge Medications Prescriptions: Acamprosate Calcium 666 mg PO TID #180 tablet. Aspirin 81 mg PO DAILY #30 tab.chew Atorvastatin [Lipitor] 20 mg PO HS #60 tablet Home Medications: Amlodipine Besylate 10 mg PO DAILY 12/06/17 [History] Budesonide/Formoterol 160/4.5 [Symbicort 160/4.5] 2 puff IH BID 12/06/17 [ History] Lipase/Protease/Amylase [Ananya Kern 12,000 Units Capsule] 3 cap PO TIDWM 12/06/17 [History] Omeprazole [PriLOSEC] 20 mg PO DAILY 12/06/17 [History] Albuterol Sulfate [Albuterol Inhaler] 2 puff IH Q4H PRN 12/13/17 [History] Cholecalciferol (D-3) [Vitamin D] 1,000 unit PO DAILY 12/13/17 [History] Cyanocobalamin (Vitamin B-12) [Vitamin B-12] 500 mcg PO DAILY 12/13/17 [History] Folic Acid 1 mg PO DAILY 12/13/17 [History] L. Acidophilus/Pectin, [place] [Acidophilus Probiotic Capsule] 1 each PO BID [History] Magnesium Oxide [Mag-Ox] 400 mg PO DAILY 12/13/17 [History] Thiamine (B-1) [Vitamin B-1] 100 mg PO DAILY 12/13/17 [History] Escitalopram [Lexapro] 10 mg PO DAILY #30 tablet 12/24/17 [Rx] Quetiapine Fumarate [Seroquel] 100 mg PO HS #30 tablet 12/24/17 [Rx] Gabapentin [Neurontin] 600 mg PO TID 01/07/18 [History] SUMAtriptan succinate [Imitrex] 25 mg PO Q2H PRN 01/07/18 [History] Acamprosate Calcium 666 mg PO TID #180 tablet. 03/04/18 [Rx] Aspirin 81 mg PO DAILY #30 tab.chew 03/04/18 [Rx] Atorvastatin [Lipitor] 20 mg PO HS #60 tablet 03/04/18 [Rx] Lisinopril 5 mg PO DAILY #30 tablet 03/04/18 [Rx] Allergies/Adverse Reactions: 3 Allergy/AdvReac Type Severity Reaction Status Date / Time Buspirone [From BuSpar] AdvReac See Verified 03/01/18 18:57 Comments tramadol AdvReac See Verified 03/01/18 18:57 Comments Date of admission: 03/02/18 11:07 Primary care physician: PCP NONE Consults: 03/04/18 10:45 Consult to Psychiatry [CONS] Routine Consulting Provider: Psychiatry Jane Reason for Consult: Suicidal ideation, h/o- depression and multiple Psych admissions, chronic alcoholic Call Completed: Yes Discharging clinician: Gretel Alvarez Anticipated date of discharge: 03/04/18 - Constitutional Vitals: Temp Pulse Resp BP Pulse Ox 98.0 F 86 18 166/104 98 03/04/18 11:52 03/04/18 11:52 03/04/18 11:52 03/04/18 11:52 03/04/18 11:52 General appearance: Present: A&O X 3, answers questions appropriately - Respiratory Respiratory exam: Present: CTAB. Absent: accessory muscle use, rales, rhonchi, wheezes - Cardiovascular Cardiovascular exam: Present: RRR, +S1, +S2. Absent: diastolic murmur, gallop, rubs, systolic murmur - Patient Status Disposition: Home, Self-Care Condition: Fair Functional capacity at discharge: independent ambulation Overall status at discharge: patient is progressing back to baseline - Discharge Instructions Follow Up With: NONE,PCP [Primary Care Provider] - Additional Instructions: F/up with PCP in 1-2 weeks - Diet and Activity Activity: resume usual activities as tolerated Diet: low fat, low cholesterol, low salt diet, other (alcohol abstinence)
== END 2018-03-04 15:42 | disposition home or self-care (01) | DRG 897 ==
LOC: 2SOUTHHOLD 18:43 → EMEROO 18:43 → 2SOUTHHOLD 03-02 04:19 → SUATTDRO 03-02 11:07
PROVIDERS: ADMIT Internal Medicine; ATTEND Internal Medicine

== ENCOUNTER 2018-03-11 18:42 | Inpatient (IN) ==
[2018-03-11 19:12] LABS: Bilirubin,Urine Small (Negative); Blood,Urine Negative (Negative); Clarity,Urine Clear (Clear); Color,Urine Dark Yellow (Yellow); Glucose,Urine (UA) Normal (Normal); Ketones,Urine Negative (Negative); Leukocyte Esterase,Urine Trace (Negative); Nitrite,Urine Negative (Negative); PH,Urine 6.5 pH Units (5.0-8.0); Protein,Urine 100 mg/dL (Neg-Trace); Specific Gravity,Urine 1.017 (1.010-1.025)
[2018-03-11 19:15] LABS: Bacteria,Urine None Seen per hpf (None-Few); Hyaline Casts,Urine None Seen per lpf (None-Few); RBC,Urine 0-3 per hpf (0-3); Squamous Epithelial Cell,Urine Few per lpf (None-Few); WBC,Urine 0-3 per hpf (0-3)
[2018-03-11 19:24] LABS: Basophils % 0.8 %; Immature Granulocytes % 0.5 % (0-4)
[2018-03-11] MEDS ORDERED: MVI, adult with vitamin K 10 ML in 0.9 % Sodium Chloride 1,000 ML IVC ONE (19:24)
--- NOTE | 2018-03-11 19:24 | Emergency Department Note ---
Disposition Clinical Impression: Suicidal ideation, Abdominal pain Disposition: Admitted As Inpatient Condition: Fair Time of Disposition: 20:17 Psych HPI - General Chief Complaint: ED Psychiatric Symptoms Stated Complaint: SI Time Seen by Provider: 03/11/18 18:52 Source: patient, EMS Nursing Notes Reviewed: Yes Vital Signs Reviewed: Yes - History of Present Illness HPI Narrative: Mr. Chen is a 62 year-old male who presents to the emergency department with depression and suicidal ideation since this morning. Known history of alcohol abuse with multiple admissions for alcohol intoxication and suicidal ideation. Pt reports he drinks approximately a fifth of vodka daily and that his last drink was 3-4 hours prior to arrival. He admits to thoughts of self-harm, but denies having a plan to harm himself. He denies any homicidal ideation. He denies any firearms in the home, further states he has no sharp knives at home. Patient admits to feeling depressed this morning and feels anxious. He denies auditory/visual/tactile hallucinations, tremors, chest pain, abdominal pain, difficulty breathing, nausea, vomiting. - Related Data Home Medications Medication Instructions Recorded Confirmed Amlodipine Besylate 10 mg PO DAILY 12/06/17 03/11/18 Budesonide/Formoterol 160/4.5 2 puff IH BID 12/06/17 03/11/18 [Symbicort 160/4.5] Lipase/Protease/Amylase [[place] Dr 3 cap PO TIDWM 12/06/17 03/11/18 12,000 Units Capsule] Omeprazole [PriLOSEC] 20 mg PO DAILY 12/06/17 03/11/18 Albuterol Sulfate [Albuterol 2 puff IH Q4H PRN 12/13/17 03/11/18 Inhaler] Cholecalciferol (D-3) [Vitamin D] 1,000 unit PO DAILY 12/13/17 03/11/18 Cyanocobalamin (Vitamin B-12) 500 mcg PO DAILY 12/13/17 03/11/18 [Vitamin B-12] Folic Acid 1 mg PO DAILY 12/13/17 03/11/18 L. Acidophilus/Pectin, [place] 1 each PO BID 12/13/17 03/11/18 [Acidophilus Probiotic Capsule] Magnesium Oxide [Mag-Ox] 400 mg PO DAILY 12/13/17 03/11/18 Thiamine (B-1) [Vitamin B-1] 100 mg PO DAILY 12/13/17 03/11/18 Gabapentin [Neurontin] 600 mg PO TID 01/07/18 03/11/18 SUMAtriptan succinate [Imitrex] 25 mg PO Q2H PRN 01/07/18 03/11/18 Previous Rx's Medication Instructions Recorded Escitalopram [Lexapro] 10 mg PO DAILY #30 tablet 12/24/17 Quetiapine Fumarate [Seroquel] 100 mg PO HS #30 tablet 12/24/17 Acamprosate Calcium 666 mg PO TID #180 tablet. 03/04/18 Aspirin 81 mg PO DAILY #30 tab.chew 03/04/18 Atorvastatin [Lipitor] 20 mg PO HS #60 tablet 03/04/18 Lisinopril 5 mg PO DAILY #30 tablet 03/04/18 Allergies Allergy/AdvReac Type Severity Reaction Status Date / Time Buspirone [From BuSpar] AdvReac See Verified 03/11/18 20:07 Comments tramadol AdvReac See Verified 03/11/18 20:07 Comments All systems ED: reviewed and negative except as stated. Review of Systems: As Per HPI Constitutional: Reports: as per HPI. Denies: fever, chills Cardiovascular: Reports: as per HPI. Denies: chest pain Respiratory: Reports: as per HPI. Denies: dyspnea Gastrointestinal: Reports: as per HPI. Denies: abdominal pain Neurological: Reports: as per HPI, numbness (bilateral fingers, toes) Psychiatric: Reports: as per HPI, anxiety, depression, suicidal thoughts. Denies: homicidal thoughts, auditory hallucinations, visual hallucinations Past Medical History - Past Medical History Medical history: Reports: COPD, CVA, GERD, hyperlipidemia, hypertension, kidney stones, migraine, myocardial infarction, other Surgical history: Reports: appendectomy, cholecystectomy, other Psychiatric history: Reports: depression, other - Social History Smoking Status: Current every day smoker Smokeless Tobacco Status: No Alcohol use: Reports: heavy, recent Drug use: Reports: none Physical Exam - General General appearance: alert, appears intoxicated, anxious, other (very tearful during interview and exam) - Head Head exam: normocephalic, normal inspection - Eye Eye exam: Present: normal appearance - Neck Neck exam: Present: normal inspection, other (supple) - Chest Chest inspection: Present: symmetric chest wall rise. Absent: tenderness - Respiratory Respiratory exam: Present: normal lung sounds bilaterally. Absent: respiratory distress, wheezes - Cardiovascular Cardiovascular exam: Present: regular rate, normal rhythm, normal heart sounds ( distant), +S1, +S2 - Abdominal Exam Abdominal exam: Present: soft, Non-Tender. Absent: guarding, rebound, rigidity - Extremities Exam Extremities exam: Present: other (moves all 4 extremities spontaneously) - Back Exam Back exam: Present: normal inspection - Neurological Exam Neurological exam: Present: alert, oriented X3, other (moves all extremities spontaneously; no focal neurological deficits) - Psychiatric Psychiatric exam: Present: depressed, anxious, suicidal ideation - Skin Skin exam: Present: warm, dry, intact Course Vital Signs Temperature 98.7 F 03/11/18 18:44 Pulse Rate 101 03/11/18 18:44 Respiratory Rate 16 03/11/18 18:44 Blood Pressure 148/85 03/11/18 18:44 O2 Sat by Pulse Oximetry 96 03/11/18 18:44 Temperature 99.0 F 03/12/18 00:05 Pulse Rate 95 03/12/18 00:05 Respiratory Rate 14 03/12/18 00:05 Blood Pressure 122/80 03/12/18 00:05 O2 Sat by Pulse Oximetry 95 03/12/18 00:05 Oxygen Delivery Oxygen Delivery Room Air Psych - MDM Narrative Medical decision making narrative: On arrival the patient is afebrile, slightly tachycardic at 101, breathing comfortably and saturating well on room air. Aside from suicidal ideation, pt endorses no other complaints. Potassium 3.4, chloride 97, elevated liver enzymes , lipase WNL @ 68, ethyl alcohol level 359, troponin <0.03. Last consumption of alcohol reported to be 3-4 hours prior to arrival. At this time he denies symptoms of alcohol withdrawal. IV fluid and electrolyte replacement with banana bag. Combination of benadryl, ativan, and haldol given for patient's anxiety. Pt will need to be admitted for medical clearance prior to inpatient psychiatric hospitalization. 20:[address] Walker has accepted patient for further evaluation and care. - Medical Records Medical records reviewed: Yes I reviewed the patient's medical records. - Lab Data Lab results reviewed: Yes I reviewed the patient's lab results. Result diagrams: 03/11/18 19:09 03/11/18 19:09 Lab Results 03/11/18 03/11/18 03/11/18 Range/Units 18:58 18:58 19:09 WBC 6.3 (4.3-11.1) K/mcL RBC 5.10 (4.19-5.50) M/mcL Hgb 15.3 (12.9-16.9) g/dL Hct 44.8 (37.5-50.1) % MCV 87.8 (83.0-100.0) fL MCH 30.0 (28.0-33.3) pg MCHC 34.2 (31.6-35.5) g/dL RDW 19.0 H (11.5-14.5) % Plt Count 177 (140-400) K/mcL MPV 10.4 (9.4-12.4) fL Immature Gran % 0.5 (0-4) % Seg Neutrophils % 60.9 % Lymphocytes % 28.5 % Monocytes % 7.6 % Eosinophils % 1.7 % Basophils % 0.8 % Neutrophils # 3.8 (1.6-8.9) K/mcL Lymphocytes # 1.8 (0.6-4.6) K/mcL Monocytes # 0.5 (0.0-1.3) K/mcL Eosinophils # 0.1 (0.0-0.6) K/mcL Basophils # 0.1 (0.0-0.2) K/mcL Sodium (136-145) mEq/L Potassium (3.5-5.1) mEq/L Chloride (98-107) mEq/L Carbon Dioxide (23-29) mEq/L BUN (8-23) mg/dL Creatinine (0.70-1.30) mg/dL Est GFR ( Amer) (> 60) Est GFR (Non-Af Amer) (> 60) BUN/Creatinine Ratio (6-26) Glucose (70-105) mg/dL Calculated Osmolality (280-300) Calcium (8.6-10.3) mg/dL Total Bilirubin (0.3-1.0) mg/dL Direct Bilirubin (0.0-0.2) mg/dL Indirect Bilirubin (0.0-1.2) mg/dL AST (13-39) Units/L ALT (7-52) Units/L Alkaline Phosphatase (34-104) Units/L Troponin I (< 0.04) ng/mL Serum Total Protein (6.4-8.9) g/dL Albumin (3.5-5.7) g/dL Globulin (2.4-3.5) g/dL Albumin/Globulin Ratio (1.1-2.2) Lipase (11-82) Units/L Urine Color Dark Yellow (Yellow) Urine Clarity Clear (Clear) Urine pH 6.5 (5.0-8.0) pH Units Ur Specific Nabb 1.017 (1.010-1.025) Urine Protein 100 H (Neg-Trace) mg/dL Urine Glucose (UA) Normal (Normal) mg/dL Urine Ketones Negative (Negative) mg/dL Urine Blood Negative (Negative) Urine Nitrite Negative (Negative) Urine Bilirubin Small H (Negative) Urine Urobilinogen 2.0 H (Normal) mg/dL Ur Leukocyte Esterase Trace H (Negative) Urine Microscopic RBC 0-3 (0-3) per hpf Urine Microscopic WBC 0-3 (0-3) per hpf Ur Squamous Epith Cells Few (None-Few) per lpf Urine Bacteria None Seen (None-Few) per hpf Hyaline Casts None Seen (None-Few) per lpf Salicylates (15.0-30.0) mg/dL Urine Opiates Screen Negative (Kozngf=911) ng/mL Acetaminophen (10-20) mcg/mL Ur Barbiturates Screen Negative (Oxpkfk=332) ng/mL Ur Phencyclidine Scrn Negative (Cutoff=25) ng/mL Ur Amphetamines Screen Negative (Fbsanc=3668) ng/mL U Benzodiazepines Scrn Positive H (Zqyitq=677) ng/mL Urine Cocaine Screen Negative (Cutoff= 300) ng/mL U Marijuana (THC) Screen Negative (Cutoff = 50) ng/mL Ethyl Alcohol (Less than 10) mg/dL 03/11/18 Range/Units 19:09 WBC (4.3-11.1) K/mcL RBC (4.19-5.50) M/mcL Hgb (12.9-16.9) g/dL Hct (37.5-50.1) % MCV (83.0-100.0) fL MCH (28.0-33.3) pg MCHC (31.6-35.5) g/dL RDW (11.5-14.5) % Plt Count (140-400) K/mcL MPV (9.4-12.4) fL Immature Gran % (0-4) % Seg Neutrophils % % Lymphocytes % % Monocytes % % Eosinophils % % Basophils % % Neutrophils # (1.6-8.9) K/mcL Lymphocytes # (0.6-4.6) K/mcL Monocytes # (0.0-1.3) K/mcL Eosinophils # (0.0-0.6) K/mcL Basophils # (0.0-0.2) K/mcL Sodium 136 (136-145) mEq/L Potassium 3.4 L (3.5-5.1) mEq/L Chloride 97 L (98-107) mEq/L Carbon Dioxide 23 (23-29) mEq/L BUN 8 (8-23) mg/dL Creatinine 0.94 (0.70-1.30) mg/dL Est GFR ( Amer) > 60 (> 60) Est GFR (Non-Af Amer) > 60 (> 60) BUN/Creatinine Ratio 9 (6-26) Glucose 105 (70-105) mg/dL Calculated Osmolality 281 (280-300) Calcium 9.7 (8.6-10.3) mg/dL Total Bilirubin 1.1 H (0.3-1.0) mg/dL Direct Bilirubin 0.5 H (0.0-0.2) mg/dL Indirect Bilirubin 0.6 (0.0-1.2) mg/dL AST 375 H (13-39) Units/L ALT 173 H (7-52) Units/L Alkaline Phosphatase 217 H (34-104) Units/L Troponin I < 0.03 (< 0.04) ng/mL Serum Total Protein 9.4 H (6.4-8.9) g/dL Albumin 4.7 (3.5-5.7) g/dL Globulin 4.7 H (2.4-3.5) g/dL Albumin/Globulin Ratio 1.0 L (1.1-2.2) Lipase 68 (11-82) Units/L Urine Color (Yellow) Urine Clarity (Clear) Urine pH (5.0-8.0) pH Units Ur Specific [place]abb (1.010-1.025) Urine Protein (Neg-Trace) mg/dL Urine Glucose (UA) (Normal) mg/dL Urine Ketones (Negative) mg/dL Urine Blood (Negative) Urine Nitrite (Negative) Urine Bilirubin (Negative) Urine Urobilinogen (Normal) mg/dL Ur Leukocyte Esterase (Negative) Urine Microscopic RBC (0-3) per hpf Urine Microscopic WBC (0-3) per hpf Ur Squamous Epith Cells (None-Few) per lpf Urine Bacteria (None-Few) per hpf Hyaline Casts (None-Few) per lpf Salicylates 5.3 L (15.0-30.0) mg/dL Urine Opiates Screen (Hrslar=585) ng/mL Acetaminophen < 10 L (10-20) mcg/mL Ur Barbiturates Screen (Kokhru=963) ng/mL Ur Phencyclidine Scrn (Cutoff=25) ng/mL Ur Amphetamines Screen (Mcqain=6217) ng/mL U Benzodiazepines Scrn (Fxvrvp=198) ng/mL Urine Cocaine Screen (Cutoff= 300) ng/mL U Marijuana (THC) Screen (Cutoff = 50) ng/mL Ethyl Alcohol 359 H (Less than 10) mg/dL Psychiatric Medical Clearance - Medical Clearance Checklist Medical History: No Social History Section defined Current Vitals: Last Vital Signs Temp 99.0 F 03/12/18 00:05 Pulse 95 03/12/18 00:05 Resp 14 03/12/18 00:05 BP 122/80 03/12/18 00:05 Pulse Ox 95 03/12/18 00:05 Psychiatric Lab Panel: Drug Levels and Toxicity 03/11/18 03/11/18 18:58 19:09 Urine Opiates Screen Negative Acetaminophen < 10 L Ur Barbiturates Screen Negative Ur Phencyclidine Scrn Negative Ur Amphetamines Screen Negative U Benzodiazepines Scrn Positive H Urine Cocaine Screen Negative U Marijuana (THC) Screen Negative Ethyl Alcohol 359 H Abnormal Labs: Abnormal lab results RDW 19.0 % (11.5-14.5) H 03/11/18 19:09 Potassium 3.4 mEq/L (3.5-5.1) L 03/11/18 19:09 Chloride 97 mEq/L (98-107) L 03/11/18 19:09 Total Bilirubin 1.1 mg/dL (0.3-1.0) H 03/11/18 19:09 Direct Bilirubin 0.5 mg/dL (0.0-0.2) H 03/11/18 19:09 AST 375 Units/L (13-39) H 03/11/18 19:09 ALT 173 Units/L (7-52) H 03/11/18 19:09 Alkaline Phosphatase 217 Units/L (34-104) H 03/11/18 19:09 Serum Total Protein 9.4 g/dL (6.4-8.9) H 03/11/18 19:09 Globulin 4.7 g/dL (2.4-3.5) H 03/11/18 19:09 Albumin/Globulin Ratio 1.0 (1.1-2.2) L 03/11/18 19:09 Urine Protein 100 mg/dL (Neg-Trace) H 03/11/18 18:58 Urine Bilirubin Small (Negative) H 03/11/18 18:58 Urine Urobilinogen 2.0 mg/dL (Normal) H 03/11/18 18:58 Ur Leukocyte Esterase Trace (Negative) H 03/11/18 18:58 Salicylates 5.3 mg/dL (15.0-30.0) L 03/11/18 19:09 Acetaminophen < 10 mcg/mL (10-20) L 03/11/18 19:09 U Benzodiazepines Scrn Positive ng/mL (Suicnf=027) H 03/11/18 18:58 Ethyl Alcohol 359 mg/dL (Less than 10) H 03/11/18 19:09 Statement of Medical Clearance: I have evaluated the patient, reviewed diagnostic information, and certify that the patient's medical condition is sufficiently stable that transfer to the psychiatric unit does not pose a significant risk of deterioration. Attestation Statement - Attestation Attestation: I, Kenyon John, examined this patient and my medical decision-making was reviewed with the SURGICAL DRESSING MAKER/PA/Advanced Practice Nurse/Resident Physician. I agree with the documented findings, disposition and treatment plan as described except to the extent set forth below. 62-year-old male presents emergency Department with concerns of suicidal ideation and abdominal pain. Patient's abdominal pain is diffuse and aching, as been present over the past 12 hours. He has no tenderness to palpation on the exam. Does not have a fever or elevation of his white blood cell count. Patient is tolerating by mouth intake well prior to evaluation emergency department. Patient states he is suicidal and wants to end his life. We will obtain basic laboratory evaluation and then patient will be admitted for further care and observation. He has required admission for EtOH withdrawal prior to behavioral health evaluation.
[2018-03-11 19:28] LABS: Basophils # 0.1 K/mcL (0.0-0.2); Eosinophils # 0.1 K/mcL (0.0-0.6); Eosinophils % 1.7 %; Hematocrit 44.8 % (37.5-50.1); Hemoglobin 15.3 g/dL (12.9-16.9); Lymphocytes # 1.8 K/mcL (0.6-4.6); Lymphocytes % 28.5 %; Mean Corpuscular HGB Conc 34.2 g/dL (31.6-35.5); Mean Corpuscular Volume 87.8 fL (83.0-100.0); Mean Platelet Volume 10.4 fL (9.4-12.4); Monocytes # 0.5 K/mcL (0.0-1.3); Monocytes % 7.6 %; Neutrophils # 3.8 K/mcL (1.6-8.9); Platelet Count 177 K/mcL (140-400); Segmented Neutrophils % 60.9 %
[2018-03-11] MEDS ORDERED: *HR* LORazepam 2 MG/ML VIAL IVP ONE (19:35)
[2018-03-11] MEDS ORDERED: Haloperidol Lactate 5 MG/ML VIAL IVP ONE (19:35)
[2018-03-11 19:36] LABS: Amphetamine Screen,Urine Negative ng/mL (Cutoff=1000); Barbiturate Screen,Urine Negative ng/mL (Cutoff=200); Benzodiazepines Screen,Urine Positive ng/mL (Cutoff=200); Cannabinoid Screen,Urine Negative ng/mL (Cutoff = 50); Cocaine Screen,Urine Negative ng/mL (Cutoff= 300); Opiate Screen,Urine Negative ng/mL (Cutoff=300); Phencyclidine Screen,Urine Negative ng/mL (Cutoff=25)
[2018-03-11 19:43] LABS: Acetaminophen < 10 mcg/mL (10-20); Alanine Aminotransferase 173 Units/L (7-52); Albumin 4.7 g/dL (3.5-5.7); Alkaline Phosphatase 217 Units/L (34-104); Aspartate Amino Transferase 375 Units/L (13-39); BUN/Creatinine Ratio 9 (6-26); Bilirubin,Direct 0.5 mg/dL (0.0-0.2); Bilirubin,Indirect 0.6 mg/dL (0.0-1.2); Bilirubin,Total 1.1 mg/dL (0.3-1.0); Blood Urea Nitrogen 8 mg/dL (8-23); Calcium 9.7 mg/dL (8.6-10.3); Carbon Dioxide 23 mEq/L (23-29); Chloride 97 mEq/L (98-107); Ethanol 359 mg/dL (Less than 10); Globulin 4.7 g/dL (2.4-3.5); Glucose 105 mg/dL (70-105); Lipase 68 Units/L (11-82); Osmolality,Calculated 281 (280-300); Potassium 3.4 mEq/L (3.5-5.1); Salicylate 5.3 mg/dL (15.0-30.0); Sodium 136 mEq/L (136-145); Total Protein 9.4 g/dL (6.4-8.9); Troponin I < 0.03 ng/mL (< 0.04); eGFR For African Americans > 60 (> 60); eGFR For Non-African Americans > 60 (> 60)
[2018-03-11] MEDS ORDERED: Naloxone 0.4 MG/ML INJ IVP PRN (21:59)
[2018-03-11] MEDS ORDERED: *HR* LORazepam 2 MG/ML VIAL IVP PRN (22:00)
--- NOTE | 2018-03-11 22:11 | Internal Med History&Physical ---
Date of Encounter: 03/11/18 Time of Encounter: 20:00 Internal Medicine - H&P: HPI Chief complaint: Suicidal idea Admitted From: Home Plans for Post Hospital Care: Home History of present illness: Mr. Chen is a 62 year old male presented to ER for suicidal idea. Past medical history is significant for migraine, alcoholism, history of pancreatitis S/P surgery. Patient said he had a bad migraine headache. He has idea to kill himself but has no attempt yet. Patient is chronic alcoholism patient. Patient denies nausea, vomiting, diaphoresis, shaking, abdominal pain. Patient complaint of headache, no fever. Patient was admitted to medical floor for concern of alcohol withdrawal. Past Med Surg Social Fam HX - Past Medical History Medical history: COPD, CVA, GERD, hyperlipidemia, hypertension, kidney stones, migraine, myocardial infarction, other Psychiatric history: depression, other - Past Surgical History Surgical History: appendectomy, cholecystectomy, other - Social History Smoking Status: Current every day smoker Smokeless Tobacco Status: No Alcohol use: heavy, recent Drug use: none - Family History Mother Adopted: No Family Member Ethnicity: Non- Living Status: Still Living Hx Family Cardiac Disorders: Yes (HTN) Hx Family Respiratory Disorders: No Hx Family Cancer: Yes Hx Family GI Disorders: No Hx Family Endocrine Disorder: No Hx Family Neuromuscular Disorders: No Hx Family Neurologic Disorders: Yes (neuropathy) Hx Family HEENT Disorders: No Hx Family Autoimmune Disorders: No Father Family Member Ethnicity: Non- Living Status: Hx Family Cardiac Disorders: No Hx Family Respiratory Disorders: No Hx Family Cancer: No Hx Family GI Disorders: No Hx Family Endocrine Disorder: No Hx Family Neuromuscular Disorders: No Hx Family Neurologic Disorders: No Hx Family HEENT Disorders: No Hx Family Autoimmune Disorders: No Internal Medicine - H&P: Meds Amlodipine Besylate 10 mg PO DAILY 12/06/17 [History] Budesonide/Formoterol 160/4.5 [Symbicort 160/4.5] 2 puff IH BID 12/06/17 [ History] Lipase/Protease/Amylase [Ananya [place] 12,000 Units Capsule] 3 cap PO TIDWM 12/06/17 [History] Omeprazole [PriLOSEC] 20 mg PO DAILY 12/06/17 [History] Albuterol Sulfate [Albuterol Inhaler] 2 puff IH Q4H PRN 12/13/17 [History] Cholecalciferol (D-3) [Vitamin D] 1,000 unit PO DAILY 12/13/17 [History] Cyanocobalamin (Vitamin B-12) [Vitamin B-12] 500 mcg PO DAILY 12/13/17 [History] Folic Acid 1 mg PO DAILY 12/13/17 [History] L. Acidophilus/Pectin, [place] [Acidophilus Probiotic Capsule] 1 each PO BID [History] Magnesium Oxide [Mag-Ox] 400 mg PO DAILY 12/13/17 [History] Thiamine (B-1) [Vitamin B-1] 100 mg PO DAILY 12/13/17 [History] Escitalopram [Lexapro] 10 mg PO DAILY #30 tablet 12/24/17 [Rx] Quetiapine Fumarate [Seroquel] 100 mg PO HS #30 tablet 12/24/17 [Rx] Gabapentin [Neurontin] 600 mg PO TID 01/07/18 [History] SUMAtriptan succinate [Imitrex] 25 mg PO Q2H PRN 01/07/18 [History] Acamprosate Calcium 666 mg PO TID #180 tablet. 03/04/18 [Rx] Aspirin 81 mg PO DAILY #30 tab.chew 03/04/18 [Rx] Atorvastatin [Lipitor] 20 mg PO HS #60 tablet 03/04/18 [Rx] Lisinopril 5 mg PO DAILY #30 tablet 03/04/18 [Rx] 3 Allergy/AdvReac Type Severity Reaction Status Date / Time Buspirone [From BuSpar] AdvReac See Verified 03/11/18 20:07 Comments tramadol AdvReac See Verified 03/11/18 20:07 Comments All Systems PM: A 10-system review of systems was performed and is negative for pertinent findings except as documented above in the HPI. - Constitutional Vitals: Temp Pulse Resp BP Pulse Ox 98.7 F 90 20 106/64 97 03/11/18 18:44 03/11/18 20:42 03/11/18 20:42 03/11/18 20:42 03/11/18 20:42 General appearance: Present: A&O X 3, no acute distress, answers questions appropriately - Head Head exam: Present: atraumatic, normocephalic - Eye Eye exam: Present: PERRL, conjuntiva pink, sclera anicteric Pupils: Present: PERRL - Neck Neck exam general surgery: Present: supple, trachea midline. Absent: lymphadenopathy - Respiratory Respiratory exam: Present: CTAB. Absent: accessory muscle use, rales, rhonchi, wheezes - Cardiovascular Cardiovascular exam: Present: RRR, +S1, +S2. Absent: diastolic murmur, gallop, rubs, systolic murmur - GI/Abdominal GI/Abdominal exam: Present: normal bowel sounds, soft, no peritoneal signs. Absent: distended, tenderness - Extremities Exam Extremities exam: Present: warm, radial pulses palpable and symmetrical. Absent : calf tenderness, cyanotic, pedal edema - Neurological Exam Neurological exam: Present: CN II-XII intact, oriented X3, no focal deficits. Absent: pronater drift, facial droop, speech deficit - Skin Skin exam: Present: dry, intact Internal Med - H&P Results - Labs CBC & Chem 7: 03/11/18 19:09 03/11/18 19:09 Labs: Short CBC 03/11/18 Range/Units 19:09 WBC 6.3 (4.3-11.1) K/mcL Hgb 15.3 (12.9-16.9) g/dL Hct 44.8 (37.5-50.1) % Plt Count 177 (140-400) K/mcL Neutrophils # 3.8 (1.6-8.9) K/mcL BMP 03/11/18 19:09 Sodium 136 Potassium 3.4 L Chloride 97 L Carbon Dioxide 23 BUN 8 Creatinine 0.94 Glucose 105 Calcium 9.7 Cardiac Enzymes 03/11/18 Range/Units 19:09 Troponin I < 0.03 (< 0.04) ng/mL Liver Function 03/11/18 Range/Units 19:09 Total Bilirubin 1.1 H (0.3-1.0) mg/dL Direct Bilirubin 0.5 H (0.0-0.2) mg/dL AST 375 H (13-39) Units/L ALT 173 H (7-52) Units/L Alkaline Phosphatase 217 H (34-104) Units/L Albumin 4.7 (3.5-5.7) g/dL Urine 03/11/18 Range/Units 18:58 Urine Color Dark Yellow (Yellow) Urine Clarity Clear (Clear) Urine pH 6.5 (5.0-8.0) pH Units Ur Specific [place] 1.017 (1.010-1.025) Urine Protein 100 H (Neg-Trace) mg/dL Urine Glucose (UA) Normal (Normal) mg/dL - Assessment and plan (1) Alcoholism Current Visit: Yes Status: Acute Assessment and plan: Patient has history of alcoholism. He told me his last drink was on Thursday. - We will place patient on [facility] protocol - Banana bag 3 days (2) Suicidal ideation Current Visit: Yes Status: Acute Assessment and plan: We will consult psychiatry. Place patient on one-to-one sitter. Suicidal precaution (3) DVT prophylaxis Current Visit: No Status: Acute Assessment and plan: Heparin subcutaneously (4) Migraine Current Visit: No Status: Acute Assessment and plan: We will continue home medications and treat patient symptomatically. Qualifiers: Migraine type: unspecified Status migrainosus presence: without status migrainosus Intractability: intractable Qualified Code(s): G43.919 - Migraine, unspecified, intractable, without status migrainosus - Time Spent With Patient Total time spent is greater than 50% in coordination of care (as documented) at patient's floor/unit and/or counseling patient: 40 minutes Greater than 35 minutes
[2018-03-12] MEDS: *HR* LORazepam 2 MG/ML VIAL IVP PRN ×8 (01:31→20:58)
[2018-03-12] MEDS: SUMAtriptan succinate 25 MG TABLET PO PRN (01:31)
[2018-03-12] MEDS: *HR* Heparin 5,000 UNIT/ML VIAL SQ SCH ×2 (05:48→17:38)
[2018-03-12 06:36] LABS: Basophils % 0.7 %; Eosinophils # 0.1 K/mcL (0.0-0.6); Eosinophils % 2.6 %; Hematocrit 37.9 % (37.5-50.1); Immature Granulocytes % 0.4 % (0-4); Lymphocytes # 1.1 K/mcL (0.6-4.6); Lymphocytes % 23.2 %; Mean Corpuscular HGB Conc 32.2 g/dL (31.6-35.5); Mean Corpuscular Hemoglobin 28.8 pg (28.0-33.3); Mean Corpuscular Volume 89.6 fL (83.0-100.0); Mean Platelet Volume 10.6 fL (9.4-12.4); Monocytes # 0.4 K/mcL (0.0-1.3); Monocytes % 9.6 %; Neutrophils # 2.9 K/mcL (1.6-8.9); Platelet Count 132 K/mcL (140-400); Red Blood Count 4.23 M/mcL (4.19-5.50); Red Cell Distribution Width 18.3 % (11.5-14.5); Segmented Neutrophils % 63.5 %
[2018-03-12 06:41] LABS: Hemoglobin 12.2 g/dL (12.9-16.9)
[2018-03-12 06:59] LABS: BUN/Creatinine Ratio 12 (6-26); Blood Urea Nitrogen 9 mg/dL (8-23); Calcium 8.7 mg/dL (8.6-10.3); Carbon Dioxide 24 mEq/L (23-29); Chloride 101 mEq/L (98-107); Glucose 83 mg/dL (70-105); Magnesium 1.6 mg/dL (1.6-2.6); Osmolality,Calculated 284 (280-300); Potassium 3.1 mEq/L (3.5-5.1); Sodium 138 mEq/L (136-145); eGFR For African Americans > 60 (> 60); eGFR For Non-African Americans > 60 (> 60)
[2018-03-12] MEDS: Budesonide/Formoterol 160/4.5 MDI IH SCH ×2 (07:36→20:13)
[2018-03-12] MEDS: Lactobacillus 1 EACH CAP.SPRINK PO SCH ×2 (09:06→20:58)
[2018-03-12] MEDS: Nicotine 21 MG PATCH.TD24 TD SCH (09:06)
[2018-03-12] MEDS: amLODIPine 5 MG TABLET PO SCH (09:06)
[2018-03-12] MEDS: Gabapentin 300 MG CAPSULE PO SCH ×3 (09:06→20:57)
[2018-03-12] MEDS: Cholecalciferol (D-3) 1,000 UNIT TABLET PO SCH (09:06)
[2018-03-12] MEDS: Magnesium Oxide 400 MG TABLET PO SCH (09:06)
[2018-03-12] MEDS: Aspirin 81 MG TAB.CHEW PO SCH (09:06)
[2018-03-12] MEDS: Cyanocobalamin (B-12) 1,000 MCG TABLET PO SCH (09:06)
[2018-03-12] MEDS: (Acamprosate Calcium [Acamprosate Calcium] 666 MG) PO SCH ×3 (09:17→20:58)
[2018-03-12] MEDS ORDERED: Potassium Chloride 20 MEQ, Lidocaine 1% 2 ML in D5% in Water 250 ML IVPB ONE (12:40)
[2018-03-12] MEDS ORDERED: Acetaminophen 325 MG TABLET PO PRN (12:47)
--- NOTE | 2018-03-12 12:49 | Internal Med Progress Note ---
Date of Encounter: 03/12/18 Time of Encounter: 12:49 - Assessment and plan (1) Migraine Current Visit: No Status: Acute Assessment and plan: Continues to complain of migraine symptoms will continue home medications and treat patient symptomatically. Qualifiers: Migraine type: unspecified Status migrainosus presence: without status migrainosus Intractability: intractable Qualified Code(s): G43.919 - Migraine, unspecified, intractable, without status migrainosus (2) Suicidal ideation Current Visit: Yes Status: Acute Assessment and plan: Psychiatry consulted awaiting recommendations continue suicide observation one- to-one sitter Presently denies any suicidal ideations (3) Alcoholism Current Visit: Yes Status: Acute Assessment and plan: Patient has history of alcoholism. Patient told admitter that last drink was Thursday. Patient tells me that his last drink was yesterday at 6 AM - We will place patient on [facility] protocol - Banana bag 3 days (4) DVT prophylaxis Current Visit: No Status: Acute Assessment and plan: Heparin subcutaneously - Time Spent With Patient Total time spent is greater than 50% in coordination of care (as documented) at patient's floor/unit and/or counseling patient: - Subjective Interval history: Patient seen and examined at bedside. Patient verbalized anxiety however denies any suicidal ideations and denies any visual or auditory hallucinations. He does have a tremor. Continuous [facility] assessment-awaiting psychiatry recommendation - Constitutional Vitals: Temp Pulse Resp BP Pulse Ox 98.4 F 103 16 147/95 100 03/12/18 11:00 03/12/18 11:00 03/12/18 11:00 03/12/18 11:00 03/12/18 11:00 General appearance: Present: A&O X 3, no acute distress, answers questions appropriately - Head Head exam: Present: atraumatic, normocephalic - Eye Eye exam: Present: PERRL, conjuntiva pink, sclera anicteric Pupils: Present: PERRL - Neck Neck exam general surgery: Present: supple, trachea midline. Absent: lymphadenopathy - Respiratory Respiratory exam: Present: CTAB. Absent: accessory muscle use, rales, rhonchi, wheezes - Cardiovascular Cardiovascular exam: Present: RRR, +S1, +S2. Absent: diastolic murmur, gallop, rubs, systolic murmur - GI/Abdominal GI/Abdominal exam: Present: normal bowel sounds, soft, no peritoneal signs. Absent: distended, tenderness - Extremities Exam Extremities exam: Present: warm, radial pulses palpable and symmetrical. Absent : calf tenderness, cyanotic, pedal edema - Neurological Exam Neurological exam: Present: CN II-XII intact, oriented X3, no focal deficits. Absent: pronater drift, facial droop, speech deficit - Skin Skin exam: Present: dry, intact Internal Medicine: Result - Labs CBC & Chem 7: 03/12/18 05:34 03/12/18 05:34 Labs: Short CBC 03/12/18 Range/Units 05:34 WBC 4.6 (4.3-11.1) K/mcL Hgb 12.2 L D (12.9-16.9) g/dL Hct 37.9 (37.5-50.1) % Plt Count 132 L (140-400) K/mcL Neutrophils # 2.9 (1.6-8.9) K/mcL BMP 03/12/18 05:34 Sodium 138 Potassium 3.1 L Chloride 101 Carbon Dioxide 24 BUN 9 Creatinine 0.75 Glucose 83 Calcium 8.7 Consult Discharge Plan - Plan Referrals: NONE,PCP [Primary Care Provider] -
[2018-03-12] MEDS: Acetaminophen 325 MG TABLET PO PRN (14:57)
[2018-03-12] MEDS: Thiamine (B-1) 100 MG, Folic Acid 1 MG, MVI, adult with vitamin K 10 ML in 0.9 % Sodi... IVPB SCH (17:38)
[2018-03-12] MEDS: Ketorolac 30 MG/ML VIAL IVP PRN (17:40)
--- NOTE | 2018-03-12 19:08 | Consult Note ---
Date of Encounter: 03/12/18 Time of Encounter: 18:45 Assessment & Recommendation (1) Cyclothymic disorder Current visit: Yes Status: Acute (2) Tremor of both hands Current visit: Yes Status: Acute (3) Alcohol withdrawal Current visit: No Status: Resolved Qualifiers: Complication of substance-induced condition: with unspecified complication Qualified Code(s): F10.239 - Alcohol dependence with withdrawal, unspecified (4) Migraine Current visit: No Status: Acute Qualifiers: Migraine type: without aura Status migrainosus presence: without status migrainosus Intractability: intractable Qualified Code(s): G43.019 - Migraine without aura, intractable, without status migrainosus (5) Cyclothymic disorder Current visit: No Status: Acute (6) Alcohol withdrawal Current visit: No Status: Acute Qualifiers: Complication of substance-induced condition: with unspecified complication Qualified Code(s): F10.239 - Alcohol dependence with withdrawal, unspecified History of Present Illness Patient: known to practice within the last 3 years Requesting Physician: Nathan Walker Reason for consult: Suicidal ideation, alcohol depdence History of present illness: Mr. Chen is a 62 year old male Mr. chen is a 62-year-old white male. He lives alone in [facility]. The patient is known to me from previous hospitalization at [place] and from almost 20 years of treatment and experience in the [facility] where he is also received treatment. History of present illness to briefly summarize the patient has a mood disorder. It is best characterized is cyclothymia as he is not had the classic features of bipolar disorder. The patient also may have a personality disorder that contributes to this condition. Nonetheless the patient is developed alcohol dependence and has had multiple hospitalizations for alcohol dependence and alcohol intoxication. The patient has been hospitalized or seen in the emergency room multiple times. The most recent encounter that I had with him it was in December 2017. At that time I thought would be helpful to use Campral a medicine to help reduce alcohol cravings.. However Campral does not help by itself and the patient has not gone to or sought other treatment. Other mood stabilizers have not been very helpful so I would recommend that the patient continue on the following regimen of medicines. Quetiapine 600 mg daily at bedtime topiramate 200 mg twice a day and gabapentin 400 mg 3 times a day which is also helpful for tremors and migraine headaches. On interview the patient was slightly tremulous but cooperative. He had been having suicidal ideation but denied these as he was no longer in the intoxicated state. He tells me he lives in a apartment has limited transportation and some friends will bring him food and son Drees while others will bring him vodka. Efforts to stop drinking have been unsuccessful although the patient is willing to try that again CC: Nathan Walker Past Med Surg Social Fam HX - Past Medical History Medical history: COPD, CVA, GERD, hyperlipidemia, hypertension, kidney stones, migraine, myocardial infarction, other - Past Psychiatric History Psychiatric history: Reports: anxiety, prior suicide attempt, previous psychiatric hospitalization, other Family psychiatric history: Unknown Family History of Suicide: Unknown - Past Surgical History Surgical History: appendectomy, cholecystectomy, other - Social History Smoking Status: Current every day smoker Smokeless Tobacco Status: No Alcohol use: heavy, recent Drug use: none - Family History Mother Adopted: No Family Member Ethnicity: Non- Living Status: Still Living Hx Family Cardiac Disorders: Yes (HTN) Hx Family Respiratory Disorders: No Hx Family Cancer: Yes Hx Family GI Disorders: No Hx Family Endocrine Disorder: No Hx Family Neuromuscular Disorders: No Hx Family Neurologic Disorders: Yes (neuropathy) Hx Family HEENT Disorders: No Hx Family Autoimmune Disorders: No Father Family Member Ethnicity: Non- Living Status: Hx Family Cardiac Disorders: No Hx Family Respiratory Disorders: No Hx Family Cancer: No Hx Family GI Disorders: No Hx Family Endocrine Disorder: No Hx Family Neuromuscular Disorders: No Hx Family Neurologic Disorders: No Hx Family HEENT Disorders: No Hx Family Autoimmune Disorders: No Medications & Allergies Amlodipine Besylate 10 mg PO DAILY 12/06/17 [History] Budesonide/Formoterol 160/4.5 [Symbicort 160/4.5] 2 puff IH BID 12/06/17 [ History] Lipase/Protease/Amylase [Creon Dr 12,000 Units Capsule] 3 cap PO TIDWM 12/06/17 [History] Omeprazole [PriLOSEC] 20 mg PO DAILY 12/06/17 [History] Albuterol Sulfate [Albuterol Inhaler] 2 puff IH Q4H PRN 12/13/17 [History] Cholecalciferol (D-3) [Vitamin D] 1,000 unit PO DAILY 12/13/17 [History] Cyanocobalamin (Vitamin B-12) [Vitamin B-12] 500 mcg PO DAILY 12/13/17 [History] Folic Acid 1 mg PO DAILY 12/13/17 [History] L. Acidophilus/Pectin, [place] [Acidophilus Probiotic Capsule] 1 each PO BID [History] Magnesium Oxide [Mag-Ox] 400 mg PO DAILY 12/13/17 [History] Thiamine (B-1) [Vitamin B-1] 100 mg PO DAILY 12/13/17 [History] Escitalopram [Lexapro] 10 mg PO DAILY #30 tablet 12/24/17 [Rx] Quetiapine Fumarate [Seroquel] 100 mg PO HS #30 tablet 12/24/17 [Rx] Gabapentin [Neurontin] 600 mg PO TID 01/07/18 [History] SUMAtriptan succinate [Imitrex] 25 mg PO Q2H PRN 01/07/18 [History] Acamprosate Calcium 666 mg PO TID #180 tablet. 03/04/18 [Rx] Aspirin 81 mg PO DAILY #30 tab.chew 03/04/18 [Rx] Atorvastatin [Lipitor] 20 mg PO HS #60 tablet 03/04/18 [Rx] Lisinopril 5 mg PO DAILY #30 tablet 03/04/18 [Rx] 3 Allergy/AdvReac Type Severity Reaction Status Date / Time Buspirone [From BuSpar] AdvReac See Verified 03/11/18 20:07 Comments tramadol AdvReac See Verified 03/11/18 20:07 Comments Review of Systems Psychiatric: Reports: depression, anxiety, abnormal sleep pattern, mood swings Psychiatry Exam - Constitutional Vitals: Temp Pulse Resp BP Pulse Ox 98.1 F 94 20 148/98 97 03/12/18 15:00 03/12/18 15:00 03/12/18 15:00 03/12/18 15:00 03/12/18 15:00 General appearance: age & developmentally appropriate, unkempt, malodorous - Psychiatric Patient Orientation: Yes Person, Yes Time, Yes Place, Yes Circumstance Level of alertness: Alert Behavior: calm, cooperative Psychomotor activity: Normal Eye Contact: Maintains Eye Contact Mood Description: Euthymic/stable Affect description: congruent with mood, full range Speech Volume: Normal Speech pattern: normal rate, normal rhythm, normal tone, fluent, spontaneous Language & Vocabulary: consistent with education Thought Process: Linear, Goal Oriented Thought Content: No Suicidal ideation, No Homicidal ideation, No Overt delusions Perceptual Disturbances: No Auditory hallucinations, No Visual hallucinations Attention Span Ability: Capable of Focused Attention Memory Description: Grossly Intact Patient Reliability: Reliable Historian Fund of knowledge: Yes abstraction ability, Yes aware of current events Intelligence Estimate: Above [place] Judgment: Fair Insight: Partial Results - Labs Labs: Laboratory Last Values WBC 4.6 K/mcL (4.3-11.1) 03/12/18 05:34 RBC 4.23 M/mcL (4.19-5.50) 03/12/18 05:34 Hgb 12.2 g/dL (12.9-16.9) L D 03/12/18 05:34 Hct 37.9 % (37.5-50.1) 03/12/18 05:34 MCV 89.6 fL (83.0-100.0) 03/12/18 05:34 MCH 28.8 pg (28.0-33.3) 03/12/18 05:34 MCHC 32.2 g/dL (31.6-35.5) 03/12/18 05:34 RDW 18.3 % (11.5-14.5) H 03/12/18 05:34 Plt Count 132 K/mcL (140-400) L 03/12/18 05:34 MPV 10.6 fL (9.4-12.4) 03/12/18 05:34 Immature Gran % 0.4 % (0-4) 03/12/18 05:34 Seg Neutrophils % 63.5 % 03/12/18 05:34 Lymphocytes % 23.2 % 03/12/18 05:34 Monocytes % 9.6 % 03/12/18 05:34 Eosinophils % 2.6 % 03/12/18 05:34 Basophils % 0.7 % 03/12/18 05:34 Neutrophils # 2.9 K/mcL (1.6-8.9) 03/12/18 05:34 Lymphocytes # 1.1 K/mcL (0.6-4.6) 03/12/18 05:34 Monocytes # 0.4 K/mcL (0.0-1.3) 03/12/18 05:34 Eosinophils # 0.1 K/mcL (0.0-0.6) 03/12/18 05:34 Basophils # 0.0 K/mcL (0.0-0.2) 03/12/18 05:34 Sodium 138 mEq/L (136-145) 03/12/18 05:34 Potassium 3.1 mEq/L (3.5-5.1) L 03/12/18 05:34 Chloride 101 mEq/L (98-107) 03/12/18 05:34 Carbon Dioxide 24 mEq/L (23-29) 03/12/18 05:34 BUN 9 mg/dL (8-23) 03/12/18 05:34 Creatinine 0.75 mg/dL (0.70-1.30) 03/12/18 05:34 Est GFR ( Amer) > 60 (> 60) 03/12/18 05:34 Est GFR (Non-Af Amer) > 60 (> 60) 03/12/18 05:34 BUN/Creatinine Ratio 12 (6-26) 03/12/18 05:34 Glucose 83 mg/dL (70-105) 03/12/18 05:34 Calculated Osmolality 284 (280-300) 03/12/18 05:34 Calcium 8.7 mg/dL (8.6-10.3) 03/12/18 05:34 Magnesium 1.6 mg/dL (1.6-2.6) 03/12/18 05:34 Total Bilirubin 1.1 mg/dL (0.3-1.0) H 03/11/18 19:09 Direct Bilirubin 0.5 mg/dL (0.0-0.2) H 03/11/18 19:09 Indirect Bilirubin 0.6 mg/dL (0.0-1.2) 03/11/18 19:09 AST 375 Units/L (13-39) H 03/11/18 19:09 ALT 173 Units/L (7-52) H 03/11/18 19:09 Alkaline Phosphatase 217 Units/L (34-104) H 03/11/18 19:09 Troponin I < 0.03 ng/mL (< 0.04) 03/11/18 19:09 Serum Total Protein 9.4 g/dL (6.4-8.9) H 03/11/18 19:09 Albumin 4.7 g/dL (3.5-5.7) 03/11/18 19:09 Globulin 4.7 g/dL (2.4-3.5) H 03/11/18 19:09 Albumin/Globulin Ratio 1.0 (1.1-2.2) L 03/11/18 19:09 Lipase 68 Units/L (11-82) 03/11/18 19:09 Urine Color Dark Yellow (Yellow) 03/11/18 18:58 Urine Clarity Clear (Clear) 03/11/18 18:58 Urine pH 6.5 pH Units (5.0-8.0) 03/11/18 18:58 Ur Specific [place] 1.017 (1.010-1.025) 03/11/18 18:58 Urine Protein 100 mg/dL (Neg-Trace) H 03/11/18 18:58 Urine Glucose (UA) Normal mg/dL (Normal) 03/11/18 18:58 Urine Ketones Negative mg/dL (Negative) 03/11/18 18:58 Urine Blood Negative (Negative) 03/11/18 18:58 Urine Nitrite Negative (Negative) 03/11/18 18:58 Urine Bilirubin Small (Negative) H 03/11/18 18:58 Urine Urobilinogen 2.0 mg/dL (Normal) H 03/11/18 18:58 Ur Leukocyte Esterase Trace (Negative) H 03/11/18 18:58 Urine Microscopic RBC 0-3 per hpf (0-3) 03/11/18 18:58 Urine Microscopic WBC 0-3 per hpf (0-3) 03/11/18 18:58 Ur Squamous Epith Cells Few per lpf (None-Few) 03/11/18 18:58 Urine Bacteria None Seen per hpf (None-Few) 03/11/18 18:58 Hyaline Casts None Seen per lpf (None-Few) 03/11/18 18:58 Salicylates 5.3 mg/dL (15.0-30.0) L 03/11/18 19:09 Urine Opiates Screen Negative ng/mL (Yqpbqm=589) 03/11/18 18:58 Acetaminophen < 10 mcg/mL (10-20) L 03/11/18 19:09 Ur Barbiturates Screen Negative ng/mL (Czvkcd=934) 03/11/18 18:58 Ur Phencyclidine Scrn Negative ng/mL (Cutoff=25) 03/11/18 18:58 Ur Amphetamines Screen Negative ng/mL (Rjklla=8495) 03/11/18 18:58 U Benzodiazepines Scrn Positive ng/mL (Ghdqxx=513) H 03/11/18 18:58 Urine Cocaine Screen Negative ng/mL (Cutoff= 300) 03/11/18 18:58 U Marijuana (THC) Screen Negative ng/mL (Cutoff = 50) 03/11/18 18:58 Ethyl Alcohol 359 mg/dL (Less than 10) H 03/11/18 19:09 Consult Discharge Plan - Plan Referrals: NONE,PCP [Primary Care Provider] -
[2018-03-13] MEDS: Ketorolac 30 MG/ML VIAL IVP PRN (00:04)
[2018-03-13] MEDS: *HR* LORazepam 2 MG/ML VIAL IVP PRN ×7 (02:27→23:36)
[2018-03-13] MEDS: *HR* Heparin 5,000 UNIT/ML VIAL SQ SCH ×2 (05:36→17:56)
[2018-03-13 07:29] LABS: BUN/Creatinine Ratio 15 (6-26); Blood Urea Nitrogen 12 mg/dL (8-23); Calcium 9.3 mg/dL (8.6-10.3); Carbon Dioxide 24 mEq/L (23-29); Chloride 104 mEq/L (98-107); Glucose 118 mg/dL (70-105); Osmolality,Calculated 289 (280-300); Potassium 3.6 mEq/L (3.5-5.1); Sodium 139 mEq/L (136-145); eGFR For African Americans > 60 (> 60); eGFR For Non-African Americans > 60 (> 60)
[2018-03-13] MEDS: Budesonide/Formoterol 160/4.5 MDI IH SCH ×2 (07:35→19:57)
[2018-03-13] MEDS: Cholecalciferol (D-3) 1,000 UNIT TABLET PO SCH (08:06)
[2018-03-13] MEDS: Magnesium Oxide 400 MG TABLET PO SCH (08:06)
[2018-03-13] MEDS: Cyanocobalamin (B-12) 1,000 MCG TABLET PO SCH (08:06)
[2018-03-13] MEDS: Acetaminophen 325 MG TABLET PO PRN (08:06)
[2018-03-13] MEDS: Lactobacillus 1 EACH CAP.SPRINK PO SCH ×2 (08:06→20:02)
[2018-03-13] MEDS: Gabapentin 300 MG CAPSULE PO SCH ×2 (08:06→17:20)
[2018-03-13] MEDS: amLODIPine 5 MG TABLET PO SCH (08:06)
[2018-03-13] MEDS: Aspirin 81 MG TAB.CHEW PO SCH (08:07)
[2018-03-13] MEDS: Nicotine 21 MG PATCH.TD24 TD SCH (08:07)
[2018-03-13] MEDS: (Acamprosate Calcium [Acamprosate Calcium] 666 MG) PO SCH ×3 (08:07→20:03)
[2018-03-13 08:09] LABS: Basophils % 0.9 %; Eosinophils # 0.1 K/mcL (0.0-0.6); Eosinophils % 2.7 %; Hematocrit 36.7 % (37.5-50.1); Hemoglobin 12.3 g/dL (12.9-16.9); Immature Granulocytes % 0.9 % (0-4); Immature Platelets 5.9 % (1.1-6.1); Lymphocytes # 0.8 K/mcL (0.6-4.6); Lymphocytes % 22.4 %; Mean Corpuscular HGB Conc 33.5 g/dL (31.6-35.5); Mean Corpuscular Hemoglobin 30.4 pg (28.0-33.3); Mean Corpuscular Volume 90.8 fL (83.0-100.0); Mean Platelet Volume 11.5 fL (9.4-12.4); Monocytes # 0.3 K/mcL (0.0-1.3); Monocytes % 9.4 %; Neutrophils # 2.2 K/mcL (1.6-8.9); Nucleated Red Blood Cells 0.6 /100 WBC (0); Red Blood Count 4.04 M/mcL (4.19-5.50); Red Cell Distribution Width 17.8 % (11.5-14.5); Segmented Neutrophils % 63.7 %
[2018-03-13 09:01] LABS: Platelet Count 89 K/mcL (140-400)
[2018-03-13 16:43] LABS: Alanine Aminotransferase 97 Units/L (7-52); Albumin 4.1 g/dL (3.5-5.7); Albumin/Globulin Ratio 1.2 (1.1-2.2); Alkaline Phosphatase 166 Units/L (34-104); Aspartate Amino Transferase 173 Units/L (13-39); Bilirubin,Direct 0.7 mg/dL (0.0-0.2); Bilirubin,Indirect 0.6 mg/dL (0.0-1.2); Bilirubin,Total 1.3 mg/dL (0.3-1.0); Globulin 3.4 g/dL (2.4-3.5); Total Protein 7.5 g/dL (6.4-8.9)
[2018-03-13] MEDS: Thiamine (B-1) 100 MG, Folic Acid 1 MG, MVI, adult with vitamin K 10 ML in 0.9 % Sodi... IVPB SCH (17:20)
--- NOTE | 2018-03-13 18:02 | Discharge Summary ---
- NOTES TO OUTPATIENT PROVIDER Notes to Outpatient Provider: Follw up with [facility] or other substance abuse program encouraged to attend mental health treatment. [facility]. Seroquel 200 mg daily at bedtime monitor QTc- presently 406. Topamax 25 mg PO q HS x 1 week titrate over 4 weeks - psychiatry recommends 200mg. neurontin 400mg 3 times aday per psychiatry Orders not resulted at time of discharge: Pending orders 03/13/18 12:38 EKG [ECG 12 lead ECG] [ECG] Routine Date of Encounter: 03/14/18 Time of Encounter: 08:00 - Discharge Diagnosis (1) Migraine Priority: Primary Status: Acute Qualifiers: Migraine type: without aura Status migrainosus presence: without status migrainosus Intractability: intractable Qualified Code(s): G43.019 - Migraine without aura, intractable, without status migrainosus (2) Suicidal ideation Priority: Primary Status: Acute (3) Alcoholism Priority: Primary Status: Acute Hospital course: Mr. Chen is a 62 year old male Past medical history of COPD CVA and GERD hyperlipidemia hypertension migraine and kidney stones migraine [place] alcohol use. He presented to the emergency department with bad migraine. He has been thinking about killing himself but has not made an attempt. He drinks approximately a fifth of vodka daily. He has a past history of alcohol intoxication and suicidal ideations. He denies any auditory or visual hallucinations tremors. Lab work did reveal alcohol level CCCLIX he was positive for benzodiazepines on tox screen Patient was admitted and given IV fluids and a banana bag. He was given Imitrex for migraine Monitored for alcohol withdrawal. He is dialyzed any suicidal ideations at this time Psychiatry was consulted. Psychiatry recommended the patient follow up with outpatient mental health through the [facility] as well as attend AA. Recommend placing the patient on 600 mg daily at bedtime. Presently patient is on 100 mg we did check his QTC he is 405. We will increase to 200 mg this will be monitored by primary care and just it as needed. Psychiatry also recommends Topiramate 200 mg twice a day. 4 migraine. We will initiate at 25 mg 1 week again this will be adjusted per primary care. Recommending gabapentin 400 mg 3 times a day. Which we will continue. I did advise the patient to follow up with substance abuse program and to obtain a sponsor as well as attend outpatient mental health. Advised patient to follow-up with primary care physician in order to adjust medications. Patient verbalized understanding. Patient denies any suicidal ideations at this time . Does not appear to be in any withdrawal this time. He is hemodynamically stable and ready for discharge. Discharge discussed with: patient - Time Spent with Patient Total time spent providing and/or coordinating discharge services: - Discharge Medications Prescriptions: Gabapentin [Neurontin] 400 mg PO TID #21 capsule Quetiapine Fumarate [Seroquel] 200 mg PO HS #7 tablet Topiramate 25 mg PO DAILY #7 tablet Home Medications: Amlodipine Besylate 10 mg PO DAILY 12/06/17 [History] Budesonide/Formoterol 160/4.5 [Symbicort 160/4.5] 2 puff IH BID 12/06/17 [ History] Lipase/Protease/Amylase [Annaya Kern 12,000 Units Capsule] 3 cap PO TIDWM 12/06/17 [History] Omeprazole [PriLOSEC] 20 mg PO DAILY 12/06/17 [History] Albuterol Sulfate [Albuterol Inhaler] 2 puff IH Q4H PRN 12/13/17 [History] Cholecalciferol (D-3) [Vitamin D] 1,000 unit PO DAILY 12/13/17 [History] Cyanocobalamin (Vitamin B-12) [Vitamin B-12] 500 mcg PO DAILY 12/13/17 [History] Folic Acid 1 mg PO DAILY 12/13/17 [History] L. Acidophilus/Pectin, [place] [Acidophilus Probiotic Capsule] 1 each PO BID [History] Magnesium Oxide [Mag-Ox] 400 mg PO DAILY 12/13/17 [History] Thiamine (B-1) [Vitamin B-1] 100 mg PO DAILY 12/13/17 [History] Escitalopram [Lexapro] 10 mg PO DAILY #30 tablet 12/24/17 [Rx] SUMAtriptan succinate [Imitrex] 25 mg PO Q2H PRN 01/07/18 [History] Acamprosate Calcium 666 mg PO TID #180 tablet. 03/04/18 [Rx] Aspirin 81 mg PO DAILY #30 tab.chew 03/04/18 [Rx] Atorvastatin [Lipitor] 20 mg PO HS #60 tablet 03/04/18 [Rx] Lisinopril 5 mg PO DAILY #30 tablet 03/04/18 [Rx] Gabapentin [Neurontin] 400 mg PO TID #21 capsule 03/13/18 [Rx] Quetiapine Fumarate [Seroquel] 200 mg PO HS #7 tablet 03/13/18 [Rx] Topiramate 25 mg PO DAILY #7 tablet 03/13/18 [Rx] Allergies/Adverse Reactions: 3 Allergy/AdvReac Type Severity Reaction Status Date / Time Buspirone [From BuSpar] AdvReac See Verified 03/11/18 20:07 Comments tramadol AdvReac See Verified 03/11/18 20:07 Comments Date of admission: 03/11/18 22:19 Primary care physician: PCP NONE Discharging clinician: Beatriz Kumar Anticipated date of discharge: 03/13/18 - Constitutional Vitals: Temp Pulse Resp BP Pulse Ox 98.4 F 85 16 144/57 97 03/13/18 15:55 03/13/18 15:55 03/13/18 15:55 03/13/18 15:55 03/13/18 15:55 General appearance: Present: A&O X 3, no acute distress, answers questions appropriately - Head Head exam: Present: atraumatic, normocephalic - Eye Eye exam: Present: PERRL, conjuntiva pink, sclera anicteric Pupils: Present: PERRL - Neck Neck exam general surgery: Present: supple, trachea midline. Absent: lymphadenopathy - Respiratory Respiratory exam: Present: CTAB. Absent: accessory muscle use, rales, rhonchi, wheezes - Cardiovascular Cardiovascular exam: Present: RRR, +S1, +S2. Absent: diastolic murmur, gallop, rubs, systolic murmur - GI/Abdominal GI/Abdominal exam: Present: normal bowel sounds, soft, no peritoneal signs. Absent: distended, tenderness - Extremities Exam Extremities exam: Present: warm, radial pulses palpable and symmetrical. Absent : calf tenderness, cyanotic, pedal edema - Neurological Exam Neurological exam: Present: CN II-XII intact, oriented X3, no focal deficits. Absent: pronater drift, facial droop, speech deficit - Skin Skin exam: Present: dry, intact - Patient Status Disposition: Home, Self-Care Condition: Fair Functional capacity at discharge: independent ambulation Overall status at discharge: patient is back to baseline - Discharge Instructions Instructions: Gabapentin (By mouth), Topiramate (By mouth), Quetiapine (By mouth), Depression (DC), Alcohol Withdrawal (DC) Follow Up With: NONE,PCP [Primary Care Provider] - - Diet and Activity Diet: advance to your usual diet
--- NOTE | 2018-03-13 18:47 | Internal Med Progress Note ---
Date of Encounter: 03/13/18 Time of Encounter: 18:45 - Assessment and plan (1) Migraine Current Visit: No Status: Acute Assessment and plan: We will initiate on Topiramate Qualifiers: Migraine type: without aura Status migrainosus presence: without status migrainosus Intractability: intractable Qualified Code(s): G43.019 - Migraine without aura, intractable, without status migrainosus (2) Suicidal ideation Current Visit: Yes Status: Acute Assessment and plan: Psychiatry recommending outpatient follow-up. However patient presently absent from recent news of friend dying in a car accident. No suicidal ideations at this time. We will start on Seroquel (3) Alcoholism Current Visit: Yes Status: Acute Assessment and plan: Patient has history of alcoholism. Patient told admitter that last drink was Thursday. Patient tells me that his last drink was yesterday at 6 AM-patient is to follow-up with AA - We will place patient on CIWA protocol - Banana bag 3 days - Time Spent With Patient Total time spent is greater than 50% in coordination of care (as documented) at patient's floor/unit and/or counseling patient: - Subjective Interval history: Patient seen and examined at bedside. I attempted to discharge patient however he was very upset and stated that he just C the phone call that his friend he does not think he can go home he is too upset. -Denying any suicide ideations at this time however concerned that he will go home and binge drink and have suicidal thoughts. Will keep patient here overnight. - Constitutional Vitals: Temp Pulse Resp BP Pulse Ox 98.4 F 85 16 144/57 97 03/13/18 15:55 03/13/18 15:55 03/13/18 15:55 03/13/18 15:55 03/13/18 15:55 General appearance: Present: A&O X 3, no acute distress, answers questions appropriately - Head Head exam: Present: atraumatic, normocephalic - Eye Eye exam: Present: PERRL, conjuntiva pink, sclera anicteric Pupils: Present: PERRL - Neck Neck exam general surgery: Present: supple, trachea midline. Absent: lymphadenopathy - Respiratory Respiratory exam: Present: CTAB. Absent: accessory muscle use, rales, rhonchi, wheezes - Cardiovascular Cardiovascular exam: Present: RRR, +S1, +S2. Absent: diastolic murmur, gallop, rubs, systolic murmur - GI/Abdominal GI/Abdominal exam: Present: normal bowel sounds, soft, no peritoneal signs. Absent: distended, tenderness - Extremities Exam Extremities exam: Present: warm, radial pulses palpable and symmetrical. Absent : calf tenderness, cyanotic, pedal edema - Neurological Exam Neurological exam: Present: CN II-XII intact, oriented X3, no focal deficits. Absent: pronater drift, facial droop, speech deficit - Skin Skin exam: Present: dry, intact Internal Medicine: Result - Labs CBC & Chem 7: 03/13/18 06:31 03/13/18 06:31 Consult Discharge Plan - Plan Referrals: NONE,PCP [Primary Care Provider] - Prescriptions: Gabapentin [Neurontin] 400 mg PO TID #21 capsule Quetiapine Fumarate [Seroquel] 200 mg PO HS #7 tablet Topiramate 25 mg PO DAILY #7 tablet
[2018-03-13] MEDS: SUMAtriptan succinate 25 MG TABLET PO PRN (19:30)
[2018-03-13] MEDS: Gabapentin 400 MG CAPSULE PO SCH (20:02)
[2018-03-14] MEDS: *HR* LORazepam 2 MG/ML VIAL IVP PRN (04:23)
[2018-03-14] MEDS: *HR* Heparin 5,000 UNIT/ML VIAL SQ SCH (07:14)
[2018-03-14 07:20] VITALS: BP 145/85
[2018-03-14] MEDS: Budesonide/Formoterol 160/4.5 MDI IH SCH (08:00)
[2018-03-14] MEDS: Nicotine 21 MG PATCH.TD24 TD SCH (08:38)
[2018-03-14] MEDS: Cyanocobalamin (B-12) 1,000 MCG TABLET PO SCH (08:39)
[2018-03-14] MEDS: Magnesium Oxide 400 MG TABLET PO SCH (08:39)
[2018-03-14] MEDS: Aspirin 81 MG TAB.CHEW PO SCH (08:39)
[2018-03-14] MEDS: Lactobacillus 1 EACH CAP.SPRINK PO SCH (08:39)
[2018-03-14] MEDS: Gabapentin 400 MG CAPSULE PO SCH (08:40)
[2018-03-14] MEDS: (Acamprosate Calcium [Acamprosate Calcium] 666 MG) PO SCH (08:40)
[2018-03-14] MEDS: amLODIPine 5 MG TABLET PO SCH (08:40)
[2018-03-14] MEDS: Cholecalciferol (D-3) 1,000 UNIT TABLET PO SCH (08:40)
[2018-03-14] MEDS ORDERED: Topiramate 25 MG CAP.SPRINK PO SCH (09:00)
--- NOTE | 2018-03-17 06:39 | Electrocardiograph Report ---
[address] [place] [address] Test Date: 2018-03-13 Pat Name: Lauri Chen Department: 113 Room: 3B44 Gender: M [employer]: : 1955 Requested By: Beatriz Kumar Order Number: [id number] Reading MD: Red Covington Measurements Intervals [place] Rate: 85 P: 38 AR: 162 QRS: -12 QRSD: 86 T: 30 QT: 363 QTc: 406 Interpretive Statements SINUS RHYTHM INFERIOR MYOCARDIAL INFARCTION, PROBABLY OLD BASELINE ARTIFACT Electronically Signed On 03-17-2018 6:37:24 EDT by Red Covington
== END 2018-03-14 09:41 | disposition home or self-care (01) | DRG 897 ==
LOC: 3BNU 18:42 → EMEROO 18:42 → 3BNU 23:54
PROVIDERS: ADMIT Internal Medicine; ATTEND Internal Medicine

== ENCOUNTER 2018-03-23 23:43 | Inpatient (IN) ==
[2018-03-24] MEDS ORDERED: Thiamine (B-1) 200 MG/2 ML VIAL IM ONE (00:10)
[2018-03-24] MEDS ORDERED: Folic Acid 1 MG in D5% in Water 50 ML IVPB ONE (00:10)
[2018-03-24] MEDS ORDERED: 0.9 % Sodium Chloride 1,000 ML IVC ONE (00:10)
[2018-03-24] MEDS ORDERED: Dexmedetomidine HCl 400 MCG/100 ML MLS IVC SCH (00:15)
[2018-03-24 00:40] LABS: Bilirubin,Urine Negative (Negative); Blood,Urine Small (Negative); Clarity,Urine Clear (Clear); Color,Urine Yellow (Yellow); Glucose,Urine (UA) Normal (Normal); Ketones,Urine Trace mg/dL (Negative); Leukocyte Esterase,Urine Trace (Negative); Nitrite,Urine Negative (Negative); Protein,Urine 100 mg/dL (Neg-Trace); Specific Gravity,Urine 1.011 (1.010-1.025); Urobilinogen,Urine Normal (Normal)
[2018-03-24 00:43] LABS: Bacteria,Urine None Seen per hpf (None-Few); Hyaline Casts,Urine None Seen per lpf (None-Few); Squamous Epithelial Cell,Urine Few per lpf (None-Few); WBC,Urine 15-30 per hpf (0-3)
[2018-03-24 00:52] LABS: Amphetamine Screen,Urine Negative ng/mL (Cutoff=1000); Barbiturate Screen,Urine Negative ng/mL (Cutoff=200); Benzodiazepines Screen,Urine Positive ng/mL (Cutoff=200); Cannabinoid Screen,Urine Negative ng/mL (Cutoff = 50); Cocaine Screen,Urine Negative ng/mL (Cutoff= 300); Opiate Screen,Urine Negative ng/mL (Cutoff=300); Phencyclidine Screen,Urine Negative ng/mL (Cutoff=25)
[2018-03-24] MEDS ORDERED: *HR* LORazepam 2 MG/ML VIAL ONE (01:01)
[2018-03-24] MEDS ORDERED: *HR* LORazepam 2 MG/ML VIAL IM ONE (01:20)
[2018-03-24 02:49] LABS: Basophils % 0.5 %; Eosinophils # 0.1 K/mcL (0.0-0.6); Eosinophils % 0.7 %; Hematocrit 41.8 % (37.5-50.1); Hemoglobin 14.4 g/dL (12.9-16.9); Immature Granulocytes % 0.2 % (0-4); Lymphocytes # 1.6 K/mcL (0.6-4.6); Mean Corpuscular HGB Conc 34.4 g/dL (31.6-35.5); Mean Corpuscular Hemoglobin 30.2 pg (28.0-33.3); Mean Corpuscular Volume 87.6 fL (83.0-100.0); Mean Platelet Volume 10.3 fL (9.4-12.4); Monocytes # 0.3 K/mcL (0.0-1.3); Monocytes % 3.8 %; Neutrophils # 6.1 K/mcL (1.6-8.9); Platelet Count 106 K/mcL (140-400); Red Blood Count 4.77 M/mcL (4.19-5.50); Red Cell Distribution Width 17.1 % (11.5-14.5); Segmented Neutrophils % 74.8 %
[2018-03-24 02:55] LABS: INR 1.1; Prothrombin Time 12.1 Seconds (9.4-12.1)
[2018-03-24 03:08] LABS: Alanine Aminotransferase 129 Units/L (7-52); Albumin 4.9 g/dL (3.5-5.7); Albumin/Globulin Ratio 1.2 (1.1-2.2); Alkaline Phosphatase 240 Units/L (34-104); Aspartate Amino Transferase 339 Units/L (13-39); BUN/Creatinine Ratio 9 (6-26); Bilirubin,Total 1.5 mg/dL (0.3-1.0); Blood Urea Nitrogen 8 mg/dL (8-23); Calcium 9.2 mg/dL (8.6-10.3); Carbon Dioxide 19 mEq/L (23-29); Chloride 102 mEq/L (98-107); Ethanol 332 mg/dL (Less than 10); Glucose 126 mg/dL (70-105); Lipase 113 Units/L (11-82); Magnesium 1.7 mg/dL (1.6-2.6); Osmolality,Calculated 286 (280-300); Phosphorous 3.3 mg/dL (2.7-4.5); Potassium 3.4 mEq/L (3.5-5.1); Sodium 138 mEq/L (136-145); Total Protein 8.9 g/dL (6.4-8.9); eGFR For African Americans > 60 (> 60); eGFR For Non-African Americans > 60 (> 60)
[2018-03-24] MEDS ORDERED: Naloxone 0.4 MG/ML INJ IVP PRN (03:19)
[2018-03-24] MEDS ORDERED: *HR* Promethazine 25 MG/ML VIAL IVP PRN (03:24)
[2018-03-24] MEDS ORDERED: Ondansetron 4 MG/2 ML VIAL IVP PRN (03:26)
--- NOTE | 2018-03-24 03:46 | Emergency Department Note ---
Disposition Clinical Impression: Alcohol withdrawal Qualifiers: Complication of substance-induced condition: with delirium Qualified Code(s): F10.231 - Alcohol dependence with withdrawal delirium Disposition: Admitted As Inpatient Condition: Critical General Adult HPI - General Chief complaint: ED Alcohol Abuse Stated complaint: ETOH Time Seen by Provider: 03/23/18 23:55 Source: patient, EMS Limitations: no limitations Nursing Notes Reviewed: Yes Vital Signs Reviewed: Yes - History of Present Illness HPI Narrative: 62 y.o. male with history of alcohol abuse. He ran out of ETOH yesterday and had been having withdrawal symptoms since. He often requires admission as he does not have money to buy alcohol and has such heavy ETOH use he quickly goes into life threatening withdrawal. He is extremely tachy, hypertensive and having visual hallucinations on arrival to the ER. Exams shows tachycardic heart rate, agitation and hypertension. General: No acute distress HEENT: Pupils equal and reactive to light, extraoccular muscle movement is normal, TMS are clear bilaterally. Heart: Tachycardic Rate, No murmor rub or gallop Lungs: lungs clear, no wheezing, rales or ronchi. ABD: SNT, no focal areas or tenderness, no guarding or rebound tenderness. Extremities: No cyanosis, clubbing or edema Neuro: Alert and strength 5/5, sensation check and in tact Medical Decision Making Findings consistent with severe alcohol withdrawl. Pt was given multivitamin, started on precedex due to severity of withdrawl symptoms. Patient improved with therapy and had clinical improvement in CIWA scores. Patient will be admitted to the ICU for further management. Pain Scale: 0 - Related Data Home Medications Medication Instructions Recorded Confirmed Amlodipine Besylate 10 mg PO DAILY 12/06/17 03/11/18 Budesonide/Formoterol 160/4.5 2 puff IH BID 12/06/17 03/11/18 [Symbicort 160/4.5] Lipase/Protease/Amylase [Creon Dr 3 cap PO TIDWM 12/06/17 03/11/18 12,000 Units Capsule] Omeprazole [PriLOSEC] 20 mg PO DAILY 12/06/17 03/11/18 Albuterol Sulfate [Albuterol 2 puff IH Q4H PRN 12/13/17 03/11/18 Inhaler] Cholecalciferol (D-3) [Vitamin D] 1,000 unit PO DAILY 12/13/17 03/11/18 Cyanocobalamin (Vitamin B-12) 500 mcg PO DAILY 12/13/17 03/11/18 [Vitamin B-12] Folic Acid 1 mg PO DAILY 12/13/17 03/11/18 L. Acidophilus/Pectin, [place] 1 each PO BID 12/13/17 03/11/18 [Acidophilus Probiotic Capsule] Magnesium Oxide [Mag-Ox] 400 mg PO DAILY 12/13/17 03/11/18 Thiamine (B-1) [Vitamin B-1] 100 mg PO DAILY 12/13/17 03/11/18 SUMAtriptan succinate [Imitrex] 25 mg PO Q2H PRN 01/07/18 03/11/18 Previous Rx's Medication Instructions Recorded Escitalopram [Lexapro] 10 mg PO DAILY #30 tablet 12/24/17 Acamprosate Calcium 666 mg PO TID #180 tablet. 03/04/18 Aspirin 81 mg PO DAILY #30 tab.chew 03/04/18 Atorvastatin [Lipitor] 20 mg PO HS #60 tablet 03/04/18 Lisinopril 5 mg PO DAILY #30 tablet 03/04/18 Gabapentin [Neurontin] 400 mg PO TID #21 capsule 03/13/18 Quetiapine Fumarate [Seroquel] 200 mg PO HS #7 tablet 03/13/18 Topiramate 25 mg PO DAILY #7 tablet 03/13/18 Allergies Allergy/AdvReac Type Severity Reaction Status Date / Time Buspirone [From BuSpar] AdvReac See Verified 03/11/18 20:07 Comments tramadol AdvReac See Verified 03/11/18 20:07 Comments All systems ED: reviewed and negative except as stated. Past Medical History - Past Medical History Medical history: Reports: COPD, CVA, GERD, hyperlipidemia, hypertension, kidney stones, migraine, myocardial infarction, other Surgical history: Reports: appendectomy, cholecystectomy, other Psychiatric history: Reports: anxiety, prior suicide attempt, previous psychiatric hospitalization, other - Social History Smoking Status: Current every day smoker Smokeless Tobacco Status: No Alcohol use: Reports: heavy, recent Drug use: Reports: none Physical Exam - General Limitations: no limitations General appearance: alert, appears intoxicated Course Vital Signs Temperature 98.5 F 03/23/18 23:58 Pulse Rate 145 03/23/18 23:58 Respiratory Rate 22 03/23/18 23:58 Blood Pressure 153/84 03/23/18 23:58 O2 Sat by Pulse Oximetry 98 03/23/18 23:58 Temperature 98.5 F 03/23/18 23:58 Pulse Rate 103 03/24/18 01:30 Respiratory Rate 20 03/24/18 02:35 Blood Pressure 132/87 03/24/18 02:35 O2 Sat by Pulse Oximetry 97 03/24/18 01:30 Oxygen Delivery Oxygen Delivery Room Air Medical Decision Making - Lab Data Result diagrams: 03/24/18 02:35 03/24/18 02:35 Lab Results 03/24/18 03/24/18 Range/Units 00:36 00:36 Urine Color Yellow (Yellow) Urine Clarity Clear (Clear) Urine pH 7.0 (5.0-8.0) pH Units Ur Specific [place] 1.011 (1.010-1.025) Urine Protein 100 H (Neg-Trace) mg/dL Urine Glucose (UA) Normal (Normal) mg/dL Urine Ketones Trace H (Negative) mg/dL Urine Blood Small H (Negative) Urine Nitrite Negative (Negative) Urine Bilirubin Negative (Negative) Urine Urobilinogen Normal (Normal) mg/dL Ur Leukocyte Esterase Trace H (Negative) Urine Microscopic RBC 5-15 H (0-3) per hpf Urine Microscopic WBC 15-30 H (0-3) per hpf Ur Squamous Epith Cells Few (None-Few) per lpf Urine Bacteria None Seen (None-Few) per hpf Hyaline Casts None Seen (None-Few) per lpf Urine Opiates Screen Negative (Hhauhx=001) ng/mL Ur Barbiturates Screen Negative (Zvpkcl=377) ng/mL Ur Phencyclidine Scrn Negative (Cutoff=25) ng/mL Ur Amphetamines Screen Negative (Nunefi=3776) ng/mL U Benzodiazepines Scrn Positive H (Tdbynn=473) ng/mL Urine Cocaine Screen Negative (Cutoff= 300) ng/mL U Marijuana (THC) Screen Negative (Cutoff = 50) ng/mL Critical Care Time Critical Care Time: Yes Total Critical Care Time: 35 Attestation: Critical care performed:35 Time is exclusive of separately billable procedures. Time includes: direct patient care, patient reassessment, coordination of patient care, interpretation of data (laboratory data, radiology data, and respiratory data), review of patient's medical records, medical consultation and documentation of patient care. Procedures included in critical care time:0 Procedures excluded from critical care time: 0
[2018-03-24] MEDS: *HR* LORazepam 2 MG/ML VIAL IVP PRN ×4 (04:09→23:17)
--- NOTE | 2018-03-24 05:00 | Internal Med History&Physical ---
Date of Encounter: 03/24/18 Time of Encounter: 02:00 Internal Medicine - H&P: HPI Chief complaint: Nausea and vomiting Admitted From: Home Plans for Post Hospital Care: Home History of present illness: Mr. Chen is a 62 year old male presented to ER for nausea and vomiting. Past medical history is significant for migraine, alcoholism, history of pancreatitis. Patient has a history of alcoholism and was admitted recently for several times. Patient did not drink alcohol in last 2 days and present to ER with nausea, vomiting, headache. The vomiting are stomach content, no blood in it. Patient denies diaphoresis or shaking. Patient was considered alcohol withdrawal and was given Ativan IV in ER, which shows minimal effect. Patient was started dexmedetomidine drip and admitted to ICU for alcohol withdrawal. Past Med Surg Social Fam HX - Past Medical History Medical history: COPD, CVA, GERD, hyperlipidemia, hypertension, kidney stones, migraine, myocardial infarction, other Additional medical history: urinary retention Psychiatric history: anxiety, prior suicide attempt, previous psychiatric hospitalization, other - Past Surgical History Surgical History: appendectomy, cholecystectomy, other Additional surgical history: knee scope - Social History Smoking Status: Current every day smoker Smokeless Tobacco Status: No Alcohol use: heavy, recent Drug use: none - Family History Mother History Unknown: Yes Adopted: No Family Member Ethnicity: Non- Living Status: Still Living Hx Family Cardiac Disorders: Yes (HTN) Hx Family Respiratory Disorders: No Hx Family Cancer: Yes Hx Family GI Disorders: No Hx Family Endocrine Disorder: No Hx Family Neuromuscular Disorders: No Hx Family Neurologic Disorders: Yes (neuropathy) Hx Family HEENT Disorders: No Hx Family Autoimmune Disorders: No Father History Unknown: Yes Family Member Ethnicity: Non- Living Status: Hx Family Cardiac Disorders: No Hx Family Respiratory Disorders: No Hx Family Cancer: No Hx Family GI Disorders: No Hx Family Endocrine Disorder: No Hx Family Neuromuscular Disorders: No Hx Family Neurologic Disorders: No Hx Family HEENT Disorders: No Hx Family Autoimmune Disorders: No Internal Medicine - H&P: Meds Amlodipine Besylate 10 mg PO DAILY 12/06/17 [History] Budesonide/Formoterol 160/4.5 [Symbicort 160/4.5] 2 puff IH BID 12/06/17 [ History] Lipase/Protease/Amylase [Creon Dr 12,000 Units Capsule] 3 cap PO TIDWM 12/06/17 [History] Omeprazole [PriLOSEC] 20 mg PO DAILY 12/06/17 [History] Albuterol Sulfate [Albuterol Inhaler] 2 puff IH Q4H PRN 12/13/17 [History] Cholecalciferol (D-3) [Vitamin D] 1,000 unit PO DAILY 12/13/17 [History] Cyanocobalamin (Vitamin B-12) [Vitamin B-12] 500 mcg PO DAILY 12/13/17 [History] Folic Acid 1 mg PO DAILY 12/13/17 [History] L. Acidophilus/Pectin, [place] [Acidophilus Probiotic Capsule] 1 each PO BID [History] Magnesium Oxide [Mag-Ox] 400 mg PO DAILY 12/13/17 [History] Thiamine (B-1) [Vitamin B-1] 100 mg PO DAILY 12/13/17 [History] Escitalopram [Lexapro] 10 mg PO DAILY #30 tablet 12/24/17 [Rx] SUMAtriptan succinate [Imitrex] 25 mg PO Q2H PRN 01/07/18 [History] Acamprosate Calcium 666 mg PO TID #180 tablet. 03/04/18 [Rx] Aspirin 81 mg PO DAILY #30 tab.chew 03/04/18 [Rx] Atorvastatin [Lipitor] 20 mg PO HS #60 tablet 03/04/18 [Rx] Lisinopril 5 mg PO DAILY #30 tablet 03/04/18 [Rx] Gabapentin [Neurontin] 400 mg PO TID #21 capsule 03/13/18 [Rx] Quetiapine Fumarate [Seroquel] 200 mg PO HS #7 tablet 03/13/18 [Rx] Topiramate 25 mg PO DAILY #7 tablet 03/13/18 [Rx] 3 Allergy/AdvReac Type Severity Reaction Status Date / Time Buspirone [From BuSpar] AdvReac See Verified 03/11/18 20:07 Comments tramadol AdvReac See Verified 03/11/18 20:07 Comments All Systems PM: A 10-system review of systems was performed and is negative for pertinent findings except as documented above in the HPI. - Constitutional Vitals: Temp Pulse Resp BP Pulse Ox 98 F 101 22 149/104 95 03/24/18 02:49 03/24/18 04:10 03/24/18 04:00 03/24/18 04:00 03/24/18 04:00 General appearance: Present: A&O X 3, no acute distress, answers questions appropriately - Head Head exam: Present: atraumatic, normocephalic - Eye Eye exam: Present: PERRL, conjuntiva pink, sclera anicteric Pupils: Present: PERRL - Neck Neck exam general surgery: Present: supple, trachea midline. Absent: lymphadenopathy - Respiratory Respiratory exam: Present: CTAB. Absent: accessory muscle use, rales, rhonchi, wheezes - Cardiovascular Cardiovascular exam: Present: RRR, +S1, +S2. Absent: diastolic murmur, gallop, rubs, systolic murmur - GI/Abdominal GI/Abdominal exam: Present: normal bowel sounds, soft, no peritoneal signs. Absent: distended, tenderness - Extremities Exam Extremities exam: Present: warm, radial pulses palpable and symmetrical. Absent : calf tenderness, cyanotic, pedal edema - Neurological Exam Neurological exam: Present: CN II-XII intact, oriented X3, no focal deficits. Absent: pronater drift, facial droop, speech deficit - Skin Skin exam: Present: dry, intact Internal Med - H&P Results - Labs CBC & Chem 7: 03/24/18 02:35 03/24/18 02:35 Labs: Short CBC 03/24/18 Range/Units 02:35 WBC 8.2 (4.3-11.1) K/mcL Hgb 14.4 (12.9-16.9) g/dL Hct 41.8 (37.5-50.1) % Plt Count 106 L (140-400) K/mcL Neutrophils # 6.1 (1.6-8.9) K/mcL BMP 03/24/18 02:35 Sodium 138 Potassium 3.4 L Chloride 102 Carbon Dioxide 19 L BUN 8 Creatinine 0.90 Glucose 126 H Calcium 9.2 Liver Function 03/24/18 Range/Units 02:35 Total Bilirubin 1.5 H (0.3-1.0) mg/dL AST 339 H (13-39) Units/L ALT 129 H (7-52) Units/L Alkaline Phosphatase 240 H (34-104) Units/L Albumin 4.9 (3.5-5.7) g/dL - Assessment and plan (1) Alcohol withdrawal Current Visit: Yes Status: Acute Assessment and plan: Patient has symptoms of alcohol withdraw. Will cont dexmedetomidine drip. - Start Librium 50 mg by mouth 3 times a day for withdrawal prevention, taper down dexmedetomidine drip gradually. - Place patient on CIWA protocol - Closely monitor pt and give symptomatic treatment. Qualifiers: Complication of substance-induced condition: with delirium Qualified Code(s ): F10.231 - Alcohol dependence with withdrawal delirium (2) DVT prophylaxis Current Visit: No Status: Acute Assessment and plan: Heparin subcutaneously (3) Migraine Current Visit: No Status: Acute Assessment and plan: Continue home medications Qualifiers: Migraine type: without aura Status migrainosus presence: without status migrainosus Intractability: intractable Qualified Code(s): G43.019 - Migraine without aura, intractable, without status migrainosus (4) COPD (chronic obstructive pulmonary disease) Current Visit: No Status: Chronic Assessment and plan: Stable. Continue home medications Qualifiers: COPD type: unspecified COPD Qualified Code(s): J44.9 - Chronic obstructive pulmonary disease, unspecified - Time Spent With Patient Total time spent is greater than 50% in coordination of care (as documented) at patient's floor/unit and/or counseling patient: 45 minutes Greater than 35 minutes
[2018-03-24 05:12] LABS: Basophils % 0.4 %; Hemoglobin 13.2 g/dL (12.9-16.9); Immature Granulocytes % 0.3 % (0-4)
[2018-03-24 05:14] LABS: Eosinophils # 0.1 K/mcL (0.0-0.6); Eosinophils % 0.7 %; Hematocrit 38.2 % (37.5-50.1); Immature Platelets 5.6 % (1.1-6.1); Lymphocytes # 1.5 K/mcL (0.6-4.6); Lymphocytes % 22.2 %; Mean Corpuscular HGB Conc 34.6 g/dL (31.6-35.5); Mean Corpuscular Hemoglobin 30.3 pg (28.0-33.3); Mean Corpuscular Volume 87.8 fL (83.0-100.0); Mean Platelet Volume 10.2 fL (9.4-12.4); Monocytes # 0.3 K/mcL (0.0-1.3); Monocytes % 4.3 %; Neutrophils # 4.9 K/mcL (1.6-8.9); Red Blood Count 4.35 M/mcL (4.19-5.50); Segmented Neutrophils % 72.1 %
[2018-03-24 05:15] LABS: Platelet Count 94 K/mcL (140-400)
[2018-03-24] MEDS ORDERED: Dexmedetomidine HCl 400 MCG/100 ML MLS IVC ONE (05:26)
[2018-03-24] MEDS: 0.9 % Sodium Chloride 1,000 ML IVC SCH ×2 (05:29→14:42)
[2018-03-24] MEDS: Dexmedetomidine HCl 400 MCG/100 ML MLS IVC SCH ×4 (05:29→20:40)
[2018-03-24 05:30] LABS: Alanine Aminotransferase 115 Units/L (7-52); Albumin 4.4 g/dL (3.5-5.7); Albumin/Globulin Ratio 1.3 (1.1-2.2); Alkaline Phosphatase 203 Units/L (34-104); Aspartate Amino Transferase 304 Units/L (13-39); BUN/Creatinine Ratio 10 (6-26); Bilirubin,Total 1.5 mg/dL (0.3-1.0); Blood Urea Nitrogen 9 mg/dL (8-23); Calcium 8.8 mg/dL (8.6-10.3); Carbon Dioxide 21 mEq/L (23-29); Chloride 102 mEq/L (98-107); Globulin 3.5 g/dL (2.4-3.5); Glucose 107 mg/dL (70-105); Magnesium 1.7 mg/dL (1.6-2.6); Osmolality,Calculated 289 (280-300); Phosphorous 3.7 mg/dL (2.7-4.5); Potassium 3.3 mEq/L (3.5-5.1); Sodium 140 mEq/L (136-145); Total Protein 7.9 g/dL (6.4-8.9); eGFR For African Americans > 60 (> 60); eGFR For Non-African Americans > 60 (> 60)
[2018-03-24] MEDS: *HR* Heparin 5,000 UNIT/ML VIAL SQ SCH ×2 (06:33→17:30)
[2018-03-24] MEDS: Nicotine 21 MG PATCH.TD24 TD SCH (08:44)
[2018-03-24] MEDS: Aspirin 81 MG TAB.CHEW PO SCH (08:44)
[2018-03-24] MEDS: Budesonide/Formoterol 160/4.5 MDI IH SCH ×2 (11:22→20:36)
--- NOTE | 2018-03-24 15:45 | Internal Med Progress Note ---
Date of Encounter: 03/24/18 Time of Encounter: 15:39 - Assessment and plan (1) Alcohol withdrawal Current Visit: Yes Status: Acute Assessment and plan: Patient has symptoms of alcohol withdraw. Will cont dexmedetomidine drip. - Start Librium 50 mg by mouth 3 times a day for withdrawal prevention, taper down dexmedetomidine drip gradually. - JUAN LUISFL protocol CIWA this AM 28, currently improving Continue Precedex drip and monitor closely Qualifiers: Complication of substance-induced condition: with delirium Qualified Code(s ): F10.231 - Alcohol dependence with withdrawal delirium (2) COPD (chronic obstructive pulmonary disease) Current Visit: No Status: Chronic Assessment and plan: Stable. Continue home medications Qualifiers: COPD type: unspecified COPD Qualified Code(s): J44.9 - Chronic obstructive pulmonary disease, unspecified (3) Migraine Current Visit: No Status: Acute Assessment and plan: Continue home medications He is having refractory migraine headache now along with nausea Will give one time dose of compazine and monitor for improvement. Qualifiers: Migraine type: without aura Status migrainosus presence: without status migrainosus Intractability: intractable Qualified Code(s): G43.019 - Migraine without aura, intractable, without status migrainosus (4) DVT prophylaxis Current Visit: No Status: Acute Assessment and plan: Heparin subcutaneously - Time Spent With Patient Total time spent is greater than 50% in coordination of care (as documented) at patient's floor/unit and/or counseling patient: - Subjective Interval history: Patient currently complains of headache, nausea, and tremors. He is aware of situation. - Constitutional Vitals: Temp Pulse Resp BP Pulse Ox 97.7 F 63 16 154/98 100 03/24/18 12:30 03/24/18 14:00 03/24/18 14:00 03/24/18 14:00 03/24/18 14:00 General appearance: Present: A&O X 3, no acute distress, answers questions appropriately Exam: CVS: RRR Lungs: CTAB Abd: NT, ND Ext: resting arm tremors bilaterally, no edema Internal Medicine: Result - Labs CBC & Chem 7: 03/24/18 04:55 03/24/18 04:55 Labs: Short CBC 03/24/18 Range/Units 04:55 WBC 6.8 (4.3-11.1) K/mcL Hgb 13.2 (12.9-16.9) g/dL Hct 38.2 (37.5-50.1) % Plt Count 94 L (140-400) K/mcL Neutrophils # 4.9 (1.6-8.9) K/mcL BMP 03/24/18 04:55 Sodium 140 Potassium 3.3 L Chloride 102 Carbon Dioxide 21 L BUN 9 Creatinine 0.91 Glucose 107 H Calcium 8.8 Liver Function 03/24/18 Range/Units 04:55 Total Bilirubin 1.5 H (0.3-1.0) mg/dL AST 304 H (13-39) Units/L ALT 115 H (7-52) Units/L Alkaline Phosphatase 203 H (34-104) Units/L Albumin 4.4 (3.5-5.7) g/dL - ABG Interpretation ABG results: PT/INR, D-dimer PT 12.1 Seconds (9.4-12.1) 03/24/18 02:35 Consult Discharge Plan - Plan Referrals: NONE,PCP [Primary Care Provider] -
[2018-03-24] MEDS ORDERED: Prochlorperazine 10 MG/2 ML VIAL IVP ONE (15:47)
[2018-03-24] MEDS ORDERED: Potassium Chloride Elixir 20 MEQ/15 ML UDC PO ONE (15:48)
[2018-03-24] MEDS: Thiamine (B-1) 100 MG, Folic Acid 1 MG, MVI, adult with vitamin K 10 ML in 0.9 % Sodi... IVPB SCH (17:30)
[2018-03-25] MEDS: 0.9 % Sodium Chloride 1,000 ML IVC SCH ×3 (00:22→21:59)
[2018-03-25] MEDS: *HR* LORazepam 2 MG/ML VIAL IVP PRN ×7 (00:32→23:28)
[2018-03-25] MEDS: Dexmedetomidine HCl 400 MCG/100 ML MLS IVC SCH ×5 (01:42→23:37)
[2018-03-25 04:21] LABS: Basophils % 0.4 %; Eosinophils % 0.8 %; Hematocrit 34.4 % (37.5-50.1); Immature Granulocytes % 0.2 % (0-4); Lymphocytes # 0.6 K/mcL (0.6-4.6); Lymphocytes % 13.2 %; Mean Corpuscular HGB Conc 33.1 g/dL (31.6-35.5); Mean Corpuscular Hemoglobin 28.9 pg (28.0-33.3); Mean Corpuscular Volume 87.1 fL (83.0-100.0); Mean Platelet Volume 10.9 fL (9.4-12.4); Monocytes # 0.2 K/mcL (0.0-1.3); Monocytes % 3.8 %; Neutrophils # 3.9 K/mcL (1.6-8.9); Red Blood Count 3.95 M/mcL (4.19-5.50); Red Cell Distribution Width 16.2 % (11.5-14.5); Segmented Neutrophils % 81.6 %
[2018-03-25 04:23] LABS: Hemoglobin 11.4 g/dL (12.9-16.9); Platelet Count 45 K/mcL (140-400)
[2018-03-25 04:37] LABS: BUN/Creatinine Ratio 12 (6-26); Blood Urea Nitrogen 10 mg/dL (8-23); Calcium 8.4 mg/dL (8.6-10.3); Carbon Dioxide 22 mEq/L (23-29); Chloride 104 mEq/L (98-107); Glucose 122 mg/dL (70-105); Osmolality,Calculated 286 (280-300); Potassium 3.4 mEq/L (3.5-5.1); Sodium 138 mEq/L (136-145); eGFR For African Americans > 60 (> 60); eGFR For Non-African Americans > 60 (> 60)
[2018-03-25] MEDS: *HR* Heparin 5,000 UNIT/ML VIAL SQ SCH (06:16)
[2018-03-25] MEDS: Budesonide/Formoterol 160/4.5 MDI IH SCH ×2 (07:28→22:41)
[2018-03-25] MEDS: Aspirin 81 MG TAB.CHEW PO SCH (07:53)
[2018-03-25] MEDS: Nicotine 21 MG PATCH.TD24 TD SCH (07:53)
--- NOTE | 2018-03-25 10:42 | Internal Med Progress Note ---
Date of Encounter: 03/25/18 Time of Encounter: 10:39 - Assessment and plan (1) Alcohol withdrawal Current Visit: Yes Status: Acute Assessment and plan: Patient has symptoms of alcohol withdraw. Will cont dexmedetomidine drip. - Start Librium 50 mg by mouth 3 times a day for withdrawal prevention, taper down dexmedetomidine drip gradually. - CIWA scores still high CIWA scores still elevated Continue Precedex drip, Librium taper, and CIWA protocol Qualifiers: Complication of substance-induced condition: with delirium Qualified Code(s ): F10.231 - Alcohol dependence with withdrawal delirium (2) COPD (chronic obstructive pulmonary disease) Current Visit: No Status: Chronic Assessment and plan: Stable. Continue home medications Qualifiers: COPD type: unspecified COPD Qualified Code(s): J44.9 - Chronic obstructive pulmonary disease, unspecified (3) Migraine Current Visit: No Status: Acute Assessment and plan: Continue home medications He is having refractory migraine headache now along with nausea Unable to tell if compazine was effective. Will hold off to avoid adverse side effects. Qualifiers: Migraine type: without aura Status migrainosus presence: without status migrainosus Intractability: intractable Qualified Code(s): G43.019 - Migraine without aura, intractable, without status migrainosus (4) DVT prophylaxis Current Visit: No Status: Acute Assessment and plan: Heparin subcutaneously - Time Spent With Patient Total time spent is greater than 50% in coordination of care (as documented) at patient's floor/unit and/or counseling patient: - Subjective Interval history: Patient appears more confused today. Sitter reports occasionally he is inconsistent with his thoughts and has had one or two episodes of confusion and one episode of hallucination. He admits to migraine headache that is improving. - Constitutional Vitals: Temp Pulse Resp BP Pulse Ox 97.9 F 70 20 170/97 99 03/25/18 08:00 03/25/18 04:00 03/25/18 04:00 03/25/18 04:00 03/25/18 04:00 General appearance: Present: A&O X 2, no acute distress, answers questions appropriately - Head Head exam: Present: atraumatic, normocephalic - Eye Eye exam: Present: PERRL, conjuntiva pink, sclera anicteric Pupils: Present: PERRL - Neck Neck exam general surgery: Present: supple, trachea midline. Absent: lymphadenopathy - Respiratory Respiratory exam: Present: CTAB. Absent: accessory muscle use, rales, rhonchi, wheezes - Cardiovascular Cardiovascular exam: Present: RRR, +S1, +S2. Absent: diastolic murmur, gallop, rubs, systolic murmur - GI/Abdominal GI/Abdominal exam: Present: normal bowel sounds, soft, no peritoneal signs. Absent: distended, tenderness - Extremities Exam Extremities exam: Present: warm, radial pulses palpable and symmetrical. Absent : calf tenderness, cyanotic, pedal edema - Neurological Exam Neurological exam: Present: CN II-XII intact, oriented X3. Absent: pronater drift, facial droop, speech deficit Additional comments: Arm tremors at rest, not as severe as yesterday. - Skin Skin exam: Present: dry, intact Internal Medicine: Result - Labs CBC & Chem 7: 03/25/18 04:00 03/25/18 04:00 Labs: Short CBC 03/25/18 Range/Units 04:00 WBC 4.8 (4.3-11.1) K/mcL Hgb 11.4 L D (12.9-16.9) g/dL Hct 34.4 L (37.5-50.1) % Plt Count 45 L D (140-400) K/mcL Neutrophils # 3.9 (1.6-8.9) K/mcL BMP 03/25/18 04:00 Sodium 138 Potassium 3.4 L Chloride 104 Carbon Dioxide 22 L BUN 10 Creatinine 0.81 Glucose 122 H Calcium 8.4 L - ABG Interpretation ABG results: PT/INR, D-dimer PT 12.1 Seconds (9.4-12.1) 03/24/18 02:35 Consult Discharge Plan - Plan Referrals: Ramiro Dexter DO [Resident] - 04/14/18 9:00 am (new get established. Please take your Picture ID, INS card and a list of meds including over the counter with you to your appointment. Show up 15 mins early. If you need to cancel please call [phone] 24hours prior to your appontment.)
[2018-03-25] MEDS: Thiamine (B-1) 100 MG, Folic Acid 1 MG, MVI, adult with vitamin K 10 ML in 0.9 % Sodi... IVPB SCH ×2 (17:05→23:28)
[2018-03-26] MEDS: *HR* LORazepam 2 MG/ML VIAL IVP PRN ×5 (01:34→23:50)
[2018-03-26] MEDS: Dexmedetomidine HCl 400 MCG/100 ML MLS IVC SCH ×4 (04:15→23:45)
[2018-03-26 06:12] LABS: Basophils % 0.4 %; Eosinophils # 0.1 K/mcL (0.0-0.6); Eosinophils % 2.2 %; Hematocrit 37.7 % (37.5-50.1); Immature Granulocytes % 0.2 % (0-4); Immature Platelets 10.5 % (1.1-6.1); Lymphocytes # 0.9 K/mcL (0.6-4.6); Lymphocytes % 19.6 %; Mean Corpuscular HGB Conc 31.8 g/dL (31.6-35.5); Mean Corpuscular Volume 91.1 fL (83.0-100.0); Mean Platelet Volume 12.2 fL (9.4-12.4); Monocytes # 0.2 K/mcL (0.0-1.3); Monocytes % 5.1 %; Neutrophils # 3.3 K/mcL (1.6-8.9); Nucleated Red Blood Cells 0.7 /100 WBC (0); Red Blood Count 4.14 M/mcL (4.19-5.50); Red Cell Distribution Width 16.3 % (11.5-14.5); Segmented Neutrophils % 72.5 %
[2018-03-26 06:18] LABS: Platelet Count 41 K/mcL (140-400)
[2018-03-26 06:22] LABS: BUN/Creatinine Ratio 10 (6-26); Blood Urea Nitrogen 8 mg/dL (8-23); Calcium 8.8 mg/dL (8.6-10.3); Carbon Dioxide 22 mEq/L (23-29); Chloride 108 mEq/L (98-107); Glucose 124 mg/dL (70-105); Osmolality,Calculated 286 (280-300); Potassium 3.1 mEq/L (3.5-5.1); Sodium 138 mEq/L (136-145); eGFR For African Americans > 60 (> 60); eGFR For Non-African Americans > 60 (> 60)
[2018-03-26] MEDS: Budesonide/Formoterol 160/4.5 MDI IH SCH ×2 (07:37→19:51)
[2018-03-26] MEDS: Nicotine 21 MG PATCH.TD24 TD SCH (08:14)
[2018-03-26] MEDS: Aspirin 81 MG TAB.CHEW PO SCH (08:14)
[2018-03-26] MEDS: 0.9 % Sodium Chloride 1,000 ML IVC SCH ×2 (08:14→17:05)
[2018-03-26] MEDS: SUMAtriptan succinate 25 MG TABLET PO PRN ×2 (11:01→14:11)
--- NOTE | 2018-03-26 13:43 | Internal Med Progress Note ---
Date of Encounter: 03/26/18 Time of Encounter: 13:40 - Assessment and plan (1) Alcohol withdrawal Current Visit: Yes Status: Acute Assessment and plan: Patient has symptoms of alcohol withdraw. Will cont dexmedetomidine drip. - Start Librium 50 mg by mouth 3 times a day for withdrawal prevention, taper down dexmedetomidine drip gradually. CIWA scores still elevated, score as high as 22 overnight with hypertension Will need to continue Precedex drip, Librium taper, and CIWA protocol Qualifiers: Complication of substance-induced condition: with delirium Qualified Code(s ): F10.231 - Alcohol dependence with withdrawal delirium (2) COPD (chronic obstructive pulmonary disease) Current Visit: No Status: Chronic Assessment and plan: Stable. Continue home medications Qualifiers: COPD type: unspecified COPD Qualified Code(s): J44.9 - Chronic obstructive pulmonary disease, unspecified (3) Migraine Current Visit: No Status: Acute Assessment and plan: Continue home medications He is having refractory migraine headache now along with nausea He is now able to confidently tell me compazine was not effective We can give a one time dose of migraine cocktail Toradol - though would like to avoid Toradol after this one time dose. Qualifiers: Migraine type: without aura Status migrainosus presence: without status migrainosus Intractability: intractable Qualified Code(s): G43.019 - Migraine without aura, intractable, without status migrainosus (4) DVT prophylaxis Current Visit: No Status: Acute Assessment and plan: Heparin subcutaneously (5) Diarrhea Current Visit: No Status: Acute Assessment and plan: Check stool studies. With abdominal pain and frequent hospitalizations, patient is high risk for C diff infection. Qualifiers: Diarrhea type: unspecified type Qualified Code(s): R19.7 - Diarrhea, unspecified - Time Spent With Patient Total time spent is greater than 50% in coordination of care (as documented) at patient's floor/unit and/or counseling patient: - Subjective Interval history: 03/25: Patient appears more confused today. Sitter reports occasionally he is inconsistent with his thoughts and has had one or two episodes of confusion and one episode of hallucination. 03/26: He is more oriented today. States having abdominal pain with foul smelling diarrhea. Also having migraine returned. - Constitutional Vitals: Temp Pulse Resp BP Pulse Ox 97.9 F 71 18 170/111 99 03/26/18 11:06 03/26/18 11:06 03/26/18 11:06 03/26/18 11:06 03/26/18 11:06 General appearance: Present: A&O X 2, no acute distress, answers questions appropriately Exam: - Head Head exam: Present: atraumatic, normocephalic - Eye Eye exam: Present: PERRL, conjuntiva pink, sclera anicteric Pupils: Present: PERRL - Neck Neck exam general surgery: Present: supple, trachea midline. Absent: lymphadenopathy - Respiratory Respiratory exam: Present: CTAB. Absent: accessory muscle use, rales, rhonchi, wheezes - Cardiovascular Cardiovascular exam: Present: RRR, +S1, +S2. Absent: diastolic murmur, gallop, rubs, systolic murmur - GI/Abdominal GI/Abdominal exam: Present: normal bowel sounds, soft, no peritoneal signs. Absent: distended, tenderness - Extremities Exam Extremities exam: Present: warm, radial pulses palpable and symmetrical. Absent : calf tenderness, cyanotic, pedal edema - Neurological Exam Neurological exam: Present: CN II-XII intact, oriented X3. Absent: pronater drift, facial droop, speech deficit Additional comments: Tremors at rest but not as severe as on my exam yesterday Internal Medicine: Result - Labs CBC & Chem 7: 03/26/18 05:40 03/26/18 05:40 Labs: Short CBC 03/26/18 Range/Units 05:40 WBC 4.6 (4.3-11.1) K/mcL Hgb 12.0 L (12.9-16.9) g/dL Hct 37.7 (37.5-50.1) % Plt Count 41 L (140-400) K/mcL Neutrophils # 3.3 (1.6-8.9) K/mcL BMP 03/26/18 05:40 Sodium 138 Potassium 3.1 L Chloride 108 H Carbon Dioxide 22 L BUN 8 Creatinine 0.83 Glucose 124 H Calcium 8.8 - ABG Interpretation ABG results: PT/INR, D-dimer PT 12.1 Seconds (9.4-12.1) 03/24/18 02:35 Consult Discharge Plan - Plan Referrals: Ramiro Dexter DO [Resident] - 04/14/18 9:00 am (new get established. Please take your Picture ID, INS card and a list of meds including over the counter with you to your appointment. Show up 15 mins early. If you need to cancel please call [phone] 24hours prior to your appontment.)
[2018-03-26] MEDS ORDERED: *HR* Promethazine 25 MG/ML VIAL IVP ONE (13:49)
[2018-03-26] MEDS ORDERED: Ketorolac 30 MG/ML VIAL IVP ONE (13:49)
[2018-03-26] MEDS: Gabapentin 400 MG CAPSULE PO SCH ×2 (17:03→20:04)
[2018-03-26] MEDS: Folic Acid 1 MG TABLET PO SCH (17:03)
[2018-03-26] MEDS: Thiamine (B-1) 100 MG TABLET PO SCH (17:03)
[2018-03-26] MEDS: Thiamine (B-1) 100 MG, Folic Acid 1 MG, MVI, adult with vitamin K 10 ML in 0.9 % Sodi... IVPB SCH (17:06)
[2018-03-26] MEDS: Cyanocobalamin (B-12) 1,000 MCG TABLET PO SCH (17:09)
[2018-03-26] MEDS: Topiramate 25 MG TABLET PO SCH (20:04)
[2018-03-27] MEDS: *HR* LORazepam 2 MG/ML VIAL IVP PRN ×7 (03:12→20:45)
[2018-03-27 04:21] LABS: Eosinophils # 0.1 K/mcL (0.0-0.6); Eosinophils % 2.6 %; Hemoglobin 11.7 g/dL (12.9-16.9); Immature Granulocytes % 0.3 % (0-4); Immature Platelets 8.2 % (1.1-6.1); Lymphocytes # 0.7 K/mcL (0.6-4.6); Mean Corpuscular HGB Conc 31.6 g/dL (31.6-35.5); Mean Corpuscular Hemoglobin 29.1 pg (28.0-33.3); Mean Platelet Volume 11.8 fL (9.4-12.4); Monocytes # 0.3 K/mcL (0.0-1.3); Monocytes % 6.5 %; Neutrophils # 2.8 K/mcL (1.6-8.9); Red Blood Count 4.02 M/mcL (4.19-5.50); Red Cell Distribution Width 16.5 % (11.5-14.5); Segmented Neutrophils % 73.6 %
[2018-03-27 04:23] LABS: Platelet Count 47 K/mcL (140-400)
[2018-03-27] MEDS: 0.9 % Sodium Chloride 1,000 ML IVC SCH (04:33)
[2018-03-27 04:37] LABS: BUN/Creatinine Ratio 15 (6-26); Blood Urea Nitrogen 11 mg/dL (8-23); Calcium 9.4 mg/dL (8.6-10.3); Carbon Dioxide 17 mEq/L (23-29); Chloride 111 mEq/L (98-107); Glucose 132 mg/dL (70-105); Osmolality,Calculated 285 (280-300); Potassium 3.5 mEq/L (3.5-5.1); Sodium 137 mEq/L (136-145); eGFR For African Americans > 60 (> 60); eGFR For Non-African Americans > 60 (> 60)
[2018-03-27] MEDS: Dexmedetomidine HCl 400 MCG/100 ML MLS IVC SCH (05:31)
[2018-03-27] MEDS: Gabapentin 400 MG CAPSULE PO SCH ×3 (07:32→20:34)
[2018-03-27] MEDS: Cyanocobalamin (B-12) 1,000 MCG TABLET PO SCH (07:32)
[2018-03-27] MEDS: Folic Acid 1 MG TABLET PO SCH (07:32)
[2018-03-27] MEDS: Thiamine (B-1) 100 MG TABLET PO SCH (07:32)
[2018-03-27] MEDS: Aspirin 81 MG TAB.CHEW PO SCH (07:33)
[2018-03-27] MEDS: Nicotine 21 MG PATCH.TD24 TD SCH (07:33)
[2018-03-27] MEDS: Budesonide/Formoterol 160/4.5 MDI IH SCH ×2 (09:13→21:12)
[2018-03-27] MEDS: SUMAtriptan succinate 25 MG TABLET PO PRN (12:57)
--- NOTE | 2018-03-27 14:45 | Internal Med Progress Note ---
Date of Encounter: 03/27/18 Time of Encounter: 14:43 - Assessment and plan (1) Alcohol withdrawal Current Visit: Yes Status: Acute Assessment and plan: Patient has symptoms of alcohol withdraw. Significant alcohol history with many withdrawal hospitalizations. Continue Precedex drip, Librium (started at 50 mg TID but needed increased to 75 mg TID on 03/26), and CIWA protocol CIWA ranging 10-23, continue current therapy. Qualifiers: Complication of substance-induced condition: with delirium Qualified Code(s ): F10.231 - Alcohol dependence with withdrawal delirium (2) Diarrhea Current Visit: No Status: Acute Assessment and plan: Check stool studies pending. With abdominal pain and frequent hospitalizations, patient is high risk for C diff infection. Qualifiers: Diarrhea type: unspecified type Qualified Code(s): R19.7 - Diarrhea, unspecified (3) COPD (chronic obstructive pulmonary disease) Current Visit: No Status: Chronic Assessment and plan: Stable. Continue home medications Qualifiers: COPD type: unspecified COPD Qualified Code(s): J44.9 - Chronic obstructive pulmonary disease, unspecified (4) Migraine Current Visit: No Status: Acute Assessment and plan: Continue home medications He is having refractory migraine headache now along with nausea Patient stated compazine was not helpful Had migraine cocktail on 03/27 Qualifiers: Migraine type: without aura Status migrainosus presence: without status migrainosus Intractability: intractable Qualified Code(s): G43.019 - Migraine without aura, intractable, without status migrainosus (5) DVT prophylaxis Current Visit: No Status: Acute Assessment and plan: Heparin subcutaneously - Time Spent With Patient Total time spent is greater than 50% in coordination of care (as documented) at patient's floor/unit and/or counseling patient: - Subjective Interval history: 03/25: Patient appears more confused today. Sitter reports occasionally he is inconsistent with his thoughts and has had one or two episodes of confusion and one episode of hallucination. 03/26: He is more oriented today. States having abdominal pain with foul smelling diarrhea. Also having migraine returned. 03/27: headache better, states still having loose stool with abdominal discomfort. Nursing reports pt is cooperative today. - Constitutional Vitals: Temp Pulse Resp BP Pulse Ox 97.5 F L 67 20 143/91 97 03/27/18 07:01 03/27/18 11:03/27/18 11:09 03/27/18 11:03/27/18 11:09 General appearance: Present: A&O X 2, no acute distress, answers questions appropriately Exam: - Head Head exam: Present: atraumatic, normocephalic - Eye Eye exam: Present: PERRL, conjuntiva pink, sclera anicteric Pupils: Present: PERRL - Neck Neck exam general surgery: Present: supple, trachea midline. Absent: lymphadenopathy - Respiratory Respiratory exam: Present: CTAB. Absent: accessory muscle use, rales, rhonchi, wheezes - Cardiovascular Cardiovascular exam: Present: RRR, +S1, +S2. Absent: diastolic murmur, gallop, rubs, systolic murmur - GI/Abdominal GI/Abdominal exam: Present: normal bowel sounds, soft, no peritoneal signs. Absent: distended, tenderness - Extremities Exam Extremities exam: Present: warm, radial pulses palpable and symmetrical. Absent : calf tenderness, cyanotic, pedal edema - Neurological Exam Neurological exam: Present: CN II-XII intact, oriented X3. Absent: pronater drift, facial droop, speech deficit Additional comments: Tremors with activity Internal Medicine: Result - Labs CBC & Chem 7: 03/27/18 04:00 03/27/18 04:00 Labs: Short CBC 03/27/18 Range/Units 04:00 WBC 3.8 L (4.3-11.1) K/mcL Hgb 11.7 L (12.9-16.9) g/dL Hct 37.0 L (37.5-50.1) % Plt Count 47 L (140-400) K/mcL Neutrophils # 2.8 (1.6-8.9) K/mcL BMP 03/27/18 04:00 Sodium 137 Potassium 3.5 Chloride 111 H Carbon Dioxide 17 L BUN 11 Creatinine 0.74 Glucose 132 H Calcium 9.4 - ABG Interpretation ABG results: PT/INR, D-dimer PT 12.1 Seconds (9.4-12.1) 03/24/18 02:35 Consult Discharge Plan - Plan Referrals: Ramiro Dexter DO [Resident] - 04/14/18 9:00 am (new get established. Please take your Picture ID, INS card and a list of meds including over the counter with you to your appointment. Show up 15 mins early. If you need to cancel please call [phone] 24hours prior to your appontment.)
[2018-03-27] MEDS: amLODIPine 5 MG TABLET PO SCH (15:22)
[2018-03-27] MEDS ORDERED: 0.9 % Sodium Chloride 500 ML ONE (20:03)
[2018-03-27] MEDS: Lactobacillus 1 EACH CAP.SPRINK PO SCH (20:34)
[2018-03-27] MEDS: Topiramate 25 MG TABLET PO SCH (20:34)
[2018-03-28] MEDS: *HR* LORazepam 2 MG/ML VIAL IVP PRN ×3 (00:18→20:51)
[2018-03-28] MEDS: Dexmedetomidine HCl 400 MCG/100 ML MLS IVC SCH ×3 (00:30→23:33)
[2018-03-28 00:54] LABS: Basophils % 0.4 %; Eosinophils # 0.1 K/mcL (0.0-0.6); Eosinophils % 2.6 %; Hematocrit 37.5 % (37.5-50.1); Hemoglobin 11.8 g/dL (12.9-16.9); Immature Granulocytes % 0.2 % (0-4); Immature Platelets 6.5 % (1.1-6.1); Lymphocytes # 0.9 K/mcL (0.6-4.6); Lymphocytes % 17.5 %; Mean Corpuscular HGB Conc 31.5 g/dL (31.6-35.5); Mean Corpuscular Hemoglobin 29.1 pg (28.0-33.3); Mean Corpuscular Volume 92.4 fL (83.0-100.0); Mean Platelet Volume 11.4 fL (9.4-12.4); Monocytes # 0.6 K/mcL (0.0-1.3); Monocytes % 11.4 %; Neutrophils # 3.5 K/mcL (1.6-8.9); Red Blood Count 4.06 M/mcL (4.19-5.50); Red Cell Distribution Width 17.1 % (11.5-14.5); Segmented Neutrophils % 67.9 %
[2018-03-28 01:02] LABS: Platelet Count 69 K/mcL (140-400)
[2018-03-28 01:12] LABS: BUN/Creatinine Ratio 15 (6-26); Blood Urea Nitrogen 12 mg/dL (8-23); Calcium 9.6 mg/dL (8.6-10.3); Carbon Dioxide 17 mEq/L (23-29); Chloride 109 mEq/L (98-107); Glucose 108 mg/dL (70-105); Osmolality,Calculated 282 (280-300); Potassium 3.5 mEq/L (3.5-5.1); Sodium 136 mEq/L (136-145); eGFR For African Americans > 60 (> 60); eGFR For Non-African Americans > 60 (> 60)
[2018-03-28] MEDS: Gabapentin 400 MG CAPSULE PO SCH ×3 (08:37→20:28)
[2018-03-28] MEDS: Thiamine (B-1) 100 MG TABLET PO SCH (08:37)
[2018-03-28] MEDS: Cyanocobalamin (B-12) 1,000 MCG TABLET PO SCH (08:37)
[2018-03-28] MEDS: Cholecalciferol (D-3) 1,000 UNIT TABLET PO SCH (08:37)
[2018-03-28] MEDS: Folic Acid 1 MG TABLET PO SCH (08:37)
[2018-03-28] MEDS: Lactobacillus 1 EACH CAP.SPRINK PO SCH ×2 (08:37→20:28)
[2018-03-28] MEDS: Nicotine 21 MG PATCH.TD24 TD SCH (08:37)
[2018-03-28] MEDS: Magnesium Oxide 400 MG TABLET PO SCH (08:37)
[2018-03-28] MEDS: Aspirin 81 MG TAB.CHEW PO SCH (08:37)
[2018-03-28] MEDS: amLODIPine 5 MG TABLET PO SCH (08:38)
[2018-03-28] MEDS: Budesonide/Formoterol 160/4.5 MDI IH SCH ×2 (10:08→20:08)
[2018-03-28] MEDS ORDERED: Ketorolac 30 MG/ML VIAL IVP ONE (14:29)
--- NOTE | 2018-03-28 14:33 | Internal Med Progress Note ---
Date of Encounter: 03/28/18 Time of Encounter: 14:31 - Assessment and plan (1) Alcohol withdrawal Current Visit: Yes Status: Acute Assessment and plan: Patient has symptoms of alcohol withdraw. Significant alcohol history with many withdrawal hospitalizations. CIWA ranging 6-25 Continue Librium (started at 50 mg TID but needed increased to 75 mg TID on 03/26) , still needing 75 mg TID. Weaning Precedex drip as tolerated. Qualifiers: Complication of substance-induced condition: with delirium Qualified Code(s ): F10.231 - Alcohol dependence with withdrawal delirium (2) Diarrhea Current Visit: No Status: Resolved Assessment and plan: Stool studies pending Severity decreased Qualifiers: Diarrhea type: unspecified type Qualified Code(s): R19.7 - Diarrhea, unspecified (3) COPD (chronic obstructive pulmonary disease) Current Visit: No Status: Chronic Assessment and plan: Stable. Continue home medications Qualifiers: COPD type: unspecified COPD Qualified Code(s): J44.9 - Chronic obstructive pulmonary disease, unspecified (4) Migraine Current Visit: No Status: Acute Assessment and plan: Continue home medications Give additional Toradol today. Will avoid phenergan, benadryl since patient already on sedating medications. Qualifiers: Migraine type: without aura Status migrainosus presence: without status migrainosus Intractability: intractable Qualified Code(s): G43.019 - Migraine without aura, intractable, without status migrainosus (5) DVT prophylaxis Current Visit: No Status: Acute Assessment and plan: Heparin subcutaneously - Time Spent With Patient Total time spent is greater than 50% in coordination of care (as documented) at patient's floor/unit and/or counseling patient: - Subjective Interval history: Patient was severely agitated overnight and Precedex drip could not be weaned. - Constitutional Vitals: Temp Pulse Resp BP Pulse Ox 97.2 F L 63 22 116/79 97 03/28/18 11:20 03/28/18 11:20 03/28/18 11:20 03/28/18 11:20 03/28/18 11:20 General appearance: Present: A&O X 3, no acute distress, answers questions appropriately Exam: - Head Head exam: Present: atraumatic, normocephalic - Eye Eye exam: Present: PERRL, conjuntiva pink, sclera anicteric Pupils: Present: PERRL - Neck Neck exam general surgery: Present: supple, trachea midline. Absent: lymphadenopathy - Respiratory Respiratory exam: Present: CTAB. Absent: accessory muscle use, rales, rhonchi, wheezes - Cardiovascular Cardiovascular exam: Present: RRR, +S1, +S2. Absent: diastolic murmur, gallop, rubs, systolic murmur - GI/Abdominal GI/Abdominal exam: Present: normal bowel sounds, soft, no peritoneal signs. Absent: distended, tenderness - Extremities Exam Extremities exam: Present: warm, radial pulses palpable and symmetrical. Absent : calf tenderness, cyanotic, pedal edema - Neurological Exam Neurological exam: Present: CN II-XII intact, oriented X3. Absent: pronater drift, facial droop, speech deficit Additional comments: Tremors with activity Internal Medicine: Result - Labs CBC & Chem 7: 03/28/18 00:39 03/28/18 00:39 Labs: Short CBC 03/28/18 Range/Units 00:39 WBC 5.1 (4.3-11.1) K/mcL Hgb 11.8 L (12.9-16.9) g/dL Hct 37.5 (37.5-50.1) % Plt Count 69 L (140-400) K/mcL Neutrophils # 3.5 (1.6-8.9) K/mcL BMP 03/28/18 00:39 Sodium 136 Potassium 3.5 Chloride 109 H Carbon Dioxide 17 L BUN 12 Creatinine 0.81 Glucose 108 H Calcium 9.6 - ABG Interpretation ABG results: PT/INR, D-dimer PT 12.1 Seconds (9.4-12.1) 03/24/18 02:35 Consult Discharge Plan - Plan Referrals: Ramiro Dexter DO [Resident] - 04/14/18 9:00 am (new get established. Please take your Picture ID, INS card and a list of meds including over the counter with you to your appointment. Show up 15 mins early. If you need to cancel please call [phone] 24hours prior to your appontment.)
[2018-03-28] MEDS: Topiramate 25 MG TABLET PO SCH (20:28)
[2018-03-28] MEDS ORDERED: 0.9 % Sodium Chloride 500 ML ONE (21:39)
[2018-03-29] MEDS: *HR* LORazepam 2 MG/ML VIAL IVP PRN ×3 (02:43→20:12)
[2018-03-29 03:30] LABS: BUN/Creatinine Ratio 18 (6-26); Blood Urea Nitrogen 15 mg/dL (8-23); Calcium 9.4 mg/dL (8.6-10.3); Carbon Dioxide 17 mEq/L (23-29); Chloride 110 mEq/L (98-107); Glucose 108 mg/dL (70-105); Osmolality,Calculated 287 (280-300); Potassium 3.6 mEq/L (3.5-5.1); Sodium 138 mEq/L (136-145); eGFR For African Americans > 60 (> 60); eGFR For Non-African Americans > 60 (> 60)
[2018-03-29] MEDS: Budesonide/Formoterol 160/4.5 MDI IH SCH ×2 (07:55→20:10)
[2018-03-29] MEDS: Cyanocobalamin (B-12) 1,000 MCG TABLET PO SCH (08:03)
[2018-03-29] MEDS: Folic Acid 1 MG TABLET PO SCH (08:03)
[2018-03-29] MEDS: Thiamine (B-1) 100 MG TABLET PO SCH (08:04)
[2018-03-29] MEDS: Gabapentin 400 MG CAPSULE PO SCH ×3 (08:04→20:13)
[2018-03-29] MEDS: Cholecalciferol (D-3) 1,000 UNIT TABLET PO SCH (08:04)
[2018-03-29] MEDS: SUMAtriptan succinate 25 MG TABLET PO PRN ×2 (08:04→20:13)
[2018-03-29] MEDS: amLODIPine 5 MG TABLET PO SCH (08:05)
[2018-03-29] MEDS: Nicotine 21 MG PATCH.TD24 TD SCH (08:05)
[2018-03-29] MEDS: Magnesium Oxide 400 MG TABLET PO SCH (08:05)
[2018-03-29] MEDS: Lactobacillus 1 EACH CAP.SPRINK PO SCH ×2 (08:05→20:13)
[2018-03-29] MEDS: Aspirin 81 MG TAB.CHEW PO SCH (08:05)
[2018-03-29] MEDS: Dexmedetomidine HCl 400 MCG/100 ML MLS IVC SCH (08:06)
--- NOTE | 2018-03-29 11:34 | Internal Med Progress Note ---
Date of Encounter: 03/29/18 Time of Encounter: 11:30 - Assessment and plan (1) Alcohol withdrawal Current Visit: Yes Status: Acute Assessment and plan: Patient has symptoms of alcohol withdraw. Significant alcohol history with many withdrawal hospitalizations. Continue Librium (started at 50 mg TID but needed increased to 75 mg TID on 03/26 , then increased to 75 mg TID). Increase Librium to 75 mg QID Stop Precedex drip now. Qualifiers: Complication of substance-induced condition: with delirium Qualified Code(s ): F10.231 - Alcohol dependence with withdrawal delirium (2) Diarrhea Current Visit: No Status: Resolved Assessment and plan: Resolved, probably withdrawal related Qualifiers: Diarrhea type: unspecified type Qualified Code(s): R19.7 - Diarrhea, unspecified (3) COPD (chronic obstructive pulmonary disease) Current Visit: No Status: Chronic Assessment and plan: Stable. Continue home medications Qualifiers: COPD type: unspecified COPD Qualified Code(s): J44.9 - Chronic obstructive pulmonary disease, unspecified (4) Migraine Current Visit: No Status: Acute Assessment and plan: Continue home medications Avoid sedating medications Will avoid toradol based on his history Qualifiers: Migraine type: without aura Status migrainosus presence: without status migrainosus Intractability: intractable Qualified Code(s): G43.019 - Migraine without aura, intractable, without status migrainosus (5) DVT prophylaxis Current Visit: No Status: Acute Assessment and plan: Heparin subcutaneously - Time Spent With Patient Total time spent is greater than 50% in coordination of care (as documented) at patient's floor/unit and/or counseling patient: - Subjective Interval history: Patient was severely agitated overnight, night time nurse maxed out Precedex drip. - Constitutional Vitals: Temp Pulse Resp BP Pulse Ox 97.6 F 65 18 168/99 97 03/29/18 07:29 03/29/18 07:29 03/29/18 07:55 03/29/18 07:29 03/29/18 07:55 General appearance: Present: A&O X 3, no acute distress, answers questions appropriately Exam: Sitting up, leaning to left CVS: rrr Lungs: CTAB Abd: NT/ND Ext: no edema Internal Medicine: Result - Labs CBC & Chem 7: 03/28/18 00:39 03/29/18 02:46 Labs: [facility] 03/29/18 02:46 Sodium 138 Potassium 3.6 Chloride 110 H Carbon Dioxide 17 L BUN 15 Creatinine 0.82 Glucose 108 H Calcium 9.4 - ABG Interpretation ABG results: PT/INR, D-dimer PT 12.1 Seconds (9.4-12.1) 03/24/18 02:35 Consult Discharge Plan - Plan Referrals: Ramiro Dexter DO [Resident] - 04/14/18 9:00 am (new get established. Please take your Picture ID, INS card and a list of meds including over the counter with you to your appointment. Show up 15 mins early. If you need to cancel please call [phone] 24hours prior to your appontment.)
[2018-03-29] MEDS: Topiramate 25 MG TABLET PO SCH (20:13)
[2018-03-30] MEDS: *HR* LORazepam 2 MG/ML VIAL IVP PRN ×7 (00:14→23:49)
[2018-03-30 05:17] LABS: BUN/Creatinine Ratio 15 (6-26); Blood Urea Nitrogen 16 mg/dL (8-23); Calcium 9.5 mg/dL (8.6-10.3); Carbon Dioxide 18 mEq/L (23-29); Chloride 109 mEq/L (98-107); Glucose 98 mg/dL (70-105); Osmolality,Calculated 291 (280-300); Potassium 3.2 mEq/L (3.5-5.1); Sodium 140 mEq/L (136-145); eGFR For African Americans > 60 (> 60); eGFR For Non-African Americans > 60 (> 60)
[2018-03-30] MEDS: Gabapentin 400 MG CAPSULE PO SCH ×3 (07:48→20:21)
[2018-03-30] MEDS: Magnesium Oxide 400 MG TABLET PO SCH (07:48)
[2018-03-30] MEDS: Lactobacillus 1 EACH CAP.SPRINK PO SCH ×2 (07:48→20:20)
[2018-03-30] MEDS: Cholecalciferol (D-3) 1,000 UNIT TABLET PO SCH (07:48)
[2018-03-30] MEDS: Cyanocobalamin (B-12) 1,000 MCG TABLET PO SCH (07:48)
[2018-03-30] MEDS: Folic Acid 1 MG TABLET PO SCH (07:48)
[2018-03-30] MEDS: Aspirin 81 MG TAB.CHEW PO SCH (07:49)
[2018-03-30] MEDS: amLODIPine 5 MG TABLET PO SCH (07:49)
[2018-03-30] MEDS: Thiamine (B-1) 100 MG TABLET PO SCH (07:49)
[2018-03-30] MEDS: Nicotine 21 MG PATCH.TD24 TD SCH (07:49)
[2018-03-30] MEDS: Budesonide/Formoterol 160/4.5 MDI IH SCH ×2 (08:03→21:06)
[2018-03-30] MEDS: SUMAtriptan succinate 25 MG TABLET PO PRN ×2 (09:45→18:02)
--- NOTE | 2018-03-30 13:30 | Internal Med Progress Note ---
Date of Encounter: 03/30/18 Time of Encounter: 13:28 - Assessment and plan (1) Alcohol withdrawal Current Visit: Yes Status: Acute Assessment and plan: Symptoms are improving overall. Continue Librium at current dose. We will begin to wean tomorrow if symptoms remain well controlled. Replace electrolytes. Continue vitamin supplements and folic acid. Qualifiers: Complication of substance-induced condition: with delirium Qualified Code(s ): F10.231 - Alcohol dependence with withdrawal delirium (2) Migraine Current Visit: Yes Status: Acute Assessment and plan: On Imitrex. If symptoms are not controlled, will place him on Fioricet. Qualifiers: Migraine type: without aura Status migrainosus presence: without status migrainosus Intractability: intractable Qualified Code(s): G43.019 - Migraine without aura, intractable, without status migrainosus (3) Diarrhea Current Visit: Yes Status: Resolved Qualifiers: Diarrhea type: unspecified type Qualified Code(s): R19.7 - Diarrhea, unspecified (4) COPD (chronic obstructive pulmonary disease) Current Visit: Yes Status: Chronic Assessment and plan: Not in acute exacerbation. Continue to use bronchodilators as needed Qualifiers: COPD type: unspecified COPD Qualified Code(s): J44.9 - Chronic obstructive pulmonary disease, unspecified (5) DVT prophylaxis Current Visit: Yes Status: Acute Assessment and plan: Continue place patient on subcutaneous heparin - Time Spent With Patient Total time spent is greater than 50% in coordination of care (as documented) at patient's floor/unit and/or counseling patient: - Subjective Interval history: Patient was seen earlier today. He was complaining of generalized body aches all over and severe headache. He denies any hallucinations. Does have tremors. Is anxious. His withdrawal symptoms appear to be doing better with his current doses of Librium. He is requiring less amount of intravenous Ativan today. - Constitutional Vitals: Temp Pulse Resp BP Pulse Ox 98.9 F 104 20 129/96 95 03/30/18 11:06 03/30/18 11:06 03/30/18 11:06 03/30/18 11:06 03/30/18 11:06 General appearance: Present: cooperative, mild distress, A&O X 3, no acute distress, answers questions appropriately - Neck Neck exam general surgery: Present: supple, trachea midline. Absent: lymphadenopathy - Respiratory Respiratory exam: Present: CTAB. Absent: accessory muscle use, rales, rhonchi, wheezes - Cardiovascular Cardiovascular exam: Present: RRR, +S1, +S2. Absent: diastolic murmur, gallop, rubs, systolic murmur - GI/Abdominal GI/Abdominal exam: Present: normal bowel sounds, soft, no peritoneal signs. Absent: distended, tenderness - Extremities Exam Extremities exam: Present: warm, radial pulses palpable and symmetrical. Absent : calf tenderness, cyanotic, pedal edema - Neurological Exam Neurological exam: Present: alert, oriented X3, no focal deficits. Absent: facial droop, speech deficit Additional comments: Tremors present - Skin Skin exam: Present: dry, intact Internal Medicine: Result - Labs CBC & Chem 7: 03/28/18 00:39 03/30/18 04:30 Labs: BMP 03/30/18 04:30 Sodium 140 Potassium 3.2 L Chloride 109 H Carbon Dioxide 18 L BUN 16 Creatinine 1.10 Glucose 98 Calcium 9.5 - ABG Interpretation ABG results: PT/INR, D-dimer PT 12.1 Seconds (9.4-12.1) 03/24/18 02:35 Consult Discharge Plan - Plan Referrals: Ramiro Dexter DO [Resident] - 04/14/18 9:00 am (new get established. Please take your Picture ID, INS card and a list of meds including over the counter with you to your appointment. Show up 15 mins early. If you need to cancel please call [phone] 24hours prior to your appontment.)
[2018-03-30] MEDS ORDERED: Acetaminophen/Butalbital/CaffeineTABLET PO PRN (13:32)
[2018-03-30] MEDS: *HR* Heparin 5,000 UNIT/ML VIAL SQ SCH (16:31)
[2018-03-30] MEDS ORDERED: diazePAM 10 MG/2 ML SYRINGE IVP STA (20:00)
[2018-03-30] MEDS: Topiramate 25 MG TABLET PO SCH (20:21)
[2018-03-31] MEDS: *HR* LORazepam 2 MG/ML VIAL IVP PRN ×4 (00:30→11:24)
[2018-03-31 03:40] LABS: Basophils % 0.5 %; Eosinophils # 0.1 K/mcL (0.0-0.6); Eosinophils % 2.5 %; Hematocrit 35.8 % (37.5-50.1); Hemoglobin 11.4 g/dL (12.9-16.9); Immature Granulocytes % 0.5 % (0-4); Lymphocytes # 0.9 K/mcL (0.6-4.6); Lymphocytes % 16.2 %; Mean Corpuscular HGB Conc 31.8 g/dL (31.6-35.5); Mean Corpuscular Hemoglobin 29.5 pg (28.0-33.3); Mean Corpuscular Volume 92.7 fL (83.0-100.0); Mean Platelet Volume 11.2 fL (9.4-12.4); Monocytes # 0.7 K/mcL (0.0-1.3); Monocytes % 13.2 %; Neutrophils # 3.8 K/mcL (1.6-8.9); Platelet Count 131 K/mcL (140-400); Red Blood Count 3.86 M/mcL (4.19-5.50); Red Cell Distribution Width 17.2 % (11.5-14.5); Segmented Neutrophils % 67.1 %
[2018-03-31 04:03] LABS: BUN/Creatinine Ratio 14 (6-26); Blood Urea Nitrogen 15 mg/dL (8-23); Calcium 9.4 mg/dL (8.6-10.3); Carbon Dioxide 19 mEq/L (23-29); Chloride 109 mEq/L (98-107); Glucose 106 mg/dL (70-105); Magnesium 1.7 mg/dL (1.6-2.6); Osmolality,Calculated 287 (280-300); Phosphorous 2.6 mg/dL (2.7-4.5); Potassium 3.4 mEq/L (3.5-5.1); Sodium 138 mEq/L (136-145); eGFR For African Americans > 60 (> 60); eGFR For Non-African Americans > 60 (> 60)
[2018-03-31] MEDS: *HR* Heparin 5,000 UNIT/ML VIAL SQ SCH (05:33)
[2018-03-31] MEDS: Budesonide/Formoterol 160/4.5 MDI IH SCH (07:41)
[2018-03-31] MEDS: Nicotine 21 MG PATCH.TD24 TD SCH (08:29)
[2018-03-31] MEDS: Cyanocobalamin (B-12) 1,000 MCG TABLET PO SCH (08:30)
[2018-03-31] MEDS: amLODIPine 5 MG TABLET PO SCH (08:30)
[2018-03-31] MEDS: Gabapentin 400 MG CAPSULE PO SCH (08:30)
[2018-03-31] MEDS: Cholecalciferol (D-3) 1,000 UNIT TABLET PO SCH (08:30)
[2018-03-31] MEDS: Lactobacillus 1 EACH CAP.SPRINK PO SCH (08:30)
[2018-03-31] MEDS: Magnesium Oxide 400 MG TABLET PO SCH (08:31)
[2018-03-31] MEDS: Aspirin 81 MG TAB.CHEW PO SCH (08:31)
[2018-03-31] MEDS: Folic Acid 1 MG TABLET PO SCH (08:31)
[2018-03-31] MEDS: Thiamine (B-1) 100 MG TABLET PO SCH (08:31)
[2018-03-31 11:15] VITALS: BP 116/89
[2018-03-31] MEDS: SUMAtriptan succinate 25 MG TABLET PO PRN (11:24)
--- NOTE | 2018-03-31 14:03 | Discharge Summary ---
- NOTES TO OUTPATIENT PROVIDER Notes to Outpatient Provider: Patient admitted here for alcohol intoxication and withdrawal. Was treated for alcohol withdrawal with Librium, Ativan per [facility] protocol. He was also feeling very weak and was evaluated by physical therapy and recommended placement to skilled rehabilitation. While this was being arranged, patient decided to leave the hospital AGAINST MEDICAL ADVICE. Date of Encounter: 03/31/18 Time of Encounter: 14:02 - Discharge Diagnosis (1) Alcohol withdrawal Priority: Primary Status: Acute Qualifiers: Complication of substance-induced condition: with delirium Qualified Code(s ): F10.231 - Alcohol dependence with withdrawal delirium (2) Migraine Priority: Secondary Status: Acute Qualifiers: Migraine type: without aura Status migrainosus presence: without status migrainosus Intractability: intractable Qualified Code(s): G43.019 - Migraine without aura, intractable, without status migrainosus (3) Diarrhea Priority: Secondary Status: Resolved Qualifiers: Diarrhea type: unspecified type Qualified Code(s): R19.7 - Diarrhea, unspecified (4) COPD (chronic obstructive pulmonary disease) Priority: Secondary Status: Chronic Qualifiers: COPD type: unspecified COPD Qualified Code(s): J44.9 - Chronic obstructive pulmonary disease, unspecified (5) DVT prophylaxis Priority: Secondary Status: Acute Hospital course: Mr. Chen is a 62 year old male patient with history of alcohol abuse, depression, anxiety, COPD, hypertension, migraine headaches who has had multiple hospitalizations here for alcoholism and alcohol withdrawal presented to the hospital here with Complains of nausea and vomiting along with the headache. He was hospitalized here for alcohol withdrawal and treated per [facility] protocol. He has been here for about a week and was slowly improving. He has been on Librium for about 4 days now. He was evaluated by physical therapy and recommended placement to skilled rehabilitation. He has been accepted to skilled rehabilitation and was supposed to be discharged tomorrow. However he wished to leave the hospital AMA and go home today. He understands the risks of his decision that still wishes to go home. He has signed necessary paperwork and will leave AMA. He is advised to return to ER if he wishes to get treated again. Discharge discussed with: nurse - Time Spent with Patient Total time spent providing and/or coordinating discharge services: Less than 30 minutes (20 min) - Discharge Medications Home Medications: Amlodipine Besylate 10 mg PO DAILY 12/06/17 [History] Budesonide/Formoterol 160/4.5 [Symbicort 160/4.5] 2 puff IH BID 12/06/17 [ History] Lipase/Protease/Amylase [Creon Dr 12,000 Units Capsule] 3 cap PO TIDWM 12/06/17 [History] Omeprazole [PriLOSEC] 20 mg PO DAILY 12/06/17 [History] Albuterol Sulfate [Albuterol Inhaler] 2 puff IH Q4H PRN 12/13/17 [History] Cholecalciferol (D-3) [Vitamin D] 1,000 unit PO DAILY 12/13/17 [History] Cyanocobalamin (Vitamin B-12) [Vitamin B-12] 500 mcg PO DAILY 12/13/17 [History] Folic Acid 1 mg PO DAILY 12/13/17 [History] L. Acidophilus/Pectin, Keller [Acidophilus Probiotic Capsule] 1 each PO BID [History] Magnesium Oxide [Mag-Ox] 400 mg PO DAILY 12/13/17 [History] Thiamine (B-1) [Vitamin B-1] 100 mg PO DAILY 12/13/17 [History] Escitalopram [Lexapro] 10 mg PO DAILY #30 tablet 12/24/17 [Rx] SUMAtriptan succinate [Imitrex] 25 mg PO Q2H PRN 01/07/18 [History] Aspirin 81 mg PO DAILY #30 tab.chew 03/04/18 [Rx] Atorvastatin [Lipitor] 20 mg PO HS #60 tablet 03/04/18 [Rx] Lisinopril 5 mg PO DAILY #30 tablet 03/04/18 [Rx] Gabapentin [Neurontin] 400 mg PO TID #21 capsule 03/13/18 [Rx] Quetiapine Fumarate [Seroquel] 200 mg PO HS #7 tablet 03/13/18 [Rx] Topiramate 25 mg PO DAILY #7 tablet 03/13/18 [Rx] Allergies/Adverse Reactions: 3 Allergy/AdvReac Type Severity Reaction Status Date / Time Buspirone [From BuSpar] AdvReac See Verified 03/11/18 20:07 Comments tramadol AdvReac See Verified 03/11/18 20:07 Comments Date of admission: 03/24/18 03:19 Primary care physician: PCP NONE Consults: 03/30/18 09:38 Consult to Physical Therapy [CONS] Routine Comment: Evaluate, develop and implement POC Reason for Consult: Weakness Does patient have active BEDREST order?: No Is patient medically & hemodynamically stable?: Yes 03/30/18 09:40 Consult to [employer] [CONS] Routine Reason for SW Consult: Possible placement/rehab for ETOH 03/30/18 09:48 OT [Consult to Occupational Therapy] [CONS] Routine Comment: Evaluate, develop and implement POC Reason for Consult: Weakness. Difficulty holding cups Does patient have active BEDREST order?: No Is patient medically & hemodynamically stable?: Yes Discharging clinician: Emile Carranza Anticipated date of discharge: 03/31/18 - Constitutional Vitals: Temp Pulse Resp BP Pulse Ox 98.9 F 88 21 116/89 98 03/31/18 11:14 03/31/18 11:55 03/31/18 11:14 03/31/18 11:14 03/31/18 11:14 General appearance: Present: cooperative, mild distress, A&O X 3, no acute distress, answers questions appropriately - Respiratory Respiratory exam: Present: CTAB. Absent: accessory muscle use, rales, rhonchi, wheezes - Cardiovascular Cardiovascular exam: Present: RRR, +S1, +S2. Absent: diastolic murmur, gallop, rubs, systolic murmur - Patient Status Disposition: Left Against Medical Advice Condition: Fair Functional capacity at discharge: independent ambulation - Discharge Instructions Follow Up With: Ramiro Dexter DO [Resident] - 04/14/18 9:00 am (new get established. Please take your Picture ID, INS card and a list of meds including over the counter with you to your appointment. Show up 15 mins early. If you need to cancel please call [phone] 24hours prior to your appontment.) Forms: ED Satisfaction Letter - VTE Documentation of Mechanical Device: Intermittent pneumatic compression device
== END 2018-03-31 14:40 | disposition left against medical advice (07) | DRG 894 ==
LOC: ICNU 23:43 → EMEROO 23:43 → ICNU 03-24 02:52 → SUATTDRO 03-24 03:19 → 2NNU 03-24 19:24
PROVIDERS: ADMIT Internal Medicine; ATTEND Internal Medicine